=== PATIENT | male | born 1980 | race Caucasian/White ===

== ENCOUNTER 2022-10-12 06:56 | Day surgery (SDC) | payer OTHER, SELFPAY ==
[2022-10-12] VITALS (9 sets, daily range): BP systolic 108–169; BP diastolic 56–112; PULSE 86–93; RESP 16–22; TEMP 36.2–36.6; O2SAT 91–99; BMI 50.8
[2022-10-12 07:07] LABS: Basophils Absolute Auto 0.1 10^3/uL (0.0-0.1); Basophils Percent Auto 0.8 % (0.2-2.0); Eosinophils Absolute Auto 0.3 10^3/uL (0.0-0.7); Eosinophils Percent Auto 3.4 % (0.9-7.0); Hematocrit 40.6 % (42.0-54.0); Hemoglobin 13.5 g/dL (14.0-18.0); Immature Granulocytes Abs Auto 0.05 10^3/uL (0.00-0.03); Immature Granulocytes Pct Auto 0.7 % (0.0-0.5); Lymphocytes Absolute Auto 1.7 10^3/uL (1.2-3.8); Lymphocytes Percent Auto 21.9 % (20.5-60.0); Mean Corpuscular HGB Conc 33.3 g/dL (29.9-35.2); Mean Corpuscular Volume 93.3 fL (80.0-94.0); Monocytes Absolute Auto 0.6 10^3/uL (0.3-0.8); Monocytes Percent Auto 7.3 % (1.7-12.0); Neutrophils Absolute Auto 5.1 10^3/uL (1.4-6.5); Neutrophils Percent Auto 65.9 % (43.0-75.0); Platelet Count 225 10^3/uL (150-450); Red Blood Count 4.35 10^6/uL (4.70-6.10); Red Cell Distribution Width 13.1 % (11.0-15.0); White Blood Count 7.7 10^3/uL (4.0-11.0)
[2022-10-12 07:37] LABS: Glucometer 223 mg/dL (74-106)
[2022-10-12] MEDS: INSULIN ASPART 300 UNIT/3 ML PEN SUBQ (08:11)
[2022-10-12] MEDS: CEFAZOLIN SODIUM/DEXTROSE,ISO 2 GM/50 ML PIGGYBACK IV (08:14)
[2022-10-12] MEDS: LACTATED RINGER'S SOLUTION 1,000 ML 50 ML IV ×2 (08:14→10:46)
--- NOTE | 2022-10-12 10:21 | XR_ITS ---
The [address] [address] Patient Name: JANETH MCKEON MRN: [facility]:[id number] date: 1980 Sex: M Assigned Patient Location: [facility] Current Patient Location: Accession/Order Number: [id number] Exam Date: 10/12/2022 11:15 Report Date: 10/12/2022 15:30 At the request of: KAYLA YEBOAH Procedure: XR foot LT min 3V PROCEDURE: XR foot LT min 3V HISTORY: post-op COMPARISON: XR foot 10/12/2022 intraoperative images, 10/06/2022. FINDINGS: BONES:Mechanical fusion of the first metatarsophalangeal joint via dorsal plate and screws. No hardware fracture or loosening. No acute bone fracture or dislocation. Remote traumatic changes of the second distal phalanx. SOFT TISSUES:Dorsal medial soft tissue swelling and subcutaneous air consistent with post surgery. EFFUSION:None visible. OTHER: Negative. IMPRESSION: 1. Stable surgical changes compared to intraoperative images. Electronically authenticated by: GISSEL RUBIO Date: 10/12/2022 15:30
--- NOTE | 2022-10-12 10:33 | XR_ITS ---
[address] [address] Patient Name: JANETH MCKEON MRN: [facility]:[id number] date: 1980 Sex: M Assigned Patient Location: [facility] Current Patient Location: [facility] Accession/Order Number: [id number] Exam Date: 10/12/2022 10:33 Report Date: 10/12/2022 15:58 At the request of: NATANAEL MARAVILLA Procedure: XR foot LT 2V PROCEDURE: XR foot LT 2V HISTORY: LEFT FOOT PAIN COMPARISON: XR foot left 10/06/2022 FINDINGS: BONES:Multiple intraoperative operative spot fluoroscopic images demonstrate fusion of the first metatarsophalangeal joint via dorsal plate and screws. SOFT TISSUES:Expected intraoperative findings. EFFUSION:None visible. OTHER: Negative. IMPRESSION: 1. Mechanical fusion of the left first metatarsophalangeal joint. Electronically authenticated by: GISSEL RUBIO Date: 10/12/2022 15:58
--- NOTE | 2022-10-12 11:00 | P.ORON_ITS ---
note placed in error
--- NOTE | 2022-10-12 11:01 | P.ORON_ITS ---
Brief Operative Note Date of procedure: 10/12/22 Pre-op diagnosis: left hallux rigidus, hallux valgus, diabetic foot ulcer left great toe Post-op diagnosis: same Procedure: left 1st metatarsal phalangeal joint fusion and hallux interphalangeal joint arthroplasty, application of total contact cast and intraoperative fluoroscopic examination PROCEDURE IN DETAIL: Patient was identified in pre op and consent was reviewed. Correct side and site were identified and marked. Pre-op antibiotics were started. Patient was brought to OR suite and place on table in a supine position. General anesthesia was administered. A tourniquet was applied. Operative extremity was prepped and draped in usual sterile fashion. Formal time-out was performed and the foot/ankle were exsanguinated and tourniquet inflated. Incision created over dorsal aspect of the 1st MPJ. Bleeders coagulated. EHL protected throughout the procedure. Capsulotomy performed and McGlammry elevator inserted into 1st MPJ. Guide Pin place in 1st metatarsal head. Conical reamers used on 1st metatarsal head to remove cartilage and subchondral bone. Guide pin removed. Conical reamers used on proximal phalanx in a similar manner. 2.0 mm drill used to on each side of the joint. The site was irrigated. A stab incision was placed on the medial aspect of the hallux and blunt dissection down to the proximal phalanx base was performed. A guide wire was then used to pin the MPJ in a rectus position under fluoroscopic guidance. Position was checked both on the table and under fluoroscopy. A saw was used to contour the dorsal aspect of the 1st metatarsal and proximal phalanx to accommodate plate fixation. A 3.[address] over the fusion site and temporarily fixed. Then spray pilot holes were drilled for locking 3.5 mm screws which were measured and placed according to the manufactor's standard directions. Again position was checked under fluoroscopy as well as on the table. Temporary fixation was removed and additional screws were placed. A 3.5 mm cannulated headed screw was inserted over the previously placed guide wire accordingly. Again position of the great toe and hardware placement were checked on the table and under fluoroscopy. The incision was then extended distally and dissection allowed exposure of the interphalangeal joint. A sagittal saw was use to remove the portion of the distal phalanx within the joint. Care was taken to remove slightly more bone medially to allow for correction of great toe deformity. The surgical site was irrigated with copious amounts of sterile saline. The incision was then closed in layers. The tourniquet was deflated and a prompt hyperemic response was noted. A dry sterile dressing consisting of Xeroform on the incisions followed by 4 x 4 gauze, ABDs, and Kerlix were applied. stockinette was applied along with felt padding which was used to pad all bony prominences. Then a total contact cast was applied accordingly using the TCC-EZ system. The foot and ankle were held in neutral position while the cast dried. FINDINGS: severe degenerative changes of the 1st metatarsophalangeal joint was noted. Bone quality was relatively soft and consistent with osteopenia but there is no sign of infection. Valgus deformity of the great toe centered at the interphalangeal joint. Ulceration noted on the plantar medial aspect of the great toe full-thicknessinfection and no deep soft tissue or bone exposure. POSTOPERATIVE PLAN: Discharge home under family's care Post op instructions provided verbally and written prescription(s) were placed in chart partial protected weightbearing in a cast for six weeks Follow-up in 1 week Implants: Medline 3.5 mm 1st MTPJ plate & 3.5 mm interfrag Anesthesia: other (General & regional) Surgeon: Jesus Feldman Outsole Compressor: Gunner Tyler Estimated blood loss (mL): 10 Condition: stable Disposition: PACU Preoperative Details Surgery: left 1st metatarsal phalangeal joint fusion & IPJ arthroplasty Reason for procedure: patient is a 42-year-old male with type 2 diabetes, foot ulcer, neuropathy and history of nontraumatic amputation. He has been treated with local wound care for a full-thickness ulceration on his left great toe for several months now and has not seen much progress. He has had prior cheilectomy of the 1st metatarsal phalangeal joint and arthroplasty of the IPJ for wound a dislocation previously. He did well after that surgery and the wound ultimately healed however recurred 3+ months ago. Recent x-ray showed significant degenerative changes of the 1st metatarsophalangeal joint and deformity at the interphalangeal joint. Due to his failure to respond to local wound care and he wished to proceed with surgical intervention. He was educated on all potential risks and benefits particularly potential complications include but not limited to infection, nonunion, delayed union, malunion, pain, bleeding, recurrent ulceration, need for additional surgery. Patient is at high risk of amputation and complication especially given that he has an existing wound and his diabetes is not well controlled. Surgeon: Jesus Feldman Date of surgery: 10/12/22 Location: left 1st metatarsal phalangeal joint and interphalangeal joint Current medication(s): reviewed, see home medication list Use of anticoagulation agents: No Patient history: Reports diabetes
[2022-10-12 11:02] LABS: Glucometer 219 mg/dL (74-106)
== END 2022-10-12 12:12 | disposition home or self-care (01) ==
PROVIDERS: PCP Family Medicine; Visit Provider Podiatrist Foot & Ankle Surgery
PROC: (CPT 28289; principal; 2022-10-12 08:35)
DX: M20.22 Hallux rigidus, left foot (principal); M20.12 Hallux valgus (acquired), left foot; M85.88 Other specified disorders of bone density and structure, other site; I10 Essential (primary) hypertension; E78.00 Pure hypercholesterolemia, unspecified; E11.621 Type 2 diabetes mellitus with foot ulcer; L97.522 Non-pressure chronic ulcer of other part of left foot with fat layer exposed; M21.42 Flat foot [pes planus] (acquired), left foot; Z89.421 Acquired absence of other right toe(s); Z79.82 Long term (current) use of aspirin; Z79.4 Long term (current) use of insulin; Z79.84 Long term (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 oral hypoglycemic drugs; Z79.899 Other long term (current) drug therapy
CPT/HCPCS: 28289; 28750; 36415; 73620; 73630; 76000; 82948; 85025; C1713; J2704

== ENCOUNTER 2022-10-19 12:52 | Outpatient (OUT) | payer OTHER, SELFPAY | END 2022-10-19 12:53 | LOC: WC 12:52 | PROVIDERS: PCP Family Medicine; Visit Provider Physician Assistant | DX: E11.621 Type 2 diabetes mellitus with foot ulcer (principal); L97.421 Non-pressure chronic ulcer of left heel and midfoot limited to breakdown of skin; L97.522 Non-pressure chronic ulcer of other part of left foot with fat layer exposed; E11.40 Type 2 diabetes mellitus with diabetic neuropathy, unspecified; L60.3 Nail dystrophy; L60.8 Other nail disorders | CPT/HCPCS: 29445 ==

== ENCOUNTER 2022-10-26 11:11 | Outpatient (OUT) | payer OTHER, SELFPAY | END 2022-10-26 11:12 | disposition home or self-care (01) | LOC: WC 11:11 | PROVIDERS: PCP Family Medicine; Visit Provider Podiatrist Foot & Ankle Surgery | DX: E11.621 Type 2 diabetes mellitus with foot ulcer (principal); L97.522 Non-pressure chronic ulcer of other part of left foot with fat layer exposed | CPT/HCPCS: 29445 ==

== ENCOUNTER 2022-11-03 10:10 | Outpatient (OUT) | payer OTHER, SELFPAY | END 2022-11-03 10:11 | disposition home or self-care (01) | LOC: WC 10:10 | PROVIDERS: PCP Family Medicine; Visit Provider Podiatrist Foot & Ankle Surgery | DX: E11.621 Type 2 diabetes mellitus with foot ulcer (principal); L97.522 Non-pressure chronic ulcer of other part of left foot with fat layer exposed; L97.412 Non-pressure chronic ulcer of right heel and midfoot with fat layer exposed; L97.421 Non-pressure chronic ulcer of left heel and midfoot limited to breakdown of skin; E11.40 Type 2 diabetes mellitus with diabetic neuropathy, unspecified; E11.65 Type 2 diabetes mellitus with hyperglycemia; M20.20 Hallux rigidus, unspecified foot; I10 Essential (primary) hypertension; L60.3 Nail dystrophy; L60.8 Other nail disorders; M21.42 Flat foot [pes planus] (acquired), left foot; E78.01 Familial hypercholesterolemia; E66.01 Morbid (severe) obesity due to excess calories | CPT/HCPCS: 11042 ==

== ENCOUNTER 2022-11-17 10:47 | Outpatient (OUT) | payer OTHER, SELFPAY ==
--- NOTE | 2022-11-17 11:14 | XR_ITS ---
[address] [address] Patient Name: JANETH MCKEON MRN: [id number] date: 1980 Sex: M Assigned Patient Location: Current Patient Location: Accession/Order Number: [id number] Exam Date: 11/17/2022 11:14 Report Date: 11/17/2022 11:48 At the request of: NATANAEL MARAVILLA Procedure: XR foot LT min 3V PROCEDURE: XR foot LT min 3V HISTORY: LEFT FOOT PAIN COMPARISON: XR foot left 10/12/2022 FINDINGS: BONES:Mechanical fusion of the first metatarsophalangeal joint via dorsal plate and screws; no evidence of hardware fracture loosening. Lateral subluxation of the first distal metatarsal relation to the proximal metatarsal. Osseous destruction or posttraumatic changes of the second toe distal phalanx; unchanged. Complete loss of the plantar arch. Moderate degenerative joint disease of the midfoot. SOFT TISSUES:Mild dorsal soft tissue swelling. EFFUSION:None visible. OTHER: Negative. XR/XR foot LT min 3V IMPRESSION: 1. Stable surgical changes without evidence of hardware failure or change in alignment. 2. Marked pes planus. 3. Stable degenerative or posttraumatic changes. Electronically authenticated by: GISSEL RUBIO Date: 11/17/2022 11:48
== END 2022-11-17 10:48 | disposition home or self-care (01) ==
LOC: WC 10:48
PROVIDERS: PCP Family Medicine; Visit Provider Podiatrist Foot & Ankle Surgery
DX: M79.672 Pain in left foot (principal); E11.621 Type 2 diabetes mellitus with foot ulcer; L97.412 Non-pressure chronic ulcer of right heel and midfoot with fat layer exposed
CPT/HCPCS: 11042; 73630

== ENCOUNTER 2022-12-01 10:17 | Outpatient (OUT) | payer OTHER, SELFPAY ==
--- NOTE | 2022-12-01 10:18 | XR_ITS ---
The [address] [address] Patient Name: JANETH MCKEON MRN: [id number] date: 1980 Sex: M Assigned Patient Location: Current Patient Location: Accession/Order Number: [id number] Exam Date: 12/01/2022 10:18 Report Date: 12/01/2022 13:39 At the request of: NATANAEL MARAVILLA Procedure: XR foot LT min 3V EXAM: XR foot LT min 3V HISTORY: LEFT FOOT PAIN COMPARISON: 11/17/2022. TECHNIQUE: 3 views left foot. FINDINGS: No significant change and deformity at the second distal phalanx with similar enhancement of fragments. Remote ORIF of the first MTP joint with intact hardware and no appreciable fusion at this time. Resection arthroplasty of the first IP joint. Pes planus and relatively severe degenerative change of the midfoot. Dorsal calcaneal enthesophytes. Degenerative change of the tibiotalar and subtalar joints. Vascular calcifications. Unchanged soft tissue edema especially at the dorsum of the foot. XR/XR foot LT min 3V IMPRESSION: Similar appearance to prior. No interval acute process. Electronically authenticated by: NEDA GAYTAN Date: 12/01/2022 13:39
== END 2022-12-01 10:18 | disposition home or self-care (01) ==
LOC: WC 10:17
PROVIDERS: PCP Family Medicine; Visit Provider Podiatrist Foot & Ankle Surgery
DX: M79.672 Pain in left foot (principal); E11.621 Type 2 diabetes mellitus with foot ulcer; L97.412 Non-pressure chronic ulcer of right heel and midfoot with fat layer exposed
CPT/HCPCS: 11042; 73630

== ENCOUNTER 2022-12-15 10:14 | Outpatient (OUT) | payer OTHER, SELFPAY | END 2022-12-15 10:15 | disposition home or self-care (01) | LOC: WC 10:14 | PROVIDERS: PCP Family Medicine; Visit Provider Podiatrist Foot & Ankle Surgery | DX: M20.20 Hallux rigidus, unspecified foot (principal); E11.621 Type 2 diabetes mellitus with foot ulcer; L97.412 Non-pressure chronic ulcer of right heel and midfoot with fat layer exposed | CPT/HCPCS: G0463 ==

== ENCOUNTER 2023-01-04 13:46 | Outpatient (OUT) | payer OTHER, SELFPAY ==
--- NOTE | 2023-01-04 | XR_ITS ---
The [address] [address] Patient Name: JANETH MCKEON MRN: [id number] date: 1980 Sex: M Assigned Patient Location: Current Patient Location: Accession/Order Number: [id number] Exam Date: 01/04/2023 14:00 Report Date: 01/05/2023 06:32 At the request of: MARTELL NAVAS Procedure: XR foot LT min 3V PROCEDURE: XR foot LT min 3V HISTORY: LEFT FOOT PAIN ; wound to fourth toe; no known injury COMPARISON: XR foot left 12/01/2022 FINDINGS: BONES:Mechanical fusion of the first metatarsophalangeal joint via dorsal plate and screws; no appreciable hardware fracture or loosening. Stable fracture versus degenerative changes of the second distal phalanx. Moderate degenerative changes of the first distal interphalangeal joint. Complete loss of plantar arch. SOFT TISSUES:Soft tissue swelling of the fourth toe. No visible skin surface defect. EFFUSION:None visible. OTHER: Negative. XR/XR foot LT min 3V IMPRESSION: 1. Soft tissue swelling of fourth toe consistent with patient history. No evidence of osteomyelitis. 2. Stable surgical, posttraumatic, and degenerative changes. Electronically authenticated by: GISSEL RUBIO Date: 01/05/2023 06:32
== END 2023-01-04 13:47 | disposition home or self-care (01) ==
LOC: WC 13:46
PROVIDERS: PCP Family Medicine; Visit Provider Physician Assistant
DX: M79.672 Pain in left foot (principal); E11.621 Type 2 diabetes mellitus with foot ulcer; L97.521 Non-pressure chronic ulcer of other part of left foot limited to breakdown of skin; L97.412 Non-pressure chronic ulcer of right heel and midfoot with fat layer exposed
CPT/HCPCS: 11042; 73630

== ENCOUNTER 2023-01-12 14:46 | Outpatient (OUT) | payer OTHER, SELFPAY | END 2023-01-12 14:47 | disposition home or self-care (01) | LOC: WC 14:46 | PROVIDERS: PCP Family Medicine; Visit Provider Podiatrist Foot & Ankle Surgery | DX: E11.621 Type 2 diabetes mellitus with foot ulcer (principal); L97.521 Non-pressure chronic ulcer of other part of left foot limited to breakdown of skin | CPT/HCPCS: 11042 ==

== ENCOUNTER 2023-01-25 10:09 | Outpatient (OUT) | payer OTHER, SELFPAY | END 2023-01-25 10:10 | disposition home or self-care (01) | LOC: WC 10:10 | PROVIDERS: PCP Family Medicine; Visit Provider Physician Assistant | DX: E11.621 Type 2 diabetes mellitus with foot ulcer (principal); L97.412 Non-pressure chronic ulcer of right heel and midfoot with fat layer exposed; L97.521 Non-pressure chronic ulcer of other part of left foot limited to breakdown of skin; L97.522 Non-pressure chronic ulcer of other part of left foot with fat layer exposed | CPT/HCPCS: G0463 ==

== ENCOUNTER 2023-01-29 09:46 | Outpatient (OUT) | payer OTHER, SELFPAY | END 2023-01-29 09:47 | disposition home or self-care (01) | LOC: WC 09:46 | PROVIDERS: PCP Family Medicine; Visit Provider Podiatrist Foot & Ankle Surgery | DX: E11.621 Type 2 diabetes mellitus with foot ulcer (principal); L97.521 Non-pressure chronic ulcer of other part of left foot limited to breakdown of skin; L97.412 Non-pressure chronic ulcer of right heel and midfoot with fat layer exposed | CPT/HCPCS: 11042 ==

== ENCOUNTER 2023-02-12 11:34 | Outpatient (OUT) | payer OTHER, SELFPAY | END 2023-02-12 11:35 | disposition home or self-care (01) | LOC: WC 11:34 | PROVIDERS: PCP Family Medicine; Visit Provider Podiatrist Foot & Ankle Surgery | DX: E11.621 Type 2 diabetes mellitus with foot ulcer (principal); L97.522 Non-pressure chronic ulcer of other part of left foot with fat layer exposed | CPT/HCPCS: G0463 ==

== ENCOUNTER 2023-02-19 09:58 | Outpatient (OUT) | payer OTHER, SELFPAY ==
--- NOTE | 2023-02-19 | XR_ITS ---
[address] [address] Patient Name: JANETH MCKEON MRN: [id number] date: 1980 Sex: M Assigned Patient Location: Current Patient Location: Accession/Order Number: [id number] Exam Date: 02/19/2023 10:00 Report Date: 02/19/2023 14:55 At the request of: NATANAEL MARAVILLA Procedure: XR foot LT min 3V PROCEDURE: XR foot LT min 3V HISTORY: LEFT FOOT PAIN COMPARISON: XR foot left 12/27/2022 FINDINGS: BONES:Mechanical fusion of the first metatarsophalangeal joint via dorsal plate and screws. Degenerative changes of the first interphalangeal joint and second distal interphalangeal joint. Complete loss of plantar arch. SOFT TISSUES:Soft tissue swelling surrounding the ankle. Mild soft tissue swelling of fourth toe. No radiopaque foreign body. EFFUSION:None visible. OTHER: Negative. XR/XR foot LT min 3V IMPRESSION: 1. No radiographic findings to suggest osteomyelitis. 2. Stable surgical changes and degenerative changes. Electronically authenticated by: GISSEL RUBIO Date: 02/19/2023 14:55
== END 2023-02-19 09:59 | disposition home or self-care (01) ==
LOC: WC 09:58
PROVIDERS: PCP Family Medicine; Visit Provider Podiatrist Foot & Ankle Surgery
DX: E11.621 Type 2 diabetes mellitus with foot ulcer (principal); L97.521 Non-pressure chronic ulcer of other part of left foot limited to breakdown of skin
CPT/HCPCS: 11042; 73630

== ENCOUNTER 2023-03-08 12:45 | Outpatient (REF) | payer OTHER, SELFPAY | END 2023-03-08 12:46 | disposition home or self-care (01) | LOC: LAB 12:45 | PROVIDERS: PCP Family Medicine; Visit Provider Physician Assistant | DX: S91.102A Unspecified open wound of left great toe without damage to nail, initial encounter (principal); S91.105A Unspecified open wound of left lesser toe(s) without damage to nail, initial encounter | CPT/HCPCS: 87070; 87106; 87150; 87186 ==

== ENCOUNTER 2023-03-08 13:56 | Outpatient (OUT) | payer OTHER, SELFPAY | END 2023-03-08 13:57 | disposition home or self-care (01) | LOC: WC 13:56 | PROVIDERS: PCP Family Medicine; Visit Provider Physician Assistant | DX: E11.621 Type 2 diabetes mellitus with foot ulcer (principal); L97.522 Non-pressure chronic ulcer of other part of left foot with fat layer exposed; L97.528 Non-pressure chronic ulcer of other part of left foot with other specified severity | CPT/HCPCS: 11043 ==

== ENCOUNTER 2023-03-09 09:45 | Outpatient (OUT) | payer OTHER, SELFPAY | END 2023-03-09 09:46 | disposition home or self-care (01) | LOC: WC 09:45 | PROVIDERS: PCP Family Medicine; Visit Provider Podiatrist Foot & Ankle Surgery | DX: E11.621 Type 2 diabetes mellitus with foot ulcer (principal); L97.522 Non-pressure chronic ulcer of other part of left foot with fat layer exposed; L97.528 Non-pressure chronic ulcer of other part of left foot with other specified severity | CPT/HCPCS: G0463 ==

== ENCOUNTER 2023-03-16 14:43 | Outpatient (OUT) | payer OTHER, SELFPAY | END 2023-03-16 14:44 | disposition home or self-care (01) | LOC: WC 14:43 | PROVIDERS: PCP Family Medicine; Visit Provider Podiatrist Foot & Ankle Surgery | DX: E11.621 Type 2 diabetes mellitus with foot ulcer (principal); L97.528 Non-pressure chronic ulcer of other part of left foot with other specified severity | CPT/HCPCS: 11042 ==

== ENCOUNTER 2023-04-06 09:45 | Outpatient (OUT) | payer OTHER, SELFPAY | END 2023-04-06 09:46 | disposition home or self-care (01) | LOC: WC 09:45 | PROVIDERS: PCP Family Medicine; Visit Provider Podiatrist Foot & Ankle Surgery | DX: E11.621 Type 2 diabetes mellitus with foot ulcer (principal); L97.528 Non-pressure chronic ulcer of other part of left foot with other specified severity | CPT/HCPCS: 11042 ==

== ENCOUNTER 2023-04-28 09:18 | Outpatient (OUT) | payer OTHER, SELFPAY ==
--- NOTE | 2023-04-28 | XR_ITS ---
The [address] [address] Patient Name: JANETH MCKEON MRN: [id number] date: 1980 Sex: M Assigned Patient Location: Current Patient Location: Accession/Order Number: [id number] Exam Date: 04/28/2023 10:10 Report Date: 04/28/2023 14:26 At the request of: NATANAEL MARAVILLA Procedure: XR foot LT min 3V PROCEDURE: XR foot LT min 3V DATE: 04/28/2023 9:10 AM [employer] COMPARISONS: 02/19/2023 CLINICAL INDICATION: LEFT FOOT BLISTER FINDINGS: There is no evidence of fractures or other acute osseous abnormalities. Surgical fixation hardware is noted of the first metatarsal phalangeal joint, stable. There is widening of the first interphalangeal joint. There is some valgus deformity at this joint space. This is stable in appearance. There is some soft tissue swelling about this first toe. There is slight deformity of the proximal and the lateral aspect of this first proximal phalanx but this was also seen on previous exam. It could represent old or subacute fracture. There is some soft tissue swelling tip of the fourth toe. There is no evidence of erosive osseous lesion or destructive osseous process on these images. There is some deformity of the tip of the second toe stable from previous exam. It appears to represent distal interphalangeal degenerative changes. There is pes planus deformity. There is spurring of the posterior inferior os calcis and of the posterior os calcis, stable. XR/XR foot LT min 3V IMPRESSION: Findings as discussed above. There is no evidence of erosive osseous lesion or destructive osseous process to suggest osteomyelitis on these images. Electronically authenticated by: FERN SOSA Date: 04/28/2023 14:26
--- OUTSIDE RECORDS SUMMARY | 2023-04-28 09:38 | XMS_ITS | CCD ---
Author Name Unknown Address [address] [place] [address] Organization [facility] Care Team Providers Care Employment Appeals Examiner Name Role Phone Link Ortega Unavailable NATANAEL FELDMAN Attending Unavailable NATANAEL FELDMAN Admitting Unavailable WONDERLY, DR NATALIE Lozada Primary Care Unavailable NATANAEL FELDMAN Attending Unavailable NATANAEL FELDMAN Admitting Unavailable WONDERLY, DR NATALIE Lozada Primary Care Unavailable NATANAEL FELDMAN Attending Unavailable NATANAEL FELDMAN Admitting Unavailable WONDERLY, DR NATALIE Lozada Primary Care Unavailable NATANAEL FELDMAN Attending Unavailable NATANAEL FELDMAN Admitting Unavailable WONDERLY, DR NATALIE Lozada Primary Care Unavailable NATANAEL FELDMAN Attending Unavailable NATANAEL FELDMAN Admitting Unavailable WONDERLY, DR NATALIE Lozada Primary Care Unavailable NATANAEL FELDMAN Attending Unavailable NATANAEL FELDMAN Admitting Unavailable WONDERLY, DR NATALIE Lozada Primary Care Unavailable NATANAEL FELDMAN Attending Unavailable NATANAEL FELDMAN Admitting Unavailable NATANAEL FELDMAN Consulting Unavailable WONDERLY, DR NATALIE Lozada Primary Care Unavailable JOY DOBBS Consulting Unavailable NATANAEL FELDMAN Attending Unavailable NATANAEL FELDMAN Consulting Unavailable NATANAEL FELDMAN Admitting Unavailable WONDERLY, DR NATALIE Lozada Primary Care Unavailable FERN SOSA Consulting Unavailable WONDERLY, DR NATALIE Lozada Primary Care Unavailable MARTELL NAVAS Admitting Unavailable MARTELL NAVAS Attending Unavailable MARTELL NAVAS Attending Unavailable WONDERLY, DR NATALIE Lozada Primary Care Unavailable MARTELL NAVAS Admitting Unavailable NATANAEL FELDMAN Attending Unavailable NATANAEL FELDMAN Admitting Unavailable WONDERLY, DR NATALIE Lozada Primary Care Unavailable NATANAEL FELDMAN Attending Unavailable NATANAEL FELDMAN Admitting Unavailable RAMIRO, DR GISSEL Kohli Consulting Unavailable WONDERLY, DR NATALIE Lozada Primary Care Unavailable NATANAEL FELDMAN Consulting Unavailable NATANAEL FELDMAN Attending Unavailable WONDERLY, DR NATALIE Lozada Primary Care Unavailable HIGHLANDER, NATANAEL Marks Admitting Unavailable HIGHLANDER, NATANAEL Marks Attending Unavailable HIGHLANDER, NATANAEL Marks Consulting Unavailable WONDERLY, DR NATALIE Lozada Primary Care Unavailable HIGHLANDER, NATANAEL Marks Admitting Unavailable RAFAEL WHITAKER Consulting Unavailable HIGHLANDER, NATANAEL Marks Attending Unavailable WONDERLY, DR NATALIE Lozada Primary Care Unavailable HIGHLANDER, NATANAEL Marks Admitting Unavailable HIGHLANDER, NATANAEL Marks Attending Unavailable WONDERLY, DR NATALIE Lozada Primary Care Unavailable HIGHLANDER, NATANAEL Marks Admitting Unavailable HIGHLANDER, NATANAEL Marks Attending Unavailable WONDERLY, DR NATALIE Lozada Primary Care Unavailable HIGHLANDER, NATANAEL Marks Admitting Unavailable HIGHLANDER, NATANAEL Marks Admitting Unavailable HIGHLANDER, NATANAEL Marks Attending Unavailable WONDERLY, DR NATALIE Lozada Primary Care Unavailable HIGHLANDER, NATANAEL Marks Attending Unavailable HIGHLANDER, NATANAEL Marks Admitting Unavailable WONDERLY, DR NATALIE Lozada Primary Care Unavailable HIGHLANDER, NATANAEL Marks Attending Unavailable WONDERLY, DR NATALIE Lozada Primary Care Unavailable HIGHLANDER, NATANAEL Marks Admitting Unavailable HIGHLANDER, NATANAEL Marks Attending Unavailable WONDERLY, DR NATALIE Lozada Primary Care Unavailable HIGHLANDER, NATANAEL Marks Admitting Unavailable HIGHLANDER, NATANAEL Marks Attending Unavailable WONDERLY, DR NATALIE Lozada Primary Care Unavailable HIGHLANDER, NATANAEL Marks Admitting Unavailable HIGHLANDER, NATANAEL Marks Attending Unavailable WONDERLY, DR NATALIE Lozada Primary Care Unavailable HIGHLANDER, NATANAEL Marks Admitting Unavailable HIGHLANDER, NATANAEL Marks Attending Unavailable HIGHLANDER, NATANAEL Marks Admitting Unavailable WONDERLY, DR NATALIE Lozada Primary Care Unavailable HIGHLANDER, NATANAEL Marks Attending Unavailable HIGHLANDER, NATANAEL Marks Admitting Unavailable WONDERLY, DR NATALIE Lozada Primary Care Unavailable HIGHLANDER, NATANAEL Marks Attending Unavailable HIGHLANDER, NATANAEL Marks Admitting Unavailable WONDERLY, DR NATALIE Lozada Primary Care Unavailable HIGHLANDER, NATANAEL Marks Attending Unavailable HIGHLANDER, NATANAEL Marks Admitting Unavailable WONDERLY, DR NATALIE Lozada Primary Care Unavailable HIGHLANDER, NATANAEL Marks Attending Unavailable HIGHLANDER, NATANAEL Marks Admitting Unavailable WONDERLY, DR NATALIE Lozada Primary Care Unavailable HIGHLANDER, NATANAEL Marks Attending Unavailable HIGHLANDER, NATANAEL Marks Admitting Unavailable WONDERLY, DR NATALIE Lozada Primary Care Unavailable HIGHLANDER, NATANAEL Marks Attending Unavailable HIGHLANDER, NATANAEL Marks Admitting Unavailable WONDERLY, DR NATALIE Lozada Primary Care Unavailable HIGHLANDER, NATANAEL Marks Attending Unavailable HIGHLANDER, NATANAEL Marks Admitting Unavailable WONDERLY, DR NATALIE Lozada Primary Care Unavailable HIGHLANDER, NATANAEL Marks Attending Unavailable HIGHLANDER, NATANAEL Marks Admitting Unavailable WONDERLY, DR NATALIE Lozada Primary Care Unavailable HIGHLANDER, NATANAEL Makrs Attending Unavailable HIGHLANDER, NATANAEL Marks Admitting Unavailable WONDERLY, DR NATALIE Lozada Primary Care Unavailable MICHELLEANDER, NATANAEL Marks Attending Unavailable HIGHLANDER, NATANAEL Marks Admitting Unavailable WONDERLY, DR NATALIE Lozada Primary Care Unavailable HIGHLANDER, NATANAEL Marks Attending Unavailable HIGHLANDER, NATANAEL Marks Admitting Unavailable WONDERLY, DR NATALIE Lozada Primary Care Unavailable HIGHLANDER, NATANAEL Marks Attending Unavailable HIGHLANDER, NATANAEL Marks Admitting Unavailable WONDERLY, DR NATALIE Lozada Primary Care Unavailable HIGHLANDER, NATANAEL Marks Attending Unavailable WONDERLY, DR NATALIE Lozada Primary Care Unavailable HIGHLANDER, NATANAEL Marks Admitting Unavailable HIGHLANDER, NATANAEL Marks Attending Unavailable HIGHLANDER, NATANAEL Marks Admitting Unavailable WEST, DR FRANCO Adamson Consulting Unavailable WONDERLY, DR NATALIE Lozada Primary Care Unavailable HIGHLANDER, NATANAEL Marks Consulting Unavailable HIGHLANDER, NATANAEL Marks Attending Unavailable WONDERLY, DR NATALIE Lozada Primary Care Unavailable HIGHLANDER, NATANAEL Marks Admitting Unavailable HIGHLANDER, NATANAEL Marks Attending Unavailable HIGHLANDER, NATANAEL Marks Admitting Unavailable WONDERLY, DR NATALIE Lozada Primary Care Unavailable HIGHLANDER, NATANAEL Marks Attending Unavailable WONDERLY, DR NATALIE Lozada Primary Care Unavailable HIGHLANDER, NATANAEL Marks Admitting Unavailable Wonderly, Natalie Primary Care Unavailable Damon Claros Attending Unavailable Damon Claros Admitting Unavailable GLENIS HINSON Attending Unavailable Medications Current Medications Medication Drug Class(es) Dates Sig (Normalized) Sig (Original) 0.25 MG, 0.5 MG Dose 3 ML semaglutide 0.68 MG/ML Pen Injector [Ozempic] (1 source) Start: 01-04-2023 inject 0.5 mg by subcutaneous injection every week Ozempic (0.25 or 0.5 MG/DOSE) 2 MG/3ML 0.5mg Subcutaneous once weekly for 84 days Dec, Active aspirin 81 mg chewable tablet (7 sources) Platelet Aggregation Inhibitor, Nonsteroidal Anti-inflammatory Drug take 1 tablet by mouth every twenty-four hours Aspirin 81 MG 1 tablet Orally Once a day Active atorvastatin 40 mg oral tablet (7 sources) HMG-CoA Reductase Inhibitor take 1 tablet by mouth every twenty-four hours Atorvastatin Calcium 40 MG 1 tablet Orally Once a day Active ertugliflozin 15 mg oral tablet (7 sources) take 1 tablet by mouth every twenty-four hours Steglatro 15 MG 1 tablet Orally Once a day for 90 days Active insulin glargine-yfgn 100 UNT/ML Injectable Solution (2 sources) inject 44 [IU] by subcutaneous injection twice daily, then inject 100 [IU] by subcutaneous injection once daily Insulin Glargine-yfgn 100 UNIT/ML INJECT 44 UNITS UNDER THE SKIN TWICE DAILY DIRECTED MAY TITRATE UP TO 100 UNITS PER DAY for 90 Active insulin lispro 100 unt/ml injectable solution (8 sources) Insulin Analog Insulin Lispro 1 00 UNIT/ML 1:5 carb ratio ac tid. 1:15 corrective scale ac tid (hs if >200 half dose) as directed for 90 days expect up to max 60 units/day Active Insulin Lispro 1 00 UNIT/ML 1:4 carb ratio ac tid. 1:15 corrective scale ac tid (hs if >200 half dose) as directed for 90 days (expect up to 60 units/day) Active lisinopril 20 mg oral tablet (7 sources) Angiotensin Converting Enzyme Inhibitor take 1 tablet by mouth every twenty-four hours Lisinopril 20 MG 1 tablet Orally Once a day Active metFORMIN hydrochloride 500 mg oral tablet (8 sources) Biguanide take 2 tablets by mouth every twelve hours metFORMIN HCl 500 MG 2 tablets Orally Twice a day for 90 days Active OneTouch Verio - (6 sources) Start: 02-19-20 22 OneTouch Verio - Use with One touch verio meter In Vitro 3 times per day for 90 days E11.65 Feb, Active 0.25 mg, 0.5 mg dose 1.5 ml semaglutide 1.34 mg/ml pen injector (4 sources) Start: 06-25-19 23 Ozempic (0.25 or 0.5 MG/DOSE) 2 MG/1.5ML as directed Subcutaneous once weekly for 84 days Jun, Active Semglee 100 UNIT/ML (6 sources) Semglee 100 UNIT /ML 44 units (may titrate up to 100 units per day) Subcutaneous BID for 90 days Active Semglee 100 UNIT /ML 44 units (may titrate up to 100 units per day) Subcutaneous BID for 90 days Expect up to 100 units per day Active Semglee 100 UNIT /ML 44 units (may titrate up to 100 units per day) Subcutaneous BID for 90 day(s) Active Completed/Discontinued Medications Medication Drug Class(es) Dates Sig (Normalized) Sig (Original) 3 ML semaglutide 1.34 MG/ML Pen Injector [Ozempic] (2 sources) inject 1 mL by subcutaneous injection every week Ozempic (1 MG/DOSE) 4 MG/3ML 1 ml SQ Once a week for 28 days Not-Taking cephalexin 500 mg oral capsule (2 sources) Cephalosporin Antibacterial take 1 capsule by mouth every six hours Cephalexin 500 MG 1 capsule Orally every 6 hrs Not-Taking empagliflozin 10 mg oral tablet (2 sources) Sodium-Glucose Cotransporter 2 Inhibitor take 1 tablet by mouth every twenty-four hours Jardiance 10 MG 1 tablet Orally Once a day for 30 day(s) Not-Taking Problems Active Problems Problem Classification Problem Date Documented Da te Episodic/Chronic Acquired foot deformities (2 sources) Hallux rigidus, unspecified foot; Translations: [Hallux rigidus, left foot] Onset: 05-13-2022 Chronic Acquired foot deformities (1 source) Flat foot [pes planus] (acquired), left foot; Translations: [FLAT FOOT PES PLANUS ACQ LT FOOT] Onset: 10-07-2022 Episodic Administrative/social admission (3 sources) Dietary counseling and surveillance Onset: 01-06-2022 Resolved: 01-06-2022 Episodic Chronic ulcer of skin (5 sources) Non-pressure chronic ulcer of other part of unspecified foot with unspecified severity; Translations: [Non-pressure chronic ulcer of other part of left foot with fat layer exposed] Onset: 05-25-2022 Chronic Diabetes mellitus with complications (20 sources) Hyperglycemia due to type 2 diabetes mellitus; Translations: [Type 2 diabetes mellitus with hyperglycemia] Onset: 01-06-2022 Resolved: 01-06-2022 Chronic Disorders of lipid metabolism (12 sources) Hyperlipidemia; Translations: [Hyperlipidemia, unspecified] Onset: 01-06-2022 Resolved: 01-06-2022 Chronic Essential hypertension (11 sources) Hypertensive disorder; Translations: [Essential (primary) hypertension] Onset: 01-06-2022 Resolved: 01-06-2022 Chronic Nutritional deficiencies (7 sources) Vitamin D deficiency; Translations: [Vitamin D deficiency, unspecified] Chronic Nutritional deficiencies (3 sources) Deficiency of other specified B group vitamins Onset: 01-06-2022 Resolved: 01-06-2022 Episodic Open wounds of extremities (1 source) Unspecified open wound, unspecified foot, initial encounter Episodic Other aftercare (7 sources) Long-term current use of 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; 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] Episodic Other aftercare (3 sources) 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 Onset: 01-06-2022 Resolved: 01-06-2022 Episodic Other bone disease and musculoskeletal deformities (5 sources) Acquired absence of right foot; Translations: [ACQUIRED ABSENCE OF RIGHT FOOT] Onset: 11-24-2021 Chronic Other connective tissue disease (4 sources) Pain in left foot; Translations: [PAIN IN LEFT FOOT] Onset: 10-06-2022 Episodic Other nutritional; endocrine; and metabolic disorders (7 sources) Metabolic syndrome X; Translations: [Metabolic syndrome] Chronic Other nutritional; endocrine; and metabolic disorders (14 sources) Body mass index 40+ - severely obese; Translations: [Body mass index (BMI) 50.0-59.9, adult] Chronic Other nutritional; endocrine; and metabolic disorders (1 source) Body mass index (BMI) 45.0-49.9, adult Onset: 01-06-2022 Resolved: 01-06-2022 Chronic Other nutritional; endocrine; and metabolic disorders (2 sources) Body mass index (BMI) 50.0-59.9, adult Chronic Other nutritional; endocrine; and metabolic disorders (1 source) Morbid (severe) obesity due to excess calories; Translations: [MORBID SEVERE OBES D/T EXCESS JIMMY] Onset: 07-06-2022 Chronic Other skin disorders (5 sources) Nail dystrophy; Translations: [NAIL DYSTROPHY] Onset: 11-20-2021 Episodic Past or Other Problems Problem Classification Problem Date Documented Da te Episodic/Chronic Complications of surgical procedures or medical care (5 sources) Disruption of wound, unspecified, initial encounter; Translations: [DISRUPTION WOUND UNS INITIAL ENC] Onset: 12-08-2021 Episodic Other non-traumatic joint disorders (1 source) Pain in left ankle and joints of left foot; Translations: [PAIN IN LEFT ANKLE] Onset: 06-24-2022 Episodic Other skin disorders (5 sources) Corns and callosities; Translations: [CORNS AND CALLOSITIES] Onset: 12-15-2021 Episodic Superficial injury; contusion (4 sources) Blister (nonthermal), right foot, initial encounter; Translations: [BLISTER NONTHERMAL RT FOOT INITIAL] Onset: 12-29-2021 Episodic Results Test Name Value Interpretation Reference Range Facil ity A1C HEMOGLOBINon 01-04-2023 HbA1c (Bld) [Mass fraction] 8.9 % [facility] Other Glucose - FINGER STICKon Glucose [Mass/Vol] 201 mg/dL [facility] Other HbA1c (Bld) [Mass fraction]o n 01-04-2023 A1C HEMOGLOBIN [employer] [facility] [employer] Other PROF CHEM 8 (BAS METB)on Anion gap [Moles/Vol] 14.3 mmol/L Normal [facility] Comment on above: Performed By: #### B MP #### [facility] [address] [address] [address] Lauri Todd Calcium [Mass/Vol] 9.4 mg/dL Normal 8.5-10.1 [facility] Comment on above: Performed By: #### B MP #### [facility] [address] [address] [address] Lauri Todd Chloride [Moles/Vol] 101 mmol/L Normal 98-107 [facility] Comment on above: Performed By: #### B MP #### [facility] [address] [address] [address] Lauri Todd CO2 [Moles/Vol] 26.2 mmol/L Normal 21.0-32.0 [facility] Comment on above: Performed By: #### B MP #### [facility] [address] [address] [address] Lauri Todd Creatinine [Mass/Vol] 0.90 mg/dL Normal 0.70-1.30 [facility] Comment on above: Performed By: #### B MP #### [facility] [address] [address] [address] Lauri Todd EGFR-AF CYMRO >60 Normal >=60 [facility] Comment on above: Performed By: #### B MP #### [facility] [address] [address] [address] Lauri Todd EGFR-NON AF CYMRO >60 Normal >=60 [facility] Comment on above: Performed By: #### B MP #### [facility] [address] [place], [place] [address] Dr. Lauri Todd Glucose [Mass/Vol] 146 mg/dL Critically high 74-106 [facility] Comment on above: Performed By: #### B MP #### [facility] [address] [address] [address] Lauri Todd Potassium [Moles/Vol] 4.5 mmol/L Normal 3.5-5.1 [facility] Comment on above: Performed By: #### B MP #### [facility] [address] [address] [address] Lauri Todd Sodium [Moles/Vol] 137 mmol/L Normal 136-145 [facility] Comment on above: Performed By: #### B MP #### [facility] [address] [address] [address] Lauri Todd Urea nitrogen [Mass/Vol] 16.0 mg/dL Normal 7.0-18.0 [facility] Comment on above: Performed By: #### B MP #### [facility] [address] [address] [address] Lauri Todd Urea nitrogen/Creatinine [Mass ratio] 17.8 mg/mg Normal [facility] Comment on above: Performed By: #### B MP #### [facility] [address] [address] [address] Lauri Todd A1C HEMOGLOBINon 06-25-2022 HbA1c (Bld) [Mass fraction] 8.2 % [facility] Other Glucose - FINGER STICKon Glucose [Mass/Vol] 180 mg/dL [facility] Other HbA1c (Bld) [Mass fraction]o n 06-25-2022 A1C HEMOGLOBIN [employer] Other XR FOOT LT MIN 3 VIEWSon XR FOOT LT MIN 3 VIEWS EXAM: XR ANKLE LT MIN 3 V, XR FOOT LT MIN 3 VIEWS HISTORY: Pain of left ankle joint COMPARISON: None. TECHNIQUE: Frontal, lateral, and oblique views of the left ankle/foot. FINDINGS/IMPRESSION: Mineralization: Within normal limits. Bones: No acute fractures or dislocations. Old medial malleolus avulsion fractures. Additional dysmorphic/chronically fractured appearance of the second distal phalanx, partially evaluated given overlapping lateral view. Ankle mortise appears intact. Small plantar calcaneal spur. Joints: Chronic appearing midfoot collapse, which could indicate early Charcot joint versus advanced pes planus. Additional chronic appearing moderate to moderate central and periarticular erosive changes of the first MTP and IP joints. Soft Tissues: Diffuse soft tissue prominence. Moderate Achilles enthesophyte. Electronically authenticated by: RAFAEL WHITAKER Date: 2022-05-25 11:52 Normal [facility] A1C HEMOGLOBINon 01-06-2022 HbA1c (Bld) [Mass fraction] 7 % [facility] Other Glucose - FINGER STICKon Glucose [Mass/Vol] 148 mg/dL [facility] Other HbA1c (Bld) [Mass fraction]o n 01-06-2022 A1C HEMOGLOBIN [facility] [employer] Other Basic Metabolic Panelon 04-1 Anion gap [Moles/Vol] 20 mmol/L Normal 12-20 [facility] Specialist Comment on above: Result Comment: Wade ctive 05/15/2019 reference range changed. Performed By: #### B MP #### [facility] [address], [place] [id number] Calcium [Mass/Vol] 10.0 mg/dL Normal 8.6-10.[address] [facility] Comment on above: Performed By: #### B MP #### [facility] [address], [place] [id number] Chloride [Moles/Vol] 100 mmol/L Normal 98-[address] [facility] Comment on above: Performed By: #### B MP #### [facility] [address], [place] [id number] CO2 [Moles/Vol] 22 mmol/L Normal 20-31 [facility] Comment on above: Performed By: #### B MP #### [facility] [address], [place] [id number] Creatinine [Mass/Vol] 0.8 mg/dL Normal 0.7-1.4 [facility] Super[facility] [employer] [facility] Comment on above: Performed By: #### B MP #### [facility] [address], [place] [id number] eGFRAA 129 mL/min/1.73m2 Normal >60 [facility] Specialist Comment on above: Performed By: #### B MP #### [facility] [address], [place] [id number] eGFRNAA 107 mL/min/1.73m2 Normal >60 [facility] Specialist Comment on above: Performed By: #### B MP #### [facility] [address], [place] [id number] Glucose [Mass/Vol] 140 mg/dL High 65-99 [facility] Super[facility] [employer] Comment on above: Result Comment: For FASTING Glucose --- ADA reference ranges: Normal 65-99 mg/dl Prediabetes 100-125 Diabetes >/= 126 Performed By: #### B MP #### [facility] [address], [place] [id number] Potassium [Moles/Vol] 4.3 mmol/L Normal 3.5-5.5 [facility] Super[facility] [employer] Comment on above: Performed By: #### B MP #### [facility] [address], [place] [id number] Sodium [Moles/Vol] 137 mmol/L Normal 135-146 [facility] Super[facility] [employer] Comment on above: Performed By: #### B MP #### [facility] [address], [place] [id number] Urea nitrogen [Mass/Vol] 17 mg/dL Normal 7-25 [facility] Super[facility] Comment on above: Performed By: #### B MP #### [facility] [address], [place] [id number] Vital Signs Date Time Vital Sign Value Performing Clinician Facility 01-04-2023 08:45-0400 Body height Link Ortega Other [facility] Other 01-04-2023 08:45-0400 Body mass index (BMI) [Ratio] 51.37 kg/m2 Tondra Mapus Other [facility] Other 01-04-2023 08:45-0400 Body weight 171.82 kg Tondra Mapus Other [facility] Other 01-04-2023 08:45-0400 Diastolic blood pressure 85 mm[Hg] Tondra Mapus Other [facility] Other 01-04-2023 08:45-0400 Respiratory rate 18 /min Tondra Mapus Other [facility] Other 01-04-2023 08:45-0400 SaO2% (BldA) [Mass fraction] 98 % Tondra Mapus Other [facility] Other 01-04-2023 08:45-0400 Systolic blood pressure 150 mm[Hg] Tondra Mapus Other [facility] Other 06-25-2022 09:45-0500 Body height Tondra Mapus Other [facility] Other 06-25-2022 09:45-0500 Body mass index (BMI) [Ratio] 51.14 kg/m2 Tondra Mapus Other [facility] Other 06-25-2022 09:45-0500 Body weight 171.05 kg Tondra Mapus Other [facility] Other 06-25-2022 09:45-0500 Diastolic blood pressure 80 mm[Hg] Tondra Mapus Other [facility] Other 06-25-2022 09:45-0500 Respiratory rate 18 /min Tondra Mapus Other [facility] Other 06-25-2022 09:45-0500 SaO2% (BldA) [Mass fraction] 95 % Tondra Mapus Other [facility] Other 06-25-2022 09:45-0500 Systolic blood pressure 139 mm[Hg] Tondra Mapus Other [facility] Other 01-06-2022 09:45-0400 Body height Tondra Mapus Other [facility] Other 01-06-2022 09:45-0400 Body mass index (BMI) [Ratio] 48.28 kg/m2 Tondra Mapus Other [facility] Other 01-06-2022 09:45-0400 Body weight 161.48 kg Tondra Mapus Other [facility] Other 01-06-2022 09:45-0400 Diastolic blood pressure 71 mm[Hg] Tondra Mapus Other [facility] Other 01-06-2022 09:45-0400 Respiratory rate 20 /min Tondra Mapus Other [facility] Other 01-06-2022 09:45-0400 SaO2% (BldA) [Mass fraction] 95 % Tondra Mapus Other [facility] Other 01-06-2022 09:45-0400 Systolic blood pressure 124 mm[Hg] Tondra Mapus Other [facility] Other Encounters Encounter Date Encounter Type Care Provider Facility Start: 03-24-2023 End: 03-24-2023 ambulatory GLENIS HINSON Not Available Start: 01-04-2023 (DM) Diabetes Tondra Shannon [facility] Start: 01-04-2023 End: 01-04-2023 ambulatory Natalie Hernandez [facility] Other Start: 12-21-2022 End: 12-21-2022 ambulatory Tondra Mapus Other [facility] Other Start: 12-21-2022 Telephone encounter Tondra [facility] Start: 10-12-2022 ambulatory NATANAEL FELDMAN Faci lity:[facility]1 Start: 10-06-2022 End: 10-07-2022 ambulatory NATANAEL Marks [facility] Facility:[facility] Start: 10-01-2022 Encounter for preprocedural cardiovascular examination [facility] Start: 10-01-2022 Encounter for preprocedural laboratory examination [facility] Start: 09-30-2022 End: 10-01-2022 ambulatory NATANAEL Marks [facility] Facility:[facility] Start: 09-30-2022 End: 10-01-2022 Encounter for preprocedural laboratory examination [facility] Facility:[facility] Start: 09-15-2022 End: 09-16-2022 ambulatory NATANAEL Marks [facility] Facility:[facility] Start: 09-10-2022 End: 09-10-2022 ambulatory Tondra Mapus Other [facility] Other Start: 09-10-2022 Telephone encounter Tondra Dayannaus [facility] Start: 08-24-2022 End: 08-25-2022 ambulatory NATANAEL Marks [facility] Facility:[facility]1 Start: 08-10-2022 End: 08-10-2022 ambulatory Tondra Mapus Other [facility] Other Start: 08-10-2022 Telephone encounter Tondra Dayannaus [facility] Start: 08-03-2022 End: 08-04-[address] NATALIE HERNANDEZ Facility:[facility]1 Start: 07-13-2022 End: 07-14-2022 ambulatory MARTELL ELOISE Facility:H1 Start: 06-30-2022 End: 07-01-2022 ambulatory PETER D HIGHLANDER Facility:H1 Start: 06-25-2022 (DM) Diabetes Tondra Shannon [facility] Start: 06-25-2022 End: 06-25-2022 ambulatory Tondra Dayannaus Other [facility] Other Start: 06-16-2022 End: 06-17-2022 ambulatory PETER D HIGHLANDER Facility:H1 Start: 06-08-2022 End: 06-09-2022 ambulatory PETER D HIGHLANDER Facility:H1 Start: 05-25-2022 End: 05-26-2022 ambulatory PETER D HIGHLANDER Facility:H1 Start: 05-12-2022 End: 05-13-2022 ambulatory PETER D HIGHLANDER Facility:H1 Start: 04-30-2022 End: 05-01-2022 ambulatory PETER D HIGHLANDER Facility:H1 Start: 04-24-2022 End: 04-25-2022 ambulatory PETER D HIGHLANDER Facility:H1 Start: 04-17-2022 End: 04-18-2022 ambulatory PETER D HIGHLANDER Facility:H1 Start: 04-08-2022 End: 04-09-2022 ambulatory PETER D HIGHLANDER Facility:H1 Start: 03-31-2022 End: 04-01-2022 ambulatory PETER D HIGHLANDER Facility:H1 Start: 03-23-2022 End: 03-24-2022 ambulatory PETER D HIGHLANDER Facility:[facility]1 Start: 03-16-2022 End: 03-17-2022 ambulatory PETER D HIGHLANDER Facility:[facility]1 Start: 03-09-2022 End: 03-10-2022 ambulatory PETER D HIGHLANDER Facility:H1 Start: 03-03-2022 End: 03-04-2022 ambulatory PETER D HIGHLANDER Facility:[facility]1 Start: 02-18-2022 End: 02-18-2022 ambulatory Tondra Mapus Other [facility] Other Start: 02-18-2022 Telephone encounter Link Ortega [facility] Start: 02-09-2022 End: 02-10-2022 ambulatory PETER D HIGHLANDER Facility:H1 Start: 01-26-2022 End: 01-27-2022 ambulatory PETER D HIGHLANDER Facility:[facility]1 Start: 01-13-2022 End: 01-14-2022 ambulatory PETER D HIGHLANDER Facility:[facility]1 Start: 01-06-2022 (DM) Diabetes Link Ortega [facility] Start: 01-06-2022 End: 01-06-2022 ambulatory Link Ortega Other [facility] Other Start: 12-29-2021 End: 12-30-2021 ambulatory PETER D HIGHLANDER Facility:H1 Start: 12-22-2021 End: 12-23-2021 ambulatory PETER D HIGHLANDER Facility:[facility]1 Start: 12-15-2021 End: 12-16-2021 ambulatory PETER D HIGHLANDER Facility:H1 Start: 12-08-2021 End: 12-09-2021 ambulatory PETER D HIGHLANDER Facility:[facility]1 Start: 12-01-2021 End: 12-02-2021 ambulatory PETER D HIGHLANDER Facility:H1 Start: 11-24-2021 End: 11-25-2021 ambulatory PETER D HIGHLANDER Facility:[facility]1 Start: 11-20-2021 End: 11-21-2021 ambulatory PETER D HIGHLANDER Facility:[facility]1 Start: 11-17-2021 End: 11-18-2021 ambulatory PETER D HIGHLANDER Facility:H1 Start: 11-14-2021 End: 11-15-2021 ambulatory PETER D HIGHLANDER Facility:H1 Start: 11-11-2021 End: 11-12-2021 ambulatory PETER D HIGHLANDER Facility:[facility]1 Start: 11-06-2021 End: 11-07-2021 ambulatory PETER D HIGHLANDER Facility:H1 Start: 11-03-2021 End: 11-04-2021 ambulatory PETER D HIGHLANDER Facility:H1 Start: 10-30-2021 End: 10-31-2021 ambulatory PETER D HIGHLANDER Facility:H1 Start: 10-27-2021 End: 10-28-2021 ambulatory PETER D HIGHLANDER Facility:H1 Start: 10-23-2021 End: 10-24-2021 ambulatory NATANAEL FELDMAN Facility:[facility] Start: 10-21-2021 End: 10-22-2021 ambulatory NATANAEL FELDMAN Facility:[facility]1 Start: 10-20-2021 End: 10-21-2021 ambulatory NATANAEL FELDMAN Facility:[facility]1 Payers Date Payer Category Payer Self-pay 1979 Unknown [id number] 2.16.84 [id number] 1979 Unknown [id number] .16.84 0.1.186055.3.579.2.593 1979 Unknown [id number] .16.84 0.1.126981.3.579.2.593 1979 Unknown [id number] 0.1.587770.3.579.2.593 1979 Unknown [id number] .16.84 0.1.111180.3.579.2.593 1979 Unknown [id number] .16.84 0.1.458448.3.579.2.593 1979 Unknown [id number] .16.84 0.1.614275.3.579.2.593 1979 Unknown [id number] .16.84 0.1.318518.3.579.2.593 1979 Unknown [id number] .16.84 0.1.297884.3.579.2.593 1979 Unknown [id number] .16.84 0.1.381862.3.579.2.593 1979 Unknown [id number] .16.84 0.1.820386.3.579.2.593 1979 Unknown [id number] .16.84 0.1.798177.3.579.2.593 1979 Unknown [id number] .16.84 0.1.700971.3.579.2.593 1979 Unknown [id number] 2.16.84 0.1.631879.3.579.2.593 1979 Unknown [id number] 2.16.84 0.1.082349.3.579.2.593 1979 Unknown [id number] 2.16.84 0.1.124541.3.579.2.593 1979 Unknown [id number] 2.16.84 0.1.981009.3.579.2.593 1979 Unknown [id number] 2.16.84 0.1.641472.3.579.2.593 1979 Unknown [id number] 2.16.84 0.1.702304.3.579.2.593 1979 Unknown [id number] .16.84 0.1.681023.3.579.2.593 1979 Unknown [id number] 2.16.84 0.1.570010.3.579.2.593 1979 Unknown [id number] 2.16.84 0.1.545932.3.579.2.593 1979 Unknown [id number] 2.16.84 0.1.395153.3.579.2.593 1979 Unknown [id number] 2.16.84 0.1.617472.3.579.2.593 1979 Unknown [id number] 2.16.84 0.1.561776.3.579.2.593 1979 Unknown [id number] 2.16.84 0.1.961976.3.579.2.593 1979 Unknown [id number] 2.16.84 0.1.571848.3.579.2.593 1979 Unknown [id number] .16.84 0.1.273017.3.579.2.593 1979 Unknown [id number] .16.84 0.1.504267.3.579.2.593 1979 Unknown [id number] 2.16.84 0.1.504355.3.579.2.593 1979 Unknown [id number] 2.16.84 0.1.147025.3.579.2.593 1979 Unknown [id number] 2.16.84 0.1.295202.3.579.2.593 1979 Unknown [id number] 2.16.84 0.1.680817.3.579.2.593 1979 Unknown [id number] 2.16.84 0.1.487950.3.579.2.593 1979 Unknown [id number] 2.16.84 0.1.852138.3.579.2.593 1979 Unknown [id number] 2.16.84 0.1.649733.3.579.2.593 1979 Unknown [id number] 2.16.84 0.1.021680.3.579.2.593 1979 Unknown [id number] 2.16.84 0.1.560598.3.579.2.593 1979 Unknown [id number] 2.16.84 0.1.707225.3.579.2.593 1979 Unknown [id number] 2.16.84 0.1.073640.3.579.2.593 1979 Unknown [id number] 2.16.84 0.1.826590.3.579.2.593 1979 Unknown [id number] 2.16.840. 1.454883.3.579.2.1259 1959 Unknown [id number] 2.16. 840.1.059415.19 1959 Unknown [id number] 2.16.8 40.1.133365.19 Unknown [id number] 2.16.8 40.1.365858.3.579.2.531 Social History Date Type Detail Facility Unknown if ever smoked [facility] Other Sex Assigned At Sex Assigned At Bir th [facility] Other Medical Equipment Procedure Code Equipment Code Equipment Original Text Equi pment Identifier Dates Insulin Syringe 31G X 5/16 1 ML Clinical Notes 05-10-2020 to 01-04-2023 Note Date & Type Note Facility 01-04-2023 Evaluation note Encounter Date Diagnosis Assessment Notes Dec, Type 2 diabetes mellitus with hyperglycemia (ICD-10 - E11.65) 1. Uncontrolled, a Type 2 diabetes with A1c of 8.9% 2. Blood glucose levels above target. Discussed with pt restarting ozempic reports has met his deductible and is willing to restart. Reviewed dosing ozempic dosing 0.25mg once weekly x4 weeks then 0.5mg once weekly. Recommend modify meal dosing from 1:5 5o 1:4. Reviewed with pt how to titrate basal/bolus insulin according to fasting am/ac supper/ meal to meal glucose pattern. Reviewed with pt importance of glucose control to promote wound healing. Pt verebalizes understandng. Note: Cost is prohibitive for pt to take jardiance. Steglatro is tier 2 on formulary. Reviewed with pt target fasting am/ac glucose 90/130; bedtime 120/150-180. Pt verbalizes understanding. 3. Patient is alert, oriented and receptive to making changes or counseling. Notes: Seen for an assessment of current glucose pattern, changes in treatment plan, counseling and coordination of care related to diabetes, risks, and benefits of treatment, medications, side effects. Given handouts to reinforce concepts reviewed during counseling, see scanned notes. TOPICS REVIEWED: 1. Time was spent reviewing: a. Basic concepts of diabetes, progressive beta cell , concepts of basal/bolus/lindsay ective insulin requirements. Basal: The goal is fasting blood glucose of 90-130mg. IF fasting blood glucose starts to run under 100mg 3x's/ week, decrease dose by 10%. Bolus: The goal is to hold the blood glucose level steady meal to meal. If pt. is going to have increased physical activity after a meal, decrease the schedule meal dose prior to the activity by 30-50%. If pt. skips a meal do not take this dose. Correction: The goal is to correct an elevated glucose back into the 100-150mg range b. Nutrition: Concepts of healthy diet, encouraged to decrease saturated fat in diet and increase non-starchy vegetables and fruits in diet. BMI: Pt. needs to select one small change to decrease caloric intake or increase physical activity to help decrease weight. c. Correct treatment of hypoglycemia, carry a glucose source at all times on your person, in vehicles, and at bedside. Can use glucose tablets/4, four ounces of pop or juice equal to 15 G of carbohydrate. Blood glucose should be 100 mg/dl or higher when driving. d. ADA glucose goals for age and medical complexity reviewed e. Patient questions addressed 2. Activity/exercis e: Encouraged to start any form of physical activity. Start low level and increase slowly to a minimal goal of 150 minutes/week. Limit activity to what is allowed by other issues such as cardiac, pulmonary or orthopedic restrictions. 3. Standards of care: Reminded to have an annual dilated eye exam, A1C every 3 months, urine testing for microalbumin once/year, check feet daily and report any cuts or sores that do not appear to be healing. 4. Meter: Plan to check blood glucose: Please check blood glucose levels 4 times/day. Back to back meals reveal effectiveness of bolus dosing. The blood glucose data is used to determine insulin doses and confirm symptoms for hypoglycemia and hyperglcyemia. 5. [facility] Contact office if any issues or concerns with patterns of hypoglycemia, hyperglycemia, or diabetes medication issues. 6. Prescriptions: Refill request for Lispro/ozempic 0.5mg sent to [facility] in [place] 01/04/23 7. Prescriptions will not be filled unless you are compliant with follow up appointments or have a follow up appointment scheduled as ordered by your provider. Refills should be requested at the time of your visit. Dec, Dietary counseling and surveillance (ICD-10 - Z71.3) see above Dec, Hyperlipidemia (ICD-10 - E78.5) 01/29 ldl 89 at target on statin Dec, HTN (hypertension) (ICD-10 - I10) on julissa Dec, group home current use of insulin (ICD-10 - Z79.4) Dec, Vitamin B 12 deficiency (ICD-10 - E53.8) 12/30 vit b 12 335 at target Dec, BMI 50.0-59.9, adult (ICD-10 - Z68.43) see above Dec, Wound of foot (ICD-10 - S91.309A) pt has apt scheduled with Dr. rFancia keenan [facility] Other 05-30-2023 NotePROCEDURE: XR FOOT LT MIN 3 VIEWS COMPARISON: 08/24/2022 HISTORY: Pain in left foot FINDINGS: BONES:Flattening of the plantar arch. Moderate to severe degenerative changes most significant along the first metatarsal-phalangeal, first and second distal interphalangeal joints. Bulky enthesopathic spurring of the calcaneus. Moderate degenerative changes of the midfoot and hindfoot SOFT TISSUES:Negative. No visible soft tissue swelling. EFFUSION:None visible. OTHER: Negative. IMPRESSION: Moderate to severe degenerative changes with pes planus, grossly stable Electronically authenticated by: FRANCO FRANCES Date: 2022-10-06 14:13[facility]05-04-2023 Evaluation note* Encounter Date Diagnosis Assessment Notes Treatment Notes Treatment Clinical Notes September, Type 2 diabetes mellitus with hyperglycemia (ICD-10 - E11.65) [facility] Other 04-17-2023 NotePROCEDURE: XR FOOT LT MIN 3 VIEWS DATE: 08/24/2022 8:55 AM CDT COMPARISONS: None CLINICAL INDICATION: Pain in left foot FINDINGS: There is no evidence of fractures. There is marked pes planus deformity, stable. There is evidence of moderate diffusely scattered mid and hindfoot tarsal-tarsal degenerative changes. There is also tibiotalar degenerative changes. There is no evidence of erosive osseous lesion or destructive osseous process. There is chronic deformity of the distal phalanx of the second digit, stable. There is prominent first metatarsal phalangeal and first interphalangeal degenerative change, stable. There is apex medial angulation at the first interphalangeal joint. There is also 2 to 3 mm of lateral subluxation of the first distal phalanx with respect to the first proximal phalanx. These findings are stable. IMPRESSION: Significant abnormalities of the left foot all of which are stable from 06/16/2022 . Electronically authenticated by: FERN SOSA Date: 2022-08-24 12:46[facility]02-16-2023 Evaluation note* Encounter Date Diagnosis Assessment Notes Treatment Notes Treatment Clinical Notes Jun, Type 2 diabetes mellitus with hyperglycemia (ICD-10 - E11.65) 1. Uncontrolled, a Type 2 diabetes with A1c of 8.2% 2. Blood glucose levels above target. Discussed with pt restarting ozempic, he had s/e from higher dose ozempic 1mg and concern with cost works at [employer]. Pt agreeable to starting sample ozempic 0.5mg dose- he was given sample and administered first dose 0.25mg; reviewed with pt dosing 0.25mg once weekly x4 weeks then 0.5mg once weekly. Reviewed with pt how to titrate basal/bolus insulin according to fasting am/ac supper/ meal to meal glucose pattern. Pt verebalizes understandng. Note: Cost is prohibitive for pt to take jardiance. Carolineatro is tier 2 on formulary. Reviewed with pt target fasting am/ac glucose 90/130; bedtime 120/150-180. Pt verbalizes understanding. 3. Patient is alert, oriented and receptive to making changes or counseling. Notes: Seen for an assessment of current glucose pattern, changes in treatment plan, counseling and coordination of care related to diabetes, risks, and benefits of treatment, medications, side effects. Given handouts to reinforce concepts reviewed during counseling, see scanned notes. TOPICS REVIEWED: 1. Time was spent reviewing: a. Basic concepts of diabetes, progressive beta cell , concepts of basal/bolus/correct brittney insulin requirements. Basal: The goal is fasting blood glucose of 90-130mg. IF fasting blood glucose starts to run under 100mg 3x's/ week, decrease dose by 10%. Bolus: The goal is to hold the blood glucose level steady meal to meal. If pt. is going to have increased physical activity after a meal, decrease the schedule meal dose prior to the activity by 30-50%. If pt. skips a meal do not take this dose. Correction: The goal is to correct an elevated glucose back into the 100-150mg range b. Nutrition: Concepts of healthy diet, encouraged to decrease saturated fat in diet and increase non-starchy vegetables and fruits in diet. BMI: Pt. needs to select one small change to decrease caloric intake or increase physical activity to help decrease weight. c. Correct treatment of hypoglycemia, carry a glucose source at all times on your person, in vehicles, and at bedside. Can use glucose tablets/4, four ounces of pop or juice equal to 15 G of carbohydrate. Blood glucose should be 100 mg/dl or higher when driving. d. ADA glucose goals for age and medical complexity reviewed e. Patient questions addressed 2. Activity/exercise: Encouraged to start any form of physical activity. Start low level and increase slowly to a minimal goal of 150 minutes/week. Limit activity to what is allowed by other issues such as cardiac, pulmonary or orthopedic restrictions. 3. Standards of care: Reminded to have an annual dilated eye exam, A1C every 3 months, urine testing for microalbumin once/year, check feet daily and report any cuts or sores that do not appear to be healing. 4. Meter: Plan to check blood glucose: Please check blood glucose levels 4 times/day. Back to back meals reveal effectiveness of bolus dosing. The blood glucose data is used to determine insulin doses and confirm symptoms for hypoglycemia and hyperglcyemia. 5. [facility]. Contact office if any issues or concerns with patterns of hypoglycemia, hyperglycemia, or diabetes medication issues. 6. Prescriptions: Syringes/ozempic/st eglatro sent to [facility] in [place] 06/25/22 7. Prescriptions will not be filled unless you are compliant with follow up appointments or have a follow up appointment scheduled as ordered by your provider. Refills should be requested at the time of your visit. Jun, Dietary counseling and surveillance (ICD-10 - Z71.3) see above Jun, Hyperlipidemia (ICD-10 - E78.5) 12/28 ldl 71 at target on statin Jun, HTN (hypertension) (ICD-10 - I10) on julissa Jun, group home current use of insulin (ICD-10 - Z79.4) Jun, Vitamin B 12 deficiency (ICD-10 - E53.8) 12/28 vit b 12 423 at target Jun, BMI 50.0-59.9, adult (ICD-10 - Z68.43) [facility] Other 02-07-2023 NotePROCEDURE: XR ANKLE LT MIN 3 V, XR FOOT LT MIN 3 VIEWS HISTORY: Pain of left ankle joint COMPARISON: XR left ankle and foot 05/25/2022 FINDINGS: BONES:Small degenerative osteophytes along the articular margins of tibial plafond. Complete loss of plantar arch. Marked degenerative changes the first metatarsophalangeal joint. Suspect prior resection of head of first proximal phalanx. Irregular appearance of second distal phalanx suggests remote fracture and irregular healing. SOFT TISSUES:Mild soft tissue swelling surrounding the foot. EFFUSION:None visible. OTHER: Negative. IMPRESSION: 1. Marked pes planus. 2. Stable chronic changes as detailed above. 3. No appreciable acute bone abnormality. 4. No significant osseous destruction within the midfoot to suggest neuropathic joint. Electronically authenticated by: GISSEL RUBIO Date: 2022-06-16 16:33[facility]02-07-2023 NotePROCEDURE: XR ANKLE LT MIN 3 V, XR FOOT LT MIN 3 VIEWS HISTORY: Pain of left ankle joint COMPARISON: XR left ankle and foot 05/25/2022 FINDINGS: BONES:Small degenerative osteophytes along the articular margins of tibial plafond. Complete loss of plantar arch. Marked degenerative changes the first metatarsophalangeal joint. Suspect prior resection of head of first proximal phalanx. Irregular appearance of second distal phalanx suggests remote fracture and irregular healing. SOFT TISSUES:Mild soft tissue swelling surrounding the foot. EFFUSION:None visible. OTHER: Negative. IMPRESSION: 1. Marked pes planus. 2. Stable chronic changes as detailed above. 3. No appreciable acute bone abnormality. 4. No significant osseous destruction within the midfoot to suggest neuropathic joint. Electronically authenticated by: GISSEL RUBIO Date: 2022-06-16 16:33[facility]08-30-2022 Evaluation note* Encounter Date Diagnosis Assessment Notes Treatment Notes Treatment Clinical Notes Dec, Type 2 diabetes mellitus with hyperglycemia (ICD-10 - E11.65) 1. Controlled, a Type 2 diabetes with A1c of 7% 2. Blood glucose levels improved. Note: Cost is prohibitive for pt to take ozempic/jardiance. Steglatro is tier 2 on formulary. Reviewed with pt target fasting am/ac glucose 90/130; bedtime 120/150-180. Pt verbalizes understanding. 3. Patient is alert, oriented and receptive to making changes or counseling. Notes: Seen for an assessment of current glucose pattern, changes in treatment plan, counseling and coordination of care related to diabetes, risks, and benefits of treatment, medications, side effects. Given handouts to reinforce concepts reviewed during counseling, see scanned notes. TOPICS REVIEWED: 1. Time was spent reviewing: a. Basic concepts of diabetes, progressive beta cell , concepts of basal/bolus/correct brittney insulin requirements. Basal: The goal is fasting blood glucose of 90-130mg. IF fasting blood glucose starts to run under 100mg 3x's/ week, decrease dose by 10%. Bolus: The goal is to hold the blood glucose level steady meal to meal. If pt. is going to have increased physical activity after a meal, decrease the schedule meal dose prior to the activity by 30-50%. If pt. skips a meal do not take this dose. Correction: The goal is to correct an elevated glucose back into the 100-150mg range b. Nutrition: Concepts of healthy diet, encouraged to decrease saturated fat in diet and increase non-starchy vegetables and fruits in diet. BMI: Pt. needs to select one small change to decrease caloric intake or increase physical activity to help decrease weight. c. Correct treatment of hypoglycemia, carry a glucose source at all times on your person, in vehicles, and at bedside. Can use glucose tablets/4, four ounces of pop or juice equal to 15 G of carbohydrate. Blood glucose should be 100 mg/dl or higher when driving. d. ADA glucose goals for age and medical complexity reviewed e. Patient questions addressed 2. Activity/exercise: Encouraged to start any form of physical activity. Start low level and increase slowly to a minimal goal of 150 minutes/week. Limit activity to what is allowed by other issues such as cardiac, pulmonary or orthopedic restrictions. 3. Standards of care: Reminded to have an annual dilated eye exam, A1C every 3 months, urine testing for microalbumin once/year, check feet daily and report any cuts or sores that do not appear to be healing. 4. Meter: Plan to check blood glucose: Please check blood glucose levels 4 times/day. Back to back meals reveal effectiveness of bolus dosing. The blood glucose data is used to determine insulin doses and confirm symptoms for hypoglycemia and hyperglcyemia. 5. [facility]. Contact office if any issues or concerns with patterns of hypoglycemia, hyperglycemia, or diabetes medication issues. 6. Prescriptions: Will call when needed. Dec, Dietary counseling and surveillance (ICD-10 - Z71.3) see above Dec, Hyperlipidemia (ICD-10 - E78.5) 12/28 ldl 71 at target on statin Dec, HTN (hypertension) (ICD-10 - I10) on julissa Dec, group home current use of insulin (ICD-10 - Z79.4) Dec, Vitamin B 12 deficiency (ICD-10 - E53.8) 12/28 vit b 12 423 at target Dec, BMI 45.0-49.9, adult (ICD-10 - Z68.42) 14 pound weight loss from last visit, continue with weight loss efforts [facility] Other 01-01-2021 History general Narrative - Reported* Type Description Date Medical History type II diabetes Medical History hypertension Medical History hyperlipidemia Medical History covid 05/2020 Surgical History Ulcer on left great toe X2 Surgical History Partial amputation Right great toe 01/2021 Surgical History All toes right foot amputated Hospitalization History Toe infection 2017 [facility] Other 01-01-2021 History general Narrative - Reported* Type Description Date Medical History type II diabetes Medical History hypertension Medical History hyperlipidemia Medical History covid 05/2020 Surgical History Ulcer on left great toe X2 Surgical History Partial amputation Right great toe 01/2021 Surgical History All toes right foot amputated Surgical History Left great toe corre ctive surgery with Dr. Feldman in [place] 10/2022 Hospitalization History Toe infection 2017 [facility] Other Evaluation noteNo InformationNort Quick[employer]LAUNCH Other Summary Purpose Family History No Family History Records FoundNo Family History Records FoundNo Family History Records FoundNo Family History Records Found Advance Directives No Advanced Directives Records FoundNo Advanced Directives Records FoundNo Advanced Directives Records FoundNo Advanced Directives Records Found Additional Source Comments (unrecognized sect ion and content) No Status Records FoundNo Status Records FoundNo Status Records FoundNo Status Records Found INFORMATION SOURCE (unrecogn ized section and content) DATE CREATED AUTHOR 08/27/2021 [facility] Special[facility] DATE CREATED AUTHOR AUTHOR'S ORGANIZ ATION 10/17/2022 [facility] DATE CREATED AUTHOR AUTHOR'S ORGANIZ ATION 01/04/2023 [facility] DATE CREATED AUTHOR AUTHOR'S ORGANIZ ATION 03/25/2023 [facility] dical Specialists EPIC REASON FOR VISIT (unrecogniz ed section and content) DM follow up rescheduled by pt, Type 2 IDDM apt with [facility] ROUGE MILLER, BUSHEL GIRL-C, BC-ADM, Last visit 07/01/21[facility] refill test stripsDM f/u pt rescheduled apt, Type 2 IDDM apt with [facility] ROUGE MILLER, BUSHEL GIRL-C, BC-ADM, last visit 01/06/22[facility] refill requestTKM - REFILL REQUESTTKM office notesDM f/u pt rescheduled apt, Type 2 IDDM apt with [facility] ROUGE MILLER, BUSHEL GIRL-C, BC-ADM, Last visit 06/25/22 FOR RECORDS PERTAINING TO PATIENTS WHO ARE OR HAVE BEEN ENROLLED IN A CHEMICAL DEPENDENCY/SUBSTANCEABUSE PROGRAM, SOME INFORMATION MAY BE OMITTED. This clinical summary was aggregated from multiple sources. Caution should be exercised in using it in the provision of clinical care. This summary normalizes information from multiple sources, and as a consequence, information in this document may materially change the coding, format and clinical context of patient data. In addition, data may be omitted in some cases. CLINICAL DECISIONS SHOULD BE BASED ON THE PRIMARY CLINICAL RECORDS. [employer] provides no warranty or guarantee of the accuracy or completeness of information in this document.
== END 2023-04-28 09:19 | disposition home or self-care (01) ==
LOC: WC 09:18
PROVIDERS: PCP Family Medicine; Visit Provider Podiatrist Foot & Ankle Surgery
DX: S90.822A Blister (nonthermal), left foot, initial encounter (principal)
CPT/HCPCS: 11042; 73630

== ENCOUNTER 2023-04-28 10:22 | Outpatient (OUT) | payer OTHER, SELFPAY ==
--- OUTSIDE RECORDS SUMMARY | 2023-04-28 10:32 | XMS_ITS | CCD ---
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 Lauri Todd Calcium [Mass/Vol] 9.4 mg/dL Normal 8.5-10.1 [facility] Comment on above: Performed By: #### B MP #### [facility] [address] [address] [address] Lauri Todd Chloride [Moles/Vol] 101 mmol/L Normal 98-107 [facility] Comment on above: Performed By: #### B MP #### [facility] [address] [address] [address] Lauri Todd CO2 [Moles/Vol] 26.2 mmol/L Normal 21.0-32.0 [facility] Comment on above: Performed By: #### B MP #### [facility] [address] [address] [address] Lauri Todd Creatinine [Mass/Vol] 0.90 mg/dL Normal 0.70-1.30 [facility] Comment on above: Performed By: #### B MP #### [facility] [address] [address] [address] Lauri Todd EGFR-AF BOTSWANAN >60 Normal >=60 [facility] Comment on above: Performed By: #### B MP #### [facility] [address] [address] [address] Lauri Todd EGFR-NON AF BOTSWANAN >60 Normal >=60 [facility] Comment on above: Performed By: #### B MP #### [facility] [address] [place], [place] [address] Dr. Lauri Todd Glucose [Mass/Vol] 146 mg/dL Critically high 74-106 [facility] Comment on above: Performed By: #### B MP #### [facility] [address] [address] [address] Lauri Todd Potassium [Moles/Vol] 4.5 mmol/L Normal 3.5-5.1 [facility] Comment on above: Performed By: #### B MP #### [facility] [address] [address] [address] Lauri Todd Sodium [Moles/Vol] 137 mmol/L Normal 136-145 [facility] Comment on above: Performed By: #### B MP #### [facility] [address] [address] [address] Lauri Todd Urea nitrogen [Mass/Vol] 16.0 mg/dL Normal 7.0-18.0 [facility] Comment on above: Performed By: #### B MP #### [facility] [address] [address] [address] Lauri Todd Urea nitrogen/Creatinine [Mass ratio] 17.8 mg/mg Normal [facility] Comment on above: Performed By: #### B MP #### [facility] [address] [address] [address] Lauri Todd A1C HEMOGLOBINon 06-25-2022 HbA1c (Bld) [Mass fraction] 8.2 % [employer] Other Glucose - FINGER STICKon Glucose [Mass/Vol] 180 mg/dL [employer] Other HbA1c (Bld) [Mass fraction]o n 06-25-2022 A1C HEMOGLOBIN [employer] Other XR FOOT LT MIN 3 VIEWSon [...] by: RAFAEL WHITAKER Date: 2022-05-25 11:52 Normal [facility] A1C HEMOGLOBINon 01-06-2022 HbA1c (Bld) [Mass fraction] 7 % [employer] Other Glucose - FINGER STICKon Glucose [Mass/Vol] 148 mg/dL [employer] Other HbA1c (Bld) [Mass fraction]o n 01-06-[address] [facility] Other Basic Metabolic Panelon 04-1 Anion gap [Moles/Vol] 20 mmol/L Normal 12-20 [facility] Specialist Comment on above: Result Comment: Wade ctive 05/15/2019 reference range changed. Performed By: #### B MP #### [facility] [address], [place] [id number] Calcium [Mass/Vol] 10.0 mg/dL Normal 8.6-10.2 [facility] Comment on above: Performed By: #### B MP #### [facility] [address], [place] [id number] Chloride [Moles/Vol] 100 mmol/L Normal 98-107 [facility]im [facility] Comment on above: Performed By: #### B MP #### [facility] [address], [place] [id number] CO2 [Moles/Vol] 22 mmol/L Normal 20-31 [facility] Comment on above: Performed By: #### B MP #### [facility] [address], [place] [id number] Creatinine [Mass/Vol] 0.8 mg/dL Normal 0.7-1.4 [facility] Comment on above: Performed By: #### B MP #### [facility] [address], [place] [id number] eGFRAA 129 mL/min/1.73m2 Normal >60 [facility] Specialist Comment on above: Performed By: #### B MP #### [facility] [address], [place] [id number] eGFRNAA 107 mL/min/1.73m2 Normal >60 [facility] Specialist Comment on above: Performed By: #### B MP #### [facility] [address], [place] [id number] Glucose [Mass/Vol] 140 mg/dL High 65-99 [facility] Comment on above: Result Comment: For FASTING Glucose --- ADA reference ranges: Normal 65-99 mg/dl Prediabetes 100-125 Diabetes >/= 126 Performed By: #### B MP #### [facility] [address], [place] [id number] Potassium [Moles/Vol] 4.3 mmol/L Normal 3.5-5.5 [facility] Comment on above: Performed By: #### B MP #### [facility] [address], [place] [id number] Sodium [Moles/Vol] 137 mmol/L Normal 135-146 [facility] Comment on above: Performed By: #### B MP #### [facility] [address], [place] [id number] Urea nitrogen [Mass/Vol] 17 mg/dL Normal 7-25 [facility] Comment on above: Performed By: #### B MP #### [facility] [address], [place] [id number] Vital Signs Date Time Vital Sign Value Performing Clinician Facility 01-04-2023 08:45-0400 Body height Link Ortega Other [facility] Other 01-04-2023 08:45-0400 Body mass index (BMI) [Ratio] 51.37 kg/m2 Tondra Mapus Other [facility] Other 01-04-2023 08:45-0400 Body weight 171.82 kg Tondra Mapus Other [facility] Other 01-04-2023 08:45-0400 Diastolic blood pressure 85 mm[Hg] Tondra Mapus Other [facility] Other 01-04-2023 08:45-0400 Respiratory rate 18 /min Tondra Mapus Other [facility] Other 01-04-2023 08:45-0400 SaO2% (BldA) [Mass fraction] 98 % Tondra Mapus Other [facility] Other 01-04-2023 08:45-0400 Systolic blood pressure 150 mm[Hg] Tondra Mapus Other [facility] Other 06-25-2022 09:45-0500 Body height Tondra Mapus Other [facility] Other 06-25-2022 09:45-0500 Body mass index (BMI) [Ratio] 51.14 kg/m2 Tondra Mapus Other [facility] Other 06-25-2022 09:45-0500 Body weight 171.05 kg Tondra Mapus Other [facility] Other 06-25-2022 09:45-0500 Diastolic blood pressure 80 mm[Hg] Tondra Mapus Other [facility] Other 06-25-2022 09:45-0500 Respiratory rate 18 /min Tondra Mapus Other [facility] Other 06-25-2022 09:45-0500 SaO2% (BldA) [Mass fraction] 95 % Tondra Mapus Other [facility] Other 06-25-2022 09:45-0500 Systolic blood pressure 139 mm[Hg] Tondra Mapus Other [facility] Other 01-06-2022 09:45-0400 Body height Tondra Mapus Other [facility] Other 01-06-2022 09:45-0400 Body mass index (BMI) [Ratio] 48.28 kg/m2 Tondra Mapus Other [facility] Other 01-06-2022 09:45-0400 Body weight 161.48 kg Tondra Mapus Other [facility] Other 01-06-2022 09:45-0400 Diastolic blood pressure 71 mm[Hg] Tondra Mapus Other [facility] Other 01-06-2022 09:45-0400 Respiratory rate 20 /min Tondra Mapus Other [facility] Other 01-06-2022 09:45-0400 SaO2% (BldA) [Mass fraction] 95 % Tondra Mapus Other [facility] Other 01-06-2022 09:45-0400 Systolic blood pressure 124 mm[Hg] Tondra Mapus Other [facility] Other Encounters Encounter Date Encounter Type Care Provider Facility Start: 03-24-2023 End: 03-24-2023 ambulatory GLENIS HINSON Not Available Start: 01-04-2023 (DM) Diabetes Tondra Shannon [facility] Start: 01-04-2023 End: 01-04-2023 ambulatory Natalie Hernandez [facility] Other Start: 12-21-2022 End: 12-21-2022 ambulatory Tondra Mapus Other [facility] Other Start: 12-21-2022 Telephone encounter Tondra [facility] Start: 10-12-2022 ambulatory NATANAEL FELDMAN Faci lity:H1 Start: 10-06-2022 End: 10-07-2022 ambulatory NATANAEL Marks [facility] Facility:[facility] Start: 10-01-2022 Encounter for preprocedural cardiovascular examination [facility] Start: 10-01-2022 Encounter for preprocedural laboratory examination [facility] Start: 09-30-2022 End: 10-01-2022 ambulatory NATANAEL Marks [facility] Facility:[facility]1 Start: 09-30-2022 End: 10-01-2022 Encounter for preprocedural laboratory examination [facility] Facility:[facility]1 Start: 09-15-2022 End: 09-16-2022 ambulatory NATANAEL Marks [facility] Facility:[facility]1 Start: 09-10-2022 End: 09-10-2022 ambulatory Tondra Mapus Other [facility] Other Start: 09-10-2022 Telephone encounter Tondra Dayannaus [facility] Start: 08-24-2022 End: 08-25-2022 ambulatory NATANAEL Marks [facility] Facility:[facility]1 Start: 08-10-2022 End: 08-10-2022 ambulatory Tondra Mapus Other [facility] Other Start: 08-10-2022 Telephone encounter Tondra Dayannaus [facility] Start: 08-03-2022 End: 08-04-[address] NATALIE HERNANDEZ Facility:H1 Start: 07-13-2022 End: 07-14-2022 ambulatory MARTELL ELOISE Facility:[facility]1 Start: 06-30-2022 End: 07-01-2022 ambulatory PETER D HIGHLANDER Facility:[facility]1 Start: 06-25-2022 (DM) Diabetes Tondra Shannon [facility] Start: 06-25-2022 End: 06-25-2022 ambulatory Tondra Dayannaus Other [facility] Other Start: 06-16-2022 End: 06-17-2022 ambulatory PETER [...] 02-18-2022 End: 02-18-2022 ambulatory Tondra Mapus Other [facility] Other Start: 02-18-2022 Telephone encounter Link Ortega [facility] Start: 02-09-2022 End: 02-10-2022 ambulatory PETER D HIGHLANDER Facility:[facility]1 Start: 01-26-2022 End: 01-27-2022 ambulatory PETER D HIGHLANDER Facility:[facility]1 Start: 01-13-2022 End: 01-14-2022 ambulatory PETER D HIGHLANDER Facility:[facility]1 Start: 01-06-2022 (DM) Diabetes Link Ortega [facility] Start: 01-06-2022 End: 01-06-2022 ambulatory Link Ortega Other [facility] Other Start: 12-29-2021 End: 12-30-2021 ambulatory PETER [...] Date Payer Category Payer Self-pay 1979 Unknown [id number] 2.16.84 0.1.294146.3.579.2.593 1979 Unknown [id number] .16.84 0.1.569661.3.579.2.593 1979 Unknown [id number] .16.84 0.1.306694.3.579.2.593 1979 Unknown [id number] ..[id number] 0.1.546531.3.579.2.593 1979 Unknown [id number] .16.84 0.1.505246.3.579.2.593 1979 Unknown [id number] .16.84 0.1.376956.3.579.2.593 1979 Unknown [id number] .16.84 0.1.810245.3.579.2.593 1979 Unknown [id number] .16.84 0.1.449490.3.579.2.593 1979 Unknown [id number] .16.84 0.1.341281.3.579.2.593 1979 Unknown [id number] .16.84 0.1.483519.3.579.2.593 1979 Unknown [id number] .16.84 0.1.705164.3.579.2.593 1979 Unknown [id number] .16.84 0.1.170255.3.579.2.593 1979 Unknown [id number] .16.84 0.1.562579.3.579.2.593 1979 Unknown [id number] 2.16.84 0.1.460356.3.579.2.593 1979 Unknown [id number] 2.16.84 0.1.467461.3.579.2.593 1979 Unknown [id number] 2.16.84 0.1.629253.3.579.2.593 1979 Unknown [id number] 2.16.84 0.1.853068.3.579.2.593 1979 Unknown [id number] 2.16.84 0.1.111699.3.579.2.593 1979 Unknown [id number] 2.16.84 0.1.211457.3.579.2.593 1979 Unknown [id number] .16.84 0.1.587893.3.579.2.593 1979 Unknown [id number] 2.16.84 0.1.549548.3.579.2.593 1979 Unknown [id number] 2.16.84 0.1.843730.3.579.2.593 1979 Unknown [id number] 2.16.84 0.1.263171.3.579.2.593 1979 Unknown [id number] 2.16.84 0.1.039681.3.579.2.593 1979 Unknown [id number] 2.16.84 0.1.269226.3.579.2.593 1979 Unknown [id number] 2.16.84 0.1.852097.3.579.2.593 1979 Unknown [id number] 2.16.84 0.1.306597.3.579.2.593 1979 Unknown [id number] .16.84 0.1.669820.3.579.2.593 1979 Unknown [id number] .16.84 0.1.246624.3.579.2.593 1979 Unknown [id number] 2.16.84 0.1.946445.3.579.2.593 1979 Unknown [id number] 2.16.84 0.1.714898.3.579.2.593 1979 Unknown [id number] 2.16.84 0.1.854717.3.579.2.593 1979 Unknown [id number] 2.16.84 0.1.126216.3.579.2.593 1979 Unknown [id number] 2.16.84 0.1.016055.3.579.2.593 1979 Unknown [id number] 2.16.84 0.1.412873.3.579.2.593 1979 Unknown [id number] 2.16.84 0.1.564465.3.579.2.593 1979 Unknown [id number] 2.16.84 0.1.594264.3.579.2.593 1979 Unknown [id number] 2.16.84 0.1.814117.3.579.2.593 1979 Unknown [id number] 2.16.84 0.1.255392.3.579.2.593 1979 Unknown [id number] 2.16.84 0.1.508309.3.579.2.593 1979 Unknown [id number] 2.16.84 0.1.649764.3.579.2.593 1979 Unknown [id number] 2.16.840. 1.955281.3.579.2.1259 1959 Unknown [id number] 2.16. 840.1.252021.19 1959 Unknown [id number] 2.16.8 40.1.965293.19 Unknown [id number] 2.16.8 40.1.220884.3.579.2.531 Social History Date Type Detail Facility Unknown if ever smoked [facility] Other Sex Assigned At Sex Assigned At Bir th [facility] Other Medical Equipment Procedure Code Equipment Code [...] for Lispro/ozempic 0.5mg sent to [facility] in [place] 01/04/23 7. Prescriptions will not be filled [...] (hypertension) (ICD-10 - I10) on julissa Dec, jail current use of insulin (ICD-10 - Z79.4) Dec, Vitamin B 12 deficiency (ICD-10 - E53.8) 12/30 vit b 12 335 at target Dec, BMI 50.0-59.9, adult (ICD-10 - Z68.43) see above Dec, Wound of foot (ICD-10 - S91.309A) pt has apt scheduled with Dr. Francia keenan [facility] Other 05-30-2023 NotePROCEDURE: XR FOOT LT MIN [...] Electronically authenticated by: FRANCO FRANCES Date: 2022-10-06 14:13[facility]05-04-2023 Evaluation note* Encounter Date Diagnosis Assessment Notes Treatment Notes Treatment Clinical Notes September, Type 2 diabetes mellitus with hyperglycemia (ICD-10 - E11.65) [facility] Other 04-17-2023 NotePROCEDURE: XR FOOT LT MIN [...] Electronically authenticated by: FERN SOSA Date: 2022-08-24 12:46[facility]02-16-2023 Evaluation note* Encounter Date Diagnosis Assessment Notes Treatment Notes Treatment Clinical Notes Jun, Type 2 diabetes mellitus with hyperglycemia (ICD-10 - E11.65) 1. Uncontrolled, a Type 2 diabetes with A1c of 8.2% 2. Blood glucose levels above target. Discussed with pt restarting ozempic, he had s/e from higher dose ozempic 1mg and concern with cost works at [employer]. Pt agreeable to starting sample ozempic 0.5mg [...] issues. 6. Prescriptions: Syringes/ozempic/st eglatro sent to [facility] in [place] 06/25/22 7. Prescriptions will not be filled [...] (hypertension) (ICD-10 - I10) on julissa Jun, jail current use of insulin (ICD-10 - Z79.4) Jun, Vitamin B 12 deficiency (ICD-10 - E53.8) 12/28 vit b 12 423 at target Jun, BMI 50.0-59.9, adult (ICD-10 - Z68.43) [facility] Other 02-07-2023 NotePROCEDURE: XR ANKLE LT MIN [...] Electronically authenticated by: GISSEL RUBIO Date: 2022-06-16 16:33[facility]02-07-2023 NotePROCEDURE: XR ANKLE LT MIN [...] Electronically authenticated by: GISSEL RUBIO Date: 2022-06-16 16:33[facility]08-30-2022 Evaluation note* Encounter Date Diagnosis [...] (hypertension) (ICD-10 - I10) on julissa Dec, jail current use of insulin (ICD-10 - Z79.4) Dec, Vitamin B 12 deficiency (ICD-10 - E53.8) 12/28 vit b 12 423 at target Dec, BMI 45.0-49.9, adult (ICD-10 - Z68.42) 14 pound weight loss from last visit, continue with weight loss efforts [facility] Other 01-01-2021 History general Narrative - Reported* Type Description Date Medical History type II diabetes Medical History hypertension Medical History hyperlipidemia Medical History covid 05/2020 Surgical History Ulcer on left great toe X2 Surgical History Partial amputation Right great toe 01/2021 Surgical History All toes right foot amputated Hospitalization History Toe infection 2017 [facility] Other 01-01-2021 History general Narrative - Reported* Type Description Date Medical History type II diabetes Medical History hypertension Medical History hyperlipidemia Medical History covid 05/2020 Surgical History Ulcer on left great toe X2 Surgical History Partial amputation Right great toe 01/2021 Surgical History All toes right foot amputated Surgical History Left great toe corre ctive surgery with Dr. Feldman in [place] 10/2022 Hospitalization History Toe infection 2017 [facility] Other Evaluation noteNo InformationNort Trendyta Other Summary Purpose Family History No Family [...] section and content) DATE CREATED AUTHOR 08/27/2021 [facility] dical Specialist DATE CREATED AUTHOR AUTHOR'S ORGANIZ ATION 10/17/2022 [facility] DATE CREATED AUTHOR AUTHOR'S ORGANIZ ATION 01/04/2023 [facility] DATE CREATED AUTHOR AUTHOR'S ORGANIZ ATION 03/25/2023 [facility] Specialists EPIC REASON FOR VISIT (unrecogniz ed section and content) DM follow up rescheduled by pt, Type 2 IDDM apt with [employer] 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 [employer] provides no warranty or guarantee of the accuracy or completeness of information in this document.
[2023-04-28 10:48] LABS: Basophils Absolute Auto 0.1 10^3/uL (0.0-0.1); Basophils Percent Auto 0.6 % (0.2-2.0); Eosinophils Absolute Auto 0.1 10^3/uL (0.0-0.7); Eosinophils Percent Auto 0.6 % (0.9-7.0); Hematocrit 41.2 % (42.0-54.0); Hemoglobin 13.4 g/dL (14.0-18.0); Immature Granulocytes Abs Auto 0.04 10^3/uL (0.00-0.03); Immature Granulocytes Pct Auto 0.5 % (0.0-0.5); Lymphocytes Absolute Auto 1.2 10^3/uL (1.2-3.8); Lymphocytes Percent Auto 13.2 % (20.5-60.0); Mean Corpuscular HGB Conc 32.5 g/dL (29.9-35.2); Mean Corpuscular Hemoglobin 30.4 pg (25.9-34.0); Mean Corpuscular Volume 93.4 fL (80.0-94.0); Monocytes Percent Auto 11.7 % (1.7-12.0); Neutrophils Absolute Auto 6.5 10^3/uL (1.4-6.5); Neutrophils Percent Auto 73.4 % (43.0-75.0); Platelet Count 204 10^3/uL (150-450); Red Blood Count 4.41 10^6/uL (4.70-6.10); Red Cell Distribution Width 12.6 % (11.0-15.0); White Blood Count 8.8 10^3/uL (4.0-11.0)
[2023-04-28 11:03] LABS: C Reactive Protein 11.47 mg/dL (<=0.50); Calcium 9.3 mg/dL (8.5-10.1); Carbon Dioxide 25.3 mmol/L (21.0-32.0); Chloride 98 mmol/L (98-107); Estimated GFR (African America >60 (>=60); Estimated GFR (Non-African Ame >60 (>=60); Glucose 168 mg/dL (74-106); Potassium 4.3 mmol/L (3.5-5.1); Sodium 135 mmol/L (136-145)
[2023-04-28 12:31] LABS: Erythrocyte Sedimentation Rate >130 mm/hr (<=15)
== END 2023-04-28 10:23 | disposition home or self-care (01) ==
LOC: LAB 10:23
PROVIDERS: PCP Family Medicine; Visit Provider Podiatrist Foot & Ankle Surgery
DX: S90.822A Blister (nonthermal), left foot, initial encounter (principal); E11.621 Type 2 diabetes mellitus with foot ulcer; L03.116 Cellulitis of left lower limb
CPT/HCPCS: 36415; 73630; 80048; 85025; 85652; 86140

== ENCOUNTER 2023-05-04 10:08 | Outpatient (OUT) | payer OTHER, SELFPAY | END 2023-05-04 10:09 | disposition home or self-care (01) | LOC: WC 10:08 | PROVIDERS: PCP Family Medicine; Visit Provider Podiatrist Foot & Ankle Surgery | DX: E11.621 Type 2 diabetes mellitus with foot ulcer (principal); L97.521 Non-pressure chronic ulcer of other part of left foot limited to breakdown of skin; L97.528 Non-pressure chronic ulcer of other part of left foot with other specified severity | CPT/HCPCS: 11042; A6199 ==

== ENCOUNTER 2023-05-11 09:44 | Outpatient (OUT) | payer OTHER, SELFPAY ==
--- OUTSIDE RECORDS SUMMARY | 2023-05-11 09:47 | XMS_ITS | CCD ---
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 Name Role Phone Link Ortega Unavailable NATANAEL [...] Primary Care Unavailable NATANAEL FELDMAN Attending Unavailable NTAANAEL FELDMAN Admitting Unavailable NATANAEL FELDMAN Consulting Unavailable [...] sources) Long-term current use of insulin; Translations: [assisted (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] Episodic Other aftercare (3 sources) assisted (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 Onset: 01-06-2022 Resolved: [...] 01-04-2023 HbA1c (Bld) [Mass fraction] 8.9 % [facility] Other Glucose - FINGER STICKon Glucose [Mass/Vol] 201 mg/dL [facility] Other HbA1c (Bld) [Mass fraction]o n 01-04-2023 A1C HEMOGLOBIN [facility] Other PROF CHEM 8 (BAS METB)on Anion gap [Moles/Vol] 14.3 mmol/L Normal [facility] Comment on above: Performed By: #### B MP #### [facility] [address] [address] [address] Lauri Todd Calcium [Mass/Vol] 9.4 mg/dL Normal 8.5-10.1 [facility] Comment on above: Performed By: #### B MP #### [facility] [address] [address] [address] Lauri Todd Chloride [Moles/Vol] 101 mmol/L Normal 98-107 [facility] Comment on above: Performed By: #### B MP #### [facility] [address] [address] [address] Lauri Todd CO2 [Moles/Vol] 26.2 mmol/L Normal 21.0-32.0 [facility] Comment on above: Performed By: #### B MP #### [facility] [address] [address] [address] Lauri Todd Creatinine [Mass/Vol] 0.90 mg/dL Normal 0.70-1.30 [facility] Comment on above: Performed By: #### B MP #### [facility] [address] [address] [address] Lauri Todd EGFR-AF COLOMBIAN >60 Normal >=60 [facility] Comment on above: Performed By: #### B MP #### [facility] [address] [address] [address] Lauri Todd EGFR-NON AF COLOMBIAN >60 Normal >=60 [facility] Comment on above: Performed By: #### B MP #### [facility] [address] [place], [place] [address] Dr. Lauri Todd Glucose [Mass/Vol] 146 mg/dL Critically high 74-106 [facility] Comment on above: Performed By: #### B MP #### [facility] [address] [place], [place] [address] Dr. Lauri Todd Potassium [Moles/Vol] 4.5 mmol/L Normal 3.5-5.1 [facility] Comment on above: Performed By: #### B MP #### [facility] [address] [address] [address] Lauri Todd Sodium [Moles/Vol] 137 mmol/L Normal 136-145 [facility] Comment on above: Performed By: #### B MP #### [facility] [address] [address] [address] Lauri Todd Urea nitrogen [Mass/Vol] 16.0 mg/dL Normal 7.0-18.0 [facility] Comment on above: Performed By: #### B MP #### [facility] [address] [address] [address] Lauri Todd Urea nitrogen/Creatinin e [Mass ratio] 17.8 mg/mg Normal [facility] Comment on above: Performed By: #### B MP #### [facility] [address] [address] [address] Lauri Todd A1C HEMOGLOBINon 06-25-2022 HbA1c (Bld) [Mass fraction] 8.2 % [facility] Other Glucose - FINGER STICKon Glucose [Mass/Vol] 180 mg/dL [facility] Other HbA1c (Bld) [Mass fraction]o n 06-25-2022 A1C HEMOGLOBIN [facility] Other XR FOOT LT MIN 3 VIEWSon XR FOOT LT MIN 3 VIEWS EXAM: XR ANKLE LT MIN 3 V, XR FOOT LT MIN 3 VIEWS HISTORY: Pain of left ankle joint COMPARISON: None. TECHNIQUE: Frontal, lateral, and oblique views of the left ankle/foot. FINDINGS/IMPRESSION : Mineralization: Within normal limits. Bones: No acute fractures or dislocations. Old medial malleolus avulsion fractures. Additional dysmorphic/chronica lly fractured appearance of the second distal phalanx, [...] by: RAFAEL WHITAKER Date: 2022-05-25 11:52 Normal [facility] A1C HEMOGLOBINon 01-06-2022 HbA1c (Bld) [Mass fraction] 7 % [facility] Other Glucose - FINGER STICKon Glucose [Mass/Vol] 148 mg/dL [facility] Other HbA1c (Bld) [Mass fraction]o n 01-06-2022 A1C HEMOGLOBIN [facility] Other Basic Metabolic Panelon 04- Anion gap [Moles/Vol] 20 mmol/L Normal 12-20 [facility] Comment on above: Result Comment: Effshahid ctive 05/15/2019 reference range changed. Performed By: #### B MP #### [facility] [address] [place], [place] [id number] Calcium [Mass/Vol] 10.0 mg/dL Normal 8.6-10.2 [facility] Comment on above: Performed By: #### B MP #### [facility] [address] [place], [place] [id number] Chloride [Moles/Vol] 100 mmol/L Normal 98-107 [facility] Comment on above: Performed By: #### B MP #### [facility] [address] [place], [place] [id number] CO2 [Moles/Vol] 22 mmol/L Normal 20-31 [facility] Comment on above: Performed By: #### B MP #### [facility] [address] [place], [place] [id number] Creatinine [Mass/Vol] 0.8 mg/dL Normal 0.7-1.4 [facility] Comment on above: Performed By: #### B MP #### [facility] [address] [place], [place] [id number] eGFRAA 129 mL/min/1.73m2 Normal >60 [facility] Comment on above: Performed By: #### B MP #### [facility] [address] [place], [place] [id number] eGFRNAA 107 mL/min/1.73m2 Normal >60 [facility] Comment on above: Performed By: #### B MP #### [facility] [address] [place], [place] [id number] Glucose [Mass/Vol] 140 mg/dL High 65-99 [facility] Comment on above: Result Comment: For FASTING Glucose --- ADA reference ranges: Normal 65-99 mg/dl Prediabetes 100-125 Diabetes >/= 126 Performed By: #### B MP #### [facility] [address] [place], [place] [id number] Potassium [Moles/Vol] 4.3 mmol/L Normal 3.5-5.5 [facility] Comment on above: Performed By: #### B MP #### [facility] [address] [place], [place] [id number] Sodium [Moles/Vol] 137 mmol/L Normal 135-146 [facility] Comment on above: Performed By: #### B MP #### [facility] [address] [place], [place] [id number] Urea nitrogen [Mass/Vol] 17 mg/dL Normal 7-25 [facility] Comment on above: Performed By: #### B MP #### [facility] [address] [place], [place] [id number] Vital Signs Date Time Vital Sign Value Performing Clinician Facility 01-04-2023 08:45-0400 Body height Link Ortega Other [facility] Other 01-04-2023 08:45-0400 Body mass index (BMI) [Ratio] 51.37 kg/m2 Tondra Mapus Other [facility] Other 01-04-2023 08:45-0400 Body weight 171.82 kg Tondra Mapus Other [facility] Other 01-04-2023 08:45-0400 Diastolic blood pressure 85 mm[Hg] Tondra Mapus Other [facility] Other 01-04-2023 08:45-0400 Respiratory rate 18 /min Tondra Mapus Other [facility] Other 01-04-2023 08:45-0400 SaO2% (BldA) [Mass fraction] 98 % Tondra Mapus Other [facility] Other 01-04-2023 08:45-0400 Systolic blood pressure 150 mm[Hg] Tondra Mapus Other [facility] Other 06-25-2022 09:45-0500 Body height Tondra Mapus Other [facility] Other 06-25-2022 09:45-0500 Body mass index (BMI) [Ratio] 51.14 kg/m2 Tondra Mapus Other [facility] Other 06-25-2022 09:45-0500 Body weight 171.05 kg Tondra Mapus Other [facility] Other 06-25-2022 09:45-0500 Diastolic blood pressure 80 mm[Hg] Tondra Mapus Other [facility] Other 06-25-2022 09:45-0500 Respiratory rate 18 /min Tondra Mapus Other [facility] Other 06-25-2022 09:45-0500 SaO2% (BldA) [Mass fraction] 95 % Tondra Mapus Other [facility] Other 06-25-2022 09:45-0500 Systolic blood pressure 139 mm[Hg] Tondra Mapus Other [facility] Other 01-06-2022 09:45-0400 Body height Tondra Mapus Other [facility] Other 01-06-2022 09:45-0400 Body mass index (BMI) [Ratio] 48.28 kg/m2 Tondra Mapus Other [facility] Other 01-06-2022 09:45-0400 Body weight 161.48 kg Tondra Mapus Other [facility] Other 01-06-2022 09:45-0400 Diastolic blood pressure 71 mm[Hg] Tondra Mapus Other [facility] Other 01-06-2022 09:45-0400 Respiratory rate 20 /min Tondra Mapus Other [facility] Other 01-06-2022 09:45-0400 SaO2% (BldA) [Mass fraction] 95 % Tondra Mapus Other [facility] Other 01-06-2022 09:45-0400 Systolic blood pressure 124 mm[Hg] Tondra Mapus Other [facility] Other Encounters Encounter Date Encounter Type Care Provider Facility Start: 03-24-2023 End: 03-24-2023 ambulatory GLENIS HINSON Not Available Start: 01-04-2023 (DM) Diabetes [facility] Start: 01-04-2023 End: 01-04-2023 ambulatory Natalie Hernandez [facility] Other Start: 12-21-2022 End: 12-21-2022 ambulatory Tondra Mapus Other [facility] Other Start: 12-21-2022 Telephone encounter Tondra Day[facility] Start: 10-12-2022 [facility] Start: 10-06-2022 End: 10-07-2022 ambulatory [facility] Facility:[facility]1 Start: 10-01-2022 Encounter for preprocedural cardiovascular examination [facility] Start: 10-01-2022 Encounter for preprocedural laboratory examination [facility] Start: 09-30-2022 End: 10-01-2022 ambulatory [facility] Facility:H1 Start: 09-30-2022 End: 10-01-2022 Encounter for preprocedural laboratory examination [facility] Facility:H1 Start: 09-15-2022 End: 09-16-2022 ambulatory NATANAEL [facility] Facility:H1 Start: 09-10-2022 End: 09-10-2022 ambulatory Tondra Mapus Other [facility] Other Start: 09-10-2022 Telephone encounter Tondra Mapus [facility] Start: 08-24-2022 End: 08-25-2022 ambulatory [facility] Selina [facility] Facility:H1 Start: 08-10-2022 End: 08-10-2022 ambulatory Tondra Mapus Other [facility] Other Start: 08-10-2022 Telephone encounter Tondra Mapus [facility] Start: 08-03-2022 End: 08-04-[address] NATALIE HERNANDEZ Facility:H1 Start: 07-13-2022 End: 07-14-2022 ambulatory MARTELL NAVAS Facility:H1 Start: 06-30-2022 End: 07-01-2022 ambulatory PETER D HIGHLANDER Facility:H1 Start: 06-25-2022 (DM) Diabetes Tondra Mapus [facility] Start: 06-25-2022 End: 06-25-2022 ambulatory Tondra Mapus Other [facility] Other Start: 06-16-2022 End: 06-17-2022 ambulatory PETER [...] 02-18-2022 End: 02-18-2022 ambulatory Tondra Mapus Other [facility] Other Start: 02-18-2022 Telephone encounter Link Ortega [facility] Start: 02-09-2022 End: 02-10-2022 ambulatory PETER D HIGHLANDER Facility:H1 Start: 01-26-2022 End: 01-27-2022 ambulatory PETER D HIGHLANDER Facility:H1 Start: 01-13-2022 End: 01-14-2022 ambulatory PETER D HIGHLANDER Facility:H1 Start: 01-06-2022 (DM) Diabetes Tondra Shannon [facility] Start: 01-06-2022 End: 01-06-2022 ambulatory Link Ortega Other [facility] Other Start: 12-29-2021 End: 12-30-2021 ambulatory PETER [...] PETER D HIGHLANDER Facility:H1 Start: 10-27-2021 End: 06-21-2022 ambulatory PETER D HIGHLANDER Facility:H1 Start: 10-23-2021 End: 10-24-2021 ambulatory NATANAEL FELDMAN Facility:H1 Start: 10-21-2021 End: 10-22-2021 ambulatory NATANAEL FELDMAN Facility:H1 Start: 10-20-2021 End: 10-21-2021 ambulatory NATANAEL FELDMAN Facility:H1 Payers Date Payer Category Payer Self-pay 1980 Unknown [id number] 2.16.84 0.1.538263.3.579.2.593 1979 Unknown [id number] .16.84 0.1.072549.3.579.2.593 1979 Unknown [id number] ..[id number] 0.1.807210.3.579.2.593 1979 Unknown [id number] ..[id number] 0.1.264769.3.579.2.593 1979 Unknown [id number] .16.84 0.1.653155.3.579.2.593 1979 Unknown [id number] 2.16.84 0.1.645451.3.579.2.593 1979 Unknown [id number] .16.84 0.1.743779.3.579.2.593 1979 Unknown [id number] .16.84 0.1.748646.3.579.2.593 1979 Unknown [id number] .16.84 0.1.132725.3.579.2.593 1979 Unknown [id number] .16.84 0.1.825591.3.579.2.593 1979 Unknown [id number] .16.84 0.1.952632.3.579.2.593 1979 Unknown [id number] .16.84 0.1.910640.3.579.2.593 1979 Unknown [id number] .16.84 0.1.160351.3.579.2.593 1979 Unknown [id number] 2.16.84 0.1.805630.3.579.2.593 1979 Unknown [id number] .16.84 0.1.201146.3.579.2.593 1979 Unknown [id number] 2.16.84 0.1.763245.3.579.2.593 1979 Unknown [id number] .16.84 0.1.988470.3.579.2.593 1979 Unknown [id number] .16.84 0.1.389185.3.579.2.593 1979 Unknown [id number] .16.84 0.1.516391.3.579.2.593 1979 Unknown [id number] .16.84 0.1.654029.3.579.2.593 1979 Unknown [id number] .16.84 0.1.382300.3.579.2.593 1979 Unknown [id number] .16.84 0.1.274584.3.579.2.593 1979 Unknown [id number] .16.84 0.1.982910.3.579.2.593 1979 Unknown [id number] .16.84 0.1.517579.3.579.2.593 1979 Unknown [id number] .16.84 0.1.438974.3.579.2.593 1979 Unknown [id number] .16.84 0.1.008177.3.579.2.593 1979 Unknown [id number] .16.84 0.1.918925.3.579.2.593 1979 Unknown [id number] .16.84 0.1.048565.3.579.2.593 1979 Unknown [id number] .16.84 0.1.653650.3.579.2.593 1979 Unknown [id number] 2.16.84 0.1.213176.3.579.2.593 1979 Unknown [id number] 2.16.84 0.1.663004.3.579.2.593 1979 Unknown [id number] 2.16.84 0.1.442857.3.579.2.593 1979 Unknown [id number] 2.16.84 0.1.444764.3.579.2.593 1979 Unknown [id number] 2.16.84 0.1.370506.3.579.2.593 1979 Unknown [id number] 2.16.84 0.1.305206.3.579.2.593 1979 Unknown [id number] 2.16.84 0.1.282742.3.579.2.593 1979 Unknown [id number] 2.16.84 0.1.722828.3.579.2.593 1979 Unknown [id number] 2.16.84 0.1.335861.3.579.2.593 1979 Unknown [id number] 2.16.84 0.1.927518.3.579.2.593 1979 Unknown [id number] 2.16.84 0.1.826693.3.579.2.593 1979 Unknown [id number] 2.16.84 0.1.374671.3.579.2.593 1979 Unknown [id number] 2.16.840. 1.162613.3.579.2.1259 1959 Unknown [id number] 2.16. 840.1.124361.19 1959 Unknown [id number] 2.16.8 40.1.321635.19 Unknown [id number] 2.16.8 40.1.512702.3.579.2.531 Social History Date Type Detail Facility Unknown if ever smoked [facility] Other Sex Assigned At Sex Assigned At Bir th [facility] Other Medical Equipment Procedure Code Equipment Code [...] for Lispro/ozempic 0.5mg sent to [facility] in [place] 01/04/23 7. 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 Feldman today [facility] Other 05-30-2023 NotePROCEDURE: XR FOOT LT MIN [...] Electronically authenticated by: FRANCO FRANCES Date: 2022-10-06 14:13[facility]05-04-2023 Evaluation note* Encounter Date Diagnosis Assessment Notes Treatment Notes Treatment Clinical Notes September, Type 2 diabetes mellitus with hyperglycemia (ICD-10 - E11.65) [facility] Other 04-17-2023 NotePROCEDURE: XR FOOT LT MIN [...] Electronically authenticated by: FERN SOSA Date: 2022-08-24 12:46[facility]02-16-2023 Evaluation note* Encounter Date Diagnosis Assessment Notes Treatment Notes Treatment Clinical Notes Jun, Type 2 diabetes mellitus with hyperglycemia (ICD-10 - E11.65) 1. Uncontrolled, a Type 2 diabetes with A1c of 8.2% 2. Blood glucose levels above target. Discussed with pt restarting ozempic, he had s/e from higher dose ozempic 1mg and concern with cost works at [employer]. Pt agreeable to starting sample ozempic 0.5mg [...] issues. 6. Prescriptions: Syringes/ozempic/st eglatro sent to [facility] in [place] 06/25/22 7. 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) Jun, Vitamin B 12 deficiency (ICD-10 - E53.8) 12/28 vit b 12 423 at target Jun, BMI 50.0-59.9, adult (ICD-10 - Z68.43) [facility] Other 02-07-2023 NotePROCEDURE: XR ANKLE LT MIN [...] Electronically authenticated by: GISSEL RUBIO Date: 2022-06-16 16:33[facility]02-07-2023 NotePROCEDURE: XR ANKLE LT MIN 3 V, [...] Electronically authenticated by: GISSEL RUBIO Date: 2022-06-16 16:33[facility]08-30-2022 Evaluation note* Encounter Date Diagnosis Assessment Notes [...] (hypertension) (ICD-10 - I10) on julissa Dec, 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, Vitamin B 12 deficiency (ICD-10 - E53.8) 12/28 vit b 12 423 at target Dec, BMI 45.0-49.9, adult (ICD-10 - Z68.42) 14 pound weight loss from last visit, continue with weight loss efforts [facility] Other 01-01-2021 History general Narrative - Reported* Type Description Date Medical History type II diabetes Medical History hypertension Medical History hyperlipidemia Medical History covid 05/2020 Surgical History Ulcer on left great toe X2 Surgical History Partial amputation Right great toe 01/2021 Surgical History All toes right foot amputated Hospitalization History Toe infection 2017 [facility] Other 01-01-2021 History general Narrative - Reported* Type Description Date Medical History type II diabetes Medical History hypertension Medical History hyperlipidemia Medical History covid 05/2020 Surgical History Ulcer on left great toe X2 Surgical History Partial amputation Right great toe 01/2021 Surgical History All toes right foot amputated Surgical History Left great toe corre ctive surgery with Dr. Feldman in [place] 10/2022 Hospitalization History Toe infection 2017 [facility] Other Evaluation noteNo InformationNortDixon Technologies Other Summary Purpose Family History No Family [...] section and content) DATE CREATED AUTHOR 08/27/2021 [facility] DATE CREATED AUTHOR AUTHOR'S ORGANIZ ATION 10/17/2022 [facility] DATE CREATED AUTHOR AUTHOR'S ORGANIZ ATION 01/04/2023 [facility] DATE CREATED AUTHOR AUTHOR'S ORGANIZ ATION 03/25/2023 [facility] EPIC REASON FOR VISIT (unrecogniz ed section and content) DM follow up rescheduled by pt, Type 2 IDDM apt with [facility] CLIENT SUPPORT CONSULTANT, DISASTER DIRECTOR-C, BC-ADM, Last visit 07/01/21[facility] refill test stripsDM f/u pt rescheduled apt, Type 2 IDDM apt with [facility] CLIENT SUPPORT CONSULTANT, DISASTER DIRECTOR-C, BC-ADM, last visit 01/06/22[facility] refill requestTKM - REFILL REQUESTTKM office notesDM f/u pt rescheduled apt, Type 2 IDDM apt with [facility] CLIENT SUPPORT CONSULTANT, DISASTER DIRECTOR-C, 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 [employer] provides no warranty or guarantee of the accuracy or completeness of information in this document.
== END 2023-05-11 09:45 | disposition home or self-care (01) ==
LOC: WC 09:44
PROVIDERS: PCP Family Medicine; Visit Provider Podiatrist Foot & Ankle Surgery
DX: E11.621 Type 2 diabetes mellitus with foot ulcer (principal); L97.521 Non-pressure chronic ulcer of other part of left foot limited to breakdown of skin; L97.528 Non-pressure chronic ulcer of other part of left foot with other specified severity
CPT/HCPCS: 11042

== ENCOUNTER 2023-05-13 14:14 | Outpatient (OUT) | payer OTHER, SELFPAY ==
[2023-05-13 15:27] LABS: Anion Gap 14.7; BUN Creatinine Ratio 13.9; Calcium 9.5 mg/dL (8.5-10.1); Carbon Dioxide 26.5 mmol/L (21.0-32.0); Chloride 97 mmol/L (98-107); Estimated GFR (African America >60 (>=60); Estimated GFR (Non-African Ame >60 (>=60); Glucose 171 mg/dL (74-106); Potassium 4.2 mmol/L (3.5-5.1); Sodium 134 mmol/L (136-145)
== END 2023-05-13 14:15 | disposition home or self-care (01) ==
LOC: PST 14:15
PROVIDERS: PCP Family Medicine; Visit Provider Podiatrist Foot & Ankle Surgery
DX: Z01.812 Encounter for preprocedural laboratory examination (principal); M86.172 Other acute osteomyelitis, left ankle and foot; L97.529 Non-pressure chronic ulcer of other part of left foot with unspecified severity
CPT/HCPCS: 36415; 80048

== ENCOUNTER 2023-05-17 08:58 | Day surgery (SDC) | payer OTHER, SELFPAY ==
[2023-05-13 14:56] VITALS: BP 159/87; PULSE 90; RESP 20; TEMP 36.9; O2SAT 93; BMI 51.2
[2023-05-17] VITALS (9 sets, daily range): BP systolic 117–160; BP diastolic 54–99; PULSE 86–110; RESP 12–22; TEMP 36.1–36.5; O2SAT 92–100
--- OUTSIDE RECORDS SUMMARY | 2023-05-17 09:02 | XMS_ITS | CCD ---
Author Name Unknown Address [address] [place] [address] Organization [facility] Care Team Providers Care Test Eng Name Role Phone Link Ortega Unavailable NATANAEL [...] FELDMAN Attending Unavailable NATANAEL FELDMAN Consulting Unavailable NAATNAEL FELDMAN Admitting Unavailable WONDERLY, DR NATALIE Lozada [...] HIGHLANDER, NATANAEL Marks Attending Unavailable WONDERLY, DR NTAALIE Lozada Primary Care Unavailable HIGHLANDER, NATANAEL Marks [...] sources) Long-term current use of insulin; Translations: [jail (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] Episodic Other aftercare (3 sources) jail (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 Onset: 01-06-2022 Resolved: [...] 01-04-2023 HbA1c (Bld) [Mass fraction] 8.9 % [facility] Other Glucose - FINGER STICKon Glucose [Mass/Vol] 201 mg/dL [facility] Other HbA1c (Bld) [Mass fraction]o n 01-04-2023 A1C HEMOGLOBIN [facility] Other PROF CHEM 8 (BAS METB)on Anion gap [Moles/Vol] 14.3 mmol/L Normal [facility] Comment on above: Performed By: #### B MP #### [facility] [address] [address] [address] Lauri Todd Calcium [Mass/Vol] 9.4 mg/dL Normal 8.5-10.1 [facility] Comment on above: Performed By: #### B MP #### [facility] [address] [address] [address] Lauri Todd Chloride [Moles/Vol] 101 mmol/L Normal 98-107 [facility] Comment on above: Performed By: #### B MP #### [facility] [address] [address] [address] Lauri Todd CO2 [Moles/Vol] 26.2 mmol/L Normal 21.0-32.0 [facility] Comment on above: Performed By: #### B MP #### [facility] [address] [address] [address] Lauri Todd Creatinine [Mass/Vol] 0.90 mg/dL Normal 0.70-1.30 [facility] Comment on above: Performed By: #### B MP #### [facility] [address] [address] [address] Lauri Todd EGFR-AF MALDIVIAN >60 Normal >=60 [facility] Comment on above: Performed By: #### B MP #### [facility] [address] [address] [address] Lauri Todd EGFR-NON AF MALDIVIAN >60 Normal >=60 [facility] Comment on above: Performed By: #### B MP #### [facility] [address] [place], [place] [address] Dr. Lauri Todd Glucose [Mass/Vol] 146 mg/dL Critically high 74-106 [facility] Comment on above: Performed By: #### B MP #### [facility] [address] [place], [place] [address] Dr. Lauri Todd Potassium [Moles/Vol] 4.5 mmol/L Normal 3.5-5.1 [facility] Comment on above: Performed By: #### B MP #### [facility] [address] [address] [address] Lauri Todd Sodium [Moles/Vol] 137 mmol/L Normal 136-145 [facility] Comment on above: Performed By: #### B MP #### [facility] [address] [address] [address] Lauri Todd Urea nitrogen [Mass/Vol] 16.0 mg/dL Normal 7.0-18.0 [facility] Comment on above: Performed By: #### B MP #### [facility] [address] [address] [address] Lauri Todd Urea nitrogen/Creatinin e [Mass ratio] 17.8 mg/mg Normal [facility] Comment on above: Performed By: #### B MP #### [facility] [address] [address] [address] Lauri Todd A1C HEMOGLOBINon 06-25-2022 HbA1c (Bld) [Mass fraction] 8.2 % [facility] Other Glucose - FINGER STICKon Glucose [Mass/Vol] 180 mg/dL [facility] Other HbA1c (Bld) [Mass fraction]o n 06-25-2022 A1C HEMOGLOBIN [facility] Other XR FOOT LT MIN 3 VIEWSon [...] by: RAFAEL WHITAKER Date: 2022-05-25 11:52 Normal [facility] A1C HEMOGLOBINon 01-06-2022 HbA1c (Bld) [Mass fraction] 7 % [facility] Other Glucose - FINGER STICKon Glucose [Mass/Vol] 148 mg/dL [facility] Other HbA1c (Bld) [Mass fraction]o n 01-06-2022 A1C HEMOGLOBIN [email or web address] Other Basic Metabolic Panelon 04- Anion gap [Moles/Vol] 20 mmol/L Normal 12-20 [facility] Comment on above: Result Comment: Effshahid ctive 05/15/2019 reference range changed. Performed By: #### B MP #### [facility] [address] [place], [place] [id number] Calcium [Mass/Vol] 10.0 mg/dL Normal 8.6-10.2 [facility] Comment on above: Performed By: #### B MP #### [facility] [address] [place], [place] [id number] Chloride [Moles/Vol] 100 mmol/L Normal 98-107 [facility] Comment on above: Performed By: #### B MP #### [facility] [address] [place], [place] [id number] CO2 [Moles/Vol] 22 mmol/L Normal 20-31 [facility] Comment on above: Performed By: #### B MP #### [facility] [address] [place], [place] [id number] Creatinine [Mass/Vol] 0.8 mg/dL Normal 0.7-1.4 [facility] Comment on above: Performed By: #### B MP #### [facility] [address] [place], [place] [id number] eGFRAA 129 mL/min/1.73m2 Normal >60 [facility] Comment on above: Performed By: #### B MP #### [facility] [address] [place], [place] [id number] eGFRNAA 107 mL/min/1.73m2 Normal >60 [facility] Comment on above: Performed By: #### B MP #### [facility] [address] [place], [place] [id number] Glucose [Mass/Vol] 140 mg/dL High 65-99 [facility] Comment on above: Result Comment: For FASTING Glucose --- ADA reference ranges: Normal 65-99 mg/dl Prediabetes 100-125 Diabetes >/= 126 Performed By: #### B MP #### [facility] [address] [place], [place] [id number] Potassium [Moles/Vol] 4.3 mmol/L Normal 3.5-5.5 [facility] Comment on above: Performed By: #### B MP #### [facility] [address] [place], [place] [id number] Sodium [Moles/Vol] 137 mmol/L Normal 135-146 [facility] Comment on above: Performed By: #### B MP #### [facility] [address] [place], [place] [id number] Urea nitrogen [Mass/Vol] 17 mg/dL Normal 7-25 [facility] Comment on above: Performed By: #### B MP #### [facility] [address] [place], [place] [id number] Vital Signs Date Time Vital Sign Value Performing Clinician Facility 01-04-2023 08:45-0400 Body height Link Ortega Other [email or web address] Other 01-04-2023 08:45-0400 Body mass index (BMI) [Ratio] 51.37 kg/m2 Tondra Mapus Other [facility] Other 01-04-2023 08:45-0400 Body weight 171.82 kg Tondra Mapus Other [facility] Other 01-04-2023 08:45-0400 Diastolic blood pressure 85 mm[Hg] Tondra Mapus Other [facility] Other 01-04-2023 08:45-0400 Respiratory rate 18 /min Tondra Mapus Other [facility] Other 01-04-2023 08:45-0400 SaO2% (BldA) [Mass fraction] 98 % Tondra Mapus Other [facility] Other 01-04-2023 08:45-0400 Systolic blood pressure 150 mm[Hg] Tondra Mapus Other [facility] Other 06-25-2022 09:45-0500 Body height Tondra Mapus Other [facility] Other 06-25-2022 09:45-0500 Body mass index (BMI) [Ratio] 51.14 kg/m2 Tondra Mapus Other [facility] Other 06-25-2022 09:45-0500 Body weight 171.05 kg Tondra Mapus Other [facility] Other 06-25-2022 09:45-0500 Diastolic blood pressure 80 mm[Hg] Tondra Mapus Other [facility] Other 06-25-2022 09:45-0500 Respiratory rate 18 /min Tondra Mapus Other [facility] Other 06-25-2022 09:45-0500 SaO2% (BldA) [Mass fraction] 95 % Tondra Mapus Other [facility] Other 06-25-2022 09:45-0500 Systolic blood pressure 139 mm[Hg] Tondra Mapus Other [facility] Other 01-06-2022 09:45-0400 Body height Tondra Mapus Other [facility] Other 01-06-2022 09:45-0400 Body mass index (BMI) [Ratio] 48.28 kg/m2 Tondra Mapus Other [facility] Other 01-06-2022 09:45-0400 Body weight 161.48 kg Tondra Mapus Other [facility] Other 01-06-2022 09:45-0400 Diastolic blood pressure 71 mm[Hg] Tondra Mapus Other [facility] Other 01-06-2022 09:45-0400 Respiratory rate 20 /min Tondra Mapus Other [facility] Other 01-06-2022 09:45-0400 SaO2% (BldA) [Mass fraction] 95 % Tondra Mapus Other [facility] Other 01-06-2022 09:45-0400 Systolic blood pressure 124 mm[Hg] Tondra Mapus Other [facility] Other Encounters Encounter Date Encounter Type Care Provider Facility Start: 03-24-2023 End: 03-24-2023 ambulatory GLENIS HINSON Not Available Start: 01-04-2023 (DM) [facility] Start: 01-04-2023 End: 01-04-2023 ambulatory Natalie Hernandez [facility] Other Start: 12-21-2022 End: 12-21-2022 ambulatory Tondra Mapus Other [facility] Other Start: 12-21-2022 Telephone encounter Tondra Day[facility]aus [facility] Start: 10-12-2022 [facility] Start: 10-06-2022 End: 10-07-2022 ambulatory [facility] Facility:H1 Start: 10-01-2022 Encounter for preprocedural cardiovascular examination [facility] Start: 10-01-2022 Encounter for preprocedural laboratory examination [facility] Start: 09-30-2022 End: 10-01-2022 ambulatory [facility] Facility:H1 Start: 09-30-2022 End: 10-01-2022 Encounter for preprocedural laboratory examination [facility] Facility:H1 Start: 09-15-2022 End: 09-16-2022 ambulatory NATANAEL [facility] Facility:H1 Start: 09-10-2022 End: 09-10-2022 ambulatory Tondra Mapus Other [facility] Other Start: 09-10-2022 Telephone encounter Tondra Mapus [facility] Start: 08-24-2022 End: 08-25-2022 ambulatory [facility] Selina [facility] Facility:H1 Start: 08-10-2022 End: 08-10-2022 ambulatory Tondra Mapus Other [facility] Other Start: 08-10-2022 Telephone encounter Tondra Mapus [facility] Start: 08-03-2022 End: 08-04-[address] NATALIE HERNANDEZ Facility:H1 Start: 07-13-2022 End: 07-14-2022 ambulatory MARTELL NAVAS Facility:H1 Start: 06-30-2022 End: 07-01-2022 ambulatory PETER D HIGHLANDER Facility:H1 Start: 06-25-2022 (DM) Diabetes Tondra Mapus [facility] Start: 06-25-2022 End: 06-25-2022 ambulatory Tondra Mapus Other [facility] Other Start: 06-16-2022 End: 06-17-2022 ambulatory PETER [...] 02-18-2022 End: 02-18-2022 ambulatory Tondra Mapus Other [facility] Other Start: 02-18-2022 Telephone encounter Link Ortega [facility] Start: 02-09-2022 End: 02-10-2022 ambulatory PETER D HIGHLANDER Facility:H1 Start: 01-26-2022 End: 01-27-2022 ambulatory PETER D HIGHLANDER Facility:H1 Start: 01-13-2022 End: 01-14-2022 ambulatory PETER D HIGHLANDER Facility:H1 Start: 01-06-2022 (DM) Diabetes Tondra Shannon [facility] Start: 01-06-2022 End: 01-06-2022 ambulatory Link Ortega Other [facility] Other Start: 12-29-2021 End: 12-30-2021 ambulatory PETER [...] Date Payer Category Payer Self-pay 1979 Unknown [id number] 2.16.84 0.1.322617.3.579.2.593 1979 Unknown [id number] .16.84 0.1.063960.3.579.2.593 1979 Unknown [id number] ..[id number] 0.1.855366.3.579.2.593 1979 Unknown [id number] ..[id number] 0.1.913072.3.579.2.593 1979 Unknown [id number] .16.84 0.1.297215.3.579.2.593 1979 Unknown [id number] 2.16.84 0.1.782423.3.579.2.593 1979 Unknown [id number] .16.84 0.1.069841.3.579.2.593 1979 Unknown [id number] .16.84 0.1.863169.3.579.2.593 1979 Unknown [id number] .16.84 0.1.020205.3.579.2.593 1979 Unknown [id number] .16.84 0.1.030993.3.579.2.593 1979 Unknown [id number] .16.84 0.1.664288.3.579.2.593 1979 Unknown [id number] .16.84 0.1.580071.3.579.2.593 1979 Unknown [id number] .16.84 0.1.163189.3.579.2.593 1979 Unknown [id number] 2.16.84 0.1.412337.3.579.2.593 1979 Unknown [id number] .16.84 0.1.191562.3.579.2.593 1979 Unknown [id number] 2.16.84 0.1.098470.3.579.2.593 1979 Unknown [id number] .16.84 0.1.534734.3.579.2.593 1979 Unknown [id number] .16.84 0.1.984475.3.579.2.593 1979 Unknown [id number] .16.84 0.1.816544.3.579.2.593 1979 Unknown [id number] .16.84 0.1.807921.3.579.2.593 1979 Unknown [id number] .16.84 0.1.110293.3.579.2.593 1979 Unknown [id number] .16.84 0.1.453627.3.579.2.593 1979 Unknown [id number] .16.84 0.1.364372.3.579.2.593 1979 Unknown [id number] .16.84 0.1.174592.3.579.2.593 1979 Unknown [id number] .16.84 0.1.696786.3.579.2.593 1979 Unknown [id number] .16.84 0.1.615501.3.579.2.593 1979 Unknown [id number] .16.84 0.1.047734.3.579.2.593 1979 Unknown [id number] .16.84 0.1.907688.3.579.2.593 1979 Unknown [id number] .16.84 0.1.121502.3.579.2.593 1979 Unknown [id number] 2.16.84 0.1.562279.3.579.2.593 1979 Unknown [id number] 2.16.84 0.1.630572.3.579.2.593 1979 Unknown [id number] 2.16.84 0.1.804290.3.579.2.593 1979 Unknown [id number] 2.16.84 0.1.747820.3.579.2.593 1979 Unknown [id number] 2.16.84 0.1.958959.3.579.2.593 1979 Unknown [id number] 2.16.84 0.1.010093.3.579.2.593 1979 Unknown [id number] 2.16.84 0.1.258651.3.579.2.593 1979 Unknown [id number] 2.16.84 0.1.131482.3.579.2.593 1979 Unknown [id number] 2.16.84 0.1.212192.3.579.2.593 1979 Unknown [id number] 2.16.84 0.1.624076.3.579.2.593 1979 Unknown [id number] 2.16.84 0.1.265736.3.579.2.593 1979 Unknown [id number] 2.16.84 0.1.877597.3.579.2.593 1979 Unknown [id number] 2.16.840. 1.169148.3.579.2.1259 1959 Unknown [id number] 2.16. 840.1.775218.19 1959 Unknown [id number] 2.16.8 40.1.665631.19 Unknown [id number] 2.16.8 40.1.611358.3.579.2.531 Social History Date Type Detail Facility Unknown if ever smoked [facility] Other Sex Assigned At Sex Assigned At Bir th [facility] Other Medical Equipment Procedure Code Equipment Code [...] for Lispro/ozempic 0.5mg sent to [facility] in [place] 01/04/23 7. 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 Feldman today [facility] Other 05-30-2023 NotePROCEDURE: XR FOOT LT MIN [...] Electronically authenticated by: FRANCO FRANCES Date: 2022-10-06 14:13[facility]05-04-2023 Evaluation note* Encounter Date Diagnosis Assessment Notes Treatment Notes Treatment Clinical Notes September, Type 2 diabetes mellitus with hyperglycemia (ICD-10 - E11.65) [facility] Other 04-17-2023 NotePROCEDURE: XR FOOT LT MIN [...] Electronically authenticated by: FERN SOSA Date: 2022-08-24 12:46[facility]02-16-2023 Evaluation note* Encounter Date Diagnosis Assessment Notes Treatment Notes Treatment Clinical Notes Jun, Type 2 diabetes mellitus with hyperglycemia (ICD-10 - E11.65) 1. Uncontrolled, a Type 2 diabetes with A1c of 8.2% 2. Blood glucose levels above target. Discussed with pt restarting ozempic, he had s/e from higher dose ozempic 1mg and concern with cost works at [employer]. Pt agreeable to starting sample ozempic 0.5mg [...] issues. 6. Prescriptions: Syringes/ozempic/st eglatro sent to [facility] in [place] 06/25/22 7. 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 (ICD-10 - Z79.4) Jun, Vitamin B 12 deficiency (ICD-10 - E53.8) 12/28 vit b 12 423 at target Jun, BMI 50.0-59.9, adult (ICD-10 - Z68.43) [facility] Other 02-07-2023 NotePROCEDURE: XR ANKLE LT MIN [...] Electronically authenticated by: GISSEL RUBIO Date: 2022-06-16 16:33[facility]02-07-2023 NotePROCEDURE: XR ANKLE LT MIN 3 [...] Electronically authenticated by: GISSEL RUBIO Date: 2022-06-16 16:33[facility]08-30-2022 Evaluation note* Encounter Date Diagnosis Assessment [...] (hypertension) (ICD-10 - I10) on julissa Dec, 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 (ICD-10 - Z79.4) Dec, Vitamin B 12 deficiency (ICD-10 - E53.8) 12/28 vit b 12 423 at target Dec, BMI 45.0-49.9, adult (ICD-10 - Z68.42) 14 pound weight loss from last visit, continue with weight loss efforts [facility] Other 01-01-2021 History general Narrative - Reported* Type Description Date Medical History type II diabetes Medical History hypertension Medical History hyperlipidemia Medical History covid 05/2020 Surgical History Ulcer on left great toe X2 Surgical History Partial amputation Right great toe 01/2021 Surgical History All toes right foot amputated Hospitalization History Toe infection 2017 [facility] Other 01-01-2021 History general Narrative - Reported* Type Description Date Medical History type II diabetes Medical History hypertension Medical History hyperlipidemia Medical History covid 05/2020 Surgical History Ulcer on left great toe X2 Surgical History Partial amputation Right great toe 01/2021 Surgical History All toes right foot amputated Surgical History Left great toe corre ctive surgery with Dr. Feldman in [place] 10/2022 Hospitalization History Toe infection 2017 [facility] Other Evaluation noteNo InformationNortTodaytickets Other Summary Purpose Family History No Family [...] section and content) DATE CREATED AUTHOR 08/27/2021 [facility] DATE CREATED AUTHOR AUTHOR'S ORGANIZ ATION 10/17/2022 [facility] DATE CREATED AUTHOR AUTHOR'S ORGANIZ ATION 01/04/2023 [facility] DATE CREATED AUTHOR AUTHOR'S ORGANIZ ATION 03/25/2023 [facility] EPIC REASON FOR VISIT (unrecogniz ed section and content) DM follow up rescheduled by pt, Type 2 IDDM apt with [facility] MACHINE FILLER, PROGRAM SPECIALIST-C, BC-ADM, Last visit 07/01/21[facility] refill test stripsDM f/u pt rescheduled apt, Type 2 IDDM apt with [facility] MACHINE FILLER, PROGRAM SPECIALIST-C, BC-ADM, last visit 01/06/22[facility] refill requestTKM - REFILL REQUESTTKM office notesDM f/u pt rescheduled apt, Type 2 IDDM apt with [facility] MACHINE FILLER, PROGRAM SPECIALIST-C, 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 [employer] provides no warranty or guarantee of the accuracy or completeness of information in this document.
[2023-05-17 09:19] LABS: Glucometer 187 mg/dL (74-106)
[2023-05-17] MEDS: LACTATED RINGER'S SOLUTION 1,000 ML 50 ML IV (09:32)
[2023-05-17] MEDS: CEFAZOLIN SODIUM 3,000 MG in 0.9 % SODIUM CHLORIDE 100 ML 200 MG IV (10:17)
[2023-05-17] MEDS: BUPIVACAINE HCL 0.5% PF 50 MG/10 ML VIAL INJ (11:52)
[2023-05-17 12:17] LABS: Glucometer 160 mg/dL (74-106)
--- NOTE | 2023-05-17 12:50 | P.ORON_ITS ---
Brief Operative Note Date of procedure: 05/17/23 Pre-op diagnosis: left osteomyelitis 4th toe & diabetic foot ulcer of hallux Post-op diagnosis: other (left acute osteomyelitis of 4th toe, diabetic ulceration of hallux, type 2 diabetes with peripheral neuropathy) Procedure: PROCEDURE(S) PERFORMED: left 4th toe amputation, debridement down to and including fat and fascia hallux ulcer, application of total contact cast INDICATION FOR PROCEDURE: patient is a 42-year-old type II diabetic male who is well known to my practice undergoing multiple procedures for diabetic foot ulceration. At recent follow-up last week with Dr. Johnson, it was noted that his 4th toe was severely erythematous and edematous with an ulceration at the PIPJ which probed to bone. Reportedly patient was offered to undergo amputation at that time but he wanted to wait until I returned from vacation. He was placed on oral antibiotics and relates that swelling and erythema has diminished somewhat. In the preoperative area clinical findings were consistent with acute osteomyelitis of his 4th toe which was more than double normal size. Erythema was to the level of the MPJ. Great toe ulceration is full thickness without bone or tendon exposure. I reviewed the potential risks and benefits of surgery and specifically the procedures above. All questions were answered to his satisfaction. INTRAOPERATIVE FINDINGS: ulceration on the dorsal PIPJ of the left 4th toe measured 0.5 x 0.5 cm in did probe to bone. there is a small amount of purulence within the PIPJ and the bone of the proximal and middle phalanx was discolored and osteopenic consistent with acute osteomyelitis. Soft tissue and bone proximal to the MPJ was was then normal limits. Plantar hallux wound measured 1.5 x 1.0 cm and had no acute signs of infection. PROCEDURE IN DETAIL: Patient was identified in pre op and consent was reviewed. Correct side and site were identified and marked. Pre-op antibiotics were started. Patient was brought to OR suite and place on table in a supine position. General anesthesia was a dministered. Tourniquet applied. Operative extremity was prepped and draped in usual sterile fashion. Formal time-out was performed and the foot/ankle were exsanguinated and tourniquet inflated. A fishmouth incision was placed on the 4th toe. Full-thickness incision was taken down to bone to the level of the metatarsal phalangeal joint and all soft tissue attachments were released allowing disarticulation of the digit. The amputated digit was passed back table and sent for specimen. Tendinous structures were cut proximally. Surgical site was irrigated with normal saline and inspected for any nonviable tissue which was removed. Incision was then closed in one layer with nonabsorbable suture. with attention to the plantar hallux wound wound was excised sharply with fifteen blade and debridement was down to and including fat and fascia. There is no acute signs of infection. And debridement was performed until one hundred percent healthy granular base is noted. Negative probe to bone and no tendon was exposed. Tourniquet was deflated and a prompt hyperemic response is noted. A dry sterile dressing consisting of Xeroform 4 x 4's and Kerlix were applied followed by felt padding and stockinette. A total contact cast using the TCC-EZ system was applied and held in a neutral position until dry. POSTOPERATIVE PLAN: Discharge home under family's care Post op instructions provided verbally and written prescription(s) were placed in chart WBAT operative foot/ankle in total contact cast until incisions have healed Follow-up in 3-5 days for cast change Implants: none Anesthesia: General-LMA Surgeon: Jesus Feldman Muffler Mechanic: Mars Johnson Estimated blood loss (mL): 10 Pathology: other (4th toe) Condition: stable Disposition: PACU
== END 2023-05-17 14:05 | disposition home or self-care (01) ==
PROVIDERS: PCP Family Medicine; Visit Provider Podiatrist Foot & Ankle Surgery
PROC: (CPT 01470; principal; 2023-05-17 10:00)
DX: E11.621 Type 2 diabetes mellitus with foot ulcer (principal); L97.528 Non-pressure chronic ulcer of other part of left foot with other specified severity; Z79.4 Long term (current) use of insulin; Z79.82 Long term (current) use of aspirin; Z79.84 Long term (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 oral hypoglycemic drugs; L97.521 Non-pressure chronic ulcer of other part of left foot limited to breakdown of skin; M20.20 Hallux rigidus, unspecified foot; L60.3 Nail dystrophy; L60.8 Other nail disorders; M21.42 Flat foot [pes planus] (acquired), left foot; E78.00 Pure hypercholesterolemia, unspecified; E66.01 Morbid (severe) obesity due to excess calories; E11.69 Type 2 diabetes mellitus with other specified complication; M86.172 Other acute osteomyelitis, left ankle and foot; E11.42 Type 2 diabetes mellitus with diabetic polyneuropathy; Z68.43 Body mass index [BMI] 50.0-59.9, adult; Z86.16 Personal history of COVID-19
CPT/HCPCS: 01470; 01480; 11043; 28820; 36415; 82948; 88305; 88311; J0330; J0665; J0690; J1100; J2250; J2405; J2704; J3010

== ENCOUNTER 2023-05-20 13:41 | Outpatient (OUT) | payer OTHER, SELFPAY ==
--- OUTSIDE RECORDS SUMMARY | 2023-05-20 13:45 | XMS_ITS | CCD ---
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 Lauri Todd Calcium [Mass/Vol] 9.4 mg/dL Normal 8.5-10.1 [facility] Comment on above: Performed By: #### B MP #### [facility] [address] [address] [address] Lauri Todd Chloride [Moles/Vol] 101 mmol/L Normal 98-107 [facility] Comment on above: Performed By: #### B MP #### [facility] [address] [address] [address] Lauri Todd CO2 [Moles/Vol] 26.2 mmol/L Normal 21.0-32.0 [facility] Comment on above: Performed By: #### B MP #### [facility] [address] [address] [address] Lauri Todd Creatinine [Mass/Vol] 0.90 mg/dL Normal 0.70-1.30 [facility] Comment on above: Performed By: #### B MP #### [facility] [address] [address] [address] Lauri Todd EGFR-AF INDIAN >60 Normal >=60 [facility] Comment on above: Performed By: #### B MP #### [facility] [address] [address] [address] Lauri Todd EGFR-NON AF INDIAN >60 Normal >=60 [facility] Comment on above: Performed By: #### B MP #### [facility] [address] [place], [place] [address] Dr. Lauri Todd Glucose [Mass/Vol] 146 mg/dL Critically high 74-106 [facility] Comment on above: Performed By: #### B MP #### [facility] [address] [place], [place] [address] Dr. Lauri Todd Potassium [Moles/Vol] 4.5 mmol/L Normal 3.5-5.1 [facility] Comment on above: Performed By: #### B MP #### [facility] [address] [address] [address] Lauri Todd Sodium [Moles/Vol] 137 mmol/L Normal 136-145 [facility] Comment on above: Performed By: #### B MP #### [facility] [address] [address] [address] Lauri Todd Urea nitrogen [Mass/Vol] 16.0 mg/dL Normal 7.0-18.0 [facility] Comment on above: Performed By: #### B MP #### [facility] [address] [address] [address] Lauri Todd Urea nitrogen/Creatinin e [Mass ratio] 17.8 mg/mg Normal [facility] Comment on above: Performed By: #### B MP #### [facility] [address] [address] [address] Lauri Todd A1C HEMOGLOBINon 06-25-2022 HbA1c (Bld) [Mass fraction] 8.2 % [facility] Other Glucose - FINGER STICKon Glucose [Mass/Vol] 180 mg/dL [facility] Other HbA1c (Bld) [Mass fraction]o n 06-25-2022 A1C HEMOGLOBIN [facility] Other XR FOOT LT MIN 3 VIEWSon [...] by: RAFAEL WHITAKER Date: 2022-05-25 11:52 Normal [facility] A1C HEMOGLOBINon 01-06-2022 HbA1c (Bld) [Mass fraction] 7 % [facility] Other Glucose - FINGER STICKon Glucose [Mass/Vol] 148 mg/dL [facility] Other HbA1c (Bld) [Mass fraction]o n 01-06-2022 A1C HEMOGLOBIN [facility] Other Basic Metabolic Panelon 04- Anion gap [Moles/Vol] 20 mmol/L Normal 12-20 [facility] Comment on above: Result Comment: Effshahid ctive 05/15/2019 reference range changed. Performed By: #### B MP #### [facility] [address] [place], [place] [id number] Calcium [Mass/Vol] 10.0 mg/dL Normal 8.6-10.2 [facility] Comment on above: Performed By: #### B MP #### [facility] [address], [place] [id number] Chloride [Moles/Vol] 100 mmol/L Normal 98-107 [facility] Comment on above: Performed By: #### B MP #### [facility] [address], [place] [id number] CO2 [Moles/Vol] 22 mmol/L Normal 20-31 [facility] Comment on above: Performed By: #### B MP #### [facility] [address], [place] [id number] Creatinine [Mass/Vol] 0.8 mg/dL Normal 0.7-1.4 [facility] Comment on above: Performed By: #### B MP #### [facility] [address], [place] [id number] eGFRAA 129 mL/min/1.73m2 Normal >60 [facility] Specialist Comment on above: Performed By: #### B MP #### [facility] [address], [place] [id number] eGFRNAA 107 mL/min/1.73m2 Normal >60 [facility] Specialist Comment on above: Performed By: #### B MP #### [facility] [address], [place] [id number] Glucose [Mass/Vol] 140 mg/dL High 65-99 [facility] Specialist Comment on above: Result Comment: For FASTING Glucose --- ADA reference ranges: Normal 65-99 mg/dl Prediabetes 100-125 Diabetes >/= 126 Performed By: #### B MP #### [facility] [address], [place] [id number] Potassium [Moles/Vol] 4.3 mmol/L Normal 3.5-5.5 [facility] Comment on above: Performed By: #### B MP #### [facility] [address], [place] [id number] Sodium [Moles/Vol] 137 mmol/L Normal 135-146 [facility] Comment on above: Performed By: #### B MP #### [facility] [address], [place] [id number] Urea nitrogen [Mass/Vol] 17 mg/dL Normal 7-25 [facility] Comment on above: Performed By: #### B MP #### [facility] [address], [place] [id number] Vital Signs Date Time Vital Sign Value Performing Clinician Facility 01-04-2023 08:45-0400 Body height Link Ortega Other [facility] Other 01-04-2023 08:45-0400 Body mass index (BMI) [Ratio] 51.37 kg/m2 Tondra Mapus Other [facility] Other 01-04-2023 08:45-0400 Body weight 171.82 kg Tondra Mapus Other [facility] Other 01-04-2023 08:45-0400 Diastolic blood pressure 85 mm[Hg] Tondra Mapus Other [facility] Other 01-04-2023 08:45-0400 Respiratory rate 18 /min Tondra Mapus Other [facility] Other 01-04-2023 08:45-0400 SaO2% (BldA) [Mass fraction] 98 % Tondra Mapus Other [facility] Other 01-04-2023 08:45-0400 Systolic blood pressure 150 mm[Hg] Tondra Mapus Other [facility] Other 06-25-2022 09:45-0500 Body height Tondra Mapus Other [facility] Other 06-25-2022 09:45-0500 Body mass index (BMI) [Ratio] 51.14 kg/m2 Tondra Mapus Other [facility] Other 06-25-2022 09:45-0500 Body weight 171.05 kg Tondra Mapus Other [facility] Other 06-25-2022 09:45-0500 Diastolic blood pressure 80 mm[Hg] Tondra Mapus Other [facility] Other 06-25-2022 09:45-0500 Respiratory rate 18 /min Tondra Mapus Other [facility] Other 06-25-2022 09:45-0500 SaO2% (BldA) [Mass fraction] 95 % Tondra Mapus Other [facility] Other 06-25-2022 09:45-0500 Systolic blood pressure 139 mm[Hg] Tondra Mapus Other [facility] Other 01-06-2022 09:45-0400 Body height Tondra Mapus Other [facility] Other 01-06-2022 09:45-0400 Body mass index (BMI) [Ratio] 48.28 kg/m2 Tondra Mapus Other [facility] Other 01-06-2022 09:45-0400 Body weight 161.48 kg Tondra Mapus Other [facility] Other 01-06-2022 09:45-0400 Diastolic blood pressure 71 mm[Hg] Tondra Mapus Other [facility] Other 01-06-2022 09:45-0400 Respiratory rate 20 /min Tondra Mapus Other [facility] Other 01-06-2022 09:45-0400 SaO2% (BldA) [Mass fraction] 95 % Tondra Mapus Other [facility] Other 01-06-2022 09:45-0400 Systolic blood pressure 124 mm[Hg] Tondra Mapus Other [facility] Other Encounters Encounter Date Encounter Type Care Provider Facility Start: 03-24-2023 End: 03-24-2023 ambulatory GLENIS HINSON Not Available Start: 01-04-2023 (DM) [facility] Start: 01-04-2023 End: 01-04-2023 ambulatory Natalie Hernandez [facility] Other Start: 12-21-2022 End: 12-21-2022 ambulatory Tondra Mapus Other [facility] Other Start: 12-21-2022 Telephone encounter [facility] Day[facility]aus [facility] Start: 10-12-2022 [facility] Start: 10-06-2022 End: 10-07-2022 ambulatory [facility] Facility:H1 Start: 10-01-2022 Encounter for preprocedural cardiovascular examination [facility] Start: 10-01-2022 Encounter for preprocedural laboratory examination [facility] Start: 09-30-2022 End: 10-01-2022 ambulatory [facility] Facility:H1 Start: 09-30-2022 End: 10-01-2022 Encounter for preprocedural laboratory examination [facility] Facility:H1 Start: 09-15-2022 End: 09-16-2022 ambulatory NATANAEL [facility] Facility:H1 Start: 09-10-2022 End: 09-10-2022 ambulatory Tondra Mapus Other [facility] Other Start: 09-10-2022 Telephone encounter Tondra Mapus [facility] Start: 08-24-2022 End: 08-25-2022 ambulatory [facility] Selina [facility] Facility:H1 Start: 08-10-2022 End: 08-10-2022 ambulatory Tondra Mapus Other [facility] Other Start: 08-10-2022 Telephone encounter Tondra Mapus [facility] Start: 08-03-2022 End: 08-04-[address] NATALIE HERNANDEZ Facility:H1 Start: 07-13-2022 End: 07-14-2022 ambulatory MARTELL NAVAS Facility:H1 Start: 06-30-2022 End: 07-01-2022 ambulatory PETER D HIGHLANDER Facility:H1 Start: 06-25-2022 (DM) Diabetes Tondra Mapus [facility] Start: 06-25-2022 End: 06-25-2022 ambulatory Tondra Mapus Other [facility] Other Start: 06-16-2022 End: 06-17-2022 ambulatory PETER [...] 02-18-2022 End: 02-18-2022 ambulatory Tondra Mapus Other [facility] Other Start: 02-18-2022 Telephone encounter Link Ortega [facility] Start: 02-09-2022 End: 02-10-2022 ambulatory PETER D HIGHLANDER Facility:H1 Start: 01-26-2022 End: 01-27-2022 ambulatory PETER D HIGHLANDER Facility:H1 Start: 01-13-2022 End: 01-14-2022 ambulatory PETER D HIGHLANDER Facility:H1 Start: 01-06-2022 (DM) Diabetes Tondra Shannon [facility] Start: 01-06-2022 End: 01-06-2022 ambulatory Link Ortega Other [facility] Other Start: 12-29-2021 End: 12-30-2021 ambulatory PETER [...] Date Payer Category Payer Self-pay 1979 Unknown [id number] 2.16.84 0.1.799375.3.579.2.593 1979 Unknown [id number] .16.84 0.1.641721.3.579.2.593 1979 Unknown [id number] ..[id number] 0.1.428048.3.579.2.593 1979 Unknown [id number] ..[id number] 0.1.592592.3.579.2.593 1979 Unknown [id number] .16.84 0.1.843869.3.579.2.593 1979 Unknown [id number] 2.16.84 0.1.548327.3.579.2.593 1979 Unknown [id number] .16.84 0.1.895458.3.579.2.593 1979 Unknown [id number] .16.84 0.1.130765.3.579.2.593 1979 Unknown [id number] .16.84 0.1.716445.3.579.2.593 1979 Unknown [id number] .16.84 0.1.190387.3.579.2.593 1979 Unknown [id number] .16.84 0.1.876144.3.579.2.593 1979 Unknown [id number] .16.84 0.1.859337.3.579.2.593 1979 Unknown [id number] .16.84 0.1.330190.3.579.2.593 1979 Unknown [id number] 2.16.84 0.1.268751.3.579.2.593 1979 Unknown [id number] .16.84 0.1.671091.3.579.2.593 1979 Unknown [id number] 2.16.84 0.1.702680.3.579.2.593 1979 Unknown [id number] .16.84 0.1.171096.3.579.2.593 1979 Unknown [id number] .16.84 0.1.646194.3.579.2.593 1979 Unknown [id number] .16.84 0.1.410592.3.579.2.593 1979 Unknown [id number] .16.84 0.1.316235.3.579.2.593 1979 Unknown [id number] .16.84 0.1.337295.3.579.2.593 1979 Unknown [id number] .16.84 0.1.503630.3.579.2.593 1979 Unknown [id number] .16.84 0.1.690486.3.579.2.593 1979 Unknown [id number] .16.84 0.1.226348.3.579.2.593 1979 Unknown [id number] .16.84 0.1.010974.3.579.2.593 1979 Unknown [id number] .16.84 0.1.659889.3.579.2.593 1979 Unknown [id number] .16.84 0.1.284210.3.579.2.593 1979 Unknown [id number] .16.84 0.1.765301.3.579.2.593 1979 Unknown [id number] .16.84 0.1.254754.3.579.2.593 1979 Unknown [id number] 2.16.84 0.1.372794.3.579.2.593 1979 Unknown [id number] 2.16.84 0.1.609377.3.579.2.593 1979 Unknown [id number] 2.16.84 0.1.275602.3.579.2.593 1979 Unknown [id number] 2.16.84 0.1.513000.3.579.2.593 1979 Unknown [id number] 2.16.84 0.1.336182.3.579.2.593 1979 Unknown [id number] 2.16.84 0.1.484098.3.579.2.593 1979 Unknown [id number] 2.16.84 0.1.713937.3.579.2.593 1979 Unknown [id number] 2.16.84 0.1.595257.3.579.2.593 1979 Unknown [id number] 2.16.84 0.1.862154.3.579.2.593 1979 Unknown [id number] 2.16.84 0.1.717180.3.579.2.593 1979 Unknown [id number] 2.16.84 0.1.791983.3.579.2.593 1979 Unknown [id number] 2.16.84 0.1.643949.3.579.2.593 1979 Unknown [id number] 2.16.840. 1.220311.3.579.2.1259 1959 Unknown [id number] 2.16. 840.1.599414.19 1959 Unknown [id number] 2.16.8 40.1.289262.19 Unknown [id number] 2.16.8 40.1.903596.3.579.2.531 Social History Date Type Detail Facility Unknown if ever smoked [facility] Other Sex Assigned At Sex Assigned At Bir th [facility] Other Medical Equipment Procedure Code Equipment Code [...] for Lispro/ozempic 0.5mg sent to [facility] in [place] 01/04/23 7. 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 Feldman today [facility] Other 05-30-2023 NotePROCEDURE: XR FOOT LT MIN [...] Electronically authenticated by: FRANCO FRANCES Date: 2022-10-06 14:13[facility]05-04-2023 Evaluation note* Encounter Date Diagnosis Assessment Notes Treatment Notes Treatment Clinical Notes September, Type 2 diabetes mellitus with hyperglycemia (ICD-10 - E11.65) [facility] Other 04-17-2023 NotePROCEDURE: XR FOOT LT MIN [...] Electronically authenticated by: FERN SOSA Date: 2022-08-24 12:46[facility]02-16-2023 Evaluation note* Encounter Date Diagnosis Assessment Notes Treatment Notes Treatment Clinical Notes Jun, Type 2 diabetes mellitus with hyperglycemia (ICD-10 - E11.65) 1. Uncontrolled, a Type 2 diabetes with A1c of 8.2% 2. Blood glucose levels above target. Discussed with pt restarting ozempic, he had s/e from higher dose ozempic 1mg and concern with cost works at [employer]. Pt agreeable to starting sample ozempic 0.5mg [...] issues. 6. Prescriptions: Syringes/ozempic/st eglatro sent to [facility] in [place] 06/25/22 7. 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) Jun, Vitamin B 12 deficiency (ICD-10 - E53.8) 12/28 vit b 12 423 at target Jun, BMI 50.0-59.9, adult (ICD-10 - Z68.43) [facility] Other 02-07-2023 NotePROCEDURE: XR ANKLE LT MIN [...] Electronically authenticated by: GISSEL RUBIO Date: 2022-06-16 16:33[facility]02-07-2023 NotePROCEDURE: XR ANKLE LT MIN 3 V, [...] Electronically authenticated by: GISSEL RUBIO Date: 2022-06-16 16:33[facility]08-30-2022 Evaluation note* Encounter Date Diagnosis Assessment Notes [...] (hypertension) (ICD-10 - I10) on julissa Dec, 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) Dec, Vitamin B 12 deficiency (ICD-10 - E53.8) 12/28 vit b 12 423 at target Dec, BMI 45.0-49.9, adult (ICD-10 - Z68.42) 14 pound weight loss from last visit, continue with weight loss efforts [facility] Other 01-01-2021 History general Narrative - Reported* Type Description Date Medical History type II diabetes Medical History hypertension Medical History hyperlipidemia Medical History covid 05/2020 Surgical History Ulcer on left great toe X2 Surgical History Partial amputation Right great toe 01/2021 Surgical History All toes right foot amputated Hospitalization History Toe infection 2017 [facility] Other 01-01-2021 History general Narrative - Reported* Type Description Date Medical History type II diabetes Medical History hypertension Medical History hyperlipidemia Medical History covid 05/2020 Surgical History Ulcer on left great toe X2 Surgical History Partial amputation Right great toe 01/2021 Surgical History All toes right foot amputated Surgical History Left great toe corre ctive surgery with Dr. 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 Other Summary Purpose Family History No Family [...] section and content) DATE CREATED AUTHOR 08/27/2021 [facility] dical Specialist DATE CREATED AUTHOR AUTHOR'S ORGANIZ ATION 10/17/2022 [facility] DATE CREATED AUTHOR AUTHOR'S ORGANIZ ATION 01/04/2023 [facility] DATE CREATED AUTHOR AUTHOR'S ORGANIZ ATION 03/25/2023 [facility] dical Specialists EPIC REASON FOR VISIT (unrecogniz ed section and content) DM follow up rescheduled by pt, Type 2 IDDM apt with [facility] [employer] ROOM ATTENDANT, 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 [employer] provides no warranty or guarantee of the accuracy or completeness of information in this document.
== END 2023-05-20 13:42 | disposition home or self-care (01) ==
LOC: WC 13:42
PROVIDERS: PCP Family Medicine; Visit Provider Physician Assistant
DX: E11.621 Type 2 diabetes mellitus with foot ulcer (principal); L97.528 Non-pressure chronic ulcer of other part of left foot with other specified severity; T87.89 Other complications of amputation stump
CPT/HCPCS: 29445

== ENCOUNTER 2023-05-27 12:51 | Outpatient (OUT) | payer OTHER, SELFPAY ==
--- OUTSIDE RECORDS SUMMARY | 2023-05-27 12:55 | XMS_ITS | CCD ---
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 Single Needle Name Role Phone Link Ortega Unavailable NATANAEL [...] HIGHLANDER, NATANAEL Marks Admitting Unavailable HIGHLANDER, NATANAEL Marsk Attending Unavailable HIGHLANDER, NATANAEL Marks Consulting Unavailable [...] HIGHLANDER, NATANAEL Marks Admitting Unavailable WONDERLY, DR NATAILE Lozada Primary Care Unavailable HIGHLANDER, NATANAEL Marks [...] sources) Long-term current use of insulin; Translations: [supervisor intermediates (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] Episodic Other aftercare (3 sources) supervisor intermediates (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 Onset: 01-06-2022 Resolved: [...] 01-04-2023 HbA1c (Bld) [Mass fraction] 8.9 % [facility] Other Glucose - FINGER STICKon Glucose [Mass/Vol] 201 mg/dL [facility] Other HbA1c (Bld) [Mass fraction]o n 01-04-2023 A1C HEMOGLOBIN [employer] Other PROF CHEM 8 (BAS METB)on Anion gap [Moles/Vol] 14.3 mmol/L Normal [facility] Comment on above: Performed By: #### B MP #### [facility] [address] [address] [address] Lauri Todd Calcium [Mass/Vol] 9.4 mg/dL Normal 8.5-10.1 [facility] Comment on above: Performed By: #### B MP #### [facility] [address] [address] [address] Lauri Todd Chloride [Moles/Vol] 101 mmol/L Normal 98-107 [facility] Comment on above: Performed By: #### B MP #### [facility] [address] [address] [address] Lauri Todd CO2 [Moles/Vol] 26.2 mmol/L Normal 21.0-32.0 [facility] Comment on above: Performed By: #### B MP #### [facility] [address] [address] [address] Lauri Todd Creatinine [Mass/Vol] 0.90 mg/dL Normal 0.70-1.30 [facility] Comment on above: Performed By: #### B MP #### [facility] [address] [address] [address] Lauri Todd EGFR-AF BRITISH >60 Normal >=60 [facility] Comment on above: Performed By: #### B MP #### [facility] [address] [address] [address] Lauri Todd EGFR-NON AF BRITISH >60 Normal >=60 [facility] Comment on above: Performed By: #### B MP #### [facility] [address] [place], [place] [address] Dr. Lauri Todd Glucose [Mass/Vol] 146 mg/dL Critically high 74-106 [facility] Comment on above: Performed By: #### B MP #### [facility] [address] [place], [place] [address] Dr. Lauri Todd Potassium [Moles/Vol] 4.5 mmol/L Normal 3.5-5.1 [facility] Comment on above: Performed By: #### B MP #### [facility] [address] [address] [address] Lauri Todd Sodium [Moles/Vol] 137 mmol/L Normal 136-145 [facility] Comment on above: Performed By: #### B MP #### [facility] [address] [address] [address] Lauri Todd Urea nitrogen [Mass/Vol] 16.0 mg/dL Normal 7.0-18.0 [facility] Comment on above: Performed By: #### B MP #### [facility] [address] [address] [address] Lauri Todd Urea nitrogen/Creatinin e [Mass ratio] 17.8 mg/mg Normal [facility] Comment on above: Performed By: #### B MP #### [facility] [address] [address] [address] Lauri Todd A1C HEMOGLOBINon 06-25-2022 HbA1c (Bld) [Mass fraction] 8.2 % [facility] Other Glucose - FINGER STICKon Glucose [Mass/Vol] 180 mg/dL [employer] [facility] Other HbA1c (Bld) [Mass fraction]o n 06-25-2022 A1C HEMOGLOBIN [employer] Other XR FOOT LT MIN 3 VIEWSon [...] by: RAFAEL WHITAKER Date: 2022-05-25 11:52 Normal [facility] A1C HEMOGLOBINon 01-06-2022 HbA1c (Bld) [Mass fraction] 7 % [employer] [facility] Other Glucose - FINGER STICKon Glucose [Mass/Vol] 148 mg/dL [employer] [facility] Other HbA1c (Bld) [Mass fraction]o n 01-06-[address] [facility] [employer] Other Basic Metabolic Panelon 04- Anion gap [Moles/Vol] 20 mmol/L Normal 12-20 [facility] Comment on above: Result Comment: Effshahid ctive 05/15/2019 reference range changed. Performed By: #### B MP #### [facility] [address] [place], [place] [id number] Calcium [Mass/Vol] 10.0 mg/dL Normal 8.6-10.2 [facility] Comment on above: Performed By: #### B MP #### [facility] [address] [place], [place] [id number] Chloride [Moles/Vol] 100 mmol/L Normal 98-107 [facility] Comment on above: Performed By: #### B MP #### [facility] [address] [place], [place] [id number] CO2 [Moles/Vol] 22 mmol/L Normal 20-31 [facility] Comment on above: Performed By: #### B MP #### [facility] [address] [place], [place] [id number] Creatinine [Mass/Vol] 0.8 mg/dL Normal 0.7-1.4 [facility] Comment on above: Performed By: #### B MP #### [facility] [address] [place], [place] [id number] eGFRAA 129 mL/min/1.73m2 Normal >[address] [facility] Comment on above: Performed By: #### B MP #### [facility] [address] [place], [place] [id number] eGFRNAA 107 mL/min/1.73m2 Normal >[address] [facility] Comment on above: Performed By: #### B MP #### [facility] [address] [place], [place] [id number] Glucose [Mass/Vol] 140 mg/dL High 65-99 [facility] Comment on above: Result Comment: For FASTING Glucose --- ADA reference ranges: Normal 65-99 mg/dl Prediabetes 100-125 Diabetes >/= 126 Performed By: #### B MP #### [facility] [address] [place], [place] [id number] Potassium [Moles/Vol] 4.3 mmol/L Normal 3.5-5.5 [facility] Comment on above: Performed By: #### B MP #### [facility] [address] [place], [place] [id number] Sodium [Moles/Vol] 137 mmol/L Normal 135-146 [facility] Comment on above: Performed By: #### B MP #### [facility] [address] [place], [place] [id number] Urea nitrogen [Mass/Vol] 17 mg/dL Normal 7-25 [facility] Comment on above: Performed By: #### B MP #### [facility] [address] [place], [place] [id number] Vital Signs Date Time Vital Sign Value Performing Clinician Facility 01-04-2023 08:45-0400 Body height Link Ortega Other [facility] Other 01-04-2023 08:45-0400 Body mass index (BMI) [Ratio] 51.37 kg/m2 Tondra Mapus Other [facility] Other 01-04-2023 08:45-0400 Body weight 171.82 kg Tondra Mapus Other [facility] Other 01-04-2023 08:45-0400 Diastolic blood pressure 85 mm[Hg] Tondra Mapus Other [facility] Other 01-04-2023 08:45-0400 Respiratory rate 18 /min Tondra Mapus Other [facility] Other 01-04-2023 08:45-0400 SaO2% (BldA) [Mass fraction] 98 % Tondra Mapus Other [facility] Other 01-04-2023 08:45-0400 Systolic blood pressure 150 mm[Hg] Tondra Mapus Other [facility] Other 06-25-2022 09:45-0500 Body height Tondra Mapus Other [facility] Other 06-25-2022 09:45-0500 Body mass index (BMI) [Ratio] 51.14 kg/m2 Tondra Mapus Other [facility] Other 06-25-2022 09:45-0500 Body weight 171.05 kg Tondra Mapus Other [facility] Other 06-25-2022 09:45-0500 Diastolic blood pressure 80 mm[Hg] Tondra Mapus Other [facility] Other 06-25-2022 09:45-0500 Respiratory rate 18 /min Tondra Mapus Other [facility] Other 06-25-2022 09:45-0500 SaO2% (BldA) [Mass fraction] 95 % Tondra Mapus Other [facility] Other 06-25-2022 09:45-0500 Systolic blood pressure 139 mm[Hg] Tondra Mapus Other [facility] Other 01-06-2022 09:45-0400 Body height Tondra Mapus Other [facility] Other 01-06-2022 09:45-0400 Body mass index (BMI) [Ratio] 48.28 kg/m2 Tondra Mapus Other [facility] Other 01-06-2022 09:45-0400 Body weight 161.48 kg Tondra Mapus Other [facility] Other 01-06-2022 09:45-0400 Diastolic blood pressure 71 mm[Hg] Tondra Mapus Other [facility] Other 01-06-2022 09:45-0400 Respiratory rate 20 /min Tondra Mapus Other [facility] Other 01-06-2022 09:45-0400 SaO2% (BldA) [Mass fraction] 95 % Tondra Mapus Other [facility] Other 01-06-2022 09:45-0400 Systolic blood pressure 124 mm[Hg] Tondra Mapus Other [facility] Other Encounters Encounter Date Encounter Type Care Provider Facility Start: 03-24-2023 End: 03-24-2023 ambulatory GLENIS HINSON Not Available Start: 01-04-2023 (DM) [facility] Start: 01-04-2023 End: 01-04-2023 ambulatory Natalie Hernandez [facility] Other Start: 12-21-2022 End: 12-21-2022 ambulatory Tondra Mapus Other [facility] Other Start: 12-21-2022 Telephone encounter Tondra Dayannaus [facility] Start: 10-12-2022 [facility] Start: 10-06-2022 End: 10-07-2022 ambulatory [facility] Facility:H1 Start: 10-01-2022 Encounter for preprocedural cardiovascular examination [facility] Start: 10-01-2022 Encounter for preprocedural laboratory examination [facility] Start: 09-30-2022 End: 10-01-2022 ambulatory [facility] Facility:H1 Start: 09-30-2022 End: 10-01-2022 Encounter for preprocedural laboratory examination [facility] Facility:H1 Start: 09-15-2022 End: 09-16-2022 ambulatory NATANAEL [facility] Facility:H1 Start: 09-10-2022 End: 09-10-2022 ambulatory Tondra Mapus Other [facility] Other Start: 09-10-2022 Telephone encounter Tondra Mapus [facility] Start: 08-24-2022 End: 08-25-2022 ambulatory [facility] Selina [facility] Facility:H1 Start: 08-10-2022 End: 08-10-2022 ambulatory Tondra Mapus Other [facility] Other Start: 08-10-2022 Telephone encounter Tondra Mapus [facility] Start: 08-03-2022 End: 08-04-[address] NATALIE HERNANDEZ Facility:H1 Start: 07-13-2022 End: 07-14-2022 ambulatory MARTELL NAVAS Facility:H1 Start: 06-30-2022 End: 07-01-2022 ambulatory PETER D HIGHLANDER Facility:H1 Start: 06-25-2022 (DM) Diabetes Tondra [facility] Start: 06-25-2022 End: 06-25-2022 ambulatory Tondra Mapus Other [facility] Other Start: 06-16-2022 End: 06-17-2022 ambulatory PETER [...] 02-18-2022 End: 02-18-2022 ambulatory Tondra Mapus Other [facility] Other Start: 02-18-2022 Telephone encounter Link Ortega [facility] Start: 02-09-2022 End: 02-10-2022 ambulatory PETER D HIGHLANDER Facility:H1 Start: 01-26-2022 End: 01-27-2022 ambulatory PETER D HIGHLANDER Facility:H1 Start: 01-13-2022 End: 01-14-2022 ambulatory PETER D HIGHLANDER Facility:H1 Start: 01-06-2022 (DM) Diabetes Tondra [facility] Start: 01-06-2022 End: 01-06-2022 ambulatory Link Ortega Other [facility] Other Start: 12-29-2021 End: 12-30-2021 ambulatory PETER [...] Date Payer Category Payer Self-pay 1979 Unknown [id number] 2.16.84 0.1.928005.3.579.2.593 1979 Unknown [id number] .16.84 0.1.761209.3.579.2.593 1979 Unknown [id number] ..84 0.1.035892.3.579.2.593 1979 Unknown [id number] ..[id number] 0.1.292770.3.579.2.593 1979 Unknown [id number] .16.84 0.1.352911.3.579.2.593 1979 Unknown [id number] 2.16.84 0.1.786532.3.579.2.593 1979 Unknown [id number] .16.84 0.1.463828.3.579.2.593 1979 Unknown [id number] .16.84 0.1.513090.3.579.2.593 1979 Unknown [id number] .16.84 0.1.508021.3.579.2.593 1979 Unknown [id number] .16.84 0.1.840529.3.579.2.593 1979 Unknown [id number] .16.84 0.1.664619.3.579.2.593 1979 Unknown [id number] .16.84 0.1.741837.3.579.2.593 1979 Unknown [id number] .16.84 0.1.631596.3.579.2.593 1979 Unknown [id number] 2.16.84 0.1.357958.3.579.2.593 1979 Unknown [id number] .16.84 0.1.860935.3.579.2.593 1979 Unknown [id number] 2.16.84 0.1.150514.3.579.2.593 1979 Unknown [id number] .16.84 0.1.813698.3.579.2.593 1979 Unknown [id number] .16.84 0.1.423126.3.579.2.593 1979 Unknown [id number] .16.84 0.1.783844.3.579.2.593 1979 Unknown [id number] .16.84 0.1.426444.3.579.2.593 1979 Unknown [id number] .16.84 0.1.149264.3.579.2.593 1979 Unknown [id number] .16.84 0.1.569002.3.579.2.593 1979 Unknown [id number] .16.84 0.1.471723.3.579.2.593 1979 Unknown [id number] .16.84 0.1.797426.3.579.2.593 1979 Unknown [id number] .16.84 0.1.427320.3.579.2.593 1979 Unknown [id number] .16.84 0.1.744540.3.579.2.593 1979 Unknown [id number] .16.84 0.1.863231.3.579.2.593 1979 Unknown [id number] .16.84 0.1.371812.3.579.2.593 1979 Unknown [id number] .16.84 0.1.447908.3.579.2.593 1979 Unknown [id number] 2.16.84 0.1.003096.3.579.2.593 1979 Unknown [id number] 2.16.84 0.1.057887.3.579.2.593 1979 Unknown [id number] 2.16.84 0.1.296880.3.579.2.593 1979 Unknown [id number] 2.16.84 0.1.428004.3.579.2.593 1979 Unknown [id number] 2.16.84 0.1.375399.3.579.2.593 1979 Unknown [id number] 2.16.84 0.1.300571.3.579.2.593 1979 Unknown [id number] 2.16.84 0.1.669328.3.579.2.593 1979 Unknown [id number] 2.16.84 0.1.145996.3.579.2.593 1979 Unknown [id number] 2.16.84 0.1.887510.3.579.2.593 1979 Unknown [id number] 2.16.84 0.1.163774.3.579.2.593 1979 Unknown [id number] 2.16.84 0.1.313483.3.579.2.593 1979 Unknown [id number] 2.16.84 0.1.572065.3.579.2.593 1979 Unknown [id number] 2.16.840. 1.989292.3.579.2.1259 1959 Unknown [id number] 2.16. 840.1.817644.19 1959 Unknown [id number] 2.16.8 40.1.740810.19 Unknown [id number] 2.16.8 40.1.416332.3.579.2.531 Social History Date Type Detail Facility Unknown if ever smoked [facility] Other Sex Assigned At Sex Assigned At Bir th [facility] Other Medical Equipment Procedure Code Equipment Code [...] for Lispro/ozempic 0.5mg sent to [facility] in [place] 01/04/23 7. 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 Feldman today [facility] Other 05-30-2023 NotePROCEDURE: XR FOOT LT MIN [...] Electronically authenticated by: FRANCO FRANCES Date: 2022-10-06 14:13[facility]05-04-2023 Evaluation note* Encounter Date Diagnosis Assessment Notes Treatment Notes Treatment Clinical Notes September, Type 2 diabetes mellitus with hyperglycemia (ICD-10 - E11.65) [facility] Other 04-17-2023 NotePROCEDURE: XR FOOT LT MIN [...] Electronically authenticated by: FERN SOSA Date: 2022-08-24 12:46[facility]02-16-2023 Evaluation note* Encounter Date Diagnosis Assessment Notes Treatment Notes Treatment Clinical Notes Jun, Type 2 diabetes mellitus with hyperglycemia (ICD-10 - E11.65) 1. Uncontrolled, a Type 2 diabetes with A1c of 8.2% 2. Blood glucose levels above target. Discussed with pt restarting ozempic, he had s/e from higher dose ozempic 1mg and concern with cost works at [employer]. Pt agreeable to starting sample ozempic 0.5mg [...] Syringes/ozempic/st eglatro sent to [facility] in [place] 06/25/22 7. Prescriptions will not be filled [...] (hypertension) (ICD-10 - I10) on julissa Jun, snf current use of insulin (ICD-10 - Z79.4) Jun, Vitamin B 12 deficiency (ICD-10 - E53.8) 12/28 vit b 12 423 at target Jun, BMI 50.0-59.9, adult (ICD-10 - Z68.43) [facility] Other 02-07-2023 NotePROCEDURE: XR ANKLE LT MIN [...] Electronically authenticated by: GISSEL RUBIO Date: 2022-06-16 16:33[facility]02-07-2023 NotePROCEDURE: XR ANKLE LT MIN 3 [...] Electronically authenticated by: GISSEL RUBIO Date: 2022-06-16 16:33[facility]08-30-2022 Evaluation note* Encounter Date Diagnosis Assessment [...] (hypertension) (ICD-10 - I10) on julissa Dec, supervisor intermediates current use of insulin (ICD-10 - Z79.4) Dec, Vitamin B 12 deficiency (ICD-10 - E53.8) 12/28 vit b 12 423 at target Dec, BMI 45.0-49.9, adult (ICD-10 - Z68.42) 14 pound weight loss from last visit, continue with weight loss efforts [facility] Other 01-01-2021 History general Narrative - Reported* Type Description Date Medical History type II diabetes Medical History hypertension Medical History hyperlipidemia Medical History covid 05/2020 Surgical History Ulcer on left great toe X2 Surgical History Partial amputation Right great toe 01/2021 Surgical History All toes right foot amputated Hospitalization History Toe infection 2017 [facility] Other 01-01-2021 History general Narrative - Reported* Type Description Date Medical History type II diabetes Medical History hypertension Medical History hyperlipidemia Medical History covid 05/2020 Surgical History Ulcer on left great toe X2 Surgical History Partial amputation Right great toe 01/2021 Surgical History All toes right foot amputated Surgical History Left great toe corre ctive surgery with Dr. Feldman in [place] 10/2022 Hospitalization History Toe infection 2017 [facility] Other Evaluation noteNo InformationNortMixbook Other Summary Purpose Family History No Family [...] section and content) DATE CREATED AUTHOR 08/27/2021 [facility] Specialist DATE CREATED AUTHOR AUTHOR'S ORGANIZ ATION 10/17/2022 [facility] DATE CREATED AUTHOR AUTHOR'S ORGANIZ ATION 01/04/2023 [facility] DATE CREATED AUTHOR AUTHOR'S ORGANIZ ATION 03/25/2023 [facility] Specialists EPIC REASON FOR VISIT (unrecogniz ed section and content) DM follow up rescheduled by pt, Type 2 IDDM apt with [employer], 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 [employer] provides no warranty or guarantee of the accuracy or completeness of information in this document.
== END 2023-05-27 12:52 | disposition home or self-care (01) ==
LOC: WC 12:51
PROVIDERS: PCP Family Medicine; Visit Provider Physician Assistant
DX: T87.89 Other complications of amputation stump (principal); E11.621 Type 2 diabetes mellitus with foot ulcer; L97.528 Non-pressure chronic ulcer of other part of left foot with other specified severity
CPT/HCPCS: 29445

== ENCOUNTER 2023-06-03 13:43 | Outpatient (OUT) | payer OTHER, SELFPAY ==
--- OUTSIDE RECORDS SUMMARY | 2023-06-03 13:48 | XMS_ITS | CCD ---
Author Name Unknown Address [address] [place] [address] Organization [facility] Care Team Providers Care Diabetes Trainer Name Role Phone Link Ortega Unavailable NATANAEL [...] HIGHLANDER, NATANAEL Marks Admitting Unavailable WONDERLY, DR ANTALIE Lozada Primary Care Unavailable HIGHLANDER, NATANAEL Marks [...] HIGHLANDER, NATANAEL Marks Admitting Unavailable WONDERLY, DR NATLAIE Lozada Primary Care Unavailable HIGHLANDER, NATANAEL Marks [...] HIGHLANDER, NATANAEL Marks Admitting Unavailable HIGHLANDER, NATANAEL Mraks Attending Unavailable HIGHLANDER, NATANAEL Marks Admitting Unavailable WONDERLY, DR NATALIE Lzoada Primary Care Unavailable HIGHLANDER, NATANAEL Marks Attending [...] sources) Long-term current use of insulin; Translations: [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 Lauri Todd Calcium [Mass/Vol] 9.4 mg/dL Normal 8.5-10.1 [facility] Comment on above: Performed By: #### B MP #### [facility] [address] [address] [address] Lauri Todd Chloride [Moles/Vol] 101 mmol/L Normal 98-107 [facility] Comment on above: Performed By: #### B MP #### [facility] [address] [address] [address] Lauri Todd CO2 [Moles/Vol] 26.2 mmol/L Normal 21.0-32.0 [facility] Comment on above: Performed By: #### B MP #### [facility] [address] [address] [address] Lauri Todd Creatinine [Mass/Vol] 0.90 mg/dL Normal 0.70-1.30 [facility] Comment on above: Performed By: #### B MP #### [facility] [address] [address] [address] Lauri Todd EGFR-AF CHADIAN >60 Normal >=60 [facility] Comment on above: Performed By: #### B MP #### [facility] [address] [address] [address] Lauri Todd EGFR-NON AF CHADIAN >60 Normal >=60 [facility] Comment on above: Performed By: #### B MP #### [facility] [address] [place], [place] [address] Dr. Lauri Todd Glucose [Mass/Vol] 146 mg/dL Critically high 74-106 [facility] Comment on above: Performed By: #### B MP #### [facility] [address] [place], [place] [address] Dr. Lauri Todd Potassium [Moles/Vol] 4.5 mmol/L Normal 3.5-5.1 [facility] Comment on above: Performed By: #### B MP #### [facility] [address] [address] [address] Lauri Todd Sodium [Moles/Vol] 137 mmol/L Normal 136-145 [facility] Comment on above: Performed By: #### B MP #### [facility] [address] [address] [address] Lauri Todd Urea nitrogen [Mass/Vol] 16.0 mg/dL Normal 7.0-18.0 [facility] Comment on above: Performed By: #### B MP #### [facility] [address] [address] [address] Lauri Todd Urea nitrogen/Creatinin e [Mass ratio] 17.8 mg/mg Normal [facility] Comment on above: Performed By: #### B MP #### [facility] [address] [address] [address] Lauri Todd A1C HEMOGLOBINon 06-25-2022 HbA1c (Bld) [Mass fraction] 8.2 % [facility] Other Glucose - FINGER STICKon Glucose [Mass/Vol] 180 mg/dL [facility] Other HbA1c (Bld) [Mass fraction]o n 06-25-2022 A1C HEMOGLOBIN [employer] Other XR FOOT LT MIN 3 VIEWSon [...] by: RAFAEL WHITAKER Date: 2022-05-25 11:52 Normal [facility] A1C HEMOGLOBINon 01-06-2022 HbA1c (Bld) [Mass fraction] 7 % [facility] Other Glucose - FINGER STICKon Glucose [Mass/Vol] 148 mg/dL [facility] Other HbA1c (Bld) [Mass fraction]o n 01-06-2022 A1C HEMOGLOBIN [facility] Other Basic Metabolic Panelon 04- Anion gap [Moles/Vol] 20 mmol/L Normal 12-[address] [facility] Specialist Comment on above: Result Comment: Effshahid ctive 05/15/2019 reference range changed. Performed By: #### B MP #### [facility] [address] [place], [place] [id number] Calcium [Mass/Vol] 10.0 mg/dL Normal 8.6-10.2 [facility] Comment on above: Performed By: #### B MP #### [facility] [address] [place], [place] [id number] Chloride [Moles/Vol] 100 mmol/L Normal 98-[address] [facility] Specialist Comment on above: Performed By: #### B MP #### [facility] [address] [place], [place] [id number] CO2 [Moles/Vol] 22 mmol/L Normal 20-[address] [facility] Specialist Comment on above: Performed By: #### B MP #### [facility] [address] [place], [place] [id number] Creatinine [Mass/Vol] 0.8 mg/dL Normal 0.7-1.[address] [facility] Specialist Comment on above: Performed By: #### B MP #### [facility] [address] [place], [place] [id number] eGFRAA 129 mL/min/1.73m2 Normal >60 [facility] Specialist Comment on above: Performed By: #### B MP #### [facility] [address] [place], [place] [id number] eGFRNAA 107 mL/min/1.73m2 Normal >60 [facility] Specialist Comment on above: Performed By: #### B MP #### [facility] [address] [place], [place] [id number] Glucose [Mass/Vol] 140 mg/dL High 65-99 [facility] Specialist Comment on above: Result Comment: For FASTING Glucose --- ADA reference ranges: Normal 65-99 mg/dl Prediabetes 100-125 Diabetes >/= 126 Performed By: #### B MP #### [facility] [address] [place], [place] [id number] Potassium [Moles/Vol] 4.3 mmol/L Normal 3.5-5.[address] [facility] Specialist Comment on above: Performed By: #### B MP #### [facility] [address] [place], [place] [id number] Sodium [Moles/Vol] 137 mmol/L Normal 135-146 [facility] Photo Manager Comment on above: Performed By: #### B MP #### [facility] [address] [place], [place] [id number] Urea nitrogen [Mass/Vol] 17 mg/dL Normal 7-[address] [facility] Specialist Comment on above: Performed By: #### B MP #### [facility] [address] [place], [place] [id number] Vital Signs Date Time Vital Sign Value Performing Clinician Facility 01-04-2023 08:45-0400 Body height Link Ortega Other [facility] Other 01-04-2023 08:45-0400 Body mass index (BMI) [Ratio] 51.37 kg/m2 Tondra Mapus Other [facility] Other 01-04-2023 08:45-0400 Body weight 171.82 kg Tondra Mapus Other [facility] Other 01-04-2023 08:45-0400 Diastolic blood pressure 85 mm[Hg] Tondra Mapus Other [facility] Other 01-04-2023 08:45-0400 Respiratory rate 18 /min Tondra Mapus Other [facility] Other 01-04-2023 08:45-0400 SaO2% (BldA) [Mass fraction] 98 % Tondra Mapus Other [facility] Other 01-04-2023 08:45-0400 Systolic blood pressure 150 mm[Hg] Tondra Mapus Other [facility] Other 06-25-2022 09:45-0500 Body height Tondra Mapus Other [facility] Other 06-25-2022 09:45-0500 Body mass index (BMI) [Ratio] 51.14 kg/m2 Tondra Mapus Other [facility] Other 06-25-2022 09:45-0500 Body weight 171.05 kg Tondra Mapus Other [facility] Other 06-25-2022 09:45-0500 Diastolic blood pressure 80 mm[Hg] Tondra Mapus Other [facility] Other 06-25-2022 09:45-0500 Respiratory rate 18 /min Tondra Mapus Other [facility] Other 06-25-2022 09:45-0500 SaO2% (BldA) [Mass fraction] 95 % Tondra Mapus Other [facility] Other 06-25-2022 09:45-0500 Systolic blood pressure 139 mm[Hg] Tondra Mapus Other [facility] Other 01-06-2022 09:45-0400 Body height Tondra Mapus Other [facility] Other 01-06-2022 09:45-0400 Body mass index (BMI) [Ratio] 48.28 kg/m2 Tondra Mapus Other [facility] Other 01-06-2022 09:45-0400 Body weight 161.48 kg Tondra Mapus Other [facility] Other 01-06-2022 09:45-0400 Diastolic blood pressure 71 mm[Hg] Tondra Mapus Other [facility] Other 01-06-2022 09:45-0400 Respiratory rate 20 /min Tondra Mapus Other [facility] Other 01-06-2022 09:45-0400 SaO2% (BldA) [Mass fraction] 95 % Tondra Mapus Other [facility] Other 01-06-2022 09:45-0400 Systolic blood pressure 124 mm[Hg] Tondra Mapus Other [facility] Other Encounters Encounter Date Encounter Type Care Provider Facility Start: 03-24-2023 End: 03-24-2023 ambulatory GLENIS HINSON Not Available Start: 01-04-2023 (DM) [facility] Start: 01-04-2023 End: 01-04-2023 ambulatory Natalie Hernandez [facility] Other Start: 12-21-2022 End: 12-21-2022 ambulatory Tondra Mapus Other [facility] Other Start: 12-21-2022 Telephone encounter Tondra Day[facility] Start: 10-12-2022 [facility] Start: 10-06-2022 End: 10-07-2022 ambulatory [facility] Facility:H1 Start: 10-01-2022 Encounter for preprocedural cardiovascular examination [facility] Start: 10-01-2022 Encounter for preprocedural laboratory examination [facility] Start: 09-30-2022 End: 10-01-2022 ambulatory [facility] Facility:H1 Start: 09-30-2022 End: 10-01-2022 Encounter for preprocedural laboratory examination [facility] Facility:H1 Start: 09-15-2022 End: 09-16-2022 ambulatory [facility]ATANAEL [facility] Facility:H1 Start: 09-10-2022 End: 09-10-2022 ambulatory Tondra Mapus Other [facility] Other Start: 09-10-2022 Telephone encounter Tondra [facility]us [facility] Start: 08-24-2022 End: 08-25-2022 ambulatory [facility] Selina [facility] Facility:H1 Start: 08-10-2022 End: 08-10-2022 ambulatory Tondra Mapus Other [facility] Other Start: 08-10-2022 Telephone encounter Tondra Mapus [facility] Start: 08-03-2022 End: 08-04-[address] NATALIE HERNANDEZ Facility:H1 Start: 07-13-2022 End: 07-14-2022 ambulatory MARTELL NAVAS Facility:H1 Start: 06-30-2022 End: 07-01-2022 ambulatory PETER D HIGHLANDER Facility:H1 Start: 06-25-2022 (DM) Diabetes Tondra Mapus [facility] Start: 06-25-2022 End: 06-25-2022 ambulatory Tondra Mapus Other [facility] Other Start: 06-16-2022 End: 06-17-2022 ambulatory PETER [...] 02-18-2022 End: 02-18-2022 ambulatory Tondra Mapus Other [facility] Other Start: 02-18-2022 Telephone encounter Link Ortega [facility] Start: 02-09-2022 End: 02-10-2022 ambulatory PETER D HIGHLANDER Facility:H1 Start: 01-26-2022 End: 01-27-2022 ambulatory PETER D HIGHLANDER Facility:H1 Start: 01-13-2022 End: 01-14-2022 ambulatory PETER D HIGHLANDER Facility:H1 Start: 01-06-2022 (DM) Diabetes Tondra Shannon [facility] Start: 01-06-2022 End: 01-06-2022 ambulatory Link Ortega Other [facility] Other Start: 12-29-2021 End: 12-30-2021 ambulatory PETER [...] Date Payer Category Payer Self-pay 1979 Unknown [id number] 2.16.84 0.1.122756.3.579.2.593 1979 Unknown [id number] .16.84 0.1.564000.3.579.2.593 1979 Unknown [id number] ..[id number] 0.1.444128.3.579.2.593 1979 Unknown [id number] ..[id number] 0.1.910789.3.579.2.593 1979 Unknown [id number] .16.84 0.1.537093.3.579.2.593 1979 Unknown [id number] 2.16.84 0.1.668786.3.579.2.593 1979 Unknown [id number] .16.84 0.1.773237.3.579.2.593 1979 Unknown [id number] .16.84 0.1.388753.3.579.2.593 1979 Unknown [id number] .16.84 0.1.121801.3.579.2.593 1979 Unknown [id number] .16.84 0.1.888634.3.579.2.593 1979 Unknown [id number] .16.84 0.1.906471.3.579.2.593 1979 Unknown [id number] .16.84 0.1.793163.3.579.2.593 1979 Unknown [id number] .16.84 0.1.719270.3.579.2.593 1979 Unknown [id number] 2.16.84 0.1.256087.3.579.2.593 1979 Unknown [id number] .16.84 0.1.539297.3.579.2.593 1979 Unknown [id number] 2.16.84 0.1.253353.3.579.2.593 1979 Unknown [id number] .16.84 0.1.801916.3.579.2.593 1979 Unknown [id number] .16.84 0.1.862448.3.579.2.593 1979 Unknown [id number] .16.84 0.1.840959.3.579.2.593 1979 Unknown [id number] .16.84 0.1.896051.3.579.2.593 1979 Unknown [id number] .16.84 0.1.871842.3.579.2.593 1979 Unknown [id number] .16.84 0.1.917398.3.579.2.593 1979 Unknown [id number] .16.84 0.1.367897.3.579.2.593 1979 Unknown [id number] .16.84 0.1.430025.3.579.2.593 1979 Unknown [id number] .16.84 0.1.526427.3.579.2.593 1979 Unknown [id number] .16.84 0.1.714046.3.579.2.593 1979 Unknown [id number] .16.84 0.1.036468.3.579.2.593 1979 Unknown [id number] .16.84 0.1.890949.3.579.2.593 1979 Unknown [id number] .16.84 0.1.600066.3.579.2.593 1979 Unknown [id number] 2.16.84 0.1.400248.3.579.2.593 1979 Unknown [id number] 2.16.84 0.1.097824.3.579.2.593 1979 Unknown [id number] 2.16.84 0.1.785416.3.579.2.593 1979 Unknown [id number] 2.16.84 0.1.654842.3.579.2.593 1979 Unknown [id number] 2.16.84 0.1.214830.3.579.2.593 1979 Unknown [id number] 2.16.84 0.1.731207.3.579.2.593 1979 Unknown [id number] 2.16.84 0.1.663819.3.579.2.593 1979 Unknown [id number] 2.16.84 0.1.192465.3.579.2.593 1979 Unknown [id number] 2.16.84 0.1.672517.3.579.2.593 1979 Unknown [id number] 2.16.84 0.1.472204.3.579.2.593 1979 Unknown [id number] 2.16.84 0.1.623464.3.579.2.593 1979 Unknown [id number] 2.16.84 0.1.572915.3.579.2.593 1979 Unknown [id number] 2.16.840. 1.146539.3.579.2.1259 1959 Unknown [id number] 2.16. 840.1.608311.19 1959 Unknown [id number] 2.16.8 40.1.915652.19 Unknown [id number] 2.16.8 40.1.839102.3.579.2.531 Social History Date Type Detail Facility Unknown if ever smoked [facility] Other Sex Assigned At Sex Assigned At Bir th [facility] Other Medical Equipment Procedure Code Equipment Code [...] for Lispro/ozempic 0.5mg sent to [facility] in [place] 01/04/23 7. 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 Feldman today [facility] Other 05-30-2023 NotePROCEDURE: XR FOOT LT MIN [...] Electronically authenticated by: FRANCO FRANCES Date: 2022-10-06 14:13[facility]05-04-2023 Evaluation note* Encounter Date Diagnosis Assessment Notes Treatment Notes Treatment Clinical Notes September, Type 2 diabetes mellitus with hyperglycemia (ICD-10 - E11.65) [facility] Other 04-17-2023 NotePROCEDURE: XR FOOT LT MIN [...] Electronically authenticated by: FERN SOSA Date: 2022-08-24 12:46[facility]02-16-2023 Evaluation note* Encounter Date Diagnosis Assessment Notes Treatment Notes Treatment Clinical Notes Jun, Type 2 diabetes mellitus with hyperglycemia (ICD-10 - E11.65) 1. Uncontrolled, a Type 2 diabetes with A1c of 8.2% 2. Blood glucose levels above target. Discussed with pt restarting ozempic, he had s/e from higher dose ozempic 1mg and concern with cost works at [employer]. Pt agreeable to starting sample ozempic 0.5mg [...] issues. 6. Prescriptions: Syringes/ozempic/st eglatro sent to [facility] in [place] 06/25/22 7. Prescriptions will not be filled [...] (hypertension) (ICD-10 - I10) on julissa Jun, [employer] current use of insulin (ICD-10 - Z79.4) Jun, Vitamin B 12 deficiency (ICD-10 - E53.8) 12/28 vit b 12 423 at target Jun, BMI 50.0-59.9, adult (ICD-10 - Z68.43) [facility] Other 02-07-2023 NotePROCEDURE: XR ANKLE LT MIN [...] Electronically authenticated by: GISSEL RUBIO Date: 2022-06-16 16:33[facility]02-07-2023 NotePROCEDURE: XR ANKLE LT MIN [...] Electronically authenticated by: GISSEL RUBIO Date: 2022-06-16 16:33[facility]08-30-2022 Evaluation note* Encounter Date Diagnosis [...] (hypertension) (ICD-10 - I10) on julissa Dec, 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) Dec, Vitamin B 12 deficiency (ICD-10 - E53.8) 12/28 vit b 12 423 at target Dec, BMI 45.0-49.9, adult (ICD-10 - Z68.42) 14 pound weight loss from last visit, continue with weight loss efforts [facility] Other 01-01-2021 History general Narrative - Reported* Type Description Date Medical History type II diabetes Medical History hypertension Medical History hyperlipidemia Medical History covid 05/2020 Surgical History Ulcer on left great toe X2 Surgical History Partial amputation Right great toe 01/2021 Surgical History All toes right foot amputated Hospitalization History Toe infection 2017 [facility] Other 01-01-2021 History general Narrative - Reported* Type Description Date Medical History type II diabetes Medical History hypertension Medical History hyperlipidemia Medical History covid 05/2020 Surgical History Ulcer on left great toe X2 Surgical History Partial amputation Right great toe 01/2021 Surgical History All toes right foot amputated Surgical History Left great toe corre ctive surgery with Dr. Feldman in [place] 10/2022 Hospitalization History Toe infection 2017 [facility] Other Evaluation noteNo InformationNortZaranga Other Summary Purpose Family History No Family [...] section and content) DATE CREATED AUTHOR 08/27/2021 [facility] dical Specialist DATE CREATED AUTHOR AUTHOR'S ORGANIZ ATION 10/17/2022 [facility] [facility] DATE CREATED AUTHOR AUTHOR'S ORGANIZ ATION 01/04/2023 [facility] DATE CREATED AUTHOR AUTHOR'S ORGANIZ ATION 03/25/2023 [facility] dical Specialists EPIC REASON FOR VISIT (unrecogniz ed section and content) DM follow up rescheduled by pt, Type 2 IDDM apt with [facility] [employer] JOURNEY[employer], 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 [employer] provides no warranty or guarantee of the accuracy or completeness of information in this document.
== END 2023-06-03 13:44 | disposition home or self-care (01) ==
LOC: WC 13:43
PROVIDERS: PCP Family Medicine; Visit Provider Physician Assistant
DX: T87.89 Other complications of amputation stump (principal); E11.621 Type 2 diabetes mellitus with foot ulcer; L97.528 Non-pressure chronic ulcer of other part of left foot with other specified severity; L97.522 Non-pressure chronic ulcer of other part of left foot with fat layer exposed
CPT/HCPCS: 29445

== ENCOUNTER 2023-06-08 10:11 | Outpatient (OUT) | payer OTHER, SELFPAY ==
--- OUTSIDE RECORDS SUMMARY | 2023-06-08 10:15 | XMS_ITS | CCD ---
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 Lauri Todd Calcium [Mass/Vol] 9.4 mg/dL Normal 8.5-10.1 [facility] Comment on above: Performed By: #### B MP #### [facility] [address] [address] [address] Lauri Todd Chloride [Moles/Vol] 101 mmol/L Normal 98-107 [facility] Comment on above: Performed By: #### B MP #### [facility] [address] [address] [address] Lauri Todd CO2 [Moles/Vol] 26.2 mmol/L Normal 21.0-32.0 [facility] Comment on above: Performed By: #### B MP #### [facility] [address] [address] [address] Lauri Todd Creatinine [Mass/Vol] 0.90 mg/dL Normal 0.70-1.30 [facility] Comment on above: Performed By: #### B MP #### [facility] [address] [address] [address] Lauri Todd EGFR-AF BRITISH >60 Normal >=60 [facility] Comment on above: Performed By: #### B MP #### [facility] [address] [address] [address] Lauri Todd EGFR-NON AF BRITISH >60 Normal >=60 [facility] Comment on above: Performed By: #### B MP #### [facility] [address] [place], [place] [address] Dr. Lauri Todd Glucose [Mass/Vol] 146 mg/dL Critically high 74-106 [facility] Comment on above: Performed By: #### B MP #### [facility] [address] [place], [place] [address] Dr. Lauri Todd Potassium [Moles/Vol] 4.5 mmol/L Normal 3.5-5.1 [facility] Comment on above: Performed By: #### B MP #### [facility] [address] [address] [address] Lauri Todd Sodium [Moles/Vol] 137 mmol/L Normal 136-145 [facility] Comment on above: Performed By: #### B MP #### [facility] [address] [address] [address] Lauri Todd Urea nitrogen [Mass/Vol] 16.0 mg/dL Normal 7.0-18.0 [facility] Comment on above: Performed By: #### B MP #### [facility] [address] [address] [address] Lauri Todd Urea nitrogen/Creatinin e [Mass ratio] 17.8 mg/mg Normal [facility] Comment on above: Performed By: #### B MP #### [facility] [address] [address] [address] Lauri Todd A1C HEMOGLOBINon 06-25-2022 HbA1c (Bld) [Mass fraction] 8.2 % [facility] Other Glucose - FINGER STICKon Glucose [Mass/Vol] 180 mg/dL [facility] Other HbA1c (Bld) [Mass fraction]o n 06-25-2022 A1C HEMOGLOBIN [facility] Other XR FOOT LT MIN 3 VIEWSon [...] by: RAFAEL WHITAKER Date: 2022-05-25 11:52 Normal [facility] A1C HEMOGLOBINon 01-06-2022 HbA1c (Bld) [Mass fraction] 7 % [facility] Other Glucose - FINGER STICKon Glucose [Mass/Vol] 148 mg/dL [facility] Other HbA1c (Bld) [Mass fraction]o n 01-06-2022 A1C HEMOGLOBIN [facility] Other Basic Metabolic Panelon 04- Anion gap [Moles/Vol] 20 mmol/L Normal 12-20 [facility] Special[facility] Comment on above: Result Comment: Effshahid ctive 05/15/2019 reference range changed. Performed By: #### B MP #### [facility] [address] [place], [place] [id number] Calcium [Mass/Vol] 10.0 mg/dL Normal 8.6-10.2 [facility] Comment on above: Performed By: #### B MP #### [facility] [address] [place], [place] [id number] Chloride [Moles/Vol] 100 mmol/L Normal 98-107 [facility] Specialist Comment on above: Performed By: #### B MP #### [facility] [address] [place], [place] [id number] CO2 [Moles/Vol] 22 mmol/L Normal 20-31 [facility] Specialist Comment on above: Performed By: #### B MP #### [facility] [address] [place], [place] [id number] Creatinine [Mass/Vol] 0.8 mg/dL Normal 0.7-1.4 [facility] Specialist Comment on above: Performed By: #### B MP #### [facility] [address] [place], [place] [id number] eGFRAA 129 mL/min/1.73m2 Normal >60 [facility] Specialist Comment on above: Performed By: #### B MP #### [facility] [address] [place], [place] [id number] eGFRNAA 107 mL/min/1.73m2 Normal >60 [facility] Specialist Comment on above: Performed By: #### B MP #### [facility] [address] [place], [place] [id number] Glucose [Mass/Vol] 140 mg/dL High 65-99 [facility] Specialist Comment on above: Result Comment: For FASTING Glucose --- ADA reference ranges: Normal 65-99 mg/dl Prediabetes 100-125 Diabetes >/= 126 Performed By: #### B MP #### [facility] [address] [place], [place] [id number] Potassium [Moles/Vol] 4.3 mmol/L Normal 3.5-5.5 [facility] Specialist Comment on above: Performed By: #### B MP #### [facility] [address] [place], [place] [id number] Sodium [Moles/Vol] 137 mmol/L Normal 135-146 [facility] [employer] Supervisor Comment on above: Performed By: #### B MP #### [facility] [address] [place], [place] [id number] Urea nitrogen [Mass/Vol] 17 mg/dL Normal 7-25 [facility] Specialist Comment on above: Performed By: #### B MP #### [facility] [address] [place], [place] [id number] Vital Signs Date Time Vital Sign Value Performing Clinician Facility 01-04-2023 08:45-0400 Body height Link Ortega Other [facility] Other 01-04-2023 08:45-0400 Body mass index (BMI) [Ratio] 51.37 kg/m2 Tondra Mapus Other [facility] Other 01-04-2023 08:45-0400 Body weight 171.82 kg Tondra Mapus Other [facility] Other 01-04-2023 08:45-0400 Diastolic blood pressure 85 mm[Hg] Tondra Mapus Other [facility] Other 01-04-2023 08:45-0400 Respiratory rate 18 /min Tondra Mapus Other [facility] Other 01-04-2023 08:45-0400 SaO2% (BldA) [Mass fraction] 98 % Tondra Mapus Other [facility] Other 01-04-2023 08:45-0400 Systolic blood pressure 150 mm[Hg] Tondra Mapus Other [facility] Other 06-25-2022 09:45-0500 Body height Tondra Mapus Other [facility] Other 06-25-2022 09:45-0500 Body mass index (BMI) [Ratio] 51.14 kg/m2 Tondra Mapus Other [facility] Other 06-25-2022 09:45-0500 Body weight 171.05 kg Tondra Mapus Other [facility] Other 06-25-2022 09:45-0500 Diastolic blood pressure 80 mm[Hg] Tondra Mapus Other [facility] Other 06-25-2022 09:45-0500 Respiratory rate 18 /min Tondra Mapus Other [facility] Other 06-25-2022 09:45-0500 SaO2% (BldA) [Mass fraction] 95 % Tondra Mapus Other [facility] Other 06-25-2022 09:45-0500 Systolic blood pressure 139 mm[Hg] Tondra Mapus Other [facility] Other 01-06-2022 09:45-0400 Body height Tondra Mapus Other [facility] Other 01-06-2022 09:45-0400 Body mass index (BMI) [Ratio] 48.28 kg/m2 Tondra Mapus Other [facility] Other 01-06-2022 09:45-0400 Body weight 161.48 kg Tondra Mapus Other [facility] Other 01-06-2022 09:45-0400 Diastolic blood pressure 71 mm[Hg] Tondra Mapus Other [facility] Other 01-06-2022 09:45-0400 Respiratory rate 20 /min Tondra Mapus Other [facility] Other 01-06-2022 09:45-0400 SaO2% (BldA) [Mass fraction] 95 % Tondra Mapus Other [facility] Other 01-06-2022 09:45-0400 Systolic blood pressure 124 mm[Hg] Tondra Mapus Other [facility] Other Encounters Encounter Date Encounter Type Care Provider Facility Start: 03-24-2023 End: 03-24-2023 ambulatory GLENIS HINSON Not Available Start: 01-04-2023 (DM) [facility] Start: 01-04-2023 End: 01-04-2023 ambulatory Natalie Hernandez [facility] Other Start: 12-21-2022 End: 12-21-2022 ambulatory Tondra Mapus Other [facility] Other Start: 12-21-2022 Telephone encounter Tondra Dayannaus [facility] Start: 10-12-2022 [facility] Start: 10-06-2022 End: 10-07-[address] [facility] Facility:H1 Start: 10-01-2022 Encounter for preprocedural cardiovascular examination [facility] Start: 10-01-2022 Encounter for preprocedural laboratory examination [facility] Start: 09-30-2022 End: 10-01-[address] [facility] Facility:H1 Start: 09-30-2022 End: 10-01-2022 Encounter for preprocedural laboratory examination [facility] Facility:H1 Start: 09-15-2022 End: 09-16-2022 ambulatory NAATNAEL [facility] Facility:H1 Start: 09-10-2022 End: 09-10-2022 ambulatory Tondra Mapus Other [facility] Other Start: 09-10-2022 Telephone encounter Tondra Mapus [facility] Start: 08-24-2022 End: 08-25-2022 ambulatory [facility] Selina [facility] Facility:H1 Start: 08-10-2022 End: 08-10-2022 ambulatory Tondra Mapus Other [facility] Other Start: 08-10-2022 Telephone encounter Tondra Mapus [facility] Start: 08-03-2022 End: 08-04-[address] NATALIE HERNANDEZ Facility:H1 Start: 07-13-2022 End: 07-14-2022 ambulatory MARTELL NAVAS Facility:H1 Start: 06-30-2022 End: 07-01-2022 ambulatory PETER D HIGHLANDER Facility:H1 Start: 06-25-2022 (DM) Diabetes Tondra Mapus [facility] Start: 06-25-2022 End: 06-25-2022 ambulatory Tondra Mapus Other [facility] Other Start: 06-16-2022 End: 06-17-2022 ambulatory PETER [...] 02-18-2022 End: 02-18-2022 ambulatory Tondra Mapus Other [facility] Other Start: 02-18-2022 Telephone encounter Link Ortega [facility] Start: 02-09-2022 End: 02-10-2022 ambulatory PETER D HIGHLANDER Facility:H1 Start: 01-26-2022 End: 01-27-2022 ambulatory PETER D HIGHLANDER Facility:H1 Start: 01-13-2022 End: 01-14-2022 ambulatory PETER D HIGHLANDER Facility:H1 Start: 01-06-2022 (DM) Diabetes Tondra Shannon [facility] Start: 01-06-2022 End: 01-06-2022 ambulatory Link Ortega Other [facility] Other Start: 12-29-2021 End: 12-30-2021 ambulatory PETER [...] Date Payer Category Payer Self-pay 1979 Unknown [id number] 2.16.84 0.1.937223.3.579.2.593 1979 Unknown [id number] .16.84 0.1.230430.3.579.2.593 1979 Unknown [id number] ..84 0.1.431298.3.579.2.593 1979 Unknown [id number] ..[id number] 0.1.672803.3.579.2.593 1979 Unknown [id number] .16.84 0.1.747159.3.579.2.593 1979 Unknown [id number] 2.16.84 0.1.479756.3.579.2.593 1979 Unknown [id number] .16.84 0.1.514650.3.579.2.593 1979 Unknown [id number] .16.84 0.1.125783.3.579.2.593 1979 Unknown [id number] .16.84 0.1.455514.3.579.2.593 1979 Unknown [id number] .16.84 0.1.162114.3.579.2.593 1979 Unknown [id number] .16.84 0.1.704114.3.579.2.593 1979 Unknown [id number] .16.84 0.1.749921.3.579.2.593 1979 Unknown [id number] .16.84 0.1.172032.3.579.2.593 1979 Unknown [id number] 2.16.84 0.1.436053.3.579.2.593 1979 Unknown [id number] .16.84 0.1.181649.3.579.2.593 1979 Unknown [id number] 2.16.84 0.1.829940.3.579.2.593 1979 Unknown [id number] .16.84 0.1.416152.3.579.2.593 1979 Unknown [id number] .16.84 0.1.587350.3.579.2.593 1979 Unknown [id number] .16.84 0.1.984326.3.579.2.593 1979 Unknown [id number] .16.84 0.1.376830.3.579.2.593 1979 Unknown [id number] .16.84 0.1.589951.3.579.2.593 1979 Unknown [id number] .16.84 0.1.347395.3.579.2.593 1979 Unknown [id number] .16.84 0.1.683026.3.579.2.593 1979 Unknown [id number] .16.84 0.1.952637.3.579.2.593 1979 Unknown [id number] .16.84 0.1.663123.3.579.2.593 1979 Unknown [id number] .16.84 0.1.102776.3.579.2.593 1979 Unknown [id number] .16.84 0.1.747627.3.579.2.593 1979 Unknown [id number] .16.84 0.1.115668.3.579.2.593 1979 Unknown [id number] .16.84 0.1.356193.3.579.2.593 1979 Unknown [id number] 2.16.84 0.1.891985.3.579.2.593 1979 Unknown [id number] 2.16.84 0.1.983028.3.579.2.593 1979 Unknown [id number] 2.16.84 0.1.096108.3.579.2.593 1979 Unknown [id number] 2.16.84 0.1.504047.3.579.2.593 1979 Unknown [id number] 2.16.84 0.1.514746.3.579.2.593 1979 Unknown [id number] 2.16.84 0.1.666170.3.579.2.593 1979 Unknown [id number] 2.16.84 0.1.807732.3.579.2.593 1979 Unknown [id number] 2.16.84 0.1.617958.3.579.2.593 1979 Unknown [id number] 2.16.84 0.1.308264.3.579.2.593 1979 Unknown [id number] 2.16.84 0.1.821103.3.579.2.593 1979 Unknown [id number] 2.16.84 0.1.754842.3.579.2.593 1979 Unknown [id number] 2.16.84 0.1.132152.3.579.2.593 1979 Unknown [id number] 2.16.840. 1.760293.3.579.2.1259 1959 Unknown [id number] 2.16. 840.1.055136.19 1959 Unknown [id number] 2.16.8 40.1.395053.19 Unknown [id number] 2.16.8 40.1.657149.3.579.2.531 Social History Date Type Detail Facility Unknown if ever smoked [facility] Other Sex Assigned At Sex Assigned At Bir th [facility] Other Medical Equipment Procedure Code Equipment Code [...] for Lispro/ozempic 0.5mg sent to [facility] in [place] 01/04/23 7. 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 Feldman today [facility] Other 05-30-2023 NotePROCEDURE: XR FOOT LT MIN [...] Electronically authenticated by: FRANCO FRANCES Date: 2022-10-06 14:13[facility]05-04-2023 Evaluation note* Encounter Date Diagnosis Assessment Notes Treatment Notes Treatment Clinical Notes September, Type 2 diabetes mellitus with hyperglycemia (ICD-10 - E11.65) [facility] Other 04-17-2023 NotePROCEDURE: XR FOOT LT MIN [...] Electronically authenticated by: FERN SOSA Date: 2022-08-24 12:46[facility]02-16-2023 Evaluation note* Encounter Date Diagnosis Assessment Notes Treatment Notes Treatment Clinical Notes Jun, Type 2 diabetes mellitus with hyperglycemia (ICD-10 - E11.65) 1. Uncontrolled, a Type 2 diabetes with A1c of 8.2% 2. Blood glucose levels above target. Discussed with pt restarting ozempic, he had s/e from higher dose ozempic 1mg and concern with cost works at [employer]. Pt agreeable to starting sample ozempic 0.5mg [...] issues. 6. Prescriptions: Syringes/ozempic/st eglatro sent to [facility] in [place] 06/25/22 7. 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 (ICD-10 - Z79.4) Jun, Vitamin B 12 deficiency (ICD-10 - E53.8) 12/28 vit b 12 423 at target Jun, BMI 50.0-59.9, adult (ICD-10 - Z68.43) [facility] Other 02-07-2023 NotePROCEDURE: XR ANKLE LT MIN [...] Electronically authenticated by: GISSEL RUBIO Date: 2022-06-16 16:33[facility]02-07-2023 NotePROCEDURE: XR ANKLE LT MIN 3 V, [...] Electronically authenticated by: GISSEL RUBIO Date: 2022-06-16 16:33[facility]08-30-2022 Evaluation note* Encounter Date Diagnosis Assessment Notes [...] (hypertension) (ICD-10 - I10) on julissa Dec, 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) Dec, Vitamin B 12 deficiency (ICD-10 - E53.8) 12/28 vit b 12 423 at target Dec, BMI 45.0-49.9, adult (ICD-10 - Z68.42) 14 pound weight loss from last visit, continue with weight loss efforts [facility] Other 01-01-2021 History general Narrative - Reported* Type Description Date Medical History type II diabetes Medical History hypertension Medical History hyperlipidemia Medical History covid 05/2020 Surgical History Ulcer on left great toe X2 Surgical History Partial amputation Right great toe 01/2021 Surgical History All toes right foot amputated Hospitalization History Toe infection 2017 [facility] Other 01-01-2021 History general Narrative - Reported* Type Description Date Medical History type II diabetes Medical History hypertension Medical History hyperlipidemia Medical History covid 05/2020 Surgical History Ulcer on left great toe X2 Surgical History Partial amputation Right great toe 01/2021 Surgical History All toes right foot amputated Surgical History Left great toe corre ctive surgery with Dr. Feldman in [place] 10/2022 Hospitalization History Toe infection 2017 [facility] Other Evaluation noteNo InformationNortTicket [employer] Other Summary Purpose Family History No Family [...] section and content) DATE CREATED AUTHOR 08/27/2021 [facility] DATE CREATED AUTHOR AUTHOR'S ORGANIZ ATION 10/17/2022 [facility] DATE CREATED AUTHOR AUTHOR'S ORGANIZ ATION 01/04/2023 [facility] DATE CREATED AUTHOR AUTHOR'S ORGANIZ ATION 03/25/2023 [facility] EPIC REASON FOR VISIT (unrecogniz ed section and content) DM follow up rescheduled by pt, Type 2 IDDM apt with [facility] [employer], DOPE EDGER-C, BC-ADM, Last visit 07/01/21[facility] refill test stripsDM f/u pt rescheduled apt, Type 2 IDDM apt with [facility] [employer], DOPE EDGER-C, BC-ADM, last visit 01/06/22[facility] refill requestTKM - REFILL REQUESTTKM office notesDM f/u pt rescheduled apt, Type 2 IDDM apt with [facility] [employer]PA[employer], DOPE EDGER-C, 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 [employer] provides no warranty or guarantee of the accuracy or completeness of information in this document.
== END 2023-06-08 10:12 | disposition home or self-care (01) ==
LOC: WC 10:11
PROVIDERS: PCP Family Medicine; Visit Provider Podiatrist Foot & Ankle Surgery
DX: E11.621 Type 2 diabetes mellitus with foot ulcer (principal); L97.528 Non-pressure chronic ulcer of other part of left foot with other specified severity; L97.522 Non-pressure chronic ulcer of other part of left foot with fat layer exposed
CPT/HCPCS: 11042

== ENCOUNTER 2023-06-22 16:28 | Outpatient (OUT) | payer OTHER, SELFPAY | END 2023-06-22 16:29 | disposition home or self-care (01) | LOC: WC 16:28 | PROVIDERS: PCP Family Medicine; Visit Provider Podiatrist Foot & Ankle Surgery | DX: E11.621 Type 2 diabetes mellitus with foot ulcer (principal); L97.528 Non-pressure chronic ulcer of other part of left foot with other specified severity | CPT/HCPCS: 11042 ==

== ENCOUNTER 2023-07-13 15:35 | Outpatient (OUT) | payer OTHER, SELFPAY | END 2023-07-13 15:36 | disposition home or self-care (01) | LOC: WC 15:35 | PROVIDERS: PCP Family Medicine; Visit Provider Podiatrist Foot & Ankle Surgery | DX: E11.621 Type 2 diabetes mellitus with foot ulcer (principal); L97.528 Non-pressure chronic ulcer of other part of left foot with other specified severity; L97.422 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 layer exposed | CPT/HCPCS: 11042 ==

== ENCOUNTER 2023-07-27 15:15 | Outpatient (OUT) | payer OTHER, SELFPAY | END 2023-07-27 15:16 | disposition home or self-care (01) | LOC: WC 15:15 | PROVIDERS: PCP Family Medicine; Visit Provider Podiatrist Foot & Ankle Surgery | DX: E11.621 Type 2 diabetes mellitus with foot ulcer (principal); L97.528 Non-pressure chronic ulcer of other part of left foot with other specified severity; L97.422 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 layer exposed | CPT/HCPCS: 11042 ==

== ENCOUNTER 2023-08-10 11:40 | Outpatient (OUT) | payer OTHER, SELFPAY ==
--- OUTSIDE RECORDS SUMMARY | 2023-08-10 11:58 | XMS_ITS | CCD ---
Author Organization [facility] Care Team Providers Care Delivery Recruiter Name Role Phone Link Ortega Unavailable NATANAEL [...] NAVAS Admitting Unavailable NATANAEL FELDMAN Attending Unavailable NAATNAEL FELDMAN Admitting Unavailable WONDERLY, DR [...] DR NATALIE Lozada Primary Care Unavailable HIGHLANDER, NTAANAEL Marks Attending Unavailable HIGHLANDER, NATANAEL Marks Admitting [...] Care Unavailable HIGHLANDER, NATANAEL Marks Attending Unavailable FRANCIA, NATANAEL Marks Admitting Unavailable WONDERLY, DR NATALIE Lozada Primary Care Unavailable HIGHLANDER, NATANAEL Marks Attending Unavailable MICHELLEANDER, NATANAEL Marks Admitting Unavailable WONDERLY, DR NATALIE [...] Care Unavailable HIGHLANDER, NATANAEL Marks Admitting Unavailable Wonderly Natalie AVALOS Primary Care Provider MD Damon Claros Attending Provider MD Natalie Hernandez Primary Care Provider [phone] Natalie Hernandez [facility] Unavailable Damon Claros Attending Unavailable Damon Claros Admitting Unavailable BLOSSOM CODY Attending Unavailable BLOSSOM CODY Attending Unavailable BLOSSOM CODY Attending Unavailable MIRLANDE PECK Attending Unavailable Medications Current Medications Medication Drug Class(es) Dates Sig (Normalized) Sig (Original) 0.25 MG, 0.5 MG Dose 3 ML semaglutide 0.68 MG/ML Pen Injector [Ozempic] (1 source) Start: 01-04-2023 inject 0.5 mg by subcutaneous injection every week Ozempic (0.25 or 0.5 MG/DOSE) 2 MG/3ML 0.5mg Subcutaneous once weekly for 84 days Dec, Active aspirin 81 mg delayed release oral tablet (12 sources) Platelet Aggregation Inhibitor, Nonsteroidal Anti-inflammatory Drug take 1 tablet by mouth in the morning aspirin 81 MG EC tablet Take 1 tablet by mouth in the morning. 0 Active take 1 tablet by janna th every twenty-four hours Aspirin 81 MG 1 tablet Orally Once a day Active atorvastatin 40 mg oral tablet (12 sources) HMG-CoA Reductase Inhibitor Start: 02-08-2023 take 1 tablet by mouth in the morning atorvastatin (Lipitor) 40 MG tablet Indications: Pure hyperglyceridemia (CMS/HCC) Take 1 tablet (40 mg) by mouth in the morning. 90 tablet 3 02/08/2023 Active ertugliflozin 15 mg oral tablet (12 sources) take 1 tablet by mouth in the morning Steglatro Take 1 tablet by mouth in the morning. 0 Active insulin glargine 100 unt/ml injectable solution (3 sources) Insulin Analog inject 44 [IU] by subcutaneous injection in the morning insulin glargine (Lantus) 100 UNIT/ML injection Inject 44 Units under the skin in the morning and 44 Units in the evening. 0 Active insulin glargine-yfgn 100 unit/ml solution (2 sources) Insulin Glargine -yfgn 100 UNIT/ML INJECT 46 UNITS SQ bid (titrate up to max 50 units/day) Active insulin glargine-yfgn 100 UNT/ML Injectable Solution (2 sources) inject 44 [IU] by subcutaneous injection twice daily, then inject 100 [IU] by subcutaneous injection once daily Insulin Glargine-yfgn 100 UNIT/ML INJECT 44 UNITS UNDER THE SKIN TWICE DAILY DIRECTED MAY TITRATE UP TO 100 UNITS PER DAY for 90 Active insulin lispro 100 unt/ml injectable solution (10 sources) Insulin Analog Insulin Lispro 1 00 UNIT/ML 1:4 carb ratio ac tid. 1:15 corrective scale ac tid (hs if >200 half dose) as directed for 90 days (expect up to 60 units/day) Active Insulin Lispro 1 00 UNIT/ML 1:5 carb ratio ac tid. 1:15 corrective scale ac tid (hs if >200 half dose) as directed for 90 days expect up to max 60 units/day Active Insulin Lispro 1 00 UNIT/ML 1:4 carb ratio ac tid. 1:15 corrective scale ac tid (hs if >200 half dose) as directed for 90 days (expect up to 60 units/day) Active insulin lispro (HumaLOG) 100 UNIT/ML injection (3 sources) insulin lispro ( HumaLOG) 100 UNIT/ML injection Inject 1 Units under the skin in the morning and 1 Units at noon and 1 Units in the evening. Inject with meals. Per ISS scale from endo. 0 Active insulin lispro ( HumaLOG) 100 UNIT/ML injection Inject 1 Units under the skin in the morning and 1 Units at noon and 1 Units in the evening. Inject with meals. 0 Active 3 ml liraglutide 6 mg/ml pen injector (2 sources) GLP-1 Receptor Agonist Start: 06-09-2023 inject 1.8 mg by subcutaneous injection once daily Victoza 18 MG/3ML 1.8mg Subcutaneous daily for 84 days May, Active metFORMIN hydrochloride 500 mg oral tablet (13 sources) Biguanide take 2 tablets by mouth in the morning metFORMIN (Glucophage) 500 MG tablet Take 2 tablets by mouth in the morning and 2 tablets in the evening. Take with meals. 0 Active OneTouch Verio - (8 sources) Start: 02-18-2022 OneTouch Verio - Use with One touch verio meter In Vitro 3 times per day for 90 days E11.65 Feb, Active OneTouch Verio - USE DIRECTED THREE TIMES DAILY for 90 Active 0.25 mg, 0.5 mg dose 1.5 ml semaglutide 1.34 mg/ml pen injector (4 sources) Start: 06-25-2022 Ozempic (0.25 or 0.5 MG/DOSE) 2 MG/1.5ML [...] Once a week for 28 days Not-Taking acetaminophen 325 mg / oxyCODONE hydrochloride 5 mg oral tablet (2 sources) Opioid Agonist Start: 05-17-2023 End: 06-16-2023 take 1 tablet by mouth every eight hours as needed for pain oxyCODONE-acetamin ophen (Percocet) 5-325 MG tablet TAKE 1 TABLET BY MOUTH EVERY 8 HOURS FOR 7 DAYS NEEDED FOR PAIN 0 05/17/2023 06/16/2023 Discontinued (Therapy completed) cephalexin 500 mg oral capsule (2 sources) Cephalosporin Antibacterial take 1 capsule by mouth every six hours Cephalexin 500 MG 1 capsule Orally every 6 hrs Not-Taking empagliflozin 10 mg oral tablet (2 sources) Sodium-Glucose Cotransporter 2 Inhibitor take 1 tablet by mouth every twenty-four hours Jardiance 10 MG 1 tablet Orally Once a day for 30 day(s) Not-Taking lisinopril 30 mg oral tablet (14 sources) Angiotensin Converting Enzyme Inhibitor Start: 06-16-2023 End: 06-16-2023 take 1 tablet by mouth in the morning lisinopril 30 MG tablet Indications: Essential hypertension (CMS/HCC) Take 1 tablet (30 mg) by mouth in the morning for 150 doses. 30 tablet 4 06/16/2023 06/16/2023 Discontinued End: 06-16-2023 take 1 tablet by mouth in the morning lisinopril 20 MG tablet Take 1 tablet by mouth in the morning. 0 06/16/2023 Discontinued (Dose adjustment) Problems Active Problems Problem Classification Problem Date Documented Da te Episodic/Chronic Acquired foot deformities (7 sources) Hallux rigidus, unspecified foot; Translations: [Hallux rigidus, left foot] Onset: 05-13-2022 10-02-2022 Chronic Acquired foot deformities (1 source) Flat foot [pes planus] (acquired), left foot; Translations: [FLAT FOOT PES PLANUS ACQ LT FOOT] Onset: 10-07-2022 Episodic Administrative/social admission (4 sources) Dietary counseling and surveillance Onset: 01-06-2022 Resolved: 01-06-2022 Episodic Chronic ulcer of skin (17 sources) Non-pressure chronic ulcer of other part of unspecified foot with unspecified severity; Translations: [Non-pressure chronic ulcer of other part of left foot with fat layer exposed] Onset: 05-25-2022 Resolved: 06-17-2023 10-02-2022 Chronic Diabetes mellitus with complications (20 sources) Hyperglycemia due to type 2 diabetes mellitus; Translations: [Type 2 diabetes mellitus with hyperglycemia] Onset: 01-06-2022 Resolved: 06-17-2023 Chronic Disorders of lipid metabolism (20 sources) Hyperlipidemia; Translations: [Hyperlipidemia, unspecified] Onset: 01-06-2022 Resolved: 06-17-2023 Chronic Essential hypertension (18 sources) Hypertensive disorder; Translations: [Essential (primary) hypertension] Onset: 01-06-2022 Resolved: 01-06-2022 Chronic Nutritional deficiencies (9 sources) Vitamin D deficiency; Translations: [Vitamin D deficiency, unspecified] Chronic Nutritional deficiencies (9 sources) Deficiency of other specified B group vitamins; Translations: [Cobalamin deficiency] Onset: 01-06-2022 Resolved: 01-06-2022 Episodic Open wounds of extremities (8 sources) Traumatic amputation of toe; 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, initial encounter] Onset: 10-02-2022 10-02-2022 Chronic Open wounds of extremities (1 source) Unspecified open wound, unspecified foot, initial encounter Episodic Osteoarthritis (5 sources) Arthritis of left foot; Translations: [Primary osteoarthritis, left ankle and foot] Onset: 10-02-2022 10-02-2022 Chronic Other aftercare (11 sources) Long-term current use of insulin; Translations: [intermediate manager (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] 06-17-2023 Episodic Other aftercare (4 sources) alf (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 Onset: 01-06-2022 Resolved: 01-06-2022 Episodic Other bone disease and musculoskeletal deformities (5 sources) Acquired absence of right foot; Translations: [ACQUIRED ABSENCE OF RIGHT FOOT] Onset: 11-24-2021 Chronic Other bone disease and musculoskeletal deformities (1 source) Acquired absence of other toe(s), unspecified side Episodic Other bone disease and musculoskeletal deformities (2 sources) Absence of toe; Translations: [Acquired absence of other toe(s), unspecified side] 06-17-2023 Episodic Other connective tissue disease (4 sources) Pain in left foot; Translations: [PAIN IN LEFT FOOT] Onset: 10-06-2022 Episodic Other nutritional; endocrine; and metabolic disorders (9 sources) Metabolic syndrome X; Translations: [Metabolic syndrome] Chronic Other nutritional; endocrine; and metabolic disorders (20 sources) Body mass index 40+ - severely obese; Translations: [Body mass index (BMI) 50.0-59.9, adult] 06-17-2023 Chronic Other nutritional; endocrine; and metabolic disorders (1 source) Body mass index (BMI) 45.0-49.9, adult Onset: 01-06-2022 Resolved: 01-06-2022 Chronic Other nutritional; endocrine; and metabolic disorders (3 sources) Body mass index (BMI) 50.0-59.9, adult Chronic Other nutritional; endocrine; and metabolic disorders (1 source) Morbid (severe) obesity due to excess calories; Translations: [MORBID SEVERE OBES D/T EXCESS JIMMY] Onset: 07-06-2022 Chronic Other nutritional; endocrine; and metabolic disorders (5 sources) Lipoprotein deficiency disorder; Translations: [Lipoprotein deficiency] Onset: 10-02-2022 10-02-2022 Chronic Other nutritional; endocrine; and metabolic disorders (5 sources) Morbid obesity; Translations: [Morbid (severe) obesity due to excess calories] Onset: 10-02-2022 10-02-2022 Chronic Other nutritional; endocrine; and metabolic disorders (5 sources) H/O: Disorder; Translations: [Personal history of other endocrine, nutritional and metabolic disease] Onset: 04-13-2018 Resolved: 06-17-2023 03-22-2023 Episodic Other skin disorders (5 sources) Nail dystrophy; Translations: [NAIL DYSTROPHY] Onset: 11-20-2021 Episodic Other skin disorders (1 source) Changes in skin texture Episodic Other upper respiratory disease (2 sources) Nasal congestion; Translations: [Nasal congestion] 06-16-2023 Episodic Past or Other Problems Problem Classification Problem Date Documented Date Episodic/Chronic Complications of surgical procedures or medical care (5 sources) Disruption of wound, unspecified, initial encounter; Translations: [DISRUPTION WOUND UNS INITIAL ENC] Onset: 12-08-2021 Episodic Infective arthritis and osteomyelitis (except that caused by tuberculosis or sexually transmitted disease) (6 sources) Osteomyelitis of right foot; Translations: [Osteomyelitis, unspecified] Onset: 10-02-2022 Resolved: 06-17-2023 10-02-2022 Chronic Other infections; including parasitic (3 sources) Personal history of other infectious and parasitic diseases; Translations: [History of COVID-19] Onset: 05-13-2020 Resolved: 06-17-2023 10-02-2022 Episodic Other non-traumatic joint disorders (1 source) [...] Interpretation Reference Range Facil ity A1C HEMOGLOBINon 06-09-2023 HbA1c (Bld) [Mass fraction] 8.2 % [facility] Other Glucose - FINGER STICKon Glucose [Mass/Vol] 170 mg/dL [facility] Other HbA1c (Bld) [Mass fraction]o n 06-09-2023 A1C HEMOGLOBIN [employer] Other A1C HEMOGLOBINon 01-04-2023 HbA1c (Bld) [Mass fraction] 8.9 % [facility] Other Glucose - FINGER STICKon Glucose [Mass/Vol] 201 mg/dL [facility] Other HbA1c (Bld) [Mass fraction]o n 01-04-2023 A1C HEMOGLOBIN [employer] Other PROF CHEM 8 (BAS METB)on Anion gap [Moles/Vol] 14.3 mmol/L Normal [facility] Comment on above: Performed By: #### B MP #### [facility] [address], [place] [address] Dr. Lauri Todd Calcium [Mass/Vol] 9.4 mg/dL Normal 8.5-10.1 [facility] Comment on above: Performed By: #### B MP #### [facility] [address], [place] [address] Dr. Lauri Todd Chloride [Moles/Vol] 101 mmol/L Normal 98-107 [facility] Comment on above: Performed By: #### B MP #### [facility] [address] [place] [address] [address] Lauri Todd CO2 [Moles/Vol] 26.2 mmol/L Normal 21.0-32.0 [facility] Comment on above: Performed By: #### B MP #### [facility] [address] [address] [address] Lauri Todd Creatinine [Mass/Vol] 0.90 mg/dL Normal 0.70-1.30 [facility] Comment on above: Performed By: #### B MP #### [facility] [address] [address] [address] Lauri Todd EGFR-AF ENGLISH >60 Normal >=60 [facility] Comment on above: Performed By: #### B MP #### [facility] [address] [address] [address] Lauri Todd EGFR-NON AF ENGLISH >60 Normal >=60 [facility] Comment on above: Performed By: #### B MP #### [facility] [address] [address] [address] Lauri Todd Glucose [Mass/Vol] 146 mg/dL Critically high 74-106 [facility] Comment on above: Performed By: #### B MP #### [facility] [address] [address] [address] Lauri Todd Potassium [Moles/Vol] 4.5 mmol/L Normal 3.5-5.1 [facility] Comment on above: Performed By: #### B MP #### [facility] [address] [address] [address] Lauri Todd Sodium [Moles/Vol] 137 mmol/L Normal 136-145 [facility] Comment on above: Performed By: #### B MP #### [facility] [address] [address] [address] Lauri Todd Urea nitrogen [Mass/Vol] 16.0 mg/dL Normal 7.0-18.0 [facility] Comment on above: Performed By: #### B MP #### [facility] [address], [place] [address] Dr. Lauri Todd Urea nitrogen/Creatinin e [Mass ratio] 17.8 mg/mg Normal [facility] Comment on above: Performed By: #### B MP #### [facility] [address], [place] [address] Dr. Lauri Todd A1C HEMOGLOBINon 06-25-2022 HbA1c (Bld) [Mass fraction] 8.2 % [facility] Other Glucose - FINGER STICKon Glucose [Mass/Vol] 180 mg/dL [facility] Other HbA1c (Bld) [Mass fraction]o n 06-25-2022 A1C HEMOGLOBIN [employer] Other XR FOOT LT MIN 3 VIEWSon [...] by: RAFAEL WHITAKER Date: 2022-05-25 11:52 Normal [facility] A1C HEMOGLOBINon 01-06-2022 HbA1c (Bld) [Mass fraction] 7 % [facility] Other Glucose - FINGER STICKon Glucose [Mass/Vol] 148 mg/dL [facility] Other HbA1c (Bld) [Mass fraction]o n 01-06-2022 A1C HEMOGLOBIN [employer] Other Basic Metabolic Panelon 04- Anion gap [Moles/Vol] 20 mmol/L Normal 12-20 [facility] Equipment Inspector Comment on above: Result Comment: Effshahid ctive 05/15/2019 reference range changed. Performed By: #### B MP #### [facility] [address], [place] [id number] Calcium [Mass/Vol] 10.0 mg/dL Normal 8.6-10.2 [facility] [place] Equipment Inspector Comment on above: Performed By: #### B MP #### [facility] [address], [place] [id number] Chloride [Moles/Vol] 100 mmol/L Normal 98-107 [facility] Specialist Comment on above: Performed By: #### B MP #### [facility] [address], [place] [id number] CO2 [Moles/Vol] 22 mmol/L Normal 20-31 [facility] Specialist Comment on above: Performed By: #### B MP #### [facility] [address], [place] [id number] Creatinine [Mass/Vol] 0.8 mg/dL Normal 0.7-1.4 [facility] Specialist Comment on above: Performed By: #### B MP #### [facility] [address], [place] [id number] eGFRAA 129 mL/min/1.73m2 Normal >60 [facility] Specialist Comment on above: Performed By: #### B MP #### [facility] [address], [place] [id number] eGFRNAA 107 mL/min/1.73m2 Normal >60 [facility] Specialist Comment on above: Performed By: #### B MP #### [facility] [address], [place] [id number] Glucose [Mass/Vol] 140 mg/dL High 65-99 [facility] [place] Equipment Inspector Comment on above: Result Comment: For FASTING Glucose --- ADA reference ranges: Normal 65-99 mg/dl Prediabetes 100-125 Diabetes >/= 126 Performed By: #### B MP #### [facility] [address], [place] [id number] Potassium [Moles/Vol] 4.3 mmol/L Normal 3.5-5.5 [facility] Equipment Inspector Comment on above: Performed By: #### B MP #### [facility] [address], [place] [id number] Sodium [Moles/Vol] 137 mmol/L Normal 135-146 [facility] Specialist Comment on above: Performed By: #### B MP #### [facility] [address], [place] [id number] Urea nitrogen [Mass/Vol] 17 mg/dL Normal 7-25 [facility] Specialist Comment on above: Performed By: #### B MP #### [facility] [address], [place] [id number] Vital Signs Date Time Vital Sign Value Performing Clinician Facility 06-16-2023 11:33-0500 Diastolic blood pressure 84 mm[Hg] Blossom Cody SENIOR LINUX ADMINISTRATOR Work Phone: [facility] 06-16-2023 11:33-0500 Systolic blood pressure 154 mm[Hg] Blossom Cody SENIOR LINUX ADMINISTRATOR Work Phone: [facility] 06-16-2023 11:02-0500 Body mass index (BMI) [Ratio] 52.12 kg/m2 Blossom Cody SENIOR LINUX ADMINISTRATOR Work Phone: [facility] 06-16-2023 11:02-0500 Body weight 171.91 kg Blossom Cody SENIOR LINUX ADMINISTRATOR Work Phone: [facility] 06-16-2023 11:02-0500 Heart rate 92 /min Blossom Cody SENIOR LINUX ADMINISTRATOR Work Phone: [facility] 06-09-2023 08:45-0500 Body height Link Ortega Other [facility] Other 06-09-2023 08:45-0500 Body height 182.88 cm MD Natalie Hernandez Work Phone: [facility] 06-09-2023 08:45-0500 Body mass index (BMI) [Ratio] 51.33 kg/m2 Tondra Mapus Other [facility] Other 06-09-2023 08:45-0500 Body weight 171.69 kg Tondra Mapus Other [facility] Other 06-09-2023 08:45-0500 Body weight 171.68 kg MD Natalie Hernandez Work Phone: [facility] 06-09-2023 08:45-0500 Diastolic blood pressure 80 mm[Hg] Tondra Mapus Other [facility] 06-09-2023 08:45-0500 Respiratory rate 18 /min Tondra Mapus Other [facility] Other 06-09-2023 08:45-0500 SaO2% (BldA) [Mass fraction] 94 % Tondra Mapus Other [facility] Other 06-09-2023 08:45-0500 Systolic blood pressure 148 mm[Hg] Tondra Mapus Other [facility] 01-04-2023 08:45-0400 Body height Tondra Mapus Other [facility] Other 01-04-2023 08:45-0400 Body mass index (BMI) [Ratio] 51.37 kg/m2 Tondra Mapus Other [facility] Other 01-04-2023 08:45-0400 Body weight 171.82 kg Tondra Mapus Other [facility] Other 01-04-2023 08:45-0400 Diastolic blood pressure 85 mm[Hg] Tondra Mapus Other [facility] Other 01-04-2023 08:45-0400 Respiratory rate 18 /min Tondra Mapus Other [facility] Other 01-04-2023 08:45-0400 SaO2% (BldA) [Mass fraction] 98 % Tondra Mapus Other [facility] Other 01-04-2023 08:45-0400 Systolic blood pressure 150 mm[Hg] Tondra Mapus Other [facility] Other 06-25-2022 09:45-0500 Body height Tondra Mapus Other [facility] Other 06-25-2022 09:45-0500 Body mass index (BMI) [Ratio] 51.14 kg/m2 Tondra Mapus Other [facility] Other 06-25-2022 09:45-0500 Body weight 171.05 kg Tondra Mapus Other [facility] Other 06-25-2022 09:45-0500 Diastolic blood pressure 80 mm[Hg] Tondra Mapus Other [facility] Other 06-25-2022 09:45-0500 Respiratory rate 18 /min Tondra Mapus Other [facility] Other 06-25-2022 09:45-0500 SaO2% (BldA) [Mass fraction] 95 % Tondra Mapus Other [facility] Other 06-25-2022 09:45-0500 Systolic blood pressure 139 mm[Hg] Tondra Mapus Other [facility] Other 01-06-2022 09:45-0400 Body height Tondra Mapus Other [facility] Other 01-06-2022 09:45-0400 Body mass index (BMI) [Ratio] 48.28 kg/m2 Tondra Mapus Other [facility] Other 01-06-2022 09:45-0400 Body weight 161.48 kg Tondra Mapus Other [facility] Other 01-06-2022 09:45-0400 Diastolic blood pressure 71 mm[Hg] Tondra Mapus Other [facility] Other 01-06-2022 09:45-0400 Respiratory rate 20 /min Tondra Mapus Other [facility] Other 01-06-2022 09:45-0400 SaO2% (BldA) [Mass fraction] 95 % Tondra Mapus Other [facility] Other 01-06-2022 09:45-0400 Systolic blood pressure 124 mm[Hg] Tondra Mapus Other [facility] Other Encounters Encounter Date Encounter Type Care Provider Facility Start: 08-02-2023 End: 08-02-2023 ambulatory MIRLANDE PECK Not Available Start: 07-07-2023 End: 07-07-2023 ambulatory BLOSSOM CODY Not Available Start: 06-16-2023 [employer] Blossom cabrales SENIOR LINUX ADMINISTRATOR Work Phone: [facility] Start: 06-16-2023 [employer] Blossom cabrales SENIOR LINUX ADMINISTRATOR Work Phone: [facility] Start: 06-16-2023 End: 06-16-2023 ambulatory BLOSSOM CODY Not Available Start: 06-16-2023 End: 06-16-2023 Office outpatient visit 25 minutes Blossom Cody SENIOR LINUX ADMINISTRATOR Work Phone: [facility] Comment on above: Diabetic polyneuropa thy associated with type 2 diabetes mellitus (CMS/HCC) (Primary Dx); Diabetic neuropathic arthropathy (CMS/HCC); 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); 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, sequela (CMS/HCC); Ulcer of foot due to type 2 diabetes mellitus (CMS/HCC); Vitamin B 12 deficiency; Hx of diabetic neuropathy; 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CMS/HCC); Hypertriglyceridemia (CMS/HCC); 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, 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); Essential hypertension; Nasal congestion; Type 2 diabetes mellitus with diabetic autonomic neuropathy, with long-term current use of insulin (CMS/HCC); alf (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 (Z79.4); Acquired absence of other toe(s), unspecified side (Z89.429); Type 2 diabetes mellitus with diabetic neuropathy, with long-term current use of insulin ([facility]/HCC); Body mass index [BMI] 50.0-59.9, adult (Z68.43); Type 2 diabetes mellitus with foot ulcer, with long-term current use of insulin (CMS/[facility]); 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.49); Status post amputation of lesser toe, unspecified laterality (CMS/HCC); Arthritis of left foot; Acquired hallux valgus of left foot; Type 2 diabetes mellitus with hyperglycemia, with long-term current use of insulin (CMS/[facility]); Morbid obesity (CMS/HCC) Start: 06-15-2023 End: 06-15-2023 ambulatory Link Ortega Other [facility] Other Start: 06-15-2023 Telephone encounter Link Ortega [facility] Start: 06-09-2023 (DM) Diabetes Link Ortega [facility] Start: 06-09-2023 End: 06-10-2023 ambulatory MD Natalie Hernandez Work Phone: [facility] Other Start: 06-09-2023 End: 06-09-2023 Discharged Recurring MD Natalie Hernandez Work Phone: [facility] Work Phone: Start: 06-09-2023 End: 06-09-2023 Patient encounter procedure MD Natalie Hernandez Work Phone: [facility] Start: 03-24-2023 End: 03-24-2023 ambulatory BLOSSOM CODY Not Available Start: 01-04-2023 (DM) Diabetes Tondra Dayannaus [facility] Start: 01-04-2023 End: 01-04-2023 ambulatory Tondra Mapus Other [facility] Other Start: 12-21-2022 End: 12-21-2022 ambulatory Tondra Mapus Other [facility] Other Start: 12-21-2022 Telephone encounter Tondra Mapus [facility] Start: 10-12-2022 ambulatory NATANAEL FELDMAN Faci lity:H1 Start: 10-06-2022 End: 10-07-2022 ambulatory NATANAEL FELDMAN Facility:[facility]1 Start: 10-01-2022 Encounter for preprocedural cardiovascular examination [facility]ATANAEL Marks [facility] Start: 10-01-2022 Encounter for preprocedural laboratory examination NATANAEL Marks [facility] Start: 09-30-2022 End: 10-01-2022 ambulatory NATANAEL FELDMAN Facility:[facility]1 Start: 09-30-2022 End: 10-01-2022 Encounter for preprocedural laboratory examination NATANAEL FELDMAN Facility:[facility] Start: 09-15-2022 End: 09-16-2022 ambulatory NATANAEL FELDMAN Facility:[facility] Start: 09-10-2022 End: 09-10-2022 ambulatory Tondra Mapus Other [facility] Other Start: 09-10-2022 Telephone encounter Tondra Mapus [facility] Start: 08-24-2022 End: 08-25-2022 ambulatory PETER D HIGHLANDER Facility:[facility]1 Start: 08-10-2022 End: 08-10-2022 ambulatory Tondra Mapus Other [facility] Other Start: 08-10-2022 Telephone encounter Tondra Mapus [facility] Start: 08-03-2022 End: 08-04-[address] NATALIE HERNANDEZ Facility:[facility] Start: 07-13-2022 End: 07-14-2022 ambulatory MARTELL NAVAS Facility:[facility] Start: 06-30-2022 End: 07-01-2022 ambulatory PETER D HIGHLANDER Facility:[facility] Start: 06-25-2022 (DM) Diabetes Tondra Dayannaus [facility] Start: 06-25-2022 End: 06-25-2022 ambulatory Tondra Mapus Other Noom Other Start: 06-16-2022 End: 06-17-2022 ambulatory PETER [...] 02-18-2022 End: 02-18-2022 ambulatory Tondra Mapus Other Noom Other Start: 02-18-2022 Telephone encounter Tondra Shannon [facility] Start: 02-09-2022 End: 02-10-2022 ambulatory NATANAEL D HIGHLANDER Facility:[facility]1 Start: 01-26-2022 End: 01-27-2022 ambulatory PETER D HIGHLANDER Facility:[facility]1 Start: 01-13-2022 End: 01-14-2022 ambulatory PETER D [facility] Facility:[facility]1 Start: 01-06-2022 (DM) Diabetes Tondra Shannon [facility] Start: 01-06-2022 End: 01-06-2022 ambulatory Tondra Mapus Other Noom Other Start: 12-29-2021 End: 12-30-2021 ambulatory PETER [...] HIGHLANDER Facility:[facility]1 Start: 11-14-2021 End: 11-15-2021 ambulatory NATANAEL FELDMAN Facility:[facility]1 Start: 11-11-2021 End: 11-12-2021 ambulatory NATANAEL FELDMAN Facility:[facility]1 Start: 11-06-2021 End: 11-07-2021 ambulatory NATANAEL FELDMAN Facility:[facility]1 Start: 11-03-2021 End: 11-04-2021 ambulatory NATANAEL FELDMAN Facility:[facility]1 Start: 10-30-2021 End: 10-31-2021 ambulatory NATANAEL FELDMAN Facility:[facility]1 Start: 10-27-2021 End: 10-28-2021 ambulatory NATANAEL FELDMAN Facility:[facility]1 Start: 10-23-2021 End: 10-24-2021 ambulatory NATANAEL FELDMAN Facility:[facility]1 Start: 10-21-2021 End: 10-22-2021 ambulatory NATANAEL FELDMAN Facility:[facility]1 Start: 10-20-2021 End: 10-21-2021 ambulatory NATANAEL FELDMAN Facility:[facility]1 Procedures Date Procedure Procedure Detail Performing Clinician Amputation of toe Tondra Map us Other History of amputatio n of lesser toe Status post amputation of lesser toe, unspecified laterality ([facility]) Blossom Cody NP Work Phone: Plan of Treatment Date Care Activity Detail Author Start: 03-24-2024 Urine screening for protein Diabetes: Urine Protein Screening [facility] Start: 09-15-2023 End: 09-15-2023 Patient encounter procedure 09/15/2023 9:30 AM EDT Office Visit [facility] [address] [facility] [place] [id number] Blossom Cody NP [address] [facility] [place] [address] [facility] Start: 09-07-2023 Hemoglobin A1c measurement Diabetes: Hemoglobin A1C [facility] Start: 07-26-2023 Glaucoma screening Diabetes: R etinopathy Screening [facility] Start: 07-07-2023 End: 07-07-2023 Patient encounter procedure 07/07/2023 9:00 AM EST Office Visit [facility] [address] [place] [address] [facility] Start: 06-16-2023 End: 06-16-2023 Patient encounter procedure 06/16/2023 11:00 AM EST Office Visit [facility] [address] [place] [address] Blossom Cody NP [address] [place], [place] [id number] Diabetic polyneuropathy associated with type 2 diabetes mellitus (CMS/HCC) (Primary Dx); Diabetic neuropathic arthropathy (CMS/HCC); 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); 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, sequela (CMS/HCC); Ulcer of foot due to type 2 diabetes mellitus (CMS/HCC); Poorly controlled diabetes mellitus (CMS/HCC); Type 2 diabetes mellitus with hyperglycemia, with long-term current use of insulin (CMS/HCC); Vitamin B 12 deficiency; Hx of diabetic neuropathy; 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CMS/HCC); Morbid obesity (CMS/HCC); Hypertriglyceridemia (CMS/HCC) [facility] Comment on above: Diabetic polyneuropa thy associated with type 2 diabetes mellitus (CMS/HCC) (Primary Dx); Diabetic neuropathic arthropathy (CMS/HCC); 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); 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, sequela (CMS/HCC); Ulcer of foot due to type 2 diabetes mellitus (CMS/HCC); Poorly controlled diabetes mellitus (CMS/HCC); Type 2 diabetes mellitus with hyperglycemia, with long-term current use of insulin (CMS/HCC); Vitamin B 12 deficiency; Hx of diabetic neuropathy; 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CMS/HCC); Morbid obesity (CMS/HCC); Hypertriglyceridemia (CMS/HCC) Immunizations Immunization Date Immunization Notes Care Provider Fa [facility] 03-24-2023 influenza, injectabl e, quadrivalent, preservative free Blossom Cody NP Work Phone: [facility] 08-26-2021 tetanus and diphther ia toxoids, adsorbed, preservative free, for adult use (5 Lf of tetanus toxoid and 2 Lf of diphtheria toxoid) Blossom Cody SENIOR LINUX ADMINISTRATOR Work Phone: [facility] 03-28-2021 influenza, injectabl e, quadrivalent, preservative free Blossom Cody SENIOR LINUX ADMINISTRATOR Work Phone: [facility] 02-13-2020 Influenza, injectabl e, Madin Nel Canine Kidney, preservative free, quadrivalent Blossom Cody SENIOR LINUX ADMINISTRATOR Work Phone: [facility] 02-22-2019 influenza, injectabl e, quadrivalent, preservative free Blossom Cody SENIOR LINUX ADMINISTRATOR Work Phone: [facility] 02-07-2018 influenza, injectabl e, quadrivalent, preservative free Blossom Cody SENIOR LINUX ADMINISTRATOR Work Phone: [facility] Payers Date Payer Category Payer Unknown [employer] [id number] 2022-Present [address] [address] [place] [address] [id number] 2020 Self-pay [id number] 1979 Unknown [id number] 2.16.840.1.234299.3.579.2.59 3 1979 Unknown [id number] 2.16.840.1.985378.3.579.2.59 3 1979 Unknown [id number] 2.16.840.1.767611.3.579.2.59 3 1979 Unknown [id number] 2.16.840.1.744410.3.579.2.59 3 1979 Unknown [id number] 2.16.840.1.224740.3.579.2.59 3 1979 Unknown [id number] 2.16.840.1.013301.3.579.2.59 3 1979 Unknown [id number] 2.16.840.1.434070.3.579.2.59 3 1979 Unknown [id number] 2.16.840.1.278035.3.579.2.59 3 1979 Unknown [id number] 2.16.840.1.762564.3.579.2.59 3 1979 Unknown [id number] 2.16.840.1.093503.3.579.2.59 3 1979 Unknown [id number] 2.16.840.1.556108.3.579.2.59 3 1979 Unknown [id number] 2.16.840.1.469833.3.579.2.59 3 1979 Unknown [id number] 2.16.840.1.195782.3.579.2.59 3 1979 Unknown [id number] 2.16.840.1.508592.3.579.2.59 3 1979 Unknown [id number] 2.16.840.1.915524.3.579.2.59 3 1979 Unknown [id number] 2.16.840.1.254559.3.579.2.59 3 1979 Unknown [id number] 2.16.840.1.095139.3.579.2.59 3 1979 Unknown [id number] 2.16.840.1.839605.3.579.2.59 3 1979 Unknown [id number] 2.16.840.1.668825.3.579.2.59 3 1979 Unknown [id number] 2.16.840.1.639517.3.579.2.59 3 1979 Unknown [id number] 2.16.840.1.755191.3.579.2.59 3 1979 Unknown [id number] 2.16.840.1.196911.3.579.2.59 3 1979 Unknown [id number] 2.16.840.1.148185.3.579.2.59 3 1979 Unknown [id number] 2.16.840.1.025874.3.579.2.59 3 1979 Unknown [id number] 2.16.840.1.534496.3.579.2.59 3 1979 Unknown [id number] 2.16.840.1.019765.3.579.2.59 3 1979 Unknown [id number] 2.16.840.1.527535.3.579.2.59 3 1979 Unknown [id number] 2.16.840.1.796770.3.579.2.59 3 1979 Unknown [id number] 2.16.840.1.743910.3.579.2.59 3 1979 Unknown [id number] 2.16.840.1.767065.3.579.2.59 3 1979 Unknown [id number] 2.16.840.1.564524.3.579.2.59 3 1979 Unknown [id number] 2.16.840.1.414254.3.579.2.59 3 1979 Unknown [id number] 2.16.840.1.063892.3.579.2.59 3 1979 Unknown [id number] 2.16.840.1.909976.3.579.2.59 3 1979 Unknown [id number] 2.16.840.1.277696.3.579.2.59 3 1979 Unknown [id number] 2.16.840.1.872762.3.579.2.59 3 1979 Unknown [id number] 2.16.840.1.153799.3.579.2.59 3 1979 Unknown [id number] 2.16.840.1.032647.3.579.2.59 3 1979 Unknown [id number] 2.16.840.1.030270.3.579.2.59 3 1979 Unknown [id number] 2.16.840.1.335084.3.579.2.59 3 1979 Unknown [id number] 2.16.840.1.287493.3.579.2.59 3 1979 Unknown [id number] 2.16.840.1.374257.3.579.2.12 59 1979 Unknown [id number] 2.16.840.1.290062.3.579.2.12 59 1979 Unknown [id number] 2.16.840.1.390949.3.579.2.12 59 1979 Unknown [id number] 2.16.840.1.419434.3.579.2.12 59 1959 Unknown [id number] 2.16.840.1.366157.19 1959 Unknown [id number] 2.16.840.1.438225.19 Unknown [id number] 2.16.840.1.226178.3.579.2.53 1 Social History Date Type Detail Facility Unknown if ever smoked [facility] Other Start: 03-23-2023 End: 06-17-2023 Sex Assigned At [facility] Start: 12-21-2022 Tobacco smoking status MEIS Never smoked tobacco [facility] Start: 12-21-2022 Tobacco use and exposure Smokeless tobacco non-user [facility] Start: 05-18-2023 End: 06-17-2023 Alcohol intake Current drinker of alcohol (finding) [facility] Start: 03-23-2023 End: 05-18-2023 Alcohol intake [facility] Within the last year , have you been afraid of your partner or ex-partner? Patient refused [facility] Are you now , , , , never or living with a partner? Refused [facility] (I/We) worried whether (my/our) food would run out before (I/we) got money to buy more. DK or Refused [facility] Start: 1980 Sex Assigned At Not on file [facility] Start: 1980 Sex Assigned At Male [facility] Medical Equipment Procedure Code Equipment Code Equipment Origin al Text Equipment Identifier Dates Start: 06-09-2023 Insulin Syringe-Needle U-100 (Bd Insulin Syringe Ultra-Fine) 1 mL 31 gauge x 5/16 syringe Start: 06-23-2023 Clinical Notes 05-10-2020 to 06-16-2023 Blossom Cody, SENIOR LINUX ADMINISTRATOR - 06/16/2023 11:00 AM EST Note Date & Type Note Facility 06-16-2023 History of Presen t illness Narrative Images from the original note were not included. Subjective Patient ID: Trev Ontiveros is a 42 y.o. male who presents for Diabetes (Pt saw endocrinology last week and has his hgbA1c. HgbA1c was 8.2 and his results and notes are under media from that appt on 06-09-22). Diabetes Pertinent negatives for hypoglycemia include no dizziness or headaches. Associated symptoms include fatigue. Pertinent negatives for diabetes include no chest pain. HPI: As above. Fingerstick fasting sugars ranging from 120-170's. Sees Joshua in [place], next appt September 13 with them. Taking insulin, Metformin and Steglatro. Had been on Ozempic, but stopped it r/t cost. Also tried to get Victoza, but it was too expensive now, but plans to get when meets deductable. They did foot exam last week. Overall doing ok, but issue with left 2nd smallest toe. It got infected before candy. Had blood blister and he touched and it popped. Toe got red, swollen and had oral ATBS', but it did not get better, so they cut it off 05/17/23-Dr Feldman. Took stiches out last week, has appt next for recheck. Was in a cast for 3 weeks, now has surgical shoe on. Has been off work, is supposed to go back on the , needs release from Dr Feldman. No exercise since foot issue. Has eye exam schedule end of July goes yearly- Dr Heck and sees Dentist every 6 months-has appt in September. Feels like some nasal congestion since yesterday, took cold and sinus tab this AM. No nasal drng, slight cough. Rare salt use ie on potatoes or popcorn, some salty foods ie potatoe chips, peanuts, pepporni, cheese, turkey or ham. Rare sweets Review of Systems Constitutional: Positive for fatigue. Negative for appetite change, chills and fever. Some fatigue. Sitting around more. Trying to sugars carb HENT: Positive for congestion. Negative for ear pain and sore throat. See HPI Respiratory: Positive for cough. Negative for chest tightness and shortness of breath. Pt states he is not smoking, but smelled like smoke Cardiovascular: Negative for chest pain. Gastrointestinal: Negative for abdominal pain and blood in stool. No change in bowels, no GERD Genitourinary: Negative for difficulty urinating and dysuria. Musculoskeletal: No joint pain, no foot r/t neuropathy Skin: Issue with left toe-see HPI Neurological: Negative for dizziness and headaches. Psychiatric/Behavioral: Sleep is ok, mood is ok, frustrated with health, but things are looking up with foot Objective Physical Exam Vitals reviewed. Constitutional: General: He is not in acute distress. HENT: Ears: Comments: Bilateral cerumen-moderate, pt declined removal, he will use shower water and bend over Nose: No rhinorrhea. Comments: SL edema and pink, no sinus pain Mouth/Throat: Mouth: Mucous membranes are moist. Pharynx: Oropharynx is clear. No posterior oropharyngeal erythema. Eyes: Extraocular Movements: Extraocular movements intact. Comments: Glaase on Cardiovascular: Rate and Rhythm: Normal rate and regular rhythm. Comments: No lower leg edema Pulmonary: Effort: Pulmonary effort is normal. Breath sounds: Normal breath sounds. Comments: No cough Abdominal: General: Bowel sounds are normal. Palpations: Abdomen is soft. Tenderness: There is no abdominal tenderness. Musculoskeletal: Comments: Surgical shoe on left. Steady gait, but sl off with surgical shoe Feet: Comments: Pt declined foot exam today, states Endo did one last week and he sees Dr Feldman Skin: General: Skin is warm and dry. Neurological: Mental Status: He is alert and oriented to person, place, and time. Psychiatric: Comments: Calm and cooperative, well groomed : 03/04/2022 12:00 PM 05/15/2022 12:00 PM 09/18/2022 12:00 PM 12/21/2022 9:03 AM 03/24/2023 8:56 AM 06/16/2023 11:02 AM 06/16/2023 11:33 AM Vitals BMI 48.68 kg/m2 51.02 kg/m2 52.23 kg/m2 52.18 kg/m2 51.93 kg/m2 52.12 kg/m2 BSA (m2) 2.85 m2 2.91 m2 2.95 m2 2.95 m2 2.94 m2 2.95 m2 Systolic 138 150 150 128 162 154 Diastolic 68 88 80 74 82 84 Heart Rate 72 84 92 Height (in) 5' 11.5 5' 11.5 5' 11.5 Weight (lb) 354 371 379.8 379.4 377.6 379 Visit Report Report Report Report Report Assessment/Plan Diagnoses and all orders for this visit: Diabetic polyneuropathy associated with type 2 diabetes mellitus ([facility]) Comments: Aislinn Lewis, last HgbA1c 8.11 May 2023 (prior 8.9 end of December). Pt asked me why we can't just take care of his Diabetes, so he doesn't have to go to [place]. I told him because his sugars are not well controlled even with their help. They are still working with medication adjustment. He has had issues with feet, toes amputation, I do not feel he is well enough controlled at this time, concerns with complications from poorly controlled DM. If he is able to get under good control ie 6.5-7 for HgbA1c we could consider taking over his DM care again. 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 Now has left foot toe amputated. Per pt toe is healing Ulcer of foot due to type 2 diabetes mellitus ([facility]/HCC): Hx of Poorly controlled diabetes mellitus ([facility]/HCC): Last HgbA1c 8.2 Type 2 diabetes mellitus with hyperglycemia, with long-term current use of insulin ([facility]): As above Vitamin B 12 deficiency Comments: Last WNL at 351 Hx of diabetic neuropathy: Hx of 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CMS/HCC): Hx of Morbid obesity ([facility]) Comments: Enc healthy diet, watch sweets carbs. 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 Will increase Lisinopril from 20mg to 30mg. Enc pt to monitor BP at home or local store. Pt prefers to come in here in 2-3 weeks for recheck (Does not have BP cuff at home) Enc pt to avoid adding salt to diet, avoid chips, salty snacks. PVU. Handouts given on Lifestyle modifications, DASH diet, Foods with Na in them list with review Nasal congestion: Discussed trying Plain Claritin 10mg daily. His cold tablet may have had Sudafed in it-so prefer not to take that Type 2 diabetes mellitus with diabetic autonomic neuropathy, with long-term current use of insulin (CMS/[facility]): Hx of alf (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 (Z79.4): Hx of Acquired absence of other toe(s), unspecified side (Z89.429): Hx of Type 2 diabetes mellitus with diabetic neuropathy, with long-term current use of insulin ([facility]); Hx of Body mass index [BMI] 50.0-59.9, adult (Z68.43): See above. Discussed seeing weight loss provider or seeing someone about gastric bypass-pt declined both. He is not interested in this Type 2 diabetes mellitus with foot ulcer, with long-term current use of insulin ([facility]): Hx of (no ulcer at this time, bu lit recent amputation of 4th toe 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.49): Hx of Status post amputation of lesser toe, unspecified laterality ([facility]): 4th toe-has appt for follow up with Dr Feldman Arthritis of left foot: Hx of Acquired hallux valgus of left foot: Hx of Type 2 Diabetes mellitus with hyperglycemia with correction current use of insulin (CMS/[facility]): Hx of Morbid obesity: See above documented in this encounter [facility] 06-15-2023 Evaluation note Encounter Date Diagnosis Assessment Notes Jun, Type 2 diabetes mellitus with hyperglycemia (ICD-10 - E11.65) [facility] 01-31-2024 Evaluation note* Encounter Date Diagnosis Assessment Notes Treatment Notes Treatment Clinical Notes May, Type 2 diabetes mellitus with hyperglycemia (ICD-10 - E11.65) 1. Uncontrolled, a Type 2 diabetes with A1c of 8.2% 2. Blood glucose levels above target fasting am. Recommend increasing glarding from 44 to 46 units bid. Ozempic cost prohibitive. Discussed with pt starting victoza, pt agreeable. Reviewed dosing with demonstration pen: victoza 0.6mg sq daily x1 week, then 1.2mg once daily x1 week, then 1.8mg once daily. Reviewed with pt how to titrate basal/bolus insulin according to fasting am/ac supper/ meal to meal glucose pattern. Reviewed with pt importance of glucose control to promote wound healing. Pt verebalizes understandng. Note: Cost is prohibitive for pt to take jardiance, ozempic,mounjaro. Steglatro is tier 2 on formulary. Reviewed [...] hyperglycemia, or diabetes medication issues. 6. Prescriptions: [facility] Valenzuela- syringes, pen needles, victoza sent. 06/09/23 7. Prescriptions will not be filled unless you are compliant with follow up appointments or have a follow up appointment scheduled as ordered by your provider. Refills should be requested at the time of your visit. May, Dietary counseling and surveillance (ICD-10 - Z71.3) see above May, Hyperlipidemia (ICD-10 - E78.5) 04/01 ldl 79 at target/trig 290- on statin May, HTN (hypertension) (ICD-10 - I10) on julissa- above target; f/u with pcp for further recommendation May, alf current use of insulin (ICD-10 - Z79.4) May, Vitamin B 12 deficiency (ICD-10 - E53.8) 04/01 vit b 12 351 at target May, BMI 50.0-59.9, adult (ICD-10 - Z68.43) see above May, Amputation toe (ICD-10 - Z89.429) Keep f/u with Dr. Feldman May, Cracked skin on feet (ICD-10 - R23.4) keep f/u with Dr. Feldman [facility] 08-28-2023 Evaluation note* Encounter Date Diagnosis Assessment Notes [...] for Lispro/ozempic 0.5mg sent to [facility] in [place] 01/04/23 7. Prescriptions will not be filled [...] HTN (hypertension) (ICD-10 - I10) on julissa 28 Aug, 2023 intermediate manager current use of insulin (ICD-10 - Z79.4) Dec, Vitamin B 12 deficiency (ICD-10 - E53.8) 12/30 vit b 12 335 at target Dec, BMI 50.0-59.9, adult (ICD-10 - Z68.43) see above Dec, Wound of foot (ICD-10 - S91.309A) pt has apt scheduled with Dr. Francia keenan [facility] Other 05-30-2023 NotePROCEDURE: XR FOOT LT MIN [...] Electronically authenticated by: FRANCO FRANCES Date: 2022-10-06 14:13[facility]05-04-2023 Evaluation note* Encounter Date Diagnosis Assessment Notes Treatment Notes Treatment Clinical Notes September, Type 2 diabetes mellitus with hyperglycemia (ICD-10 - E11.65) [facility] 04-17-2023 NotePROCEDURE: XR FOOT LT MIN [...] Electronically authenticated by: FERN SOSA Date: 2022-08-24 12:46[facility]02-16-2023 Evaluation note* Encounter Date Diagnosis Assessment Notes Treatment Notes Treatment Clinical Notes Jun, Type 2 diabetes mellitus with hyperglycemia (ICD-10 - E11.65) 1. Uncontrolled, a Type 2 diabetes with A1c of 8.2% 2. Blood glucose levels above target. Discussed with pt restarting ozempic, he had s/e from higher dose ozempic 1mg and concern with cost works at [employer]. Pt agreeable to starting sample ozempic 0.5mg [...] issues. 6. Prescriptions: Syringes/ozempic/st eglatro sent to [facility] in [place] 06/25/22 7. Prescriptions will not be filled [...] (hypertension) (ICD-10 - I10) on julissa Jun, alf current use of insulin (ICD-10 - Z79.4) Jun, Vitamin B 12 deficiency (ICD-10 - E53.8) 12/28 vit b 12 423 at target Jun, BMI 50.0-59.9, adult (ICD-10 - Z68.43) [facility] 02-07-2023 NotePROCEDURE: XR ANKLE LT MIN [...] Electronically authenticated by: GISSEL RUBIO Date: 2022-06-16 16:33[facility]02-07-2023 NotePROCEDURE: XR ANKLE LT MIN 3 [...] Electronically authenticated by: GISSEL RUBIO Date: 2022-06-16 16:33[facility]08-30-2022 Evaluation note* Encounter Date Diagnosis Assessment [...] (hypertension) (ICD-10 - I10) on julissa Dec, intermediate manager current use of insulin (ICD-10 - Z79.4) Dec, Vitamin B 12 deficiency (ICD-10 - E53.8) 12/28 vit b 12 423 at target Dec, BMI 45.0-49.9, adult (ICD-10 - Z68.42) 14 pound weight loss from last visit, continue with weight loss efforts [facility] 01-01-2021 History general Narrative - Reported* Type Description Date Medical History type II diabetes Medical History hypertension Medical History hyperlipidemia Medical History covid 05/2020 Surgical History Ulcer on left great toe X2 Surgical History Partial amputation Right great toe 01/2021 Surgical History All toes right foot amputated Hospitalization History Toe infection 2017 [facility] Other 01-01-2021 History general Narrative - Reported* Type Description Date Medical History type II diabetes Medical History hypertension Medical History hyperlipidemia Medical History covid 05/2020 Surgical History Ulcer on left great toe X2 Surgical History Partial amputation Right great toe 01/2021 Surgical History All toes right foot amputated Surgical History Left great toe corre ctive surgery with Dr. 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, sequela (CMS/HCC) Ulcer of foot due to type 2 diabetes mellitus (CMS/HCC) Vitamin B 12 deficiency Other B-complex deficiencies Hx of diabetic neuropathy 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CMS/HCC) Lipoprotein deficiencies Hypertriglyceridemia (CMS/HCC) Pure hyperglyceridemia 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, 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) Essential hypertension Unspecified essential hypertension Nasal congestion Other diseases of nasal cavity and sinuses Type 2 diabetes mellitus with diabetic autonomic neuropathy, with long-term current use of insulin (CMS/HCC) alf (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 (Z79.4) Acquired absence of other toe(s), unspecified side (Z89.429) Type 2 diabetes mellitus with diabetic neuropathy, with long-term current use of insulin (CMS/HCC) Body mass index [BMI] 50.0-59.9, adult (Z68.43) Type 2 diabetes mellitus with foot ulcer, with long-term current use of insulin ([facility]) 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.49) Status post amputation of lesser toe, unspecified laterality (CMS/HCC) Arthritis of left foot Acquired hallux valgus of left foot Type 2 diabetes mellitus with hyperglycemia, with long-term current use of insulin ([facility]/HCC) Morbid obesity ([facility]) Morbid obesity documented in this encounter [facility] noteNo assessment information availableDay[facility] Work Phone: Summary Purpose Family History No Family History Records Found Relationship Condition Age at Onset Recorded Date/T juan brother Diabetes mellitus Unknown father Malignant neoplasm Unknown Not Specified Diabetes mellitus Unknown Advance Directives No Advanced Directives Records Found Advance Directive Response Recorded Date/ Time Advance Directives No March 11, 2020 12:01pm Chief Complaint and Reason for Visit Chief Complaint Dm DM Additional Source Comments (unrecognized sect ion and content) No Status Records FoundNo Status Records FoundNo Status Records FoundNo Status Records Found INFORMATION SOURCE (unrecogn ized section and content) DATE CREATED AUTHOR 08/27/2021 [facility] dical Specialist DATE CREATED AUTHOR AUTHOR'S ORGANIZ ATION 10/17/2022 [facility] DATE CREATED AUTHOR AUTHOR'S ORGANIZ ATION 06/26/2023 [facility] DATE CREATED AUTHOR AUTHOR'S ORGANIZ ATION 08/03/2023 [facility] dical Specialists EPIC REASON FOR VISIT (unrecogniz ed section and content) Reason Comments Diabetes Pt saw endocrinology last week and has his hgbA1c. HgbA1c was 8.2 and his results and notes are under media from that appt on 06-09-22 Care Teams (unrecognized sec tion and content) Delivery Recruiter Relationship Specialty Start Date End Date Natalie Hernandez MD [address] [place] [address] PCP - General Family Medicine 09/15/22 Delivery Recruiter Relationship Specialty Start Date End Date Natalie Hernandez MD [address] [place] [address] PCP - General Family Medicine 09/15/22 Team Status: Active Member Role Status Dates Natalie Hernandez MD Primary Care Provider Active Team Status: Inactive Member Role Status Dates Link Ortega APRN Attending Provider Active Start: June 09, 2023 End: June 09, 2023 Team Status: Inactive Member Role Status Dates Damon Claros MD Attending Provider Active Start: June 09, 2023 End: June 09, 2023 Natalie Hernandez MD Primary Care Provider Active Start: June 09, 2023 End: June 09, 2023 Goals (unrecognized section and content) Goals may be documented in a n alternate section FOR RECORDS PERTAINING TO PATIENTS WHO ARE [...] BE BASED ON THE PRIMARY CLINICAL RECORDS. [employer] [facility]. provides no warranty or guarantee of the accuracy or completeness of information in this document.
== END 2023-08-10 11:41 | disposition home or self-care (01) ==
LOC: WC 11:41
PROVIDERS: PCP Family Medicine; Visit Provider Podiatrist Foot & Ankle Surgery
DX: E11.621 Type 2 diabetes mellitus with foot ulcer (principal); L97.422 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 layer exposed; L97.528 Non-pressure chronic ulcer of other part of left foot with other specified severity
CPT/HCPCS: 11042

== ENCOUNTER 2023-08-31 15:49 | Outpatient (OUT) | payer OTHER, SELFPAY | END 2023-08-31 15:50 | disposition home or self-care (01) | LOC: WC 15:49 | PROVIDERS: PCP Family Medicine; Visit Provider Podiatrist Foot & Ankle Surgery | DX: E11.621 Type 2 diabetes mellitus with foot ulcer (principal); L97.528 Non-pressure chronic ulcer of other part of left foot with other specified severity; L97.422 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 layer exposed | CPT/HCPCS: 11042 ==

== ENCOUNTER 2023-10-08 11:05 | Outpatient (OUT) | payer OTHER, SELFPAY | END 2023-10-08 11:06 | disposition home or self-care (01) | LOC: WC 11:05 | PROVIDERS: PCP Family Medicine; Visit Provider Podiatrist Foot & Ankle Surgery | DX: E11.621 Type 2 diabetes mellitus with foot ulcer (principal); L97.528 Non-pressure chronic ulcer of other part of left foot with other specified severity; L97.422 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 layer exposed ==

== ENCOUNTER 2023-10-25 15:54 | Outpatient (OUT) | payer OTHER, SELFPAY ==
--- OUTSIDE RECORDS SUMMARY | 2023-10-25 16:17 | XMS_ITS | CCD ---
Author Organization [facility] Care Team Providers Care Chainman Name Role Phone Link Ortega Unavailable NATANAEL [...] NATALIE Lozada Primary Care Unavailable NATANAEL FELDMAN Admitting Unavailable HIGHLANDER, NATANAEL Marks Attending Unavailable [...] WONDERLY, DR NATALIE Lozada Primary Care Unavailable TAIWO, NATANAEL Marks Attending Unavailable HIGHLANDER, NATANAEL Marks [...] Care Provider MD Damon Claros Attending Provider [phone] MD Natalie Hernandez [facility] Provider [phone] Natalie Hernandez [facility] Unavailable Damon Claros Attending Unavailable Damon Claros Admitting Unavailable BLOSSOM CODY Attending Unavailable BLOSSOM CODY Attending Unavailable BLOSSOM CODY Attending Unavailable MIRLANDE PECK Attending Unavailable MIRLANDE PECK Attending Unavailable GLO, BLOSSOM Kong Attending Unavailable MIRLANDE PECK Attending Unavailable Medications Current Medications Medication Drug Class(es) Dates Sig (Normalized) Sig (Original) 0.25 MG, 0.5 MG Dose 3 ML semaglutide 0.68 MG/ML Pen Injector [Ozempic] (1 source) Start: 01-04-2023 inject 0.5 mg by subcutaneous injection every week Ozempic (0.25 or 0.5 MG/DOSE) 2 MG/3ML 0.5mg Subcutaneous once weekly for 84 days Dec, Active aspirin 81 mg chewable tablet (13 sources) Platelet Aggregation Inhibitor, Nonsteroidal Anti-inflammatory Drug Start: 10-19-2023 take 81 mg by mouth once daily Aspirin Active 81 MG PO Daily October 19, 2023 12:00am take 1 tablet by mouth in the mo rning aspirin 81 MG EC tablet Take 1 tablet by mouth in the morning. 0 Active take 1 tablet by janna th every twenty-four hours Aspirin 81 MG 1 tablet Orally Once a day Active atorvastatin 40 mg oral tablet (13 sources) HMG-CoA Reductase Inhibitor Start: 10-19-2023 take 40 mg by mouth once daily Atorvastatin Active 40 MG PO Daily October 19, 2023 12:00am Start: 02-08-2023 take 1 tablet by janna th in the morning atorvastatin (Lipitor) 40 MG tablet Indications: Pure hyperglyceridemia (CMS/HCC) Take 1 tablet (40 mg) by mouth in the morning. 90 tablet 3 02/08/2023 Active dapagliflozin 10 mg oral tablet (1 source) Sodium-Glucose Cotransporter 2 Inhibitor Start: 10-19-2023 take 1 tablet by mouth once daily in the morning Dapagliflozin Propanediol (Farxiga) 10 mg tablet Active 10 MG PO Every morning October 19, 2023 12:00am ertugliflozin 15 mg oral tablet (12 sources) [...] 44 Units in the evening. 0 Active Insulin Glargine-Yfgn (5 sources) Start: 10-19-2023 inject 44 [IU] by subcutaneous injection twice daily Insulin Glargine-Yfgn Active 44 UNIT SUBCUT Twice daily October 19, 2023 12:04pm Start: 10-19-2023 End: 10-19-2023 inject 40 [IU] by subcutaneous injection twice daily Insulin Glargine-Yfgn Discontinued 40 UNIT SUBCUT Twice daily October 19, 2023 11:40am October 19, 2023 12:05pm Start: 07-26-2023 End: 10-19-2023 inject 46 [IU] by subcutaneous injection twice daily Insulin Glargine-Yfgn Discontinued 46 UNIT SUBCUT Twice daily 90 90 July 26, 2023 3:32pm October 19, 2023 11:40am Start: 07-26-2023 End: 07-26-2023 inject 46 [IU] by subcutaneous injection twice daily Insulin Glargine-Yfgn Discontinued 46 UNIT SUBCUT Twice daily 90 90 July 26, 2023 9:10am July 26, 2023 3:33pm Start: 07-26-2023 End: 07-26-2023 inject 46 [IU] by subcutaneous injection twice daily Insulin Glargine-Yfgn Discontinued UNIT SUBCUT July 26, 2023 12:00am July 26, 2023 9:15am FreeTextSig: INJECT 46 UNITS SQ bid; Note: Source Status: Increase(titrate up to max 50 units/day); Provider: Shannon Price insulin glargine-yfgn 100 unit/ml solution (2 sources) [...] 100 UNITS PER DAY for 90 Active Insulin Lispro (11 sources) Insulin Analog Start: 10-19-19 24 Insulin Lispro Active 0 SUBCUT .COMPLEX October 19, 2023 12:00am subcutaneously; 1:4 carb ratio ac tid. 1:15 corrective scale ac tid (hs if >200 half dose) as directed; (expect up to 60 units/day) Insulin Lispro 1 00 UNIT/ML 1:4 carb [...] 3 ml liraglutide 6 mg/ml pen injector (3 sources) GLP-1 Receptor Agonist Start: 10-19-2023 Liraglutide (Victoza 3-Connor) 0.6 mg/0.1 mL (18 mg/3 mL) pen injector Active 0 SUBCUT .COMPLEX October 19, 2023 12:00am inject 1.8mg once daily Start: 06-09-2023 inject 1.8 mg by sub cutaneous injection once daily Victoza 18 MG/3ML 1.8mg Subcutaneous daily for 84 days May, Active lisinopril 30 mg oral tablet (15 sources) Angiotensin Converting Enzyme Inhibitor Start: 10-19-2023 take 30 mg by mouth once daily Lisinopril Active 30 MG PO Daily October 19, 2023 12:00am Start: 06-16-2023 End: 06-16-2023 take 1 tablet [...] the morning. 0 06/16/2023 Discontinued (Dose adjustment) metFORMIN hydrochloride 500 mg oral tablet (15 sources) Biguanide Start: 07-22-2023 End: 07-22-2023 take 2 tablets by mouth twice daily Metformin Active 1000 MG PO Twice daily 360 July 22, 2023 2:45pm FreeTextSi tablets Orally Twice a day; Note: Source Status: Taking; Refills: 3; Qty: 360 Tablet; Provider: Shannon Price take 2 tablets by mouth in the m orning metFORMIN (Glucophage) 500 MG tablet Take 2 [...] LT FOOT] Onset: 10-07-2022 Episodic Administrative/social admission (6 sources) Dietary counseling and surveillance; Translations: [Patient encounter status] Onset: 01-06-2022 Resolved: 01-06-2022 Episodic Chronic ulcer [...] Onset: 01-06-2022 Resolved: 06-17-2023 Chronic Essential hypertension (20 sources) Hypertensive disorder; Translations: [Essential (primary) hypertension] [...] sources) Long-term current use of insulin; Translations: [prison (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] 06-17-2023 Episodic Other aftercare (4 sources) 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 Onset: 01-06-2022 Resolved: [...] Chronic Other nutritional; endocrine; and metabolic disorders (4 sources) Body mass index (BMI) 50.0-59.9, adult; Translations: [Body Mass Index 50.0-59.9, adult] Chronic Other nutritional; endocrine; and [...] 06-09-2023 HbA1c (Bld) [Mass fraction] 8.2 % [facility] Other Glucose - FINGER [place] Glucose [Mass/Vol] 170 mg/dL [facility] Other HbA1c (Bld) [Mass fraction]o n 06-09-2023 A1C HEMOGLOBIN [place] [facility] [place] Other A1C HEMOGLOBINon 01-04-2023 HbA1c (Bld) [Mass fraction] 8.9 % [facility] Other Glucose - FINGER [place] Glucose [Mass/Vol] 201 mg/dL [facility] Other HbA1c (Bld) [Mass fraction]o n 01-04-2023 A1C HEMOGLOBIN [employer] Other PROF CHEM 8 (BAS METB)on Anion gap [Moles/Vol] 14.3 mmol/L Normal [facility] Comment on above: Performed By: #### B MP #### [facility] [address] [address] [address] Lauri Todd Calcium [Mass/Vol] 9.4 mg/dL Normal 8.5-10.1 [facility] Comment on above: Performed By: #### B MP #### [facility] [address] [address] [address] Lauri Todd Chloride [Moles/Vol] 101 mmol/L Normal 98-107 [facility] Comment on above: Performed By: #### B MP #### [facility] [address] [address] [address] Lauri Todd CO2 [Moles/Vol] 26.2 mmol/L Normal 21.0-32.[address] [facility] Comment on above: Performed By: #### B MP #### [facility] [address] [address] [address] Lauri Todd Creatinine [Mass/Vol] 0.90 mg/dL Normal 0.70-1.30 [facility] Comment on above: Performed By: #### B MP #### [facility] [address] [address] [address] Lauri Todd EGFR-AF FIJIAN >60 Normal >=[address] [facility] Comment on above: Performed By: #### B MP #### [facility] [address] [address] [address] Lauri Todd EGFR-NON AF FIJIAN >60 Normal >=60 [facility] Comment on above: Performed By: #### B MP #### [facility] [address] [place], [place] [address] Dr. Lauri Todd Glucose [Mass/Vol] 146 mg/dL Critically high 74-106 [facility] Comment on above: Performed By: #### B MP #### [facility] [address] [place], [place] [address] Dr. Lauri Todd Potassium [Moles/Vol] 4.5 mmol/L Normal 3.5-5.1 [facility] Comment on above: Performed By: #### B MP #### [facility] [address] [address] [address] Lauri Todd Sodium [Moles/Vol] 137 mmol/L Normal 136-145 [facility] Comment on above: Performed By: #### B MP #### [facility] [address] [address] [address] Lauri Todd Urea nitrogen [Mass/Vol] 16.0 mg/dL Normal 7.0-18.0 [facility] Comment on above: Performed By: #### B MP #### [facility] [address] [address] [address] Lauri Todd Urea nitrogen/Creatinin e [Mass ratio] 17.8 mg/mg Normal [facility] Comment on above: Performed By: #### B MP #### [facility] [address] [address] [address] Lauri Todd A1C HEMOGLOBINon 06-25-2022 HbA1c (Bld) [Mass fraction] 8.2 % [facility] Other Glucose - [facility]ING[facility] [place] Glucose [Mass/Vol] 180 mg/dL [facility] Other HbA1c (Bld) [Mass fraction]o n 06-25-2022 A1C HEMOGLOBIN [employer] Other XR FOOT LT MIN 3 VIEWSon [...] by: RAFAEL WHITAKER Date: 2022-05-25 11:52 Normal [facility] A1C HEMOGLOBINon 01-06-2022 HbA1c (Bld) [Mass fraction] 7 % [facility] Other Glucose - [facility]ING[facility] [place] Glucose [Mass/Vol] 148 mg/dL [facility] Other HbA1c (Bld) [Mass fraction]o n 01-06-[address] [facility] [employer] Other Basic Metabolic Panelon 04-1 Anion gap [Moles/Vol] 20 mmol/L Normal 12-20 [facility] Comment on above: Result Comment: Wade ctive 05/15/2019 reference range changed. Performed By: #### B MP #### [facility] [address], [place] [id number] Calcium [Mass/Vol] 10.0 mg/dL Normal 8.6-10.2 [facility] Comment on above: Performed By: #### B MP #### [facility] [address], [place] [id number] Chloride [Moles/Vol] 100 mmol/L Normal 98-107 [facility] Comment on above: Performed By: #### B MP #### [facility] [address], [place] [id number] CO2 [Moles/Vol] 22 mmol/L Normal 20-31 [facility] Comment on above: Performed By: #### B MP #### [facility] [address], [place] [id number] Creatinine [Mass/Vol] 0.8 mg/dL Normal 0.7-1.4 [facility] Comment on above: Performed By: #### B MP #### [facility] [address], [place] [id number] eGFRAA 129 mL/min/1.73m2 Normal >60 [facility] Comment on above: Performed By: #### B MP #### [facility] [address], [place] [id number] eGFRNAA 107 mL/min/1.73m2 Normal >60 [facility] Comment on above: Performed By: #### B MP #### [facility] [address], [place] [id number] Glucose [Mass/Vol] 140 mg/dL High 65-99 [facility] Comment on above: Result Comment: For FASTING Glucose --- ADA reference ranges: Normal 65-99 mg/dl Prediabetes 100-125 Diabetes >/= 126 Performed By: #### B MP #### [facility] [address], [place] [id number] Potassium [Moles/Vol] 4.3 mmol/L Normal 3.5-5.5 [facility] Comment on above: Performed By: #### B MP #### [facility] [address], [place] [id number] Sodium [Moles/Vol] 137 mmol/L Normal 135-146 [facility] Comment on above: Performed By: #### B MP #### [facility] [address], [place] [id number] Urea nitrogen [Mass/Vol] 17 mg/dL Normal 7-25 [facility] Comment on above: Performed By: #### B MP #### [facility] [address], [place] [id number] Vital Signs Date Time Vital Sign Value Performing Clinician Facility 10-19-2023 11:31040 Body height 182.88 cm [facility] 10-19-2023 11:[id number] Body mass index (BMI) [Ratio] 51.7 kg/m2 [facility] 10-19-2023 11:31-0400 Body weight 172.87 kg [facility] 10-19-2023 11:31-0400 Diastolic blood pressure 83 mm[Hg] [facility] 10-19-2023 11:31-0400 Heart rate 74 /min [facility] 10-19-2023 11:31-0400 Respiratory rate 18 /min [facility] 10-19-2023 11:31-0400 SaO2% (BldA) [Mass fraction] 97 % [facility] 10-19-2023 11:31-0400 Systolic blood pressure 149 mm[Hg] [facility] 06-16-2023 11:33-0500 Diastolic blood pressure 84 mm[Hg] Blossom Lozoyael [employer]PUT[employer] Work Phone: [facility] 06-16-2023 11:33-0500 Systolic blood pressure 154 mm[Hg] Blossom Lozoyael [employer] Work Phone: [facility] 06-16-2023 11:02-0500 Body mass index (BMI) [Ratio] 52.12 kg/m2 Blossom Lozoyael [employer]PUT[employer] Work Phone: [facility] 06-16-2023 11:02-0500 Body weight 171.91 kg Blossom Glo [employer] Work Phone: [facility] 06-16-2023 11:02-0500 Heart rate 92 /min Blossom Glo [employer]PUT[employer]NT Work Phone: [facility] 06-09-2023 08:45-0500 Body height Tondra Mapus Other [employer] [facility] [employer] Other 06-09-2023 08:45-0500 Body height 182.88 cm MD Natalie Hernandez Work Phone: [facility] 06-09-2023 08:45-0500 Body mass index (BMI) [Ratio] 51.33 kg/m2 Tondra Mapus Other [employer] [facility] [employer] Other 06-09-2023 08:45-0500 Body weight 171.69 kg Tondra Mapus Other [facility] Other 06-09-2023 08:45-0500 Body weight 171.68 kg MD Natalie Hernandez Work Phone: [facility] 06-09-2023 08:45-0500 Diastolic blood pressure 80 mm[Hg] Tondra Mapus Other [facility] 06-09-2023 08:45-0500 Respiratory rate 18 /min Tondra Mapus Other [facility] Other 06-09-2023 08:45-0500 SaO2% (BldA) [Mass fraction] 94 % Tondra Mapus Other [facility] Other 06-09-2023 08:45-0500 Systolic blood pressure 148 mm[Hg] Tondra Mapus Other [facility] 01-04-2023 08:45-0400 Body height Tondra Mapus Other [facility] Other 01-04-2023 08:45-0400 Body mass index (BMI) [Ratio] 51.37 kg/m2 Tondra Mapus Other [facility] Other 01-04-2023 08:45-0400 Body weight 171.82 kg Tondra Mapus Other [facility] Other 01-04-2023 08:45-0400 Diastolic blood pressure 85 mm[Hg] Tondra Mapus Other [facility] Other 01-04-2023 08:45-0400 Respiratory rate 18 /min Tondra Mapus Other [facility] Other 01-04-2023 08:45-0400 SaO2% (BldA) [Mass fraction] 98 % Tondra Mapus Other [facility] Other 01-04-2023 08:45-0400 Systolic blood pressure 150 mm[Hg] Tondra Mapus Other [facility] Other 06-25-2022 09:45-0500 Body height Tondra Mapus Other [facility] Other 06-25-2022 09:45-0500 Body mass index (BMI) [Ratio] 51.14 kg/m2 Tondra Mapus Other [facility] Other 06-25-2022 09:45-0500 Body weight 171.05 kg Tondra Mapus Other [facility] Other 06-25-2022 09:45-0500 Diastolic blood pressure 80 mm[Hg] Tondra Mapus Other [facility] Other 06-25-2022 09:45-0500 Respiratory rate 18 /min Tondra Mapus Other [facility] Other 06-25-2022 09:45-0500 SaO2% (BldA) [Mass fraction] 95 % Tondra Mapus Other [facility] Other 06-25-2022 09:45-0500 Systolic blood pressure 139 mm[Hg] Tondra Mapus Other [facility] Other 01-06-2022 09:45-0400 Body height Tondra Mapus Other [facility] Other 01-06-2022 09:45-0400 Body mass index (BMI) [Ratio] 48.28 kg/m2 Tondra Mapus Other [facility] Other 01-06-2022 09:45-0400 Body weight 161.48 kg Tondra Mapus Other [facility] Other 01-06-2022 09:45-0400 Diastolic blood pressure 71 mm[Hg] Tondra Mapus Other [facility] Other 01-06-2022 09:45-0400 Respiratory rate 20 /min Tondra Mapus Other [facility] Other 01-06-2022 09:45-0400 SaO2% (BldA) [Mass fraction] 95 % Tondra Mapus Other [facility] Other 01-06-2022 09:45-0400 Systolic blood pressure 124 mm[Hg] Tondra Mapus Other [facility] Other Encounters Encounter Date Encounter Type Care Provider Facility Start: 10-19-2023 End: 10-19-[address] [facility] Work Phone: Start: 10-19-2023 End: 10-19-2023 Patient encounter procedure [facility] Work Phone: Start: 10-12-2023 End: 10-12-2023 ambulatory MIRLANDE PECK Not Available Start: 09-15-2023 End: 09-15-2023 ambulatory BLOSSOM CODY Not Available Start: 09-06-2023 End: 09-06-2023 ambulatory MIRLANDE PECK Not Available Start: 08-02-2023 End: 08-02-2023 ambulatory MIRLANDE S LIV Not Available Start: 07-07-2023 End: 07-07-2023 ambulatory BLOSSOM CODY Not Available Start: 06-16-2023 Bamboo flowsheet Blossom cabrales [employer] Work Phone: [facility] Start: 06-16-2023 Bamboo flowsheet Blossom cabrales [employer] Work Phone: [facility] Start: 06-16-2023 End: 06-16-2023 Office outpatient visit 25 minutes Blossom Cody [employer] Work Phone: [facility] Comment on above: Diabetic polyneuropa thy associated with type 2 diabetes mellitus ([facility]/HCC) (Primary Dx); Diabetic neuropathic arthropathy ([facility]/HCC); Type 2 diabetes mellitus with neurological manifestation ([facility]); 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, sequela ([facility]); Ulcer of foot due to type 2 diabetes mellitus ([facility]); Vitamin B 12 deficiency; Hx of diabetic neuropathy; 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CMS/HCC); Hypertriglyceridemia ([facility]); 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, 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); Essential hypertension; Nasal congestion; Type 2 diabetes mellitus with diabetic autonomic neuropathy, with long-term current use of insulin ([facility]); prison (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 (Z79.4); Acquired absence of other toe(s), unspecified side (Z89.429); Type 2 diabetes mellitus with diabetic neuropathy, with long-term current use of insulin ([facility]); Body mass index [BMI] 50.0-59.9, adult (Z68.43); Type 2 diabetes mellitus with foot ulcer, with long-term current use of insulin ([facility]); 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.49); Status post amputation of lesser toe, unspecified laterality ([facility]); Arthritis of left foot; Acquired hallux valgus of left foot; Type 2 diabetes mellitus with hyperglycemia, with long-term current use of insulin ([facility]); Morbid obesity ([facility]/HCC) Start: 06-16-2023 End: 06-16-2023 ambulatory BLOSSOM A GLO Not Available Start: 06-15-2023 End: 06-15-2023 ambulatory Tondra Mapus Other [facility] Other Start: 06-15-2023 Telephone encounter Tondra Mapus Angel [facility] Start: 06-09-2023 (DM) Diabetes Tondra Mapus [facility] Start: 06-09-2023 End: 06-10-2023 ambulatory MD Natalie Hernandez Work Phone: [facility] Other Start: 06-09-2023 End: 06-09-2023 Discharged Recurring MD [facility] Diggs [facility] Work Phone: Start: 06-09-2023 End: 06-09-2023 Patient encounter procedure MD Natalie Diggs Phone: [facility]- Start: 03-24-2023 End: 03-24-2023 ambulatory BLOSSOM A GLO Not Available Start: 01-04-2023 (DM) Diabetes Tondra Dayannaus [facility] Start: 01-04-2023 End: 01-04-2023 ambulatory Tondra Mapus Other [facility] Other Start: 12-21-2022 End: 12-21-2022 ambulatory Tondra Mapus Other [facility] Other Start: 12-21-2022 Telephone encounter Tondra Mapus Angel mai [facility] Start: 10-12-2022 ambulatory NATANAEL FELDMAN Faci lity:H1 Start: 10-06-2022 End: 10-07-2022 ambulatory NATANAEL FELDMAN Facility:[facility]1 Start: 10-01-2022 Encounter for preprocedural cardiovascular examination [facility] Start: 10-01-2022 Encounter for preprocedural laboratory examination [facility] Start: 09-30-2022 End: 10-01-2022 ambulatory NATANAEL Marks [facility] Facility:H1 Start: 09-30-2022 End: 10-01-2022 Encounter for preprocedural laboratory examination NATANAEL Marks [facility] Facility:H1 Start: 09-15-2022 End: 09-16-2022 ambulatory NATANAEL Marks [facility] Facility:H1 Start: 09-10-2022 End: 09-10-2022 ambulatory Tondra Mapus Other [facility] Other Start: 09-10-2022 Telephone encounter Tondra Mapus [facility] Start: 08-24-2022 End: 08-25-2022 ambulatory NATANAEL Marks [facility] Facility:H1 Start: 08-10-2022 End: 08-10-2022 ambulatory Tondra Mapus Other [facility] Other Start: 08-10-2022 Telephone encounter Tondra Mapus [facility] Start: 08-03-2022 End: 08-04-[address] NATALIE HERNANDEZ Facility:H1 Start: 07-13-2022 End: 07-14-2022 ambulatory MARTELL ELOISE Facility:[facility]1 Start: 06-30-2022 End: 07-01-2022 ambulatory NATANAEL Marks [facility] Facility:H1 Start: 06-25-2022 (DM) Diabetes Tondra Mapus [facility] Start: 06-25-2022 End: 06-25-2022 ambulatory Tondra Mapus Other [facility] Other Start: 06-16-2022 End: 06-17-2022 ambulatory NATANAEL Marks [facility] Facility:H1 Start: 06-08-2022 End: 06-09-2022 ambulatory NATANAEL Marks [facility] Facility:H1 Start: 05-25-2022 End: 05-26-2022 ambulatory NATANAEL Marks [facility] Facility:H1 Start: 05-12-2022 End: 05-13-2022 ambulatory NATANAEL Marks [facility] Facility:H1 Start: 04-30-2022 End: 05-01-2022 ambulatory PETER [...] 02-18-2022 End: 02-18-2022 ambulatory Tondra Mapus Other [facility] Other Start: 02-18-2022 Telephone encounter Tondra Shannon [facility] Start: 02-09-2022 End: 02-10-2022 ambulatory NATANAEL D HIGHLANDER Facility:H1 Start: 01-26-2022 End: 01-27-2022 ambulatory NATANAEL D HIGHLANDER Facility:[facility]1 Start: 01-13-2022 End: 01-14-2022 [facility] Start: 01-06-2022 (DM) Diabetes Tondra Shannon [facility] Start: 01-06-2022 End: 01-06-2022 ambulatory Tondra Mapus Other [facility] Other Start: 12-29-2021 End: 12-30-2021 ambulatory PETER [...] Facility:H1 Start: 10-23-2021 End: 10-24-2021 ambulatory NATANAEL D HIGHLANDER Facility:[facility]1 Start: 10-21-2021 End: 10-22-2021 ambulatory NATANAEL D HIGHLANDER Facility:H1 Start: 10-20-2021 End: 10-21-2021 ambulatory NATANAEL D TAIWO Facility:H1 Procedures Date Procedure Procedure Detail Performing Clinician Amputation of toe Tondra Map us Other History of amputatio n of lesser toe Status post amputation of lesser toe, unspecified laterality ([facility]) Blossom Cody NP Work Phone: Plan of Treatment Date Care Activity Detail Author Start: 03-24-2024 Urine screening for protein Diabetes: Urine Protein Screening [facility] Start: 09-15-2023 End: 09-15-2023 Patient encounter procedure 09/15/2023 9:30 AM EDT Office Visit [facility] [address] [place] [id number] Blossom Cody NP [address], [place] [id number] [facility] Start: 09-07-2023 Hemoglobin A1c measurement Diabetes: Hemoglobin A1C [facility] Start: 07-26-2023 Glaucoma screening Diabetes: Retinopathy Screening [facility] Start: 07-07-2023 End: 07-07-2023 Patient encounter procedure 07/07/2023 9:00 AM EST Office Visit [facility] [address] [place] [address] [facility] Start: 06-16-2023 End: 06-16-2023 Patient encounter procedure 06/16/2023 11:00 AM EST Office Visit [facility] [address] [place] [address] Blossom Cody NP [address] [place] [address] Diabetic polyneuropathy associated with type 2 diabetes [...] disorder (CMS/HCC); Morbid obesity (CMS/HCC); Hypertriglyceridemia (CMS/HCC) [facility] Comment on above: Diabetic polyneuropathy associated with type 2 diabetes [...] disorder (CMS/HCC); Morbid obesity (CMS/HCC); Hypertriglyceridemia (CMS/HCC) Comprehensive metabo lic 2000 panel - Serum or Plasma [facility] Patient Education Diabetes and diet [facility] Work Phone: [facility] Immunizations Immunization Date Immunization Notes Care Provider Huong agurire 03-24-2023 influenza, injectabl e, quadrivalent, preservative free Blossom Glo [employer] Work Phone: [facility] 08-26-2021 tetanus and diphther ia toxoids, adsorbed, preservative free, for adult use (5 Lf of tetanus toxoid and 2 Lf of diphtheria toxoid) Blossom Glo [employer] Work Phone: [facility] 03-28-2021 influenza, injectabl e, quadrivalent, preservative free Blossom Glo [employer] Work Phone: [facility] 02-13-2020 Influenza, injectabl e, Madin Nel Canine Kidney, preservative free, quadrivalent Blossom Glo [employer] Work Phone: [facility] 02-22-2019 influenza, injectabl e, quadrivalent, preservative free Blossom Glo [employer] Work Phone: [facility] 02-07-2018 influenza, injectabl e, quadrivalent, preservative free Blossom Glo [employer] Work Phone: [facility] Payers Date Payer Category Payer Unknown [employer] [id number] 2022-Present [address] [address] [place] [address] [id number] 2020 Self-pay [id number] 1979 Unknown [id number] 2.16.840.1.228262.3.579.2.59 3 1979 Unknown [id number] 2.16.840.1.775947.3.579.2.59 3 1979 Unknown [id number] 2.16.840.1.346361.3.579.2.59 3 1979 Unknown [id number] 2.16.840.1.423553.3.579.2.59 3 1979 Unknown [id number] 2.16.840.1.071191.3.579.2.59 3 1979 Unknown [id number] 2.16.840.1.688798.3.579.2.59 3 1979 Unknown [id number] 2.16.840.1.572773.3.579.2.59 3 1979 Unknown [id number] 2.16.840.1.910565.3.579.2.59 3 1979 Unknown [id number] 2.16.840.1.433101.3.579.2.59 3 1979 Unknown [id number] 2.16.840.1.194674.3.579.2.59 3 1979 Unknown [id number] 2.16.840.1.444332.3.579.2.59 3 1979 Unknown [id number] 2.16.840.1.643928.3.579.2.59 3 1979 Unknown [id number] 2.16.840.1.407324.3.579.2.59 3 1979 Unknown [id number] 2.16.840.1.108921.3.579.2.59 3 1979 Unknown [id number] 2.16.840.1.788557.3.579.2.59 3 1979 Unknown [id number] 2.16.840.1.927420.3.579.2.59 3 1979 Unknown [id number] 2.16.840.1.725483.3.579.2.59 3 1979 Unknown [id number] 2.16.840.1.694087.3.579.2.59 3 1979 Unknown [id number] 2.16.840.1.400149.3.579.2.59 3 1979 Unknown [id number] 2.16.840.1.614613.3.579.2.59 3 1979 Unknown [id number] 2.16.840.1.571514.3.579.2.59 3 1979 Unknown [id number] 2.16.840.1.689373.3.579.2.59 3 1979 Unknown [id number] 2.16.840.1.052922.3.579.2.59 3 1979 Unknown [id number] 2.16.840.1.626359.3.579.2.59 3 1979 Unknown [id number] 2.16.840.1.670764.3.579.2.59 3 1979 Unknown [id number] 2.16.840.1.469522.3.579.2.59 3 1979 Unknown [id number] 2.16.840.1.156546.3.579.2.59 3 1979 Unknown [id number] 2.16.840.1.006877.3.579.2.59 3 1979 Unknown [id number] 2.16.840.1.876987.3.579.2.59 3 1979 Unknown [id number] 2.16.840.1.585766.3.579.2.59 3 1979 Unknown [id number] 2.16.840.1.968508.3.579.2.59 3 1979 Unknown [id number] 2.16.840.1.618275.3.579.2.59 3 1979 Unknown [id number] 2.16.840.1.640547.3.579.2.59 3 1979 Unknown [id number] 2.16.840.1.340864.3.579.2.59 3 1979 Unknown [id number] 2.16.840.1.456781.3.579.2.59 3 1979 Unknown [id number] 2.16.840.1.960354.3.579.2.59 3 1979 Unknown [id number] 2.16.840.1.038038.3.579.2.59 3 1979 Unknown [id number] 2.16.840.1.529675.3.579.2.59 3 1979 Unknown [id number] 2.16.840.1.974548.3.579.2.59 3 1979 Unknown [id number] 2.16.840.1.435579.3.579.2.59 3 1979 Unknown [id number] 2.16.840.1.125494.3.579.2.59 3 1979 Unknown [id number] 2.16.840.1.701284.3.579.2.12 59 1979 Unknown [id number] 2.16.840.1.614841.3.579.2.12 59 1979 Unknown [id number] 2.16.840.1.718503.3.579.2.12 59 1979 Unknown [id number] 2.16.840.1.760999.3.579.2.12 59 1979 Unknown [id number] 2.16.840.1.867337.3.579.2.12 59 1979 Unknown [id number] 2.16.840.1.338536.3.579.2.12 59 1979 Unknown [id number] 2.16.840.1.901088.3.579.2.12 59 1959 Unknown [id number] 2.16.840.1.671488.19 1959 Unknown [id number] 2.16.840.1.525230.19 Unknown [id number] 2.16.840.1.943903.3.579.2.53 1 Social History Date Type Detail Facility Unknown if ever smoked [facility] Other Start: 03-23-2023 End: 06-17-2023 Sex Assigned At [facility] Start: 12-21-2022 Tobacco smoking status HIIS Never smoked tobacco [facility] Start: 12-21-2022 Tobacco use and exposure Smokeless tobacco non-user [facility] Start: 05-18-2023 End: 06-17-2023 Alcohol intake Current drinker of alcohol (finding) [facility] Start: 03-23-2023 End: 05-18-2023 Alcohol intake [facility] Within the last year , have you been afraid of your partner or ex-partner? Patient refused [facility] Are you now , , , , never or living with a partner? Refused [facility] (I/We) worried whether (my/our) food would run out before (I/we) got money to buy more. DK or Refused [facility] Start: 1980 Sex Assigned At Not on file [facility] Start: 1980 Sex Assigned At Male F [facility] Start: 10-19-2023 Tobacco smoking status HIIS Ex-smoker (finding) [facility] Medical Equipment Procedure Code Equipment Code Equipment Origin al Text Equipment Identifier Dates Start: 06-09-2023 Insulin Syringe-Needle U-100 (Bd Insulin Syringe Ultra-Fine) 1 mL 31 gauge x 5/16 syringe Start: 06-23-2023 blood sugar diagnostic (OneTouch Verio test strips) Start: 10-19-2023 Insulin Syringe-Needle U-100 (Bd Insulin Syringe Ultra-Fine) 1 mL 31 gauge x 5/16 syringe Start: 06-23-2023 Clinical Notes 05-10-2020 to 06-16-2023 Blossom Cody, JENNYFER - 06/16/2023 11:00 AM EST Note Date [...] sugars ranging from 120-170's. Sees Joshua in [place], next appt September 13 with them. Taking [...] associated with type 2 diabetes mellitus (CMS/HCC) Comments: Sees [facility], last HgbA1c 8.11 May 2023 (prior 8.9 end of December). Pt asked me why we can't just take care of his Diabetes, so he doesn't have to go to [place]. I told him because his sugars are [...] DM care again. 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 Now has left foot toe amputated. Per pt toe is healing Ulcer of foot due to type 2 diabetes mellitus (CMS/HCC): Hx of Poorly controlled diabetes mellitus (CMS/HCC): Last HgbA1c 8.2 Type 2 diabetes mellitus with hyperglycemia, with long-term current use of insulin (CMS/HCC): As above Vitamin B 12 deficiency Comments: Last WNL at 351 Hx of diabetic neuropathy: Hx of 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CMS/HCC): Hx of Morbid obesity (CMS/HCC) Comments: Enc healthy diet, watch sweets carbs. 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 Discussed seeing weight loss provider or seeing someone about gastric bypass-pt declined both. He is not interested in this Type 2 diabetes mellitus with foot ulcer, with long-term current use of insulin (CMS/[facility]): Hx of (no ulcer at this time, bu lit recent amputation of 4th toe 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.49): Hx of Status post amputation of lesser toe, unspecified laterality (CMS/[facility]): 4th toe-has appt for follow up with Dr Feldman Arthritis of left foot: Hx of Acquired hallux valgus of left foot: Hx of Type 2 Diabetes mellitus with hyperglycemia with alf current use of insulin (CMS/[facility]): Hx of Morbid obesity: See above documented in this encounter [facility] 06-15-2023 Evaluation note Encounter Date Diagnosis Assessment Notes Jun, Type 2 diabetes mellitus with hyperglycemia (ICD-10 - E11.65) [facility] Other 01-31-2024 Evaluation note* Encounter Date Diagnosis [...] Cost is prohibitive for pt to take linda lozano mounjaro. Daysi is tier 2 on formulary. Reviewed with [...] hyperglycemia, or diabetes medication issues. 6. Prescriptions: [facility]- syringes, pen needles, victoza sent. 06/09/23 7. [...] f/u with pcp for further recommendation May, prison current use of insulin (ICD-10 - Z79.4) May, Vitamin B 12 deficiency (ICD-10 - E53.8) 04/01 vit b 12 351 at target May, BMI 50.0-59.9, adult (ICD-10 - Z68.43) see above May, Amputation toe (ICD-10 - Z89.429) Keep f/u with Dr. Feldman May, Cracked skin on feet (ICD-10 - R23.4) keep f/u with Dr. Feldman [facility] Other 08-28-2023 Evaluation note* Encounter Date Diagnosis [...] is prohibitive for pt to take jardiance. Daysi is tier 2 on formulary. Reviewed with [...] for Lispro/ozempic 0.5mg sent to [facility] in [place] 01/04/23 7. 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 Feldman today [facility] Other 05-30-2023 NotePROCEDURE: XR FOOT LT MIN [...] pes planus, grossly stable Electronically authenticated by: FRACNO FRANCES Date: 2022-10-06 14:13[facility]05-04-2023 Evaluation note* Encounter Date Diagnosis Assessment Notes Treatment Notes Treatment Clinical Notes September, Type 2 diabetes mellitus with hyperglycemia (ICD-10 - E11.65) [facility] Other [id number] NotePROCEDURE: XR FOOT LT MIN 3 VIEWS [...] Electronically authenticated by: FERN SOSA Date: 2022-08-24 12:46[facility]02-16-2023 Evaluation note* Encounter Date Diagnosis Assessment Notes Treatment Notes Treatment Clinical Notes Jun, Type 2 diabetes mellitus with hyperglycemia (ICD-10 - E11.65) 1. Uncontrolled, a Type 2 diabetes with A1c of 8.2% 2. Blood glucose levels above target. Discussed with pt restarting ozempic, he had s/e from higher dose ozempic 1mg and concern with cost works at [employer]. Pt agreeable to starting sample ozempic 0.5mg dose- he was given sample and administered first dose 0.25mg; reviewed with pt dosing 0.25mg once weekly x4 weeks then 0.5mg once weekly. Reviewed with pt how to titrate basal/bolus insulin according to fasting am/ac supper/ meal to meal glucose pattern. Pt verebalizes understandng. Note: Cost is prohibitive for pt to take jardiance. Daysi is tier 2 on formulary. Reviewed with [...] issues. 6. Prescriptions: Syringes/ozempic/st eglatro sent to [facility] in [place] 06/25/22 7. Prescriptions will not be filled [...] (hypertension) (ICD-10 - I10) on julissa Jun, prison current use of insulin (ICD-10 - Z79.4) Jun, Vitamin B 12 deficiency (ICD-10 - E53.8) 12/28 vit b 12 423 at target Jun, BMI 50.0-59.9, adult (ICD-10 - Z68.43) [facility] 02-07-2023 NotePROCEDURE: XR ANKLE LT MIN [...] Electronically authenticated by: GISSEL RUBIO Date: 2022-06-16 16:33[facility]02-07-2023 NotePROCEDURE: XR ANKLE LT MIN [...] Electronically authenticated by: GISSEL RUBIO Date: 2022-06-16 16:33[facility]08-30-2022 Evaluation note* Encounter Date Diagnosis [...] (hypertension) (ICD-10 - I10) on julissa Dec, prison current use of insulin (ICD-10 - Z79.4) Dec, Vitamin B 12 deficiency (ICD-10 - E53.8) 12/28 vit b 12 423 at target Dec, BMI 45.0-49.9, adult (ICD-10 - Z68.42) 14 pound weight loss from last visit, continue with weight loss efforts [facility] 01-01-2021 History general Narrative - Reported* Type Description Date Medical History type II diabetes Medical History hypertension Medical History hyperlipidemia Medical History covid 05/2020 Surgical History Ulcer on left great toe X2 Surgical History Partial amputation Right great toe 01/2021 Surgical History All toes right foot amputated Hospitalization History Toe infection 2017 [facility] 01-01-2021 History general Narrative - Reported* Type Description Date Medical History type II diabetes Medical History hypertension Medical History hyperlipidemia Medical History covid 05/2020 Surgical History Ulcer on left great toe X2 Surgical History Partial amputation Right great toe 01/2021 Surgical History All toes right foot amputated Surgical History Left great toe corre ctive surgery with Dr. Feldman in [place] 10/2022 Hospitalization History Toe infection 2017 [facility] Other Chief complaint+Reason for visit Narrative* Chief Complaint no meter Reason for Visit BMI 50.0-59.9, adult Dietary counseling and surveillance Hypertension Mixed hyperlipidemia Type 2 diabetes mellitus with hyperglycemia [facility] Work Phone: Evaluation noteNo InformationNortAllegheny General Hospital [employer] 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, sequela ([facility]/HCC) Ulcer of foot due to type 2 diabetes mellitus ([facility]/HCC) Vitamin B 12 deficiency Other B-complex deficiencies Hx of diabetic neuropathy 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CMS/HCC) Lipoprotein deficiencies Hypertriglyceridemia ([facility]/HCC) Pure hyperglyceridemia 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, 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) Essential hypertension Unspecified essential hypertension Nasal congestion Other diseases of nasal cavity and sinuses Type 2 diabetes mellitus with diabetic autonomic neuropathy, with long-term current use of insulin (CMS/HCC) 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) Acquired absence of other toe(s), unspecified side (Z89.429) Type 2 diabetes mellitus with diabetic neuropathy, with long-term current use of insulin ([facility]) Body mass index [BMI] 50.0-59.9, adult (Z68.43) Type 2 diabetes mellitus with foot ulcer, with long-term current use of insulin ([facility]) 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.49) Status post amputation of lesser toe, unspecified laterality ([facility]) Arthritis of left foot Acquired hallux valgus of left foot Type 2 diabetes mellitus with hyperglycemia, with long-term current use of insulin ([facility]) Morbid obesity ([facility]) Morbid obesity documented in this encounter [facility] HealthcareEvaluation noteNo assessment information availableRiverview Health Institute Work Phone: Evaluation note* Diagnosis Onset Date Resolution Status BMI 50.0-59.9, adult acute Dietary counseling and surveillance acute Hypertension acute Mixed hyperlipidemia acute Type 2 diabetes mellitus with hyperglycemia acute [facility] Work Phone: Summary Purpose Family History Relationship Condition Age at Onset Recorded Date/T juan brother Diabetes mellitus Unknown father Malignant neoplasm Unknown Not Specified Diabetes mellitus Unknown Advance Directives Advance Directive Response Recorded Date/ Time Advance Directives No March 11, 2020 12:01pm Advance Directive Response Recorded Date/ Time Advance Directives No March 11, 2020 1:01pm Chief Complaint and Reason for Visit Chief Complaint Dm DM Additional Source Comments (unrecognized sect ion and content) No Status Records FoundNo Status Records FoundNo Status Records FoundNo Status Records Found INFORMATION SOURCE (unrecogn ized section and content) DATE CREATED AUTHOR 08/27/2021 [facility] DATE CREATED AUTHOR AUTHOR'S ORGANIZ ATION 10/17/2022 [facility] DATE CREATED AUTHOR AUTHOR'S ORGANIZ ATION 08/14/2023 [facility] DATE CREATED AUTHOR AUTHOR'S ORGANIZ ATION 10/13/2023 [facility] Specialists EPIC REASON FOR VISIT (unrecogniz ed section and content) Reason Comments Diabetes Pt saw endocrinology last week and has his hgbA1c. HgbA1c was 8.2 and his results and notes are under media from that appt on 06-09-22 Care Teams (unrecognized sec tion and content) Chainman Relationship Specialty Start Date End Date JohnNatalie ruiz MD [address] [place] [address] PCP - General Family Medicine 09/15/22 Chainman Relationship Specialty Start Date End Date Johnsara Natalie Lozada MD [address] [place] [address] PCP - General Family Medicine 09/15/22 Team [...] Team Status: Inactive Member Role Status Dates Natalie Hernandez MD Primary Care Provider Active Start: October 19, 2023 End: October 19, 2023 Link Ortega APRN Attending Provider Active Start: October 19, 2023 End: October 19, 2023 Goals (unrecognized section and content) Goals [...] BE BASED ON THE PRIMARY CLINICAL RECORDS. [employer] provides no warranty or guarantee of the accuracy or completeness of information in this document.
== END 2023-10-25 15:55 | disposition home or self-care (01) ==
LOC: WC 15:55
PROVIDERS: PCP Family Medicine; Visit Provider Physician Assistant
DX: E11.621 Type 2 diabetes mellitus with foot ulcer (principal); L97.528 Non-pressure chronic ulcer of other part of left foot with other specified severity; L97.418 Non-pressure chronic ulcer of right heel and midfoot with other specified severity
CPT/HCPCS: 11043; G0463

== ENCOUNTER 2023-11-02 11:11 | Outpatient (OUT) | payer OTHER, SELFPAY ==
--- NOTE | 2023-11-02 | XR_ITS ---
[place] [id number] Patient Name: JANETH MCKEON MRN: [id number] date: 1980 Sex: M Assigned Patient Location: Current Patient Location: Accession/Order Number: [id number] Exam Date: 11/02/2023 11:13 Report Date: 11/02/2023 13:10 At the request of: ALEX RUIZ Procedure: XR foot RT min 3V PROCEDURE: XR foot RT min 3V COMPARISON: 09/25/2021 HISTORY: RIGHT FOOT PAIN FINDINGS: BONES:Stable amputation of the forefoot along the proximal diaphysis of the first through fifth metatarsals. Moderate degenerative changes with joint space narrowing and marginal osteophyte formation. Moderate enthesopathic spurring of the calcaneus SOFT TISSUES:Negative. No visible soft tissue swelling. EFFUSION:None visible. OTHER: Vascular calcifications XR/XR foot RT min 3V IMPRESSION: Stable forefoot amputation Electronically authenticated by: FRANCO FRANCES Date: 11/02/2023 13:10
--- OUTSIDE RECORDS SUMMARY | 2023-11-02 11:29 | XMS_ITS ---
Patient Summarization (C-CDA 2.1 CCD) Created on: November 02, 2023 TREV ONTIVEROS : 1980 Sex: Male Author Organization Sample organization Care Team Providers Care Component Lab Tech Name Role Phone Link Ortega Unavailable NATANAEL [...] DR GISSEL Kohli Consulting Unavailable WONDERLY, DR NTAALIE Lozada Primary Care Unavailable NATANAEL FELDMAN Consulting [...] HIGHLANDER, NATANAEL Marks Admitting Unavailable WONDERLY, DR NAATLIE Lozada Primary Care Unavailable HIGHLANDER, NATANAEL Marks [...] Unavailable HIGHLANDER, NATANAEL Marks Attending Unavailable HIGHLANDER, PETER D Admitting Unavailable WONDERLY, DR NATALIE Lozada Primary Care Unavailable HIGHLANDER, NATANAEL Marks Attending Unavailable HIGHLANDER, PETER D Admitting Unavailable WONDERLY, DR NATALIE Lozada Primary Care Unavailable HIGHLANDER, NATANAEL Marks Attending Unavailable HIGHLANDER, PETER D Admitting Unavailable WONDERLY, DR NATALIE Lozada Primary Care Unavailable HIGHLANDER, NATANAEL D Attending Unavailable WONDERLY, DR NATALIE Lozada Primary Care Unavailable HIGHLANDER, PETER D Admitting Unavailable HIGHLANDER, PETER D Attending Unavailable HIGHLANDER, PETER D Admitting Unavailable WEST, DR FRANCO Adamson Consulting Unavailable WONDERLY, DR NATALIE Lozada Primary Care Unavailable HIGHLANDER, NATANAEL Marks Consulting Unavailable HIGHLANDER, NATANAEL Marks Attending Unavailable WONDERLY, DR NATALIE Lozada Primary Care Unavailable HIGHLANDER, PETER D Admitting Unavailable HIGHLANDER, PETER Selina Attending Unavailable HIGHLANDER, PETER D Admitting Unavailable WONDERLY, DR NATALIE Lozada Primary Care Unavailable HIGHLANDER, NATANAEL Marks Attending Unavailable WONDERLY, DR NATALIE Lozada Primary Care Unavailable HIGHLANDER, NATANAEL Marsk Admitting Unavailable Wonderly Natalie AVALOS Primary Care Provider MD Damon Claros Attending Provider MD Natalie Hernandez Primary Care Provider Shelby, Natalie [facility] Care Unavailable Damon Claros Attending Unavailable Damon Claros Admitting Unavailable SRAVAN, BLOSSOM Kong Attending Unavailable SRAVAN, BLOSSOM Kong Attending Unavailable SRAVAN, BLOSSOM Kong Attending Unavailable RUSHER, MIRLANDE Zhang Attending Unavailable RUSHER, MIRLANDE Zhang Attending Unavailable SRAVAN, BLOSSOM Kong Attending Unavailable RUSHER, MIRLANDE S Attending Unavailable RUSHER, MIRLANDE S Attending Unavailable Encounters Encounter Date Encounter Type Care Provider Facility Start: 10-29-2023 End: 10-29-2023 ambulatory MIRLANDE PECK Not Available Start: 10-19-2023 End: 10-19-2023 ambulatory [facility] Work Phone: Start: 10-19-2023 End: 10-19-2023 Patient encounter procedure [facility] Work Phone: Start: 10-12-2023 End: 10-12-2023 ambulatory MIRLANDE PECK Not Available Start: 09-15-2023 End: 09-15-2023 ambulatory BLOSSOM MEJIAEL Not Available Start: 09-06-2023 End: 09-06-2023 ambulatory MIRLANDE PECK Not Available Start: 08-02-2023 End: 08-02-2023 ambulatory MIRLANDE PECK Not Available Start: 07-07-2023 End: 07-07-2023 ambulatory BLOSSOM CODY Not Available Start: 06-16-2023 Bamboo flowsheet Blossom cabrales FACILITY SPECIALIST Work Phone: [facility] Start: 06-16-2023 Bamboo flowsheet Blossom cabrales FACILITY SPECIALIST Work Phone: [facility] Start: 06-16-2023 End: 06-16-2023 Office outpatient visit 25 minutes Blossom Cody FACILITY SPECIALIST Work Phone: [facility] Comment on above: Diabetic polyneuropa thy associated with type 2 diabetes mellitus (CMS/HCC) (Primary Dx); Diabetic neuropathic arthropathy (CMS/HCC); Type 2 diabetes mellitus with neurological manifestation (CMS/[facility]); 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, sequela (CMS/[facility]); Ulcer of foot due to type 2 diabetes mellitus (CMS/HCC); Vitamin B 12 deficiency; Hx of diabetic neuropathy; 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CMS/HCC); Hypertriglyceridemia (CMS/HCC); 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, 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); Essential hypertension; Nasal congestion; Type 2 diabetes mellitus with diabetic autonomic neuropathy, with long-term current use of insulin (CMS/[facility]); 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 (Z79.4); Acquired absence of other toe(s), unspecified side (Z89.429); Type 2 diabetes mellitus with diabetic neuropathy, with long-term current use of insulin ([facility]); Body mass index [BMI] 50.0-59.9, adult (Z68.43); Type 2 diabetes mellitus with foot ulcer, with long-term current use of insulin (CMS/HCC); 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.49); Status post amputation of lesser toe, unspecified laterality (CMS/HCC); Arthritis of left foot; Acquired hallux valgus of left foot; Type 2 diabetes mellitus with hyperglycemia, with long-term current use of insulin ([facility]); Morbid obesity ([facility]) Start: 06-16-2023 End: 06-16-2023 ambulatory BLOSSOM MEJIAEL Not Available Start: 06-15-2023 End: 06-15-2023 ambulatory Tondra Mapus Other [facility] Other Start: 06-15-2023 Telephone encounter Tondra Mapus [facility] Start: 06-09-2023 (DM) Diabetes Tondra Mapus [facility] Start: 06-09-2023 End: 06-10-2023 ambulatory MD Natalie Hernandez Work Phone: [facility] Other Start: 06-09-2023 End: 06-09-2023 Discharged Recurring MD Natalie Hernandez [facility] Work Phone: Start: 06-09-2023 End: 06-09-2023 Patient encounter procedure MD Natalie Hernandez Work Phone: [facility]- Start: 03-24-2023 End: 03-24-2023 ambulatory BLOSSOM CODY Not Available Start: 01-04-2023 (DM) Diabetes Tondra Shannon [facility] Start: 01-04-2023 End: 01-04-2023 ambulatory Tondra Mapus Other [facility] Other Start: 12-21-2022 End: 12-21-2022 ambulatory Tondra Mapus Other [facility] Other Start: 12-21-2022 Telephone encounter [facility] Start: 10-12-2022 ambulatory NATANAEL FELDMAN Faci lity:H1 Start: 10-06-2022 End: 10-07-2022 ambulatory NATANAEL FELDMAN Facility:H1 Start: 10-01-2022 Encounter for preprocedural cardiovascular examination NATANAEL Marks [facility] Start: 10-01-2022 Encounter for preprocedural laboratory examination NATANAEL Marks [facility] Start: 09-30-2022 End: 10-01-2022 ambulatory NATANAEL Marks [facility] Facility:H1 Start: 09-30-2022 End: 10-01-2022 Encounter for preprocedural laboratory examination NATANAEL Marks [facility] Facility:H1 Start: 09-15-2022 End: 09-16-2022 ambulatory NATANAEL Marks [facility] Facility:H1 Start: 09-10-2022 End: 09-10-2022 ambulatory Tondra Mapus Other [facility] Other Start: 09-10-2022 Telephone encounter Tondra Dayannaus [facility] Start: 08-24-2022 End: 08-25-2022 ambulatory NATANAEL Marks [facility] Facility:H1 Start: 08-10-2022 End: 08-10-2022 ambulatory Tondra Mapus Other [facility] Other Start: 08-10-2022 Telephone encounter Tondra Mapus [facility] Start: 08-03-2022 End: 08-04-[address] NATALIE HERNANDEZ Facility:H1 Start: 07-13-2022 End: 07-14-2022 ambulatory MARTELLMIGNON NAVAS Facility:H1 Start: 06-30-2022 End: 07-01-2022 ambulatory NATANAEL Marks [facility] Facility:H1 Start: 06-25-2022 (DM) Diabetes Tondra Dayannaus [facility] Start: 06-25-2022 End: 06-25-2022 ambulatory Tondra Mapus Other [facility] Other Start: 06-16-2022 End: 06-17-2022 ambulatory NATANAEL Marks [facility] Facility:H1 Start: 06-08-2022 End: 06-09-2022 ambulatory NATANAEL Marks [facility] Facility:H1 Start: 05-25-2022 End: 05-26-2022 ambulatory NATANAEL Marks [facility] Facility:H1 Start: 05-12-2022 End: 05-13-2022 ambulatory PETER [...] HIGHLANDER Facility:H1 Start: 03-16-2022 End: 03-17-2022 ambulatory NATANAEL D HIGHLANDER Facility:H1 Start: 03-09-2022 End: 03-10-2022 ambulatory PETER D HIGHLANDER Facility:H1 Start: 03-03-2022 End: 03-04-2022 ambulatory NATANAEL D HIGHLANDER Facility:H1 Start: 02-18-2022 End: 02-18-2022 ambulatory Tondra Mapus Other [facility] Other Start: 02-18-2022 Telephone encounter Tondra Shannon [facility] Start: 02-09-2022 End: 02-10-2022 ambulatory NATANAEL Marks HIGHLANDER Facility:H1 Start: 01-26-2022 End: 01-27-2022 ambulatory NATANAEL D HIGHLANDER Facility:H1 Start: 01-13-2022 End: 01-14-2022 ambulatory NATANAEL FELDMAN Facility:H1 Start: 01-06-2022 (DM) Diabetes Tondra Shannon [facility] Start: 01-06-2022 End: 01-06-2022 ambulatory Tondra Mapus Other [facility] Other Start: 12-29-2021 End: 12-30-2021 ambulatory PETER D HIGHLANDER Facility:H1 Start: 12-22-2021 End: 12-23-2021 ambulatory PETER D HIGHLANDER Facility:H1 Start: 12-15-2021 End: 12-16-2021 ambulatory NATANAEL FELDMAN Facility:H1 Start: 12-08-2021 End: 12-09-2021 ambulatory NATANAEL FELDMAN Facility:H1 Start: 12-01-2021 End: 12-02-2021 ambulatory NATANAEL FELDMAN Facility:H1 Start: 11-24-2021 End: 11-25-2021 ambulatory NATANAEL FELDMAN Facility:H1 Start: 11-20-2021 End: 11-21-2021 ambulatory NATANAEL FELDMAN Facility:H1 Start: 11-17-2021 End: 11-18-2021 ambulatory NATANAEL FELDMAN Facility:H1 Start: 11-14-2021 End: 11-15-2021 ambulatory NATANAEL [...] 10-20-2021 End: 10-21-2021 ambulatory NATANAEL FELDMAN Facility:H1 Medical Equipment Procedure Code Equipment Code Equipment Origin al Text Equipment Identifier Dates Start: 06-09-2023 Insulin Syringe-Needle U-100 (Bd Insulin Syringe Ultra-Fine) 1 mL 31 gauge x 5/16 syringe Start: 06-23-2023 blood sugar diagnostic (OneTouch Verio test strips) Start: 10-19-2023 Insulin Syringe-Needle U-100 (Bd Insulin Syringe Ultra-Fine) 1 mL 31 gauge x 5/16 syringe Start: 06-23-2023 Immunizations Immunization Date Immunization Notes Care Provider Fa [facility] 03-24-2023 influenza, injectabl e, quadrivalent, preservative free Blossom Cody NP Work Phone: [facility] 08-26-2021 tetanus and diphther ia toxoids, adsorbed, preservative free, for adult use (5 Lf of tetanus toxoid and 2 Lf of diphtheria toxoid) Blossom Cody FACILITY SPECIALIST Work Phone: [facility] 03-28-2021 influenza, injectabl e, quadrivalent, preservative free Blossom Cody FACILITY SPECIALIST Work Phone: [facility] 02-13-2020 Influenza, injectabl e, Madin Tiger Canine Kidney, preservative free, quadrivalent Blossom Cody FACILITY SPECIALIST Work Phone: [facility] 02-22-2019 influenza, injectabl e, quadrivalent, preservative free Blossom Cody FACILITY SPECIALIST Work Phone: [facility] 02-07-2018 influenza, injectabl e, quadrivalent, preservative free Blossom Cody FACILITY SPECIALIST Work Phone: [facility] Medications Current Medications Medication Drug Class(es) Dates [...] Glargine-Yfgn Discontinued 46 UNIT SUBCUT Twice daily July 26, 2023 3:32pm October 19, 2023 11:40am Start: 07-26-2023 End: 07-26-2023 inject 46 [IU] by subcutaneous injection twice daily Insulin Glargine-Yfgn Discontinued 46 UNIT SUBCUT Twice daily 90 July 26, 2023 9:10am July 26, [...] Once a day for 30 day(s) Not-Taking Payers Date Payer Category Payer Unknown [employer] [id number] 2022-Present [address] [address] [place] [address] [id number] 2020 Self-pay [id number] 1980 Unknown [id number] 2.16.840.1.712540.3.579.2.59 3 1980 Unknown [id number] 2.16.840.1.445615.3.579.2.59 3 1979 Unknown [id number] 2.16.840.1.089082.3.579.2.59 3 1979 Unknown [id number] 2.16.840.1.277867.3.579.2.59 3 1979 Unknown [id number] 2.16.840.1.720193.3.579.2.59 3 1979 Unknown [id number] 2.16.840.1.837682.3.579.2.59 3 1979 Unknown [id number] 2.16.840.1.459053.3.579.2.59 3 1979 Unknown [id number] 2.16.840.1.856983.3.579.2.59 3 1979 Unknown [id number] 2.16.840.1.572796.3.579.2.59 3 1979 Unknown [id number] 2.16.840.1.896602.3.579.2.59 3 1979 Unknown [id number] 2.16.840.1.366247.3.579.2.59 3 1979 Unknown [id number] 2.16.840.1.382793.3.579.2.59 3 1979 Unknown [id number] 2.16.840.1.861420.3.579.2.59 3 1979 Unknown [id number] 2.16.840.1.675670.3.579.2.59 3 1979 Unknown [id number] 2.16.840.1.141154.3.579.2.59 3 1979 Unknown [id number] 2.16.840.1.054755.3.579.2.59 3 1979 Unknown [id number] 2.16.840.1.539029.3.579.2.59 3 1979 Unknown [id number] 2.16.840.1.146894.3.579.2.59 3 1979 Unknown [id number] 2.16.840.1.625092.3.579.2.59 3 1979 Unknown [id number] 2.16.840.1.913476.3.579.2.59 3 1979 Unknown [id number] 2.16.840.1.782428.3.579.2.59 3 1979 Unknown [id number] 2.16.840.1.089727.3.579.2.59 3 1979 Unknown [id number] 2.16.840.1.090143.3.579.2.59 3 1979 Unknown [id number] 2.16.840.1.299385.3.579.2.59 3 1979 Unknown [id number] 2.16.840.1.358380.3.579.2.59 3 1979 Unknown [id number] 2.16.840.1.617414.3.579.2.59 3 1979 Unknown [id number] 2.16.840.1.441176.3.579.2.59 3 1979 Unknown [id number] 2.16.840.1.639211.3.579.2.59 3 1979 Unknown [id number] 2.16.840.1.249491.3.579.2.59 3 1979 Unknown [id number] 2.16.840.1.050091.3.579.2.59 3 1979 Unknown [id number] 2.16.840.1.255858.3.579.2.59 3 1979 Unknown [id number] 2.16.840.1.865861.3.579.2.59 3 - Unknown [id number] 2.16.840.1.737563.3.579.2.59 3 1979 Unknown [id number] 2.16.840.1.931996.3.579.2.59 3 1979 Unknown [id number] 2.16.840.1.762827.3.579.2.59 3 1979 Unknown [id number] 2.16.840.1.207532.3.579.2.59 3 1979 Unknown [id number] 2.16.840.1.972249.3.579.2.59 3 1979 Unknown [id number] 2.16.840.1.718290.3.579.2.59 3 1979 Unknown [id number] 2.16.840.1.392051.3.579.2.59 3 1979 Unknown [id number] 2.16.840.1.664368.3.579.2.59 3 1979 Unknown [id number] 2.16.840.1.153150.3.579.2.59 3 1979 Unknown [id number] 2.16.840.1.991028.3.579.2.12 59 1979 Unknown [id number] 2.16.840.1.546480.3.579.2.12 59 1979 Unknown [id number] 2.16.840.1.720564.3.579.2.12 59 1979 Unknown [id number] 2.16.840.1.563904.3.579.2.12 59 1979 Unknown [id number] 2.16.840.1.925688.3.579.2.12 59 1979 Unknown [id number] 2.16.840.1.527623.3.579.2.12 59 1979 Unknown [id number] 2.16.840.1.146683.3.579.2.12 59 1979 Unknown [id number] 2.16.840.1.725446.3.579.2.12 59 1959 Unknown [id number] 2.16.840.1.779491.19 1959 Unknown [id number] 2.16.840.1.392850.19 Unknown [id number] 2.16.840.1.299817.3.579.2.53 1 Plan of Treatment Date Care Activity Detail Author Start: 03-24-2024 Urine screening for protein Diabetes: Urine Protein Screening [facility] Start: 09-15-2023 End: 09-15-2023 Patient encounter procedure 09/15/2023 9:30 AM EDT Office Visit [facility] [address] [place] [address] Blossom Cody NP [address] [place] [address] [facility] Start: 09-07-2023 Hemoglobin A1c measurement Diabetes: Hemoglobin A1C [facility] Start: 07-26-2023 Glaucoma screening Diabetes: Retinopathy Screening [facility] Start: 07-07-2023 End: 07-07-2023 Patient encounter procedure 07/07/2023 9:00 AM EST Office Visit [facility] [address] [place] [phone] [facility] Start: 06-16-2023 End: 06-16-2023 Patient encounter procedure 06/16/2023 11:00 AM EST [facility] [address] [place] [phone] Blossom Cody NP [address] [place] [address] Diabetic polyneuropathy associated with type 2 diabetes mellitus (CMS/HCC) (Primary Dx); Diabetic neuropathic arthropathy (CMS/HCC); 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); 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, sequela ([facility]/HCC); Ulcer of foot due to type 2 diabetes mellitus ([facility]/HCC); Poorly controlled diabetes mellitus ([facility]/HCC); Type 2 diabetes mellitus with hyperglycemia, with long-term current use of insulin ([facility]); Vitamin B 12 deficiency; Hx of diabetic neuropathy; 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[facility]/HCC); Morbid obesity ([facility]/HCC); Hypertriglyceridemia ([facility]/HCC) [facility] Comment on above: Diabetic polyneuropathy associated with type 2 diabetes mellitus ([facility]/HCC) (Primary Dx); Diabetic neuropathic arthropathy ([facility]/HCC); Type 2 diabetes mellitus with neurological manifestation ([facility]); 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, sequela ([facility]); Ulcer of foot due to type 2 diabetes mellitus ([facility]/HCC); Poorly controlled diabetes mellitus ([facility]); Type 2 diabetes mellitus with hyperglycemia, with long-term current use of insulin ([facility]); Vitamin B 12 deficiency; Hx of diabetic neuropathy; 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[facility]); Morbid obesity ([facility]); Hypertriglyceridemia ([facility]) Comprehensive metabo lic 2000 panel - Serum or Plasma [facility] Patient Education Diabetes and diet [facility] Work Phone: 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 Onset: 01-06-2022 Resolved: [...] NONTHERMAL RT FOOT INITIAL] Onset: 12-29-2021 Episodic Procedures Date Procedure Procedure Detail Performing Clinician Amputation of toe Tondra Map Other History of amputatio n of lesser toe Status post amputation of lesser toe, unspecified laterality (CMS/[facility]) Blossom Cody FACILITY SPECIALIST Work Phone: Results Test Name Value Interpretation Reference Range Facil ity A1C HEMOGLOBINon 06-09-2023 HbA1c (Bld) [Mass fraction] 8.2 % [facility] Other Glucose - FINGER STICKon Glucose [Mass/Vol] 170 mg/dL [facility] Other HbA1c (Bld) [Mass fraction]o n 06-09-2023 A1C HEMOGLOBIN [facility] Other A1C HEMOGLOBINon 01-04-2023 HbA1c (Bld) [Mass fraction] 8.9 % [facility] Other Glucose - FINGER STICKon Glucose [Mass/Vol] 201 mg/dL [facility] Other HbA1c (Bld) [Mass fraction]o n 01-04-2023 A1C HEMOGLOBIN [facility] Other PROF CHEM 8 (BAS METB)on Anion gap [Moles/Vol] 14.3 mmol/L Normal [facility] Comment on above: Performed By: #### B MP #### [facility] [address] [address] [address] Lauri Todd Calcium [Mass/Vol] 9.4 mg/dL Normal 8.5-10.1 [facility] Comment on above: Performed By: #### B MP #### [facility] [address] [address] [address] Lauri Todd Chloride [Moles/Vol] 101 mmol/L Normal 98-107 [facility] Comment on above: Performed By: #### B MP #### [facility] [address] [place] [address] Dr. Lauri Todd CO2 [Moles/Vol] 26.2 mmol/L Normal 21.0-32.0 [facility] Comment on above: Performed By: #### B MP #### [facility] [address] [place] [address] Dr. Lauri Todd Creatinine [Mass/Vol] 0.90 mg/dL Normal 0.70-1.30 [facility] Comment on above: Performed By: #### B MP #### [facility] [address] [place] [address] Dr. Lauri Todd EGFR-AF ZIMBABWEAN >60 Normal >=60 [facility] Comment on above: Performed By: #### B MP #### [facility] [address] [place] [address] Dr. Lauri Todd EGFR-NON AF ZIMBABWEAN >60 Normal >=60 [facility] Comment on above: Performed By: #### B MP #### [facility] [address] [address] [address] Lauri Todd Glucose [Mass/Vol] 146 mg/dL Critically high 74-106 [facility] Comment on above: Performed By: #### B MP #### [facility] [address] [place] [address] Dr. Lauri Todd Potassium [Moles/Vol] 4.5 mmol/L Normal 3.5-5.1 [facility] Comment on above: Performed By: #### B MP #### [facility] [address] [place] [address] Dr. Lauri Todd Sodium [Moles/Vol] 137 mmol/L Normal 136-145 [facility] Comment on above: Performed By: #### B MP #### [facility] [address] [place], [place] [address] Dr. Lauri Todd Urea nitrogen [Mass/Vol] 16.0 mg/dL Normal 7.0-18.0 [facility] Comment on above: Performed By: #### B MP #### [facility] [address] [place], [place] [address] Dr. Lauri Todd Urea nitrogen/Creatinin e [Mass ratio] 17.8 mg/mg Normal [facility] Comment on above: Performed By: #### B MP #### [facility] [address] [address] [address] Lauri Todd A1C HEMOGLOBINon 06-25-2022 HbA1c (Bld) [Mass fraction] 8.2 % [facility] Other Glucose - FINGER STICKon Glucose [Mass/Vol] 180 mg/dL [facility] Other HbA1c (Bld) [Mass fraction]o n 06-25-2022 A1C HEMOGLOBIN [facility] [employer] Other XR FOOT LT MIN 3 VIEWSon [...] WHITAKER Date: 2022-05-25 11:52 Normal [facility] A1C HEMOGLOBINon 08-30-2022 HbA1c (Bld) [Mass fraction] 7 % [facility] Other Glucose - FINGER STICKon Glucose [Mass/Vol] 148 mg/dL [facility] Other HbA1c (Bld) [Mass fraction]o n 01-06-2022 A1C HEMOGLOBIN [facility] Other Basic Metabolic Panelon - Anion gap [Moles/Vol] 20 mmol/L Normal 12-20 [facility] Comment on above: Result Comment: Effe ctive 05/15/2019 reference range changed. Performed By: #### B MP #### [facility] [address] [place], [place] [id number] Calcium [Mass/Vol] 10.0 mg/dL Normal 8.6-10.2 [facility] Comment on above: Performed By: #### B MP #### [facility] [address] [place], [place] [id number] Chloride [Moles/Vol] 100 mmol/L Normal 98-107 [facility] Comment on above: Performed By: #### B MP #### [facility] [address] [place], [place] [id number] CO2 [Moles/Vol] 22 mmol/L Normal 20-31 [facility] Comment on above: Performed By: #### B MP #### [facility] [address] [place], [place] [id number] Creatinine [Mass/Vol] 0.8 mg/dL Normal 0.7-1.4 [facility] Comment on above: Performed By: #### B MP #### [facility] [address] [place], [place] [id number] eGFRAA 129 mL/min/1.73m2 Normal >60 [facility] Comment on above: Performed By: #### B MP #### [facility] [address] [place], [place] [id number] eGFRNAA 107 mL/min/1.73m2 Normal >60 [facility] Comment on above: Performed By: #### B MP #### [facility] [address] [place], [place] [id number] Glucose [Mass/Vol] 140 mg/dL High 65-99 [place] [place] Supervisor [employer] Comment on above: Result Comment: For FASTING Glucose --- ADA reference ranges: Normal 65-99 mg/dl Prediabetes 100-125 Diabetes >/= 126 Performed By: #### B MP #### [facility] [address] [place], [place] [id number] Potassium [Moles/Vol] 4.3 mmol/L Normal 3.5-5.5 [facility] Specialist Comment on above: Performed By: #### B MP #### [facility] [address] [place], [place] [id number] Sodium [Moles/Vol] 137 mmol/L Normal 135-146 [facility] Supervisor [employer] Comment on above: Performed By: #### B MP #### [facility] [address] [place], [place] [id number] Urea nitrogen [Mass/Vol] 17 mg/dL Normal 7-25 [facility] Supervisor [employer] Comment on above: Performed By: #### B MP #### [facility] [address] [place], [place] [id number] Social History Date Type Detail Facility Start: 10-19-2023 Tobacco smoking status SDIS Ex-smoker (finding) [facility] Start: 05-18-2023 End: 06-17-2023 Alcohol intake Current drinker of alcohol (finding) [facility] Start: 03-23-2023 End: 05-18-2023 Alcohol intake [facility] Start: 03-23-2023 End: 06-17-2023 Sex Assigned At [facility] Start: 12-21-2022 Tobacco smoking status SDIS Never smoked tobacco [facility] Start: 12-21-2022 Tobacco use and exposure Smokeless tobacco non-user [facility] Start: 1980 Sex Assigned At Not on file N [facility] Start: 1980 Sex Assigned At Male [facility] Unknown if ever smoked [facility] Other Within the last year , have you been afraid of your partner or ex-partner? Patient refused [facility] Are you now , , , , never or living with a partner? Refused [facility] (I/We) worried whether (my/our) food would run out before (I/we) got money to buy more. DK or Refused [facility] Vital Signs Date Time Vital Sign Value Performing Clinician Facility 10-19-2023 11:31-0400 Body height 182.88 cm [facility] 10-19-2023 11:31-0400 Body mass index (BMI) [Ratio] 51.7 kg/m2 [facility] 10-19-2023 11:31-0400 Body weight 172.87 kg [facility] 10-19-2023 11:31-0400 Diastolic blood pressure 83 mm[Hg] [facility] 10-19-2023 11:31-0400 Heart rate 74 /min [facility] 10-19-2023 11:31-0400 Respiratory rate 18 /min [facility] 10-19-2023 11:31-0400 SaO2% (BldA) [Mass fraction] 97 % [facility] 10-19-2023 11:31-0400 Systolic blood pressure 149 mm[Hg] [facility] 06-16-2023 11:33-0500 Diastolic blood pressure 84 mm[Hg] Blossom Cody FACILITY SPECIALIST Work Phone: [facility] 06-16-2023 11:33-0500 Systolic blood pressure 154 mm[Hg] Blossom Cody FACILITY SPECIALIST Work Phone: [facility] 06-16-2023 11:02-0500 Body mass index (BMI) [Ratio] 52.12 kg/m2 Blossom Cody FACILITY SPECIALIST Work Phone: [facility] 06-16-2023 11:02-0500 Body weight 171.91 kg Blossom Cody FACILITY SPECIALIST Work Phone: [facility] 06-16-2023 11:02-0500 Heart rate 92 /min Blossom Cody FACILITY SPECIALIST Work Phone: [facility] 06-09-2023 08:45-0500 Body height Tondra Mapus Other [facility] Other 06-09-2023 08:45-0500 Body height 182.88 cm MD Natalie Hernandez Work Phone: [facility] 06-09-2023 08:45-0500 Body mass index (BMI) [Ratio] 51.33 kg/m2 Tondra Mapus Other [facility] Other 06-09-2023 08:45-0500 Body weight 171.69 kg Tondra Mapus Other [facility] Other 06-09-2023 08:45-0500 Body weight 171.68 kg MD Natalie Diggs Phone: [facility] 06-09-2023 08:45-0500 Diastolic blood pressure 80 mm[Hg] Tondra Mapus Other [facility] 06-09-2023 08:45-0500 Respiratory rate 18 /min Tondra Mapus Other [facility] Other 06-09-2023 08:45-0500 SaO2% (BldA) [Mass fraction] 94 % Tondra Mapus Other [facility] Other 06-09-2023 08:45-0500 Systolic blood pressure 148 mm[Hg] Tondra Mapus Other [facility] 01-04-2023 08:45-0400 Body height Tondra Mapus Other [facility] Other 01-04-2023 08:45-0400 Body mass index (BMI) [Ratio] 51.37 kg/m2 Tondra Mapus Other [facility] Other 01-04-2023 08:45-0400 Body weight 171.82 kg Tondra Mapus Other [facility] Other 01-04-2023 08:45-0400 Diastolic blood pressure 85 mm[Hg] Tondra Mapus Other [facility] Other 01-04-2023 08:45-0400 Respiratory rate 18 /min Tondra Mapus Other [facility] Other 01-04-2023 08:45-0400 SaO2% (BldA) [Mass fraction] 98 % Tondra Mapus Other [facility] Other 01-04-2023 08:45-0400 Systolic blood pressure 150 mm[Hg] Tondra Mapus Other [facility] Other 06-25-2022 09:45-0500 Body height Tondra Mapus Other [facility] Other 06-25-2022 09:45-0500 Body mass index (BMI) [Ratio] 51.14 kg/m2 Tondra Mapus Other [facility] Other 06-25-2022 09:45-0500 Body weight 171.05 kg Tondra Mapus Other [facility] Other 06-25-2022 09:45-0500 Diastolic blood pressure 80 mm[Hg] Tondra Mapus Other [facility] Other 06-25-2022 09:45-0500 Respiratory rate 18 /min Tondra Mapus Other [facility] Other 06-25-2022 09:45-0500 SaO2% (BldA) [Mass fraction] 95 % Tondra Mapus Other [facility] Other 06-25-2022 09:45-0500 Systolic blood pressure 139 mm[Hg] Tondra Mapus Other [facility] Other 01-06-2022 09:45-0400 Body height Tondra Mapus Other [facility] Other 01-06-2022 09:45-0400 Body mass index (BMI) [Ratio] 48.28 kg/m2 Tondra Mapus Other [facility] Other 01-06-2022 09:45-0400 Body weight 161.48 kg Tondra Mapus Other [facility] Other 01-06-2022 09:45-0400 Diastolic blood pressure 71 mm[Hg] Tondra Mapus Other [facility] Other 01-06-2022 09:45-0400 Respiratory rate 20 /min Tondra Mapus Other [facility] Other 01-06-2022 09:45-0400 SaO2% (BldA) [Mass fraction] 95 % Tondra Mapus Other [facility] Other 01-06-2022 09:45-0400 Systolic blood pressure 124 mm[Hg] Tondra Mapus Other [facility] Other Clinical Notes 05-10-2020 to 06-16-2023 Blossom Cody NP - 06/16/2023 11:00 AM EST Note Date [...] Fingerstick fasting sugars ranging from 120-170's. Sees [facility] in [place], next appt September 13 with them. Taking [...] polyneuropathy associated with type 2 diabetes mellitus ([facility]/HCC) Comments: Sees [facility], last HgbA1c 8.11 May 2023 (prior 8.9 end of December). Pt asked me why we can't just take care of his Diabetes, so he doesn't have to go to [place]. I told him because his sugars are [...] neuropathy, with long-term current use of insulin (CMS/[facility]): Hx of senior living (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 (Z79.4): Hx of Acquired absence of other toe(s), unspecified side (Z89.429): Hx of Type 2 diabetes mellitus with diabetic neuropathy, with long-term current use of insulin (CMS/[facility]); Hx of Body mass index [BMI] 50.0-59.9, adult (Z68.43): See above. Discussed seeing weight loss provider or seeing someone about gastric bypass-pt declined both. 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 6. Prescriptions: [facility] [place]- syringes, pen needles, victoza sent. 06/09/23 7. 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 Feldman May, Cracked skin on feet (ICD-10 - R23.4) keep f/u with Dr. Feldman [facility] Other 08-28-2023 Evaluation note* Encounter Date Diagnosis [...] for Lispro/ozempic 0.5mg sent to [facility] in [place] 01/04/23 7. 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 Feldman today [facility] Other 05-30-2023 NotePROCEDURE: XR FOOT LT MIN [...] by: FRANCO FRANCES Date: 2022-10-06 14:13[facility]05-04-2023 Evaluation note* Encounter Date Diagnosis Assessment Notes Treatment Notes Treatment Clinical Notes September, Type 2 diabetes mellitus with hyperglycemia (ICD-10 - E11.65) [facility] Other 04-17-2023 NotePROCEDURE: XR FOOT LT MIN [...] by: FERN SOSA Date: 2022-08-24 12:46[facility]02-16-2023 Evaluation note* Encounter Date Diagnosis Assessment Notes Treatment Notes Treatment Clinical Notes Jun, Type 2 diabetes mellitus with hyperglycemia (ICD-10 - E11.65) 1. Uncontrolled, a Type 2 diabetes with A1c of 8.2% 2. Blood glucose levels above target. Discussed with pt restarting ozempic, he had s/e from higher dose ozempic 1mg and concern with cost works at [employer]. Pt agreeable to starting sample ozempic 0.5mg [...] issues. 6. Prescriptions: Syringes/ozempic/st eglatro sent to [facility] in [place] 06/25/22 7. 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) Jun, Vitamin B 12 deficiency (ICD-10 - E53.8) 12/28 vit b 12 423 at target Jun, BMI 50.0-59.9, adult (ICD-10 - Z68.43) [facility] Other 02-07-2023 NotePROCEDURE: XR ANKLE LT MIN [...] by: GISSEL RUBIO Date: 2022-06-16 16:33[facility]02-07-2023 NotePROCEDURE: XR ANKLE LT MIN 3 [...] by: GISSEL RUBIO Date: 2022-06-16 16:33[facility]08-30-2022 Evaluation note* Encounter Date Diagnosis Assessment [...] (hypertension) (ICD-10 - I10) on julissa Dec, senior living current use of insulin (ICD-10 - Z79.4) Dec, Vitamin B 12 deficiency (ICD-10 - E53.8) 12/28 vit b 12 423 at target Dec, BMI 45.0-49.9, adult (ICD-10 - Z68.42) 14 pound weight loss from last visit, continue with weight loss efforts [facility] Other 01-01-2021 History general Narrative - Reported* Type Description Date Medical History type II diabetes Medical History hypertension Medical History hyperlipidemia Medical History covid 05/2020 Surgical History Ulcer on left great toe X2 Surgical History Partial amputation Right great toe 01/2021 Surgical History All toes right foot amputated Hospitalization History Toe infection 2017 [facility] Other 01-01-2021 History general Narrative - Reported* Type Description Date Medical History type II diabetes Medical History hypertension Medical History hyperlipidemia Medical History covid 05/2020 Surgical History Ulcer on left great toe X2 Surgical History Partial amputation Right great toe 01/2021 Surgical History All toes right foot amputated Surgical History Left great toe corre ctive surgery with Dr. 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) Acquired absence of other toe(s), unspecified side (Z89.429) Type 2 diabetes mellitus with diabetic neuropathy, with long-term current use of insulin (CMS/HCC) Body mass index [BMI] 50.0-59.9, adult (Z68.43) Type 2 diabetes mellitus with foot ulcer, with long-term current use of insulin (CMS/HCC) 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.49) Status post amputation of lesser toe, unspecified laterality (CMS/HCC) Arthritis of left foot Acquired hallux valgus of left foot Type 2 diabetes mellitus with hyperglycemia, with long-term current use of insulin (CMS/HCC) Morbid obesity (CMS/[facility]) Morbid obesity documented in this encounter [facility] HealthcareEvaluation noteNo assessment information availableAult[facility] Work Phone: Evaluation note* Diagnosis Onset Date Resolution Status BMI 50.0-59.9, adult acute Dietary counseling and surveillance acute Hypertension acute Mixed hyperlipidemia acute Type 2 diabetes mellitus with hyperglycemia acute [facility] Work Phone: Summary Purpose Family History No [...] section and content) DATE CREATED AUTHOR 08/27/[address] [facility] dical Specialist DATE CREATED AUTHOR AUTHOR'S ORGANIZ ATION 10/17/2022 [facility] DATE CREATED AUTHOR AUTHOR'S ORGANIZ ATION 08/14/2023 [facility] DATE CREATED AUTHOR AUTHOR'S ORGANIZ ATION 10/30/[address] [facility] dical Specialists EPIC REASON FOR VISIT (unrecogniz ed section and content) Reason Comments Diabetes Pt saw endocrinology last week and has his hgbA1c. HgbA1c was 8.2 and his results and notes are under media from that appt on 06-09-22 Care Teams (unrecognized sec tion and content) Component Lab Tech Relationship Specialty Start Date End Date Natalie Hernandez MD [address] [place] [address] PCP - General Family Medicine 09/15/22 Component Lab Tech Relationship Specialty Start Date End Date Natalie Hernandez MD [address] [place] [address] PCP - General Family Medicine 09/15/22 Team Status: Active Member Role Status Dates Natalie Hernadnez MD Primary Care Provider Active Team Status: [...] BE BASED ON THE PRIMARY CLINICAL RECORDS. [employer] [facility]. provides no warranty or guarantee of the accuracy or completeness of information in this document.
== END 2023-11-02 11:12 | disposition home or self-care (01) ==
LOC: WC 11:12
PROVIDERS: PCP Family Medicine; Visit Provider Podiatrist Foot & Ankle Surgery
DX: M79.671 Pain in right foot (principal); E11.621 Type 2 diabetes mellitus with foot ulcer; L97.418 Non-pressure chronic ulcer of right heel and midfoot with other specified severity; L97.528 Non-pressure chronic ulcer of other part of left foot with other specified severity
CPT/HCPCS: 11043; 73630

== ENCOUNTER 2023-11-09 12:16 | Outpatient (OUT) | payer OTHER, SELFPAY | END 2023-11-09 12:17 | disposition home or self-care (01) | LOC: WC 12:16 | PROVIDERS: PCP Family Medicine; Visit Provider Podiatrist Foot & Ankle Surgery | DX: E11.621 Type 2 diabetes mellitus with foot ulcer (principal); L97.528 Non-pressure chronic ulcer of other part of left foot with other specified severity; L97.418 Non-pressure chronic ulcer of right heel and midfoot with other specified severity | CPT/HCPCS: 11043; 29445; A6199 ==

== ENCOUNTER 2023-11-17 13:44 | Outpatient (OUT) | payer OTHER, SELFPAY | END 2023-11-17 13:45 | disposition home or self-care (01) | LOC: WC 13:44 | PROVIDERS: PCP Family Medicine; Visit Provider Podiatrist Foot & Ankle Surgery | DX: E11.621 Type 2 diabetes mellitus with foot ulcer (principal); L97.418 Non-pressure chronic ulcer of right heel and midfoot with other specified severity | CPT/HCPCS: 29445 ==

== ENCOUNTER 2023-11-22 15:18 | Outpatient (OUT) | payer OTHER, SELFPAY | END 2023-11-22 15:19 | disposition home or self-care (01) | LOC: WC 15:18 | PROVIDERS: PCP Family Medicine; Visit Provider Physician Assistant | DX: E11.621 Type 2 diabetes mellitus with foot ulcer (principal); L97.528 Non-pressure chronic ulcer of other part of left foot with other specified severity; L97.418 Non-pressure chronic ulcer of right heel and midfoot with other specified severity | CPT/HCPCS: 11043; 29445 ==

== ENCOUNTER 2023-11-30 15:58 | Outpatient (OUT) | payer OTHER, SELFPAY | END 2023-11-30 15:59 | disposition home or self-care (01) | LOC: WC 15:58 | PROVIDERS: PCP Family Medicine; Visit Provider Podiatrist Foot & Ankle Surgery | DX: E11.621 Type 2 diabetes mellitus with foot ulcer (principal); L97.418 Non-pressure chronic ulcer of right heel and midfoot with other specified severity | CPT/HCPCS: 29445 ==

== ENCOUNTER 2023-12-07 15:27 | Outpatient (OUT) | payer OTHER, SELFPAY | END 2023-12-07 15:28 | disposition home or self-care (01) | LOC: WC 15:27 | PROVIDERS: PCP Family Medicine; Visit Provider Podiatrist Foot & Ankle Surgery | DX: E11.621 Type 2 diabetes mellitus with foot ulcer (principal); L97.528 Non-pressure chronic ulcer of other part of left foot with other specified severity; L97.418 Non-pressure chronic ulcer of right heel and midfoot with other specified severity | CPT/HCPCS: 11043; 29445 ==

== ENCOUNTER 2023-12-14 15:50 | Outpatient (OUT) | payer OTHER, SELFPAY | END 2023-12-14 15:51 | disposition home or self-care (01) | LOC: WC 15:50 | PROVIDERS: PCP Family Medicine; Visit Provider Physician Assistant | DX: E11.621 Type 2 diabetes mellitus with foot ulcer (principal); L97.418 Non-pressure chronic ulcer of right heel and midfoot with other specified severity; L97.528 Non-pressure chronic ulcer of other part of left foot with other specified severity | CPT/HCPCS: 29445 ==

== ENCOUNTER 2023-12-21 16:05 | Outpatient (OUT) | payer OTHER, SELFPAY ==
--- OUTSIDE RECORDS SUMMARY | 2023-12-21 16:30 | XMS_ITS | CCD ---
Author Organization [facility] Care Team Providers Care Spinning Lathe Operator Name Role Phone Link Ortega Unavailable NATANAEL [...] Care Unavailable HIGHLANDER, NATANAEL Marks Attending Unavailable TAIWO, NATANAEL Marks Admitting Unavailable WONDERLY, DR NATALIE [...] Care Unavailable HIGHLANDER, NATANAEL Marks Consulting Unavailable HIGHLCAROLYNN, NATANAEL Marks Attending Unavailable WONDERLY, DR NATALIE [...] Damon Claros Attending Provider MD Natalie Hernandez [facility] Care Provider Natalie Hernandez [facility] Care Unavailable Damon Claros Attending Unavailable Damon Claros Admitting Unavailable BLOSSOM CODY Attending Unavailable BLOSSOM CODY Attending Unavailable GLOBLOSSOM TRIPP Attending Unavailable MIRLANDE PECK Attending Unavailable LIV, MIRLANDE Zhang Attending Unavailable GLO, BLOSSOM Kong Attending Unavailable RUS, MIRLANDE Zhang Attending Unavailable RUS, MIRLANDE Zhang Attending Unavailable Medications Current Medications Medication Drug [...] SUBCUT Twice daily 90 July 26, 2023 3:32pm October 19, [...] insulin; Translations: [assisted (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] 06-17-2023 Episodic Other aftercare (4 sources) assisted (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 Onset: [...] 06-09-2023 HbA1c (Bld) [Mass fraction] 8.2 % [employer] Other Glucose - FINGER STICKon Glucose [Mass/Vol] 170 mg/dL [employer] Other HbA1c (Bld) [Mass fraction]o n 06-09-2023 A1C HEMOGLOBIN [place] [employer] Other A1C HEMOGLOBINon 01-04-2023 HbA1c (Bld) [Mass fraction] 8.9 % [facility] [employer] Other Glucose - FINGER STICKon Glucose [Mass/Vol] 201 mg/dL [employer] Other HbA1c (Bld) [Mass fraction]o n 01-04-2023 A1C HEMOGLOBIN [facility] [employer] Other PROF CHEM 8 (BAS METB)on Anion gap [Moles/Vol] 14.3 mmol/L Normal [facility] Comment on above: Performed By: #### B MP #### [facility] [address] [place] [address] Dr. Lauri Todd Calcium [Mass/Vol] 9.4 mg/dL Normal 8.5-10.1 [facility] Comment on above: Performed By: #### B MP #### [facility] [address] [place] [address] Dr. Lauri Todd Chloride [Moles/Vol] 101 mmol/L Normal 98-107 [facility] Comment on above: Performed By: #### B MP #### [facility] [address] [place] [address] Dr. Lauri Todd CO2 [Moles/Vol] 26.2 mmol/L Normal 21.0-32.0 [facility] Comment on above: Performed By: #### B MP #### [facility] [address] [place] [address] Dr. Lauri Todd Creatinine [Mass/Vol] 0.90 mg/dL Normal 0.70-1.30 [facility] Comment on above: Performed By: #### B MP #### [facility] [address] [place] [address] Dr. Lauri Todd EGFR-AF NEPALESE >60 Normal >=60 [facility] Comment on above: Performed By: #### B MP #### [facility] [address] [place] [address] Dr. Lauri Todd EGFR-NON AF NEPALESE >60 Normal >=60 [facility] Comment on above: Performed By: #### B MP #### [facility] [address] [address] [address] Lauri Todd Glucose [Mass/Vol] 146 mg/dL Critically high 74-106 [facility] Comment on above: Performed By: #### B MP #### [facility] [address] [place], [place] [address] Dr. Lauri Todd Potassium [Moles/Vol] 4.5 mmol/L Normal 3.5-5.1 [facility] Comment on above: Performed By: #### B MP #### [facility] [address] [address] [address] Lauri Todd Sodium [Moles/Vol] 137 mmol/L Normal 136-145 [facility] Comment on above: Performed By: #### B MP #### [facility] [address] [address] [address] Lauri Todd Urea nitrogen [Mass/Vol] 16.0 mg/dL Normal 7.0-18.0 [facility] Comment on above: Performed By: #### B MP #### [facility] [address] [address] [address] Lauri Todd Urea nitrogen/Creatinin e [Mass ratio] 17.8 mg/mg Normal [facility] Comment on above: Performed By: #### B MP #### [facility] [address] [address] [address] Lauri Todd A1C HEMOGLOBINon 06-25-2022 HbA1c (Bld) [Mass fraction] 8.2 % [facility] [employer] Other Glucose - FINGER STICKon Glucose [Mass/Vol] 180 mg/dL [employer] Other HbA1c (Bld) [Mass fraction]o n 06-25-2022 A1C HEMOGLOBIN [facility] [employer] Other XR FOOT LT MIN 3 VIEWSon [...] by: RAFAEL WHITAKER Date: 2022-05-25 11:52 Normal [facility] A1C HEMOGLOBINon 01-06-2022 HbA1c (Bld) [Mass fraction] 7 % [employer] Other Glucose - FINGER STICKon Glucose [Mass/Vol] 148 mg/dL [employer] Other HbA1c (Bld) [Mass fraction]o n 01-06-2022 A1C HEMOGLOBIN [facility] [employer] Other Basic Metabolic Panelon 04- Anion gap [Moles/Vol] 20 mmol/L Normal 12-20 [facility] Comment on above: Result Comment: Effe ctive 05/15/2019 reference range changed. Performed By: #### B MP #### [facility] [address], [place] [id number] Calcium [Mass/Vol] 10.0 mg/dL Normal 8.6-10.2 [facility] Comment on above: Performed By: #### B MP #### [facility] [address], [place] [id number] Chloride [Moles/Vol] 100 mmol/L Normal 98-107 [facility] Comment on above: Performed By: #### B MP #### [facility] [address], [place] [id number] CO2 [Moles/Vol] 22 mmol/L Normal 20-31 [facility] Comment on above: Performed By: #### B MP #### [facility] [address], [place] [id number] Creatinine [Mass/Vol] 0.8 mg/dL Normal 0.7-1.4 [facility] Comment on above: Performed By: #### B MP #### [facility] [address], [place] [id number] eGFRAA 129 mL/min/1.73m2 Normal >60 [facility] Comment on above: Performed By: #### B MP #### [facility] [address], [place] [id number] eGFRNAA 107 mL/min/1.73m2 Normal >60 [facility] Comment on above: Performed By: #### B MP #### [facility] [address], [place] [id number] Glucose [Mass/Vol] 140 mg/dL High 65-99 [facility] Specialist Comment on above: Result Comment: For FASTING Glucose --- ADA reference ranges: Normal 65-99 mg/dl Prediabetes 100-125 Diabetes >/= 126 Performed By: #### B MP #### [facility] [address], [place] [id number] Potassium [Moles/Vol] 4.3 mmol/L Normal 3.5-5.5 [facility] Comment on above: Performed By: #### B MP #### [facility] [address], [place] [id number] Sodium [Moles/Vol] 137 mmol/L Normal 135-146 [facility] Comment on above: Performed By: #### B MP #### [facility] [address], [place] [id number] Urea nitrogen [Mass/Vol] 17 mg/dL Normal 7-25 [facility] Comment on above: Performed By: #### B MP #### [facility] [address], [place] [id number] Vital Signs Date Time Vital Sign Value Performing Clinician Facility 10-19-2023 11:31-0400 Body height 182.88 cm [facility] 10-19-2023 11:31-0400 Body mass index (BMI) [Ratio] 51.7 kg/m2 [facility] 10-19-2023 11:31-0400 Body weight 172.87 kg [facility] 10-19-2023 11:31-0400 Diastolic blood pressure 83 mm[Hg] [facility] 10-19-2023 11:31-0400 Heart rate 74 /min [facility] 10-19-2023 11:31-0400 Respiratory rate 18 /min [facility] 10-19-2023 11:31-0400 SaO2% (BldA) [Mass fraction] 97 % [facility] 10-19-2023 11:31-0400 Systolic blood pressure 149 mm[Hg] [facility] 06-16-2023 11:33-0500 Diastolic blood pressure 84 mm[Hg] Blossom Cody CHEMICAL PROCESS OPERATOR Work Phone: [facility] 06-16-2023 11:33-0500 Systolic blood pressure 154 mm[Hg] Blossom Mejiael CHEMICAL PROCESS OPERATOR Work Phone: [facility] 06-16-2023 11:02-0500 Body mass index (BMI) [Ratio] 52.12 kg/m2 Blossom Mejiael CHEMICAL PROCESS OPERATOR Work Phone: [facility] 06-16-2023 11:02-0500 Body weight 171.91 kg Blossom Glo CHEMICAL PROCESS OPERATOR Work Phone: [facility] 06-16-2023 11:02-0500 Heart rate 92 /min Blossom Mejiael CHEMICAL PROCESS OPERATOR Work Phone: [facility] 06-09-2023 08:45-0500 Body height Tona Mapus Other [facility] [employer] [facility] [employer] Other 06-09-2023 08:45-0500 Body height 182.88 cm MD Natalie Hernandez Work Phone: [facility] 06-09-2023 08:45-0500 Body mass index (BMI) [Ratio] 51.33 kg/m2 Tondra Mapus Other [facility] Other 06-09-2023 08:45-0500 Body weight 171.69 kg Tondra Mapus Other [employer] Other 06-09-2023 08:45-0500 Body weight 171.68 kg MD Estrada Shelby Work Phone: [facility] 06-09-2023 08:45-0500 Diastolic blood pressure 80 mm[Hg] Tondra Mapus Other [facility] 06-09-2023 08:45-0500 Respiratory rate 18 /min Tondra Mapus Other [employer] Other 06-09-2023 08:45-0500 SaO2% (BldA) [Mass fraction] 94 % Tondra Mapus Other [employer] Other 06-09-2023 08:45-0500 Systolic blood pressure 148 mm[Hg] Tondra Mapus Other [facility] 01-04-2023 08:45-0400 Body height Tondra Mapus Other [employer] Other 01-04-2023 08:45-0400 Body mass index (BMI) [Ratio] 51.37 kg/m2 Tondra Mapus Other [employer] Other 01-04-2023 08:45-0400 Body weight 171.82 kg Tondra Mapus Other [employer] Other 01-04-2023 08:45-0400 Diastolic blood pressure 85 mm[Hg] Tondra Mapus Other [employer] Other 01-04-2023 08:45-0400 Respiratory rate 18 /min Tondra Mapus Other [employer] Other 01-04-2023 08:45-0400 SaO2% (BldA) [Mass fraction] 98 % Tondra Mapus Other [employer] Other 01-04-2023 08:45-0400 Systolic blood pressure 150 mm[Hg] Tondra Mapus Other [employer] Other 06-25-2022 09:45-0500 Body height Tondra Mapus Other [employer] Other 06-25-2022 09:45-0500 Body mass index (BMI) [Ratio] 51.14 kg/m2 Tondra Mapus Other [employer] Other 06-25-2022 09:45-0500 Body weight 171.05 kg Tondra Mapus Other [employer] Other 06-25-2022 09:45-0500 Diastolic blood pressure 80 mm[Hg] Tondra Mapus Other [employer] Other 06-25-2022 09:45-0500 Respiratory rate 18 /min Tondra Mapus Other [employer] Other 06-25-2022 09:45-0500 SaO2% (BldA) [Mass fraction] 95 % Tondra Mapus Other [employer] Other 06-25-2022 09:45-0500 Systolic blood pressure 139 mm[Hg] Tondra Mapus Other [employer] Other 01-06-2022 09:45-0400 Body height Tondra Mapus Other [employer] Other 01-06-2022 09:45-0400 Body mass index (BMI) [Ratio] 48.28 kg/m2 Tondra Mapus Other [employer] Other 01-06-2022 09:45-0400 Body weight 161.48 kg Tondra Mapus Other [employer] Other 01-06-2022 09:45-0400 Diastolic blood pressure 71 mm[Hg] Tondra Mapus Other [employer] Other 01-06-2022 09:45-0400 Respiratory rate 20 /min Tondra Mapus Other [employer] Other 01-06-2022 09:45-0400 SaO2% (BldA) [Mass fraction] 95 % Tondra Mapus Other [employer] Other 01-06-2022 09:45-0400 Systolic blood pressure 124 mm[Hg] Tondra Mapus Other [employer] Other Encounters Encounter Date Encounter Type Care Provider Facility Start: 10-29-2023 End: 10-29-2023 ambulatory MIRLANDE PECK Not Available Start: 10-19-2023 End: 10-19-2023 ambulatory [facility] Work Phone: Start: 10-19-2023 End: 10-19-2023 Patient encounter procedure [facility] Work Phone: Start: 10-12-2023 End: 10-12-2023 ambulatory MIRLANDE PECK Not Available Start: 09-15-2023 End: 09-15-2023 ambulatory BLOSSOM CODY Not Available Start: 09-06-2023 End: 09-06-2023 ambulatory MIRLANDE PECK Not Available Start: 08-02-2023 End: 08-02-2023 ambulatory MIRLANDE PECK Not Available Start: 07-07-2023 End: 07-07-2023 ambulatory BLOSSOM CODY Not Available Start: 06-16-2023 Bamboo flowsheet Blossom cabrales CHEMICAL PROCESS OPERATOR Work Phone: [facility] Start: 06-16-2023 Bamboo flowsheet Blossom cabrales CHEMICAL PROCESS OPERATOR Work Phone: [facility] Start: 06-16-2023 End: 06-16-2023 Office outpatient visit 25 minutes Blossom Cody CHEMICAL PROCESS OPERATOR Work Phone: [facility] Comment on [...] neuropathy, with long-term current use of insulin (CMS/[facility]); assisted (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 (Z79.4); Acquired absence of other toe(s), unspecified side (Z89.429); Type 2 diabetes mellitus with diabetic neuropathy, with long-term current use of insulin ([facility]); Body mass index [BMI] 50.0-59.9, adult (Z68.43); Type 2 diabetes mellitus with foot ulcer, with long-term current use of insulin (CMS/HCC); 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.49); Status post amputation of lesser toe, unspecified laterality (CMS/HCC); Arthritis of left foot; Acquired hallux valgus of left foot; Type 2 diabetes mellitus with hyperglycemia, with long-term current use of insulin ([facility]); Morbid obesity ([facility]) Start: 06-16-2023 End: 06-16-2023 ambulatory BLOSSOM MEJIAEL Not Available Start: 06-15-2023 End: 06-15-2023 ambulatory Tondra Mapus Other [employer] Other Start: 06-15-2023 Telephone encounter Tondra Dayannaus [facility] Start: 06-09-2023 (DM) Diabetes Tondra Mapus [facility] Start: 06-09-2023 End: 06-10-2023 ambulatory MD Natalie Hernandez Work Phone: [employer] Other Start: 06-09-2023 End: 06-09-2023 Discharged Recurring MD Natalie Hernandez [facility] Work Phone: Start: 06-09-2023 End: 06-09-2023 Patient encounter procedure MD Natalie Hernandez Work Phone: [facility]- Start: 03-24-2023 End: 03-24-2023 ambulatory BLOSSOM CODY Not Available Start: 01-04-2023 (DM) Diabetes Tondra Shannon [facility] Start: 01-04-2023 End: 01-04-2023 ambulatory Tondra Mapus Other [employer] Other Start: 12-21-2022 End: 12-21-2022 ambulatory Tondra Mapus Other [employer] Other Start: 12-21-2022 Telephone encounter Tondra [facility] Start: 10-12-2022 ambulatory NATANAEL FELDMAN Faci lity:H1 Start: 10-06-2022 End: 10-07-2022 ambulatory NATANAEL FELDMAN Facility:H1 Start: 05-25-2023 Encounter for preprocedural cardiovascular examination NATANAEL Marks [facility] Start: 10-01-2022 Encounter for preprocedural laboratory examination NATANAEL Marks [facility] Start: 09-30-2022 End: 10-01-2022 ambulatory NATANAEL Marks [facility] Facility:H1 Start: 09-30-2022 End: 10-01-2022 Encounter for preprocedural laboratory examination NATANAEL Marks [facility] Facility:H1 Start: 09-15-2022 End: 09-16-2022 ambulatory NATANAEL Marks [facility] Facility:H1 Start: 09-10-2022 End: 09-10-2022 ambulatory Tondra Mapus Other [employer] Other Start: 09-10-2022 Telephone encounter Tondra Mapus [facility] Start: 08-24-2022 End: 08-25-2022 ambulatory NATANAEL Marks [facility] Facility:H1 Start: 08-10-2022 End: 08-10-2022 ambulatory Tondra Mapus Other [employer] Other Start: 08-10-2022 Telephone encounter Tondra Mapus [facility] Start: 08-03-2022 End: 08-04-[address] NATALIE HERNANDEZ Facility:H1 Start: 07-13-2022 End: 07-14-2022 ambulatory MARTELLMIGNON NAVAS Facility:H1 Start: 06-30-2022 End: 07-01-2022 ambulatory NATANAEL Marks [facility] Facility:H1 Start: 06-25-2022 (DM) Diabetes Tondra Dayannaus [facility] Start: 06-25-2022 End: 06-25-2022 ambulatory Tondra Mapus Other [employer] Other Start: 06-16-2022 End: 06-17-2022 ambulatory NATANAEL Marks [facility] Facility:H1 Start: 06-08-2022 End: 06-09-2022 ambulatory NATANAEL Marks [facility] Facility:H1 Start: 05-25-2022 End: 05-26-2022 ambulatory NATANAEL Marks [facility] Facility:H1 Start: 05-12-2022 End: 05-13-2022 ambulatory PETER [...] HIGHLANDER Facility:H1 Start: 03-09-2022 End: 03-10-2022 ambulatory NATANAEL D HIGHLANDER Facility:H1 Start: 03-03-2022 End: 03-04-2022 ambulatory NATANAEL D HIGHLANDER Facility:H1 Start: 02-18-2022 End: 02-18-2022 ambulatory Tondra Mapus Other [employer] Other Start: 02-18-2022 Telephone encounter Tondra Shannon [facility] Start: 02-09-2022 End: 02-10-2022 ambulatory NATANAEL Marks HIGHLANDER Facility:H1 Start: 01-26-2022 End: 01-27-2022 ambulatory NATANAEL Marks HIGHLANDER Facility:H1 Start: 01-13-2022 End: 01-14-2022 ambulatory NATANAEL FELDMAN Facility:H1 Start: 01-06-2022 (DM) Diabetes Tondra Shannon [facility] Start: 01-06-2022 End: 01-06-2022 ambulatory Tondra Mapus Other [employer] Other Start: 12-29-2021 End: 12-30-2021 ambulatory NATANAEL D HIGHLANDER Facility:H1 Start: 12-22-2021 End: 12-23-2021 ambulatory NATANAEL D HIGHLANDER Facility:H1 Start: 12-15-2021 End: 12-16-2021 [...] HIGHLANDER Facility:H1 Start: 10-23-2021 End: 10-24-2021 ambulatory PETER D HIGHLANDER Facility:H1 Start: 10-21-2021 End: 10-22-2021 ambulatory NATANAEL D HIGHLANDER Facility:H1 Start: 10-20-2021 End: 10-21-2021 ambulatory PETER D HIGHLANDER Facility:H1 Procedures Date Procedure Procedure Detail Performing Clinician Amputation of toe Tondra Map us Other History of amputatio n of lesser toe Status post amputation of lesser toe, unspecified laterality ([facility]) Blossom Cody CHEMICAL PROCESS OPERATOR Work Phone: Plan of Treatment Date Care Activity Detail Author Start: 03-24-2024 Urine screening for protein Diabetes: Urine Protein Screening [facility] Start: 09-15-2023 End: 09-15-2023 Patient encounter procedure 09/15/2023 9:30 AM EDT Office Visit [facility] [address] [place] [address] Blossom Cody NP [address] [facility] [place] [address] [facility] Start: 09-07-2023 Hemoglobin A1c measurement Diabetes: Hemoglobin A1C [facility] Start: 07-26-2023 Glaucoma screening Diabetes: Retinopathy Screening [facility] Start: 07-07-2023 End: 07-07-2023 Patient encounter procedure 07/07/2023 9:00 AM EST Office Visit [facility] [address] [facility] [place] [address] [facility] Start: 06-16-2023 End: 06-16-2023 Patient encounter procedure 06/16/2023 11:00 AM EST Office Visit [facility] [address] [facility] [place] [address] Blossom Cody NP [address] [place] [address] Diabetic polyneuropathy associated with type 2 diabetes mellitus (CMS/HCC) (Primary Dx); Diabetic neuropathic arthropathy (CMS/HCC); 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); 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, sequela (CMS/HCC); Ulcer of foot due to type 2 diabetes mellitus (CMS/HCC); Poorly controlled diabetes mellitus (CMS/HCC); Type 2 diabetes mellitus with hyperglycemia, with long-term current use of insulin ([facility]/HCC); Vitamin B 12 deficiency; Hx of diabetic neuropathy; 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CMS/HCC); Morbid obesity (CMS/HCC); Hypertriglyceridemia (CMS/HCC) [facility] Comment on above: Diabetic polyneuropathy [...] Hx of diabetic neuropathy; 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[facility]/HCC); Morbid obesity ([facility]/HCC); Hypertriglyceridemia ([facility]) Comprehensive metabo lic 2000 panel - Serum or Plasma [facility] Patient Education Diabetes and diet [facility] Work Phone: [facility] Immunizations Immunization Date Immunization Notes Care Provider Fa dulce mariaty 03-24-2023 influenza, injectabl e, quadrivalent, preservative free Blossomdidier Cody CHEMICAL PROCESS OPERATOR Work Phone: [facility] 08-26-2021 tetanus and diphther ia toxoids, adsorbed, preservative free, for adult use (5 Lf of tetanus toxoid and 2 Lf of diphtheria toxoid) Blossom Cody CHEMICAL PROCESS OPERATOR Work Phone: [facility] 03-28-2021 influenza, injectabl e, quadrivalent, preservative free Blossom Glo CHEMICAL PROCESS OPERATOR Work Phone: [facility] 02-13-2020 Influenza, injectabl e, Madin Chidester Canine Kidney, preservative free, quadrivalent Blossom Glo CHEMICAL PROCESS OPERATOR Work Phone: [facility] 02-22-2019 influenza, injectabl e, quadrivalent, preservative free Blossom Glo CHEMICAL PROCESS OPERATOR Work Phone: [facility] 02-07-2018 influenza, injectabl e, quadrivalent, preservative free Blossom Glo CHEMICAL PROCESS OPERATOR Work Phone: [facility] Payers Date Payer Category Payer Unknown [employer] [id number] 2022-Present [address] [address] [place] [address] [id number] 2020 Self-pay [id number] 1979 Unknown [id number] 2.16.840.1.159230.3.579.2.59 3 1979 Unknown [id number] 2.16.840.1.795020.3.579.2.59 3 1979 Unknown [id number] 2.16.840.1.235253.3.579.2.59 3 1979 Unknown [id number] 2.16.840.1.652124.3.579.2.59 3 1979 Unknown [id number] 2.16.840.1.659637.3.579.2.59 3 1979 Unknown [id number] 2.16.840.1.696895.3.579.2.59 3 1979 Unknown [id number] 2.16.840.1.563210.3.579.2.59 3 1979 Unknown [id number] 2.16.840.1.534096.3.579.2.59 3 1979 Unknown [id number] 2.16.840.1.670276.3.579.2.59 3 1979 Unknown [id number] 2.16.840.1.144632.3.579.2.59 3 1979 Unknown [id number] 2.16.840.1.845689.3.579.2.59 3 1979 Unknown [id number] 2.16.840.1.768761.3.579.2.59 3 1979 Unknown [id number] 2.16.840.1.018400.3.579.2.59 3 1979 Unknown [id number] 2.16.840.1.827703.3.579.2.59 3 1979 Unknown [id number] 2.16.840.1.882568.3.579.2.59 3 1979 Unknown [id number] 2.16.840.1.930116.3.579.2.59 3 1979 Unknown [id number] 2.16.840.1.081154.3.579.2.59 3 1979 Unknown [id number] 2.16.840.1.758811.3.579.2.59 3 1979 Unknown [id number] 2.16.840.1.926396.3.579.2.59 3 1979 Unknown [id number] 2.16.840.1.277730.3.579.2.59 3 1979 Unknown [id number] 2.16.840.1.146431.3.579.2.59 3 1979 Unknown [id number] 2.16.840.1.336068.3.579.2.59 3 1979 Unknown [id number] 2.16.840.1.639145.3.579.2.59 3 1979 Unknown [id number] 2.16.840.1.252563.3.579.2.59 3 1979 Unknown [id number] 2.16.840.1.922700.3.579.2.59 3 1979 Unknown [id number] 2.16.840.1.934129.3.579.2.59 3 1979 Unknown [id number] 2.16.840.1.792797.3.579.2.59 3 1979 Unknown [id number] 2.16.840.1.642267.3.579.2.59 3 1979 Unknown [id number] 2.16.840.1.561891.3.579.2.59 3 1979 Unknown [id number] 2.16.840.1.034798.3.579.2.59 3 1979 Unknown [id number] 2.16.840.1.302086.3.579.2.59 3 1979 Unknown [id number] 2.16.840.1.158905.3.579.2.59 3 1979 Unknown [id number] 2.16.840.1.767547.3.579.2.59 3 1979 Unknown [id number] 2.16.840.1.857714.3.579.2.59 3 1979 Unknown [id number] 2.16.840.1.667064.3.579.2.59 3 1979 Unknown [id number] 2.16.840.1.194689.3.579.2.59 3 1979 Unknown [id number] 2.16.840.1.160629.3.579.2.59 3 1979 Unknown [id number] 2.16.840.1.073992.3.579.2.59 3 1979 Unknown [id number] 2.16.840.1.287882.3.579.2.59 3 1979 Unknown [id number] 2.16.840.1.264185.3.579.2.59 3 1979 Unknown [id number] 2.16.840.1.263185.3.579.2.59 3 1979 Unknown [id number] 2.16.840.1.264951.3.579.2.12 59 1979 Unknown [id number] 2.16.840.1.768982.3.579.2.12 59 1979 Unknown [id number] 2.16.840.1.819596.3.579.2.12 59 1979 Unknown [id number] 2.16.840.1.578146.3.579.2.12 59 1979 Unknown [id number] 2.16.840.1.150420.3.579.2.12 59 1979 Unknown [id number] 2.16.840.1.950445.3.579.2.12 59 1979 Unknown [id number] 2.16.840.1.492398.3.579.2.12 59 1979 Unknown [id number] 2.16.840.1.566890.3.579.2.12 59 1959 Unknown [id number] 2.16.840.1.998807.19 1959 Unknown [id number] Unknown [id number] Social History Date Type Detail Facility Unknown if ever smoked [facility] Other Start: 03-23-2023 End: 06-17-2023 Sex Assigned At [facility] Start: 12-21-2022 Tobacco smoking status [facility] Never smoked tobacco [facility] Start: 12-21-2022 Tobacco use and exposure Smokeless tobacco non-user [facility] Start: 05-18-2023 End: 06-17-2023 Alcohol intake Current drinker of alcohol (finding) [facility] Start: 03-23-2023 End: 05-18-2023 Alcohol intake [facility] Within the last year , have [...] Start: 1980 Sex Assigned At Male F [facility] Start: 10-19-2023 Tobacco smoking status [facility] Ex-smoker (finding) [facility] Medical Equipment Procedure Code Equipment [...] Clinical Notes 05-10-2020 to 06-16-2023 Blossom Cody, CHEMICAL PROCESS OPERATOR - 06/16/2023 11:00 AM EST Note Date [...] sugars ranging from 120-170's. Sees Joshua in [place], next appt September 13 with them. Taking [...] polyneuropathy associated with type 2 diabetes mellitus ([facility]/HCC) Comments: Seepatrice Lewis, last HgbA1c 8.11 May 2023 (prior 8.9 end of December). Pt asked me why we can't just take care of his Diabetes, so he doesn't have to go to [place]. I told him because his sugars are [...] DM care again. PVU Diabetic neuropathic arthropathy (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 Now has left foot toe amputated. Per pt toe is healing Ulcer of foot due to type 2 diabetes mellitus (CMS/HCC): Hx of Poorly controlled diabetes mellitus (CMS/HCC): Last HgbA1c 8.2 Type 2 diabetes mellitus with hyperglycemia, with long-term current use of insulin ([facility]/HCC): As above Vitamin B 12 deficiency Comments: [...] neuropathy, with long-term current use of insulin (CMS/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): Hx of Morbid obesity: See above documented in this encounter [facility] 06-15-2023 Evaluation note Encounter Date Diagnosis Assessment Notes Jun, Type 2 diabetes mellitus with hyperglycemia (ICD-10 - E11.65) [facility] Other 01-31-2024 Evaluation note* Encounter Date Diagnosis [...] or diabetes medication issues. 6. Prescriptions: [facility] Mortont- syringes, pen needles, victoza sent. 06/09/23 7. [...] f/u with pcp for further recommendation May, assisted current use of insulin (ICD-10 - Z79.4) May, Vitamin B 12 deficiency (ICD-10 - E53.8) 04/01 vit b 12 351 at target May, BMI 50.0-59.9, adult (ICD-10 - Z68.43) see above May, Amputation toe (ICD-10 - Z89.429) Keep f/u with Dr. Feldman May, Cracked skin on feet (ICD-10 - R23.4) keep f/u with Dr. Feldman [facility] Other 08-28-2023 Evaluation note* Encounter Date Diagnosis [...] for Lispro/ozempic 0.5mg sent to [facility] in [place] 01/04/23 7. Prescriptions will not be filled [...] (hypertension) (ICD-10 - I10) on julissa Dec, assisted current use of insulin (ICD-10 - Z79.4) Dec, Vitamin B 12 deficiency (ICD-10 - E53.8) 12/30 vit b 12 335 at target Dec, BMI 50.0-59.9, adult (ICD-10 - Z68.43) see above Dec, Wound of foot (ICD-10 - S91.309A) pt has apt scheduled with Dr. Feldman today [facility] Other 05-30-2023 NotePROCEDURE: XR FOOT LT MIN [...] Electronically authenticated by: FRANCO FRANCES Date: 2022-10-06 14:13[facility]05-04-2023 Evaluation note* Encounter Date Diagnosis Assessment Notes Treatment Notes Treatment Clinical Notes September, Type 2 diabetes mellitus with hyperglycemia (ICD-10 - E11.65) [facility] Other 04-17-2023 NotePROCEDURE: XR FOOT LT MIN [...] Electronically authenticated by: FERN SOSA Date: 2022-08-24 12:46[facility]02-16-2023 Evaluation note* Encounter Date Diagnosis Assessment Notes Treatment Notes Treatment Clinical Notes Jun, Type 2 diabetes mellitus with hyperglycemia (ICD-10 - E11.65) 1. Uncontrolled, a Type 2 diabetes with A1c of 8.2% 2. Blood glucose levels above target. Discussed with pt restarting ozempic, he had s/e from higher dose ozempic 1mg and concern with cost works at [employer]. Pt agreeable to starting sample ozempic 0.5mg dose- he was given sample and administered first dose 0.25mg; reviewed with pt dosing 0.25mg once weekly x4 weeks then 0.5mg once weekly. Reviewed with pt how to titrate basal/bolus insulin according to fasting am/ac supper/ meal to meal glucose pattern. Pt verebalizes understandng. Note: Cost is prohibitive for pt to take jardiance. Carolineatrchristina is tier 2 on formulary. Reviewed with [...] issues. 6. Prescriptions: Syringes/ozempic/st eglatro sent to [facility] in [place] 06/25/22 7. 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 (ICD-10 - Z79.4) Jun, Vitamin B 12 deficiency (ICD-10 - E53.8) 12/28 vit b 12 423 at target Jun, BMI 50.0-59.9, adult (ICD-10 - Z68.43) [facility] Other 02-07-2023 NotePROCEDURE: XR ANKLE LT MIN [...] Electronically authenticated by: GISSEL RUBIO Date: 2022-06-16 16:33[facility]02-07-2023 NotePROCEDURE: XR ANKLE LT [...] Electronically authenticated by: GISSEL RUBIO Date: 2022-06-16 16:33[facility]08-30-2022 Evaluation note* Encounter Date [...] (hypertension) (ICD-10 - I10) on julissa Dec, assisted current use of insulin (ICD-10 - Z79.4) Dec, Vitamin B 12 deficiency (ICD-10 - E53.8) 12/28 vit b 12 423 at target Dec, BMI 45.0-49.9, adult (ICD-10 - Z68.42) 14 pound weight loss from last visit, continue with weight loss efforts [facility] Other 01-01-2021 History general Narrative - Reported* Type Description Date Medical History type II diabetes Medical History hypertension Medical History hyperlipidemia Medical History covid 05/2020 Surgical History Ulcer on left great toe X2 Surgical History Partial amputation Right great toe 01/2021 Surgical History All toes right foot amputated Hospitalization History Toe infection 2017 [facility] Other 01-01-2021 History general Narrative - Reported* Type Description Date Medical History type II diabetes Medical History hypertension Medical History hyperlipidemia Medical History covid 05/2020 Surgical History Ulcer on left great toe X2 Surgical History Partial amputation Right great toe 01/2021 Surgical History All toes right foot amputated Surgical History Left great toe corre ctive surgery with Dr. Feldman in [place] 10/2022 Hospitalization History Toe infection 2017 [facility] Other Chief complaint+Reason for visit Narrative* Chief Complaint no meter Reason for Visit BMI 50.0-59.9, adult Dietary counseling and surveillance Hypertension Mixed hyperlipidemia Type 2 diabetes mellitus with hyperglycemia [facility] Work Phone: Evaluation noteNo InformationNort [employer] Other Evaluation note* Diagnosis Diabetic polyneuropathy associated with type 2 diabetes mellitus (CMS/HCC)- Primary Diabetic neuropathic arthropathy (CMS/HCC) Type II or unspecified type diabetes mellitus with neurological manifestations, not stated as uncontrolled 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) 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) Body mass index [BMI] 50.0-59.9, adult (Z68.43) Type 2 diabetes mellitus with foot ulcer, with long-term current use of insulin ([facility]/HCC) 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.49) Status post amputation of lesser toe, unspecified laterality (CMS/[facility]) Arthritis of left foot Acquired hallux valgus of left foot Type 2 diabetes mellitus with hyperglycemia, with long-term current use of insulin (CMS/[facility]) Morbid obesity ([facility]) Morbid obesity documented in this encounter [facility] HealthcareEvaluation noteNo assessment information availableTrihealth [facility] Work Phone: Evaluation note* Diagnosis Onset Date Resolution Status BMI 50.0-59.9, adult acute Dietary counseling and surveillance acute Hypertension acute Mixed hyperlipidemia acute Type 2 diabetes mellitus with hyperglycemia acute [facility] Work Phone: Summary Purpose Family History No [...] section and content) DATE CREATED AUTHOR 08/27/2021 [facility] DATE CREATED AUTHOR AUTHOR'S ORGANIZ ATION 10/17/2022 [facility] DATE CREATED AUTHOR AUTHOR'S ORGANIZ ATION 08/14/2023 [facility] DATE CREATED AUTHOR AUTHOR'S ORGANIZ ATION 10/30/2023 [facility] d[facility] Specialists EPIC REASON FOR VISIT (unrecogniz ed section and content) Reason Comments Diabetes Pt saw endocrinology last week and has his hgbA1c. 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 [facility] provides no warranty or guarantee of the accuracy or completeness of information in this document.
== END 2023-12-21 16:06 | disposition home or self-care (01) ==
LOC: WC 16:05
PROVIDERS: PCP Family Medicine; Visit Provider Physician Assistant
DX: E11.621 Type 2 diabetes mellitus with foot ulcer (principal); L97.418 Non-pressure chronic ulcer of right heel and midfoot with other specified severity; L97.528 Non-pressure chronic ulcer of other part of left foot with other specified severity
CPT/HCPCS: 11043; 29445

== ENCOUNTER 2023-12-27 15:49 | Outpatient (OUT) | payer OTHER, SELFPAY ==
--- OUTSIDE RECORDS SUMMARY | 2023-12-27 16:11 | XMS_ITS | CCD ---
Author Organization [facility] [place] [facility] Care Team Providers Care Production Ski Repairer Name Role Phone Link Ortega Unavailable NATANAEL [...] Care Provider MD Damon Claros Attending Provider [phone] MD Natalie Hernandez [facility] Care Provider Natalie Hernandez [facility] Care Unavailable Damon Claros Attending Unavailable Damon [...] sources) Long-term current use of insulin; Translations: [retirement (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] 06-17-2023 Episodic Other aftercare (4 sources) retirement (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 Onset: 01-06-2022 Resolved: [...] 06-09-2023 HbA1c (Bld) [Mass fraction] 8.2 % [employer] Other Glucose - FINGER STICKon Glucose [Mass/Vol] 170 mg/dL [employer] Other HbA1c (Bld) [Mass fraction]o n 06-09-2023 A1C HEMOGLOBIN [employer] Other A1C HEMOGLOBINon 01-04-2023 HbA1c (Bld) [Mass fraction] 8.9 % [facility] [employer] Other Glucose - FINGER STICKon Glucose [Mass/Vol] 201 mg/dL [employer] Other HbA1c (Bld) [Mass fraction]o n 01-04-2023 A1C HEMOGLOBIN [facility] [employer] Other PROF CHEM 8 (BAS METB)on Anion gap [Moles/Vol] 14.3 mmol/L Normal [facility] Comment on above: Performed By: #### B MP #### [facility] [address] [place] [address] Dr. Lauri Todd Calcium [Mass/Vol] 9.4 mg/dL Normal 8.5-10.1 [facility] Comment on above: Performed By: #### B MP #### [facility] [address] [place] [address] Dr. Lauri Todd Chloride [Moles/Vol] 101 mmol/L Normal 98-107 [facility] Comment on above: Performed By: #### B MP #### [facility] [address] [place] [address] Dr. Lauri Todd CO2 [Moles/Vol] 26.2 mmol/L Normal 21.0-32.0 [facility] Comment on above: Performed By: #### B MP #### [facility] [address] [place] [address] Dr. Lauri Todd Creatinine [Mass/Vol] 0.90 mg/dL Normal 0.70-1.30 [facility] Comment on above: Performed By: #### B MP #### [facility] [address] [place] [address] Dr. Lauri Todd EGFR-AF BURUNDIAN >60 Normal >=60 [facility] Comment on above: Performed By: #### B MP #### [facility] [address] [place] [address] Dr. Lauri Todd EGFR-NON AF BURUNDIAN >60 Normal >=60 [facility] Comment on above: Performed By: #### B MP #### [facility] [address] [address] [address] Lauri Todd Glucose [Mass/Vol] 146 mg/dL Critically high 74-106 [facility] Comment on above: Performed By: #### B MP #### [facility] [address] [place], [place] [address] Dr. Lauri Todd Potassium [Moles/Vol] 4.5 mmol/L Normal 3.5-5.1 [facility] Comment on above: Performed By: #### B MP #### [facility] [address] [address] [address] Lauri Todd Sodium [Moles/Vol] 137 mmol/L Normal 136-145 [facility] Comment on above: Performed By: #### B MP #### [facility] [address] [address] [address] Lauri Todd Urea nitrogen [Mass/Vol] 16.0 mg/dL Normal 7.0-18.0 [facility] Comment on above: Performed By: #### B MP #### [facility] [address] [address] [address] Lauri Todd Urea nitrogen/Creatinin e [Mass ratio] 17.8 mg/mg Normal [facility] Comment on above: Performed By: #### B MP #### [facility] [address] [address] [address] Luari Todd A1C HEMOGLOBINon 06-25-2022 HbA1c (Bld) [Mass fraction] 8.2 % [facility] [employer] Other Glucose - FINGER STICKon Glucose [Mass/Vol] 180 mg/dL [employer] Other HbA1c (Bld) [Mass fraction]o n 06-25-2022 A1C HEMOGLOBIN [facility] [employer] Other XR FOOT LT MIN 3 VIEWSon [...] by: RAFAEL WHITAKER Date: 2022-05-25 11:52 Normal [facility] A1C HEMOGLOBINon 01-06-2022 HbA1c (Bld) [Mass fraction] 7 % [employer] Other Glucose - FINGER ST[employer]on Glucose [Mass/Vol] 148 mg/dL [employer] Other HbA1c (Bld) [Mass fraction]o n 01-06-2022 A1C HEMOGLOBIN [facility] [employer] Other Basic Metabolic Panelon 04- Anion gap [Moles/Vol] 20 mmol/L Normal 12-20 [facility] Comment on above: Result Comment: Effe ctive 05/15/2019 reference range changed. Performed By: #### B MP #### [facility] [address] [place], [place] [id number] Calcium [Mass/Vol] 10.0 mg/dL Normal 8.6-10.2 [facility] Comment on above: Performed By: #### B MP #### [facility] [address] [place], [place] [id number] Chloride [Moles/Vol] 100 mmol/L Normal 98-107 [facility] Comment on above: Performed By: #### B MP #### [facility] [address] [place], [place] [id number] CO2 [Moles/Vol] 22 mmol/L Normal 20-31 [facility] Comment on above: Performed By: #### B MP #### [facility] [address] [place], [place] [id number] Creatinine [Mass/Vol] 0.8 mg/dL Normal 0.7-1.4 [facility] Comment on above: Performed By: #### B MP #### [facility] [address] [place], [place] [id number] eGFRAA 129 mL/min/1.73m2 Normal >60 [facility] Comment on above: Performed By: #### B MP #### [facility] [address] [place], [place] [id number] eGFRNAA 107 mL/min/1.73m2 Normal >60 [facility] Comment on above: Performed By: #### B MP #### [facility] [address] [place], [place] [id number] Glucose [Mass/Vol] 140 mg/dL High 65-99 [facility] Comment on above: Result Comment: For FASTING Glucose --- ADA reference ranges: Normal 65-99 mg/dl Prediabetes 100-125 Diabetes >/= 126 Performed By: #### B MP #### [facility] [address] [place], [place] [id number] Potassium [Moles/Vol] 4.3 mmol/L Normal 3.5-5.5 [facility] Comment on above: Performed By: #### B MP #### [facility] [address] [place], [place] [id number] Sodium [Moles/Vol] 137 mmol/L Normal 135-146 [facility] Associate Professor Of Music Comment on above: Performed By: #### B MP #### [facility] [address] [place], [place] [id number] Urea nitrogen [Mass/Vol] 17 mg/dL Normal 7-25 [facility] Associate Professor [employer] Comment on above: Performed By: #### B MP #### [facility] [address] [place], [place] [id number] Vital Signs Date Time Vital Sign Value Performing Clinician Facility 10-19-2023 11:31-0400 Body height 182.88 cm [facility] 10-19-2023 11:31-0400 Body mass index (BMI) [Ratio] 51.7 kg/m2 [facility] 10-19-2023 11:31-0400 Body weight 172.87 kg [facility] 10-19-2023 11:31-0400 Diastolic blood pressure 83 mm[Hg] [facility] 10-19-2023 11:31-0400 Heart rate 74 /min [facility] 10-19-2023 11:31-0400 Respiratory rate 18 /min [facility] 10-19-2023 11:31-0400 SaO2% (BldA) [Mass fraction] 97 % [facility] 10-19-2023 11:31-0400 Systolic blood pressure 149 mm[Hg] [facility] 06-16-2023 11:33-0500 Diastolic blood pressure 84 mm[Hg] Blossom Cody PHOTOGRAPHIC MACHINE OPERATOR Work Phone: [facility] 06-16-2023 11:33-0500 Systolic blood pressure 154 mm[Hg] Blossom Mejiael PHOTOGRAPHIC MACHINE OPERATOR Work Phone: [facility] 06-16-2023 11:02-0500 Body mass index (BMI) [Ratio] 52.12 kg/m2 Blossom Mejiael PHOTOGRAPHIC MACHINE OPERATOR Work Phone: [facility] 06-16-2023 11:02-0500 Body weight 171.91 kg Blossom Glo PHOTOGRAPHIC MACHINE OPERATOR Work Phone: [facility] 06-16-2023 11:02-0500 Heart rate 92 /min Blossom Mejiael PHOTOGRAPHIC MACHINE OPERATOR Work Phone: [facility] 06-09-2023 08:45-0500 Body height Tona Mapus Other [facility] [employer] Other 06-09-2023 08:45-0500 Body height 182.88 cm MD Natalie Hernandez Work Phone: [facility] 06-09-2023 08:45-0500 Body mass index (BMI) [Ratio] 51.33 kg/m2 Tondra Mapus Other [facility] [employer] Other 06-09-2023 08:45-0500 Body weight 171.69 kg Tondra Mapus Other [employer] Other 06-09-2023 08:45-0500 Body weight 171.68 kg MD Estrada Shelby Work Phone: [facility] 06-09-2023 08:45-0500 Diastolic blood pressure 80 mm[Hg] Tondra Mapus Other [facility] 06-09-2023 08:45-0500 Respiratory rate 18 /min Tondra Mapus Other [employer] Other 06-09-2023 08:45-0500 SaO2% (BldA) [Mass fraction] 94 % Tondra Mapus Other [employer] Other 06-09-2023 08:45-0500 Systolic blood pressure 148 mm[Hg] Tondra Mapus Other [facility] 01-04-2023 08:45-0400 Body height Tondra Mapus Other [employer] Other 01-04-2023 08:45-0400 Body mass index (BMI) [Ratio] 51.37 kg/m2 Tondra Mapus Other [employer] Other 01-04-2023 08:45-0400 Body weight 171.82 kg Tondra Mapus Other [employer] Other 01-04-2023 08:45-0400 Diastolic blood pressure 85 mm[Hg] Tondra Mapus Other [employer] Other 01-04-2023 08:45-0400 Respiratory rate 18 /min Tondra Mapus Other [employer] Other 01-04-2023 08:45-0400 SaO2% (BldA) [Mass fraction] 98 % Tondra Mapus Other [employer] Other 01-04-2023 08:45-0400 Systolic blood pressure 150 mm[Hg] Tondra Mapus Other [employer] Other 06-25-2022 09:45-0500 Body height Tondra Mapus Other [employer] Other 06-25-2022 09:45-0500 Body mass index (BMI) [Ratio] 51.14 kg/m2 Tondra Mapus Other [employer] Other 06-25-2022 09:45-0500 Body weight 171.05 kg Tondra Mapus Other [employer] Other 06-25-2022 09:45-0500 Diastolic blood pressure 80 mm[Hg] Tondra Mapus Other [employer] Other 06-25-2022 09:45-0500 Respiratory rate 18 /min Tondra Mapus Other [employer] Other 06-25-2022 09:45-0500 SaO2% (BldA) [Mass fraction] 95 % Tondra Mapus Other [employer] Other 06-25-2022 09:45-0500 Systolic blood pressure 139 mm[Hg] Tondra Mapus Other [employer] Other 01-06-2022 09:45-0400 Body height Tondra Mapus Other [employer] Other 01-06-2022 09:45-0400 Body mass index (BMI) [Ratio] 48.28 kg/m2 Tondra Mapus Other [employer] Other 01-06-2022 09:45-0400 Body weight 161.48 kg Tondra Mapus Other [employer] Other 01-06-2022 09:45-0400 Diastolic blood pressure 71 mm[Hg] Tondra Mapus Other [employer] Other 01-06-2022 09:45-0400 Respiratory rate 20 /min Tondra Mapus Other [employer] Other 01-06-2022 09:45-0400 SaO2% (BldA) [Mass fraction] 95 % Tondra Mapus Other [employer] Other 01-06-2022 09:45-0400 Systolic blood pressure 124 mm[Hg] Tondra Mapus Other [employer] Other Encounters Encounter Date Encounter Type Care Provider Facility Start: 10-29-2023 End: 10-29-2023 ambulatory MIRLANDE PECK Not Available Start: 10-19-2023 End: 10-19-2023 ambulatory [facility] Work Phone: Start: 10-19-2023 End: 10-19-2023 Patient [...] Available Start: 06-16-2023 Bamboo flowsheet Blossom cabrales PHOTOGRAPHIC MACHINE OPERATOR Work Phone: [facility] Start: 06-16-2023 Bamboo flowsheet Blossom cabrales PHOTOGRAPHIC MACHINE OPERATOR Work Phone: [facility] Start: 06-16-2023 End: 06-16-2023 Office outpatient visit 25 minutes Blossom Cody PHOTOGRAPHIC MACHINE OPERATOR Work Phone: [facility] Comment [...] neuropathy, with long-term current use of insulin (CMS/[facility]); retirement (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 (Z79.4); Acquired absence of other toe(s), unspecified side (Z89.429); Type 2 diabetes mellitus with diabetic neuropathy, with long-term current use of insulin ([facility]); Body mass index [BMI] 50.0-59.9, adult (Z68.43); Type 2 diabetes mellitus with foot ulcer, with long-term current use of insulin (CMS/HCC); 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.49); Status post amputation of lesser toe, unspecified laterality (CMS/HCC); Arthritis of left foot; Acquired hallux valgus of left foot; Type 2 diabetes mellitus with hyperglycemia, with long-term current use of insulin ([facility]); Morbid obesity ([facility]) Start: 06-16-2023 End: 06-16-2023 ambulatory BLOSSOM MEJIAEL Not Available Start: 06-15-2023 End: 06-15-2023 ambulatory Tondra Mapus Other [employer] Other Start: 06-15-2023 Telephone encounter Tondra Dayannaus Angel [facility] Start: 06-09-2023 (DM) Diabetes Tondra Mapus [facility] Start: 06-09-2023 End: 06-10-2023 ambulatory MD Natalie Hernandez Work Phone: [employer] Other Start: 06-09-2023 End: 06-09-2023 Discharged Recurring MD Natalie Hernandez Work Phone: [facility] Work Phone: Start: 06-09-2023 End: 06-09-2023 Patient encounter procedure MD Natalie Hernandez Work Phone: [facility]- Start: 03-24-2023 End: 03-24-2023 ambulatory BLOSSOM CODY Not Available Start: 01-04-2023 (DM) Diabetes Tondra Shannon [facility] Start: 01-04-2023 End: 01-04-2023 ambulatory Tondra Mapus Other [employer] Other Start: 12-21-2022 End: 12-21-2022 ambulatory Tondra Mapus Other [employer] Other Start: 12-21-2022 Telephone encounter Tondra [facility] Start: 10-12-2022 ambulatory NATANAEL FELDMAN Faci lity:H1 Start: 10-06-2022 End: 10-07-2022 ambulatory NATANAEL FELDMAN Facility:H1 Start: 05-25-2023 Encounter for preprocedural cardiovascular examination NATANAEL Marks [facility] Start: 10-01-2022 Encounter for preprocedural laboratory examination NATANAEL Marks [facility] Start: 09-30-2022 End: 10-01-2022 ambulatory NATANAEL Marks [facility] Facility:[facility]1 Start: 09-30-2022 End: 10-01-2022 Encounter for preprocedural laboratory examination NATANAEL Marks [facility] Facility:H1 Start: 09-15-2022 End: 09-16-2022 ambulatory NATANAEL Marks [facility] Facility:H1 Start: 09-10-2022 End: 09-10-2022 ambulatory Tondra Mapus Other [employer] Other Start: 09-10-2022 Telephone encounter Tondra Mapus Angel [facility] Start: 08-24-2022 End: 08-25-2022 ambulatory NATANAEL Marks [facility] Facility:H1 Start: 08-10-2022 End: 08-10-2022 ambulatory Tondra Mapus Other [employer] Other Start: 08-10-2022 Telephone encounter Tondra Mapus Angel [facility] Start: 08-03-2022 End: 08-04-[address] NATALIE HERNANDEZ Facility:H1 Start: 07-13-2022 End: 07-14-2022 ambulatory MARTELLMIGNON NAVAS Facility:H1 Start: 06-30-2022 End: 07-01-2022 ambulatory NATANAEL Marks [facility] Facility:H1 Start: 06-25-2022 (DM) Diabetes Tondra Dayannaus [facility] Start: 06-25-2022 End: 06-25-2022 ambulatory Tondra Mapus Other [employer] Other Start: 06-16-2022 End: 06-17-2022 ambulatory NATANAEL Marks [facility] Facility:H1 Start: 06-08-2022 End: 06-09-2022 ambulatory NATANAEL Marks [facility] Facility:H1 Start: 05-25-2022 End: 05-26-2022 ambulatory NATANAEL Marks [facility] Facility:H1 Start: 05-12-2022 End: 05-13-2022 ambulatory PETER [...] 02-18-2022 End: 02-18-2022 ambulatory Tondra Mapus Other [employer] Other Start: 02-18-2022 Telephone encounter Tondra Shannon [facility] Start: 02-09-2022 End: 02-10-2022 ambulatory NATANAEL Marks [facility] Facility:H1 Start: 01-26-2022 End: 01-27-2022 ambulatory NATANAEL Marks [facility] Facility:[facility]1 Start: 01-13-2022 End: 01-14-2022 ambulatory NATANAEL FELDMAN Facility:H1 Start: 01-06-2022 (DM) Diabetes Tondra Shannon [facility] Start: 01-06-2022 End: 01-06-2022 ambulatory Tondra Mapus Other [employer] Other Start: 12-29-2021 End: 12-30-2021 ambulatory NATANAEL [...] post amputation of lesser toe, unspecified laterality ([facility]) Blossom Cody PHOTOGRAPHIC MACHINE OPERATOR Work Phone: Plan of Treatment Date Care Activity Detail Author Start: 03-24-2024 Urine screening for protein Diabetes: Urine Protein Screening [facility] Start: 09-15-2023 End: 09-15-2023 Patient encounter procedure 09/15/2023 9:30 AM EDT Office Visit [facility] [address] [place] [address] Blossom Cody NP [address] [facility] [place] [address] [facility] Start: 09-07-2023 Hemoglobin A1c measurement Diabetes: Hemoglobin A1C [facility] Start: 07-26-2023 Glaucoma screening Diabetes: Retinopathy Screening [facility] Start: 07-07-2023 End: 07-07-2023 Patient encounter procedure 07/07/2023 9:00 AM EST Office Visit [facility] [address] [facility] [place] [address] [facility] Start: 06-16-2023 End: 06-16-2023 Patient encounter procedure 06/16/2023 11:00 AM EST Office Visit [facility] [address] [facility] [place] [address] Blossom Cody NP [address] [place] [address] Diabetic polyneuropathy associated with type 2 diabetes mellitus (CMS/HCC) (Primary Dx); Diabetic neuropathic arthropathy (CMS/HCC); 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); 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, sequela (CMS/HCC); Ulcer of foot due to type 2 diabetes mellitus (CMS/HCC); Poorly controlled diabetes mellitus (CMS/HCC); Type 2 diabetes mellitus with hyperglycemia, with long-term current use of insulin ([facility]/HCC); Vitamin B 12 deficiency; Hx of diabetic neuropathy; 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CMS/HCC); Morbid obesity (CMS/HCC); Hypertriglyceridemia (CMS/HCC) [facility] Comment on above: Diabetic polyneuropathy associated with [...] Hx of diabetic neuropathy; 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[facility]/HCC); Morbid obesity ([facility]/HCC); Hypertriglyceridemia ([facility]) Comprehensive metabo lic 2000 panel - Serum or Plasma [facility] Patient Education Diabetes and diet [facility] Work Phone: [facility] Immunizations Immunization Date Immunization Notes Care Provider Fa dulce mariaty 03-24-2023 influenza, injectabl e, quadrivalent, preservative free Blossomdidier Cody PHOTOGRAPHIC MACHINE OPERATOR Work Phone: [facility] 08-26-2021 tetanus and diphther ia toxoids, adsorbed, preservative free, for adult use (5 Lf of tetanus toxoid and 2 Lf of diphtheria toxoid) Blossom Cody PHOTOGRAPHIC MACHINE OPERATOR Work Phone: [facility] 03-28-2021 influenza, injectabl e, quadrivalent, preservative free Blossom Glo PHOTOGRAPHIC MACHINE OPERATOR Work Phone: [facility] 02-13-2020 Influenza, injectabl e, Madin [place] Canine Kidney, preservative free, quadrivalent Blossom Glo PHOTOGRAPHIC MACHINE OPERATOR Work Phone: [facility] 02-22-2019 influenza, injectabl e, quadrivalent, preservative free Blossom Glo PHOTOGRAPHIC MACHINE OPERATOR Work Phone: [facility] 02-07-2018 influenza, injectabl e, quadrivalent, preservative free Blossom Glo PHOTOGRAPHIC MACHINE OPERATOR Work Phone: [facility] Payers Date Payer Category Payer Unknown [employer] [id number] 2022-Present [address] [address] [place] [address] [id number] 2020 Self-pay [id number] 1979 Unknown [id number] 2.16.840.1.363173.3.579.2.59 3 1979 Unknown [id number] 2.16.840.1.620981.3.579.2.59 3 1979 Unknown [id number] 2.16.840.1.919598.3.579.2.59 3 1979 Unknown [id number] 2.16.840.1.217760.3.579.2.59 3 1979 Unknown [id number] 2.16.840.1.993523.3.579.2.59 3 1979 Unknown [id number] 2.16.840.1.163408.3.579.2.59 3 1979 Unknown [id number] 2.16.840.1.933210.3.579.2.59 3 1979 Unknown [id number] 2.16.840.1.974750.3.579.2.59 3 1979 Unknown [id number] 2.16.840.1.809749.3.579.2.59 3 1979 Unknown [id number] 2.16.840.1.312295.3.579.2.59 3 1979 Unknown [id number] 2.16.840.1.372220.3.579.2.59 3 1979 Unknown [id number] 2.16.840.1.096602.3.579.2.59 3 1979 Unknown [id number] 2.16.840.1.915275.3.579.2.59 3 1979 Unknown [id number] 2.16.840.1.465821.3.579.2.59 3 1979 Unknown [id number] 2.16.840.1.170936.3.579.2.59 3 1979 Unknown [id number] 2.16.840.1.505931.3.579.2.59 3 1979 Unknown [id number] 2.16.840.1.413752.3.579.2.59 3 1979 Unknown [id number] 2.16.840.1.618402.3.579.2.59 3 1979 Unknown [id number] 2.16.840.1.353714.3.579.2.59 3 1979 Unknown [id number] 2.16.840.1.229606.3.579.2.59 3 1979 Unknown [id number] 2.16.840.1.207561.3.579.2.59 3 1979 Unknown [id number] 2.16.840.1.477224.3.579.2.59 3 1979 Unknown [id number] 2.16.840.1.283195.3.579.2.59 3 1979 Unknown [id number] 2.16.840.1.241571.3.579.2.59 3 1979 Unknown [id number] 2.16.840.1.894322.3.579.2.59 3 1979 Unknown [id number] 2.16.840.1.806702.3.579.2.59 3 1979 Unknown [id number] 2.16.840.1.782367.3.579.2.59 3 1979 Unknown [id number] 2.16.840.1.503105.3.579.2.59 3 1979 Unknown [id number] 2.16.840.1.528129.3.579.2.59 3 1979 Unknown [id number] 2.16.840.1.539654.3.579.2.59 3 1979 Unknown [id number] 2.16.840.1.188958.3.579.2.59 3 1979 Unknown [id number] 2.16.840.1.144865.3.579.2.59 3 1979 Unknown [id number] 2.16.840.1.126038.3.579.2.59 3 1979 Unknown [id number] 2.16.840.1.797819.3.579.2.59 3 1979 Unknown [id number] 2.16.840.1.862568.3.579.2.59 3 1979 Unknown [id number] 2.16.840.1.058460.3.579.2.59 3 1979 Unknown [id number] 2.16.840.1.386790.3.579.2.59 3 1979 Unknown [id number] 2.16.840.1.773464.3.579.2.59 3 1979 Unknown [id number] 2.16.840.1.698403.3.579.2.59 3 1979 Unknown [id number] 2.16.840.1.874293.3.579.2.59 3 1979 Unknown [id number] 2.16.840.1.352934.3.579.2.59 3 1979 Unknown [id number] 2.16.840.1.556925.3.579.2.12 59 1979 Unknown [id number] 2.16.840.1.458147.3.579.2.12 59 1979 Unknown [id number] 2.16.840.1.129341.3.579.2.12 59 1979 Unknown [id number] 2.16.840.1.282701.3.579.2.12 59 1979 Unknown [id number] 2.16.840.1.691718.3.579.2.12 59 1979 Unknown [id number] 2.16.840.1.709940.3.579.2.12 59 1979 Unknown [id number] 2.16.840.1.605070.3.579.2.12 59 1979 Unknown [id number] 2.16.840.1.420845.3.579.2.12 59 1959 Unknown [id number] 2.16.840.1.116384.19 1959 Unknown [id number] 2.16.840.1.423326.19 Unknown [id number] 2.16.840.1.286318.3.579.2.53 1 Social History Date Type Detail Facility Unknown if ever smoked [employer] Other Start: 03-23-2023 End: 06-17-2023 Sex Assigned At [facility] Start: 12-21-2022 Tobacco smoking status [facility] Never smoked tobacco [facility] Start: 12-21-2022 [...] Start: 1980 Sex Assigned At Male F [facility] Start: 10-19-2023 Tobacco smoking status [facility] Ex-smoker (finding) [facility] Medical Equipment Procedure Code Equipment Code Equipment Origin al Text Equipment Identifier Dates Start: 06-09-2023 Insulin Syringe-Needle U-100 (Bd Insulin Syringe Ultra-Fine) 1 mL 31 gauge x 5/16 syringe Start: 06-23-2023 blood sugar diagnostic (OneTouch Verio test strips) Start: 10-19-2023 Insulin Syringe-Needle U-100 (Bd Insulin Syringe Ultra-Fine) 1 mL 31 gauge x 5/16 syringe Start: 06-23-2023 Clinical Notes 05-10-2020 to 06-16-2023 Blossom Cody, PHOTOGRAPHIC MACHINE OPERATOR - 06/16/2023 11:00 AM EST Note [...] sugars ranging from 120-170's. Sees Joshua in [place], next appt September 13 with them. Taking [...] polyneuropathy associated with type 2 diabetes mellitus ([facility]/HCC) Comments: Seepatrice Lewis, last HgbA1c 8.11 May 2023 (prior 8.9 end of December). Pt asked me why we can't just take care of his Diabetes, so he doesn't have to go to [place]. I told him because his sugars are [...] DM care again. 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 Now has left foot toe amputated. Per pt toe is healing Ulcer of foot due to type 2 diabetes mellitus (CMS/HCC): Hx of Poorly controlled diabetes mellitus (CMS/HCC): Last HgbA1c 8.2 Type 2 diabetes mellitus with hyperglycemia, with long-term current use of insulin ([facility]/HCC): As above Vitamin B 12 deficiency [...] neuropathy, with long-term current use of insulin (CMS/[facility]): Hx of retirement (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 (Z79.4): Hx of [...] Type 2 Diabetes mellitus with hyperglycemia with long term care pharmacist current use of insulin (CMS/[facility]): Hx of Morbid obesity: See above documented in this encounter [facility] 06-15-2023 Evaluation note Encounter Date Diagnosis Assessment Notes Jun, Type 2 diabetes mellitus with hyperglycemia (ICD-10 - E11.65) [facility] Other 01-31-2024 Evaluation note* Encounter Date Diagnosis [...] f/u with pcp for further recommendation May, retirement current use of insulin (ICD-10 - Z79.4) May, Vitamin B 12 deficiency (ICD-10 - E53.8) 04/01 vit b 12 351 at target May, BMI 50.0-59.9, adult (ICD-10 - Z68.43) see above May, Amputation toe (ICD-10 - Z89.429) Keep f/u with Dr. Feldman May, Cracked skin on feet (ICD-10 - R23.4) keep f/u with Dr. Feldman [facility] Other 08-28-2023 Evaluation note* Encounter Date Diagnosis [...] for Lispro/ozempic 0.5mg sent to [facility] [place] 01/04/23 7. Prescriptions will not be filled [...] (hypertension) (ICD-10 - I10) on julissa Dec, retirement current use of insulin (ICD-10 - Z79.4) Dec, Vitamin B 12 deficiency (ICD-10 - E53.8) 12/30 vit b 12 335 at target Dec, BMI 50.0-59.9, adult (ICD-10 - Z68.43) see above Dec, Wound of foot (ICD-10 - S91.309A) pt has apt scheduled with Dr. Feldman today [facility] Other 05-30-2023 NotePROCEDURE: XR FOOT LT MIN [...] Electronically authenticated by: FRANCO FRANCES Date: 2022-10-06 14:13[facility]05-04-2023 Evaluation note* Encounter Date Diagnosis Assessment Notes Treatment Notes Treatment Clinical Notes September, Type 2 diabetes mellitus with hyperglycemia (ICD-10 - E11.65) [facility] Other 04-17-2023 NotePROCEDURE: XR FOOT LT MIN [...] Electronically authenticated by: FERN SOSA Date: 2022-08-24 12:46[facility]02-16-2023 Evaluation note* Encounter Date Diagnosis Assessment Notes Treatment Notes Treatment Clinical Notes Jun, Type 2 diabetes mellitus with hyperglycemia (ICD-10 - E11.65) 1. Uncontrolled, a Type 2 diabetes with A1c of 8.2% 2. Blood glucose levels above target. Discussed with pt restarting ozempic, he had s/e from higher dose ozempic 1mg and concern with cost works at [employer]. Pt agreeable to starting sample ozempic 0.5mg [...] Syringes/ozempic/st eglatro sent to [facility] in [place] 06/25/22 7. Prescriptions will not be filled [...] (hypertension) (ICD-10 - I10) on julissa Jun, intermediate card tender current use of insulin (ICD-10 - Z79.4) Jun, Vitamin B 12 deficiency (ICD-10 - E53.8) 12/28 vit b 12 423 at target Jun, BMI 50.0-59.9, adult (ICD-10 - Z68.43) [facility] Other 02-07-2023 NotePROCEDURE: XR ANKLE LT MIN [...] Electronically authenticated by: GISSEL RUBIO Date: 2022-06-16 16:33[facility]02-07-2023 NotePROCEDURE: XR ANKLE LT MIN 3 [...] Electronically authenticated by: GISSEL RUBIO Date: 2022-06-16 16:33[facility]08-30-2022 Evaluation note* Encounter Date Diagnosis Assessment [...] (hypertension) (ICD-10 - I10) on julissa Dec, retirement current use of insulin (ICD-10 - Z79.4) Dec, Vitamin B 12 deficiency (ICD-10 - E53.8) 12/28 vit b 12 423 at target Dec, BMI 45.0-49.9, adult (ICD-10 - Z68.42) 14 pound weight loss from last visit, continue with weight loss efforts [facility] Other 01-01-2021 History general Narrative - Reported* Type Description Date Medical History type II diabetes Medical History hypertension Medical History hyperlipidemia Medical History covid 05/2020 Surgical History Ulcer on left great toe X2 Surgical History Partial amputation Right great toe 01/2021 Surgical History All toes right foot amputated Hospitalization History Toe infection 2017 [facility] Other 01-01-2021 History general Narrative - Reported* Type Description Date Medical History type II diabetes Medical History hypertension Medical History hyperlipidemia Medical History covid 05/2020 Surgical History Ulcer on left great toe X2 Surgical History Partial amputation Right great toe 01/2021 Surgical History All toes right foot amputated Surgical History Left great toe corre ctive surgery with Dr. Feldman in [place] 10/2022 Hospitalization History Toe infection 2017 [facility] Other Chief complaint+Reason for visit Narrative* Chief Complaint no meter Reason for Visit BMI 50.0-59.9, adult Dietary counseling and surveillance Hypertension Mixed hyperlipidemia Type 2 diabetes mellitus with hyperglycemia [facility] Work Phone: Evaluation noteNo InformationNort Yob[employer] Other Evaluation note* Diagnosis Diabetic polyneuropathy associated with type 2 diabetes mellitus (CMS/HCC)- Primary Diabetic neuropathic arthropathy (CMS/HCC) Type II or unspecified type diabetes mellitus with neurological manifestations, not stated as uncontrolled 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) 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, sequela ([facility]/HCC) Ulcer of foot due to type [...] with long-term current use of insulin (CMS/HCC) intermediate card tender (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 (Z79.4) Acquired absence of other toe(s), unspecified side (Z89.429) Type 2 diabetes mellitus with diabetic neuropathy, with long-term current use of insulin (CMS/[facility]) Body mass index [BMI] 50.0-59.9, adult (Z68.43) Type 2 diabetes mellitus with foot ulcer, with long-term current use of insulin ([facility]/HCC) 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.49) Status post amputation of lesser toe, unspecified laterality (CMS/[facility]) Arthritis of left foot Acquired hallux valgus of left foot Type 2 diabetes mellitus with hyperglycemia, with long-term current use of insulin (CMS/[facility]) Morbid obesity ([facility]) Morbid obesity documented in this encounter [facility] HealthcareEvaluation noteNo assessment information availableCorey Hospital Work Phone: Evaluation note* Diagnosis Onset Date Resolution Status BMI 50.0-59.9, adult acute Dietary counseling and surveillance acute Hypertension acute Mixed hyperlipidemia acute Type 2 diabetes mellitus with hyperglycemia acute [facility] Work Phone: Summary Purpose Family History [...] section and content) DATE CREATED AUTHOR 08/27/2021 [facility]ical Specialist DATE CREATED AUTHOR AUTHOR'S ORGANIZ ATION 10/17/2022 [facility] pital DATE CREATED AUTHOR AUTHOR'S ORGANIZ ATION 08/14/2023 [facility] DATE CREATED AUTHOR AUTHOR'S ORGANIZ ATION 10/30/2023 [facility] dical Specialists EPIC REASON FOR VISIT (unrecogniz ed section and content) Reason Comments Diabetes Pt saw endocrinology last week and has his hgbA1c. HgbA1c was 8.2 and his results and notes are under media from that appt on 06-09-22 Care Teams (unrecognized sec tion and content) Production [employer]airer Relationship Specialty Start Date End Date Natalie Hernandez MD [address] [place] [address] PCP - General Family Medicine 09/15/22 [employer]r Relationship Specialty Start Date End Date Natalie Hernandez MD [address] [place] [address] PCP - General Family Medicine 09/15/22 Team [...] BE BASED ON THE PRIMARY CLINICAL RECORDS. [facility]. provides no warranty or guarantee of the accuracy or completeness of information in this document.
== END 2023-12-27 15:50 | disposition home or self-care (01) ==
LOC: WC 15:49
PROVIDERS: PCP Family Medicine; Visit Provider Physician Assistant
DX: E11.621 Type 2 diabetes mellitus with foot ulcer (principal); L97.418 Non-pressure chronic ulcer of right heel and midfoot with other specified severity; L97.528 Non-pressure chronic ulcer of other part of left foot with other specified severity
CPT/HCPCS: 29445

== ENCOUNTER 2024-01-03 14:15 | Outpatient (OUT) | payer OTHER, SELFPAY | END 2024-01-03 14:16 | disposition home or self-care (01) | LOC: WC 14:15 | PROVIDERS: PCP Family Medicine; Visit Provider Physician Assistant | DX: E11.621 Type 2 diabetes mellitus with foot ulcer (principal); L97.528 Non-pressure chronic ulcer of other part of left foot with other specified severity; L97.418 Non-pressure chronic ulcer of right heel and midfoot with other specified severity | CPT/HCPCS: 29445 ==

== ENCOUNTER 2024-01-11 14:22 | Outpatient (OUT) | payer OTHER, SELFPAY | END 2024-01-11 14:23 | disposition home or self-care (01) | LOC: WC 14:22 | PROVIDERS: PCP Family Medicine; Visit Provider Physician Assistant | DX: E11.621 Type 2 diabetes mellitus with foot ulcer (principal); L97.418 Non-pressure chronic ulcer of right heel and midfoot with other specified severity | CPT/HCPCS: 11042; 29445 ==

== ENCOUNTER 2024-01-17 14:52 | Outpatient (OUT) | payer OTHER, SELFPAY | END 2024-01-17 14:53 | disposition home or self-care (01) | LOC: WC 14:52 | PROVIDERS: PCP Family Medicine; Visit Provider Physician Assistant | DX: E11.621 Type 2 diabetes mellitus with foot ulcer (principal); L97.528 Non-pressure chronic ulcer of other part of left foot with other specified severity; L97.418 Non-pressure chronic ulcer of right heel and midfoot with other specified severity | CPT/HCPCS: G0463 ==

== ENCOUNTER 2024-01-24 15:22 | Outpatient (OUT) | payer OTHER, SELFPAY | END 2024-01-24 15:23 | disposition home or self-care (01) | LOC: WC 15:22 | PROVIDERS: PCP Family Medicine; Visit Provider Physician Assistant | DX: E11.621 Type 2 diabetes mellitus with foot ulcer (principal); L97.412 Non-pressure chronic ulcer of right heel and midfoot with fat layer exposed | CPT/HCPCS: 11042 ==

== ENCOUNTER 2024-01-28 11:58 | Outpatient (OUT) | payer OTHER, SELFPAY | END 2024-01-28 11:59 | disposition home or self-care (01) | LOC: WC 11:58 | PROVIDERS: PCP Family Medicine; Visit Provider Podiatrist Foot & Ankle Surgery | DX: E11.621 Type 2 diabetes mellitus with foot ulcer (principal); L97.412 Non-pressure chronic ulcer of right heel and midfoot with fat layer exposed | CPT/HCPCS: 29445 ==

== ENCOUNTER 2024-02-03 13:26 | Outpatient (OUT) | payer OTHER, SELFPAY | END 2024-02-03 13:27 | disposition home or self-care (01) | LOC: WC 13:26 | PROVIDERS: PCP Family Medicine; Visit Provider Physician Assistant | DX: E11.621 Type 2 diabetes mellitus with foot ulcer (principal); L97.412 Non-pressure chronic ulcer of right heel and midfoot with fat layer exposed | CPT/HCPCS: 29445 ==

== ENCOUNTER 2024-02-11 11:39 | Outpatient (OUT) | payer OTHER, SELFPAY ==
--- OUTSIDE RECORDS SUMMARY | 2024-02-11 11:48 | XMS_ITS | CCD ---
Author Organization [facility] CliniSysd Care Team Providers Care Char Filter Tank Tender Head Name Role Phone Link Ortega Unavailable NATANAEL [...] Primary Care Unavailable JOY DOBBS Consulting Unavailable TAIWO, NATANAEL Marks Attending Unavailable NATANAEL FELDMAN Consulting Unavailable NATANAEL [...] Primary Care Unavailable NATANAEL FELDMAN Admitting Unavailable NATANAEL FELDMAN Attending Unavailable NATANAEL FELDMAN Consulting Unavailable WONDERLY, DR NATALIE Lozada Primary Care Unavailable HIGHLANDER, NATANAEL Marks Admitting Unavailable SHERMAN RAFAEL Consulting Unavailable HIGHLANDER, NATANAEL Marks Attending Unavailable [...] NATANAEL Marks Admitting Unavailable WONDERLY, DR NATALIE Lozdaa Primary Care Unavailable HIGHLANDER, NATANAEL Marks Attending [...] Care Unavailable MICHELLEANDER, NATANAEL Marks Attending Unavailable TAIWO, NATANAEL Marks Admitting Unavailable WONDERLY, DR NATALIE Lozada Primary Care Unavailable HIGHLANDER, NATANAEL Marks Attending Unavailable WONDERLY, DR NATALIE Lozada Primary Care Unavailable HIGHLANDER, NATANAEL Marks Admitting Unavailable HIGHLANDER, NATANAEL Marks Attending Unavailable HIGHLCAROLYNN, NATANAEL Marks Admitting Unavailable WEST, DR FRANCO Adamson Consulting Unavailable WONDERLY, DR NATALIE Lozada Primary Care Unavailable HIGHLANDER, NATANAEL Marks Consulting Unavailable TAIWO, NATANAEL Marks Attending Unavailable WONDERLY, DR NATALIE Lozada Primary Care Unavailable HIGHLANDER, NATANAEL Marks Admitting Unavailable HIGHLANDER, NATANAEL Marks Attending Unavailable HIGHLANDER, NATANAEL Marks Admitting Unavailable WONDERLY, DR NATALIE Lozada Primary Care Unavailable MICHELLEANDER, NATANAEL Marks Attending Unavailable WONDERLY, DR NATALIE Lozada Primary Care Unavailable HIGHLANDER, NATANAEL Marks Admitting Unavailable Wonderly Natalie AVALOS Primary Care Provider MD Damon Claros Attending Provider MD Natalie Hernandez [facility] Provider Natalie Hernandez [facility] Care Unavailable Damon Claros Attending Unavailable Damon Claros Admitting Unavailable GLO, BLOSSOM Kong Attending Unavailable GLO, BLOSSOM Kong Attending Unavailable GLO, BLOSSOM Kong Attending Unavailable RUSHER, MIRLANDE Zhang Attending Unavailable RUSHER, MIRLANDE Zhang Attending Unavailable GLO, BLOSSOM Kong Attending Unavailable RUSHER, MIRLANDE Zhang Attending Unavailable RUSHER, MIRLANDE Zhang Attending Unavailable GLO, BLOSSOM Kong Attending Unavailable Medications Current Medications Medication Drug Class(es) Dates Sig (Normalized) Sig (Original) 0.25 MG, 0.5 MG Dose 3 ML semaglutide 0.68 MG/ML Pen Injector [Ozempic] (1 source) Start: 01-04-2023 inject 0.5 mg by subcutaneous injection every week Ozempic (0.25 or 0.5 MG/DOSE) 2 MG/3ML 0.5mg Subcutaneous once weekly for 84 days Dec, Active aspirin 81 mg chewable tablet (14 sources) Platelet Aggregation Inhibitor, Nonsteroidal Anti-inflammatory Drug [...] day Active atorvastatin 40 mg oral tablet (14 sources) HMG-CoA Reductase Inhibitor Start: 10-19-2023 take 40 mg by mouth once daily Atorvastatin Active 40 MG PO Daily October 19, 2023 12:00am Start: 02-08-2023 take 1 tablet by janna th in the morning atorvastatin (Lipitor) 40 MG tablet Indications: Pure hyperglyceridemia (CMS/HCC) Take 1 tablet (40 mg) by mouth in the morning. 90 tablet 3 02/08/2023 Active dapagliflozin 10 mg oral tablet (2 sources) Sodium-Glucose Cotransporter 2 Inhibitor Start: 10-19-2023 take 1 tablet by mouth once daily in the morning Dapagliflozin Propanediol (Farxiga) 10 mg tablet Active 10 MG PO Every morning 90 October 19, 2023 12:00am ertugliflozin 15 mg [...] in the evening. 0 Active Insulin Glargine-Yfgn (11 sources) Start: 10-19-2023 inject 44 [IU] by subcutaneous injection twice daily Insulin Glargine-Yfgn Active 44 UNIT SUBCUT Twice daily October 19, 2023 12:27pm Start: 10-19-2023 End: 10-19-2023 inject 44 [IU] by subcutaneous injection twice daily Insulin Glargine-Yfgn Discontinued 44 UNIT SUBCUT Twice daily October 19, 2023 12:04pm October 19, 2023 12:27pm Start: 10-19-2023 inject 44 [IU] by landry bcutaneous injection twice daily Insulin Glargine-Yfgn Active 44 [...] PER DAY for 90 Active Insulin Lispro (15 sources) Insulin Analog Start: 01-26-20 Insulin Lispro Active 0 SUBCUT .COMPLEX 60 January 26, 2024 10:37am subcutaneously; 1:4 carb ratio ac tid. 1:15 corrective scale ac tid (hs if >200 half dose) as directed; (expect up to 60 units/day) Start: 12-15-2023 End: 01-26-2024 Insulin Lispro Discontinued 0 SUBCUT .COMPLEX 60 December 15, 2023 2:47pm January 26, 2024 10:37am subcutaneously; 1:4 carb ratio ac tid. 1:15 corrective scale ac tid (hs if >200 half dose) as directed; (expect up to 60 units/day) Start: 10-19-2023 End: 12-15-2023 Insulin Lispro Discontinued 0 SUBCUT .COMPLEX 60 October 19, 2023 12:27pm December 15, 2023 2:48pm subcutaneously; 1:4 carb ratio ac tid. 1:15 corrective scale ac tid (hs if >200 half dose) as directed; (expect up to 60 units/day) Start: 10-19-2023 End: 10-19-2023 Insulin Lispro Discontinued 0 SUBCUT .COMPLEX October 19, 2023 12:00am October 19, 2023 12:28pm subcutaneously; 1:4 carb ratio ac tid. 1:15 corrective scale ac tid (hs if >200 half dose) as directed; (expect up to 60 units/day) Start: 10-19-2023 Insulin Lispro Active 0 SUBCUT .COMPLEX October [...] 3 ml liraglutide 6 mg/ml pen injector (4 sources) GLP-1 Receptor Agonist Start: 10-19-2023 Liraglutide (Victoza 3-Connor) 0.6 mg/0.1 mL (18 mg/3 mL) pen injector Active 0 SUBCUT .COMPLEX October 19, 2023 12:00am inject 1.8mg once daily Start: 06-09-2023 inject 1.8 mg by sub cutaneous injection once daily Victoza 18 MG/3ML 1.8mg Subcutaneous daily for 84 days May, Active lisinopril 30 mg oral tablet (16 sources) Angiotensin Converting Enzyme Inhibitor Start: 10-19-2023 [...] adjustment) metFORMIN hydrochloride 500 mg oral tablet (17 sources) Biguanide Start: 07-22-2023 End: 07-22-2023 take [...] LT FOOT] Onset: 10-07-2022 Episodic Administrative/social admission (8 sources) Dietary counseling and surveillance; Translations: [Patient [...] 10-02-2022 10-02-2022 Chronic Open wounds of extremities (5 sources) Unspecified open wound, unspecified foot, initial encounter; Translations: [Injury of left foot] Episodic Osteoarthritis (5 sources) Arthritis of left foot; Translations: [Primary osteoarthritis, left ankle and foot] Onset: 10-02-2022 10-02-2022 Chronic Other aftercare (11 sources) Long-term current use of insulin; Translations: [half-way (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] 06-17-2023 Episodic Other aftercare (4 sources) half-way (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 Onset: 01-06-2022 Resolved: [...] nutritional; endocrine; and metabolic disorders (5 sources) Body mass index (BMI) 50.0-59.9, adult; [...] 06-09-2023 HbA1c (Bld) [Mass fraction] 8.2 % [facility] Other Glucose - FINGER STICKon Glucose [Mass/Vol] 170 mg/dL [facility] Other HbA1c (Bld) [Mass fraction]o n 06-09-2023 A1C HEMOGLOBIN [employer] Other A1C HEMOGLOBINon 01-04-2023 HbA1c (Bld) [Mass fraction] 8.9 % [facility] Other Glucose - FINGER STICKon Glucose [Mass/Vol] 201 mg/dL [facility] Other HbA1c (Bld) [Mass fraction]o n 01-04-2023 A1C HEMOGLOBIN [place] [email or web address] Other PROF CHEM 8 (BAS METB)on Anion gap [Moles/Vol] 14.3 mmol/L Normal [facility] Comment on above: Performed By: #### B MP #### [facility] [address] [address] [address] Lauri Todd Calcium [Mass/Vol] 9.4 mg/dL Normal 8.5-10.1 [facility] Comment on above: Performed By: #### B MP #### [facility] [address] [address] [address] Lauri Todd Chloride [Moles/Vol] 101 mmol/L Normal 98-107 [facility] Comment on above: Performed By: #### B MP #### [facility] [address] [address] [address] Lauri Todd CO2 [Moles/Vol] 26.2 mmol/L Normal 21.0-32.0 [facility] Comment on above: Performed By: #### B MP #### [facility] [address] [address] [address] Lauri Todd Creatinine [Mass/Vol] 0.90 mg/dL Normal 0.70-1.30 [facility] Comment on above: Performed By: #### B MP #### [facility] [address] [address] [address] Lauri Todd EGFR-AF [place] >60 Normal >=60 [facility] Comment on above: Performed By: #### B MP #### [facility] [address] [address] [address] Lauri Todd EGFR-NON AF [place] >60 Normal >=60 [facility] Comment on above: Performed By: #### B MP #### [facility] [address] [address] [address] Lauri Todd Glucose [Mass/Vol] 146 mg/dL Critically high 74-106 [facility] Comment on above: Performed By: #### B MP #### [facility] [address] [address] [address] Lauri Todd Potassium [Moles/Vol] 4.5 mmol/L Normal 3.5-5.1 [facility] Comment on above: Performed By: #### B MP #### [facility] [address] [place], [place] [address] Dr. Lauri Todd Sodium [Moles/Vol] 137 mmol/L Normal 136-145 [facility] Comment on above: Performed By: #### B MP #### [facility] [address] [address] [address] Lauri Todd Urea nitrogen [Mass/Vol] 16.0 mg/dL Normal 7.0-18.0 [facility] Comment on above: Performed By: #### B MP #### [facility] [address] [address] [address] Lauri Todd Urea nitrogen/Creatinin e [Mass ratio] 17.8 mg/mg Normal [facility] Comment on above: Performed By: #### B MP #### [facility] [address] [address] [address] Lauri Todd A1C HEMOGLOBINon 06-25-2022 HbA1c (Bld) [Mass fraction] 8.2 % [facility] Other Glucose - FINGER STICKon Glucose [Mass/Vol] 180 mg/dL [facility] Other HbA1c (Bld) [Mass fraction]o n 06-25-2022 A1C HEMOGLOBIN [facility] [employer] Other XR FOOT LT MIN 3 VIEWSon [...] by: RAFAEL WHITAKER Date: 2022-05-25 11:52 Normal [facility] A1C HEMOGLOBINon 01-06-2022 HbA1c (Bld) [Mass fraction] 7 % [facility] Other Glucose - FINGER STICKon Glucose [Mass/Vol] 148 mg/dL [facility] Other HbA1c (Bld) [Mass fraction]o n 01-06-2022 A1C HEMOGLOBIN [place] [employer] Other Basic Metabolic Panelon 08-08 Anion gap [Moles/Vol] 20 mmol/L Normal 12-20 [facility] Comment on above: Result Comment: Effe ctive 05/15/2019 reference range changed. Performed By: #### B MP #### [facility] [address] [place], [place] [id number] Calcium [Mass/Vol] 10.0 mg/dL Normal 8.6-10.2 [facility] Comment on above: Performed By: #### B MP #### [facility] [address] [place], [place] [id number] Chloride [Moles/Vol] 100 mmol/L Normal 98-107 [facility] Comment on above: Performed By: #### B MP #### [facility] [address] [place], [place] [id number] CO2 [Moles/Vol] 22 mmol/L Normal 20-31 [facility] Comment on above: Performed By: #### B MP #### [facility] [address] [place], [place] [id number] Creatinine [Mass/Vol] 0.8 mg/dL Normal 0.7-1.4 [facility] Comment on above: Performed By: #### B MP #### [facility] [address] [place], [place] [id number] eGFRAA 129 mL/min/1.73m2 Normal >60 [facility] Comment on above: Performed By: #### B MP #### [facility] [address] [place], [place] [id number] eGFRNAA 107 mL/min/1.73m2 Normal >60 [facility] Comment on above: Performed By: #### B MP #### [facility] [address] [place], [place] [id number] Glucose [Mass/Vol] 140 mg/dL High 65-99 [facility] [place] [employer] Comment on above: Result Comment: For FASTING Glucose --- ADA reference ranges: Normal 65-99 mg/dl Prediabetes 100-125 Diabetes >/= 126 Performed By: #### B MP #### [facility] [address] [place], [place] [id number] Potassium [Moles/Vol] 4.3 mmol/L Normal 3.5-5.5 [facility] [employer] Comment on above: Performed By: #### B MP #### [facility] [address] [place], [place] [id number] Sodium [Moles/Vol] 137 mmol/L Normal 135-146 [facility] [place] [employer] Comment on above: Performed By: #### B MP #### [facility] [address] [place], [place] [id number] Urea nitrogen [Mass/Vol] 17 mg/dL Normal 7-25 [facility] [employer] Comment on above: Performed By: #### B MP #### [facility] [address] [place], [place] [id number] Vital Signs Date Time Vital Sign Value Performing Clinician Facility 01-26-2024 09:59-0400 Body height 182.88 cm [facility] 01-26-2024 09:59-0400 Body mass index (BMI) [Ratio] 51.2 kg/m2 [facility] 01-26-2024 09:59-0400 Body weight 171.54 kg [facility] 01-26-2024 09:59-0400 Diastolic blood pressure 83 mm[Hg] [facility] 01-26-2024 09:59-0400 Heart rate 81 /min [facility] 01-26-2024 09:59-0400 Respiratory rate 18 /min [facility] 01-26-2024 09:59-0400 SaO2% (BldA) [Mass fraction] 94 % [facility] 01-26-2024 09:59-0400 Systolic blood pressure 155 mm[Hg] [facility] 10-19-2023 11:31-0400 Body height 182.88 cm [facility] 10-19-2023 11:31-0400 Body mass index (BMI) [Ratio] 51.7 kg/m2 [facility] 10-19-2023 11:31-0400 Body weight 172.87 kg [facility] 10-19-2023 11:31-0400 Diastolic blood pressure 83 mm[Hg] [facility] 10-19-2023 11:31-0400 Heart rate 74 /min [facility] 10-19-2023 11:31-0400 Respiratory rate 18 /min [facility] 10-19-2023 11:31-0400 SaO2% (BldA) [Mass fraction] 97 % [facility] 10-19-2023 11:31-0400 Systolic blood pressure 149 mm[Hg] [facility] 06-16-2023 11:33-0500 Diastolic blood pressure 84 mm[Hg] Blossom Cody STOCK PREPARATION OPERATOR Work Phone: [facility] 06-16-2023 11:33-0500 Systolic blood pressure 154 mm[Hg] Blossom Cody STOCK PREPARATION OPERATOR Work Phone: [facility] 06-16-2023 11:02-0500 Body mass index (BMI) [Ratio] 52.12 kg/m2 Blossom Cody STOCK PREPARATION OPERATOR Work Phone: [facility] 06-16-2023 11:02-0500 Body weight 171.91 kg Blossom Cody STOCK PREPARATION OPERATOR Work Phone: [facility] 06-16-2023 11:02-0500 Heart rate 92 /min Blossom Cody STOCK PREPARATION OPERATOR Work Phone: [facility] 06-09-2023 08:45-0500 Body height Tondra Mapus Other [facility] Other 06-09-2023 08:45-0500 Body height 182.88 cm MD Natalie Diggs Phone: [facility] 06-09-2023 08:45-0500 Body mass index (BMI) [Ratio] 51.33 kg/m2 Tondra Mapus Other [facility] Other 06-09-2023 08:45-0500 Body weight 171.69 kg Tondra Mapus Other [facility] Other 06-09-2023 08:45-0500 Body weight 171.68 kg MD Natalie Diggs Phone: [facility] 06-09-2023 08:45-0500 Diastolic blood pressure 80 mm[Hg] Tondra Mapus Other [facility] 06-09-2023 08:45-0500 Respiratory rate 18 /min Tondra Mapus Other [facility] Other 06-09-2023 08:45-0500 SaO2% (BldA) [Mass fraction] 94 % Tondra Mapus Other [facility] Other 06-09-2023 08:45-0500 Systolic blood pressure 148 mm[Hg] Tondra Mapus Other [facility] 01-04-2023 08:45-0400 Body height Tondra Mapus Other [facility] Other 01-04-2023 08:45-0400 Body mass index (BMI) [Ratio] 51.37 kg/m2 Tondra Mapus Other [facility] Other 01-04-2023 08:45-0400 Body weight 171.82 kg Tondra Mapus Other [facility] Other 01-04-2023 08:45-0400 Diastolic blood pressure 85 mm[Hg] Tondra Mapus Other [facility] Other 01-04-2023 08:45-0400 Respiratory rate 18 /min Tondra Mapus Other [facility] Other 01-04-2023 08:45-0400 SaO2% (BldA) [Mass fraction] 98 % Tondra Mapus Other [facility] Other 01-04-2023 08:45-0400 Systolic blood pressure 150 mm[Hg] Tondra Mapus Other [facility] Other 06-25-2022 09:45-0500 Body height Tondra Mapus Other [facility] Other 06-25-2022 09:45-0500 Body mass index (BMI) [Ratio] 51.14 kg/m2 Tondra Mapus Other [facility] Other 06-25-2022 09:45-0500 Body weight 171.05 kg Tondra Mapus Other [facility] Other 06-25-2022 09:45-0500 Diastolic blood pressure 80 mm[Hg] Tondra Mapus Other [facility] Other 06-25-2022 09:45-0500 Respiratory rate 18 /min Tondra Mapus Other [facility] Other 06-25-2022 09:45-0500 SaO2% (BldA) [Mass fraction] 95 % Tondra Mapus Other [facility] Other 06-25-2022 09:45-0500 Systolic blood pressure 139 mm[Hg] Tondra Mapus Other [facility] Other 01-06-2022 09:45-0400 Body height Tondra Mapus Other [facility] Other 01-06-2022 09:45-0400 Body mass index (BMI) [Ratio] 48.28 kg/m2 Tondra Mapus Other [facility] Other 01-06-2022 09:45-0400 Body weight 161.48 kg Tondra Mapus Other [facility] Other 01-06-2022 09:45-0400 Diastolic blood pressure 71 mm[Hg] Tondra Mapus Other [facility] Other 01-06-2022 09:45-0400 Respiratory rate 20 /min Tondra Mapus Other [facility] Other 01-06-2022 09:45-0400 SaO2% (BldA) [Mass fraction] 95 % Tondra Mapus Other [facility] Other 01-06-2022 09:45-0400 Systolic blood pressure 124 mm[Hg] Tondra Mapus Other [employer] Other Encounters Encounter Date Encounter Type Care Provider Facility Start: 01-26-2024 End: 01-26-2024 ambulatory [facility] Work Phone: Start: 01-26-2024 End: 01-26-2024 Patient encounter procedure [facility] Physician [facility] Work Phone: Start: 01-20-2024 Non-patient / Non-visit [facility] Physician [facility] Work Phone: Start: 01-19-2024 End: 01-19-2024 ambulatory BLOSSOM A GLO Not Available Start: 10-29-2023 End: 10-29-2023 ambulatory MIRLANDE S RUSHER Not Available Start: 10-19-2023 End: 10-19-2023 ambulatory [facility] Work Phone: Start: 10-19-2023 End: 10-19-2023 Patient encounter procedure [facility] Physician [facility] Work Phone: Start: 10-12-2023 End: 10-12-2023 ambulatory MIRALNDE S RUSHER Not Available Start: 09-15-2023 End: 09-15-2023 ambulatory BLOSSOM A GLO Not Available Start: 09-06-2023 End: 09-06-2023 ambulatory MIRLANDE S RUSHER Not Available Start: 08-02-2023 End: 08-02-2023 ambulatory MIRLANDE S RUSHER Not Available Start: 07-07-2023 End: 07-07-2023 ambulatory BLOSSOM A GLO Not Available Start: 06-16-2023 Bamboo flowsheet Blossom cabrales STOCK PREPARATION OPERATOR Work Phone: [facility] Start: 06-16-2023 Bamboo flowsheet Blossom cabrales STOCK PREPARATION OPERATOR Work Phone: [facility] Start: 06-16-2023 End: 06-16-2023 Office outpatient visit 25 minutes Blossom Cody STOCK PREPARATION OPERATOR Work Phone: [facility] Comment on above: Diabetic polyneuropa thy associated with type 2 diabetes mellitus (CMS/HCC) (Primary Dx); Diabetic neuropathic arthropathy (CMS/HCC); Type 2 diabetes mellitus with neurological manifestation ([facility]/HCC); 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, sequela ([facility]); Ulcer of foot due to type 2 diabetes mellitus ([facility]/HCC); Vitamin B 12 deficiency; Hx of diabetic neuropathy; 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CMS/HCC); Hypertriglyceridemia ([facility]/HCC); 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, 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); Essential hypertension; Nasal congestion; Type 2 diabetes mellitus with diabetic autonomic neuropathy, with long-term current use of insulin ([facility]); half-way (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 (Z79.4); Acquired absence of other toe(s), unspecified side (Z89.429); Type 2 diabetes mellitus with diabetic neuropathy, with long-term current use of insulin ([facility]); Body mass index [BMI] 50.0-59.9, adult (Z68.43); Type 2 diabetes mellitus with foot ulcer, with long-term current use of insulin ([facility]); 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.49); Status post amputation of lesser toe, unspecified laterality ([facility]); Arthritis of left foot; Acquired hallux valgus of left foot; Type 2 diabetes mellitus with hyperglycemia, with long-term current use of insulin ([facility]); Morbid obesity ([facility]) Start: 06-16-2023 End: 06-16-2023 ambulatory BLOSSOM CODY Not Available Start: 06-15-2023 End: 06-15-2023 ambulatory Link Ortega Other [facility] Other Start: 06-15-2023 Telephone encounter Link Ortega [facility] Start: 06-09-2023 (DM) Diabetes Link Ortega [facility] Start: 06-09-2023 End: 06-10-2023 ambulatory MD Natalie Hernandez Work Phone: [employer] Other Start: 06-09-2023 End: 06-09-2023 Discharged Recurring MD Natalie Hernandez Work Phone: [facility] Work Phone: Start: 06-09-2023 End: 06-09-2023 Patient encounter procedure MD Natalie Hernandez Work Phone: [facility]- Start: 03-24-2023 End: 03-24-2023 ambulatory BLOSSOM CODY Not Available Start: 01-04-2023 (DM) Diabetes Tondra Mapus [facility] Start: 01-04-2023 End: 01-04-2023 ambulatory Tondra Mapus Other [facility] Other Start: 12-21-2022 End: 12-21-2022 ambulatory Tondra Mapus Other [employer] Other Start: 12-21-2022 Telephone encounter Tondra Mapus [facility] Start: 10-12-2022 [facility] Start: 10-06-2022 End: 10-07-2022 ambulatory [facility] Selina [facility] Facility:H1 Start: 10-01-2022 Encounter for preprocedural cardiovascular examination [facility] Selina [facility] Start: 10-01-2022 Encounter for preprocedural laboratory examination [facility] Start: 09-30-2022 End: 10-01-2022 ambulatory [facility] Selina [facility] Facility:H1 Start: 09-30-2022 End: 10-01-2022 Encounter for preprocedural laboratory examination [facility] Selina [facility] Facility:H1 Start: 09-15-2022 End: 09-16-2022 ambulatory NATANAEL Marks [facility] Facility:H1 Start: 09-10-2022 End: 09-10-2022 ambulatory Tondra Mapus Other [facility] Other Start: 09-10-2022 Telephone encounter Tondra Mapus [facility] Start: 08-24-2022 End: 08-25-2022 ambulatory NATANAEL Marks [facility] Facility:H1 Start: 08-10-2022 End: 08-10-2022 ambulatory Tondra Mapus Other [facility] Other Start: 08-10-2022 Telephone encounter Tondra Ortega [facility] Start: 08-03-2022 End: 08-04-[address] NATALIE HERNANDEZ Facility:H1 Start: 07-13-2022 End: 07-14-2022 ambulatory MARTELL NAVAS Facility:H1 Start: 06-30-2022 End: 07-01-2022 ambulatory PETER D HIGHLANDER Facility:H1 Start: 06-25-2022 (DM) Diabetes Tona Shannon [facility] Start: 06-25-2022 End: 06-25-2022 ambulatory Luisdra Shannon Other [facility] Other Start: 06-16-2022 End: 06-17-2022 ambulatory PETER [...] 02-18-2022 End: 02-18-2022 ambulatory Tondra Mapus Other [facility] Other Start: 02-18-2022 Telephone encounter Tondra Shannon [facility] Start: 02-09-2022 End: 02-10-2022 ambulatory PETER D HIGHLANDER Facility:H1 Start: 01-26-2022 End: 01-27-2022 ambulatory PETER D HIGHLANDER Facility:H1 Start: 01-13-2022 End: 01-14-2022 ambulatory PETER D HIGHLANDER Facility:H1 Start: 01-06-2022 (DM) Diabetes Tondra Shannon [facility] Start: 01-06-2022 End: 01-06-2022 ambulatory Tondra Mapus Other [facility] Other Start: 12-29-2021 End: 12-30-2021 ambulatory PETER [...] HIGHLANDER Facility:H1 Start: 10-30-2021 End: 10-31-2021 ambulatory [facility] Facility:H1 Start: 10-27-2021 End: 10-28-2021 ambulatory [facility] Facility:H1 Start: 10-23-2021 End: 10-24-2021 ambulatory [facility] Facility:H1 Start: 10-21-2021 End: 10-22-2021 ambulatory [facility] Facility:H1 Start: 10-20-2021 End: 10-21-2021 ambulatory [facility] Facility:H1 Procedures Date Procedure Procedure Detail Performing Clinician Amputation of toe Tondra Map us Other History of amputatio n of lesser toe Status post amputation of lesser toe, unspecified laterality ([facility]) Blossom Cody NP Work Phone: Plan of Treatment Date Care Activity Detail Author Start: 03-24-2024 Urine screening for protein Diabetes: Urine Protein Screening [facility] Start: 09-15-2023 End: 09-15-2023 Patient encounter procedure 09/15/2023 9:30 AM EDT Office Visit [facility] [address] [facility] [place] [phone] Blossom Cody NP [address] [facility] [place], [place] [id number] [facility] Start: 09-07-2023 Hemoglobin A1c measurement Diabetes: Hemoglobin A1C [facility] Start: 07-26-2023 Glaucoma screening Diabetes: Retinopathy Screening [facility] Start: 07-07-2023 End: 07-07-2023 Patient encounter procedure 07/07/2023 9:00 AM EST Office Visit [facility] [address] [facility] [place] [phone] [facility] Start: 06-16-2023 End: 06-16-2023 Patient encounter procedure 06/16/2023 11:00 AM EST Office Visit [facility] [address] [facility] [place] [phone] Blossom Cody NP [address] [place] [address] Diabetic polyneuropathy associated with type 2 diabetes [...] disorder (CMS/HCC); Morbid obesity (CMS/HCC); Hypertriglyceridemia (CMS/HCC) [facility] FM Comment on above: Diabetic [...] lic 2000 panel - Serum or Plasma [facility] Patient Education Diabetes and diet [facility] Work Phone: [facility] Immunizations Immunization Date Immunization Notes Care Provider Fa cility 03-24-2023 influenza, injectabl e, quadrivalent, preservative free Blossom Cody STOCK PREPARATION OPERATOR Work Phone: [facility] 08-26-2021 tetanus and diphther ia toxoids, adsorbed, preservative free, for adult use (5 Lf of tetanus toxoid and 2 Lf of diphtheria toxoid) Blossom Cody STOCK PREPARATION OPERATOR Work Phone: [facility] 03-28-2021 influenza, injectabl e, quadrivalent, preservative free Blossom Cody STOCK PREPARATION OPERATOR Work Phone: [facility] 02-13-2020 Influenza, injectabl e, Madin [place] Canine Kidney, preservative free, quadrivalent Blossom Glo STOCK PREPARATION OPERATOR Work Phone: [facility] 02-22-2019 influenza, injectabl e, quadrivalent, preservative free Blossom Glo STOCK PREPARATION OPERATOR Work Phone: [facility] 02-07-2018 influenza, injectabl e, quadrivalent, preservative free 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 2020 Self-pay [id number] 1979 Unknown [id number] 2.16.840.1.707032.3.579.2.59 3 1979 Unknown [id number] 2.16.840.1.353693.3.579.2.59 3 1979 Unknown [id number] 2.16.840.1.020740.3.579.2.59 3 1979 Unknown [id number] 2.16.840.1.920154.3.579.2.59 3 1979 Unknown [id number] 2.16.840.1.972246.3.579.2.59 3 1979 Unknown [id number] 2.16.840.1.321213.3.579.2.59 3 1979 Unknown [id number] 2.16.840.1.362472.3.579.2.59 3 1979 Unknown [id number] 2.16.840.1.213208.3.579.2.59 3 1979 Unknown [id number] 2.16.840.1.480018.3.579.2.59 3 1979 Unknown [id number] 2.16.840.1.407362.3.579.2.59 3 1979 Unknown [id number] 2.16.840.1.270940.3.579.2.59 3 1979 Unknown [id number] 2.16.840.1.499983.3.579.2.59 3 1979 Unknown [id number] 2.16.840.1.638961.3.579.2.59 3 1979 Unknown [id number] 2.16.840.1.938987.3.579.2.59 3 1979 Unknown [id number] 2.16.840.1.376206.3.579.2.59 3 1979 Unknown [id number] 2.16.840.1.682391.3.579.2.59 3 1979 Unknown [id number] 2.16.840.1.664822.3.579.2.59 3 1979 Unknown [id number] 2.16.840.1.512071.3.579.2.59 3 1979 Unknown [id number] 2.16.840.1.991459.3.579.2.59 3 1979 Unknown [id number] 2.16.840.1.288961.3.579.2.59 3 1979 Unknown [id number] 2.16.840.1.033730.3.579.2.59 3 1979 Unknown [id number] 2.16.840.1.965732.3.579.2.59 3 1979 Unknown [id number] 2.16.840.1.786641.3.579.2.59 3 1979 Unknown [id number] 2.16.840.1.039239.3.579.2.59 3 1979 Unknown [id number] 2.16.840.1.455695.3.579.2.59 3 1979 Unknown [id number] 2.16.840.1.109671.3.579.2.59 3 1979 Unknown [id number] 2.16.840.1.612428.3.579.2.59 3 1979 Unknown [id number] 2.16.840.1.785146.3.579.2.59 3 1979 Unknown [id number] 2.16.840.1.415626.3.579.2.59 3 1979 Unknown [id number] 2.16.840.1.389178.3.579.2.59 3 1979 Unknown [id number] 2.16.840.1.936172.3.579.2.59 3 1979 Unknown [id number] 2.16.840.1.122470.3.579.2.59 3 1979 Unknown [id number] 2.16.840.1.632492.3.579.2.59 3 1979 Unknown [id number] 2.16.840.1.913906.3.579.2.59 3 1979 Unknown [id number] 2.16.840.1.100586.3.579.2.59 3 1979 Unknown [id number] 2.16.840.1.665731.3.579.2.59 3 1979 Unknown [id number] 2.16.840.1.050070.3.579.2.59 3 1979 Unknown [id number] 2.16.840.1.423676.3.579.2.59 3 1979 Unknown [id number] 2.16.840.1.286623.3.579.2.59 3 1979 Unknown [id number] 2.16.840.1.907936.3.579.2.59 3 1979 Unknown [id number] 2.16.840.1.201158.3.579.2.59 3 1979 Unknown [id number] 2.16.840.1.391380.3.579.2.12 59 1979 Unknown [id number] 2.16.840.1.783666.3.579.2.12 59 1979 Unknown [id number] 2.16.840.1.708117.3.579.2.12 59 1979 Unknown [id number] 2.16.840.1.259220.3.579.2.12 59 1979 Unknown [id number] 2.16.840.1.571364.3.579.2.12 59 1979 Unknown [id number] 2.16.840.1.481480.3.579.2.12 59 1979 Unknown [id number] 2.16.840.1.971292.3.579.2.12 59 1979 Unknown [id number] 2.16.840.1.188742.3.579.2.12 59 1979 Unknown [id number] 2.16.840.1.747866.3.579.2.12 59 1959 Unknown [id number] 2.16.840.1.051133.19 1959 Unknown [id number] 2.16.840.1.494141.19 Unknown [id number] 2.16.840.1.564754.3.579.2.53 1 Social History Date Type Detail Facility Unknown if ever smoked [facility] Other Start: 03-23-2023 End: 06-17-2023 Sex Assigned At [facility] Healthcare Start: 12-21-2022 Tobacco smoking status [facility] Never smoked tobacco [facility] Start: 12-21-2022 Tobacco use and exposure Smokeless tobacco non-user [facility] Start: 05-18-2023 End: 06-17-2023 Alcohol intake Current drinker of alcohol (finding) [facility] Start: 03-23-2023 End: 05-18-2023 Alcohol intake [facility] Within the last year , have [...] Start: 1980 Sex Assigned At Male [facility] Start: 10-19-2023 Tobacco smoking status NHIS Ex-smoker (finding) [facility] Medical Equipment Procedure Code Equipment Code Equipment [...] diagnostic (OneTouch Verio test strips) Start: 10-19-2023 Blood Sugar Diagnostic (Onetouch Verio Test Strips) strip Start: 01-26-2024 Insulin Syringe-Needle U-100 (Bd Insulin Syringe Ultra-Fine) 1 mL 31 gauge x 5/16 syringe Start: 06-23-2023 Clinical Notes 05-10-2020 to 06-16-2023 Blossom Cody [...] sugars ranging from 120-170's. Sees Joshua in [place], next appt September 13 with them. Taking [...] so he doesn't have to go to [place]. I told him because his sugars are [...] hyperglycemia, with long-term current use of insulin ([facility]): As above Vitamin B 12 deficiency Comments: Last WNL at 351 Hx of diabetic neuropathy: Hx of 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CMS/HCC): Hx of Morbid obesity (CMS/[facility]) Comments: Enc healthy diet, watch sweets carbs. Balance diet with carb proteinm try to add vegeatbles, Enc physical activity as able Hypertriglyceridemia ([facility]/HCC) Comments: Last lipids 04/01 Chol 142, Trig [...] neuropathy, with long-term current use of insulin (CMS/HCC): Hx of half-way (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 (Z79.4): Hx of Acquired absence of other toe(s), unspecified side (Z89.429): Hx of Type 2 diabetes mellitus with diabetic neuropathy, with long-term current use of insulin ([facility]); Hx of Body mass index [BMI] 50.0-59.9, adult (Z68.43): See above. Discussed seeing weight loss provider or seeing someone about gastric bypass-pt declined both. 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 Carolineatro is tier 2 on formulary. Reviewed [...] progressive beta cell , concepts of basal/bolus/correct birttney insulin requirements. Basal: The goal is fasting [...] hyperglycemia, or diabetes medication issues. 6. Prescriptions: RamonaSpreadShoutnayapatrice ArdonBaldwin- syringes, pen needles, victoza sent. 06/09/23 7. 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 Feldman May, Cracked skin on feet (ICD-10 - R23.4) keep f/u with Dr. Feldman [facility] Other 08-28-2023 Evaluation note* Encounter Date Diagnosis [...] for Lispro/ozempic 0.5mg sent to [facility] in [place] 01/04/23 7. 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 Feldman today [facility] Other 05-30-2023 NotePROCEDURE: XR FOOT LT MIN [...] Electronically authenticated by: FRANCO FRANCES Date: 2022-10-06 14:13[facility]05-04-2023 Evaluation note* Encounter Date Diagnosis Assessment Notes Treatment Notes Treatment Clinical Notes September, Type 2 diabetes mellitus with hyperglycemia (ICD-10 - E11.65) [facility] Other 04-17-2023 NotePROCEDURE: XR FOOT LT MIN [...] authenticated by: FERN SOSA Date: 2022-08-24 12:46[id number]* Encounter Date Diagnosis Assessment Notes Treatment Notes Treatment Clinical Notes Jun, Type 2 diabetes mellitus with hyperglycemia (ICD-10 - E11.65) 1. Uncontrolled, a Type 2 diabetes with A1c of 8.2% 2. Blood glucose levels above target. Discussed with pt restarting ozempic, he had s/e from higher dose ozempic 1mg and concern with cost works at [employer]. Pt agreeable to starting sample ozempic 0.5mg [...] issues. 6. Prescriptions: Syringes/ozempic/st eglatro sent to [facility] in [place] 06/25/22 7. Prescriptions will not be filled [...] (hypertension) (ICD-10 - I10) on julissa Jun, half-way current use of insulin (ICD-10 - Z79.4) Jun, Vitamin B 12 deficiency (ICD-10 - E53.8) 12/28 vit b 12 423 at target Jun, BMI 50.0-59.9, adult (ICD-10 - Z68.43) [facility] Other [id number] NotePROCEDURE: XR ANKLE LT MIN 3 V, [...] Electronically authenticated by: GISSEL RUBIO Date: 2022-06-16 16:33[facility]02-07-2023 NotePROCEDURE: XR ANKLE LT MIN 3 [...] Electronically authenticated by: GISSEL RUBIO Date: 2022-06-16 16:33[facility]08-30-2022 Evaluation note* Encounter Date Diagnosis Assessment [...] (hypertension) (ICD-10 - I10) on julissa 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, 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, Vitamin B 12 deficiency (ICD-10 - E53.8) 12/28 vit b 12 423 at target Dec, BMI 45.0-49.9, adult (ICD-10 - Z68.42) 14 pound weight loss from last visit, continue with weight loss efforts [facility] Other 01-01-2021 History general Narrative - Reported* Type Description Date Medical History type II diabetes Medical History hypertension Medical History hyperlipidemia Medical History covid 05/2020 Surgical History Ulcer on left great toe X2 Surgical History Partial amputation Right great toe 01/2021 Surgical History All toes right foot amputated Hospitalization History Toe infection 2017 [facility] Other 01-01-2021 History general Narrative - Reported* Type Description Date Medical History type II diabetes Medical History hypertension Medical History hyperlipidemia Medical History covid 05/2020 Surgical History Ulcer on left great toe X2 Surgical History Partial amputation Right great toe 01/2021 Surgical History All toes right foot amputated Surgical History Left great toe corre ctive surgery with Dr. Feldman in [place] 10/2022 Hospitalization History Toe infection 2017 [facility] Other Chinp complaint+Reason for visit Narrative* Chief Complaint no meter Reason for Visit BMI 50.0-59.9, adult Dietary counseling and surveillance Hypertension Mixed hyperlipidemia Type 2 diabetes mellitus with hyperglycemia [facility] Work Phone: Chius complaint+Reason for visit Narrative* Chief Complaint meter Reason for Visit BMI 50.0-59.9, adult Dietary counseling and surveillance Hypertension Mixed hyperlipidemia Type 2 diabetes mellitus with hyperglycemia Wound of left foot Wound of right foot [facility] Work Phone: [facility]No [facility] Other Evaluation note* Diagnosis Diabetic polyneuropathy associated with type 2 diabetes mellitus ([facility])- Primary Diabetic neuropathic arthropathy ([facility]) Type II or unspecified type diabetes mellitus with neurological manifestations, not stated as uncontrolled Type 2 diabetes mellitus with neurological manifestation ([facility]) 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, sequela ([facility]) Ulcer of foot due to type 2 diabetes mellitus ([facility]) Vitamin B 12 deficiency Other B-complex deficiencies Hx of diabetic neuropathy 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[facility]) Lipoprotein deficiencies Hypertriglyceridemia ([facility]) Pure hyperglyceridemia 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, 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) Essential hypertension Unspecified essential hypertension Nasal congestion Other diseases of nasal cavity and sinuses Type 2 diabetes mellitus with diabetic autonomic neuropathy, with long-term current use of insulin ([facility]) half-way (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 (Z79.4) Acquired absence of other toe(s), unspecified side (Z89.429) Type 2 diabetes mellitus with diabetic neuropathy, with long-term current use of insulin ([facility]) Body mass index [BMI] 50.0-59.9, adult (Z68.43) Type 2 diabetes mellitus with foot ulcer, with long-term current use of insulin ([facility]) 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.49) Status post amputation of lesser toe, unspecified laterality ([facility]) Arthritis of left foot Acquired hallux valgus of left foot Type 2 diabetes mellitus with hyperglycemia, with long-term current use of insulin ([facility]) Morbid obesity ([facility]) Morbid obesity documented in this encounter [facility] HealthcareEvaluation noteNo assessment information availableUniversity [facility] Work Phone: Evaluation note* Diagnosis Onset Date Resolution Status BMI 50.0-59.9, adult acute Dietary counseling and surveillance acute Hypertension acute Mixed hyperlipidemia acute Type 2 diabetes mellitus with hyperglycemia [facility] Work Phone: Evaluation note* Diagnosis Onset Date Resolution Status BMI 50.0-59.9, adult acute Dietary counseling and surveillance acute Hypertension acute Mixed hyperlipidemia acute Type 2 diabetes mellitus with hyperglycemia acute Wound of left foot acute Wound of right foot [facility] Work Phone: Summary Purpose Family History Relationship Condition Age at Onset Recorded Date/T juan brother Diabetes mellitus Unknown father Malignant neoplasm Unknown Not Specified Diabetes mellitus Unknown Relationship Condition Age at Onset Recorded Date/T juan brother Diabetes mellitus Unknown father Malignant neoplasm Unknown mother Diabetes mellitus Unknown Advance Directives Advance Directive [...] section and content) DATE CREATED AUTHOR 08/27/2021 [facility] dical Specialist DATE CREATED AUTHOR AUTHOR'S ORGANIZ ATION 10/17/2022 [facility] DATE CREATED AUTHOR AUTHOR'S ORGANIZ ATION 08/14/2023 [facility] DATE CREATED AUTHOR AUTHOR'S ORGANIZ ATION 01/21/2024 [facility] dical Specialists [facility] REASON FOR VISIT (unrecogniz ed section and content) Reason Comments Diabetes Pt saw endocrinology last week and has his hgbA1c. HgbA1c was 8.2 and his results and notes are under media from that appt on 06-09-22 Care Teams (unrecognized sec tion and content) Team Status: Active Member Role Status Dates Natalie Hernandez MD Primary Care Provider Active Team Status: Active Member Role Status Dates Natalie Hernandez MD Primary Care Provider Active Start: January 20, 2024 Link Ortega APRN Attending Provider Active Start: January 20, 2024 Team Status: Inactive Member Role Status Dates Natalie Hernandez MD Primary Care Provider Active Start: January 26, 2024 End: January 26, 2024 Link Ortega APRN Attending Provider Active Start: January 26, 2024 End: January 26, 2024 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 Start Date End Date Natalie Hernandez MD [address] [place] [address] PCP - General Family Medicine 09/15/22 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 Start Date End Date Natalie Hernandez MD [address] [facility] [place] [address] PCP - General Family Medicine 09/15/22 Team [...] October 19, 2023 End: October 19, 2023 Team Status: Active Member Role Status Dates Natalie Hernandez MD Primary Care Provider Active Start: January 20, 2024 Link Ortega APRN Attending Provider Active Start: January 20, 2024 Team Status: Inactive Member Role Status Dates Natalie Hernandez MD Primary Care Provider Active Start: January 26, 2024 End: January 26, 2024 Link Ortega APRN Attending Provider Active Start: January 26, 2024 End: January 26, 2024 Goals (unrecognized section and content) Goals may [...] BE BASED ON THE PRIMARY CLINICAL RECORDS. [facility]. provides no warranty or guarantee of the accuracy or completeness of information in this document.
== END 2024-02-11 11:40 | disposition home or self-care (01) ==
LOC: WC 11:39
PROVIDERS: PCP Family Medicine; Visit Provider Podiatrist Foot & Ankle Surgery
DX: E11.621 Type 2 diabetes mellitus with foot ulcer (principal); L97.412 Non-pressure chronic ulcer of right heel and midfoot with fat layer exposed
CPT/HCPCS: 29445

== ENCOUNTER 2024-02-18 11:44 | Outpatient (OUT) | payer OTHER, SELFPAY ==
--- OUTSIDE RECORDS SUMMARY | 2024-02-18 11:47 | XMS_ITS | CCD ---
Author Organization [facility] CliniSyar Care Team Providers Care Dining Room Attendant Name Role Phone Link Ortega Unavailable NATANAEL [...] Damon Claros Attending Provider MD Natalie Hernandez [facility] Provider Natalie Hernandez [facility] Care Unavailable Damon Claros Attending Unavailable [...] sources) Long-term current use of insulin; Translations: [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 (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] 06-17-2023 Episodic Other aftercare (4 sources) intermodal dispatcher (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 Onset: 01-06-2022 Resolved: [...] 06-09-2023 HbA1c (Bld) [Mass fraction] 8.2 % [employer] Other Glucose - FINGER STICKon Glucose [Mass/Vol] 170 mg/dL [facility] Other HbA1c (Bld) [Mass fraction]o n 06-09-2023 A1C HEMOGLOBIN [employer] Other A1C HEMOGLOBINon 01-04-2023 HbA1c (Bld) [Mass fraction] 8.9 % [facility] Other Glucose - FINGER STICKon Glucose [Mass/Vol] 201 mg/dL [facility] Other HbA1c (Bld) [Mass fraction]o n 01-04-2023 A1C HEMOGLOBIN [place] [employer] Other PROF CHEM 8 (BAS METB)on Anion gap [Moles/Vol] 14.3 mmol/L Normal [facility] Comment on above: Performed By: #### B MP #### [facility] [address] [address] [address] Lauri Todd Calcium [Mass/Vol] 9.4 mg/dL Normal 8.5-10.1 [facility] Comment on above: Performed By: #### B MP #### [facility] [address] [address] [address] Lauri Todd Chloride [Moles/Vol] 101 mmol/L Normal 98-107 [facility] Comment on above: Performed By: #### B MP #### [facility] [address] [address] [address] Lauri Todd CO2 [Moles/Vol] 26.2 mmol/L Normal 21.0-32.0 [facility] Comment on above: Performed By: #### B MP #### [facility] [address] [address] [address] Lauri Todd Creatinine [Mass/Vol] 0.90 mg/dL Normal 0.70-1.30 [facility] Comment on above: Performed By: #### B MP #### [facility] [address] [address] [address] Lauri Todd EGFR-AF TOGOLESE >60 Normal >=60 [facility] Comment on above: Performed By: #### B MP #### [facility] [address] [address] [address] Lauri Todd EGFR-NON AF TOGOLESE >60 Normal >=60 [facility] Comment on above: Performed By: #### B MP #### [facility] [address] [address] [address] Lauri Todd Glucose [Mass/Vol] 146 mg/dL Critically high 74-106 [facility] Comment on above: Performed By: #### B MP #### [facility] [address] [address] [address] Lauri Todd Potassium [Moles/Vol] 4.5 mmol/L Normal 3.5-5.1 [facility] Comment on above: Performed By: #### B MP #### [facility] [address] [place], [place] [address] Dr. Lauri Todd Sodium [Moles/Vol] 137 mmol/L Normal 136-145 [facility] Comment on above: Performed By: #### B MP #### [facility] [address] [address] [address] Lauri Todd Urea nitrogen [Mass/Vol] 16.0 mg/dL Normal 7.0-18.0 [facility] Comment on above: Performed By: #### B MP #### [facility] [address] [address] [address] Lauri Todd Urea nitrogen/Creatinin e [Mass ratio] 17.8 mg/mg Normal [facility] Comment on above: Performed By: #### B MP #### [facility] [address] [address] [address] Lauri Todd A1C HEMOGLOBINon 06-25-2022 HbA1c (Bld) [Mass fraction] 8.2 % [employer] Other Glucose - FINGER STICKon Glucose [Mass/Vol] 180 mg/dL [employer] Other HbA1c (Bld) [Mass fraction]o n 06-25-2022 A1C HEMOGLOBIN [facility] [employer] Other XR FOOT LT MIN 3 VIEWSon [...] by: RAFAEL WHITAKER Date: 2022-05-25 11:52 Normal [facility] A1C HEMOGLOBINon 01-06-2022 HbA1c (Bld) [Mass fraction] 7 % [employer] Other Glucose - FINGER STICKon Glucose [Mass/Vol] 148 mg/dL [employer] Other HbA1c (Bld) [Mass fraction]o n 01-06-2022 A1C HEMOGLOBIN [place] [employer] Other Basic Metabolic Panelon 08-08 Anion gap [Moles/Vol] 20 mmol/L Normal 12-20 [facility] Specialist Comment on above: Result Comment: Effe ctive 05/15/2019 reference range changed. Performed By: #### B MP #### [facility] [address], [place] [id number] Calcium [Mass/Vol] 10.0 mg/dL Normal 8.6-10.2 [facility] Comment on above: Performed By: #### B MP #### [facility] [address], [place] [id number] Chloride [Moles/Vol] 100 mmol/L Normal 98-107 [facility] Comment on above: Performed By: #### B MP #### [facility] [address], [place] [id number] CO2 [Moles/Vol] 22 mmol/L Normal 20-31 [facility] Comment on above: Performed By: #### B MP #### [facility] [address], [place] [id number] Creatinine [Mass/Vol] 0.8 mg/dL Normal 0.7-1.4 [facility] Comment on above: Performed By: #### B MP #### [facility] [address], [place] [id number] eGFRAA 129 mL/min/1.73m2 Normal >60 [facility] Specialist Comment on above: Performed By: #### B MP #### [facility] [address], [place] [id number] eGFRNAA 107 mL/min/1.73m2 Normal >60 [facility] Specialist Comment on above: Performed By: #### B MP #### [facility] [address], [place] [id number] Glucose [Mass/Vol] 140 mg/dL High 65-99 [facility] [place] [facility] Comment on above: Result Comment: For FASTING Glucose --- ADA reference ranges: Normal 65-99 mg/dl Prediabetes 100-125 Diabetes >/= 126 Performed By: #### B MP #### [facility] [address], [place] [id number] Potassium [Moles/Vol] 4.3 mmol/L Normal 3.5-5.5 [facility] Comment on above: Performed By: #### B MP #### [facility] [address], [place] [id number] Sodium [Moles/Vol] 137 mmol/L Normal 135-146 [facility] [place] [facility] Comment on above: Performed By: #### B MP #### [facility] [address], [place] [id number] Urea nitrogen [Mass/Vol] 17 mg/dL Normal 7-25 [facility] Comment on above: Performed By: #### B MP #### [facility] [address], [place] [id number] Vital Signs Date Time Vital Sign Value Performing Clinician Facility 01-26-2024 09:59-0400 Body height 182.88 cm [facility] 01-26-2024 09:59-0400 Body mass index (BMI) [Ratio] 51.2 kg/m2 [facility] 01-26-2024 09:59-0400 Body weight 171.54 kg [facility] 01-26-2024 09:59-0400 Diastolic blood pressure 83 mm[Hg] [facility] 01-26-2024 09:59-0400 Heart rate 81 /min [facility] 01-26-2024 09:59-0400 Respiratory rate 18 /min [facility] 01-26-2024 09:59-0400 SaO2% (BldA) [Mass fraction] 94 % [facility] 01-26-2024 09:59-0400 Systolic blood pressure 155 mm[Hg] [facility] 10-19-2023 11:31-0400 Body height 182.88 cm [facility] 10-19-2023 11:31-0400 Body mass index (BMI) [Ratio] 51.7 kg/m2 [facility] 10-19-2023 11:31-0400 Body weight 172.87 kg [facility] 10-19-2023 11:31-0400 Diastolic blood pressure 83 mm[Hg] [facility] 10-19-2023 11:31-0400 Heart rate 74 /min [facility] 10-19-2023 11:31-0400 Respiratory rate 18 /min [facility] 10-19-2023 11:31-0400 SaO2% (BldA) [Mass fraction] 97 % [facility] 10-19-2023 11:31-0400 Systolic blood pressure 149 mm[Hg] [facility] 06-16-2023 11:33-0500 Diastolic blood pressure 84 mm[Hg] Blossom Cody MANAGER POKER Work Phone: [facility] 06-16-2023 11:33-0500 Systolic blood pressure 154 mm[Hg] Blossom Cody MANAGER POKER Work Phone: [facility] 06-16-2023 11:02-0500 Body mass index (BMI) [Ratio] 52.12 kg/m2 Blossom Cody MANAGER POKER Work Phone: [facility] 06-16-2023 11:02-0500 Body weight 171.91 kg Blossom Cody MANAGER POKER Work Phone: [facility] 06-16-2023 11:02-0500 Heart rate 92 /min Blossom Cody MANAGER POKER Work Phone: [facility] 06-09-2023 08:45-0500 Body height Tondra Mapus Other [employer] Other 06-09-2023 08:45-0500 Body height 182.88 cm MD Natalie Diggs Phone: [facility] 06-09-2023 08:45-0500 Body mass index (BMI) [Ratio] 51.33 kg/m2 Tondra Mapus Other [employer] Other 06-09-2023 08:45-0500 Body weight 171.69 kg Tondra Mapus Other [employer] Other 06-09-2023 08:45-0500 Body weight 171.68 kg MD Natalie Diggs Phone: [facility] 06-09-2023 08:45-0500 Diastolic blood pressure 80 mm[Hg] Tondra Mapus Other [facility] 06-09-2023 08:45-0500 Respiratory rate 18 /min Tondra Mapus Other [facility] Other 06-09-2023 08:45-0500 SaO2% (BldA) [Mass fraction] 94 % Tondra Mapus Other [facility] Other 06-09-2023 08:45-0500 Systolic blood pressure 148 mm[Hg] Tondra Mapus Other [facility] 01-04-2023 08:45-0400 Body height Tondra Mapus Other [employer] Other 01-04-2023 08:45-0400 Body mass index (BMI) [Ratio] 51.37 kg/m2 Tondra Mapus Other [facility] Other 01-04-2023 08:45-0400 Body weight 171.82 kg Tondra Mapus Other [facility] Other 01-04-2023 08:45-0400 Diastolic blood pressure 85 mm[Hg] Tondra Mapus Other [facility] Other 01-04-2023 08:45-0400 Respiratory rate 18 /min Tondra Mapus Other [facility] Other 01-04-2023 08:45-0400 SaO2% (BldA) [Mass fraction] 98 % Tondra Mapus Other [facility] Other 01-04-2023 08:45-0400 Systolic blood pressure 150 mm[Hg] Tondra Mapus Other [facility] Other 06-25-2022 09:45-0500 Body height Tondra Mapus Other [facility] Other 06-25-2022 09:45-0500 Body mass index (BMI) [Ratio] 51.14 kg/m2 Tondra Mapus Other [employer] Other 06-25-2022 09:45-0500 Body weight 171.05 kg Tondra Mapus Other [facility] Other 06-25-2022 09:45-0500 Diastolic blood pressure 80 mm[Hg] Tondra Mapus Other [facility] Other 06-25-2022 09:45-0500 Respiratory rate 18 /min Tondra Mapus Other [facility] Other 06-25-2022 09:45-0500 SaO2% (BldA) [Mass fraction] 95 % Tondra Mapus Other [facility] Other 06-25-2022 09:45-0500 Systolic blood pressure 139 mm[Hg] Tondra Mapus Other [facility] Other 01-06-2022 09:45-0400 Body height Tondra Mapus Other [facility] Other 01-06-2022 09:45-0400 Body mass index (BMI) [Ratio] 48.28 kg/m2 Tondra Mapus Other [facility] Other 01-06-2022 09:45-0400 Body weight 161.48 kg Tondra Mapus Other [facility] Other 01-06-2022 09:45-0400 Diastolic blood pressure 71 mm[Hg] Tondra Mapus Other [facility] Other 01-06-2022 09:45-0400 Respiratory rate 20 /min Tondra Mapus Other [facility] Other 01-06-2022 09:45-0400 SaO2% (BldA) [Mass fraction] 95 % Tondra Mapus Other [facility] Other 01-06-2022 09:45-0400 Systolic blood pressure 124 mm[Hg] Tondra Mapus Other [employer] Other Encounters Encounter Date Encounter Type Care Provider Facility Start: 01-26-2024 End: 01-26-2024 ambulatory [facility] Work Phone: Start: 01-26-2024 End: 01-26-2024 Patient encounter procedure [facility] Work Phone: Start: 01-20-2024 Non-patient / Non-visit [facility] Work Phone: Start: 01-19-2024 End: 01-19-2024 ambulatory BLOSSOM A GLO Not Available Start: 10-29-2023 End: 10-29-2023 ambulatory MIRLANDE S RUSHER Not Available Start: 10-19-2023 End: 10-19-2023 ambulatory [facility] Work Phone: Start: 10-19-2023 End: 10-19-2023 Patient encounter procedure [facility] Work Phone: Start: 10-12-2023 End: 10-12-2023 ambulatory MIRLANDE S RUSHER Not Available Start: 09-15-2023 End: 09-15-2023 ambulatory BLOSSOM A GLO Not Available Start: 09-06-2023 End: 09-06-2023 ambulatory MIRLANDE S RUSHER Not Available Start: 08-02-2023 End: 08-02-2023 ambulatory MIRLANDE S RUSHER Not Available Start: 07-07-2023 End: 07-07-2023 ambulatory BLOSSOM A GLO Not Available Start: 06-16-2023 Bamboo flowsheet Blossom cabrales MANAGER POKER Work Phone: [facility] Start: 06-16-2023 Bamboo flowsheet Blossom cabrales MANAGER POKER Work Phone: [facility] Start: 06-16-2023 End: 06-16-2023 Office outpatient visit 25 minutes Blossom Cody MANAGER POKER Work Phone: [facility] Comment on above: Diabetic polyneuropa thy associated with type 2 diabetes mellitus (CMS/HCC) (Primary Dx); Diabetic neuropathic arthropathy (CMS/HCC); Type 2 diabetes mellitus with neurological manifestation ([facility]/HCC); 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, sequela ([facility]); Ulcer of foot due to type 2 diabetes mellitus ([facility]/HCC); Vitamin B 12 deficiency; Hx of diabetic neuropathy; 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CMS/HCC); Hypertriglyceridemia ([facility]/HCC); 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, 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); Essential hypertension; Nasal congestion; Type 2 diabetes mellitus with diabetic autonomic neuropathy, with long-term current use of insulin ([facility]); intermodal dispatcher (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 (Z79.4); Acquired absence of other toe(s), unspecified side (Z89.429); Type 2 diabetes mellitus with diabetic neuropathy, with long-term current use of insulin ([facility]); Body mass index [BMI] 50.0-59.9, adult (Z68.43); Type 2 diabetes mellitus with foot ulcer, with long-term current use of insulin ([facility]); 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.49); Status post amputation of lesser toe, unspecified laterality ([facility]); Arthritis of left foot; Acquired hallux valgus of left foot; Type 2 diabetes mellitus with hyperglycemia, with long-term current use of insulin ([facility]); Morbid obesity ([facility]) Start: 06-16-2023 End: 06-16-2023 ambulatory BLOSSOM CODY Not Available Start: 06-15-2023 End: 06-15-2023 ambulatory Link Ortega Other [facility] Other Start: 06-15-2023 Telephone encounter Link Ortega [facility] Start: 06-09-2023 (DM) Diabetes Link Ortega [facility] Start: 06-09-2023 End: 06-10-2023 ambulatory MD Natalie Hernandez Work Phone: [employer] Other Start: 06-09-2023 End: 06-09-2023 Discharged Recurring MD Natalie Hernandez Work Phone: [facility] Work Phone: Start: 06-09-2023 End: 06-09-2023 Patient encounter procedure MD Natalie Hernandez Work Phone: [facility]- Start: 03-24-2023 End: 03-24-2023 ambulatory BLOSSOM CODY Not Available Start: 01-04-2023 (DM) Diabetes Tondra Mapus [facility] Start: 01-04-2023 End: 01-04-2023 ambulatory Tondra Mapus Other [facility] Other Start: 12-21-2022 End: 12-21-2022 ambulatory Tondra Mapus Other [facility] Other Start: 12-21-2022 Telephone encounter Tondra Mapus [facility] Start: 10-12-2022 [facility] Start: 10-06-2022 End: 10-07-2022 ambulatory [facility] [place] [facility] Facility:H1 Start: 10-01-2022 Encounter for preprocedural cardiovascular examination [facility] [place] [facility] Start: 10-01-2022 Encounter for preprocedural laboratory examination [facility] Start: 09-30-2022 End: 10-01-2022 ambulatory [facility] [place] [facility] Facility:H1 Start: 09-30-2022 End: 10-01-2022 Encounter for preprocedural laboratory examination [facility] [place] [facility] Facility:H1 Start: 09-15-2022 End: 09-16-2022 ambulatory NATANAEL Marks [facility] Facility:H1 Start: 09-10-2022 End: 09-10-2022 ambulatory Tondra Mapus Other [facility] Other Start: 09-10-2022 Telephone encounter Tondra Mapus [facility] Start: 08-24-2022 End: 08-25-2022 ambulatory NATANAEL Marks [facility] Facility:H1 Start: 08-10-2022 End: 08-10-2022 ambulatory Tondra Mapus Other [facility] Other Start: 08-10-2022 Telephone encounter Tondra Ortega [facility] Start: 08-03-2022 End: 08-04-[address] NATALIE HERNANDEZ Facility:H1 Start: 07-13-2022 End: 07-14-2022 ambulatory MARTELL NAVAS Facility:H1 Start: 06-30-2022 End: 07-01-2022 ambulatory PETER D HIGHLANDER Facility:H1 Start: 06-25-2022 (DM) Diabetes Tona Shannon [facility] Start: 06-25-2022 End: 06-25-2022 ambulatory Luisdra Shannon Other [facility] Other Start: 06-16-2022 End: 06-17-2022 ambulatory PETER [...] 02-18-2022 End: 02-18-2022 ambulatory Tondra Mapus Other [facility] Other Start: 02-18-2022 Telephone encounter Tondra Shannon [facility] Start: 02-09-2022 End: 02-10-2022 ambulatory PETER D HIGHLANDER Facility:H1 Start: 01-26-2022 End: 01-27-2022 ambulatory PETER D HIGHLANDER Facility:H1 Start: 01-13-2022 End: 01-14-2022 ambulatory PETER D HIGHLANDER Facility:H1 Start: 01-06-2022 (DM) Diabetes Tondra Shannon [facility] Start: 01-06-2022 End: 01-06-2022 ambulatory Tondra Mapus Other [facility] Other Start: 12-29-2021 End: 12-30-2021 ambulatory PETER [...] HIGHLANDER Facility:H1 Start: 10-30-2021 End: 10-31-2021 ambulatory [facility] Facility:H1 Start: 10-27-2021 End: 10-28-2021 ambulatory [facility] Facility:H1 Start: 10-23-2021 End: 10-24-2021 ambulatory [facility] Facility:H1 Start: 10-21-2021 End: 10-22-2021 ambulatory [facility] Facility:H1 Start: 10-20-2021 End: 10-21-2021 ambulatory [facility] Facility:H1 Procedures Date Procedure Procedure Detail Performing Clinician Amputation of toe Tondra Map us Other History of amputatio n of lesser toe Status post amputation of lesser toe, unspecified laterality ([facility]) Blossom Cody NP Work Phone: Plan of Treatment Date Care Activity Detail Author Start: 03-24-2024 Urine screening for protein Diabetes: Urine Protein Screening [facility] Start: 09-15-2023 End: 09-15-2023 Patient encounter procedure 09/15/2023 9:30 AM EDT Office Visit [facility] [address] [facility] [place] [phone] Blossom Cody NP [address] [facility] [place], [place] [id number] [facility] Start: 09-07-2023 Hemoglobin A1c measurement Diabetes: Hemoglobin A1C [facility] Start: 07-26-2023 Glaucoma screening Diabetes: Retinopathy Screening [facility] Start: 07-07-2023 End: 07-07-2023 Patient encounter procedure 07/07/2023 9:00 AM EST Office Visit [facility] [address] [facility] [place] [phone] [facility] Start: 06-16-2023 End: 06-16-2023 Patient encounter procedure 06/16/2023 11:00 AM EST Office Visit [facility] [address] [facility] [place] [phone] Blossom Cody NP [address] [place] [address] Diabetic polyneuropathy associated with type 2 diabetes [...] lic 2000 panel - Serum or Plasma [facility] Patient Education Diabetes and diet [facility] Work Phone: [facility] Immunizations Immunization Date Immunization Notes Care Provider Fa cility 03-24-2023 influenza, injectabl e, quadrivalent, preservative free Blossom Cody MANAGER POKER Work Phone: [facility] 08-26-2021 tetanus and diphther ia toxoids, adsorbed, preservative free, for adult use (5 Lf of tetanus toxoid and 2 Lf of diphtheria toxoid) Blossom Cody MANAGER POKER Work Phone: [facility] 03-28-2021 influenza, injectabl e, quadrivalent, preservative free Blossom Cody MANAGER POKER Work Phone: [facility] 02-13-2020 Influenza, injectabl e, Madin [place] Canine Kidney, preservative free, quadrivalent Blossom Glo MANAGER POKER Work Phone: [facility] 02-22-2019 influenza, injectabl e, quadrivalent, preservative free Blossom Glo MANAGER POKER Work Phone: [facility] 02-07-2018 influenza, injectabl e, quadrivalent, preservative free Blossom Glo MANAGER POKER Work Phone: [facility] Healthcare Payers Date Payer Category Payer Unknown [employer] [id number] 2022-Present [address] [address] [place] [address] [id number] 2020 Self-pay [id number] 1979 Unknown [id number] 2.16.840.1.413634.3.579.2.59 3 1979 Unknown [id number] 2.16.840.1.841378.3.579.2.59 3 1979 Unknown [id number] 2.16.840.1.946815.3.579.2.59 3 1979 Unknown [id number] 2.16.840.1.203850.3.579.2.59 3 1979 Unknown [id number] 2.16.840.1.953989.3.579.2.59 3 1979 Unknown [id number] 2.16.840.1.685226.3.579.2.59 3 1979 Unknown [id number] 2.16.840.1.324530.3.579.2.59 3 1979 Unknown [id number] 2.16.840.1.014929.3.579.2.59 3 1979 Unknown [id number] 2.16.840.1.295436.3.579.2.59 3 1979 Unknown [id number] 2.16.840.1.161988.3.579.2.59 3 1979 Unknown [id number] 2.16.840.1.968859.3.579.2.59 3 1979 Unknown [id number] 2.16.840.1.271923.3.579.2.59 3 1979 Unknown [id number] 2.16.840.1.073934.3.579.2.59 3 1979 Unknown [id number] 2.16.840.1.876177.3.579.2.59 3 1979 Unknown [id number] 2.16.840.1.317164.3.579.2.59 3 1979 Unknown [id number] 2.16.840.1.365642.3.579.2.59 3 1979 Unknown [id number] 2.16.840.1.388006.3.579.2.59 3 1979 Unknown [id number] 2.16.840.1.807670.3.579.2.59 3 1979 Unknown [id number] 2.16.840.1.534479.3.579.2.59 3 1979 Unknown [id number] 2.16.840.1.860878.3.579.2.59 3 1979 Unknown [id number] 2.16.840.1.608435.3.579.2.59 3 1979 Unknown [id number] 2.16.840.1.759306.3.579.2.59 3 1979 Unknown [id number] 2.16.840.1.393770.3.579.2.59 3 1979 Unknown [id number] 2.16.840.1.548645.3.579.2.59 3 1979 Unknown [id number] 2.16.840.1.794279.3.579.2.59 3 1979 Unknown [id number] 2.16.840.1.827524.3.579.2.59 3 1979 Unknown [id number] 2.16.840.1.141378.3.579.2.59 3 1979 Unknown [id number] 2.16.840.1.453264.3.579.2.59 3 1979 Unknown [id number] 2.16.840.1.974618.3.579.2.59 3 1979 Unknown [id number] 2.16.840.1.404446.3.579.2.59 3 1979 Unknown [id number] 2.16.840.1.283390.3.579.2.59 3 1979 Unknown [id number] 2.16.840.1.197418.3.579.2.59 3 1979 Unknown [id number] 2.16.840.1.140286.3.579.2.59 3 1979 Unknown [id number] 2.16.840.1.304210.3.579.2.59 3 1979 Unknown [id number] 2.16.840.1.048504.3.579.2.59 3 1979 Unknown [id number] 2.16.840.1.550772.3.579.2.59 3 1979 Unknown [id number] 2.16.840.1.024441.3.579.2.59 3 1979 Unknown [id number] 2.16.840.1.287255.3.579.2.59 3 1979 Unknown [id number] 2.16.840.1.069188.3.579.2.59 3 1979 Unknown [id number] 2.16.840.1.805559.3.579.2.59 3 1979 Unknown [id number] 2.16.840.1.900075.3.579.2.59 3 1979 Unknown [id number] 2.16.840.1.239513.3.579.2.12 59 1979 Unknown [id number] 2.16.840.1.771961.3.579.2.12 59 1979 Unknown [id number] 2.16.840.1.298128.3.579.2.12 59 1979 Unknown [id number] 2.16.840.1.318778.3.579.2.12 59 1979 Unknown [id number] 2.16.840.1.906863.3.579.2.12 59 1979 Unknown [id number] 2.16.840.1.655832.3.579.2.12 59 1979 Unknown [id number] 2.16.840.1.167735.3.579.2.12 59 1979 Unknown [id number] 2.16.840.1.168134.3.579.2.12 59 1979 Unknown [id number] 2.16.840.1.906880.3.579.2.12 59 1959 Unknown [id number] 2.16.840.1.256405.19 1959 Unknown [id number] 2.16.840.1.043338.19 Unknown [id number] 2.16.840.1.735270.3.579.2.53 1 Social History Date Type Detail Facility Unknown if ever smoked [employer] Other Start: 03-23-2023 End: 06-17-2023 Sex Assigned At [facility] Start: 12-21-2022 Tobacco smoking status [facility] Never smoked tobacco [facility] Start: 12-21-2022 Tobacco use and exposure Smokeless tobacco non-user [facility] Start: 05-18-2023 End: 06-17-2023 Alcohol [...] Start: 1980 Sex Assigned At Male F [facility] Start: 10-19-2023 Tobacco smoking status NHIS Ex-smoker (finding) [facility] Medical Equipment Procedure Code Equipment Code [...] so he doesn't have to go to [place]. I told him because his sugars are [...] hyperglycemia, with long-term current use of insulin ([facility]): As above Vitamin B 12 deficiency Comments: Last WNL at 351 Hx of diabetic neuropathy: Hx of 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CMS/HCC): Hx of Morbid obesity (CMS/[facility]) Comments: Enc healthy diet, watch sweets carbs. Balance diet with carb proteinm try to add vegeatbles, Enc physical activity as able Hypertriglyceridemia ([facility]/HCC) Comments: Last lipids 04/01 Chol 142, Trig [...] current use of insulin (CMS/HCC): Hx of 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 (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 (Z79.4): Hx of Acquired absence of other toe(s), unspecified side (Z89.429): Hx of Type 2 diabetes mellitus with diabetic neuropathy, with long-term current use of insulin ([facility]); Hx of Body mass index [BMI] 50.0-59.9, adult (Z68.43): See above. Discussed seeing weight loss provider or seeing someone about gastric bypass-pt declined both. He is not interested in this Type 2 diabetes mellitus with foot ulcer, with long-term current use of insulin ([facility]): Hx of (no ulcer at this time, bu lit recent amputation of 4th toe 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.49): Hx of Status post amputation of lesser toe, unspecified laterality ([facility]): 4th toe-has appt for follow up with Dr Feldman Arthritis of left foot: Hx of Acquired hallux valgus of left foot: Hx of Type 2 Diabetes mellitus with hyperglycemia with long line teamster current use of insulin ([facility]): Hx of Morbid obesity: See above documented in this encounter [facility] 06-15-2023 Evaluation note Encounter Date Diagnosis Assessment Notes Jun, Type 2 diabetes mellitus with hyperglycemia (ICD-10 - E11.65) [facility] Other 01-31-2024 Evaluation note* Encounter Date Diagnosis [...] hyperglycemia, or diabetes medication issues. 6. Prescriptions: [place]- syringes, pen needles, victoza sent. 06/09/23 7. 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 Feldman May, Cracked skin on feet (ICD-10 - R23.4) keep f/u with Dr. Feldman [facility] Other 08-28-2023 Evaluation note* Encounter Date Diagnosis [...] for Lispro/ozempic 0.5mg sent to [facility] in [place] 01/04/23 7. Prescriptions will not be filled [...] (hypertension) (ICD-10 - I10) on julissa Dec, 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 of insulin (ICD-10 - Z79.4) Dec, Vitamin B 12 deficiency (ICD-10 - E53.8) 12/30 vit b 12 335 at target Dec, BMI 50.0-59.9, adult (ICD-10 - Z68.43) see above Dec, Wound of foot (ICD-10 - S91.309A) pt has apt scheduled with Dr. Feldman today [facility] Other 05-30-2023 NotePROCEDURE: XR FOOT LT MIN [...] Electronically authenticated by: FRANCO FRANCES Date: 2022-10-06 14:13[facility]05-04-2023 Evaluation note* Encounter Date Diagnosis Assessment Notes Treatment Notes Treatment Clinical Notes September, Type 2 diabetes mellitus with hyperglycemia (ICD-10 - E11.65) [facility] Other 04-17-2023 NotePROCEDURE: XR FOOT LT MIN [...] authenticated by: FERN SOSA Date: 2022-08-24 12:46[id number]* Encounter Date Diagnosis Assessment Notes Treatment Notes Treatment Clinical Notes Jun, Type 2 diabetes mellitus with hyperglycemia (ICD-10 - E11.65) 1. Uncontrolled, a Type 2 diabetes with A1c of 8.2% 2. Blood glucose levels above target. Discussed with pt restarting ozempic, he had s/e from higher dose ozempic 1mg and concern with cost works at [employer]. Pt agreeable to starting sample ozempic 0.5mg [...] Prescriptions: Syringes/ozempic/st eglatro sent to [facility] in [place] 06/25/22 7. 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) Jun, Vitamin B 12 deficiency (ICD-10 - E53.8) 12/28 vit b 12 423 at target Jun, BMI 50.0-59.9, adult (ICD-10 - Z68.43) [facility] Other [id number] NotePROCEDURE: XR ANKLE LT MIN 3 V, [...] Electronically authenticated by: GISSEL RUBIO Date: 2022-06-16 16:33[facility]02-07-2023 NotePROCEDURE: XR ANKLE LT MIN [...] Electronically authenticated by: GISSEL RUBIO Date: 2022-06-16 16:33[facility]08-30-2022 Evaluation note* Encounter Date Diagnosis [...] (hypertension) (ICD-10 - I10) on julissa Dec, 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 of insulin (ICD-10 - Z79.4) Dec, Vitamin B 12 deficiency (ICD-10 - E53.8) 12/28 vit b 12 423 at target Dec, BMI 45.0-49.9, adult (ICD-10 - Z68.42) 14 pound weight loss from last visit, continue with weight loss efforts [facility] Other 01-01-2021 History general Narrative - Reported* Type Description Date Medical History type II diabetes Medical History hypertension Medical History hyperlipidemia Medical History covid 05/2020 Surgical History Ulcer on left great toe X2 Surgical History Partial amputation Right great toe 01/2021 Surgical History All toes right foot amputated Hospitalization History Toe infection 2017 [facility] [employer] Other 01-01-2021 History general Narrative - Reported* Type Description Date Medical History type II diabetes Medical History hypertension Medical History hyperlipidemia Medical History covid 05/2020 Surgical History Ulcer on left great toe X2 Surgical History Partial amputation Right great toe 01/2021 Surgical History All toes right foot amputated Surgical History Left great toe corre ctive surgery with Dr. Feldman in [place] 10/2022 Hospitalization History Toe infection 2017 [facility] Other Chivj complaint+Reason for visit Narrative* Chief Complaint no meter Reason for Visit BMI 50.0-59.9, adult Dietary counseling and surveillance Hypertension Mixed hyperlipidemia Type 2 diabetes mellitus with hyperglycemia [facility] Work Phone: Chipn complaint+Reason for visit Narrative* Chief Complaint meter Reason for Visit BMI 50.0-59.9, adult Dietary counseling and surveillance Hypertension Mixed hyperlipidemia Type 2 diabetes mellitus with hyperglycemia Wound of left foot Wound of right foot [facility] Work Phone: Evaluation noteNo InformationNortValley [facility] [employer] Other Evaluation note* Diagnosis Diabetic polyneuropathy associated with type 2 diabetes mellitus ([facility])- Primary Diabetic neuropathic arthropathy ([facility]) Type II or unspecified type diabetes mellitus with neurological manifestations, not stated as uncontrolled Type 2 diabetes mellitus with neurological manifestation ([facility]) 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, sequela ([facility]) Ulcer of foot due to type 2 diabetes mellitus ([facility]) Vitamin B 12 deficiency Other B-complex deficiencies Hx of diabetic neuropathy 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[facility]) Lipoprotein deficiencies Hypertriglyceridemia ([facility]) Pure hyperglyceridemia 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, 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) Essential hypertension Unspecified essential hypertension Nasal congestion Other diseases of nasal cavity and sinuses Type 2 diabetes mellitus with diabetic autonomic neuropathy, with long-term current use of insulin ([facility]) 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 (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 (Z79.4) Acquired absence of other toe(s), unspecified side (Z89.429) Type 2 diabetes mellitus with diabetic neuropathy, with long-term current use of insulin ([facility]) Body mass index [BMI] 50.0-59.9, adult (Z68.43) Type 2 diabetes mellitus with foot ulcer, with long-term current use of insulin ([facility]) 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.49) Status post amputation of lesser toe, unspecified laterality ([facility]) Arthritis of left foot Acquired hallux valgus of left foot Type 2 diabetes mellitus with hyperglycemia, with long-term current use of insulin ([facility]) Morbid obesity ([facility]) Morbid obesity documented in this encounter [facility] HealthcareEvaluation noteNo assessment information availableSelect [facility] Work Phone: Evaluation note* Diagnosis Onset Date Resolution Status BMI 50.0-59.9, adult acute Dietary counseling and surveillance acute Hypertension acute Mixed hyperlipidemia acute Type 2 diabetes mellitus with hyperglycemia [facility] Work Phone: Evaluation note* Diagnosis Onset Date Resolution Status BMI 50.0-59.9, adult acute Dietary counseling and surveillance acute Hypertension acute Mixed hyperlipidemia acute Type 2 diabetes mellitus with hyperglycemia acute Wound of left foot acute Wound of right foot [facility] Work Phone: Summary Purpose Family History [...] section and content) DATE CREATED AUTHOR 08/27/[address] [facility] dical Specialist DATE CREATED AUTHOR AUTHOR'S ORGANIZ ATION 10/17/2022 [facility] DATE CREATED AUTHOR AUTHOR'S ORGANIZ ATION 08/14/2023 [facility] DATE CREATED AUTHOR AUTHOR'S ORGANIZ ATION 01/21/[address] [facility] d[facility] Specialists [facility] REASON FOR VISIT (unrecogniz ed section and [...] January 26, 2024 End: January 26, 2024 Dining Room Attendant Relationship Specialty Start Date End Date Natalie Hernandez MD [address] [place] [address] PCP - General Family Medicine 09/15/22 Dining Room Attendant Relationship Specialty Start Date End Date Natalie Hernandez MD [address] [facility] [place] [address] PCP - General Family Medicine 09/15/22 Team [...] BE BASED ON THE PRIMARY CLINICAL RECORDS. [facility]. provides no warranty or guarantee of the accuracy or completeness of information in this document.
== END 2024-02-18 11:45 | disposition home or self-care (01) ==
LOC: WC 11:45
PROVIDERS: PCP Family Medicine; Visit Provider Podiatrist Foot & Ankle Surgery
DX: E11.621 Type 2 diabetes mellitus with foot ulcer (principal); L97.412 Non-pressure chronic ulcer of right heel and midfoot with fat layer exposed
CPT/HCPCS: 29445

== ENCOUNTER 2024-02-25 11:45 | Outpatient (OUT) | payer OTHER, SELFPAY ==
--- OUTSIDE RECORDS SUMMARY | 2024-02-25 11:47 | XMS_ITS | CCD ---
Author Organization [facility] CliniSyoh Care Team Providers Care Data Security Coordinator Name Role Phone Link Ortega Unavailable NATANAEL [...] Unavailable NATANAEL FELDMAN Attending Unavailable WONDERLY, DR NAATLIE Lozada Primary Care Unavailable NATANAEL FELDMAN Admitting Unavailable NATANAEL FELDMAN Attending Unavailable NATANAEL FELDAMN Consulting Unavailable WONDERLY, DR NATALIE Lozada Primary Care Unavailable HIGHLANDER, NATANAEL Marks Admitting Unavailable SHERMAN RAFAEL Consulting Unavailable HIGHLANDER, NATANAEL Marks Attending Unavailable WONDERLY, DR NATALIE Lozada Primary Care Unavailable HIGHLANDER, NATANAEL Marks Admitting Unavailable HIGHLANDER, NATANAEL Marks Attending Unavailable WONDERLY, DR NATALIE Lozada Primary Care Unavailable HIGHLANDER, ANTANAEL Marks Admitting Unavailable HIGHLANDER, NATANAEL Marks Attending [...] Care Provider MD Damon Claros Attending Provider [phone] MD Natalie Hernandez [facility] Provider Natalie Hernandez [facility] Care Unavailable Damon Claros Attending [...] sources) Long-term current use of insulin; Translations: [FCI (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] 06-17-2023 Episodic Other aftercare (4 sources) home maker (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 Onset: 01-06-2022 Resolved: [...] 06-09-2023 HbA1c (Bld) [Mass fraction] 8.2 % [facility] Other Glucose - FINGER STICKon Glucose [Mass/Vol] 170 mg/dL [facility] Other HbA1c (Bld) [Mass fraction]o n 06-09-2023 A1C HEMOGLOBIN [employer] Other A1C HEMOGLOBINon 01-04-2023 HbA1c (Bld) [Mass fraction] 8.9 % [facility] Other Glucose - FINGER STICKon Glucose [Mass/Vol] 201 mg/dL [facility] Other HbA1c (Bld) [Mass fraction]o n 01-04-2023 A1C HEMOGLOBIN [facility] Other PROF CHEM 8 (BAS METB)on Anion gap [Moles/Vol] 14.3 mmol/L Normal [facility] Comment on above: Performed By: #### B MP #### [facility] [address] [address] [address] Lauri Todd Calcium [Mass/Vol] 9.4 mg/dL Normal 8.5-10.1 [facility] Comment on above: Performed By: #### B MP #### [facility] [address] [address] [address] Lauri Todd Chloride [Moles/Vol] 101 mmol/L Normal 98-107 [facility] Comment on above: Performed By: #### B MP #### [facility] [address] [address] [address] Lauri Todd CO2 [Moles/Vol] 26.2 mmol/L Normal 21.0-32.0 [facility] Comment on above: Performed By: #### B MP #### [facility] [address] [address] [address] Lauri Todd Creatinine [Mass/Vol] 0.90 mg/dL Normal 0.70-1.30 [facility] Comment on above: Performed By: #### B MP #### [facility] [address] [address] [address] Lauri Todd EGFR-AF RUSSIAN >60 Normal >=60 [facility] Comment on above: Performed By: #### B MP #### [facility] [address] [address] [address] Lauri Todd EGFR-NON AF RUSSIAN >60 Normal >=60 [facility] Comment on above: Performed By: #### B MP #### [facility] [address] [address] [address] Lauri Todd Glucose [Mass/Vol] 146 mg/dL Critically high 74-106 [facility] Comment on above: Performed By: #### B MP #### [facility] [address] [address] [address] Lauri Todd Potassium [Moles/Vol] 4.5 mmol/L Normal 3.5-5.1 [facility] Comment on above: Performed By: #### B MP #### [facility] [address] [place], [place] [address] Dr. Larui Todd Sodium [Moles/Vol] 137 mmol/L Normal 136-145 [facility] Comment on above: Performed By: #### B MP #### [facility] [address] [address] [address] Lauri Todd Urea nitrogen [Mass/Vol] 16.0 mg/dL Normal 7.0-18.0 [facility] Comment on above: Performed By: #### B MP #### [facility] [address] [address] [address] Lauri Todd Urea nitrogen/Creatinin e [Mass ratio] 17.8 mg/mg Normal [facility] Comment on above: Performed By: #### B MP #### [facility] [address] [address] [address] Lauri Todd A1C HEMOGLOBINon 06-25-2022 HbA1c (Bld) [Mass fraction] 8.2 % [facility] Other Glucose - FINGER STICKon Glucose [Mass/Vol] 180 mg/dL [facility] Other HbA1c (Bld) [Mass fraction]o n 06-25-2022 A1C HEMOGLOBIN [facility] [employer] Other XR FOOT LT MIN 3 VIEWSon [...] WHITAKER Date: 2022-05-25 11:52 Normal [facility] A1C HEMOGLOBINon 01-06-2022 HbA1c (Bld) [Mass fraction] 7 % [facility] Other Glucose - FINGER STICKon Glucose [Mass/Vol] 148 mg/dL [facility] Other HbA1c (Bld) [Mass fraction]o n 01-06-2022 A1C HEMOGLOBIN [place] [employer] Other Basic Metabolic Panelon 08-08 Anion gap [Moles/Vol] 20 mmol/L Normal 12-20 [facility] Specialist Comment on above: Result Comment: Effe ctive 05/15/2019 reference range changed. Performed By: #### B MP #### [facility] [address] [place], [place] [id number] Calcium [Mass/Vol] 10.0 mg/dL Normal 8.6-10.2 [facility] Comment on above: Performed By: #### B MP #### [facility] [address] [place], [place] [id number] Chloride [Moles/Vol] 100 mmol/L Normal 98-107 [facility] Comment on above: Performed By: #### B MP #### [facility] [address] [place], [place] [id number] CO2 [Moles/Vol] 22 mmol/L Normal 20-31 [facility] Comment on above: Performed By: #### B MP #### [facility] [address] [place], [place] [id number] Creatinine [Mass/Vol] 0.8 mg/dL Normal 0.7-1.4 [facility] Comment on above: Performed By: #### B MP #### [facility] [address] [place], [place] [id number] eGFRAA 129 mL/min/1.73m2 Normal >60 [facility] Specialist Comment on above: Performed By: #### B MP #### [facility] [address] [place], [place] [id number] eGFRNAA 107 mL/min/1.73m2 Normal >60 [facility] Specialist Comment on above: Performed By: #### B MP #### [facility] [address] [place], [place] [id number] Glucose [Mass/Vol] 140 mg/dL High 65-[address] [facility] [place] [place] [employer] Comment on above: Result Comment: For FASTING Glucose --- ADA reference ranges: Normal 65-99 mg/dl Prediabetes 100-125 Diabetes >/= 126 Performed By: #### B MP #### [facility] [address] [place], [place] [id number] Potassium [Moles/Vol] 4.3 mmol/L Normal 3.5-5.5 [facility] Superintendent Comment on above: Performed By: #### B MP #### [facility] [address] [place], [place] [id number] Sodium [Moles/Vol] 137 mmol/L Normal 135-[address] [facility] [place] [employer] Comment on above: Performed By: #### B MP #### [facility] [address] [place], [place] [id number] Urea nitrogen [Mass/Vol] 17 mg/dL Normal 7-25 [facility] Superintendent Comment on above: Performed By: #### B MP #### [facility] [address] [place], [place] [id number] Vital Signs Date Time Vital Sign Value Performing Clinician Facility 01-26-2024 09:59-0400 Body height 182.88 cm [facility] 01-26-2024 09:59-0400 Body mass index (BMI) [Ratio] 51.2 kg/m2 [facility] 01-26-2024 09:59-0400 Body weight 171.54 kg [facility] 01-26-2024 09:59-0400 Diastolic blood pressure 83 mm[Hg] [facility] 01-26-2024 09:59-0400 Heart rate 81 /min [facility] 01-26-2024 09:59-0400 Respiratory rate 18 /min [facility] 01-26-2024 09:59-0400 SaO2% (BldA) [Mass fraction] 94 % [facility] 01-26-2024 09:59-0400 Systolic blood pressure 155 mm[Hg] [facility] 10-19-2023 11:31-0400 Body height 182.88 cm [facility] 10-19-2023 11:31-0400 Body mass index (BMI) [Ratio] 51.7 kg/m2 [facility] 10-19-2023 11:31-0400 Body weight 172.87 kg [facility] 10-19-2023 11:31-0400 Diastolic blood pressure 83 mm[Hg] [facility] 10-19-2023 11:31-0400 Heart rate 74 /min [facility] 10-19-2023 11:31-0400 Respiratory rate 18 /min [facility] 10-19-2023 11:31-0400 SaO2% (BldA) [Mass fraction] 97 % [facility] 10-19-2023 11:31-0400 Systolic blood pressure 149 mm[Hg] [facility] 06-16-2023 11:33-0500 Diastolic blood pressure 84 mm[Hg] Blossom Cody [employer] Work Phone: [facility] 06-16-2023 11:33-0500 Systolic blood pressure 154 mm[Hg] Blossom Cody [employer] Work Phone: [facility] 06-16-2023 11:02-0500 Body mass index (BMI) [Ratio] 52.12 kg/m2 Blossom Cody [employer] Work Phone: [facility] 06-16-2023 11:02-0500 Body weight 171.91 kg Blossom Cody [employer] Work Phone: [facility] 06-16-2023 11:02-0500 Heart rate 92 /min Blossom Cody [employer] Work Phone: [facility] 06-09-2023 08:45-0500 Body height Tondra Mapus Other [facility] Other 06-09-2023 08:45-0500 Body height 182.88 cm MD Natalie Diggs Phone: [facility] 06-09-2023 08:45-0500 Body mass index (BMI) [Ratio] 51.33 kg/m2 Tondra Mapus Other [facility] Other 06-09-2023 08:45-0500 Body weight 171.69 kg Tondra Mapus Other [facility] Other 06-09-2023 08:45-0500 Body weight 171.68 kg MD Natalie Diggs Phone: [facility] 06-09-2023 08:45-0500 Diastolic blood pressure 80 mm[Hg] Tondra Mapus Other [facility] 06-09-2023 08:45-0500 Respiratory rate 18 /min Tondra Mapus Other [facility] Other 06-09-2023 08:45-0500 SaO2% (BldA) [Mass fraction] 94 % Tondra Mapus Other [facility] Other 06-09-2023 08:45-0500 Systolic blood pressure 148 mm[Hg] Tondra Mapus Other [facility] 01-04-2023 08:45-0400 Body height Tondra Mapus Other [facility] Other 01-04-2023 08:45-0400 Body mass index (BMI) [Ratio] 51.37 kg/m2 Tondra Mapus Other [facility] Other 01-04-2023 08:45-0400 Body weight 171.82 kg Tondra Mapus Other [facility] Other 01-04-2023 08:45-0400 Diastolic blood pressure 85 mm[Hg] Tondra Mapus Other [facility] Other 01-04-2023 08:45-0400 Respiratory rate 18 /min Tondra Mapus Other [facility] Other 01-04-2023 08:45-0400 SaO2% (BldA) [Mass fraction] 98 % Tondra Mapus Other [facility] Other 01-04-2023 08:45-0400 Systolic blood pressure 150 mm[Hg] Tondra Mapus Other [facility] Other 06-25-2022 09:45-0500 Body height Tondra Mapus Other [facility] Other 06-25-2022 09:45-0500 Body mass index (BMI) [Ratio] 51.14 kg/m2 Tondra Mapus Other [facility] Other 06-25-2022 09:45-0500 Body weight 171.05 kg Tondra Mapus Other [facility] Other 06-25-2022 09:45-0500 Diastolic blood pressure 80 mm[Hg] Tondra Mapus Other [facility] Other 06-25-2022 09:45-0500 Respiratory rate 18 /min Tondra Mapus Other [facility] Other 06-25-2022 09:45-0500 SaO2% (BldA) [Mass fraction] 95 % Tondra Mapus Other [facility] Other 06-25-2022 09:45-0500 Systolic blood pressure 139 mm[Hg] Tondra Mapus Other [facility] Other 01-06-2022 09:45-0400 Body height Tondra Mapus Other [facility] Other 01-06-2022 09:45-0400 Body mass index (BMI) [Ratio] 48.28 kg/m2 Tondra Mapus Other [facility] Other 01-06-2022 09:45-0400 Body weight 161.48 kg Tondra Mapus Other [facility] Other 01-06-2022 09:45-0400 Diastolic blood pressure 71 mm[Hg] Tondra Mapus Other [facility] Other 01-06-2022 09:45-0400 Respiratory rate 20 /min Tondra Mapus Other [facility] Other 01-06-2022 09:45-0400 SaO2% (BldA) [Mass fraction] 95 % Tondra Mapus Other [facility] Other 01-06-2022 09:45-0400 Systolic blood pressure 124 mm[Hg] Tondra Mapus Other [facility] Other Encounters Encounter Date Encounter Type Care Provider Facility Start: 01-26-2024 End: 01-26-2024 ambulatory [facility] Work Phone: Start: 01-26-2024 End: 01-26-2024 Patient encounter procedure [facility] Work Phone: Start: 01-20-2024 Non-patient / Non-visit [facility] Work Phone: Start: 01-19-2024 End: 01-19-2024 ambulatory BLOSSOM A GLO Not Available Start: 10-29-2023 End: 10-29-2023 ambulatory MIRLANDE S RUSHER Not Available Start: 10-19-2023 End: 10-19-2023 ambulatory [facility] Work Phone: Start: 10-19-2023 End: 10-19-2023 Patient encounter procedure [facility] Work Phone: Start: 10-12-2023 End: 10-12-2023 ambulatory MIRLANDE S RUSHER Not Available Start: 09-15-2023 End: 09-15-2023 ambulatory BLOSSOM A GLO Not Available Start: 09-06-2023 End: 09-06-2023 ambulatory MIRLANDE S RUSHER Not Available Start: 08-02-2023 End: 08-02-2023 ambulatory MIRLANDE S RUSHER Not Available Start: 07-07-2023 End: 07-07-2023 ambulatory BLOSSOM A GLO Not Available Start: 06-16-2023 Bamboo flowsheet Blossom cabrales [employer] Work Phone: [facility] Start: 06-16-2023 Bamboo flowsheet Blossom cabrales [employer] Work Phone: [facility] Start: 06-16-2023 End: 06-16-2023 Office outpatient visit 25 minutes Blossom Cody [employer] Work Phone: [facility] Comment on above: Diabetic polyneuropa thy associated with type 2 diabetes mellitus (CMS/HCC) (Primary Dx); Diabetic neuropathic arthropathy (CMS/HCC); Type 2 diabetes mellitus with neurological manifestation ([facility]/HCC); 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, sequela ([facility]); Ulcer of foot due to type 2 diabetes mellitus ([facility]/HCC); Vitamin B 12 deficiency; Hx of diabetic neuropathy; 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CMS/HCC); Hypertriglyceridemia ([facility]/HCC); 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, 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); Essential hypertension; Nasal congestion; Type 2 diabetes mellitus with diabetic autonomic neuropathy, with long-term current use of insulin ([facility]); home maker (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 (Z79.4); Acquired absence of other toe(s), unspecified side (Z89.429); Type 2 diabetes mellitus with diabetic neuropathy, with long-term current use of insulin ([facility]); Body mass index [BMI] 50.0-59.9, adult (Z68.43); Type 2 diabetes mellitus with foot ulcer, with long-term current use of insulin ([facility]); 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.49); Status post amputation of lesser toe, unspecified laterality ([facility]); Arthritis of left foot; Acquired hallux valgus of left foot; Type 2 diabetes mellitus with hyperglycemia, with long-term current use of insulin ([facility]); Morbid obesity ([facility]) Start: 06-16-2023 End: 06-16-2023 ambulatory BLOSSOM CODY Not Available Start: 06-15-2023 End: 06-15-2023 ambulatory Link Ortega Other [facility] Other Start: 06-15-2023 Telephone encounter Link Ortega [facility] Start: 06-09-2023 (DM) Diabetes Link Ortega [facility] Start: 06-09-2023 End: 06-10-2023 ambulatory MD Natalie Hernandez Work Phone: [facility] Other Start: 06-09-2023 End: 06-09-2023 Discharged Recurring MD Natalie Hernandez Work Phone: [facility] Work Phone: Start: 06-09-2023 End: 06-09-2023 Patient encounter procedure MD Natalie Hernandez Work Phone: [facility] Start: 03-24-2023 End: 03-24-2023 ambulatory BLOSSOM CODY Not Available Start: 01-04-2023 (DM) Diabetes Tondra Mapus [facility] Start: 01-04-2023 End: 01-04-2023 ambulatory Tondra Mapus Other [facility] Other Start: 12-21-2022 End: 12-21-2022 ambulatory Tondra Mapus Other [facility] Other Start: 12-21-2022 Telephone encounter Tondra Mapus [facility] Start: 10-12-2022 [facility] Fac[facility] lity[facility]1 Start: 10-06-2022 End: 10-07-2022 ambulatory [facility] Selina [facility] Facility:H1 Start: 10-01-2022 Encounter for preprocedural cardiovascular examination [facility] Selina [facility] Start: 10-01-2022 Encounter for preprocedural laboratory examination [facility] Start: 09-30-2022 End: 10-01-2022 ambulatory [facility] [place] [facility] Facility:H1 Start: 09-30-2022 End: 10-01-2022 Encounter for preprocedural laboratory examination [facility] [place] [facility] Facility:H1 Start: 09-15-2022 End: 09-16-2022 ambulatory NATANAEL Marks [facility] Facility:H1 Start: 09-10-2022 End: 09-10-2022 ambulatory Tondra Mapus Other [facility] Other Start: 09-10-2022 Telephone encounter Tondra Mapus [facility] Start: 08-24-2022 End: 08-25-2022 ambulatory NATANAEL Marks [facility] Facility:H1 Start: 08-10-2022 End: 08-10-2022 ambulatory Tondra Mapus Other [facility] Other Start: 08-10-2022 Telephone encounter Tondra Ortega [facility] Start: 08-03-2022 End: 08-04-[address] NATALIE HERNANDEZ Facility:H1 Start: 07-13-2022 End: 07-14-2022 ambulatory MARTELL NAVAS Facility:H1 Start: 06-30-2022 End: 07-01-2022 ambulatory PETER D HIGHLANDER Facility:H1 Start: 06-25-2022 (DM) Diabetes Tona Shannon [facility] Start: 06-25-2022 End: 06-25-2022 ambulatory Luisdra Shannon Other [facility] Other Start: 06-16-2022 End: 06-17-2022 ambulatory PETER [...] 02-18-2022 End: 02-18-2022 ambulatory Tondra Mapus Other [facility] Other Start: 02-18-2022 Telephone encounter Tondra Shannon [facility] Start: 02-09-2022 End: 02-10-2022 ambulatory PETER D HIGHLANDER Facility:H1 Start: 01-26-2022 End: 01-27-2022 ambulatory PETER D HIGHLANDER Facility:H1 Start: 01-13-2022 End: 01-14-2022 ambulatory PETER D HIGHLANDER Facility:H1 Start: 01-06-2022 (DM) Diabetes Tondra Shannon [facility] Start: 01-06-2022 End: 01-06-2022 ambulatory Tondra Mapus Other [facility] Other Start: 12-29-2021 End: 12-30-2021 ambulatory PETER [...] HIGHLANDER Facility:H1 Start: 10-30-2021 End: 10-31-2021 ambulatory [facility] Facility:H1 Start: 10-27-2021 End: 10-28-2021 ambulatory [facility] Facility:H1 Start: 10-23-2021 End: 10-24-2021 ambulatory [facility] Facility:H1 Start: 10-21-2021 End: 10-22-2021 ambulatory [facility] Facility:H1 Start: 10-20-2021 End: 10-21-2021 ambulatory [facility] Facility:H1 Procedures Date Procedure Procedure Detail Performing Clinician Amputation of toe Tondra Map us Other History of amputatio n of lesser toe Status post amputation of lesser toe, unspecified laterality ([facility]) Blossom Cody NP Work Phone: Plan of Treatment Date Care Activity Detail Author Start: 03-24-2024 Urine screening for protein Diabetes: Urine Protein Screening [facility] Start: 09-15-2023 End: 09-15-2023 Patient encounter procedure 09/15/2023 9:30 AM EDT Office Visit [facility] [address] [facility] [place] [phone] Blossom Cody NP [address] [facility] [place], [place] [id number] [facility] Start: 09-07-2023 Hemoglobin A1c measurement Diabetes: Hemoglobin A1C [facility] Start: 07-26-2023 Glaucoma screening Diabetes: Retinopathy Screening [facility] Start: 07-07-2023 End: 07-07-2023 Patient encounter procedure 07/07/2023 9:00 AM EST Office Visit [facility] [address] [facility] [place] [phone] [facility] Start: 06-16-2023 End: 06-16-2023 Patient encounter procedure 06/16/2023 11:00 AM EST Office Visit [facility] [address] [facility] [place] [id number] Blossom Cody NP [address] [place] [address] Diabetic polyneuropathy associated with type 2 diabetes [...] panel - Serum or Plasma [facility] Patient Education Diabetes and diet [facility] Work Phone: [facility] Immunizations Immunization Date Immunization Notes Care Provider Fa cility 03-24-2023 influenza, injectabl e, quadrivalent, preservative free Blossom Cody [employer] Work Phone: [facility] 08-26-2021 tetanus and diphther ia toxoids, adsorbed, preservative free, for adult use (5 Lf of tetanus toxoid and 2 Lf of diphtheria toxoid) Blossom Cody [employer] Work Phone: [facility] 03-28-2021 influenza, injectabl e, quadrivalent, preservative free Blossom Cody [employer] Work Phone: [facility] 02-13-2020 Influenza, injectabl e, Madin [place] Canine Kidney, preservative free, quadrivalent Blossom Glo [employer] Work Phone: [facility] 02-22-2019 influenza, injectabl e, quadrivalent, preservative free Blossom Glo [employer] Work Phone: [facility] 02-07-2018 influenza, injectabl e, quadrivalent, preservative free Blossom Glo [employer] Work Phone: [facility] Healthcare Payers Date Payer Category Payer Unknown [employer] [id number] 2022-Present [address] [address] [place] [address] [id number] 2020 Self-pay [id number] 1979 Unknown [id number] 2.16.840.1.707262.3.579.2.59 3 1979 Unknown [id number] 2.16.840.1.871777.3.579.2.59 3 1979 Unknown [id number] 2.16.840.1.666613.3.579.2.59 3 1979 Unknown [id number] 2.16.840.1.954872.3.579.2.59 3 1979 Unknown [id number] 2.16.840.1.828406.3.579.2.59 3 1979 Unknown [id number] 2.16.840.1.108648.3.579.2.59 3 1979 Unknown [id number] 2.16.840.1.106816.3.579.2.59 3 1979 Unknown [id number] 2.16.840.1.876953.3.579.2.59 3 1979 Unknown [id number] 2.16.840.1.764075.3.579.2.59 3 1979 Unknown [id number] 2.16.840.1.220917.3.579.2.59 3 1979 Unknown [id number] 2.16.840.1.738268.3.579.2.59 3 1979 Unknown [id number] 2.16.840.1.901054.3.579.2.59 3 1979 Unknown [id number] 2.16.840.1.544694.3.579.2.59 3 1979 Unknown [id number] 2.16.840.1.835214.3.579.2.59 3 1979 Unknown [id number] 2.16.840.1.214918.3.579.2.59 3 1979 Unknown [id number] 2.16.840.1.690596.3.579.2.59 3 1979 Unknown [id number] 2.16.840.1.404226.3.579.2.59 3 1979 Unknown [id number] 2.16.840.1.520383.3.579.2.59 3 1979 Unknown [id number] 2.16.840.1.673347.3.579.2.59 3 1979 Unknown [id number] 2.16.840.1.878343.3.579.2.59 3 1979 Unknown [id number] 2.16.840.1.693349.3.579.2.59 3 1979 Unknown [id number] 2.16.840.1.970627.3.579.2.59 3 1979 Unknown [id number] 2.16.840.1.601214.3.579.2.59 3 1979 Unknown [id number] 2.16.840.1.978966.3.579.2.59 3 1979 Unknown [id number] 2.16.840.1.060138.3.579.2.59 3 1979 Unknown [id number] 2.16.840.1.050676.3.579.2.59 3 1979 Unknown [id number] 2.16.840.1.479296.3.579.2.59 3 1979 Unknown [id number] 2.16.840.1.560026.3.579.2.59 3 1979 Unknown [id number] 2.16.840.1.604767.3.579.2.59 3 1979 Unknown [id number] 2.16.840.1.550032.3.579.2.59 3 1979 Unknown [id number] 2.16.840.1.471924.3.579.2.59 3 1979 Unknown [id number] 2.16.840.1.208392.3.579.2.59 3 1979 Unknown [id number] 2.16.840.1.439650.3.579.2.59 3 1979 Unknown [id number] 2.16.840.1.229707.3.579.2.59 3 1979 Unknown [id number] 2.16.840.1.220138.3.579.2.59 3 1979 Unknown [id number] 2.16.840.1.755980.3.579.2.59 3 1979 Unknown [id number] 2.16.840.1.965815.3.579.2.59 3 1979 Unknown [id number] 2.16.840.1.427114.3.579.2.59 3 1979 Unknown [id number] 2.16.840.1.808731.3.579.2.59 3 1979 Unknown [id number] 2.16.840.1.267188.3.579.2.59 3 1979 Unknown [id number] 2.16.840.1.972496.3.579.2.59 3 1979 Unknown [id number] 2.16.840.1.251009.3.579.2.12 59 1979 Unknown [id number] 2.16.840.1.561272.3.579.2.12 59 1979 Unknown [id number] 2.16.840.1.979286.3.579.2.12 59 1979 Unknown [id number] 2.16.840.1.998464.3.579.2.12 59 1979 Unknown [id number] 2.16.840.1.615399.3.579.2.12 59 1979 Unknown [id number] 2.16.840.1.966425.3.579.2.12 59 1980 Unknown [id number] 1980 Unknown [id number] 59 1980 Unknown [id number] 59 1959 Unknown [id number] 1959 Unknown [id number] Unknown [id number] 1 Social History Date Type Detail Facility Unknown if ever smoked [facility] Other Start: 03-23-2023 End: 06-17-2023 Sex Assigned At [facility] Start: 12-21-2022 Tobacco smoking status [facility] Never smoked tobacco [facility] Start: 12-21-2022 Tobacco use and exposure Smokeless tobacco non-user [facility] Start: 05-18-2023 End: 06-17-2023 Alcohol intake [...] Start: 1980 Sex Assigned At Male F [facility] Start: 10-19-2023 Tobacco smoking status NHIS Ex-smoker (finding) [facility] Medical Equipment Procedure Code Equipment Code [...] so he doesn't have to go to [place]. I told him because his sugars are [...] hyperglycemia, with long-term current use of insulin ([facility]): As above Vitamin B 12 deficiency Comments: Last WNL at 351 Hx of diabetic neuropathy: Hx of 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CMS/HCC): Hx of Morbid obesity ([facility]) Comments: Enc healthy diet, watch sweets carbs. Balance diet with carb proteinm try to add vegeatbles, Enc physical activity as able Hypertriglyceridemia ([facility]/HCC) Comments: Last lipids 04/01 Chol 142, Trig [...] current use of insulin (CMS/HCC): Hx of FCI (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 (Z79.4): Hx of Acquired absence of other toe(s), unspecified side (Z89.429): Hx of Type 2 diabetes mellitus with diabetic neuropathy, with long-term current use of insulin ([facility]); Hx of Body mass index [BMI] 50.0-59.9, adult (Z68.43): See above. Discussed seeing weight loss provider or seeing someone about gastric bypass-pt declined both. He is not interested in this Type 2 diabetes mellitus with foot ulcer, with long-term current use of insulin ([facility]): Hx of (no ulcer at this time, bu lit recent amputation of 4th toe 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.49): Hx of Status post amputation of lesser toe, unspecified laterality ([facility]): 4th toe-has appt for follow up with Dr Feldman Arthritis of left foot: Hx of Acquired hallux valgus of left foot: Hx of Type 2 Diabetes mellitus with hyperglycemia 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 6. Prescriptions: [facility] [place]- syringes, pen needles, victoza sent. 06/09/23 7. 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 Feldman May, Cracked skin on feet (ICD-10 - R23.4) keep f/u with Dr. Feldman [facility] Other 08-28-2023 Evaluation note* Encounter Date Diagnosis [...] for Lispro/ozempic 0.5mg sent to [facility] in [place] 01/04/23 7. Prescriptions will not be filled [...] (hypertension) (ICD-10 - I10) on julissa Dec, FCI current use of insulin (ICD-10 - Z79.4) Dec, Vitamin B 12 deficiency (ICD-10 - E53.8) 12/30 vit b 12 335 at target Dec, BMI 50.0-59.9, adult (ICD-10 - Z68.43) see above Dec, Wound of foot (ICD-10 - S91.309A) pt has apt scheduled with Dr. Feldman today [facility] Other 05-30-2023 NotePROCEDURE: XR FOOT LT MIN [...] Electronically authenticated by: FRANCO FRANCES Date: 2022-10-06 14:13[facility]05-04-2023 Evaluation note* Encounter Date Diagnosis Assessment Notes Treatment Notes Treatment Clinical Notes September, Type 2 diabetes mellitus with hyperglycemia (ICD-10 - E11.65) [facility] Other 04-17-2023 NotePROCEDURE: XR FOOT LT MIN [...] authenticated by: FERN SOSA Date: 2022-08-24 12:46[id number]* Encounter Date Diagnosis Assessment Notes Treatment Notes Treatment Clinical Notes Jun, Type 2 diabetes mellitus with hyperglycemia (ICD-10 - E11.65) 1. Uncontrolled, a Type 2 diabetes with A1c of 8.2% 2. Blood glucose levels above target. Discussed with pt restarting ozempic, he had s/e from higher dose ozempic 1mg and concern with cost works at [employer]. Pt agreeable to starting sample ozempic 0.5mg [...] Prescriptions: Syringes/ozempic/st eglatro sent to [facility] in [place] 06/25/22 7. Prescriptions will not be filled [...] (hypertension) (ICD-10 - I10) on julissa Jun, home maker current use of insulin (ICD-10 - Z79.4) Jun, Vitamin B 12 deficiency (ICD-10 - E53.8) 12/28 vit b 12 423 at target Jun, BMI 50.0-59.9, adult (ICD-10 - Z68.43) [facility] Other [id number] NotePROCEDURE: XR ANKLE LT MIN 3 V, [...] Electronically authenticated by: GISSEL RUBIO Date: 2022-06-16 16:33[facility]02-07-2023 NotePROCEDURE: XR ANKLE LT MIN [...] Electronically authenticated by: GISSEL RUBIO Date: 2022-06-16 16:33[facility]08-30-2022 Evaluation note* Encounter Date Diagnosis [...] (hypertension) (ICD-10 - I10) on julissa Dec, FCI current use of insulin (ICD-10 - Z79.4) Dec, Vitamin B 12 deficiency (ICD-10 - E53.8) 12/28 vit b 12 423 at target Dec, BMI 45.0-49.9, adult (ICD-10 - Z68.42) 14 pound weight loss from last visit, continue with weight loss efforts [facility] Other 01-01-2021 History general Narrative - Reported* Type Description Date Medical History type II diabetes Medical History hypertension Medical History hyperlipidemia Medical History covid 05/2020 Surgical History Ulcer on left great toe X2 Surgical History Partial amputation Right great toe 01/2021 Surgical History All toes right foot amputated Hospitalization History Toe infection 2017 [facility] [employer] Other 01-01-2021 History general Narrative - Reported* Type Description Date Medical History type II diabetes Medical History hypertension Medical History hyperlipidemia Medical History covid 05/2020 Surgical History Ulcer on left great toe X2 Surgical History Partial amputation Right great toe 01/2021 Surgical History All toes right foot amputated Surgical History Left great toe corre ctive surgery with Dr. Feldman in [place] 10/2022 Hospitalization History Toe infection 2017 [facility] Other Chivd complaint+Reason for visit Narrative* Chief Complaint no meter Reason for Visit BMI 50.0-59.9, adult Dietary counseling and surveillance Hypertension Mixed hyperlipidemia Type 2 diabetes mellitus with hyperglycemia [facility] Work Phone: Chipr complaint+Reason for visit Narrative* Chief Complaint meter Reason for Visit BMI 50.0-59.9, adult Dietary counseling and surveillance Hypertension Mixed hyperlipidemia Type 2 diabetes mellitus with hyperglycemia Wound of left foot Wound of right foot [facility] Work Phone: Evaluation noteNo InformationNortRothman [facility] [employer] Other Evaluation note* Diagnosis Diabetic polyneuropathy associated with type 2 diabetes mellitus ([facility])- Primary Diabetic neuropathic arthropathy ([facility]) Type II or unspecified type diabetes mellitus with neurological manifestations, not stated as uncontrolled Type 2 diabetes mellitus with neurological manifestation ([facility]) 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, sequela ([facility]) Ulcer of foot due to type 2 diabetes mellitus ([facility]) Vitamin B 12 deficiency Other B-complex deficiencies Hx of diabetic neuropathy 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[facility]) Lipoprotein deficiencies Hypertriglyceridemia ([facility]) Pure hyperglyceridemia 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, 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) Essential hypertension Unspecified essential hypertension Nasal congestion Other diseases of nasal cavity and sinuses Type 2 diabetes mellitus with diabetic autonomic neuropathy, with long-term current use of insulin ([facility]) FCI (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 (Z79.4) Acquired absence of other toe(s), unspecified side (Z89.429) Type 2 diabetes mellitus with diabetic neuropathy, with long-term current use of insulin ([facility]) Body mass index [BMI] 50.0-59.9, adult (Z68.43) Type 2 diabetes mellitus with foot ulcer, with long-term current use of insulin ([facility]) 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.49) Status post amputation of lesser toe, unspecified laterality ([facility]) Arthritis of left foot Acquired hallux valgus of left foot Type 2 diabetes mellitus with hyperglycemia, with long-term current use of insulin ([facility]) Morbid obesity ([facility]) Morbid obesity documented in this encounter [facility] HealthcareEvaluation noteNo assessment information availableAshtabula [facility] Work Phone: Evaluation note* Diagnosis Onset Date Resolution Status BMI 50.0-59.9, adult acute Dietary counseling and surveillance acute Hypertension acute Mixed hyperlipidemia acute Type 2 diabetes mellitus with hyperglycemia [facility] Work Phone: Evaluation note* Diagnosis Onset Date Resolution Status BMI 50.0-59.9, adult acute Dietary counseling and surveillance acute Hypertension acute Mixed hyperlipidemia acute Type 2 diabetes mellitus with hyperglycemia acute Wound of left foot acute Wound of right foot [facility] Work Phone: Summary Purpose Family History Relationship [...] section and content) DATE CREATED AUTHOR 08/27/2021 [facility] dical Specialist DATE CREATED AUTHOR AUTHOR'S ORGANIZ ATION 10/17/2022 [facility] DATE CREATED AUTHOR AUTHOR'S ORGANIZ ATION 08/14/2023 [facility] DATE CREATED AUTHOR AUTHOR'S ORGANIZ ATION 01/21/2024 [facility] dical Specialists [facility] REASON FOR VISIT (unrecogniz ed section [...] January 26, 2024 End: January 26, 2024 Data Security Coordinator Relationship Specialty Start Date End Date Natalie Hernandez MD [address] [place] [address] PCP - General Family Medicine 09/15/22 Data Security Coordinator Relationship Specialty Start Date End Date Natalie Hernandez MD [address] [facility] [place] [address] PCP - General Family Medicine 09/15/22 Team [...] BE BASED ON THE PRIMARY CLINICAL RECORDS. [facility] ethology [facility]. provides no warranty or guarantee of the accuracy or completeness of information in this document.
== END 2024-02-25 11:46 | disposition home or self-care (01) ==
LOC: WC 11:45
PROVIDERS: PCP Family Medicine; Visit Provider Podiatrist Foot & Ankle Surgery
DX: E11.621 Type 2 diabetes mellitus with foot ulcer (principal); L97.412 Non-pressure chronic ulcer of right heel and midfoot with fat layer exposed
CPT/HCPCS: G0463

== ENCOUNTER 2024-03-02 14:02 | Outpatient (OUT) | payer OTHER, SELFPAY | END 2024-03-02 14:03 | disposition home or self-care (01) | LOC: WC 14:02 | PROVIDERS: PCP Family Medicine; Visit Provider Physician Assistant | DX: E11.621 Type 2 diabetes mellitus with foot ulcer (principal); L97.412 Non-pressure chronic ulcer of right heel and midfoot with fat layer exposed | CPT/HCPCS: G0463 ==

== ENCOUNTER 2024-03-15 14:00 | Outpatient (OUT) | payer OTHER, SELFPAY | END 2024-03-15 14:01 | disposition home or self-care (01) | LOC: WC 14:00 | PROVIDERS: PCP Family Medicine; Visit Provider Physician Assistant | DX: E11.621 Type 2 diabetes mellitus with foot ulcer (principal); L97.412 Non-pressure chronic ulcer of right heel and midfoot with fat layer exposed | CPT/HCPCS: 11043 ==

== ENCOUNTER 2024-03-21 14:50 | Outpatient (OUT) | payer OTHER, SELFPAY | END 2024-03-21 14:51 | disposition home or self-care (01) | LOC: WC 14:51 | PROVIDERS: PCP Family Medicine; Visit Provider Physician Assistant | DX: E11.621 Type 2 diabetes mellitus with foot ulcer (principal); L97.412 Non-pressure chronic ulcer of right heel and midfoot with fat layer exposed | CPT/HCPCS: G0463 ==

== ENCOUNTER 2024-04-12 12:02 | Outpatient (OUT) | payer OTHER, SELFPAY | END 2024-04-12 12:03 | disposition home or self-care (01) | LOC: WC 12:02 | PROVIDERS: PCP Family Medicine; Visit Provider Physician Assistant | DX: E11.621 Type 2 diabetes mellitus with foot ulcer (principal); L97.412 Non-pressure chronic ulcer of right heel and midfoot with fat layer exposed | CPT/HCPCS: 11043 ==

== ENCOUNTER 2024-04-25 11:52 | Outpatient (OUT) | payer OTHER, SELFPAY ==
--- NOTE | 2024-04-25 | XR_ITS ---
The [address] [address] Patient Name: JANETH MCKEON MRN: [id number] date: 1980 Sex: M Assigned Patient Location: Current Patient Location: [place] Accession/Order Number: [id number] Exam Date: 04/25/2024 11:58 Report Date: 04/26/2024 09:03 At the request of: MARTELL NAVAS Procedure: XR foot RT min 3V PROCEDURE: XR foot RT min 3V HISTORY: RIGHT FOOT PAIN COMPARISON: XR foot right 11/02/2023 FINDINGS: BONES:Prior amputation of the forefoot. Subtle, less well-defined cortex of the plantar surface of the midfoot. SOFT TISSUES:Prominent soft tissue swelling. EFFUSION:None visible. OTHER: Negative. XR/XR foot RT min 3V IMPRESSION: 1. Patient history states large wound involving the plantar midfoot. Deep to this area there is suggestive of slightly less well defined cortex which may indicate early osteomyelitis. Electronically authenticated by: GISSEL RUBIO Date: 04/26/2024 09:03
--- OUTSIDE RECORDS SUMMARY | 2024-04-25 12:03 | XMS_ITS | CCD ---
Author Organization [facility] Care Team Providers Care Fellmongery Worker Name Role Phone Link Ortega Unavailable [...] NATALIE Lozada Primary Care Unavailable HIGHLANDER, NATANAEL Mraks Attending Unavailable HIGHLANDER, [...] HIGHLANDER, NATANAEL Marks Attending Unavailable HIGHLANDER, NATANAEL aMrks Admitting Unavailable WEST, DR FRANCO Adamson Consulting [...] WONDERLY, DR NATALIE Lozada Primary Care Unavailable HIGHLCAROLYNN, NATANAEL Marks Admitting Unavailable Wonderly Natalie AVALOS Primary Care Provider MD Damon Claros Attending Provider [phone] MD Natalie Hernandez [facility] Provider [place], [facility] Unavailable Damon Claros Attending Unavailable Damon Claros Admitting Unavailable WonderNatalie ruiz MD Primary [facility] Provider Blossom Cody NP Unavailable [phone] BLOSSOM CODY Attending Unavailable BLOSSOM CODY Attending Unavailable MIRLANDE MOORE Attending Unavailable OSCAR, MIRLANDE Zhang Attending Unavailable GLOBLOSSOM TRIPP Attending Unavailable RUSMIRLANDE BARDALES S Attending Unavailable RUSHER, MIRLANDE S Attending Unavailable GLOBLOSSOM Attending Unavailable BLOSSOM CODY Attending Unavailable Medications Current Medications Medication Drug Class(es) Dates Sig (Normalized) Sig (Original) 0.25 MG, 0.5 MG Dose 3 ML semaglutide 0.68 MG/ML Pen Injector [Ozempic] (1 source) Start: 01-04-2023 inject 0.5 mg by subcutaneous injection every week Ozempic (0.25 or 0.5 MG/DOSE) 2 MG/3ML 0.5mg Subcutaneous once weekly for 84 days 28 Aug, 2023 Active aspirin 81 mg chewable tablet (20 sources) Platelet Aggregation Inhibitor, Nonsteroidal Anti-inflammatory Drug Start: 10-19-2023 take 81 mg by mouth once daily Aspirin Active 81 MG PO Daily October 19, 2023 12:00am take 1 tablet by mouth in the mo rning aspirin 81 MG EC tablet Take 1 tablet by mouth in the morning. Active take 1 tablet by janna th every twenty-four hours Aspirin 81 MG 1 tablet Orally Once a day Active atorvastatin 40 mg oral tablet (20 sources) HMG-CoA Reductase Inhibitor Start: 02-08-2023 End: 02-28-2024 take 1 tablet by mouth once daily atorvastatin (Lipitor) 40 MG tablet Indications: Pure hyperglyceridemia (CMS/HCC) Take 1 tablet (40 mg) by mouth Daily 90 tablet 3 02/28/2024 Active dapagliflozin 10 mg oral tablet (8 sources) Sodium-Glucose Cotransporter 2 Inhibitor Start: 10-19-2023 dapagliflozin (Farxiga) 10 MG 01/17/2024 Active ertugliflozin 15 mg oral tablet (12 sources) take 1 tablet by mouth in the morning Steglatro Take 1 tablet by mouth in the morning. 0 Active insulin glargine 100 unt/ml injectable solution (9 sources) Insulin Analog inject 44 [IU] by subcutaneous injection in the morning insulin glargine (Lantus) 100 UNIT/ML injection Inject 44 Units under the skin in the morning and 44 Units in the evening. Active Insulin Glargine-Yfgn (11 sources) Start: 10-19-2023 inject 44 [IU] by subcutaneous injection twice daily Insulin Glargine-Yfgn Active 44 UNIT SUBCUT Twice daily 100 October 19, 2023 12:27pm Start: 10-19-2023 End: [...] Lispro (15 sources) Insulin Analog Start: 01-26-20 24 Insulin Lispro Active 0 SUBCUT .COMPLEX 60 [...] Active insulin lispro (HumaLOG) 100 UNIT/ML injection (9 sources) insulin lispro ( HumaLOG) 100 UNIT/ML injection Inject 1 Units under the skin in the morning and 1 Units at noon and 1 Units in the evening. Inject with meals. Per ISS scale from endo. Active insulin lispro ( HumaLOG) 100 UNIT/ML [...] 3 ml liraglutide 6 mg/ml pen injector (10 sources) GLP-1 Receptor Agonist Start: 10-19-2023 inject 1.8 mg by subcutaneous injection once daily Victoza 18 MG/3ML injection Inject 1.8 mg under the skin Daily 10/27/2023 Active Start: 06-09-2023 inject 1.8 mg by sub cutaneous injection once daily Victoza 18 MG/3ML 1.8mg Subcutaneous daily for 84 days May, Active metFORMIN hydrochloride 500 mg oral tablet (20 sources) Biguanide Start: 07-22-2023 End: 07-22-2023 take 2 tablets by mouth twice daily Metformin Active 1000 MG PO Twice daily 360 July 22, 2023 2:45pm Free[employer] tablets Orally Twice a day; Note: Source Status: Taking; Refills: 3; Qty: 360 Tablet; Provider: Shannon Price take 2 tablets by mouth in the [facility] metFORMIN (Glucophage) 500 MG tablet Take 2 tablets by mouth in the morning and 2 tablets in the evening. Take with meals. Active OneTouch Verio - (8 sources) Start: [...] day) Subcutaneous BID for 90 day(s) Active urea 400 mg/ml topical cream (6 sources) Start: 12-01-2023 urea (Carmol) 40 % cream APPLY TO THE AFFECTED AREA ON BOTH FEET EVERY DAY DIRECTED 12/01/2023 Active Completed/Discontinued Medications Medication Drug Class(es) Dates [...] Once a day for 30 day(s) Not-Taking insulin glargine-yfgn (Semglee-yfgn) 100 UNIT/ML injection (2 sources) Start: 10-21-2023 End: 01-19-2024 insulin glargine-yfgn (Semglee-yfgn) 100 UNIT/ML injection INJECT 44 UNITS UNDER THE SKIN TWICE DAILY. MAX DAILY DOSE 100 UNITS 10/21/2023 01/19/2024 Discontinued (Duplicate order) lisinopril 30 mg oral tablet (20 sources) Angiotensin Converting Enzyme Inhibitor Start: 10-19-2023 End: 10-16-2024 take 1 tablet by mouth once daily lisinopril 30 MG tablet Indications: Essential hypertension (CMS/HCC) Take 1 tablet (30 mg) by mouth Daily 90 tablet 1 12/30/2023 04/19/2024 Discontinued (Reorder) Start: 06-16-2023 End: 06-16-2023 take 1 tablet [...] Documented Da te Episodic/Chronic Acquired foot deformities (15 sources) Hallux rigidus, unspecified foot; Translations: [Hallux rigidus, left foot] Onset: 05-13-2022 10-02-2022 Chronic Acquired foot deformities (1 source) Flat foot [pes planus] (acquired), left foot; Translations: [FLAT FOOT PES PLANUS ACQ LT FOOT] Onset: 10-07-2022 Episodic Administrative/social admission (8 sources) Dietary counseling and surveillance; Translations: [Patient encounter status] Onset: 01-06-2022 Resolved: 01-06-2022 Episodic Chronic ulcer of skin (20 sources) Non-pressure chronic ulcer of other part [...] [Vitamin D deficiency, unspecified] Chronic Nutritional deficiencies (19 sources) Deficiency of other specified B group vitamins; Translations: [Cobalamin deficiency] Onset: 01-06-2022 Resolved: 01-06-2022 Episodic Open wounds of extremities (18 sources) Traumatic amputation of toe; 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, initial encounter] Onset: 10-02-2022 10-02-2022 Chronic Open wounds of extremities (6 sources) Traumatic amputation of toe; Translations: [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, sequela] Onset: 11-03-2023 11-03-2023 Chronic Open wounds of extremities (5 sources) Unspecified open wound, unspecified foot, initial encounter; Translations: [Injury of left foot] Episodic Osteoarthritis (11 sources) Arthritis of left foot; Translations: [Primary osteoarthritis, left ankle and foot] Onset: 10-02-2022 10-02-2022 Chronic Other aftercare (11 sources) Long-term current use of insulin; Translations: [halfway (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] 06-17-2023 Episodic Other aftercare (4 sources) halfway (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 Onset: 01-06-2022 Resolved: [...] Chronic Other nutritional; endocrine; and metabolic disorders (13 sources) Lipoprotein deficiency disorder; Translations: [Lipoprotein deficiency] Onset: 10-02-2022 10-02-2022 Chronic Other nutritional; endocrine; and metabolic disorders (13 sources) Morbid obesity; Translations: [Morbid (severe) obesity due to excess calories] Onset: 10-02-2022 10-02-2022 Chronic Other skin disorders (5 sources) Nail [...] caused by tuberculosis or sexually transmitted disease) (18 sources) Osteomyelitis of right foot; Translations: [Osteomyelitis, unspecified] Onset: 10-02-2022 Resolved: 06-17-2023 10-02-2022 Chronic Other infections; including parasitic (9 sources) Personal history of other infectious and parasitic diseases; Translations: [History of COVID-19] Onset: 05-13-2020 Resolved: 06-17-2023 10-02-2022 Episodic Other non-traumatic joint disorders (1 source) Pain in left ankle and joints of left foot; Translations: [PAIN IN LEFT ANKLE] Onset: 06-24-2022 Episodic Other nutritional; endocrine; and metabolic disorders (11 sources) H/O: Disorder; Translations: [Personal history of other endocrine, nutritional and metabolic disease] Onset: 04-13-2018 Resolved: 06-17-2023 03-22-2023 Episodic Other skin disorders (5 sources) Corns and callosities; Translations: [CORNS AND CALLOSITIES] Onset: 12-15-2021 Episodic Superficial injury; contusion (4 sources) Blister (nonthermal), right foot, initial encounter; Translations: [BLISTER NONTHERMAL RT FOOT INITIAL] Onset: 12-29-2021 Episodic Results Test Name Value Interpretation Reference Range Facil ity A1C HEMOGLOBINon 06-09-2023 HbA1c (Bld) [Mass fraction] 8.2 % [email or web address] Other Glucose - FINGER STICKon Glucose [Mass/Vol] 170 mg/dL [facility] Other HbA1c (Bld) [Mass fraction]o n 06-09-2023 A1C HEMOGLOBIN [facility] Other A1C HEMOGLOBINon 01-04-2023 HbA1c (Bld) [Mass fraction] 8.9 % [email or web address] Other Glucose - FINGER STICKon Glucose [Mass/Vol] 201 mg/dL [facility] Other HbA1c (Bld) [Mass fraction]o n 01-04-2023 A1C HEMOGLOBIN [facility] Other PROF CHEM 8 (BAS METB)on Anion gap [Moles/Vol] 14.3 mmol/L Normal [facility] Comment on above: Performed By: #### B MP #### [facility] [address] [address] [address] Lauri Todd Calcium [Mass/Vol] 9.4 mg/dL Normal 8.5-10.1 [facility] Comment on above: Performed By: #### B MP #### [facility] [address] [address] [address] Lauri Todd Chloride [Moles/Vol] 101 mmol/L Normal 98-107 [facility] Comment on above: Performed By: #### B MP #### [facility] [address] [address] [address] Lauri Todd CO2 [Moles/Vol] 26.2 mmol/L Normal 21.0-32.0 [facility] Comment on above: Performed By: #### B MP #### [facility] [address] [address] [address] Lauri Todd Creatinine [Mass/Vol] 0.90 mg/dL Normal 0.70-1.30 [facility] Comment on above: Performed By: #### B MP #### [facility] [address] [address] [address] Lauri Todd EGFR-AF MICRONESIAN >60 Normal >=60 [facility] Comment on above: Performed By: #### B MP #### [facility] [address] [address] [address] Lauri Todd EGFR-NON AF MICRONESIAN >60 Normal >=60 [facility] Comment on above: Performed By: #### B MP #### [facility] [address] [place] [address] Dr. Lauri Todd Glucose [Mass/Vol] 146 mg/dL Critically high 74-106 T [facility] Comment on above: Performed By: #### B MP #### [facility] [address] [place] [address] Dr. Lauri Todd Potassium [Moles/Vol] 4.5 mmol/L Normal 3.5-5.1 [facility] Comment on above: Performed By: #### B MP #### [facility] [address] [place] [address] Dr. Lauri Todd Sodium [Moles/Vol] 137 mmol/L Normal 136-145 [facility] Comment on above: Performed By: #### B MP #### [facility] [address] [address] [address] Lauri Todd Urea nitrogen [Mass/Vol] 16.0 mg/dL Normal 7.0-18.0 [facility] Comment on above: Performed By: #### B MP #### [facility] [address] [place] [address] Dr. Lauri Todd Urea nitrogen/Creatinin e [Mass ratio] 17.8 mg/mg Normal [facility] Comment on above: Performed By: #### B MP #### [facility] [address] [address] [address] Lauri Todd A1C HEMOGLOBINon 06-25-2022 HbA1c (Bld) [Mass fraction] 8.2 % [email or web address] Other Glucose - FINGER STICKon Glucose [Mass/Vol] 180 mg/dL [facility] Other HbA1c (Bld) [Mass fraction]o n 06-25-2022 A1C HEMOGLOBIN [facility] Other XR FOOT LT MIN 3 VIEWSon [...] by: RAFAEL WHITAKER Date: 2022-05-25 11:52 Normal [facility] A1C HEMOGLOBINon 01-06-2022 HbA1c (Bld) [Mass fraction] 7 % [email or web address] Other Glucose - FINGER STICKon Glucose [Mass/Vol] 148 mg/dL [facility] Other HbA1c (Bld) [Mass fraction]o n 01-06-2022 A1C HEMOGLOBIN [facility] Other Basic Metabolic Panelon 04- Anion gap [Moles/Vol] 20 mmol/L Normal 12-20 [facility] Graphic User Interface Designer Comment on above: Result Comment: Effe ctive 05/15/2019 reference range changed. Performed By: #### B MP #### [facility] [address], [place] [id number] Calcium [Mass/Vol] 10.0 mg/dL Normal 8.6-10.2 [facility] Comment on above: Performed By: #### B MP #### [facility] [address], [place] [id number] Chloride [Moles/Vol] 100 mmol/L Normal 98-107 [facility] Comment on above: Performed By: #### B MP #### [facility] [address], [place] [id number] CO2 [Moles/Vol] 22 mmol/L Normal 20-31 [facility] Comment on above: Performed By: #### B MP #### [facility] [address], [place] [id number] Creatinine [Mass/Vol] 0.8 mg/dL Normal 0.7-1.4 [facility] Comment on above: Performed By: #### B MP #### [facility] [address], [place] [id number] eGFRAA 129 mL/min/1.73m2 Normal >60 [facility] Comment on above: Performed By: #### B MP #### [facility] [address], [place] [id number] eGFRNAA 107 mL/min/1.73m2 Normal >60 [facility] Comment on above: Performed By: #### B MP #### [facility] [address], [place] [id number] Glucose [Mass/Vol] 140 mg/dL High 65-99 [facility] Comment on above: Result Comment: For FASTING Glucose --- ADA reference ranges: Normal 65-99 mg/dl Prediabetes 100-125 Diabetes >/= 126 Performed By: #### B MP #### [facility] [address], [place] [id number] Potassium [Moles/Vol] 4.3 mmol/L Normal 3.5-5.5 [facility] Comment on above: Performed By: #### B MP #### [facility] [address], [place] [id number] Sodium [Moles/Vol] 137 mmol/L Normal 135-146 [facility] [place] Graphic User Interface Designer Comment on above: Performed By: #### B MP #### [facility] [address], [place] [id number] Urea nitrogen [Mass/Vol] 17 mg/dL Normal 7-25 [facility] Graphic User Interface Designer Comment on above: Performed By: #### B MP #### [facility] [address], [place] [id number] Vital Signs Date Time Vital Sign Value Performing Clinician Facility 04-19-2024 09:47-0500 Body mass index (BMI) [Ratio] 52.21 kg/m2 Blossom Cody ALTERATIONS TAILOR Work Phone: [facility] 04-19-2024 09:47-0500 Body weight 172.19 kg Blossom Cody ALTERATIONS TAILOR Work Phone: [facility] 04-19-2024 09:47-0500 Diastolic blood pressure 72 mm[Hg] Blossom Cody ALTERATIONS TAILOR Work Phone: [facility] 04-19-2024 09:47-0500 Heart rate 84 /min Blossom Cody ALTERATIONS TAILOR Work Phone: [facility] 04-19-2024 09:47-0500 Systolic blood pressure 128 mm[Hg] Blossom Cody ALTERATIONS TAILOR Work Phone: [facility] 01-26-2024 09:59-0400 Body height 182.88 cm [facility] 01-26-2024 09:59-0400 Body mass index (BMI) [Ratio] 51.2 kg/m2 [facility] 01-26-2024 09:59-0400 Body weight 171.54 kg [facility] 01-26-2024 09:59-0400 Diastolic blood pressure 83 mm[Hg] [facility] 01-26-2024 09:59-0400 Heart rate 81 /min [facility] 01-26-2024 09:59-0400 Respiratory rate 18 /min [facility] 01-26-2024 09:59-0400 SaO2% (BldA) [Mass fraction] 94 % [facility] 01-26-2024 09:59-0400 Systolic blood pressure 155 mm[Hg] [facility] 01-19-2024 11:00-0400 Body mass index (BMI) [Ratio] 51.82 kg/m2 Blossom Cody ALTERATIONS TAILOR Work Phone: [facility] 01-19-2024 11:00-0400 Body weight 170.91 kg Blossom Lozoyael ALTERATIONS TAILOR Work Phone: [facility] 01-19-2024 11:00-0400 Diastolic blood pressure 78 mm[Hg] Blossom Lozoyael ALTERATIONS TAILOR Work Phone: [facility] 01-19-2024 11:00-0400 Heart rate 84 /min Blossom Lozoyael ALTERATIONS TAILOR Work Phone: [facility] 01-19-2024 11:00-0400 Systolic blood pressure 136 mm[Hg] Blossom Lozoyael ALTERATIONS TAILOR Work Phone: [facility] 10-19-2023 11:31-0400 Body height 182.88 cm [facility] 10-19-2023 11:31-0400 Body mass index (BMI) [Ratio] 51.7 kg/m2 [facility] 10-19-2023 11:31-0400 Body weight 172.87 kg [facility] 10-19-2023 11:31-0400 Diastolic blood pressure 83 mm[Hg] [facility] 10-19-2023 11:31-0400 Heart rate 74 /min [facility] 10-19-2023 11:31-0400 Respiratory rate 18 /min [facility] 10-19-2023 11:31-0400 SaO2% (BldA) [Mass fraction] 97 % [facility] 10-19-2023 11:31-0400 Systolic blood pressure 149 mm[Hg] [facility] 06-16-2023 11:33-0500 Diastolic blood pressure 84 mm[Hg] Blossom Glo ALTERATIONS TAILOR Work Phone: [facility] 06-16-2023 11:33-0500 Systolic blood pressure 154 mm[Hg] Blossom Cody ALTERATIONS TAILOR Work Phone: [facility] 06-16-2023 11:02-0500 Body mass index (BMI) [Ratio] 52.12 kg/m2 Blossom Cody ALTERATIONS TAILOR Work Phone: [facility] 06-16-2023 11:02-0500 Body weight 171.91 kg Blossom Cody ALTERATIONS TAILOR Work Phone: [facility] 06-16-2023 11:02-0500 Heart rate 92 /min Blossom Cody ALTERATIONS TAILOR Work Phone: [facility] 06-09-2023 08:45-0500 Body height Tondra Mapus Other [facility] [address] [employer] Other 06-09-2023 08:45-0500 Body height 182.88 cm MD Natalie Hernandez Work Phone: [facility] 06-09-2023 08:45-0500 Body mass index (BMI) [Ratio] 51.33 kg/m2 Tondra Mapus Other [facility] [address] [employer] Other 06-09-2023 08:45-0500 Body weight 171.69 kg Tondra Mapus Other [facility] [address] [employer] Other 06-09-2023 08:45-0500 Body weight 171.68 kg MD Natalie Hernandez Work Phone: [facility] 06-09-2023 08:45-0500 Diastolic blood pressure 80 mm[Hg] Tondra Mapus Other [facility] 06-09-2023 08:45-0500 Respiratory rate 18 /min Tondra Mapus Other [facility] [address] [employer] Other 06-09-2023 08:45-0500 SaO2% (BldA) [Mass fraction] 94 % Tondra Mapus Other [email or web address] Other 06-09-2023 08:45-0500 Systolic blood pressure 148 mm[Hg] Tondra Mapus Other [facility] 01-04-2023 08:45-0400 Body height Tondra Mapus Other [email or web address] Other 01-04-2023 08:45-0400 Body mass index (BMI) [Ratio] 51.37 kg/m2 Tondra Mapus Other [email or web address] Other 01-04-2023 08:45-0400 Body weight 171.82 kg Tondra Mapus Other [email or web address] Other 01-04-2023 08:45-0400 Diastolic blood pressure 85 mm[Hg] Tondra Mapus Other [email or web address] Other 01-04-2023 08:45-0400 Respiratory rate 18 /min Tondra Mapus Other [email or web address] Other 01-04-2023 08:45-0400 SaO2% (BldA) [Mass fraction] 98 % Tondra Mapus Other [email or web address] Other 01-04-2023 08:45-0400 Systolic blood pressure 150 mm[Hg] Tondra Mapus Other [email or web address] Other 06-25-2022 09:45-0500 Body height Tondra Mapus Other [email or web address] Other 06-25-2022 09:45-0500 Body mass index (BMI) [Ratio] 51.14 kg/m2 Tondra Mapus Other [email or web address] Other 06-25-2022 09:45-0500 Body weight 171.05 kg Tondra Mapus Other [email or web address] Other 06-25-2022 09:45-0500 Diastolic blood pressure 80 mm[Hg] Tondra Mapus Other [email or web address] Other 06-25-2022 09:45-0500 Respiratory rate 18 /min Tondra Mapus Other [email or web address] Other 06-25-2022 09:45-0500 SaO2% (BldA) [Mass fraction] 95 % Tondra Mapus Other [email or web address] Other 06-25-2022 09:45-0500 Systolic blood pressure 139 mm[Hg] Tondra Mapus Other [email or web address] Other 01-06-2022 09:45-0400 Body height Tondra Mapus Other [email or web address] Other 01-06-2022 09:45-0400 Body mass index (BMI) [Ratio] 48.28 kg/m2 Tondra Mapus Other [email or web address] Other 01-06-2022 09:45-0400 Body weight 161.48 kg Tondra Mapus Other [email or web address] Other 01-06-2022 09:45-0400 Diastolic blood pressure 71 mm[Hg] Tondra Mapus Other [email or web address] Other 01-06-2022 09:45-0400 Respiratory rate 20 /min Tondra Mapus Other [email or web address] Other 01-06-2022 09:45-0400 SaO2% (BldA) [Mass fraction] 95 % Link Ortega Other [email or web address] Other 01-06-2022 09:45-0400 Systolic blood pressure 124 mm[Hg] Link Ortega Other [email or web address] Other Encounters Encounter Date Encounter Type Care Provider Facility Start: 04-19-2024 End: 04-19-2024 Bamboo 5gigheet Blossom Cody ALTERATIONS TAILOR Work Phone: [facility] Start: 04-19-2024 End: 04-19-2024 Bamboo 5gigheet Blossom Cody ALTERATIONS TAILOR Work Phone: [facility] Start: 04-19-2024 End: 04-19-2024 Patient encounter status Blossom Cody ALTERATIONS TAILOR Work Phone: [facility] Start: 04-19-2024 End: 04-19-2024 Periodic preventive med est patient 40-64yrs Blossom Cody ALTERATIONS TAILOR Work Phone: [facility] Comment on above: Diabetic polyneuropa thy associated with type 2 diabetes mellitus ([facility]) (Primary Dx); Wellness examination; Type 2 diabetes mellitus with neurological manifestation ([facility]); Essential hypertension; 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, subsequent encounter ([facility]); Dyslipidemia ([facility] Hypertriglyceridemia ([facility]); Poorly controlled diabetes mellitus ([facility]); Type 2 diabetes mellitus with hyperglycemia, with long-term current use of insulin ([facility]); Amputation of toe, traumatic, left, sequela ([facility]); Essential hypertension; Diabetic autonomic neuropathy associated with type 2 diabetes mellitus ([facility]); Acquired hallux valgus, unspecified laterality; Morbid obesity ([facility]); Vitamin B 12 deficiency; 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) Start: 04-19-2024 End: 04-19-2024 ambulatory BLOSSOM CODY Not Available Start: 02-28-2024 End: 02-28-2024 Lenard Hernandez MD Work Phone: [facility] Comment on above: Pure hyperglyceridem ia (CMS/HCC) Start: 01-26-2024 End: 01-26-2024 ambulatory [facility] Work Phone: Start: 01-26-2024 End: 01-26-2024 [facility] encounter [facility]: Start: 01-20-2024 Non-patient / Non-visit [facility] Work Phone: Start: 01-19-2024 End: 01-19-2024 Office outpatient visit 25 minutes Blossom Cody ALTERATIONS TAILOR Work Phone: [facility] Comment on above: Diabetic polyneuropa thy associated with type 2 diabetes mellitus ([facility]/HCC) (Primary Dx); Type 2 diabetes mellitus with neurological manifestation ([facility]/HCC); Essential hypertension; 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, subsequent encounter ([facility]); Type 2 diabetes mellitus with hyperglycemia, with long-term current use of insulin ([facility]); Dyslipidemia ([facility]/HCC); Hypertriglyceridemia ([facility]/HCC); Amputation of toe, traumatic, left, sequela ([facility]/HCC); Vitamin B 12 deficiency; Pure hyperglyceridemia ([facility]/HCC) Start: 01-19-2024 End: 01-19-2024 ambulatory BLOSSOM CODY Not Available Start: 10-29-2023 End: 10-29-2023 ambulatory MIRLANDE MOORE Not Available Start: 10-19-2023 End: 10-19-2023 ambulatory [facility] Work Phone: Start: 10-19-2023 End: 10-19-2023 Patient encounter procedure [facility] Work Phone: Start: 10-12-2023 End: 10-12-2023 ambulatory MIRLANDE MOORE Not Available Start: 09-15-2023 End: 09-15-2023 ambulatory BLOSSOM CODY Not Available Start: 09-06-2023 End: 09-06-2023 ambulatory MILRANDE MOORE Not Available Start: 08-02-2023 End: 08-02-2023 ambulatory MIRLANDE MOORE Not Available Start: 07-07-2023 End: 07-07-2023 ambulatory BLOSSOM Kong GLO Not Available Start: 06-16-2023 Bamboo flowsheet Blossom cabrales [employer] Work Phone: [facility] Start: 06-16-2023 Bamboo flowsheet Blossom cabrales [employer] Work Phone: [facility] Start: 06-16-2023 End: 06-16-2023 Office outpatient visit 25 minutes Blossom Cody [employer] Work Phone: [facility] Comment on above: Diabetic polyneuropa thy associated with type 2 diabetes mellitus ([facility]/HCC) (Primary Dx); Diabetic neuropathic arthropathy ([facility]); Type 2 diabetes mellitus with neurological manifestation ([facility]); 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, sequela ([facility]); Ulcer of foot due to type 2 diabetes mellitus ([facility]/HCC); Vitamin B 12 deficiency; Hx of diabetic neuropathy; 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CMS/HCC); Hypertriglyceridemia (CMS/HCC); 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, 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); Essential hypertension; Nasal congestion; Type 2 diabetes mellitus with diabetic autonomic neuropathy, with long-term current use of insulin (CMS/HCC); halfway (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 (Z79.4); Acquired absence of other toe(s), unspecified side (Z89.429); Type 2 diabetes mellitus with diabetic neuropathy, with long-term current use of insulin ([facility]); Body mass index [BMI] 50.0-59.9, adult (Z68.43); Type 2 diabetes mellitus with foot ulcer, with long-term current use of insulin (CMS/[facility]); 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.49); Status post amputation of lesser toe, unspecified laterality ([facility]); Arthritis of left foot; Acquired hallux valgus of left foot; Type 2 diabetes mellitus with hyperglycemia, with long-term current use of insulin ([facility]); Morbid obesity ([facility]) Start: 06-16-2023 End: 06-16-2023 ambulatory BLOSSOMNETO CODY Not Available Start: 06-15-2023 End: 06-15-2023 ambulatory Tondra Mapus Other [email or web address] Other Start: 06-15-2023 Telephone encounter Tondra Mapus [facility] Start: 06-09-2023 (DM) Diabetes Tondra Dayannaus [facility] Start: 06-09-2023 End: 06-10-2023 ambulatory MD Natalie Diggs Phone: [email or web address] Other Start: 06-09-2023 End: 06-09-2023 Discharged Recurring MD Natalie Diggs Phone: [facility] Work Phone: Start: 06-09-2023 End: 06-09-2023 Patient encounter procedure MD Natalie Diggs Phone: [facility]- Start: 01-04-2023 (DM) Diabetes Tondra Dayannaus [facility] Start: 01-04-2023 End: 01-04-2023 ambulatory Tondra Mapus Other [email or web address] Other Start: 12-21-2022 End: 12-21-2022 ambulatory Tondra Mapus Other [email or web address] Other Start: 12-21-2022 Telephone encounter Tondra Mapus [facility] Start: 10-12-2022 ambulatory NATANAEL FELDMAN Faci lity:H1 Start: 10-06-2022 End: 10-07-2022 ambulatory NATANAEL FELDMAN Facility:H1 Start: 10-01-2022 [facility]counter [facility]ed[facility] Start: 10-01-2022 Encounter for prepro cedural laboratory examination NATANAEL Marks [facility] Start: 09-30-2022 End: 10-01-2022 ambulatory NATANAEL Marks [facility] Facility:H1 Start: 09-30-2022 End: 10-01-2022 Encounter for preprocedural laboratory examination NATANAEL Marks [facility] Facility:H1 Start: 09-15-2022 End: 09-16-2022 ambulatory NATANAEL Selina [facility] Facility:H1 Start: 09-10-2022 End: 09-10-2022 ambulatory Tondra Mapus Other [email or web address] Other Start: 09-10-2022 Telephone encounter Tondra Mapus [facility] Start: 08-24-2022 End: 08-25-2022 ambulatory NATANAEL Marks [facility] Facility:H1 Start: 08-10-2022 End: 08-10-2022 ambulatory Tondra Mapus Other [email or web address] Other Start: 08-10-2022 Telephone encounter Tondra Mapus [facility] Start: 08-03-2022 End: 08-04-[address] NATALIE HERNANDEZ Facility:H1 Start: 07-13-2022 End: 07-14-2022 ambulatory MARTELLSARA NAVAS Facility:H1 Start: 06-30-2022 End: 07-01-2022 ambulatory NATANAEL Selina [facility] Facility:H1 Start: 06-25-2022 (DM) Diabetes Tondra Mapus [facility] Start: 06-25-2022 End: 06-25-2022 ambulatory Tondra Mapus Other [email or web address] Other Start: 06-16-2022 End: 06-17-2022 ambulatory NATANAEL Selina [facility] Facility:H1 Start: 06-08-2022 End: 06-09-2022 ambulatory NATANAEL Marks [facility] Facility:H1 Start: 05-25-2022 End: 05-26-2022 ambulatory NATANAEL Marks [facility] Facility:H1 Start: 05-12-2022 End: 05-13-2022 ambulatory NATANAEL D HIGHLANDER Facility:H1 Start: 04-30-2022 End: 05-01-2022 ambulatory NATANAEL Marks [facility] Facility:H1 Start: 04-24-2022 End: 04-25-2022 ambulatory NATANAEL Marks [facility] Facility:H1 Start: 04-17-2022 End: 04-18-2022 ambulatory NATANAEL D HIGHLANDER Facility:H1 Start: 04-08-2022 End: 04-09-2022 ambulatory NATANAEL D HIGHLANDER Facility:H1 Start: 03-31-2022 End: 04-01-2022 ambulatory NATANAEL Marks [facility] Facility:H1 Start: 03-23-2022 End: 03-24-2022 ambulatory NATANAEL MARTINEZANDER Facility:H1 Start: 03-16-2022 End: 03-17-2022 ambulatory NATANAEL MARTINEZANDER Facility:H1 Start: 03-09-2022 End: 03-10-2022 ambulatory NATANAEL MARTINEZANDER Facility:H1 Start: 03-03-2022 End: 03-04-2022 ambulatory NATANAEL FELDMAN Facility:H1 Start: 02-18-2022 End: 02-18-2022 ambulatory Tondra Mapus Other [email or web address] Other Start: 02-18-2022 Telephone encounter Tona Shannon [facility] Start: 02-09-2022 End: 02-10-2022 ambulatory NATANAEL FELDMAN Facility:H1 Start: 01-26-2022 End: 01-27-2022 ambulatory NATANAEL FELDMAN Facility:H1 Start: 01-13-2022 End: 01-14-2022 ambulatory NATANAEL Marks [facility] Facility:H1 Start: 01-06-2022 (DM) Diabetes Tondra Shannon [facility] Start: 01-06-2022 End: 01-06-2022 ambulatory Tondra Mapus Other [email or web address] Other Start: 12-29-2021 End: 12-30-2021 ambulatory NATANAEL FELDMAN Facility:H1 Start: 12-22-2021 End: 12-23-2021 ambulatory NATANAEL FELDMAN Facility:H1 Start: 12-15-2021 End: 12-16-2021 ambulatory PETER [...] post amputation of lesser toe, unspecified laterality ([facility]) Blossom Cody [employer] Work Phone: Plan of Treatment Date Care Activity Detail Author Start: 07-26-2025 Glaucoma screening Diabetes: Retinopathy Screening [facility] Start: 07-19-2024 End: 07-19-2024 Patient encounter procedure 07/19/2024 9:30 AM EDT Office Visit [facility] [address] [place] [address] Blossom Cody NP [address] [place], [place] [id number] [facility] Start: 04-26-2024 Hemoglobin A1c measurement Diabetes: Hemoglobin A1C [facility] Start: 04-19-2024 End: 04-19-2024 Patient encounter procedure [facility] Comment on above: Diabetic polyneuropathy associated with type 2 diabetes mellitus ([facility]) (Primary Dx); Wellness examination; Type 2 diabetes mellitus with neurological manifestation ([facility]); Essential hypertension; 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, subsequent encounter ([facility]); Dyslipidemia ([facility]); Hypertriglyceridemia ([facility]); Poorly controlled diabetes mellitus ([facility]); Type 2 diabetes mellitus with hyperglycemia, with long-term current use of insulin ([facility]); Amputation of toe, traumatic, left, sequela ([facility]) Start: 03-24-2024 Urine screening for protein Diabetes: Urine Protein Screening [facility] Start: 03-15-2024 Influenza vaccination Influenza Vaccine (#1) [facility] Comment on above: Postponed from 01/09/2024 (Patient Refus ed) Start: 01-19-2024 Hemoglobin A1c measurement Diabetes: Hemoglobin A1C [facility] Start: 01-09-2024 Influenza vaccination Influenza Vaccine (#1) [facility] Start: 09-15-2023 End: 09-15-2023 Patient encounter procedure 09/15/2023 9:30 AM EDT [facility] Visit [facility] [address] [place] [id number] Blossom Cody NP [address] [place], [place] [id number] [facility] Start: 09-07-2023 Hemoglobin A1c measurement Diabetes: Hemoglobin A1C [facility] Start: 07-26-2023 Glaucoma screening Diabetes: Retinopathy Screening [facility] Start: 07-07-2023 End: 07-07-2023 Patient encounter procedure 07/07/2023 9:00 AM EST Office Visit [facility] [address] [place] [address] [facility] Start: 06-16-2023 End: 06-16-2023 Patient encounter procedure 06/16/2023 11:00 AM EST Office Visit [facility] [address] [place] [address] Blossom Cody NP [address] [place], [place] [phone] Diabetic polyneuropathy associated with type 2 diabetes [...] disorder (CMS/HCC); Morbid obesity (CMS/HCC); Hypertriglyceridemia (CMS/HCC) [facility] Comment on above: Diabetic polyneuropathy associated with [...] lic 2000 panel - Serum or Plasma [facility] [place] Patient Education Diabetes and diet [facility] Work Phone: [facility] Immunizations Immunization Date Immunization Notes Care Provider Fa cility 03-14-2024 influenza, seasonal, injectable, preservative free Blossom Cody NP Work Phone: [facility] 03-14-2024 influenza virus vacc ine, unspecified formulation Blossom Glo [employer] Work Phone: [facility] 07-05-2023 tetanus and diphther ia toxoids, adsorbed, preservative free, for adult use (2 Lf of tetanus toxoid and 2 Lf of diphtheria toxoid) Blossom Glo [employer] Work Phone: [facility] 03-24-2023 influenza, injectabl e, quadrivalent, preservative free Blossom Glo [employer] Work Phone: [facility] 03-24-2023 influenza virus vacc ine, unspecified formulation Blossom Glo [employer] Work Phone: [facility] 08-26-2021 tetanus and diphther ia toxoids, adsorbed, preservative free, for adult use (5 Lf of tetanus toxoid and 2 Lf of diphtheria toxoid) Blossom Glo [employer] Work Phone: [facility] 03-28-2021 influenza, injectabl e, quadrivalent, preservative free Blossom Glo [employer] Work Phone: [facility] 02-13-2020 Influenza, injectabl e, Madin Nel Canine Kidney, preservative free, quadrivalent Blossom Glo [employer] Work Phone: [facility] 02-22-2019 influenza, injectabl e, quadrivalent, preservative free Blossom Glo [employer] Work Phone: [facility] 02-07-2018 influenza, injectabl e, quadrivalent, preservative free Blossom Glo [employer] Work Phone: [facility] Payers Date Payer Category Payer Private Health Insurance [facility] [id number] 2022 Unknown [id number] 2020 Self-pay [id number] 1979 Unknown [id number] 2.16.840.1.143053.3.579. 2.593 1979 Unknown [id number] 2.16.840.1.682508.3.579. 2.593 1979 Unknown [id number] 2.16.840.1.816731.3.579. 2.593 1979 Unknown [id number] 2.16.840.1.888144.3.579. 2.593 1979 Unknown [id number] 2.16.840.1.431993.3.579. 2.593 1979 Unknown [id number] 2.16.840.1.496995.3.579. 2.593 1979 Unknown [id number] 2.16.840.1.392594.3.579. 2.593 1979 Unknown [id number] 2.16.840.1.654654.3.579. 2.593 1979 Unknown [id number] 2.16.840.1.273315.3.579. 2.593 1979 Unknown [id number] 2.16.840.1.251377.3.579. 2.593 1979 Unknown [id number] 2.16.840.1.694263.3.579. 2.593 1979 Unknown [id number] 2.16.840.1.246645.3.579. 2.593 1979 Unknown [id number] 2.16.840.1.569584.3.579. 2.593 1979 Unknown [id number] 2.16.840.1.705236.3.579. 2.593 1979 Unknown [id number] 2.16.840.1.737034.3.579. 2.593 1979 Unknown [id number] 2.16.840.1.930072.3.579. 2.593 1979 Unknown [id number] 2.16.840.1.267164.3.579. 2.593 1979 Unknown [id number] 2.16.840.1.652484.3.579. 2.593 1979 Unknown [id number] 2.16.840.1.668500.3.579. 2.593 1979 Unknown [id number] 2.16.840.1.382267.3.579. 2.593 1979 Unknown [id number] 2.16.840.1.706199.3.579. 2.593 1979 Unknown [id number] 2.16.840.1.201133.3.579. 2.593 1979 Unknown [id number] 2.16.840.1.930686.3.579. 2.593 1979 Unknown [id number] 2.16.840.1.737574.3.579. 2.593 1979 Unknown [id number] 2.16.840.1.457259.3.579. 2.593 1979 Unknown [id number] 2.16.840.1.130198.3.579. 2.593 1979 Unknown [id number] 2.16.840.1.288145.3.579. 2.593 1979 Unknown [id number] 2.16.840.1.095206.3.579. 2.593 1979 Unknown [id number] 2.16.840.1.044922.3.579. 2.593 1979 Unknown [id number] 2.16.840.1.459050.3.579. 2.593 1979 Unknown [id number] 2.16.840.1.954047.3.579. 2.593 1979 Unknown [id number] 2.16.840.1.107136.3.579. 2.593 1979 Unknown [id number] 2.16.840.1.325136.3.579. 2.593 1979 Unknown [id number] 2.16.840.1.503813.3.579. 2.593 1979 Unknown [id number] 2.16.840.1.958934.3.579. 2.593 1979 Unknown [id number] 2.16.840.1.200788.3.579. 2.593 1979 Unknown [id number] 2.16.840.1.790635.3.579. 2.593 1979 Unknown [id number] 2.16.840.1.539097.3.579. 2.593 1979 Unknown [id number] 2.16.840.1.069712.3.579. 2.593 1979 Unknown [id number] 2.16.840.1.039361.3.579. 2.593 1979 Unknown [id number] 2.16.840.1.296864.3.579. 2.593 1979 Unknown [id number] 2.16.840.1.756681.3.579. 2.1259 1979 Unknown [id number] 2.16.840.1.793758.3.579. 2.1259 1979 Unknown [id number] 2.16.840.1.044349.3.579. 2.1259 1979 Unknown [id number] 2.16.840.1.368595.3.579. 2.1258 1979 Unknown [id number] 2.16.840.1.489420.3.579. 2.1258 1979 Unknown [id number] 2.16.840.1.906983.3.579. 2.1258 1979 Unknown [id number] 2.16.840.1.853636.3.579. 2.1258 1979 Unknown [id number] 2.16.840.1.516770.3.579. 2.1258 1979 Unknown [id number] 2.16.840.1.219713.3.579. 2.9 1959 Unknown [id number] 2.16.840.1.706661.19 1959 Unknown [id number] 2.16.840.1.175322.19 Unknown [id number] 2.16.840.1.207487.3.579. 2.531 Social History Date Type Detail Facility Unknown if ever smoked [email or web address] Other Start: 03-23-2023 End: 04-19-2024 Sex Assigned At [facility] Start: 12-21-2022 Tobacco smoking status [facility] Never smoked tobacco [facility] Start: 12-21-2022 Tobacco use and exposure Smokeless tobacco non-user [facility] Start: 05-18-2023 End: 04-19-2024 Alcohol intake Current drinker of alcohol (finding) [facility] Start: 03-23-2023 End: 05-18-2023 Alcohol intake [...] Start: 1980 Sex Assigned At Male F [facility] Start: 10-19-2023 Tobacco smoking status NHIS Ex-smoker (finding) [facility] [place] Medical Equipment Procedure Code Equipment Code Equipment [...] syringe Start: 06-23-2023 Clinical Notes 05-10-2020 to 04-19-2024 Blossom Cody, JENNYFER - 04/19/2024 10:00 AM ESTTelephone Encounter - Blossom Cody NP - 02/28/2024 11:53 AM EDTTelephone Encounter - Blossom Cody NP - 02/28/2024 11:53 AM EDT Note Date & Type Note Facility 04-19-2024 History of Presen t illness Narrative Images from the original note were not included. Subjective Patient ID: Trev Ontiveros is a 43 y.o. male who presents for No chief complaint on file.. HPI: Doing ok, Seeing Podiatry and Endo. Next Endo appt next Wednesday. They did lab in Jan. No foot pain/issues at this time. Went back to work in February. Appetite is good. Fasting blood sugars 120-150. No low sugars. Taking Lantus 42-46 units daily and coverage. Last eye exam July-. Not watching BP at home. Review of Systems Constitutional: Negative for appetite change, chills, fatigue and fever. HENT: WNL Respiratory: Negative for cough and shortness of breath. Cardiovascular: Negative for chest pain. Gastrointestinal: Negative for abdominal pain and blood in stool. No change in bowels, no GERD Genitourinary: Negative. Negative for difficulty urinating and dysuria. Musculoskeletal: Negative for arthralgias. Skin: Negative for rash. No joint pain Neurological: Negative for dizziness and headaches. Psychiatric/Behavioral: Mood is ok. Sleeping well Endocrine: See HPI 09/06/2023 3:37 PM 09/15/2023 9:17 AM 09/15/2023 9:33 AM 10/12/2023 9:45 AM 10/29/2023 9:37 AM 01/19/2024 11:00 AM 04/19/2024 9:47 AM Vitals BMI 52.12 kg/m2 52.45 kg/m2 52.4 kg/m2 52.4 kg/m2 51.82 kg/m2 52.21 kg/m2 BSA (m2) 2.95 m2 2.95 m2 2.95 m2 2.95 m2 2.94 m2 2.95 m2 Systolic 152 146 136 128 Diastolic 86 84 78 72 Heart Rate 84 84 84 Height (in) 5' 11.5 5' 11.5 5' 11.5 Weight (lb) 379 381.4 381 381 376.8 379.6 Visit Report Report Report Report Report Report Report Report Objective Physical Exam Vitals reviewed. Constitutional: General: He is not in acute distress. HENT: Ears: Comments: WNL, except slight cerumen left ear Nose: Nose normal. No rhinorrhea. Mouth/Throat: Mouth: Mucous membranes are moist. Pharynx: Oropharynx is clear. No posterior oropharyngeal erythema. Eyes: Extraocular Movements: Extraocular movements intact. Neck: Vascular: No carotid bruit. Cardiovascular: Rate and Rhythm: Normal rate and regular rhythm. Comments: No edema Pulmonary: Effort: Pulmonary effort is normal. Breath sounds: Normal breath sounds. Comments: No cough Abdominal: General: Bowel sounds are normal. Palpations: Abdomen is soft. Tenderness: There is no abdominal tenderness. Musculoskeletal: Comments: Usual gait, wearing tennis shoes Feet: Comments: Foot exam 09/06/[address] Moore, also sees Dr Feldman, and per pt Endo does exam at each appt Lymphadenopathy: Cervical: No cervical adenopathy. Skin: General: Skin is warm and dry. Findings: No rash. Neurological: Mental Status: He is alert and oriented to person, place, and time. Psychiatric: Comments: Calm and cooperative, well groomed I have reviewed and reconciled the history and medication list with the patient today. Assessment/Plan Diagnoses and all orders for this visit: Wellness examination Comments: Reviewed vitals. Reviewed immunizations. Enc Flu/covid vaccines. Discussed Prevnar 20-declined at this time. Tetanus 07/03. Colorectal screening can begin at age 45 Diabetic polyneuropathy associated with type 2 diabetes mellitus ([facility]/HCC) Comments: Pt sees endo. HgbA1c 01/31 7.4 (prior 9.7 in October). Enc yearly eye exam. Watch sweets, portions on carbs. Enc to to be as active as able. Endo did lab Jan 19 Urine micro, CMP, Lipid. 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 Avoid sweets. enc fruit and elliot veget, lean protein nuts, exercise Poorly controlled diabetes mellitus (CMS/HCC) Type 2 diabetes mellitus with hyperglycemia, with long-term current use of insulin (CMS/HCC): See Endo Amputation of toe, traumatic, left, sequela (CMS/HCC): Sees Podiatry Diabetic autonomic neuropathy associated with type 2 diabetes mellitus (CMS/HCC: See above Acquired hallux valgus, unspecified laterality: Sees Podiatry Morbid obesity ([facility]/HCC): See above Vitamin B12 deficiency: 374 on recent lab in Jan Lipoprotein deficiency disorder F/U in July or August for recheck-hypertension/Diabetes, sooner if concerns documented in this encounter [facility] 02-28-2024 Telephone encount er Note Rx sent [facility] 02-28-2024 Miscellaneous Notes Formattin g of this note might be different from the original. Rx sent documented in this encounter [facility] 01-19-2024 History of Presen t illness Narrative Images from the original note were not included. Subjective Patient ID: Trev Ontiveros is a 43 y.o. male who presents for Follow-up (Pt has labs from endo. Pt is not fasting today and he plans to come over tomorrow to have them done. ). HPI: Doing ok. Pt states the end of October/first of November right foot had had blister. He saw Dr Feldman. Tried a boot, then casted it for 2 months or so. Now is back in shoe and just started driving again. No pain. Has been off work this whole time. Has been laying around more, with foot up. Last A1c 9.7 in October. Sugars in 130's usually. Not checking after meals. Endo added Farziga and Victoza. Still taking Lantus 42-46 units BID. Uses Humalog sliding scale. Has appt with Endo next week. Has order to do urine micro, CMP, lipid, Vit B12 from them. Pt plans to do that tomorrow or Wednesday. Pt unsure if he is taking 30 or 40mg of lisinopril. Was taking 40 for awhile. Needs Statin refill. Saw Eye in July Review of Systems Constitutional: Positive for fatigue. Negative for appetite change, chills and fever. Laying around more HENT: WNL Respiratory: Negative for cough and shortness of breath. Cardiovascular: Negative for chest pain. Gastrointestinal: Negative for abdominal pain and blood in stool. No change in bowels, no GERD Genitourinary: Negative. Negative for difficulty urinating and dysuria. Musculoskeletal: Negative for arthralgias. Skin: Negative for rash. Neurological: Negative for dizziness and headaches. When outside temperature fluctuates Psychiatric/Behavioral: Mood is good, just frustrated with feet/being off work. Sleeping well Endocrine: See HPI Objective Physical Exam Vitals reviewed. Constitutional: General: He is not in acute distress. HENT: Ears: Comments: WNL, except slight cerumen left ear Nose: Nose normal. No rhinorrhea. Mouth/Throat: Mouth: Mucous membranes are moist. Pharynx: Oropharynx is clear. No posterior oropharyngeal erythema. Eyes: Extraocular Movements: Extraocular movements intact. Neck: Vascular: No carotid bruit. Cardiovascular: Rate and Rhythm: Normal rate and regular rhythm. Comments: No edema Pulmonary: Effort: Pulmonary effort is normal. Breath sounds: Normal breath sounds. Comments: No cough Abdominal: General: Bowel sounds are normal. Palpations: Abdomen is soft. Tenderness: There is no abdominal tenderness. Musculoskeletal: Comments: Usual gait, wearing tennis shoes Feet: Comments: Foot exam 09/06/[address] Moore, also sees Dr Feldman, and per pt Endo does exam at each appt Lymphadenopathy: Cervical: No cervical adenopathy. Skin: General: Skin is warm and dry. Findings: No rash. Comments: Left index finger cleared up afte Rx used Neurological: Mental Status: He is alert and oriented to person, place, and time. Psychiatric: Comments: Calm and cooperative, well groomed 07/07/2023 3:20 PM 09/06/2023 3:37 PM 09/15/2023 9:17 AM 09/15/2023 9:33 AM 10/12/2023 9:45 AM 10/29/2023 9:37 AM 01/19/2024 11:00 AM Vitals BMI 52.12 kg/m2 52.45 kg/m2 52.4 kg/m2 52.4 kg/m2 51.82 kg/m2 BSA (m2) 2.95 m2 2.95 m2 2.95 m2 2.95 m2 2.94 m2 Systolic 152 152 146 136 Diastolic 72 86 84 78 Heart Rate 84 84 Height (in) 5' 11.5 5' 11.5 5' 11.5 Weight (lb) 379 381.4 381 381 376.8 Visit Report Report Report Report Report Report Report Report Assessment/Plan Diagnoses and all orders for this visit: Diabetic polyneuropathy associated with type 2 diabetes mellitus ([facility]) Comments: HgbA1c 9.7 in October. He sees Endo. Plans to do lab for them this week. He has Endo appt next week. Enc yearly eye exams. Enc to watch portions on carbs, avoid sweets. Try to be as active as able. Type 2 diabetes mellitus with neurological manifestation ([facility]) Essential hypertension: Controlled. Pt will verify what dose he has at home ie 30 or 40mg of Lisinopril. 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 Avoid sweets, more fruits and mainly non-starchy vegetables, lean protien, nuts and routine exercise. Amputation of toe, traumatic, left, sequela ([facility]) Vitamin B 12 deficiency Comments: Last Vit B12 351 Pt declined flu vaccine today, prefers to wait into later February, could stop back here or do at work or pharmacy. Does not plan to get any more covid vaccines. Enc to think about Prevnar 20. F/U in 3 months for Wellness, sooner if concerns. PVU documented in this encounter [facility] 06-16-2023 History of Presen t illness Narrative [...] ranging from 120-170's. Sees Joshua in [place], [facility] appt September 13 with them. Taking insulin, [...] Comments: Pt declined foot exam today, states Joshua did one last week and he sees [...] polyneuropathy associated with type 2 diabetes mellitus ([facility]) Comments: Sees Joshua, last HgbA1c 8.11 May 2023 (prior 8.9 end of December). Pt asked me why we can't just take care of his Diabetes, so he doesn't have to go to [place]. I told him because his sugars are [...] DM care again. 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 Now has left foot toe amputated. Per pt toe is healing Ulcer of foot due to type 2 diabetes mellitus ([facility]/HCC): Hx of Poorly controlled diabetes mellitus ([facility]): Last HgbA1c 8.2 Type 2 diabetes mellitus with hyperglycemia, with long-term current use of insulin ([facility]): As above Vitamin B 12 deficiency Comments: Last WNL at 351 Hx of diabetic neuropathy: Hx of 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CMS/HCC): Hx of Morbid obesity ([facility]) Comments: Enc healthy diet, watch sweets carbs. Balance diet with carb proteinm try to add vegeatbles, Enc physical activity as able Hypertriglyceridemia ([facility]) Comments: Last lipids 04/01 Chol 142, Trig [...] neuropathy, with long-term current use of insulin ([facility]): Hx of halfway (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 (Z79.4): Hx of Acquired absence of other toe(s), unspecified side (Z89.429): Hx of Type 2 diabetes mellitus with diabetic neuropathy, with long-term current use of insulin ([facility]); Hx of Body mass index [BMI] 50.0-59.9, adult (Z68.43): See above. Discussed seeing weight loss provider or seeing someone about gastric bypass-pt declined both. He is not interested in this Type 2 diabetes mellitus with foot ulcer, with long-term current use of insulin ([facility]): Hx of (no ulcer at this time, [...] Type 2 Diabetes mellitus with hyperglycemia with mcfp current use of insulin ([facility]): Hx of Morbid obesity: See above documented in this encounter [facility] 06-15-2023 Evaluation note Encounter Date Diagnosis Assessment Notes Jun, Type 2 diabetes mellitus with hyperglycemia (ICD-10 - E11.65) [email or web address] Other 01-31-2024 Evaluation note* Encounter Date Diagnosis [...] is prohibitive for pt to take jardiance, ozempic,daphnieunjaro. Steglatro is tier 2 on formulary. Reviewed [...] [facility]- syringes, pen needles, victoza sent. 1/31/24 7. Prescriptions will not be filled unless [...] f/u with pcp for further recommendation May, halfway current use of insulin (ICD-10 - Z79.4) May, Vitamin B 12 deficiency (ICD-10 - E53.8) 04/01 vit b 12 351 at target May, BMI 50.0-59.9, adult (ICD-10 - Z68.43) see above May, Amputation toe (ICD-10 - Z89.429) Keep f/u with Dr. Feldman May, Cracked skin on feet (ICD-10 - R23.4) keep f/u with Dr. Feldman [email or web address] Other 08-28-2023 Evaluation note* Encounter Date Diagnosis [...] for Lispro/ozempic 0.5mg sent to [facility] in [place] 01/04/23 7. Prescriptions will not be filled [...] (hypertension) (ICD-10 - I10) on julissa Dec, halfway current use of insulin (ICD-10 - Z79.4) Dec, Vitamin B 12 deficiency (ICD-10 - E53.8) 12/30 vit b 12 335 at target Dec, BMI 50.0-59.9, adult (ICD-10 - Z68.43) see above Dec, Wound of foot (ICD-10 - S91.309A) pt has apt scheduled with Dr. Feldman today [email or web address] Other 05-30-2023 NotePROCEDURE: XR FOOT LT MIN [...] Electronically authenticated by: FRANCO FRANCES Date: 2022-10-06 14:13[facility]05-04-2023 Evaluation note* Encounter Date Diagnosis Assessment Notes Treatment Notes Treatment Clinical Notes September, Type 2 diabetes mellitus with hyperglycemia (ICD-10 - E11.65) [email or web address] Other 04-17-2023 NotePROCEDURE: XR FOOT LT MIN [...] Electronically authenticated by: FERN SOSA Date: 2022-08-24 12:46[facility]02-16-2023 Evaluation note* Encounter Date Diagnosis Assessment Notes Treatment Notes Treatment Clinical Notes Jun, Type 2 diabetes mellitus with hyperglycemia (ICD-10 - E11.65) 1. Uncontrolled, a Type 2 diabetes with A1c of 8.2% 2. Blood glucose levels above target. Discussed with pt restarting ozempic, he had s/e from higher dose ozempic 1mg and concern with cost works at [employer]. Pt agreeable to starting sample ozempic 0.5mg [...] issues. 6. Prescriptions: Syringes/ozempic/st eglatro sent to [facility] in [place] 06/25/22 7. Prescriptions will not be filled [...] (hypertension) (ICD-10 - I10) on julissa Jun, halfway current use of insulin (ICD-10 - Z79.4) Jun, Vitamin B 12 deficiency (ICD-10 - E53.8) 12/28 vit b 12 423 at target Jun, BMI 50.0-59.9, adult (ICD-10 - Z68.43) [email or web address] Other 02-07-2023 NotePROCEDURE: XR ANKLE LT MIN [...] Electronically authenticated by: GISSEL RUBIO Date: 2022-06-16 16:33[facility]02-07-2023 NotePROCEDURE: XR ANKLE LT MIN 3 [...] Electronically authenticated by: GISSEL RUBIO Date: 2022-06-16 16:33[facility]08-30-2022 Evaluation note* Encounter Date Diagnosis Assessment [...] last visit, continue with weight loss efforts [email or web address] Other 01-01-2021 History general Narrative - Reported* Type Description Date Medical History type II diabetes Medical History hypertension Medical History hyperlipidemia Medical History covid 05/2020 Surgical History Ulcer on left great toe X2 Surgical History Partial amputation Right great toe 01/2021 Surgical History All toes right foot amputated Hospitalization History Toe infection 2017 [email or web address] Other 01-01-2021 History general Narrative - Reported* Type Description Date Medical History type II diabetes Medical History hypertension Medical History hyperlipidemia Medical History covid 05/2020 Surgical History Ulcer on left great toe X2 Surgical History Partial amputation Right great toe 01/2021 Surgical History All toes right foot amputated Surgical History Left great toe corre ctive surgery with Dr. Feldman in [place] 10/2022 Hospitalization History Toe infection 2017 [facility] [address] [employer] Other chief complaint+Reason for visit Narrative* Chief Complaint no meter Reason for Visit BMI 50.0-59.9, adult Dietary counseling and surveillance Hypertension Mixed hyperlipidemia Type 2 diabetes mellitus with hyperglycemia [facility] Work Phone: Chiri complaint+Reason for visit Narrative* Chief Complaint meter Reason for Visit BMI 50.0-59.9, adult Dietary counseling and surveillance Hypertension Mixed hyperlipidemia Type 2 diabetes mellitus with hyperglycemia Wound of left foot Wound of right foot [facility] Work Phone: Evaluation noteNo InformationNortP[facility] [address] [employer] Other Evaluation note* Diagnosis Diabetic polyneuropathy associated with type 2 diabetes mellitus ([facility]/HCC)- Primary Diabetic neuropathic arthropathy ([facility]/HCC) Type II or unspecified type diabetes mellitus with neurological manifestations, not stated as uncontrolled Type 2 diabetes mellitus with neurological manifestation ([facility]) 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, sequela ([facility]) Ulcer of foot due to type 2 diabetes mellitus ([facility]/HCC) Vitamin B 12 deficiency Other B-complex deficiencies Hx of diabetic neuropathy 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) Lipoprotein deficiencies Hypertriglyceridemia ([facility]) Pure hyperglyceridemia 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, 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) Essential hypertension Unspecified essential hypertension Nasal congestion Other diseases of nasal cavity and sinuses Type 2 diabetes mellitus with diabetic autonomic neuropathy, with long-term current use of insulin ([facility]/HCC) intermediate manager (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 (Z79.4) Acquired absence of other toe(s), unspecified side (Z89.429) Type 2 diabetes mellitus with diabetic neuropathy, with long-term current use of insulin ([facility]/HCC) Body mass index [BMI] 50.0-59.9, adult (Z68.43) Type 2 diabetes mellitus with foot ulcer, with long-term current use of insulin ([facility]/HCC) 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.49) Status post amputation of lesser toe, unspecified laterality ([facility]) Arthritis of left foot Acquired hallux valgus of left foot Type 2 diabetes mellitus with hyperglycemia, with long-term current use of insulin ([facility]) Morbid obesity ([facility]) Morbid obesity documented in this encounter [facility] HealthcareEvaluation noteNo assessment information availableSelect [facility] [place] Work Phone: Evaluation note* Diagnosis Onset Date Resolution Status BMI 50.0-59.9, adult acute Dietary counseling and surveillance acute Hypertension acute Mixed hyperlipidemia acute Type 2 diabetes mellitus with hyperglycemia acute [facility] Work Phone: Evaluation note* Diagnosis Onset Date Resolution Status BMI 50.0-59.9, adult acute Dietary counseling and surveillance acute Hypertension acute Mixed hyperlipidemia acute Type 2 diabetes mellitus with hyperglycemia acute Wound of left foot acute Wound of right foot acute [facility] Work Phone: Evaluation note* Diagnosis Pure hyperglyceridemia ([facility]) Pure hyperglyceridemia documented in this encounter [facility] HealthcareEvaluation note* Diagnosis Diabetic polyneuropathy associated with type 2 diabetes mellitus ([facility])- Primary Type 2 diabetes mellitus with neurological manifestation ([facility]) Essential hypertension Unspecified essential hypertension 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, subsequent encounter ([facility]) Type 2 diabetes mellitus with hyperglycemia, with long-term current use of insulin ([facility]) Dyslipidemia ([facility]) Other and unspecified hyperlipidemia Hypertriglyceridemia ([facility]) Pure hyperglyceridemia Vitamin B 12 deficiency Other B-complex deficiencies Pure hyperglyceridemia ([facility]) Pure hyperglyceridemia documented in this encounter [facility] HealthcareEvaluation note* Diagnosis Diabetic polyneuropathy associated with type 2 diabetes mellitus ([facility])- Primary Wellness examination Type 2 diabetes mellitus with neurological manifestation ([facility]) Essential hypertension Unspecified essential hypertension 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, subsequent encounter ([facility]) Dyslipidemia ([facility]) Other and unspecified hyperlipidemia Hypertriglyceridemia ([facility]) Pure hyperglyceridemia Poorly controlled diabetes mellitus ([facility]) Type II or unspecified type diabetes mellitus without mention of complication, not stated as uncontrolled Type 2 diabetes mellitus with hyperglycemia, with long-term current use of insulin ([facility]) Diabetic autonomic neuropathy associated with type 2 diabetes mellitus ([facility]) Type II or unspecified type diabetes mellitus with neurological manifestations, not stated as uncontrolled Acquired hallux valgus, unspecified laterality Morbid obesity (CMS/HCC) Morbid obesity Vitamin B 12 deficiency Other B-complex deficiencies 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[facility]) Lipoprotein deficiencies documented in this encounter [facility] Summary Purpose Family History Relationship Condition Age [...] section and content) DATE CREATED AUTHOR 08/27/2021 [facility] dical Specialist DATE CREATED AUTHOR AUTHOR'S ORGANIZ ATION 10/17/2022 [facility] DATE CREATED AUTHOR AUTHOR'S ORGANIZ ATION 08/14/2023 [facility] DATE CREATED AUTHOR AUTHOR'S ORGANIZ ATION 04/22/2024 [facility] dical Specialists EPIC REASON FOR VISIT (unrecogniz ed section and content) Reason Comments Diabetes Pt saw endocrinology last week and has his hgbA1c. HgbA1c was 8.2 and his results and notes are under media from that appt on 06-09-22 Reason Comments Follow-up Pt has labs from end o. Pt is not fasting today and he plans to come over tomorrow to have them done. 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 Relationship Specialty Start Date End Date Natalie Hernandez MD [address] [place] [address] PCP - General Family Medicine 09/15/22 Fellmongery Worker Relationship Specialty Start Date End Date Natalie Hernandez MD [address] [place] [address] PCP - General Family Medicine 09/15/22 Team Status: Inactive Member Role Status Dates [...] October 19, 2023 End: October 19, 2023 Fellmongery Worker Relationship Specialty Start Date End Date Natalie Hernandez MD [address] [place] [address] PCP - General Family Medicine 09/15/22 Blossom Cody NP [address] [place] [address] Nurse Practitioner Family Medicine 01/19/24 Fellmongery Worker Relationship Specialty Start Date End Date Natalie Hernandez MD [address] [place] [address] PCP - General Family Medicine 09/15/22 Blossom Cody NP [address] [place] [address] Nurse Practitioner Family Medicine 01/19/24 Fellmongery Worker Relationship Specialty Start Date End Date Natalie Hernandez MD [address] [place] [address] PCP - General Family Medicine 09/15/22 Blossom Cody NP [address] [place] [address] Nurse Practitioner Family [facility] 01/19/24 Fellmongery Worker Relationship Specialty Start Date End Date Natalie Hernandez MD [address] [place] [address] PCP - General Family Medicine 09/15/22 Blossom Cody NP [address] [place] [address] Nurse Practitioner Family [facility] 01/19/24 Goals (unrecognized section and content) Goals may [...] BE BASED ON THE PRIMARY CLINICAL RECORDS. [facility]. provides no warranty or guarantee of the accuracy or completeness of information in this document.
== END 2024-04-25 11:53 | disposition home or self-care (01) ==
LOC: WC 11:52
PROVIDERS: PCP Family Medicine; Visit Provider Physician Assistant
DX: M79.671 Pain in right foot (principal); E11.621 Type 2 diabetes mellitus with foot ulcer; L97.412 Non-pressure chronic ulcer of right heel and midfoot with fat layer exposed
CPT/HCPCS: 73630; G0463

== ENCOUNTER 2024-04-25 12:30 | Inpatient (IN) | payer OTHER, SELFPAY ==
[2024-04-25] VITALS (10 sets, daily range): BP systolic 108–157; BP diastolic 57–117; PULSE 57–126; TEMP 35.9–36.9; O2SAT 93–100; BMI 50.9; BMI 51.1
--- NOTE | 2024-04-25 12:38 | ED.GENADUL1 ---
HPI HPI - General Adult General Chief complaint: Skin/Abscess/Foreign Body Stated complaint: FOOT WOUND CHECK Time Seen by Provider: 04/25/24 12:31 History of Present Illness HPI narrative: 43-year-old male presents for diabetic foot infection of his right foot. 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 He has had previous surgery on this foot with partial amputation. This is an ongoing infection that he has had for weeks or months. An x-ray and culture were taken at the stewarding supervisor office today. Related Data Home Medications ?Medication ?Instructions ?Recorded ?Confirmed aspirin 81 mg tablet,delayed 81 mg PO QDAY 10/07/22 04/25/24 release (Adult Aspirin Regimen) atorvastatin 40 mg tablet 40 mg PO QDAY 10/07/22 04/25/24 insulin glargine 100 unit/mL 44 unit subcut BID 10/07/22 04/25/24 subcutaneous solution (Lantus U-100 Insulin) insulin lispro 100 unit/mL 1 sliding scale dose subcut 10/07/22 04/25/24 subcutaneous solution USEASDIRECTD lisinopril 20 mg tablet 10 mg PO QDAY 10/07/22 04/25/24 metformin 500 mg tablet 500 mg PO BID 10/07/22 04/25/24 dapagliflozin propanediol 10 mg mg 04/25/24 tablet Allergies Allergy/AdvReac Type Severity Reaction Status Date / Time No Known Drug Allergies Allergy Verified 10/07/22 14:17 Opioid HPI Opioid Management Most Recent Opioid Data: Last Pain Scale 0 04/25/24 12:51 04/25/24 Review of Systems ROS Narrative A ten point review of systems is negative except as noted above. [facility] Medical History (Updated 04/25/24 @ 12:59 by Simone Dao MD) Diabetes ?E11.9 - Type 2 diabetes mellitus without complications (ICD-10) High cholesterol ?E78.00 - Pure hypercholesterolemia, unspecified (ICD-10) Hypertension ?I10 - Essential (primary) hypertension (ICD-10) Hallux rigidus ?M20.20 - Hallux rigidus, unspecified foot (ICD-10) Acquired equinus deformity of foot ?M21.6X9 - Other acquired deformities of unspecified foot (ICD-10) Diabetic foot ulcer ?E11.621 - Type 2 diabetes mellitus with foot ulcer (ICD-10) ?L97.509 - Non-pressure chronic ulcer of other part of unspecified foot with unspecified severity (ICD-10) 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) ?S98.139A - Complete traumatic amputation of one unspecified lesser toe, initial encounter (ICD-10) COVID-19 (~10/2021) ?U07.1 - COVID-19 (ICD-10) Surgical History (Updated 10/07/22 @ 14:32 by Tracy Valencia NP) S/P operative procedure on foot (~2017) ?Z98.890 - Other specified postprocedural states (ICD-10) S/P debridement (~03/27/18) ?Z98.890 - Other specified postprocedural states (ICD-10) S/P operative procedure on foot (~09/15/18) ?Z98.890 - Other specified postprocedural states (ICD-10) S/P operative procedure on foot (02/15/20) ?Z98.890 - Other specified postprocedural states (ICD-10) S/P operative procedure on foot (09/25/21) ?Z98.890 - Other specified postprocedural states (ICD-10) S/P operative procedure on foot (10/14/21) ?Z98.890 - Other specified postprocedural states (ICD-10) Family History (Updated 10/07/22 @ 14:33 by Tracy Valencia NP) Father Family history of cancer Mother Family history of cancer Family history of diabetes mellitus Social History (Updated 05/17/23 @ 09:16 by Nina Patino) Within the past year, how often did you have a drink containing alcohol: 2-4 times a month Within the past year, how many standard drinks containing alcohol did you have on a typical day: 1 or 2 Within the past year, how often did you have six or more drinks on one occasion: never Total score: 0 Score interpretation: A score less than 4 is consistent with normal alcohol consumption. Smoking status: Former smoker Second hand tobacco smoke exposure: No Non-prescribed substance use: denies use Previous occupational history: [employer] Known occupational exposures/hazards: No Highest level of school completed/degree received: some college, no degree Little interest or pleasure in doing things: not at all Feeling down, depressed, or hopeless: not at all Exam Narrative Exam Narrative: Nurses note and vital signs reviewed and patient is not hypoxic. General: The patient appears in no apparent distress. Patient is resting comfortably on cart. Skin: Warm, dry, no pallor noted. There is no rash noted. Head: Normocephalic, atraumatic Eye: Normal conjunctiva, no drainage Ears, Nose, Mouth, and Throat: oral mucosa is moist. Nares patent. Cardiovascular: Regular Rate and Rhythm Respiratory: Patient is in no distress, no accessory muscle use, lungs are clear to auscultation, no wheezing, rales or rhonchi Back: non-tender GI: Obese and nontender Musculoskeletal: Right foot has partial amputation. He has an open area on the plantar surface of the foot with erythema and swelling around it. Neurological: A&O, normal speech Psychiatric: Cooperative Constitutional Vital Signs, click to edit/add: Last Vital Signs Temp 98.5 F 04/25/24 12:35 Pulse 115 H 04/25/24 13:41 Resp 20 04/25/24 13:41 BP 110/68 04/25/24 13:45 Pulse Ox 100 04/25/24 13:41 O2 Del Method Room Air 04/25/24 12:35 Course Vital Signs Vital signs: Vital Signs Temperature 98.5 F 04/25/24 12:35 Pulse Rate 126 H 04/25/24 12:35 Respiratory Rate 18 04/25/24 12:35 Blood Pressure 157/117 H 04/25/24 12:35 Pulse Oximetry 99 04/25/24 12:35 Oxygen Delivery Method Room Air 04/25/24 12:35 Temperature 98.5 F 04/25/24 12:35 Pulse Rate 115 H 04/25/24 13:41 Respiratory Rate 20 04/25/24 13:41 Blood Pressure 110/68 04/25/24 13:45 Pulse Oximetry 100 04/25/24 13:41 Oxygen Delivery Method Room Air 04/25/24 12:35 Medical Decision Making MDM Narrative Medical decision making narrative: WBC is 19,000. Blood cultures were obtained and he was given IV Zosyn and vancomycin. Foot x-ray and wound culture were done from the podiatry office today. He will be admitted with plan for OR tomorrow. Findings were discussed with the patient. Differential Diagnosis Differential Diagnosis: Diabetic foot infection, abscess, osteomyelitis Lab Data Lab results reviewed: Yes I reviewed the patient's lab results Labs: Lab Results 04/25/24 Range/Units 12:45 WBC 19.7 H (4.0-11.0) 10^3/uL RBC 3.86 L (4.70-6.10) 10^6/uL Hgb 11.9 L (14.0-18.0) g/dL Hct 35.5 L (42.0-54.0) % MCV 92.0 (80.0-94.0) fL MCH 30.8 (25.9-34.0) pg MCHC 33.5 (29.9-35.2) g/dL RDW 13.2 (11.0-15.0) % Plt Count 311 (150-450) 10^3/uL MPV 9.5 (9.5-13.5) fL Neut % (Auto) 88.7 H (43.0-75.0) % Lymph % (Auto) 3.9 L (20.5-60.0) % Arthur % (Auto) 6.4 (1.7-12.0) % Eos % (Auto) 0.1 L (0.9-7.0) % Baso % (Auto) 0.3 (0.2-2.0) % Neut # (Auto) 17.5 H (1.4-6.5) 10^3/uL Lymph # (Auto) 0.8 L (1.2-3.8) 10^3/uL Arthur # (Auto) 1.3 H (0.3-0.8) 10^3/uL Eos # (Auto) 0.0 (0.0-0.7) 10^3/uL Baso # (Auto) 0.1 (0.0-0.1) 10^3/uL Abs Immat Gran (auto) 0.11 H (0.00-0.03) 10^3/uL Imm/Tot Granulo (auto) 0.6 H (0.0-0.5) % ESR 109 H (<=15) mm/hr Sodium 131 L (136-145) mmol/L Potassium 4.3 (3.5-5.1) mmol/L Chloride 95 L (98-107) mmol/L Carbon Dioxide 22.8 (21.0-32.0) mmol/L Anion Gap 17.5 BUN 29.0 H (7.0-18.0) mg/dL Creatinine 1.92 H (0.70-1.30) mg/dL Est GFR ( Amer) 46 L (>=60 mL/min/1.73m^2) Est GFR (Non-Af Amer) 38 L (>=60 mL/min/1.73m^2) BUN/Creatinine Ratio 15.1 Glucose 199 H (74-106) mg/dL Calcium 9.1 (8.5-10.1) mg/dL C-Reactive Protein 27.88 H (<=0.50) mg/dL Discharge Plan Discharge Chief Complaint: Skin/Abscess/Foreign Body Clinical Impression: Diabetic foot infection Patient Disposition: Admitted As Inpatient Time of Disposition Decision: 12:59 Condition: Good
[2024-04-25 13:01] LABS: Basophils Absolute Auto 0.1 10^3/uL (0.0-0.1); Basophils Percent Auto 0.3 % (0.2-2.0); Eosinophils Percent Auto 0.1 % (0.9-7.0); Hematocrit 35.5 % (42.0-54.0); Hemoglobin 11.9 g/dL (14.0-18.0); Immature Granulocytes Abs Auto 0.11 10^3/uL (0.00-0.03); Immature Granulocytes Pct Auto 0.6 % (0.0-0.5); Lymphocytes Absolute Auto 0.8 10^3/uL (1.2-3.8); Lymphocytes Percent Auto 3.9 % (20.5-60.0); Mean Corpuscular HGB Conc 33.5 g/dL (29.9-35.2); Mean Corpuscular Hemoglobin 30.8 pg (25.9-34.0); Mean Platelet Volume 9.5 fL (9.5-13.5); Monocytes Absolute Auto 1.3 10^3/uL (0.3-0.8); Monocytes Percent Auto 6.4 % (1.7-12.0); Neutrophils Absolute Auto 17.5 10^3/uL (1.4-6.5); Neutrophils Percent Auto 88.7 % (43.0-75.0); Platelet Count 311 10^3/uL (150-450); Red Blood Count 3.86 10^6/uL (4.70-6.10); Red Cell Distribution Width 13.2 % (11.0-15.0); White Blood Count 19.7 10^3/uL (4.0-11.0)
[2024-04-25 13:10] LABS: Erythrocyte Sedimentation Rate 109 mm/hr (<=15)
[2024-04-25 13:17] LABS: Anion Gap 17.5; BUN Creatinine Ratio 15.1; Calcium 9.1 mg/dL (8.5-10.1); Carbon Dioxide 22.8 mmol/L (21.0-32.0); Chloride 95 mmol/L (98-107); Estimated GFR (African America 46 (>=60 mL/min/1.73m^2); Estimated GFR (Non-African Ame 38 (>=60 mL/min/1.73m^2); Glucose 199 mg/dL (74-106); Potassium 4.3 mmol/L (3.5-5.1); Sodium 131 mmol/L (136-145)
[2024-04-25] MEDS: VANCOMYCIN HCL 2,000 MG in 0.9 % SODIUM CHLORIDE 500 ML 250 MG IV (13:36)
[2024-04-25] MEDS: PIPERACILLIN SODIUM/TAZOBACTAM 3.375 GM in 0.9 % SODIUM CHLORIDE 50 ML IV ×2 (13:44→21:58)
[2024-04-25 14:01] LABS: C Reactive Protein 27.88 mg/dL (<=0.50)
--- NOTE | 2024-04-25 14:14 | PM.HP ---
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 He follows regularly at the wound clinic. He was seen there today and was sent to the ER for worsening Plantar foot wound of the right foot. Plan for I&D tomorrow. Pain is controlled. Patient reports daily sugars run 150-160's. He walks on his feet and works at [employer]. ER findings: WBC's 19, Cr 1.9, elevated ESR 109, CRP 27; Patient was given a dose of Vancomycin and Zosyn and was admitted for acute diabetic right foot infection. foot cultures and X-ray were taken today in podiatry clinic Opioid HPI Opioid Management Most Recent Pain and Opioid Data: Last Pain Scale 0 04/25/24 12:51 04/25/24 Last Pain Assessment 04/25/24 15:00 Last ORT Total Score 0 04/25/24 15:00 04/25/24 Last ORT Risk Category Low Risk 04/25/24 15:00 04/25/24 Review of Systems ROS Narrative ROS: a complete review of systems were reviewed with patient and are positive as below or listed in History of Chief Complaint. General: no fever, chills, night sweats Head: no headache, trauma, visual changes, nausea or vomiting Skin: no reported rashes, itching or sores Eyes: no blurriness of vision Ears: no reported hearing loss, vertigo, earache, or tinnitus Throat: no sore throat, hoarseness, swelling of neck, or tongue pain Heart: no chest pain Lungs: no shortness of breath or cough GI: no diarrhea or vomiting/nausea Urinary: no urinary urgency, frequency or pain Neuro: no numbness or tingling HEM: no bleeding issues or bruising ENDO: no thyroid problems Psych: no anxiety or depression [facility] Medical History (Updated 04/25/24 @ 15:45 by Beth Root DO) Diabetes ?E11.9 - Type 2 diabetes mellitus without complications (ICD-10) High cholesterol ?E78.00 - Pure hypercholesterolemia, unspecified (ICD-10) Hypertension ?I10 - Essential (primary) hypertension (ICD-10) Hallux rigidus ?M20.20 - Hallux rigidus, unspecified foot (ICD-10) Acquired equinus deformity of foot ?M21.6X9 - Other acquired deformities of unspecified foot (ICD-10) Diabetic foot ulcer ?E11.621 - Type 2 diabetes mellitus with foot ulcer (ICD-10) ?L97.509 - Non-pressure chronic ulcer of other part of unspecified foot with unspecified severity (ICD-10) 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) ?S98.139A - Complete traumatic amputation of one unspecified lesser toe, initial encounter (ICD-10) COVID-19 (~10/2021) ?U07.1 - COVID-19 (ICD-10) Surgical History S/P operative procedure on foot (~2017) ?Z98.890 - Other specified postprocedural states (ICD-10) S/P debridement (~03/27/18) ?Z98.890 - Other specified postprocedural states (ICD-10) S/P operative procedure on foot (~09/15/18) ?Z98.890 - Other specified postprocedural states (ICD-10) S/P operative procedure on foot (02/15/20) ?Z98.890 - Other specified postprocedural states (ICD-10) S/P operative procedure on foot (09/25/21) ?Z98.890 - Other specified postprocedural states (ICD-10) S/P operative procedure on foot (10/14/21) ?Z98.890 - Other specified postprocedural states (ICD-10) Family History Father Family history of cancer Mother Family history of cancer Family history of diabetes mellitus Social History Within the past year, how often did you have a drink containing alcohol: 2-4 times a month Within the past year, how many standard drinks containing alcohol did you have on a typical day: 1 or 2 Within the past year, how often did you have six or more drinks on one occasion: never Total score: 0 Score interpretation: A score less than 4 is consistent with normal alcohol consumption. Smoking status: Former smoker Second hand tobacco smoke exposure: No Non-prescribed substance use: denies use Previous occupational history: [employer] Known occupational exposures/hazards: No Highest level of school completed/degree received: Associate degree: occupational, technical, vocational program Little interest or pleasure in doing things: not at all Feeling down, depressed, or hopeless: not at all Meds Home Medications and Allergies Home Medications ?Medication ?Instructions ?Recorded ?Confirmed ?Type aspirin 81 mg tablet,delayed 81 mg PO QDAY 10/07/22 04/25/24 History release (Adult Aspirin Regimen) atorvastatin 40 mg tablet 40 mg PO QDAY 10/07/22 04/25/24 History insulin glargine 100 unit/mL 44 unit subcut BID 10/07/22 04/25/24 History subcutaneous solution (Lantus U-100 Insulin) insulin lispro 100 unit/mL 1 sliding scale dose subcut 10/07/22 04/25/24 History subcutaneous solution USEASDIRECTD metformin 500 mg tablet 500 mg PO BID 10/07/22 04/25/24 History dapagliflozin propanediol 10 mg mg 04/25/24 History tablet lisinopril 30 mg tablet 30 mg PO .QD 04/25/24 04/25/24 History Allergies Allergy/AdvReac Type Severity Reaction Status Date / Time No Known Drug Allergies Allergy Verified 10/07/22 14:17 Exam Narrative Exam Narrative: General: Patient is alert, and oriented to person, place and time with normal affect, proper hygiene, obese Skin: right foot with forefoot amputation, plantar surface with dime shaped ulcer with surrounding erythema with blister and ecchymosis formation on the medial foot, right foot and leg are warm to touch with redness extending up lower right leg Head: atraumatic, acephalic Eyes: PERRLA, no nystagmus present, conjunctiva clear, no scleral icterus Ears: normal gross auditory acuity Nose: symmetric, no discharge, no maxillary or frontal sinus tenderness Heart: Normal rate and rhythm, no murmurs/rubs/gallops Lungs: no audible wheezes, crackles and normal breath sounds all lung zelaya Abdomen: Normal audible bowel sounds, no distension, No palpable masses, no organomegaly, no rebound/guarding/ or rigidity Neuro: CN II-X grossly intact Constitutional Vital Signs, click to edit/add: Last Vital Signs Temp 98.5 F 04/25/24 12:35 Pulse 115 H 04/25/24 13:41 Resp 20 04/25/24 13:41 BP 110/68 04/25/24 13:45 Pulse Ox 100 04/25/24 13:41 O2 Del Method Room Air 04/25/24 12:35 Results Labs Labs: Short CBC 04/25/24 Range/Units 12:45 WBC 19.7 H (4.0-11.0) 10^3/uL Hgb 11.9 L (14.0-18.0) g/dL Hct 35.5 L (42.0-54.0) % Plt Count 311 (150-450) 10^3/uL BMP 04/25/24 12:45 Sodium 131 L Potassium 4.3 Chloride 95 L Carbon Dioxide 22.8 BUN 29.0 H Creatinine 1.92 H Glucose 199 H Calcium 9.1 Assessment and Plan Assessment and Plan (1) Diabetic foot infection: Assessment and Plan: patient with leukocytosis, Elevated ESR and CRP. Will place on Vancomycin and Zosyn. culture obtained in clinic today, surgical I&D tomorrow. (2) Diabetic foot ulcer: Assessment and Plan: see #1 Qualifiers: Diabetic foot ulcer location: midfoot Diabetes mellitus type: type 2 Laterality: right Non-pressure ulcer stage: with necrosis of bone Qualified Code(s): E11.621 - Type 2 diabetes mellitus with foot ulcer; 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 (3) Acute on chronic kidney failure: Assessment and Plan: placed on LR @100, renally dose medications. 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: with superintendent container terminal use Diabetes mellitus type: type 2 Qualified Code(s): E11.621 - Type 2 diabetes mellitus with foot ulcer; L97.509 - Non-pressure chronic ulcer of other part of unspecified foot with unspecified severity; 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
--- OUTSIDE RECORDS SUMMARY | 2024-04-25 15:07 | XMS_ITS | CCD ---
Author Organization [facility] Care Team Providers Care Plastic Sewer Name Role Phone Link Ortega Unavailable [...] Damon Claros Attending Provider MD Natalie Hernandez [facility] Provider [place], [facility] Unavailable Damon Claros Attending Unavailable Damon Claros Admitting Unavailable WonderNatalie ruiz MD Primary [facility] Provider Blossom Cody NP Unavailable BLOSSOM CODY Attending Unavailable BLOSSOM CODY [...] take 2 tablets by mouth in the [facility] metFORMIN (Glucophage) 500 MG tablet Take 2 [...] sources) Long-term current use of insulin; Translations: [MCFP (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] 06-17-2023 Episodic Other aftercare (4 sources) MCFP (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 Onset: 01-06-2022 Resolved: [...] 06-09-2023 HbA1c (Bld) [Mass fraction] 8.2 % [employer] Other Glucose - FINGER STICKon Glucose [Mass/Vol] 170 mg/dL [employer] Other HbA1c (Bld) [Mass fraction]o n 06-09-2023 A1C HEMOGLOBIN Incentive Targeting Other A1C HEMOGLOBINon 01-04-2023 HbA1c (Bld) [Mass fraction] 8.9 % [employer] Other Glucose - FINGER STICKon Glucose [Mass/Vol] 201 mg/dL [employer] Other HbA1c (Bld) [Mass fraction]o n 01-04-2023 A1C HEMOGLOBIN Incentive Targeting Other PROF CHEM 8 (BAS METB)on Anion gap [Moles/Vol] 14.3 mmol/L Normal [facility] Comment on above: Performed By: #### B MP #### [facility] [address] [address] [address] Lauri Todd Calcium [Mass/Vol] 9.4 mg/dL Normal 8.5-10.1 [facility] Comment on above: Performed By: #### B MP #### [facility] [address] [address] [address] Lauri Todd Chloride [Moles/Vol] 101 mmol/L Normal 98-107 [facility] Comment on above: Performed By: #### B MP #### [facility] [address] [address] [address] Lauri Todd CO2 [Moles/Vol] 26.2 mmol/L Normal 21.0-32.0 [facility] Comment on above: Performed By: #### B MP #### [facility] [address] [address] [address] Lauri Todd Creatinine [Mass/Vol] 0.90 mg/dL Normal 0.70-1.30 [facility] Comment on above: Performed By: #### B MP #### [facility] [address] [address] [address] Lauri Todd EGFR-AF [place]I >60 Normal >=60 [facility] Comment on above: Performed By: #### B MP #### [facility] [address] [address] [address] Lauri Todd EGFR-NON AF [place] >60 Normal >=60 [facility] Comment on above: Performed By: #### B MP #### [facility] [address] [place] [address] Dr. Lauri Todd Glucose [Mass/Vol] 146 mg/dL Critically high 74-106 T [facility] Comment on above: Performed By: #### B MP #### [facility] [address] [place] [address] Dr. aLuri Todd Potassium [Moles/Vol] 4.5 mmol/L Normal 3.5-5.1 [facility] Comment on above: Performed By: #### B MP #### [facility] [address] [place] [address] Dr. Lauri Todd Sodium [Moles/Vol] 137 mmol/L Normal 136-145 [facility] Comment on above: Performed By: #### B MP #### [facility] [address] [address] [address] Lauri Todd Urea nitrogen [Mass/Vol] 16.0 mg/dL Normal 7.0-18.0 [facility] Comment on above: Performed By: #### B MP #### [facility] [address] [place] [address] Dr. Lauri Todd Urea nitrogen/Creatinin e [Mass ratio] 17.8 mg/mg Normal [facility] Comment on above: Performed By: #### B MP #### [facility] [address] [address] [address] Lauri Todd A1C HEMOGLOBINon 06-25-2022 HbA1c (Bld) [Mass fraction] 8.2 % [employer] Other Glucose - FINGER STICKon Glucose [Mass/Vol] 180 mg/dL [employer] Other HbA1c (Bld) [Mass fraction]o n 06-25-2022 A1C HEMOGLOBIN Incentive Targeting Other XR FOOT LT MIN 3 VIEWSon [...] WHITAKER Date: 2022-05-25 11:52 Normal [facility] A1C HEMOGLOBINon 01-06-2022 HbA1c (Bld) [Mass fraction] 7 % [employer] Other Glucose - FINGER STICKon Glucose [Mass/Vol] 148 mg/dL [employer] Other HbA1c (Bld) [Mass fraction]o n 01-06-2022 A1C HEMOGLOBIN Incentive Targeting Other Basic Metabolic Panelon 04- Anion gap [Moles/Vol] 20 mmol/L Normal 12-20 [facility] [place] [employer] Supervisor Comment on above: Result Comment: Effe ctive 05/15/2019 reference range changed. Performed By: #### B MP #### [facility] [address], [place] [id number] Calcium [Mass/Vol] 10.0 mg/dL Normal 8.6-10.2 [facility] Specialist Comment on above: Performed By: #### B MP #### [facility] [address], [place] [id number] Chloride [Moles/Vol] 100 mmol/L Normal 98-107 [facility] Comment on above: Performed By: #### B MP #### [facility] [address], [place] [id number] CO2 [Moles/Vol] 22 mmol/L Normal 20-31 [facility] Specialist Comment on above: Performed By: #### B MP #### [facility] [address], [place] [id number] Creatinine [Mass/Vol] 0.8 mg/dL Normal 0.7-1.4 [facility] Specialist Comment on above: Performed By: #### B MP #### [facility] [address], [place] [id number] eGFRAA 129 mL/min/1.73m2 Normal >60 [facility] Comment on above: Performed By: #### B MP #### [facility] [address], [place] [id number] eGFRNAA 107 mL/min/1.73m2 Normal >60 [facility] Comment on above: Performed By: #### B MP #### [facility] [address], [place] [id number] Glucose [Mass/Vol] 140 mg/dL High 65-99 [facility] Specialist Comment on above: Result Comment: For FASTING Glucose --- ADA reference ranges: Normal 65-99 mg/dl Prediabetes 100-125 Diabetes >/= 126 Performed By: #### B MP #### [facility] [address], [place] [id number] Potassium [Moles/Vol] 4.3 mmol/L Normal 3.5-5.5 [facility] Specialist Comment on above: Performed By: #### B MP #### [facility] [address], [place] [id number] Sodium [Moles/Vol] 137 mmol/L Normal 135-146 [facility] [place] [employer] Supervisor Comment on above: Performed By: #### B MP #### [facility] [address], [place] [id number] Urea nitrogen [Mass/Vol] 17 mg/dL Normal 7-25 [facility] [place] [employer] Supervisor Comment on above: Performed By: #### B MP #### [facility] [address], [place] [id number] Vital Signs Date Time Vital Sign Value Performing Clinician Facility 04-19-2024 09:47-0500 Body mass index (BMI) [Ratio] 52.21 kg/m2 Blossom Cody FITNESS PLAN COORDINATOR Work Phone: [facility] 04-19-2024 09:47-0500 Body weight 172.19 kg Blossom Cody FITNESS PLAN COORDINATOR Work Phone: [facility] 04-19-2024 09:47-0500 Diastolic blood pressure 72 mm[Hg] Blossom Cody FITNESS PLAN COORDINATOR Work Phone: [facility] 04-19-2024 09:47-0500 Heart rate 84 /min Blossom Cody FITNESS PLAN COORDINATOR Work Phone: [facility] 04-19-2024 09:47-0500 Systolic blood pressure 128 mm[Hg] Blossom Cody FITNESS PLAN COORDINATOR Work Phone: [facility] 01-26-2024 09:59-0400 Body height 182.88 cm [facility] 01-26-2024 09:59-0400 Body mass index (BMI) [Ratio] 51.2 kg/m2 [facility] 01-26-2024 09:59-0400 Body weight 171.54 kg [facility] 01-26-2024 09:59-0400 Diastolic blood pressure 83 mm[Hg] [facility] 01-26-2024 09:59-0400 Heart rate 81 /min [facility] 01-26-2024 09:59-0400 Respiratory rate 18 /min [facility] 01-26-2024 09:59-0400 SaO2% (BldA) [Mass fraction] 94 % [facility] 01-26-2024 09:59-0400 Systolic blood pressure 155 mm[Hg] [facility] 01-19-2024 11:00-0400 Body mass index (BMI) [Ratio] 51.82 kg/m2 Blossom Cody FITNESS PLAN COORDINATOR Work Phone: [facility] 01-19-2024 11:00-0400 Body weight 170.91 kg Blossom Lozoyael FITNESS PLAN COORDINATOR Work Phone: [facility] 01-19-2024 11:00-0400 Diastolic blood pressure 78 mm[Hg] Blossom Lozoyael FITNESS PLAN COORDINATOR Work Phone: [facility] 01-19-2024 11:00-0400 Heart rate 84 /min Blossom Lozoyael FITNESS PLAN COORDINATOR Work Phone: [facility] 01-19-2024 11:00-0400 Systolic blood pressure 136 mm[Hg] Blossom Lozoyael FITNESS PLAN COORDINATOR Work Phone: [facility] 10-19-2023 11:31-0400 Body height 182.88 cm [facility] 10-19-2023 11:31-0400 Body mass index (BMI) [Ratio] 51.7 kg/m2 [facility] 10-19-2023 11:31-0400 Body weight 172.87 kg [facility] 10-19-2023 11:31-0400 Diastolic blood pressure 83 mm[Hg] [facility] 10-19-2023 11:31-0400 Heart rate 74 /min [facility] 10-19-2023 11:31-0400 Respiratory rate 18 /min [facility] 10-19-2023 11:31-0400 SaO2% (BldA) [Mass fraction] 97 % [facility] 10-19-2023 11:31-0400 Systolic blood pressure 149 mm[Hg] [facility] 06-16-2023 11:33-0500 Diastolic blood pressure 84 mm[Hg] Blossom Glo FITNESS PLAN COORDINATOR Work Phone: [facility] 06-16-2023 11:33-0500 Systolic blood pressure 154 mm[Hg] Blossom Cody FITNESS PLAN COORDINATOR Work Phone: [facility] 06-16-2023 11:02-0500 Body mass index (BMI) [Ratio] 52.12 kg/m2 Blossom Cody FITNESS PLAN COORDINATOR Work Phone: [facility] 06-16-2023 11:02-0500 Body weight 171.91 kg Blossom Cody FITNESS PLAN COORDINATOR Work Phone: [facility] 06-16-2023 11:02-0500 Heart rate 92 /min Blossom Cody FITNESS PLAN COORDINATOR Work Phone: [facility] 06-09-2023 08:45-0500 Body height Tondra Mapus Other [facility] Other 06-09-2023 08:45-0500 Body height 182.88 cm MD Natalie Hernandez Work Phone: [facility] 06-09-2023 08:45-0500 Body mass index (BMI) [Ratio] 51.33 kg/m2 Tondra Mapus Other [facility] Other 06-09-2023 08:45-0500 Body weight 171.69 kg Tondra Mapus Other [facility] Other 06-09-2023 08:45-0500 Body weight 171.68 kg MD Natalie Hernandez Work Phone: [facility] 06-09-2023 08:45-0500 Diastolic blood pressure 80 mm[Hg] Tondra Mapus Other [facility] 06-09-2023 08:45-0500 Respiratory rate 18 /min Tondra Mapus Other [facility] Other 06-09-2023 08:45-0500 SaO2% (BldA) [Mass fraction] 94 % Tondra Mapus Other [employer] Other 06-09-2023 08:45-0500 Systolic blood pressure 148 mm[Hg] Tondra Mapus Other [facility] 01-04-2023 08:45-0400 Body height Tondra Mapus Other [employer] Other 01-04-2023 08:45-0400 Body mass index (BMI) [Ratio] 51.37 kg/m2 Tondra Mapus Other [employer] Other 01-04-2023 08:45-0400 Body weight 171.82 kg Tondra Mapus Other [employer] Other 01-04-2023 08:45-0400 Diastolic blood pressure 85 mm[Hg] Tondra Mapus Other [employer] Other 01-04-2023 08:45-0400 Respiratory rate 18 /min Tondra Mapus Other [employer] Other 01-04-2023 08:45-0400 SaO2% (BldA) [Mass fraction] 98 % Tondra Mapus Other [employer] Other 01-04-2023 08:45-0400 Systolic blood pressure 150 mm[Hg] Tondra Mapus Other [employer] Other 06-25-2022 09:45-0500 Body height Tondra Mapus Other [employer] Other 06-25-2022 09:45-0500 Body mass index (BMI) [Ratio] 51.14 kg/m2 Tondra Mapus Other [employer] Other 06-25-2022 09:45-0500 Body weight 171.05 kg Tondra Mapus Other [employer] Other 06-25-2022 09:45-0500 Diastolic blood pressure 80 mm[Hg] Tondra Mapus Other [employer] Other 06-25-2022 09:45-0500 Respiratory rate 18 /min Tondra Mapus Other [employer] Other 06-25-2022 09:45-0500 SaO2% (BldA) [Mass fraction] 95 % Tondra Mapus Other [employer] Other 06-25-2022 09:45-0500 Systolic blood pressure 139 mm[Hg] Tondra Mapus Other [employer] Other 01-06-2022 09:45-0400 Body height Tondra Mapus Other [employer] Other 01-06-2022 09:45-0400 Body mass index (BMI) [Ratio] 48.28 kg/m2 Tondra Mapus Other [employer] Other 01-06-2022 09:45-0400 Body weight 161.48 kg Tondra Mapus Other [employer] Other 01-06-2022 09:45-0400 Diastolic blood pressure 71 mm[Hg] Tondra Mapus Other [employer] Other 01-06-2022 09:45-0400 Respiratory rate 20 /min Tondra Mapus Other [employer] Other 01-06-2022 09:45-0400 SaO2% (BldA) [Mass fraction] 95 % Link Ortega Other [employer] Other 01-06-2022 09:45-0400 Systolic blood pressure 124 mm[Hg] Link Ortega Other [employer] Other Encounters Encounter Date Encounter Type Care Provider Facility Start: 04-19-2024 End: 04-19-2024 [employer] Blossom Cody FITNESS PLAN COORDINATOR Work Phone: [facility] Start: 04-19-2024 End: 04-19-2024 [employer] Blossom Cody FITNESS PLAN COORDINATOR Work Phone: [facility] Start: 04-19-2024 End: 04-19-2024 Patient encounter status Blossom Cody FITNESS PLAN COORDINATOR Work Phone: [facility] Start: 04-19-2024 End: 04-19-2024 Periodic preventive med est patient 40-64yrs Blossom Cody FITNESS PLAN COORDINATOR Work Phone: [facility] Comment on above: Diabetic polyneuropa thy associated with type 2 diabetes mellitus ([facility]) (Primary Dx); Wellness examination; Type 2 diabetes mellitus with neurological manifestation ([facility]); Essential hypertension; 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, subsequent encounter ([facility]); Dyslipidemia ([facility]); Hypertriglyceridemia ([facility]); Poorly controlled diabetes mellitus ([facility]); Type 2 diabetes mellitus with hyperglycemia, with long-term current use of insulin ([facility]); Amputation of toe, traumatic, left, sequela ([facility]); Essential hypertension; Diabetic autonomic neuropathy associated with type 2 diabetes mellitus ([facility]); Acquired hallux valgus, unspecified laterality; Morbid obesity ([facility]); Vitamin B 12 deficiency; 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) Start: 04-19-2024 End: 04-19-2024 ambulatory BLOSSOM CODY Not Available Start: 02-28-2024 End: 02-28-2024 Lenard Hernandez MD Work Phone: [facility] Comment on above: Pure hyperglyceridem ia (CMS/HCC) Start: 01-26-2024 End: 01-26-2024 ambulatory [facility] Work Phone: Start: 01-26-2024 End: 01-26-2024 [facility] Phone: Start: 01-20-2024 Non-patient / [facility]-visit [facility] Work Phone: Start: 01-19-2024 End: 01-19-2024 Office outpatient visit 25 minutes Blossom Cody FITNESS PLAN COORDINATOR Work Phone: [facility] Comment on above: Diabetic polyneuropa thy associated with type 2 diabetes mellitus ([facility]/HCC) (Primary Dx); Type 2 diabetes mellitus with neurological manifestation ([facility]/HCC); Essential hypertension; 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, subsequent encounter ([facility]); Type 2 diabetes mellitus with hyperglycemia, with long-term current use of insulin ([facility]); Dyslipidemia ([facility]/HCC); Hypertriglyceridemia ([facility]/HCC); Amputation of toe, traumatic, left, sequela ([facility]/HCC); Vitamin B 12 deficiency; Pure hyperglyceridemia ([facility]/HCC) Start: 01-19-2024 End: 01-19-2024 ambulatory BLOSSOM CODY Not Available Start: 10-29-2023 End: 10-29-2023 ambulatory MIRLANDE MOORE Not Available Start: 10-19-2023 End: 10-19-2023 ambulatory [facility] Work Phone: Start: 10-19-2023 End: 10-19-2023 Patient encounter procedure [facility] Work Phone: Start: 10-12-2023 End: 10-12-2023 ambulatory MIRLANDE MOORE Not Available Start: 09-15-2023 End: 09-15-2023 ambulatory BLOSSOM CODY Not Available Start: 09-06-2023 End: 09-06-2023 ambulatory MIRLANDE MOORE Not Available Start: 08-02-2023 End: 08-02-2023 ambulatory MIRLANDE MOORE Not Available Start: 07-07-2023 End: 07-07-2023 ambulatory BLOSSOM Kong GLO Not Available Start: 06-16-2023 Bamboo flowsheet Blossom cabrales FITNESS PLAN COORDINATOR Work Phone: [facility] Start: 06-16-2023 Bamboo flowsheet Blossom cabrales FITNESS PLAN COORDINATOR Work Phone: [facility] Start: 06-16-2023 End: 06-16-2023 Office outpatient visit 25 minutes Blossom Cody FITNESS PLAN COORDINATOR Work Phone: [facility] Comment on above: Diabetic polyneuropa thy associated with type 2 diabetes mellitus ([facility]/HCC) (Primary Dx); Diabetic neuropathic arthropathy ([facility]); Type 2 diabetes mellitus with neurological manifestation ([facility]); 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, sequela ([facility]); Ulcer of foot due to type 2 diabetes mellitus ([facility]/HCC); Vitamin B 12 deficiency; Hx of diabetic neuropathy; 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CMS/HCC); Hypertriglyceridemia (CMS/HCC); 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, 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); Essential hypertension; Nasal congestion; Type 2 diabetes mellitus with diabetic autonomic neuropathy, with long-term current use of insulin (CMS/HCC); MCFP (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 (Z79.4); Acquired absence of other toe(s), unspecified side (Z89.429); Type 2 diabetes mellitus with diabetic neuropathy, with long-term current use of insulin ([facility]); Body mass index [BMI] 50.0-59.9, adult (Z68.43); Type 2 diabetes mellitus with foot ulcer, with long-term current use of insulin (CMS/[facility]); 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.49); Status post amputation of lesser toe, unspecified laterality ([facility]); Arthritis of left foot; Acquired hallux valgus of left foot; Type 2 diabetes mellitus with hyperglycemia, with long-term current use of insulin ([facility]); Morbid obesity ([facility]) Start: 06-16-2023 End: 06-16-2023 ambulatory BLOSSOMNETO CODY Not Available Start: 06-15-2023 End: 06-15-2023 ambulatory Tondra Mapus Other [employer] Other Start: 06-15-2023 Telephone encounter Tondra Mapus [facility] Start: 06-09-2023 (DM) Diabetes Tondra Dayannaus [facility] Start: 06-09-2023 End: 06-10-2023 ambulatory MD Natalie Diggs Phone: [employer] Other Start: 06-09-2023 End: 06-09-2023 Discharged Recurring MD [facility] Work [facility]: Start: 06-09-2023 End: 06-09-2023 Patient encounter procedure MD Natalie Diggs Phone: [facility] Start: 01-04-2023 (DM) Diabetes Tondra Dayannaus [facility] Start: 01-04-2023 End: 01-04-2023 ambulatory Tondra Mapus Other [employer] Other Start: 12-21-2022 End: 12-21-2022 ambulatory Tondra Mapus Other [employer] Other Start: 12-21-2022 Telephone encounter Tondra Mapus [facility] Start: 10-12-2022 ambulatory NATANAEL FELDMAN Faci lity:H1 Start: 10-06-2022 End: 10-07-2022 ambulatory NATANAEL FELDMAN Facility:H1 Start: 10-01-2022 Encounter for prepro cedural cardiovascular [facility] Start: 10-01-2022 Encounter for prepro cedural laboratory examination NATANAEL Marks [facility] Start: 09-30-2022 End: 10-01-2022 ambulatory NATANAEL Marks [facility] Facility:H1 Start: 09-30-2022 End: 10-01-2022 Encounter for preprocedural laboratory examination NATANAEL Marks [facility] Facility:H1 Start: 09-15-2022 End: 09-16-2022 ambulatory NATANAEL Selina [facility] Facility:H1 Start: 09-10-2022 End: 09-10-2022 ambulatory Tondra Mapus Other [employer] Other Start: 09-10-2022 Telephone encounter Tondra Mapus [facility] Start: 08-24-2022 End: 08-25-2022 ambulatory NATANAEL Marks [facility] Facility:H1 Start: 08-10-2022 End: 08-10-2022 ambulatory Tondra Mapus Other [employer] Other Start: 08-10-2022 Telephone encounter Tondra Mapus [facility] Start: 08-03-2022 End: 08-04-[address] NATALIE HERNANDEZ Facility:H1 Start: 07-13-2022 End: 07-14-2022 ambulatory MARTELLSARA NAVAS Facility:H1 Start: 06-30-2022 End: 07-01-2022 ambulatory NATANAEL Selina [facility] Facility:H1 Start: 06-25-2022 (DM) Diabetes Tondra Mapus [facility] Start: 06-25-2022 End: 06-25-2022 ambulatory Tondra Mapus Other [employer] Other Start: 06-16-2022 End: 06-17-2022 ambulatory NATANAEL Selina [facility] Facility:H1 Start: 06-08-2022 End: 06-09-2022 ambulatory NATANAEL Marks [facility] Facility:H1 Start: 05-25-2022 End: 05-26-2022 ambulatory [...] 02-18-2022 End: 02-18-2022 ambulatory Tondra Mapus Other [employer] Other Start: 02-18-2022 Telephone encounter Tona Shannon [facility] Start: 02-09-2022 End: 02-10-2022 ambulatory NATANAEL FELDMAN Facility:H1 Start: 01-26-2022 End: 01-27-2022 ambulatory NATANAEL FELDMAN Facility:H1 Start: 01-13-2022 End: 01-14-2022 ambulatory NATANAEL Marks [facility] Facility:H1 Start: 01-06-2022 (DM) Diabetes Tondra [facility] Start: 01-06-2022 End: 01-06-2022 ambulatory Tondra Mapus Other [employer] Other Start: 12-29-2021 End: 12-30-2021 ambulatory NATANAEL [...] post amputation of lesser toe, unspecified laterality ([facility]) Blossom Cody FITNESS PLAN COORDINATOR Work Phone: Plan of Treatment Date Care Activity Detail Author Start: 07-26-2025 Glaucoma screening Diabetes: Retinopathy Screening [facility] Start: 07-19-2024 End: 07-19-2024 Patient encounter procedure 07/19/2024 9:30 AM EDT Office Visit [facility] [address] [place] [address] Blossom Cody NP [address] [place], [place] [id number] [facility] Start: 04-26-2024 Hemoglobin A1c measurement Diabetes: Hemoglobin A1C [facility] Start: 04-19-2024 End: 04-19-2024 Patient encounter procedure [facility] Comment on above: Diabetic polyneuropathy associated with type 2 diabetes mellitus ([facility]) (Primary Dx); Wellness examination; Type 2 diabetes mellitus with neurological manifestation ([facility]); Essential hypertension; 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, subsequent encounter ([facility]); Dyslipidemia ([facility]); Hypertriglyceridemia ([facility]); Poorly controlled diabetes mellitus ([facility]); Type 2 diabetes mellitus with hyperglycemia, with long-term current use of insulin ([facility]); Amputation of toe, traumatic, left, sequela ([facility]) Start: 03-24-2024 Urine screening for protein Diabetes: Urine Protein Screening [facility] Start: 03-15-2024 Influenza vaccination Influenza Vaccine (#1) [facility] Comment on above: Postponed from 01/09/2024 (Patient Refus ed) Start: 01-19-2024 Hemoglobin A1c measurement Diabetes: Hemoglobin A1C [facility] Start: 01-09-2024 Influenza vaccination Influenza Vaccine (#1) [facility] Start: 09-15-2023 End: 09-15-2023 Patient encounter procedure 09/15/2023 9:30 AM EDT [facility] [address] [place] [phone] Blossom Cody NP [address] [place], [place] [phone] [facility] Start: 09-07-2023 Hemoglobin A1c measurement Diabetes: Hemoglobin A1C [facility] Start: 07-26-2023 Glaucoma screening Diabetes: Retinopathy Screening [facility] Start: 07-07-2023 End: 07-07-2023 Patient encounter procedure 07/07/2023 9:00 AM EST [facility] [address] [place] [address] [facility] Start: 06-16-2023 End: 06-16-2023 Patient encounter procedure 06/16/2023 11:00 AM EST [facility] [address] [place] [address] Blossom Cody NP [address] [place], [place] [phone] Diabetic polyneuropathy associated with type 2 diabetes [...] disorder (CMS/HCC); Morbid obesity (CMS/HCC); Hypertriglyceridemia (CMS/HCC) [facility] Comment on above: Diabetic polyneuropathy associated with [...] lic 2000 panel - Serum or Plasma [facility] Patient Education Diabetes and diet [facility] Work Phone: [facility] Immunizations Immunization Date Immunization Notes Care Provider Fa cility 03-14-2024 influenza, seasonal, injectable, preservative free Blossom Cody NP Work Phone: [facility] 03-14-2024 influenza virus vacc ine, unspecified formulation Blossom Glo [employer] PLAN COORDINATOR Work Phone: [facility] 07-05-2023 tetanus and diphther ia toxoids, adsorbed, preservative free, for adult use (2 Lf of tetanus toxoid and 2 Lf of diphtheria toxoid) Blossom Glo FITNESS PLAN COORDINATOR Work Phone: [facility] 03-24-2023 influenza, injectabl e, quadrivalent, preservative free Blossom Glo FITNESS PLAN COORDINATOR Work Phone: [facility] 03-24-2023 influenza virus vacc ine, unspecified formulation Blossom Glo FITNESS PLAN COORDINATOR Work Phone: [facility] 08-26-2021 tetanus and diphther ia toxoids, adsorbed, preservative free, for adult use (5 Lf of tetanus toxoid and 2 Lf of diphtheria toxoid) Blossom Glo FITNESS PLAN COORDINATOR Work Phone: [facility] 03-28-2021 influenza, injectabl e, quadrivalent, preservative free Blossom Glo FITNESS PLAN COORDINATOR Work Phone: [facility] 02-13-2020 Influenza, injectabl e, Madin Nel Canine Kidney, preservative free, quadrivalent Blossom Glo FITNESS PLAN COORDINATOR Work Phone: [facility] 02-22-2019 influenza, injectabl e, quadrivalent, preservative free Blossom Glo FITNESS PLAN COORDINATOR Work Phone: [facility] 02-07-2018 influenza, injectabl e, quadrivalent, preservative free Blossom Glo FITNESS PLAN COORDINATOR Work Phone: [facility] Payers Date Payer Category Payer Private Health Insurance [facility] [id number] 2022 Unknown [id number] 2020 Self-pay [id number] 1979 Unknown [id number] 2.16.840.1.584804.3.579. 2.593 1979 Unknown [id number] 2.16.840.1.082702.3.579. 2.593 1979 Unknown [id number] 2.16.840.1.590050.3.579. 2.593 1979 Unknown [id number] 2.16.840.1.181732.3.579. 2.593 1979 Unknown [id number] 2.16.840.1.455221.3.579. 2.593 1979 Unknown [id number] 2.16.840.1.501319.3.579. 2.593 1979 Unknown [id number] 2.16.840.1.737161.3.579. 2.593 1979 Unknown [id number] 2.16.840.1.548446.3.579. 2.593 1979 Unknown [id number] 2.16.840.1.247190.3.579. 2.593 1979 Unknown [id number] 2.16.840.1.591879.3.579. 2.593 1979 Unknown [id number] 2.16.840.1.291698.3.579. 2.593 1979 Unknown [id number] 2.16.840.1.415891.3.579. 2.593 1979 Unknown [id number] 2.16.840.1.392493.3.579. 2.593 1979 Unknown [id number] 2.16.840.1.156491.3.579. 2.593 1979 Unknown [id number] 2.16.840.1.442314.3.579. 2.593 1979 Unknown [id number] 2.16.840.1.831958.3.579. 2.593 1979 Unknown [id number] 2.16.840.1.783384.3.579. 2.593 1979 Unknown [id number] 2.16.840.1.118998.3.579. 2.593 1979 Unknown [id number] 2.16.840.1.767312.3.579. 2.593 1979 Unknown [id number] 2.16.840.1.043936.3.579. 2.593 1979 Unknown [id number] 2.16.840.1.082229.3.579. 2.593 1979 Unknown [id number] 2.16.840.1.960727.3.579. 2.593 1979 Unknown [id number] 2.16.840.1.782133.3.579. 2.593 1979 Unknown [id number] 2.16.840.1.572239.3.579. 2.593 1979 Unknown [id number] 2.16.840.1.408867.3.579. 2.593 1979 Unknown [id number] 2.16.840.1.221656.3.579. 2.593 1979 Unknown [id number] 2.16.840.1.655161.3.579. 2.593 1979 Unknown [id number] 2.16.840.1.144207.3.579. 2.593 1979 Unknown [id number] 2.16.840.1.454668.3.579. 2.593 1979 Unknown [id number] 2.16.840.1.992623.3.579. 2.593 1979 Unknown [id number] 2.16.840.1.252930.3.579. 2.593 1979 Unknown [id number] 2.16.840.1.129321.3.579. 2.593 1979 Unknown [id number] 2.16.840.1.896607.3.579. 2.593 1979 Unknown [id number] 2.16.840.1.872809.3.579. 2.593 1979 Unknown [id number] 2.16.840.1.719245.3.579. 2.593 1979 Unknown [id number] 2.16.840.1.800587.3.579. 2.593 1979 Unknown [id number] 2.16.840.1.758046.3.579. 2.593 1979 Unknown [id number] 2.16.840.1.631376.3.579. 2.593 1979 Unknown [id number] 2.16.840.1.506154.3.579. 2.593 1979 Unknown [id number] 2.16.840.1.017129.3.579. 2.593 1979 Unknown [id number] 2.16.840.1.255934.3.579. 2.593 1979 Unknown [id number] 2.16.840.1.673563.3.579. 2.1259 1979 Unknown [id number] 2.16.840.1.741474.3.579. 2.1259 1979 Unknown [id number] 2.16.840.1.248808.3.579. 2.1259 1979 Unknown [id number] 2.16.840.1.783723.3.579. 2.1258 1979 Unknown [id number] 2.16.840.1.591397.3.579. 2.1258 1979 Unknown [id number] 2.16.840.1.922591.3.579. 2.1258 1979 Unknown [id number] 2.16.840.1.931471.3.579. 2.1258 1979 Unknown [id number] 2.16.840.1.093507.3.579. 2.1258 1979 Unknown [id number] 2.16.840.1.799604.3.579. 2.9 1959 Unknown [id number] 2.16.840.1.242910.19 1959 Unknown [id number] 2.16.840.1.116585.19 Unknown [id number] 2.16.840.1.333150.3.579. 2.531 Social History Date Type Detail Facility Unknown if ever smoked [employer] Other Start: 03-23-2023 End: 04-19-2024 Sex Assigned At [facility] Start: 12-21-2022 Tobacco smoking status [facility] Never smoked tobacco [facility] Start: 12-21-2022 Tobacco use and exposure Smokeless tobacco non-user [facility] Start: 05-18-2023 End: 04-19-2024 Alcohol intake [...] Start: 1980 Sex Assigned At Male F [facility] Start: 10-19-2023 Tobacco smoking status NHIS Ex-smoker (finding) [facility] Medical Equipment Procedure Code Equipment Code [...] polyneuropathy associated with type 2 diabetes mellitus ([facility]/HCC) Comments: Pt sees endo. HgbA1c 01/31 7.4 (prior 9.7 in October). Enc yearly eye exam. Watch sweets, portions on carbs. Enc to to be as active as able. Endo did lab Jan 19 Urine micro, CMP, Lipid. 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, subsequent encounter ([facility]) Comments: Sees Dr Feldman and Oscar Dyslipidemia ([facility]) Comments: Lipids: Chol 126, Trig 219, HDL 25, LDL 69, ratio 5 per Endo lab in jan Hypertriglyceridemia ([facility]/HCC) Comments: See above last 290 in [...] valgus, unspecified laterality: Sees Podiatry Morbid obesity ([facility]/HCC): See above Vitamin B12 deficiency: 374 on recent lab in Jan Lipoprotein deficiency disorder F/U in July or August for recheck-hypertension/Diabetes, sooner if concerns documented in this encounter [facility] 02-28-2024 Telephone encount er Note Rx sent [facility] 02-28-2024 Miscellaneous Notes Formattin g of this note might be different from the original. Rx sent documented in this encounter [facility] 01-19-2024 History of Presen t illness Narrative [...] polyneuropathy associated with type 2 diabetes mellitus ([facility]) Comments: HgbA1c 9.7 in October. He sees Endo. Plans to do lab for them this week. He has Endo appt next week. Enc yearly eye exams. Enc to watch portions on carbs, avoid sweets. Try to be as active as able. Type 2 diabetes mellitus with neurological manifestation ([facility]) Essential hypertension: Controlled. Pt will verify what dose he has at home ie 30 or 40mg of Lisinopril. 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 Avoid sweets, more fruits and mainly non-starchy vegetables, lean protien, nuts and routine exercise. Amputation of toe, traumatic, left, sequela ([facility]) Vitamin B 12 deficiency Comments: Last Vit B12 351 Pt declined flu vaccine today, prefers to wait into later February, could stop back here or do at work or pharmacy. Does not plan to get any more covid vaccines. Enc to think about Prevnar 20. F/U in 3 months for Wellness, sooner if concerns. PVU documented in this encounter [facility] 06-16-2023 History of Presen t illness Narrative [...] polyneuropathy associated with type 2 diabetes mellitus ([facility]) Comments: Sees Joshua, last HgbA1c 8.11 May 2023 (prior 8.9 end of December). Pt asked me why we can't just take care of his Diabetes, so he doesn't have to go to [facility]. I told him because his sugars are [...] DM care again. 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 Now has left foot toe amputated. Per pt toe is healing Ulcer of foot due to type 2 diabetes mellitus ([facility]/HCC): Hx of Poorly controlled diabetes mellitus ([facility]): Last HgbA1c 8.2 Type 2 diabetes mellitus with hyperglycemia, with long-term current use of insulin ([facility]): As above Vitamin B 12 deficiency Comments: Last WNL at 351 Hx of diabetic neuropathy: Hx of 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CMS/HCC): Hx of Morbid obesity ([facility]) Comments: Enc healthy diet, watch sweets carbs. Balance diet with carb proteinm try to add vegeatbles, Enc physical activity as able Hypertriglyceridemia ([facility]) Comments: Last lipids 04/01 Chol 142, Trig [...] neuropathy, with long-term current use of insulin ([facility]): Hx of [facility]FP (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 (Z79.4): Hx of Acquired absence of other toe(s), unspecified side (Z89.429): Hx of Type 2 diabetes mellitus with diabetic neuropathy, with long-term current use of insulin ([facility]); Hx of Body mass index [BMI] 50.0-59.9, adult (Z68.43): See above. Discussed seeing weight loss provider or seeing someone about gastric bypass-pt declined both. He is not interested in this Type 2 diabetes mellitus with foot ulcer, with long-term current use of insulin ([facility]): Hx of (no ulcer at this time, [...] Type 2 Diabetes mellitus with hyperglycemia with half-way current use of insulin (CMS/[facility]): Hx of Morbid obesity: See above documented in this encounter [facility] 06-15-2023 Evaluation note Encounter Date Diagnosis Assessment Notes Jun, Type 2 diabetes mellitus with hyperglycemia (ICD-10 - E11.65) [employer] Other 01-31-2024 Evaluation note* Encounter Date Diagnosis [...] f/u with pcp for further recommendation May, MCFP current use of insulin (ICD-10 - Z79.4) May, Vitamin B 12 deficiency (ICD-10 - E53.8) 04/01 vit b 12 351 at target May, BMI 50.0-59.9, adult (ICD-10 - Z68.43) see above May, Amputation toe (ICD-10 - Z89.429) Keep f/u with Dr. Feldman May, Cracked skin on feet (ICD-10 - R23.4) keep f/u with Dr. Feldman [employer] Other 08-28-2023 Evaluation note* Encounter Date Diagnosis [...] for Lispro/ozempic 0.5mg sent to [facility] in [place] 01/04/23 7. Prescriptions will not be filled [...] (hypertension) (ICD-10 - I10) on julissa Dec, MCFP current use of insulin (ICD-10 - Z79.4) Dec, Vitamin B 12 deficiency (ICD-10 - E53.8) 12/30 vit b 12 335 at target Dec, BMI 50.0-59.9, adult (ICD-10 - Z68.43) see above Dec, Wound of foot (ICD-10 - S91.309A) pt has apt scheduled with Dr. Feldman today [employer] Other 05-30-2023 NotePROCEDURE: XR FOOT LT MIN [...] by: FRANCO FRANCES Date: 2022-10-06 14:13[facility]05-04-2023 Evaluation note* Encounter Date Diagnosis Assessment Notes Treatment Notes Treatment Clinical Notes September, Type 2 diabetes mellitus with hyperglycemia (ICD-10 - E11.65) [employer] Other 04-17-2023 NotePROCEDURE: XR FOOT LT MIN [...] by: FERN SOSA Date: 2022-08-24 12:46[facility]02-16-2023 Evaluation note* Encounter Date Diagnosis Assessment Notes Treatment Notes Treatment Clinical Notes Jun, Type 2 diabetes mellitus with hyperglycemia (ICD-10 - E11.65) 1. Uncontrolled, a Type 2 diabetes with A1c of 8.2% 2. Blood glucose levels above target. Discussed with pt restarting ozempic, he had s/e from higher dose ozempic 1mg and concern with cost works at [employer]. Pt agreeable to starting sample ozempic 0.5mg [...] Syringes/ozempic/st eglatro sent to [facility] in [place] 06/25/22 7. Prescriptions will not be filled [...] (hypertension) (ICD-10 - I10) on julissa Jun, [facility]FP current use of insulin (ICD-10 - Z79.4) Jun, Vitamin B 12 deficiency (ICD-10 - E53.8) 12/28 vit b 12 423 at target Jun, BMI 50.0-59.9, adult (ICD-10 - Z68.43) [employer] Other 02-07-2023 NotePROCEDURE: XR ANKLE LT MIN [...] by: GISSEL RUBIO Date: 2022-06-16 16:33[facility]02-07-2023 NotePROCEDURE: XR ANKLE LT MIN 3 [...] by: GISSEL RUBIO Date: 2022-06-16 16:33[facility]08-30-2022 Evaluation note* Encounter Date Diagnosis Assessment [...] (ICD-10 - I10) on julissa Dec, 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 (ICD-10 - Z79.4) Dec, Vitamin B 12 deficiency (ICD-10 - E53.8) 12/28 vit b 12 423 at target Dec, BMI 45.0-49.9, adult (ICD-10 - Z68.42) 14 pound weight loss from last visit, continue with weight loss efforts [employer] Other 01-01-2021 History general Narrative - Reported* Type Description Date Medical History type II diabetes Medical History hypertension Medical History hyperlipidemia Medical History covid 05/2020 Surgical History Ulcer on left great toe X2 Surgical History Partial amputation Right great toe 01/2021 Surgical History All toes right foot amputated Hospitalization History Toe infection 2017 [employer] Other 01-01-2021 History general Narrative - Reported* Type Description Date Medical History type II diabetes Medical History hypertension Medical History hyperlipidemia Medical History covid 05/2020 Surgical History Ulcer on left great toe X2 Surgical History Partial amputation Right great toe 01/2021 Surgical History All toes right foot amputated Surgical History Left great toe corre ctive surgery with Dr. Feldman in [place] 10/2022 Hospitalization History Toe infection 2017 [facility] Other chief complaint+Reason for visit Narrative* Chief Complaint no meter Reason for Visit BMI 50.0-59.9, adult Dietary counseling and surveillance Hypertension Mixed hyperlipidemia Type 2 diabetes mellitus with hyperglycemia [facility] Work Phone: Chiys complaint+Reason for visit Narrative* Chief Complaint meter Reason for Visit BMI 50.0-59.9, adult Dietary counseling and surveillance Hypertension Mixed hyperlipidemia Type 2 diabetes mellitus with hyperglycemia Wound of left foot Wound of right foot [facility] Work Phone: Evaluation [facility]No [facility] Other Evaluation note* Diagnosis Diabetic polyneuropathy associated with type 2 diabetes mellitus ([facility]/HCC)- Primary Diabetic neuropathic arthropathy ([facility]/HCC) Type II or unspecified type diabetes mellitus with neurological manifestations, not stated as uncontrolled Type 2 diabetes mellitus with neurological manifestation ([facility]) 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, sequela ([facility]) Ulcer of foot due to type 2 diabetes mellitus ([facility]/HCC) Vitamin B 12 deficiency Other B-complex deficiencies Hx of diabetic neuropathy 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) Lipoprotein deficiencies Hypertriglyceridemia ([facility]) Pure hyperglyceridemia 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, 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) Essential hypertension Unspecified essential hypertension Nasal congestion Other diseases of nasal cavity and sinuses Type 2 diabetes mellitus with diabetic autonomic neuropathy, with long-term current use of insulin ([facility]/HCC) 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 (Z79.4) Acquired absence of other toe(s), unspecified side (Z89.429) Type 2 diabetes mellitus with diabetic neuropathy, with long-term current use of insulin ([facility]/HCC) Body mass index [BMI] 50.0-59.9, adult (Z68.43) Type 2 diabetes mellitus with foot ulcer, with long-term current use of insulin ([facility]/HCC) 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.49) Status post amputation of lesser toe, unspecified laterality ([facility]) Arthritis of left foot Acquired hallux valgus of left foot Type 2 diabetes mellitus with hyperglycemia, with long-term current use of insulin ([facility]) Morbid obesity ([facility]) Morbid obesity documented in this encounter [facility] HealthcareEvaluation noteNo assessment information availableMckit[facility] Work Phone: Evaluation note* Diagnosis Onset Date Resolution Status BMI 50.0-59.9, adult acute Dietary counseling and surveillance acute Hypertension acute Mixed hyperlipidemia acute Type 2 diabetes mellitus with hyperglycemia acute [facility] Work Phone: Evaluation note* Diagnosis Onset Date Resolution Status BMI 50.0-59.9, adult acute Dietary counseling and surveillance acute Hypertension acute Mixed hyperlipidemia acute Type 2 diabetes mellitus with hyperglycemia acute Wound of left foot acute Wound of right foot acute [facility] Work Phone: Evaluation note* Diagnosis Pure hyperglyceridemia ([facility]) Pure hyperglyceridemia documented in this encounter [facility] HealthcareEvaluation note* Diagnosis Diabetic polyneuropathy associated with type 2 diabetes mellitus ([facility])- Primary Type 2 diabetes mellitus with neurological manifestation ([facility]) Essential hypertension Unspecified essential hypertension 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, subsequent encounter ([facility]) Type 2 diabetes mellitus with hyperglycemia, with long-term current use of insulin ([facility]) Dyslipidemia ([facility] Other and unspecified hyperlipidemia Hypertriglyceridemia ([facility]) Pure hyperglyceridemia Vitamin B 12 deficiency Other B-complex deficiencies Pure hyperglyceridemia ([facility]) Pure hyperglyceridemia documented in this encounter [facility] HealthcareEvaluation note* Diagnosis Diabetic polyneuropathy associated with type 2 diabetes mellitus ([facility])- Primary Wellness examination Type 2 diabetes mellitus with neurological manifestation ([facility]) Essential hypertension Unspecified essential hypertension 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, subsequent encounter ([facility]) Dyslipidemia ([facility]) Other and unspecified hyperlipidemia Hypertriglyceridemia ([facility]) Pure hyperglyceridemia Poorly controlled diabetes mellitus ([facility]) Type II or unspecified type diabetes mellitus without mention of complication, not stated as uncontrolled Type 2 diabetes mellitus with hyperglycemia, with long-term current use of insulin ([facility]) Diabetic autonomic neuropathy associated with type 2 diabetes mellitus ([facility]) Type II or unspecified type diabetes mellitus with neurological manifestations, not stated as uncontrolled Acquired hallux valgus, unspecified laterality Morbid obesity (CMS/HCC) Morbid obesity Vitamin B 12 deficiency Other B-complex deficiencies 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CMS/[facility]) Lipoprotein deficiencies documented in this encounter [facility] [...] section and content) DATE CREATED AUTHOR 08/27/2021 [facility] dical Specialist DATE CREATED AUTHOR AUTHOR'S ORGANIZ ATION 10/17/[address] 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 Specialty Start Date End Date Natalie Hernandez MD [address] [place] [address] PCP - General Family Medicine 09/15/22 Plastic Sewer Relationship Specialty Start Date End Date Natalie Hernandez MD [address] [place] [address] PCP - General Family Medicine 09/15/22 Team [...] October 19, 2023 End: October 19, 2023 Plastic Sewer Relationship Specialty Start Date End Date Natalie Hernandez MD [address] [place] [address] PCP - General Family Medicine 09/15/22 Blossom Cody NP [address] [place] [address] Nurse Practitioner Family Medicine 01/19/24 Plastic Sewer Relationship Specialty Start Date End Date Natalie Hernandez MD [address] [place] [address] PCP - General Family Medicine 09/15/22 Blossom Cody NP [address] [facility] [place] [address] Nurse Practitioner Family Medicine 01/19/24 Plastic Sewer Relationship Specialty Start Date End Date Natalie Hernandez MD [address] [place] [address] PCP - General Family Medicine 09/15/22 Blossom Cody NP [address] [place] [address] Nurse Practitioner Family [facility] 01/19/24 Plastic Sewer Relationship Specialty Start Date End Date Natalie Hernandez MD [address] [place] [address] PCP - General Family Medicine 09/15/22 Blossom Cody NP [address] [place] [address] Nurse Practitioner Family [facility] 01/19/24 Goals (unrecognized section and content) Goals [...] BE BASED ON THE PRIMARY CLINICAL RECORDS. [facility]. provides no warranty or guarantee of the accuracy or completeness of information in this document.
--- NOTE | 2024-04-25 15:49 | SWNOTE1 ---
SW reviewed ED note, plan is for pt to have I&D tomorrow morning. SW to assess needs tomorrow.
[2024-04-25] MEDS: INSULIN ASPART 300 UNIT/3 ML PEN SUBQ ×2 (16:01→21:58)
[2024-04-25] MEDS: LACTATED RINGER'S SOLUTION 1,000 ML 100 ML IV (16:07)
[2024-04-25 16:11] LABS: Glucometer 244 mg/dL (74-106)
[2024-04-25 20:08] LABS: Glucometer 249 mg/dL (74-106)
[2024-04-25] MEDS: ATORVASTATIN CALCIUM 40 MG TABLET PO (21:58)
[2024-04-25] MEDS: INSULIN GLARGINE 300 UNIT/3 ML INSULN.PEN 22 UNIT SQ (21:58)
[2024-04-25] MEDS: HYDROXYZINE PAMOATE 25 MG CAPSULE PO (21:58)
[2024-04-26] VITALS (21 sets, daily range): BP systolic 93–118; BP diastolic 51–79; PULSE 92–117; TEMP 36.6–38.2; O2SAT 92–97
[2024-04-26] MEDS: VANCOMYCIN HCL 2,000 MG in 0.9 % SODIUM CHLORIDE 500 ML 250 MG IV ×2 (02:10→17:48)
[2024-04-26] MEDS: LACTATED RINGER'S SOLUTION 1,000 ML 100 ML IV ×3 (02:10→21:28)
[2024-04-26] MEDS: PIPERACILLIN SODIUM/TAZOBACTAM 3.375 GM in 0.9 % SODIUM CHLORIDE 50 ML IV ×3 (05:18→21:28)
[2024-04-26 06:04] LABS: Basophils Percent Auto 0.3 % (0.2-2.0); Eosinophils Absolute Auto 0.1 10^3/uL (0.0-0.7); Eosinophils Percent Auto 0.5 % (0.9-7.0); Hematocrit 33.6 % (42.0-54.0); Immature Granulocytes Abs Auto 0.06 10^3/uL (0.00-0.03); Immature Granulocytes Pct Auto 0.5 % (0.0-0.5); Lymphocytes Absolute Auto 0.9 10^3/uL (1.2-3.8); Lymphocytes Percent Auto 6.7 % (20.5-60.0); Mean Corpuscular HGB Conc 32.7 g/dL (29.9-35.2); Mean Corpuscular Hemoglobin 30.6 pg (25.9-34.0); Mean Corpuscular Volume 93.6 fL (80.0-94.0); Mean Platelet Volume 9.4 fL (9.5-13.5); Monocytes Percent Auto 7.4 % (1.7-12.0); Neutrophils Absolute Auto 10.9 10^3/uL (1.4-6.5); Neutrophils Percent Auto 84.6 % (43.0-75.0); Platelet Count 267 10^3/uL (150-450); Red Blood Count 3.59 10^6/uL (4.70-6.10); Red Cell Distribution Width 13.2 % (11.0-15.0); White Blood Count 12.8 10^3/uL (4.0-11.0)
[2024-04-26 06:19] LABS: INR 1.14; Partial Thromboplastin Time 33.3 sec (22.3-36.2); Prothrombin Time 11.9 sec (9.0-11.6)
[2024-04-26 06:22] LABS: Alanine Aminotransferase 23 U/L (16-63); Albumin Globulin Ratio 0.6; Albumin Level 2.7 g/dL (3.4-5.0); Alkaline Phosphatase 71 U/L (46-116); Anion Gap 16.9; Aspartate Amino Transferase 16 U/L (15-37); BUN Creatinine Ratio 13.9; Bilirubin Total 0.8 mg/dL (0.2-1.0); Calcium 8.7 mg/dL (8.5-10.1); Carbon Dioxide 22.5 mmol/L (21.0-32.0); Chloride 100 mmol/L (98-107); Estimated GFR (African America >60 (>=60 mL/min/1.73m^2); Estimated GFR (Non-African Ame 53 (>=60 mL/min/1.73m^2); Globulin 4.5 g/dL; Glucose 161 mg/dL (74-106); Potassium 4.4 mmol/L (3.5-5.1); Sodium 135 mmol/L (136-145); Total Protein 7.2 g/dL (6.4-8.2)
--- NOTE | 2024-04-26 07:55 | PM.PN ---
Progress Note: Subjective Subjective Interval history: Patient reports the Vistaril did not help with sleep last night and he is anxious for surgery today. He denies pain or discomfort, no fevers or chills, no n/v/d. He has been NPO for surgery this morning. Exam Narrative Exam Narrative: General: Patient is alert, and oriented to person, place and time with normal affect, poor hygiene, obese Skin: right foot with forefoot amputation, plantar surface with dime shaped ulcer with surrounding erythema with blister and ecchymosis formation on the medial foot, right foot and leg are warm to touch with redness extending up lower right leg Head: atraumatic, acephalic Eyes: PERRLA, no nystagmus present, conjunctiva clear, no scleral icterus Ears: normal gross auditory acuity Nose: symmetric, no discharge, no maxillary or frontal sinus tenderness Heart: Normal rate and rhythm, no murmurs/rubs/gallops Lungs: no audible wheezes, crackles and normal breath sounds all lung zelaya Abdomen: Normal audible bowel sounds, no distension, No palpable masses, no organomegaly, no rebound/guarding/ or rigidity Neuro: CN II-X grossly intact Constitutional Vital Signs, click to edit/add: Last Vital Signs Temp 98.3 F 04/26/24 07:49 Pulse 106 H 04/26/24 07:49 Resp 16 04/26/24 07:49 BP 118/65 04/26/24 07:49 Pulse Ox 95 04/26/24 07:49 O2 Del Method Room Air 04/26/24 07:49 Progress Note: Objective Labs Labs: Short CBC 04/25/24 04/26/24 Range/Units 12:45 05:53 WBC 19.7 H 12.8 H (4.0-11.0) 10^3/uL Hgb 11.9 L 11.0 L (14.0-18.0) g/dL Hct 35.5 L 33.6 L (42.0-54.0) % Plt Count 311 267 (150-450) 10^3/uL BMP 04/25/24 04/26/24 12:45 05:53 Sodium 131 L 135 L Potassium 4.3 4.4 Chloride 95 L 100 Carbon Dioxide 22.8 22.5 BUN 29.0 H 20.0 H Creatinine 1.92 H 1.44 H Glucose 199 H 161 H Calcium 9.1 8.7 Liver Function 04/26/24 Range/Units 05:53 Total Bilirubin 0.8 (0.2-1.0) mg/dL AST 16 (15-37) U/L ALT 23 (16-63) U/L Alkaline Phosphatase 71 (46-116) U/L Albumin 2.7 L (3.4-5.0) g/dL Progress Note: A&P Assessment and Plan (1) Diabetic foot infection: Assessment and Plan: patient with leukocytosis that is improving (19 to 12.8), Elevated ESR and CRP. continue on Vancomycin and Zosyn. culture obtained in clinic 04/25/24, surgical I&D today (2) Diabetic foot ulcer: Assessment and Plan: see #1 Qualifiers: Diabetic foot ulcer location: midfoot Diabetes mellitus type: type 2 Laterality: right Non-pressure ulcer stage: with necrosis of bone Qualified Code(s): E11.621 - Type 2 diabetes mellitus with foot ulcer; 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 (3) Acute on chronic kidney failure: Assessment and Plan: continue LR @100, renally dose medications. monitor Qualifiers: Acute renal failure type: unspecified Chronic kidney disease stage: unspecified stage Qualified Code(s): N17.9 - Acute kidney failure, unspecified; N18.9 - Chronic kidney disease, unspecified (4) Diabetes: Assessment and Plan: given 1/2 long acting insulin last night for 22 units lantus since patient will be NPO, Will resume 44 units after surgery, SSI with accuchecks Qualifiers: Diabetes mellitus type: type 2 Diabetes mellitus long filler cigar roller machine insulin use: with long filler cigar roller machine use Diabetes mellitus complication status: with skin complications Diabetes mellitus complication detail: with foot ulcer Qualified Code(s): E11.621 - Type 2 diabetes mellitus with foot ulcer; L97.509 - Non-pressure chronic ulcer of other part of unspecified foot with unspecified severity; Z79.4 - half-way (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 (5) High cholesterol: Assessment and Plan: continue atorvastatin (6) Hypertension: Assessment and Plan: continue lisinopril Qualifiers: Hypertension type: secondary to endocrine disorders Qualified Code(s): I15.2 - Hypertension secondary to endocrine disorders Plan Patient is a full code SCD's for DVT prophylaxis, lovenox after surgery To surgery today, continue antibiotics broad spectrum until cultures result.
--- NOTE | 2024-04-26 08:57 | PM.ORONB ---
Brief Operative Note Date of procedure: 04/26/24 Pre-op diagnosis general: Right diabetic foot ulcer and infection with abscess, cellulitis and possible osteomyelitis Post-op diagnosis: same as pre-op Procedure: Procedure performed: Incision and drainage of right diabetic foot infection, implantation of nonbiodegradable antibiotic cement beads and application of short leg splint as part of staged procedure Indications for procedure: Patient is a 43-year-old male with type 2 diabetes, history of nontraumatic foot amputation, recurrent nonhealing diabetic foot ulcer and peripheral neuropathy who presented to our wound center yesterday. Patient related that on Wednesday he noticed that there was redness and increased drainage, malodor and swelling to his right foot prompting him to call the office yesterday morning to be evaluated. At that time it was clear that the patient had local soft tissue infection. Cultures were taken by Dodie Stinson PA-c and patient was sent to the ER for further evaluation and management. Upon presentation to the emergency department patient was slightly tachycardic but afebrile and slightly hypertensive. Patient had remarkable leukocytosis of greater than 19,000, ESR greater than 100 and CRP of 27. He was admitted to the hospitalist and placed on vancomycin and Zosyn. His white blood cell count dropped significantly and remained hemodynamically stable overnight. Given his significant infection I recommended surgical intervention as part of a staged procedure to clear his infection and to salvage his limb. I stressed to the patient that he is at tremendously high risk for major amputation and loss of life given the severity of his infection. Intraoperative findings: Ulcer plantar medial foot with purulent drainage and necrosis. Putrid malodor. Purulence and necrosis tracked up the posterior tibial and anterior tibial tendons as well as along the plantar fascia. Extensive soft tissue defect measuring 18 x 9 cm. No obvious bone exposure. Procedure in detail: Patient was identified in preop holding by myself which time correct side and site were marked and consent was obtained. Patient was brought back to the operating theater placed on table in supine position. No additional IV antibiotics were given as patient is receiving vancomycin and Zosyn on the floor. The right lower extremity was prepped and draped in usual sterile fashion and IV sedation was administered. Formal timeout was performed. Local anesthesia was also administered using 20 cc of 1% lidocaine plain. The ulceration located on the plantar medial foot was excised evacuating significant amount of purulence. Combination of sharp and blunt dissection excising all necrosis and questionable tissue was performed down to and including the plantar fascia and tracking along the posterior tibial and anterior tibial tendons. The tendon sheaths were intact. After extensive debridement a large soft tissue deficit with healthy granular bed was noted. Cultures were taken of the purulence as well as soft tissue was sent to the lab for analysis.Hemostasis was controlled on the field with a temporary pressure dressing as well as Gelfoam and thrombin. While the temporary pressure dressing was in place on the back table PMMA cement mixed with gentamicin and vancomycin was prepared into beads. Once the cement was ready The pressure dressing was removed and the antibiotic cement beads were placed into the soft tissue deficit. Several retention sutures were also placed for added hemostasis. The wound was left open and was packed with Betadine soaked Kerlix, ABDs and additional Kerlix. Then a multilayer modified Pastor splint was placed. Patient tolerated the procedure and anesthesia well was transferred to the recovery room with vital signs stable. Postoperative plan: CBC in PACu - Dr. Root notified Transfer to medical surgical unit under the hospitalist care. Continue broad-spectrum antibiotics. Follow cultures Strict nonweightbearing to right foot Plan for repeat I&D on Wednesday Implants: PMMA cement beads with vancomycin & gentamycin Anesthesia: MAC Surgeon: Jesus Feldman Estimated blood loss (mL): 500 Tourniquet time (min): 0 Pathology: other (tissue right foot) Condition: stable Disposition: PACU
[2024-04-26] MEDS: THROMBI-GEL SIZE 40 HEMOSTAT 3 EACH TOPICAL (09:40)
[2024-04-26] MEDS: LIDOCAINE HCL 1% 100 MG/10 ML MDV 20 ML INJ (09:51)
[2024-04-26] MEDS: VANCOMYCIN HCL 1,000 MG VIAL 2000 MG TOPICAL (10:00)
--- NOTE | 2024-04-26 10:11 | XR_ITS ---
The [address] [address] Patient Name: JANETH MCKEON MRN: [id number] date: 1980 Sex: M Assigned Patient Location: MS Current Patient Location: [place] Accession/Order Number: [id number] Exam Date: 04/26/2024 10:30 Report Date: 04/26/2024 11:55 At the request of: NATANAEL MARAVILLA Procedure: XR foot RT min 3V PROCEDURE: XR foot RT min 3V HISTORY: infection s/p I D abx beads COMPARISON: Ultrasound foot right 04/25/2024 FINDINGS: BONES:Prior amputation of the forefoot. Previously seen cortical irregularity along the plantar surface of the midfoot. SOFT TISSUES:Interval placement of numerous antibiotic beads on plantar surface of the foot and medial to the hindfoot. Soft tissue swelling surrounding the foot. Images were obtained through cast material. EFFUSION:None visible. OTHER: Negative. XR/XR foot RT min 3V IMPRESSION: 1. Interval placement of antibiotic pellets plantar and medial to the foot. Electronically authenticated by: GISSEL RUBIO Date: 04/26/2024 11:55
[2024-04-26 10:27] LABS: Glucometer 172 mg/dL (74-106)
[2024-04-26 10:32] LABS: Basophils Percent Auto 0.3 % (0.2-2.0); Eosinophils Absolute Auto 0.1 10^3/uL (0.0-0.7); Eosinophils Percent Auto 0.7 % (0.9-7.0); Hematocrit 29.7 % (42.0-54.0); Immature Granulocytes Abs Auto 0.06 10^3/uL (0.00-0.03); Immature Granulocytes Pct Auto 0.5 % (0.0-0.5); Lymphocytes Absolute Auto 0.9 10^3/uL (1.2-3.8); Lymphocytes Percent Auto 7.3 % (20.5-60.0); Mean Corpuscular HGB Conc 33.7 g/dL (29.9-35.2); Mean Corpuscular Hemoglobin 31.6 pg (25.9-34.0); Mean Platelet Volume 9.3 fL (9.5-13.5); Monocytes Absolute Auto 0.9 10^3/uL (0.3-0.8); Monocytes Percent Auto 7.8 % (1.7-12.0); Neutrophils Percent Auto 83.4 % (43.0-75.0); Platelet Count 248 10^3/uL (150-450); Red Blood Count 3.16 10^6/uL (4.70-6.10); Red Cell Distribution Width 13.2 % (11.0-15.0)
[2024-04-26 11:09] LABS: Glucometer 158 mg/dL (74-106)
[2024-04-26] MEDS: INSULIN ASPART 300 UNIT/3 ML PEN SUBQ ×3 (11:12→21:29)
[2024-04-26] MEDS: INSULIN GLARGINE 300 UNIT/3 ML INSULN.PEN 22 UNIT SQ (11:12)
[2024-04-26 11:23] LABS: Enterococcus faecalis NOT DETECTED (NOT DETECTE); Enterococcus faecium NOT DETECTED (NOT DETECTE); Listeria monocytogenes NOT DETECTED (NOT DETECTE); Staphylococcus epidermidis NOT DETECTED (NOT DETECTE); Staphylococcus lugdunensis NOT DETECTED (NOT DETECTE); Staphylococcus spp. NOT DETECTED (NOT DETECTE); Streptococcus agalactiae NOT DETECTED (NOT DETECTE)
[2024-04-26 11:24] LABS: A. calcoaceticus-baumannii Cpx NOT DETECTED (NOT DETECTE); Bacteroides fragilis NOT DETECTED (NOT DETECTE); Candida albicans NOT DETECTED (NOT DETECTE); Candida auris NOT DETECTED (NOT DETECTE); Candida glabrata NOT DETECTED (NOT DETECTE); Candida krusei NOT DETECTED (NOT DETECTE); Candida parapsilosis NOT DETECTED (NOT DETECTE); Candida tropicalis NOT DETECTED (NOT DETECTE); Cryptococcus neoformans/gattii NOT DETECTED (NOT DETECTE); Enterobacter cloacae complex NOT DETECTED (NOT DETECTE); Enterobacterales NOT DETECTED (NOT DETECTE); Haemophilus influenzae NOT DETECTED (NOT DETECTE); Klebsiella aerogenes NOT DETECTED (NOT DETECTE); Klebsiella pneumoniae group NOT DETECTED (NOT DETECTE); Neisseria meningitidis NOT DETECTED (NOT DETECTE); Proteus spp. NOT DETECTED (NOT DETECTE); Pseudomonas aeruginosa NOT DETECTED (NOT DETECTE); Salmonella spp. NOT DETECTED (NOT DETECTE); Serratia marcescens NOT DETECTED (NOT DETECTE); Stenotrophomonas maltophilia NOT DETECTED (NOT DETECTE); Streptococcus pneumoniae NOT DETECTED (NOT DETECTE); Streptococcus pyogenes NOT DETECTED (NOT DETECTE)
--- NOTE | 2024-04-26 12:18 | SWNOTE1 ---
Pt is NWB to right foot. SW to stop in and assess any discharge needs.
--- NOTE | 2024-04-26 13:14 | SWNOTE1 ---
Pt working with physical therapy, SW to stop back in once therapy is done.
--- NOTE | 2024-04-26 13:51 | SWNOTE1 ---
SW met with pt to discuss dc needs. Pt normally lives at home alone. For his recovery he will be staying with his parents on the first floor. He used the knee scooter here with therapy and has used one in the past. His plan is to go rent one from [employer]. SW advised pt that the abraham has gone up to around $50 per month. He voiced understanding. SW mentioned HH services coming in, but pt does not feel it is necessary at this time. Pt plans on scooting up the 3 steps to get in to the home. At this time pt has no other dc needs or concerns. SW to follow as needed. SW to review therapy notes as well. Pt has already refused HH services.
[2024-04-26 14:25] LABS: Source Blood; Streptococcus spp. DETECTED (NOT DETECTE)
--- NOTE | 2024-04-26 14:54 | SWNOTE1 ---
SW reviewed therapy notes, and home health is recommended. SW to check again with pt.
--- NOTE | 2024-04-26 14:59 | SWNOTE1 ---
BRETT stopped back in and advised pt that home health PT was recommended. Pt did ask what that consisted of. SW let him know that a physical therapist would come in to home and assess the patient and the home and give recommendations. They would do therapy for some strengthening for a short time and it would be covered by insurance. Pt did ask if they would do his dishes or laundry, BRETT stated no. That would be private caregivers. At this time pt is refusing home health PT. BRETT advised pt if he changes his mind to let BRETT know. Plan is for pt to go back to surgery on Wednesday.
[2024-04-26 16:05] LABS: Glucometer 290 mg/dL (74-106)
[2024-04-26 18:38] LABS: Lactate/Lactic Acid 1.1 mmol/L (0.4-2.0)
[2024-04-26 21:03] LABS: Glucometer 381 mg/dL (74-106)
[2024-04-26] MEDS: INSULIN GLARGINE 300 UNIT/3 ML INSULN.PEN 44 UNIT SQ (21:28)
[2024-04-26] MEDS: ATORVASTATIN CALCIUM 40 MG TABLET PO (21:29)
[2024-04-26] MEDS: TEMAZEPAM 15 MG CAPSULE 30 MG PO (21:29)
[2024-04-26] MEDS: ACETAMINOPHEN 500 MG TABLET 1000 MG PO (23:44)
[2024-04-27] VITALS (17 sets, daily range): BP systolic 93–152; BP diastolic 55–77; PULSE 78–98; TEMP 36.4–37.6; O2SAT 92–97
[2024-04-27] MEDS: VANCOMYCIN HCL 2,000 MG in 0.9 % SODIUM CHLORIDE 500 ML 250 MG IV ×2 (04:07→17:25)
[2024-04-27] MEDS: PIPERACILLIN SODIUM/TAZOBACTAM 3.375 GM in 0.9 % SODIUM CHLORIDE 50 ML IV ×3 (06:20→22:04)
--- NOTE | 2024-04-27 06:36 | PC.NURSE ---
drainage seeping through dressing around the heel/bottom of pt's foot. RN reinforced with one ABD and GINA wrap. pt denies pain at this time. RN also added multiple pillows under his foot and raised the foot of the bed.
[2024-04-27 07:00] LABS: Basophils Absolute Auto 0.1 10^3/uL (0.0-0.1); Basophils Percent Auto 0.6 % (0.2-2.0); Eosinophils Absolute Auto 0.2 10^3/uL (0.0-0.7); Eosinophils Percent Auto 2.5 % (0.9-7.0); Hematocrit 30.7 % (42.0-54.0); Hemoglobin 10.2 g/dL (14.0-18.0); Immature Granulocytes Abs Auto 0.04 10^3/uL (0.00-0.03); Immature Granulocytes Pct Auto 0.5 % (0.0-0.5); Lymphocytes Absolute Auto 1.1 10^3/uL (1.2-3.8); Lymphocytes Percent Auto 12.6 % (20.5-60.0); Mean Corpuscular HGB Conc 33.2 g/dL (29.9-35.2); Mean Corpuscular Hemoglobin 31.5 pg (25.9-34.0); Mean Corpuscular Volume 94.8 fL (80.0-94.0); Mean Platelet Volume 9.8 fL (9.5-13.5); Monocytes Absolute Auto 0.8 10^3/uL (0.3-0.8); Monocytes Percent Auto 9.1 % (1.7-12.0); Neutrophils Absolute Auto 6.5 10^3/uL (1.4-6.5); Neutrophils Percent Auto 74.7 % (43.0-75.0); Platelet Count 253 10^3/uL (150-450); Red Blood Count 3.24 10^6/uL (4.70-6.10); Red Cell Distribution Width 13.4 % (11.0-15.0); White Blood Count 8.8 10^3/uL (4.0-11.0)
[2024-04-27 07:16] LABS: Alanine Aminotransferase 24 U/L (16-63); Albumin Globulin Ratio 0.5; Albumin Level 2.5 g/dL (3.4-5.0); Alkaline Phosphatase 71 U/L (46-116); Anion Gap 13.6; Aspartate Amino Transferase 19 U/L (15-37); BUN Creatinine Ratio 11.9; Bilirubin Total 0.5 mg/dL (0.2-1.0); Calcium 8.4 mg/dL (8.5-10.1); Carbon Dioxide 24.6 mmol/L (21.0-32.0); Chloride 102 mmol/L (98-107); Estimated GFR (African America >60 (>=60 mL/min/1.73m^2); Estimated GFR (Non-African Ame 58 (>=60 mL/min/1.73m^2); Globulin 4.7 g/dL; Glucose 162 mg/dL (74-106); Potassium 4.2 mmol/L (3.5-5.1); Sodium 136 mmol/L (136-145); Total Protein 7.2 g/dL (6.4-8.2)
[2024-04-27 07:55] LABS: Glucometer 191 mg/dL (74-106)
--- NOTE | 2024-04-27 08:19 | PM.PN ---
Progress Note: Subjective Subjective Interval history: Patient is Post op day #1 from I&D of the right foot, intraop findings: Ulcer plantar medial foot with purulent drainage and necrosis. Putrid malodor. Purulence and necrosis tracked up the posterior tibial and anterior tibial tendons as well as along the plantar fascia. Patient did have a fever last night 100.8, Lactate drawn was 1.1. Blood cultures positive for Strep species. Patient reports no pain. Slept much better with Restoril. No complaints this morning. Exam Narrative Exam Narrative: General: Patient is alert, and oriented to person, place and time with normal affect, poor hygiene, obese Skin: right foot elevated with surgical dressing intact Head: atraumatic, acephalic Eyes: PERRLA, no nystagmus present, conjunctiva clear, no scleral icterus Ears: normal gross auditory acuity Nose: symmetric, no discharge, no maxillary or frontal sinus tenderness Heart: Normal rate and rhythm, no murmurs/rubs/gallops Lungs: no audible wheezes, crackles and normal breath sounds all lung zelaya Abdomen: Normal audible bowel sounds, no distension, No palpable masses, no organomegaly, no rebound/guarding/ or rigidity Neuro: CN II-X grossly intact Constitutional Vital Signs, click to edit/add: Last Vital Signs Temp 98.6 F 04/27/24 07:55 Pulse 87 04/27/24 08:00 Resp 18 04/27/24 07:55 BP 152/74 H 04/27/24 07:55 Pulse Ox 96 04/27/24 07:55 O2 Del Method Room Air 04/27/24 07:55 Progress Note: Objective Labs Labs: Short CBC 04/26/24 04/27/24 Range/Units 10:25 06:10 WBC 12.0 H 8.8 (4.0-11.0) 10^3/uL Hgb 10.0 L 10.2 L (14.0-18.0) g/dL Hct 29.7 L 30.7 L (42.0-54.0) % Plt Count 248 253 (150-450) 10^3/uL BMP 04/27/24 06:10 Sodium 136 Potassium 4.2 Chloride 102 Carbon Dioxide 24.6 BUN 16.0 Creatinine 1.34 H Glucose 162 H Calcium 8.4 L Liver Function 04/27/24 Range/Units 06:10 Total Bilirubin 0.5 (0.2-1.0) mg/dL AST 19 (15-37) U/L ALT 24 (16-63) U/L Alkaline Phosphatase 71 (46-116) U/L Albumin 2.5 L (3.4-5.0) g/dL Progress Note: A&P Assessment and Plan (1) Streptococcal bacteremia: Assessment and Plan: Antibiotic seeds placed in foot intra-op yesterday, Patient remains on Vancomycin IV and Zosyn IV. Awaiting wound cultures along with blood cultures and sensitives. Febrile last night 100.8 but has resolved this morning. Normal lactate 1.1 and leukocytosis has improved to 8.8. Did have some blood loss with surgery yesterday, monitoring H&H was 10.2 this morning (2) Diabetic foot infection: Assessment and Plan: Most likely from strep species, cultures pending, continue Vancomycin and Zosyn (3) Diabetic foot ulcer: Assessment and Plan: see #2 Qualifiers: Diabetes mellitus type: type 2 Diabetic foot ulcer location: midfoot Laterality: right Non-pressure ulcer stage: with necrosis of bone Qualified Code(s): E11.621 - Type 2 diabetes mellitus with foot ulcer; 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 (4) Acute on chronic kidney failure: Assessment and Plan: renally dose medications, Cr 1.34 today, decrease IVF today. 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 Diabetes mellitus type: type 2 Qualified Code(s): E11.621 - Type 2 diabetes mellitus with foot ulcer; L97.509 - Non-pressure chronic ulcer of other part of unspecified foot with unspecified severity; 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
[2024-04-27] MEDS: INSULIN ASPART 300 UNIT/3 ML PEN SUBQ ×4 (08:38→21:21)
[2024-04-27] MEDS: LISINOPRIL 20 MG TABLET 30 MG PO (08:38)
[2024-04-27] MEDS: INSULIN GLARGINE 300 UNIT/3 ML INSULN.PEN 44 UNIT SQ (08:39)
--- NOTE | 2024-04-27 09:58 | CM.NOTE ---
Rounds made with Dr. Root, pt will go back to OR tomorrow for closure of wound. PT to continue to work with pt for strengthening and continue IV antibiotics. Dr. Root discussed with pt culture results.
--- NOTE | 2024-04-27 10:53 | REH.PTDLY ---
Physical Therapy Daily Note PT Daily Note/Assess Start: 04/27/24 10:40 Freq: Status: Active Protocol: Document 04/27/24 10:40 CT (Rec: 04/27/24 10:53 [facility]3]SARAH [id number]) Physical Therapy Daily Note/Assessment Time In 10:13 Time Out 10:38 Pain Level 0 Pain Level 0 Subjective Pt agreeable to PT. Reports he has used a scooter in the past and and is used to being NWB. Pt report he used to just sit and scoot up on bottom when doing the steps and he's fine doing this again. Therapeutic Activity 4 Minutes (minutes) Therapeutic Activity 0 Units Therapeutic Activity ind with supine to sit transfers. CGA with sit to stand Comments transfers with cues for pt to maintain NWB on R LE. Bed is elevated to assist pt in maintaining NWB. Cues for transfers into recliner post gait for safety and assurance of proper hand placement. Gait Training/Stairs 15 Minutes (minutes) Gait Training/Stairs 1 Units Gait Comments Pt uses RW and hops 1x NWB on R and then scoots L foot across floor while getting onto scooter as pt struggles to maintain NWB. Gait training with scooter 130 feet CGA with education on brakes of scooter. Pt initially declines trying the stairs as he says he is fine to perform as he's done it in the past, however pt does agree then to attempt. Verbal education and GOLD MINER BLASTING demo'd to pt how he would hop up the step using Hardeep HRs that he states he has at home. Pt gets situated in front of steps holding onto Hardeep railings and then states there is no way he would be able to hop and maintain NWB. Did not attempt steps as to not break NWB precautions. Pt is now agreeable to go to rehab somewhere as even if he scooted up steps on his bottom at home, he would still have to hop up 1 step to get to the landing once he got there. Total Therapy 19 Minutes Total Physical 1 Therapy Units Daily Note Summary Pt now needs SNF stay upon DC as he is unable to maintain NWB due to weakness and has stairs to enter at home. Did review the possibility of renting a ramp with pt, but pt states it is impossible to get a ramp in the space as he has to go up 3 steps and then there is a landing and then another step. Pt overall would benefit from rehab stay to become stronger with transfers and gait with walker as he easily fatigues.
--- NOTE | 2024-04-27 10:57 | SWNOTE1 ---
SW received a call from physical therapy that pt now needs SNF due to stairs and is agreeable, he was thinking [facility]. SW also received message from nurse that pt will now need SNF. SW stopped in and spoke to pt. He is agreeable to go to rehab and voiced NWB and doing stairs, he was not able to do. He did voice he wants the [facility]. SW advised pt that SW called and they do not take his insurance. Pt does live in [place] and requested SW find out which facilities in [place] take his insurance. SW did let him know that he is also close to weight limit as well and that some facilities may not accept due to this reason. He voiced understanding. SW sent face sheet and insurance card to [facility]. SW waiting to hear back from them.
[2024-04-27 11:02] LABS: Glucometer 228 mg/dL (74-106)
--- NOTE | 2024-04-27 11:47 | P.PN_ITS ---
Progress Note: Subjective Subjective Interval history: Patient is Post op day #1 from I&D of the right foot.. Patient did have a fever last night 100.8, Lactate drawn was 1.1. Blood cultures positive for Strep species. Wound cultures are pending. WBC normalized and hematocrit remains above 10. Patient reports no pain. No complaints. Exam Narrative Exam Narrative: Splint is clean dry and intact. No calf pain on squeeze Constitutional Vital Signs, click to edit/add: Last Vital Signs Temp 98.6 F 04/27/24 07:55 Pulse 98 H 04/27/24 10:00 Resp 18 04/27/24 07:55 BP 152/74 H 04/27/24 07:55 Pulse Ox 96 04/27/24 07:55 O2 Del Method Room Air 04/27/24 07:55 Progress Note: Objective Labs Labs: Short CBC 04/27/24 Range/Units 06:10 WBC 8.8 (4.0-11.0) 10^3/uL Hgb 10.2 L (14.0-18.0) g/dL Hct 30.7 L (42.0-54.0) % Plt Count 253 (150-450) 10^3/uL BMP 04/27/24 06:10 Sodium 136 Potassium 4.2 Chloride 102 Carbon Dioxide 24.6 BUN 16.0 Creatinine 1.34 H Glucose 162 H Calcium 8.4 L Liver Function 04/27/24 Range/Units 06:10 Total Bilirubin 0.5 (0.2-1.0) mg/dL AST 19 (15-37) U/L ALT 24 (16-63) U/L Alkaline Phosphatase 71 (46-116) U/L Albumin 2.5 L (3.4-5.0) g/dL Progress Note: A&P Assessment and Plan (1) Streptococcal bacteremia: (2) Diabetic foot infection: (3) Diabetic foot ulcer: Qualifiers: Diabetic foot ulcer location: midfoot Diabetes mellitus type: type 2 Laterality: right Non-pressure ulcer stage: with necrosis of bone Qualified Code(s): E11.621 - Type 2 diabetes mellitus with foot ulcer; L97.414 - Non- pressure chronic ulcer of right heel and midfoot with necrosis of bone (4) Acute on chronic kidney failure: Qualifiers: Acute renal failure type: unspecified Chronic kidney disease stage: unspecified stage Qualified Code(s): N17.9 - Acute kidney failure, unspecified; N18.9 - Chronic kidney disease, unspecified (5) Diabetes: Qualifiers: Diabetes mellitus type: type 2 Diabetes mellitus [facility] insulin use: with [facility] use Diabetes mellitus complication status: with skin complications Diabetes mellitus complication detail: with foot ulcer Qualified Code(s): E11.621 - Type 2 diabetes mellitus with foot ulcer; L97.509 - Non- pressure chronic ulcer of other part of unspecified foot with unspecified severity; Z79.4 - halfway (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 (6) High cholesterol: (7) Hypertension: Qualifiers: Hypertension type: secondary to endocrine disorders Qualified Code(s): I15.2 - Hypertension secondary to endocrine disorders Plan Patient seen at bedside and I explained that patient has a limb threatening severe diabetic foot infection. Plan for tomorrow's repeat I&D. I did have a long discussion with the patient regarding his healing potential in the prol onged amount of time it will take for his wound to resolve. Given the amount of soft tissue deficit I believe it will take at least 3 months and additional surgeries to fully heal his wound. I did discuss with him that a below-knee amputation would take less time and patient adamantly declined this option. Continue broad-spectrum antibiotics N.p.o. after midnight Will follow
--- NOTE | 2024-04-27 11:59 | SWNOTE1 ---
[facility] is not able to accept due to insurance.
--- NOTE | 2024-04-27 12:13 | SWNOTE1 ---
SW also reached out to [facility] and sent Sheila face sheet and insurance card. She is reviewing as well.
--- NOTE | 2024-04-27 12:27 | SWNOTE1 ---
[facility] is not able to accept due to insurance.
--- NOTE | 2024-04-27 12:35 | SWNOTE1 ---
SW went back and spoke to pt and let him know about [facility] and [facility]. Pt did inquire about [facility]. SW to check. Pt is alright with SW checking all facilities. BRETT sent message to [place] at [facility].
--- NOTE | 2024-04-27 12:38 | SWNOTE1 ---
[facility] is out of network. SW sent clinical information to [facility] and [facility]. Both are in network.
[2024-04-27] MEDS: 0.9 % SODIUM CHLORIDE 250 ML 10 ML IV (14:32)
[2024-04-27 15:53] LABS: Glucometer 244 mg/dL (74-106)
[2024-04-27 21:21] LABS: Glucometer 220 mg/dL (74-106)
[2024-04-27] MEDS: ATORVASTATIN CALCIUM 40 MG TABLET PO (21:21)
[2024-04-27] MEDS: INSULIN GLARGINE 300 UNIT/3 ML INSULN.PEN 22 UNIT SQ (21:23)
[2024-04-27] MEDS: TEMAZEPAM 15 MG CAPSULE 30 MG PO (22:06)
[2024-04-27] MEDS: ACETAMINOPHEN 500 MG TABLET 1000 MG PO (23:59)
[2024-04-28] VITALS (11 sets, daily range): BP systolic 92–157; BP diastolic 54–86; PULSE 75–93; TEMP 36.4–36.9; O2SAT 94–97
[2024-04-28] MEDS: VANCOMYCIN HCL 2,000 MG in 0.9 % SODIUM CHLORIDE 500 ML 250 MG IV ×2 (04:01→17:22)
[2024-04-28 06:05] LABS: Hematocrit 29.1 % (42.0-54.0); Hemoglobin 9.5 g/dL (14.0-18.0); Mean Corpuscular HGB Conc 32.6 g/dL (29.9-35.2); Mean Corpuscular Hemoglobin 31.4 pg (25.9-34.0); Mean Platelet Volume 9.6 fL (9.5-13.5); Platelet Count 254 10^3/uL (150-450); Red Blood Count 3.03 10^6/uL (4.70-6.10); Red Cell Distribution Width 13.4 % (11.0-15.0); White Blood Count 7.5 10^3/uL (4.0-11.0)
[2024-04-28] MEDS: PIPERACILLIN SODIUM/TAZOBACTAM 3.375 GM in 0.9 % SODIUM CHLORIDE 50 ML IV ×3 (06:23→21:44)
[2024-04-28 06:27] LABS: Segmented Neut Absolute Manual 4.87 10^3/uL (1.4-6.5)
[2024-04-28 06:28] LABS: Basophils Abs Manual 0.07 10^3/uL (0.00-0.10)
[2024-04-28 06:29] LABS: Lymphocytes Absolute Manual 1.65 10^3/uL (1.20-3.80)
[2024-04-28 06:30] LABS: Alanine Aminotransferase 32 U/L (16-63); Albumin Globulin Ratio 0.5; Albumin Level 2.3 g/dL (3.4-5.0); Alkaline Phosphatase 72 U/L (46-116); Aspartate Amino Transferase 23 U/L (15-37); BUN Creatinine Ratio 12.7; Bilirubin Total 0.4 mg/dL (0.2-1.0); Calcium 8.4 mg/dL (8.5-10.1); Carbon Dioxide 25.2 mmol/L (21.0-32.0); Chloride 107 mmol/L (98-107); Estimated GFR (African America >60 (>=60 mL/min/1.73m^2); Estimated GFR (Non-African Ame >60 (>=60 mL/min/1.73m^2); Globulin 4.7 g/dL; Glucose 146 mg/dL (74-106); Potassium 4.2 mmol/L (3.5-5.1); Sodium 140 mmol/L (136-145)
--- NOTE | 2024-04-28 06:48 | PC.NURSE ---
moderate amount of drainage to heel of right foot. Abd and julissa wrap applied at this time.
--- NOTE | 2024-04-28 08:13 | PC.NURSE ---
Attempted to straighten up room, with pt belongings strewn in many (chair, couch, table etc. ) Nurse Organized bags somewhat to make room on couch for visitors. Pt states just leave everything where it is! Dirty clothes, shoe, bags all then left as is. Pt also has sharif lying on bedside table, along with wallet. Enc to lock in room drawer, to which pt responds, please just leave all my stuff where it is Instructed that sharif and wallet would be safe in drawer (couple of 20 dollar bills seen in small stack of sharif) Pt states, there's not much money laying here anyway! Pt belongings left in room as pt wishes with understanding that staff cannot be responsible for anything not locked up as instructed. pt verbalizes understanding, and thanks nurse for leaving everything as is.
--- NOTE | 2024-04-28 08:15 | SWNOTE1 ---
[facility] able [facility]. They are not able to start precert until they know if pt will be coming on IV's or oral antibiotics.
--- NOTE | 2024-04-28 08:23 | PM.PN ---
Progress Note: Subjective Subjective Interval history: Patient is Post op day #2 from I&D of the right foot. Plan for take back today, currently NPO. Blood cultures positive for Strep species. Patient reports no pain. No complaints. Exam Narrative Exam Narrative: General: Patient is alert, and oriented to person, place and time with normal affect, poor hygiene, obese Skin: right foot elevated with surgical dressing intact Head: atraumatic, acephalic Eyes: PERRLA, no nystagmus present, conjunctiva clear, no scleral icterus Ears: normal gross auditory acuity Nose: symmetric, no discharge, no maxillary or frontal sinus tenderness Heart: Normal rate and rhythm, no murmurs/rubs/gallops Lungs: no audible wheezes, crackles and normal breath sounds all lung zelaya Abdomen: Normal audible bowel sounds, no distension, No palpable masses, no organomegaly, no rebound/guarding/ or rigidity Neuro: CN II-X grossly intact Constitutional Vital Signs, click to edit/add: Last Vital Signs Temp 97.6 F 04/28/24 08:00 Pulse 80 04/28/24 08:00 Resp 20 04/28/24 08:00 BP 92/54 04/28/24 08:00 Pulse Ox 94 L 04/28/24 08:00 O2 Del Method Room Air 04/28/24 08:00 Progress Note: Objective Labs Labs: Short CBC 04/28/24 Range/Units 05:50 WBC 7.5 (4.0-11.0) 10^3/uL Hgb 9.5 L (14.0-18.0) g/dL Hct 29.1 L (42.0-54.0) % Plt Count 254 (150-450) 10^3/uL BMP 04/28/24 05:50 Sodium 140 Potassium 4.2 Chloride 107 Carbon Dioxide 25.2 BUN 15.0 Creatinine 1.18 Glucose 146 H Calcium 8.4 L Liver Function 04/28/24 Range/Units 05:50 Total Bilirubin 0.4 (0.2-1.0) mg/dL AST 23 (15-37) U/L ALT 32 (16-63) U/L Alkaline Phosphatase 72 (46-116) U/L Albumin 2.3 L (3.4-5.0) g/dL Progress Note: A&P Assessment and Plan (1) Streptococcal bacteremia: Assessment and Plan: Patient remains on Vancomycin IV and Zosyn IV. Awaiting wound cultures along with blood cultures and sensitives. 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 Cr normal 1.18 Qualifiers: Acute renal failure type: unspecified Chronic kidney disease stage: unspecified stage Qualified Code(s): N17.9 - Acute kidney failure, unspecified; N18.9 - Chronic kidney disease, unspecified (5) Diabetes: Assessment and Plan: SSI with accuchecks, continue long acting insulin Qualifiers: Diabetes mellitus complication detail: with foot ulcer Diabetes mellitus complication status: with skin complications Diabetes mellitus intermodal customer service insulin use: with intermodal customer service use Diabetes mellitus type: type 2 Qualified Code(s): E11.621 - Type 2 diabetes mellitus with foot ulcer; L97.509 - Non-pressure chronic ulcer of other part of unspecified foot with unspecified severity; Z79.4 - 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 (6) High cholesterol: Assessment and Plan: continue atorvastatin (7) Hypertension: Assessment and Plan: continue lisinopril Qualifiers: Hypertension type: secondary to endocrine disorders Qualified Code(s): I15.2 - Hypertension secondary to endocrine disorders (8) Morbid obesity with BMI of 50.0-59.9, adult: Assessment and Plan: would benefit from weight loss reduction, consult to controller repairer and tester. Plan patient is a full code SCD's for prophylaxis Surgical I&D today, Will need 2 weeks or greater antibiotic therapy, uncertain whether IV or Oral depending culture results, PICC line decision to be made at that time. Will need rehab for his NWB status.
--- NOTE | 2024-04-28 10:27 | PT.DAILY ---
Physical Therapy Daily Note PT Daily Note/Assess Start: 04/27/24 10:40 Freq: Status: Active Protocol: Document 04/28/24 10:26 [facility] (Rec: 04/28/24 10:27 [facility] [id number]) Visit Not Completed Visit Not Completed Visit Not Completed Nursing request to hold Due to: Other Reason Visit Nursing requesting to hold as pt is due to go down to Not Completed surgery and can be leaving for that at any time. Physical Therapy Daily Note/Assessment Time In/Time Out Time In 10:25 Time Out 10:25 GG. Functional Abilities and Goals-Complete for Swing Bed Patients Only [id number]. Self-Care [id number]. Mobility
--- NOTE | 2024-04-28 10:38 | CM.NOTE ---
Rounds made with Dr. Root, pt will go to OR today. Dr. Root will discuss with [facility] plan of care for pt after OR procedure today.
[2024-04-28 12:19] LABS: Glucometer 160 mg/dL (74-106)
[2024-04-28] MEDS: 0.9 % SODIUM CHLORIDE 250 ML 10 ML IV (13:05)
--- NOTE | 2024-04-28 13:22 | SWNOTE1 ---
SW sent progress note from hospitalist, labs, and med list from today to spring. Hospitalist is reaching out to dial screw assembler to see if he knows if pt will be discharged on oral or IV anbx. Pt is a precert to go to [facility]. [facility] is not able to submit precert to insurance until we know if pt will need IV's. If pt does need IV anbx the insurance needs to know the discharge date of IV's.
--- NOTE | 2024-04-28 13:39 | PM.ORONB ---
Brief Operative Note Date of procedure: 04/28/24 Pre-op diagnosis general: Right diabetic foot infection, abscess, cellulitis, diabetic foot ulceration Post-op diagnosis: same as pre-op Procedure: Procedure performed: Right foot I&D, removal of nonbiodegradable antibiotic cement and application of short leg splint Indications for procedure: Patient presents to the OR for repeat inspection and debridement of severe diabetic foot infection. Since admission his white blood cell count has normalized and he has remained hemodynamically stable. He did spike a fever following his first I&D but since has been afebrile. Blood cultures revealed strep species and wound cultures are still pending. Intraoperative findings: 18 x 9.5 cm ulcer on plantar medial right foot with tunneling to the anterior ankle. No pus. No bone exposure. Procedure in detail: Patient was identified preoperative holding by myself which time correct side and site were marked and consent was obtained. Patient is brought back in the operating theater placed on table in supine position. No additional antibiotics were given as patient is receiving scheduled antibiotics on the floor. IV sedation was administered and the right lower extremity was prepped and draped in usual sterile fashion. Formal timeout was performed. The PMMA antibiotic beads were removed with a rongeur. The ulcer was excisionally debrided using scalpel and forceps as well as curettes excising all questionable and nonviable tissue which included plantar fascia and flexor tendons on plantar foot. No yokasta necrotic tissue was observed. No bone exposure. Ulcer was debrided to 100% healthy granular bed. Large soft tissue deficit remained and measured 19.5 x 12.4 cm. Several retention sutures were placed on the proximal aspect of the wound over the tarsal tunnel as well as the distal portion of the wound on the plantar forefoot/midfoot for hemostasis. Hemostasis was controlled on the field. The ulcer was packed open with Betadine soaked Kerlix, ABDs, followed by a well-padded multilayer modified Pastor posterior splint. Patient tolerated procedure and anesthesia well was transported to the recovery room with vital signs stable. Postoperative plan: Once stable will be transferred to medical surgical unit under the hospitalist care Follow cultures and modify antibiotics as needed Strict nonweightbearing No additional surgery planned during this admission however patient will likely require additional surgical intervention to heal his wound and provide a functional limb Follow-up within 1 week from discharge Implants: none Anesthesia: MAC Surgeon: Peter Highlander Estimated blood loss (mL): 50 Tourniquet time (min): 0 Condition: stable Disposition: PACU
--- NOTE | 2024-04-28 14:02 | SWNOTE1 ---
BRETT did complete the PASRR online, BRETT sent results to Ar[facility] at [facility]. [facility] will also need updated therapy notes from today to start precert. At this point unsure of IV vs oral anbx and therapy notes needed to start precert.
[2024-04-28 14:35] LABS: Glucometer 158 mg/dL (74-106)
[2024-04-28] MEDS: INSULIN ASPART 300 UNIT/3 ML PEN SUBQ ×2 (15:08→21:44)
[2024-04-28 21:43] LABS: Glucometer 236 mg/dL (74-106)
[2024-04-28] MEDS: ATORVASTATIN CALCIUM 40 MG TABLET PO (21:43)
[2024-04-28] MEDS: TEMAZEPAM 15 MG CAPSULE 30 MG PO (21:43)
[2024-04-28] MEDS: HYDROXYZINE PAMOATE 25 MG CAPSULE PO (21:44)
[2024-04-28] MEDS: INSULIN GLARGINE 300 UNIT/3 ML INSULN.PEN 22 UNIT SQ (21:45)
[2024-04-29] VITALS: BP 127/72; PULSE 86; TEMP 37.5; O2SAT 91
[2024-04-29 04:00] VITALS: BP 127/76; PULSE 85; TEMP 36.3; O2SAT 90
[2024-04-29] MEDS: VANCOMYCIN HCL 2,000 MG in 0.9 % SODIUM CHLORIDE 500 ML 250 MG IV ×2 (04:53→17:03)
[2024-04-29 06:17] LABS: Basophils Percent Auto 0.5 % (0.2-2.0); Eosinophils Absolute Auto 0.4 10^3/uL (0.0-0.7); Hematocrit 25.3 % (42.0-54.0); Immature Granulocytes Abs Auto 0.05 10^3/uL (0.00-0.03); Immature Granulocytes Pct Auto 0.7 % (0.0-0.5); Lymphocytes Absolute Auto 1.6 10^3/uL (1.2-3.8); Lymphocytes Percent Auto 20.3 % (20.5-60.0); Mean Corpuscular HGB Conc 31.6 g/dL (29.9-35.2); Mean Corpuscular Hemoglobin 30.2 pg (25.9-34.0); Mean Corpuscular Volume 95.5 fL (80.0-94.0); Mean Platelet Volume 9.4 fL (9.5-13.5); Monocytes Absolute Auto 0.7 10^3/uL (0.3-0.8); Neutrophils Absolute Auto 4.9 10^3/uL (1.4-6.5); Neutrophils Percent Auto 64.5 % (43.0-75.0); Platelet Count 256 10^3/uL (150-450); Red Blood Count 2.65 10^6/uL (4.70-6.10); Red Cell Distribution Width 13.3 % (11.0-15.0); White Blood Count 7.6 10^3/uL (4.0-11.0)
[2024-04-29 06:48] LABS: Alanine Aminotransferase 31 U/L (16-63); Albumin Globulin Ratio 0.5; Alkaline Phosphatase 67 U/L (46-116); Anion Gap 13.6; Aspartate Amino Transferase 21 U/L (15-37); BUN Creatinine Ratio 9.2; Bilirubin Total 0.3 mg/dL (0.2-1.0); Calcium 8.2 mg/dL (8.5-10.1); Carbon Dioxide 25.8 mmol/L (21.0-32.0); Chloride 106 mmol/L (98-107); Estimated GFR (African America >60 (>=60 mL/min/1.73m^2); Estimated GFR (Non-African Ame >60 (>=60 mL/min/1.73m^2); Glucose 187 mg/dL (74-106); Potassium 4.4 mmol/L (3.5-5.1); Sodium 141 mmol/L (136-145)
[2024-04-29 07:01] LABS: Vancomycin Trough 33.1 ug/mL (5.0-20.0)
[2024-04-29] MEDS: PIPERACILLIN SODIUM/TAZOBACTAM 3.375 GM in 0.9 % SODIUM CHLORIDE 50 ML IV ×3 (07:01→20:22)
[2024-04-29 08:07] VITALS: BP 120/70; PULSE 78; TEMP 36.6; O2SAT 95
[2024-04-29] MEDS: INSULIN GLARGINE 300 UNIT/3 ML INSULN.PEN 22 UNIT SQ (08:16)
[2024-04-29] MEDS: INSULIN ASPART 300 UNIT/3 ML PEN SUBQ ×4 (08:17→20:23)
[2024-04-29] MEDS: LISINOPRIL 20 MG TABLET 30 MG PO (08:21)
--- NOTE | 2024-04-29 09:35 | PT.DAILY ---
Physical Therapy Daily Note PT Daily Note/Assess Start: 04/27/24 10:40 Freq: Status: Active Protocol: Document 04/29/24 09:27 [id number] (Rec: 04/29/24 09:35 [id number]) Physical Therapy Daily Note/Assessment Time In/Time Out Time In 08:15 Time Out 08:28 Pain In Pain Level 0 Pain Out Pain Level 0 Subjective Subjective Patient received in bed and agreeable to participate in standing, requests to not use knee scooter or sit in chair. States he will sit in the chair later today. Nursing request to change linens while patient is in standing. Therapeutic Activity Time Therapeutic Activity 13 Minutes (minutes) Therapeutic Activity 1 Units Therapeutic Activity Treatment Bed Mobility Ability Standby Assistance Therapeutic Activity BM: supine to L sitting EOB SBA and use of L bed rail. Comments Good sitting balance at EOB, maintains R foot NWB status. Transfer: sit to stand to 2WW is CGA +1. Patient hops forward 3 hops and then side hopping to L x 4 hops and 2 backward hops with 2WW w/ SBA and maintains R foot NWB status. While patient is standing , nursing changed linens on bed. Patient fatigue after functional mobility. Patient requests to sit EOB to order breakfast. Nursing informed of patient decision and acknowledge information. Total Physical Therapy Time Total Therapy 13 Minutes Total Physical 1 Therapy Units Summary Daily Note Summary Patient demonstrates improved ability to maintain R foot NWB in standing during with functional mobility. Patient would benefit from SNF placement to increase strength and functional mobility, fatigues easily.
--- NOTE | 2024-04-29 10:38 | P.IMPN_ITS ---
Progress Note: A&P Assessment and Plan (1) Streptococcal bacteremia: Assessment and Plan: On Vancomycin/zosyn. Repeat blood cx negative so far. (2) Diabetic foot infection: Assessment and Plan: Diabetic foot ulcer, with associated cellulitis and abscess. S/p repeat debridement and OR examination on 04/28/24. Improving on current abx. F/u wound, blood cx. (3) Diabetic foot ulcer: Assessment and Plan: Diabetic foot ulcer, with associated cellulitis and abscess. s/p I and D and debridement on 04/26 and 04/28. Improving on IV abx. Monitor closely. Qualifiers: Diabetes mellitus type: type 2 Diabetic foot ulcer location: midfoot Laterality: right Non-pressure ulcer stage: with necrosis of bone Qualified Code(s): E11.621 - Type 2 diabetes mellitus with foot ulcer; L97.414 - Non- pressure chronic ulcer of right heel and midfoot with necrosis of bone (4) NENEA (acute kidney injury): Assessment and Plan: Renal function back to its baseline. Monitor closely while on IV anx. (5) Diabetes: Assessment and Plan: Increase glargine to 30 units q12. C/w SSI Qualifiers: Diabetes mellitus complication detail: with foot ulcer Diabetes mellitus complication status: with skin complications Diabetes mellitus terminal supervisor insulin use: with 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 use Diabetes mellitus type: type 2 Qualified Code(s): E11.621 - Type 2 diabetes mellitus with foot ulcer; L97.509 - Non- pressure chronic ulcer of other part of unspecified foot with unspecified severity; Z79.4 - [facility] (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 (6) High cholesterol: Assessment and Plan: c/w Lipitor. (7) Hypertension: Assessment and Plan: C/w Lisinopril. BP at goal. Qualifiers: Hypertension type: secondary to endocrine disorders Qualified Code(s): I15.2 - Hypertension secondary to endocrine disorders (8) Morbid obesity with BMI of 50.0-59.9, adult: Assessment and Plan: Patient will benefit from lifestyle modifications, weight loss. (9) Anemia: Assessment and Plan: Normocytic anemia, gradual decline during hospital stay. Hb 8 today. Order iron profile, b12 and folate. Monitor Hb . Qualifiers: Anemia type: unspecified type Qualified Code(s): D64.9 - Anemia, unspecified Plan F/u final cultures and sensitivities. C/w PT/OT. NWB on right LE, lives by himself. Will need rehab placement once medically stable for discharge. Internal Medicine - PN: Subj Subjective Interval history: Seen and examined. Doing well. No overnight events. Denies pain. Exam Constitutional Vital Signs, click to edit/add: Last Vital Signs Temp 97.8 F 04/29/24 08:07 Pulse 78 04/29/24 08:07 Resp 18 04/29/24 08:07 BP 120/70 04/29/24 08:07 Pulse Ox 95 04/29/24 08:07 O2 Del Method Room Air 04/29/24 08:07 O2 Flow Rate 2 04/29/24 04:00 Documenting provider has reviewed patient's vital signs: yes Common normals: no apparent distress and oriented x3 General appearance: cooperative Respiratory Common normals: normal respiratory effort and clear to auscultation bilaterally Effort & inspection: able to speak in complete sentences Auscultation: clear to auscultation bilaterally Cardio Common normals: regular rate, S1 normal heart sound and S2 normal heart sound Rate: regular rate Heart sounds: S1 normal and S2 normal Extremity Other: Right Foot in post op dressing. Neuro Common normals: oriented x3, moves all extremities and no focal motor deficits Psych Common normals: mental status grossly normal, denies hallucinations, denies homicidal ideation and denies suicidal ideation Internal Medicine - PN: Obj Da Labs Labs: Laboratory Results - last 24 hr 04/28/24 04/28/24 04/28/24 12:18 14:33 21:40 WBC RBC Hgb Hct MCV MCH MCHC RDW Plt Count MPV Neut % (Auto) Lymph % (Auto) [place] % (Auto) Eos % (Auto) Baso % (Auto) Neut # (Auto) Lymph # (Auto) [place] # (Auto) Eos # (Auto) Baso # (Auto) Abs Immat Gran (auto) Imm/Tot Granulo (auto) Sodium Potassium Chloride Carbon Dioxide Anion Gap BUN Creatinine Est GFR ( Amer) Est GFR (Non-Af Amer) BUN/Creatinine Ratio Glucose Calcium Total Bilirubin AST ALT Alkaline Phosphatase Total Protein Albumin Globulin Albumin/Globulin Ratio Vancomycin Trough POC Glucose 160 H 158 H 236 H 04/29/24 05:56 WBC 7.6 RBC 2.65 L Hgb 8.0 L Hct 25.3 L MCV 95.5 H MCH 30.2 MCHC 31.6 RDW 13.3 Plt Count 256 MPV 9.4 L Neut % (Auto) 64.5 Lymph % (Auto) 20.3 L [place] % (Auto) 9.0 Eos % (Auto) 5.0 Baso % (Auto) 0.5 Neut # (Auto) 4.9 Lymph # (Auto) 1.6 [place] # (Auto) 0.7 Eos # (Auto) 0.4 Baso # (Auto) 0.0 Abs Immat Gran (auto) 0.05 H Imm/Tot Granulo (auto) 0.7 H Sodium 141 Potassium 4.4 Chloride 106 Carbon Dioxide 25.8 Anion Gap 13.6 BUN 10.0 Creatinine 1.09 Est GFR ( Amer) >60 Est GFR (Non-Af Amer) >60 BUN/Creatinine Ratio 9.2 Glucose 187 H Calcium 8.2 L Total Bilirubin 0.3 AST 21 ALT 31 Alkaline Phosphatase 67 Total Protein 6.0 L Albumin 2.0 L Globulin 4.0 Albumin/Globulin Ratio 0.5 Vancomycin Trough 33.1 H* POC Glucose
[2024-04-29 11:19] VITALS: BP 120/67; PULSE 79; TEMP 36.5; O2SAT 94
[2024-04-29 11:22] LABS: Glucometer 187 mg/dL (74-106)
[2024-04-29 15:51] VITALS: BP 137/70; PULSE 84; TEMP 36.6; O2SAT 94
[2024-04-29 16:34] LABS: Vancomycin Trough 13.6 ug/mL (5.0-20.0)
[2024-04-29 16:34] LABS: Glucometer 248 mg/dL (74-106)
[2024-04-29] MEDS: 0.9 % SODIUM CHLORIDE 250 ML 10 ML IV (17:02)
[2024-04-29 19:29] LABS: Glucometer 250 mg/dL (74-106)
[2024-04-29 20:00] VITALS: BP 124/60; PULSE 82; TEMP 36.4; O2SAT 95
[2024-04-29] MEDS: HYDROXYZINE PAMOATE 25 MG CAPSULE PO (20:22)
[2024-04-29] MEDS: ATORVASTATIN CALCIUM 40 MG TABLET PO (20:22)
[2024-04-29] MEDS: TEMAZEPAM 15 MG CAPSULE 30 MG PO (20:22)
[2024-04-29] MEDS: INSULIN GLARGINE 300 UNIT/3 ML INSULN.PEN 30 UNIT SQ (20:23)
[2024-04-30] MEDS: PIPERACILLIN SODIUM/TAZOBACTAM 3.375 GM in 0.9 % SODIUM CHLORIDE 50 ML IV ×3 (04:20→22:41)
[2024-04-30 04:48] VITALS: BP 113/61; PULSE 79; TEMP 37; O2SAT 98
[2024-04-30 05:09] VITALS: BP 113/61; PULSE 79; TEMP 37; O2SAT 98
[2024-04-30 06:33] LABS: Basophils Absolute Auto 0.1 10^3/uL (0.0-0.1); Basophils Percent Auto 0.7 % (0.2-2.0); Eosinophils Absolute Auto 0.4 10^3/uL (0.0-0.7); Eosinophils Percent Auto 4.5 % (0.9-7.0); Hematocrit 26.1 % (42.0-54.0); Hemoglobin 8.4 g/dL (14.0-18.0); Immature Granulocytes Abs Auto 0.12 10^3/uL (0.00-0.03); Immature Granulocytes Pct Auto 1.3 % (0.0-0.5); Lymphocytes Absolute Auto 1.4 10^3/uL (1.2-3.8); Mean Corpuscular HGB Conc 32.2 g/dL (29.9-35.2); Mean Corpuscular Hemoglobin 30.9 pg (25.9-34.0); Mean Platelet Volume 9.4 fL (9.5-13.5); Monocytes Absolute Auto 0.6 10^3/uL (0.3-0.8); Monocytes Percent Auto 7.1 % (1.7-12.0); Neutrophils Absolute Auto 6.4 10^3/uL (1.4-6.5); Neutrophils Percent Auto 71.4 % (43.0-75.0); Platelet Count 317 10^3/uL (150-450); Red Blood Count 2.72 10^6/uL (4.70-6.10); Red Cell Distribution Width 13.5 % (11.0-15.0)
[2024-04-30 06:51] LABS: Alanine Aminotransferase 39 U/L (16-63); Albumin Globulin Ratio 0.5; Albumin Level 2.2 g/dL (3.4-5.0); Alkaline Phosphatase 76 U/L (46-116); Anion Gap 15.1; Aspartate Amino Transferase 26 U/L (15-37); BUN Creatinine Ratio 6.7; Bilirubin Total 0.3 mg/dL (0.2-1.0); Calcium 8.6 mg/dL (8.5-10.1); Carbon Dioxide 25.2 mmol/L (21.0-32.0); Chloride 105 mmol/L (98-107); Estimated GFR (African America >60 (>=60 mL/min/1.73m^2); Estimated GFR (Non-African Ame >60 (>=60 mL/min/1.73m^2); Globulin 4.5 g/dL; Glucose 201 mg/dL (74-106); Potassium 4.3 mmol/L (3.5-5.1); Sodium 141 mmol/L (136-145); Total Protein 6.7 g/dL (6.4-8.2)
[2024-04-30 06:52] LABS: Percent Iron Saturation 17.4 %
[2024-04-30 07:19] VITALS: BP 110/60; PULSE 74; TEMP 36.9; O2SAT 94
[2024-04-30] MEDS: INSULIN GLARGINE 300 UNIT/3 ML INSULN.PEN 30 UNIT SQ ×2 (08:37→21:57)
[2024-04-30] MEDS: VANCOMYCIN HCL 2,000 MG in 0.9 % SODIUM CHLORIDE 500 ML 250 MG IV ×2 (08:38→20:29)
[2024-04-30] MEDS: INSULIN ASPART 300 UNIT/3 ML PEN SUBQ ×4 (08:38→21:58)
[2024-04-30] MEDS: LISINOPRIL 20 MG TABLET 30 MG PO (08:39)
[2024-04-30 11:05] VITALS: BP 117/75; PULSE 80; TEMP 36.7; O2SAT 96
[2024-04-30 11:20] LABS: Glucometer 204 mg/dL (74-106)
--- NOTE | 2024-04-30 11:26 | PM.IMPN1 ---
Progress Note: A&P Assessment and Plan (1) Streptococcal bacteremia: Assessment and Plan: On Vancomycin/Zosyn. Awaiting sensitivity. Repeat blood cx negative so far. (2) Diabetic foot infection: Assessment and Plan: Diabetic foot ulcer, with associated cellulitis and abscess. Improving on current abx. Wound cultures are pending. (3) Diabetic foot ulcer: Assessment and Plan: Diabetic foot ulcer, with associated cellulitis and abscess. s/p I and D and debridement on 04/26 and 04/28. 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 Monitor closely while on IV abx. (5) Diabetes: Assessment and Plan: FSBS improved after glargine increased to 30 units q12. C/w SSI Qualifiers: Diabetes mellitus type: type 2 Diabetes mellitus online advertising director insulin use: with assisted use Diabetes mellitus complication status: with skin complications Diabetes mellitus complication detail: with foot ulcer Qualified Code(s): E11.621 - Type 2 diabetes mellitus with foot ulcer; L97.509 - Non-pressure chronic ulcer of other part of unspecified foot with unspecified severity; Z79.4 - [employer] (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 (6) High cholesterol: Assessment and Plan: c/w Lipitor. (7) Hypertension: Assessment and Plan: C/w Lisinopril. BP at goal. Qualifiers: Hypertension type: secondary to endocrine disorders Qualified Code(s): I15.2 - Hypertension secondary to endocrine disorders (8) Morbid obesity with BMI of 50.0-59.9, adult: Assessment and Plan: Patient will benefit from lifestyle modifications, weight loss. He can be a good candidate for bariatric surgery or GLP1 agonist. Defer to PCP (9) Anemia: Assessment and Plan: Normocytic anemia, gradual decline during hospital stay. No active bleeding. Likely combination of intra operative blood loss plus anemia of chronic disease. Qualifiers: Anemia type: unspecified type Qualified Code(s): D64.9 - Anemia, unspecified Plan F/u final cultures and sensitivities. C/w PT/OT. NWB on right LE, lives by himself. Will need rehab placement once medically stable for discharge. Internal Medicine - PN: Subj Subjective Interval history: Seen and examined. No overnight events. No active complaints to offer. Exam Constitutional Vital Signs, click to edit/add: Last Vital Signs Temp 98.0 F 04/30/24 11:05 Pulse 80 04/30/24 11:05 Resp 16 04/30/24 11:05 BP 117/75 04/30/24 11:05 Pulse Ox 96 04/30/24 11:05 O2 Del Method Room Air 04/30/24 11:05 O2 Flow Rate 2 04/29/24 04:00 Documenting provider has reviewed patient's vital signs: yes Common normals: no apparent distress and oriented x3 General appearance: cooperative Respiratory Common normals: normal respiratory effort and clear to auscultation bilaterally Effort & inspection: able to speak in complete sentences Auscultation: clear to auscultation bilaterally Cardio Common normals: regular rate, S1 normal heart sound and S2 normal heart sound Rate: regular rate Heart sounds: S1 normal and S2 normal Extremity Other: Right Foot in post op dressing. Internal Medicine - PN: Obj Da Labs Labs: Laboratory Results - last 24 hr 04/29/24 04/29/24 04/29/24 16:00 16:34 19:24 WBC RBC Hgb Hct MCV MCH MCHC RDW Plt Count MPV Neut % (Auto) Lymph % (Auto) [place] % (Auto) Eos % (Auto) Baso % (Auto) Neut # (Auto) Lymph # (Auto) [place] # (Auto) Eos # (Auto) Baso # (Auto) Abs Immat Gran (auto) Imm/Tot Granulo (auto) Sodium Potassium Chloride Carbon Dioxide Anion Gap BUN Creatinine Est GFR ( Amer) Est GFR (Non-Af Amer) BUN/Creatinine Ratio Glucose Calcium Iron TIBC % Saturation Ferritin Total Bilirubin AST ALT Alkaline Phosphatase Total Protein Albumin Globulin Albumin/Globulin Ratio Folate Vancomycin Trough 13.6 POC Glucose 248 H 250 H 04/30/24 04/30/24 05:44 11:09 WBC 9.0 RBC 2.72 L Hgb 8.4 L Hct 26.1 L MCV 96.0 H MCH 30.9 MCHC 32.2 RDW 13.5 Plt Count 317 MPV 9.4 L Neut % (Auto) 71.4 Lymph % (Auto) 15.0 L [place] % (Auto) 7.1 Eos % (Auto) 4.5 Baso % (Auto) 0.7 Neut # (Auto) 6.4 Lymph # (Auto) 1.4 [place] # (Auto) 0.6 Eos # (Auto) 0.4 Baso # (Auto) 0.1 Abs Immat Gran (auto) 0.12 H Imm/Tot Granulo (auto) 1.3 H Sodium 141 Potassium 4.3 Chloride 105 Carbon Dioxide 25.2 Anion Gap 15.1 BUN 7.0 Creatinine 1.05 Est GFR ( Amer) >60 Est GFR (Non-Af Amer) >60 BUN/Creatinine Ratio 6.7 Glucose 201 H Calcium 8.6 Iron 38.0 L TIBC 218.0 L % Saturation 17.4 Ferritin 304.0 Total Bilirubin 0.3 AST 26 ALT 39 Alkaline Phosphatase 76 Total Protein 6.7 Albumin 2.2 L Globulin 4.5 Albumin/Globulin Ratio 0.5 Folate 10.40 Vancomycin Trough POC Glucose 204 H
[2024-04-30 15:56] VITALS: BP 132/79; PULSE 88; TEMP 36.7; O2SAT 94
[2024-04-30 16:02] LABS: Glucometer 219 mg/dL (74-106)
[2024-04-30] MEDS: 0.9 % SODIUM CHLORIDE 250 ML 10 ML IV (20:30)
[2024-04-30 21:27] LABS: Glucometer 244 mg/dL (74-106)
[2024-04-30] MEDS: ATORVASTATIN CALCIUM 40 MG TABLET PO (21:57)
[2024-04-30 22:00] VITALS: BP 102/66; PULSE 79; TEMP 36.8; O2SAT 91
[2024-04-30] MEDS: TEMAZEPAM 15 MG CAPSULE 30 MG PO (22:00)
[2024-05-01 04:58] VITALS: BP 123/73; PULSE 74; TEMP 36.8; O2SAT 96
[2024-05-01] MEDS: PIPERACILLIN SODIUM/TAZOBACTAM 3.375 GM in 0.9 % SODIUM CHLORIDE 50 ML IV (05:09)
[2024-05-01 05:51] LABS: Basophils Absolute Auto 0.1 10^3/uL (0.0-0.1); Basophils Percent Auto 0.6 % (0.2-2.0); Eosinophils Absolute Auto 0.3 10^3/uL (0.0-0.7); Eosinophils Percent Auto 3.2 % (0.9-7.0); Hematocrit 27.7 % (42.0-54.0); Hemoglobin 8.7 g/dL (14.0-18.0); Immature Granulocytes Pct Auto 2.2 % (0.0-0.5); Lymphocytes Absolute Auto 1.4 10^3/uL (1.2-3.8); Lymphocytes Percent Auto 14.9 % (20.5-60.0); Mean Corpuscular HGB Conc 31.4 g/dL (29.9-35.2); Mean Corpuscular Hemoglobin 30.3 pg (25.9-34.0); Mean Corpuscular Volume 96.5 fL (80.0-94.0); Mean Platelet Volume 9.4 fL (9.5-13.5); Monocytes Absolute Auto 0.7 10^3/uL (0.3-0.8); Monocytes Percent Auto 7.5 % (1.7-12.0); Neutrophils Absolute Auto 6.6 10^3/uL (1.4-6.5); Neutrophils Percent Auto 71.6 % (43.0-75.0); Platelet Count 331 10^3/uL (150-450); Red Blood Count 2.87 10^6/uL (4.70-6.10); Red Cell Distribution Width 13.5 % (11.0-15.0); White Blood Count 9.3 10^3/uL (4.0-11.0)
[2024-05-01 06:13] LABS: Alanine Aminotransferase 45 U/L (16-63); Albumin Globulin Ratio 0.5; Albumin Level 2.2 g/dL (3.4-5.0); Alkaline Phosphatase 82 U/L (46-116); Anion Gap 14.2; Aspartate Amino Transferase 31 U/L (15-37); BUN Creatinine Ratio 7.5; Bilirubin Total 0.3 mg/dL (0.2-1.0); Calcium 8.6 mg/dL (8.5-10.1); Chloride 105 mmol/L (98-107); Estimated GFR (African America >60 (>=60 mL/min/1.73m^2); Estimated GFR (Non-African Ame >60 (>=60 mL/min/1.73m^2); Globulin 4.5 g/dL; Glucose 183 mg/dL (74-106); Potassium 4.2 mmol/L (3.5-5.1); Sodium 141 mmol/L (136-145); Total Protein 6.7 g/dL (6.4-8.2)
[2024-05-01 08:30] LABS: Glucometer 169 mg/dL (74-106)
[2024-05-01] MEDS: LISINOPRIL 20 MG TABLET 30 MG PO (08:33)
[2024-05-01] MEDS: INSULIN GLARGINE 300 UNIT/3 ML INSULN.PEN 30 UNIT SQ ×2 (08:33→21:30)
[2024-05-01] MEDS: INSULIN ASPART 300 UNIT/3 ML PEN SUBQ ×4 (08:33→21:30)
[2024-05-01 08:41] VITALS: BP 121/69; PULSE 78; TEMP 36.7; O2SAT 94
--- NOTE | 2024-05-01 10:04 | PT.DAILY ---
Physical Therapy Daily Note PT Daily Note/Assess Start: 04/27/24 10:40 Freq: Status: Active Protocol: Document 05/01/24 09:50 ESTEE (Rec: 05/01/24 10:03 ESTEE [id number]) Physical Therapy Daily Note/Assessment Time In/Time Out Time In 09:05 Time Out 09:20 Pain In Pain N/A Pain Out Pain N/A Subjective Subjective Pt sidelying upon arrival. Agrees to PT. Denies pain. Weekend went well, up in chair a few times. Has yet to use knee scooter since last with PT. Therapeutic Exercise Time Therapeutic Exercise 3 Minutes (minutes) Therapeutic Exercise 0 Units Therapeutic Exercise Treatment Therapeutic Exercise Seated bilat LE strengthening ex complete while sitting Treatment EOB unsupported 10x ea - to improve functional mobility prior to gait/transfers. Therapeutic Activity Time Therapeutic Activity 8 Minutes (minutes) Therapeutic Activity 1 Units Therapeutic Activity Treatment Bed Mobility Ability Standby Assistance Chair Transfer Standby Assistance Ability Therapeutic Activity Supine>sit SBA with assist for IV pole/lines. Sits EOB Comments unsupported to complete bilat seated ex - no LOB. Sit> stand to RW SBA while maintaining NWB R LE. Pt takes 2 hops with RW to knee scooter. Pt amb with knee scooter 100' with SBA and assist for IV pole/lines. Pt returned to BS chair upon completion - stand pivot from knee scooter. Pt does flop into chair with this transfer - edu to avoid this next attempt. Pt remains in BS chair upon completion. Nursing notified pt is in chair. Total Physical Therapy Time Total Therapy 11 Minutes Total Physical 1 Therapy Units Summary Daily Note Summary Improved gait endurance using NWB knee scooter. Pt cont to decline stair training - apprehensive he wont be able to maintain NWB status. Would recommend SNF to regain strength to return to PLOF.
--- NOTE | 2024-05-01 10:20 | SWNOTE1 ---
Pt will be going on oral antibiotics. SW sent updated physician notes, PT/OT from today, labs, vitals, and med list to [facility] so Precert can be started.
[2024-05-01] MEDS: VANCOMYCIN HCL 2,000 MG in 0.9 % SODIUM CHLORIDE 500 ML 250 MG IV (10:24)
--- NOTE | 2024-05-01 10:34 | P.PN_ITS ---
Progress Note: Subjective Subjective Interval history: Patient seen at bedside. Feeling well and has no complaints. Awaiting discharge to [facility] facility. He has many questions regarding ongoing plan to enhance wound healing and prevent major amputation. Exam Narrative Exam Narrative: Splint is clean dry and intact and in a neutral position. No calf pain on squeeze Constitutional Vital Signs, click to edit/add: Last Vital Signs Temp 98.1 F 05/01/24 08:41 Pulse 78 05/01/24 08:41 Resp 16 05/01/24 08:41 BP 121/69 05/01/24 08:41 Pulse Ox 94 L 05/01/24 08:41 O2 Del Method Room Air 05/01/24 08:41 O2 Flow Rate 2 04/29/24 04:00 Progress Note: Objective Labs Labs: Short CBC 05/01/24 Range/Units 05:24 WBC 9.3 (4.0-11.0) 10^3/uL Hgb 8.7 L (14.0-18.0) g/dL Hct 27.7 L (42.0-54.0) % Plt Count 331 (150-450) 10^3/uL BMP 05/01/24 05:24 Sodium 141 Potassium 4.2 Chloride 105 Carbon Dioxide 26.0 BUN 8.0 Creatinine 1.07 Glucose 183 H Calcium 8.6 Liver Function 05/01/24 Range/Units 05:24 Total Bilirubin 0.3 (0.2-1.0) mg/dL AST 31 (15-37) U/L ALT 45 (16-63) U/L Alkaline Phosphatase 82 (46-116) U/L Albumin 2.2 L (3.4-5.0) g/dL Progress Note: A&P Assessment and Plan (1) Streptococcal bacteremia: (2) Diabetic foot infection: (3) Diabetic foot ulcer: Qualifiers: Diabetic foot ulcer location: midfoot Diabetes mellitus type: type 2 Laterality: right Non-pressure ulcer stage: with necrosis of bone Qualified Code(s): E11.621 - Type 2 diabetes mellitus with foot ulcer; L97.414 - Non- pressure chronic ulcer of right heel and midfoot with necrosis of bone (4) NEENA (acute kidney injury): (5) Diabetes: Qualifiers: Diabetes mellitus type: type 2 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 insulin use: with group home use Diabetes mellitus complication status: with skin complications Diabetes mellitus complication detail: with foot ulcer Qualified Code(s): E11.621 - Type 2 diabetes mellitus with foot ulcer; L97.509 - Non- pressure chronic ulcer of other part of unspecified foot with unspecified severity; Z79.4 - prison (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 Fareed Adams for d/c to SNF once arrangements made - f/u with me on Wednesday Answered many of patient's questions regarding plan of care and possibility of using wound VAC, allogenic skin substitutes and additional surgery to aide in tissue healing I related that it will likely take minimum of 3 months to achieve full healing however patient remains at very high risk for limb and life threatening infection and need for major amputation
--- NOTE | 2024-05-01 11:05 | P.IMPN_ITS ---
Progress Note: A&P Assessment and Plan (1) Streptococcal bacteremia: Assessment and Plan: Currently on broad spectrum abx - Vancomycin/Zosyn. D/c both. Switch to IV Levaquin Streptococcus sensitive to Levaquin. Repeat blood cx negative. (2) Diabetic foot infection: Assessment and Plan: Diabetic foot ulcer, with associated cellulitis and abscess. Improving on current abx. Wound cultures positive for Pseudomonas. no bone involvement. Switched to Levaquin. (3) Diabetic foot ulcer: Assessment and Plan: Diabetic foot ulcer, with associated cellulitis and abscess. s/p I and D and debridement on 04/26 and 04/28. Qualifiers: Diabetic foot ulcer location: midfoot Diabetes mellitus type: type 2 Laterality: right Non-pressure ulcer stage: with necrosis of bone Qualified Code(s): E11.621 - Type 2 diabetes mellitus with foot ulcer; L97.414 - Non- pressure chronic ulcer of right heel and midfoot with necrosis of bone (4) NEENA (acute kidney injury): Assessment and Plan: Renal function back to its baseline. Monitor closely while on IV abx. (5) Diabetes: Assessment and Plan: FSBS improved after glargine increased to 30 units q12. C/w SSI Qualifiers: Diabetes mellitus type: type 2 Diabetes mellitus analytics associate insulin use: with [facility] use Diabetes mellitus complication status: with skin complications Diabetes mellitus complication detail: with foot ulcer Qualified Code(s): E11.621 - Type 2 diabetes mellitus with foot ulcer; L97.509 - Non- pressure chronic ulcer of other part of unspecified foot with unspecified severity; Z79.4 - [facility] (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 (6) High cholesterol: Assessment and Plan: c/w Lipitor. (7) Hypertension: Assessment and Plan: C/w Lisinopril. BP at goal. Qualifiers: Hypertension type: secondary to endocrine disorders Qualified Code(s): I15.2 - Hypertension secondary to endocrine disorders (8) Morbid obesity with BMI of 50.0-59.9, adult: Assessment and Plan: Patient will benefit from lifestyle modifications, weight loss. He can be a good candidate for bariatric surgery or GLP1 agonist. Defer to PCP (9) Anemia: Assessment and Plan: Normocytic anemia, gradual decline during hospital stay. No active bleeding. Likely combination of intra operative blood loss plus anemia of chronic disease. Qualifiers: Anemia type: unspecified type Qualified Code(s): D64.9 - Anemia, unspecified Plan NWB on right LE, lives by himself. Will need rehab placement once medically stable for discharge. Awaiting precert. Internal Medicine - PN: Subj Subjective Interval history: Seen and examined. Doing well. Has no complaints to offer. Exam Constitutional Vital Signs, click to edit/add: Last Vital Signs Temp 98.1 F 05/01/24 08:41 Pulse 78 05/01/24 08:41 Resp 16 05/01/24 08:41 BP 121/69 05/01/24 08:41 Pulse Ox 94 L 05/01/24 08:41 O2 Del Method Room Air 05/01/24 08:41 O2 Flow Rate 2 04/29/24 04:00 Documenting provider has reviewed patient's vital signs: yes Common normals: no apparent distress and oriented x3 General appearance: cooperative Respiratory Common normals: normal respiratory effort and clear to auscultation bilaterally Effort & inspection: able to speak in complete sentences Auscultation: clear to auscultation bilaterally Cardio Common normals: regular rate, S1 normal heart sound and S2 normal heart sound Rate: regular rate Heart sounds: S1 normal and S2 normal Extremity Other: Right Foot in post op dressing. Internal Medicine - PN: Obj Da Labs Labs: Laboratory Results - last 24 hr 04/30/24 04/30/24 04/30/24 11:09 16:00 21:18 WBC RBC Hgb Hct MCV MCH MCHC RDW Plt Count MPV Neut % (Auto) Lymph % (Auto) [place] % (Auto) Eos % (Auto) Baso % (Auto) Neut # (Auto) Lymph # (Auto) [place] # (Auto) Eos # (Auto) Baso # (Auto) Abs Immat Gran (auto) Imm/Tot Granulo (auto) Sodium Potassium Chloride Carbon Dioxide Anion Gap BUN Creatinine Est GFR ( Amer) Est GFR (Non-Af Amer) BUN/Creatinine Ratio Glucose Calcium Total Bilirubin AST ALT Alkaline Phosphatase Total Protein Albumin Globulin Albumin/Globulin Ratio POC Glucose 204 H 219 H 244 H 05/01/24 05/01/24 05:24 08:27 WBC 9.3 RBC 2.87 L Hgb 8.7 L Hct 27.7 L MCV 96.5 H MCH 30.3 MCHC 31.4 RDW 13.5 Plt Count 331 MPV 9.4 L Neut % (Auto) 71.6 Lymph % (Auto) 14.9 L [place] % (Auto) 7.5 Eos % (Auto) 3.2 Baso % (Auto) 0.6 Neut # (Auto) 6.6 H Lymph # (Auto) 1.4 [place] # (Auto) 0.7 Eos # (Auto) 0.3 Baso # (Auto) 0.1 Abs Immat Gran (auto) 0.20 H Imm/Tot Granulo (auto) 2.2 H Sodium 141 Potassium 4.2 Chloride 105 Carbon Dioxide 26.0 Anion Gap 14.2 BUN 8.0 Creatinine 1.07 Est GFR ( Amer) >60 Est GFR (Non-Af Amer) >60 BUN/Creatinine Ratio 7.5 Glucose 183 H Calcium 8.6 Total Bilirubin 0.3 AST 31 ALT 45 Alkaline Phosphatase 82 Total Protein 6.7 Albumin 2.2 L Globulin 4.5 Albumin/Globulin Ratio 0.5 POC Glucose 169 H
--- NOTE | 2024-05-01 11:27 | SWNOTE1 ---
SW received confirmation from [facility] that precert has been started.
--- NOTE | 2024-05-01 11:38 | CM.NOTE ---
Rounds made with Dr. Guerrier, pt up in room working with PT. Pt will discharge on P.O medications when medically stable and will go to [facility] for skilled.
[2024-05-01 11:44] LABS: Glucometer 178 mg/dL (74-106)
[2024-05-01] MEDS: LEVOFLOXACIN IN DEXTROSE 5 % 750 MG/150 ML PREMIX 100 MG IV (11:45)
[2024-05-01 14:07] LABS: Vitamin B12 1351 pg/mL (232-1245)
[2024-05-01 16:08] LABS: Transferrin 167 mg/dL (177-329)
[2024-05-01 16:14] LABS: Glucometer 194 mg/dL (74-106)
[2024-05-01 16:16] VITALS: BP 107/71; PULSE 84; TEMP 36.9; O2SAT 94
[2024-05-01 19:55] VITALS: BP 100/62; PULSE 90; TEMP 36.6; O2SAT 92
--- NOTE | 2024-05-01 20:01 | NUTR.NU ---
Diet consult completed. Trev watches carbohydrate intakes at home to control BG levels; also encouraged him to eat enough PRO to aid healing. Provided Planning Healthy Meals handout with meal pattern and optimal CHO and PRO per meal. Will continue to follow PRN.
[2024-05-01 21:18] LABS: Glucometer 186 mg/dL (74-106)
[2024-05-01] MEDS: ATORVASTATIN CALCIUM 40 MG TABLET PO (21:30)
[2024-05-01] MEDS: TEMAZEPAM 15 MG CAPSULE 30 MG PO (21:34)
[2024-05-02 05:09] VITALS: BP 127/75; PULSE 77; TEMP 36.9; O2SAT 94
[2024-05-02 07:52] LABS: Glucometer 187 mg/dL (74-106)
[2024-05-02] MEDS: INSULIN GLARGINE 300 UNIT/3 ML INSULN.PEN 30 UNIT SQ (08:05)
[2024-05-02] MEDS: LISINOPRIL 20 MG TABLET 30 MG PO (08:05)
[2024-05-02] MEDS: INSULIN ASPART 300 UNIT/3 ML PEN SUBQ ×3 (08:05→16:45)
[2024-05-02 08:11] VITALS: BP 115/68; PULSE 85; TEMP 36.8; O2SAT 90
--- NOTE | 2024-05-02 09:47 | CM.NOTE ---
Rounds made with Dr. Guerrier pt will discharge to [facility] when medically stable.
--- NOTE | 2024-05-02 10:01 | REH.PTDLY ---
Physical Therapy Daily Note PT Daily Note/Assess Start: 04/27/24 10:40 Freq: Status: Active Protocol: Document 05/02/24 09:31 NIRALICOREY (Rec: 05/02/24 10:01 [id number] Physical Therapy Daily Note/Assessment Time In 09:10 Time Out 09:31 Subjective Nursing reports pt has been up on scooter to bathroom this morning. Pt has no complaints of pain or discomfort. Reports feeling good about using scooter. Still the stairs is the issue. Therapeutic Activity 6 Minutes (minutes) Therapeutic Activity 0 Units Therapeutic Activity Ind with transfers on and off scooter. Pt has bed Comments elevate to perform sit to stand transfers NWB on R LE. Gait Training/Stairs 14 Minutes (minutes) Gait Training/Stairs 1 Units Gait Comments Gait training with RW instructing pt to maintain NWB on R LE and hop forward. Pt able to perform 3 hops forward and backwards 2x. instructed pt in just hoping straight up and down pushing weight thru UEs as if he were to go up a step. Pt hops up and down 3x, only clears about 3 inches from ground on L foot when hopping up. Gait training with knee scooter 135 feet SBA with NWB on R foot. In parallel bars today, placed 6 inch step in front of pt and instructed pt to use UE strength to push himself up on bars to get onto step. With CGA x2 pt is able to hop onto step and back off 2x . Total Therapy 20 Minutes Total Physical 1 Therapy Units Daily Note Summary Progressed pt in parallel bars today hoping up and down 6 inch step 2x with pt being able to do so CGAx2. Pt relies heavily on UEs to push himself up to maintain NWB on R LE. Pt states handrails at home are further apart and does not feel as though he would have the leverage he does in the parallel bars to hop up and maintain NWB.
--- NOTE | 2024-05-02 10:15 | SWNOTE1 ---
BRETT spoke to Araceli from [facility] and precert still pending. BRETT sent Araceli PT/OT from today, labs, and vitals. BRETT did check with Araceli and she will be working from home tomorrow. IF patient does not get approved today, Araceli at [facility] will continue to check tomorrow and will notify med/surge if approved.
--- NOTE | 2024-05-02 10:36 | P.PN_ITS ---
Progress Note: Subjective Subjective Interval history: Patient stable overnight. Pain tolerable with medication. Afebrile. Normal appetite and no emesis or diarrhea. No chest pain or palpitations. No SOB or cough. Continues to have difficulty ambulating and problems with stairs. Exam Constitutional Vital Signs, click to edit/add: Last Vital Signs Temp 98.3 F 05/02/24 08:11 Pulse 85 05/02/24 08:11 Resp 16 05/02/24 08:11 BP 115/68 05/02/24 08:11 Pulse Ox 90 L 05/02/24 08:11 O2 Del Method Room Air 05/02/24 08:11 O2 Flow Rate 2 04/29/24 04:00 Documenting provider has reviewed patient's vital signs: yes Common normals: no apparent distress, oriented x3 and alert HENMT Common normals: normocephalic Eye Common normals: PERRL and EOMs intact bilaterally Respiratory Common normals: normal respiratory effort and clear to auscultation bilaterally Cardio Common normals: regular rate, regular rhythm, no gallops, no murmurs and no rub GI Common normals: Normal to inspection, nondistended, normoactive bowel sounds present and non-tender Extremity Common normals: no pedal edema Progress Note: A&P Assessment and Plan (1) Streptococcal bacteremia: (2) Diabetic foot infection: (3) Diabetic foot ulcer: Qualifiers: Diabetic foot ulcer location: midfoot Diabetes mellitus type: type 2 Laterality: right Non-pressure ulcer stage: with necrosis of bone Qualified Code(s): E11.621 - Type 2 diabetes mellitus with foot ulcer; L97.414 - Non- pressure chronic ulcer of right heel and midfoot with necrosis of bone (4) NEENA (acute kidney injury): (5) Diabetes: Qualifiers: Diabetes mellitus type: type 2 Diabetes mellitus long term care administrator insulin use: with long term care administrator use Diabetes mellitus complication status: with skin complications Diabetes mellitus complication detail: with foot ulcer Qualified Code(s): E11.621 - Type 2 diabetes mellitus with foot ulcer; L97.509 - Non- pressure chronic ulcer of other part of unspecified foot with unspecified severity; 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 Continues to have difficulty with ambulation and continue PT. Continue Levaquin for infection. Awaiting percertification for SNF.
--- NOTE | 2024-05-02 10:48 | SWNOTE1 ---
SW updated patient that precert is still pending, he voiced understanding.
[2024-05-02 11:07] LABS: Glucometer 234 mg/dL (74-106)
[2024-05-02] MEDS: LEVOFLOXACIN IN DEXTROSE 5 % 750 MG/150 ML PREMIX 100 MG IV (12:08)
[2024-05-02 16:45] LABS: Glucometer 211 mg/dL (74-106)
[2024-05-02 16:49] VITALS: BP 125/79; PULSE 90; TEMP 36.9; O2SAT 93
--- NOTE | 2024-05-02 17:38 | PM.DS1 ---
DS: Providers Provider Date of admission: 04/25/24 14:42 Primary care physician: ERIC HERNANDEZ Consults: 04/25/24 14:20 Consult to Podiatry Routine Consulting Provider: Jesus Feldman Reason for consultation: diabetic foot infection Has provider been notified: Yes 04/26/24 11:14 Physical Therapy Eval and Treat Routine Reason for consultation: NWB right foot Has provider been notified: No 04/27/24 10:53 Occupational Therapy Eval and Treat Routine Reason for consultation: NWB, rehab Has provider been notified: Yes 04/27/24 12:03 Consult to Dietitian Routine Reason for consultation: obesity Has provider been notified: No DS: Diagnosis Discharge Diagnosis (1) Streptococcal bacteremia: (2) Diabetic foot infection: (3) Diabetic foot ulcer: Qualifiers: Diabetic foot ulcer location: midfoot Diabetes mellitus type: type 2 Laterality: right Non-pressure ulcer stage: with necrosis of bone Qualified Code(s): E11.621 - Type 2 diabetes mellitus with foot ulcer; 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 (4) NEENA (acute kidney injury): (5) Diabetes: Qualifiers: Diabetes mellitus type: type 2 Diabetes mellitus senior living 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 Diabetes mellitus complication status: with skin complications Diabetes mellitus complication detail: with foot ulcer Qualified Code(s): E11.621 - Type 2 diabetes mellitus with foot ulcer; L97.509 - Non-pressure chronic ulcer of other part of unspecified foot with unspecified severity; 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 43 y/o male to ER with diabetic foot ulcer. Following with podiatry for wound and noted increased redness and drainage. Podiatry sent to hospital for admission and surgery. Hospital course: Started vancomycin and zosyn. Podiatry consulted. To OR 12/18 for partial amputation and debridement. Blood cultures positive for strep. Did well postoperatively and pain controlled. Afebrile and normal WBC. Worked with PT and very unsteady when up and moving. PT recommended SNF due to stairs at home. Sensitivity showed sensitive to levaquin and stopped zosyn and vancomycin. Received approval from insurance for SNF. Transferred in stable condition. Will take 10 days or oral levaquin. Follow up with podiatry. Resume home medication as directed. Time Spent with Patient Time attestation: Total time spent providing and/or coordinating discharge services: Time spent: greater than 30 minutes Exam Constitutional Vital Signs, click to edit/add: Last Vital Signs Temp 98.5 F 05/02/24 16:49 Pulse 90 05/02/24 16:49 Resp 18 05/02/24 16:49 BP 125/79 05/02/24 16:49 Pulse Ox 93 L 05/02/24 16:49 O2 Del Method Room Air 05/02/24 16:49 O2 Flow Rate 2 04/29/24 04:00 Documenting provider has reviewed patient's vital signs: yes Common normals: no apparent distress, oriented x3 and alert HENMT Common normals: normocephalic Eye Common normals: PERRL and EOMs intact bilaterally Respiratory Common normals: clear to auscultation bilaterally Cardio Common normals: regular rate, regular rhythm, no gallops, no murmurs and no rub GI Common normals: Normal to inspection, nondistended, normoactive bowel sounds present and non-tender Extremity Common normals: no pedal edema DS: Data Data Completed and Pending Labs on day of discharge: Labs from last 24 hours 05/02/24 05/02/24 05/02/24 16:44 11:05 07:50 POC Glucose 211 H 234 H 187 H 05/01/24 21:16 POC Glucose 186 H Preliminary micro results at discharge 04/25/24 13:00 Bacterial ID and Susceptibility - Preliminary Bld Sp Anaerob Bld Cul Bottle Streptococcus anginosus 04/26/24 10:07 Anaerobic Culture Extend Incubation - Preliminary Foot - Right Foot 04/26/24 10:07 Mycology Culture - Preliminary Foot - Right Foot 04/26/24 10:07 Mycology Culture - Preliminary Foot Right 04/25/24 12:45 Bacterial ID and Susceptibility - Preliminary Blood - Right Antecubital Streptococcus anginosus 04/26/24 10:07 Acid Fast Bacilli Culture - Preliminary Foot - Right Foot 04/26/24 10:07 Acid Fast Bacilli Culture - Preliminary Foot Right Discharge Plan Discharge Disposition: Xfer SNF Condition: Good Discharge Medications: New oxycodone-acetaminophen 5-325 mg Tablet 1 tab PO Q6H PRN (Reason: Pain) 5 Days Qty: 20 0RF levofloxacin 750 mg tablet 750 mg PO DAILY 10 Days Qty: 10 0RF Continued aspirin [Adult Aspirin Regimen] 81 mg tablet,delayed release (DR/EC) 81 mg PO QDAY atorvastatin 40 mg tablet 40 mg PO QDAY insulin glargine [Lantus U-100 Insulin] 100 unit/mL solution 44 unit subcut BID insulin lispro 100 unit/mL solution 1 sliding scale dose subcut USEASDIRECTD metformin 500 mg tablet 1,000 mg PO BID dapagliflozin propanediol 10 mg tablet 10 mg PO .QD lisinopril 30 mg tablet 30 mg PO .QD Print Language: Turkish Forms: Portal Instructions Follow Up Appointments: Needs a follow up with Dr Feldman Scheduled
--- OUTSIDE RECORDS SUMMARY | 2024-05-04 07:50 | XMS_ITS | CCD ---
Author Organization [facility] Care Team Providers Care Coupling 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 Name Role Phone Link Ortega Unavailable [...] DR NATALIE Lozada Primary Care Unavailable MARTELL NAAVS Admitting Unavailable NATANAEL FELDMAN Attending Unavailable NATANAEL [...] Care Unavailable HIGHLANDER, NATANAEL Marks Admitting Unavailable Natalie Hernandez MD Primary Care Provider MD Damon Claros Attending Provider [phone] MD Shelby [facility] Provider [phone] Natalie Hernandez MD Primary Care Provider Glo COMPUTER PROCESSING SCHEDULER, Blossom Kong Unavailable BLOSSOM CODY Attending Unavailable GLO, BLOSSOM Kong Attending Unavailable RUSHER, MIRLANDE Zhang Attending Unavailable RUSHER, MIRLANDE Zhang Attending Unavailable GLO, BLOSSOM Kong Attending Unavailable RUSHER, MIRLANDE S Attending Unavailable RUSHER, MIRLANDE S Attending Unavailable GLO, BLOSSOM A Attending Unavailable GOL, BLOSSOM Kong Attending Unavailable Wonderly, [facility] Care Unavailable Michelleander, Natanael Marks Admitting Unavailable Highlander, Natanael Marks Attending Unavailable Shelby, [facility] Care Unavailable Damon Claros Admitting Unavailable Damon Claros Attending Unavailable Medications Current Medications Medication Drug Class(es) Dates Sig (Normalized) Sig (Original) 0.25 MG, 0.5 MG Dose 3 ML semaglutide 0.68 MG/ML Pen Injector [Ozempic] (1 source) Start: 01-04-2023 inject 0.5 mg by subcutaneous injection every week Ozempic (0.25 or 0.5 MG/DOSE) 2 MG/3ML 0.5mg Subcutaneous once weekly for 84 days Dec, Active aspirin 81 mg chewable tablet (20 sources) Platelet Aggregation Inhibitor, Nonsteroidal Anti-inflammatory Drug Start: 10-19-2023 take 81 mg by mouth once daily Aspirin Active 81 MG PO Daily October 19, 2023 12:00am take 1 tablet by mouth in the mo rn aspirin 81 MG EC tablet Take 1 [...] 02/28/2024 Active dapagliflozin 10 mg oral tablet (10 sources) Sodium-Glucose Cotransporter 2 Inhibitor Start: 10-19-2023 dapagliflozin (Farxiga) 10 MG 01/17/2024 Active ertugliflozin 15 mg oral tablet (12 sources) take 1 tablet by mouth in the morning Steglatro Take 1 tablet by mouth in the morning. 0 Active insulin glargine 100 unt/ml injectable solution (13 sources) Insulin Analog inject 44 [IU] by [...] Increase(titrate up to max 50 units/day); Provider: Shanonn Price insulin glargine-yfgn 100 unit/ml solution (2 [...] 01-26-2024 Insulin Lispro Discontinued 0 SUBCUT .COMPLEX December 15, 2023 2:47pm January 26, 2024 [...] Active insulin lispro (HumaLOG) 100 UNIT/ML injection (13 sources) insulin lispro ( HumaLOG) 100 UNIT/ML [...] 3 ml liraglutide 6 mg/ml pen injector (12 sources) GLP-1 Receptor Agonist Start: 10-19-2023 inject 1.8 mg by subcutaneous injection once daily Victoza 18 MG/3ML injection Inject 1.8 mg under the skin Daily 10/27/2023 Active Start: 06-09-2023 inject 1.8 mg by sub cutaneous injection once daily Victoza 18 MG/3ML 1.8mg Subcutaneous daily for 84 days May, Active lisinopril 30 mg oral tablet (20 sources) Angiotensin Converting Enzyme Inhibitor Start: 06-16-2023 End: 10-16-2024 take 1 tablet by mouth once daily lisinopril 30 MG tablet Indications: Essential hypertension (CMS/HCC) Take 1 tablet (30 mg) by mouth Daily 90 tablet 1 04/19/2024 10/16/2024 Active End: 06-16-2023 take 1 tablet by mouth in the morning lisinopril 20 MG tablet Take 1 tablet by mouth in the morning. 0 06/16/2023 Discontinued (Dose adjustment) metFORMIN hydrochloride 500 mg oral tablet (20 [...] day(s) Active urea 400 mg/ml topical cream (8 sources) Start: 12-01-2023 urea (Carmol) 40 % [...] 100 UNITS 10/21/2023 01/19/2024 Discontinued (Duplicate order) Problems Active Problems Problem Classification Problem Date Documented Da te Episodic/Chronic Acquired foot deformities (19 sources) Hallux rigidus, unspecified foot; Translations: [Hallux [...] deficiency; Translations: [Vitamin D deficiency, unspecified] Chronic Open wounds of extremities (20 sources) Traumatic amputation of toe; 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, initial encounter] Onset: 10-02-2022 10-02-2022 Chronic Open wounds of extremities (10 sources) Traumatic amputation of toe; Translations: [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, sequela] Onset: 11-03-2023 11-03-2023 Chronic Open wounds of extremities (5 sources) Unspecified open wound, unspecified foot, initial encounter; Translations: [Injury of left foot] Episodic Osteoarthritis (15 sources) Arthritis of left foot; Translations: [Primary osteoarthritis, left ankle and foot] Onset: 10-02-2022 10-02-2022 Chronic Other aftercare (11 sources) Long-term current use of insulin; Translations: [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 (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] 06-17-2023 Episodic Other aftercare (4 sources) FDC (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 Onset: 01-06-2022 Resolved: [...] Chronic Other nutritional; endocrine; and metabolic disorders (17 sources) Lipoprotein deficiency disorder; Translations: [Lipoprotein deficiency] Onset: 10-02-2022 10-02-2022 Chronic Other nutritional; endocrine; and metabolic disorders (17 sources) Morbid obesity; Translations: [Morbid (severe) obesity [...] caused by tuberculosis or sexually transmitted disease) (20 sources) Osteomyelitis of right foot; Translations: [Osteomyelitis, unspecified] Onset: 10-02-2022 Resolved: 06-17-2023 10-02-2022 Chronic Nutritional deficiencies (20 sources) Deficiency of other specified B group vitamins; Translations: [Cobalamin deficiency] Onset: 01-06-2022 Resolved: 01-06-2022 Episodic Other infections; including parasitic (13 sources) Personal history of other infectious and parasitic diseases; Translations: [History of COVID-19] Onset: 05-13-2020 Resolved: 06-17-2023 10-02-2022 Episodic Other non-traumatic joint disorders (1 source) Pain in left ankle and joints of left foot; Translations: [PAIN IN LEFT ANKLE] Onset: 06-24-2022 Episodic Other nutritional; endocrine; and metabolic disorders (15 sources) H/O: Disorder; Translations: [Personal history of other endocrine, nutritional and metabolic disease] Onset: 04-13-2018 Resolved: 06-17-2023 03-22-2023 Episodic Other skin disorders (5 sources) Corns and callosities; Translations: [CORNS AND CALLOSITIES] Onset: 12-15-2021 Episodic Superficial injury; contusion (4 sources) Blister (nonthermal), right foot, initial encounter; Translations: [BLISTER NONTHERMAL RT FOOT INITIAL] Onset: 12-29-2021 Episodic Results Test Name Value Interpretation Reference Range Facility [facility] 04-26-2024 L Specimen: [id number] Received: 04/26/24 Status: CALEB Gabriel Num: [id number] Spec Type: Surgical Subm Dr: Natanael Feldman DPM, Tissues: A Skin-Other than Cyst, tag, debridement or plastic repair (RT FOOT ULCER) Procedures: Yenny SCOTT/Mary Robles Age/ Patient Sex Location Account Attending Physician Trev Ontiveros 43/M LABELL [id number] Natanael Feldman DPM, SPEC NUM: [id number] RECD: 04/26/24 STATUS: CALEB GABRIEL NUM: [id number] MARTHA: 04/26/[address]: Natanael Feldman DPM, MS ENTERED: 04/26/[address] [facility] [address]: Farzana Rene SPEC TYPE: Surgical DEPT: DERRICK PLUNKETT ENTERED BY: [id number] RECV BY: [id number] ORDERED: HE, Gross/Micro L4 ORDERED: HE, Gross/Micro L4 Pathological Diagnosis Ulcer, right foot, excision: Skin ulceration with underlying soft tissue acute inflammation and necrosis. Clinical Information Right diabetic foot infection Gross Description Part A is received in formalin labeled with the patients name, date of , and RT foot ulcer is an ovoid portion of sr-pink to purple-green, rubbery subcutaneous tissue, 3 x 2 x 0.8 cm. The surface of the specimen is lined by pink-sr to purple plaque-like material. Serial sections reveal purple-brown to green, softened cut surfaces. Glue Bone Crusher sections are submitted in a single cassette. (1, ss, [id number] A) CPT Codes 26479 Specimen: [id number] Received: 04/26/24 Status: CALEB Nery Num: [id number] Spec Type: Surgical Subm Dr: Natanael Feldman DPM, MS Tissues: A Skin-Other than Cyst, tag, debridement or plastic repair (RT FOOT ULCER) Procedures: HE, Gross/Micro L4 Patient: Trev Ontiveros [id number] (Continued) Signed (signature on file) Melanie Roca MD 04/27/24 1349 Normal [facility] A1C HEMOGLOBINon 06-09-2023 HbA1c (Bld) [Mass fraction] 8.2 % [place] Other Glucose - FINGER STICKon Glucose [Mass/Vol] 170 mg/dL [place] Other HbA1c (Bld) [Mass fraction]o n 06-09-2023 A1C HEMOGLOBIN Mr [facility] Other A1C HEMOGLOBINon 01-04-2023 HbA1c (Bld) [Mass fraction] 8.9 % [place] Other Glucose - FINGER STICKon Glucose [Mass/Vol] 201 mg/dL [place] Other HbA1c (Bld) [Mass fraction]o n 01-04-2023 A1C HEMOGLOBIN Mr [facility] Other PROF CHEM 8 (BAS METB)on Anion gap [Moles/Vol] 14.3 mmol/L Normal [facility] Comment on above: Performed By: #### B MP #### [facility] [address] [address] [address] Lauri Todd Calcium [Mass/Vol] 9.4 mg/dL Normal 8.5-10.1 [facility] Comment on above: Performed By: #### B MP #### [facility] [address] [address] [address] Lauri Todd Chloride [Moles/Vol] 101 mmol/L Normal 98-107 [facility] Comment on above: Performed By: #### B MP #### [facility] [address] [address] [address] Lauri Todd CO2 [Moles/Vol] 26.2 mmol/L Normal 21.0-32.0 [facility] Comment on above: Performed By: #### B MP #### [facility] [address] [place] [address] Dr. Lauri Todd Creatinine [Mass/Vol] 0.90 mg/dL Normal 0.70-1.30 [facility] Comment on above: Performed By: #### B MP #### [facility] [address] [address] [address] Lauri Todd EGFR-AF BURKINAN >60 Normal >=60 [facility] Comment on above: Performed By: #### B MP #### [facility] [address] [place] [address] Dr. Lauri Todd EGFR-NON AF BURKINAN >60 Normal >=60 [facility] Comment on above: Performed By: #### B MP #### [facility] [address] [address] [address] Lauri Todd Glucose [Mass/Vol] 146 mg/dL Critically high 74-106 [facility] Comment on above: Performed By: #### B MP #### [facility] [address] [place] [address] Dr. Lauri Todd Potassium [Moles/Vol] 4.5 mmol/L Normal 3.5-5.1 [facility] Comment on above: Performed By: #### B MP #### [facility] [address] [place] [address] Dr. Lauri Todd Sodium [Moles/Vol] 137 mmol/L Normal 136-145 [facility] Comment on above: Performed By: #### B MP #### [facility] [address] [place], [place] [address] Dr. Lauir Todd Urea nitrogen [Mass/Vol] 16.0 mg/dL Normal 7.0-18.0 [facility] Comment on above: Performed By: #### B MP #### [facility] [address] [place], [place] [address] Dr. Lauri Todd Urea nitrogen/Creatinin e [Mass ratio] 17.8 mg/mg Normal [facility] Comment on above: Performed By: #### B MP #### [facility] [address] [address] [address] Lauri Todd A1C HEMOGLOBINon 06-25-2022 HbA1c (Bld) [Mass fraction] 8.2 % [place] Other Glucose - FINGER STICKon Glucose [Mass/Vol] 180 mg/dL [place] Other HbA1c (Bld) [Mass fraction]o n 06-25-2022 [facility] Other XR FOOT LT MIN 3 VIEWSon XR FOOT LT MIN 3 VIEWS EXAM: XR ANKLE LT MIN 3 V, XR FOOT LT MIN 3 VIEWS HISTORY: Pain of left ankle joint COMPARISON: None. TECHNIQUE: Frontal, lateral, and oblique views of the left ankle/foot. FINDINGS/IMPRESSION: Mineralization: Within normal limits. Bones: No acute fractures or dislocations. Old medial malleolus avulsion fractures. Additional dysmorphic/chronical ly fractured appearance of the second distal phalanx, [...] by: RAFAEL WHITAKER Date: 2022-05-25 11:52 Normal [facility] A1C HEMOGLOBINon 01-06-2022 HbA1c (Bld) [Mass fraction] 7 % [facility] [employer] Other Glucose - FINGER STICKon Glucose [Mass/Vol] 148 mg/dL [facility] [employer] Other HbA1c (Bld) [Mass fraction]o n 01-06-2022 A1C HEMOGLOBIN [facility] [employer] Other Basic Metabolic Panelon - Anion gap [Moles/Vol] 20 mmol/L Normal 12-20 [facility] Comment on above: Result Comment: Effe ctive 05/15/2019 reference range changed. Performed By: #### B MP #### [facility] [address] [place], [place] [id number] Calcium [Mass/Vol] 10.0 mg/dL Normal 8.6-10.2 [facility] Comment on above: Performed By: #### B MP #### [facility] [address] [place], [place] [id number] Chloride [Moles/Vol] 100 mmol/L Normal 98-107 [facility] Comment on above: Performed By: #### B MP #### [facility] [address] [place], [place] [id number] CO2 [Moles/Vol] 22 mmol/L Normal 20-31 [facility] Comment on above: Performed By: #### B MP #### [facility] [address] [place], [place] [id number] Creatinine [Mass/Vol] 0.8 mg/dL Normal 0.7-1.4 [facility] Comment on above: Performed By: #### B MP #### [facility] [address] [place], [place] [id number] eGFRAA 129 mL/min/1.73m2 Normal >60 [facility] Comment on above: Performed By: #### B MP #### [facility] [address] [place], [place] [id number] eGFRNAA 107 mL/min/1.73m2 Normal >60 [facility] Comment on above: Performed By: #### B MP #### [facility] [address] [place] [id number] Glucose [Mass/Vol] 140 mg/dL High 65-99 [employer] [place] [employer] Comment on above: Result Comment: For FASTING Glucose --- ADA reference ranges: Normal 65-99 mg/dl Prediabetes 100-125 Diabetes >/= 126 Performed By: #### B MP #### [facility] [address] [facility] [place] [id number] Potassium [Moles/Vol] 4.3 mmol/L Normal 3.5-5.5 [facility] Comment on above: Performed By: #### B MP #### [facility] [address] [facility] [place] [id number] Sodium [Moles/Vol] 137 mmol/L Normal 135-146 [facility] [employer] Comment on above: Performed By: #### B MP #### [facility] [address] [place], [place] [id number] Urea nitrogen [Mass/Vol] 17 mg/dL Normal 7-25 [facility] [employer] Comment on above: Performed By: #### B MP #### [facility] [address] [place], [place] [id number] Vital Signs Date Time Vital Sign Value Performing Clinician Facility 04-19-2024 09:47-0500 Body mass index (BMI) [Ratio] 52.21 kg/m2 Blossom Cody COMPUTER PROCESSING SCHEDULER Work Phone: [facility] 04-19-2024 09:47-0500 Body weight 172.19 kg Blossom Cody COMPUTER PROCESSING SCHEDULER Work Phone: [facility] 04-19-2024 09:47-0500 Diastolic blood pressure 72 mm[Hg] Blossom Cody COMPUTER PROCESSING SCHEDULER Work Phone: [facility] 04-19-2024 09:47-0500 Heart rate 84 /min Blossom Cody COMPUTER PROCESSING SCHEDULER Work Phone: [facility] 04-19-2024 09:47-0500 Systolic blood pressure 128 mm[Hg] Blossom Cody COMPUTER PROCESSING SCHEDULER Work Phone: [facility] 01-26-2024 09:59-0400 Body height 182.88 cm [facility] 01-26-2024 09:59-0400 Body mass index (BMI) [Ratio] 51.2 kg/m2 [facility] 01-26-2024 09:59-0400 Body weight 171.54 kg [facility] 01-26-2024 09:59-0400 Diastolic blood pressure 83 mm[Hg] [facility] 01-26-2024 09:59-0400 Heart rate 81 /min [facility] 01-26-2024 09:59-0400 Respiratory rate 18 /min [facility] 01-26-2024 09:59-0400 SaO2% (BldA) [Mass fraction] 94 % [facility] 01-26-2024 09:59-0400 Systolic blood pressure 155 mm[Hg] [facility] 01-19-2024 11:00-0400 Body mass index (BMI) [Ratio] 51.82 kg/m2 Blossom Cody COMPUTER PROCESSING SCHEDULER Work Phone: [facility] 01-19-2024 11:00-0400 Body weight 170.91 kg Blossom Lozoyael COMPUTER PROCESSING SCHEDULER Work Phone: [facility] 01-19-2024 11:00-0400 Diastolic blood pressure 78 mm[Hg] Blossom Lozoyael COMPUTER PROCESSING SCHEDULER Work Phone: [facility] 01-19-2024 11:00-0400 Heart rate 84 /min Blossomdidier Lozoyael COMPUTER PROCESSING SCHEDULER Work Phone: [facility] 01-19-2024 11:00-0400 Systolic blood pressure 136 mm[Hg] Blossom Lozoyael COMPUTER PROCESSING SCHEDULER Work Phone: [facility] 10-19-2023 11:31-0400 Body height 182.88 cm [facility] 10-19-2023 11:31-0400 Body mass index (BMI) [Ratio] 51.7 kg/m2 [facility] 10-19-2023 11:31-0400 Body weight 172.87 kg [facility] 10-19-2023 11:31-0400 Diastolic blood pressure 83 mm[Hg] [facility] 10-19-2023 11:31-0400 Heart rate 74 /min [facility] 10-19-2023 11:31-0400 Respiratory rate 18 /min [facility] 10-19-2023 11:31-0400 SaO2% (BldA) [Mass fraction] 97 % [facility] 10-19-2023 11:31-0400 Systolic blood pressure 149 mm[Hg] [facility] 06-16-2023 11:33-0500 Diastolic blood pressure 84 mm[Hg] Blossomdidier Lozoyael COMPUTER PROCESSING SCHEDULER Work Phone: [facility] 06-16-2023 11:33-0500 Systolic blood pressure 154 mm[Hg] Blossom Lozoyael COMPUTER PROCESSING SCHEDULER Work Phone: [facility] 06-16-2023 11:02-0500 Body mass index (BMI) [Ratio] 52.12 kg/m2 Blossomdidier Lozoyael COMPUTER PROCESSING SCHEDULER Work Phone: [facility] 06-16-2023 11:02-0500 Body weight 171.91 kg Blossomdidier Lozoyael COMPUTER PROCESSING SCHEDULER Work Phone: [facility] 06-16-2023 11:02-0500 Heart rate 92 /min Blossom Lozoyael COMPUTER PROCESSING SCHEDULER Work Phone: [facility] 06-09-2023 08:45-0500 Body height Tondra Mapus Other [employer] [facility] [employer] Other 06-09-2023 08:45-0500 Body height 182.88 cm MD Natalie Hernandez Work Phone: [facility] 06-09-2023 08:45-0500 Body mass index (BMI) [Ratio] 51.33 kg/m2 Tondra Mapus Other [employer] [facility] [employer] Other 06-09-2023 08:45-0500 Body weight 171.69 kg Tondra Mapus Other [facility] Other 06-09-2023 08:45-0500 Body weight 171.68 kg MD Natalie Hernandez Work Phone: [facility] 06-09-2023 08:45-0500 Diastolic blood pressure 80 mm[Hg] Tondra Mapus Other [facility] 06-09-2023 08:45-0500 Respiratory rate 18 /min Tondra Mapus Other [facility] Other 06-09-2023 08:45-0500 SaO2% (BldA) [Mass fraction] 94 % Tondra Mapus Other [facility] Other 06-09-2023 08:45-0500 Systolic blood pressure 148 mm[Hg] Tondra Mapus Other [facility] 01-04-2023 08:45-0400 Body height Tondra Mapus Other [facility] Other 01-04-2023 08:45-0400 Body mass index (BMI) [Ratio] 51.37 kg/m2 Tondra Mapus Other [facility] Other 01-04-2023 08:45-0400 Body weight 171.82 kg Tondra Mapus Other [facility] Other 01-04-2023 08:45-0400 Diastolic blood pressure 85 mm[Hg] Tondra Mapus Other [facility] Other 01-04-2023 08:45-0400 Respiratory rate 18 /min Tondra Mapus Other [facility] Other 01-04-2023 08:45-0400 SaO2% (BldA) [Mass fraction] 98 % Tondra Mapus Other [facility] Other 01-04-2023 08:45-0400 Systolic blood pressure 150 mm[Hg] Tondra Mapus Other [facility] Other 06-25-2022 09:45-0500 Body height Tondra Mapus Other [facility] Other 06-25-2022 09:45-0500 Body mass index (BMI) [Ratio] 51.14 kg/m2 Tondra Mapus Other [facility] Other 06-25-2022 09:45-0500 Body weight 171.05 kg Tondra Mapus Other [facility] Other 06-25-2022 09:45-0500 Diastolic blood pressure 80 mm[Hg] Tondra Mapus Other [facility] Other 06-25-2022 09:45-0500 Respiratory rate 18 /min Tondra Mapus Other [facility] Other 06-25-2022 09:45-0500 SaO2% (BldA) [Mass fraction] 95 % Tondra Mapus Other [facility] Other 06-25-2022 09:45-0500 Systolic blood pressure 139 mm[Hg] Tondra Mapus Other [facility] Other 01-06-2022 09:45-0400 Body height Tondra Mapus Other [facility] Other 01-06-2022 09:45-0400 Body mass index (BMI) [Ratio] 48.28 kg/m2 Tondra Mapus Other [facility] Other 01-06-2022 09:45-0400 Body weight 161.48 kg Tondra Mapus Other [facility] Other 01-06-2022 09:45-0400 Diastolic blood pressure 71 mm[Hg] Tondra Mapus Other [facility] Other 01-06-2022 09:45-0400 Respiratory rate 20 /min Tondra Mapus Other [facility] Other 01-06-2022 09:45-0400 SaO2% (BldA) [Mass fraction] 95 % Tondra Mapus Other [facility] Other 01-06-2022 09:45-0400 Systolic blood pressure 124 mm[Hg] Tondra Mapus Other [facility] Other Encounters Encounter Date Encounter Type Care Provider Facility Start: 04-27-2024 End: 04-29-2024 [facility] Result Encounter Generic External Data Provider [facility] External Department Unsolicited Start: 04-27-2024 End: 04-29-2024 [facility] Result Encounter Generic External Data Provider [facility] External Department Unsolicited Start: 04-26-2024 End: 04-26-2024 [facility] Facility:[facility] Start: 04-25-2024 End: 04-27-2024 [facility] Result Encounter Generic External Data Provider [facility] External Department Unsolicited Start: 04-25-2024 End: 04-27-2024 [facility] Result Encounter Generic External Data Provider [facility] External Department Unsolicited Start: 04-19-2024 End: 04-19-2024 Cedrick Cody NP Work Phone: [facility] Start: 04-19-2024 End: 04-19-2024 Bamboo flowsheet Blossom Cody COMPUTER PROCESSING SCHEDULER Work Phone: [facility] Start: 04-19-2024 End: 04-19-2024 Patient encounter status Blossom Cody COMPUTER PROCESSING SCHEDULER Work Phone: [facility] Start: 04-19-2024 End: 04-19-2024 Periodic preventive med est patient 40-64yrs Blossom Cody COMPUTER PROCESSING SCHEDULER Work Phone: [facility] Comment on above: Diabetic polyneuropa thy associated with type 2 diabetes mellitus (CMS/HCC) (Primary Dx); Wellness examination; 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); Essential hypertension; 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, subsequent encounter ([facility]/HCC); Dyslipidemia (CMS/HCC); Hypertriglyceridemia (CMS/HCC); Poorly controlled diabetes mellitus (CMS/HCC); Type 2 diabetes mellitus with hyperglycemia, with long-term current use of insulin (CMS/HCC); Amputation of toe, traumatic, left, sequela (CMS/HCC); Essential hypertension; Diabetic autonomic neuropathy associated with type 2 diabetes mellitus (CMS/HCC); Acquired hallux valgus, unspecified laterality; Morbid obesity (CMS/HCC); Vitamin B 12 deficiency; 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CMS/HCC) Start: 04-19-2024 End: 04-19-2024 ambulatory BLOSSOM CODY Not Available Start: 02-28-2024 End: 02-28-2024 Lenard Hernandez MD Work Phone: [facility] Comment on above: Pure hyperglyceridem ia ([facility]/HCC) Start: 01-26-2024 End: 01-26-2024 ambulatory [facility] Work Phone: Start: 01-26-2024 End: 01-26-2024 Patient encounter procedure [facility] Work Phone: Start: 01-20-2024 Non-patient / Non-visit [facility] Work Phone: Start: 01-19-2024 End: 01-19-2024 Bamboo flowsheet Blossom Cody COMPUTER PROCESSING SCHEDULER Work Phone: [facility] Start: 01-19-2024 End: 01-19-2024 Bamboo flowsheet Blossom Cody COMPUTER PROCESSING SCHEDULER Work Phone: [facility] Start: 01-19-2024 End: 01-19-2024 Office outpatient visit 25 minutes Blossom Cody COMPUTER PROCESSING SCHEDULER Work Phone: [facility] Comment on above: Diabetic polyneuropa thy associated with type 2 diabetes mellitus (CMS/HCC) (Primary Dx); 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); Essential hypertension; 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, subsequent encounter (CMS/HCC); Type 2 diabetes mellitus with hyperglycemia, with long-term current use of insulin (CMS/HCC); Dyslipidemia (CMS/HCC); Hypertriglyceridemia (CMS/HCC); Amputation of toe, traumatic, left, sequela (CMS/HCC); Vitamin B 12 deficiency; Pure hyperglyceridemia (CMS/HCC) Start: 01-19-2024 End: 01-19-2024 ambulatory BLOSSOM CODY Not Available Start: 12-30-2023 End: 12-30-2023 Refill Natalie Hernandez MD Work Phone: [facility] Comment on above: Essential hypertensi on Start: 10-29-2023 End: 10-29-2023 ambulatory MIRLANDE MOORE Not Available Start: 10-19-2023 End: 10-19-2023 ambulatory [facility] Work Phone: Start: 10-19-2023 End: 10-19-2023 Patient encounter procedure [facility] Work Phone: Start: 10-12-2023 End: 10-12-2023 ambulatory MIRLANDE MOORE Not Available Start: 09-15-2023 End: 09-15-2023 ambulatory BLOSSOM CODY Not Available Start: 09-06-2023 End: 09-06-2023 ambulatory MIRLANDE MOORE Not Available Start: 08-02-2023 End: 08-02-2023 ambulatory MIRLANDE MOORE Not Available Start: 07-07-2023 End: 07-07-2023 ambulatory BLOSSOM CODY Not Available Start: 06-16-2023 Bamboo flowsheet Blossom cabrales COMPUTER PROCESSING SCHEDULER Work Phone: [facility] Start: 06-16-2023 Bamboo flowsheet Blossom cabrales COMPUTER PROCESSING SCHEDULER Work Phone: [facility] Start: 06-16-2023 End: 06-16-2023 Office outpatient visit 25 minutes Blossom Cody COMPUTER PROCESSING SCHEDULER Work Phone: [facility] Comment on above: Diabetic polyneuropa thy associated with type 2 diabetes mellitus (CMS/HCC) (Primary Dx); Diabetic neuropathic arthropathy ([facility]); Type 2 diabetes mellitus with neurological manifestation ([facility]); 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, sequela ([facility]); Ulcer of foot due to type 2 diabetes mellitus ([facility]); Vitamin B 12 deficiency; Hx of diabetic neuropathy; 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CMS/HCC); Hypertriglyceridemia (CMS/[facility]); 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, 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); Essential hypertension; Nasal congestion; Type 2 diabetes mellitus with diabetic autonomic neuropathy, with long-term current use of insulin ([facility]); 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); Acquired absence of other toe(s), unspecified side (Z89.429); Type 2 diabetes mellitus with diabetic neuropathy, with long-term current use of insulin ([facility]); Body mass index [BMI] 50.0-59.9, adult (Z68.43); Type 2 diabetes mellitus with foot ulcer, with long-term current use of insulin ([facility]); 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.49); Status post amputation of lesser toe, unspecified laterality ([facility]); Arthritis of left foot; Acquired hallux valgus of left foot; Type 2 diabetes mellitus with hyperglycemia, with long-term current use of insulin ([facility]); Morbid obesity ([facility]) Start: 06-16-2023 End: 06-16-2023 ambulatory BLOSSOM CODY Not Available Start: 06-15-2023 End: 06-15-2023 ambulatory Tondra Mapus Other [place] [facility] Start: 06-15-2023 Telephone encounter Tondra Dayannaus [facility] Start: 06-09-2023 (DM) Diabetes Tondra Dayannaus [facility] Start: 06-09-2023 End: 06-09-2023 Discharged Recurring MD Natalie Hernandez [facility] Work Phone: Start: 06-09-2023 End: 06-09-2023 ambulatory MD Natalie Hernandez Work Phone: [place] [facility] Start: 06-09-2023 End: 06-09-2023 Patient encounter procedure MD Natalie Hernandez Work Phone: [facility] Start: 01-04-2023 (DM) Diabetes Tondra Shannon [facility] Start: 01-04-2023 End: 01-04-2023 ambulatory Tondra Mapus Other [place] [facility] Start: 12-21-2022 End: 12-21-2022 ambulatory Tondra Mapus Other [place] Other Start: 12-21-2022 Telephone encounter Tondra Mapus [facility] Start: 10-12-2022 ambulatory NATANAEL FELDMAN Faci lity:H1 Start: 10-06-2022 End: 10-07-2022 ambulatory NATANAEL FELDMAN Facility:H1 Start: 10-01-2022 Encounter for prepro cedural cardiovascular examination NATANAEL FELDMAN [facility] Start: 10-01-2022 Encounter for prepro cedural laboratory examination NATANAEL FELDMAN [facility] Start: 09-30-2022 End: 10-01-2022 ambulatory NATANAEL Selina [facility]ED [facility] Facility:H1 Start: 09-30-2022 End: 10-01-2022 Encounter for preprocedural laboratory examination [facility]ATANAEL Selina [facility] Facility:H[facility] Start: 09-15-2022 End: 09-16-2022 ambulatory NATANAEL Marks [facility] NAMED [facility] Facility:H1 Start: 09-10-2022 End: 09-10-2022 ambulatory Tondra Mapus Other [place] Other Start: 09-10-2022 Telephone encounter Tondra Mapus [facility] Start: 08-24-2022 End: 08-25-2022 ambulatory NATANAEL eSlina [facility] NAMED [facility] Facility:H1 Start: 08-10-2022 End: 08-10-2022 ambulatory Tondra Mapus Other [place] Other Start: 08-10-2022 Telephone encounter Tondra Mapus [facility] Start: 08-03-2022 End: 08-04-[address] NATALIE HERNANDEZ Facility:H1 Start: 07-13-2022 End: 07-14-2022 ambulatory MARTELL NAVAS Facility:H1 Start: 06-30-2022 End: 07-01-2022 ambulatory NATANAEL Selina [facility] NAMED [facility] Facility:H1 Start: 06-25-2022 (DM) Diabetes Tondra Mapus [facility] Start: 06-25-2022 End: 06-25-2022 ambulatory Tondra Mapus Other [place] Other Start: 06-16-2022 End: 06-17-2022 ambulatory NATANAEL Selina MICHELLECAROLYNN Facility:H1 Start: 06-08-2022 End: 06-09-2022 ambulatory NATANAEL Marks [facility] NAMED [facility] Facility:H1 Start: 05-25-2022 End: 05-26-2022 ambulatory NATANAEL Marks [facility] NAMED [facility] Facility:H1 Start: 05-12-2022 End: 05-13-2022 ambulatory NATANAEL Marks [facility] NAMED [facility] Facility:H1 Start: 04-30-2022 End: 05-01-2022 ambulatory PETER D HIGHLANDER Facility:H1 Start: 04-24-2022 End: 04-25-2022 ambulatory PETER D HIGHLANDER Facility:H1 Start: 04-17-2022 End: 04-18-2022 ambulatory PETER D HIGHLANDER Facility:H1 Start: 04-08-2022 End: 04-09-2022 ambulatory PETER D HIGHLANDER Facility:H1 Start: 03-31-2022 End: 04-01-2022 ambulatory PETER D HIGHLANDER Facility:H1 Start: 03-23-2022 End: 03-24-2022 ambulatory NATANAEL D HIGHLANDER Facility:H1 Start: 03-16-2022 End: 03-17-2022 ambulatory PETER D HIGHLANDER Facility:H1 Start: 03-09-2022 End: 03-10-2022 ambulatory NATANAEL D HIGHLANDER Facility:H1 Start: 03-03-2022 End: 03-04-2022 ambulatory NATANAEL Marks HIGHLANDER Facility:H1 Start: 02-18-2022 End: 02-18-2022 ambulatory Tondra Mapus Other [place] Other Start: 02-18-2022 Telephone encounter Tondra Shannon [facility] Start: 02-09-2022 End: 02-10-2022 ambulatory NATANAEL Selina FELDMAN Facility:H1 Start: 01-26-2022 End: 01-27-2022 ambulatory NATANAEL FELDMAN Facility:H1 Start: 01-13-2022 End: 01-14-2022 ambulatory NATANAEL FELDMAN Facility:H1 Start: 01-06-2022 (DM) Diabetes Tondra Shannon [facility] Start: 01-06-2022 End: 01-06-2022 ambulatory Tondra Mapus Other [place] [facility] Start: 12-29-2021 End: 12-30-2021 ambulatory NATANAEL MARTINEZANDER Facility:H1 Start: 12-22-2021 End: 12-23-2021 ambulatory NATANAEL Marks HIGHLANDER Facility:H1 Start: 12-15-2021 End: 12-16-2021 ambulatory [...] HIGHLANDER Facility:H1 Start: 10-27-2021 End: 10-28-2021 ambulatory NATANAEL D HIGHLANDER Facility:H1 Start: 10-23-2021 End: 10-24-2021 ambulatory NATANAEL D HIGHLCAROLYNN Facility:H1 Start: 10-21-2021 End: 10-22-2021 ambulatory NATANAEL D HIGHLCAROLYNN Facility:H1 Start: 10-20-2021 End: 10-21-2021 ambulatory NATANAEL D TAIWO Facility:H1 Procedures Date Procedure Procedure Detail Performing Clinician Start: 04-27-2024 BLOOD CULTURE 2 Generic External Data Provider Start: 04-27-2024 BLOOD CULTURE 1 Generic External Data Provider Start: 04-25-2024 BLOOD CULTURE 2 Generic External Data Provider Amputation of toe Tondra Map us Other History of amputatio n of lesser toe Status post amputation of lesser toe, unspecified laterality ([facility]) Blossom Cody COMPUTER PROCESSING SCHEDULER Work Phone: Plan of Treatment Date Care Activity Detail Author Start: 07-26-2025 Glaucoma screening Diabetes: Retinopathy Screening [facility] Start: 07-19-2024 End: 07-19-2024 Patient encounter procedure 07/19/2024 9:30 AM EDT Office Visit [facility] [address] [place] [phone] Blossom Cody NP [address] [place] [address] [facility] Start: 04-26-2024 Hemoglobin A1c measurement Diabetes: Hemoglobin A1C [facility] Start: 04-19-2024 End: 04-19-2024 Patient encounter procedure [facility] Comment on above: Diabetic polyneuropathy associated with type 2 diabetes mellitus ([facility]/HCC) (Primary Dx); Wellness examination; Type 2 diabetes mellitus with neurological manifestation ([facility]); Essential hypertension; 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, subsequent encounter ([facility]); Dyslipidemia ([facility]); Hypertriglyceridemia ([facility]); Poorly controlled diabetes mellitus ([facility]); Type 2 diabetes mellitus with hyperglycemia, with long-term current use of insulin ([facility]); Amputation of toe, traumatic, left, sequela ([facility]) Start: 03-24-2024 Urine screening for protein Diabetes: Urine Protein Screening [facility] Start: 03-15-2024 Influenza vaccination Influenza Vaccine (#1) [facility] Comment on above: Postponed from 01/09/2024 (Patient Refus ed) Start: 01-25-2024 End: 01-25-2024 Patient encounter procedure 01/25/2024 10:30 AM EDT Office Visit [facility] [address] [place] [phone] Blossom Cody NP [address] [place] [address] [facility] Start: 01-19-2024 Hemoglobin A1c measurement Diabetes: Hemoglobin A1C [facility] Start: 01-19-2024 End: 01-19-2024 Patient encounter procedure 01/19/2024 11:00 AM EDT Office Visit [facility] [address] [place] [phone] Blossom Cody NP [address] [place] [address] Diabetic polyneuropathy associated with type 2 diabetes mellitus (CMS/HCC) (Primary Dx); 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); Essential hypertension; 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, subsequent encounter (CMS/HCC); Type 2 diabetes mellitus with hyperglycemia, with long-term current use of insulin (CMS/HCC); Dyslipidemia (CMS/HCC); Hypertriglyceridemia (CMS/HCC); Amputation of toe, traumatic, left, sequela (CMS/HCC); Vitamin B 12 deficiency [facility] Comment on above: Diabetic polyneuropathy associated with type 2 diabetes mellitus (CMS/HCC) (Primary Dx); 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); Essential hypertension; 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, subsequent encounter (CMS/HCC); Type 2 diabetes mellitus with hyperglycemia, with long-term current use of insulin (CMS/HCC); Dyslipidemia (CMS/HCC); Hypertriglyceridemia (CMS/HCC); Amputation of toe, traumatic, left, sequela (CMS/HCC); Vitamin B 12 deficiency Start: 01-09-2024 Influenza vaccination Influenza Vaccine (#1) [facility] Start: 09-15-2023 End: 09-15-2023 Patient encounter procedure 09/15/2023 9:30 AM EDT Office Visit [facility] [address] [place] [phone] Blossom Cody NP [address] [place] [address] [facility] Start: 09-07-2023 Hemoglobin A1c measurement Diabetes: Hemoglobin A1C [facility] Start: 07-26-2023 Glaucoma screening Diabetes: Retinopathy Screening [facility] Start: 07-07-2023 End: 07-07-2023 Patient encounter procedure 07/07/2023 9:00 AM EST Office Visit [facility] [address] [place] [phone] [facility] Start: 06-16-2023 End: 06-16-2023 Patient encounter procedure 06/16/2023 11:00 AM EST [facility] [address] [place] [phone] Blossom Cody NP [address] [place] [address] Diabetic polyneuropathy associated with type 2 diabetes [...] disorder (CMS/HCC); Morbid obesity (CMS/HCC); Hypertriglyceridemia (CMS/HCC) [facility] Comment on above: Diabetic polyneuropathy [...] hyperglycemia, with long-term current use of insulin ([facility]/HCC); Vitamin B 12 deficiency; Hx of diabetic neuropathy; 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CMS/HCC); Morbid obesity ([facility]/HCC); Hypertriglyceridemia ([facility]) BLOOD CULTURE 1 BLOOD CULTURE 1 Lab Routine 04/27/2024 6:10 AM [facility] BLOOD CULTURE 2 BLOOD CULTURE 2 Lab Routine 04/25/2024 1:00 PM [facility] BLOOD CULTURE 2 BLOOD CULTURE 2 Lab Routine 04/27/2024 6:24 AM [facility] Comprehensive metabo lic 2000 panel - Serum or Plasma [facility] Patient Education Diabetes and diet [facility] Work Phone: [facility] Immunizations Immunization Date Immunization Notes Care Provider Fa cility 03-14-2024 influenza, seasonal, injectable, preservative free Blossom Cody NP Work Phone: [facility] 03-14-2024 influenza virus vacc ine, unspecified formulation Blossom Glo COMPUTER PROCESSING SCHEDULER Work Phone: [facility] 07-05-2023 tetanus and diphther ia toxoids, adsorbed, preservative free, for adult use (2 Lf of tetanus toxoid and 2 Lf of diphtheria toxoid) aNtalie Hernandez MD Work Phone: [facility] 03-24-2023 influenza, injectabl e, quadrivalent, preservative free Blossom Gol COMPUTER PROCESSING SCHEDULER Work Phone: [facility] 03-24-2023 influenza virus vacc ine, unspecified formulation Natalie Hernandez MD Work Phone: [facility] 08-26-2021 tetanus and diphther ia toxoids, adsorbed, preservative free, for adult use (5 Lf of tetanus toxoid and 2 Lf of diphtheria toxoid) Blossom Glo COMPUTER PROCESSING SCHEDULER Work Phone: [facility] 03-28-2021 influenza, injectabl e, quadrivalent, preservative free Blossom Glo COMPUTER PROCESSING SCHEDULER Work Phone: [facility] 02-13-2020 Influenza, injectabl e, Madin Nel Canine Kidney, preservative free, quadrivalent Blossom Glo COMPUTER PROCESSING SCHEDULER Work Phone: [facility] 02-22-2019 influenza, injectabl e, quadrivalent, preservative free Blossom Glo COMPUTER PROCESSING SCHEDULER Work Phone: [facility] 02-07-2018 influenza, injectabl e, quadrivalent, preservative free Blossom Glo COMPUTER PROCESSING SCHEDULER Work Phone: [facility] Payers Date Payer Category Payer Private Health Insurance [facility] [id number] 2022 Unknown [id number] 2020 Self-pay [id number] 1979 Unknown [id number] 2.16.840.1.848225.3.579. 2.593 1979 Unknown [id number] 2.16.840.1.709337.3.579. 2.593 1979 Unknown [id number] 2.16.840.1.812634.3.579. 2.593 1979 Unknown [id number] 2.16.840.1.505891.3.579. 2.593 1979 Unknown [id number] 2.16.840.1.007759.3.579. 2.593 1979 Unknown [id number] 2.16.840.1.718957.3.579. 2.593 1979 Unknown [id number] 2.16.840.1.519072.3.579. 2.593 1979 Unknown [id number] 2.16.840.1.670456.3.579. 2.593 1979 Unknown [id number] 2.16.840.1.220473.3.579. 2.593 1979 Unknown [id number] 2.16.840.1.842083.3.579. 2.593 1979 Unknown [id number] 2.16.840.1.975459.3.579. 2.593 1979 Unknown [id number] 2.16.840.1.049545.3.579. 2.593 1979 Unknown [id number] 2.16.840.1.591539.3.579. 2.593 1979 Unknown [id number] 2.16.840.1.689415.3.579. 2.593 1979 Unknown [id number] 2.16.840.1.414293.3.579. 2.593 1979 Unknown [id number] 2.16.840.1.262461.3.579. 2.593 1979 Unknown [id number] 2.16.840.1.062931.3.579. 2.593 1979 Unknown [id number] 2.16.840.1.677536.3.579. 2.593 1979 Unknown [id number] 2.16.840.1.764328.3.579. 2.593 1979 Unknown [id number] 2.16.840.1.979413.3.579. 2.593 1979 Unknown [id number] 2.16.840.1.362928.3.579. 2.593 1979 Unknown [id number] 2.16.840.1.648849.3.579. 2.593 1979 Unknown [id number] 2.16.840.1.956249.3.579. 2.593 1979 Unknown [id number] 2.16.840.1.223385.3.579. 2.593 1979 Unknown [id number] 2.16.840.1.396700.3.579. 2.593 1979 Unknown [id number] 2.16.840.1.914273.3.579. 2.593 1979 Unknown [id number] 2.16.840.1.596662.3.579. 2.593 1979 Unknown [id number] 2.16.840.1.271811.3.579. 2.593 1979 Unknown [id number] 2.16.840.1.802882.3.579. 2.593 1979 Unknown [id number] 2.16.840.1.893837.3.579. 2.593 1979 Unknown [id number] 2.16.840.1.374449.3.579. 2.593 1979 Unknown [id number] 2.16.840.1.140600.3.579. 2.593 1979 Unknown [id number] 2.16.840.1.594010.3.579. 2.593 1979 Unknown [id number] 2.16.840.1.378660.3.579. 2.593 1979 Unknown [id number] 2.16.840.1.101629.3.579. 2.593 1979 Unknown [id number] 2.16.840.1.330465.3.579. 2.593 1979 Unknown [id number] 2.16.840.1.347744.3.579. 2.593 1979 Unknown [id number] 2.16.840.1.223933.3.579. 2.593 1979 Unknown [id number] 2.16.840.1.118139.3.579. 2.593 1979 Unknown [id number] 2.16.840.1.336731.3.579. 2.593 1979 Unknown [id number] 2.16.840.1.537976.3.579. 2.593 1979 Unknown [id number] 2.16.840.1.520741.3.579. 2.1259 1979 Unknown [id number] 2.16.840.1.863054.3.579. 2.1259 1979 Unknown [id number] 2.16.840.1.316075.3.579. 2.1259 1979 Unknown [id number] 2.16.840.1.480262.3.579. 2.1258 1979 Unknown [id number] 2.16.840.1.047541.3.579. 2.1258 1979 Unknown [id number] 2.16.840.1.392674.3.579. 2.1258 1979 Unknown [id number] 2.16.840.1.155631.3.579. 2.1258 1979 Unknown [id number] 2.16.840.1.074824.3.579. 2.1258 1979 Unknown [id number] 2.16.840.1.148609.3.579. 2.9 1959 Unknown [id number] 2.16.840.1.230461.19 1959 Unknown [id number] 2.16.840.1.320259.19 Unknown [id number] 2.16.840.1.445980.3.579. 2.531 Unknown [id number] 2.16.840.1.705545.3.579. 2.531 Social History Date Type Detail Facility Unknown if ever smoked [facility] Start: 03-23-2023 End: 04-19-2024 Sex Assigned At [facility] Start: 12-21-2022 Tobacco smoking status [facility] Never smoked tobacco [facility] Start: 12-21-2022 Tobacco use and exposure Smokeless tobacco non-user [facility] Start: 05-18-2023 End: 04-27-2024 Alcohol intake Current drinker of alcohol (finding) [facility] Start: 03-23-2023 End: 05-18-2023 Alcohol intake [facility] Within the last year , have you been afraid of your partner or ex-partner? Patient refused [facility] Are you now , , , , never or living with a partner? Refused [facility] (I/We) worried whether (my/our) food would run out before (I/we) got money to buy more. DK or Refused [facility] Start: 1980 Sex Assigned At Not on file [facility] Start: 1980 Sex Assigned At Male F [facility] Start: 10-19-2023 Tobacco smoking status NHIS Ex-smoker (finding) [facility] Medical Equipment Procedure Code Equipment Code Equipment [...] 06-23-2023 Clinical Notes 05-10-2020 to 04-19-2024 Blossom Cody NP - 04/19/2024 10:00 AM ESTTelephone Encounter - [...] with type 2 diabetes mellitus (CMS/HCC) Comments: Pt sees endo. HgbA1c 01/31 7.4 (prior 9.7 in October). Enc yearly eye exam. Watch sweets, portions on carbs. Enc to to be as active as able. Endo did lab Jan 19 Urine micro, CMP, Lipid. 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, subsequent encounter ([facility]/HCC) Comments: Sees Dr Feldman and Oscar Dyslipidemia ([facility]) Comments: Lipids: Chol 126, Trig 219, HDL 25, LDL 69, ratio 5 per Endo lab in jan Hypertriglyceridemia (CMS/HCC) Comments: See above last 290 in Mar [...] valgus, unspecified laterality: Sees Podiatry Morbid obesity ([facility]/HCC): See above Vitamin B12 deficiency: 374 on recent lab in Jan Lipoprotein deficiency disorder F/U in July or August for recheck-hypertension/Diabetes, sooner if concerns documented in this encounter [facility] 02-28-2024 Telephone encount er Note Rx sent [facility] 02-28-2024 Miscellaneous Notes Formattin g of this note might be different from the original. Rx sent documented in this encounter [facility] 01-19-2024 History of Presen t illness [...] with type 2 diabetes mellitus (CMS/HCC) Comments: HgbA1c 9.7 in October. He sees Endo. Plans to do lab for them this week. He has Endo appt next week. Enc yearly eye exams. Enc to watch portions on carbs, avoid sweets. Try to be as active as able. Type 2 diabetes mellitus with neurological manifestation ([facility]) Essential hypertension: Controlled. Pt will verify what dose he has at home ie 30 or 40mg of Lisinopril. 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 Avoid sweets, more fruits and mainly non-starchy vegetables, lean protien, nuts and routine exercise. Amputation of toe, traumatic, left, sequela ([facility]) Vitamin B 12 deficiency Comments: Last Vit B12 351 Pt declined flu vaccine today, prefers to wait into later February, could stop back here or do at work or pharmacy. Does not plan to get any more covid vaccines. Enc to think about Prevnar 20. F/U in 3 months for Wellness, sooner if concerns. PVU documented in this encounter [facility] 12-30-2023 Telephone encount er Note Rx sent [facility] 12-30-2023 Miscellaneous Notes Formattin g of this note might be different from the original. Rx sent documented in this encounter [facility] 06-16-2023 History of Presen t illness [...] sugars ranging from 120-170's. Sees [place] in [place], next appt September 13 with them. Taking [...] so he doesn't have to go to [place]. I told him because his sugars are [...] DM care again. PVU Diabetic neuropathic arthropathy ([facility]) Comments: Hx of Type 2 diabetes mellitus with neurological manifestation ([facility]/HCC): See above 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, sequela ([facility]) Comments: Hx of Sees Dr Feldman. Now has left foot toe amputated. Per pt toe is healing Ulcer of foot due to type 2 diabetes mellitus (CMS/HCC): Hx of Poorly controlled diabetes mellitus ([facility]/HCC): Last HgbA1c 8.2 Type 2 diabetes mellitus with hyperglycemia, with long-term current use of insulin ([facility]): As above Vitamin B 12 deficiency Comments: Last WNL at 351 Hx of diabetic neuropathy: Hx of 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CMS/HCC): Hx of Morbid obesity ([facility]) Comments: Enc healthy diet, watch sweets carbs. 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 Feldman May, Cracked skin on feet (ICD-10 - R23.4) keep f/u with Dr. Feldman [facility] 08-28-2023 Evaluation note* Encounter Date Diagnosis [...] for Lispro/ozempic 0.5mg sent to [facility] in [place] 01/04/23 7. 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 Feldman today [facility] 05-30-2023 NotePROCEDURE: XR FOOT LT MIN [...] Electronically authenticated by: FRANCO FRANCES Date: 2022-10-06 14:13[facility]05-04-2023 Evaluation note* Encounter Date Diagnosis Assessment Notes Treatment Notes Treatment Clinical Notes September, Type 2 diabetes mellitus with hyperglycemia (ICD-10 - E11.65) [facility] [id number] NotePROCEDURE: XR FOOT LT MIN 3 VIEWS [...] Electronically authenticated by: FERN SOSA Date: 2022-08-24 12:46[facility]02-16-2023 Evaluation note* Encounter Date Diagnosis Assessment Notes Treatment Notes Treatment Clinical Notes Jun, Type 2 diabetes mellitus with hyperglycemia (ICD-10 - E11.65) 1. Uncontrolled, a Type 2 diabetes with A1c of 8.2% 2. Blood glucose levels above target. Discussed with pt restarting ozempic, he had s/e from higher dose ozempic 1mg and concern with cost works at [employer]. Pt agreeable to starting sample ozempic 0.5mg [...] issues. 6. Prescriptions: Syringes/ozempic/st eglatro sent to [facility] in [place] 06/25/22 7. 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 (ICD-10 - Z79.4) Jun, Vitamin B 12 deficiency (ICD-10 - E53.8) 12/28 vit b 12 423 at target Jun, BMI 50.0-59.9, adult (ICD-10 - Z68.43) [facility] 02-07-2023 NotePROCEDURE: XR ANKLE LT MIN [...] Electronically authenticated by: GISSEL RUBIO Date: 2022-06-16 16:33[facility]02-07-2023 NotePROCEDURE: XR ANKLE LT MIN 3 [...] Electronically authenticated by: GISSEL RUBIO Date: 2022-06-16 16:33[facility]08-30-2022 Evaluation note* Encounter Date Diagnosis Assessment [...] (hypertension) (ICD-10 - I10) on julissa Dec, FDC current use of insulin (ICD-10 - Z79.4) Dec, Vitamin B 12 deficiency (ICD-10 - E53.8) 12/28 vit b 12 423 at target Dec, BMI 45.0-49.9, adult (ICD-10 - Z68.42) 14 pound weight loss from last visit, continue with weight loss efforts [facility] 01-01-2021 History general Narrative - Reported* Type Description Date Medical History type II diabetes Medical History hypertension Medical History hyperlipidemia Medical History covid 05/2020 Surgical History Ulcer on left great toe X2 Surgical History Partial amputation Right great toe 01/2021 Surgical History All toes right foot amputated Hospitalization History Toe infection 2017 [facility] 01-01-2021 History general Narrative - Reported* Type Description Date Medical History type II diabetes Medical History hypertension Medical History hyperlipidemia Medical History covid 05/2020 Surgical History Ulcer on left great toe X2 Surgical History Partial amputation Right great toe 01/2021 Surgical History All toes right foot amputated Surgical History Left great toe corre ctive surgery with Dr. Feldman in [place] 10/2022 Hospitalization History Toe infection 2017 [facility] complaint+Reason for visit Narrative* Chief Complaint no meter Reason for Visit BMI 50.0-59.9, adult Dietary counseling and surveillance Hypertension Mixed hyperlipidemia Type 2 diabetes mellitus with hyperglycemia [facility] Work Phone: Chior complaint+Reason for visit Narrative* Chief Complaint meter Reason for Visit BMI 50.0-59.9, adult Dietary counseling and surveillance Hypertension Mixed hyperlipidemia Type 2 diabetes mellitus with hyperglycemia Wound of left foot Wound of right foot [facility] Work Phone: Evaluation noteNo InformationNortDan[facility] [employer] Other Evaluation note* Diagnosis Diabetic polyneuropathy associated [...] neuropathy, with long-term current use of insulin ([facility]) FDC (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 (Z79.4) Acquired absence of other toe(s), unspecified side (Z89.429) Type 2 diabetes mellitus with diabetic neuropathy, with long-term current use of insulin ([facility]) Body mass index [BMI] 50.0-59.9, adult (Z68.43) Type 2 diabetes mellitus with foot ulcer, with long-term current use of insulin ([facility]) 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.49) Status post amputation of lesser toe, unspecified laterality ([facility]) Arthritis of left foot Acquired hallux valgus of left foot Type 2 diabetes mellitus with hyperglycemia, with long-term current use of insulin ([facility]) Morbid obesity ([facility]) Morbid obesity documented in this encounter [facility] HealthcareEvaluation noteNo assessment information availableVeterans Health Administration Work Phone: Evaluation note* Diagnosis Onset Date Resolution Status BMI 50.0-59.9, adult acute Dietary counseling and surveillance acute Hypertension acute Mixed hyperlipidemia acute Type 2 diabetes mellitus with hyperglycemia acute [facility] Work Phone: Evaluation note* Diagnosis Onset Date Resolution Status BMI 50.0-59.9, adult acute Dietary counseling and surveillance acute Hypertension acute Mixed hyperlipidemia acute Type 2 diabetes mellitus with hyperglycemia acute Wound of left foot acute Wound of right foot acute [facility] Work Phone: Evaluation note* Diagnosis Pure hyperglyceridemia ([facility]) Pure hyperglyceridemia documented in this encounter [facility] HealthcareEvaluation note* Diagnosis Diabetic polyneuropathy associated with type 2 diabetes mellitus ([facility])- Primary Type 2 diabetes mellitus with neurological manifestation ([facility]) Essential hypertension Unspecified essential hypertension 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, subsequent encounter ([facility]) Type 2 diabetes mellitus with hyperglycemia, with long-term current use of insulin ([facility]) Dyslipidemia ([facility]) Other and unspecified hyperlipidemia Hypertriglyceridemia ([facility]) Pure hyperglyceridemia Vitamin B 12 deficiency Other B-complex deficiencies Pure hyperglyceridemia ([facility]) Pure hyperglyceridemia documented in this encounter [facility]* Diagnosis Diabetic polyneuropathy associated with type 2 diabetes mellitus ([facility])- Primary Wellness examination Type 2 diabetes mellitus with neurological manifestation ([facility]) Essential hypertension Unspecified essential hypertension 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, subsequent encounter ([facility]) Dyslipidemia ([facility]) Other and unspecified hyperlipidemia Hypertriglyceridemia ([facility]) Pure hyperglyceridemia Poorly controlled diabetes mellitus ([facility]) Type II or unspecified type diabetes mellitus without mention of complication, not stated as uncontrolled Type 2 diabetes mellitus with hyperglycemia, with long-term current use of insulin ([facility]) Diabetic autonomic neuropathy associated with type 2 diabetes mellitus ([facility]) Type II or unspecified type diabetes mellitus with neurological manifestations, not stated as uncontrolled Acquired hallux valgus, unspecified laterality Morbid obesity ([facility]) Morbid obesity Vitamin B 12 deficiency Other B-complex deficiencies 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[facility]) Lipoprotein deficiencies documented in this encounter [facility]* Diagnosis Essential hypertension Unspecified essential hypertension documented in this encounter [facility] Summary Purpose Family History No Family History Records Found Relationship Condition Age at Onset Recorded Date/T juan brother Diabetes mellitus Unknown father Malignant neoplasm Unknown Not Specified Diabetes mellitus Unknown Relationship Condition Age at Onset Recorded Date/T juan brother Diabetes mellitus Unknown father Malignant neoplasm Unknown mother Diabetes mellitus Unknown Advance Directives No Advanced [...] section and content) DATE CREATED AUTHOR 08/27/2021 [facility] Specialist DATE CREATED AUTHOR AUTHOR'S ORGANIZ ATION 10/17/2022 [facility] DATE CREATED AUTHOR AUTHOR'S ORGANIZ ATION 04/22/2024 [facility]ists EPIC DATE CREATED AUTHOR AUTHOR'S ORGANIZ ATION 04/29/2024 [facility] REASON FOR VISIT (unrecogniz ed section and [...] content) Team Status: Active Member Role Status Sarahi Hernandez MD Primary Care Provider Active Team Status: Active Member Role Status Sarahi Hernandez MD Primary Care Provider Active Start: January 20, 2024 Link Ortega APRN Attending Provider Active Start: January 20, 2024 Team Status: Inactive Member Role Status Sarahi Hernandez MD Primary Care Provider Active Start: January 26, 2024 End: January 26, 2024 Link Ortega APRN Attending Provider Active Start: January 26, 2024 End: January 26, 2024 Coupling 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 Relationship Specialty Start Date End Date Natalie Hernandez MD [address] [place] [address] PCP - General Family Medicine 09/15/22 Coupling 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 Relationship Specialty Start Date End Date Natalie Hernandez MD [address] [place] [address] PCP - General Family Medicine 09/15/22 Team Status: Inactive Member Role Status Sarahi Ortega APRN Attending Provider Active Start: June 09, 2023 End: June 09, 2023 Team Status: Inactive Member Role Status Dates Damon Claros MD Attending Provider Active Start: June 09, 2023 End: June 09, 2023 Natalie Hernandez MD Primary Care Provider Active Start: June 09, 2023 End: June 09, 2023 Team Status: Inactive Member Role Status Sarahi Hernandez MD Primary Care Provider Active Start: October 19, 2023 End: October 19, 2023 Link Ortega APRN Attending Provider Active Start: October 19, 2023 End: October 19, 2023 Coupling 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 Relationship Specialty Start Date End Date Natalie Hernandez MD [address] [place] [address] PCP - General Family Medicine 09/15/22 Blossom Cody NP [address] [place] [facility] [place] [address] Nurse Practitioner Family Medicine 01/19/24 Coupling 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 Relationship Specialty Start Date End Date Natalie Hernandez MD [address] [place] [address] PCP - General Family Medicine 09/15/22 Blossom Cody NP [address] [facility] [place] [address] Nurse Practitioner Family Medicine 01/19/24 Coupling 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 Relationship Specialty Start Date End Date Natalie Hernandez MD [address] [facility] [place] [address] PCP - General Family Medicine 09/15/22 Blossom Cody NP [address] [facility] [place] [address] Nurse Practitioner Family Medicine 01/19/24 Coupling 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 Relationship Specialty Start Date End Date Natalie Hernandez MD [address] [facility] [place] [address] PCP - General Family Medicine 09/15/22 Blossom Cody NP [address] [facility] [place] [address] Nurse Practitioner Family Medicine 01/19/24 Coupling 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 Relationship Specialty Start Date End Date Natalie Hernandez MD [address] [facility] [place] [address] PCP - General Family Medicine 09/15/22 Coupling 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 Relationship Specialty Start Date End Date Natalie Hernandez MD [address] [place] [address] PCP - General Family Medicine 09/15/22 Coupling 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 Relationship Specialty Start Date End Date Natalie Hernandez MD [address] [place] [address] PCP - General Family Medicine 09/15/22 Blossom Cody NP [address] [facility] [place] [address] Nurse Practitioner Family Medicine 01/19/24 Coupling 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 Relationship Specialty Start Date End Date Natalie Hernandez MD [address] [place] [address] PCP - General Family Medicine 09/15/22 Blossom Cody NP [address] [place] [address] Nurse Practitioner Family Medicine 01/19/24 Goals (unrecognized section and content) Goals [...] BE BASED ON THE PRIMARY CLINICAL RECORDS. [employer] [facility]. provides no warranty or guarantee of the accuracy or completeness of information in this document.
== END 2024-05-02 19:23 | DRG 623 ==
LOC: ER 13:36 → MS 04-26 07:57
PROVIDERS: Anesthesiology; Family Medicine; Internal Medicine; Podiatrist Foot & Ankle Surgery; Admitting Provider Family Medicine; Emergency Provider Emergency Medicine; PCP Family Medicine; Visit Provider Family Medicine
PROC: 0JBQ0ZZ Excision of Right Foot Subcutaneous Tissue and Fascia, Open Approach (ICD-10-PCS; principal; 2024-04-26 08:10)
PROC: 0JCQ0ZZ Extirpation of Matter from Right Foot Subcutaneous Tissue and Fascia, Open Approach (ICD-10-PCS; principal; 2024-04-28 12:05)
DX: E11.621 Type 2 diabetes mellitus with foot ulcer (principal); E11.628 Type 2 diabetes mellitus with other skin complications; L02.611 Cutaneous abscess of right foot; L03.115 Cellulitis of right lower limb; L97.414 Non-pressure chronic ulcer of right heel and midfoot with necrosis of bone; R78.81 Bacteremia; Z68.43 Body mass index [BMI] 50.0-59.9, adult; N17.9 Acute kidney failure, unspecified; B95.5 Unspecified streptococcus as the cause of diseases classified elsewhere; D64.9 Anemia, unspecified; E11.22 Type 2 diabetes mellitus with diabetic chronic kidney disease; E11.40 Type 2 diabetes mellitus with diabetic neuropathy, unspecified; E66.01 Morbid (severe) obesity due to excess calories; E78.00 Pure hypercholesterolemia, unspecified; I12.9 Hypertensive chronic kidney disease with stage 1 through stage 4 chronic kidney disease, or unspecified chronic kidney disease; N18.9 Chronic kidney disease, unspecified; Z79.4 Long term (current) use of insulin; Z79.84 Long term (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 oral hypoglycemic drugs; Z79.82 Long term (current) use of aspirin; Z79.899 Other long term (current) drug therapy; Z89.422 Acquired absence of other left toe(s); Z87.891 Personal history of nicotine dependence; Z86.16 Personal history of COVID-19
CPT/HCPCS: 36415; 73630; 80048; 80053; 80202; 82607; 82728; 82746; 82948; 83540; 83550; 83605; 84466; 85007; 85025; 85027; 85610; 85652; 85730; 86140; 87040; 87070; 87075; 87102; 87116; 87150; 87205; 87206; 88304; 96365; 96368; 97116; 97161; 97165; 97530; 97535; 99285; 99999; C1713; J1100; J1885; J2250; J2371; J2405; J2543; J2704; J3010; J3370; Q0177

== ENCOUNTER 2024-04-25 16:39 | Outpatient (REF) | payer OTHER, SELFPAY ==
--- OUTSIDE RECORDS SUMMARY | 2024-04-25 16:51 | XMS_ITS | CCD ---
Author Organization [facility] Care Team Providers Care Sports Team Marketing Intern Name Role Phone Link Ortega Unavailable NATANAEL [...] Damon Claros Attending Provider MD Natalie Hernandez [facility] Provider [place], [facility] Unavailable Damon Claros Attending Unavailable Damon Claros Admitting Unavailable WonderNatalie ruiz MD Primary [facility] Provider Blossom Cody NP Unavailable BLOSSOM CODY [...] take 2 tablets by mouth in the [facility] [facility] metFORMIN (Glucophage) 500 MG tablet Take 2 [...] 06-09-2023 HbA1c (Bld) [Mass fraction] 8.2 % [employer] Other Glucose - FINGER STICKon Glucose [Mass/Vol] 170 mg/dL [employer] Other HbA1c (Bld) [Mass fraction]o n 06-09-2023 A1C HEMOGLOBIN [employer] Other A1C HEMOGLOBINon 01-04-2023 HbA1c (Bld) [Mass fraction] 8.9 % [employer] Other Glucose - FINGER STICKon Glucose [Mass/Vol] 201 mg/dL [employer] Other HbA1c (Bld) [Mass fraction]o n 01-04-2023 A1C HEMOGLOBIN [employer] Other PROF CHEM 8 (BAS METB)on Anion gap [Moles/Vol] 14.3 mmol/L Normal [facility] Comment on above: Performed By: #### B MP #### [facility] [address] [address] [address] Lauri Todd Calcium [Mass/Vol] 9.4 mg/dL Normal 8.5-10.1 [facility] Comment on above: Performed By: #### B MP #### [facility] [address] [address] [address] Lauri Todd Chloride [Moles/Vol] 101 mmol/L Normal 98-107 [facility] Comment on above: Performed By: #### B MP #### [facility] [address] [address] [address] Lauri Todd CO2 [Moles/Vol] 26.2 mmol/L Normal 21.0-32.0 [facility] Comment on above: Performed By: #### B MP #### [facility] [address] [address] [address] Lauri Todd Creatinine [Mass/Vol] 0.90 mg/dL Normal 0.70-1.30 [facility] Comment on above: Performed By: #### B MP #### [facility] [address] [address] [address] Lauri Todd EGFR-AF SLOVAK >60 Normal >=60 [facility] Comment on above: Performed By: #### B MP #### [facility] [address] [address] [address] Lauri Todd EGFR-NON AF SLOVAK >60 Normal >=60 [facility] Comment on above: Performed By: #### B MP #### [facility] [address] [place] [address] Dr. Lauri Todd Glucose [Mass/Vol] 146 mg/dL Critically high 74-106 [facility] Comment on above: Performed By: #### B MP #### [facility] [address] [place] [address] Dr. Lauri Todd Potassium [Moles/Vol] 4.5 mmol/L Normal 3.5-5.1 [facility] Comment on above: Performed By: #### B MP #### [facility] [address] [place] [address] Dr. Lauri Todd Sodium [Moles/Vol] 137 mmol/L Normal 136-145 [facility] Comment on above: Performed By: #### B MP #### [facility] [address] [address] [address] Lauri Todd Urea nitrogen [Mass/Vol] 16.0 mg/dL Normal 7.0-18.0 [facility] Comment on above: Performed By: #### B MP #### [facility] [address] [place] [address] Dr. Lauri Todd Urea nitrogen/Creatinin e [Mass ratio] 17.8 mg/mg Normal [facility] Comment on above: Performed By: #### B MP #### [facility] [address] [address] [address] Lauri Todd A1C HEMOGLOBINon 06-25-2022 HbA1c (Bld) [Mass fraction] 8.2 % [employer] Other Glucose - FINGER STICKon Glucose [Mass/Vol] 180 mg/dL [employer] Other HbA1c (Bld) [Mass fraction]o n 06-25-2022 A1C HEMOGLOBIN [employer] Other XR FOOT LT MIN 3 VIEWSon [...] by: RAFAEL WHITAKER Date: 2022-05-25 11:52 Normal [facility] A1C HEMOGLOBINon 01-06-2022 HbA1c (Bld) [Mass fraction] 7 % [employer] Other Glucose - FINGER STICKon Glucose [Mass/Vol] 148 mg/dL [employer] Other HbA1c (Bld) [Mass fraction]o n 01-06-2022 A1C HEMOGLOBIN [employer] Other Basic Metabolic Panelon 04- Anion gap [Moles/Vol] 20 mmol/L Normal 12-20 [facility] [employer] Comment on above: Result Comment: Effe ctive 05/15/2019 reference range changed. Performed By: #### B MP #### [facility] [address] [place], [place] [id number] Calcium [Mass/Vol] 10.0 mg/dL Normal 8.6-10.2 [facility] Specialist Comment on above: Performed By: #### B MP #### [facility] [address] [place], [place] [id number] Chloride [Moles/Vol] 100 mmol/L Normal 98-107 [facility] Comment on above: Performed By: #### B MP #### [facility] [address] [place], [place] [id number] CO2 [Moles/Vol] 22 mmol/L Normal 20-31 [facility] Specialist Comment on above: Performed By: #### B MP #### [facility] [address] [place], [place] [id number] Creatinine [Mass/Vol] 0.8 mg/dL Normal 0.7-1.4 [facility] Specialist Comment on above: Performed By: #### B MP #### [facility] [address] [place], [place] [id number] eGFRAA 129 mL/min/1.73m2 Normal >60 [facility] Comment on above: Performed By: #### B MP #### [facility] [address] [place], [place] [id number] eGFRNAA 107 mL/min/1.73m2 Normal >60 [facility] Comment on above: Performed By: #### B MP #### [facility] [address] [place], [place] [id number] Glucose [Mass/Vol] 140 mg/dL High 65-99 [facility] Specialist Comment on above: Result Comment: For FASTING Glucose --- ADA reference ranges: Normal 65-99 mg/dl Prediabetes 100-125 Diabetes >/= 126 Performed By: #### B MP #### [facility] [address] [place], [place] [id number] Potassium [Moles/Vol] 4.3 mmol/L Normal 3.5-5.5 [facility] Specialist Comment on above: Performed By: #### B MP #### [facility] [address] [place], [place] [id number] Sodium [Moles/Vol] 137 mmol/L Normal 135-146 [facility] [place] [place] [employer] Comment on above: Performed By: #### B MP #### [facility] [address] [place], [place] [id number] Urea nitrogen [Mass/Vol] 17 mg/dL Normal 7-25 [facility] [employer] Comment on above: Performed By: #### B MP #### [facility] [address] [place], [place] [id number] Vital Signs Date Time Vital Sign Value Performing Clinician Facility 04-19-2024 09:47-0500 Body mass index (BMI) [Ratio] 52.21 kg/m2 Blossom Cody PATIENT MONITOR Work Phone: [facility] 04-19-2024 09:47-0500 Body weight 172.19 kg Blossom Cody PATIENT MONITOR Work Phone: [facility] 04-19-2024 09:47-0500 Diastolic blood pressure 72 mm[Hg] Blossom Cody PATIENT MONITOR Work Phone: [facility] 04-19-2024 09:47-0500 Heart rate 84 /min Blossom Cody PATIENT MONITOR Work Phone: [facility] 04-19-2024 09:47-0500 Systolic blood pressure 128 mm[Hg] Blossom Cody PATIENT MONITOR Work Phone: [facility] 01-26-2024 09:59-0400 Body height 182.88 cm [facility] 01-26-2024 09:59-0400 Body mass index (BMI) [Ratio] 51.2 kg/m2 [facility] 01-26-2024 09:59-0400 Body weight 171.54 kg [facility] 01-26-2024 09:59-0400 Diastolic blood pressure 83 mm[Hg] [facility] 01-26-2024 09:59-0400 Heart rate 81 /min [facility] 01-26-2024 09:59-0400 Respiratory rate 18 /min [facility] 01-26-2024 09:59-0400 SaO2% (BldA) [Mass fraction] 94 % [facility] 01-26-2024 09:59-0400 Systolic blood pressure 155 mm[Hg] [facility] 01-19-2024 11:00-0400 Body mass index (BMI) [Ratio] 51.82 kg/m2 Blossom Cody PATIENT MONITOR Work Phone: [facility] 01-19-2024 11:00-0400 Body weight 170.91 kg Blossom Lozoyael PATIENT MONITOR Work Phone: [facility] 01-19-2024 11:00-0400 Diastolic blood pressure 78 mm[Hg] Blossom Lozoyael PATIENT MONITOR Work Phone: [facility] 01-19-2024 11:00-0400 Heart rate 84 /min Blossom Lozoyael PATIENT MONITOR Work Phone: [facility] 01-19-2024 11:00-0400 Systolic blood pressure 136 mm[Hg] Blossom Lozoyael PATIENT MONITOR Work Phone: [facility] 10-19-2023 11:31-0400 Body height 182.88 cm [facility] 10-19-2023 11:31-0400 Body mass index (BMI) [Ratio] 51.7 kg/m2 [facility] 10-19-2023 11:31-0400 Body weight 172.87 kg [facility] 10-19-2023 11:31-0400 Diastolic blood pressure 83 mm[Hg] [facility] 10-19-2023 11:31-0400 Heart rate 74 /min [facility] 10-19-2023 11:31-0400 Respiratory rate 18 /min [facility] 10-19-2023 11:31-0400 SaO2% (BldA) [Mass fraction] 97 % [facility] 10-19-2023 11:31-0400 Systolic blood pressure 149 mm[Hg] [facility] 06-16-2023 11:33-0500 Diastolic blood pressure 84 mm[Hg] Blossom Glo PATIENT MONITOR Work Phone: [facility] 06-16-2023 11:33-0500 Systolic blood pressure 154 mm[Hg] Blossom Cody PATIENT MONITOR Work Phone: [facility] 06-16-2023 11:02-0500 Body mass index (BMI) [Ratio] 52.12 kg/m2 Blossom Cody PATIENT MONITOR Work Phone: [facility] 06-16-2023 11:02-0500 Body weight 171.91 kg Blossom Cody PATIENT MONITOR Work Phone: [facility] 06-16-2023 11:02-0500 Heart rate 92 /min Blossom Cody PATIENT MONITOR Work Phone: [facility] 06-09-2023 08:45-0500 Body height Tondra Mapus Other [facility] [employer] Other 06-09-2023 08:45-0500 Body height 182.88 cm MD Natalie Hernandez Work Phone: [facility] 06-09-2023 08:45-0500 Body mass index (BMI) [Ratio] 51.33 kg/m2 Tondra Mapus Other [facility] [employer] Other 06-09-2023 08:45-0500 Body weight 171.69 kg Tondra Mapus Other [facility] [employer] Other 06-09-2023 08:45-0500 Body weight 171.68 kg MD Natalie Hernandez Work Phone: [facility] 06-09-2023 08:45-0500 Diastolic blood pressure 80 mm[Hg] Tondra Mapus Other [facility] 06-09-2023 08:45-0500 Respiratory rate 18 /min Tondra Mapus Other [facility] [employer] Other 06-09-2023 08:45-0500 SaO2% (BldA) [Mass fraction] 94 % Tondra Mapus Other [employer] Other 06-09-2023 08:45-0500 Systolic blood pressure 148 mm[Hg] Tondra Mapus Other [facility] 01-04-2023 08:45-0400 Body height Tondra Mapus Other [employer] Other 01-04-2023 08:45-0400 Body mass index (BMI) [Ratio] 51.37 kg/m2 Tondra Mapus Other [employer] Other 01-04-2023 08:45-0400 Body weight 171.82 kg Tondra Mapus Other [employer] Other 01-04-2023 08:45-0400 Diastolic blood pressure 85 mm[Hg] Tondra Mapus Other [employer] Other 01-04-2023 08:45-0400 Respiratory rate 18 /min Tondra Mapus Other [employer] Other 01-04-2023 08:45-0400 SaO2% (BldA) [Mass fraction] 98 % Tondra Mapus Other [employer] Other 01-04-2023 08:45-0400 Systolic blood pressure 150 mm[Hg] Tondra Mapus Other [employer] Other 06-25-2022 09:45-0500 Body height Tondra Mapus Other [employer] Other 06-25-2022 09:45-0500 Body mass index (BMI) [Ratio] 51.14 kg/m2 Tondra Mapus Other [employer] Other 06-25-2022 09:45-0500 Body weight 171.05 kg Tondra Mapus Other [employer] Other 06-25-2022 09:45-0500 Diastolic blood pressure 80 mm[Hg] Tondra Mapus Other [employer] Other 06-25-2022 09:45-0500 Respiratory rate 18 /min Tondra Mapus Other [employer] Other 06-25-2022 09:45-0500 SaO2% (BldA) [Mass fraction] 95 % Tondra Mapus Other [employer] Other 06-25-2022 09:45-0500 Systolic blood pressure 139 mm[Hg] Tondra Mapus Other [employer] Other 01-06-2022 09:45-0400 Body height Tondra Mapus Other [employer] Other 01-06-2022 09:45-0400 Body mass index (BMI) [Ratio] 48.28 kg/m2 Tondra Mapus Other [employer] Other 01-06-2022 09:45-0400 Body weight 161.48 kg Tondra Mapus Other [employer] Other 01-06-2022 09:45-0400 Diastolic blood pressure 71 mm[Hg] Tondra Mapus Other [employer] Other 01-06-2022 09:45-0400 Respiratory rate 20 /min Tondra Mapus Other [employer] Other 01-06-2022 09:45-0400 SaO2% (BldA) [Mass fraction] 95 % Link Ortega Other [employer] Other 01-06-2022 09:45-0400 Systolic blood pressure 124 mm[Hg] Link Ortega Other [employer] Other Encounters Encounter Date Encounter Type Care Provider Facility Start: 04-19-2024 End: 04-19-2024 [employer] Blossom Cody PATIENT MONITOR Work Phone: [facility] Start: 04-19-2024 End: 04-19-2024 [employer] Blossom Cody PATIENT MONITOR Work Phone: [facility] Start: 04-19-2024 End: 04-19-2024 Patient encounter status Blossom Cody PATIENT MONITOR Work Phone: [facility] Start: 04-19-2024 End: 04-19-2024 Periodic preventive med est patient 40-64yrs Blossom Cody PATIENT MONITOR Work Phone: [facility] Comment on above: Diabetic polyneuropa thy associated with type 2 diabetes mellitus ([facility]) (Primary Dx); Wellness examination; Type 2 diabetes mellitus with neurological manifestation ([facility]); Essential hypertension; 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, subsequent encounter ([facility]); Dyslipidemia ([facility]); Hypertriglyceridemia ([facility]); Poorly controlled diabetes mellitus ([facility]); Type 2 diabetes mellitus with hyperglycemia, with long-term current use of insulin ([facility]); Amputation of toe, traumatic, left, sequela ([facility]); Essential hypertension; Diabetic autonomic neuropathy associated with type 2 diabetes mellitus ([facility]); Acquired hallux valgus, unspecified laterality; Morbid obesity ([facility]); Vitamin B 12 deficiency; 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[facility]/H[facility]) Start: 04-19-2024 End: 04-19-2024 ambulatory BLOSSOM CODY Not Available Start: 02-28-2024 End: 02-28-2024 Lenard Hernandez MD Work Phone: [facility] Comment on above: Pure hyperglyceridem ia (CMS/HCC) Start: 01-26-2024 End: 01-26-2024 ambulatory [facility] Work Phone: Start: 01-26-2024 End: 01-26-2024 [facility]: Start: 01-20-2024 Non-patient / Non-visit [facility] Work Phone: Start: 01-19-2024 End: 01-19-2024 Office outpatient visit 25 minutes Blossom Cody PATIENT MONITOR Work Phone: [facility] Comment on above: Diabetic polyneuropa thy associated with type 2 diabetes mellitus ([facility]) (Primary Dx); Type 2 diabetes mellitus with neurological manifestation ([facility]); Essential hypertension; 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, subsequent encounter ([facility]); Type 2 diabetes mellitus with hyperglycemia, with long-term current use of insulin ([facility]); Dyslipidemia ([facility]); Hypertriglyceridemia ([facility]); Amputation of toe, traumatic, left, sequela ([facility]); Vitamin B 12 deficiency; Pure hyperglyceridemia ([facility]) Start: 01-19-2024 End: 01-19-2024 ambulatory BLOSSOM CODY Not Available Start: 10-29-2023 End: 10-29-2023 ambulatory MIRLANDE MOORE Not Available Start: 10-19-2023 End: 10-19-2023 ambulatory [facility] Work Phone: Start: 10-19-2023 End: 10-19-2023 Patient encounter procedure [facility] Work Phone: Start: 10-12-2023 End: 10-12-2023 ambulatory MIRLANDE MOORE Not Available Start: 09-15-2023 End: 09-15-2023 ambulatory BLOSSOM CODY Not Available Start: 09-06-2023 End: 09-06-2023 ambulatory MIRLANDE MOORE Not Available Start: 08-02-2023 End: 08-02-2023 ambulatory MIRLANDE MOORE Not Available Start: 07-07-2023 End: 07-07-2023 ambulatory BLOSSOM Kong GLO Not Available Start: 06-16-2023 Bamboo flowsheet Blossom cabrales PATIENT MONITOR Work Phone: [facility] Start: 06-16-2023 Bamboo flowsheet Blossom cabrales PATIENT MONITOR Work Phone: [facility] Start: 06-16-2023 End: 06-16-2023 Office outpatient visit 25 minutes Blossom Cody PATIENT MONITOR Work Phone: [facility] Comment on above: Diabetic polyneuropa thy associated with type 2 diabetes mellitus ([facility]) (Primary Dx); Diabetic neuropathic arthropathy ([facility]); Type 2 diabetes mellitus with neurological manifestation ([facility]); 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, sequela ([facility]); Ulcer of foot due to type 2 diabetes mellitus ([facility]); Vitamin B 12 deficiency; Hx of diabetic [...] neuropathy, with long-term current use of insulin ([facility]); Body mass index [BMI] 50.0-59.9, adult (Z68.43); Type 2 diabetes mellitus with foot ulcer, with long-term current use of insulin ([facility]); 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.49); Status post amputation of lesser toe, unspecified laterality ([facility]); Arthritis of left foot; Acquired hallux valgus of left foot; Type 2 diabetes mellitus with hyperglycemia, with long-term current use of insulin ([facility]); Morbid obesity ([facility]) Start: 06-16-2023 End: 06-16-2023 ambulatory BLOSSOMNETO CODY Not Available Start: 06-15-2023 End: 06-15-2023 ambulatory Tondra Mapus Other [employer] Other Start: 06-15-2023 Telephone encounter Tondra Mapus [facility] Start: 06-09-2023 (DM) Diabetes Tondra [facility] Start: 06-09-2023 End: 06-10-2023 ambulatory MD Natalie Diggs Phone: [employer] Other Start: 06-09-2023 End: 06-09-2023 Discharged Recurring MD [facility] Work Phone: Start: 06-09-2023 End: 06-09-2023 Patient encounter procedure MD Natalie Diggs Phone: [facility]- Start: 01-04-2023 (DM) Diabetes Tondra [facility] Start: 01-04-2023 End: 01-04-2023 ambulatory Tondra Mapus Other [employer] Other Start: 12-21-2022 End: 12-21-2022 ambulatory Tondra Mapus Other [employer] Other Start: 12-21-2022 Telephone encounter Tondra Mapus [facility] Start: 10-12-2022 ambulatory NATANAEL FELDMAN Faci lity:H1 Start: 10-06-2022 End: 10-07-2022 ambulatory NATANAEL FELDMAN Facility:[facility]1 Start: 10-01-2022 Encounter for [facility]pro [facility]edural [facility] Start: 10-01-2022 Encounter for prepro cedural laboratory examination NATANAEL Marks [facility] Start: 09-30-2022 End: 10-01-2022 ambulatory NATANAEL Marks [facility] Facility:[facility]1 Start: 09-30-2022 End: 10-01-2022 Encounter for preprocedural laboratory examination NATANAEL Marks [facility] Facility:H1 Start: 09-15-2022 End: 09-16-2022 ambulatory NATANAEL Selina [facility] Facility:H1 Start: 09-10-2022 End: 09-10-2022 ambulatory Tondra Mapus Other [employer] Other Start: 09-10-2022 Telephone encounter Tondra Mapus [facility] Start: 08-24-2022 End: 08-25-2022 ambulatory NATANAEL Marks [facility] Facility:H1 Start: 08-10-2022 End: 08-10-2022 ambulatory Tondra Mapus Other [employer] Other Start: 08-10-2022 Telephone encounter Tondra Mapus [facility] Start: 08-03-2022 End: 08-04-[address] NATALIE HERNANDEZ Facility:H1 Start: 07-13-2022 End: 07-14-2022 ambulatory MARTELLSARA NAVAS Facility:H1 Start: 06-30-2022 End: 07-01-2022 ambulatory NATANAEL Selina [facility] Facility:H1 Start: 06-25-2022 (DM) Diabetes Tondra Mapus [facility] Start: 06-25-2022 End: 06-25-2022 ambulatory Tondra Mapus Other [employer] Other Start: 06-16-2022 End: 06-17-2022 ambulatory NATANAEL Selina [facility] Facility:H1 Start: 06-08-2022 End: 06-09-2022 ambulatory NATANAEL Marks [facility] Facility:H1 Start: 05-25-2022 End: 05-26-2022 ambulatory NATANAEL [...] 02-18-2022 End: 02-18-2022 ambulatory Tondra Mapus Other [employer] Other Start: 02-18-2022 Telephone encounter Tona Shannon [facility] Start: 02-09-2022 End: 02-10-2022 ambulatory NATANAEL FELDMAN Facility:H1 Start: 01-26-2022 End: 01-27-2022 ambulatory NATANAEL FELDMAN Facility:H1 Start: 01-13-2022 End: 01-14-2022 ambulatory NATANAEL Marks [facility] Facility:H1 Start: 01-06-2022 (DM) Diabetes Tondra Shannon [facility] Start: 01-06-2022 End: 01-06-2022 ambulatory Tondra Mapus Other [employer] Other Start: 12-29-2021 End: 12-30-2021 ambulatory NATANAEL [...] post amputation of lesser toe, unspecified laterality ([facility]) Blossom Cody PATIENT MONITOR Work Phone: Plan of Treatment Date Care Activity Detail Author Start: 07-26-2025 Glaucoma screening Diabetes: Retinopathy Screening [facility] Start: 07-19-2024 End: 07-19-2024 Patient encounter procedure 07/19/2024 9:30 AM EDT Office Visit [facility] [address] [place] [address] Blossom Cody NP [address] [place], [place] [id number] [facility] Start: 04-26-2024 Hemoglobin A1c measurement Diabetes: Hemoglobin A1C [facility] Start: 04-19-2024 End: 04-19-2024 Patient encounter procedure [facility] Comment on above: Diabetic polyneuropathy associated with type 2 diabetes mellitus ([facility]) (Primary Dx); Wellness examination; Type 2 diabetes mellitus with neurological manifestation ([facility]); Essential hypertension; 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, subsequent encounter ([facility]); Dyslipidemia ([facility]); Hypertriglyceridemia ([facility]); Poorly controlled diabetes mellitus ([facility]); Type 2 diabetes mellitus with hyperglycemia, with long-term current use of insulin ([facility]); Amputation of toe, traumatic, left, sequela ([facility]) Start: 03-24-2024 Urine screening for protein Diabetes: Urine Protein Screening [facility] Start: 03-15-2024 Influenza vaccination Influenza Vaccine (#1) [facility] Comment on above: Postponed from 01/09/2024 (Patient Refus ed) Start: 01-19-2024 Hemoglobin A1c measurement Diabetes: Hemoglobin A1C [facility] Start: 01-09-2024 Influenza vaccination Influenza Vaccine (#1) [facility] Start: 09-15-2023 End: 09-15-2023 Patient encounter procedure 09/15/2023 9:30 AM EDT Office Visit [facility] [address] [place] [id number] Blossom Cody NP [address] [place], [place] [id number] [facility] Start: 09-07-2023 Hemoglobin A1c measurement Diabetes: Hemoglobin A1C [facility] Start: 07-26-2023 Glaucoma screening Diabetes: Retinopathy Screening [facility] Start: 07-07-2023 End: 07-07-2023 Patient encounter procedure 07/07/2023 9:00 AM EST Office Visit [facility] [address] [place] [address] [facility] Start: 06-16-2023 End: 06-16-2023 Patient encounter procedure 06/16/2023 11:00 AM EST Office Visit [facility] [address] [place] [address] Blossom Cody NP [address] [place], [place] [id number] Diabetic polyneuropathy associated with type 2 diabetes [...] disorder (CMS/HCC); Morbid obesity (CMS/HCC); Hypertriglyceridemia (CMS/HCC) [facility] Comment on above: Diabetic polyneuropathy associated [...] lic 2000 panel - Serum or Plasma [facility] Patient Education Diabetes and diet [facility] Work Phone: [facility] Immunizations Immunization Date Immunization Notes Care Provider Fa cility 03-14-2024 influenza, seasonal, injectable, preservative free Blossom Cody NP Work Phone: [facility] 03-14-2024 influenza virus vacc ine, unspecified formulation Blossom Glo PATIENT MONITOR Work Phone: [facility] 07-05-2023 tetanus and diphther ia toxoids, adsorbed, preservative free, for adult use (2 Lf of tetanus toxoid and 2 Lf of diphtheria toxoid) Blossom Glo PATIENT MONITOR Work Phone: [facility] 03-24-2023 influenza, injectabl e, quadrivalent, preservative free Blossom Glo PATIENT MONITOR Work Phone: [facility] 03-24-2023 influenza virus vacc ine, unspecified formulation Blossom Glo PATIENT MONITOR Work Phone: [facility] 08-26-2021 tetanus and diphther ia toxoids, adsorbed, preservative free, for adult use (5 Lf of tetanus toxoid and 2 Lf of diphtheria toxoid) Blossom Glo PATIENT MONITOR Work Phone: [facility] 03-28-2021 influenza, injectabl e, quadrivalent, preservative free Blossom Glo PATIENT MONITOR Work Phone: [facility] 02-13-2020 Influenza, injectabl e, Madin Nel Canine Kidney, preservative free, quadrivalent Blossom Glo PATIENT MONITOR Work Phone: [facility] 02-22-2019 influenza, injectabl e, quadrivalent, preservative free Blossom Glo PATIENT MONITOR Work Phone: [facility] 02-07-2018 influenza, injectabl e, quadrivalent, preservative free Blossom Glo PATIENT MONITOR Work Phone: [facility] Payers Date Payer Category Payer Private Health Insurance [facility] [id number] 2022 Unknown [id number] 2020 Self-pay [id number] 1979 Unknown [id number] 2.16.840.1.400868.3.579. 2.593 1979 Unknown [id number] 2.16.840.1.337486.3.579. 2.593 1979 Unknown [id number] 2.16.840.1.829933.3.579. 2.593 1979 Unknown [id number] 2.16.840.1.063703.3.579. 2.593 1979 Unknown [id number] 2.16.840.1.941567.3.579. 2.593 1979 Unknown [id number] 2.16.840.1.175869.3.579. 2.593 1979 Unknown [id number] 2.16.840.1.094615.3.579. 2.593 1979 Unknown [id number] 2.16.840.1.236163.3.579. 2.593 1979 Unknown [id number] 2.16.840.1.795034.3.579. 2.593 1979 Unknown [id number] 2.16.840.1.411015.3.579. 2.593 1979 Unknown [id number] 2.16.840.1.485445.3.579. 2.593 1979 Unknown [id number] 2.16.840.1.486204.3.579. 2.593 1979 Unknown [id number] 2.16.840.1.746112.3.579. 2.593 1979 Unknown [id number] 2.16.840.1.175965.3.579. 2.593 1979 Unknown [id number] 2.16.840.1.352845.3.579. 2.593 1979 Unknown [id number] 2.16.840.1.665763.3.579. 2.593 1979 Unknown [id number] 2.16.840.1.530803.3.579. 2.593 1979 Unknown [id number] 2.16.840.1.973892.3.579. 2.593 1979 Unknown [id number] 2.16.840.1.616189.3.579. 2.593 1979 Unknown [id number] 2.16.840.1.696761.3.579. 2.593 1979 Unknown [id number] 2.16.840.1.774631.3.579. 2.593 1979 Unknown [id number] 2.16.840.1.180842.3.579. 2.593 1979 Unknown [id number] 2.16.840.1.750230.3.579. 2.593 1979 Unknown [id number] 2.16.840.1.074007.3.579. 2.593 1979 Unknown [id number] 2.16.840.1.716136.3.579. 2.593 1979 Unknown [id number] 2.16.840.1.194623.3.579. 2.593 1979 Unknown [id number] 2.16.840.1.010385.3.579. 2.593 1979 Unknown [id number] 2.16.840.1.116566.3.579. 2.593 1979 Unknown [id number] 2.16.840.1.785902.3.579. 2.593 1979 Unknown [id number] 2.16.840.1.990922.3.579. 2.593 1979 Unknown [id number] 2.16.840.1.112854.3.579. 2.593 1979 Unknown [id number] 2.16.840.1.845567.3.579. 2.593 1979 Unknown [id number] 2.16.840.1.565403.3.579. 2.593 1979 Unknown [id number] 2.16.840.1.785455.3.579. 2.593 1979 Unknown [id number] 2.16.840.1.604462.3.579. 2.593 1979 Unknown [id number] 2.16.840.1.930432.3.579. 2.593 1979 Unknown [id number] 2.16.840.1.725325.3.579. 2.593 1979 Unknown [id number] 2.16.840.1.096325.3.579. 2.593 1979 Unknown [id number] 2.16.840.1.655529.3.579. 2.593 1979 Unknown [id number] 2.16.840.1.261035.3.579. 2.593 1979 Unknown [id number] 2.16.840.1.786820.3.579. 2.593 1979 Unknown [id number] 2.16.840.1.992828.3.579. 2.1259 1979 Unknown [id number] 2.16.840.1.326373.3.579. 2.1259 1979 Unknown [id number] 2.16.840.1.152009.3.579. 2.1259 1979 Unknown [id number] 2.16.840.1.190587.3.579. 2.1258 1979 Unknown [id number] 2.16.840.1.861693.3.579. 2.1258 1979 Unknown [id number] 2.16.840.1.530422.3.579. 2.1258 1979 Unknown [id number] 2.16.840.1.498027.3.579. 2.1258 1979 Unknown [id number] 2.16.840.1.373393.3.579. 2.1258 1979 Unknown [id number] 2.16.840.1.202435.3.579. 2.9 1959 Unknown [id number] 2.16.840.1.428417.19 1959 Unknown [id number] 2.16.840.1.113555.19 Unknown [id number] 2.16.840.1.097891.3.579. 2.531 Social History Date Type Detail Facility Unknown if ever smoked [employer] [facility] Start: 03-23-2023 End: 04-19-2024 Sex Assigned At [facility] Start: 12-21-2022 Tobacco smoking status [facility] Never smoked tobacco [facility] Start: 12-21-2022 Tobacco use and exposure Smokeless tobacco non-user [facility] Start: 05-18-2023 End: 04-19-2024 Alcohol intake [...] Start: 1980 Sex Assigned At Male F [facility] Start: 10-19-2023 Tobacco smoking status NHIS Ex-smoker (finding) [facility] Medical Equipment Procedure Code Equipment Code [...] polyneuropathy associated with type 2 diabetes mellitus ([facility]/HCC) Comments: Pt sees endo. HgbA1c 01/31 7.4 (prior 9.7 in October). Enc yearly eye exam. Watch sweets, portions on carbs. Enc to to be as active as able. Endo did lab Jan 19 Urine micro, CMP, Lipid. 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, subsequent encounter ([facility]) Comments: Sees Dr Feldman and Oscar Dyslipidemia ([facility]) Comments: Lipids: Chol 126, Trig 219, HDL 25, LDL 69, ratio 5 per Endo lab in jan Hypertriglyceridemia ([facility]/HCC) Comments: See above last 290 in Mar [...] valgus, unspecified laterality: Sees Podiatry Morbid obesity ([facility]/HCC): See above Vitamin B12 deficiency: 374 on recent lab in Jan Lipoprotein deficiency disorder F/U in July or August for recheck-hypertension/Diabetes, sooner if concerns documented in this encounter [facility] 02-28-2024 Telephone encount er Note Rx sent [facility] 02-28-2024 Miscellaneous Notes Formattin g of this note might be different from the original. Rx sent documented in this encounter [facility] 01-19-2024 History of Presen t illness Narrative [...] polyneuropathy associated with type 2 diabetes mellitus ([facility]) Comments: HgbA1c 9.7 in October. He sees Endo. Plans to do lab for them this week. He has Endo appt next week. Enc yearly eye exams. Enc to watch portions on carbs, avoid sweets. Try to be as active as able. Type 2 diabetes mellitus with neurological manifestation ([facility]) Essential hypertension: Controlled. Pt will verify what dose he has at home ie 30 or 40mg of Lisinopril. 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 Avoid sweets, more fruits and mainly non-starchy vegetables, lean protien, nuts and routine exercise. Amputation of toe, traumatic, left, sequela ([facility]) Vitamin B 12 deficiency Comments: Last Vit B12 351 Pt declined flu vaccine today, prefers to wait into later February, could stop back here or do at work or pharmacy. Does not plan to get any more covid vaccines. Enc to think about Prevnar 20. F/U in 3 months for Wellness, sooner if concerns. PVU documented in this encounter [facility] 06-16-2023 History of Presen t illness Narrative [...] polyneuropathy associated with type 2 diabetes mellitus ([facility]) Comments: Sees Joshua, last HgbA1c 8.11 May 2023 (prior 8.9 end of December). Pt asked me why we can't just take care of his Diabetes, so he doesn't have to go to [facility]. I told him because his sugars are [...] DM care again. 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 Now has left foot toe amputated. Per pt toe is healing Ulcer of foot due to type 2 diabetes mellitus ([facility]/HCC): Hx of Poorly controlled diabetes mellitus ([facility]): Last HgbA1c 8.2 Type 2 diabetes mellitus with hyperglycemia, with long-term current use of insulin ([facility]): As above Vitamin B 12 deficiency Comments: Last WNL at 351 Hx of diabetic neuropathy: Hx of 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CMS/HCC): Hx of Morbid obesity ([facility]) Comments: Enc healthy diet, watch sweets carbs. Balance diet with carb proteinm try to add vegeatbles, Enc physical activity as able Hypertriglyceridemia ([facility]) Comments: Last lipids 04/01 Chol 142, Trig [...] neuropathy, with long-term current use of insulin ([facility]): Hx of MCFP (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 (Z79.4): Hx of Acquired absence of other toe(s), unspecified side (Z89.429): Hx of Type 2 diabetes mellitus with diabetic neuropathy, with long-term current use of insulin ([facility]); Hx of Body mass index [BMI] 50.0-59.9, adult (Z68.43): See above. Discussed seeing weight loss provider or seeing someone about gastric bypass-pt declined both. He is not interested in this Type 2 diabetes mellitus with foot ulcer, with long-term current use of insulin ([facility]): Hx of (no ulcer at [...] Type 2 Diabetes mellitus with hyperglycemia with custodial current use of insulin (CMS/[facility]): Hx of Morbid obesity: See above documented in this encounter [facility] 06-15-2023 Evaluation note Encounter Date Diagnosis Assessment Notes Jun, Type 2 diabetes mellitus with hyperglycemia (ICD-10 - E11.65) [employer] [facility] 01-31-2024 Evaluation note* Encounter Date Diagnosis [...] - R23.4) keep f/u with Dr. Feldman [employer] [facility] 08-28-2023 Evaluation note* Encounter Date Diagnosis [...] for Lispro/ozempic 0.5mg sent to [facility] in [place] 01/04/23 7. Prescriptions will not be filled [...] has apt scheduled with Dr. Feldman today [employer] Other 05-30-2023 NotePROCEDURE: XR FOOT LT MIN [...] Electronically authenticated by: FRANCO FRANCES Date: 2022-10-06 14:13[facility]05-04-2023 Evaluation note* Encounter Date Diagnosis Assessment Notes Treatment Notes Treatment Clinical Notes September, Type 2 diabetes mellitus with hyperglycemia (ICD-10 - E11.65) [employer] Other 04-17-2023 NotePROCEDURE: XR FOOT LT MIN [...] Electronically authenticated by: FERN SOSA Date: 2022-08-24 12:46[facility]02-16-2023 Evaluation note* Encounter Date Diagnosis Assessment Notes Treatment Notes Treatment Clinical Notes Jun, Type 2 diabetes mellitus with hyperglycemia (ICD-10 - E11.65) 1. Uncontrolled, a Type 2 diabetes with A1c of 8.2% 2. Blood glucose levels above target. Discussed with pt restarting ozempic, he had s/e from higher dose ozempic 1mg and concern with cost works at [employer]. Pt agreeable to starting sample ozempic 0.5mg [...] to [facility] in [place] 06/25/22 7. 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 (ICD-10 - Z79.4) Dec, Vitamin B 12 deficiency (ICD-10 - E53.8) 12/28 vit b 12 423 at target Dec, BMI 45.0-49.9, adult (ICD-10 - Z68.42) 14 pound weight loss from last visit, continue with weight loss efforts [employer] Other 01-01-2021 History general Narrative - Reported* Type Description Date Medical History type II diabetes Medical History hypertension Medical History hyperlipidemia Medical History covid 05/2020 Surgical History Ulcer on left great toe X2 Surgical History Partial amputation Right great toe 01/2021 Surgical History All toes right foot amputated Hospitalization History Toe infection 2017 [employer] [facility] 01-01-2021 History general Narrative - Reported* Type Description Date Medical History type II diabetes Medical History hypertension Medical History hyperlipidemia Medical History covid 05/2020 Surgical History Ulcer on left great toe X2 Surgical History Partial amputation Right great toe 01/2021 Surgical History All toes right foot amputated Surgical History Left great toe corre ctive surgery with Dr. Feldman in [place] 10/2022 Hospitalization History Toe infection 2017 [facility] [employer] Other chief complaint+Reason for visit Narrative* Chief Complaint no meter Reason for Visit BMI 50.0-59.9, adult Dietary counseling and surveillance Hypertension Mixed hyperlipidemia Type 2 diabetes mellitus with hyperglycemia [facility] Work Phone: [employer] complaint+Reason for visit Narrative* Chief Complaint meter Reason for Visit BMI 50.0-59.9, adult Dietary counseling and surveillance Hypertension Mixed hyperlipidemia Type 2 diabetes mellitus with hyperglycemia Wound of left foot Wound of right foot [facility] Work Phone: Evaluation [facility]No [facility] [employer] Other Evaluation note* Diagnosis Diabetic polyneuropathy associated with type 2 diabetes mellitus ([facility]/HCC)- Primary Diabetic neuropathic arthropathy ([facility]/HCC) Type II or unspecified type diabetes mellitus with neurological manifestations, not stated as uncontrolled Type 2 diabetes mellitus with neurological manifestation ([facility]) 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, sequela ([facility]) Ulcer of foot due to type 2 diabetes mellitus ([facility]/HCC) Vitamin B 12 deficiency Other B-complex deficiencies Hx of diabetic neuropathy 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[facility]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) Lipoprotein deficiencies Hypertriglyceridemia ([facility]) Pure hyperglyceridemia 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, 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) Essential hypertension Unspecified essential hypertension Nasal congestion Other diseases of nasal cavity and sinuses Type 2 diabetes mellitus with diabetic autonomic neuropathy, with long-term current use of insulin ([facility]/HCC) 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 (Z79.4) Acquired absence of other toe(s), unspecified side (Z89.429) Type 2 diabetes mellitus with diabetic neuropathy, with long-term current use of insulin ([facility]/HCC) Body mass index [BMI] 50.0-59.9, adult (Z68.43) Type 2 diabetes mellitus with foot ulcer, with long-term current use of insulin ([facility]/HCC) 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.49) Status post amputation of lesser toe, unspecified laterality ([facility]) Arthritis of left foot Acquired hallux valgus of left foot Type 2 diabetes mellitus with hyperglycemia, with long-term current use of insulin ([facility]) Morbid obesity ([facility]) Morbid obesity documented in this encounter [facility] HealthcareEvaluation noteNo assessment information availableBu[facility] Work Phone: Evaluation note* Diagnosis Onset Date Resolution Status BMI 50.0-59.9, adult acute Dietary counseling and surveillance acute Hypertension acute Mixed hyperlipidemia acute Type 2 diabetes mellitus with hyperglycemia acute [facility] Work Phone: Evaluation note* Diagnosis Onset Date Resolution Status BMI 50.0-59.9, adult acute Dietary counseling and surveillance acute Hypertension acute Mixed hyperlipidemia acute Type 2 diabetes mellitus with hyperglycemia acute Wound of left foot acute Wound of right foot acute [facility] Work Phone: Evaluation note* Diagnosis Pure hyperglyceridemia ([facility]) Pure hyperglyceridemia documented in this encounter [facility] Healthcare[facility] note* Diagnosis Diabetic polyneuropathy associated with type 2 diabetes mellitus ([facility])- Primary Type 2 diabetes mellitus with neurological manifestation ([facility]) Essential hypertension Unspecified essential hypertension 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, subsequent encounter ([facility]) Type 2 diabetes mellitus with hyperglycemia, with long-term current use of insulin ([facility]) Dyslipidemia ([facility]) Other and unspecified hyperlipidemia Hypertriglyceridemia ([facility]) Pure hyperglyceridemia Vitamin B 12 deficiency Other B-complex deficiencies Pure hyperglyceridemia ([facility]) Pure hyperglyceridemia documented in this encounter [facility] Healthcare[facility] note* Diagnosis Diabetic polyneuropathy associated with type 2 diabetes mellitus ([facility])- Primary Wellness examination Type 2 diabetes mellitus with neurological manifestation ([facility]) Essential hypertension Unspecified essential hypertension 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, subsequent encounter ([facility]) Dyslipidemia ([facility]) Other and unspecified hyperlipidemia Hypertriglyceridemia ([facility]) Pure hyperglyceridemia Poorly controlled diabetes mellitus ([facility]) Type II or unspecified type diabetes mellitus without mention of complication, not stated as uncontrolled Type 2 diabetes mellitus with hyperglycemia, with long-term current use of insulin ([facility]) Diabetic autonomic neuropathy associated with type 2 diabetes mellitus ([facility]) Type II or unspecified type diabetes mellitus with neurological manifestations, not stated as uncontrolled Acquired hallux valgus, unspecified laterality Morbid obesity (CMS/HCC) Morbid obesity Vitamin B 12 deficiency Other B-complex deficiencies 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CMS/[facility]) Lipoprotein deficiencies documented in this encounter [facility] [...] content) DATE CREATED AUTHOR 08/27/2021 [facility] dical Specialist DATE CREATED AUTHOR AUTHOR'S ORGANIZ ATION 10/17/2022 [facility] DATE CREATED AUTHOR AUTHOR'S ORGANIZ ATION 08/14/2023 [facility] DATE CREATED AUTHOR AUTHOR'S ORGANIZ ATION 04/22/2024 [facility] dical Specialists EPIC REASON FOR VISIT [...] January 26, 2024 End: January 26, 2024 [employer] Intern Relationship Specialty Start Date End Date Natalie Hernandez MD [address] [place] [address] PCP - General Family Medicine 09/15/22 [employer] Intern Relationship Specialty Start Date End Date Natalie Hernandez MD [address] [place] [address] PCP - General Family Medicine 09/15/22 Team [...] October 19, 2023 End: October 19, 2023 [employer] Intern Relationship Specialty Start Date End Date Natalie eHrnandez MD [address] [place] [address] PCP - General Family Medicine 09/15/22 Blossom Cody NP [address] [place] [address] Nurse Practitioner Family Medicine 01/19/24 [employer] Intern Relationship Specialty Start Date End Date Natalie Hernandez MD [address] [place] [address] PCP - General Family Medicine 09/15/22 Blossom Cody NP [address] [facility] [place] [address] Nurse Practitioner Family Medicine 01/19/24 [employer] Intern Relationship Specialty Start Date End Date Natalie Hernandez MD [address] [place] [address] PCP - General Family Medicine 09/15/22 Blossom Cody NP [address] [place] [address] Nurse Practitioner Family [facility] 01/19/24 [employer] Intern Relationship Specialty Start Date End Date Natalie Hernandez MD [address] [place] [address] PCP - General Family Medicine 09/15/22 Blossom Cody NP [address] [place] [address] Nurse Practitioner Family [facility] 01/19/24 Goals (unrecognized section and content) Goals [...] BE BASED ON THE PRIMARY CLINICAL RECORDS. [facility]. provides no warranty or guarantee of the accuracy or completeness of information in this document.
== END 2024-04-25 16:40 | disposition home or self-care (01) ==
LOC: LAB 16:39
PROVIDERS: PCP Family Medicine; Visit Provider Physician Assistant
DX: L02.611 Cutaneous abscess of right foot (principal); L97.519 Non-pressure chronic ulcer of other part of right foot with unspecified severity; M79.671 Pain in right foot; E11.621 Type 2 diabetes mellitus with foot ulcer; L97.412 Non-pressure chronic ulcer of right heel and midfoot with fat layer exposed
CPT/HCPCS: 73630; 87070; 87075; 87150; 87186; 87205

== ENCOUNTER 2024-05-11 15:08 | Outpatient (OUT) | payer OTHER, SELFPAY | END 2024-05-11 15:09 | disposition home or self-care (01) | LOC: WC 15:08 | PROVIDERS: PCP Family Medicine; Visit Provider Physician Assistant | DX: E11.621 Type 2 diabetes mellitus with foot ulcer (principal); L97.412 Non-pressure chronic ulcer of right heel and midfoot with fat layer exposed | CPT/HCPCS: 29515 ==

== ENCOUNTER 2024-05-23 10:00 | Outpatient (OUT) | payer OTHER, SELFPAY ==
--- OUTSIDE RECORDS SUMMARY | 2024-05-25 10:34 | XMS_ITS | CCD ---
Author Organization [facility] Care Team Providers Care Composite Science Teacher Name Role Phone Link Ortega Unavailable NATANAEL [...] Care Provider MD Damon Claros Attending Provider [phone] MD Shelby [facility] Provider [phone] Natalie Hernandez MD Primary Care Provider Glo CORONER, Blossom Kong Unavailable BLOSSOM CODY Attending Unavailable GLO, BLOSSOM Kong Attending Unavailable RUSHER, MIRLANDE Zhang Attending Unavailable RUSHER, MIRLANDE Zhang Attending Unavailable GLO, BLOSSOM Kong Attending Unavailable RUSHER, MIRLANDE S Attending Unavailable RUSHER, MIRLANDE S Attending Unavailable GLO, BLOSSOM A Attending Unavailable GLO, BLOSSOM Kong Attending Unavailable Wonderly, [facility] Care Unavailable Michelleander, Natanael Marks Admitting Unavailable Highlander, Natanael Marks Attending Unavailable Shelby, [facility] Care Unavailable Damon Claros Admitting [...] sources) Long-term current use of insulin; Translations: [rn long term care (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] 06-17-2023 Episodic Other aftercare (4 sources) rn long term care (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 Onset: 01-06-2022 Resolved: [...] Test Name Value Interpretation Reference Range Facility [facility] 04-26-2024 L Specimen: [id number] Received: 04/26/24 Status: CALEB Gabriel Num: [id number] Spec Type: Surgical Subm Dr: Natanael Feldman DPM, Tissues: A Skin-Other than Cyst, tag, debridement or plastic repair (RT FOOT ULCER) Procedures: Yenny SCOTT/Mary Robles Age/ Patient Sex Location Account Attending Physician Trev Ontiveros 43/M LABELL [id number] Natanael Feldman DPM, SPEC NUM: [id number] RECD: 04/26/24 STATUS: CALEB GABRIEL NUM: [id number] MARTHA: 04/26/[address]: Natanael Feldman DPM, MS ENTERED: 04/26/24 [facility] DR: Farzana Rene SPEC TYPE: Surgical DEPT: DERRICK PLUNKETT ENTERED BY: [id number] RECV BY: [id number] ORDERED: HE, Gross/Micro L4 ORDERED: HE, Gross/Micro [...] reveal purple-brown to green, softened cut surfaces. Shaping 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 sections are submitted in a single cassette. (1, ss, [id number] A) CPT Codes 28539 Specimen: [id number] Received: 04/26/24 Status: CALEB Nery Num: [id number] Spec Type: Surgical Subm Dr: Natanael Feldman DPM, MS Tissues: A Skin-Other than Cyst, tag, debridement or plastic repair (RT FOOT ULCER) Procedures: HE, Gross/Micro L4 Patient: Trev Ontiveros [id number] (Continued) Signed (signature on file) Melanie Roca MD 04/27/24 1349 Normal [facility] A1C HEMOGLOBINon 06-09-2023 HbA1c (Bld) [Mass fraction] 8.2 % [employer] Other Glucose - FINGER STICKon Glucose [Mass/Vol] 170 mg/dL [employer] Other HbA1c (Bld) [Mass fraction]o n 06-09-2023 A1C HEMOGLOBIN [employer] Other A1C HEMOGLOBINon 01-04-2023 HbA1c (Bld) [Mass fraction] 8.9 % [employer] Other Glucose - FINGER STICKon Glucose [Mass/Vol] 201 mg/dL [employer] Other HbA1c (Bld) [Mass fraction]o n 01-04-2023 A1C HEMOGLOBIN [employer] Other PROF CHEM 8 (BAS METB)on Anion gap [Moles/Vol] 14.3 mmol/L Normal [facility] Comment on above: Performed By: #### B MP #### [facility] [address] [address] [address] Lauri Todd Calcium [Mass/Vol] 9.4 mg/dL Normal 8.5-10.1 [facility] Comment on above: Performed By: #### B MP #### [facility] [address] [address] [address] Lauri Todd Chloride [Moles/Vol] 101 mmol/L Normal 98-107 [facility] Comment on above: Performed By: #### B MP #### [facility] [address] [address] [address] Luari Todd CO2 [Moles/Vol] 26.2 mmol/L Normal 21.0-32.0 [facility] Comment on above: Performed By: #### B MP #### [facility] [address] [place] [address] Dr. Lauri Todd Creatinine [Mass/Vol] 0.90 mg/dL Normal 0.70-1.30 [facility] Comment on above: Performed By: #### B MP #### [facility] [address] [address] [address] Lauri Todd EGFR-AF GUYANESE >60 Normal >=60 [facility] Comment on above: Performed By: #### B MP #### [facility] [address] [place] [address] Dr. Lauri Todd EGFR-NON AF GUYANESE >60 Normal >=60 [facility] Comment on above: Performed By: #### B MP #### [facility] [address] [address] [address] Lauri Todd Glucose [Mass/Vol] 146 mg/dL Critically high 74-106 [facility] Comment on above: Performed By: #### B MP #### [facility] [address] [place] [address] Dr. Lauri Todd Potassium [Moles/Vol] 4.5 mmol/L Normal 3.5-5.1 [facility] Comment on above: Performed By: #### B MP #### [facility] [address] [place] [address] Dr. Lauri Todd Sodium [Moles/Vol] 137 mmol/L Normal 136-145 [facility] Comment on above: Performed By: #### B MP #### [facility] [address] [place], [place] [address] Dr. Lauri Todd Urea nitrogen [Mass/Vol] 16.0 mg/dL Normal 7.0-18.0 [facility] Comment on above: Performed By: #### B MP #### [facility] [address] [place], [place] [address] Dr. Lauri Todd Urea nitrogen/Creatinin e [Mass ratio] 17.8 mg/mg Normal [facility] Comment on above: Performed By: #### B MP #### [facility] [address] [address] [address] Lauri Todd A1C HEMOGLOBINon 06-25-2022 HbA1c (Bld) [Mass fraction] 8.2 % [employer] Other Glucose - FINGER STICKon Glucose [Mass/Vol] 180 mg/dL [employer] Other HbA1c (Bld) [Mass fraction]o n 06-25-2022 [facility] Other XR FOOT LT MIN 3 VIEWSon [...] by: RAFAEL WHITAKER Date: 2022-05-25 11:[address] [facility] A1C HEMOGLOBINon 01-06-2022 HbA1c (Bld) [Mass fraction] 7 % [facility] [employer] Other Glucose - FINGER STICKon Glucose [Mass/Vol] 148 mg/dL [facility] [employer] Other HbA1c (Bld) [Mass fraction]o n 01-06-2022 A1C HEMOGLOBIN [facility] [employer] Other Basic Metabolic Panelon - Anion gap [Moles/Vol] 20 mmol/L Normal 12-20 [facility] Comment on above: Result Comment: Effe ctive 05/15/2019 reference range changed. Performed By: #### B MP #### [facility] [address], [place] [id number] Calcium [Mass/Vol] 10.0 mg/dL Normal 8.6-10.2 [facility] Comment on above: Performed By: #### B MP #### [facility] [address], [place] [id number] Chloride [Moles/Vol] 100 mmol/L Normal 98-107 [facility] Comment on above: Performed By: #### B MP #### [facility] [address], [place] [id number] CO2 [Moles/Vol] 22 mmol/L Normal 20-31 [facility] Comment on above: Performed By: #### B MP #### [facility] [address], [place] [id number] Creatinine [Mass/Vol] 0.8 mg/dL Normal 0.7-1.4 [facility] Comment on above: Performed By: #### B MP #### [facility] [address], [place] [id number] eGFRAA 129 mL/min/1.73m2 Normal >60 [facility] Comment on above: Performed By: #### B MP #### [facility] [address], [place] [id number] eGFRNAA 107 mL/min/1.73m2 Normal >60 [facility] Comment on above: Performed By: #### B MP #### [facility] [address] [place] [id number] Glucose [Mass/Vol] 140 mg/dL High 65-99 [facility] [place] [facility] Comment on above: Result Comment: For FASTING Glucose --- ADA reference ranges: Normal 65-99 mg/dl Prediabetes 100-125 Diabetes >/= 126 Performed By: #### B MP #### [facility] [address] [facility] [place] [id number] Potassium [Moles/Vol] 4.3 mmol/L Normal 3.5-5.5 [facility] Comment on above: Performed By: #### B MP #### [facility] [address] [facility] [place] [id number] Sodium [Moles/Vol] 137 mmol/L Normal 135-146 [facility] Comment on above: Performed By: #### B MP #### [facility] [address], [place] [id number] Urea nitrogen [Mass/Vol] 17 mg/dL Normal 7-25 [facility] Comment on above: Performed By: #### B MP #### [facility] [address], [place] [id number] Vital Signs Date Time Vital Sign Value Performing Clinician Facility 04-19-2024 09:47-0500 Body mass index (BMI) [Ratio] 52.21 kg/m2 Blossom Cody CORONER Work Phone: [facility] 04-19-2024 09:47-0500 Body weight 172.19 kg Blossom Cody CORONER Work Phone: [facility] 04-19-2024 09:47-0500 Diastolic blood pressure 72 mm[Hg] Blossom Cody CORONER Work Phone: [facility] 04-19-2024 09:47-0500 Heart rate 84 /min Blossom Cody CORONER Work Phone: [facility] 04-19-2024 09:47-0500 Systolic blood pressure 128 mm[Hg] Blossom Cody CORONER Work Phone: [facility] 01-26-2024 09:59-0400 Body height 182.88 cm [facility] 01-26-2024 09:59-0400 Body mass index (BMI) [Ratio] 51.2 kg/m2 [facility] 01-26-2024 09:59-0400 Body weight 171.54 kg [facility] 01-26-2024 09:59-0400 Diastolic blood pressure 83 mm[Hg] [facility] 01-26-2024 09:59-0400 Heart rate 81 /min [facility] 01-26-2024 09:59-0400 Respiratory rate 18 /min [facility] 01-26-2024 09:59-0400 SaO2% (BldA) [Mass fraction] 94 % [facility] 01-26-2024 09:59-0400 Systolic blood pressure 155 mm[Hg] [facility] 01-19-2024 11:00-0400 Body mass index (BMI) [Ratio] 51.82 kg/m2 Blossom Cody CORONER Work Phone: [facility] 01-19-2024 11:00-0400 Body weight 170.91 kg Blossom Lozoyael CORONER Work Phone: [facility] 01-19-2024 11:00-0400 Diastolic blood pressure 78 mm[Hg] Blossom Lozoyael CORONER Work Phone: [facility] 01-19-2024 11:00-0400 Heart rate 84 /min Blossomdidier Lozoyael CORONER Work Phone: [facility] 01-19-2024 11:00-0400 Systolic blood pressure 136 mm[Hg] Blossom Lozoyael CORONER Work Phone: [facility] 10-19-2023 11:31-0400 Body height 182.88 cm [facility] 10-19-2023 11:31-0400 Body mass index (BMI) [Ratio] 51.7 kg/m2 [facility] 10-19-2023 11:31-0400 Body weight 172.87 kg [facility] 10-19-2023 11:31-0400 Diastolic blood pressure 83 mm[Hg] [facility] 10-19-2023 11:31-0400 Heart rate 74 /min [facility] 10-19-2023 11:31-0400 Respiratory rate 18 /min [facility] 10-19-2023 11:31-0400 SaO2% (BldA) [Mass fraction] 97 % [facility] 10-19-2023 11:31-0400 Systolic blood pressure 149 mm[Hg] [facility] 06-16-2023 11:33-0500 Diastolic blood pressure 84 mm[Hg] Blossomdidier Lozoyael CORONER Work Phone: [facility] 06-16-2023 11:33-0500 Systolic blood pressure 154 mm[Hg] Blossom Lozoyael CORONER Work Phone: [facility] 06-16-2023 11:02-0500 Body mass index (BMI) [Ratio] 52.12 kg/m2 Blossomdidier Lozoyael CORONER Work Phone: [facility] 06-16-2023 11:02-0500 Body weight 171.91 kg Blossomdidier Lozoyael CORONER Work Phone: [facility] 06-16-2023 11:02-0500 Heart rate 92 /min Blossom Lozoyael CORONER Work Phone: [facility] 06-09-2023 08:45-0500 Body height Tondra Mapus Other [facility] [employer] Other 06-09-2023 08:45-0500 Body height 182.88 cm MD Natalie Hernandez Work Phone: [facility] 06-09-2023 08:45-0500 Body mass index (BMI) [Ratio] 51.33 kg/m2 Tondra Mapus Other [facility] Other 06-09-2023 08:45-0500 Body weight 171.69 kg Tondra Mapus Other [employer] Other 06-09-2023 08:45-0500 Body weight 171.68 kg MD Natalie Hernandez Work Phone: [facility] 06-09-2023 08:45-0500 Diastolic blood pressure 80 mm[Hg] Tondra Mapus Other [facility] 06-09-2023 08:45-0500 Respiratory rate 18 /min Tondra Mapus Other [employer] Other 06-09-2023 08:45-0500 SaO2% (BldA) [Mass fraction] 94 % Tondra Mapus Other [employer] Other 06-09-2023 08:45-0500 Systolic blood pressure 148 mm[Hg] Tondra Mapus Other [facility] 01-04-2023 08:45-0400 Body height Tondra Mapus Other [employer] Other 01-04-2023 08:45-0400 Body mass index (BMI) [Ratio] 51.37 kg/m2 Tondra Mapus Other [employer] Other 01-04-2023 08:45-0400 Body weight 171.82 kg Tondra Mapus Other [employer] Other 01-04-2023 08:45-0400 Diastolic blood pressure 85 mm[Hg] Tondra Mapus Other [employer] Other 01-04-2023 08:45-0400 Respiratory rate 18 /min Tondra Mapus Other [employer] Other 01-04-2023 08:45-0400 SaO2% (BldA) [Mass fraction] 98 % Tondra Mapus Other [employer] Other 01-04-2023 08:45-0400 Systolic blood pressure 150 mm[Hg] Tondra Mapus Other [employer] Other 06-25-2022 09:45-0500 Body height Tondra Mapus Other [employer] Other 06-25-2022 09:45-0500 Body mass index (BMI) [Ratio] 51.14 kg/m2 Tondra Mapus Other [employer] Other 06-25-2022 09:45-0500 Body weight 171.05 kg Tondra Mapus Other [employer] Other 06-25-2022 09:45-0500 Diastolic blood pressure 80 mm[Hg] Tondra Mapus Other [employer] Other 06-25-2022 09:45-0500 Respiratory rate 18 /min Tondra Mapus Other [employer] Other 06-25-2022 09:45-0500 SaO2% (BldA) [Mass fraction] 95 % Tondra Mapus Other [employer] Other 06-25-2022 09:45-0500 Systolic blood pressure 139 mm[Hg] Tondra Mapus Other [employer] Other 01-06-2022 09:45-0400 Body height Tondra Mapus Other [employer] Other 01-06-2022 09:45-0400 Body mass index (BMI) [Ratio] 48.28 kg/m2 Tondra Mapus Other [employer] Other 01-06-2022 09:45-0400 Body weight 161.48 kg Tondra Mapus Other [employer] Other 01-06-2022 09:45-0400 Diastolic blood pressure 71 mm[Hg] Tondra Mapus Other [employer] Other 01-06-2022 09:45-0400 Respiratory rate 20 /min Tondra Mapus Other [employer] Other 01-06-2022 09:45-0400 SaO2% (BldA) [Mass fraction] 95 % Tondra Mapus Other [employer] Other 01-06-2022 09:45-0400 Systolic blood pressure 124 mm[Hg] Tondra Mapus Other [employer] Other Encounters Encounter Date Encounter Type Care Provider Facility Start: 04-27-2024 End: 04-29-2024 [facility] Result Encounter Generic External Data Provider [facility] External [facility] Unsolicited Start: 04-27-2024 End: 04-29-2024 [facility] Result Encounter Generic External Data Provider [facility] External Department Unsolicited Start: 04-26-2024 End: 04-26-2024 [facility] Facility:[facility] Start: 04-25-2024 End: 04-27-2024 [facility] Result Encounter Generic External Data Provider [facility] External Department Unsolicited Start: 04-25-2024 End: 04-27-2024 [facility] Result Encounter Generic External Data Provider [facility] External Department Unsolicited Start: 04-19-2024 End: 04-19-2024 Cedrick Cody NP Work Phone: [facility] Start: 04-19-2024 End: 04-19-2024 Bamboo flowsheet Blossom Cody CORONER Work Phone: [facility] Start: 04-19-2024 End: 04-19-2024 Patient encounter status Blossom Cody CORONER Work Phone: [facility] Start: 04-19-2024 End: 04-19-2024 Periodic preventive med est patient 40-64yrs Blossom Cody CORONER Work Phone: [facility] Comment on above: Diabetic polyneuropa thy associated with type 2 diabetes mellitus (CMS/HCC) (Primary Dx); Wellness examination; 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); Essential hypertension; 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, subsequent encounter ([facility]/HCC); Dyslipidemia (CMS/HCC); Hypertriglyceridemia (CMS/HCC); Poorly controlled [...] FM Comment on above: Pure hyperglyceridem ia ([facility]/HCC) Start: 01-26-2024 End: 01-26-2024 ambulatory [facility] Work Phone: Start: 01-26-2024 End: 01-26-2024 Patient encounter procedure [facility] Work Phone: Start: 01-20-2024 Non-patient / Non-visit [facility] Work Phone: Start: 01-19-2024 End: 01-19-2024 Bamboo flowsheet Blossom Cody CORONER Work Phone: [facility] Start: 01-19-2024 End: 01-19-2024 Bamboo flowsheet Blossom Cody CORONER Work Phone: [facility] Start: 01-19-2024 End: 01-19-2024 Office outpatient visit 25 minutes Blossom Cody CORONER Work Phone: [facility] Comment on [...] Not Available Start: 10-19-2023 End: 10-19-2023 ambulatory [facility] Work Phone: Start: 10-19-2023 End: 10-19-2023 Patient encounter procedure [facility] Work Phone: Start: 10-12-2023 End: 10-12-2023 ambulatory MIRLANDE MOORE Not Available Start: 09-15-2023 End: 09-15-2023 ambulatory BLOSSOM CODY Not Available Start: 09-06-2023 End: 09-06-2023 ambulatory MIRLANDE MOORE Not Available Start: 08-02-2023 End: 08-02-2023 ambulatory MIRLANDE MOORE Not Available Start: 07-07-2023 End: 07-07-2023 ambulatory BLOSSOM CODY Not Available Start: 06-16-2023 Bamboo flowsheet Blossom cabrales CORONER Work Phone: [facility] Start: 06-16-2023 Bamboo flowsheet Blossom cabrales CORONER Work Phone: [facility] Start: 06-16-2023 End: 06-16-2023 Office outpatient visit 25 minutes Blossom Cody CORONER Work Phone: [facility] Comment on above: Diabetic polyneuropa thy associated with type 2 diabetes mellitus (CMS/HCC) (Primary Dx); Diabetic neuropathic arthropathy ([facility]); Type 2 diabetes mellitus with neurological manifestation ([facility]); 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, sequela ([facility]); Ulcer of foot due to type 2 diabetes mellitus ([facility]); Vitamin B 12 deficiency; Hx of diabetic neuropathy; 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CMS/HCC); Hypertriglyceridemia (CMS/[facility]); 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, 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); Essential hypertension; Nasal congestion; Type 2 diabetes mellitus with diabetic autonomic neuropathy, with long-term current use of insulin ([facility]); custodial (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 (Z79.4); Acquired absence of other toe(s), unspecified side (Z89.429); Type 2 diabetes mellitus with diabetic neuropathy, with long-term current use of insulin ([facility]); Body mass index [BMI] 50.0-59.9, adult (Z68.43); Type 2 diabetes mellitus with foot ulcer, with long-term current use of insulin ([facility]); 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.49); Status post amputation of lesser toe, unspecified laterality ([facility]); Arthritis of left foot; Acquired hallux valgus of left foot; Type 2 diabetes mellitus with hyperglycemia, with long-term current use of insulin ([facility]); Morbid obesity ([facility]) Start: 06-16-2023 End: 06-16-2023 ambulatory BLOSSOM CODY Not Available Start: 06-15-2023 End: 06-15-2023 ambulatory Tondra Mapus Other [employer] Other Start: 06-15-2023 Telephone encounter Tondra Dayannaus [facility] Start: 06-09-2023 (DM) Diabetes Tondra Dayannaus [facility] Start: 06-09-2023 End: 06-09-2023 Discharged Recurring MD Natalie Hernandez [facility] Work Phone: Start: 06-09-2023 End: 06-09-2023 ambulatory MD Natalie Hernandez Work Phone: [employer] Other Start: 06-09-2023 End: 06-09-2023 Patient encounter procedure MD Natalie Hernandez Work Phone: [facility] Start: 01-04-2023 (DM) Diabetes Tondra [facility] Start: 01-04-2023 End: 01-04-2023 ambulatory Tondra Mapus Other [employer] Other Start: 12-21-2022 End: 12-21-2022 ambulatory Tondra Mapus Other [employer] Other Start: 12-21-2022 Telephone encounter Tondra Mapus [facility] Start: 10-12-2022 ambulatory NATANAEL FELDMAN Faci lity:H1 Start: 10-06-2022 End: 10-07-2022 ambulatory NATANAEL FELDMAN Facility:H1 Start: 10-01-2022 Encounter for prepro cedural cardiovascular examination NATANAEL FELDMAN [facility] Start: 10-01-2022 Encounter for prepro cedural laboratory examination NATANAEL FELDMAN [facility] Start: 09-30-2022 End: 10-01-2022 ambulatory NATANAEL Selina [facility] Facility:H1 Start: 09-30-2022 End: 10-01-2022 Encounter for preprocedural laboratory examination [facility]EL [facility] Start: 09-15-2022 End: 09-16-2022 ambulatory NATANAEL Marks [facility] Facility:H1 Start: 09-10-2022 End: 09-10-2022 ambulatory Tondra Mapus Other [employer] Other Start: 09-10-2022 Telephone encounter Tondra Mapus [facility] Start: 08-24-2022 End: 08-25-2022 ambulatory NATANAEL Selina [facility] Facility:H1 Start: 08-10-2022 End: 08-10-2022 ambulatory Tondra Mapus Other [employer] Other Start: 08-10-2022 Telephone encounter Tondra Mapus [facility] Start: 08-03-2022 End: 08-04-[address] NATALIE HERNANDEZ Facility:H1 Start: 07-13-2022 End: 07-14-2022 ambulatory MARTELL NAVAS Facility:H1 Start: 06-30-2022 End: 07-01-2022 ambulatory NATANAEL Selina [facility] Facility:H1 Start: 06-25-2022 (DM) Diabetes Tondra Mapus [facility] Start: 06-25-2022 End: 06-25-2022 ambulatory Tondra Mapus Other [employer] Other Start: 06-16-2022 End: 06-17-2022 ambulatory NATANAEL Selina MICHELLECAROLYNN Facility:H1 Start: 06-08-2022 End: 06-09-2022 ambulatory NATANAEL Marks [facility] Facility:H1 Start: 05-25-2022 End: 05-26-2022 ambulatory NATANAEL Marks [facility] Facility:H1 Start: 05-12-2022 End: 05-13-2022 ambulatory NATANAEL Marks [facility] Facility:H1 Start: 04-30-2022 End: 05-01-2022 ambulatory [...] 02-18-2022 End: 02-18-2022 ambulatory Tondra Mapus Other [employer] Other Start: 02-18-2022 Telephone encounter Tondra Shannon [facility] Start: 02-09-2022 End: 02-10-2022 ambulatory NATANAEL Selina FELDMAN Facility:H1 Start: 01-26-2022 End: 01-27-2022 ambulatory NATANAEL FELDMAN Facility:H1 Start: 01-13-2022 End: 01-14-2022 ambulatory NATANAEL FELDMAN Facility:H1 Start: 01-06-2022 (DM) Diabetes Tondra Shannon [facility] Start: 01-06-2022 End: 01-06-2022 ambulatory Tondra Mapus Other [employer] Other Start: 12-29-2021 End: 12-30-2021 ambulatory NATANAEL [...] post amputation of lesser toe, unspecified laterality ([facility]) Blossom Cody CORONER Work Phone: Plan of Treatment Date Care Activity Detail Author Start: 07-26-2025 Glaucoma screening Diabetes: Retinopathy Screening [facility] Start: 07-19-2024 End: 07-19-2024 Patient encounter procedure 07/19/2024 9:30 AM EDT Office Visit [facility] [address] [place] [id number] Blossom Cody NP [address] [place] [address] JEWISH [facility] Start: 04-26-2024 Hemoglobin A1c measurement Diabetes: Hemoglobin A1C [facility] Start: 04-19-2024 End: 04-19-2024 Patient encounter procedure [facility] Comment on above: Diabetic polyneuropathy associated with type 2 diabetes mellitus ([facility]/HCC) (Primary Dx); Wellness examination; Type 2 diabetes mellitus with neurological manifestation ([facility]); Essential hypertension; 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, subsequent encounter ([facility]); Dyslipidemia ([facility]); Hypertriglyceridemia ([facility]); Poorly controlled diabetes mellitus ([facility]); Type 2 diabetes mellitus with hyperglycemia, with long-term current use of insulin ([facility]); Amputation of toe, traumatic, left, sequela ([facility]) Start: 03-24-2024 Urine screening for protein Diabetes: Urine Protein Screening [facility] Start: 03-15-2024 Influenza vaccination Influenza Vaccine (#1) [facility] Comment on above: Postponed from 01/09/2024 (Patient Refus ed) Start: 01-25-2024 End: 01-25-2024 Patient encounter procedure 01/25/2024 10:30 AM EDT Office Visit [facility] [address] [place] [phone] Blossom Cody NP [address] [place] [address] [facility] Start: 01-19-2024 Hemoglobin A1c measurement Diabetes: Hemoglobin A1C [facility] Start: 01-19-2024 End: 01-19-2024 Patient encounter procedure 01/19/2024 11:00 AM EDT Office Visit [facility] [address] [place] [phone] Blossom Cody NP [address] [place] [address] Diabetic polyneuropathy associated with type 2 diabetes mellitus (CMS/HCC) (Primary Dx); 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); Essential hypertension; 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, subsequent encounter (CMS/HCC); Type 2 diabetes mellitus with hyperglycemia, with long-term current use of insulin (CMS/HCC); Dyslipidemia (CMS/HCC); Hypertriglyceridemia (CMS/HCC); Amputation of toe, traumatic, left, sequela (CMS/HCC); Vitamin B 12 deficiency [facility] Comment on above: Diabetic polyneuropathy associated with [...] Start: 01-09-2024 Influenza vaccination Influenza Vaccine (#1) [facility] Start: 09-15-2023 End: 09-15-2023 Patient encounter procedure 09/15/2023 9:30 AM EDT Office Visit [facility] [address] [place] [address] Blossom Cody NP [address] [place] [address] [facility] Start: 09-07-2023 Hemoglobin A1c measurement Diabetes: Hemoglobin A1C [facility] Start: 07-26-2023 Glaucoma screening Diabetes: Retinopathy Screening [facility] Start: 07-07-2023 End: 07-07-2023 Patient encounter procedure 07/07/2023 9:00 AM EST Office Visit [facility] [address] [place] [phone] [facility] Start: 06-16-2023 End: 06-16-2023 Patient encounter procedure 06/16/2023 11:00 AM EST [facility] [address] [place] [phone] Blossom Cody NP [address] [place] [address] Diabetic polyneuropathy associated with type 2 diabetes [...] disorder (CMS/HCC); Morbid obesity (CMS/HCC); Hypertriglyceridemia (CMS/HCC) [facility] Comment on above: Diabetic [...] hyperglycemia, with long-term current use of insulin ([facility]/HCC); Vitamin B 12 deficiency; Hx of diabetic neuropathy; 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CMS/HCC); Morbid obesity ([facility]/HCC); Hypertriglyceridemia ([facility]) BLOOD CULTURE 1 BLOOD CULTURE 1 Lab Routine 04/27/2024 6:10 AM [facility] BLOOD CULTURE 2 BLOOD CULTURE 2 Lab Routine 04/25/2024 1:00 PM [facility] BLOOD CULTURE 2 BLOOD CULTURE 2 Lab Routine 04/27/2024 6:24 AM [facility] Comprehensive metabo lic 2000 panel - Serum or Plasma [facility] Patient Education Diabetes and diet [facility] Work Phone: [facility] Immunizations Immunization Date Immunization Notes Care Provider Fa cility 03-14-2024 influenza, seasonal, injectable, preservative free Blossom Cody NP Work Phone: [facility] 03-14-2024 influenza virus vacc ine, unspecified formulation Blossom Glo CORONER Work Phone: [facility] 07-05-2023 tetanus and diphther ia toxoids, adsorbed, preservative free, for adult use (2 Lf of tetanus toxoid and 2 Lf of diphtheria toxoid) Natalie Hernandez MD Work Phone: [facility] 03-24-2023 influenza, injectabl e, quadrivalent, preservative free Blossom Glo CORONER Work Phone: [facility] 03-24-2023 influenza virus vacc ine, unspecified formulation Natalie Hernandez MD Work Phone: [facility] 08-26-2021 tetanus and diphther ia toxoids, adsorbed, preservative free, for adult use (5 Lf of tetanus toxoid and 2 Lf of diphtheria toxoid) Blossom Glo CORONER Work Phone: [facility] 03-28-2021 influenza, injectabl e, quadrivalent, preservative free Blossom Glo CORONER Work Phone: [facility] 02-13-2020 Influenza, injectabl e, Madin Nel Canine Kidney, preservative free, quadrivalent Blossom Glo CORONER Work Phone: [facility] 02-22-2019 influenza, injectabl e, quadrivalent, preservative free Blossom Glo CORONER Work Phone: [facility] 02-07-2018 influenza, injectabl e, quadrivalent, preservative free Blossom Glo CORONER Work Phone: [facility] Payers Date Payer Category Payer Private Health Insurance [facility] [id number] 2022 Unknown [id number] 2020 Self-pay [id number] 1979 Unknown [id number] 2.16.840.1.843771.3.579. 2.593 1979 Unknown [id number] 2.16.840.1.014431.3.579. 2.593 1979 Unknown [id number] 2.16.840.1.904977.3.579. 2.593 1979 Unknown [id number] 2.16.840.1.626582.3.579. 2.593 1979 Unknown [id number] 2.16.840.1.533286.3.579. 2.593 1979 Unknown [id number] 2.16.840.1.381552.3.579. 2.593 1979 Unknown [id number] 2.16.840.1.616400.3.579. 2.593 1979 Unknown [id number] 2.16.840.1.930267.3.579. 2.593 1979 Unknown [id number] 2.16.840.1.973064.3.579. 2.593 1979 Unknown [id number] 2.16.840.1.880507.3.579. 2.593 1979 Unknown [id number] 2.16.840.1.708746.3.579. 2.593 1979 Unknown [id number] 2.16.840.1.782402.3.579. 2.593 1979 Unknown [id number] 2.16.840.1.286646.3.579. 2.593 1979 Unknown [id number] 2.16.840.1.466024.3.579. 2.593 1979 Unknown [id number] 2.16.840.1.910865.3.579. 2.593 1979 Unknown [id number] 2.16.840.1.704484.3.579. 2.593 1979 Unknown [id number] 2.16.840.1.842699.3.579. 2.593 1979 Unknown [id number] 2.16.840.1.016267.3.579. 2.593 1979 Unknown [id number] 2.16.840.1.400857.3.579. 2.593 1979 Unknown [id number] 2.16.840.1.261968.3.579. 2.593 1979 Unknown [id number] 2.16.840.1.446946.3.579. 2.593 1979 Unknown [id number] 2.16.840.1.800726.3.579. 2.593 1979 Unknown [id number] 2.16.840.1.238981.3.579. 2.593 1979 Unknown [id number] 2.16.840.1.633884.3.579. 2.593 1979 Unknown [id number] 2.16.840.1.526580.3.579. 2.593 1979 Unknown [id number] 2.16.840.1.846707.3.579. 2.593 1979 Unknown [id number] 2.16.840.1.565830.3.579. 2.593 1979 Unknown [id number] 2.16.840.1.368762.3.579. 2.593 1979 Unknown [id number] 2.16.840.1.103494.3.579. 2.593 1979 Unknown [id number] 2.16.840.1.620741.3.579. 2.593 1979 Unknown [id number] 2.16.840.1.953613.3.579. 2.593 1979 Unknown [id number] 2.16.840.1.697790.3.579. 2.593 1979 Unknown [id number] 2.16.840.1.006781.3.579. 2.593 1979 Unknown [id number] 2.16.840.1.809474.3.579. 2.593 1979 Unknown [id number] 2.16.840.1.803559.3.579. 2.593 1979 Unknown [id number] 2.16.840.1.999054.3.579. 2.593 1979 Unknown [id number] 2.16.840.1.982636.3.579. 2.593 1979 Unknown [id number] 2.16.840.1.779979.3.579. 2.593 1979 Unknown [id number] 2.16.840.1.577727.3.579. 2.593 1979 Unknown [id number] 2.16.840.1.149658.3.579. 2.593 1979 Unknown [id number] 2.16.840.1.255612.3.579. 2.593 1979 Unknown [id number] 2.16.840.1.805066.3.579. 2.1259 1979 Unknown [id number] 2.16.840.1.760989.3.579. 2.1259 1979 Unknown [id number] 2.16.840.1.632739.3.579. 2.1259 1979 Unknown [id number] 2.16.840.1.618650.3.579. 2.1258 1979 Unknown [id number] 2.16.840.1.589229.3.579. 2.1258 1979 Unknown [id number] 2.16.840.1.039120.3.579. 2.1258 1979 Unknown [id number] 2.16.840.1.772126.3.579. 2.1258 1979 Unknown [id number] 2.16.840.1.547312.3.579. 2.1258 1979 Unknown [id number] 2.16.840.1.553537.3.579. 2.9 1959 Unknown [id number] 2.16.840.1.626914.19 1959 Unknown [id number] 2.16.840.1.940846.19 Unknown [id number] 2.16.840.1.761259.3.579. 2.531 Unknown [id number] 2.16.840.1.774042.3.579. 2.531 Social History Date Type Detail Facility Unknown if ever smoked [employer] Other Start: 03-23-2023 End: 04-19-[address] [facility] Start: 12-21-2022 Tobacco smoking status [facility] Never smoked tobacco [facility] Start: 12-21-2022 Tobacco use and exposure Smokeless tobacco non-user [facility] Start: 05-18-2023 End: 04-27-2024 Alcohol intake Current drinker of alcohol (finding) [facility] Start: 03-23-2023 End: 05-18-[address] [facility] Within the last year , have you been afraid of your partner or ex-partner? Patient refused [facility] Are you now , , , , never or living with a partner? Refused [facility] (I/We) worried whether (my/our) food would run out before (I/we) got money to buy more. DK or Refused [facility] Start: 1980 Sex Assigned At Not on file [facility] Start: 1979 Sex Assigned At Male F [facility] Start: 10-19-2023 Tobacco smoking status NHIS [...] of toe of right foot, subsequent encounter ([facility]/HCC) Comments: Sees Dr Feldman and Oscar Dyslipidemia ([facility]) Comments: Lipids: Chol 126, Trig [...] valgus, unspecified laterality: Sees Podiatry Morbid obesity ([facility]/HCC): See above Vitamin B12 deficiency: 374 on recent lab in Jan Lipoprotein deficiency disorder F/U in July or August for recheck-hypertension/Diabetes, sooner if concerns documented in this encounter [facility] 02-28-2024 Telephone encount er Note Rx sent [facility] 02-28-2024 Miscellaneous Notes Formattin g of this note might be different from the original. Rx sent documented in this encounter [facility] 01-19-2024 History of Presen t illness [...] Type 2 diabetes mellitus with neurological manifestation ([facility]) Essential hypertension: Controlled. Pt will verify what dose he has at home ie 30 or 40mg of Lisinopril. 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 Avoid sweets, more fruits and mainly non-starchy vegetables, lean protien, nuts and routine exercise. Amputation of toe, traumatic, left, sequela ([facility]) Vitamin B 12 deficiency Comments: Last Vit B12 351 Pt declined flu vaccine today, prefers to wait into later February, could stop back here or do at work or pharmacy. Does not plan to get any more covid vaccines. Enc to think about Prevnar 20. F/U in 3 months for Wellness, sooner if concerns. PVU documented in this encounter [facility] 12-30-2023 Telephone encount er Note Rx sent [facility] 12-30-2023 Miscellaneous Notes Formattin g of this note might be different from the original. Rx sent documented in this encounter [facility] 06-16-2023 History of Presen t illness [...] sugars ranging from 120-170's. Sees [facility] in [place], next appt September 13 with them. Taking [...] so he doesn't have to go to [place]. I told him because his sugars are [...] DM care again. 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 Now has left foot toe amputated. Per pt toe is healing Ulcer of foot due to type 2 diabetes mellitus (CMS/HCC): Hx of Poorly controlled diabetes mellitus ([facility]/HCC): Last HgbA1c 8.2 Type 2 diabetes mellitus with hyperglycemia, with long-term current use of insulin ([facility]): As above Vitamin B 12 deficiency Comments: Last WNL at 351 Hx of diabetic neuropathy: Hx of 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CMS/HCC): Hx of Morbid obesity ([facility]) Comments: Enc healthy diet, watch sweets carbs. 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 (CMS/HCC): Hx of Morbid obesity: See above documented in this encounter [facility] 06-15-2023 Evaluation note Encounter Date Diagnosis Assessment Notes Jun, Type 2 diabetes mellitus with hyperglycemia (ICD-10 - E11.65) [facility] Other 01-31-2024 Evaluation note* Encounter Date Diagnosis [...] f/u with pcp for further recommendation May, rn long term care current use of insulin (ICD-10 - Z79.4) May, Vitamin B 12 deficiency (ICD-10 - E53.8) 04/01 vit b 12 351 at target May, BMI 50.0-59.9, adult (ICD-10 - Z68.43) see above May, Amputation toe (ICD-10 - Z89.429) Keep f/u with Dr. Feldman May, Cracked skin on feet (ICD-10 - R23.4) keep f/u with Dr. Feldman [facility] Other 08-28-2023 Evaluation note* Encounter Date Diagnosis [...] for Lispro/ozempic 0.5mg sent to [facility] in [place] 01/04/23 7. Prescriptions will not be filled [...] (hypertension) (ICD-10 - I10) on julissa Dec, rn long term care current use of insulin (ICD-10 - Z79.4) Dec, Vitamin B 12 deficiency (ICD-10 - E53.8) 12/30 vit b 12 335 at target Dec, BMI 50.0-59.9, adult (ICD-10 - Z68.43) see above Dec, Wound of foot (ICD-10 - S91.309A) pt has apt scheduled with Dr. Feldman today [facility] Other 05-30-2023 NotePROCEDURE: XR FOOT LT MIN [...] Electronically authenticated by: FRANCO FRANCES Date: 2022-10-06 14:13[facility]05-04-2023 Evaluation note* Encounter Date Diagnosis Assessment Notes Treatment Notes Treatment Clinical Notes September, Type 2 diabetes mellitus with hyperglycemia (ICD-10 - E11.65) [facility] Other [id number] NotePROCEDURE: XR FOOT LT MIN 3 VIEWS [...] Electronically authenticated by: FERN SOSA Date: 2022-08-24 12:46[facility]02-16-2023 Evaluation note* Encounter Date Diagnosis Assessment Notes Treatment Notes Treatment Clinical Notes Jun, Type 2 diabetes mellitus with hyperglycemia (ICD-10 - E11.65) 1. Uncontrolled, a Type 2 diabetes with A1c of 8.2% 2. Blood glucose levels above target. Discussed with pt restarting ozempic, he had s/e from higher dose ozempic 1mg and concern with cost works at [employer]. Pt agreeable to starting sample ozempic 0.5mg [...] issues. 6. Prescriptions: Syringes/ozempic/st eglatro sent to [facility] in [place] 06/25/22 7. Prescriptions will not be filled [...] Jun, BMI 50.0-59.9, adult (ICD-10 - Z68.43) [facility] Other 02-07-2023 NotePROCEDURE: XR ANKLE LT MIN [...] Electronically authenticated by: GISSEL RUBIO Date: 2022-06-16 16:33[facility]02-07-2023 NotePROCEDURE: XR ANKLE LT MIN 3 [...] Electronically authenticated by: GISSEL RUBIO Date: 2022-06-16 16:33[facility]08-30-2022 Evaluation note* Encounter Date Diagnosis Assessment [...] (hypertension) (ICD-10 - I10) on julissa Dec, rn long term care current use of insulin (ICD-10 - Z79.4) Dec, Vitamin B 12 deficiency (ICD-10 - E53.8) 12/28 vit b 12 423 at target Dec, BMI 45.0-49.9, adult (ICD-10 - Z68.42) 14 pound weight loss from last visit, continue with weight loss efforts [facility] [facility] Other 01-01-2021 History general Narrative - Reported* Type Description Date Medical History type II diabetes Medical History hypertension Medical History hyperlipidemia Medical History covid 05/2020 Surgical History Ulcer on left great toe X2 Surgical History Partial amputation Right great toe 01/2021 Surgical History All toes right foot amputated Hospitalization History Toe infection 2017 [facility] Other 01-01-2021 History general Narrative - Reported* Type Description Date Medical History type II diabetes Medical History hypertension Medical History hyperlipidemia Medical History covid 05/2020 Surgical History Ulcer on left great toe X2 Surgical History Partial amputation Right great toe 01/2021 Surgical History All toes right foot amputated Surgical History Left great toe corre ctive surgery with Dr. Feldman in [place] 10/2022 Hospitalization History Toe infection 2017 [facility] Other [place] complaint+Reason for visit Narrative* Chief Complaint no meter Reason for Visit BMI 50.0-59.9, adult Dietary counseling and surveillance Hypertension Mixed hyperlipidemia Type 2 diabetes mellitus with hyperglycemia [facility] Work Phone: [place] complaint+Reason for visit Narrative* Chief Complaint meter Reason for Visit BMI 50.0-59.9, adult Dietary counseling and surveillance Hypertension Mixed hyperlipidemia Type 2 diabetes mellitus with hyperglycemia Wound of left foot Wound of right foot [facility] Work Phone: Evaluation noteNo InformationNortWell[facility] [employer] Other Evaluation note* Diagnosis Diabetic polyneuropathy associated [...] neuropathy, with long-term current use of insulin ([facility]) custodial (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 (Z79.4) Acquired absence of other toe(s), unspecified side (Z89.429) Type 2 diabetes mellitus with diabetic neuropathy, with long-term current use of insulin ([facility]) Body mass index [BMI] 50.0-59.9, adult (Z68.43) Type 2 diabetes mellitus with foot ulcer, with long-term current use of insulin ([facility]) 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.49) Status post amputation of lesser toe, unspecified laterality ([facility]) Arthritis of left foot Acquired hallux valgus of left foot Type 2 diabetes mellitus with hyperglycemia, with long-term current use of insulin ([facility]) Morbid obesity ([facility]) Morbid obesity documented in this encounter [facility] HealthcareEvaluation noteNo assessment information availableGe[facility] Work Phone: Evaluation note* Diagnosis Onset Date Resolution Status BMI 50.0-59.9, adult acute Dietary counseling and surveillance acute Hypertension acute Mixed hyperlipidemia acute Type 2 diabetes mellitus with hyperglycemia acute [facility] Work Phone: Evaluation note* Diagnosis Onset Date Resolution Status BMI 50.0-59.9, adult acute Dietary counseling and surveillance acute Hypertension acute Mixed hyperlipidemia acute Type 2 diabetes mellitus with hyperglycemia acute Wound of left foot acute Wound of right foot acute [facility] Work Phone: Evaluation note* Diagnosis Pure hyperglyceridemia ([facility]) Pure hyperglyceridemia documented in this encounter 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, subsequent encounter ([facility]) Type 2 diabetes mellitus with hyperglycemia, with long-term current use of insulin ([facility]) Dyslipidemia ([facility]) Other and unspecified hyperlipidemia Hypertriglyceridemia ([facility]) Pure hyperglyceridemia Vitamin B 12 deficiency Other B-complex deficiencies Pure hyperglyceridemia ([facility]) Pure hyperglyceridemia documented [facility]* Diagnosis Diabetic polyneuropathy associated with type 2 diabetes mellitus ([facility])- Primary Wellness examination Type 2 diabetes mellitus with neurological manifestation ([facility]) Essential hypertension Unspecified essential hypertension 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, subsequent encounter ([facility]) Dyslipidemia ([facility]) Other and unspecified hyperlipidemia Hypertriglyceridemia ([facility]) Pure hyperglyceridemia Poorly controlled diabetes mellitus ([facility]) Type II or unspecified type diabetes mellitus without mention of complication, not stated as uncontrolled Type 2 diabetes mellitus with hyperglycemia, with long-term current use of insulin ([facility]) Diabetic autonomic neuropathy associated with type 2 diabetes mellitus ([facility]) Type II or unspecified type diabetes mellitus with neurological manifestations, not stated as uncontrolled Acquired hallux valgus, unspecified laterality Morbid obesity ([facility]) Morbid obesity Vitamin B 12 deficiency Other B-complex deficiencies 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[facility]) Lipoprotein deficiencies documented in this encounter [facility] [...] section and content) DATE CREATED AUTHOR 08/27/2021 [facility] dical Specialist DATE CREATED AUTHOR AUTHOR'S ORGANIZ ATION 10/17/2022 [facility] DATE CREATED AUTHOR AUTHOR'S ORGANIZ ATION 04/22/2024 [facility] dical Specialists EPIC DATE CREATED AUTHOR AUTHOR'S ORGANIZ ATION 04/29/2024 [facility] REASON FOR VISIT (unrecogniz ed [...] January 26, 2024 End: January 26, 2024 Composite Science Teacher Relationship Specialty Start Date End Date Natalie Hernandez MD [address] [place] [address] PCP - General Family Medicine 09/15/22 Composite Science Teacher Relationship Specialty Start Date End Date Natalie Hernandez MD [address] [place] [address] PCP - General Family Medicine 09/15/22 Team [...] October 19, 2023 End: October 19, 2023 Composite Science Teacher Relationship Specialty Start Date End Date Natalie Hernandez MD [address] [place] [address] PCP - General Family Medicine 09/15/22 Blossom Cody NP [address] [place] [place] [address] Nurse Practitioner Family Medicine 01/19/24 Composite Science Teacher Relationship Specialty Start Date End Date Natalie Hernandez MD [address] [place] [address] PCP - General Family Medicine 09/15/22 Blossom Cody NP [address] [facility] [place] [address] Nurse Practitioner Family Medicine 01/19/24 Composite Science Teacher Relationship Specialty Start Date End Date Natalie Hernandez MD [address] [place] [address] PCP - General Family Medicine 09/15/22 Blossom Cody NP [address] [facility] [place] [address] Nurse Practitioner Family Medicine 01/19/24 Composite Science Teacher Relationship Specialty Start Date End Date Natalie Hernandez MD [address] [facility] [place] [address] PCP - General Family Medicine 09/15/22 Blossom Cody NP [address] [place] [address] Nurse Practitioner Family Medicine 01/19/24 Composite Science Teacher Relationship Specialty Start Date End Date Natalie Hernandez MD [address] [facility] [place] [address] PCP - General Family Medicine 09/15/22 Composite Science Teacher Relationship Specialty Start Date End Date Natalie Hernandez MD [address] [place] [address] PCP - General Family Medicine 09/15/22 Composite Science Teacher Relationship Specialty Start Date End Date Natalie Hernandez MD [address] [place] [address] PCP - General Family Medicine 09/15/22 Bolssom Cody NP [address] [facility] [place] [address] Nurse Practitioner Family Medicine 01/19/24 Composite Science Teacher Relationship Specialty Start Date End Date Natalie Hernandez MD [address] [place] [address] PCP - General Family Medicine 09/15/22 Blossom Cody NP [address] [place] [address] Nurse Practitioner Family Medicine 01/19/24 Goals (unrecognized [...] BE BASED ON THE PRIMARY CLINICAL RECORDS. [facility]. provides no warranty or guarantee of the accuracy or completeness of information in this document.
== END 2024-05-23 10:01 | disposition home or self-care (01) ==
LOC: WC 05-25 10:22
PROVIDERS: PCP Family Medicine; Visit Provider Physician Assistant
DX: E11.621 Type 2 diabetes mellitus with foot ulcer (principal); L97.412 Non-pressure chronic ulcer of right heel and midfoot with fat layer exposed
CPT/HCPCS: 29515

== ENCOUNTER 2024-05-26 18:04 | Emergency (ER) | payer OTHER, SELFPAY ==
[2024-05-26 18:05] VITALS: BP 147/69; PULSE 96; TEMP 36.7; O2SAT 98; BMI 48.8
--- OUTSIDE RECORDS SUMMARY | 2024-05-26 18:13 | XMS_ITS | CCD ---
Author Organization [facility] Care Team Providers Care Cra Officer Name Role Phone Link Ortega Unavailable NATANAEL [...] Care Provider MD Damon Claros Attending Provider [phone] MD Shelby [facility] Provider [phone] Natalie Hernandez MD Primary Care Provider Glo DRIVER MERCHANDISER, Blossom Kong Unavailable BLOSSOM CODY Attending Unavailable GLO, BLOSSOM Kong Attending Unavailable RUSHER, MIRLANDE Zhang Attending Unavailable RUSHER, MIRLANDE Zhang Attending Unavailable GLO, BLOSSOM Kong Attending Unavailable RUSHER, MIRLANDE S Attending Unavailable RUSHER, MIRLANDE S Attending Unavailable GLO, BLOSSOM A Attending Unavailable GLO, BLOSSOM Kong Attending Unavailable Wonderly, [facility] Care Unavailable Michelleander, Natanael Marks Admitting Unavailable Highlander, Natanael Marks Attending Unavailable Shelby, [facility] Care Unavailable Damon Claros Admitting [...] sources) Long-term current use of insulin; Translations: [long term care administrator (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] 06-17-2023 Episodic Other aftercare (4 sources) long term care administrator (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 Onset: 01-06-2022 Resolved: [...] Test Name Value Interpretation Reference Range Facility [facility] 04-26-2024 L Specimen: [id number] Received: 04/26/24 Status: CALEB Gabriel Num: [id number] Spec Type: Surgical Subm Dr: Natanael Feldman DPM, Tissues: A Skin-Other than Cyst, tag, debridement or plastic repair (RT FOOT ULCER) Procedures: Yenny SCOTT/Mary Robles Age/ Patient Sex Location Account Attending Physician Trev Ontiveros 43/M LABELL [id number] Natanael Feldman DPM, SPEC NUM: [id number] RECD: 04/26/24 STATUS: CALEB GABRIEL NUM: [id number] MARTHA: 04/26/[address]: Natanael Feldman DPM, MS ENTERED: 04/26/[address] [facility]: Farzana Rene SPEC TYPE: Surgical DEPT: DERRICK PLUNKETT ENTERED BY: [id number] RECV BY: [id number] ORDERED: HE, Gross/Micro L4 ORDERED: HE, Gross/Micro [...] reveal purple-brown to green, softened cut surfaces. Director Digital [employer] sections are submitted in a single cassette. (1, ss, [id number] A) CPT Codes 90238 Specimen: [id number] Received: 04/26/24 Status: CALEB Nery Num: [id number] Spec Type: Surgical Subm Dr: Natanael Feldman DPM, MS Tissues: A Skin-Other than Cyst, tag, debridement or plastic repair (RT FOOT ULCER) Procedures: HE, Gross/Micro L4 Patient: Trev Ontiveros [id number] (Continued) Signed (signature on file) Melanie Roca MD 04/27/24 1349 Normal [facility] A1C HEMOGLOBINon 06-09-2023 HbA1c (Bld) [Mass fraction] 8.2 % [facility] Other Glucose - FINGER STICKon Glucose [Mass/Vol] 170 mg/dL [facility] Other HbA1c (Bld) [Mass fraction]o n 06-09-2023 A1C HEMOGLOBIN [employer] Other A1C HEMOGLOBINon 01-04-2023 HbA1c (Bld) [Mass fraction] 8.9 % [facility] Other Glucose - FINGER STICKon Glucose [Mass/Vol] 201 mg/dL [facility] Other HbA1c (Bld) [Mass fraction]o n 01-04-2023 A1C HEMOGLOBIN [employer] Other PROF CHEM 8 (BAS METB)on Anion gap [Moles/Vol] 14.3 mmol/L Normal The [facility] Comment on above: Performed By: #### B MP #### [facility] [address] [address] [address] Lauri Todd Calcium [Mass/Vol] 9.4 mg/dL Normal 8.5-10.1 [facility] Comment on above: Performed By: #### B MP #### [facility] [address] [address] [address] Lauri Todd Chloride [Moles/Vol] 101 mmol/L Normal 98-107 [facility] [place] [facility] Comment on above: Performed By: #### B MP #### [facility] [address] [address] [address] Lauri Todd CO2 [Moles/Vol] 26.2 mmol/L Normal 21.0-32.0 [facility] Comment on above: Performed By: #### B MP #### [facility] [address] [place] [address] Dr. Lauri Todd Creatinine [Mass/Vol] 0.90 mg/dL Normal 0.70-1.30 [facility] [place] [facility] Comment on above: Performed By: #### B MP #### [facility] [address] [address] [address] Lauri Todd EGFR-AF ITALIAN >60 Normal >=60 [facility] Comment on above: Performed By: #### B MP #### [facility] [address] [place] [address] Dr. Lauri Todd EGFR-NON AF ITALIAN >60 Normal >=60 [facility] [place] [facility] Comment on above: Performed By: #### B MP #### [facility] [address] [address] [address] Lauri Todd Glucose [Mass/Vol] 146 mg/dL Critically high 74-106 [facility] Comment on above: Performed By: #### B MP #### [facility] [address] [place] [address] Dr. Lauri Todd Potassium [Moles/Vol] 4.5 mmol/L Normal 3.5-5.1 [facility] [place] [facility] Comment on above: Performed By: #### B MP #### [facility] [address] [place] [address] Dr. Lauri Todd Sodium [Moles/Vol] 137 mmol/L Normal 136-145 [facility] Comment on above: Performed By: #### B MP #### [facility] [address] [place], [place] [address] Dr. Lauri Todd Urea nitrogen [Mass/Vol] 16.0 mg/dL Normal 7.0-18.0 [facility] [place] [facility] Comment on above: Performed By: #### B MP #### [facility] [address] [place], [place] [address] Dr. Lauri Todd Urea nitrogen/Creatinin e [Mass ratio] 17.8 mg/mg Normal [facility] Comment on above: Performed By: #### B MP #### [facility] [address] [address] [address] Lauri Todd A1C HEMOGLOBINon 06-25-2022 HbA1c (Bld) [Mass fraction] 8.2 % [facility] Other Glucose - FINGER STICKon Glucose [Mass/Vol] 180 mg/dL [facility] Other HbA1c (Bld) [Mass fraction]o n 06-25-2022 [facility] Other XR FOOT LT MIN 3 VIEWSon [...] by: RAFAEL WHITAKER Date: 2022-05-25 11:52 Normal [facility] A1C HEMOGLOBINon 01-06-2022 HbA1c (Bld) [Mass fraction] 7 % [facility] [employer] Other Glucose - FINGER STICKon Glucose [Mass/Vol] 148 mg/dL [facility] [employer] Other HbA1c (Bld) [Mass fraction]o n 01-06-2022 A1C HEMOGLOBIN [facility] [employer] Other Basic Metabolic Panelon - Anion gap [Moles/Vol] 20 mmol/L Normal 12-20 [facility] Comment on above: Result Comment: Effe ctive 05/15/2019 reference range changed. Performed By: #### B MP #### [facility] [address], [place] [id number] Calcium [Mass/Vol] 10.0 mg/dL Normal 8.6-10.2 [facility] Comment on above: Performed By: #### B MP #### [facility] [address], [place] [id number] Chloride [Moles/Vol] 100 mmol/L Normal 98-107 [facility] Comment on above: Performed By: #### B MP #### [facility] [address], [place] [id number] CO2 [Moles/Vol] 22 mmol/L Normal 20-31 [facility] Comment on above: Performed By: #### B MP #### [facility] [address], [place] [id number] Creatinine [Mass/Vol] 0.8 mg/dL Normal 0.7-1.4 [facility] Comment on above: Performed By: #### B MP #### [facility] [address], [place] [id number] eGFRAA 129 mL/min/1.73m2 Normal >60 [facility] Comment on above: Performed By: #### B MP #### [facility] [address], [place] [id number] eGFRNAA 107 mL/min/1.73m2 Normal >60 [facility] Comment on above: Performed By: #### B MP #### [facility] [address] [place] [id number] Glucose [Mass/Vol] 140 mg/dL High 65-99 [facility] [place] [employer] Of [employer] Comment on above: Result Comment: For FASTING Glucose --- ADA reference ranges: Normal 65-99 mg/dl Prediabetes 100-125 Diabetes >/= 126 Performed By: #### B MP #### [facility] [address] [facility] [place] [id number] Potassium [Moles/Vol] 4.3 mmol/L Normal 3.5-5.5 [facility] Specialist Comment on above: Performed By: #### B MP #### [facility] [address] [facility] [place] [id number] Sodium [Moles/Vol] 137 mmol/L Normal 135-146 [facility] Vice President Of Sales Comment on above: Performed By: #### B MP #### [facility] [address], [place] [id number] Urea nitrogen [Mass/Vol] 17 mg/dL Normal 7-25 [facility] Vice President Of Sales Comment on above: Performed By: #### B MP #### [facility] [address], [place] [id number] Vital Signs Date Time Vital Sign Value Performing Clinician Facility 04-19-2024 09:47-0500 Body mass index (BMI) [Ratio] 52.21 kg/m2 Blossom Cody DRIVER MERCHANDISER Work Phone: [facility] 04-19-2024 09:47-0500 Body weight 172.19 kg Blossom Cody DRIVER MERCHANDISER Work Phone: [facility] 04-19-2024 09:47-0500 Diastolic blood pressure 72 mm[Hg] Blossom Cody DRIVER MERCHANDISER Work Phone: [facility] 04-19-2024 09:47-0500 Heart rate 84 /min Blossom Cody DRIVER MERCHANDISER Work Phone: [facility] 04-19-2024 09:47-0500 Systolic blood pressure 128 mm[Hg] Blossom Cody DRIVER MERCHANDISER Work Phone: [facility] 01-26-2024 09:59-0400 Body height 182.88 cm [facility] 01-26-2024 09:59-0400 Body mass index (BMI) [Ratio] 51.2 kg/m2 [facility] 01-26-2024 09:59-0400 Body weight 171.54 kg [facility] 01-26-2024 09:59-0400 Diastolic blood pressure 83 mm[Hg] [facility] 01-26-2024 09:59-0400 Heart rate 81 /min [facility] 01-26-2024 09:59-0400 Respiratory rate 18 /min [facility] 01-26-2024 09:59-0400 SaO2% (BldA) [Mass fraction] 94 % [facility] 01-26-2024 09:59-0400 Systolic blood pressure 155 mm[Hg] [facility] 01-19-2024 11:00-0400 Body mass index (BMI) [Ratio] 51.82 kg/m2 Blossom Cody DRIVER MERCHANDISER Work Phone: [facility] 01-19-2024 11:00-0400 Body weight 170.91 kg Blossom Lozoyael DRIVER MERCHANDISER Work Phone: [facility] 01-19-2024 11:00-0400 Diastolic blood pressure 78 mm[Hg] Blossom Lozoyael DRIVER MERCHANDISER Work Phone: [facility] 01-19-2024 11:00-0400 Heart rate 84 /min Blossomdidier Lozoyael DRIVER MERCHANDISER Work Phone: [facility] 01-19-2024 11:00-0400 Systolic blood pressure 136 mm[Hg] Blossom Lozoyael DRIVER MERCHANDISER Work Phone: [facility] 10-19-2023 11:31-0400 Body height 182.88 cm [facility] 10-19-2023 11:31-0400 Body mass index (BMI) [Ratio] 51.7 kg/m2 [facility] 10-19-2023 11:31-0400 Body weight 172.87 kg [facility] 10-19-2023 11:31-0400 Diastolic blood pressure 83 mm[Hg] [facility] 10-19-2023 11:31-0400 Heart rate 74 /min [facility] 10-19-2023 11:31-0400 Respiratory rate 18 /min [facility] 10-19-2023 11:31-0400 SaO2% (BldA) [Mass fraction] 97 % [facility] 10-19-2023 11:31-0400 Systolic blood pressure 149 mm[Hg] [facility] 06-16-2023 11:33-0500 Diastolic blood pressure 84 mm[Hg] Blossomdidier Lozoyael DRIVER MERCHANDISER Work Phone: [facility] 06-16-2023 11:33-0500 Systolic blood pressure 154 mm[Hg] Blossom Lozoyael DRIVER MERCHANDISER Work Phone: [facility] 06-16-2023 11:02-0500 Body mass index (BMI) [Ratio] 52.12 kg/m2 Blossomdidier Lozoyael DRIVER MERCHANDISER Work Phone: [facility] 06-16-2023 11:02-0500 Body weight 171.91 kg Blossomdidier Lozoyael DRIVER MERCHANDISER Work Phone: [facility] 06-16-2023 11:02-0500 Heart rate 92 /min Blossom Lozoyael DRIVER MERCHANDISER Work Phone: [facility] 06-09-2023 08:45-0500 Body height Tondra Mapus Other [employer] [facility] [employer] Other 06-09-2023 08:45-0500 Body height 182.88 cm MD Natalie Hernandez Work Phone: [facility] 06-09-2023 08:45-0500 Body mass index (BMI) [Ratio] 51.33 kg/m2 Tondra Mapus Other [employer] [facility] [employer] Other 06-09-2023 08:45-0500 Body weight 171.69 kg Tondra Mapus Other [employer] Other 06-09-2023 08:45-0500 Body weight 171.68 kg MD Natalie Hernandez Work Phone: [facility] 06-09-2023 08:45-0500 Diastolic blood pressure 80 mm[Hg] Tondra Mapus Other [facility] 06-09-2023 08:45-0500 Respiratory rate 18 /min Tondra Mapus Other [facility] Other 06-09-2023 08:45-0500 SaO2% (BldA) [Mass fraction] 94 % Tondra Mapus Other [employer] Other 06-09-2023 08:45-0500 Systolic blood pressure 148 mm[Hg] Tondra Mapus Other [facility] 01-04-2023 08:45-0400 Body height Tondra Mapus Other [facility] Other 01-04-2023 08:45-0400 Body mass index (BMI) [Ratio] 51.37 kg/m2 Tondra Mapus Other [employer] Other 01-04-2023 08:45-0400 Body weight 171.82 kg Tondra Mapus Other [facility] Other 01-04-2023 08:45-0400 Diastolic blood pressure 85 mm[Hg] Tondra Mapus Other [facility] Other 01-04-2023 08:45-0400 Respiratory rate 18 /min Tondra Mapus Other [facility] Other 01-04-2023 08:45-0400 SaO2% (BldA) [Mass fraction] 98 % Tondra Mapus Other [employer] Other 01-04-2023 08:45-0400 Systolic blood pressure 150 mm[Hg] Tondra Mapus Other [facility] Other 06-25-2022 09:45-0500 Body height Tondra Mapus Other [facility] Other 06-25-2022 09:45-0500 Body mass index (BMI) [Ratio] 51.14 kg/m2 Tondra Mapus Other [facility] Other 06-25-2022 09:45-0500 Body weight 171.05 kg Tondra Mapus Other [facility] Other 06-25-2022 09:45-0500 Diastolic blood pressure 80 mm[Hg] Tondra Mapus Other [facility] Other 06-25-2022 09:45-0500 Respiratory rate 18 /min Tondra Mapus Other [facility] Other 06-25-2022 09:45-0500 SaO2% (BldA) [Mass fraction] 95 % Tondra Mapus Other [facility] Other 06-25-2022 09:45-0500 Systolic blood pressure 139 mm[Hg] Tondra Mapus Other [facility] Other 01-06-2022 09:45-0400 Body height Tondra Mapus Other [facility] Other 01-06-2022 09:45-0400 Body mass index (BMI) [Ratio] 48.28 kg/m2 Tondra Mapus Other [facility] Other 01-06-2022 09:45-0400 Body weight 161.48 kg Tondra Mapus Other [facility] Other 01-06-2022 09:45-0400 Diastolic blood pressure 71 mm[Hg] Tondra Mapus Other [facility] Other 01-06-2022 09:45-0400 Respiratory rate 20 /min Tondra Mapus Other [facility] Other 01-06-2022 09:45-0400 SaO2% (BldA) [Mass fraction] 95 % Tondra Mapus Other [facility] Other 01-06-2022 09:45-0400 Systolic blood pressure 124 mm[Hg] Tondra Mapus Other [employer] Other Encounters Encounter Date Encounter Type Care Provider Facility Start: 04-27-2024 End: 04-29-2024 [facility] Result Encounter Generic External Data Provider [facility] External Department Unsolicited Start: 04-27-2024 End: 04-29-2024 [facility] Result Encounter Generic External Data Provider [facility] External Department Unsolicited Start: 04-26-2024 End: 04-26-2024 [facility] Facility:[facility] Start: 04-25-2024 End: 04-27-2024 [facility] Result Encounter Generic External Data Provider [facility] External Department Unsolicited Start: 04-25-2024 End: 04-27-2024 [facility] Result Encounter Generic External Data Provider [facility] External Department Unsolicited Start: 04-19-2024 End: 04-19-2024 Cedrick Cody NP Work Phone: [facility] Start: 04-19-2024 End: 04-19-2024 Bamboo flowsheet Blossom Cody DRIVER MERCHANDISER Work Phone: [facility] Start: 04-19-2024 End: 04-19-2024 Patient encounter status Blossom Cody DRIVER MERCHANDISER Work Phone: [facility] Start: 04-19-2024 End: 04-19-2024 Periodic preventive med est patient 40-64yrs Blossom Cody DRIVER MERCHANDISER Work Phone: [facility] Comment on above: Diabetic polyneuropa thy associated with type 2 diabetes mellitus (CMS/HCC) (Primary Dx); Wellness examination; 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); Essential hypertension; 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, subsequent encounter ([facility]/HCC); Dyslipidemia (CMS/HCC); Hypertriglyceridemia (CMS/HCC); Poorly [...] FM Comment on above: Pure hyperglyceridem ia ([facility]/HCC) Start: 01-26-2024 End: 01-26-2024 ambulatory [facility] Work Phone: Start: 01-26-2024 End: 01-26-2024 Patient encounter procedure [facility] Work Phone: Start: 01-20-2024 Non-patient / Non-visit [facility] Work Phone: Start: 01-19-2024 End: 01-19-2024 Bamboo flowsheet Blossom Cody DRIVER MERCHANDISER Work Phone: [facility] Start: 01-19-2024 End: 01-19-2024 Bamboo flowsheet Blossom Cody DRIVER MERCHANDISER Work Phone: [facility] Start: 01-19-2024 End: 01-19-2024 Office outpatient visit 25 minutes Blossom Cody DRIVER MERCHANDISER Work Phone: [facility] Comment on [...] Not Available Start: 10-19-2023 End: 10-19-2023 ambulatory [facility] Work Phone: Start: 10-19-2023 End: 10-19-2023 Patient encounter procedure [facility] Work Phone: Start: 10-12-2023 End: 10-12-2023 ambulatory MIRLANDE MOORE Not Available Start: 09-15-2023 End: 09-15-2023 ambulatory BLOSSOM CODY Not Available Start: 09-06-2023 End: 09-06-2023 ambulatory MIRLANDE MOORE Not Available Start: 08-02-2023 End: 08-02-2023 ambulatory MIRLANDE MOORE Not Available Start: 07-07-2023 End: 07-07-2023 ambulatory BLOSSOM CODY Not Available Start: 06-16-2023 Bamboo flowsheet Blossom cabrales DRIVER MERCHANDISER Work Phone: [facility] Start: 06-16-2023 Bamboo flowsheet Blossom cabrales DRIVER MERCHANDISER Work Phone: [facility] Start: 06-16-2023 End: 06-16-2023 Office outpatient visit 25 minutes Blossom Cody DRIVER MERCHANDISER Work Phone: [facility] Comment on above: Diabetic polyneuropa thy associated with type 2 diabetes mellitus (CMS/HCC) (Primary Dx); Diabetic neuropathic arthropathy ([facility]); Type 2 diabetes mellitus with neurological manifestation ([facility]); 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, sequela ([facility]); Ulcer of foot due to type 2 diabetes mellitus ([facility]); Vitamin B 12 deficiency; Hx of diabetic neuropathy; 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CMS/HCC); Hypertriglyceridemia (CMS/[facility]); 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, 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); Essential hypertension; Nasal congestion; Type 2 diabetes mellitus with diabetic autonomic neuropathy, with long-term current use of insulin ([facility]); senior care (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 (Z79.4); Acquired absence of other toe(s), unspecified side (Z89.429); Type 2 diabetes mellitus with diabetic neuropathy, with long-term current use of insulin ([facility]); Body mass index [BMI] 50.0-59.9, adult (Z68.43); Type 2 diabetes mellitus with foot ulcer, with long-term current use of insulin ([facility]); 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.49); Status post amputation of lesser toe, unspecified laterality ([facility]); Arthritis of left foot; Acquired hallux valgus of left foot; Type 2 diabetes mellitus with hyperglycemia, with long-term current use of insulin ([facility]); Morbid obesity ([facility]) Start: 06-16-2023 End: 06-16-2023 ambulatory BLOSSOM CODY Not Available Start: 06-15-2023 End: 06-15-2023 ambulatory Tondra Mapus Other [facility] Other Start: 06-15-2023 Telephone encounter Tondra Dayannaus [facility] Start: 06-09-2023 (DM) Diabetes Tondra Dayannaus [facility] Start: 06-09-2023 End: 06-09-2023 Discharged Recurring MD Natalie Hernandez [facility] Work Phone: Start: 06-09-2023 End: 06-09-2023 ambulatory MD Natalie Hernandez Work Phone: [facility] Other Start: 06-09-2023 End: 06-09-2023 Patient encounter procedure MD Natalie Hernandez Work Phone: [facility]- Start: 01-04-2023 (DM) Diabetes Tondra Shannon [facility] Start: 01-04-2023 End: 01-04-2023 ambulatory Tondra Mapus Other [facility] Other Start: 12-21-2022 End: 12-21-2022 ambulatory Tondra Mapus Other [facility] Other Start: 12-21-2022 Telephone encounter Tondra Mapus [facility] Start: 10-12-2022 ambulatory NATANAEL FELDMAN Faci lity:H1 Start: 10-06-2022 End: 10-07-2022 ambulatory NATANAEL FELDMAN Facility:[facility]1 Start: 10-01-2022 Encounter for prepro cedural cardiovascular examination NATANAEL FELDMAN [facility] Start: 10-01-2022 Encounter for prepro cedural laboratory examination NATANAEL FELDMAN [facility] Start: 09-30-2022 End: 10-01-2022 ambulatory NATANAEL Selina [facility] Facility:[facility]1 Start: 09-30-2022 End: 10-01-2022 Encounter for preprocedural laboratory examination [facility]ATANAEL Sel[facility] Facility:[facility] Start: 09-15-2022 End: 09-16-2022 ambulatory NATANAEL Marks [facility] Facility:H1 Start: 09-10-2022 End: 09-10-2022 ambulatory Tondra Mapus Other [facility] Other Start: 09-10-2022 Telephone encounter Tondra Mapus [facility] Start: 08-24-2022 End: 08-25-2022 ambulatory NATANAEL Selina [facility] Facility:H1 Start: 08-10-2022 End: 08-10-2022 ambulatory Tondra Mapus Other [facility] Other Start: 08-10-2022 Telephone encounter Tondra Mapus [facility] Start: 08-03-2022 End: 08-04-[address] NATALIE HERNANDEZ Facility:H1 Start: 07-13-2022 End: 07-14-2022 ambulatory MARTELL NAVAS Facility:H1 Start: 06-30-2022 End: 07-01-2022 ambulatory NATANAEL Selina [facility] Facility:H1 Start: 06-25-2022 (DM) Diabetes Tondra Mapus [facility] Start: 06-25-2022 End: 06-25-2022 ambulatory Tondra Mapus Other [facility] Other Start: 06-16-2022 End: 06-17-2022 ambulatory NATANAEL Selina MICHELLECAROLYNN Facility:H1 Start: 06-08-2022 End: 06-09-2022 ambulatory NATANAEL Marks [facility] Facility:H1 Start: 05-25-2022 End: 05-26-2022 ambulatory NATANAEL Marks [facility] Facility:H1 Start: 05-12-2022 End: 05-13-2022 ambulatory NATANAEL Marks [facility] Facility:H1 Start: 04-30-2022 End: 05-01-2022 ambulatory PETER [...] 02-18-2022 End: 02-18-2022 ambulatory Tondra Mapus Other [facility] Other Start: 02-18-2022 Telephone encounter Tondra Shannon [facility] Start: 02-09-2022 End: 02-10-2022 ambulatory NATANAEL Selina FELDMAN Facility:H1 Start: 01-26-2022 End: 01-27-2022 ambulatory NATANAEL FELDMAN Facility:H1 Start: 01-13-2022 End: 01-14-2022 ambulatory NATANAEL FELDMAN Facility:[facility] Start: 01-06-2022 (DM) Diabetes Tondra Shannon [facility] Start: 01-06-2022 End: 01-06-2022 ambulatory Tondra Mapus Other [facility] Other Start: 12-29-2021 End: 12-30-2021 ambulatory NATANAEL [...] post amputation of lesser toe, unspecified laterality ([facility]) Blossom Cody [employer] Work Phone: Plan of Treatment Date Care Activity Detail Author Start: 07-26-2025 Glaucoma screening Diabetes: Retinopathy Screening [facility] Start: 07-19-2024 End: 07-19-2024 Patient encounter procedure 07/19/2024 9:30 AM EDT Office Visit [facility] [address] [place] [phone] Blossom Cody NP [address] [place] [address] [facility] Start: 04-26-2024 Hemoglobin A1c measurement Diabetes: Hemoglobin A1C [facility] Start: 04-19-2024 End: 04-19-2024 Patient encounter procedure [facility] Comment on above: Diabetic polyneuropathy associated with type 2 diabetes mellitus ([facility]/HCC) (Primary Dx); Wellness examination; Type 2 diabetes mellitus with neurological manifestation ([facility]); Essential hypertension; 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, subsequent encounter ([facility]); Dyslipidemia ([facility]); Hypertriglyceridemia ([facility]); Poorly controlled diabetes mellitus ([facility]); Type 2 diabetes mellitus with hyperglycemia, with long-term current use of insulin ([facility]); Amputation of toe, traumatic, left, sequela ([facility]) Start: 03-24-2024 Urine screening for protein Diabetes: Urine Protein Screening [facility] Start: 03-15-2024 Influenza vaccination Influenza Vaccine (#1) [facility] Comment on above: Postponed from 01/09/2024 (Patient Refus ed) Start: 01-25-2024 End: 01-25-2024 Patient encounter procedure 01/25/2024 10:30 AM EDT Office Visit [facility] [address] [place] [phone] Blossom Cody NP [address] [place] [address] [facility] Start: 01-19-2024 Hemoglobin A1c measurement Diabetes: Hemoglobin A1C [facility] Start: 01-19-2024 End: 01-19-2024 Patient encounter procedure 01/19/2024 11:00 AM EDT Office Visit [facility] [address] [place] [phone] Blossom Cody NP [address] [place] [address] Diabetic polyneuropathy associated with type 2 diabetes mellitus (CMS/HCC) (Primary Dx); 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); Essential hypertension; 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, subsequent encounter (CMS/HCC); Type 2 diabetes mellitus with hyperglycemia, with long-term current use of insulin (CMS/HCC); Dyslipidemia (CMS/HCC); Hypertriglyceridemia (CMS/HCC); Amputation of toe, traumatic, left, sequela (CMS/HCC); Vitamin B 12 deficiency [facility] Comment on above: Diabetic polyneuropathy associated [...] Start: 01-09-2024 Influenza vaccination Influenza Vaccine (#1) [facility] Start: 09-15-2023 End: 09-15-2023 Patient encounter procedure 09/15/2023 9:30 AM EDT Office Visit [facility] [address] [place] [phone] Blossom Cody NP [address] [place] [address] [facility] Start: 09-07-2023 Hemoglobin A1c measurement Diabetes: Hemoglobin A1C [facility] Start: 07-26-2023 Glaucoma screening Diabetes: Retinopathy Screening [facility] Start: 07-07-2023 End: 07-07-2023 Patient encounter procedure 07/07/2023 9:00 AM EST Office Visit [facility] [address] [place] [phone] [facility] Start: 06-16-2023 End: 06-16-2023 Patient encounter procedure 06/16/2023 11:00 AM EST Office Visit [facility] [address] [place] [phone] Blossom Cody NP [address] [place] [address] Diabetic polyneuropathy associated with type 2 diabetes [...] disorder (CMS/HCC); Morbid obesity (CMS/HCC); Hypertriglyceridemia (CMS/HCC) [facility] Comment on above: Diabetic polyneuropathy [...] hyperglycemia, with long-term current use of insulin ([facility]/HCC); Vitamin B 12 deficiency; Hx of diabetic neuropathy; 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CMS/HCC); Morbid obesity ([facility]/HCC); Hypertriglyceridemia ([facility]) BLOOD CULTURE 1 BLOOD CULTURE 1 Lab Routine 04/27/2024 6:10 AM [facility] BLOOD CULTURE 2 BLOOD CULTURE 2 Lab Routine 04/25/2024 1:00 PM [facility] BLOOD CULTURE 2 BLOOD CULTURE 2 Lab Routine 04/27/2024 6:24 AM [facility] Comprehensive metabo lic 2000 panel - Serum or Plasma [facility] Patient Education Diabetes and diet [facility] Work Phone: [facility] Immunizations Immunization Date Immunization Notes Care Provider Fa cility 03-14-2024 influenza, seasonal, injectable, preservative free Blossom Cody NP Work Phone: [facility] 03-14-2024 influenza virus vacc ine, unspecified formulation Blossom Glo [employer] Work Phone: [facility] 07-05-2023 tetanus and diphther ia toxoids, adsorbed, preservative free, for adult use (2 Lf of tetanus toxoid and 2 Lf of diphtheria toxoid) Natalie Hernandez MD Work Phone: [facility] 03-24-2023 influenza, injectabl e, quadrivalent, preservative free Blossom Glo [employer] Work Phone: [facility] 03-24-2023 influenza virus vacc ine, unspecified formulation Natalie Hernandez MD Work Phone: [facility] 08-26-2021 tetanus and diphther ia toxoids, adsorbed, preservative free, for adult use (5 Lf of tetanus toxoid and 2 Lf of diphtheria toxoid) Blossom Glo [employer] Work Phone: [facility] 03-28-2021 influenza, injectabl e, quadrivalent, preservative free Blossom Glo [employer] Work Phone: [facility] 02-13-2020 Influenza, injectabl e, Madin Nel Canine Kidney, preservative free, quadrivalent Blossom Glo [employer] Work Phone: [facility] 02-22-2019 influenza, injectabl e, quadrivalent, preservative free Blossom Glo [employer] Work Phone: [facility] 02-07-2018 influenza, injectabl e, quadrivalent, preservative free Blossom Glo [employer] Work Phone: [facility] Payers Date Payer Category Payer Private Health Insurance [facility] [id number] 2022 Unknown [id number] 2020 Self-pay [id number] 1979 Unknown [id number] 2.16.840.1.261698.3.579. 2.593 1979 Unknown [id number] 2.16.840.1.717088.3.579. 2.593 1979 Unknown [id number] 2.16.840.1.944125.3.579. 2.593 1979 Unknown [id number] 2.16.840.1.779776.3.579. 2.593 1979 Unknown [id number] 2.16.840.1.444164.3.579. 2.593 1979 Unknown [id number] 2.16.840.1.534639.3.579. 2.593 1979 Unknown [id number] 2.16.840.1.618606.3.579. 2.593 1979 Unknown [id number] 2.16.840.1.741387.3.579. 2.593 1979 Unknown [id number] 2.16.840.1.472862.3.579. 2.593 1979 Unknown [id number] 2.16.840.1.641837.3.579. 2.593 1979 Unknown [id number] 2.16.840.1.556756.3.579. 2.593 1979 Unknown [id number] 2.16.840.1.186943.3.579. 2.593 1979 Unknown [id number] 2.16.840.1.266702.3.579. 2.593 1979 Unknown [id number] 2.16.840.1.524759.3.579. 2.593 1979 Unknown [id number] 2.16.840.1.178151.3.579. 2.593 1979 Unknown [id number] 2.16.840.1.685560.3.579. 2.593 1979 Unknown [id number] 2.16.840.1.913576.3.579. 2.593 1979 Unknown [id number] 2.16.840.1.548964.3.579. 2.593 1979 Unknown [id number] 2.16.840.1.920309.3.579. 2.593 1979 Unknown [id number] 2.16.840.1.242056.3.579. 2.593 1979 Unknown [id number] 2.16.840.1.524956.3.579. 2.593 1979 Unknown [id number] 2.16.840.1.009252.3.579. 2.593 1979 Unknown [id number] 2.16.840.1.002785.3.579. 2.593 1979 Unknown [id number] 2.16.840.1.244043.3.579. 2.593 1979 Unknown [id number] 2.16.840.1.554462.3.579. 2.593 1979 Unknown [id number] 2.16.840.1.524449.3.579. 2.593 1979 Unknown [id number] 2.16.840.1.983686.3.579. 2.593 1979 Unknown [id number] 2.16.840.1.844997.3.579. 2.593 1979 Unknown [id number] 2.16.840.1.666496.3.579. 2.593 1979 Unknown [id number] 2.16.840.1.351306.3.579. 2.593 1979 Unknown [id number] 2.16.840.1.059762.3.579. 2.593 1979 Unknown [id number] 2.16.840.1.944234.3.579. 2.593 1979 Unknown [id number] 2.16.840.1.363650.3.579. 2.593 1979 Unknown [id number] 2.16.840.1.324530.3.579. 2.593 1979 Unknown [id number] 2.16.840.1.488683.3.579. 2.593 1979 Unknown [id number] 2.16.840.1.706070.3.579. 2.593 1979 Unknown [id number] 2.16.840.1.263848.3.579. 2.593 1979 Unknown [id number] 2.16.840.1.429995.3.579. 2.593 1979 Unknown [id number] 2.16.840.1.876195.3.579. 2.593 1979 Unknown [id number] 2.16.840.1.299502.3.579. 2.593 1979 Unknown [id number] 2.16.840.1.134266.3.579. 2.593 1979 Unknown [id number] 2.16.840.1.278610.3.579. 2.1259 1979 Unknown [id number] 2.16.840.1.208955.3.579. 2.1259 1979 Unknown [id number] 2.16.840.1.056451.3.579. 2.1259 1979 Unknown [id number] 2.16.840.1.387827.3.579. 2.1258 1979 Unknown [id number] 2.16.840.1.718719.3.579. 2.1258 1979 Unknown [id number] 2.16.840.1.087428.3.579. 2.1258 1979 Unknown [id number] 2.16.840.1.007377.3.579. 2.1258 1979 Unknown [id number] 2.16.840.1.334369.3.579. 2.1258 1979 Unknown [id number] 2.16.840.1.588923.3.579. 2.9 1959 Unknown [id number] 2.16.840.1.901767.19 1959 Unknown [id number] 2.16.840.1.786157.19 Unknown [id number] 2.16.840.1.646236.3.579. 2.531 Unknown [id number] 2.16.840.1.172143.3.579. 2.531 Social History Date Type Detail Facility Unknown if ever smoked [facility] Other Start: 03-23-2023 End: 04-19-2024 Sex Assigned At [facility] Start: 12-21-2022 Tobacco smoking status [facility] Never smoked tobacco [facility] Start: 12-21-2022 Tobacco use and exposure Smokeless tobacco non-user [facility] Start: 05-18-2023 End: 04-27-2024 Alcohol intake Current drinker of alcohol (finding) [facility] Start: 03-23-2023 End: 05-18-2023 Alcohol intake [facility] Within the last year , have you been afraid of your partner or ex-partner? Patient refused [facility] Are you now , , , , never or living with a partner? Refused [facility] (I/We) worried whether (my/our) food would run out before (I/we) got money to buy more. DK or Refused [facility] Start: 1980 Sex Assigned At Not on file [facility] Start: 1980 Sex Assigned At Male F [facility] Start: 10-19-2023 Tobacco smoking status NHIS Ex-smoker (finding) [facility] Medical Equipment Procedure Code Equipment Code Equipment [...] of toe of right foot, subsequent encounter ([facility]/HCC) Comments: Sees Dr Feldman and Oscar Dyslipidemia ([facility]) Comments: Lipids: Chol 126, Trig 219, [...] valgus, unspecified laterality: Sees Podiatry Morbid obesity ([facility]/HCC): See above Vitamin B12 deficiency: 374 on recent lab in Jan Lipoprotein deficiency disorder F/U in July or August for recheck-hypertension/Diabetes, sooner if concerns documented in this encounter [facility] 02-28-2024 Telephone encount er Note Rx sent [facility] 02-28-2024 Miscellaneous Notes Formattin g of this note might be different from the original. Rx sent documented in this encounter [facility] 01-19-2024 History of Presen t [...] Type 2 diabetes mellitus with neurological manifestation ([facility]) Essential hypertension: Controlled. Pt will verify what dose he has at home ie 30 or 40mg of Lisinopril. 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 Avoid sweets, more fruits and mainly non-starchy vegetables, lean protien, nuts and routine exercise. Amputation of toe, traumatic, left, sequela ([facility]) Vitamin B 12 deficiency Comments: Last Vit B12 351 Pt declined flu vaccine today, prefers to wait into later February, could stop back here or do at work or pharmacy. Does not plan to get any more covid vaccines. Enc to think about Prevnar 20. F/U in 3 months for Wellness, sooner if concerns. PVU documented in this encounter [facility] 12-30-2023 Telephone encount er Note Rx sent [facility] 12-30-2023 Miscellaneous Notes Formattin g of this note might be different from the original. Rx sent documented in this encounter [facility] 06-16-2023 History of Presen t [...] sugars ranging from 120-170's. Sees Joshua in [place], next appt September 13 with them. Taking [...] so he doesn't have to go to [place]. I told him because his sugars are [...] DM care again. 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 Now has left foot toe amputated. Per pt toe is healing Ulcer of foot due to type 2 diabetes mellitus (CMS/HCC): Hx of Poorly controlled diabetes mellitus ([facility]/HCC): Last HgbA1c 8.2 Type 2 diabetes mellitus with hyperglycemia, with long-term current use of insulin ([facility]): As above Vitamin B 12 deficiency Comments: Last WNL at 351 Hx of diabetic neuropathy: Hx of 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CMS/HCC): Hx of Morbid obesity ([facility]) Comments: Enc healthy diet, watch sweets carbs. Balance diet with carb proteinm try to add vegeatbles, Enc physical activity as able Hypertriglyceridemia ([facility]) Comments: Last lipids 04/01 Chol 142, [...] current use of insulin (CMS/HCC): Hx of senior care (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 (Z79.4): Hx of [...] Type 2 Diabetes mellitus with hyperglycemia with terminal supervisor current use of insulin (CMS/HCC): Hx of Morbid obesity: See above documented in this encounter [facility] 06-15-2023 Evaluation note Encounter Date Diagnosis Assessment Notes Jun, Type 2 diabetes mellitus with hyperglycemia (ICD-10 - E11.65) [facility] 01-31-2024 Evaluation note* Encounter Date Diagnosis [...] f/u with pcp for further recommendation May, long term care administrator current use of insulin (ICD-10 - Z79.4) May, Vitamin B 12 deficiency (ICD-10 - E53.8) 04/01 vit b 12 351 at target May, BMI 50.0-59.9, adult (ICD-10 - Z68.43) see above May, Amputation toe (ICD-10 - Z89.429) Keep f/u with Dr. Feldman May, Cracked skin on feet (ICD-10 - R23.4) keep f/u with Dr. Feldman [facility] 08-28-2023 Evaluation note* Encounter Date Diagnosis [...] for Lispro/ozempic 0.5mg sent to [facility] in [place] 01/04/23 7. Prescriptions will not be filled [...] (hypertension) (ICD-10 - I10) on julissa Dec, long term care administrator current use of insulin (ICD-10 - Z79.4) Dec, Vitamin B 12 deficiency (ICD-10 - E53.8) 12/30 vit b 12 335 at target Dec, BMI 50.0-59.9, adult (ICD-10 - Z68.43) see above Dec, Wound of foot (ICD-10 - S91.309A) pt has apt scheduled with Dr. Feldman today [facility] 05-30-2023 NotePROCEDURE: XR FOOT LT MIN [...] Electronically authenticated by: FRANCO FRANCES Date: 2022-10-06 14:13[facility]05-04-2023 Evaluation note* Encounter Date Diagnosis Assessment Notes Treatment Notes Treatment Clinical Notes September, Type 2 diabetes mellitus with hyperglycemia (ICD-10 - E11.65) [facility] Other [id number] NotePROCEDURE: XR FOOT LT MIN 3 VIEWS [...] Electronically authenticated by: FERN SOSA Date: 2022-08-24 12:46[facility]02-16-2023 Evaluation note* Encounter Date Diagnosis Assessment Notes Treatment Notes Treatment Clinical Notes Jun, Type 2 diabetes mellitus with hyperglycemia (ICD-10 - E11.65) 1. Uncontrolled, a Type 2 diabetes with A1c of 8.2% 2. Blood glucose levels above target. Discussed with pt restarting ozempic, he had s/e from higher dose ozempic 1mg and concern with cost works at [employer]. Pt agreeable to starting sample ozempic 0.5mg [...] Syringes/ozempic/st eglatro sent to [facility] in [place] 06/25/22 7. Prescriptions will not be filled [...] (hypertension) (ICD-10 - I10) on julissa Jun, senior care current use of insulin (ICD-10 - Z79.4) Jun, Vitamin B 12 deficiency (ICD-10 - E53.8) 12/28 vit b 12 423 at target Jun, BMI 50.0-59.9, adult (ICD-10 - Z68.43) [facility] 02-07-2023 NotePROCEDURE: XR ANKLE LT MIN [...] Electronically authenticated by: GISSEL RUBIO Date: 2022-06-16 16:33[facility]02-07-2023 NotePROCEDURE: XR ANKLE LT MIN [...] Electronically authenticated by: GISSEL RUBIO Date: 2022-06-16 16:33[facility]08-30-2022 Evaluation note* Encounter Date Diagnosis [...] (hypertension) (ICD-10 - I10) on julissa Dec, long term care administrator current use of insulin (ICD-10 - Z79.4) Dec, Vitamin B 12 deficiency (ICD-10 - E53.8) 12/28 vit b 12 423 at target Dec, BMI 45.0-49.9, adult (ICD-10 - Z68.42) 14 pound weight loss from last visit, continue with weight loss efforts [facility] 01-01-2021 History general Narrative - Reported* Type Description Date Medical History type II diabetes Medical History hypertension Medical History hyperlipidemia Medical History covid 05/2020 Surgical History Ulcer on left great toe X2 Surgical History Partial amputation Right great toe 01/2021 Surgical History All toes right foot amputated Hospitalization History Toe infection 2017 [facility] 01-01-2021 History general Narrative - Reported* Type Description Date Medical History type II diabetes Medical History hypertension Medical History hyperlipidemia Medical History covid 05/2020 Surgical History Ulcer on left great toe X2 Surgical History Partial amputation Right great toe 01/2021 Surgical History All toes right foot amputated Surgical History Left great toe corre ctive surgery with Dr. Feldman in [place] 10/2022 Hospitalization History Toe infection 2017 [facility] Other Chiot complaint+Reason for visit Narrative* Chief Complaint no meter Reason for Visit BMI 50.0-59.9, adult Dietary counseling and surveillance Hypertension Mixed hyperlipidemia Type 2 diabetes mellitus with hyperglycemia [facility] Work Phone: Chik[place] complaint+Reason for visit Narrative* Chief Complaint meter Reason for Visit BMI 50.0-59.9, adult Dietary counseling and surveillance Hypertension Mixed hyperlipidemia Type 2 diabetes mellitus with hyperglycemia Wound of left foot Wound of right foot [facility] Work Phone: Evaluation noteNo InformationN[facility]Reading [facility] [place] Other Evaluation note* Diagnosis Diabetic polyneuropathy associated [...] neuropathy, with long-term current use of insulin ([facility]) senior care (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 (Z79.4) Acquired absence of other toe(s), unspecified side (Z89.429) Type 2 diabetes mellitus with diabetic neuropathy, with long-term current use of insulin ([facility]) Body mass index [BMI] 50.0-59.9, adult (Z68.43) Type 2 diabetes mellitus with foot ulcer, with long-term current use of insulin ([facility]) 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.49) Status post amputation of lesser toe, unspecified laterality ([facility]) Arthritis of left foot Acquired hallux valgus of left foot Type 2 diabetes mellitus with hyperglycemia, with long-term current use of insulin ([facility]) Morbid obesity ([facility]) Morbid obesity documented in this encounter [facility] HealthcareEvaluation noteNo assessment information availablePremier Health Work Phone: Evaluation note* Diagnosis Onset Date Resolution Status BMI 50.0-59.9, adult acute Dietary counseling and surveillance acute Hypertension acute Mixed hyperlipidemia acute Type 2 diabetes mellitus with hyperglycemia acute [facility] Work Phone: Evaluation note* Diagnosis Onset Date Resolution Status BMI 50.0-59.9, adult acute Dietary counseling and surveillance acute Hypertension acute Mixed hyperlipidemia acute Type 2 diabetes mellitus with hyperglycemia acute Wound of left foot acute Wound of right foot acute [facility] Work Phone: Evaluation note* Diagnosis Pure hyperglyceridemia ([facility]) Pure hyperglyceridemia documented in this encounter [facility] HealthcareEvaluation note* Diagnosis Diabetic polyneuropathy associated with type 2 diabetes mellitus ([facility])- Primary Type 2 diabetes mellitus with neurological manifestation ([facility]) Essential hypertension Unspecified essential hypertension 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, subsequent encounter ([facility]) Type 2 diabetes mellitus with hyperglycemia, with long-term current use of insulin ([facility]) Dyslipidemia ([facility]) Other and unspecified hyperlipidemia Hypertriglyceridemia ([facility]) Pure hyperglyceridemia Vitamin B 12 deficiency Other B-complex deficiencies Pure hyperglyceridemia ([facility]) Pure hyperglyceridemia documented [facility] encounter [facility]* Diagnosis Diabetic polyneuropathy associated with type 2 diabetes mellitus ([facility])- Primary Wellness examination Type 2 diabetes mellitus with neurological manifestation ([facility]) Essential hypertension Unspecified essential hypertension 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, subsequent encounter ([facility]) Dyslipidemia ([facility]) Other and unspecified hyperlipidemia Hypertriglyceridemia ([facility]) Pure hyperglyceridemia Poorly controlled diabetes mellitus ([facility]) Type II or unspecified type diabetes mellitus without mention of complication, not stated as uncontrolled Type 2 diabetes mellitus with hyperglycemia, with long-term current use of insulin ([facility]) Diabetic autonomic neuropathy associated with type 2 diabetes mellitus ([facility]) Type II or unspecified type diabetes mellitus with neurological manifestations, not stated as uncontrolled Acquired hallux valgus, unspecified laterality Morbid obesity ([facility]) Morbid obesity Vitamin B 12 deficiency Other B-complex deficiencies 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[facility]) Lipoprotein deficiencies documented in this encounter NOMS [...] section and content) DATE CREATED AUTHOR 08/27/2021 [facility] DATE CREATED AUTHOR AUTHOR'S ORGANIZ ATION 10/17/2022 [facility] DATE CREATED AUTHOR AUTHOR'S ORGANIZ ATION 04/22/2024 [facility] EPIC DATE CREATED AUTHOR AUTHOR'S ORGANIZ ATION 04/29/2024 [facility] REASON FOR VISIT (unrecogniz [...] January 26, 2024 End: January 26, 2024 Cra Officer Relationship Specialty Start Date End Date Natalie Hernandez MD [address] [place] [address] PCP - General Family Medicine 09/15/22 Cra Officer Relationship Specialty Start Date End Date Natalie Hernandez MD [address] [place] [address] PCP - General Family Medicine 09/15/22 Team [...] October 19, 2023 End: October 19, 2023 Cra Officer Relationship Specialty Start Date End Date Natalie Hernandez MD [address] [place] [address] PCP - General Family Medicine 09/15/22 Blossom Cody NP [address] [facility] [place] [address] Nurse Practitioner Family Medicine 01/19/24 Cra Officer Relationship Specialty Start Date End Date Natalie Hernandez MD [address] [place] [address] PCP - General Family Medicine 09/15/22 Blossom Cody NP [address] [facility] [place] [address] Nurse Practitioner Family Medicine 01/19/24 Cra Officer Relationship Specialty Start Date End Date Natalie Hernandez MD [address] [facility] [place] [address] PCP - General Family Medicine 09/15/22 Blossom Cody NP [address] [facility] [place] [address] Nurse Practitioner Family Medicine 01/19/24 Cra Officer Relationship Specialty Start Date End Date Natalie Hernandez MD [address] [facility] [place] [address] PCP - General Family Medicine 09/15/22 Blossom Cody NP [address] [facility] [place] [address] Nurse Practitioner Family Medicine 01/19/24 Cra Officer Relationship Specialty Start Date End Date Natalie Hernandez MD [address] [facility] [place] [address] PCP - General Family Medicine 09/15/22 Cra Officer Relationship Specialty Start Date End Date Natalie Hernandez MD [address] [place] [address] PCP - General Family Medicine 09/15/22 Cra Officer Relationship Specialty Start Date End Date Natalie Hernandez MD [address] [place] [address] PCP - General Family Medicine 09/15/22 Blossom Cody NP [address] [facility] [place] [address] Nurse Practitioner Family Medicine 01/19/24 Cra Officer Relationship Specialty Start Date End Date Natalie Hernandez MD [address] [place] [address] PCP - General Family Medicine 09/15/22 Blossom Cody NP [address] [place] [address] Nurse Practitioner Family Medicine 01/19/24 Goals (unrecognized [...] BE BASED ON THE PRIMARY CLINICAL RECORDS. [employer] [facility]. provides no warranty or guarantee of the accuracy or completeness of information in this document.
--- NOTE | 2024-05-26 18:14 | ED_ITS ---
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 He saw Dr Feldman 3 days ago and was told it looked good - they started topical bacitracin in anticipation of skin grafting. He is non-weight bearing. Today something happened - he cannot describe - and the foot started bleeding at the site that is being prepped for skin grafting. [facility] sent him to the ED to have the bleeding foot evaluated - they placed a bandage to the area just before the ambulance arrived to their facility. No systemic symptoms such as fever or vomiting. He is concerned that he might have an infection and wants his WBC checked. Related Data Home Medications ?Medication ?Instructions ?Recorded ?Confirmed aspirin 81 mg tablet,delayed 81 mg PO QDAY 10/07/22 05/26/24 release (Adult Aspirin Regimen) atorvastatin 40 mg tablet 40 mg PO QDAY 10/07/22 05/26/24 insulin glargine 100 unit/mL 44 unit subcut BID 10/07/22 05/26/24 subcutaneous solution (Lantus U-100 Insulin) insulin lispro 100 unit/mL 1 sliding scale dose subcut 10/07/22 05/26/24 subcutaneous solution USEASDIRECTD metformin 500 mg tablet 1,000 mg PO BID 10/07/22 05/26/24 dapagliflozin propanediol 10 mg 10 mg PO .QD 04/25/24 05/26/24 tablet lisinopril 30 mg tablet 30 mg PO .QD 04/25/24 05/26/24 Previous Rx's ?Medication ?Instructions ?Recorded oxycodone-acetaminophen 5 mg-325 1 tab PO Q6H PRN Pain 5 days #20 05/02/24 mg tablet tabs Allergies Allergy/AdvReac Type Severity Reaction Status Date / Time No Known Drug Allergies Allergy Verified 10/07/22 14:17 [facility] Medical History (Updated 05/26/24 @ 19:31 by Geremias Gar) Anemia ?D64.9 - Anemia, unspecified (ICD-10) Morbid obesity with BMI of 50.0-59.9, adult ?E66.01 - Morbid (severe) obesity due to excess calories (ICD-10) ?Z68.43 - Body mass index [BMI] 50.0-59.9, adult (ICD-10) Diabetic foot infection ?E11.628 - 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 complications (ICD-10) ?L08.9 - Local infection of the skin and subcutaneous tissue, unspecified (ICD-10) Diabetes ?E11.9 - Type 2 diabetes mellitus without complications (ICD-10) Hypertension ?I10 - Essential (primary) hypertension (ICD-10) Diabetic foot ulcer ?E11.621 - Type 2 diabetes mellitus with foot ulcer (ICD-10) ?L97.509 - Non-pressure chronic ulcer of other part of unspecified foot with unspecified severity (ICD-10) Acute on chronic kidney failure ?N17.9 - Acute kidney failure, unspecified (ICD-10) ?N18.9 - Chronic kidney disease, unspecified (ICD-10) High cholesterol ?E78.00 - Pure hypercholesterolemia, unspecified (ICD-10) Hallux rigidus ?M20.20 - Hallux rigidus, unspecified foot (ICD-10) Acquired equinus deformity of foot ?M21.6X9 - Other acquired deformities of unspecified foot (ICD-10) 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) ?S98.139A - Complete traumatic amputation of one unspecified lesser toe, initial encounter (ICD-10) COVID-19 (~10/2021) ?U07.1 - COVID-19 (ICD-10) Surgical History S/P operative procedure on foot (~2017) ?Z98.890 - Other specified postprocedural states (ICD-10) S/P debridement (~03/27/18) ?Z98.890 - Other specified postprocedural states (ICD-10) S/P operative procedure on foot (~09/15/18) ?Z98.890 - Other specified postprocedural states (ICD-10) S/P operative procedure on foot (02/15/20) ?Z98.890 - Other specified postprocedural states (ICD-10) S/P operative procedure on foot (09/25/21) ?Z98.890 - Other specified postprocedural states (ICD-10) S/P operative procedure on foot (10/14/21) ?Z98.890 - Other specified postprocedural states (ICD-10) Family History Father Family history of cancer Mother Family history of cancer Family history of diabetes mellitus Social History Within the past year, how often did you have a drink containing alcohol: 2-4 times a month Within the past year, how many standard drinks containing alcohol did you have on a typical day: 1 or 2 Within the past year, how often did you have six or more drinks on one occasion: never Total score: 0 Score interpretation: A score less than 4 is consistent with normal alcohol consumption. Smoking status: Former smoker Second hand tobacco smoke exposure: No Non-prescribed substance use: denies use Previous occupational history: [employer] Known occupational exposures/hazards: No Highest level of school completed/degree received: Associate degree: occupational, technical, vocational program Little interest or pleasure in doing things: not at all Feeling down, depressed, or hopeless: not at all Exam Narrative Exam Narrative: Vital signs reviewed and nurse's notes. The patient is not hypoxic. General: Alert, no acute distress, patient resting comfortably Skin: warm, intact, no pallor noted Head: Normocephalic, atraumatic Eye: Normal conjunctiva Respiratory: No acute distress. Lungs clear to auscultation bilaterally. Heart: Normal rate and rhythm without ectopy. Heart rate less than 100 Musculoskeletal: Partial amputation of the right foot with sutures still in place where the revision had been performed in April. There is a 3 cm x 3 cm area of skin loss visible to me after I removed the moist gauze and have been applied to the area. There is no active bleeding at this time. Sutures appear intact. There is no purulent discharge or discolored discharge to the area. Sensation is intact at his baseline, the patient tells me, as I gently palpate the right foot. No proximal streaking is noted. The patient is able to sit up and look at the right foot and told me that it looks the same as it did [address] Feldman's office. There is no of swelling. There is no ecchymosis. No erythema or warmth noted. DP and PT pulses are intact 2+. Toes have been amputated. There is no cyanosis or mottling noted. The patient has no tenderness to the right calf or behind the right knee. There is no pain with calcaneal squeeze, achilles tendon is intact and no defect is palpated. Neurological: alert and orient x4, normal sensory and motor observed. Psychiatric: Cooperative Constitutional Vital Signs, click to edit/add: Last Vital Signs Temp 98.0 F 05/26/24 18:05 Pulse 96 H 05/26/24 18:05 Resp 18 05/26/24 18:05 BP 147/69 H 05/26/24 18:05 Pulse Ox 98 05/26/24 18:05 O2 Del Method Room Air 05/26/24 18:05 Course Vital Signs Vital signs: Vital Signs Temperature 98.0 F 05/26/24 18:05 Pulse Rate 96 H 05/26/24 18:05 Respiratory Rate 18 05/26/24 18:05 Blood Pressure 147/69 H 05/26/24 18:05 Pulse Oximetry 98 05/26/24 18:05 Oxygen Delivery Method Room Air 05/26/24 18:05 Temperature 98.0 F 05/26/24 18:05 Pulse Rate 96 H 05/26/24 18:05 Respiratory Rate 18 05/26/24 18:05 Blood Pressure 147/69 H 05/26/24 18:05 Pulse Oximetry 98 05/26/24 18:05 Oxygen Delivery Method Room Air 05/26/24 18:05 MDM - Skin/Abscess/Foreign Bdy MDM Narrative Medical decision making narrative: The patient asked that I draw blood to evaluate his white blood cell count. I also asked the nurse to obtain a wound culture at the area of skin loss that is being prepped for skin grafting. The emergency department nurse also applied wet-to-dry sterile gauze dressing to the area of the right foot correlating with the future skin graft. WBC normal. Pt informed of result, given reassurance and DC'd home. Lab Data Attestation: I reviewed the patient's lab results. Labs: Lab Results 05/26/24 Range/Units 18:40 WBC 8.3 (4.0-11.0) 10^3/uL RBC 3.39 L (4.70-6.10) 10^6/uL Hgb 10.4 L (14.0-18.0) g/dL Hct 31.1 L (42.0-54.0) % MCV 91.7 (80.0-94.0) fL MCH 30.7 (25.9-34.0) pg MCHC 33.4 (29.9-35.2) g/dL RDW 13.4 (11.0-15.0) % Plt Count 176 (150-450) 10^3/uL MPV 9.7 (9.5-13.5) fL Neut % (Auto) 77.5 H (43.0-75.0) % Lymph % (Auto) 11.3 L (20.5-60.0) % [place] % (Auto) 9.3 (1.7-12.0) % Eos % (Auto) 1.3 (0.9-7.0) % Baso % (Auto) 0.2 (0.2-2.0) % Neut # (Auto) 6.4 (1.4-6.5) 10^3/uL Lymph # (Auto) 0.9 L (1.2-3.8) 10^3/uL [place] # (Auto) 0.8 (0.3-0.8) 10^3/uL Eos # (Auto) 0.1 (0.0-0.7) 10^3/uL Baso # (Auto) 0.0 (0.0-0.1) 10^3/uL Abs Immat Gran (auto) 0.03 (0.00-0.03) 10^3/uL Imm/Tot Granulo (auto) 0.4 (0.0-0.5) % Discharge Plan Discharge Chief Complaint: Skin/Abscess/Foreign Body Clinical Impression: Encounter for post surgical wound check Patient Disposition: Home, Self-Care Time of Disposition Decision: 19:28 Prescriptions / Home Meds: No Action aspirin [Adult Aspirin Regimen] 81 mg tablet,delayed release (DR/EC) 81 mg PO QDAY atorvastatin 40 mg tablet 40 mg PO QDAY insulin glargine [Lantus U-100 Insulin] 100 unit/mL solution 44 unit subcut BID insulin lispro 100 unit/mL solution 1 sliding scale dose subcut USEASDIRECTD metformin 500 mg tablet 1,000 mg PO BID dapagliflozin propanediol 10 mg tablet 10 mg PO .QD lisinopril 30 mg tablet 30 mg PO .QD oxycodone-acetaminophen 5-325 mg Tablet 1 tab PO Q6H PRN (Reason: Pain) 5 Days Qty: 20 0RF Print Language: Greenlandic Referrals: ERIC HERNANDEZ [Primary Care Provider] - 1 week
[2024-05-26] MEDS: BACITRACIN OINTMENT 28.4 GM TUBE 1 APPLIC TOPICAL (18:26)
--- NOTE | 2024-05-26 18:29 | PC.NURSE ---
Dressing removed from foot / ankle. one small area above right inner ankle has clear drainage. wound culture obtained from that area. rest of open wound healing appears normal with no drainage / blood and sutures in place. Bacitracin to upper inner ankle area, wet to dry dressing placed and splint replaced.
[2024-05-26 18:50] LABS: Basophils Percent Auto 0.2 % (0.2-2.0); Eosinophils Absolute Auto 0.1 10^3/uL (0.0-0.7); Eosinophils Percent Auto 1.3 % (0.9-7.0); Hematocrit 31.1 % (42.0-54.0); Hemoglobin 10.4 g/dL (14.0-18.0); Immature Granulocytes Abs Auto 0.03 10^3/uL (0.00-0.03); Immature Granulocytes Pct Auto 0.4 % (0.0-0.5); Lymphocytes Absolute Auto 0.9 10^3/uL (1.2-3.8); Lymphocytes Percent Auto 11.3 % (20.5-60.0); Mean Corpuscular HGB Conc 33.4 g/dL (29.9-35.2); Mean Corpuscular Hemoglobin 30.7 pg (25.9-34.0); Mean Corpuscular Volume 91.7 fL (80.0-94.0); Mean Platelet Volume 9.7 fL (9.5-13.5); Monocytes Absolute Auto 0.8 10^3/uL (0.3-0.8); Monocytes Percent Auto 9.3 % (1.7-12.0); Neutrophils Absolute Auto 6.4 10^3/uL (1.4-6.5); Neutrophils Percent Auto 77.5 % (43.0-75.0); Platelet Count 176 10^3/uL (150-450); Red Blood Count 3.39 10^6/uL (4.70-6.10); Red Cell Distribution Width 13.4 % (11.0-15.0); White Blood Count 8.3 10^3/uL (4.0-11.0)
[2024-05-26 21:03] VITALS: BP 148/76; PULSE 90; O2SAT 98
== END 2024-05-26 21:06 | disposition home or self-care (01) ==
PROVIDERS: Emergency Provider Emergency Medicine; PCP Family Medicine
DX: Z47.81 Encounter for orthopedic aftercare following surgical amputation (principal); Z89.431 Acquired absence of right foot; Z87.891 Personal history of nicotine dependence
CPT/HCPCS: 36415; 85025; 87070; 87075; 87150; 87186; 99284

== ENCOUNTER 2024-05-30 11:48 | Observation (INO) | payer OTHER, SELFPAY ==
[2024-05-30 11:51] VITALS: BP 123/71; PULSE 112; TEMP 36.6; O2SAT 97; BMI 50.2
--- NOTE | 2024-05-30 12:26 | ECG_ITS ---
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
[2024-05-30 12:52] LABS: Basophils Percent Auto 0.5 % (0.2-2.0); Eosinophils Absolute Auto 0.1 10^3/uL (0.0-0.7); Eosinophils Percent Auto 1.5 % (0.9-7.0); Hematocrit 33.2 % (42.0-54.0); Hemoglobin 10.8 g/dL (14.0-18.0); Immature Granulocytes Abs Auto 0.12 10^3/uL (0.00-0.03); Immature Granulocytes Pct Auto 1.4 % (0.0-0.5); Lymphocytes Absolute Auto 1.3 10^3/uL (1.2-3.8); Lymphocytes Percent Auto 14.5 % (20.5-60.0); Mean Corpuscular HGB Conc 32.5 g/dL (29.9-35.2); Mean Corpuscular Hemoglobin 30.1 pg (25.9-34.0); Mean Corpuscular Volume 92.5 fL (80.0-94.0); Mean Platelet Volume 9.8 fL (9.5-13.5); Monocytes Absolute Auto 0.6 10^3/uL (0.3-0.8); Monocytes Percent Auto 7.4 % (1.7-12.0); Neutrophils Absolute Auto 6.5 10^3/uL (1.4-6.5); Neutrophils Percent Auto 74.7 % (43.0-75.0); Platelet Count 303 10^3/uL (150-450); Red Blood Count 3.59 10^6/uL (4.70-6.10); Red Cell Distribution Width 13.3 % (11.0-15.0); White Blood Count 8.7 10^3/uL (4.0-11.0)
[2024-05-30] MEDS: CLINDAMYCIN PHOSPHATE/D5W 600 MG/50 ML PREMIX 100 MG IV (12:59)
[2024-05-30 13:01] LABS: Erythrocyte Sedimentation Rate 105 mm/hr (<=15)
[2024-05-30 13:02] VITALS: BP 114/83; PULSE 96; O2SAT 95
--- NOTE | 2024-05-30 13:03 | ED_ITS ---
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 Feldman sent him over to be admitted for IV antibiotic, patient had distal half of the foot amputated at the end of last year secondary to infection he was planned to have a skin transplant at the area of the wound infection The patient denies any fever or chills he mentioned that the wound was leaking more over the last few days No other concerns, Related Data Home Medications ?Medication ?Instructions ?Recorded ?Confirmed aspirin 81 mg tablet,delayed 81 mg PO QDAY 10/07/22 05/26/24 release (Adult Aspirin Regimen) atorvastatin 40 mg tablet 40 mg PO QDAY 10/07/22 05/26/24 insulin glargine 100 unit/mL 44 unit subcut BID 10/07/22 05/26/24 subcutaneous solution (Lantus U-100 Insulin) insulin lispro 100 unit/mL 1 sliding scale dose subcut 10/07/22 05/26/24 subcutaneous solution USEASDIRECTD metformin 500 mg tablet 1,000 mg PO BID 10/07/22 05/26/24 dapagliflozin propanediol 10 mg 10 mg PO .QD 04/25/24 05/26/24 tablet lisinopril 30 mg tablet 30 mg PO .QD 04/25/24 05/26/24 Previous Rx's ?Medication ?Instructions ?Recorded oxycodone-acetaminophen 5 mg-325 1 tab PO Q6H PRN Pain 5 days #20 05/02/24 mg tablet tabs Allergies Allergy/AdvReac Type Severity Reaction Status Date / Time No Known Drug Allergies Allergy Verified 10/07/22 14:17 Review of Systems ROS Status of ROS 10 or more systems reviewed and unremark able except as noted in history and below [facility] Medical History (Updated 05/30/24 @ 13:06 by Orin Garnica MD) Anemia ?D64.9 - Anemia, unspecified (ICD-10) Morbid obesity with BMI of 50.0-59.9, adult ?E66.01 - Morbid (severe) obesity due to excess calories (ICD-10) ?Z68.43 - Body mass index [BMI] 50.0-59.9, adult (ICD-10) Diabetic foot infection ?E11.628 - 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 complications (ICD-10) ?L08.9 - Local infection of the skin and subcutaneous tissue, unspecified (ICD-10) Diabetes ?E11.9 - Type 2 diabetes mellitus without complications (ICD-10) Hypertension ?I10 - Essential (primary) hypertension (ICD-10) Diabetic foot ulcer ?E11.621 - Type 2 diabetes mellitus with foot ulcer (ICD-10) ?L97.509 - Non-pressure chronic ulcer of other part of unspecified foot with unspecified severity (ICD-10) Acute on chronic kidney failure ?N17.9 - Acute kidney failure, unspecified (ICD-10) ?N18.9 - Chronic kidney disease, unspecified (ICD-10) High cholesterol ?E78.00 - Pure hypercholesterolemia, unspecified (ICD-10) Hallux rigidus ?M20.20 - Hallux rigidus, unspecified foot (ICD-10) Acquired equinus deformity of foot ?M21.6X9 - Other acquired deformities of unspecified foot (ICD-10) 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) ?S98.139A - Complete traumatic amputation of one unspecified lesser toe, initial encounter (ICD-10) COVID-19 (~10/2021) ?U07.1 - COVID-19 (ICD-10) Surgical History S/P operative procedure on foot (~2017) ?Z98.890 - Other specified postprocedural states (ICD-10) S/P debridement (~03/27/18) ?Z98.890 - Other specified postprocedural states (ICD-10) S/P operative procedure on foot (~09/15/18) ?Z98.890 - Other specified postprocedural states (ICD-10) S/P operative procedure on foot (02/15/20) ?Z98.890 - Other specified postprocedural states (ICD-10) S/P operative procedure on foot (09/25/21) ?Z98.890 - Other specified postprocedural states (ICD-10) S/P operative procedure on foot (10/14/21) ?Z98.890 - Other specified postprocedural states (ICD-10) Family History Father Family history of cancer Mother Family history of cancer Family history of diabetes mellitus Social History Within the past year, how often did you have a drink containing alcohol: 2-4 times a month Within the past year, how many standard drinks containing alcohol did you have on a typical day: 1 or 2 Within the past year, how often did you have six or more drinks on one occasion: never Total score: 0 Score interpretation: A score less than 4 is consistent with normal alcohol consumption. Smoking status: Former smoker Second hand tobacco smoke exposure: No Non-prescribed substance use: denies use Previous occupational history: [employer] Known occupational exposures/hazards: No Highest level of school completed/degree received: Associate degree: occupational, technical, vocational program Little interest or pleasure in doing things: not at all Feeling down, depressed, or hopeless: not at all Exam Narrative Exam Narrative: Nurses notes and vital signs reviewed and patient is not hypoxic. General: Well-appearing and in no apparent distress. Skin: Warm, dry, no pallor noted. No rash. Head: Normocephalic, atraumatic. Neck: Supple, non-tender. Cardiovascular: Regular Rate and Rhythm without murmur, gallop or rub. Respiratory: No accessory muscle use or respiratory distress. Lungs are clear to auscultation, no wheezing, rales or rhonchi Chest Wall: no tenderness Back: No midline thoracic or lumbar vertebral tenderness. No CVA tenderness Musculoskeletal: The patient wound was just evaluated by his mounter [employer] pic[employer] with dressing applied and clean and the patient did not want me to open the dressing which I will respect that at the moment that there was some leaking serosanguineous fluid on the dressing Constitutional Vital Signs, click to edit/add: Last Vital Signs Temp 97.9 F 05/30/24 11:51 Pulse 96 H 05/30/24 13:02 Resp 20 05/30/24 13:02 BP 114/83 05/30/24 13:02 Pulse Ox 95 05/30/24 13:02 O2 Del Method Room Air 05/30/24 13:02 Course Vital Signs Vital signs: Vital Signs Temperature 97.9 F 05/30/24 11:51 Pulse Rate 112 H 05/30/24 11:51 Respiratory Rate 18 05/30/24 11:51 Blood Pressure 123/71 05/30/24 11:51 Pulse Oximetry 97 05/30/24 11:51 Oxygen Delivery Method Room Air 05/30/24 11:51 Temperature 97.9 F 05/30/24 11:51 Pulse Rate 96 H 05/30/24 13:02 Respiratory Rate 20 05/30/24 13:02 Blood Pressure 114/83 05/30/24 13:02 Pulse Oximetry 95 05/30/24 13:02 Oxygen Delivery Method Room Air 05/30/24 13:02 MDM - Wound/Laceration MDM Narrative Medical decision making narrative: Patient EKG showing sinus rhythm with a heart rate of [address] elevation or depression The patient is being sent to the ER to be admitted for debridement tomorrow for his wound from the podiatry office Looking at the wound culture the patient had recently and there is MRSA that is sensitive to clindamycin Patient was started on clindamycin in the ED after obtaining a blood culture The patient was hard to take a multiple attempt to get the blood draw and IV, his blood workup did not show a leukocytosis and his lactic acid came at 3.8 but it is mostly hemolyzed an systemic infection signs and no leukocytosis Patient case was discussed with Dr. Guerrier and he agrees to admit pt for further evaluation Lab Data Labs: Lab Results 05/30/24 Range/Units 12:17 WBC 8.7 (4.0-11.0) 10^3/uL RBC 3.59 L (4.70-6.10) 10^6/uL Hgb 10.8 L (14.0-18.0) g/dL Hct 33.2 L (42.0-54.0) % MCV 92.5 (80.0-94.0) fL MCH 30.1 (25.9-34.0) pg MCHC 32.5 (29.9-35.2) g/dL RDW 13.3 (11.0-15.0) % Plt Count 303 (150-450) 10^3/uL MPV 9.8 (9.5-13.5) fL Neut % (Auto) 74.7 (43.0-75.0) % Lymph % (Auto) 14.5 L (20.5-60.0) % [place] % (Auto) 7.4 (1.7-12.0) % Eos % (Auto) 1.5 (0.9-7.0) % Baso % (Auto) 0.5 (0.2-2.0) % Neut # (Auto) 6.5 (1.4-6.5) 10^3/uL Lymph # (Auto) 1.3 (1.2-3.8) 10^3/uL [place] # (Auto) 0.6 (0.3-0.8) 10^3/uL Eos # (Auto) 0.1 (0.0-0.7) 10^3/uL Baso # (Auto) 0.0 (0.0-0.1) 10^3/uL Abs Immat Gran (auto) 0.12 H (0.00-0.03) 10^3/uL Imm/Tot Granulo (auto) 1.4 H (0.0-0.5) % ESR 105 H (<=15) mm/hr Sodium 137 (136-145) mmol/L Potassium 4.4 (3.5-5.1) mmol/L Chloride 101 (98-107) mmol/L Carbon Dioxide 24.0 (21.0-32.0) mmol/L Anion Gap 16.4 BUN 13.0 (7.0-18.0) mg/dL Creatinine 1.16 (0.70-1.30) mg/dL Est GFR ( Amer) >60 (>=60 mL/min/1.73m^2) Est GFR (Non-Af Amer) >60 (>=60 mL/min/1.73m^2) BUN/Creatinine Ratio 11.2 Glucose 138 H (74-106) mg/dL Lactate 3.8 H* (0.4-2.0) mmol/L Calcium 9.5 (8.5-10.1) mg/dL Total Bilirubin 0.3 (0.2-1.0) mg/dL AST 27 (15-37) U/L ALT 24 (16-63) U/L Alkaline Phosphatase 110 (46-116) U/L C-Reactive Protein 5.84 H (<=0.50) mg/dL Total Protein 8.0 (6.4-8.2) g/dL Albumin 3.1 L (3.4-5.0) g/dL Globulin 4.9 g/dL Albumin/Globulin Ratio 0.6 Discharge Plan Discharge Chief Complaint: Wound/Laceration Clinical Impression: Postoperative wound infection Patient Disposition: Admitted As Inpatient Time of Disposition Decision: 13:06
[2024-05-30 13:20] LABS: Alanine Aminotransferase 24 U/L (16-63); Albumin Globulin Ratio 0.6; Albumin Level 3.1 g/dL (3.4-5.0); Alkaline Phosphatase 110 U/L (46-116); Anion Gap 16.4; Aspartate Amino Transferase 27 U/L (15-37); BUN Creatinine Ratio 11.2; Bilirubin Total 0.3 mg/dL (0.2-1.0); Calcium 9.5 mg/dL (8.5-10.1); Chloride 101 mmol/L (98-107); Estimated GFR (African America >60 (>=60 mL/min/1.73m^2); Estimated GFR (Non-African Ame >60 (>=60 mL/min/1.73m^2); Globulin 4.9 g/dL; Glucose 138 mg/dL (74-106); Potassium 4.4 mmol/L (3.5-5.1); Sodium 137 mmol/L (136-145)
[2024-05-30 13:22] LABS: Lactate/Lactic Acid 3.8 mmol/L (0.4-2.0)
[2024-05-30 13:23] LABS: C Reactive Protein 5.84 mg/dL (<=0.50)
[2024-05-30 13:59] VITALS: BP 114/58; PULSE 102; TEMP 37; O2SAT 95; BMI 48.5
[2024-05-30 14:34] VITALS: O2SAT 95
[2024-05-30] MEDS: 0.9 % SODIUM CHLORIDE 1,000 ML 1000 ML IV (14:42)
--- NOTE | 2024-05-30 14:49 | PM.HP ---
HPI H&P: HPI History of Present Illness Chief complaint: LOWER EXTREMITY PAIN INFECTED POST OP WOUND Narrative: 43y o male who had I&D of left foot for diabetic foot infection/abscess was doing well and following up as outpatient with [facility]. While changing his Wound Vac, Nurse noted purulent discharge from his left foot and patient was sent to ED for evaluation. He then followed up with today and was noted to have more purulence upon exam and was sent again to ED for IV abx and after consultation with Podiatry is scheduled for OR in the morning for I&D and debridement. Patient denies fever/chills. He denies any sig pain or swelling. His wound culture is growing Group B strep and MRSA. He was started on IV vancomycin/Zosyn. He will be NPO after MN for OR tomorrow. Opioid HPI Opioid Management Most Recent Pain and Opioid Data: Last Pain Scale 0 04/30/24 18:00 04/30/24 Last Pain Intensity 0 04/29/24 09:27 04/29/24 Last Pain Assessment 05/30/24 14:00 Last ORT Total Score 0 05/30/24 13:59 05/30/24 Last ORT Risk Category Low Risk 05/30/24 13:59 05/30/24 Review of Systems ROS Status of ROS 10 or more systems reviewed and unremarkable except as noted in history and below [facility] Medical History (Updated 05/30/24 @ 14:56 by Shaikh Fareed MD) HLD (hyperlipidemia) ?E78.5 - Hyperlipidemia, unspecified (ICD-10) Anemia ?D64.9 - Anemia, unspecified (ICD-10) Morbid obesity with BMI of 50.0-59.9, adult ?E66.01 - Morbid (severe) obesity due to excess calories (ICD-10) ?Z68.43 - Body mass index [BMI] 50.0-59.9, adult (ICD-10) Diabetes ?E11.9 - Type 2 diabetes mellitus without complications (ICD-10) Hypertension ?I10 - Essential (primary) hypertension (ICD-10) Diabetic foot ulcer ?E11.621 - Type 2 diabetes mellitus with foot ulcer (ICD-10) ?L97.509 - Non-pressure chronic ulcer of other part of unspecified foot with unspecified severity (ICD-10) Acute on chronic kidney failure ?N17.9 - Acute kidney failure, unspecified (ICD-10) ?N18.9 - Chronic kidney disease, unspecified (ICD-10) High cholesterol ?E78.00 - Pure hypercholesterolemia, unspecified (ICD-10) Hallux rigidus ?M20.20 - Hallux rigidus, unspecified foot (ICD-10) Acquired equinus deformity of foot ?M21.6X9 - Other acquired deformities of unspecified foot (ICD-10) 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) ?S98.139A - Complete traumatic amputation of one unspecified lesser toe, initial encounter (ICD-10) COVID-19 (~10/2021) ?U07.1 - COVID-19 (ICD-10) Surgical History S/P operative procedure on foot (~2017) ?Z98.890 - Other specified postprocedural states (ICD-10) S/P debridement (~03/27/18) ?Z98.890 - Other specified postprocedural states (ICD-10) S/P operative procedure on foot (~09/15/18) ?Z98.890 - Other specified postprocedural states (ICD-10) S/P operative procedure on foot (02/15/20) ?Z98.890 - Other specified postprocedural states (ICD-10) S/P operative procedure on foot (09/25/21) ?Z98.890 - Other specified postprocedural states (ICD-10) S/P operative procedure on foot (10/14/21) ?Z98.890 - Other specified postprocedural states (ICD-10) Family History Father Family history of cancer Mother Family history of cancer Family history of diabetes mellitus Social History Within the past year, how often did you have a drink containing alcohol: 2-4 times a month Within the past year, how many standard drinks containing alcohol did you have on a typical day: 1 or 2 Within the past year, how often did you have six or more drinks on one occasion: never Total score: 0 Score interpretation: A score less than 4 is consistent with normal alcohol consumption. Smoking status: Former smoker Second hand tobacco smoke exposure: No Non-prescribed substance use: denies use Previous occupational history: [employer] Known occupational exposures/hazards: No Highest level of school completed/degree received: Bachelor's degree Little interest or pleasure in doing things: not at all Feeling down, depressed, or hopeless: not at all Meds Home Medications and Allergies Home Medications ?Medication ?Instructions ?Recorded ?Confirmed ?Type aspirin 81 mg tablet,delayed 81 mg PO QDAY 10/07/22 05/26/24 History release (Adult Aspirin Regimen) atorvastatin 40 mg tablet 40 mg PO QDAY 10/07/22 05/26/24 History insulin glargine 100 unit/mL 44 unit subcut BID 10/07/22 05/26/24 History subcutaneous solution (Lantus U-100 Insulin) insulin lispro 100 unit/mL 1 sliding scale dose subcut 10/07/22 05/26/24 History subcutaneous solution USEASDIRECTD metformin 500 mg tablet 1,000 mg PO BID 10/07/22 05/26/24 History dapagliflozin propanediol 10 mg 10 mg PO .QD 04/25/24 05/26/24 History tablet lisinopril 30 mg tablet 30 mg PO .QD 04/25/24 05/26/24 History oxycodone-acetaminophen 5 mg-325 1 tab PO Q6H PRN Pain 5 days #20 05/02/24 05/26/24 Rx mg tablet tabs Allergies Allergy/AdvReac Type Severity Reaction Status Date / Time No Known Drug Allergies Allergy Verified 10/07/22 14:17 Exam Constitutional Vital Signs, click to edit/add: Last Vital Signs Temp 98.6 F 05/30/24 13:59 Pulse 102 H 05/30/24 13:59 Resp 20 05/30/24 13:59 BP 114/58 05/30/24 13:59 Pulse Ox 95 05/30/24 14:34 O2 Del Method Room Air 05/30/24 14:34 Documenting provider has reviewed patient's vital signs: yes Common normals: no apparent distress and oriented x3 General appearance: cooperative Respiratory Common normals: normal respiratory effort and clear to auscultation bilaterally Effort & inspection: able to speak in complete sentences Auscultation: clear to auscultation bilaterally Cardio Common normals: regular rate, S1 normal heart sound and S2 normal heart sound Rate: regular rate Heart sounds: S1 normal and S2 normal Extremity Other: Dressing in place in Right foot. Patient requested to not remove the dressing as it new one was placed today in Podiatry office. Results Labs Labs: Short CBC 05/30/24 Range/Units 12:17 WBC 8.7 (4.0-11.0) 10^3/uL Hgb 10.8 L (14.0-18.0) g/dL Hct 33.2 L (42.0-54.0) % Plt Count 303 (150-450) 10^3/uL BMP 05/30/24 12:17 Sodium 137 Potassium 4.4 Chloride 101 Carbon Dioxide 24.0 BUN 13.0 Creatinine 1.16 Glucose 138 H Calcium 9.5 Liver Function 05/30/24 Range/Units 12:17 Total Bilirubin 0.3 (0.2-1.0) mg/dL AST 27 (15-37) U/L ALT 24 (16-63) U/L Alkaline Phosphatase 110 (46-116) U/L Albumin 3.1 L (3.4-5.0) g/dL Assessment and Plan Assessment and Plan (1) Postoperative wound infection: (2) Diabetic foot infection: (3) MRSA (methicillin resistant Staphylococcus aureus) infection: (4) Hypertension: Qualifiers: Hypertension type: primary hypertension Qualified Code(s): I10 - Essential (primary) hypertension (5) Type 2 diabetes mellitus: Qualifiers: Diabetes mellitus termite control representative insulin use: with chcf use Diabetes mellitus complication status: with neurologic complications Diabetes mellitus complication detail: with polyneuropathy Qualified Code(s): E11.42 - Type 2 diabetes mellitus with diabetic polyneuropathy; Z79.4 - long term care administrator (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 (6) HLD (hyperlipidemia): Qualifiers: Hyperlipidemia type: unspecified Qualified Code(s): E78.5 - Hyperlipidemia, unspecified Plan Started patient on IV vancomycin/zosyn. Hemodynamically stable. Mildly elevated lactate, repeat level ordered. Hold Farxiga and metformin inpatient. C/w basal/bolus insulin Podiatry consulted. NPO for OR tomorrow
[2024-05-30] MEDS: LACTATED RINGER'S SOLUTION 1,000 ML 125 ML IV ×2 (15:37→22:42)
[2024-05-30 15:41] LABS: Lactate/Lactic Acid 1.7 mmol/L (0.4-2.0)
--- NOTE | 2024-05-30 16:02 | DIETREC ---
Recommendations ([facility] text to Dr. Guerrier): 2200 CCD diet, 237 mL Ensure High PRO BID, 30 mL PRO-stat BID, 1 packet Prateek BID.
[2024-05-30] MEDS: VANCOMYCIN HCL 2,000 MG in 0.9 % SODIUM CHLORIDE 500 ML 250 MG IV (16:16)
[2024-05-30] MEDS: PIPERACILLIN SODIUM/TAZOBACTAM 3.375 GM in 0.9 % SODIUM CHLORIDE 50 ML IV (18:15)
[2024-05-30 19:44] LABS: Glucometer 113 mg/dL (74-106)
[2024-05-30 20:26] VITALS: PULSE 86
[2024-05-30 20:29] VITALS: O2SAT 97
[2024-05-31] VITALS (13 sets, daily range): BP systolic 92–150; BP diastolic 51–84; PULSE 70–93; TEMP 36.6–37.1; O2SAT 93–99
[2024-05-31] MEDS: PIPERACILLIN SODIUM/TAZOBACTAM 3.375 GM in 0.9 % SODIUM CHLORIDE 50 ML IV ×2 (01:04→11:09)
[2024-05-31] MEDS: VANCOMYCIN HCL 1,750 MG in 0.9 % SODIUM CHLORIDE 500 ML 250 MG IV ×2 (04:17→15:32)
--- OUTSIDE RECORDS SUMMARY | 2024-05-31 06:11 | XMS_ITS | CCD ---
Author Organization [facility] Care Team Providers Care Senior Telecommunications Specialist Name Role Phone Link Ortega Unavailable NATANAEL [...] NATANAEL Marks Attending Unavailable WONDERLY, DR NATALIE Lozdaa Primary Care Unavailable HIGHLANDER, NATANAEL Marks Admitting [...] Care Provider MD Damon Claros Attending Provider [phone] MD Shelby [facility] Provider [phone] Natalie Hernandez MD Primary Care Provider Glo COTTON STOMPER, Blossom Kong Unavailable BLOSSOM CODY Attending Unavailable GLO, BLOSSOM Kong Attending Unavailable RUSHER, MIRLANDE Zhang Attending Unavailable RUSHER, MIRLANDE Zhang Attending Unavailable GLO, BLOSSOM Kong Attending Unavailable RUSHER, MIRLANDE S Attending Unavailable RUSHER, MIRLANDE S Attending Unavailable GLO, BLOSSOM A Attending Unavailable GLO, BLOSSOM Kong Attending Unavailable Wonderly, [facility] Unavailable Jeimyander, Natanael Marks Admitting Unavailable Highlander, Natanael Marks Attending Unavailable Shelby, [facility] Unavailable Damon Claros Admitting Unavailable Damon [...] 02/28/2024 Active dapagliflozin 10 mg oral tablet (11 sources) Sodium-Glucose Cotransporter 2 Inhibitor Start: 10-19-2023 dapagliflozin (Farxiga) 10 MG 01/17/2024 Active ertugliflozin 15 mg oral tablet (12 sources) take 1 tablet by mouth in the morning Steglatro Take 1 tablet by mouth in the morning. 0 Active insulin glargine 100 unt/ml injectable solution (14 sources) Insulin Analog inject 44 [IU] by [...] Active insulin lispro (HumaLOG) 100 UNIT/ML injection (14 sources) insulin lispro ( HumaLOG) 100 UNIT/ML [...] 3 ml liraglutide 6 mg/ml pen injector (13 sources) GLP-1 Receptor Agonist Start: 10-19-2023 inject [...] day(s) Active urea 400 mg/ml topical cream (9 sources) Start: 12-01-2023 urea (Carmol) 40 % [...] Documented Da te Episodic/Chronic Acquired foot deformities (20 sources) Hallux rigidus, unspecified foot; Translations: [Hallux [...] 10-02-2022 10-02-2022 Chronic Open wounds of extremities (11 sources) Traumatic amputation of toe; Translations: [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, sequela] Onset: 11-03-2023 11-03-2023 Chronic Open wounds of extremities (5 sources) Unspecified open wound, unspecified foot, initial encounter; Translations: [Injury of left foot] Episodic Osteoarthritis (16 sources) Arthritis of left foot; Translations: [Primary osteoarthritis, left ankle and foot] Onset: 10-02-2022 10-02-2022 Chronic Other aftercare (11 sources) Long-term current use of insulin; Translations: [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] 06-17-2023 Episodic Other aftercare (4 sources) 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 Onset: 01-06-2022 Resolved: [...] Chronic Other nutritional; endocrine; and metabolic disorders (18 sources) Lipoprotein deficiency disorder; Translations: [Lipoprotein deficiency] Onset: 10-02-2022 10-02-2022 Chronic Other nutritional; endocrine; and metabolic disorders (18 sources) Morbid obesity; Translations: [Morbid (severe) obesity [...] Resolved: 01-06-2022 Episodic Other infections; including parasitic (14 sources) Personal history of other infectious and parasitic diseases; Translations: [History of COVID-19] Onset: 05-13-2020 Resolved: 06-17-2023 10-02-2022 Episodic Other non-traumatic joint disorders (1 source) Pain in left ankle and joints of left foot; Translations: [PAIN IN LEFT ANKLE] Onset: 06-24-2022 Episodic Other nutritional; endocrine; and metabolic disorders (16 sources) H/O: Disorder; Translations: [Personal history of other endocrine, nutritional and metabolic disease] Onset: 04-13-2018 Resolved: 06-17-2023 03-22-2023 Episodic Other skin disorders (5 sources) Corns and callosities; Translations: [CORNS AND CALLOSITIES] Onset: 12-15-2021 Episodic Superficial injury; contusion (4 sources) Blister (nonthermal), right foot, initial encounter; Translations: [BLISTER NONTHERMAL RT FOOT INITIAL] Onset: 12-29-2021 Episodic Results Test Name Value Interpretation Reference Range Facility [facility] 04-26-2024 L Specimen: [id number] Received: 04/26/24 Status: CALEB Gabriel Num: [id number] Spec Type: Surgical Subm Dr: Natanael Feldman DPM, Tissues: A Skin-Other than Cyst, tag, debridement or plastic repair (RT FOOT ULCER) Procedures: Yenny SCOTT/Mary Robles Age/ Patient Sex Location Account Attending Physician Trev Ontiveros 43/M LABELL [id number] Natanael Feldman DPM, SPEC NUM: [id number] RECD: 04/26/24 STATUS: CALEB GABRIEL NUM: [id number] MARTHA: 04/26/[address]: Natanael Feldman DPM, MS ENTERED: 04/26/24 [facility] DR: Farzana Rene SPEC TYPE: Surgical DEPT: DERRICK PLUNKETT ENTERED BY: [id number] RECV BY: [id number] ORDERED: HE, Gross/Micro L4 ORDERED: HE, Gross/Micro [...] reveal purple-brown to green, softened cut surfaces. Communications Advisor sections are submitted in a single cassette. (1, ss, [id number] A) CPT Codes 51820 Specimen: [id number] Received: 04/26/24 Status: CALEB Nery Num: [id number] Spec Type: Surgical Subm Dr: Natanael Feldman DPM, MS Tissues: A Skin-Other than Cyst, tag, debridement or plastic repair (RT FOOT ULCER) Procedures: HE, Gross/Micro L4 Patient: Trev Ontiveros [id number] (Continued) Signed (signature on file) Melanie Roca MD 04/27/24 1349 Normal [facility] A1C HEMOGLOBINon 06-09-2023 HbA1c (Bld) [Mass fraction] 8.2 % [facility] Other Glucose - FINGER STICKon Glucose [Mass/Vol] 170 mg/dL [facility] Other HbA1c (Bld) [Mass fraction]o n 06-09-2023 A1C HEMOGLOBIN [facility] Other A1C HEMOGLOBINon 01-04-2023 HbA1c (Bld) [Mass fraction] 8.9 % [facility] Other Glucose - FINGER STICKon Glucose [Mass/Vol] 201 mg/dL [facility] Other HbA1c (Bld) [Mass fraction]o n 01-04-2023 A1C HEMOGLOBIN [facility] Other PROF CHEM 8 (BAS METB)on Anion gap [Moles/Vol] 14.3 mmol/L Normal [facility] Comment on above: Performed By: #### B MP #### [facility] [address] [address] [address] Lauri Todd Calcium [Mass/Vol] 9.4 mg/dL Normal 8.5-10.1 [facility] Comment on above: Performed By: #### B MP #### [facility] [address] [address] [address] Lauri Todd Chloride [Moles/Vol] 101 mmol/L Normal 98-107 [facility] Comment on above: Performed By: #### B MP #### [facility] [address] [address] [address] Lauri Todd CO2 [Moles/Vol] 26.2 mmol/L Normal 21.0-32.0 [facility] Comment on above: Performed By: #### B MP #### [facility] [address] [place] [address] Dr. Lauri Todd Creatinine [Mass/Vol] 0.90 mg/dL Normal 0.70-1.30 [facility] Comment on above: Performed By: #### B MP #### [facility] [address] [address] [address] Lauri Todd EGFR-AF [place] >60 Normal >=60 [facility] Comment on above: Performed By: #### B MP #### [facility] [address] [place] [address] Dr. Lauri Todd EGFR-NON AF [place] >60 Normal >=60 [facility] Comment on above: Performed By: #### B MP #### [facility] [address] [address] [address] Lauri Todd Glucose [Mass/Vol] 146 mg/dL Critically high 74-106 [facility] Comment on above: Performed By: #### B MP #### [facility] [address] [place] [address] Dr. Lauri Todd Potassium [Moles/Vol] 4.5 mmol/L Normal 3.5-5.1 [facility] Comment on above: Performed By: #### B MP #### [facility] [address] [place] [address] Dr. Lauri oTdd Sodium [Moles/Vol] 137 mmol/L Normal 136-145 [facility] Comment on above: Performed By: #### B MP #### [facility] [address] [place], [place] [address] Dr. Lauri Todd Urea nitrogen [Mass/Vol] 16.0 mg/dL Normal 7.0-18.0 [facility] Comment on above: Performed By: #### B MP #### [facility] [address] [place], [place] [address] Dr. Lauri Todd Urea nitrogen/Creatinin e [Mass ratio] 17.8 mg/mg Normal [facility] Comment on above: Performed By: #### B MP #### [facility] [address] [address] [address] Lauri Todd A1C HEMOGLOBINon 06-25-2022 HbA1c (Bld) [Mass fraction] 8.2 % [facility] Other Glucose - FINGER STICKon Glucose [Mass/Vol] 180 mg/dL [facility] Other HbA1c (Bld) [Mass fraction]o n 06-25-2022 [facility] FOOT LT MIN 3 VIEWSon [...] by: RAFAEL WHITAKER Date: 2022-05-25 11:52 Normal [facility] A1C HEMOGLOBINon 01-06-2022 HbA1c (Bld) [Mass fraction] 7 % [facility] [employer] Other Glucose - FINGER STICKon Glucose [Mass/Vol] 148 mg/dL [facility] [employer] Other HbA1c (Bld) [Mass fraction]o n 01-06-2022 A1C HEMOGLOBIN [facility] [employer] Other Basic Metabolic Panelon - Anion gap [Moles/Vol] 20 mmol/L Normal 12-20 [facility] Comment on above: Result Comment: Effe ctive 05/15/2019 reference range changed. Performed By: #### B MP #### [facility] [address], [place] [id number] Calcium [Mass/Vol] 10.0 mg/dL Normal 8.6-10.2 [facility] Comment on above: Performed By: #### B MP #### [facility] [address], [place] [id number] Chloride [Moles/Vol] 100 mmol/L Normal 98-107 [facility] Comment on above: Performed By: #### B MP #### [facility] [address], [place] [id number] CO2 [Moles/Vol] 22 mmol/L Normal 20-31 [facility] Comment on above: Performed By: #### B MP #### [facility] [address], [place] [id number] Creatinine [Mass/Vol] 0.8 mg/dL Normal 0.7-1.4 [facility] Comment on above: Performed By: #### B MP #### [facility] [address], [place] [id number] eGFRAA 129 mL/min/1.73m2 Normal >60 [facility] Comment on above: Performed By: #### B MP #### [facility] [address], [place] [id number] eGFRNAA 107 mL/min/1.73m2 Normal >60 [facility] Comment on above: Performed By: #### B MP #### [facility] [address] [place] [id number] Glucose [Mass/Vol] 140 mg/dL High 65-99 [facility] [place] [employer] Coordinator Comment on above: Result Comment: For FASTING Glucose --- ADA reference ranges: Normal 65-99 mg/dl Prediabetes 100-125 Diabetes >/= 126 Performed By: #### B MP #### [facility] [address] [facility] [place] [id number] Potassium [Moles/Vol] 4.3 mmol/L Normal 3.5-5.5 [facility] Specialist Comment on above: Performed By: #### B MP #### [facility] [address] [facility] [place] [id number] Sodium [Moles/Vol] 137 mmol/L Normal 135-146 [facility] Distance Education Coordinator Comment on above: Performed By: #### B MP #### [facility] [address], [place] [id number] Urea nitrogen [Mass/Vol] 17 mg/dL Normal 7-25 [facility] Distance [employer] Coordinator Comment on above: Performed By: #### B MP #### [facility] [address], [place] [id number] Vital Signs Date Time Vital Sign Value Performing Clinician Facility 04-19-2024 09:47-0500 Body mass index (BMI) [Ratio] 52.21 kg/m2 Blossom Cody COTTON STOMPER Work Phone: [facility] 04-19-2024 09:47-0500 Body weight 172.19 kg Blossom Cody COTTON STOMPER Work Phone: [facility] 04-19-2024 09:47-0500 Diastolic blood pressure 72 mm[Hg] Blossom Cody COTTON STOMPER Work Phone: [facility] 04-19-2024 09:47-0500 Heart rate 84 /min Blossom Cody COTTON STOMPER Work Phone: [facility] 04-19-2024 09:47-0500 Systolic blood pressure 128 mm[Hg] Blossom Cody COTTON STOMPER Work Phone: [facility] 01-26-2024 09:59-0400 Body height 182.88 cm [facility] 01-26-2024 09:59-0400 Body mass index (BMI) [Ratio] 51.2 kg/m2 [facility] 01-26-2024 09:59-0400 Body weight 171.54 kg [facility] 01-26-2024 09:59-0400 Diastolic blood pressure 83 mm[Hg] [facility] 01-26-2024 09:59-0400 Heart rate 81 /min [facility] 01-26-2024 09:59-0400 Respiratory rate 18 /min [facility] 01-26-2024 09:59-0400 SaO2% (BldA) [Mass fraction] 94 % [facility] 01-26-2024 09:59-0400 Systolic blood pressure 155 mm[Hg] [facility] 01-19-2024 11:00-0400 Body mass index (BMI) [Ratio] 51.82 kg/m2 Blossom Cody COTTON STOMPER Work Phone: [facility] 01-19-2024 11:00-0400 Body weight 170.91 kg Blossom Lozoyael COTTON STOMPER Work Phone: [facility] 01-19-2024 11:00-0400 Diastolic blood pressure 78 mm[Hg] Blossom Lozoyael COTTON STOMPER Work Phone: [facility] 01-19-2024 11:00-0400 Heart rate 84 /min Blossomdidier Lozoyael COTTON STOMPER Work Phone: [facility] 01-19-2024 11:00-0400 Systolic blood pressure 136 mm[Hg] Blossom Lozoyael COTTON STOMPER Work Phone: [facility] 10-19-2023 11:31-0400 Body height 182.88 cm [facility] 10-19-2023 11:31-0400 Body mass index (BMI) [Ratio] 51.7 kg/m2 [facility] 10-19-2023 11:31-0400 Body weight 172.87 kg [facility] 10-19-2023 11:31-0400 Diastolic blood pressure 83 mm[Hg] [facility] 10-19-2023 11:31-0400 Heart rate 74 /min [facility] 10-19-2023 11:31-0400 Respiratory rate 18 /min [facility] 10-19-2023 11:31-0400 SaO2% (BldA) [Mass fraction] 97 % [facility] 10-19-2023 11:31-0400 Systolic blood pressure 149 mm[Hg] [facility] 06-16-2023 11:33-0500 Diastolic blood pressure 84 mm[Hg] Blossomdidier Lozoyael COTTON STOMPER Work Phone: [facility] 06-16-2023 11:33-0500 Systolic blood pressure 154 mm[Hg] Blossom Lozoyael COTTON STOMPER Work Phone: [facility] 06-16-2023 11:02-0500 Body mass index (BMI) [Ratio] 52.12 kg/m2 Blossomdidier Lozoyael COTTON STOMPER Work Phone: [facility] 06-16-2023 11:02-0500 Body weight 171.91 kg Blossomdidier Lozoyael COTTON STOMPER Work Phone: [facility] 06-16-2023 11:02-0500 Heart rate 92 /min Blossom Lozoyael COTTON STOMPER Work Phone: [facility] 06-09-2023 08:45-0500 Body height Tondra Mapus Other [facility] [employer] Other 06-09-2023 08:45-0500 Body height 182.88 cm MD Natalie Hernandez Work Phone: [facility] 06-09-2023 08:45-0500 Body mass index (BMI) [Ratio] 51.33 kg/m2 Tondra Mapus Other [facility] [employer] Other 06-09-2023 08:45-0500 Body weight 171.69 kg Tondra Mapus Other [facility] Other 06-09-2023 08:45-0500 Body weight 171.68 kg MD Natalie Hernandez Work Phone: [facility] 06-09-2023 08:45-0500 Diastolic blood pressure 80 mm[Hg] Tondra Mapus Other [facility] 06-09-2023 08:45-0500 Respiratory rate 18 /min Tondra Mapus Other [facility] Other 06-09-2023 08:45-0500 SaO2% (BldA) [Mass fraction] 94 % Tondra Mapus Other [facility] Other 06-09-2023 08:45-0500 Systolic blood pressure 148 mm[Hg] Tondra Mapus Other [facility] 01-04-2023 08:45-0400 Body height Tondra Mapus Other [facility] Other 01-04-2023 08:45-0400 Body mass index (BMI) [Ratio] 51.37 kg/m2 Tondra Mapus Other [facility] Other 01-04-2023 08:45-0400 Body weight 171.82 kg Tondra Mapus Other [facility] Other 01-04-2023 08:45-0400 Diastolic blood pressure 85 mm[Hg] Tondra Mapus Other [facility] Other 01-04-2023 08:45-0400 Respiratory rate 18 /min Tondra Mapus Other [facility] Other 01-04-2023 08:45-0400 SaO2% (BldA) [Mass fraction] 98 % Tondra Mapus Other [facility] Other 01-04-2023 08:45-0400 Systolic blood pressure 150 mm[Hg] Tondra Mapus Other [facility] Other 06-25-2022 09:45-0500 Body height Tondra Mapus Other [facility] Other 06-25-2022 09:45-0500 Body mass index (BMI) [Ratio] 51.14 kg/m2 Tondra Mapus Other [facility] Other 06-25-2022 09:45-0500 Body weight 171.05 kg Tondra Mapus Other [facility] Other 06-25-2022 09:45-0500 Diastolic blood pressure 80 mm[Hg] Tondra Mapus Other [facility] Other 06-25-2022 09:45-0500 Respiratory rate 18 /min Tondra Mapus Other [facility] Other 06-25-2022 09:45-0500 SaO2% (BldA) [Mass fraction] 95 % Tondra Mapus Other [facility] Other 06-25-2022 09:45-0500 Systolic blood pressure 139 mm[Hg] Tondra Mapus Other [facility] Other 01-06-2022 09:45-0400 Body height Tondra Mapus Other [facility] Other 01-06-2022 09:45-0400 Body mass index (BMI) [Ratio] 48.28 kg/m2 Tondra Mapus Other [facility] Other 01-06-2022 09:45-0400 Body weight 161.48 kg Tondra Mapus Other [facility] Other 01-06-2022 09:45-0400 Diastolic blood pressure 71 mm[Hg] Tondra Mapus Other [facility] Other 01-06-2022 09:45-0400 Respiratory rate 20 /min Tondra Mapus Other [facility] Other 01-06-2022 09:45-0400 SaO2% (BldA) [Mass fraction] 95 % Tondra Mapus Other [facility] Other 01-06-2022 09:45-0400 Systolic blood pressure 124 mm[Hg] Tondra Mapus Other [facility] Other Encounters Encounter Date Encounter Type Care Provider Facility Start: 05-26-2024 End: 05-29-2024 [facility] Result Encounter Generic External Data Provider [facility] External Department Unsolicited Start: 05-26-2024 End: 05-29-2024 [facility] Result Encounter Generic External Data Provider [facility] External Department Unsolicited Start: 04-27-2024 End: 04-29-2024 [facility] Result Encounter Generic External Data Provider [facility] External Department Unsolicited Start: 04-27-2024 End: 04-29-2024 [facility] Result Encounter Generic External Data Provider [facility] External Department Unsolicited Start: 04-26-2024 End: 04-26-2024 [facility] Facility:[facility] Start: 04-25-2024 End: 04-27-2024 [facility] Result Encounter Generic External Data Provider [facility] External Department Unsolicited Start: 04-25-2024 End: 04-27-2024 [facility] Result Encounter Generic External Data Provider [facility] External Department Unsolicited Start: 04-19-2024 End: 04-19-2024 Bamboo flowsheet Blossom Cody COTTON STOMPER Work Phone: [facility] Start: 04-19-2024 End: 04-19-2024 Bamboo flowsheet Blossom Coyd COTTON STOMPER Work Phone: [facility] Start: 04-19-2024 End: 04-19-2024 Patient encounter status Blossom Cody COTTON STOMPER Work Phone: [facility] Start: 04-19-2024 End: 04-19-2024 Periodic preventive med est patient 40-64yrs Blossom Cody COTTON STOMPER Work Phone: [facility] Comment on above: Diabetic polyneuropa thy associated with type 2 diabetes mellitus ([facility]) (Primary Dx); Wellness examination; Type 2 diabetes mellitus with neurological manifestation ([facility]); Essential hypertension; 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, subsequent encounter ([facility]); Dyslipidemia ([facility]); Hypertriglyceridemia ([facility]); Poorly controlled diabetes mellitus ([facility]); Type 2 diabetes mellitus with hyperglycemia, with long-term current use of insulin ([facility]); Amputation of toe, traumatic, left, sequela ([facility]); Essential hypertension; Diabetic autonomic neuropathy associated with type 2 diabetes mellitus ([facility]); Acquired hallux valgus, unspecified laterality; Morbid obesity ([facility]); Vitamin B 12 deficiency; 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) Start: 04-19-2024 End: 04-19-2024 ambulatory BLOSSOM CODY Not Available Start: 02-28-2024 End: 02-28-2024 Refill Natalie Hernandez MD Work Phone: [facility] Comment on above: Pure hyperglyceridem ia ([facility]) Start: 01-26-2024 End: 01-26-2024 [facility] Work Phone: Start: 01-26-2024 End: 01-26-2024 Patient encounter procedure [facility] Work Phone: Start: 01-20-2024 Non-patient / Non-visit [facility] Work Phone: Start: 01-19-2024 End: 01-19-2024 Bamboo flowsheet Blossom Cody COTTON STOMPER Work Phone: [facility] Start: 01-19-2024 End: 01-19-2024 Bamboo flowsheet Blossom Cody COTTON STOMPER Work Phone: [facility] Start: 01-19-2024 End: 01-19-2024 Office outpatient visit 25 minutes Blossom Cody COTTON STOMPER Work Phone: [facility] Comment on [...] CODY Not Available Start: 12-30-2023 End: 12-30-2023 Lenard Hernandez MD Work Phone: [facility] Comment on above: Essential hypertensi on Start: 10-29-2023 End: 10-29-2023 ambulatory MIRLANDE MOORE Not Available Start: 10-19-2023 End: 10-19-2023 ambulatory [facility] Work Phone: Start: 10-19-2023 End: 10-19-2023 Patient encounter procedure [facility] Work Phone: Start: 10-12-2023 End: 10-12-2023 ambulatory MIRLANDE MOORE Not Available Start: 09-15-2023 End: 09-15-2023 ambulatory BLOSSOM A GLO Not Available Start: 09-06-2023 End: 09-06-2023 ambulatory MIRLANDE MOORE Not Available Start: 08-02-2023 End: 08-02-2023 ambulatory MIRLANDE UGALDEHER Not Available Start: 07-07-2023 End: 07-07-2023 ambulatory BLOSSOM A GLO Not Available Start: 06-16-2023 Bamboo flowsheet Blossom cabrales COTTON STOMPER Work Phone: [facility] Start: 06-16-2023 Bamboo flowsheet Blossom cabrales COTTON STOMPER Work Phone: [facility] Start: 06-16-2023 End: 06-16-2023 Office outpatient visit 25 minutes Blossom Cody COTTON STOMPER Work Phone: [facility] Comment on above: Diabetic polyneuropa thy associated with type 2 diabetes mellitus ([facility]) (Primary Dx); Diabetic neuropathic arthropathy ([facility]); Type 2 diabetes mellitus with neurological manifestation ([facility]); 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, sequela ([facility]); Ulcer of foot due to type 2 diabetes mellitus ([facility]); Vitamin B 12 deficiency; Hx of diabetic neuropathy; 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); Hypertriglyceridemia ([facility]); 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, 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); Essential hypertension; Nasal congestion; Type 2 diabetes mellitus with diabetic autonomic neuropathy, with long-term current use of insulin ([facility]); longterm (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 (Z79.4); Acquired absence of other toe(s), unspecified side (Z89.429); Type 2 diabetes mellitus with diabetic neuropathy, with long-term current use of insulin ([facility]); Body mass index [BMI] 50.0-59.9, adult (Z68.43); Type 2 diabetes mellitus with foot ulcer, with long-term current use of insulin ([facility]); 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.49); Status post amputation of lesser toe, unspecified laterality ([facility]); Arthritis of left foot; Acquired hallux valgus of left foot; Type 2 diabetes mellitus with hyperglycemia, with long-term current use of insulin ([facility]); Morbid obesity ([facility]) Start: 06-16-2023 End: 06-16-2023 ambulatory BLOSSOM CODY Not Available Start: 06-15-2023 End: 06-15-2023 ambulatory Tondra Mapus Other [facility] Other Start: 06-15-2023 Telephone encounter Tondra Mapus [facility] Start: 06-09-2023 (DM) Diabetes Tondra Mapus [facility] Start: 06-09-2023 End: 06-09-2023 Discharged Recurring MD Natalie Hernandez Work Phone: [facility] Work Phone: Start: 06-09-2023 End: 06-09-2023 ambulatory MD Natalie Hernandez Work Phone: [facility] Other Start: 06-09-2023 End: 06-09-2023 Patient encounter procedure MD Natalie Hernandez Work Phone: [facility] Start: 01-04-2023 (DM) Diabetes Tondra Mapus [facility] Start: 01-04-2023 End: 01-04-2023 ambulatory Tondra Mapus Other [facility] Other Start: 12-21-2022 End: 12-21-2022 ambulatory Tondra Mapus Other [facility] Other Start: 12-21-2022 Telephone encounter Tondra Mapus [facility] Start: 10-12-2022 ambulatory NATANAEL Herrera lity:H1 Start: 10-06-2022 End: 10-07-2022 ambulatory NATANAEL Marks [facility] Facility:H1 Start: 10-01-2022 Encounter for prepro cedural cardiovascular examination NATANAEL Marks [facility] Start: 10-01-2022 Encounter for prepro cedural laboratory examination NATANAEL Marks [facility] Start: 09-30-2022 End: 10-01-2022 ambulatory [facility] Selina [facility] Facility:H1 Start: 09-30-2022 End: 10-01-2022 Encounter for preprocedural laboratory examination NATANAEL Marks [facility] Facility:H1 Start: 09-15-2022 End: 09-16-2022 ambulatory NATANAEL Marks [facility] Facility:H1 Start: 09-10-2022 End: 09-10-2022 ambulatory Tondra Mapus Other [facility] Other Start: 09-10-2022 Telephone encounter Tondra Mapus [facility] Start: 08-24-2022 End: 08-25-2022 ambulatory NATANAEL Marks [facility] Facility:H1 Start: 08-10-2022 End: 08-10-2022 ambulatory Tondra Mapus Other [facility] Other Start: 08-10-2022 Telephone encounter Tondra Mapus [facility] Start: 08-03-2022 End: 08-04-[address] NATALIE HERNANDEZ Facility:H1 Start: 07-13-2022 End: 07-14-2022 ambulatory MARTELL NAVAS Facility:H1 Start: 06-30-2022 End: 07-01-2022 ambulatory NATANAEL Marks [facility] Facility:H1 Start: 06-25-2022 (DM) Diabetes Tondra Mapus [facility] Start: 06-25-2022 End: 06-25-2022 ambulatory Tondra Mapus Other [facility] Other Start: 06-16-2022 End: 06-17-2022 ambulatory NATANAEL Marks [facility] Facility:H1 Start: 06-08-2022 End: 01-31-2023 ambulatory PETER D HIGHLANDER Facility:H1 Start: 05-25-2022 [...] 02-18-2022 End: 02-18-2022 ambulatory Tondra Mapus Other [facility] Other Start: 02-18-2022 Telephone encounter Tondra Dayannaus [facility] Start: 02-09-2022 End: 02-10-2022 ambulatory PETER D HIGHLANDER Facility:H1 Start: 01-26-2022 End: 01-27-2022 ambulatory PETER D HIGHLANDER Facility:H1 Start: 01-13-2022 End: 01-14-2022 ambulatory PETER D HIGHLANDER Facility:H1 Start: 01-06-2022 (DM) Diabetes Tondra Mapus [facility] Start: 01-06-2022 End: 01-06-2022 ambulatory Tondra Mapus Other [facility] Other Start: 12-29-2021 End: 12-30-2021 ambulatory PETER [...] HIGHLANDER Facility:H1 Start: 11-17-2021 End: 11-18-2021 ambulatory NATANAEL D HIGHLANDER Facility:H1 Start: 11-14-2021 End: 11-15-2021 ambulatory NATANAEL Marks [facility] Facility:H1 Start: 11-11-2021 End: 11-12-2021 ambulatory NATANAEL D HIGHLANDER Facility:H1 Start: 11-06-2021 End: 11-07-2021 ambulatory NATANAEL D HIGHLANDER Facility:H1 Start: 11-03-2021 End: 11-04-2021 ambulatory NATANAEL Marks [facility] Facility:H1 Start: 10-30-2021 End: 10-31-2021 ambulatory NATANAEL Marks [facility] Facility:H1 Start: 10-27-2021 End: 10-28-2021 ambulatory NATANAEL Marks [facility] Facility:H1 Start: 10-23-2021 End: 10-24-2021 ambulatory NATANAEL Marks [facility] Facility:H1 Start: 10-21-2021 End: 10-22-2021 ambulatory NATANAEL D HIGHLANDER Facility:H1 Start: 10-20-2021 End: 10-21-2021 ambulatory NATANAEL D HIGHLANDER Facility:H1 Procedures Date Procedure Procedure Detail Performing Clinician Start: 05-26-2024 AEROBIC CULTURE Generic External Data Provider Start: 04-27-2024 BLOOD CULTURE 2 Generic External Data Provider Start: 04-27-2024 BLOOD CULTURE 1 Generic External Data Provider Start: 04-25-2024 BLOOD CULTURE 2 Generic External Data Provider Amputation of toe Tondra Map us Other History of amputatio n of lesser toe Status post amputation of lesser toe, unspecified laterality ([facility]) Blossom Cody NP Work Phone: Plan of Treatment Date Care Activity Detail Author Start: 07-26-2025 Glaucoma screening Diabetes: Retinopathy Screening [facility] Start: 07-19-2024 End: 07-19-2024 Patient encounter procedure 07/19/2024 9:30 AM EDT Office Visit [facility] [address] [place] [address] Blossom Cody NP [address] [place], [place] [id number] [facility] Start: 04-26-2024 Hemoglobin A1c measurement Diabetes: Hemoglobin A1C [facility] Start: 04-19-2024 End: 04-19-2024 Patient encounter procedure [facility] Comment on above: Diabetic polyneuropathy associated with type 2 diabetes mellitus ([facility]) (Primary Dx); Wellness examination; Type 2 diabetes mellitus with neurological manifestation ([facility]); Essential hypertension; 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, subsequent encounter ([facility]); Dyslipidemia ([facility]); Hypertriglyceridemia ([facility]); Poorly controlled diabetes mellitus ([facility]); Type 2 diabetes mellitus with hyperglycemia, with long-term current use of insulin ([facility]); Amputation of toe, traumatic, left, sequela ([facility]) Start: 03-24-2024 Urine screening for protein Diabetes: Urine Protein Screening [facility] Start: 03-15-2024 Influenza vaccination Influenza Vaccine (#1) [facility] Comment on above: Postponed from 01/09/2024 (Patient Refus ed) Start: 01-25-2024 End: 01-25-2024 Patient encounter procedure 01/25/2024 10:30 AM EDT [facility] [address] [place] [address] Blossom Cody NP [address] [place], [place] [phone] [facility] Start: 01-19-2024 Hemoglobin A1c measurement Diabetes: Hemoglobin A1C [facility] Start: 01-19-2024 End: 01-19-2024 Patient encounter procedure 01/19/2024 11:00 AM EDT Office Visit [facility] [address] [place] [address] Blossom Cody NP [address] [place] [address] Diabetic polyneuropathy associated with type 2 diabetes mellitus ([facility]/HCC) (Primary Dx); 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); Essential hypertension; 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, subsequent encounter ([facility]/HCC); Type 2 diabetes mellitus with hyperglycemia, with long-term current use of insulin ([facility]/HCC); Dyslipidemia (CMS/HCC); Hypertriglyceridemia (CMS/HCC); Amputation of toe, traumatic, left, sequela (CMS/HCC); Vitamin B 12 deficiency [facility] Comment on above: Diabetic polyneuropathy associated with type 2 diabetes mellitus (CMS/HCC) (Primary Dx); 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); Essential hypertension; 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, subsequent encounter ([facility]/HCC); Type 2 diabetes mellitus with hyperglycemia, with long-term current use of insulin ([facility]/HCC); Dyslipidemia (CMS/HCC); Hypertriglyceridemia (CMS/HCC); Amputation of toe, traumatic, left, sequela ([facility]/HCC); Vitamin B 12 deficiency Start: 01-09-2024 Influenza vaccination Influenza Vaccine (#1) [facility] Start: 09-15-2023 End: 09-15-2023 Patient encounter procedure 09/15/2023 9:30 AM EDT Office Visit [facility] [address] [place] [address] Blossom Cody NP [address] [place], [place] [phone] [facility] Start: 09-07-2023 Hemoglobin A1c measurement Diabetes: Hemoglobin A1C [facility] Start: 07-26-2023 Glaucoma screening Diabetes: Retinopathy Screening [facility] Start: 07-07-2023 End: 07-07-2023 Patient encounter procedure 07/07/2023 9:00 AM EST Office Visit [facility] [address] [place] [address] [facility] Start: 06-16-2023 End: 06-16-2023 Patient encounter procedure 06/16/2023 11:00 AM EST Office Visit [facility] [address] [place] [address] Blossom Cody NP [address] [place] [address] Diabetic polyneuropathy associated with type 2 diabetes [...] Morbid obesity (CMS/HCC); Hypertriglyceridemia (CMS/HCC) [facility] Comment on above: Diabetic polyneuropathy associated with [...] disorder (CMS/HCC); Morbid obesity (CMS/HCC); Hypertriglyceridemia (CMS/HCC) AEROBIC CULTURE AEROBIC CULTURE Lab Routine 05/26/2024 6:16 PM EST [facility] BLOOD CULTURE 1 BLOOD CULTURE 1 Lab Routine 04/27/2024 6:10 AM EST [facility] BLOOD CULTURE 2 BLOOD CULTURE 2 Lab Routine 04/25/2024 1:00 PM EST [facility] BLOOD CULTURE 2 BLOOD CULTURE 2 Lab Routine 04/27/2024 6:24 AM EST [facility] Comprehensive metabo lic 2000 panel - Serum or Plasma [facility] Patient Education Diabetes and diet [facility] Work Phone: [facility] Immunizations Immunization Date Immunization Notes Care Provider Huong carla 03-14-2024 influenza, seasonal, injectable, preservative free Blossom Glo [employer] Work Phone: [facility] 03-14-2024 influenza virus vacc ine, unspecified formulation Blossom Glo [employer] Work Phone: [facility] 07-05-2023 tetanus and diphther ia toxoids, adsorbed, preservative free, for adult use (2 Lf of tetanus toxoid and 2 Lf of diphtheria toxoid) Natalie Hernandez MD Work Phone: [facility] 03-24-2023 influenza, injectabl e, quadrivalent, preservative free Blossom Glo [employer] Work Phone: [facility] 03-24-2023 influenza virus vacc ine, unspecified formulation Natalie Hernandez MD Work Phone: [facility] 08-26-2021 tetanus and diphther ia toxoids, adsorbed, preservative free, for adult use (5 Lf of tetanus toxoid and 2 Lf of diphtheria toxoid) Blossom Cody [employer] Work Phone: [facility] 03-28-2021 influenza, injectabl e, quadrivalent, preservative free Blossom Glo [employer] Work Phone: [facility] 02-13-2020 Influenza, injectabl e, [place] Canine Kidney, preservative free, quadrivalent Blossom Glo [employer] Work Phone: [facility] 02-22-2019 influenza, injectabl e, quadrivalent, preservative free Blossom Glo [employer] Work Phone: [facility] 02-07-2018 influenza, injectabl e, quadrivalent, preservative free Blossom Glo [employer] Work Phone: [facility] Payers Date Payer Category Payer Private Health Insurance [facility] [id number] 2022 Unknown [id number] 2020 Self-pay [id number] 1979 Unknown [id number] 2.16.840.1.466792.3.579. 2.593 1979 Unknown [id number] 2.16.840.1.037358.3.579. 2.593 1979 Unknown [id number] 2.16.840.1.683465.3.579. 2.593 1979 Unknown [id number] 2.16.840.1.827675.3.579. 2.593 1979 Unknown [id number] 2.16.840.1.966969.3.579. 2.593 1979 Unknown [id number] 2.16.840.1.310961.3.579. 2.593 1979 Unknown [id number] 2.16.840.1.921193.3.579. 2.593 1979 Unknown [id number] 2.16.840.1.173160.3.579. 2.593 1979 Unknown [id number] 2.16.840.1.984555.3.579. 2.593 1979 Unknown [id number] 2.16.840.1.949810.3.579. 2.593 1979 Unknown [id number] 2.16.840.1.306765.3.579. 2.593 1979 Unknown [id number] 2.16.840.1.581697.3.579. 2.593 1979 Unknown [id number] 2.16.840.1.937639.3.579. 2.593 1979 Unknown [id number] 2.16.840.1.344973.3.579. 2.593 1979 Unknown [id number] 2.16.840.1.157540.3.579. 2.593 1979 Unknown [id number] 2.16.840.1.716334.3.579. 2.593 1979 Unknown [id number] 2.16.840.1.670550.3.579. 2.593 1979 Unknown [id number] 2.16.840.1.586059.3.579. 2.593 1979 Unknown [id number] 2.16.840.1.442807.3.579. 2.593 1979 Unknown [id number] 2.16.840.1.178174.3.579. 2.593 1979 Unknown [id number] 2.16.840.1.480889.3.579. 2.593 1979 Unknown [id number] 2.16.840.1.616987.3.579. 2.593 1979 Unknown [id number] 2.16.840.1.995251.3.579. 2.593 1979 Unknown [id number] 2.16.840.1.706123.3.579. 2.593 1979 Unknown [id number] 2.16.840.1.968817.3.579. 2.593 1979 Unknown [id number] 2.16.840.1.863365.3.579. 2.593 1979 Unknown [id number] 2.16.840.1.723251.3.579. 2.593 1979 Unknown [id number] 2.16.840.1.533117.3.579. 2.593 1979 Unknown [id number] 2.16.840.1.081277.3.579. 2.593 1979 Unknown [id number] 2.16.840.1.393121.3.579. 2.593 1979 Unknown [id number] 2.16.840.1.496695.3.579. 2.593 1979 Unknown [id number] 2.16.840.1.380200.3.579. 2.593 1979 Unknown [id number] 2.16.840.1.434934.3.579. 2.593 1979 Unknown [id number] 2.16.840.1.914253.3.579. 2.593 1979 Unknown [id number] 2.16.840.1.301095.3.579. 2.593 1979 Unknown [id number] 2.16.840.1.895260.3.579. 2.593 1979 Unknown [id number] 2.16.840.1.145840.3.579. 2.593 1979 Unknown [id number] 2.16.840.1.663564.3.579. 2.593 1979 Unknown [id number] 2.16.840.1.868563.3.579. 2.593 1979 Unknown [id number] 2.16.840.1.251610.3.579. 2.593 1979 Unknown [id number] 2.16.840.1.088951.3.579. 2.593 1979 Unknown [id number] 2.16.840.1.114004.3.579. 2.1258 1979 Unknown [id number] 2.16.840.1.848689.3.579. 2.1258 1979 Unknown [id number] 2.16.840.1.819973.3.579. 2.1258 1979 Unknown [id number] 2.16.840.1.012976.3.579. 2.1258 1979 Unknown [id number] 2.16.840.1.116932.3.579. 2.1258 1979 Unknown [id number] 2.16.840.1.040284.3.579. 2.1258 1979 Unknown [id number] 2.16.840.1.724306.3.579. 2.1258 1979 Unknown [id number] 2.16.840.1.046688.3.579. 2.1258 1979 Unknown [id number] 2.16.840.1.323585.3.579. 2.9 1959 Unknown [id number] 2.16.840.1.040853.19 1959 Unknown [id number] 2.16.840.1.616946.19 Unknown [id number] 2.16.840.1.440057.3.579. 2.531 Unknown [id number] 2.16.840.1.427748.3.579. 2.531 Social History Date Type Detail Facility Unknown if ever smoked [facility] Other Start: 03-23-2023 End: 04-19-2024 Sex Assigned At [facility] Start: 12-21-2022 Tobacco smoking status WYIS Never smoked tobacco [facility] Start: 12-21-2022 Tobacco use and exposure Smokeless tobacco non-user [facility] Start: 05-18-2023 End: 04-27-2024 Alcohol intake Current drinker of alcohol (finding) [facility] Start: 03-23-2023 End: 05-18-2023 [...] Start: 1980 Sex Assigned At Male F [facility] Start: 10-19-2023 Tobacco smoking status NHIS Ex-smoker (finding) [facility] Equipment Procedure Code Equipment Code Equipment [...] units daily and coverage. Last eye exam . Not watching BP at home. Review of [...] of toe of right foot, subsequent encounter (CMS/HCC) Comments: Sees Dr Feldman and Oscar Dyslipidemia (CMS/HCC) Comments: Lipids: Chol 126, Trig 219, HDL [...] valgus, unspecified laterality: Sees Podiatry Morbid obesity (CMS/HCC): See above Vitamin B12 deficiency: 374 on recent lab in Jan Lipoprotein deficiency disorder F/U in July or August for recheck-hypertension/Diabetes, sooner if concerns documented in this encounter [facility] 02-28-2024 Telephone encount er Note Rx sent [facility] 02-28-2024 Miscellaneous Notes Formattin g of this note might be different from the original. Rx sent documented in this encounter [facility] 01-19-2024 History of Presen t [...] diabetes mellitus ([facility]) Comments: HgbA1c 9.7 in October. He sees Endo. Plans to do lab for them this week. He has Endo appt next week. Enc yearly eye exams. Enc to watch portions on carbs, avoid sweets. Try to be as active as able. Type 2 diabetes mellitus with neurological manifestation ([facility]) Essential hypertension: Controlled. Pt will verify what dose he has at home ie 30 or 40mg of Lisinopril. 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 Avoid sweets, more fruits and mainly non-starchy vegetables, lean protien, nuts and routine exercise. Amputation of toe, traumatic, left, sequela ([facility]) Vitamin B 12 deficiency Comments: Last Vit B12 351 Pt declined flu vaccine today, prefers to wait into later February, could stop back here or do at work or pharmacy. Does not plan to get any more covid vaccines. Enc to think about Prevnar 20. F/U in 3 months for Wellness, sooner if concerns. PVU documented in this encounter [facility] 12-30-2023 Telephone encount er Note Rx sent [facility] 12-30-2023 Miscellaneous Notes Formattin g of this note might be different from the original. Rx sent documented in this encounter [facility] 06-16-2023 History of Presen t [...] sugars ranging from 120-170's. Sees [facility] in [place], next appt September 13 with them. Taking [...] ([facility]/HCC) Comments: Aislinn Lewis, last HgbA1c 8.11 May 2023 (prior 8.9 end of December). Pt asked me why we can't just take care of his Diabetes, so he doesn't have to go to [place]. I told him because his sugars are [...] current use of insulin (CMS/HCC): Hx of longterm (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 (Z79.4): Hx of [...] Type 2 Diabetes mellitus with hyperglycemia with chcf current use of insulin (CMS/HCC): Hx of Morbid obesity: See above documented in this encounter [facility] 06-15-2023 Evaluation note Encounter Date Diagnosis Assessment Notes Jun, Type 2 diabetes mellitus with hyperglycemia (ICD-10 - E11.65) [facility] Other 01-31-2024 Evaluation note* Encounter Date Diagnosis [...] f/u with pcp for further recommendation May, longterm current use of insulin (ICD-10 - Z79.4) May, Vitamin B 12 deficiency (ICD-10 - E53.8) 04/01 vit b 12 351 at target May, BMI 50.0-59.9, adult (ICD-10 - Z68.43) see above May, Amputation toe (ICD-10 - Z89.429) Keep f/u with Dr. Feldman May, Cracked skin on feet (ICD-10 - R23.4) keep f/u with Dr. Feldman [facility] Other 08-28-2023 Evaluation note* Encounter Date Diagnosis [...] for Lispro/ozempic 0.5mg sent to [facility] in [place] 01/04/23 7. Prescriptions will not be filled [...] (hypertension) (ICD-10 - I10) on julissa Dec, longterm current use of insulin (ICD-10 - Z79.4) Dec, Vitamin B 12 deficiency (ICD-10 - E53.8) 12/30 vit b 12 335 at target Dec, BMI 50.0-59.9, adult (ICD-10 - Z68.43) see above Dec, Wound of foot (ICD-10 - S91.309A) pt has apt scheduled with Dr. Feldman [facility] Other 05-30-2023 NotePROCEDURE: XR FOOT LT MIN [...] Electronically authenticated by: FRANCO FRANCES Date: 2022-10-06 14:13[facility]05-04-2023 Evaluation note* Encounter Date Diagnosis Assessment Notes Treatment Notes Treatment Clinical Notes September, Type 2 diabetes mellitus with hyperglycemia (ICD-10 - E11.65) [facility] Other 04-17-2023 NotePROCEDURE: XR FOOT LT MIN [...] Electronically authenticated by: FERN SOSA Date: 2022-08-24 12:46[facility]02-16-2023 Evaluation note* Encounter Date Diagnosis Assessment Notes Treatment Notes Treatment Clinical Notes Jun, Type 2 diabetes mellitus with hyperglycemia (ICD-10 - E11.65) 1. Uncontrolled, a Type 2 diabetes with A1c of 8.2% 2. Blood glucose levels above target. Discussed with pt restarting ozempic, he had s/e from higher dose ozempic 1mg and concern with cost works at [employer]. Pt agreeable to starting sample ozempic 0.5mg [...] sent to [facility] [place] 06/25/22 7. Prescriptions will not be filled [...] (hypertension) (ICD-10 - I10) on julissa Jun, longterm current use of insulin (ICD-10 - Z79.4) Jun, Vitamin B 12 deficiency (ICD-10 - E53.8) 12/28 vit b 12 423 at target Jun, BMI 50.0-59.9, adult (ICD-10 - Z68.43) [facility] Other 02-07-2023 NotePROCEDURE: XR ANKLE LT MIN [...] Electronically authenticated by: GISSEL RUBIO Date: 2022-06-16 16:33[facility]02-07-2023 NotePROCEDURE: XR ANKLE LT MIN [...] Electronically authenticated by: GISSEL RUBIO Date: 2022-06-16 16:33[facility]08-30-2022 Evaluation note* Encounter Date Diagnosis [...] 12/28 ldl 71 at target on statin 30 Aug, 2022 HTN (hypertension) (ICD-10 - I10) on julissa Dec, lobsterman current use of insulin (ICD-10 - Z79.4) Dec, Vitamin B 12 deficiency (ICD-10 - E53.8) 12/28 vit b 12 423 at target Dec, BMI 45.0-49.9, adult (ICD-10 - Z68.42) 14 pound weight loss from last visit, continue with weight loss efforts [facility] Other 01-01-2021 History general Narrative - Reported* Type Description Date Medical History type II diabetes Medical History hypertension Medical History hyperlipidemia Medical History covid 05/2020 Surgical History Ulcer on left great toe X2 Surgical History Partial amputation Right great toe 01/2021 Surgical History All toes right foot amputated Hospitalization History Toe infection 2017 [facility] Other 01-01-2021 History general Narrative - Reported* Type Description Date Medical History type II diabetes Medical History hypertension Medical History hyperlipidemia Medical History covid 05/2020 Surgical History Ulcer on left great toe X2 Surgical History Partial amputation Right great toe 01/2021 Surgical History All toes right foot amputated Surgical History Left great toe corre ctive surgery with Dr. Feldman in [place] 10/2022 Hospitalization History Toe infection 2017 [facility] Other [place] complaint+Reason for visit Narrative* Chief Complaint no meter Reason for Visit BMI 50.0-59.9, adult Dietary counseling and surveillance Hypertension Mixed hyperlipidemia Type 2 diabetes mellitus with hyperglycemia [facility] Work Phone: [place] complaint+Reason for visit Narrative* Chief Complaint meter Reason for Visit BMI 50.0-59.9, adult Dietary counseling and surveillance Hypertension Mixed hyperlipidemia Type 2 diabetes mellitus with hyperglycemia Wound of left foot Wound of right foot [facility] Work Phone: Evaluation noteNo InformationNort [employer] Other evaluation note* Diagnosis Diabetic polyneuropathy associated with type 2 diabetes mellitus (CMS/HCC)- Primary Diabetic neuropathic arthropathy (CMS/HCC) Type II or unspecified type diabetes mellitus with neurological manifestations, not stated as uncontrolled Type 2 diabetes mellitus with neurological manifestation ([facility]) 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, sequela ([facility]) Ulcer of foot due to type 2 diabetes mellitus ([facility]) Vitamin B 12 deficiency Other B-complex deficiencies Hx of diabetic neuropathy 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) Lipoprotein deficiencies Hypertriglyceridemia ([facility]/HCC) Pure hyperglyceridemia 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, 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) Essential hypertension Unspecified essential hypertension Nasal congestion Other diseases of nasal cavity and sinuses Type 2 diabetes mellitus with diabetic autonomic neuropathy, with long-term current use of insulin ([facility]/HCC) longterm (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 (Z79.4) Acquired absence of other toe(s), unspecified side (Z89.429) Type 2 diabetes mellitus with diabetic neuropathy, with long-term current use of insulin ([facility]) Body mass index [BMI] 50.0-59.9, adult (Z68.43) Type 2 diabetes mellitus with foot ulcer, with long-term current use of insulin ([facility]) 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.49) Status post amputation of lesser toe, unspecified laterality ([facility]) Arthritis of left foot Acquired hallux valgus of left foot Type 2 diabetes mellitus with hyperglycemia, with long-term current use of insulin ([facility]) Morbid obesity ([facility]) Morbid obesity documented in this encounter [facility] HealthcareEvaluation noteNo assessment information availableAdena [facility] Work Phone: Evaluation note* Diagnosis Onset Date Resolution Status BMI 50.0-59.9, adult acute Dietary counseling and surveillance acute Hypertension acute Mixed hyperlipidemia acute Type 2 diabetes mellitus with hyperglycemia [facility] Work Phone: Evaluation note* Diagnosis Onset Date Resolution Status BMI 50.0-59.9, adult acute Dietary counseling and surveillance acute Hypertension acute Mixed hyperlipidemia acute Type 2 diabetes mellitus with hyperglycemia acute Wound of left foot acute Wound of right foot [facility] Work Phone: Evaluation note* Diagnosis Pure hyperglyceridemia ([facility]) Pure hyperglyceridemia documented in this encounter [facility] HealthcareEvaluation note* Diagnosis Diabetic polyneuropathy associated with type 2 diabetes mellitus ([facility])- Primary Type 2 diabetes mellitus with neurological manifestation ([facility]) Essential hypertension Unspecified essential hypertension 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, subsequent encounter ([facility]) Type 2 diabetes mellitus with hyperglycemia, with long-term current use of insulin ([facility]) Dyslipidemia ([facility]) Other and unspecified hyperlipidemia Hypertriglyceridemia ([facility]) Pure hyperglyceridemia Vitamin B 12 deficiency Other B-complex deficiencies Pure hyperglyceridemia ([facility]) Pure hyperglyceridemia documented in this encounter [facility] Healthcare[facility] note* Diagnosis Diabetic polyneuropathy associated with type 2 diabetes mellitus ([facility])- Primary Wellness examination Type 2 diabetes mellitus with neurological manifestation ([facility]) Essential hypertension Unspecified essential hypertension 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, subsequent encounter ([facility]) Dyslipidemia ([facility]) Other and unspecified hyperlipidemia Hypertriglyceridemia ([facility]) Pure hyperglyceridemia Poorly controlled diabetes mellitus ([facility]) Type II or unspecified type diabetes mellitus without mention of complication, not stated as uncontrolled Type 2 diabetes mellitus with hyperglycemia, with long-term current use of insulin ([facility]) Diabetic autonomic neuropathy associated with type 2 diabetes mellitus ([facility]) Type II or unspecified type diabetes mellitus with neurological manifestations, not stated as uncontrolled Acquired hallux valgus, unspecified laterality Morbid obesity ([facility]) Morbid obesity Vitamin B 12 deficiency Other B-complex deficiencies 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[facility]) Lipoprotein deficiencies documented in this [...] section and content) DATE CREATED AUTHOR 08/27/2021 [facility] DATE CREATED AUTHOR AUTHOR'S ORGANIZ ATION 10/17/2022 [facility] DATE CREATED AUTHOR AUTHOR'S ORGANIZ ATION 04/22/2024 [facility] EPIC DATE CREATED AUTHOR AUTHOR'S ORGANIZ ATION 04/29/2024 [facility] REASON FOR VISIT (unrecogniz ed [...] January 26, 2024 End: January 26, 2024 Senior Telecommunications Specialist Relationship Specialty Start Date End Date Natalie Hernandez MD [address] [place] [address] PCP - General Family Medicine 09/15/22 Senior Telecommunications Specialist Relationship Specialty Start Date End Date Natalie Hernandez MD [address] [facility] ([place], [place]) [place] [address] PCP - General Family Medicine 09/15/22 Team [...] 2023 End: October 19, 2023 Link Ortega , SCALLOP CUTTER MACHINE Attending Provider Active Start: October 19, 2023 End: October 19, 2023 Senior Telecommunications Specialist Relationship Specialty Start Date End Date Natalie Hernandez MD [address] [facility] ([place], [place]) [place] [address] PCP - General Family Medicine 09/15/22 Blossom Cody NP [address] [facility] [place] [address] Nurse Practitioner Family Medicine 01/19/24 Senior Telecommunications Specialist Relationship Specialty Start Date End Date Natalie Hernandez MD [address] [facility] [place] [address] PCP - General Family Medicine 09/15/22 Blossom Cody NP [address] [facility] [place] [address] Nurse Practitioner Family Medicine 01/19/24 Senior Telecommunications Specialist Relationship Specialty Start Date End Date Natalie Hernandez MD [address] [facility] [place] [address] PCP - General Family Medicine 09/15/22 Blossom Cody NP [address] [place] [address] Nurse Practitioner Family Medicine 01/19/24 Senior Telecommunications Specialist Relationship Specialty Start Date End Date Natalie Hernandez MD [address] [facility] [place] [address] PCP - General Family Medicine 09/15/22 Blossom Cody NP [address] [place] [address] Nurse Practitioner Family Medicine 01/19/24 Senior Telecommunications Specialist Relationship Specialty Start Date End Date Natalie Hernandez MD [address] [facility] ([place], [place] [place] [address] PCP - General Family Medicine 09/15/22 Senior Telecommunications Specialist Relationship Specialty Start Date End Date Natalie Hernandez MD [address] [facility], [place] [place] [address] PCP - General Family Medicine 09/15/22 Senior Telecommunications Specialist Relationship Specialty Start Date End Date Natalie Hernandez MD [address] [facility] ([place], [place] [place] [address] PCP - General Family Medicine 09/15/22 Blossom Cody NP [address] [facility] [place] [place] [address] Nurse Practitioner Family Medicine 01/19/24 Senior Telecommunications Specialist Relationship Specialty Start Date End Date Natalie Hernandez MD [address] [facility], [place] [place] [address] PCP - General Family Medicine 09/15/22 Blossom Cody NP [address] [facility] [place] [address] Nurse Practitioner Family Medicine 01/19/24 Goals (unrecognized [...] BE BASED ON THE PRIMARY CLINICAL RECORDS. [facility] [employer] [facility]. provides no warranty or guarantee of the accuracy or completeness of information in this document.
[2024-05-31 06:36] LABS: Basophils Absolute Auto 0.1 10^3/uL (0.0-0.1); Basophils Percent Auto 0.8 % (0.2-2.0); Eosinophils Absolute Auto 0.2 10^3/uL (0.0-0.7); Eosinophils Percent Auto 3.3 % (0.9-7.0); Hematocrit 30.7 % (42.0-54.0); Immature Granulocytes Abs Auto 0.12 10^3/uL (0.00-0.03); Immature Granulocytes Pct Auto 1.9 % (0.0-0.5); Lymphocytes Absolute Auto 1.3 10^3/uL (1.2-3.8); Lymphocytes Percent Auto 19.8 % (20.5-60.0); Mean Corpuscular HGB Conc 32.6 g/dL (29.9-35.2); Mean Corpuscular Volume 92.2 fL (80.0-94.0); Mean Platelet Volume 9.2 fL (9.5-13.5); Monocytes Absolute Auto 0.5 10^3/uL (0.3-0.8); Monocytes Percent Auto 7.8 % (1.7-12.0); Neutrophils Absolute Auto 4.3 10^3/uL (1.4-6.5); Neutrophils Percent Auto 66.4 % (43.0-75.0); Platelet Count 254 10^3/uL (150-450); Red Blood Count 3.33 10^6/uL (4.70-6.10); Red Cell Distribution Width 13.5 % (11.0-15.0); White Blood Count 6.4 10^3/uL (4.0-11.0)
[2024-05-31 06:37] LABS: A. calcoaceticus-baumannii Cpx NOT DETECTED (NOT DETECTE); Bacteroides fragilis NOT DETECTED (NOT DETECTE); Candida albicans NOT DETECTED (NOT DETECTE); Candida auris NOT DETECTED (NOT DETECTE); Candida glabrata NOT DETECTED (NOT DETECTE); Candida krusei NOT DETECTED (NOT DETECTE); Candida parapsilosis NOT DETECTED (NOT DETECTE); Candida tropicalis NOT DETECTED (NOT DETECTE); Cryptococcus neoformans/gattii NOT DETECTED (NOT DETECTE); Enterobacter cloacae complex NOT DETECTED (NOT DETECTE); Enterobacterales NOT DETECTED (NOT DETECTE); Enterococcus faecalis NOT DETECTED (NOT DETECTE); Enterococcus faecium NOT DETECTED (NOT DETECTE); Haemophilus influenzae NOT DETECTED (NOT DETECTE); Klebsiella aerogenes NOT DETECTED (NOT DETECTE); Klebsiella pneumoniae group NOT DETECTED (NOT DETECTE); Listeria monocytogenes NOT DETECTED (NOT DETECTE); Neisseria meningitidis NOT DETECTED (NOT DETECTE); Proteus spp. NOT DETECTED (NOT DETECTE); Pseudomonas aeruginosa NOT DETECTED (NOT DETECTE); Salmonella spp. NOT DETECTED (NOT DETECTE); Serratia marcescens NOT DETECTED (NOT DETECTE); Staphylococcus lugdunensis NOT DETECTED (NOT DETECTE); Stenotrophomonas maltophilia NOT DETECTED (NOT DETECTE); Streptococcus agalactiae NOT DETECTED (NOT DETECTE); Streptococcus pneumoniae NOT DETECTED (NOT DETECTE); Streptococcus pyogenes NOT DETECTED (NOT DETECTE); Streptococcus spp. NOT DETECTED (NOT DETECTE)
[2024-05-31 06:54] LABS: Alanine Aminotransferase 22 U/L (16-63); Albumin Globulin Ratio 0.7; Albumin Level 2.8 g/dL (3.4-5.0); Alkaline Phosphatase 90 U/L (46-116); Anion Gap 13.3; Aspartate Amino Transferase 20 U/L (15-37); BUN Creatinine Ratio 10.2; Bilirubin Total 0.4 mg/dL (0.2-1.0); Calcium 8.8 mg/dL (8.5-10.1); Carbon Dioxide 28.1 mmol/L (21.0-32.0); Chloride 105 mmol/L (98-107); Estimated GFR (African America >60 (>=60 mL/min/1.73m^2); Estimated GFR (Non-African Ame >60 (>=60 mL/min/1.73m^2); Globulin 4.3 g/dL; Glucose 100 mg/dL (74-106); Potassium 4.4 mmol/L (3.5-5.1); Sodium 142 mmol/L (136-145); Total Protein 7.1 g/dL (6.4-8.2)
[2024-05-31 07:52] LABS: Source BLOOD
[2024-05-31 07:59] LABS: Staphylococcus epidermidis DETECTED (NOT DETECTE); Staphylococcus spp. DETECTED (NOT DETECTE); mecA/C DETECTED (NOT DETECTE)
--- NOTE | 2024-05-31 08:50 | PM.ORONB ---
Brief Operative Note Date of procedure: 05/31/24 Pre-op diagnosis general: Right diabetic foot infection, ulceration with abscess/cellulitis Post-op diagnosis: same as pre-op Procedure: Procedure performed: Right foot I&D of abscess, application of short leg splint Indications for procedure: Patient is a 43-year-old male well-known to my practice who has been treated for multiple diabetic foot complications. Most recently he has been being treated in our wound center for nonhealing right foot ulcer which a month ago became infected and he underwent 2 I&D's on 04/26/2024 and 04/28/24. Up until last week he was doing well with showing signs of progress with a wound VAC and receiving treatment at assisted facility. He presented to the wound center yesterday with increased redness and purulent drainage from the medial ankle. He was sent to the emergency department and was admitted and started on broad-spectrum antibiotics. Prior cultures demonstrated group be strep and MRSA. At bedside this morning patient denies systemic signs of infection and right foot pain. I discussed that this infection continues to be limb threatening and repeat I&D is indicated. All questions were answered to his satisfaction and consent was obtained. Intraoperative findings: Preoperative wound measured 11.4 x 8.6 cm. Erythema has greatly subsided as compared to yesterday. Scant superficial purulence noted at the proximal aspect of the ulcer corresponding to the medial ankle. No tendon or bone exposure Procedure in detail: Patient was identified in preop holding by myself which time correct side and site were marked and consent was obtained. Patient is receiving vancomycin and Zosyn on the floor and no additional antibiotics were given. Patient is brought back to the operating theater placed on table in supine position. IV sedation was administered and the right lower extremity was prepped and draped in usual sterile fashion. Formal timeout was performed. 20 cc of 1% lidocaine plain were used as local anesthetic and injected as a standard ankle block. Incision was placed over the tarsal tunnel and the wound was inspected and noted only scant purulence which was limited to the skin and skin structures. Tissue from this aspect of the wound was obtained and sent to microbiology. No evidence of deep space infection or involvement of tendon or bone. The ulcer was then excisionally debrided with a combination of scalpel and forceps as well as curettes to 100% healthy granular base. Debridement was performed down to and including fat and fascia. Hemostasis was controlled on the field with a temporary pressure dressing. Once hemostasis was obtained a dry sterile dressing and multilayer modified Pastor posterior splint was applied. Patient tolerated procedure and anesthesia well was transported to the recovery room with vital signs stable. Postoperative plan: Nonweightbearing right lower extremity Discharge planning per medicine - discussed with Dr. Guerrier - patient to return to SNF once arrangements made Patient to be discharged on Zyvox Patient to follow-up with me next week Anesthesia: MAC and local Surgeon: Jesus Feldman Estimated blood loss (mL): 25 Tourniquet time (min): 0 Pathology: other (Tissue right medial ankle) Condition: stable Disposition: PACU
[2024-05-31] MEDS: LIDOCAINE HCL 1% 100 MG/10 ML MDV INJ (09:28)
[2024-05-31] MEDS: VANCOMYCIN HCL 1,000 MG VIAL 1000 MG TOPICAL (09:45)
--- NOTE | 2024-05-31 10:15 | CM.NOTE ---
Rounds made with Dr. Guerrier pt in OR.
--- NOTE | 2024-05-31 10:17 | SWNOTE1 ---
SW reached out to Chris at [facility]. Pt is there skilled still and he is a precert to return.
[2024-05-31 10:32] LABS: Glucometer 101 mg/dL (74-106)
[2024-05-31] MEDS: LACTATED RINGER'S SOLUTION 1,000 ML 125 ML IV (11:01)
[2024-05-31] MEDS: ATORVASTATIN CALCIUM 40 MG TABLET PO (11:10)
[2024-05-31] MEDS: ENOXAPARIN SODIUM 40 MG/0.4 ML SYRINGE SUBQ ×2 (11:10→21:18)
[2024-05-31] MEDS: ASPIRIN 81 MG TABLET.DR PO (11:10)
--- NOTE | 2024-05-31 13:55 | CM.NOTE ---
Pt inquiring about paying for bed hold at [facility] and need for precert to return. Talked with pt about this being true d/t change in status and need for hospital stay. PT and OT will re-evaluate pt and precertification will be restarted to return to [facility]. Pt verbalizes understanding.
[2024-05-31 16:54] LABS: Glucometer 170 mg/dL (74-106)
[2024-05-31] MEDS: INSULIN ASPART 300 UNIT/3 ML PEN SUBQ ×2 (17:31→21:17)
[2024-05-31 20:46] LABS: Glucometer 197 mg/dL (74-106)
[2024-05-31] MEDS: INSULIN GLARGINE 300 UNIT/3 ML INSULN.PEN 40 UNIT SQ (21:18)
[2024-06-01] MEDS: VANCOMYCIN HCL 1,750 MG in 0.9 % SODIUM CHLORIDE 500 ML 250 MG IV ×2 (04:34→15:49)
[2024-06-01 06:23] LABS: Basophils Percent Auto 0.8 % (0.2-2.0); Eosinophils Absolute Auto 0.2 10^3/uL (0.0-0.7); Eosinophils Percent Auto 4.6 % (0.9-7.0); Hematocrit 30.7 % (42.0-54.0); Hemoglobin 9.7 g/dL (14.0-18.0); Immature Granulocytes Abs Auto 0.14 10^3/uL (0.00-0.03); Immature Granulocytes Pct Auto 2.7 % (0.0-0.5); Lymphocytes Absolute Auto 1.4 10^3/uL (1.2-3.8); Lymphocytes Percent Auto 26.5 % (20.5-60.0); Mean Corpuscular HGB Conc 31.6 g/dL (29.9-35.2); Mean Corpuscular Hemoglobin 29.8 pg (25.9-34.0); Mean Corpuscular Volume 94.5 fL (80.0-94.0); Mean Platelet Volume 9.7 fL (9.5-13.5); Monocytes Absolute Auto 0.6 10^3/uL (0.3-0.8); Monocytes Percent Auto 10.6 % (1.7-12.0); Neutrophils Absolute Auto 2.9 10^3/uL (1.4-6.5); Neutrophils Percent Auto 54.8 % (43.0-75.0); Platelet Count 270 10^3/uL (150-450); Red Blood Count 3.25 10^6/uL (4.70-6.10); Red Cell Distribution Width 13.5 % (11.0-15.0); White Blood Count 5.2 10^3/uL (4.0-11.0)
[2024-06-01 06:34] LABS: Alanine Aminotransferase 24 U/L (16-63); Albumin Globulin Ratio 0.6; Albumin Level 2.5 g/dL (3.4-5.0); Alkaline Phosphatase 98 U/L (46-116); Anion Gap 12.5; Aspartate Amino Transferase 15 U/L (15-37); BUN Creatinine Ratio 8.7; Bilirubin Total 0.3 mg/dL (0.2-1.0); Calcium 8.8 mg/dL (8.5-10.1); Chloride 104 mmol/L (98-107); Estimated GFR (African America >60 (>=60 mL/min/1.73m^2); Estimated GFR (Non-African Ame >60 (>=60 mL/min/1.73m^2); Globulin 4.5 g/dL; Glucose 172 mg/dL (74-106); Potassium 4.5 mmol/L (3.5-5.1); Sodium 140 mmol/L (136-145)
[2024-06-01 07:31] VITALS: BP 128/77; PULSE 73; TEMP 36.7; O2SAT 96
[2024-06-01 07:49] LABS: Glucometer 163 mg/dL (74-106)
[2024-06-01] MEDS: INSULIN ASPART 300 UNIT/3 ML PEN SUBQ ×4 (08:31→20:37)
[2024-06-01] MEDS: ASPIRIN 81 MG TABLET.DR PO (08:34)
[2024-06-01] MEDS: ENOXAPARIN SODIUM 40 MG/0.4 ML SYRINGE SUBQ ×2 (08:35→20:37)
[2024-06-01] MEDS: INSULIN GLARGINE 300 UNIT/3 ML INSULN.PEN 40 UNIT SQ ×2 (08:35→20:36)
[2024-06-01] MEDS: ATORVASTATIN CALCIUM 40 MG TABLET PO (08:35)
[2024-06-01 09:05] VITALS: PULSE 73
--- NOTE | 2024-06-01 10:40 | REH.PTDLY ---
Physical Therapy Daily Note PT Daily Note/Assess Start: 06/01/24 10:33 Freq: Status: Active Protocol: Document 06/01/24 10:33 CT (Rec: 06/01/24 10:40 CT [id number]) Physical Therapy Daily Note/Assessment Time In 10:05 Time Out 10:17 Subjective Pt coming out of bathroom with OT. Pt agreeable to PT. Therapeutic Activity 12 Minutes (minutes) Therapeutic Activity 1 Units Therapeutic Activity Pt is Ind with transfers on and off scooter as well as Comments gait with scooter, no LOB noted while ambulating with good maneuverability. Instructed pt on hopping with RW, pt states he does not do that a lot at rehab when getting around. Pt able to maintain NWB and hop 7x forward and retro. Pt a little hesitant to get too far away from the bed in case he needs to sit down. Reports leg just feels really heavy when doing this causing fatigue. Total Therapy 12 Minutes Total Physical 1 Therapy Units Daily Note Summary Pt needs to be able to hop up 20 steps in order to go back home and this is why he is at rehab to get stronger to be able to do so or until he can put weight onto foot again and walk up steps pt states. Pt would not be able to hop up 20 steps at this time due to fatigue with just hopping 7x forward and backwards using a RW. Pt will need to return to rehab at [place] to become stronger with stair training to complete 20 stairs.
--- NOTE | 2024-06-01 10:44 | CM.NOTE ---
Rounds made with Dr. Guerrier pt will discharge to [facility] when medically stable.
--- NOTE | 2024-06-01 10:45 | CM.NOTE ---
Pt will remain in OBS bed at this time.
[2024-06-01 11:00] VITALS: BP 118/77; PULSE 77; TEMP 36.6; O2SAT 93
[2024-06-01 11:20] LABS: Glucometer 152 mg/dL (74-106)
--- NOTE | 2024-06-01 11:20 | P.IMPN_ITS ---
Progress Note: A&P Assessment and Plan (1) Postoperative wound infection: Assessment and Plan: due to MRSA. On IV vancomycin. (2) Diabetic foot infection: Assessment and Plan: due to MRSA. on IV vancomycin (3) MRSA (methicillin resistant Staphylococcus aureus) infection: Assessment and Plan: Wound cx growing MRSA. On Vancomycin (4) Hypertension: Assessment and Plan: Stable. C/w home medications. Qualifiers: Hypertension type: primary hypertension Qualified Code(s): I10 - Essential (primary) hypertension (5) Type 2 diabetes mellitus: Assessment and Plan: C/w home medications. 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 Qualifiers: Hyperlipidemia type: unspecified Qualified Code(s): E78.5 - Hyperlipidemia, unspecified Plan Stable for discharge but needs rehab placement. Awaiting precert. Internal Medicine - PN: Subj Subjective Interval history: Seen and examined. No active complaints. No overnight events. Exam Constitutional Vital Signs, click to edit/add: Last Vital Signs Temp 98 F 06/01/24 11:00 Pulse 77 06/01/24 11:00 Resp 16 06/01/24 11:00 BP 118/77 06/01/24 11:00 Pulse Ox 93 L 06/01/24 11:00 O2 Del Method Room Air 06/01/24 11:00 Documenting provider has reviewed patient's vital signs: yes Common normals: no apparent distress and oriented x3 General appearance: cooperative Respiratory Common normals: normal respiratory effort and clear to auscultation bilaterally Effort & inspection: able to speak in complete sentences Auscultation: clear to auscultation bilaterally Cardio Common normals: regular rate, S1 normal heart sound and S2 normal heart sound Rate: regular rate Heart sounds: S1 normal and S2 normal Extremity Other: Dressing in place in Right foot. Patient requested to not remove the dressing as it new one was placed today in Podiatry office. Internal Medicine - PN: Obj Da Labs Labs: Laboratory Results - last 24 hr 05/30/24 05/31/24 05/31/24 12:17 16:53 20:45 WBC RBC Hgb Hct MCV MCH MCHC RDW Plt Count MPV Neut % (Auto) Lymph % (Auto) [place] % (Auto) Eos % (Auto) Baso % (Auto) Neut # (Auto) Lymph # (Auto) [place] # (Auto) Eos # (Auto) Baso # (Auto) Abs Immat Gran (auto) Imm/Tot Granulo (auto) Sodium Potassium Chloride Carbon Dioxide Anion Gap BUN Creatinine Est GFR ( Amer) Est GFR (Non-Af Amer) BUN/Creatinine Ratio Glucose Calcium Total Bilirubin AST ALT Alkaline Phosphatase Total Protein Albumin Globulin Albumin/Globulin Ratio mecA/C & MREJ Resist Gene Not applicable mcr-1 Colist[place] Res Gene PCR Not applicable Megha/B-Vanco Res Genes Not applicable blaIMP Car res Gene PCR Not applicable KPC (blaKPC) Detect PCR Not applicable NDM (blaNDM) Detect PCR Not applicable OXA-48 Carbapenem Resis Gene (PCR) Not applicable blaVIM Car Res Gene PCR Not applicable CTX-M ESBL (PCR) Not applicable POC Glucose 170 H 197 H 06/01/24 06/01/24 05:56 07:48 WBC 5.2 RBC 3.25 L Hgb 9.7 L Hct 30.7 L MCV 94.5 H MCH 29.8 MCHC 31.6 RDW 13.5 Plt Count 270 MPV 9.7 Neut % (Auto) 54.8 Lymph % (Auto) 26.5 [place] % (Auto) 10.6 Eos % (Auto) 4.6 Baso % (Auto) 0.8 Neut # (Auto) 2.9 Lymph # (Auto) 1.4 [place] # (Auto) 0.6 Eos # (Auto) 0.2 Baso # (Auto) 0.0 Abs Immat Gran (auto) 0.14 H Imm/Tot Granulo (auto) 2.7 H Sodium 140 Potassium 4.5 Chloride 104 Carbon Dioxide 28.0 Anion Gap 12.5 BUN 9.0 Creatinine 1.04 Est GFR ( Amer) >60 Est GFR (Non-Af Amer) >60 BUN/Creatinine Ratio 8.7 Glucose 172 H Calcium 8.8 Total Bilirubin 0.3 AST 15 ALT 24 Alkaline Phosphatase 98 Total Protein 7.0 Albumin 2.5 L Globulin 4.5 Albumin/Globulin Ratio 0.6 mecA/C & MREJ Resist Gene mcr-1 [place] Res Gene PCR Megha/B-Vanco Res Genes blaIMP Car res Gene PCR KPC (blaKPC) Detect PCR NDM (blaNDM) Detect PCR OXA-48 Carbapenem Resis Gene (PCR) blaVIM Car Res Gene PCR CTX-M ESBL (PCR) POC Glucose 163 H
[2024-06-01 11:21] VITALS: O2SAT 94
--- NOTE | 2024-06-01 11:37 | SWNOTE1 ---
SW sent updated PT/OT note, labs, med list, and vitals to [facility].
[2024-06-01 15:26] VITALS: BP 148/80; PULSE 72; TEMP 36.7; O2SAT 95
--- NOTE | 2024-06-01 16:00 | SWNOTE1 ---
SW sent updates for precert and called and left message for Araceli at [facility], waiting to hear back.
[2024-06-01 17:48] LABS: Glucometer 141 mg/dL (74-106)
[2024-06-01 19:53] VITALS: BP 108/71; PULSE 76; TEMP 36.8; O2SAT 93
[2024-06-01 19:58] LABS: Glucometer 189 mg/dL (74-106)
[2024-06-01] MEDS: METFORMIN HCL 500 MG TABLET 1000 MG PO (20:35)
[2024-06-01] MEDS: OXYCODONE HCL 5 MG TABLET PO (20:36)
[2024-06-02] MEDS: VANCOMYCIN HCL 1,750 MG in 0.9 % SODIUM CHLORIDE 500 ML 250 MG IV (03:09)
[2024-06-02 03:14] VITALS: BP 118/62; PULSE 61; TEMP 36.5; O2SAT 97
[2024-06-02 07:21] VITALS: BP 117/74; PULSE 67; TEMP 36.9; O2SAT 96
[2024-06-02 07:50] LABS: Glucometer 120 mg/dL (74-106)
[2024-06-02] MEDS: ATORVASTATIN CALCIUM 40 MG TABLET PO (08:35)
[2024-06-02] MEDS: METFORMIN HCL 500 MG TABLET 1000 MG PO (08:35)
[2024-06-02] MEDS: ASPIRIN 81 MG TABLET.DR PO (08:35)
[2024-06-02] MEDS: ENOXAPARIN SODIUM 40 MG/0.4 ML SYRINGE SUBQ (08:35)
[2024-06-02] MEDS: INSULIN GLARGINE 300 UNIT/3 ML INSULN.PEN 40 UNIT SQ (08:37)
--- NOTE | 2024-06-02 08:44 | SWNOTE1 ---
[facility]. SW let nurse and doctor know.
--- NOTE | 2024-06-02 10:30 | CM.NOTE ---
Rounds made with Dr. Guerrier. Dr. Guerrier reviews lab findings and discharge today. Mr. Ontiveros verbalizes understanding.
[2024-06-02 11:14] VITALS: O2SAT 93
[2024-06-02 11:20] VITALS: BP 138/71; PULSE 87; TEMP 36.7; O2SAT 94
[2024-06-02 11:28] LABS: Glucometer 159 mg/dL (74-106)
--- NOTE | 2024-06-02 11:36 | P.DS_ITS ---
DS: Providers Provider Date of admission: 05/30/24 13:51 Primary care physician: ERIC HERNANDEZ Admitting clinician: Shaikh Fareed Attending physician on admission: Shaikh Fareed Consults: 05/30/24 14:26 Occupational Therapy Eval and Treat Routine Reason for consultation: Ambulatory dysfunction/weakness Physical Therapy Eval and Treat Routine Reason for consultation: Ambulatory dysfunction/weakness 05/30/24 14:28 Consult to Podiatry Routine Consulting Provider: Jesus Feldman Reason for consultation: Diabetic foot infection Attending physician on discharge: Shaikh Fareed Discharging clinician: Shaikh Fareed Anticipated date of discharge: 06/02/24 DS: Diagnosis Discharge Diagnosis (1) Postoperative wound infection: (2) Diabetic foot infection: (3) MRSA (methicillin resistant Staphylococcus aureus) infection: (4) Hypertension: Qualifiers: Hypertension type: primary hypertension Qualified Code(s): I10 - Essential (primary) hypertension (5) Type 2 diabetes mellitus: Qualifiers: Diabetes mellitus correction insulin use: with traffic director use Diabetes mellitus complication status: with neurologic complications Diabetes mellitus complication detail: with polyneuropathy Qualified Code(s): E11.42 - Type 2 diabetes mellitus with diabetic polyneuropathy; Z79.4 - assisted (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 (6) HLD (hyperlipidemia): Qualifiers: Hyperlipidemia type: unspecified Qualified Code(s): E78.5 - Hy perlipidemia, unspecified DS: Summary Hospital Course Hospital Course: 43y o male who had I&D of left foot for diabetic foot infection/abscess was doing well and following up as outpatient [facility]. While changing his Wound Vac, Nurse noted purulent discharge from his left foot and patient was sent to ED for evaluation. He was subsequently sent to ED when on follow up, he was noted to more drainage and associated cellulitis for IV abx. He was started on IV vancomycin/Zosyn. He underwent I&D in OR with no sig pus noted. His wound cultures are growing MRSA/group B strep. He is also growing Prevotella in wound culture. He will need PO Zyvox and PO flagyl for 14 days. He has an appt with Podiatry next Wednesday. He is medically stable for discharge and was waiting for precet for rehab which went through today. Status at Discharge Overall status at discharge: patient is back to baseline Time Spent with Patient Time attestation: Total time spent providing and/or coordinating discharge services: Time spent: greater than 30 minutes Exam Constitutional Vital Signs, click to edit/add: Last Vital Signs Temp 98.1 F 06/02/24 11:20 Pulse 87 06/02/24 11:20 Resp 16 06/02/24 11:20 BP 138/71 06/02/24 11:20 Pulse Ox 94 L 06/02/24 11:20 O2 Del Method Room Air 06/02/24 11:20 Documenting provider has reviewed patient's vital signs: yes Common normals: no apparent distress and oriented x3 General appearance: cooperative Respiratory Common normals: normal respiratory effort and clear to auscultation bilaterally Effort & inspection: able to speak in complete sentences Auscultation: clear to auscultation bilaterally Cardio Common normals: regular rate, S1 normal heart sound and S2 normal heart sound Rate: regular rate Heart sounds: S1 normal and S2 normal Extremity Other: Dressing in place in Right foot. Patient requested to not remove the dressing as it new one was placed today in Podiatry office. DS: Data Data Completed and Pending Labs on day of discharge: Labs from last 24 hours 06/02/24 06/02/24 06/01/24 11:25 07:45 19:57 POC Glucose 159 H 120 H 189 H 06/01/24 17:39 POC Glucose 141 H Preliminary micro results at discharge 05/31/24 09:35 Mycology Culture - Preliminary Ankle Right 05/30/24 12:17 Bacterial ID and Susceptibility - Preliminary Bld Spc Aerobic Bld Cul Bottle 05/30/24 12:28 Blood Culture Result 2 - Preliminary Blood - Left Antecubital NO GROWTH AT 36-48 HOURS. FINAL TO FOLLOW. 05/30/24 12:17 Blood Culture Result 1 - Preliminary Blood - Right Forearm 05/31/24 09:35 Acid Fast Bacilli Culture - Preliminary Foot Right Discharge Plan Discharge Disposition: Xfer SNF Discharge Medications: New linezolid [Zyvox] 600 mg tablet 600 mg PO BID 14 Days Qty: 28 0RF metronidazole 500 mg tablet 500 mg PO Q8H 14 Days Qty: 42 0RF Continued aspirin [Adult Aspirin Regimen] 81 mg tablet,delayed release (DR/EC) 81 mg PO QDAY atorvastatin 40 mg tablet 40 mg PO QDAY insulin lispro 100 unit/mL solution 1 sliding scale dose subcut USEASDIRECTD metformin 500 mg tablet 1,000 mg PO BID lisinopril 30 mg tablet 30 mg PO .QD liraglutide 0.6 mg/0.1 mL (18 mg/3 mL) pen injector 1.8 mg SUBCUT Q24H insulin glargine-yfgn 100 unit/mL solution 44 unit SUBCUT BID Discontinued dapagliflozin propanediol 10 mg tablet 10 mg PO .QD Print Language: Cypriot Forms: Portal Instructions Follow Up Appointments: @ 1pm with Dr. Feldman [phone] F/u with PCP in 1-2 weeks
[2024-06-02] MEDS: INSULIN ASPART 300 UNIT/3 ML PEN SUBQ (12:01)
--- NOTE | 2024-06-02 12:37 | SWNOTE1 ---
[facility] called and set up trips transportation for 1:00. [facility] sent dc med rec, CRF, and dc summary to [facility] at [facility]. [facility] took packet to the floor. [facility] let nurse, patient, and [facility] know time of discharge. Pt is returning to [facility] [employer]. [facility] at [facility] did sent [facility] a message that Dr. Feldman is communicating with them in regards to a wound vac. At this time nothing further is needed at discharge for patient.
--- NOTE | 2024-06-02 12:57 | OT.DAILY ---
Occupational Therapy Daily Note OT Inpatient Daily Visit Note Start: 05/31/24 11:39 Freq: Status: Active Protocol: Document 06/02/24 12:48 [id number] (Rec: 06/02/24 12:57 [id number]) OT Visit Details Time In/Time Out Time In 12:40 Time Out 12:48 OT Treatment Plan Subjective Subjective Pt tolerated treatment well. Pt ready for d/c this afternoon, return to SNF. Denies pain or additional concerns at this time. Objective Objective Pt agreeable and cooperative, eager to return to SNF to continue therapy. Pt demonstrates good simulation using walker to hop as functional mobility. When Pt is d/c from SNF, educated that [facility] require additional strength and endurance to hop up his stairs at home, unable to use LE scooter. Pt is eagerly waiting for walking boot to increase WB status. Assessment Assessment Pt tolerated treatment well. Understands all education at this time and verbalizes understanding. Demonstrates appropriate use of all AE. OT Hide Measuring 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 Timed Codes Therapeutic activity 8 minutes (minutes) Therapeutic activity 1 units
--- NOTE | 2024-06-02 12:58 | PT.DAILY ---
Physical Therapy Daily Note PT Daily Note/Assess Start: 06/01/24 10:33 Freq: Status: Active Protocol: Document 06/02/24 12:53 ESTEE (Rec: 06/02/24 12:58 ESTEE [id number]) Physical Therapy Daily Note/Assessment Time In/Time Out Time In 12:40 Time Out 12:48 Pain In Pain N/A Pain Out Pain N/A Subjective Subjective Pt sitting EOB upon arrival. Dressed and ready to go - ride is coming at 1:00 to transport him to [facility]. Co-treat with OT. No charge visit for PT. Therapeutic Activity Time Therapeutic Activity 3 Minutes (minutes) Therapeutic Activity 0 Units Therapeutic Activity Treatment Chair Transfer Modified Independent Ability Therapeutic Activity Sit>stand to RW. Pt hops 10' to door and back to sit at Comments EOB.. Ride will be here shortly - declines further activity/needs at this time. Total Physical Therapy Time Total Therapy 3 Minutes Total Physical 0 Therapy Units Summary Daily Note Summary Melody with transfers. Steady with hoping and able to maintain NWB R LE without difficulty.
--- NOTE | 2024-06-05 13:26 | CM.NOTE ---
Lauri at [facility] were notified and emailed final aerobic culture with susceptibility chart.
== END 2024-06-02 13:20 ==
LOC: ER 13:06 → MS 05-31 06:09
PROVIDERS: Podiatrist Foot & Ankle Surgery; Admitting Provider Internal Medicine; Emergency Provider Emergency Medicine; PCP Family Medicine; Visit Provider Internal Medicine
PROC: (CPT 1470; principal; 2024-05-31 08:30)
DX: T81.49XA Infection following a procedure, other surgical site, initial encounter (principal); E11.621 Type 2 diabetes mellitus with foot ulcer; Z79.4 Long term (current) use of insulin; Z87.891 Personal history of nicotine dependence; I10 Essential (primary) hypertension; E11.42 Type 2 diabetes mellitus with diabetic polyneuropathy; E78.5 Hyperlipidemia, unspecified; L02.611 Cutaneous abscess of right foot; B95.62 Methicillin resistant Staphylococcus aureus infection as the cause of diseases classified elsewhere; E66.01 Morbid (severe) obesity due to excess calories; Z68.43 Body mass index [BMI] 50.0-59.9, adult; Z79.84 Long term (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 oral hypoglycemic drugs; L97.519 Non-pressure chronic ulcer of other part of right foot with unspecified severity; B96.83 Acinetobacter baumannii as the cause of diseases classified elsewhere
CPT/HCPCS: 11043; 36415; 80053; 82948; 83605; 85025; 85652; 86140; 87040; 87070; 87075; 87102; 87116; 87150; 87176; 87186; 87205; 87206; 93005; 94761; 96361; 96365; 96366; 96367; 96368; 96372; 97161; 97165; 97530; 97535; 99285; 99999; G0378; J1650; J2250; J2405; J2543; J2704; J3010; J3370

== ENCOUNTER 2024-05-30 16:11 | Outpatient (OUT) | payer OTHER, SELFPAY | END 2024-05-30 16:12 | disposition home or self-care (01) | LOC: WC 16:12 | PROVIDERS: PCP Family Medicine; Visit Provider Physician Assistant | DX: E11.621 Type 2 diabetes mellitus with foot ulcer (principal); L97.412 Non-pressure chronic ulcer of right heel and midfoot with fat layer exposed; E11.622 Type 2 diabetes mellitus with other skin ulcer; L97.312 Non-pressure chronic ulcer of right ankle with fat layer exposed | CPT/HCPCS: G0463 ==

== ENCOUNTER 2024-06-06 15:33 | Outpatient (OUT) | payer OTHER, SELFPAY ==
--- OUTSIDE RECORDS SUMMARY | 2024-06-06 15:56 | XMS_ITS | CCD ---
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 Name Role Phone Link Ortega [...] Unavailable HIGHLANDER, NATANAEL Marks Attending Unavailable HIGHLANDER, NATAANEL Marks Admitting Unavailable WONDERLY, DR NATALIE Lozada [...] Unavailable HIGHLANDER, NATANAEL Marks Attending Unavailable HIGHLANDER, NATANALE Marks Admitting Unavailable WEST, DR FRANCO Adamson [...] Care Provider MD Damon Claros Attending Provider [phone] MD Shelby [facility] Provider [phone] Natalie Hernandez MD Primary Care Provider Glo JAVA MOBILE DEVELOPER, Blossom Kong Unavailable [phone] BLOSSOM CODY Attending Unavailable GLO, BLOSSOM Kong Attending Unavailable RUSHER, MIRLANDE Zhang Attending Unavailable RUSHER, MIRLANDE Zhang Attending Unavailable GLO, BLOSSOM Kong Attending Unavailable RUSHER, MIRLANDE S Attending Unavailable RUSHER, MIRLANDE S Attending Unavailable GLO, BLOSSOM A Attending Unavailable GLO, BLOSSOM Kong Attending Unavailable Wonderly, [facility] Care Unavailable Jeimyander, Natanael Marks Admitting Unavailable Highlander, Natanael Marks Attending Unavailable Shelby, [facility] Care Unavailable Damon Claros Admitting Unavailable [...] 02/28/2024 Active dapagliflozin 10 mg oral tablet (12 sources) Sodium-Glucose Cotransporter 2 Inhibitor Start: 10-19-2023 dapagliflozin (Farxiga) 10 MG 01/17/2024 Active ertugliflozin 15 mg oral tablet (12 sources) take 1 tablet by mouth in the morning Steglatro Take 1 tablet by mouth in the morning. 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, sequela] Onset: 11-03-2023 11-03-2023 Chronic Open wounds of extremities (5 sources) Unspecified open wound, unspecified foot, initial encounter; Translations: [Injury of left foot] Episodic Osteoarthritis (17 sources) Arthritis of left foot; Translations: [Primary osteoarthritis, left ankle and foot] Onset: 10-02-2022 10-02-2022 Chronic Other aftercare (11 sources) Long-term current use of insulin; Translations: [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] 06-17-2023 Episodic Other aftercare (4 sources) [facility] (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 Onset: 01-06-2022 Resolved: [...] Chronic Other nutritional; endocrine; and metabolic disorders (19 sources) Lipoprotein deficiency disorder; Translations: [Lipoprotein deficiency] Onset: 10-02-2022 10-02-2022 Chronic Other nutritional; endocrine; and metabolic disorders (19 sources) Morbid obesity; Translations: [Morbid (severe) obesity [...] Resolved: 01-06-2022 Episodic Other infections; including parasitic (15 sources) Personal history of other infectious and parasitic diseases; Translations: [History of COVID-19] Onset: 05-13-2020 Resolved: 06-17-2023 10-02-2022 Episodic Other non-traumatic joint disorders (1 source) Pain in left ankle and joints of left foot; Translations: [PAIN IN LEFT ANKLE] Onset: 06-24-2022 Episodic Other nutritional; endocrine; and metabolic disorders (17 sources) H/O: Disorder; Translations: [Personal history of other endocrine, nutritional and metabolic disease] Onset: 04-13-2018 Resolved: 06-17-2023 03-22-2023 Episodic Other skin disorders (5 sources) Corns and callosities; Translations: [CORNS AND CALLOSITIES] Onset: 12-15-2021 Episodic Superficial injury; contusion (4 sources) Blister (nonthermal), right foot, initial encounter; Translations: [BLISTER NONTHERMAL RT FOOT INITIAL] Onset: 12-29-2021 Episodic Results Test Name Value Interpretation Reference Range Facility [facility] 04-26-2024 L Specimen: [id number] Received: 04/26/24 Status: CALEB Gabriel Num: [id number] Spec Type: Surgical Subm Dr: Natanael Feldman DPM, Tissues: A Skin-Other than Cyst, tag, debridement or plastic repair (RT FOOT ULCER) Procedures: Yenny SCOTT/Mary Robles Age/ Patient Sex Location Account Attending Physician Trev Ontiveros 43/M LABELL [id number] Natanael Feldman DPM, SPEC NUM: [id number] RECD: 04/26/24 STATUS: CALEB GABRIEL NUM: [id number] MARTHA: 04/26/[address]: Natanael Feldman DPM, MS ENTERED: 04/26/[address] [facility] DR: Farzana Rene SPEC TYPE: Surgical DEPT: DERRICK PLUNKETT ENTERED BY: [id number] RECV BY: [id number] ORDERED: HE, Gross/Micro L4 ORDERED: HE, Gross/Micro [...] reveal purple-brown to green, softened cut surfaces. Structural Layout Worker sections are submitted in a single cassette. (1, ss, [id number]) CPT Codes 04168 Specimen: [id number] Received: 04/26/24 Status: CALEB Nery Num: [id number] Spec Type: Surgical Subm Dr: Natanael Feldman DPM, MS Tissues: A Skin-Other than Cyst, tag, debridement or plastic repair (RT FOOT ULCER) Procedures: HE, Gross/Micro L4 Patient: Trev Ontiveros [id number] (Continued) Signed (signature on file) Melanie Roca MD 04/27/24 1349 Normal [facility] A1C HEMOGLOBINon 06-09-2023 HbA1c (Bld) [Mass fraction] 8.2 % [employer] Other Glucose - FINGER STICKon Glucose [Mass/Vol] 170 mg/dL [employer] Other HbA1c (Bld) [Mass fraction]o n 06-09-2023 A1C HEMOGLOBIN [employer] Other A1C HEMOGLOBINon 01-04-2023 HbA1c (Bld) [Mass fraction] 8.9 % [employer] Other Glucose - FINGER STICKon Glucose [Mass/Vol] 201 mg/dL [employer] Other HbA1c (Bld) [Mass fraction]o n 01-04-2023 A1C HEMOGLOBIN [employer] Other PROF CHEM 8 (BAS METB)on Anion gap [Moles/Vol] 14.3 mmol/L Normal [facility] Comment on above: Performed By: #### B MP #### [facility] [address] [address] [address] Lauri Todd Calcium [Mass/Vol] 9.4 mg/dL Normal 8.5-10.1 [facility] Comment on above: Performed By: #### B MP #### [facility] [address] [address] [address] Lauri Todd Chloride [Moles/Vol] 101 mmol/L Normal 98-107 [facility] Comment on above: Performed By: #### B MP #### [facility] [address] [address] [address] Lauri Todd CO2 [Moles/Vol] 26.2 mmol/L Normal 21.0-32.0 [facility] Comment on above: Performed By: #### B MP #### [facility] [address] [place] [address] Dr. Lauri Todd Creatinine [Mass/Vol] 0.90 mg/dL Normal 0.70-1.30 [facility] Comment on above: Performed By: #### B MP #### [facility] [address] [address] [address] Lauri Todd EGFR-AF CHADIAN >60 Normal >=60 [facility] Comment on above: Performed By: #### B MP #### [facility] [address] [place] [address] Dr. Lauri Todd EGFR-NON AF CHADIAN >60 Normal >=60 [facility] Comment on above: Performed By: #### B MP #### [facility] [address] [address] [address] Lauri Todd Glucose [Mass/Vol] 146 mg/dL Critically high 74-106 [facility] Comment on above: Performed By: #### B MP #### [facility] [address] [place] [address] Dr. Lauri Todd Potassium [Moles/Vol] 4.5 mmol/L Normal 3.5-5.1 [facility] Comment on above: Performed By: #### B MP #### [facility] [address] [place] [address] Dr. Lauri Todd Sodium [Moles/Vol] 137 mmol/L Normal 136-145 [facility] Comment on above: Performed By: #### B MP #### [facility] [address] [place], [place] [address] Dr. Lauri Todd Urea nitrogen [Mass/Vol] 16.0 mg/dL Normal 7.0-18.0 [facility] Comment on above: Performed By: #### B MP #### [facility] [address] [place], [place] [address] Dr. Lauri Todd Urea nitrogen/Creatinin e [Mass ratio] 17.8 mg/mg Normal [facility] Comment on above: Performed By: #### B MP #### [facility] [address] [address] [address] Lauri Todd A1C HEMOGLOBINon 06-25-2022 HbA1c (Bld) [Mass fraction] 8.2 % [employer] Other Glucose - FINGER STICKon Glucose [Mass/Vol] 180 mg/dL [employer] Other HbA1c (Bld) [Mass fraction]o n 06-25-2022 [facility]C [facility]GLOBIN [facility] Other XR FOOT LT MIN 3 VIEWSon [...] WHITAKER Date: 2022-05-25 11:52 Normal [facility] A1C HEMOGLOBINon 01-06-2022 HbA1c (Bld) [Mass fraction] 7 % [facility] [employer] Other Glucose - FINGER STICKon Glucose [Mass/Vol] 148 mg/dL [facility] [employer] Other HbA1c (Bld) [Mass fraction]o n 01-06-2022 A1C HEMOGLOBIN [facility] [employer] Other Basic Metabolic Panelon - Anion gap [Moles/Vol] 20 mmol/L Normal 12-20 [facility] Comment on above: Result Comment: Effe ctive 05/15/2019 reference range changed. Performed By: #### B MP #### [facility] [address], [place] [id number] Calcium [Mass/Vol] 10.0 mg/dL Normal 8.6-10.2 [facility] Comment on above: Performed By: #### B MP #### [facility] [address], [place] [id number] Chloride [Moles/Vol] 100 mmol/L Normal 98-107 [facility] Comment on above: Performed By: #### B MP #### [facility] [address], [place] [id number] CO2 [Moles/Vol] 22 mmol/L Normal 20-31 [facility] Comment on above: Performed By: #### B MP #### [facility] [address], [place] [id number] Creatinine [Mass/Vol] 0.8 mg/dL Normal 0.7-1.4 [facility] Comment on above: Performed By: #### B MP #### [facility] [address], [place] [id number] eGFRAA 129 mL/min/1.73m2 Normal >60 [facility] Comment on above: Performed By: #### B MP #### [facility] [address], [place] [id number] eGFRNAA 107 mL/min/1.73m2 Normal >60 [facility] Comment on above: Performed By: #### B MP #### [facility] [address] [place] [id number] Glucose [Mass/Vol] 140 mg/dL High 65-99 [employer] Comment on above: Result Comment: For FASTING Glucose --- ADA reference ranges: Normal 65-99 mg/dl Prediabetes 100-125 Diabetes >/= 126 Performed By: #### B MP #### [facility] [address] [facility] [place] [id number] Potassium [Moles/Vol] 4.3 mmol/L Normal 3.5-5.5 [facility] Specialist Comment on above: Performed By: #### B MP #### [facility] [address] [facility] [place] [id number] Sodium [Moles/Vol] 137 mmol/L Normal 135-146 [facility] [employer] Comment on above: Performed By: #### B MP #### [facility] [address], [place] [id number] Urea nitrogen [Mass/Vol] 17 mg/dL Normal 7-25 [facility] [employer] Comment on above: Performed By: #### B MP #### [facility] [address], [place] [id number] Vital Signs Date Time Vital Sign Value Performing Clinician Facility 04-19-2024 09:47-0500 Body mass index (BMI) [Ratio] 52.21 kg/m2 Blossom Cody JAVA MOBILE DEVELOPER Work Phone: [facility] 04-19-2024 09:47-0500 Body weight 172.19 kg Blossom Cody JAVA MOBILE DEVELOPER Work Phone: [facility] 04-19-2024 09:47-0500 Diastolic blood pressure 72 mm[Hg] Blossom Cody JAVA MOBILE DEVELOPER Work Phone: [facility] 04-19-2024 09:47-0500 Heart rate 84 /min Blossom Cody JAVA MOBILE DEVELOPER Work Phone: [facility] 04-19-2024 09:47-0500 Systolic blood pressure 128 mm[Hg] Blossom Cody JAVA MOBILE DEVELOPER Work Phone: [facility] 01-26-2024 09:59-0400 Body height 182.88 cm [facility] 01-26-2024 09:59-0400 Body mass index (BMI) [Ratio] 51.2 kg/m2 [facility] 01-26-2024 09:59-0400 Body weight 171.54 kg [facility] 01-26-2024 09:59-0400 Diastolic blood pressure 83 mm[Hg] [facility] 01-26-2024 09:59-0400 Heart rate 81 /min [facility] 01-26-2024 09:59-0400 Respiratory rate 18 /min [facility] 01-26-2024 09:59-0400 SaO2% (BldA) [Mass fraction] 94 % [facility] 01-26-2024 09:59-0400 Systolic blood pressure 155 mm[Hg] [facility] 01-19-2024 11:00-0400 Body mass index (BMI) [Ratio] 51.82 kg/m2 Blossom Cody JAVA MOBILE DEVELOPER Work Phone: [facility] 01-19-2024 11:00-0400 Body weight 170.91 kg Blossom Lozoyael JAVA MOBILE DEVELOPER Work Phone: [facility] 01-19-2024 11:00-0400 Diastolic blood pressure 78 mm[Hg] Blossom Lozoyael JAVA MOBILE DEVELOPER Work Phone: [facility] 01-19-2024 11:00-0400 Heart rate 84 /min Blossomdidier Lozoyael JAVA MOBILE DEVELOPER Work Phone: [facility] 01-19-2024 11:00-0400 Systolic blood pressure 136 mm[Hg] Blossom Lozoyael JAVA MOBILE DEVELOPER Work Phone: [facility] 10-19-2023 11:31-0400 Body height 182.88 cm [facility] 10-19-2023 11:31-0400 Body mass index (BMI) [Ratio] 51.7 kg/m2 [facility] 10-19-2023 11:31-0400 Body weight 172.87 kg [facility] 10-19-2023 11:31-0400 Diastolic blood pressure 83 mm[Hg] [facility] 10-19-2023 11:31-0400 Heart rate 74 /min [facility] 10-19-2023 11:31-0400 Respiratory rate 18 /min [facility] 10-19-2023 11:31-0400 SaO2% (BldA) [Mass fraction] 97 % [facility] 10-19-2023 11:31-0400 Systolic blood pressure 149 mm[Hg] [facility] 06-16-2023 11:33-0500 Diastolic blood pressure 84 mm[Hg] Blossomdidier Lozoyael JAVA MOBILE DEVELOPER Work Phone: [facility] 06-16-2023 11:33-0500 Systolic blood pressure 154 mm[Hg] Blossom Lozoyael JAVA MOBILE DEVELOPER Work Phone: [facility] 06-16-2023 11:02-0500 Body mass index (BMI) [Ratio] 52.12 kg/m2 Blossomdidier Lozoyael JAVA MOBILE DEVELOPER Work Phone: [facility] 06-16-2023 11:02-0500 Body weight 171.91 kg Blossomdidier Lozoyael JAVA MOBILE DEVELOPER Work Phone: [facility] 06-16-2023 11:02-0500 Heart rate 92 /min Blossom Lozoyael JAVA MOBILE DEVELOPER Work Phone: [facility] 06-09-2023 08:45-0500 Body height Tondra Mapus Other [employer] [facility] [employer] Other 06-09-2023 08:45-0500 Body height 182.88 cm MD Natalie Hernandez Work Phone: [facility] 06-09-2023 08:45-0500 Body mass index (BMI) [Ratio] 51.33 kg/m2 Tondra Mapus Other [facility] [employer] Other 06-09-2023 08:45-0500 Body weight 171.69 kg Tondra Mapus Other [employer] Other 06-09-2023 08:45-0500 Body weight 171.68 kg MD Natalie Hernandez Work Phone: [facility] 06-09-2023 08:45-0500 Diastolic blood pressure 80 mm[Hg] Tondra Mapus Other [facility] 06-09-2023 08:45-0500 Respiratory rate 18 /min Tondra Mapus Other [employer] Other 06-09-2023 08:45-0500 SaO2% (BldA) [Mass fraction] 94 % Tondra Mapus Other [employer] Other 06-09-2023 08:45-0500 Systolic blood pressure 148 mm[Hg] Tondra Mapus Other [facility] 01-04-2023 08:45-0400 Body height Tondra Mapus Other [employer] Other 01-04-2023 08:45-0400 Body mass index (BMI) [Ratio] 51.37 kg/m2 Tondra Mapus Other [employer] Other 01-04-2023 08:45-0400 Body weight 171.82 kg Tondra Mapus Other [employer] Other 01-04-2023 08:45-0400 Diastolic blood pressure 85 mm[Hg] Tondra Mapus Other [employer] Other 01-04-2023 08:45-0400 Respiratory rate 18 /min Tondra Mapus Other [employer] Other 01-04-2023 08:45-0400 SaO2% (BldA) [Mass fraction] 98 % Tondra Mapus Other [employer] Other 01-04-2023 08:45-0400 Systolic blood pressure 150 mm[Hg] Tondra Mapus Other [employer] Other 06-25-2022 09:45-0500 Body height Tondra Mapus Other [employer] Other 06-25-2022 09:45-0500 Body mass index (BMI) [Ratio] 51.14 kg/m2 Tondra Mapus Other [employer] Other 06-25-2022 09:45-0500 Body weight 171.05 kg Tondra Mapus Other [employer] Other 06-25-2022 09:45-0500 Diastolic blood pressure 80 mm[Hg] Tondra Mapus Other [employer] Other 06-25-2022 09:45-0500 Respiratory rate 18 /min Tondra Mapus Other [employer] Other 06-25-2022 09:45-0500 SaO2% (BldA) [Mass fraction] 95 % Tondra Mapus Other [employer] Other 06-25-2022 09:45-0500 Systolic blood pressure 139 mm[Hg] Tondra Mapus Other [employer] Other 01-06-2022 09:45-0400 Body height Tondra Mapus Other [employer] Other 01-06-2022 09:45-0400 Body mass index (BMI) [Ratio] 48.28 kg/m2 Tondra Mapus Other [employer] Other 01-06-2022 09:45-0400 Body weight 161.48 kg Tondra Mapus Other [employer] Other 01-06-2022 09:45-0400 Diastolic blood pressure 71 mm[Hg] Tondra Mapus Other [employer] Other 01-06-2022 09:45-0400 Respiratory rate 20 /min Tondra Mapus Other [employer] Other 01-06-2022 09:45-0400 SaO2% (BldA) [Mass fraction] 95 % Tondra Mapus Other [employer] Other 01-06-2022 09:45-0400 Systolic blood pressure 124 mm[Hg] Tondra Mapus Other [employer] Other Encounters Encounter Date Encounter Type Care Provider Facility Start: 05-30-2024 End: 06-01-2024 [facility] Result Encounter Generic External Data Provider [facility] External Department Unsolicited Start: 05-30-2024 End: 06-01-2024 [facility] Result Encounter Generic External Data Provider [...] External Department Unsolicited Start: 04-26-2024 End: 04-26-2024 ambulatory Natalie Hernandez Facility:[facility] Start: 04-25-2024 End: 04-27-2024 [facility] Result Encounter Generic External Data Provider [facility] External Department Unsolicited Start: 04-25-2024 End: 04-27-2024 [facility] Result Encounter Generic External Data Provider [facility] External Department Unsolicited Start: 04-19-2024 End: 04-19-2024 Bamboo flowsheet Blossom Cody JAVA MOBILE DEVELOPER Work Phone: [facility] Start: 04-19-2024 End: 04-19-2024 Bamboo flowsheet Blossom Cody JAVA MOBILE DEVELOPER Work Phone: [facility] Start: 04-19-2024 End: 04-19-2024 Patient encounter status Blossom Cody JAVA MOBILE DEVELOPER Work Phone: [facility] Start: 04-19-2024 End: 04-19-2024 Periodic preventive med est patient 40-64yrs Blossom Cody JAVA MOBILE DEVELOPER Work Phone: [facility] Comment on above: Diabetic polyneuropa thy associated with type 2 diabetes mellitus ([facility]/HCC) (Primary Dx); Wellness examination; Type 2 diabetes mellitus with neurological manifestation ([facility]/HCC); Essential hypertension; 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, subsequent encounter ([facility]); Dyslipidemia ([facility]/HCC); Hypertriglyceridemia (CMS/HCC); Poorly controlled diabetes mellitus ([facility]/HCC); Type 2 diabetes mellitus with hyperglycemia, with long-term current use of insulin ([facility]/HCC); Amputation of toe, traumatic, left, sequela ([facility]/HCC); Essential hypertension; Diabetic autonomic neuropathy associated with type 2 diabetes mellitus ([facility]/HCC); Acquired hallux valgus, unspecified laterality; Morbid obesity (CMS/HCC); Vitamin B 12 deficiency; 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CMS/HCC) Start: 04-19-2024 End: 04-19-2024 ambulatory BLOSSOM CODY Not Available Start: 02-28-2024 End: 02-28-2024 Refbutch Hernandez MD Work Phone: [facility] Comment on above: Pure hyperglyceridem ia ([facility]/HCC) Start: 01-26-2024 End: 01-26-2024 ambulatory [facility] Work Phone: Start: 01-26-2024 End: 01-26-2024 Patient encounter procedure [facility] Work Phone: Start: 01-20-2024 Non-patient / Non-visit [facility] Work Phone: Start: 01-19-2024 End: 01-19-2024 Bamboo flowsheet Blossom Cody JAVA MOBILE DEVELOPER Work Phone: [facility] Start: 01-19-2024 End: 01-19-2024 Bamboo flowsheet Blossom Cody JAVA MOBILE DEVELOPER Work Phone: [facility] Start: 01-19-2024 End: 01-19-2024 Office outpatient visit 25 minutes Blossom Cody JAVA MOBILE DEVELOPER Work Phone: [facility] Comment on above: Diabetic polyneuropa thy associated with type 2 diabetes mellitus ([facility]/HCC) (Primary Dx); Type 2 diabetes mellitus with neurological manifestation ([facility]/HCC); Essential hypertension; 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, subsequent encounter ([facility]); Type 2 diabetes mellitus with hyperglycemia, with long-term current use of insulin ([facility]/HCC); Dyslipidemia ([facility]/HCC); Hypertriglyceridemia ([facility]/HCC); Amputation of toe, traumatic, left, sequela ([facility]/HCC); Vitamin B 12 deficiency; Pure hyperglyceridemia ([facility]/HCC) Start: 01-19-2024 End: 01-19-2024 ambulatory BLOSSOM CODY Not Available Start: 12-30-2023 End: 12-30-2023 Lenard Hernandez MD Work Phone: [facility] Comment on above: Essential hypertensi on Start: 10-29-2023 End: 10-29-2023 ambulatory MIRLANDE S RUSHER Not Available Start: 10-19-2023 End: 10-19-2023 ambulatory [facility] Work Phone: Start: 10-19-2023 End: 10-19-2023 Patient encounter procedure [facility] Work Phone: Start: 10-12-2023 End: 10-12-2023 ambulatory MIRLANDE Zhang RUSHER Not Available Start: 09-15-2023 End: 09-15-2023 ambulatory BLOSSOM A GLO Not Available Start: 09-06-2023 End: 09-06-2023 ambulatory MIRLANDE S RUSHER Not Available Start: 08-02-2023 End: 08-02-2023 ambulatory MIRLANDE S RUSHER Not Available Start: 07-07-2023 End: 07-07-2023 ambulatory BLOSSOM A GLO Not Available Start: 06-16-2023 Bamboo flowsheet Blossom cabrales JAVA MOBILE DEVELOPER Work Phone: [facility] Start: 06-16-2023 Bamboo flowsheet Blossom cabrales JAVA MOBILE DEVELOPER Work Phone: [facility] Start: 06-16-2023 End: 06-16-2023 Office outpatient visit 25 minutes Blossom Cody JAVA MOBILE DEVELOPER Work Phone: [facility] Comment on above: Diabetic polyneuropa thy associated with type 2 diabetes mellitus (CMS/HCC) (Primary Dx); Diabetic neuropathic arthropathy ([facility]); Type 2 diabetes mellitus with neurological manifestation ([facility]/HCC); 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, sequela ([facility]/HCC); Ulcer of foot due to type 2 diabetes mellitus ([facility]/HCC); Vitamin B 12 deficiency; Hx of diabetic neuropathy; 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CMS/HCC); Hypertriglyceridemia (CMS/HCC); 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, 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); Essential hypertension; Nasal congestion; Type 2 diabetes mellitus with diabetic autonomic neuropathy, with long-term current use of insulin (CMS/HCC); 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 (Z79.4); Acquired absence of other toe(s), unspecified side (Z89.429); Type 2 diabetes mellitus with diabetic neuropathy, with long-term current use of insulin ([facility]); Body mass index [BMI] 50.0-59.9, adult (Z68.43); Type 2 diabetes mellitus with foot ulcer, with long-term current use of insulin ([facility]); 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.49); Status post amputation of lesser toe, unspecified laterality ([facility]); Arthritis of left foot; Acquired hallux valgus of left foot; Type 2 diabetes mellitus with hyperglycemia, with long-term current use of insulin ([facility]); Morbid obesity ([facility]) Start: 06-16-2023 End: 06-16-2023 ambulatory BLOSSOM CODY Not Available Start: 06-15-2023 End: 06-15-2023 ambulatory Tondra Mapus Other [employer] Other Start: 06-15-2023 Telephone encounter Tondra Mapus [facility] Start: 06-09-2023 (DM) Diabetes Tondra Mapus [facility] Start: 06-09-2023 End: 06-09-2023 Discharged Recurring MD Natalie Hernandez Work Phone: [facility] Work Phone: Start: 06-09-2023 End: 06-09-2023 ambulatory MD Natalie Hernandez Work Phone: [employer] Other Start: 06-09-2023 End: 06-09-2023 Patient encounter procedure MD Natalie Hernandez Work Phone: [facility] Start: 01-04-2023 (DM) Diabetes Tondra Mapus [facility] Start: 01-04-2023 End: 01-04-2023 ambulatory Tondra Mapus Other [employer] Other Start: 12-21-2022 End: 12-21-2022 ambulatory Tondra Mapus Other [employer] Other Start: 12-21-2022 Telephone encounter Tondra Shannon Ortiz [facility] Start: 10-12-2022 ambulatory NATANAEL Marks [facility] Faci lity:H1 Start: 10-06-2022 End: 10-07-2022 ambulatory [facility] Facility:H1 Start: 10-01-2022 Encounter for prepro cedural cardiovascular examination [facility] Start: 10-01-2022 Encounter for prepro cedural laboratory examination [facility] Start: 09-30-2022 End: 10-01-2022 ambulatory [facility] Facility:H1 Start: 09-30-2022 End: 10-01-2022 Encounter for preprocedural laboratory examination [facility] Facility:H1 Start: 09-15-2022 End: 09-16-2022 ambulatory [facility] Facility:H1 Start: 09-10-2022 End: 09-10-2022 ambulatory Tondra Mapus Other [employer] Other Start: 09-10-2022 Telephone encounter Tondra [facility] Start: 08-24-2022 End: 08-25-2022 ambulatory NATANAEL Marks [facility] Facility:H1 Start: 08-10-2022 End: 08-10-2022 ambulatory Tondra Mapus Other [employer] Other Start: 08-10-2022 Telephone encounter Tondra Dayannaus [facility] Start: 08-03-2022 End: 08-04-[address] NATALIE HERNANDEZ Facility:H1 Start: 07-13-2022 End: 07-14-2022 ambulatory MARTELL NAVAS Facility:H1 Start: 06-30-2022 End: 07-01-2022 ambulatory [facility] Facility:H1 Start: 06-25-2022 (DM) Diabetes Tondra Shannon [facility] Start: 06-25-2022 End: 06-25-2022 ambulatory Tondra Mapus Other [employer] Other Start: 06-16-2022 End: 06-17-2022 ambulatory PETER [...] 02-18-2022 End: 02-18-2022 ambulatory Tondra Mapus Other [employer] Other Start: 02-18-2022 Telephone encounter Tona Shannon [facility] Start: 02-09-2022 End: 02-10-2022 ambulatory PETER D HIGHLANDER Facility:H1 Start: 01-26-2022 End: 01-27-2022 ambulatory PETER D HIGHLANDER Facility:H1 Start: 01-13-2022 End: 01-14-2022 ambulatory PETER D HIGHLANDER Facility:H1 Start: 01-06-2022 (DM) Diabetes Tondra Dayanna [facility] Start: 01-06-2022 End: 01-06-2022 ambulatory Link Ortega Other [employer] Other Start: 12-29-2021 End: 12-30-2021 ambulatory PETER [...] HIGHLANDER Facility:H1 Start: 10-21-2021 End: 10-22-2021 ambulatory PETER D HIGHLANDER Facility:H1 Start: 10-20-2021 End: 10-21-2021 ambulatory PETER D HIGHLANDER Facility:H1 Procedures Date Procedure Procedure Detail Performing Clinician Start: 05-30-2024 BLOOD CULTURE 2 Generic External Data Provider Start: 05-26-2024 AEROBIC CULTURE Generic External Data Provider Start: 04-27-2024 BLOOD CULTURE 2 Generic External Data Provider Start: 04-27-2024 BLOOD CULTURE 1 Generic External Data Provider Start: 04-25-2024 BLOOD CULTURE 2 Generic External Data Provider Amputation of toe Tondra Map us Other History of amputatio n of lesser toe Status post amputation of lesser toe, unspecified laterality ([facility]) Blossom Cody NP Work Phone: Plan of Treatment Date Care Activity Detail Author Start: 07-26-2025 Glaucoma screening Diabetes: Retinopathy Screening [facility] Start: 07-19-2024 End: 07-19-2024 Patient encounter procedure 07/19/2024 9:30 AM EDT Office Visit [facility] [address] [place] [address] Blossom Cody NP [address] [place], [place] [id number] [facility] Start: 04-26-2024 Hemoglobin A1c measurement Diabetes: Hemoglobin A1C [facility] Start: 04-19-2024 End: 04-19-2024 Patient encounter procedure [facility] Comment on above: Diabetic polyneuropathy associated with type 2 diabetes mellitus ([facility]) (Primary Dx); Wellness examination; Type 2 diabetes mellitus with neurological manifestation ([facility]); Essential hypertension; 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, subsequent encounter ([facility]); Dyslipidemia ([facility]); Hypertriglyceridemia ([facility]); Poorly controlled diabetes mellitus ([facility]); Type 2 diabetes mellitus with hyperglycemia, with long-term current use of insulin ([facility]); Amputation of toe, traumatic, left, sequela ([facility]) Start: 03-24-2024 Urine screening for protein Diabetes: Urine Protein Screening [facility] Start: 03-15-2024 Influenza vaccination Influenza Vaccine (#1) [facility] Comment on above: Postponed from 01/09/2024 (Patient Refus ed) Start: 01-25-2024 End: 01-25-2024 Patient encounter procedure 01/25/2024 10:30 AM EDT Office Visit [facility] [address] [place] [address] Blossom Cody NP [address] [facility] [place] [address] [facility] Start: 01-19-2024 Hemoglobin A1c measurement Diabetes: Hemoglobin A1C [facility] Start: 01-19-2024 End: 01-19-2024 Patient encounter procedure 01/19/2024 11:00 AM EDT Office Visit [facility] [address] [facility] [place] [phone] Blossom Cody NP [address] [place] [address] Diabetic polyneuropathy associated with type 2 diabetes mellitus (CMS/HCC) (Primary Dx); 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); Essential hypertension; 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, subsequent encounter (CMS/HCC); Type 2 diabetes mellitus with hyperglycemia, with long-term current use of insulin (CMS/HCC); Dyslipidemia (CMS/HCC); Hypertriglyceridemia (CMS/HCC); Amputation of toe, traumatic, left, sequela (CMS/HCC); Vitamin B 12 deficiency [facility] Comment on above: Diabetic polyneuropathy associated with [...] procedure 09/15/2023 9:30 AM EDT Office Visit [facility] [address] [place] [phone] Blossom Cody NP [address] [place] [address] [facility] Start: 09-07-2023 Hemoglobin A1c measurement Diabetes: Hemoglobin A1C [facility] Start: 07-26-2023 Glaucoma screening Diabetes: Retinopathy Screening [facility] Start: 07-07-2023 End: 07-07-2023 Patient encounter procedure 07/07/2023 9:00 AM EST Office Visit [facility] [address] [place] [address] [facility] Start: 06-16-2023 End: 06-16-2023 Patient encounter procedure 06/16/2023 11:00 AM EST Office Visit [facility] [address] [place] [address] Blossom Cody NP [address] [place] [address] Diabetic polyneuropathy associated with type [...] disorder (CMS/HCC); Morbid obesity (CMS/HCC); Hypertriglyceridemia (CMS/HCC) [facility] Comment on above: Diabetic polyneuropathy associated with [...] CULTURE Lab Routine 05/26/2024 6:16 PM EST [facility] BLOOD CULTURE 1 BLOOD CULTURE 1 Lab Routine 04/27/2024 6:10 AM [facility] BLOOD CULTURE 2 BLOOD CULTURE 2 Lab Routine 04/25/2024 1:00 PM [facility] BLOOD CULTURE 2 BLOOD CULTURE 2 Lab Routine 04/27/2024 6:24 AM [facility] BLOOD CULTURE 2 BLOOD CULTURE 2 Lab Routine 05/30/2024 12:28 PM EST [facility] Comprehensive metabo lic 2000 panel - Serum or Plasma [facility] Patient Education Diabetes and diet [facility] Work Phone: [facility] Immunizations Immunization Date Immunization Notes Care Provider Huong aguirre 03-14-2024 influenza, seasonal, injectable, preservative free Blossom Cody [employer] Work Phone: [facility] 03-14-2024 influenza virus vacc ine, unspecified formulation Blossom Cody [employer] Work Phone: [facility] 07-05-2023 tetanus and diphther ia toxoids, adsorbed, preservative free, for adult use (2 Lf of tetanus toxoid and 2 Lf of diphtheria toxoid) Natalie Hernandez MD Work Phone: [facility] 03-24-2023 influenza, injectabl e, quadrivalent, preservative free Blossomdidier Cody [employer] Work Phone: [facility] 03-24-2023 influenza virus vacc ine, unspecified formulation Natalie Hernandez MD Work Phone: [facility] 08-26-2021 tetanus and diphther ia toxoids, adsorbed, preservative free, for adult use (5 Lf of tetanus toxoid and 2 Lf of diphtheria toxoid) Blossom Cody [employer] Work Phone: [facility] 03-28-2021 influenza, injectabl e, quadrivalent, preservative free Blossomdidier Cody [employer] Work Phone: [facility] 02-13-2020 Influenza, injectabl e, Madin Nel Canine Kidney, preservative free, quadrivalent Blossom Glo [employer]EL[employer] Work Phone: [facility] 02-22-2019 influenza, injectabl e, quadrivalent, preservative free Blossom Cody [employer]EL[employer] Work Phone: [facility] 02-07-2018 influenza, injectabl e, quadrivalent, preservative free Blossom Cody [employer]EL[employer] Work Phone: [facility] Healthcare Payers Date Payer Category Payer Private Health Insurance [facility] [id number] 2022 Unknown [id number] 2020 Self-pay [id number] 1979 Unknown [id number] 2.16.840.1.219448.3.579. 2.593 1979 Unknown [id number] 2.16.840.1.890705.3.579. 2.593 1979 Unknown [id number] 2.16.840.1.663098.3.579. 2.593 1979 Unknown [id number] 2.16.840.1.814253.3.579. 2.593 1979 Unknown [id number] 2.16.840.1.967670.3.579. 2.593 1979 Unknown [id number] 2.16.840.1.149045.3.579. 2.593 1979 Unknown [id number] 2.16.840.1.949013.3.579. 2.593 1979 Unknown [id number] 2.16.840.1.190952.3.579. 2.593 1979 Unknown [id number] 2.16.840.1.550959.3.579. 2.593 1979 Unknown [id number] 2.16.840.1.565935.3.579. 2.593 1979 Unknown [id number] 2.16.840.1.096209.3.579. 2.593 1979 Unknown [id number] 2.16.840.1.049907.3.579. 2.593 1979 Unknown [id number] 2.16.840.1.925796.3.579. 2.593 1979 Unknown [id number] 2.16.840.1.342301.3.579. 2.593 1979 Unknown [id number] 2.16.840.1.637181.3.579. 2.593 1979 Unknown [id number] 2.16.840.1.842986.3.579. 2.593 1979 Unknown [id number] 2.16.840.1.393314.3.579. 2.593 1979 Unknown [id number] 2.16.840.1.920318.3.579. 2.593 1979 Unknown [id number] 2.16.840.1.341607.3.579. 2.593 1979 Unknown [id number] 2.16.840.1.053092.3.579. 2.593 1979 Unknown [id number] 2.16.840.1.255381.3.579. 2.593 1979 Unknown [id number] 2.16.840.1.931447.3.579. 2.593 1979 Unknown [id number] 2.16.840.1.996537.3.579. 2.593 1979 Unknown [id number] 2.16.840.1.780639.3.579. 2.593 1979 Unknown [id number] 2.16.840.1.484787.3.579. 2.593 1979 Unknown [id number] 2.16.840.1.801235.3.579. 2.593 1979 Unknown [id number] 2.16.840.1.937468.3.579. 2.593 1979 Unknown [id number] 2.16.840.1.639064.3.579. 2.593 1979 Unknown [id number] 2.16.840.1.564740.3.579. 2.593 1979 Unknown [id number] 2.16.840.1.223461.3.579. 2.593 1979 Unknown [id number] 2.16.840.1.436291.3.579. 2.593 1979 Unknown [id number] 2.16.840.1.513369.3.579. 2.593 1979 Unknown [id number] 2.16.840.1.124181.3.579. 2.593 1979 Unknown [id number] 2.16.840.1.246750.3.579. 2.593 1979 Unknown [id number] 2.16.840.1.511928.3.579. 2.593 1979 Unknown [id number] 2.16.840.1.070963.3.579. 2.593 1979 Unknown [id number] 2.16.840.1.890273.3.579. 2.593 1979 Unknown [id number] 2.16.840.1.129658.3.579. 2.593 1979 Unknown [id number] 2.16.840.1.972931.3.579. 2.593 1979 Unknown [id number] 2.16.840.1.322678.3.579. 2.593 1979 Unknown [id number] 2.16.840.1.455428.3.579. 2.593 1979 Unknown [id number] 2.16.840.1.880106.3.579. 2.1259 1979 Unknown [id number] 2.16.840.1.268291.3.579. 2.9 1979 Unknown [id number] 2.16.840.1.080965.3.579. 2.9 1979 Unknown [id number] 2.16840.1.563408.3.579. 2.9 1979 Unknown [id number] 2.16840.1.552424.3.579. 2.9 1979 Unknown [id number] 2.16.840.1.572014.3.579. 2.9 1979 Unknown [id number] 2.16.840.1.390571.3.579. 2.9 1979 Unknown [id number] 2.16.840.1.326245.3.579. 2.1259 1979 Unknown [id number] 2.16840.1.276280.3.579. 2.1259 1959 Unknown [id number] 2.16.840.1.465401.19 1959 Unknown [id number] .16840.1.605987.19 Unknown [id number] 2.16.840.1.738093.3.579. 2.531 Unknown [id number] 2.16.840.1.834044.3.579. 2.531 Social History Date Type Detail Facility Unknown if ever smoked [employer] Other Start: 03-23-2023 End: 04-19-2024 Sex Assigned At [facility] Start: 12-21-2022 Tobacco smoking status NHIS Never smoked tobacco [facility] Start: 12-21-2022 Tobacco use and exposure Smokeless tobacco non-user [facility] Start: 05-18-2023 End: 04-27-2024 Alcohol intake [...] Sex Assigned At Male F [facility] Start: 10-19-2023 Tobacco smoking status NHIS Ex-smoker (finding) [facility] Medical Equipment Procedure Code Equipment [...] 02/28/2024 11:53 AM EDTTelephone Encounter - Blossom Cody, [employer] - 02/28/2024 11:53 AM EDT Note Date [...] polyneuropathy associated with type 2 diabetes mellitus ([facility]/HCC) Comments: Pt sees endo. HgbA1c 01/31 7.4 [...] of toe of right foot, subsequent encounter ([facility]/HCC) Comments: Sees Dr Feldman and Oscar Dyslipidemia ([facility]/HCC) Comments: Lipids: Chol 126, Trig 219, HDL 25, LDL 69, ratio 5 per Endo lab in jan Hypertriglyceridemia (CMS/HCC) Comments: See above last 290 in Mar 2023-so better. Avoid sweets. enc fruit and elliot veget, lean protein nuts, exercise Poorly controlled diabetes mellitus ([facility]/HCC) Type 2 diabetes mellitus with hyperglycemia, with long-term current use of insulin ([facility]/HCC): See Endo Amputation of toe, traumatic, left, sequela ([facility]/HCC): Sees Podiatry Diabetic autonomic neuropathy associated with type 2 diabetes mellitus (CMS/HCC: See above Acquired hallux valgus, unspecified laterality: Sees Podiatry Morbid obesity ([facility]): See above Vitamin B12 deficiency: 374 on [...] 40 for awhile. Needs Statin refill. Saw Jeffrey Johnson in July Review of Systems Constitutional: Positive [...] polyneuropathy associated with type 2 diabetes mellitus ([facility]/HCC) Comments: HgbA1c 9.7 in October. He sees Endo. Plans to do lab for them this week. He has Endo appt next week. Enc yearly eye exams. Enc to watch portions on carbs, avoid sweets. Try to be as active as able. 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) Essential hypertension: Controlled. Pt will verify what dose he has at home ie 30 or 40mg of Lisinopril. 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 Avoid sweets, more fruits and mainly non-starchy vegetables, lean protien, nuts and routine exercise. Amputation of toe, traumatic, left, sequela (CMS/HCC) Vitamin B 12 deficiency Comments: Last Vit B12 351 Pt declined flu vaccine today, prefers to wait into later February, could stop back here or do at work or pharmacy. Does not plan to get any more covid vaccines. Enc to think about Prevnar 20. F/U in 3 months for Wellness, sooner if concerns. PVU documented in this encounter [facility] 12-30-2023 Telephone encount er Note Rx sent [facility] 12-30-2023 Miscellaneous Notes Formattin g of [...] sugars ranging from 120-170's. Sees Joshua in [place], next appt September 13 with them. Taking [...] polyneuropathy associated with type 2 diabetes mellitus ([facility]/HCC) Comments: Aislinn Lewis, last HgbA1c 8.11 May 2023 (prior 8.9 end of December). Pt asked me why we can't just take care of his Diabetes, so he doesn't have to go to [place]. I told him because his sugars are [...] DM care again. 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 Now has left foot toe amputated. [...] (CMS/HCC): Hx of Morbid obesity (CMS/[facility]) Comments: Enc healthy diet, watch sweets carbs. Balance diet with carb proteinm try to add vegeatbles, Enc physical activity as able Hypertriglyceridemia (CMS/[facility]) Comments: Last lipids 04/01 Chol 142, [...] current use of insulin (CMS/[facility]): Hx of [facility] (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 (Z79.4): Hx of Acquired absence of other toe(s), unspecified side (Z89.429): Hx of Type 2 diabetes mellitus with diabetic neuropathy, with long-term current use of insulin (CMS/[facility]); Hx of Body mass index [BMI] 50.0-59.9, adult (Z68.43): See above. Discussed seeing weight loss provider or seeing someone about gastric bypass-pt declined both. 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 Feldman May, Cracked skin on feet (ICD-10 - R23.4) keep f/u with Dr. Feldman [employer] Other 08-28-2023 Evaluation note* Encounter Date Diagnosis [...] for Lispro/ozempic 0.5mg sent to [facility] [place] 01/04/23 7. Prescriptions will not be filled [...] (hypertension) (ICD-10 - I10) on julissa Dec, [facility] current use of insulin (ICD-10 - Z79.4) Dec, Vitamin B 12 deficiency (ICD-10 - E53.8) 12/30 vit b 12 335 at target Dec, BMI 50.0-59.9, adult (ICD-10 - Z68.43) see above Dec, Wound of foot (ICD-10 - S91.309A) pt has apt scheduled with Dr. Francia keenan [employer] Other 05-30-2023 NotePROCEDURE: XR FOOT LT MIN [...] by: FRANCO FRANCES Date: 2022-10-06 14:13[facility]05-04-2023 Evaluation note* Encounter Date Diagnosis Assessment Notes Treatment Notes Treatment Clinical Notes September, Type 2 diabetes mellitus with hyperglycemia (ICD-10 - E11.65) [employer] Other 04-17-2023 NotePROCEDURE: XR FOOT LT MIN [...] by: FERN SOSA Date: 2022-08-24 12:46[facility]02-16-2023 Evaluation note* Encounter Date Diagnosis Assessment Notes Treatment Notes Treatment Clinical Notes Jun, Type 2 diabetes mellitus with hyperglycemia (ICD-10 - E11.65) 1. Uncontrolled, a Type 2 diabetes with A1c of 8.2% 2. Blood glucose levels above target. Discussed with pt restarting ozempic, he had s/e from higher dose ozempic 1mg and concern with cost works at [employer]. Pt agreeable to starting sample ozempic 0.5mg dose- he was given sample and administered first dose 0.25mg; reviewed with pt dosing 0.25mg once weekly x4 weeks then 0.5mg once weekly. Reviewed with pt how to titrate basal/bolus insulin according to fasting am/ac supper/ meal to meal glucose pattern. Pt verebalizes understandng. Note: Cost is prohibitive for pt to take jardiance. Jose Luisglatro is tier 2 on formulary. Reviewed with [...] issues. 6. Prescriptions: Syringes/ozempic/st eglatro sent to [facility] in [place] 06/25/22 7. Prescriptions will not be filled [...] (hypertension) (ICD-10 - I10) on julissa Jun, [facility] current use of insulin (ICD-10 - Z79.4) Jun, Vitamin B 12 deficiency (ICD-10 - E53.8) 12/28 vit b 12 423 at target Jun, BMI 50.0-59.9, adult (ICD-10 - Z68.43) [employer] Other [id number] NotePROCEDURE: XR ANKLE LT MIN 3 V, [...] by: GISSEL RUBIO Date: 2022-06-16 16:33[facility]02-07-2023 NotePROCEDURE: XR ANKLE LT MIN [...] by: GISSEL RUBIO Date: 2022-06-16 16:33[facility]08-30-2022 Evaluation note* Encounter Date Diagnosis [...] (hypertension) (ICD-10 - I10) on julissa Dec, [facility] current use of insulin (ICD-10 - Z79.4) Dec, Vitamin B 12 deficiency (ICD-10 - E53.8) 12/28 vit b 12 423 at target Dec, BMI 45.0-49.9, adult (ICD-10 - Z68.42) 14 pound weight loss from last visit, continue with weight loss efforts [employer] Other 01-01-2021 History general Narrative - Reported* Type Description Date Medical History type II diabetes Medical History hypertension Medical History hyperlipidemia Medical History covid 05/2020 Surgical History Ulcer on left great toe X2 Surgical History Partial amputation Right great toe 01/2021 Surgical History All toes right foot amputated Hospitalization History Toe infection 2017 [employer] Other 01-01-2021 History general Narrative - Reported* Type Description Date Medical History type II diabetes Medical History hypertension Medical History hyperlipidemia Medical History covid 05/2020 Surgical History Ulcer on left great toe X2 Surgical History Partial amputation Right great toe 01/2021 Surgical History All toes right foot amputated Surgical History Left great toe corre ctive surgery with Dr. Feldman in [place] 10/2022 Hospitalization History Toe infection 2017 [employer] Other chief complaint+Reason for visit Narrative* Chief Complaint no meter Reason for Visit BMI 50.0-59.9, adult Dietary counseling and surveillance Hypertension Mixed hyperlipidemia Type 2 diabetes mellitus with hyperglycemia [facility] Work Phone: chief complaint+Reason for visit Narrative* Chief Complaint meter Reason for Visit BMI 50.0-59.9, adult Dietary counseling and surveillance Hypertension Mixed hyperlipidemia Type 2 diabetes mellitus with hyperglycemia Wound of left foot Wound of right foot [facility] Work Phone: Evaluation noteNo InformationNort [employer] Other Evaluation note* Diagnosis Diabetic polyneuropathy associated with type 2 diabetes mellitus ([facility]/HCC)- Primary Diabetic neuropathic arthropathy ([facility]/HCC) Type II or unspecified type diabetes mellitus with neurological manifestations, not stated as uncontrolled Type 2 diabetes mellitus with neurological manifestation ([facility]/HCC) 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, sequela ([facility]) Ulcer of foot due to type 2 diabetes mellitus ([facility]/HCC) Vitamin B 12 deficiency Other B-complex deficiencies Hx of diabetic neuropathy 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) Lipoprotein deficiencies Hypertriglyceridemia ([facility]) Pure hyperglyceridemia 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, 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) Essential hypertension Unspecified essential hypertension Nasal congestion Other diseases of nasal cavity and sinuses Type 2 diabetes mellitus with diabetic autonomic neuropathy, with long-term current use of insulin ([facility]/HCC) [facility] (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 (Z79.4) Acquired absence of other toe(s), unspecified side (Z89.429) Type 2 diabetes mellitus with diabetic neuropathy, with long-term current use of insulin ([facility]) Body mass index [BMI] 50.0-59.9, adult (Z68.43) Type 2 diabetes mellitus with foot ulcer, with long-term current use of insulin ([facility]) 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.49) Status post amputation of lesser toe, unspecified laterality ([facility]) Arthritis of left foot Acquired hallux valgus of left foot Type 2 diabetes mellitus with hyperglycemia, with long-term current use of insulin ([facility]) Morbid obesity ([facility]) Morbid obesity documented in this encounter [facility] HealthcareEvaluation noteNo assessment information availableM[facility]it[facility] Work Phone: Evaluation note* Diagnosis Onset Date Resolution Status BMI 50.0-59.9, adult acute Dietary counseling and surveillance acute Hypertension acute Mixed hyperlipidemia acute Type 2 diabetes mellitus with hyperglycemia acute [facility] Work Phone: Evaluation note* Diagnosis Onset Date Resolution Status BMI 50.0-59.9, adult acute Dietary counseling and surveillance acute Hypertension acute Mixed hyperlipidemia acute Type 2 diabetes mellitus with hyperglycemia acute Wound of left foot acute Wound of right foot acute [facility] Work Phone: Evaluation note* Diagnosis Pure hyperglyceridemia ([facility]/HCC) Pure hyperglyceridemia documented in this encounter [facility] HealthcareEvaluation note* Diagnosis Diabetic polyneuropathy associated with type 2 diabetes mellitus ([facility])- Primary Type 2 diabetes mellitus with neurological manifestation ([facility]) Essential hypertension Unspecified essential hypertension 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, subsequent encounter ([facility]) Type 2 diabetes mellitus with hyperglycemia, with long-term current use of insulin ([facility]) Dyslipidemia ([facility] Other and unspecified hyperlipidemia Hypertriglyceridemia ([facility]) Pure hyperglyceridemia Vitamin B 12 deficiency Other B-complex deficiencies Pure hyperglyceridemia ([facility]) Pure hyperglyceridemia documented in this encounter [facility] HealthcareEvaluation note* Diagnosis Diabetic polyneuropathy associated with type 2 diabetes mellitus ([facility])- Primary Wellness examination Type 2 diabetes mellitus with neurological manifestation ([facility]) Essential hypertension Unspecified essential hypertension 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, subsequent encounter ([facility]) Dyslipidemia ([facility] Other and unspecified hyperlipidemia Hypertriglyceridemia ([facility]) Pure hyperglyceridemia Poorly controlled diabetes mellitus ([facility]) Type II or unspecified type diabetes mellitus without mention of complication, not stated as uncontrolled Type 2 diabetes mellitus with hyperglycemia, with long-term current use of insulin ([facility]) Diabetic autonomic neuropathy associated with type 2 diabetes mellitus ([facility]) Type II or unspecified type diabetes mellitus with neurological manifestations, not stated as uncontrolled Acquired hallux valgus, unspecified laterality Morbid obesity ([facility]) Morbid obesity Vitamin B 12 deficiency Other B-complex deficiencies 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[facility]) Lipoprotein deficiencies documented in this encounter [facility] HealthcareEvaluation note* Diagnosis Essential hypertension Unspecified essential hypertension documented in this encounter [facility] Healthcare Summary Purpose Family History Relationship Condition [...] section and content) DATE CREATED AUTHOR 08/27/2021 [facility] DATE CREATED AUTHOR AUTHOR'S ORGANIZ ATION 10/17/2022 [facility] DATE CREATED AUTHOR AUTHOR'S ORGANIZ ATION 04/22/2024 [facility] EPIC DATE CREATED AUTHOR AUTHOR'S ORGANIZ ATION 04/29/2024 [facility] REASON FOR VISIT (unrecogniz [...] January 26, 2024 End: January 26, 2024 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 Relationship Specialty Start Date End Date Natalie Hernandez MD [address] [place] [address] PCP - General Family Medicine 09/15/22 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 Relationship Specialty Start Date End Date Natalie Hernandez MD [address] [place] [address] PCP - General Family Medicine 09/15/22 Team [...] October 19, 2023 End: October 19, 2023 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 Relationship Specialty Start Date End Date Natalie Hernandez MD [address] [facility] [place] [address] PCP - General Family Medicine 09/15/22 Blossom Cody NP [address] [facility] [place] [address] Nurse Practitioner Family Medicine 01/19/24 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 Relationship Specialty Start Date End Date Natalie Hernandez MD [address] [facility] [place] [address] PCP - General Family Medicine 09/15/22 Blossom Cody NP [address] [place] [address] Nurse Practitioner Family Medicine 01/19/24 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 Relationship Specialty Start Date End Date Natalie Hernandez MD [address] [facility] [place] [address] PCP - General Family Medicine 09/15/22 Blossom Cody NP [address] [facility] [place] [address] Nurse Practitioner Family Medicine 01/19/24 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 Relationship Specialty Start Date End Date Natalie Hernandez MD [address] [place] [address] PCP - General Family Medicine 09/15/22 Blossom Cody NP [address] [place] [address] Nurse Practitioner Family Medicine 01/19/24 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 Relationship Specialty Start Date End Date Natalie Hernandez MD [address] [place] [address] PCP - General Family Medicine 09/15/22 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 Relationship Specialty Start Date End Date Natalie Hernandez MD [address] [place] [address] PCP - General Family Medicine 09/15/22 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 Relationship Specialty Start Date End Date Natalie Hernandez MD [address] [place] [address] PCP - General Family Medicine 09/15/22 Blossom Cody NP [address] [place] [address] Nurse Practitioner Family Medicine 01/19/24 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 Relationship Specialty Start Date End Date Natalie Hernandez MD [address] [facility] [place] [address] PCP - General Family Medicine 09/15/22 Blossom Cody NP [address] [place] [address] Nurse Practitioner Family Medicine 9/11/24 Goals (unrecognized section and content) Goals may [...] BE BASED ON THE PRIMARY CLINICAL RECORDS. [facility] [employer] [facility]. provides no warranty or guarantee of the accuracy or completeness of information in this document.
== END 2024-06-06 15:34 | disposition home or self-care (01) ==
LOC: WC 15:33
PROVIDERS: PCP Family Medicine; Visit Provider Physician Assistant
DX: E11.621 Type 2 diabetes mellitus with foot ulcer (principal); L97.412 Non-pressure chronic ulcer of right heel and midfoot with fat layer exposed
CPT/HCPCS: 97606

== ENCOUNTER 2024-06-13 14:38 | Outpatient (OUT) | payer OTHER, SELFPAY | END 2024-06-13 14:39 | disposition home or self-care (01) | LOC: WC 14:38 | PROVIDERS: PCP Family Medicine; Visit Provider Physician Assistant | DX: E11.621 Type 2 diabetes mellitus with foot ulcer (principal); L97.412 Non-pressure chronic ulcer of right heel and midfoot with fat layer exposed | CPT/HCPCS: 29515 ==

== ENCOUNTER 2024-06-21 15:42 | Outpatient (OUT) | payer OTHER, SELFPAY | END 2024-06-21 15:43 | disposition home or self-care (01) | LOC: WC 15:42 | PROVIDERS: PCP Family Medicine; Visit Provider Physician Assistant | DX: E11.621 Type 2 diabetes mellitus with foot ulcer (principal); L97.412 Non-pressure chronic ulcer of right heel and midfoot with fat layer exposed | CPT/HCPCS: 29515 ==

== ENCOUNTER 2024-06-28 14:53 | Outpatient (OUT) | payer OTHER, SELFPAY | END 2024-06-28 14:54 | disposition home or self-care (01) | LOC: WC 14:53 | PROVIDERS: PCP Family Medicine; Visit Provider Physician Assistant | DX: E11.621 Type 2 diabetes mellitus with foot ulcer (principal); L97.412 Non-pressure chronic ulcer of right heel and midfoot with fat layer exposed; E11.622 Type 2 diabetes mellitus with other skin ulcer; L97.311 Non-pressure chronic ulcer of right ankle limited to breakdown of skin | CPT/HCPCS: 29445 ==

== ENCOUNTER 2024-07-05 15:15 | Outpatient (OUT) | payer OTHER, SELFPAY | END 2024-07-05 15:16 | disposition home or self-care (01) | LOC: WC 15:15 | PROVIDERS: PCP Family Medicine; Visit Provider Physician Assistant | DX: E11.621 Type 2 diabetes mellitus with foot ulcer (principal); L97.412 Non-pressure chronic ulcer of right heel and midfoot with fat layer exposed | CPT/HCPCS: 29445 ==

== ENCOUNTER 2024-07-11 15:37 | Outpatient (OUT) | payer OTHER, SELFPAY ==
--- OUTSIDE RECORDS SUMMARY | 2024-07-11 16:01 | XMS_ITS | CCD ---
Author Organization [facility] [place] [facility] CliniSywy Care Team Providers Care Audio/Visual Manager Name Role Phone Link Ortega Unavailable NATANAEL [...] Primary Care Unavailable JOY DOBBS Consulting Unavailable FRANCIA, NATANAEL Marks Attending Unavailable NATANAEL FELDMAN Consulting [...] NATANAEL FELDMAN Admitting Unavailable RAMIRO, DR GISSEL Kholi Consulting Unavailable WONDERLY, DR NATALIE Lozada Primary [...] Care Unavailable HIGHLANDER, NATANAEL Marks Consulting Unavailable MICHELLEANDER, NATANAEL Marks Attending Unavailable WONDERLY, DR NATALIE Lozada Primary Care Unavailable HIGHLANDER, NATANAEL Marks Admitting Unavailable HIGHLANDER, NATANAEL Marks Attending Unavailable HIGHLANDER, NATANAEL Marks Admitting Unavailable WONDERLY, DR NATALIE Lozada Primary Care Unavailable HIGHLANDER, NATANAEL Marks Attending Unavailable WONDERLY, DR NATALIE Lozada Primary Care Unavailable HIGHLANDER, NATANAEL Marks Admitting Unavailable WonderNatalie ruiz MD Primary Care Provider MD Damon Claros Attending Provider MD Natalie Hernandez [facility] Care Provider Natalie Hernandez MD Primary Care Provider Gl[address] ROLLER ENGINEER, Blossom Kong Unavailable GLO, BLOSSOM Kong Attending Unavailable GLO, BLOSSOM A Attending Unavailable RUSHER, MIRLANDE S Attending Unavailable RUSHER, MIRLANDE S Attending Unavailable GLO, BLOSSOM A Attending Unavailable RUSHER, MIRLANDE S Attending Unavailable RUSHER, MIRLANDE S Attending Unavailable GLO, BLOSSOM A Attending Unavailable GLO, BLOSSOM Kong Attending Unavailable Wonderly, [facility] Primary Care Unavailable Francia, Natanael Marks Admitting Unavailable Francia, Natanael Marks Attending Unavailable Wondersara, [facility] Care Unavailable Damon Claros Admitting Unavailable Damon Claros Attending Unavailable Shelby AVALOS [facility] Provider [phone] Natanael Feldman DPM Attending Provider Medications Current Medications Medication Drug Class(es) Dates Sig (Normalized) Sig (Original) 0.25 MG, 0.5 MG Dose 3 ML semaglutide 0.68 MG/ML Pen Injector [Ozempic] (1 source) Start: 01-04-2023 inject 0.5 mg by subcutaneous injection every week Ozempic (0.25 or 0.5 MG/DOSE) 2 MG/3ML 0.5mg Subcutaneous once weekly for 84 days Dec, Active ampicillin 2000 mg / sulbactam 1000 mg injection (1 source) Penicillin-class Antibacterial, beta Lactamase Inhibitor Start: 06-14-2024 inject 3 g by intramuscular injection every six hours Ampicillin-Sulbact am (Unasyn) 3 gram recon soln Active 3 GM IM Every 6 hours June 14, 2024 12:00am aspirin 81 mg chewable tablet (20 sources) Platelet Aggregation Inhibitor, Nonsteroidal Anti-inflammatory Drug Start: 10-19-2023 take 1 tablet by mouth once daily Aspirin 81 mg tablet,chewable Active 81 MG PO Daily October 18, 2023 11:00pm take 1 tablet by mouth in the mo rn aspirin 81 MG EC tablet Take 1 tablet by mouth in the morning. Active take 1 tablet by janna th every twenty-four hours Aspirin 81 MG 1 tablet Orally Once a day Active atorvastatin 40 mg oral tablet (20 sources) HMG-CoA Reductase Inhibitor Start: 02-08-2023 End: 02-28-2024 take 1 tablet by mouth once daily Atorvastatin 40 mg tablet Active 40 MG PO Daily October 18, 2023 11:00pm dapagliflozin 10 mg oral tablet (13 sources) Sodium-Glucose Cotransporter 2 Inhibitor Start: 10-19-2023 take 1 tablet by mouth once daily in the morning Dapagliflozin Propanediol (Farxiga) 10 mg tablet Active 10 MG PO Every morning October 18, 2023 11:00pm ertugliflozin 15 mg oral tablet (12 sources) [...] (titrate up to max 50 units/day) Active Insulin Glargine-Yfgn 100 unit/mL solution (7 sources) Start: 02-28-2024 Insulin Glargi ne-Yfgn 100 unit/mL solution Active 44 UNIT SUBCUT Twice daily 100 February 28, 2024 8:56am Start: 10-19-2023 End: 02-28-2024 Insulin Glargine-Yfgn 100 un it/mL solution Discontinued 44 UNIT SUBCUT Twice daily 100 October 19, 2023 11:27am February 28, 2024 8:56am Start: 10-19-2023 End: 10-19-2023 Insulin Glargine-Yfgn 100 un it/mL solution Discontinued 44 UNIT SUBCUT Twice daily October 19, 2023 11:04am October 19, 2023 11:27am Start: 10-19-2023 End: 10-19-2023 Insulin Glargine-Yfgn 100 un it/mL solution Discontinued 40 UNIT SUBCUT Twice daily October 19, 2023 10:40am October 19, 2023 11:05am Start: 07-26-2023 End: 10-19-2023 Insulin Glargine-Yfgn 100 un it/mL solution Discontinued 46 UNIT SUBCUT Twice daily 90 90 July 26, 2023 2:32pm October 19, 2023 10:40am Start: 07-26-2023 End: 07-26-2023 Insulin Glargine-Yfgn 100 un it/mL solution Discontinued 46 UNIT SUBCUT Twice daily 90 90 July 26, 2023 8:10am July 26, 2023 2:33pm Start: 07-26-2023 End: 07-26-2023 Insulin Glargine-Yfgn 100 un it/mL solution Discontinued UNIT SUBCUT July 25, 2023 11:00pm July 26, 2023 8:15am FreeTextSig: INJECT 46 UNITS SQ bid; Note: Source Status: Increase(titrate up to max 50 units/day); Provider: Shannon Price insulin glargine-yfgn 100 UNT/ML Injectable Solution (2 [...] the evening. Inject with meals. 0 Active Insulin Lispro 100 unit/mL solution (5 sources) Start: 02-28-2024 Insulin Lispro 100 unit/mL solution Active 0 SUBCUT .COMPLEX 60 February 28, 2024 9:07am subcutaneously; 1:4 carb ratio ac tid. 1:15 corrective scale ac tid (hs if >200 half dose) as directed; (expect up to 66 units/day) Start: 01-26-2024 End: 02-28-2024 Insulin Lispro 100 unit/mL s olution Discontinued 0 SUBCUT .COMPLEX 60 January 26, 2024 9:37am February 28, 2024 9:12am subcutaneously; 1:4 carb ratio ac tid. 1:15 corrective scale ac tid (hs if >200 half dose) as directed; (expect up to 60 units/day) Start: 12-15-2023 End: 01-26-2024 Insulin Lispro 100 unit/mL s olution Discontinued 0 SUBCUT .COMPLEX 60 December 15, 2023 1:47pm January 26, 2024 9:37am subcutaneously; 1:4 carb ratio ac tid. 1:15 corrective scale ac tid (hs if >200 half dose) as directed; (expect up to 60 units/day) Start: 10-19-2023 End: 12-15-2023 Insulin Lispro 100 unit/mL s olution Discontinued 0 SUBCUT .COMPLEX 60 October 19, 2023 11:27am December 15, 2023 1:48pm subcutaneously; 1:4 carb ratio ac tid. 1:15 corrective scale ac tid (hs if >200 half dose) as directed; (expect up to 60 units/day) Start: 10-19-2023 End: 10-19-2023 Insulin Lispro 100 unit/mL s olution Discontinued 0 SUBCUT .COMPLEX October 18, 2023 11:00pm October 19, 2023 11:28am subcutaneously; 1:4 carb ratio ac tid. 1:15 corrective scale ac tid (hs if >200 half dose) as directed; (expect up to 60 units/day) linezolid 600 mg oral tablet (1 source) Oxazolidinone Antibacterial Start: 06-14-2024 take 1 tablet by mouth twice daily Linezolid 600 mg tablet Active 600 MG PO Twice daily June 14, 2024 12:00am 3 ml liraglutide 6 mg/ml pen injector (15 sources) GLP-1 Receptor Agonist Start: 10-19-2023 Liraglutide (Victoza 3-Connor) 0.6 mg/0.1 mL (18 mg/3 mL) pen injector Active 0 SUBCUT .COMPLEX October 18, 2023 11:00pm inject 1.8mg once daily Start: 06-09-2023 inject 1.8 mg by sub cutaneous injection once daily Victoza 18 MG/3ML 1.8mg Subcutaneous daily for 84 days May, Active lisinopril 30 mg oral tablet (20 sources) Angiotensin Converting Enzyme Inhibitor Start: 06-16-2023 End: 10-16-2024 take 1 tablet by mouth once daily Lisinopril 30 mg tablet Active 30 MG PO Daily October 18, 2023 11:00pm End: 06-16-2023 take 1 tablet by mouth in the morning lisinopril 20 MG tablet Take 1 tablet by mouth in the morning. 0 06/16/2023 Discontinued (Dose adjustment) metFORMIN hydrochloride 500 mg oral tablet (20 sources) Biguanide Start: 07-22-2023 End: 07-22-2023 take 2 tablets by mouth twice daily Metformin 500 mg tablet Active 1000 MG PO Twice daily 360 July 22, 2023 1:45pm FreeTextSi tablets Orally Twice a day; Note: Source Status: Taking; Refills: 3; Qty: 360 Tablet; Provider: Shannon Price Start: 07-22-2023 End: 07-22-2023 take 2 tablets by mouth twice daily Metformin Active 1000 MG PO Twice daily 360 July 22, 2023 2:45pm FreeTextSi tablets Orally Twice a day; Note: Source Status: Taking; Refills: 3; Qty: 360 Tablet; Provider: Shannon Price OneTouch Verio - (8 sources) Start: 02-18-2022 [...] day) Subcutaneous BID for 90 day(s) Active traZODone hydrochloride 100 mg oral tablet (1 source) Serotonin Reuptake Inhibitor Start: 06-14-2024 take 1 tablet by mouth once daily Trazodone 100 mg tablet Active 100 MG PO Daily June 14, 2024 12:00am urea 400 mg/ml topical cream (10 sources) [...] LT FOOT] Onset: 10-07-2022 Episodic Administrative/social admission (9 sources) Dietary counseling and surveillance; Translations: [Patient [...] with hyperglycemia] Onset: 01-06-2022 Resolved: 06-17-2023 Chronic Diabetes mellitus without complication (1 source) Diabetes mellitus; Translations: [Type 2 diabetes mellitus without complications] 06-14-2024 Chronic Disorders of lipid metabolism (20 sources) [...] 11-03-2023 11-03-2023 Chronic Open wounds of extremities (7 sources) Unspecified open wound, unspecified foot, initial encounter; Translations: [Injury of left foot] Episodic Osteoarthritis (17 sources) Arthritis of left foot; Translations: [Primary osteoarthritis, left ankle and foot] Onset: 10-02-2022 10-02-2022 Chronic Other aftercare (12 sources) Long-term current use of insulin; Translations: [...] Test Name Value Interpretation Reference Range Facility [facility] 04-26-2024 L Specimen: [id number] Received: 04/26/24 Status: CALEB Gabriel Num: [id number] Spec Type: Surgical Subm Dr: Natanael Feldman,[place], [place] Tissues: A Skin-Other than Cyst, tag, debridement or plastic repair (RT FOOT ULCER) Procedures: TYLER Gross/Mary L4 Age/ Patient Sex Location Account Attending Physician RamaTrev Kierra 43/M LABELL [id number] Natanael Feldman DPM, MS SPEC NUM: [id number] RECD: 04/26/24 STATUS: CALEB GABRIEL NUM: [id number] MARTHA: 04/26/[address] [facility] DR: Natanael Feldman DPM, [place] ENTERED: 04/26/[address]: Anju,Lab SPEC TYPE: Surgical DEPT: DERRICK PLUNKETT ENTERED BY: [id number] RECV BY: [id number] ORDERED: HE, Gross/Micro L4 ORDERED: HE, Gross/Micro [...] reveal purple-brown to green, softened cut surfaces. Sleeve Fixer sections are submitted in a single cassette. (1, , [id number]) CPT Codes 18391 Specimen: [id number] Received: 04/26/24-1403 Status: CALEB Gabriel Num: [id number] Spec Type: Surgical Subm Dr: Natanael Feldman DPM, MS Tissues: A Skin-Other than Cyst, tag, debridement or plastic repair (RT FOOT ULCER) Procedures: Yenny SCOTT/Mary L4 Patient: Trev Ontiveros [id number] (Continued) Signed (signature on file) Melanie Roca MD 04/27/24 [id number] Normal [facility] A1C HEMOGLOBINon 06-09-2023 HbA1c (Bld) [Mass fraction] 8.2 % [employer] Other Glucose - FINGER STICKon Glucose [Mass/Vol] 170 mg/dL [facility] Other HbA1c (Bld) [Mass fraction]o n 06-09-2023 A1C HEMOGLOBIN [employer] Other A1C HEMOGLOBINon 01-04-2023 HbA1c (Bld) [Mass fraction] 8.9 % [facility] [employer] Other Glucose - FINGER STICKon Glucose [Mass/Vol] 201 mg/dL [facility] Other HbA1c (Bld) [Mass fraction]o n 01-04-2023 A1C HEMOGLOBIN [facility] [employer] Other PROF CHEM 8 (BAS METB)on Anion gap [Moles/Vol] 14.3 mmol/L Normal [facility] Comment on above: Performed By: #### B MP #### [facility] [address] [place] [address] Dr. Lauri Todd Calcium [Mass/Vol] 9.4 mg/dL Normal 8.5-10.1 [facility] Comment on above: Performed By: #### B MP #### [facility] [address] [address] [address] Lauri Todd Chloride [Moles/Vol] 101 mmol/L Normal 98-107 [facility] Comment on above: Performed By: #### B MP #### [facility] [address] [address] [address] Lauri Todd CO2 [Moles/Vol] 26.2 mmol/L Normal 21.0-32.0 [facility] Comment on above: Performed By: #### B MP #### [facility] [address] [address] [address] Lauri Todd Creatinine [Mass/Vol] 0.90 mg/dL Normal 0.70-1.30 [facility] Comment on above: Performed By: #### B MP #### [facility] [address] [address] [address] Lauri Todd EGFR-AF DJIBOUTIAN >60 Normal >=60 [facility] Comment on above: Performed By: #### B MP #### [facility] [address] [address] [address] Lauri Todd EGFR-NON AF DJIBOUTIAN >60 Normal >=60 [facility] Comment on above: Performed By: #### B MP #### [facility] [address] [place], [place] [address] Dr. Lauri Todd Glucose [Mass/Vol] 146 mg/dL Critically high 74-106 [facility] Comment on above: Performed By: #### B MP #### [facility] [address] [place], [place] [address] Dr. Lauri Todd Potassium [Moles/Vol] 4.5 mmol/L Normal 3.5-5.1 [facility] Comment on above: Performed By: #### B MP #### [facility] [address] [address] [address] Lauri Todd Sodium [Moles/Vol] 137 mmol/L Normal 136-145 [facility] Comment on above: Performed By: #### B MP #### [facility] [address] [address] [address] Lauri Todd Urea nitrogen [Mass/Vol] 16.0 mg/dL Normal 7.0-18.0 [facility] Comment on above: Performed By: #### B MP #### [facility] [address] [address] [address] Lauri Todd Urea nitrogen/Creatinin e [Mass ratio] 17.8 mg/mg Normal [facility] Comment on above: Performed By: #### B MP #### [facility] [address] [place], [place] [address] Dr. Lauri Todd A1C HEMOGLOBINon 06-25-2022 HbA1c (Bld) [Mass fraction] 8.2 % [facility] [employer] Other Glucose - FINGER STICKon Glucose [Mass/Vol] 180 mg/dL [facility] Other HbA1c (Bld) [Mass fraction]o n 06-25-2022 A1C HEMOGLOBIN [facility] [employer] Other XR FOOT LT MIN 3 VIEWSon [...] by: RAFAEL WHITAKER Date: 2022-05-25 11:52 Normal [facility] A1C HEMOGLOBINon 01-06-2022 HbA1c (Bld) [Mass fraction] 7 % [facility] Other Glucose - FINGER STICKon Glucose [Mass/Vol] 148 mg/dL [facility] Other HbA1c (Bld) [Mass fraction]o n 01-06-2022 A1C HEMOGLOBIN [facility] [employer] Other Basic Metabolic Panelon 04- Anion gap [Moles/Vol] 20 mmol/L Normal 12-20 [facility] Comment on above: Result Comment: Effe ctive 05/15/2019 reference range changed. Performed By: #### B MP #### [facility] [address] [place], [place] [id number] Calcium [Mass/Vol] 10.0 mg/dL Normal 8.6-10.2 [facility] Comment on above: Performed By: #### B MP #### [facility] [address] [place], [place] [id number] Chloride [Moles/Vol] 100 mmol/L Normal 98-107 [facility] Comment on above: Performed By: #### B MP #### [facility] [address] [place], [place] [id number] CO2 [Moles/Vol] 22 mmol/L Normal 20-31 [facility] Comment on above: Performed By: #### B MP #### [facility] [address] [place], [place] [id number] Creatinine [Mass/Vol] 0.8 mg/dL Normal 0.7-1.4 [facility] Comment on above: Performed By: #### B MP #### [facility] [address] [place], [place] [id number] eGFRAA 129 mL/min/1.73m2 Normal >60 [facility] Comment on above: Performed By: #### B MP #### [facility] [address] [place], [place] [id number] eGFRNAA 107 mL/min/1.73m2 Normal >60 [facility] Comment on above: Performed By: #### B MP #### [facility] [address] [place], [place] [id number] Glucose [Mass/Vol] 140 mg/dL High 65-99 [facility] Comment on above: Result Comment: For FASTING Glucose --- ADA reference ranges: Normal 65-99 mg/dl Prediabetes 100-125 Diabetes >/= 126 Performed By: #### B MP #### [facility] [address] [place], [place] [id number] Potassium [Moles/Vol] 4.3 mmol/L Normal 3.5-5.5 [facility] Comment on above: Performed By: #### B MP #### [facility] [address] [place], [place] [id number] Sodium [Moles/Vol] 137 mmol/L Normal 135-146 [facility] [employer] Comment on above: Performed By: #### B MP #### [facility] [address] [place], [place] [id number] Urea nitrogen [Mass/Vol] 17 mg/dL Normal 7-25 [facility] Comment on above: Performed By: #### B MP #### [facility] [address] [place], [place] [id number] Vital Signs Date Time Vital Sign Value Performing Clinician Facility 06-14-2024 14:55-0500 Body height 182.88 cm Natalie Hernandez MD Work Phone: [facility] 06-14-2024 14:55-0500 Body mass index (BMI) [Ratio] 48.8 kg/m2 Natalie Hernandez MD Work Phone: [facility] 06-14-2024 14:55-0500 Body temperature 98.1 [degF] Natalie Hernandez MD Work Phone: [facility] 06-14-2024 14:55-0500 Body weight 163.29 kg Natalie Hernandez MD Work Phone: [facility] 06-14-2024 14:55-0500 Diastolic blood pressure 75 mm[Hg] Natalie Hernandez MD Work Phone: [facility] 06-14-2024 14:55-0500 Heart rate 104 /min Natalie Hernandez MD Work Phone: [facility] 06-14-2024 14:55-0500 Systolic blood pressure 124 mm[Hg] Natalie Hernandez MD Work Phone: [facility] 04-19-2024 09:47-0500 Body mass index (BMI) [Ratio] 52.21 kg/m2 [address] ROLLER ENGINEER Work Phone: [facility] 04-19-2024 09:47-0500 Body weight 172.[address] ROLLER ENGINEER Work Phone: [facility] 04-19-2024 09:47-0500 Diastolic blood pressure 72 mm[Hg] Bloss[address] ROLLER ENGINEER Work Phone: [facility] 04-19-2024 09:47-0500 Heart rate 84 /min [address]oss[address] ROLLER ENGINEER Work Phone: [facility] 04-19-2024 09:47-0500 Systolic blood pressure 128 mm[Hg] Bloss[address] ROLLER ENGINEER Work Phone: [facility] 01-26-2024 09:59-0400 Body height 182.88 cm [facility] 01-26-2024 09:59-0400 Body mass index (BMI) [Ratio] 51.2 kg/m2 [facility] 01-26-2024 09:59-0400 Body weight 171.54 kg [facility] 01-26-2024 09:59-0400 Diastolic blood pressure 83 mm[Hg] [facility] 01-26-2024 09:59-0400 Heart rate 81 /min [facility] 01-26-2024 09:59-0400 Respiratory rate 18 /min [facility] 01-26-2024 09:59-0400 SaO2% (BldA) [Mass fraction] 94 % [facility] 01-26-2024 09:59-0400 Systolic blood pressure 155 mm[Hg] [facility] 01-19-2024 11:00-0400 Body mass index (BMI) [Ratio] 51.82 kg/m2 [address]oss[address] ROLLER ENGINEER Work Phone: [facility] 01-19-2024 11:00-0400 Body weight 170.[address] ROLLER ENGINEER Work Phone: [facility] 01-19-2024 11:00-0400 Diastolic blood pressure 78 mm[Hg] [address] ROLLER ENGINEER Work Phone: [facility] 01-19-2024 11:00-0400 Heart rate 84 /min [address]oss[address] ROLLER ENGINEER Work Phone: [facility] 01-19-2024 11:00-0400 Systolic blood pressure 136 mm[Hg] [address] ROLLER ENGINEER Work Phone: [facility] 10-19-2023 11:31-0400 Body height 182.88 cm [facility] 10-19-2023 11:31-0400 Body mass index (BMI) [Ratio] 51.7 kg/m2 [facility] 10-19-2023 11:31-0400 Body weight 172.87 kg [facility] 10-19-2023 11:31-0400 Diastolic blood pressure 83 mm[Hg] [facility] 10-19-2023 11:31-0400 Heart rate 74 /min [facility] 10-19-2023 11:31-0400 Respiratory rate 18 /min [facility] 10-19-2023 11:31-0400 SaO2% (BldA) [Mass fraction] 97 % [facility] 10-19-2023 11:31-0400 Systolic blood pressure 149 mm[Hg] [facility] 06-16-2023 11:33-0500 Diastolic blood pressure 84 mm[Hg] [address] ROLLER ENGINEER Work Phone: [facility] 06-16-2023 11:33-0500 Systolic blood pressure 154 mm[Hg] [address] ROLLER ENGINEER Work Phone: [facility] 06-16-2023 11:02-0500 Body mass index (BMI) [Ratio] 52.12 kg/m2 [address]oss[address] ROLLER ENGINEER Work Phone: [facility] 06-16-2023 11:02-0500 Body weight 171.[address] ROLLER ENGINEER Work Phone: [facility] 06-16-2023 11:02-0500 Heart rate 92 /min [address] ROLLER ENGINEER Work Phone: [facility] 06-09-2023 08:45-0500 Body height [employer] Other [facility] [facility] [employer] Other 06-09-2023 08:45-0500 Body height 182.88 cm MD Natalie Hernandez Work Phone: [facility] 06-09-2023 08:45-0500 Body mass index (BMI) [Ratio] 51.33 kg/m2 Tondra Mapus Other [facility] [employer] Other 06-09-2023 08:45-0500 Body weight 171.69 kg Tondra Mapus Other [facility] [employer] Other 06-09-2023 08:45-0500 Body weight 171.68 kg MD Natalie Hernandez Work Phone: [facility] 06-09-2023 08:45-0500 Diastolic blood pressure 80 mm[Hg] Tondra Mapus Other [facility] 06-09-2023 08:45-0500 Respiratory rate 18 /min Tondra Mapus Other [employer] Other 06-09-2023 08:45-0500 SaO2% (BldA) [Mass fraction] 94 % Tondra Mapus Other [facility] [employer] Other 06-09-2023 08:45-0500 Systolic blood pressure 148 mm[Hg] Tondra Mapus Other [facility] 01-04-2023 08:45-0400 Body height Tondra Mapus Other [employer] Other 01-04-2023 08:45-0400 Body mass index (BMI) [Ratio] 51.37 kg/m2 Tondra Mapus Other [employer] Other 01-04-2023 08:45-0400 Body weight 171.82 kg Tondra Mapus Other [facility] Other 01-04-2023 08:45-0400 Diastolic blood pressure 85 mm[Hg] Tondra Mapus Other [facility] Other 01-04-2023 08:45-0400 Respiratory rate 18 /min Tondra Mapus Other [facility] Other 01-04-2023 08:45-0400 SaO2% (BldA) [Mass fraction] 98 % Tondra Mapus Other [facility] Other 01-04-2023 08:45-0400 Systolic blood pressure 150 mm[Hg] Tondra Mapus Other [facility] Other 06-25-2022 09:45-0500 Body height Tondra Mapus Other [facility] Other 06-25-2022 09:45-0500 Body mass index (BMI) [Ratio] 51.14 kg/m2 Tondra Mapus Other [facility] Other 06-25-2022 09:45-0500 Body weight 171.05 kg Tondra Mapus Other [facility] Other 06-25-2022 09:45-0500 Diastolic blood pressure 80 mm[Hg] Tondra Mapus Other [facility] Other 06-25-2022 09:45-0500 Respiratory rate 18 /min Tondra Mapus Other [facility] Other 06-25-2022 09:45-0500 SaO2% (BldA) [Mass fraction] 95 % Tondra Mapus Other [facility] Other 06-25-2022 09:45-0500 Systolic blood pressure 139 mm[Hg] Tondra Mapus Other [facility] Other 01-06-2022 09:45-0400 Body height Tondra Mapus Other [facility] Other 01-06-2022 09:45-0400 Body mass index (BMI) [Ratio] 48.28 kg/m2 Tondra Mapus Other [facility] Other 01-06-2022 09:45-0400 Body weight 161.48 kg Tondra Mapus Other [facility] Other 01-06-2022 09:45-0400 Diastolic blood pressure 71 mm[Hg] Tondra Mapus Other [facility] Other 01-06-2022 09:45-0400 Respiratory rate 20 /min Tondra Mapus Other [facility] Other 01-06-2022 09:45-0400 SaO2% (BldA) [Mass fraction] 95 % Tondra Mapus Other [facility] Other 01-06-2022 09:45-0400 Systolic blood pressure 124 mm[Hg] Tondra Mapus Other [facility] Other Encounters Encounter Date Encounter Type Care Provider Facility Start: 06-14-2024 End: 06-14-2024 ambulatory Natalie Hernandez MD Work Phone: [facility] Work Phone: Start: 06-14-2024 End: 06-14-2024 Patient encounter procedure Natalie Hernandez MD Work Phone: [facility] Work Phone: Start: 05-30-2024 End: 06-01-2024 Clinisync Result Encounter [...] Start: 04-26-2024 End: 04-26-2024 ambulatory Natalie Hernandez Facility:[facility] Start: 04-26-2024 End: 04-26-2024 Departed Referred Natalie Hernandez MD Work Phone: [facility] Start: 04-25-2024 End: 04-27-2024 Clinisync Result Encounter Generic External Data Provider [facility] External Department Unsolicited Start: 04-25-2024 End: 04-27-2024 Clinisync Result Encounter Generic External Data Provider [facility] External Department Unsolicited Start: 04-19-2024 End: 04-19-2024 Bamboo flowsheet [address] ROLLER ENGINEER Work Phone: [facility] Start: 04-19-2024 End: 04-19-2024 Bamboo flowsheet [address] [employer]LLER ENGINEER Work Phone: [facility] Start: 04-19-2024 End: 04-19-2024 Patient encounter status Blossom Cody NP Work Phone: [facility] Start: 04-19-2024 End: 04-19-2024 Periodic preventive med est patient 40-64yrs [address] [employer] ENGINEER Work Phone: [facility] Comment on above: Diabetic polyneuropa thy associated with type 2 diabetes mellitus (CMS/HCC) (Primary Dx); Wellness examination; 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); Essential hypertension; 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, subsequent encounter (CMS/HCC); Dyslipidemia (CMS/HCC); Hypertriglyceridemia (CMS/HCC); Poorly controlled diabetes mellitus (CMS/HCC); Type 2 diabetes mellitus with hyperglycemia, with long-term current use of insulin (CMS/HCC); Amputation of toe, traumatic, left, sequela (CMS/HCC); Essential hypertension; Diabetic autonomic neuropathy associated with type 2 diabetes mellitus ([facility]); Acquired hallux valgus, unspecified laterality; Morbid obesity ([facility]); Vitamin B 12 deficiency; 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 Work Phone: Start: 01-26-2024 End: 01-26-2024 Patient encounter procedure [facility] Work Phone: Start: 01-20-2024 Non-patient / Non-visit [facility] Work Phone: Start: 01-19-2024 End: 01-19-2024 Bamboo flowsheet [address]ossom [address] ROLLER ENGINEER Work Phone: [facility] Start: 01-19-2024 End: 01-19-2024 Bamboo flowsheet [address]ossom [address] ROLLER ENGINEER Work Phone: [facility] Start: 01-19-2024 End: 01-19-2024 Office outpatient visit 25 minutes Blossom Cody NP Work Phone: [facility] Comment on above: Diabetic polyneuropa thy associated with type 2 diabetes mellitus ([facility]) (Primary Dx); Type 2 diabetes mellitus with neurological manifestation ([facility]); Essential hypertension; 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, subsequent encounter ([facility]); Type 2 diabetes mellitus with hyperglycemia, with long-term current use of insulin ([facility]); Dyslipidemia ([facility]); Hypertriglyceridemia ([facility]); Amputation of toe, traumatic, left, sequela ([facility]); Vitamin B 12 deficiency; Pure hyperglyceridemia ([facility]/HCC) Start: 01-19-2024 End: 01-19-2024 ambulatory BLOSSOM A GLO Not Available Start: 12-30-2023 End: 12-30-2023 Lenard Hernandez MD Work Phone: [facility] Comment on above: Essential hypertensi on Start: 10-29-2023 End: 10-29-2023 ambulatory MIRLANDE S RUSHER Not Available Start: 10-19-2023 End: 10-19-[address] [facility] Work Phone: Start: 10-19-2023 End: 10-19-2023 Patient encounter procedure [facility] Work Phone: Start: 10-12-2023 End: 10-12-2023 ambulatory MIRLANDE S RUSHER Not Available Start: 09-15-2023 End: 09-15-2023 ambulatory BLOSSOM A GLO Not Available Start: 09-06-2023 End: 09-06-2023 ambulatory MIRLANDE S RUSHER Not Available Start: 08-02-2023 End: 08-02-2023 ambulatory MIRLANDE S RUSHER Not Available Start: 07-07-2023 End: 07-07-2023 ambulatory BLOSSOM A GLO Not Available Start: 06-16-20[address] Bamboo [address] ROLLER ENGINEER Work Phone: [facility] Start: 06-16-2023 Bamboo flowsheet [address] ROLLER ENGINEER Work Phone: [facility] Start: 06-16-2023 End: 06-16-2023 Office outpatient visit [address] ROLLER ENGINEER Work Phone: [facility] Comment on above: Diabetic polyneuropa thy associated with type 2 diabetes mellitus (CMS/HCC) (Primary Dx); Diabetic neuropathic arthropathy (CMS/HCC); 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); 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, sequela (CMS/HCC); Ulcer of foot due to type 2 diabetes mellitus (CMS/HCC); Vitamin B 12 deficiency; Hx of diabetic neuropathy; 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[facility]/HCC); Hypertriglyceridemia ([facility]); 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, 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); Essential hypertension; Nasal congestion; Type 2 diabetes mellitus with diabetic autonomic neuropathy, with long-term current use of insulin (CMS/HCC); [facility] (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 (Z79.4); Acquired absence of other toe(s), unspecified side (Z89.429); Type 2 diabetes mellitus with diabetic neuropathy, with long-term current use of insulin ([facility]); Body mass index [BMI] 50.0-59.9, adult (Z68.43); Type 2 diabetes mellitus with foot ulcer, with long-term current use of insulin ([facility]); 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.49); Status post amputation of lesser toe, unspecified laterality ([facility]); Arthritis of left foot; Acquired hallux valgus of left foot; Type 2 diabetes mellitus with hyperglycemia, with long-term current use of insulin ([facility]); Morbid obesity ([facility]) Start: 06-16-2023 End: 06-16-2023 ambulatory BLOSSOM CODY Not Available Start: 06-15-2023 End: 06-15-2023 ambulatory Link Ortega Other [facility] Other Start: 06-15-2023 Telephone encounter Link Ortega [facility] Start: 06-09-2023 (DM) Diabetes Link Ortega [facility] Start: 06-09-2023 End: 06-09-2023 Discharged Recurring MD Natalie Hernandez [facility] Work Phone: Start: 06-09-2023 End: 06-09-2023 ambulatory MD Natalie Hernandez Work Phone: [facility] Other Start: 06-09-2023 End: 06-09-2023 Patient encounter procedure MD Natalie Hernandez Work Phone: [facility]- Start: 01-04-2023 (DM) Diabetes Tondra Mapus [facility] Start: 01-04-2023 End: 01-04-2023 ambulatory Tondra Mapus Other [facility] Other Start: 12-21-2022 End: 12-21-2022 ambulatory Tondra Mapus Other [facility] Other Start: 12-21-2022 Telephone encounter Tondra Mapus [facility] Start: 10-12-2022 ambulatory NATANAEL Selina [facility] Faci lity:H1 Start: 10-06-2022 End: 10-07-2022 ambulatory NATANAEL [facility] Facility:H1 Start: 10-01-2022 Encounter for prepro cedural cardiovascular examination [facility] Start: 10-01-2022 Encounter for prepro cedural laboratory examination [facility] Start: 09-30-2022 End: 10-01-2022 ambulatory [facility] Facility:H1 Start: 09-30-2022 End: 10-01-2022 Encounter for preprocedural laboratory examination [facility] Facility:H1 Start: 09-15-2022 End: 09-16-2022 ambulatory NATANAEL Marks [facility] Facility:H1 Start: 09-10-2022 End: 09-10-2022 ambulatory Tondra Mapus Other [facility] Other Start: 09-10-2022 Telephone encounter Tondra Mapus [facility] Start: 08-24-2022 End: 08-25-2022 ambulatory NATANAEL Selina [facility] Facility:H1 Start: 08-10-2022 End: 08-10-2022 ambulatory Tondra Mapus Other [facility] Other Start: 08-10-2022 Telephone encounter Tondra Mapus [facility] Start: 08-03-2022 End: 08-04-[address] NATALIE HERNANDEZ Facility:H1 Start: 07-13-2022 End: 07-14-2022 ambulatory MARTELL NAVAS Facility:H1 Start: 06-30-2022 End: 07-01-2022 ambulatory PETER D HIGHLANDER Facility:H1 Start: 06-25-2022 (DM) Diabetes Tondra Shannon [facility] Start: 06-25-2022 End: 06-25-2022 ambulatory Tondra Mapus Other [facility] Other Start: 06-16-2022 End: 06-17-2022 ambulatory PETER [...] 02-18-2022 End: 02-18-2022 ambulatory Tondra Mapus Other [facility] Other Start: 02-18-2022 Telephone encounter Tondra Dayannaus [facility] Start: 02-09-2022 End: 02-10-2022 ambulatory PETER D HIGHLANDER Facility:H1 Start: 01-26-2022 End: 01-27-2022 ambulatory PETER D HIGHLANDER Facility:H1 Start: 01-13-2022 End: 01-14-2022 ambulatory PETER D HIGHLANDER Facility:H1 Start: 01-06-2022 (DM) Diabetes Tondra Mapus [facility] Start: 01-06-2022 End: 01-06-2022 ambulatory Tondra Mapus Other [place] [facility] Other Start: 12-29-2021 End: 12-30-2021 ambulatory PETER [...] HIGHLANDER Facility:H1 Start: 10-21-2021 End: 10-22-2021 ambulatory [facility] Facility:H1 Start: 10-20-2021 End: 10-21-2021 ambulatory [facility] Facility:H1 Procedures Date Procedure Procedure Detail [...] post amputation of lesser toe, unspecified laterality ([facility]) Blossom Cody NP Work Phone: Plan of Treatment Date Care Activity Detail Author Start: 07-26-2025 Glaucoma screening Diabetes: Retinopathy Screening [facility] Start: 07-19-2024 End: 07-19-2024 Patient encounter procedure 07/19/2024 9:30 AM EDT Office Visit [facility] [address] [place] [phone] Blossom Cody NP [address] [place] [address] [facility] Start: 04-26-2024 Hemoglobin A1c measurement Diabetes: Hemoglobin A1C [facility] Start: 04-19-2024 End: 04-19-2024 Patient encounter procedure [facility] Comment on above: Diabetic polyneuropathy associated with type 2 diabetes mellitus ([facility]) (Primary Dx); Wellness examination; Type 2 diabetes mellitus with neurological manifestation ([facility]); Essential hypertension; 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, subsequent encounter ([facility]); Dyslipidemia (CMS/HCC); Hypertriglyceridemia (CMS/HCC); Poorly controlled diabetes mellitus (CMS/HCC); Type 2 diabetes mellitus with hyperglycemia, with long-term current use of insulin ([facility]); Amputation of toe, traumatic, left, sequela ([facility]) Start: 03-24-2024 Urine screening for protein Diabetes: Urine Protein Screening [facility] Start: 03-15-2024 Influenza vaccination Influenza Vaccine (#1) [facility] Comment on above: Postponed from 01/09/2024 (Patient Refus ed) Start: 01-25-2024 End: 01-25-2024 Patient encounter procedure 01/25/2024 10:30 AM EDT Office Visit [facility] [address] [place] [phone] Blossom Cody NP [address] [place] [address] [facility] Start: 01-19-2024 Hemoglobin A1c measurement Diabetes: Hemoglobin A1C [facility] Start: 01-19-2024 End: 01-19-2024 Patient encounter procedure 01/19/2024 11:00 AM EDT Office Visit [facility] [address] [place] [phone] Blossom Cody NP [address] [place] [address] Diabetic polyneuropathy associated with type 2 diabetes mellitus ([facility]/HCC) (Primary Dx); Type 2 diabetes mellitus with neurological manifestation ([facility]/HCC); Essential hypertension; 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, subsequent encounter ([facility]); Type 2 diabetes mellitus with hyperglycemia, with long-term current use of insulin ([facility]/HCC); Dyslipidemia (CMS/HCC); Hypertriglyceridemia (CMS/HCC); Amputation of toe, traumatic, left, sequela ([facility]/HCC); Vitamin B 12 deficiency [facility] Comment on above: Diabetic polyneuropathy associated with type 2 diabetes mellitus ([facility]/HCC) (Primary Dx); 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); Essential hypertension; 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, subsequent encounter ([facility]/HCC); Type 2 diabetes mellitus with hyperglycemia, with long-term current use of insulin (CMS/HCC); Dyslipidemia (CMS/HCC); Hypertriglyceridemia (CMS/HCC); Amputation of toe, traumatic, left, sequela (CMS/HCC); Vitamin B 12 deficiency Start: 01-09-2024 Influenza vaccination Influenza Vaccine (#1) [facility] Start: 09-15-2023 End: 09-15-2023 Patient encounter procedure 09/15/2023 9:30 AM EDT Office Visit [facility] [address] [place] [address] Blossom Cody NP [address] [place] [address] [facility] Start: 09-07-2023 Hemoglobin A1c measurement Diabetes: Hemoglobin A1C [facility] Start: 07-26-2023 Glaucoma screening Diabetes: Retinopathy Screening [facility] Start: 07-07-2023 End: 07-07-2023 Patient encounter procedure 07/07/2023 9:00 AM EST Office Visit [facility] [address] [place] [address] [facility] Start: 06-16-2023 End: 06-16-2023 Patient encounter procedure 06/16/2023 11:00 AM EST Office Visit [facility] [address] [place] [address] Blossom Cody NP [address] [place] [address] Diabetic polyneuropathy associated with type 2 diabetes [...] disorder (CMS/HCC); Morbid obesity (CMS/HCC); Hypertriglyceridemia (CMS/HCC) [facility] Comment on above: Diabetic polyneuropathy associated with type 2 diabetes mellitus (CMS/HCC) (Primary Dx); Diabetic neuropathic arthropathy (CMS/HCC); 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); 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, sequela ([facility]); Ulcer of foot due to type 2 diabetes mellitus ([facility]); Poorly controlled diabetes mellitus ([facility]); Type 2 diabetes mellitus with hyperglycemia, with long-term current use of insulin ([facility]); Vitamin B 12 deficiency; Hx of diabetic neuropathy; 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[facility]); Morbid obesity ([facility]); Hypertriglyceridemia ([facility]) AEROBIC CULTURE AEROBIC CULTURE Lab Routine 05/26/2024 6:16 PM [facility] BLOOD CULTURE 1 BLOOD CULTURE 1 Lab Routine 04/27/2024 6:10 AM [facility] BLOOD CULTURE 2 BLOOD CULTURE 2 Lab Routine 04/25/2024 1:00 PM [facility] BLOOD CULTURE 2 BLOOD CULTURE 2 Lab Routine 04/27/2024 6:24 AM [facility] BLOOD CULTURE 2 BLOOD CULTURE 2 Lab Routine 05/30/2024 12:28 PM [facility] Comprehensive metabo lic 2000 panel - Serum or Plasma [facility] Patient Education Diabetes and diet [facility] Work Phone: [facility] Immunizations Immunization Date Immunization Notes Care Provider [facility] 03-14-2024 influenza, seasonal, injectable, preservative free Blossom Cody NP Work Phone: [facility] 03-14-2024 influenza virus vacc ine, unspecified formulation Blossom Cody [address] ROLLER ENGINEER Work Phone: [facility] 07-05-2023 tetanus and diphther ia toxoids, adsorbed, preservative free, for adult use (2 Lf of tetanus toxoid and 2 Lf of diphtheria toxoid) Natalie Hernandez MD Work Phone: [facility] 03-24-2023 influenza, injectabl e, quadrivalent, preservative free Blossom Cody NP Work Phone: [facility] 03-24-2023 influenza virus vacc ine, unspecified formulation Natalie Hernandez MD Work Phone: [facility] 08-26-2021 tetanus and diphther ia toxoids, adsorbed, preservative free, for adult use (5 Lf of tetanus toxoid and 2 Lf of diphtheria toxoid) [address]ossom [address] ROLLER ENGINEER Work Phone: [facility] 03-28-2021 influenza, injectabl e, quadrivalent, preservative free Blossomdidier Lozoyael [address] ROLLER ENGINEER Work Phone: [facility] 02-13-2020 Influenza, injectabl e, Madin Smoot Canine Kidney, preservative free, quadrivalent Blossom Glo RO[address] ROLLER ENGINEER Work Phone: [facility] 02-22-2019 influenza, injectabl e, quadrivalent, preservative free Blossom Glo [address] ROLLER ENGINEER Work Phone: [facility] 02-07-2018 influenza, injectabl e, quadrivalent, preservative free Blossom Glo [address] ROLLER ENGINEER Work Phone: [facility] Healthcare Payers Date Payer Category Payer [facility] Health Insurance [facility] [id number] 2022 Unknown [id number]. [id number] 2020 Self-pay [id number] 1979 Unknown [id number] 2.16.840.1.126384.3.579. 2.593 1979 Unknown [id number] 2.16.840.1.822829.3.579. 2.593 1979 Unknown [id number] 2.16.840.1.788580.3.579. 2.593 1979 Unknown [id number] 2.16.840.1.126034.3.579. 2.593 1979 Unknown [id number] 2.16.840.1.706169.3.579. 2.593 1979 Unknown [id number] 2.16.840.1.055005.3.579. 2.593 1979 Unknown [id number] 2.16.840.1.982396.3.579. 2.593 1979 Unknown [id number] 2.16.840.1.282899.3.579. 2.593 1979 Unknown [id number] 2.16.840.1.653133.3.579. 2.593 1979 Unknown [id number] 2.16.840.1.881652.3.579. 2.593 1979 Unknown [id number] 2.16.840.1.973128.3.579. 2.593 1979 Unknown [id number] 2.16.840.1.561958.3.579. 2.593 1979 Unknown [id number] 2.16.840.1.895567.3.579. 2.593 1979 Unknown [id number] 2.16.840.1.922965.3.579. 2.593 1979 Unknown [id number] 2.16.840.1.555713.3.579. 2.593 1979 Unknown [id number] 2.16.840.1.393355.3.579. 2.593 1979 Unknown [id number] 2.16.840.1.190409.3.579. 2.593 1979 Unknown [id number] 2.16.840.1.371374.3.579. 2.593 1979 Unknown [id number] 2.16.840.1.648573.3.579. 2.593 1979 Unknown [id number] 2.16.840.1.960204.3.579. 2.593 1979 Unknown [id number] 2.16.840.1.704899.3.579. 2.593 1979 Unknown [id number] 2.16.840.1.907655.3.579. 2.593 1979 Unknown [id number] 2.16.840.1.728062.3.579. 2.593 1979 Unknown [id number] 2.16.840.1.413275.3.579. 2.593 1979 Unknown [id number] 2.16.840.1.510628.3.579. 2.593 1979 Unknown [id number] 2.16.840.1.270335.3.579. 2.593 1979 Unknown [id number] 2.16.840.1.638506.3.579. 2.593 1979 Unknown [id number] 2.16.840.1.132508.3.579. 2.593 1979 Unknown [id number] 2.16.840.1.185136.3.579. 2.593 1979 Unknown [id number] 2.16.840.1.927836.3.579. 2.593 1979 Unknown [id number] 2.16.840.1.402318.3.579. 2.593 1979 Unknown [id number] 2.16.840.1.585094.3.579. 2.593 1979 Unknown [id number] 2.16.840.1.617668.3.579. 2.593 1979 Unknown [id number] 2.16.840.1.911550.3.579. 2.593 1979 Unknown [id number] 2.16.840.1.304120.3.579. 2.593 1979 Unknown [id number] 2.16.840.1.133957.3.579. 2.593 1979 Unknown [id number] 2.16.840.1.864017.3.579. 2.593 1979 Unknown [id number] 2.16.840.1.215810.3.579. 2.593 1979 Unknown [id number] 2.16.840.1.000924.3.579. 2.593 1979 Unknown [id number] 2.16.840.1.072174.3.579. 2.593 1979 Unknown [id number] 2.16.840.1.067722.3.579. 2.593 1979 Unknown [id number] 2.16.840.1.332760.3.579. 2.1258 1979 Unknown [id number] 2.16.840.1.790015.3.579. 2.9 1979 Unknown [id number] 2.16.840.1.364620.3.579. 2.1258 1979 Unknown [id number] 2.16.840.1.739028.3.579. 2.9 1979 Unknown [id number] 2.16.840.1.111817.3.579. 2.9 1979 Unknown [id number] 2.16.840.1.713206.3.579. 2.9 1979 Unknown [id number] 2.16.840.1.156506.3.579. 2.1258 1979 Unknown [id number] 2.16.840.1.283239.3.579. 2.9 1979 Unknown [id number] 2.16.840.1.116647.3.579. 2.1259 1959 Unknown [id number] 2.16.840.1.111145.19 1959 Unknown [id number] 2.16.840.1.559183.19 Unknown [id number] 2.16.840.1.670326.3.579. 2.531 Unknown [id number] 2.16.840.1.209941.3.579. 2.531 Social History Date Type Detail Facility Unknown if ever smoked [facility] Other Start: 03-23-2023 End: 04-19-2024 Sex Assigned At [facility] Start: 12-21-2022 Tobacco smoking status MEIS Never smoked tobacco [facility] Start: 12-21-2022 [...] Start: 1980 Sex Assigned At Male F [facility] Start: 10-19-2023 End: 10-19-2023 Tobacco smoking status MEIS Ex-smoker (finding) [facility] Start: 06-14-2024 Sex Male (finding) [facility] Medical Equipment Procedure Code Equipment Code [...] Type 2 diabetes mellitus with neurological manifestation ([facility]/HCC): See above Essential hypertension Comments: Well controlled Orders: - lisinopril 30 MG tablet; Take 1 tablet (30 mg) by mouth Daily 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 Avoid sweets. enc fruit and elliot veget, lean protein nuts, exercise Poorly controlled diabetes mellitus (CMS/HCC) Type 2 diabetes mellitus with hyperglycemia, with long-term current use of insulin ([facility]/HCC): See Endo Amputation of toe, traumatic, left, sequela ([facility]/HCC): Sees Podiatry Diabetic autonomic neuropathy associated with type 2 diabetes mellitus (CMS/HCC: See above Acquired hallux valgus, unspecified laterality: Sees Podiatry Morbid obesity ([facility]): See above Vitamin B12 deficiency: 374 on recent lab in Jan Lipoprotein deficiency disorder F/U in July or August for recheck-hypertension/Diabetes, sooner if concerns documented in this encounter [facility] 02-28-2024 Telephone encount er Note Rx sent [facility] 02-28-2024 Miscellaneous Notes Formattin g of this note might be different from the original. Rx sent documented in this encounter [facility] 01-19-2024 History of Presen t illness [...] for awhile. Needs Statin refill. Saw [facility] in July Review of Systems Constitutional: Positive [...] polyneuropathy associated with type 2 diabetes mellitus ([facility]CC) Comments: HgbA1c 9.7 in October. He sees [...] hyperglycemia, with long-term current use of insulin ([facility]): As above Dyslipidemia ([facility]) Comments: Last LDL 79 in Mar 2023 Hypertriglyceridemia ([facility]) Comments: Last Trig 290 in Mar 2023. Avoid sweets, more fruits and mainly non-starchy vegetables, lean protien, nuts and routine exercise. Amputation of toe, traumatic, left, sequela ([facility]) Vitamin B 12 deficiency Comments: Last Vit B12 351 Pt declined flu vaccine today, prefers to wait into later February, could stop back here or do at work or pharmacy. Does not plan to get any more covid vaccines. Enc to think about Prevnar 20. F/U in 3 months for Wellness, sooner if concerns. PVU documented in this encounter [facility] 12-30-2023 Telephone encount er Note Rx sent [facility] 12-30-2023 Miscellaneous Notes Formattin g of this note might be different from the original. Rx sent documented in this encounter [facility] 06-16-2023 History of Presen t illness [...] polyneuropathy associated with type 2 diabetes mellitus ([facility]) Comments: Sees Joshua, last HgbA1c [...] DM care again. PVU Diabetic neuropathic arthropathy ([facility]) Comments: Hx of Type 2 diabetes mellitus with neurological manifestation ([facility]): See above 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, sequela ([facility]) Comments: Hx of Sees Dr Feldman. Now has left foot toe amputated. Per pt toe is healing Ulcer of foot due to type 2 diabetes mellitus ([facility]): Hx of Poorly controlled diabetes mellitus ([facility]): Last HgbA1c 8.2 Type 2 diabetes mellitus with hyperglycemia, with long-term current use of insulin ([facility]): As above Vitamin B 12 deficiency Comments: Last WNL at 351 Hx of diabetic neuropathy: Hx of 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[facility]): Hx of Morbid obesity ([facility]) Comments: Enc healthy diet, watch sweets carbs. 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 Discussed seeing weight loss provider or seeing someone about gastric bypass-pt declined both. He is not interested in this Type 2 diabetes mellitus with foot ulcer, with long-term current use of insulin ([facility]): Hx of (no ulcer at this time, bu lit recent amputation of 4th toe 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.49): Hx of Status post amputation of lesser toe, unspecified laterality ([facility]): 4th toe-has appt for follow up with Dr Feldman Arthritis of left foot: Hx of Acquired hallux valgus of left foot: Hx of Type 2 Diabetes mellitus with hyperglycemia with watermaster current use of insulin ([facility]): Hx of Morbid obesity: See above documented in this encounter [facility] 06-15-2023 Evaluation note Encounter Date Diagnosis Assessment Notes Jun, Type 2 diabetes mellitus with hyperglycemia (ICD-10 - E11.65) [facility] Other 01-31-2024 Evaluation note* Encounter Date Diagnosis [...] - R23.4) keep f/u with Dr. Feldman [facility] Other 08-28-2023 Evaluation note* Encounter Date Diagnosis [...] for Lispro/ozempic 0.5mg sent to [facility] in [place] 01/04/23 7. Prescriptions will not be filled [...] has apt scheduled with Dr. Feldman today [facility] Other 05-30-2023 NotePROCEDURE: XR FOOT LT MIN [...] Electronically authenticated by: FRANCO FRANCES Date: 2022-10-06 14:13[facility]05-04-2023 Evaluation note* Encounter Date Diagnosis Assessment Notes Treatment Notes Treatment Clinical Notes September, Type 2 diabetes mellitus with hyperglycemia (ICD-10 - E11.65) [facility] Other 04-17-2023 NotePROCEDURE: XR FOOT LT MIN [...] Electronically authenticated by: FERN SOSA Date: 2022-08-24 12:46[facility]02-16-2023 Evaluation note* Encounter Date Diagnosis Assessment Notes Treatment Notes Treatment Clinical Notes Jun, Type 2 diabetes mellitus with hyperglycemia (ICD-10 - E11.65) 1. Uncontrolled, a Type 2 diabetes with A1c of 8.2% 2. Blood glucose levels above target. Discussed with pt restarting ozempic, he had s/e from higher dose ozempic 1mg and concern with cost works at [employer]. Pt agreeable to starting sample ozempic 0.5mg [...] sent to [facility] [place] 06/25/22 7. Prescriptions will not be filled [...] Jun, BMI 50.0-59.9, adult (ICD-10 - Z68.43) [facility] Other 02-07-2023 NotePROCEDURE: XR ANKLE LT MIN [...] Electronically authenticated by: GISSEL RUBIO Date: 2022-06-16 16:33[facility]02-07-2023 NotePROCEDURE: XR ANKLE LT MIN 3 [...] Electronically authenticated by: GISSEL RUBIO Date: 2022-06-16 16:33[facility]08-30-2022 Evaluation note* Encounter Date Diagnosis Assessment [...] last visit, continue with weight loss efforts [facility] Other 01-01-2021 History general Narrative - Reported* Type Description Date Medical History type II diabetes Medical History hypertension Medical History hyperlipidemia Medical History covid 05/2020 Surgical History Ulcer on left great toe X2 Surgical History Partial amputation Right great toe 01/2021 Surgical History All toes right foot amputated Hospitalization History Toe infection 2017 [facility] Other 01-01-2021 History general Narrative - Reported* Type Description Date Medical History type II diabetes Medical History hypertension Medical History hyperlipidemia Medical History covid 05/2020 Surgical History Ulcer on left great toe X2 Surgical History Partial amputation Right great toe 01/2021 Surgical History All toes right foot amputated Surgical History Left great toe corre ctive surgery with Dr. Feldman in [place] 10/2022 Hospitalization History Toe infection [address] [facility] [employer] Other [employer] complaint+Reason for visit Narrative* Chief Complaint no meter Reason for Visit BMI 50.0-59.9, adult Dietary counseling and surveillance Hypertension Mixed hyperlipidemia Type [address] with hyperglycemia [facility] Work Phone: Chiof complaint+Reason for visit Narrative* Chief Complaint meter Reason for Visit BMI 50.0-59.9, adult Dietary counseling and surveillance Hypertension Mixed hyperlipidemia Type 2 diabetes mellitus with hyperglycemia Wound of left foot Wound of right foot 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, sequela ([facility]) Ulcer of foot due to type 2 diabetes mellitus ([facility]) Vitamin B 12 deficiency Other B-complex deficiencies Hx of diabetic neuropathy 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[facility]) Lipoprotein deficiencies Hypertriglyceridemia ([facility]) Pure hyperglyceridemia 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, 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) Essential hypertension Unspecified essential hypertension Nasal congestion Other diseases of nasal cavity and sinuses Type 2 diabetes mellitus with diabetic autonomic neuropathy, with long-term current use of insulin ([facility]) 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 (Z79.4) Acquired absence of other toe(s), unspecified side (Z89.429) Type 2 diabetes mellitus with diabetic neuropathy, with long-term current use of insulin ([facility]) Body mass index [BMI] 50.0-59.9, adult (Z68.43) Type 2 diabetes mellitus with foot ulcer, with long-term current use of insulin ([facility]) 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.49) Status post amputation of lesser toe, unspecified laterality ([facility]) Arthritis of left foot Acquired hallux valgus of left foot Type 2 diabetes mellitus with hyperglycemia, with long-term current use of insulin ([facility]) Morbid obesity ([facility]) Morbid obesity documented in this encounter [facility] HealthcareEvaluation noteNo assessment information availableDayton Osteopathic [facility] Work Phone: Evaluation note* Diagnosis Onset Date Resolution Status BMI 50.0-59.9, adult acute Dietary counseling and surveillance acute Hypertension acute Mixed hyperlipidemia acute Type 2 diabetes mellitus with hyperglycemia [facility] Work Phone: Evaluation note* Diagnosis Onset Date Resolution Status BMI 50.0-59.9, adult acute Dietary counseling and surveillance acute Hypertension acute Mixed hyperlipidemia acute Type 2 diabetes mellitus with hyperglycemia acute Wound of left foot acute Wound of right foot acute [facility] Work Phone: Evaluation note* Diagnosis Pure hyperglyceridemia ([facility]) Pure hyperglyceridemia documented in this encounter 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, subsequent encounter ([facility]) Dyslipidemia ([facility]) Other and unspecified hyperlipidemia Hypertriglyceridemia ([facility]) Pure hyperglyceridemia Poorly controlled diabetes mellitus ([facility]) Type II or unspecified type diabetes mellitus without mention of complication, not stated as uncontrolled Type 2 diabetes mellitus with hyperglycemia, with long-term current use of insulin ([facility]) Diabetic autonomic neuropathy associated with type 2 diabetes mellitus ([facility]) Type II or unspecified type diabetes mellitus with neurological manifestations, not stated as uncontrolled Acquired hallux valgus, unspecified laterality Morbid obesity ([facility]) Morbid obesity Vitamin B 12 deficiency Other B-complex deficiencies 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[facility]) Lipoprotein deficiencies documented in this [...] Reason for Visit Chief Complaint Dm DM Chief Complaint Admit Date Unknown April 26, 2024 10:32am refered by Dr feldman June 14 2:39pm Additional Source Comments (unrecognized sect ion and content) No Status Records FoundNo Status Records FoundNo Status Records FoundNo Status Records Found INFORMATION SOURCE (unrecogn ized section and content) DATE CREATED AUTHOR 08/27/2021 [facility] dical Specialist DATE CREATED AUTHOR AUTHOR'S ORGANIZ ATION 10[facility]17[facility]2022 [facility] DATE CREATED AUTHOR AUTHOR'S ORGANIZ ATION 04/22/2024 [facility] dical Specialists EPIC DATE CREATED AUTHOR AUTHOR'S ORGANIZ ATION 04/29/2024 [facility] REASON FOR VISIT (unrecogniz ed [...] Hernandez MD Primary Care Provider Active Start: April 26, 2024 End: April 26, 2024 Natanael Feldman DPM MS Attending Provider Active Start: April 26, 2024 End: April 26, 2024 Team Status: Inactive Member Role Status Sarahi Hernandez MD Primary Care Provider Active Start: June 14, 2024 End: June 14, 2024 Jun Nolasco MD Attending Provider Active Sta rt: June 14, 2024 End: June 14, 2024 Team Status: Active Member Role Status Sarahi [...] January 26, 2024 End: January 26, 2024 Audio/Visual Manager Relationship Specialty Start Date End Date Natalie Hernandez MD [address] [place] [address] PCP - General Family Medicine 09/15/22 Audio/Visual Manager Relationship Specialty Start Date End Date Natalie Hernandez MD [address] [place] [address] PCP - General Family Medicine 09/15/22 Team Status: Inactive Member Role Status Sarahi Ortega APRN Attending Provider Active Start: June 09, 2023 End: June 09, 2023 Team Status: Inactive Member Role Status Sarahi Claros MD Attending Provider Active Start: June 09, 2023 End: June 09, 2023 Natalie Hernandez MD Primary Care Provider Active Start: June 09, 2023 End: June 09, 2023 Team Status: Inactive Member Role Status Sarahi Hernandez MD Primary Care Provider Active Start: October 19, 2023 End: October 19, 2023 Link Ortega APRN Attending Provider Active Start: October 19, 2023 End: October 19, 2023 Audio/Visual Manager Relationship Specialty Start Date End Date Natalie Hernandez MD [address] [place] [address] PCP - General Family Medicine 09/15/22 Blossom Cody NP [address] [place] [address] Nurse Practitioner Family Medicine 01/19/24 Audio/Visual Manager Relationship Specialty Start Date End Date Natalie Hernandez MD [address] [place] [address] PCP - General Family Medicine 09/15/22 Blossom Cody NP [address] [place] [address] Nurse Practitioner Family Medicine 01/19/24 Audio/Visual Manager Relationship Specialty Start Date End Date Natalie Hernandez MD [address] [place] [address] PCP - General Family Medicine 09/15/22 Blossom Cody NP [address] [place] [address] Nurse Practitioner Family Medicine 01/19/24 Audio/Visual Manager Relationship Specialty Start Date End Date Natalie Hernandez MD [address] [place] [address] PCP - General Family Medicine 09/15/22 Blossom Cody NP [address] [place] [address] Nurse Practitioner Family Medicine 01/19/24 Audio/Visual Manager Relationship Specialty Start Date End Date Natalie Hernandez MD [address] [facility] [place] [address] PCP - General Family Medicine 09/15/22 Audio/Visual Manager Relationship Specialty Start Date End Date Natalie Hernandez MD [address] [facility] [place] [address] PCP - General Family Medicine 09/15/22 Audio/Visual Manager Relationship Specialty Start Date End Date Natalie Hernandez MD [address] [facility] [place] [address] PCP - General Family Medicine 09/15/22 Blossom Cody NP [address] [facility] [place] [address] Nurse Practitioner Family Medicine 01/19/24 Audio/Visual Manager Relationship Specialty Start Date End Date Natalie Hernandez MD [address] [facility] [place] [address] PCP - General Family Medicine 09/15/22 Blossom Cody NP [address] [facility] [place] [address] Nurse Practitioner Family Medicine 01/19/24 Team Status: Inactive Member Role Status Dates Natalie Hernandez MD Primary Care Provider Active Start: April 26, 2024 End: April 26, 2024 Natanael Feldman DPM MS Attending Provider Active Start: April 26, 2024 End: April 26, 2024 Team Status: Inactive Member Role Status Dates Natalie Hernandez MD Primary Care Provider Active Start: June 14, 2024 End: June 14, 2024 Jun Nolasco MD Attending Provider Active Sta rt: June 14, 2024 End: June 14, 2024 Goals (unrecognized section and content) Goals [...] BE BASED ON THE PRIMARY CLINICAL RECORDS. [facility]. provides no warranty or guarantee of the accuracy or completeness of information in this document.
== END 2024-07-11 15:38 | disposition home or self-care (01) ==
LOC: WC 15:38
PROVIDERS: PCP Family Medicine; Visit Provider Physician Assistant
DX: E11.621 Type 2 diabetes mellitus with foot ulcer (principal); L97.412 Non-pressure chronic ulcer of right heel and midfoot with fat layer exposed
CPT/HCPCS: 29445

== ENCOUNTER 2024-07-18 16:11 | Outpatient (OUT) | payer OTHER, SELFPAY ==
--- OUTSIDE RECORDS SUMMARY | 2024-07-18 16:22 | XMS_ITS | CCD ---
Author Organization [facility] CliniSyme Care Team Providers Care Electrical Engineering Draftsperson Name Role Phone Link Ortega Unavailable NATANAEL [...] Care Provider MD Damon Claros Attending Provider [phone] MD Natalie Hernandez [facility] Care Provider Natalie Hernandez MD Primary Care Provider Glo REINFORCED STEEL PLACING SUPERVISOR, Blossom Kong Unavailable [phone] GLO, BLOSSOM Kong Attending Unavailable GLO, BLOSSOM A Attending Unavailable RUSHER, MIRLANDE S Attending Unavailable RUSHER, MIRLANDE S Attending Unavailable GLO, BLOSSOM A Attending Unavailable RUSHER, MIRLANDE S Attending Unavailable RUSHER, MIRLANDE S Attending Unavailable GLO, BLOSSOM A Attending Unavailable GLO, BLOSSOM Kong Attending Unavailable Wonderly, [facility] Primary Care Unavailable Francia, Natanael Marks Admitting Unavailable Francia, Natanael Marks Attending Unavailable Wondersara, [facility] Care Unavailable Damon Claros Admitting Unavailable Damon Claros Attending Unavailable Shelby AVALOS [facility] Provider Natanael Feldman DPM Attending Provider [phone] Medications Current Medications Medication Drug Class(es) Dates [...] sources) Long-term current use of insulin; Translations: [buttermaker helper (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] 06-17-2023 Episodic Other aftercare (4 sources) USP (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 Onset: 01-06-2022 Resolved: [...] Test Name Value Interpretation Reference Range Facility [facility] 04-26-2024 L Specimen: [id number] Received: 04/26/24 Status: CALEB Gabriel Num: [id number] Spec Type: Surgical Subm Dr: Natanael Feldman,[place]AR[place], [place] Tissues: A Skin-Other than Cyst, tag, debridement or plastic repair (RT FOOT ULCER) Procedures: TYLER Gross/Mary L4 Age/ Patient Sex Location Account Attending Physician RamaTrev Kierra 43/M LABELL [id number] Natanael Feldman DPM, MS SPEC NUM: [id number] RECD: 04/26/24 STATUS: CALEB GABRIEL NUM: [id number] MARTHA: 04/26/[address] [facility] [address]: Natanael Feldman DPM, [place] ENTERED: 04/26/[address]: Anju,Lab SPEC TYPE: Surgical DEPT: DERRICK PLUNKETT ENTERED BY: [id number] RECV BY: [id number] ORDERED: HE, Gross/Micro L4 ORDERED: HE, Gross/Micro [...] reveal purple-brown to green, softened cut surfaces. Solar Field Installation Crew Member sections are submitted in a single cassette. (1, , [id number] A) CPT Codes 25096 Specimen: [id number] Received: 04/26/24-1403 Status: CALEB Gabriel Num: [id number] Spec Type: Surgical Subm Dr: Natanael Feldman DPM, MS Tissues: A Skin-Other than Cyst, tag, debridement or plastic repair (RT FOOT ULCER) Procedures: Yenny SCOTT/Mary L4 Patient: Trev Ontiveros [id number] (Continued) Signed (signature on file) Melanie Roca MD 04/27/24 [id number] Normal [facility] A1C HEMOGLOBINon 06-09-2023 HbA1c (Bld) [Mass fraction] 8.2 % [facility] Other Glucose - FINGER STICKon Glucose [Mass/Vol] 170 mg/dL [facility] Other HbA1c (Bld) [Mass fraction]o n 06-09-2023 A1C HEMOGLOBIN [facility] Other A1C HEMOGLOBINon 01-04-2023 HbA1c (Bld) [Mass fraction] 8.9 % [employer] [facility] [employer] Other Glucose - FINGER STICKon Glucose [Mass/Vol] 201 mg/dL [facility] Other HbA1c (Bld) [Mass fraction]o n 01-04-2023 A1C HEMOGLOBIN [facility] [employer] Other PROF CHEM 8 (BAS METB)on Anion gap [Moles/Vol] 14.3 mmol/L Normal [facility] Comment on above: Performed By: #### B MP #### [facility] [address] [place] [address] Dr. Lauri Todd Calcium [Mass/Vol] 9.4 mg/dL Normal 8.5-10.1 [facility] Comment on above: Performed By: #### B MP #### [facility] [address] [address] [address] Lauri Todd Chloride [Moles/Vol] 101 mmol/L Normal 98-107 [facility] Comment on above: Performed By: #### B MP #### [facility] [address] [address] [address] Lauri Todd CO2 [Moles/Vol] 26.2 mmol/L Normal 21.0-32.0 [facility] Comment on above: Performed By: #### B MP #### [facility] [address] [address] [address] Lauri Todd Creatinine [Mass/Vol] 0.90 mg/dL Normal 0.70-1.30 [facility] Comment on above: Performed By: #### B MP #### [facility] [address] [address] [address] Lauri Todd EGFR-AF ALGERIAN >60 Normal >=60 [facility] Comment on above: Performed By: #### B MP #### [facility] [address] [address] [address] Lauri Todd EGFR-NON AF ALGERIAN >60 Normal >=60 [facility] Comment on above: Performed By: #### B MP #### [facility] [address] [place], [place] [address] Dr. Lauri Todd Glucose [Mass/Vol] 146 mg/dL Critically high 74-106 [facility] Comment on above: Performed By: #### B MP #### [facility] [address] [place], [place] [address] Dr. Lauri Todd Potassium [Moles/Vol] 4.5 mmol/L Normal 3.5-5.1 [facility] Comment on above: Performed By: #### B MP #### [facility] [address] [address] [address] Lauri Todd Sodium [Moles/Vol] 137 mmol/L Normal 136-145 [facility] Comment on above: Performed By: #### B MP #### [facility] [address] [address] [address] Lauri Todd Urea nitrogen [Mass/Vol] 16.0 mg/dL Normal 7.0-18.0 [facility] Comment on above: Performed By: #### B MP #### [facility] [address] [address] [address] Lauri Todd Urea nitrogen/Creatinin e [Mass ratio] 17.8 mg/mg Normal [facility] Comment on above: Performed By: #### B MP #### [facility] [address] [place], [place] [address] Dr. Lauri Todd A1C HEMOGLOBINon 06-25-2022 HbA1c (Bld) [Mass fraction] 8.2 % [employer] [facility] [employer] Other Glucose - FINGER STICKon Glucose [Mass/Vol] 180 mg/dL [facility] Other HbA1c (Bld) [Mass fraction]o n 06-25-2022 A1C HEMOGLOBIN [facility] [employer] Other XR FOOT LT MIN 3 VIEWSon [...] by: RAFAEL WHITAKER Date: 2022-05-25 11:52 Normal [facility] A1C HEMOGLOBINon 01-06-2022 HbA1c (Bld) [Mass fraction] 7 % [facility] Other Glucose - FINGER STICKon Glucose [Mass/Vol] 148 mg/dL [facility] Other HbA1c (Bld) [Mass fraction]o n 01-06-2022 A1C HEMOGLOBIN [facility] Other Basic Metabolic Panelon 04- Anion gap [Moles/Vol] 20 mmol/L Normal 12-20 [facility] Comment on above: Result Comment: Effe ctive 05/15/2019 reference range changed. Performed By: #### B MP #### [facility] [address] [place], [place] [id number] Calcium [Mass/Vol] 10.0 mg/dL Normal 8.6-10.2 [facility] Comment on above: Performed By: #### B MP #### [facility] [address], [place] [id number] Chloride [Moles/Vol] 100 mmol/L Normal 98-107 [facility] Comment on above: Performed By: #### B MP #### [facility] [address], [place] [id number] CO2 [Moles/Vol] 22 mmol/L Normal 20-31 [facility] Comment on above: Performed By: #### B MP #### [facility] [address], [place] [id number] Creatinine [Mass/Vol] 0.8 mg/dL Normal 0.7-1.4 [facility] Comment on above: Performed By: #### B MP #### [facility] [address], [place] [id number] eGFRAA 129 mL/min/1.73m2 Normal >60 [facility] Comment on above: Performed By: #### B MP #### [facility] [address], [place] [id number] eGFRNAA 107 mL/min/1.73m2 Normal >60 [facility] Comment on above: Performed By: #### B MP #### [facility] [address], [place] [id number] Glucose [Mass/Vol] 140 mg/dL High 65-99 [facility] Comment on above: Result Comment: For FASTING Glucose --- ADA reference ranges: Normal 65-99 mg/dl Prediabetes 100-125 Diabetes >/= 126 Performed By: #### B MP #### [facility] [address], [place] [id number] Potassium [Moles/Vol] 4.3 mmol/L Normal 3.5-5.5 [facility] Comment on above: Performed By: #### B MP #### [facility] [address] [place], [place] [id number] Sodium [Moles/Vol] 137 mmol/L Normal 135-146 [facility] Comment on above: Performed By: #### B MP #### [facility] [address] [place], [place] [id number] Urea nitrogen [Mass/Vol] 17 mg/dL Normal 7-25 [facility] Comment on above: Performed By: #### B MP #### [facility] [address], [place] [id number] Vital Signs Date Time Vital Sign Value Performing Clinician Facility 06-14-2024 14:55-0500 Body height 182.88 cm Natalie Hernandez MD Work Phone: [facility] 06-14-2024 14:55-0500 Body mass index (BMI) [Ratio] 48.8 kg/m2 Natalie Hernandez MD Work Phone: [facility] 06-14-2024 14:55-0500 Body temperature 98.1 [degF] Natalie Hernandez MD Work Phone: [facility] 06-14-2024 14:55-0500 Body weight 163.29 kg Natalie Hernandez MD Work Phone: [facility] 06-14-2024 14:55-0500 Diastolic blood pressure 75 mm[Hg] Natalie Hernandez MD Work Phone: [facility] 06-14-2024 14:55-0500 Heart rate 104 /min Natalie Hernandez MD Work Phone: [facility] 06-14-2024 14:55-0500 Systolic blood pressure 124 mm[Hg] Natalie Hernandez MD Work Phone: [facility] 04-19-2024 09:47-0500 Body mass index (BMI) [Ratio] 52.21 kg/m2 Blossom Lozoyael REINFORCED STEEL PLACING SUPERVISOR Work Phone: [facility] 04-19-2024 09:47-0500 Body weight 172.19 kg Blossom Glo REINFORCED STEEL PLACING SUPERVISOR Work Phone: [facility] 04-19-2024 09:47-0500 Diastolic blood pressure 72 mm[Hg] Blossom Glo REINFORCED STEEL PLACING SUPERVISOR Work Phone: [facility] 04-19-2024 09:47-0500 Heart rate 84 /min Blossom Glo REINFORCED STEEL PLACING SUPERVISOR Work Phone: [facility] 04-19-2024 09:47-0500 Systolic blood pressure 128 mm[Hg] Blossom Glo REINFORCED STEEL PLACING SUPERVISOR Work Phone: [facility] 01-26-2024 09:59-0400 Body height 182.88 cm [facility] 01-26-2024 09:59-0400 Body mass index (BMI) [Ratio] 51.2 kg/m2 [facility] 01-26-2024 09:59-0400 Body weight 171.54 kg [facility] 01-26-2024 09:59-0400 Diastolic blood pressure 83 mm[Hg] [facility] 01-26-2024 09:59-0400 Heart rate 81 /min [facility] 01-26-2024 09:59-0400 Respiratory rate 18 /min [facility] 01-26-2024 09:59-0400 SaO2% (BldA) [Mass fraction] 94 % [facility] 01-26-2024 09:59-0400 Systolic blood pressure 155 mm[Hg] [facility] 01-19-2024 11:00-0400 Body mass index (BMI) [Ratio] 51.82 kg/m2 Blossom Cody REINFORCED STEEL PLACING SUPERVISOR Work Phone: [facility] 01-19-2024 11:00-0400 Body weight 170.91 kg Blossom Cody REINFORCED STEEL PLACING SUPERVISOR Work Phone: [facility] 01-19-2024 11:00-0400 Diastolic blood pressure 78 mm[Hg] Blossom Lozoyael REINFORCED STEEL PLACING SUPERVISOR Work Phone: [facility] 01-19-2024 11:00-0400 Heart rate 84 /min Blossom Cody REINFORCED STEEL PLACING SUPERVISOR Work Phone: [facility] 01-19-2024 11:00-0400 Systolic blood pressure 136 mm[Hg] Blossom Lozoyael REINFORCED STEEL PLACING SUPERVISOR Work Phone: [facility] 10-19-2023 11:31-0400 Body height 182.88 cm [facility] 10-19-2023 11:31-0400 Body mass index (BMI) [Ratio] 51.7 kg/m2 [facility] 10-19-2023 11:31-0400 Body weight 172.87 kg [facility] 10-19-2023 11:31-0400 Diastolic blood pressure 83 mm[Hg] [facility] 10-19-2023 11:31-0400 Heart rate 74 /min [facility] 10-19-2023 11:31-0400 Respiratory rate 18 /min [facility] 10-19-2023 11:31-0400 SaO2% (BldA) [Mass fraction] 97 % [facility] 10-19-2023 11:31-0400 Systolic blood pressure 149 mm[Hg] [facility] 06-16-2023 11:33-0500 Diastolic blood pressure 84 mm[Hg] Blossom Cody REINFORCED STEEL PLACING SUPERVISOR Work Phone: [facility] 06-16-2023 11:33-0500 Systolic blood pressure 154 mm[Hg] Blossom Lozoyael REINFORCED STEEL PLACING SUPERVISOR Work Phone: [facility] 06-16-2023 11:02-0500 Body mass index (BMI) [Ratio] 52.12 kg/m2 Blossom Glo REINFORCED STEEL PLACING SUPERVISOR Work Phone: [facility] 06-16-2023 11:02-0500 Body weight 171.91 kg Blossom Lozoyael REINFORCED STEEL PLACING SUPERVISOR Work Phone: [facility] 06-16-2023 11:02-0500 Heart rate 92 /min Blossom Lozoyael REINFORCED STEEL PLACING SUPERVISOR Work Phone: [facility] 06-09-2023 08:45-0500 Body height [employer] Other [employer] [facility] [employer] Other 06-09-2023 08:45-0500 Body height 182.88 cm MD Natalie Hernandez Work Phone: [facility] 06-09-2023 08:45-0500 Body mass index (BMI) [Ratio] 51.33 kg/m2 Tondra Mapus Other [employer] [facility] [employer] Other 06-09-2023 08:45-0500 Body weight 171.69 kg Tondra Mapus Other [employer] [facility] [employer] Other 06-09-2023 08:45-0500 Body weight 171.68 kg MD Natalie Hernandez Work Phone: [facility] 06-09-2023 08:45-0500 Diastolic blood pressure 80 mm[Hg] Tondra Mapus Other [facility] 06-09-2023 08:45-0500 Respiratory rate 18 /min Tondra Mapus Other [place] [facility] [employer] Other 06-09-2023 08:45-0500 SaO2% (BldA) [Mass fraction] 94 % Tondra Mapus Other [facility] [employer] Other 06-09-2023 08:45-0500 Systolic blood pressure 148 mm[Hg] Tondra Mapus Other [facility] 01-04-2023 08:45-0400 Body height Tondra Mapus Other [place] [facility] [employer] Other 01-04-2023 08:45-0400 Body mass index (BMI) [Ratio] 51.37 kg/m2 Tondra Mapus Other [place] [facility] [employer] Other 01-04-2023 08:45-0400 Body weight 171.82 kg Tondra Mapus Other [facility] Other 01-04-2023 08:45-0400 Diastolic blood pressure 85 mm[Hg] Tondra Mapus Other [employer] Other 01-04-2023 08:45-0400 Respiratory rate 18 /min Tondra Mapus Other [employer] Other 01-04-2023 08:45-0400 SaO2% (BldA) [Mass fraction] 98 % Tondra Mapus Other [employer] Other 01-04-2023 08:45-0400 Systolic blood pressure 150 mm[Hg] Tondra Mapus Other [facility] Other 06-25-2022 09:45-0500 Body height Tondra Mapus Other [employer] Other 06-25-2022 09:45-0500 Body mass index (BMI) [Ratio] 51.14 kg/m2 Tondra Mapus Other [employer] Other 06-25-2022 09:45-0500 Body weight 171.05 kg Tondra Mapus Other [facility] Other 06-25-2022 09:45-0500 Diastolic blood pressure 80 mm[Hg] Tondra Mapus Other [facility] Other 06-25-2022 09:45-0500 Respiratory rate 18 /min Tondra Mapus Other [facility] Other 06-25-2022 09:45-0500 SaO2% (BldA) [Mass fraction] 95 % Tondra Mapus Other [facility] Other 06-25-2022 09:45-0500 Systolic blood pressure 139 mm[Hg] Tondra Mapus Other [facility] Other 01-06-2022 09:45-0400 Body height Tondra Mapus Other [employer] Other 01-06-2022 09:45-0400 Body mass index (BMI) [Ratio] 48.28 kg/m2 Tondra Mapus Other [facility] Other 01-06-2022 09:45-0400 Body weight 161.48 kg Tondra Mapus Other [employer] Other 01-06-2022 09:45-0400 Diastolic blood pressure 71 mm[Hg] Tondra Mapus Other [facility] Other 01-06-2022 09:45-0400 Respiratory rate 20 /min Tondra Mapus Other [facility] Other 01-06-2022 09:45-0400 SaO2% (BldA) [Mass fraction] 95 % Tondra Mapus Other [facility] Other 01-06-2022 09:45-0400 Systolic blood pressure 124 mm[Hg] Tondra Mapus Other [facility] Other Encounters Encounter Date Encounter Type Care Provider Facility Start: 06-14-2024 End: 06-14-2024 ambulatory Natalie Hernandez MD Work Phone: [facility] Work Phone: Start: 06-14-2024 End: 06-14-2024 Patient encounter procedure Natalie Hernandez MD Work Phone: [facility] Work Phone: Start: 05-30-2024 [...] Start: 04-26-2024 End: 04-26-2024 ambulatory Natalie Hernandez Facility:[facility] Start: 04-26-2024 End: 04-26-2024 Departed Referred Natalie Hernandez MD Work Phone: [facility] Start: 04-25-2024 End: 04-27-2024 Clinisync Result Encounter Generic External Data Provider [facility] External Department Unsolicited Start: 04-25-2024 End: 04-27-2024 Clinisync Result Encounter Generic External Data Provider [facility] External Department Unsolicited Start: 04-19-2024 End: 04-19-2024 Bamboo flowsheet Blossom Cody REINFORCED STEEL PLACING SUPERVISOR Work Phone: [facility] Start: 04-19-2024 End: 04-19-2024 Bamboo flowsheet Blossom Cody REINFORCED STEEL PLACING SUPERVISOR Work Phone: [facility] Start: 04-19-2024 End: 04-19-2024 Patient encounter status Blossom Cody NP Work Phone: [facility] Start: 04-19-2024 End: 04-19-2024 Periodic preventive med est patient 40-64yrs Blossom Cody REINFORCED STEEL PLACING SUPERVISOR Work Phone: [facility] Comment on [...] neuropathy associated with type 2 diabetes mellitus ([facility]); Acquired hallux valgus, unspecified laterality; Morbid obesity ([facility]); Vitamin B 12 deficiency; 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 Work Phone: Start: 01-20-2024 Non-patient / Non-visit [facility] Work Phone: Start: 01-19-2024 End: 01-19-2024 Bamboo flowsheet Blossom Cody REINFORCED STEEL PLACING SUPERVISOR Work Phone: [facility] Start: 01-19-2024 End: 01-19-2024 Bamboo flowsheet Blossom Cody REINFORCED STEEL PLACING SUPERVISOR Work Phone: [facility] Start: 01-19-2024 End: 01-19-2024 Office outpatient visit 25 minutes Blossom Cody NP Work Phone: [facility] Comment on above: Diabetic polyneuropa thy associated with type 2 diabetes mellitus ([facility]) (Primary Dx); Type 2 diabetes mellitus with neurological manifestation ([facility]); Essential hypertension; 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, subsequent encounter ([facility]); Type 2 diabetes mellitus with hyperglycemia, with long-term current use of insulin ([facility]); Dyslipidemia ([facility]); Hypertriglyceridemia ([facility]); Amputation of toe, traumatic, left, sequela ([facility]); Vitamin B 12 deficiency; Pure hyperglyceridemia ([facility]/HCC) Start: 01-19-2024 End: 01-19-2024 ambulatory BLOSSOM A GLO Not Available Start: 12-30-2023 End: 12-30-2023 Lenard Hernandez MD Work Phone: [facility] Comment on above: Essential hypertensi on Start: 10-29-2023 End: 10-29-2023 ambulatory MIRLANDE S RUSHER Not Available Start: 10-19-2023 End: 10-19-2023 ambulatory [facility] Work Phone: Start: 10-19-2023 End: 10-19-2023 Patient encounter procedure [facility] Work Phone: Start: 10-12-2023 End: 10-12-2023 ambulatory MIRLANDE S RUSHER Not Available Start: 09-15-2023 End: 09-15-2023 ambulatory BLOSSOM A GLO Not Available Start: 09-06-2023 End: 09-06-2023 ambulatory MIRLANDE S RUSHER Not Available Start: 08-02-2023 End: 08-02-2023 ambulatory MIRLANDE S RUSHER Not Available Start: 07-07-2023 End: 07-07-2023 ambulatory BLOSSOM A GLO Not Available Start: 06-16-2023 Bamboo flowsheet Blossom cabrales REINFORCED STEEL PLACING SUPERVISOR Work Phone: [facility] Start: 06-16-2023 Bamboo flowsheet Blossom cabrales REINFORCED STEEL PLACING SUPERVISOR Work Phone: [facility] Start: 06-16-2023 End: 06-16-2023 Office outpatient visit 25 minutes Blossom Cody REIN[employer]CED STEEL PLACING SUPERVISOR Work Phone: [facility] Comment on above: Diabetic polyneuropa thy associated with type 2 diabetes mellitus (CMS/HCC) (Primary Dx); Diabetic neuropathic arthropathy (CMS/HCC); 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); 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, sequela (CMS/HCC); Ulcer of foot due to type 2 diabetes mellitus (CMS/HCC); Vitamin B 12 deficiency; Hx of diabetic neuropathy; 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); Hypertriglyceridemia ([facility]); 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, 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); Essential hypertension; Nasal congestion; Type 2 diabetes mellitus with diabetic autonomic neuropathy, with long-term current use of insulin (CMS/HCC); buttermaker helper (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 (Z79.4); Acquired absence of other toe(s), unspecified side (Z89.429); Type 2 diabetes mellitus with diabetic neuropathy, with long-term current use of insulin ([facility]); Body mass index [BMI] 50.0-59.9, adult (Z68.43); Type 2 diabetes mellitus with foot ulcer, with long-term current use of insulin ([facility]); 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.49); Status post amputation of lesser toe, unspecified laterality ([facility]); Arthritis of left foot; Acquired hallux valgus of left foot; Type 2 diabetes mellitus with hyperglycemia, with long-term current use of insulin ([facility]); Morbid obesity ([facility]) Start: 06-16-2023 End: 06-16-2023 ambulatory BLOSSOM CODY Not Available Start: 06-15-2023 End: 06-15-2023 ambulatory Link Ortega Other [facility] Other Start: 06-15-2023 Telephone encounter Link Ortega [facility] Start: 06-09-2023 (DM) Diabetes Link Ortega [facility] Start: 06-09-2023 End: 06-09-2023 Discharged Recurring MD Natalie Hernandez Work Phone: [facility] Work Phone: Start: 06-09-2023 End: 06-09-2023 ambulatory MD Natalie Hernandez Work Phone: [facility] Other Start: 06-09-2023 End: 06-09-2023 Patient encounter procedure MD Natalie Hernandez Work Phone: [facility]- Start: 01-04-2023 (DM) Diabetes Tondra Mapus [facility] Start: 01-04-2023 End: 01-04-2023 ambulatory Tondra Mapus Other [facility] Other Start: 12-21-2022 End: 12-21-2022 ambulatory Tondra Mapus Other [facility] Other Start: 12-21-2022 Telephone encounter Tondra Mapus [facility] Start: 10-12-2022 ambulatory NATANAEL [facility] Faci lity:H1 Start: 10-06-2022 End: 10-07-2022 ambulatory NATANAEL [facility] Facility:H1 Start: 10-01-2022 Encounter for prepro cedural cardiovascular examination [facility] Start: 10-01-2022 Encounter for prepro cedural laboratory examination [facility] Start: 09-30-2022 End: 10-01-2022 ambulatory [facility] Facility:H1 Start: 09-30-2022 End: 10-01-2022 Encounter for preprocedural laboratory examination [facility] Facility:H1 Start: 09-15-2022 End: 09-16-2022 ambulatory NATANAEL Marks [facility] Facility:H1 Start: 09-10-2022 End: 09-10-2022 ambulatory Tondra Mapus Other [facility] Other Start: 09-10-2022 Telephone encounter Tondra Mapus [facility] Start: 08-24-2022 End: 08-25-2022 ambulatory NATANAEL Selina [facility] Facility:H1 Start: 08-10-2022 End: 08-10-2022 ambulatory Tondra Mapus Other [facility] Other Start: 08-10-2022 Telephone encounter Tondra Mapus [facility] Start: 08-03-2022 End: 08-04-[address] NATALIE HERNANDEZ Facility:H1 Start: 07-13-2022 End: 07-14-2022 ambulatory MARTELL NAVAS Facility:H1 Start: 06-30-2022 End: 07-01-2022 ambulatory PETER D HIGHLANDER Facility:H1 Start: 06-25-2022 (DM) Diabetes Tondra Shannon [facility] Start: 06-25-2022 End: 06-25-2022 ambulatory Tondra Mapus Other [facility] Other Start: 06-16-2022 End: 06-17-2022 ambulatory PETER [...] 02-18-2022 End: 02-18-2022 ambulatory Tondra Mapus Other [facility] Other Start: 02-18-2022 Telephone encounter Tondra Dayannaus [facility] Start: 02-09-2022 End: 02-10-2022 ambulatory PETER D HIGHLANDER Facility:H1 Start: 01-26-2022 End: 01-27-2022 ambulatory PETER D HIGHLANDER Facility:H1 Start: 01-13-2022 End: 01-14-2022 ambulatory PETER D HIGHLANDER Facility:H1 Start: 01-06-2022 (DM) Diabetes Tondra Mapus [facility] Start: 01-06-2022 End: 01-06-2022 ambulatory Tondra Mapus Other [place] [facility] Other Start: 12-29-2021 End: 12-30-2021 ambulatory PETER [...] HIGHLANDER Facility:H1 Start: 10-21-2021 End: 10-22-2021 ambulatory [facility] Facility:H1 Start: 10-20-2021 End: 10-21-2021 ambulatory [facility] Facility:H1 Procedures Date Procedure Procedure Detail [...] post amputation of lesser toe, unspecified laterality ([facility]) Blossom Cody NP Work Phone: Plan of Treatment Date Care Activity Detail Author Start: 07-26-2025 Glaucoma screening Diabetes: Retinopathy Screening [facility] Start: 07-19-2024 End: 07-19-2024 Patient encounter procedure 07/19/2024 9:30 AM EDT Office Visit [facility] [address] [place] [id number] Blossom Cody NP [address] [place] [address] [facility] Start: 04-26-2024 Hemoglobin A1c measurement Diabetes: Hemoglobin A1C [facility] Start: 04-19-2024 End: 04-19-2024 Patient encounter procedure [facility] Comment on above: Diabetic polyneuropathy associated with type 2 diabetes mellitus ([facility]) (Primary Dx); Wellness examination; Type 2 diabetes mellitus with neurological manifestation ([facility]); Essential hypertension; 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, subsequent encounter ([facility]); Dyslipidemia (CMS/HCC); Hypertriglyceridemia (CMS/HCC); Poorly controlled diabetes mellitus (CMS/HCC); Type 2 diabetes mellitus with hyperglycemia, with long-term current use of insulin ([facility]); Amputation of toe, traumatic, left, sequela ([facility]) Start: 03-24-2024 Urine screening for protein Diabetes: Urine Protein Screening [facility] Start: 03-15-2024 Influenza vaccination Influenza Vaccine (#1) [facility] Comment on above: Postponed from 01/09/2024 (Patient Refus ed) Start: 01-25-2024 End: 01-25-2024 Patient encounter procedure 01/25/2024 10:30 AM EDT Office Visit [facility] [address] [place] [phone] Blossom Cody NP [address] [place] [address] [facility] Start: 01-19-2024 Hemoglobin A1c measurement Diabetes: Hemoglobin A1C [facility] Start: 01-19-2024 End: 01-19-2024 Patient encounter procedure 01/19/2024 11:00 AM EDT Office Visit [facility] [address] [place] [phone] Blossom Cody NP [address] [place] [address] Diabetic polyneuropathy associated with type 2 diabetes mellitus ([facility]/HCC) (Primary Dx); Type 2 diabetes mellitus with neurological manifestation ([facility]/HCC); Essential hypertension; 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, subsequent encounter ([facility]); Type 2 diabetes mellitus with hyperglycemia, with long-term current use of insulin ([facility]/HCC); Dyslipidemia (CMS/HCC); Hypertriglyceridemia (CMS/HCC); Amputation of toe, traumatic, left, sequela ([facility]/HCC); Vitamin B 12 deficiency [facility] Comment on above: Diabetic polyneuropathy associated with type 2 diabetes mellitus ([facility]/HCC) (Primary Dx); 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); Essential hypertension; 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, subsequent encounter ([facility]/HCC); Type 2 diabetes mellitus with hyperglycemia, with long-term current use of insulin (CMS/HCC); Dyslipidemia (CMS/HCC); Hypertriglyceridemia (CMS/HCC); Amputation of toe, traumatic, left, sequela (CMS/HCC); Vitamin B 12 deficiency Start: 01-09-2024 Influenza vaccination Influenza Vaccine (#1) [facility] Start: 09-15-2023 End: 09-15-2023 Patient encounter procedure 09/15/2023 9:30 AM EDT Office Visit [facility] [address] [place] [address] Blossom Cody NP [address] [place] [address] [facility] Start: 09-07-2023 Hemoglobin A1c measurement Diabetes: Hemoglobin A1C [facility] Start: 07-26-2023 Glaucoma screening Diabetes: Retinopathy Screening [facility] Start: 07-07-2023 End: 07-07-2023 Patient encounter procedure 07/07/2023 9:00 AM EST Office Visit [facility] [address] [place] [address] [facility] Start: 06-16-2023 End: 06-16-2023 Patient encounter procedure 06/16/2023 11:00 AM EST Office Visit [facility] [address] [place] [address] Blossom Cody NP [address] 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, sequela ([facility]); Ulcer of foot due to type 2 diabetes mellitus ([facility]); Poorly controlled diabetes mellitus ([facility]); Type 2 diabetes mellitus with hyperglycemia, with long-term current use of insulin ([facility]); Vitamin B 12 deficiency; Hx of diabetic neuropathy; 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[facility]); Morbid obesity ([facility]); Hypertriglyceridemia ([facility]) AEROBIC CULTURE AEROBIC CULTURE Lab Routine 05/26/2024 6:16 PM [facility] BLOOD CULTURE 1 BLOOD CULTURE 1 Lab Routine 04/27/2024 6:10 AM [facility] BLOOD CULTURE 2 BLOOD CULTURE 2 Lab Routine 04/25/2024 1:00 PM [facility] BLOOD CULTURE 2 BLOOD CULTURE 2 Lab Routine 04/27/2024 6:24 AM [facility] BLOOD CULTURE 2 BLOOD CULTURE 2 Lab Routine 05/30/2024 12:28 PM [facility] Comprehensive metabo lic 2000 panel - Serum or Plasma [facility] Patient Education Diabetes and diet [facility] Work Phone: [facility] Immunizations Immunization Date Immunization Notes Care Provider [facility] 03-14-2024 influenza, seasonal, injectable, preservative free Blossom Cody NP Work Phone: [facility] 03-14-2024 influenza virus vacc ine, unspecified formulation Blossom Cody [employer] Work Phone: [facility] 07-05-2023 tetanus and diphther ia toxoids, adsorbed, preservative free, for adult use (2 Lf of tetanus toxoid and 2 Lf of diphtheria toxoid) Natalie Hernandez MD Work Phone: [facility] 03-24-2023 influenza, injectabl e, quadrivalent, preservative free Blossom Cody NP Work Phone: [facility] 03-24-2023 influenza virus vacc ine, unspecified formulation Natalie Hernandez MD Work Phone: [facility] 08-26-2021 tetanus and diphther ia toxoids, adsorbed, preservative free, for adult use (5 Lf of tetanus toxoid and 2 Lf of diphtheria toxoid) Blossom Cody [employer] Work Phone: [facility] 03-28-2021 influenza, injectabl e, quadrivalent, preservative free Blossomdidier Lozoyael [employer] Work Phone: [facility] 02-13-2020 Influenza, injectabl e, Madin Nel Canine Kidney, preservative free, quadrivalent Blossom Glo [employer] Work Phone: [facility] 02-22-2019 influenza, injectabl e, quadrivalent, preservative free Blossom Glo [employer] Work Phone: [facility] 02-07-2018 influenza, injectabl e, quadrivalent, preservative free Blossom Glo [employer] Work Phone: [facility] Healthcare Payers Date Payer Category Payer [facility] Health Insurance [facility] [id number] 2022 Unknown [id number] 2020 Self-pay [id number] 1979 Unknown [id number] 2.16.840.1.571857.3.579. 2.593 1979 Unknown [id number] 2.16.840.1.591520.3.579. 2.593 1979 Unknown [id number] 2.16.840.1.157422.3.579. 2.593 1979 Unknown [id number] 2.16.840.1.055509.3.579. 2.593 1979 Unknown [id number] 2.16.840.1.403992.3.579. 2.593 1979 Unknown [id number] 2.16.840.1.684859.3.579. 2.593 1979 Unknown [id number] 2.16.840.1.164861.3.579. 2.593 1979 Unknown [id number] 2.16.840.1.503694.3.579. 2.593 1979 Unknown [id number] 2.16.840.1.394492.3.579. 2.593 1979 Unknown [id number] 2.16.840.1.004599.3.579. 2.593 1979 Unknown [id number] 2.16.840.1.765734.3.579. 2.593 1979 Unknown [id number] 2.16.840.1.774724.3.579. 2.593 1979 Unknown [id number] 2.16.840.1.142522.3.579. 2.593 1979 Unknown [id number] 2.16.840.1.285502.3.579. 2.593 1979 Unknown [id number] 2.16.840.1.125633.3.579. 2.593 1979 Unknown [id number] 2.16.840.1.764447.3.579. 2.593 1979 Unknown [id number] 2.16.840.1.726450.3.579. 2.593 1979 Unknown [id number] 2.16.840.1.785916.3.579. 2.593 1979 Unknown [id number] 2.16.840.1.879696.3.579. 2.593 1979 Unknown [id number] 2.16.840.1.952601.3.579. 2.593 1979 Unknown [id number] 2.16.840.1.955989.3.579. 2.593 1979 Unknown [id number] 2.16.840.1.049887.3.579. 2.593 1979 Unknown [id number] 2.16.840.1.195364.3.579. 2.593 1979 Unknown [id number] 2.16.840.1.091826.3.579. 2.593 1979 Unknown [id number] 2.16.840.1.419595.3.579. 2.593 1979 Unknown [id number] 2.16.840.1.350383.3.579. 2.593 1979 Unknown [id number] 2.16.840.1.405159.3.579. 2.593 1979 Unknown [id number] 2.16.840.1.859633.3.579. 2.593 1979 Unknown [id number] 2.16.840.1.760442.3.579. 2.593 1979 Unknown [id number] 2.16.840.1.155359.3.579. 2.593 1979 Unknown [id number] 2.16.840.1.423947.3.579. 2.593 1979 Unknown [id number] 2.16.840.1.995524.3.579. 2.593 1979 Unknown [id number] 2.16.840.1.018010.3.579. 2.593 1979 Unknown [id number] 2.16.840.1.473128.3.579. 2.593 1979 Unknown [id number] 2.16.840.1.076800.3.579. 2.593 1979 Unknown [id number] 2.16.840.1.512222.3.579. 2.593 1979 Unknown [id number] 2.16.840.1.047533.3.579. 2.593 1979 Unknown [id number] 2.16.840.1.297083.3.579. 2.593 1979 Unknown [id number] 2.16.840.1.219341.3.579. 2.593 1979 Unknown [id number] 2.16.840.1.367244.3.579. 2.593 1979 Unknown [id number] 2.16.840.1.349747.3.579. 2.593 1979 Unknown [id number] 2.16.840.1.210641.3.579. 2.1258 1979 Unknown [id number] 2.16.840.1.087501.3.579. 2.9 1979 Unknown [id number] 2.16.840.1.996265.3.579. 2.1258 1979 Unknown [id number] 2.16.840.1.270930.3.579. 2.9 1979 Unknown [id number] 2.16.840.1.417963.3.579. 2.9 1979 Unknown [id number] 2.16.840.1.057137.3.579. 2.9 1979 Unknown [id number] 2.16.840.1.257038.3.579. 2.1258 1979 Unknown [id number] 2.16.840.1.644966.3.579. 2.9 1979 Unknown [id number] 2.16.840.1.903689.3.579. 2.1259 1959 Unknown [id number] 2.16.840.1.699713.19 1959 Unknown [id number] 2.16.840.1.618293.19 Unknown [id number] 2.16.840.1.697219.3.579. 2.531 Unknown [id number] 2.16.840.1.457312.3.579. 2.531 Social History Date Type Detail Facility Unknown if ever smoked [facility] Other Start: 03-23-2023 End: 04-19-2024 Sex Assigned At [facility] Start: 12-21-2022 Tobacco smoking status NDIS Never smoked tobacco [facility] Start: 12-21-2022 [...] Start: 1980 Sex Assigned At Male F 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 Avoid sweets. enc fruit and elliot veget, lean protein nuts, exercise Poorly controlled diabetes mellitus (CMS/HCC) Type 2 diabetes mellitus with hyperglycemia, with long-term current use of insulin ([facility]/HCC): See Endo Amputation of toe, traumatic, left, sequela ([facility]/HCC): Sees Podiatry Diabetic autonomic neuropathy associated with type 2 diabetes mellitus (CMS/HCC: See above Acquired hallux valgus, unspecified laterality: Sees Podiatry Morbid obesity ([facility]): See above Vitamin B12 deficiency: 374 on recent lab in Jan Lipoprotein deficiency disorder F/U in July or August for recheck-hypertension/Diabetes, sooner if concerns documented in this encounter [facility] 02-28-2024 Telephone encount er Note Rx sent [facility] 02-28-2024 Miscellaneous Notes Formattin g of this note might be different from the original. Rx sent documented in this encounter [facility] 01-19-2024 History of Presen t illness [...] polyneuropathy associated with type 2 diabetes mellitus ([facility]/HCC) Comments: HgbA1c 9.7 in October. He [...] hyperglycemia, with long-term current use of insulin ([facility]): As above Dyslipidemia ([facility]) Comments: Last LDL 79 in Mar 2023 Hypertriglyceridemia ([facility]) Comments: Last Trig 290 in Mar 2023. Avoid sweets, more fruits and mainly non-starchy vegetables, lean protien, nuts and routine exercise. Amputation of toe, traumatic, left, sequela ([facility]) Vitamin B 12 deficiency Comments: Last Vit B12 351 Pt declined flu vaccine today, prefers to wait into later February, could stop back here or do at work or pharmacy. Does not plan to get any more covid vaccines. Enc to think about Prevnar 20. F/U in 3 months for Wellness, sooner if concerns. PVU documented in this encounter [facility] 12-30-2023 Telephone encount er Note Rx sent [facility] 12-30-2023 Miscellaneous Notes Formattin g of this note might be different from the original. Rx sent documented in this encounter [facility] 06-16-2023 History of Presen t illness [...] polyneuropathy associated with type 2 diabetes mellitus (CMS/[facility]) Comments: Sees Joshua, last HgbA1c 8.11 May 2023 (prior 8.9 end of December). Pt asked me why we can't just take care of his Diabetes, so he doesn't have to go to [place]. I told him because his sugars are [...] DM care again. 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 Now has left foot toe amputated. Per pt toe is healing Ulcer of foot due to type 2 diabetes mellitus ([facility]): Hx of Poorly controlled diabetes mellitus ([facility]): Last HgbA1c 8.2 Type 2 diabetes mellitus with hyperglycemia, with long-term current use of insulin ([facility]): As above Vitamin B 12 deficiency Comments: Last WNL at 351 Hx of diabetic neuropathy: Hx of 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): Hx of Morbid obesity ([facility]) Comments: Enc healthy diet, watch sweets carbs. Balance diet with carb proteinm try to add vegeatbles, Enc physical activity as able Hypertriglyceridemia ([facility]) Comments: Last lipids 04/01 Chol [...] neuropathy, with long-term current use of insulin ([facility]): Hx of USP (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 (Z79.4): Hx of Acquired absence of other toe(s), unspecified side (Z89.429): Hx of Type 2 diabetes mellitus with diabetic neuropathy, with long-term current use of insulin ([facility]); Hx of Body mass index [BMI] 50.0-59.9, adult (Z68.43): See above. Discussed seeing weight loss provider or seeing someone about gastric bypass-pt declined both. He is not interested in this Type 2 diabetes mellitus with foot ulcer, with long-term current use of insulin ([facility]): Hx of (no ulcer at this time, bu lit recent amputation of 4th toe 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.49): Hx of Status post amputation of lesser toe, unspecified laterality ([facility]): 4th toe-has appt for follow up with Dr Feldman Arthritis of left foot: Hx of Acquired hallux valgus of left foot: Hx of Type 2 Diabetes mellitus with hyperglycemia with fci current use of insulin ([facility]): Hx of Morbid obesity: See above documented in this encounter [facility] 06-15-2023 Evaluation note Encounter Date Diagnosis Assessment Notes Jun, Type 2 diabetes mellitus with hyperglycemia (ICD-10 - E11.65) [facility] 01-31-2024 Evaluation note* Encounter Date Diagnosis [...] f/u with pcp for further recommendation May, USP current use of insulin (ICD-10 - Z79.4) May, Vitamin B 12 deficiency (ICD-10 - E53.8) 04/01 vit b 12 351 at target May, BMI 50.0-59.9, adult (ICD-10 - Z68.43) see above May, Amputation toe (ICD-10 - Z89.429) Keep f/u with Dr. Feldman May, Cracked skin on feet (ICD-10 - R23.4) keep f/u with Dr. Feldman [facility] 08-28-2023 Evaluation note* Encounter Date Diagnosis [...] for Lispro/ozempic 0.5mg sent to [facility] [place] 01/04/23 7. Prescriptions will not be filled [...] (hypertension) (ICD-10 - I10) on julissa Dec, USP current use of insulin (ICD-10 - Z79.4) Dec, Vitamin B 12 deficiency (ICD-10 - E53.8) 12/30 vit b 12 335 at target Dec, BMI 50.0-59.9, adult (ICD-10 - Z68.43) see above Dec, Wound of foot (ICD-10 - S91.309A) pt has apt scheduled with Dr. Feldman today [facility] 05-30-2023 NotePROCEDURE: XR FOOT LT MIN [...] Electronically authenticated by: FRANCO FRANCES Date: 2022-10-06 14:13[facility]05-04-2023 Evaluation note* Encounter Date Diagnosis Assessment Notes Treatment Notes Treatment Clinical Notes September, Type 2 diabetes mellitus with hyperglycemia (ICD-10 - E11.65) [facility] 04-17-2023 NotePROCEDURE: XR FOOT LT MIN [...] Electronically authenticated by: FERN SOSA Date: 2022-08-24 12:46[facility]02-16-2023 Evaluation note* Encounter Date Diagnosis Assessment Notes Treatment Notes Treatment Clinical Notes Jun, Type 2 diabetes mellitus with hyperglycemia (ICD-10 - E11.65) 1. Uncontrolled, a Type 2 diabetes with A1c of 8.2% 2. Blood glucose levels above target. Discussed with pt restarting ozempic, he had s/e from higher dose ozempic 1mg and concern with cost works at [employer]. Pt agreeable to starting sample ozempic 0.5mg [...] Syringes/ozempic/st eglatro sent to [facility] in [place] 06/25/22 7. 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 (ICD-10 - Z79.4) Jun, Vitamin B 12 deficiency (ICD-10 - E53.8) 12/28 vit b 12 423 at target Jun, BMI 50.0-59.9, adult (ICD-10 - Z68.43) [facility] 02-07-2023 NotePROCEDURE: XR ANKLE LT MIN [...] Electronically authenticated by: GISSEL RUBIO Date: 2022-06-16 16:33[facility]02-07-2023 NotePROCEDURE: XR ANKLE LT MIN 3 V, [...] Electronically authenticated by: GISSEL RUBIO Date: 2022-06-16 16:33[facility]08-30-2022 Evaluation note* Encounter Date Diagnosis Assessment Notes [...] (hypertension) (ICD-10 - I10) on julissa Dec, USP current use of insulin (ICD-10 - Z79.4) Dec, Vitamin B 12 deficiency (ICD-10 - E53.8) 12/28 vit b 12 423 at target Dec, BMI 45.0-49.9, adult (ICD-10 - Z68.42) 14 pound weight loss from last visit, continue with weight loss efforts [facility] 01-01-2021 History general Narrative - Reported* Type Description Date Medical History type II diabetes Medical History hypertension Medical History hyperlipidemia Medical History covid 05/2020 Surgical History Ulcer on left great toe X2 Surgical History Partial amputation Right great toe 01/2021 Surgical History All toes right foot amputated Hospitalization History Toe infection 2017 [facility] 01-01-2021 History general Narrative - Reported* Type Description Date Medical History type II diabetes Medical History hypertension Medical History hyperlipidemia Medical History covid 05/2020 Surgical History Ulcer on left great toe X2 Surgical History Partial amputation Right great toe 01/2021 Surgical History All toes right foot amputated Surgical History Left great toe corre ctive surgery with Dr. Feldman in [place] 10/2022 Hospitalization History Toe infection 2017 [facility] Other Chirb complaint+Reason for visit Narrative* Chief Complaint no meter Reason for Visit BMI 50.0-59.9, adult Dietary counseling and surveillance Hypertension Mixed hyperlipidemia Type 2 diabetes mellitus with hyperglycemia [facility] Work Phone: Chiln complaint+Reason for visit Narrative* Chief Complaint meter Reason for Visit BMI 50.0-59.9, adult Dietary counseling and surveillance Hypertension Mixed hyperlipidemia Type 2 diabetes mellitus with hyperglycemia Wound of left foot Wound of right foot [facility] Work Phone: Evaluation noteNo InformationNortThe [facility] [employer] Other Evaluation note* Diagnosis Diabetic polyneuropathy associated with type 2 diabetes mellitus ([facility]/HCC)- Primary Diabetic neuropathic arthropathy ([facility]/HCC) Type II or unspecified type diabetes mellitus with neurological manifestations, not stated as uncontrolled Type 2 diabetes mellitus with neurological manifestation ([facility]) 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, sequela ([facility]) Ulcer of foot due to type 2 diabetes mellitus ([facility]) Vitamin B 12 deficiency Other B-complex deficiencies Hx of diabetic neuropathy 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) Lipoprotein deficiencies Hypertriglyceridemia ([facility]) Pure hyperglyceridemia 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, 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) Essential hypertension Unspecified essential hypertension Nasal congestion Other diseases of nasal cavity and sinuses Type 2 diabetes mellitus with diabetic autonomic neuropathy, with long-term current use of insulin ([facility]/HCC) USP (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 (Z79.4) Acquired absence of other toe(s), unspecified side (Z89.429) Type 2 diabetes mellitus with diabetic neuropathy, with long-term current use of insulin ([facility]) Body mass index [BMI] 50.0-59.9, adult (Z68.43) Type 2 diabetes mellitus with foot ulcer, with long-term current use of insulin ([facility]) 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.49) Status post amputation of lesser toe, unspecified laterality ([facility]) Arthritis of left foot Acquired hallux valgus of left foot Type 2 diabetes mellitus with hyperglycemia, with long-term current use of insulin ([facility]) Morbid obesity ([facility]) Morbid obesity documented in this encounter [facility] HealthcareEvaluation noteNo assessment information availableMount [facility]. [facility] Work Phone: Evaluation note* Diagnosis Onset Date Resolution Status BMI 50.0-59.9, adult acute Dietary counseling and surveillance acute Hypertension acute Mixed hyperlipidemia acute Type 2 diabetes mellitus with hyperglycemia [facility] Work Phone: Evaluation note* Diagnosis Onset Date Resolution Status BMI 50.0-59.9, adult acute Dietary counseling and surveillance acute Hypertension acute Mixed hyperlipidemia acute Type 2 diabetes mellitus with hyperglycemia acute Wound of left foot acute Wound of right foot acute [facility] Work Phone: Evaluation note* Diagnosis Pure hyperglyceridemia ([facility]) Pure hyperglyceridemia documented in this encounter [facility] HealthcareEvaluation note* Diagnosis Diabetic polyneuropathy associated with type 2 diabetes mellitus ([facility])- Primary Type 2 diabetes mellitus with neurological manifestation ([facility]) Essential hypertension Unspecified essential hypertension 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, subsequent encounter ([facility]) Type 2 diabetes mellitus with hyperglycemia, with long-term current use of insulin ([facility]) Dyslipidemia ([facility]) Other and unspecified hyperlipidemia Hypertriglyceridemia ([facility]) Pure hyperglyceridemia Vitamin B 12 deficiency Other B-complex deficiencies Pure hyperglyceridemia ([facility]) Pure hyperglyceridemia documented in this encounter [facility] HealthcareEvaluation note* Diagnosis Diabetic polyneuropathy associated with type 2 diabetes mellitus ([facility])- Primary Wellness examination Type 2 diabetes mellitus with neurological manifestation ([facility]) Essential hypertension Unspecified essential hypertension 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, subsequent encounter ([facility]) Dyslipidemia ([facility]) Other and unspecified hyperlipidemia Hypertriglyceridemia ([facility]) Pure hyperglyceridemia Poorly controlled diabetes mellitus ([facility]) Type II or unspecified type diabetes mellitus without mention of complication, not stated as uncontrolled Type 2 diabetes mellitus with hyperglycemia, with long-term current use of insulin ([facility]) Diabetic autonomic neuropathy associated with type 2 diabetes mellitus ([facility]) Type II or unspecified type diabetes mellitus with neurological manifestations, not stated as uncontrolled Acquired hallux valgus, unspecified laterality Morbid obesity ([facility]) Morbid obesity Vitamin B 12 deficiency Other B-complex deficiencies 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[facility]) Lipoprotein deficiencies documented in this encounter [...] section and content) DATE CREATED AUTHOR 08/27/2021 [facility] dical Specialist DATE CREATED AUTHOR AUTHOR'S ORGANIZ ATION 10/17/2022 [facility] DATE CREATED AUTHOR AUTHOR'S ORGANIZ ATION 04/22/2024 [facility] dical Specialists EPIC DATE CREATED AUTHOR AUTHOR'S ORGANIZ ATION 04/29/2024 [facility] REASON FOR VISIT (unrecogniz ed [...] January 26, 2024 End: January 26, 2024 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 Start Date End Date Natalie Hernandez MD [address] [place] [address] PCP - General Family Medicine 09/15/22 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 Start Date End Date Natalie Hernandez MD [address] [place] [address] PCP - General Family Medicine 09/15/22 Team [...] October 19, 2023 End: October 19, 2023 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 Start Date End Date Natalie Hernandez MD [address] [place] [address] PCP - General Family Medicine 09/15/22 Blossom Cody NP [address] [place] [address] Nurse Practitioner Family Medicine 01/19/24 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 Start Date End Date Natalie Hernandez MD [address] [place] [address] PCP - General Family Medicine 09/15/22 Blossom Cody NP [address] [place] [address] Nurse Practitioner Family Medicine 01/19/24 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 Start Date End Date Natalie Hernandez MD [address] [place] [address] PCP - General Family Medicine 09/15/22 Blossom Cody NP [address] [place] [address] Nurse Practitioner Family Medicine 01/19/24 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 Start Date End Date Natalie Hernandez MD [address] [place] [address] PCP - General Family Medicine 09/15/22 Blossom Cody NP [address] [place] [address] Nurse Practitioner Family Medicine 01/19/24 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 Start Date End Date Natalie Hernandez MD [address] [place] [address] PCP - General Family Medicine 09/15/22 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 Start Date End Date Natalie Hernandez MD [address] [place] [address] PCP - General Family Medicine 09/15/22 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 Start Date End Date Natalie Hernandez MD [address] [place] [address] PCP - General Family Medicine 09/15/22 Blossom Cody NP [address] [facility] [place] [address] Nurse Practitioner Family Medicine 01/19/24 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 Start Date End Date Natalie Hernandez MD [address] [facility] [address] PCP - General Family Medicine 09/15/22 Blossom Cody NP [address] [place] [address] Nurse Practitioner Family Medicine 01/19/24 Team Status: [...] BE BASED ON THE PRIMARY CLINICAL RECORDS. [facility] provides no warranty or guarantee of the accuracy or completeness of information in this document.
== END 2024-07-18 16:12 | disposition home or self-care (01) ==
LOC: WC 16:11
PROVIDERS: PCP Family Medicine; Visit Provider Physician Assistant
DX: E11.621 Type 2 diabetes mellitus with foot ulcer (principal); L97.412 Non-pressure chronic ulcer of right heel and midfoot with fat layer exposed; E11.622 Type 2 diabetes mellitus with other skin ulcer; L97.311 Non-pressure chronic ulcer of right ankle limited to breakdown of skin
CPT/HCPCS: 29445

== ENCOUNTER 2024-07-25 13:06 | Outpatient (OUT) | payer OTHER, SELFPAY | END 2024-07-25 13:07 | disposition home or self-care (01) | LOC: WC 13:06 | PROVIDERS: PCP Family Medicine; Visit Provider Physician Assistant | DX: E11.621 Type 2 diabetes mellitus with foot ulcer (principal); L97.412 Non-pressure chronic ulcer of right heel and midfoot with fat layer exposed; E11.622 Type 2 diabetes mellitus with other skin ulcer; L97.311 Non-pressure chronic ulcer of right ankle limited to breakdown of skin | CPT/HCPCS: 11043; 29445; A6213 ==

== ENCOUNTER 2024-08-01 13:40 | Outpatient (OUT) | payer OTHER, SELFPAY | END 2024-08-01 13:41 | disposition home or self-care (01) | LOC: WC 13:40 | PROVIDERS: PCP Family Medicine; Visit Provider Physician Assistant | DX: E11.621 Type 2 diabetes mellitus with foot ulcer (principal); L97.412 Non-pressure chronic ulcer of right heel and midfoot with fat layer exposed | CPT/HCPCS: 29445; A6213 ==

== ENCOUNTER 2024-08-08 13:11 | Outpatient (OUT) | payer OTHER, SELFPAY | END 2024-08-08 13:12 | disposition home or self-care (01) | LOC: WC 13:11 | PROVIDERS: PCP Family Medicine; Visit Provider Physician Assistant | DX: E11.621 Type 2 diabetes mellitus with foot ulcer (principal); L97.412 Non-pressure chronic ulcer of right heel and midfoot with fat layer exposed | CPT/HCPCS: 29445; A6213 ==

== ENCOUNTER 2024-08-15 15:16 | Outpatient (OUT) | payer OTHER, SELFPAY | END 2024-08-15 15:17 | disposition home or self-care (01) | LOC: WC 15:17 | PROVIDERS: PCP Family Medicine; Visit Provider Physician Assistant | DX: E11.621 Type 2 diabetes mellitus with foot ulcer (principal); L97.412 Non-pressure chronic ulcer of right heel and midfoot with fat layer exposed | CPT/HCPCS: 29445; A6213 ==

== ENCOUNTER 2024-08-22 14:47 | Outpatient (OUT) | payer OTHER, SELFPAY ==
--- OUTSIDE RECORDS SUMMARY | 2024-08-22 15:09 | XMS_ITS | CCD ---
Author Organization [facility] Care Team Providers Care Risk Adjustment Specialist Name Role Phone Link Ortega Unavailable [...] Care Provider MD Damon Claros Attending Provider [phone] MD Shelby [facility] Care Provider Natalie Hernandez MD Primary Care Provider Blossom Cody NP Unavailable Natalie Hernandez Primary Care Unavailable Francia, Natanael Marks Admitting Unavailable Francia, Natanael Marks Attending Unavailable Shelby, [facility] Unavailable Damon Claros Admitting Unavailable Damon Claros Attending Unavailable Shelby AVALOS [facility] Provider [phone] Francia DPNatanael Bland Attending Provider BLOSSOM CODY Attending Unavailable MIRLANDE MOORE Attending Unavailable LIV, MIRLANDE Zhang Attending Unavailable BLOSSOM CODY Attending Unavailable LIV, MIRLANDE Zhang Attending Unavailable RUS, MIRLANDE Zhang Attending Unavailable BLOSSOM CODY Attending Unavailable GLO, BLOSSOM [...] tablet,chewable Active 81 MG PO Daily October 19, [...] tablet Active 40 MG PO Daily October 19, 2023 12:00am dapagliflozin 10 mg oral tablet (16 sources) Sodium-Glucose Cotransporter 2 Inhibitor Start: 10-19-2023 [...] Active insulin glargine 100 unt/ml injectable solution (17 sources) Insulin Analog inject 44 [IU] by [...] to max 50 units/day); Provider: Shannon Price Insulin Glargine-Yfgn (Semglee(Insulin Glarg-Yfgn)Pen) 100 unit/mL (3 mL) insulin pen (2 sources) Start: 08-21-2024 Insulin Glargi ne-Yfgn (Semglee(Insulin Glarg-Yfgn)Pen) 100 unit/mL (3 mL) insulin pen Active 45 UNIT SUBCUT Twice daily August 21, 2024 9:31am Start: 07-24-2024 End: 08-21-2024 Insulin Glargine-Yfgn (Semgl ee(Insulin Glarg-Yfgn)Pen) 100 unit/mL (3 mL) insulin pen Discontinued 44 UNIT SUBCUT Twice daily 90 July 24, 2024 12:00am August 21, 2024 9:31am insulin glargine-yfgn 100 unit/ml solution (2 sources) [...] Active insulin lispro (HumaLOG) 100 UNIT/ML injection (17 sources) insulin lispro ( HumaLOG) 100 UNIT/ML [...] 0 Active Insulin Lispro 100 unit/mL solution (10 sources) Start: 02-28-2024 Insulin Lispro 100 unit/mL solution Active 0 SUBCUT .COMPLEX February 28, 2024 10:07am subcutaneously; 1:4 carb ratio ac tid. 1:15 corrective scale ac tid (hs if >200 half dose) as directed; (expect up to 66 units/day) Start: 02-28-2024 Insulin Lispro 100 unit/mL solution Active 0 SUBCUT .COMPLEX February 28, 2024 9:07am subcutaneously; 1:4 carb ratio ac tid. 1:15 corrective scale ac tid (hs if >200 half dose) as directed; (expect up to 66 units/day) Start: 01-26-2024 End: 02-28-2024 Insulin Lispro 100 unit/mL s olution Discontinued 0 SUBCUT .COMPLEX January 26, 2024 10:37am February 28, 2024 10:12am subcutaneously; 1:4 carb ratio ac tid. 1:15 corrective scale ac tid (hs if >200 half dose) as directed; (expect up to 60 units/day) Start: 01-26-2024 End: 02-28-2024 Insulin Lispro 100 unit/mL s olution Discontinued 0 SUBCUT .COMPLEX 60 January 26, 2024 9:37am February 28, 2024 9:12am subcutaneously; 1:4 carb ratio ac tid. 1:15 corrective scale ac tid (hs if >200 half dose) as directed; (expect up to 60 units/day) Start: 12-15-2023 End: 01-26-2024 Insulin Lispro 100 unit/mL s olution Discontinued 0 SUBCUT .COMPLEX December 15, 2023 2:47pm January 26, 2024 10:37am subcutaneously; 1:4 carb ratio ac tid. 1:15 corrective scale ac tid (hs if >200 half dose) as directed; (expect up to 60 units/day) Start: 12-15-2023 End: 01-26-2024 Insulin Lispro 100 unit/mL s olution Discontinued 0 SUBCUT .COMPLEX December 15, 2023 1:47pm January 26, 2024 9:37am subcutaneously; 1:4 carb ratio ac tid. 1:15 corrective scale ac tid (hs if >200 half dose) as directed; (expect up to 60 units/day) Start: 10-19-2023 End: 12-15-2023 Insulin Lispro 100 unit/mL s olution Discontinued 0 SUBCUT .COMPLEX October 19, 2023 12:27pm December 15, 2023 2:48pm subcutaneously; 1:4 carb ratio ac tid. 1:15 corrective scale ac tid (hs if >200 half dose) as directed; (expect up to 60 units/day) Start: 10-19-2023 End: 12-15-2023 Insulin Lispro 100 unit/mL s olution Discontinued 0 SUBCUT .COMPLEX October 19, 2023 11:27am December 15, 2023 1:48pm subcutaneously; 1:4 carb ratio ac tid. 1:15 corrective scale ac tid (hs if >200 half dose) as directed; (expect up to 60 units/day) Start: 10-19-2023 End: 10-19-2023 Insulin Lispro 100 unit/mL s olution Discontinued 0 SUBCUT .COMPLEX October 19, 2023 [...] as directed; (expect up to 60 units/day) 3 ml liraglutide 6 mg/ml pen injector (18 sources) GLP-1 Receptor Agonist Start: 10-19-2023 Liraglutide [...] tablet Active 30 MG PO Daily October 19, 2023 12:00am End: 06-16-2023 take 1 tablet by mouth [...] Active traZODone hydrochloride 100 mg oral tablet (5 sources) Serotonin Reuptake Inhibitor Start: 08-21-2024 take 1 tablet by mouth once daily as needed Trazodone 100 mg tablet Active 100 MG PO Daily as needed August 21, 2024 9:09am Start: 06-14-2024 End: 08-21-2024 traZODone (Desyrel) 100 MG t ablet Indications: Depressed mood , Insomnia, unspecified type Take 1 tablet (100 mg) by mouth as needed at bedtime for sleep 30 tablet 1 07/19/2024 Active urea 400 mg/ml topical cream (12 sources) Start: 12-01-2023 urea (Carmol) 40 % [...] every eight hours as needed for pain oxyCODONE-acetami nophen (Percocet) 5-325 MG tablet TAKE 1 TABLET BY MOUTH EVERY 8 HOURS FOR 7 DAYS NEEDED FOR PAIN 0 05/17/2023 06/16/2023 Discontinued (Therapy completed) ampicillin 2000 mg / sulbactam 1000 mg injection (2 sources) Penicillin-class Antibacterial, beta Lactamase Inhibitor Start: 06-14-2024 End: 08-21-2024 inject 3 g by intramuscular injection every six hours Ampicillin-Sulbac vila (Unasyn) 3 gram recon soln Discontinued 3 GM IM Every 6 hours June 14, 2024 1:00am August 21, 2024 9:08am cephalexin 500 mg oral capsule (2 sources) [...] 100 UNITS 10/21/2023 01/19/2024 Discontinued (Duplicate order) Insulin Glargine-Yfgn 100 unit/mL solution (14 sources) Start: 02-28-2024 End: 07-24-2024 Insulin Glargine-Yfgn 100 unit/mL solution Discontinued 44 UNIT SUBCUT Twice daily 100 February 28, 2024 9:56am July 24, 2024 4:24pm Start: 02-28-2024 Insulin Glargi ne-Yfgn 100 unit/mL solution Active 44 UNIT SUBCUT Twice daily February 28, 2024 8:56am Start: 10-19-2023 End: 02-28-2024 Insulin Glargine-Yfgn 100 un it/mL solution Discontinued 44 UNIT SUBCUT Twice daily October 19, 2023 12:27pm February 28, 2024 9:56am Start: 10-19-2023 End: 02-28-2024 Insulin Glargine-Yfgn 100 un it/mL solution Discontinued 44 UNIT SUBCUT Twice daily October 19, 2023 11:27am February 28, 2024 8:56am Start: 10-19-2023 End: 10-19-2023 Insulin Glargine-Yfgn 100 un it/mL solution Discontinued 44 UNIT SUBCUT Twice daily October 19, 2023 12:04pm October 19, 2023 12:27pm Start: 10-19-2023 End: 10-19-2023 Insulin Glargine-Yfgn 100 un it/mL solution Discontinued 44 UNIT SUBCUT Twice daily October 19, 2023 11:04am October 19, 2023 11:27am Start: 10-19-2023 End: 10-19-2023 Insulin Glargine-Yfgn 100 un it/mL solution Discontinued 40 UNIT SUBCUT Twice daily October 19, 2023 11:40am October 19, 2023 12:05pm Start: 10-19-2023 End: 10-19-2023 Insulin Glargine-Yfgn 100 un it/mL solution Discontinued 40 UNIT SUBCUT Twice daily October 19, 2023 10:40am October 19, 2023 11:05am Start: 07-26-2023 End: 10-19-2023 Insulin Glargine-Yfgn 100 un it/mL solution Discontinued 46 UNIT SUBCUT Twice daily 90 90 July 26, 2023 3:32pm October 19, 2023 11:40am Start: 07-26-2023 End: 10-19-2023 Insulin Glargine-Yfgn 100 un it/mL solution Discontinued 46 UNIT SUBCUT Twice daily 90 90 July 26, 2023 2:32pm October 19, 2023 10:40am Start: 07-26-2023 End: 07-26-2023 Insulin Glargine-Yfgn 100 un it/mL solution Discontinued 46 UNIT SUBCUT Twice daily 90 90 July 26, 2023 9:10am July 26, 2023 3:33pm Start: 07-26-2023 End: 07-26-2023 Insulin Glargine-Yfgn 100 un it/mL solution Discontinued 46 UNIT SUBCUT Twice daily 90 90 July 26, 2023 8:10am July 26, 2023 2:33pm Start: 07-26-2023 End: 07-26-2023 Insulin Glargine-Yfgn 100 un it/mL solution Discontinued UNIT SUBCUT July 26, 2023 12:00am July 26, 2023 9:15am FreeTextSig: INJECT 46 UNITS SQ bid; Note: Source Status: Increase(titrate up to max 50 units/day); Provider: Shannon Price Start: 07-26-2023 End: 07-26-2023 Insulin Glargine-Yfgn 100 un it/mL solution Discontinued UNIT SUBCUT July 25, 2023 11:00pm July 26, 2023 8:15am FreeTextSig: INJECT 46 UNITS SQ bid; Note: Source Status: Increase(titrate up to max 50 units/day); Provider: Shannon Price linezolid 600 mg oral tablet (2 sources) Oxazolidinone Antibacterial Start: 06-14-2024 End: 08-21-2024 take 1 tablet by mouth twice daily Linezolid 600 mg tablet Discontinued 600 MG PO Twice daily June 14, 2024 1:00am August 21, 2024 9:09am Problems Active Problems Problem Classification Problem Date Documented Da te Episodic/Chronic Acquired foot deformities (20 sources) Hallux rigidus, unspecified foot; Translations: [Hallux rigidus, left foot] Onset: 05-13-2022 10-02-2022 Chronic Acquired foot deformities (1 source) Flat foot [pes planus] (acquired), left foot; Translations: [FLAT FOOT PES PLANUS ACQ LT FOOT] Onset: 10-07-2022 Episodic Administrative/social admission (11 sources) Dietary counseling and surveillance; Translations: [Patient encounter status] Onset: 01-06-2022 Resolved: 01-06-2022 Episodic Bacterial infection; unspecified site (2 sources) 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; Translations: [Infection with drug-resistant microorganisms, unspecified, with multiple drug resistance] 06-14-2024 Episodic Chronic ulcer of skin (20 sources) [...] Resolved: 06-17-2023 Chronic Diabetes mellitus without complication (3 sources) Diabetes mellitus; Translations: [Type 2 diabetes mellitus without complications] 06-14-2024 Chronic Disorders of lipid metabolism (20 sources) Hyperlipidemia; Translations: [Hyperlipidemia, unspecified] Onset: 01-06-2022 Resolved: 06-17-2023 Chronic Essential hypertension (20 sources) Hypertensive disorder; Translations: [Essential (primary) hypertension] Onset: 01-06-2022 Resolved: 01-06-2022 Chronic Miscellaneous mental health disorders (2 sources) Depressed mood; Translations: [Other symptoms and signs involving emotional state] 07-19-2024 Episodic Nutritional deficiencies (9 sources) Vitamin D deficiency; Translations: [Vitamin D deficiency, unspecified] Chronic Nutritional deficiencies (20 sources) Deficiency of other specified B group vitamins; Translations: [Cobalamin deficiency] Onset: 01-06-2022 Resolved: 01-06-2022 Episodic Open wounds of extremities (20 sources) Traumatic amputation of toe; 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, initial encounter] Onset: 10-02-2022 10-02-2022 Chronic Open wounds of extremities (14 sources) Traumatic amputation of toe; Translations: [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, sequela] Onset: 11-03-2023 11-03-2023 Chronic Open wounds of extremities (12 sources) Unspecified open wound, unspecified foot, initial encounter; Translations: [Injury of left foot] Episodic Osteoarthritis (19 sources) Arthritis of left foot; Translations: [Primary osteoarthritis, left ankle and foot] Onset: 10-02-2022 10-02-2022 Chronic Other aftercare (13 sources) Long-term current use of insulin; Translations: [termination clerk (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] 06-17-2023 Episodic Other aftercare (4 sources) [facility] (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 Onset: 01-06-2022 Resolved: 01-06-2022 Episodic Other aftercare (1 source) Drug therapy finding; Translations: [[facility] (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 antibiotics] 06-14-2024 Episodic Other aftercare (1 source) termination clerk (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 antibiotics; Translations: [Long-term (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 antibiotics] 06-14-2024 Episodic Other bone disease and musculoskeletal deformities [...] Chronic Other nutritional; endocrine; and metabolic disorders (6 sources) Body mass index (BMI) 50.0-59.9, adult; Translations: [Body Mass Index 50.0-59.9, adult] Chronic Other nutritional; endocrine; and metabolic disorders (1 source) Morbid (severe) obesity due to excess calories; Translations: [MORBID SEVERE OBES D/T EXCESS JIMMY] Onset: 07-06-2022 Chronic Other nutritional; endocrine; and metabolic disorders (20 sources) Lipoprotein deficiency disorder; Translations: [Lipoprotein deficiency] Onset: 10-02-2022 10-02-2022 Chronic Other nutritional; endocrine; and metabolic disorders (20 sources) Morbid obesity; Translations: [Morbid (severe) obesity due to excess calories] Onset: 10-02-2022 10-02-2022 Chronic Other skin disorders (5 sources) Nail dystrophy; Translations: [NAIL DYSTROPHY] Onset: 11-20-2021 Episodic Other skin disorders (1 source) Changes in skin texture Episodic Other upper respiratory disease (2 sources) Nasal congestion; Translations: [Nasal congestion] 06-16-2023 Episodic Residual codes; unclassified (2 sources) Insomnia; Translations: [Insomnia, unspecified] 07-19-2024 Episodic Past or Other Problems Problem Classification [...] 06-17-2023 10-02-2022 Chronic Other infections; including parasitic (17 sources) Personal history of other infectious and parasitic diseases; Translations: [History of COVID-19] Onset: 05-13-2020 Resolved: 06-17-2023 10-02-2022 Episodic Other non-traumatic joint disorders (1 source) Pain in left ankle and joints of left foot; Translations: [PAIN IN LEFT ANKLE] Onset: 06-24-2022 Episodic Other nutritional; endocrine; and metabolic disorders (19 sources) H/O: Disorder; Translations: [Personal history of other endocrine, nutritional and metabolic disease] Onset: 04-13-2018 Resolved: 06-17-2023 03-22-2023 Episodic Other skin disorders (5 sources) Corns and callosities; Translations: [CORNS AND CALLOSITIES] Onset: 12-15-2021 Episodic Superficial injury; contusion (4 sources) Blister (nonthermal), right foot, initial encounter; Translations: [BLISTER NONTHERMAL RT FOOT INITIAL] Onset: 12-29-2021 Episodic Results Test Name Value Interpretation Reference Range [facility] 04-26-2024 L Specimen: [id number] Received: 04/26/24 Status: CALEB Gabriel Num: [id number] Spec Type: Surgical Subm Dr: Natanael Feldman DPM, Tissues: A Skin-Other than Cyst, tag, debridement or plastic repair (RT FOOT ULCER) Procedures: Yenny SCOTT/Mary Robles Age/ Patient Sex Location Account Attending Physician Trev Ontiveros/M LABELL [id number] Natanael Feldman DPM, MS SPEC NUM: [id number] RECD: 04/26/24 STATUS: CALEB GABRIEL NUM: [id number] MARTHA: 04/26/[address]: Natanael Feldman DPM, MS ENTERED: 04/26/24 [facility] DR: Anju,Farzana SPEC TYPE: Surgical DEPT: DERRICK PLUNKETT ENTERED BY: [id number] REC BY: [id number] ORDERED: HE, Gross/Micro L4 ORDERED: HE, Gross/Micro [...] reveal purple-brown to green, softened cut surfaces. Senior Reliability Engineer sections are submitted in a single cassette. (1, ss, [id number]) CPT Codes 55511 Specimen: [id number] Received: 04/26/24 Status: CALEB Alanisrachel Num: [id number] Spec Type: Surgical Subm Dr: Natanael Feldman DPM, MS Tissues: A Skin-Other than Cyst, tag, debridement or plastic repair (RT FOOT ULCER) Procedures: HE, Gross/Micro L4 Patient: Trev Ontiveros [id number] (Continued) Signed (signature on file) Melanie Roca MD 04/27/24 1347 Normal [facility] A1C HEMOGLOBINon 06-09-2023 HbA1c (Bld) [Mass fraction] 8.2 % [employer] Other Glucose - FINGER STICKon Glucose [Mass/Vol] 170 mg/dL [employer] Other HbA1c (Bld) [Mass fraction]o n 06-09-2023 A1C HEMOGLOBIN [employer] Other A1C HEMOGLOBINon 01-04-2023 HbA1c (Bld) [Mass fraction] 8.9 % [employer] Other Glucose - FINGER STICKon Glucose [Mass/Vol] 201 mg/dL [employer] Other HbA1c (Bld) [Mass fraction]o n 01-04-2023 A1C HEMOGLOBIN [employer] Other PROF CHEM 8 (BAS METB)on Anion gap [Moles/Vol] 14.3 mmol/L Normal [facility] Comment on above: Performed By: #### B MP #### [facility] [address] [place], [place] [id number] Dr. Lauri Todd Calcium [Mass/Vol] 9.4 mg/dL Normal 8.5-10.1 [facility] Comment on above: Performed By: #### B MP #### [facility] [address] [place] [address] Dr. Lauri Todd Chloride [Moles/Vol] 101 mmol/L Normal 98-107 [facility] Comment on above: Performed By: #### B MP #### [facility] [address] [address] [address] Lauri Todd CO2 [Moles/Vol] 26.2 mmol/L Normal 21.0-32.0 [facility] Comment on above: Performed By: #### B MP #### [facility] [address] [place] [address] Dr. Lauri Todd Creatinine [Mass/Vol] 0.90 mg/dL Normal 0.70-1.30 [facility] Comment on above: Performed By: #### B MP #### [facility] [address] [place] [address] Dr. Lauri Todd EGFR-AF AZERBAIJANI >60 Normal >=60 [facility] Comment on above: Performed By: #### B MP #### [facility] [address] [place] [address] Dr. Lauri Todd EGFR-NON AF AZERBAIJANI >60 Normal >=60 [facility] Comment on above: Performed By: #### B MP #### [facility] [address] [place] [address] Dr. Lauri Todd Glucose [Mass/Vol] 146 mg/dL Critically high 74-106 [facility] Comment on above: Performed By: #### B MP #### [facility] [address] [address] [address] Lauri Todd Potassium [Moles/Vol] 4.5 mmol/L Normal 3.5-5.1 [facility] Comment on above: Performed By: #### B MP #### [facility] [address] [place] [address] Dr. Lauri Todd Sodium [Moles/Vol] 137 mmol/L Normal 136-145 [facility] Comment on above: Performed By: #### B MP #### [facility] [address] [place], [place] [address] Dr. Lauri Todd Urea nitrogen [Mass/Vol] 16.0 mg/dL Normal 7.0-18.0 [facility] Comment on above: Performed By: #### B MP #### [facility] [address] [place], [place] [address] Dr. Lauri Todd Urea nitrogen/Creatinin e [Mass ratio] 17.8 mg/mg Normal [facility] Comment on above: Performed By: #### B MP #### [facility] [address] [address] [address] Lauri Todd A1C HEMOGLOBINon 06-25-2022 HbA1c (Bld) [Mass fraction] 8.2 % [employer] Other Glucose - FINGER STICKon Glucose [Mass/Vol] 180 mg/dL [employer] Other HbA1c (Bld) [Mass fraction]o n 06-25-2022 [facility] Other XR FOOT LT MIN 3 VIEWSon [...] by: RAFAEL WHITAKER Date: 2022-05-25 11:52 Normal [facility] A1C HEMOGLOBINon 01-06-2022 HbA1c (Bld) [Mass fraction] 7 % [email or web address] Other Glucose - FINGER STICKon Glucose [Mass/Vol] 148 mg/dL [employer] Other HbA1c (Bld) [Mass fraction]o n 01-06-2022 A1C HEMOGLOBIN [facility] [employer] Other Basic Metabolic Panelon 08-08 Anion gap [Moles/Vol] 20 mmol/L Normal 12-20 [facility] Comment on above: Result Comment: Effe ctive 05/15/2019 reference range changed. Performed By: #### B MP #### [facility] [address], [place] [id number] Calcium [Mass/Vol] 10.0 mg/dL Normal 8.6-10.2 [facility] Comment on above: Performed By: #### B MP #### [facility] [address], [place] [id number] Chloride [Moles/Vol] 100 mmol/L Normal 98-107 [facility] Comment on above: Performed By: #### B MP #### [facility] [address], [place] [id number] CO2 [Moles/Vol] 22 mmol/L Normal 20-31 [facility] Comment on above: Performed By: #### B MP #### [facility] [address], [place] [id number] Creatinine [Mass/Vol] 0.8 mg/dL Normal 0.7-1.4 [facility] Comment on above: Performed By: #### B MP #### [facility] [address], [place] [id number] eGFRAA 129 mL/min/1.73m2 Normal >60 [facility] Comment on above: Performed By: #### B MP #### [facility] [address], [place] [id number] eGFRNAA 107 mL/min/1.73m2 Normal >60 [facility] Comment on above: Performed By: #### B MP #### [facility] [address], [place] [id number] Glucose [Mass/Vol] 140 mg/dL High 65-99 [facility] [place] [employer] Comment on above: Result Comment: For FASTING Glucose --- ADA reference ranges: Normal 65-99 mg/dl Prediabetes 100-125 Diabetes >/= 126 Performed By: #### B MP #### [facility] [address], [place] [id number] Potassium [Moles/Vol] 4.3 mmol/L Normal 3.5-5.5 [facility] Comment on above: Performed By: #### B MP #### [facility] [address], [place] [id number] Sodium [Moles/Vol] 137 mmol/L Normal 135-146 E[facility] [place] [employer] Comment on above: Performed By: #### B MP #### [facility] [address], [place] [id number] Urea nitrogen [Mass/Vol] 17 mg/dL Normal 7-25 [facility] [employer] Comment on above: Performed By: #### B MP #### [facility] [address], [place] [id number] Vital Signs Date Time Vital Sign Value Performing Clinician Facility 08-21-2024 09:08-0400 Diastolic blood pressure 74 mm[Hg] [facility] 08-21-2024 09:08-0400 Systolic blood pressure 129 mm[Hg] [facility] 08-21-2024 09:07-0400 Body height 182.88 cm [facility] 08-21-2024 09:07-0400 Body mass index (BMI) [Ratio] 50.5 kg/m2 [facility] 08-21-2024 09:07-0400 Body weight 169 kg [facility] 08-21-2024 09:07-0400 Heart rate 87 /min [facility] 08-21-2024 09:07-0400 Respiratory rate 18 /min [facility] 08-21-2024 09:07-0400 SaO2% (BldA) [Mass fraction] 97 % [facility] 07-19-2024 09:57-0400 Diastolic blood pressure 80 mm[Hg] Blossom Cody LINEN FOLDER Work Phone: [facility] 07-19-2024 09:57-0400 Systolic blood pressure 138 mm[Hg] Blossom Glo LINEN FOLDER Work Phone: [facility] 07-19-2024 09:22-0400 Body mass index (BMI) [Ratio] 50.03 kg/m2 Blossomneto Cody LINEN FOLDER Work Phone: [facility] 07-19-2024 09:22-0400 Body weight 165.02 kg Blossom Glo LINEN FOLDER Work Phone: [facility] 07-19-2024 09:22-0400 Heart rate 80 /min Blossom Cody LINEN FOLDER Work Phone: [facility] 06-14-2024 14:55-0500 Body height 182.88 cm Natalie Hernandez MD Work Phone: [facility] 06-14-2024 14:55-0500 Body mass index (BMI) [Ratio] 48.8 kg/m2 Natalie Hernandez MD Work Phone: [facility] 06-14-2024 14:55-0500 Body temperature 98.1 [degF] Natalie Hernandez MD Work Phone: [facility] 06-14-2024 14:55-0500 Body weight 163.29 kg Natalie Hernandez MD Work Phone: [facility] 06-14-2024 14:55-0500 Diastolic blood pressure 75 mm[Hg] Natalie Hernandez MD Work Phone: [facility] 06-14-2024 14:55-0500 Heart rate 104 /min Natalie Hernandez MD Work Phone: [facility] 06-14-2024 14:55-0500 Systolic blood pressure 124 mm[Hg] Natalie Hernandez MD Work Phone: [facility] 04-19-2024 09:47-0500 Body mass index (BMI) [Ratio] 52.21 kg/m2 Blossom Cody LINEN FOLDER Work Phone: [facility] 04-19-2024 09:47-0500 Body weight 172.19 kg Blossom Cody LINEN FOLDER Work Phone: [facility] 04-19-2024 09:47-0500 Diastolic blood pressure 72 mm[Hg] Blossom Cody LINEN FOLDER Work Phone: [facility] 04-19-2024 09:47-0500 Heart rate 84 /min Blossom Cody LINEN FOLDER Work Phone: [facility] 04-19-2024 09:47-0500 Systolic blood pressure 128 mm[Hg] Blossom Lozoyael LINEN FOLDER Work Phone: [facility] 01-26-2024 09:59-0400 Body height 182.88 cm [facility] 01-26-2024 09:59-0400 Body mass index (BMI) [Ratio] 51.2 kg/m2 [facility] 01-26-2024 09:59-0400 Body weight 171.54 kg [facility] 01-26-2024 09:59-0400 Diastolic blood pressure 83 mm[Hg] [facility] 01-26-2024 09:59-0400 Heart rate 81 /min [facility] 01-26-2024 09:59-0400 Respiratory rate 18 /min [facility] 01-26-2024 09:59-0400 SaO2% (BldA) [Mass fraction] 94 % [facility] 01-26-2024 09:59-0400 Systolic blood pressure 155 mm[Hg] [facility] 01-19-2024 11:00-0400 Body mass index (BMI) [Ratio] 51.82 kg/m2 Blossom Cody [employer] Work Phone: [facility] 01-19-2024 11:00-0400 Body weight 170.91 kg Blossom Cody [employer] Work Phone: [facility] 01-19-2024 11:00-0400 Diastolic blood pressure 78 mm[Hg] Blossom Cody [employer] Work Phone: [facility] 01-19-2024 11:00-0400 Heart rate 84 /min Blossom Cody [employer] Work Phone: [facility] 01-19-2024 11:00-0400 Systolic blood pressure 136 mm[Hg] Blossom Cody [employer] Work Phone: [facility] 10-19-2023 11:31-0400 Body height 182.88 cm [facility] 10-19-2023 11:31-0400 Body mass index (BMI) [Ratio] 51.7 kg/m2 [facility] 10-19-2023 11:31-0400 Body weight 172.87 kg [facility] 10-19-2023 11:31-0400 Diastolic blood pressure 83 mm[Hg] [facility] 10-19-2023 11:31-0400 Heart rate 74 /min [facility] 10-19-2023 11:31-0400 Respiratory rate 18 /min [facility] 10-19-2023 11:31-0400 SaO2% (BldA) [Mass fraction] 97 % [facility] 10-19-2023 11:31-0400 Systolic blood pressure 149 mm[Hg] [facility] 06-16-2023 11:33-0500 Diastolic blood pressure 84 mm[Hg] Blossom Cody [employer] Work Phone: [facility] 06-16-2023 11:33-0500 Systolic blood pressure 154 mm[Hg] Blossom Cody [employer] Work Phone: [facility] 06-16-2023 11:02-0500 Body mass index (BMI) [Ratio] 52.12 kg/m2 Blossom Cody [employer] Work Phone: [facility] 06-16-2023 11:02-0500 Body weight 171.91 kg Blossom Cody [employer] F[employer]DER Work Phone: [facility] 06-16-2023 11:02-0500 Heart rate 92 /min Blossom Cody [employer] F[employer] Work Phone: [facility] 06-09-2023 08:45-0500 Body height [email or web address] Other 06-09-2023 08:45-0500 Body height 182.88 cm MD Natalie Hernandez Work Phone: [facility] 06-09-2023 08:45-0500 Body mass index (BMI) [Ratio] 51.33 kg/m2 Tondra Mapus Other [employer] Other 06-09-2023 08:45-0500 Body weight 171.69 kg Tondra Mapus Other [employer] Other 06-09-2023 08:45-0500 Body weight 171.68 kg MD Natalie Diggs Phone: [facility] 06-09-2023 08:45-0500 Diastolic blood pressure 80 mm[Hg] Tondra Mapus Other [facility] 06-09-2023 08:45-0500 Respiratory rate 18 /min Tondra Mapus Other [employer] Other 06-09-2023 08:45-0500 SaO2% (BldA) [Mass fraction] 94 % Tondra Mapus Other [employer] Other 06-09-2023 08:45-0500 Systolic blood pressure 148 mm[Hg] Tondra Mapus Other [facility] 01-04-2023 08:45-0400 Body height Tondra Mapus Other [employer] Other 01-04-2023 08:45-0400 Body mass index (BMI) [Ratio] 51.37 kg/m2 Tondra Mapus Other [employer] Other 01-04-2023 08:45-0400 Body weight 171.82 kg Tondra Mapus Other [employer] Other 01-04-2023 08:45-0400 Diastolic blood pressure 85 mm[Hg] Tondra Mapus Other [employer] Other 01-04-2023 08:45-0400 Respiratory rate 18 /min Tondra Mapus Other [employer] Other 01-04-2023 08:45-0400 SaO2% (BldA) [Mass fraction] 98 % Tondra Mapus Other [employer] Other 01-04-2023 08:45-0400 Systolic blood pressure 150 mm[Hg] Tondra Mapus Other [employer] Other 06-25-2022 09:45-0500 Body height Tondra Mapus Other [employer] Other 06-25-2022 09:45-0500 Body mass index (BMI) [Ratio] 51.14 kg/m2 Tondra Mapus Other [employer] Other 06-25-2022 09:45-0500 Body weight 171.05 kg Tondra Mapus Other [employer] Other 06-25-2022 09:45-0500 Diastolic blood pressure 80 mm[Hg] Tondra Mapus Other [employer] Other 06-25-2022 09:45-0500 Respiratory rate 18 /min Tondra Mapus Other [employer] Other 06-25-2022 09:45-0500 SaO2% (BldA) [Mass fraction] 95 % Tondra Mapus Other [employer] Other 06-25-2022 09:45-0500 Systolic blood pressure 139 mm[Hg] Tondra Mapus Other [employer] Other 01-06-2022 09:45-0400 Body height Tondra Mapus Other [employer] Other 01-06-2022 09:45-0400 Body mass index (BMI) [Ratio] 48.28 kg/m2 Tondra Mapus Other [employer] Other 01-06-2022 09:45-0400 Body weight 161.48 kg Tondra Mapus Other [employer] Other 01-06-2022 09:45-0400 Diastolic blood pressure 71 mm[Hg] Tondra Mapus Other [employer] Other 01-06-2022 09:45-0400 Respiratory rate 20 /min Tondra Mapus Other [employer] Other 01-06-2022 09:45-0400 SaO2% (BldA) [Mass fraction] 95 % Tondra Mapus Other [employer] Other 01-06-2022 09:45-0400 Systolic blood pressure 124 mm[Hg] Tondra Mapus Other [employer] Other Encounters Encounter Date Encounter Type Care Provider Facility Start: 08-21-2024 End: 08-21-2024 ambulatory [facility] Work Phone: Start: 08-21-2024 End: 08-21-[address] 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, sequela (CMS/HCC); Type 2 diabetes mellitus with hyperglycemia, with long-term current use of insulin (CMS/HCC); Ulcer of right foot, unspecified ulcer stage (HCC) (CMS/HCC); Poorly controlled diabetes mellitus (CMS/HCC); Dyslipidemia (CMS/HCC); Hypertriglyceridemia (CMS/HCC); Essential hypertension; Morbid obesity (CMS/HCC); Amputation of toe, traumatic, left, sequela (CMS/HCC); Vitamin B 12 deficiency; Depressed mood; Insomnia, unspecified type Start: 07-19-2024 End: 07-19-2024 ambulatory BLOSSOM CODY Not Available Start: 06-14-2024 End: 06-14-2024 ambulatory Natalie Hernandez MD Work Phone: [facility] Work Phone: Start: 06-14-2024 End: 06-14-2024 Patient encounter procedure Natalie Hernandez MD Work Phone: [facility] Physician [facility] Work Phone: Start: 05-30-2024 Non-patient / Non-visit [facility] Physician [facility] Work Phone: Start: 05-30-2024 End: 06-01-2024 Clinisync [...] Start: 04-26-2024 End: 04-26-2024 ambulatory Natalie Hernandez Facility:[facility] Start: 04-26-2024 End: 04-26-2024 Departed Referred Natalie Hernandez MD Work Phone: [facility] Start: 04-25-2024 End: 04-27-2024 Clinisync Result Encounter Generic External Data Provider [facility] Unsolicited Start: 04-25-2024 End: 04-27-2024 Clinisync Result Encounter Generic External Data Provider [facility] External [facility] Unsolicited Start: 04-19-2024 End: 04-19-2024 Bamboo flowsheet Blossom Cody [employer] F[employer]DER Work Phone: [facility] Start: 04-19-2024 End: 04-19-2024 Bammichello flowsheet Blossom Cody [employer] F[employer]DER Work Phone: [facility] Start: 04-19-2024 End: 04-19-2024 Patient encounter status Blossom Cody [employer] Work Phone: [facility] Start: 04-19-2024 End: 04-19-2024 Periodic preventive med est patient 40-64yrs Blossom Cody [employer] F[employer]DER Work Phone: [facility] Comment on above: Diabetic polyneuropa thy associated with type 2 diabetes mellitus (CMS/HCC) (Primary Dx); Wellness examination; 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); Essential hypertension; 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, subsequent encounter ([facility]); Dyslipidemia ([facility] Hypertriglyceridemia ([facility]); Poorly controlled diabetes mellitus ([facility]); Type 2 diabetes mellitus with hyperglycemia, with long-term current use of insulin ([facility]); Amputation of toe, traumatic, left, sequela ([facility]); Essential hypertension; Diabetic autonomic neuropathy associated with type 2 diabetes mellitus ([facility]); Acquired hallux valgus, unspecified laterality; Morbid obesity ([facility]); Vitamin B 12 deficiency; 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[facility]) Start: 04-19-2024 End: 04-19-2024 ambulatory BLOSSOM CODY Not Available Start: 02-28-2024 End: 02-28-2024 Refill Natalie Hernandez MD Work Phone: [facility] Comment on above: Pure hyperglyceridem ia ([facility]) Start: 01-26-2024 End: 01-26-2024 ambulatory [facility] Work Phone: Start: 01-26-2024 End: 01-26-[address] [facility] Work Phone: Start: 01-20-2024 Non-patient / Non-visit [facility] Work Phone: Start: 01-19-2024 End: 01-19-2024 Bamboo flowsheet Blossom Cody LINEN F[employer]DER Work Phone: [facility] Start: 01-19-2024 End: 01-19-2024 Bamboo flowsheet Blossom Cody LINEN F[employer]DER Work Phone: [facility] Start: 01-19-2024 End: 01-19-2024 Office outpatient visit 25 minutes Blossom Cody LIN[employer] F[employer]DER Work Phone: [facility] Comment on above: Diabetic polyneuropa thy associated with type 2 diabetes mellitus ([facility]) (Primary Dx); Type 2 diabetes mellitus with neurological manifestation ([facility]); Essential hypertension; 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, subsequent encounter ([facility]); Type 2 diabetes mellitus with hyperglycemia, with long-term current use of insulin ([facility]); Dyslipidemia ([facility]); Hypertriglyceridemia ([facility]); Amputation of toe, traumatic, left, sequela ([facility]); Vitamin B 12 deficiency; Pure hyperglyceridemia ([facility]) Start: 01-19-2024 End: 01-19-2024 ambulatory BLOSSOM CODY Not Available Start: 12-30-2023 End: 12-30-2023 Lenard Hernandez MD Work Phone: [facility] Comment on above: Essential hypertensi on Start: 10-29-2023 End: 10-29-2023 ambulatory MIRLANDE S TRAMHER Not Available Start: 10-19-2023 End: 10-19-2023 ambulatory [facility] Work Phone: Start: 10-19-2023 End: 10-19-[address] [facility] Work Phone: Start: 10-12-2023 End: 10-12-2023 ambulatory MIRLANDE S RUSHER Not Available Start: 09-15-2023 End: 09-15-2023 ambulatory BLOSSOMNETO CODY Not Available Start: 09-06-2023 End: 09-06-2023 ambulatory MIRLANDE S RUSHER Not Available Start: 08-02-2023 End: 08-02-2023 ambulatory MIRLANDE S RUSHER Not Available Start: 06-16-2023 Bamboo flowsheet Blossom cabrales [employer] F[employer]DER Work Phone: [facility] Start: 06-16-2023 Bamboo flowsheet Blossom cabrales LIN[employer] F[employer]DER Work Phone: [facility] Start: 06-16-2023 End: 06-16-2023 Office outpatient visit 25 minutes Blossom Cody NP Work Phone: [facility] Comment on above: Diabetic polyneuropa thy associated with type 2 diabetes mellitus ([facility]) (Primary Dx); Diabetic neuropathic arthropathy ([facility]/HCC); Type 2 diabetes mellitus with neurological manifestation ([facility]/HCC); 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, sequela ([facility]); Ulcer of foot due to type 2 diabetes mellitus ([facility]/HCC); Vitamin B 12 deficiency; Hx of diabetic neuropathy; 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CMS/HCC); Hypertriglyceridemia ([facility]/HCC); 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, 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); Essential hypertension; Nasal congestion; Type 2 diabetes mellitus with diabetic autonomic neuropathy, with long-term current use of insulin ([facility]); termination clerk (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 (Z79.4); Acquired absence of other toe(s), unspecified side (Z89.429); Type 2 diabetes mellitus with diabetic neuropathy, with long-term current use of insulin ([facility]); Body mass index [BMI] 50.0-59.9, adult (Z68.43); Type 2 diabetes mellitus with foot ulcer, with long-term current use of insulin ([facility]); 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.49); Status post amputation of lesser toe, unspecified laterality ([facility]); Arthritis of left foot; Acquired hallux valgus of left foot; Type 2 diabetes mellitus with hyperglycemia, with long-term current use of insulin ([facility]); Morbid obesity ([facility]) Start: 06-15-2023 End: 06-15-2023 ambulatory Luislibra Ortega Other [employer] Other Start: 06-15-2023 Telephone encounter Link Ortega [facility] Start: 06-09-2023 (DM) Diabetes Clementelibra Shannon [facility] Start: 06-09-2023 End: 06-09-2023 Discharged Recurring MD Natalie Hernandez [facility]: Start: 06-09-2023 End: 06-09-2023 ambulatory MD Natalie Hernandez Work Phone: [employer] Other Start: 06-09-2023 End: 06-09-2023 Patient encounter procedure MD Natalie Hernandez Work Phone: [facility] Physician Group- Start: 01-04-2023 (DM) Diabetes Tondra Mapus [facility] Start: 01-04-2023 End: 01-04-2023 ambulatory Tondra Mapus Other [employer] Other Start: 12-21-2022 End: 12-21-2022 ambulatory Tondra Mapus Other [employer] Other Start: 12-21-2022 Telephone encounter Tondra Mapus [facility] Start: 10-12-2022 ambulatory [facility] Selina [facility] Faci lity:H1 Start: 10-06-2022 End: 10-07-2022 ambulatory [facility] Facility:H1 Start: 10-01-2022 Encounter for prepro cedural cardiovascular examination [facility] Start: 10-01-2022 Encounter for prepro cedural laboratory examination [facility] Start: 09-30-2022 End: 10-01-2022 ambulatory [facility] Facility:H1 Start: 09-30-2022 End: 10-01-2022 Encounter for preprocedural laboratory examination [facility] Facility:H1 Start: 09-15-2022 End: 09-16-2022 ambulatory [facility] Facility:H1 Start: 09-10-2022 End: 09-10-2022 ambulatory Tondra Mapus Other [employer] Other Start: 09-10-2022 Telephone encounter Tondra Mapus [facility] Start: 08-24-2022 End: 08-25-2022 ambulatory [facility] Selina [facility] Facility:H1 Start: 08-10-2022 End: 08-10-2022 ambulatory Tondra Mapus Other [employer] Other Start: 08-10-2022 Telephone encounter Tondra Mapus [facility] Start: 08-03-2022 End: 08-04-[address] NATALIE HERNANDEZ Facility:H1 Start: 07-13-2022 End: 07-14-2022 ambulatory MARTELL NAVAS Facility:H1 Start: 06-30-2022 End: 07-01-2022 ambulatory PETER D HIGHLANDER Facility:H1 Start: 06-25-2022 (DM) Diabetes Tondra Mapus [facility] Start: 06-25-2022 End: 06-25-2022 ambulatory Tondra Mapus Other [employer] Other Start: 06-16-2022 End: 06-17-2022 ambulatory PETER [...] 02-18-2022 End: 02-18-2022 ambulatory Tondra Mapus Other [employer] Other Start: 02-18-2022 Telephone encounter Link Ortega [facility] Start: 02-09-2022 End: 02-10-2022 ambulatory PETER D HIGHLANDER Facility:H1 Start: 01-26-2022 End: 01-27-2022 ambulatory PETER D HIGHLANDER Facility:H1 Start: 01-13-2022 End: 01-14-2022 ambulatory PETER D HIGHLANDER Facility:H1 Start: 01-06-2022 (DM) Diabetes Tondra Shannon [facility] Start: 01-06-2022 End: 01-06-2022 ambulatory Tondra Shannon Other [employer] Other Start: 12-29-2021 End: 12-30-2021 ambulatory PETER [...] HIGHLANDER Facility:H1 Start: 10-23-2021 End: 10-24-2021 ambulatory [facility] Facility:H1 Start: 10-21-2021 End: 10-22-2021 ambulatory [facility] Facility:H1 Start: 10-20-2021 End: 10-21-2021 ambulatory [facility] Facility:H1 Procedures Date Procedure Procedure Detail Performing [...] post amputation of lesser toe, unspecified laterality ([facility]) Blossom Cody NP Work Phone: Plan of Treatment Date Care Activity Detail Author Start: 07-26-2025 Glaucoma screening Diabetes: Retinopathy Screening [facility] Start: 10-19-2024 End: 10-19-2024 Patient encounter procedure 10/19/2024 10:00 AM EDT Office Visit [facility] [address] [place] [id number] Maria Fernanda Olguin NP [address] [place] [address] [facility] Start: 07-19-2024 End: 07-19-2024 Patient encounter procedure 07/19/2024 9:30 AM EDT Office Visit [facility] [address] [place] [id number] Blossom Cody NP [address] [place] [address] [facility] Start: 04-26-2024 Hemoglobin A1c measurement Diabetes: Hemoglobin A1C [facility] Start: 04-19-2024 End: 04-19-2024 Patient encounter procedure [facility] Comment on above: Diabetic polyneuropathy associated with type 2 diabetes mellitus ([facility]/HCC) (Primary Dx); Wellness examination; Type 2 diabetes mellitus with neurological manifestation ([facility]/HCC); Essential hypertension; 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, subsequent encounter ([facility]/HCC); Dyslipidemia (CMS/HCC); Hypertriglyceridemia (CMS/HCC); Poorly controlled diabetes mellitus (CMS/HCC); Type 2 diabetes mellitus with hyperglycemia, with long-term current use of insulin ([facility]); Amputation of toe, traumatic, left, sequela ([facility]/HCC) Start: 03-24-2024 Urine screening for protein Diabetes: Urine Protein Screening [facility] Start: 03-15-2024 Influenza vaccination Influenza Vaccine (#1) [facility] Comment on above: Postponed from 01/09/2024 (Patient Refus ed) Start: 01-25-2024 End: 01-25-2024 Patient encounter procedure 01/25/2024 10:30 AM EDT Office Visit [facility] [address] [place] [id number] Blossom Cody NP [address] [place] [address] [facility] Start: 01-19-2024 Hemoglobin A1c measurement Diabetes: Hemoglobin A1C [facility] Start: 01-19-2024 End: 01-19-2024 Patient encounter procedure 01/19/2024 11:00 AM EDT Office Visit [facility] [address] [place] [phone] Blossom Cody NP [address] [place] [address] Diabetic polyneuropathy associated with type 2 diabetes mellitus ([facility]/HCC) (Primary Dx); Type 2 diabetes mellitus with neurological manifestation ([facility]/HCC); Essential hypertension; 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, subsequent encounter ([facility]); Type 2 diabetes mellitus with hyperglycemia, with long-term current use of insulin (CMS/[facility]); Dyslipidemia (CMS/HCC); Hypertriglyceridemia (CMS/HCC); Amputation of toe, traumatic, left, sequela (CMS/HCC); Vitamin B 12 deficiency [facility] Comment on above: Diabetic polyneuropathy associated with type 2 diabetes mellitus (CMS/HCC) (Primary Dx); 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); Essential hypertension; 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, subsequent encounter ([facility]/HCC); Type 2 diabetes mellitus with hyperglycemia, with long-term current use of insulin (CMS/HCC); Dyslipidemia (CMS/HCC); Hypertriglyceridemia (CMS/HCC); Amputation of toe, traumatic, left, sequela (CMS/HCC); Vitamin B 12 deficiency Start: 01-09-2024 Influenza vaccination Influenza Vaccine (#1) [facility] Start: 09-15-2023 End: 09-15-2023 Patient encounter procedure 09/15/2023 9:30 AM EDT Office Visit [facility] [address] [place] [address] Blossom Cody NP [address] [place] [address] [facility] Start: 09-07-2023 Hemoglobin A1c measurement Diabetes: Hemoglobin A1C [facility] Start: 07-26-2023 Glaucoma screening Diabetes: Retinopathy Screening [facility] Start: 07-07-2023 End: 07-07-2023 Patient encounter procedure 07/07/2023 9:00 AM EST Office Visit [facility] [address] [place] [address] [facility] Start: 06-16-2023 End: 06-16-2023 Patient encounter procedure 06/16/2023 11:00 AM EST Office Visit [facility] [address] [place] [address] Blossom Cody NP [address] [place] [address] Diabetic polyneuropathy associated with type 2 diabetes mellitus (CMS/HCC) (Primary Dx); Diabetic neuropathic arthropathy (CMS/HCC); 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); 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, sequela (CMS/HCC); Ulcer of foot due to type 2 diabetes mellitus ([facility]); Poorly controlled diabetes mellitus ([facility]); Type 2 diabetes mellitus with hyperglycemia, with long-term current use of insulin ([facility]); Vitamin B 12 deficiency; Hx of diabetic neuropathy; 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[facility]); Morbid obesity ([facility] Hypertriglyceridemia ([facility]) 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, sequela ([facility]); Ulcer of foot due to type 2 diabetes mellitus ([facility]); Poorly controlled diabetes mellitus ([facility]); Type 2 diabetes mellitus with hyperglycemia, with long-term current use of insulin ([facility]); Vitamin B 12 deficiency; Hx of diabetic neuropathy; 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[facility]); Morbid obesity ([facility] Hypertriglyceridemia ([facility]) AEROBIC CULTURE AEROBIC CULTURE Lab Routine 05/26/2024 6:16 PM [facility] BLOOD CULTURE 1 BLOOD CULTURE 1 Lab Routine 04/27/2024 6:10 AM [facility] BLOOD CULTURE 2 BLOOD CULTURE 2 Lab Routine 04/25/2024 1:00 PM [facility] BLOOD CULTURE 2 BLOOD CULTURE 2 Lab Routine 04/27/2024 6:24 AM [facility] BLOOD CULTURE 2 BLOOD CULTURE 2 Lab Routine 05/30/2024 12:28 PM [facility] Comprehensive metabo lic 1999 panel - Serum or Plasma [facility] Comprehensive metabo lic 1999 panel - Serum or Plasma [facility] Patient Education Diabetes and diet [facility] Work Phone: [facility] Immunizations Immunization Date Immunization Notes Care Provider [facility] 03-14-2024 influenza, seasonal, injectable, preservative free Blossom Cody NP Work Phone: [facility] 03-14-2024 influenza virus vacc ine, unspecified formulation Blossom Cody NP Work Phone: [facility] 07-05-2023 tetanus and diphther ia toxoids, adsorbed, preservative free, for adult use (2 Lf of tetanus toxoid and 2 Lf of diphtheria toxoid) Natalie Hernandez MD Work Phone: [facility] 03-24-2023 influenza, injectabl e, quadrivalent, preservative free Blossom Glo [employer] Work Phone: [facility] 03-24-2023 influenza virus vacc ine, unspecified formulation Natalie Hernandez MD Work Phone: [facility] 08-26-2021 tetanus and diphther ia toxoids, adsorbed, preservative free, for adult use (5 Lf of tetanus toxoid and 2 Lf of diphtheria toxoid) Blossomneto Lozoyael [employer] Work Phone: [facility] 03-28-2021 influenza, injectabl e, quadrivalent, preservative free Blossom Glo [employer] Work Phone: [facility] 02-13-2020 Influenza, injectabl e, [facility] [place] [facility] Kidney, preservative free, quadrivalent Blossom Glo [employer] F[employer] Work Phone: [facility] 02-22-2019 influenza, injectabl e, quadrivalent, preservative free Blossom Glo [employer] Work Phone: [facility] 02-07-2018 influenza, injectabl e, quadrivalent, preservative free Blossom Glo [employer] Work Phone: [facility] Payers Date Payer Category Payer Private Health Insurance [facility] [address] [id number] 2022 Unknown [id number] [id number] 2020 [facility] [id number] 1979 Unknown [id number] 2.16.840.1.252138.3.579. 2.593 1979 Unknown [id number] 2.16.840.1.896550.3.579. 2.593 1979 Unknown [id number] 2.16.840.1.437744.3.579. 2.593 1979 Unknown [id number] 2.16.840.1.838616.3.579. 2.593 1979 Unknown [id number] 2.16.840.1.705460.3.579. 2.593 1979 Unknown [id number] 2.16.840.1.463898.3.579. 2.593 1979 Unknown [id number] 2.16.840.1.924775.3.579. 2.593 1979 Unknown [id number] 2.16.840.1.306620.3.579. 2.593 1979 Unknown [id number] 2.16.840.1.144198.3.579. 2.593 1979 Unknown [id number] 2.16.840.1.013435.3.579. 2.593 1979 Unknown [id number] 2.16.840.1.672235.3.579. 2.593 1979 Unknown [id number] 2.16.840.1.644252.3.579. 2.593 1979 Unknown [id number] 2.16.840.1.713462.3.579. 2.593 1979 Unknown [id number] 2.16.840.1.239457.3.579. 2.593 1979 Unknown [id number] 2.16.840.1.302551.3.579. 2.593 1979 Unknown [id number] 2.16.840.1.867706.3.579. 2.593 1979 Unknown [id number] 2.16.840.1.358873.3.579. 2.593 1979 Unknown [id number] 2.16.840.1.714590.3.579. 2.593 1979 Unknown [id number] 2.16.840.1.382711.3.579. 2.593 1979 Unknown [id number] 2.16.840.1.416244.3.579. 2.593 1979 Unknown [id number] 2.16.840.1.633627.3.579. 2.593 1979 Unknown [id number] 2.16.840.1.635716.3.579. 2.593 1979 Unknown [id number] 2.16.840.1.060518.3.579. 2.593 1979 Unknown [id number] 2.16.840.1.744538.3.579. 2.593 1979 Unknown [id number] 2.16.840.1.476031.3.579. 2.593 1979 Unknown [id number] 2.16.840.1.638012.3.579. 2.593 1979 Unknown [id number] 2.16.840.1.967630.3.579. 2.593 1979 Unknown [id number] 2.16.840.1.275060.3.579. 2.593 1979 Unknown [id number] 2.16.840.1.557276.3.579. 2.593 1979 Unknown [id number] 2.16.840.1.218871.3.579. 2.593 1979 Unknown [id number] 2.16.840.1.900726.3.579. 2.593 1979 Unknown [id number] 2.16.840.1.070171.3.579. 2.593 1979 Unknown [id number] 2.16.840.1.428670.3.579. 2.593 1979 Unknown [id number] 2.16.840.1.623329.3.579. 2.593 1979 Unknown [id number] 2.16.840.1.236153.3.579. 2.593 1979 Unknown [id number] 2.16.840.1.140304.3.579. 2.593 1979 Unknown [id number] 2.16.840.1.249949.3.579. 2.593 1979 Unknown [id number] 2.16.840.1.523859.3.579. 2.593 1979 Unknown [id number] 2.16.840.1.686267.3.579. 2.593 1979 Unknown [id number] 2.16.840.1.591800.3.579. 2.593 1979 Unknown [id number] 2.16.840.1.537294.3.579. 2.593 1979 Unknown [id number] 2.16.840.1.817597.3.579. 2.1259 1979 Unknown [id number] 2.16.840.1.127718.3.579. 2.1259 1979 Unknown [id number] 2.16.840.1.989924.3.579. 2.1259 1979 Unknown [id number] 2.16.840.1.127089.3.579. 2.1259 1979 Unknown [id number] 2.16.840.1.446090.3.579. 2.1259 1979 Unknown [id number] 2.16.840.1.365849.3.579. 2.1259 1979 Unknown [id number] 2.16.840.1.266883.3.579. 2.1259 1979 Unknown [id number] 2.16.840.1.859802.3.579. 2.1259 1959 Unknown [id number] 2.16.840.1.865883.19 1959 Unknown [id number] 2.16.840.1.459122.19 Unknown [id number] 2.16.840.1.542980.3.579. 2.531 Unknown [id number] 2.16.840.1.436968.3.579. 2.531 Social History Date Type Detail Facility Unknown if ever smoked [employer] Other Start: 03-23-2023 End: 07-19-2024 Sex Assigned At [facility] Start: 12-21-2022 Tobacco smoking status [facility] Never smoked tobacco [facility] Start: 12-21-2022 Tobacco use and exposure Smokeless tobacco non-user [facility] Start: 05-18-2023 End: 07-19-2024 Alcohol intake Current drinker of alcohol (finding) [facility] Start: 03-23-2023 End: 05-18-2023 Alcohol intake [facility] Within the last year , have you been afraid of your partner or ex-partner? Patient refused [facility] Are you now , , , , never or living with a partner? Refused [facility] (I/We) worried whether (my/our) food would run out before (I/we) got money to buy more. DK or Refused [facility] Start: 1980 Sex Assigned At Not on file [facility] Start: 1980 Sex Assigned At Male F [facility] Start: 10-19-2023 End: 10-19-2023 Tobacco smoking status SCIS Ex-smoker (finding) [facility] Start: 06-14-2024 End: 08-21-2024 Sex Male (finding) [facility] Medical Equipment Procedure Code Equipment Code [...] 31 gauge x 5/16 syringe Start: 06-23-2023 Blood Sugar Diagnostic (Onetouch Verio Test Strips) strip Start: 01-26-2024 Insulin Syringe-Needle U-100 1 mL 31 gauge x 5/16 syringe Start: 08-09-2024 Pen Needle, Diab etic 32 gauge x 5/32 needle Start: 08-21-2024 blood sugar diagnostic (OneTouch Verio test strips) Start: 10-19-2023 End: 08-21-2024 Insulin Syringe-Needle U-100 (Bd Insulin Syringe Ultra-Fine) 1 mL 31 gauge x 5/16 syringe Start: 06-23-2023 End: 08-09-2024 Clinical Notes 05-10-2020 to 07-19-2024 Blossom Cody NP - 07/19/2024 9:30 AM EDT Note Date & Type Note Facility 07-19-2024 History of Presen t illness Narrative Images from the original note were not included. Subjective Patient ID: Trev Ontiveros is a 43 y.o. male who presents for Follow-up (Rt foot healing after multiple surgeries. ). HPI: Pt states right foot got infected after last appt. He went to ER and got admitted, had 3 surgeries. Was a huge wound , was in rehab place in [place] couldn't put weight on it for awhile. Had MRSA while there. Had IV ATB 4 times a day for [address] Nolasco in [place]. Was taking Vit D weekly in rehab. Had PT daily there. Now area is approx 50 cent size (medial lateral right foot). Sees Dr Feldman. Has been home for 2 weeks now. Blood sugars 120-160 fasting and after meals. Taking [facility]us 42-[facility] units. [facility]pt will clarify with endo at appt. No pain in foot right now. Has been able to put weight on it for past 2-3 weeks. Off work since week before X-mas, hopes to go back in approx 1 month. Sees Endo-has appt next month. Thinks last HgbA1c was 7.4 (done while having foot issue). Eye Dr and dentist last week. Mood is ok, first 2 weeks it was depressing being in rehab , doing better now. Non smoker. Occ alcohol ie light beer. NAD in diet Review of Systems Constitutional: Negative for appetite [...] for dizziness and headaches. Psychiatric/Behavioral: Mood is ok, sl down with everything going on-See HPI. Sleeping ok, not as good since home-had sleep aide in rehab. Trazadone 50mg tried, that didn't work, so took 100mg, which worked well. Pt is asking if he can get Rx Endocrine: See HPI 09/15/2023 9:33 AM 10/12/2023 9:45 AM 10/29/2023 9:37 AM 01/19/2024 11:00 AM 04/19/2024 9:47 AM 07/19/2024 9:22 AM 07/19/2024 9:57 AM Vitals BMI 52.4 kg/m2 52.4 kg/m2 51.82 kg/m2 52.21 kg/m2 50.03 kg/m2 BSA (m2) 2.95 m2 2.95 m2 2.94 m2 2.95 m2 2.89 m2 Systolic 146 136 128 140 138 Diastolic 84 78 72 84 80 Heart Rate 84 84 80 Height (in) 5' 11.5 5' 11.5 Weight (lb) 381 381 376.8 379.6 363.8 Visit Report Report Report Report Report Report Report Report Objective Physical Exam Vitals reviewed. Constitutional: General: He is not in acute distress. HENT: Ears: Comments: WNL, except mod cerumen left ear-declied removal will let shower water get in it. Nose: Nose normal. No rhinorrhea. Mouth/Throat: Mouth: [...] soft. Tenderness: There is no abdominal tenderness. Genitourinary: Penis: Normal. Musculoskeletal: Comments: Right lower extremity cast and walking boot. No lower leg edema Feet: Comments: Foot exam 10/29/[address] Moore, also sees Dr Feldman, and per pt Joshua does exam at each appt Lymphadenopathy: Cervical: [...] with type 2 diabetes mellitus (CMS/HCC) Comments: Last HgbA1c 7.4 in Jan (prior 9.7). Sees Joshua. 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 Seeing Dr Feldman, enc F/U per routine Poorly controlled diabetes mellitus (CMS/HCC): As above Dyslipidemia (CMS/HCC) Comments: Last LDL 69 per Endo 01/20/24-see report, on statin Hypertriglyceridemia (CMS/HCC) Comments: Last 219 in Jan 2024. Avoid sweets watch portions on carbs Essential hypertension Comments: taking Lisinopril 30mg daily Morbid obesity (CMS/HCC): Praise given for weight loss, enc to keep working on this Amputation of toe, traumatic, left, sequela (CMS/HCC) Comments: Saw Dr Moore and Dr Feldman Vitamin B 12 deficiency Comments: Vit B12 was 374 on lab is Jan Depressed mood - traZODone (Desyrel) 100 MG tablet; Take 1 tablet (100 mg) by mouth as needed at bedtime for sleep Insomnia, unspecified type: Pt requested Rx for Trazodone which helped his sleep and can help with mood. I called pt after appt and LM that we could do sleep study to further assess sleep if interested, pt is to let me know if wants to do one - traZODone (Desyrel) 100 MG tablet; Take 1 tablet (100 mg) by mouth as needed at bedtime for sleep F/U 3 months for Diabetes, sooner if concerns (had Wellness in Apr 2024) documented in this encounter [facility] 06-14-2024 Evaluation note Diagnosis Onset Date Resolution Diabetes acute June 14, 2024 2:39pm MDRO (multiple drug resistant organisms) resistance acute June 14 2:39pm Receiving intravenous antibiotic treatment as outpatient acute June 14 2:39pm Wound of right foot acute Febru 2024 2:39pm BMI 50.0-59.9, adult acute Apri l 2024 8:51am Dietary counseling and surveillance acute August 21, 2024 8:51am Hypertension acute August 21, 2024 8:51am Mixed hyperlipidemia acute Apri l 2024 8:51am Type 2 diabetes mellitus with hyperglycemia acute August 21, 2 025 8:51am Wound of left foot acute August 21, 2024 8:51am Wound of right foot acute August 21, 2024 8:51am [facility] Work Phone: [phone] History of Present illness Narrative* Blossom Cody, LIN[employer] F[employer]DER - 04/19/2024 10:00 AM EST Images from the original note were not [...] sugars 120-150. No low sugars. Taking Lantus 42- 46 units daily and coverage. Last eye exam [...] of toe of right foot, subsequent encounter ([facility]) Comments: Sees Dr Reynolds Dyslipidemia ([facility]) Comments: Lipids: Chol 126, Trig 219, HDL 25, LDL 69, ratio 5 per Endo lab in jan Hypertriglyceridemia ([facility]) Comments: See above last 290 in Mar 2023-so better. Avoid sweets. enc fruit and elliot veget, lean protein nuts,exercise Poorly controlled diabetes mellitus ([facility]) Type 2 diabetes mellitus with hyperglycemia, with long-term current use of insulin ([facility]): See Endo Amputation of toe, traumatic, left, sequela ([facility]): Sees Podiatry Diabetic autonomic neuropathy associated with type 2 diabetes mellitus ([facility]: See above Acquired hallux valgus, unspecified laterality: Sees Podiatry Morbid obesity ([facility]): See above Vitamin B12 deficiency: 374 on recent lab in Jan Lipoprotein deficiency disorder F/U in July or August for recheck-hypertension/Diabetes, sooner if concerns documented in this [facility]10-21-2024 Telephone encounter Note* Telephone Encounter - Blossom Cody NP - 02/28/2024 11:53 AM EDT [id number] Miscellaneous Notes* Telephone Encounter - Blossom Cody NP - 02/28/2024 11:53 AM EDT Rx sent documented in this [facility]09-11-2024 History of Present illness Narrative* Blossom Cody NP - 01/19/2024 11:00 AM EDT Images from the original note were not [...] 40 for awhile. Needs Statin refill. Saw [facility] in July Review of Systems Constitutional: Positive [...] polyneuropathy associated with type 2 diabetes mellitus ([facility]/HCC) Comments: HgbA1c 9.7 in October. He sees [...] of toe of right foot, subsequent encounter ([facility]/HCC): Sees Dr Feldman and Dr Moore Type [...] sooner if concerns. PVU documented in this [facility]08-22-2024 Telephone encounter Note* Telephone Encounter - Blossom Cody NP - 12/30/2023 4:44 PM EDT Rx sent [facility] [id number] Miscellaneous Notes* Telephone Encounter - Blossom Cody NP - 12/30/2023 4:44 PM EDT Rx sent documented in this [facility]02-07-2024 History of Present illness Narrative* Blossom Cody NP - 06/16/2023 11:00 AM EST Images from the original note were not included. Subjective Patient ID: Trev Ontiveros is a 42 y.o. male who presents for Diabetes (Pt saw endocrinology last week and has his hgbA1c. HgbA1c was 8.2 and his results and notes are under media from that appt on 06-09-22). Diabetes Pertinent negatives for hypoglycemia include no dizziness or headaches. Associated symptoms includefatigue. Pertinent negatives for diabetes include no chest pain. HPI: As above. Fingerstick fasting sugars ranging from 120-170's. Sees oJshua in [place], kyara appt September 13 with [...] cut it off 05/17/23-Dr Feldman. Took stiches outlast week, has appt next for recheck. Was in a cast for 3 weeks, now has surgical shoe on. Hasbeen off work, is supposed to go back on the , needs release from Dr Feldman. No exercise since foot issue. Has eye exam schedule end of July goes yearly- Dr Heck and sees Dentist every 6months-has appt in September. Feels like some nasal congestion since yesterday, took cold and sinus tab this AM. No nasal drng, slight cough. Rare salt use ie on potatoes or popcorn, some salty foods ie pot atoe chips, peanuts, pepporni, cheese, turkey or ham. [...] polyneuropathy associated with type 2 diabetes mellitus ([facility]) Comments: Sees Joshua, last HgbA1c 8.11 May 2023 (prior 8.9 end of December). Pt asked me why we can't just take care of his Diabetes, so he doesn't have to go to [place]. I told him because his sugars are [...] DM care again. 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 Now has left foot toe amputated. Per pt toe is healing Ulcer of foot due to type 2 diabetes mellitus ([facility]): Hx of Poorly controlled diabetes mellitus ([facility]): Last HgbA1c 8.2 Type 2 diabetes mellitus with hyperglycemia, with long-term current use of insulin ([facility]): As above Vitamin B 12 deficiency Comments: Last WNL at 351 Hx of diabetic neuropathy: Hx of 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[facility]): Hx of Morbid obesity ([facility]) Comments: Enc healthy diet, watch sweets carbs. 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 Discussed seeing weight loss provider or seeing someone about gastric bypass-pt declined both. He is not interested in this Type 2 diabetes mellitus with foot ulcer, with long-term current use of insulin ([facility]): Hx of (no ulcer at this time, bu lit recent amputation of 4th toe 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.49): Hx of Status post amputation of lesser toe, unspecified laterality ([facility]): 4th toe- has appt for followup with Dr Feldman Arthritis of left foot: Hx of Acquired hallux valgus of left foot: Hx of Type 2 Diabetes mellitus with hyperglycemia with halfway current use of insulin ([facility]): Hx of Morbid obesity: See above [id number] Evaluation note* Encounter Date Diagnosis Assessment Notes Treatment Notes Treatment Clinical Notes Jun, Type 2 diabetes mellitus with hyperglycemia (ICD-10 - E11.65) [employer] Other 01-31-2024 Evaluation note* Encounter Date Diagnosis [...] f/u with pcp for further recommendation May, [facility] current use of insulin (ICD-10 - Z79.4) May, Vitamin B 12 deficiency (ICD-10 - E53.8) 04/01 vit b 12 351 at target May, BMI 50.0-59.9, adult (ICD-10 - Z68.43) see above May, Amputation toe (ICD-10 - Z89.429) Keep f/u with Dr. Feldman May, Cracked skin on feet (ICD-10 - R23.4) keep f/u with Dr. Feldman [employer] Other 08-28-2023 Evaluation note* Encounter Date Diagnosis [...] for Lispro/ozempic 0.5mg sent to [facility] [place] 01/04/23 7. Prescriptions will not be filled [...] (hypertension) (ICD-10 - I10) on julissa Dec, [facility] current use of insulin (ICD-10 - Z79.4) Dec, Vitamin B 12 deficiency (ICD-10 - E53.8) 12/30 vit b 12 335 at target Dec, BMI 50.0-59.9, adult (ICD-10 - Z68.43) see above Dec, Wound of foot (ICD-10 - S91.309A) pt has apt scheduled with Dr. Francia keenan [employer] Other 05-30-2023 NotePROCEDURE: XR FOOT LT MIN [...] Electronically authenticated by: FRANCO FRANCES Date: 2022-10-06 14:13[facility]05-04-2023 Evaluation note* Encounter Date Diagnosis Assessment Notes Treatment Notes Treatment Clinical Notes September, Type 2 diabetes mellitus with hyperglycemia (ICD-10 - E11.65) [employer] Other 04-17-2023 NotePROCEDURE: XR FOOT LT MIN [...] Electronically authenticated by: FERN SOSA Date: 2022-08-24 12:46[facility]02-16-2023 Evaluation note* Encounter Date Diagnosis Assessment Notes Treatment Notes Treatment Clinical Notes Jun, Type 2 diabetes mellitus with hyperglycemia (ICD-10 - E11.65) 1. Uncontrolled, a Type 2 diabetes with A1c of 8.2% 2. Blood glucose levels above target. Discussed with pt restarting ozempic, he had s/e from higher dose ozempic 1mg and concern with cost works at [employer]. Pt agreeable to starting sample ozempic 0.5mg [...] issues. 6. Prescriptions: Syringes/ozempic/st eglatro sent to [facility] in [place] 06/25/22 7. Prescriptions will not be filled [...] (hypertension) (ICD-10 - I10) on julissa Jun, [facility] current use of insulin (ICD-10 - Z79.4) Jun, Vitamin B 12 deficiency (ICD-10 - E53.8) 12/28 vit b 12 423 at target Jun, BMI 50.0-59.9, adult (ICD-10 - Z68.43) [employer] Other 02-07-2023 NotePROCEDURE: XR ANKLE LT MIN [...] Electronically authenticated by: GISSEL RUBIO Date: 2022-06-16 16:33[facility]02-07-2023 NotePROCEDURE: XR ANKLE LT MIN 3 [...] Electronically authenticated by: GISSEL RUBIO Date: 2022-06-16 16:33[facility]08-30-2022 Evaluation note* Encounter Date Diagnosis Assessment [...] (hypertension) (ICD-10 - I10) on julissa Dec, termination clerk current use of insulin (ICD-10 - Z79.4) Dec, Vitamin B 12 deficiency (ICD-10 - E53.8) 12/28 vit b 12 423 at target Dec, BMI 45.0-49.9, adult (ICD-10 - Z68.42) 14 pound weight loss from last visit, continue with weight loss efforts [employer] Other 01-01-2021 History general Narrative - Reported* Type Description Date Medical History type II diabetes Medical History hypertension Medical History hyperlipidemia Medical History covid 05/2020 Surgical History Ulcer on left great toe X2 Surgical History Partial amputation Right great toe 01/2021 Surgical History All toes right foot amputated 5 /2022 Hospitalization History Toe infection 2017 [employer] Other 01-01-2021 History general Narrative - Reported* Type Description Date Medical History type II diabetes Medical History hypertension Medical History hyperlipidemia Medical History covid 05/2020 Surgical History Ulcer on left great toe X2 Surgical History Partial amputation Right great toe 01/2021 Surgical History All toes right foot amputated Surgical History Left great toe corre ctive surgery with Dr. Feldman in [place] 10/2022 Hospitalization History Toe infection 2017 [employer] Other Chikb complaint+Reason for visit Narrative* Chief Complaint no meter Reason for Visit BMI 50.0-59.9, adult Dietary counseling and surveillance Hypertension Mixed hyperlipidemia Type 2 diabetes mellitus with hyperglycemia [facility] Work Phone: Chice complaint+Reason for visit Narrative* Chief Complaint meter Reason for Visit BMI 50.0-59.9, adult Dietary counseling and surveillance Hypertension Mixed hyperlipidemia Type 2 diabetes mellitus with hyperglycemia Wound of left foot Wound of right foot [facility] Work Phone: Evaluation noteNo InformationNortGuthrie [facility] [email or web address] Other Evaluation note* Diagnosis Diabetic polyneuropathy associated with type 2 diabetes mellitus ([facility])- Primary Diabetic neuropathic arthropathy ([facility]) Type II or unspecified type diabetes mellitus with neurological manifestations, not stated as uncontrolled Type 2 diabetes mellitus with neurological manifestation ([facility]) 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, sequela ([facility]) Ulcer of foot due to type 2 diabetes mellitus ([facility]) Vitamin B 12 deficiency Other B-complex deficiencies Hx of diabetic neuropathy 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[facility]) Lipoprotein deficiencies Hypertriglyceridemia ([facility]) Pure hyperglyceridemia 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, 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) Essential hypertension Unspecified essential hypertension Nasal congestion Other diseases of nasal cavity and sinuses Type 2 diabetes mellitus with diabetic autonomic neuropathy, with long-term current use of insulin ([facility]) termination clerk (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 (Z79.4) Acquired absence of other toe(s), unspecified side (Z89.429) Type 2 diabetes mellitus with diabetic neuropathy, with long-term current use of insulin ([facility]) Body mass index [BMI] 50.0-59.9, adult (Z68.43) Type 2 diabetes mellitus with foot ulcer, with long-term current use of insulin ([facility]) 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.49) Status post amputation of lesser toe, unspecified laterality ([facility]) Arthritis of left foot Acquired hallux valgus of left foot Type 2 diabetes mellitus with hyperglycemia, with long-term current use of insulin ([facility]) Morbid obesity ([facility]) Morbid obesity documented in this encounter [facility] HealthcareEvaluation noteNo assessment information availableParkwood Hospital Work Phone: Evaluation note* Diagnosis Onset Date Resolution Status BMI 50.0-59.9, adult acute Dietary counseling and surveillance acute Hypertension acute Mixed hyperlipidemia acute Type 2 diabetes mellitus with hyperglycemia [facility] Work Phone: Evaluation note* Diagnosis Onset Date Resolution Status BMI 50.0-59.9, adult acute Dietary counseling and surveillance acute Hypertension acute Mixed hyperlipidemia acute Type 2 diabetes mellitus with hyperglycemia acute Wound of left foot acute Wound of right foot acute [facility] Work Phone: Evaluation note* Diagnosis Pure hyperglyceridemia ([facility]) Pure hyperglyceridemia documented in this encounter [facility] HealthcareEvaluation note* Diagnosis Diabetic polyneuropathy associated with type 2 diabetes mellitus ([facility])- Primary Type 2 diabetes mellitus with neurological manifestation ([facility]) Essential hypertension Unspecified essential hypertension 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, subsequent encounter ([facility]) Type 2 diabetes mellitus with hyperglycemia, with long-term current use of insulin ([facility]) Dyslipidemia ([facility]) Other and unspecified hyperlipidemia Hypertriglyceridemia ([facility] Pure hyperglyceridemia Vitamin B 12 deficiency Other B-complex deficiencies Pure hyperglyceridemia ([facility]) Pure hyperglyceridemia documented in this encounter [facility] HealthcareEvaluation note* Diagnosis Diabetic polyneuropathy associated with type 2 diabetes mellitus ([facility])- Primary Wellness examination Type 2 diabetes mellitus with neurological manifestation ([facility]) Essential hypertension Unspecified essential hypertension 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, subsequent encounter ([facility]) Dyslipidemia ([facility] Other and unspecified hyperlipidemia Hypertriglyceridemia ([facility]) Pure hyperglyceridemia Poorly controlled diabetes mellitus ([facility]) Type II or unspecified type diabetes mellitus without mention of complication, not stated as uncontrolled Type 2 diabetes mellitus with hyperglycemia, with long-term current use of insulin ([facility]) Diabetic autonomic neuropathy associated with type 2 diabetes mellitus ([facility]) Type II or unspecified type diabetes mellitus with neurological manifestations, not stated as uncontrolled Acquired hallux valgus, unspecified laterality Morbid obesity ([facility]) Morbid obesity Vitamin B 12 deficiency Other B-complex deficiencies 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[facility]) Lipoprotein deficiencies documented [facility] Diagnosis Essential hypertension Unspecified essential hypertension documented [facility] this encounter [facility] Diagnosis Diabetic polyneuropathy associated with type 2 diabetes mellitus ([facility])- Primary Type 2 diabetes mellitus with neurological manifestation ([facility]) 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, sequela ([facility]) Type 2 diabetes mellitus with hyperglycemia, with long-term current use of insulin ([facility]) Ulcer of right foot, unspecified ulcer stage ([facility]) ([facility]) Poorly controlled diabetes mellitus ([facility]) Type II or unspecified type diabetes mellitus without mention of complication, not stated as uncontrolled Dyslipidemia ([facility]) Other and unspecified hyperlipidemia Hypertriglyceridemia ([facility]) Pure hyperglyceridemia Essential hypertension Unspecified essential hypertension Morbid obesity ([facility]) Morbid obesity Vitamin B 12 deficiency Other B-complex deficiencies Depressed mood Insomnia, unspecified type documented in this encounter [facility] Summary [...] refered by Dr feldman June 14 2:39pm Chief Complaint Admit Date refered by Dr feldman June 14 2:39pm 3 month f./u August 21, 2024 8:5 1am Reason for Visit Admit Date Diabetes June 14, 2024 2 :39pm MDRO (multiple drug resistant organisms) resistance June 14, 2024 2:39pm Receiving intravenous antibiotic treatme nt as outpatient June 14, 2024 2:39pm Wound of right foot June 14, 2024 2 :39pm BMI 50.0-59.9, adult August 21, 2024 8: 51am Dietary counseling and surveillance Apri l 2024 8:51am Hypertension August 21, 2024 8:5 1am Mixed hyperlipidemia August 21, 2024 8: 51am Type 2 diabetes mellitus with hyperglyce konrad August 21, 2024 8:51am Wound of left foot August 21, 2024 8:5 1am Wound of right foot August 21, 2024 8:5 1am Additional Source Comments (unrecognized sect ion and content) No Status Records FoundNo Status Records FoundNo Status Records FoundNo Status Records Found INFORMATION SOURCE (unrecogn ized section and content) DATE CREATED AUTHOR 08/27/2021 [facility] dical Specialist DATE CREATED AUTHOR AUTHOR'S ORGANIZ ATION 10/17/2022 [facility] DATE CREATED AUTHOR AUTHOR'S ORGANIZ ATION 04/29/[address] [facility] DATE CREATED AUTHOR AUTHOR'S ORGANIZ ATION 07/21/2024 [facility] dical Specialists EPIC REASON FOR VISIT [...] come over tomorrow to have them done. Reason Comments Follow-up Rt foot healing afte r multiple surgeries. Care Teams (unrecognized sec tion and content) Team Status: Active Member Role Status Dates Natalie Hernandez MD Primary Care Provider Active Team Status: Active Member Role Status Dates Natalie Hernandez MD Primary Care Provider Active Start: May 30, 2024 Zain Haddad DO Attending Provider Active Sta rt: May 30, 2024 Team Status: Inactive Member Role Status Dates Natalie Hernandez MD Primary Care Provider Active Start: June 14, 2024 End: June 14, 2024 Jun Nolasco MD Attending Provider Active Sta rt: June 14, 2024 End: June 14, 2024 Team Status: Inactive Member Role Status Dates Natalie Hernandez MD Primary Care Provider Active Start: August 21, 2024 End: August 21, 2024 Link Ortega APRN Attending Provider Active Start: August 21, 2024 End: August 21, 2024 Team Status: Active Member Role Status Sarahi Hernandez MD Primary Care Provider Active Team Status: Inactive Member Role Status Sarahi [...] January 26, 2024 End: January 26, 2024 Risk Adjustment Specialist Relationship Specialty Start Date End Date Natalie Hernandez MD [address] [place] [address] PCP - General Family Medicine 09/15/22 Risk Adjustment Specialist Relationship Specialty Start Date End Date Natalie Hernandez MD [address] [place] [address] PCP - General Family Medicine 09/15/22 Team [...] October 19, 2023 End: October 19, 2023 Risk Adjustment Specialist Relationship Specialty Start Date End Date Natalie Hernandez MD [address] [place] [address] PCP - General Family Medicine 09/15/22 Blossom Cody NP [address] [place] [address] Nurse Practitioner Family Medicine 01/19/24 Risk Adjustment Specialist Relationship Specialty Start Date End Date Natalie Hernandez MD [address] [place] [address] PCP - General Family Medicine 09/15/22 Blossom Cody NP [address] [place] [address] Nurse Practitioner Family Medicine 01/19/24 Risk Adjustment Specialist Relationship Specialty Start Date End Date Natalie Hernandez MD [address] [place] [address] PCP - General Family Medicine 09/15/22 Blossom Cody NP [address] [place] [address] Nurse Practitioner Family Medicine 01/19/24 Risk Adjustment Specialist Relationship Specialty Start Date End Date Natalie Hernandez MD [address] [place] [address] PCP - General Family Medicine 09/15/22 Blossom Cody NP [address] [place] [address] Nurse Practitioner Family Medicine 01/19/24 Risk Adjustment Specialist Relationship Specialty Start Date End Date Natalie Hernandez MD [address] [place] [address] PCP - General Family Medicine 09/15/22 Risk Adjustment Specialist Relationship Specialty Start Date End Date Natalie Hernandez MD [address] [place] [address] PCP - General Family Medicine 09/15/22 Risk Adjustment Specialist Relationship Specialty Start Date End Date Natalie Hernandez MD [address] [place] [address] PCP - General Family Medicine 09/15/22 Blossom Cody NP [address] [place] [address] Nurse Practitioner Family Medicine 01/19/24 Risk Adjustment Specialist Relationship Specialty Start Date End Date Natalie Hernandez MD [address] [facility] [place] [address] PCP - General Family Medicine 09/15/22 Blossom Cody NP [address] [facility] [place] [address] Nurse Practitioner Family Medicine 01/19/24 Risk Adjustment Specialist Relationship Specialty Start Date End Date Natalie Hernandez MD [address] [facility] [place] [address] PCP - General Family Medicine 09/15/22 Blossom Cody NP [address] [place] [address] Nurse Practitioner Family Medicine 01/19/24 Team Status: Active Member Role Status Dates Natalie Hernandez MD Primary Care Provider Active Start: May 30, 2024 Zain Haddad DO Attending Provider Active Sta rt: May 30, 2024 Team Status: Inactive Member Role Status Dates Natalie Hernandez MD Primary Care Provider Active Start: August 21, 2024 End: August 21, 2024 Link Ortega APRN Attending Provider Active Start: August 21, 2024 End: August 21, 2024 Goals (unrecognized section and content) Goals [...] BE BASED ON THE PRIMARY CLINICAL RECORDS. [facility]. provides no warranty or guarantee of the accuracy or completeness of information in this document.
== END 2024-08-22 14:48 | disposition home or self-care (01) ==
LOC: WC 14:47
PROVIDERS: PCP Family Medicine; Visit Provider Physician Assistant
DX: E11.621 Type 2 diabetes mellitus with foot ulcer (principal); L97.412 Non-pressure chronic ulcer of right heel and midfoot with fat layer exposed
CPT/HCPCS: A6213; G0463

== ENCOUNTER 2024-09-01 10:51 | Outpatient (OUT) | payer OTHER, SELFPAY | END 2024-09-01 10:52 | disposition home or self-care (01) | LOC: WC 10:51 | PROVIDERS: PCP Family Medicine; Visit Provider Podiatrist Foot & Ankle Surgery | DX: E11.621 Type 2 diabetes mellitus with foot ulcer (principal); L97.412 Non-pressure chronic ulcer of right heel and midfoot with fat layer exposed | CPT/HCPCS: G0463 ==

== ENCOUNTER 2024-09-07 12:53 | Outpatient (OUT) | payer OTHER, SELFPAY | END 2024-09-07 12:54 | disposition home or self-care (01) | LOC: WC 12:53 | PROVIDERS: PCP Family Medicine; Visit Provider Physician Assistant | DX: E11.621 Type 2 diabetes mellitus with foot ulcer (principal); L97.412 Non-pressure chronic ulcer of right heel and midfoot with fat layer exposed | CPT/HCPCS: G0463 ==

== ENCOUNTER 2024-09-12 10:55 | Outpatient (OUT) | payer OTHER, SELFPAY | END 2024-09-12 10:56 | disposition home or self-care (01) | LOC: WC 10:55 | PROVIDERS: PCP Family Medicine; Visit Provider Physician Assistant | DX: E11.621 Type 2 diabetes mellitus with foot ulcer (principal); L97.412 Non-pressure chronic ulcer of right heel and midfoot with fat layer exposed | CPT/HCPCS: G0463 ==

== ENCOUNTER 2024-09-20 11:20 | Outpatient (OUT) | payer OTHER, SELFPAY | END 2024-09-20 11:21 | disposition home or self-care (01) | LOC: WC 11:21 | PROVIDERS: PCP Family Medicine; Visit Provider Physician Assistant | DX: E11.621 Type 2 diabetes mellitus with foot ulcer (principal); L97.412 Non-pressure chronic ulcer of right heel and midfoot with fat layer exposed | CPT/HCPCS: G0463 ==

== ENCOUNTER 2024-10-04 11:43 | Outpatient (OUT) | payer OTHER, SELFPAY ==
--- OUTSIDE RECORDS SUMMARY | 2023-05-17 04:30 | XMS_ITS ---
Author Organization [facility] in [place] Address [address] [place] [address] Care Team Providers Care Biometric Screener Name Role Phone Natalie Ryan Primary Care Provider Jesus Dai [phone] REASON FOR VISIT wound - 4th digit amputation Problems Problem Type SNOMED Code ICD Code Onset Dates Problem Status W/U Status Risk Notes Problem Polyneuropathy due to type 2 diabetes mellitus (324523145) Diabetes mellitus with polyneuropathy (E11.42) Active confirmed Problem Acute osteomyelitis of ankle and/or foot (906494869) Acute hematogenous osteomyelitis of left foot (M86.072) Active confirmed Encounters Encounter Location Date Provider Diagnosis [facility] [address] [place] [id number] 05/17/2023 Jesus Feldman Plan Of Treatment No Information Progress Notes * MIKE, Trev BDOB: 0 (43 yo M)Acc No.[id number]:05/17/2023 UNLOCKED PROGRESS NOTE Patient: Trev REDDY Provider: Boris Feldman DPM, MS :1980 A ge:42 Y S ex:Male Date:05/17/2023 Address:[address] [place] [id number] Pcp:Natalie Ryan Check Out:01:02 PM EST * * Electronic signature of Rolando Feldman DPM on 10/04/2024 at 11:45 AM EDT Sign off status: Pending Visit Status: C HK (Check Out) * Provider: Boris Feldman DPM, MS Date: 0 05/17/2023 Generated for Benito ceja/Yoshi/Amor on: 0 10/04/2024 11:45 AM EDT
--- OUTSIDE RECORDS SUMMARY | 2024-04-26 04:00 | XMS_ITS ---
Author Organization [facility] in [place] Address [address] [place] [address] Care Team Providers Care Matchbook Assembler Name Role Phone Natalie Ryan Primary Care Provider Jesus Dai [phone] REASON FOR VISIT wound - RT foot I&D Encounters Encounter Location Date Provider Diagnosis THE [address] [address] 04/26/2024 Jesus Feldman Plan Of Treatment No Information Progress Notes * Trev MCKEON BDOB: 0 (43 yo M)Acc No.[id number]:04/26/2024 UNLOCKED PROGRESS NOTE Patient: Trve REDDY Provider: Boris Feldman DPM, MS :1980 A ge:43 Y S ex:Male Date:04/26/2024 Address:[address] [place], [place] [phone] Pcp:Natalie Ryan Check Out:01:07 PM EST * * Electronic signature of Rolando Feldman DPM on 10/04/2024 at 11:45 AM EDT Sign off status: Pending Visit Status: Isiah HK (Check Out) * Provider: Boris Feldman DPM, MS Date: 06/27/2023 Generated for Printi ng/Faxing/eTransmitting on: 0 10/04/2024 11:45 AM EDT
--- OUTSIDE RECORDS SUMMARY | 2024-04-28 04:30 | XMS_ITS ---
Author Organization [facility] in [place] Address [address] [place] [address] Care Team Providers Care Asphalt Engineer Name Role Phone Natalie Ryan Primary Care Provider Jesus Dai [phone] REASON FOR VISIT wound - I&D Encounters Encounter Location Date Provider Diagnosis [facility] [address] [place] [address] 04/28/2024 Jesus Feldman Plan Of Treatment No Information Progress Notes * MIKE, Trev BDOB: 0 (43 yo M)Acc No.[id number]:04/28/2024 UNLOCKED PROGRESS NOTE Patient: Trev REDDY Provider: Boris Feldman DPM, MS :1980 A ge:43 Y S ex:Male Date:04/28/2024 Address:[address] [place], [place] [id number] Pcp:Natalie Ryan Check Out:01:10 PM EST * * Electronic signature of Rolando Feldman DPM on 10/04/2024 at 11:46 AM EDT Sign off status: Pending Visit Status: Isiah HK (Check Out) * Provider: Boris Feldman DPM, MS Date: 1 06/29/2023 Generated for [place] ng/Faleonciog/eTransmitting on: 0 10/04/2024 11:46 AM EDT
--- OUTSIDE RECORDS SUMMARY | 2024-10-04 11:46 | XMS_ITS | Encounter Summary ---
Author Organization [facility] Address [address] [place] [address] Care Team Providers Care Press Assistant And Feeder Name Role Phone Natalie Ryan MD Primary Care Provider [phone] Blossom Cody PRIZE JACKER Unavailable [phone] Encounter Details Date Type Department Care Team ([facility] Contact Info) Description 05/19/2024 Abstract [facility] [address] [place] [address] Unallocated, Noms Provider, [address] [place], [place] [id number] Social History Tobacco Use Types Packs/Day Years Used Date Smoking Tobacco: Never Smokeless Tobacco: Never Alcohol Use Standard Drinks/Week Comments Yes 4 (1 standard drink = 0.6 oz pur e alcohol) Humiliation, Afraid, Rape, and Kick questionnair e Answer Date Recorded Within the last year, have y ou been afraid of your partner or ex-partner? Patient declined 03/23/2023 Within the last year, have y ou been humiliated or emotionally abused in other ways by your partner or ex-partner? Patient declined 03/23/2023 Within the last year, have y ou been kicked, hit, slapped, or otherwise physically hurt by your partner or ex-partner? Patient declined 03/23/2023 Within the last year, have y ou been raped or forced to have any kind of sexual activity by your partner or ex-partner? Patient declined 03/23/2023 Social Connection and Isolat ion Panel [NHANES] Answer Date Recorded In a typical week, how many times do you talk on the phone with family, friends, or neighbors? Twice a week 03/23/2023 How often do you get togethe r with friends or relatives? Twice a week 03/23/2023 How often do you attend chur ch or spiritism services? More than 4 times per year 03/23/2023 Do you belong to any clubs o r organizations such as shinto groups, unions, fraternal or athletic groups, or school groups? Patient declined 03/23/2023 How often do you attend meet ings of the clubs or organizations you belong to? Patient declined 03/23/2023 Are you , , di vorced, , never , or living with a partner? Patient declined 03/23/2023 AUDIT-C Answer Date Recorded Q1: How often do you have a drink containing alc ohol? Patient declined 03/23/2023 Q2: How many drinks containi ng alcohol do you have on a typical day when you are drinking? Patient declined 03/23/2023 Q3: How often do you have si x or more drinks on one occasion? Patient declined 03/23/2023 Overall Financial Resource Strain (CARDIA) Answe r Date Recorded How hard is it for you to pa y for the very basics like food, housing, medical care, and heating? Patient declined 03/23/2023 Hunger Vital Sign Answer Date Recorded Within the past 12 months, y ou worried that your food would run out before you got the money to buy more. Patient declined Within the past 12 months, t he food you bought just didn't last and you didn't have money to get more. Patient declined PRAPARE - Transportation Answer Date Re corded In the past 12 months, has l ack of transportation kept you from medical appointments or from getting medications? Patient declined 03/23/2023 In the past 12 months, has l ack of transportation kept you from meetings, work, or from getting things needed for daily living? Patient declined 03/23/2023 Housing Stability Vital Sign Answer Christiano e Recorded In the last 12 months, was t here a time when you were not able to pay the mortgage or rent on time? Patient refused 03/23/20 23 Number of Places Lived in the Last Year Not on f ile 03/23/2023 In the last 12 months, was t here a time when you did not have a steady place to sleep or slept in a care home (including now)? Patient refused 03/23/2023 Sex and Gender Information Value Date Recorded Sex Assigned at Not on file Legal Sex Male 6:33 PM EDT Gender Identity Not on file Sexual Orientation Not on file documented as of this encounter Plan of Treatment Upcoming Encounters Date Type Department Care Team (Late st Contact Info) Description 10/19/2024 10:00 AM EDT Office Visit [facility] [address] [place] [id number] Maria Fernanda Olguin NP [address] [place] [address] documented as of this encounter Visit Diagnoses Not on filedocumented in this encounter Care Teams Press Assistant And Feeder Relationship Specialty Start Date End Date Natalie Ryan MD [address] [place] [address] PCP - General Family Medicine 09/15/22 Blossom Cody NP [address] [place], [place] [id number] Nurse Practitioner Family Medicine 01/19/24 documented as of this encounter
--- OUTSIDE RECORDS SUMMARY | 2024-10-04 11:46 | XMS_ITS | Encounter Summary ---
Author Organization [facility] Address [address] [place] [address] Care Team Providers Care Distribution Center Manager Name Role Phone Natalie Ryan MD Primary Care Provider [phone] Blossom Cody MANAGER JAVA Unavailable [phone] Encounter Details Date Type Department Care Team ([facility] Contact Info) Description 09/20/2023 [facility] [address] [place] [phone] Chidi Moore, DPM [address] [place], [place] [id number] Social History Tobacco Use Types Packs/Day Years [...] often do you attend chur ch or jewish services? More than 4 times per year 03/23/2023 Do you belong to any clubs o r organizations such as yazdanism groups, unions, fraternal or athletic groups, or [...] mortgage or rent on time? Patient refused 11/14/20 23 Number of Places Lived in the Last Year Not on f ile 03/23/2023 In the last 12 months, was t here a time when you did not have a steady place to sleep or slept in a long-term (including now)? Patient refused 03/23/2023 Sex and [...] EDT Office Visit [facility] [address] [place] [phone] Maria Fernanda Olguin NP [address] [place] [address] documented as of this encounter Visit Diagnoses Not on filedocumented in this encounter Care Teams Distribution Center Manager Relationship Specialty Start Date End Date Natalie Ryan MD [address] [place] [address] PCP - General Family Medicine 09/15/22 Blossom Cody NP [address] [place] [address] Nurse Practitioner Family Medicine 01/19/24 documented as of this encounter
--- OUTSIDE RECORDS SUMMARY | 2024-10-04 11:46 | XMS_ITS | Encounter Summary ---
Author Organization [facility] Address [address] [place] [address] Care Team Providers Care Compressed Gas Equipment Mechanic Name Role Phone Natalie Ryan MD Primary Care Provider [phone] Blossom Cody DIVISION TRAFFIC SUPERINTENDENT Unavailable [phone] Encounter Details Date Type Department Care Team ([facility] st Contact Info) Description 11/15/2023 Abstract [facility] [address] [place] [phone] Chidi Moore, DPM [address] [place], [place] [phone] Social History Tobacco Use Types Packs/Day Years [...] often do you attend chur ch or moravian services? More than 4 times per year 03/23/2023 Do you belong to any clubs o r organizations such as religious groups, unions, fraternal or athletic groups, or [...] EDT Office Visit [facility] [address] [place] [phone] Maria Fernanda Olguin NP [address] [place] [address] documented as of this encounter Visit Diagnoses Not on filedocumented in this encounter Care Teams Compressed Gas Equipment Mechanic Relationship Specialty Start Date End Date Natalie Ryan MD [address] [place] [address] PCP - General Family Medicine 09/15/22 Blossom Cody NP [address] [place] [address] Nurse Practitioner Family Medicine 01/19/24 documented as of this encounter
--- OUTSIDE RECORDS SUMMARY | 2024-10-04 11:46 | XMS_ITS | Encounter Summary ---
Author Organization [facility] Address [address] [place] [address] Care Team Providers Care Registered Mail Clerk Name Role Phone Natalie Ryan MD Primary Care Provider [phone] Blossom Cody HR OPERATIONS ADVISOR Unavailable [phone] Encounter Details Date Type Department Care Team (Late Contact Info) Description 10/06/2022 Clinisync Result Encounter [facility] External Department Unsolicited Natalie Ryan MD [address] [place], [place] [phone] Social History Tobacco Use Types Packs/Day Years Used Date Smoking Tobacco: Never Assessed Sex and Gender Information Value Date Recorded Sex Assigned at Not on file Legal Sex Male 6:33 PM EDT Gender Identity Not on file Sexual Orientation Not on file documented as of this encounter Plan of Treatment Upcoming Encounters Date Type Department Care Team ([facility] Contact Info) Description 10/19/2024 10:00 AM EDT Office Visit [facility] [address] [place] [address] Maria Fernanda Olguin NP [address] [place], [place] [phone] documented as of this encounter Procedures Procedure Name Priority Date/Time Associated Diagnosis Comments XR FOOT LT MIN 3 VIEWS 10/06/2022 10:16 AM EDT documented in this encounter Results * XR FOOT LT MIN 3 VIEWS (10/06/2022 10:16 AM EDT) Anatomical Region Laterality Modality Other 10/06/2022 10:1 6 AM EDT Narrative 10/06/2022 2:13 PM EDT PROCEDURE: XR FOOT LT MIN 3 VIEWS COMPARISON: [...] Electronically authenticated by: FRANCO FRANCES Date: 2022-10-06 14:13 Procedure Note Radiology, Radiologist, - 10/06/2022 PROCEDURE: XR FOOT LT MIN 3 VIEWS COMPARISON: 08/24/2022 HISTORY: Pain in left foot FINDINGS: BONES:Flattening of the plantar arch. Moderate to severe degenerativechanges most significant along the first metatarsal-phalangeal, first and seconddistal interphalangeal joints. Bulky enthesopathic spurring of the calcaneus.Moderate degenerative changes of the midfoot and hindfoot SOFT TISSUES:Negative. No visible soft tissue swelling. EFFUSION:None visible. OTHER: Negative. 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
--- OUTSIDE RECORDS SUMMARY | 2024-10-04 11:46 | XMS_ITS | Encounter Summary ---
Author Organization [facility] Address [address] [place] [address] Care Team Providers Care Cloth Neutralizer Name Role Phone Natalie Ryan MD Primary Care Provider [phone] Blossom Cody WEB MARKETING COORDINATOR Unavailable [phone] Encounter Details Date Type Department Care Team ([facility] Contact Info) Description 10/20/2023 Orders Only [facility] [address] [place] [address] Link Ortega, WEB MARKETING COORDINATOR [address] [facility] [place] [address] Social History Tobacco Use Types Packs/Day Years [...] often do you attend chur ch or amish services? More than 4 times per year 03/23/2023 Do you belong to any clubs o r organizations such as yazidi groups, unions, fraternal or athletic groups, or [...] place to sleep or slept in a mcc (including now)? Patient refused 03/23/2023 Sex and [...] EDT Office Visit [facility] [address] [facility] [place] [phone] Maria Fernanda Olguin NP [address] [facility] [place], [place] [address] documented as of this encounter Procedures Procedure Name Priority Date/Time Associated Diagnosis Comments HEMOGLOBIN A1C Routine 10/19/2023 8:45 AM EDT documented in this encounter Results * Hemoglobin A1c (10/19/2023 8:45 AM EDT) HEMOGLOBIN A1C 9.7 Blood Venous blood specimen / Unknown Link Ortega WEB MARKETING COORDINATOR LAB BLOOD ORDERABLES Edited Resu lt - Final documented in this encounter Visit Diagnoses Not on filedocumented in this encounter Care Teams Cloth Neutralizer Relationship Specialty Start Date End Date Natalie Ryan MD [address] [facility] [place] [address] PCP - General Family Medicine 09/15/22 Blossom Cody NP [address] [facility] [place], [place] [phone] Nurse Practitioner Family Medicine 01/19/24 documented as of this encounter
--- OUTSIDE RECORDS SUMMARY | 2024-10-04 11:46 | XMS_ITS | Encounter Summary ---
Author Organization [facility] Address [address] [facility] [place] [address] Care Team Providers Care Warble Saw Operator Name Role Phone Eric Hernandez MD Primary Care Provider [phone] Blossom Cody CHLORINATION OPERATOR Unavailable [phone] Encounter Details Date Type Department Care Team ([facility] Contact Info) Description 02/19/2023 Clinisync Result Encounter [facility] External Department Unsolicited Provider, Generic External Data Social History Tobacco Use Types Packs/Day Years Used Date Smoking Tobacco: Never Smokeless Tobacco: Never Alcohol Use Standard Drinks/Week Comments Yes 4 (1 standard drink = 0.6 oz pur e alcohol) AUDIT-C Answer Date Recorded Q1: How often do you have a drink containing alc ohol? Monthly or less 12/21/2022 Q2: How many drinks containi ng alcohol do you have on a typical day when you are drinking? 1 or 2 12/21/2022 Q3: How often do you have si x or more drinks on one occasion? Never 12/21/2022 Sex and Gender Information Value Date Recorded Sex Assigned at Not on file Legal Sex Male 6:33 PM EDT Gender Identity Not on file Sexual Orientation Not on file documented as of this encounter Plan of Treatment Upcoming Encounters Date Type Department Care Team ([facility] Contact Info) Description 10/19/2024 10:00 AM EDT Office Visit [facility] [address] [place] [phone] Maria Fernanda Olguin CHLORINATION OPERATOR [address] [place] [address] [phone] (work) documented as of this encounter Procedures Procedure Name Priority Date/Time Associated Diagnosis Comments XR FOOT LT MIN 3V 02/19/2023 2:5 5 PM EDT documented in this encounter Results * XR FOOT LT MIN 3V (02/19/2023 2:55 PM EDT) Anatomical Region Laterality Modality Other 02/19/2023 2:55 PM EDT Narrative 02/19/2023 2:55 [place] [address] XRay Report Signed Patient: Trev Mckeon MR#: [id number] : 1980 Acct:[id number] Age/Sex: 42 / M ADM Date: 02/19/23 Loc: Attending Dr: Jesus Feldman D.P.M. Ordering Physician: Jesus Feldman M.D. Date of Service: 02/19/23 Procedure(s): XR foot LT min 3V Accession Number(s): [id number] cc: Jesus Feldman M.D.; ERIC HERNANDEZ [place] [id number] Patient Name: TREV MCKEON MRN: [id number] date: 1980 Sex: M Assigned Patient Location: Current Patient Location: Accession/Order Number: [id number] Exam Date: 02/19/2023 10:00 Report Date: 02/19/2023 14:55 At the request of: JESUS FELDMAN Procedure: XR foot LT min 3V PROCEDURE: XR foot LT min 3V HISTORY: LEFT FOOT PAIN COMPARISON: XR foot left 12/27/2022 FINDINGS: BONES:Mechanical fusion of the first metatarsophalangeal joint via dorsal plate and screws. Degenerative changes of the first interphalangeal joint and second distal interphalangeal joint. Complete loss of plantar arch. SOFT TISSUES:Soft tissue swelling surrounding the ankle. Mild soft tissue swelling of fourth toe. No radiopaque foreign body. EFFUSION:None visible. OTHER: Negative. XR/XR foot LT min 3V IMPRESSION: 1. No radiographic findings to suggest osteomyelitis. 2. Stable surgical changes and degenerative changes. Electronically authenticated by: GISSEL NAYAK Date: 02/19/2023 14:55 Dictated By: Gissel Nayak M.D. Signed By: 02/19/23 1457 DD/ 1455 TD/TT: Rehabilitation Counselor: Procedure Note Radiology, Radiologist, MD - 02/19/2023 [place] [address] XRay Report Signed Patient: Trev Mckeon BMR#: [id number] : 1980Acct:[id number] Age/Sex: 42 / MADM Date: 02/19/23 Loc: Attending Dr: Jesus Feldman D.P.M. Ordering Physician: Jesus Feldman M.D. Date of Service: 02/19/23 Procedure(s): XR foot LT min 3V Accession Number(s): [id number] cc: Jesus Feldman M.D.; ERIC HERNANDEZ [place] [address] Patient Name: TREV MCKEON MRN: [id number] date: 1980 Sex: M Assigned Patient Location: Current Patient Location: Accession/Order Number: [id number] Exam Date: 02/19/2023 10:00 Report Date: 02/19/2023 14:55 At the request of: JESUS FELDMAN Procedure: XR foot LT min 3V PROCEDURE: XR foot LT min 3V HISTORY: LEFT FOOT PAIN COMPARISON: XR foot left 12/27/2022 FINDINGS: BONES:Mechanical fusion of the first metatarsophalangeal joint via dorsal plate and screws. Degenerative changes of the first interphalangeal joint andsecond distal interphalangeal joint. Complete loss of plantar arch. SOFT TISSUES:Soft tissue swelling surrounding the ankle. Mild soft tissue swelling of fourth toe. No radiopaque foreign body. EFFUSION:None visible. OTHER: Negative. XR/XR foot LT min 3V IMPRESSION: 1. No radiographic findings to suggest osteomyelitis. 2. Stable surgical changes and degenerative changes. Electronically authenticated by: GISSEL NAYAK Date: 02/19/2023 14:55 Dictated By: Gissel Nayak M.D. Signed By:02/19/231456 DD/ 54 TD/TT: Rehabilitation Counselor: us Generic External Data Provider [facility] Final Result documented in this encounter Visit Diagnoses Not on filedocumented in this encounter Care Teams Warble Saw Operator Relationship Specialty Start Date End Date Eric Hernandez MD [address] [place] [address] PCP - General Family Medicine 09/15/22 Blossom Cody NP [address] [place] [address] Nurse Practitioner Family Medicine 01/19/24 documented as of this encounter
--- OUTSIDE RECORDS SUMMARY | 2024-10-04 11:46 | XMS_ITS | Clinical Summary ---
Author Organization [employer] [facility] Address [id number] [address] [place] [address] Care Team Providers Care As400 Analyst Name Role Phone Natalie Ryan MD Primary Care Provider [phone] Allergies No known active allergies Medications insulin lispro (HumaLOG) 100 unit/mL injection For blood glucose 151-200 mg/dL, give 2 units. For blood glucose 201-250 mg/dL, give 4 units. For blood glucose 251-300 mg/dL, give 6 units. For blood glucose 301-350 mg/dL, give 8 units. For blood glucose 351 1 Box 8 Active insulin syringe-needle U-100 0.3 mL 28 syringe Insulin needle for glucometer. 100 Syringe 8 Active blood-glucose meter (glucose monitoring kit) kit Use as instructed 1 each 8 Active lancets (ACCU-CHEK MULTICLIX LANCET) [facility] blood glucose check 100 each 8 Active atorvastatin (LIPITOR) 40 mg tablet Take 40 mg by mouth daily. 11 8 Active ONETOUCH VERIO strip U UTD BEFORE MEALS AND HS 0 8 Active lisinopril (PRINIVIL,ZESTR IL) 10 mg tablet Take 10 mg by mouth daily. 11 8 Active BD ULTRA-FINE ABIGAIL PEN NEEDLE 32 gauge x 5/32 needle USE TO ADMINISTER INSULIN QID DIRECTED 11 8 Active ONETOUCH VERIO SYSTEM [facility] See Admin Instructions. 0 8 Active insulin syringe-needle U-100 0.3 mL 29 gauge syringe See Admin Instructions. 0 8 Active metFORMIN (GLUCOPHAGE) 500 mg tablet Take 1 tablet by mouth 2 (two) times a day. Active semaglutide (OZEMPIC) 0.25 mg or 0.5 mg(2 mg/1.5 mL) pen injector Inject 0.25 mg under the skin every 7 days. Active insulin glargine (LANTUS) 100 unit/mL injection Inject 44 Units under the skin 2 (two) times a day. Active Active Problems Problem Noted Date Diagnosed Date Plantar ulcer of right foot 04/13/2018 Hx of diabetic neuropathy 04/13/2018 Neuropathic foot ulcer 04/13/2018 Resolved Problems Problem Noted Date Diagnosed Date Resolved Date Gangrene 03/27/2018 04/13/2018 Immunizations No known immunizations Family History Medical History Relation Name Comments Cancer Father bladder Diabetes Mother Relation Name Status Comments Father Alive Mother Alive Social History Tobacco Use Types Packs/Day Years Used Date Smoking Tobacco: Former Cigarettes 0.3 4 1 999 - 2002 Smokeless Tobacco: Never Tobacco Cessation:Counseling Given: No Alcohol Use Standard Drinks/Week Comments Yes 2 (1 standard drink = 0.6 oz pur e alcohol) Childcare Answer Date Recorded Childcare Unknown 10/19/2018 Employment Answer Date Recorded Employment Unknown 10/19/2018 Purpose - Life Answer Date Recorded Purpose and direction in life Unknown Sex and Gender Information Value Date Recorded Sex Assigned at Not on file Legal Sex Male 12:09 PM EDT Gender Identity Not on file Sexual Orientation Not on file Last Filed Vital Signs Vital Sign Reading Time Taken Comments Blood Pressure 129/72 01/10/2021 9:21 AM EDT Pulse 85 01/10/2021 9:21 AM EDT Temperature 37.6 C (99.7 F) 01/10/2021 6:30 AM EDT Respiratory Rate 16 01/10/2021 6:30 AM EDT Oxygen Saturation 100% 01/10/2021 9:25 AM EDT Inhaled Oxygen Concentration - - Weight 158.8 kg (350 lb) 01/10/2021 6:30 AM EDT Height 182.9 cm (6' 0.01 ) 01/10/2021 6:30 AM ED T Body Mass Index 47.46 01/10/2021 6:30 AM EDT Plan of Treatment Health Maintenance Due Date Last Done Comments Depression Screening 1991 Tobacco Screening 1991 Adult BMI Screening 10/09/1997 DTaP,Tdap and Td Vaccines (1 - Tdap) 10/09/1998 COVID-19 Vaccine (3 - 2023-2 5 season) 2024 12/18/2020, 11/27/2020 Influenza Vaccine 01/08/2025 02/13/2020, , 02/07/2018 Goals Goal Patient Goal Type Associated Problems Recent Progress Patient-Stated? Author Return home with home care services General Yes Evelyne Baer LSW Note: Evaluation of progress towards goal: Return home with home health care services. Medical Devices Not on file Insurance [employer] Advance Directives * Full Code (Latest Code Status on File) Date Activated Date Inactivated Comments 03/27/2018 5:45 AM 03/30/2018 7:23 PM Care Teams As400 Analyst Relationship Specialty Start Date End Date Natalie Ryan MD [address] [place] [address] PCP - General Family Medicine 03/26/18
--- OUTSIDE RECORDS SUMMARY | 2024-10-04 11:46 | XMS_ITS | Encounter Summary ---
Author Organization [facility] Address [address] [place] [address] Care Team Providers Care Supervisor Quality Control Name Role Phone Eric Hernandez MD Primary Care Provider [phone] Blossom Cody MANAGER ADVERTISING Unavailable [phone] Encounter Details Date Type Department Care Team ([facility] st Contact Info) Description 11/02/2023 Clinisync Result Encounter [facility] External Department Unsolicited [...] often do you attend chur ch or methodist services? More than 4 times per year [...] 10/19/2024 10:00 AM EDT Office Visit [facility] [address] [place] [phone] Maria Fernanda Olguin NP [address] [place] [address] documented as of this encounter Procedures Procedure Name Priority Date/Time Associated Diagnosis Comments XR FOOT RT MIN 3V 11/02/2023 1:1 0 PM EDT documented in this encounter Results * XR FOOT RT MIN 3V (11/02/2023 1:10 PM EDT) Anatomical Region Laterality Modality Other 11/02/2023 1:10 PM EDT Narrative 11/02/2023 1:12 [place] [address] XRay Report Signed Patient: TREV MCKEON MR#: [id number] : 1980 Acct:[id number] Age/Sex: 43 / M ADM Date: 11/02/23 Loc: Attending Dr: Alex Johnson D.P.M. Ordering Physician: Alex Johnson D.P.M. 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 Moderate degenerative changes with joint space narrowing and marginal osteophyte formation. Moderate enthesopathic spurring of the calcaneus SOFT TISSUES:Negative. No visible soft tissue swelling. EFFUSION:None visible. OTHER: Vascular calcifications XR/XR foot RT min 3V IMPRESSION: Stable forefoot amputation Electronically authenticated by: FRANCO FRANCES Date: 11/02/2023 13:10 Dictated By: Franco Frances M.D. Signed By: 11/02/23 1312 DD/ 1310 TD/TT: Firer Kiln: Procedure Note Radiology, Radiologist, MD - 11/02/2023 [place] [address] XRay Report Signed Patient: TREV MCKEON BMR#: [id number] : 1980Acct:[id number] Age/Sex: 43 / MADM Date: 11/02/23 Loc: Attending Dr: Alex Johnson D.P.M. Ordering Physician: Alex Johnson D.P.M. 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 Moderate degenerative changes with joint space narrowing and marginal osteophyte formation. Moderate enthesopathicspurring of the calcaneus SOFT TISSUES:Negative. No visible soft tissue swelling. EFFUSION:None visible. OTHER: Vascular calcifications XR/XR foot RT min 3V IMPRESSION: Stable forefoot amputation Electronically authenticated by: FRANCO FRANCES Date: 11/02/2023 13:10 Dictated By: Franco Frances M.D. Signed By:11/02/23 1312 DD/ 1310 TD/TT: Firer Kiln: Generic External Data Provider [facility] Final Result documented in this encounter Visit Diagnoses Not on filedocumented in this encounter Care Teams Supervisor Quality Control Relationship Specialty Start Date End Date Eric Hernandez MD [address] [place] [address] PCP - General Family Medicine 09/15/22 Blossom Cody NP [address] [place] [address] Nurse Practitioner Family Medicine 01/19/24 documented as of this encounter
--- OUTSIDE RECORDS SUMMARY | 2024-10-04 11:46 | XMS_ITS | Encounter Summary ---
Author Organization [facility] Address [address] [place] [address] Care Team Providers Care Controller Mechanic Name Role Phone Natalie Ryan MD Primary Care Provider [phone] Blossom Cody PLUMBING INSTRUCTOR Unavailable [phone] Encounter Details Date Type Department Care Team ([facility] st Contact Info) Description 08/02/2023 Abstract [facility] [address] [place] [phone] Chidi Moore, DPM [address] [place], [place] [phone] Social History Tobacco Use Types Packs/Day Years [...] often do you attend chur ch or mormon services? More than 4 times per year 03/23/2023 Do you belong to any clubs o r organizations such as anabaptism groups, unions, fraternal or athletic groups, or [...] place to sleep or slept in a usp (including now)? Patient refused 03/23/2023 Sex and [...] EDT Office Visit [facility] [address] [place] [phone] Maria Fernanda Olguin NP [address] [place] [address] documented as of this encounter Visit Diagnoses Not on filedocumented in this encounter Care Teams Controller Mechanic Relationship Specialty Start Date End Date Natalie Ryan MD [address] [place] [address] PCP - General Family Medicine 09/15/22 Blossom Cody NP [address] [place] [address] Nurse Practitioner Family Medicine 01/19/24 documented as of this encounter
--- OUTSIDE RECORDS SUMMARY | 2024-10-04 11:46 | XMS_ITS | Patient Health Record ---
Author Organization [facility] in [place] Address [address] [place] [address] Care Team Providers Care Animal Therapist Name Role Phone Natalie Hernandez Primary Care Provider Natanael Dai Unavailable [phone] Results Component Value Reference Range Notes Anaerobic Culture (Not yet r eviewed by provider) Interpretation: Performing Lab: Notes/Report: [facility] , Anaerobic Culture See Below For Report An aerobic Culture Anaerobic Culture No anaerobic growth in 72 hours. Anaerobic Culture Performing Lab: see note LC - [facility] LB Aerobic Culture (Not yet rev iewed by provider) Interpretation: Performing Lab: Notes/Report: [facility] , Aerobic Culture See Below For Report Piperacillin S F Ticarcillin S F Levofloxacin S F Ciprofloxacin S F Imipenem S F Ceftazidime S F Meropenem S F Tobramycin S F O:PSAV Cefepime Levofloxacin Ticarcillin Ciprofloxacin Imipenem O:GNR Ceftazidime Tobramycin Gentamicin Amikacin Aerobic Culture Organism: 2.2 Cefepime S F Isolated Amikacin S F Antibiotic Interpretation EVENS Status Gentamicin S F WILL FOLLOW Isolated Piperacillin Meropenem Aerobic Culture Organism: Gram negat brittney rivas : Piperacillin S F Ticarcillin S F Levofloxacin S F Ciprofloxacin S F Imipenem S F Ceftazidime S F Meropenem S F Tobramycin S F O:PSAV Cefepime Levofloxacin Ticarcillin Ciprofloxacin Imipenem O:GNR Ceftazidime Tobramycin Gentamicin Amikacin Aerobic Culture Organism: 2.2 Cefepime S F Isolated Amikacin S F Antibiotic Interpretation EVENS Status Gentamicin S F WILL FOLLOW Isolated Piperacillin Meropenem Aerobic Culture *ABNORMAL* Piperacillin S F Ticarcillin S F Levofloxacin S F Ciprofloxacin S F Imipenem S F Ceftazidime S F Meropenem S F Tobramycin S F O:PSAV Cefepime Levofloxacin Ticarcillin Ciprofloxacin Imipenem O:GNR Ceftazidime Tobramycin Gentamicin Amikacin Aerobic Culture Organism: 2.2 Cefepime S F Isolated Amikacin S F Antibiotic Interpretation EVENS Status Gentamicin S F WILL FOLLOW Isolated Piperacillin Meropenem Aerobic Culture Heavy growth Piperacillin S F Ticarcillin S F Levofloxacin S F Ciprofloxacin S F Imipenem S F Ceftazidime S F Meropenem S F Tobramycin S F O:PSAV Cefepime Levofloxacin Ticarcillin Ciprofloxacin Imipenem O:GNR Ceftazidime Tobramycin Gentamicin Amikacin Aerobic Culture Organism: 2.2 Cefepime S F Isolated Amikacin S F Antibiotic Interpretation EVENS Status Gentamicin S F WILL FOLLOW Isolated Piperacillin Meropenem Aerobic Culture Piperacillin S F Ticarcillin S F Levofloxacin S F Ciprofloxacin S F Imipenem S F Ceftazidime S F Meropenem S F Tobramycin S F O:PSAV Cefepime Levofloxacin Ticarcillin Ciprofloxacin Imipenem O:GNR Ceftazidime Tobramycin Gentamicin Amikacin Aerobic Culture Organism: 2.2 Cefepime S F Isolated Amikacin S F Antibiotic Interpretation EVENS Status Gentamicin S F WILL FOLLOW Isolated Piperacillin Meropenem Aerobic Culture Mixed skin maximiliano Piperacillin S F Ticarcillin S F Levofloxacin S F Ciprofloxacin S F Imipenem S F Ceftazidime S F Meropenem S F Tobramycin S F O:PSAV Cefepime Levofloxacin Ticarcillin Ciprofloxacin Imipenem O:GNR Ceftazidime Tobramycin Gentamicin Amikacin Aerobic Culture Organism: 2.2 Cefepime S F Isolated Amikacin S F Antibiotic Interpretation EVENS Status Gentamicin S F WILL FOLLOW Isolated Piperacillin Meropenem Aerobic Culture Heavy growth Piperacillin S F Ticarcillin S F Levofloxacin S F Ciprofloxacin S F Imipenem S F Ceftazidime S F Meropenem S F Tobramycin S F O:PSAV Cefepime Levofloxacin Ticarcillin Ciprofloxacin Imipenem O:GNR Ceftazidime Tobramycin Gentamicin Amikacin Aerobic Culture Organism: 2.2 Cefepime S F Isolated Amikacin S F Antibiotic Interpretation EVENS Status Gentamicin S F WILL FOLLOW Isolated Piperacillin Meropenem Aerobic Culture Gram negative rivas Piperacillin S F Ticarcillin S F Levofloxacin S F Ciprofloxacin S F Imipenem S F Ceftazidime S F Meropenem S F Tobramycin S F O:PSAV Cefepime Levofloxacin Ticarcillin Ciprofloxacin Imipenem O:GNR Ceftazidime Tobramycin Gentamicin Amikacin Aerobic Culture Organism: 2.2 Cefepime S F Isolated Amikacin S F Antibiotic Interpretation EVENS Status Gentamicin S F WILL FOLLOW Isolated Piperacillin Meropenem Aerobic Culture Organism: Pseudomona s aeruginosa.. : Piperacillin S F Ticarcillin S F Levofloxacin S F Ciprofloxacin S F Imipenem S F Ceftazidime S F Meropenem S F Tobramycin S F O:PSAV Cefepime Levofloxacin Ticarcillin Ciprofloxacin Imipenem O:GNR Ceftazidime Tobramycin Gentamicin Amikacin Aerobic Culture Organism: 2.2 Cefepime S F Isolated Amikacin S F Antibiotic Interpretation EVENS Status Gentamicin S F WILL FOLLOW Isolated Piperacillin Meropenem Aerobic Culture *ABNORMAL* Piperacillin S F Ticarcillin S F Levofloxacin S F Ciprofloxacin S F Imipenem S F Ceftazidime S F Meropenem S F Tobramycin S F O:PSAV Cefepime Levofloxacin Ticarcillin Ciprofloxacin Imipenem O:GNR Ceftazidime Tobramycin Gentamicin Amikacin Aerobic Culture Organism: 2.2 Cefepime S F Isolated Amikacin S F Antibiotic Interpretation EVENS Status Gentamicin S F WILL FOLLOW Isolated Piperacillin Meropenem Aerobic Culture Heavy growth Piperacillin S F Ticarcillin S F Levofloxacin S F Ciprofloxacin S F Imipenem S F Ceftazidime S F Meropenem S F Tobramycin S F O:PSAV Cefepime Levofloxacin Ticarcillin Ciprofloxacin Imipenem O:GNR Ceftazidime Tobramycin Gentamicin Amikacin Aerobic Culture Organism: 2.2 Cefepime S F Isolated Amikacin S F Antibiotic Interpretation EVENS Status Gentamicin S F WILL FOLLOW Isolated Piperacillin Meropenem Aerobic Culture Piperacillin S F Ticarcillin S F Levofloxacin S F Ciprofloxacin S F Imipenem S F Ceftazidime S F Meropenem S F Tobramycin S F O:PSAV Cefepime Levofloxacin Ticarcillin Ciprofloxacin Imipenem O:GNR Ceftazidime Tobramycin Gentamicin Amikacin Aerobic Culture Organism: 2.2 Cefepime S F Isolated Amikacin S F Antibiotic Interpretation EVENS Status Gentamicin S F WILL FOLLOW Isolated Piperacillin Meropenem Aerobic Culture Mixed skin maximiliano Piperacillin S F Ticarcillin S F Levofloxacin S F Ciprofloxacin S F Imipenem S F Ceftazidime S F Meropenem S F Tobramycin S F O:PSAV Cefepime Levofloxacin Ticarcillin Ciprofloxacin Imipenem O:GNR Ceftazidime Tobramycin Gentamicin Amikacin Aerobic Culture Organism: 2.2 Cefepime S F Isolated Amikacin S F Antibiotic Interpretation EVENS Status Gentamicin S F WILL FOLLOW Isolated Piperacillin Meropenem Aerobic Culture Heavy growth Piperacillin S F Ticarcillin S F Levofloxacin S F Ciprofloxacin S F Imipenem S F Ceftazidime S F Meropenem S F Tobramycin S F O:PSAV Cefepime Levofloxacin Ticarcillin Ciprofloxacin Imipenem O:GNR Ceftazidime Tobramycin Gentamicin Amikacin Aerobic Culture Organism: 2.2 Cefepime S F Isolated Amikacin S F Antibiotic Interpretation EVENS Status Gentamicin S F WILL FOLLOW Isolated Piperacillin Meropenem Aerobic Culture Pseudomonas aeruginosa.. Piperacillin S F Ticarcillin S F Levofloxacin S F Ciprofloxacin S F Imipenem S F Ceftazidime S F Meropenem S F Tobramycin S F O:PSAV Cefepime Levofloxacin Ticarcillin Ciprofloxacin Imipenem O:GNR Ceftazidime Tobramycin Gentamicin Amikacin Aerobic Culture Organism: 2.2 Cefepime S F Isolated Amikacin S F Antibiotic Interpretation EVENS Status Gentamicin S F WILL FOLLOW Isolated Piperacillin Meropenem Aerobic Culture See Below For Report Piperacillin S F Ticarcillin S F Levofloxacin S F Ciprofloxacin S F Imipenem S F Ceftazidime S F Meropenem S F Tobramycin S F O:PSAV Cefepime Levofloxacin Ticarcillin Ciprofloxacin Imipenem O:GNR Ceftazidime Tobramycin Gentamicin Amikacin Aerobic Culture Organism: 2.2 Cefepime S F Isolated Amikacin S F Antibiotic Interpretation EVENS Status Gentamicin S F WILL FOLLOW Isolated Piperacillin Meropenem Aerobic Culture See Below For Report Piperacillin S F Ticarcillin S F Levofloxacin S F Ciprofloxacin S F Imipenem S F Ceftazidime S F Meropenem S F Tobramycin S F O:PSAV Cefepime Levofloxacin Ticarcillin Ciprofloxacin Imipenem O:GNR Ceftazidime Tobramycin Gentamicin Amikacin Aerobic Culture Organism: 2.2 Cefepime S F Isolated Amikacin S F Antibiotic Interpretation EVENS Status Gentamicin S F WILL FOLLOW Isolated Piperacillin Meropenem Aerobic Culture See Below For Report Piperacillin S F Ticarcillin S F Levofloxacin S F Ciprofloxacin S F Imipenem S F Ceftazidime S F Meropenem S F Tobramycin S F O:PSAV Cefepime Levofloxacin Ticarcillin Ciprofloxacin Imipenem O:GNR Ceftazidime Tobramycin Gentamicin Amikacin Aerobic Culture Organism: 2.2 Cefepime S F Isolated Amikacin S F Antibiotic Interpretation EVENS Status Gentamicin S F WILL FOLLOW Isolated Piperacillin Meropenem Aerobic Culture See Below For Report Piperacillin S F Ticarcillin S F Levofloxacin S F Ciprofloxacin S F Imipenem S F Ceftazidime S F Meropenem S F Tobramycin S F O:PSAV Cefepime Levofloxacin Ticarcillin Ciprofloxacin Imipenem O:GNR Ceftazidime Tobramycin Gentamicin Amikacin Aerobic Culture Organism: 2.2 Cefepime S F Isolated Amikacin S F Antibiotic Interpretation EVENS Status Gentamicin S F WILL FOLLOW Isolated Piperacillin Meropenem Aerobic Culture See Below For Report Piperacillin S F Ticarcillin S F Levofloxacin S F Ciprofloxacin S F Imipenem S F Ceftazidime S F Meropenem S F Tobramycin S F O:PSAV Cefepime Levofloxacin Ticarcillin Ciprofloxacin Imipenem O:GNR Ceftazidime Tobramycin Gentamicin Amikacin Aerobic Culture Organism: 2.2 Cefepime S F Isolated Amikacin S F Antibiotic Interpretation EVENS Status Gentamicin S F WILL FOLLOW Isolated Piperacillin Meropenem Aerobic Culture See Below For Report Piperacillin S F Ticarcillin S F Levofloxacin S F Ciprofloxacin S F Imipenem S F Ceftazidime S F Meropenem S F Tobramycin S F O:PSAV Cefepime Levofloxacin Ticarcillin Ciprofloxacin Imipenem O:GNR Ceftazidime Tobramycin Gentamicin Amikacin Aerobic Culture Organism: 2.2 Cefepime S F Isolated Amikacin S F Antibiotic Interpretation EVENS Status Gentamicin S F WILL FOLLOW Isolated Piperacillin Meropenem Aerobic Culture See Below For Report Piperacillin S F Ticarcillin S F Levofloxacin S F Ciprofloxacin S F Imipenem S F Ceftazidime S F Meropenem S F Tobramycin S F O:PSAV Cefepime Levofloxacin Ticarcillin Ciprofloxacin Imipenem O:GNR Ceftazidime Tobramycin Gentamicin Amikacin Aerobic Culture Organism: 2.2 Cefepime S F Isolated Amikacin S F Antibiotic Interpretation EVENS Status Gentamicin S F WILL FOLLOW Isolated Piperacillin Meropenem Aerobic Culture See Below For Report Piperacillin S F Ticarcillin S F Levofloxacin S F Ciprofloxacin S F Imipenem S F Ceftazidime S F Meropenem S F Tobramycin S F O:PSAV Cefepime Levofloxacin Ticarcillin Ciprofloxacin Imipenem O:GNR Ceftazidime Tobramycin Gentamicin Amikacin Aerobic Culture Organism: 2.2 Cefepime S F Isolated Amikacin S F Antibiotic Interpretation EVENS Status Gentamicin S F WILL FOLLOW Isolated Piperacillin Meropenem Aerobic Culture See Below For Report Piperacillin S F Ticarcillin S F Levofloxacin S F Ciprofloxacin S F Imipenem S F Ceftazidime S F Meropenem S F Tobramycin S F O:PSAV Cefepime Levofloxacin Ticarcillin Ciprofloxacin Imipenem O:GNR Ceftazidime Tobramycin Gentamicin Amikacin Aerobic Culture Organism: 2.2 Cefepime S F Isolated Amikacin S F Antibiotic Interpretation EVENS Status Gentamicin S F WILL FOLLOW Isolated Piperacillin Meropenem Aerobic Culture See Below For Report Piperacillin S F Ticarcillin S F Levofloxacin S F Ciprofloxacin S F Imipenem S F Ceftazidime S F Meropenem S F Tobramycin S F O:PSAV Cefepime Levofloxacin Ticarcillin Ciprofloxacin Imipenem O:GNR Ceftazidime Tobramycin Gentamicin Amikacin Aerobic Culture Organism: 2.2 Cefepime S F Isolated Amikacin S F Antibiotic Interpretation EVENS Status Gentamicin S F WILL FOLLOW Isolated Piperacillin Meropenem Aerobic Culture See Below For Report Piperacillin S F Ticarcillin S F Levofloxacin S F Ciprofloxacin S F Imipenem S F Ceftazidime S F Meropenem S F Tobramycin S F O:PSAV Cefepime Levofloxacin Ticarcillin Ciprofloxacin Imipenem O:GNR Ceftazidime Tobramycin Gentamicin Amikacin Aerobic Culture Organism: 2.2 Cefepime S F Isolated Amikacin S F Antibiotic Interpretation EVENS Status Gentamicin S F WILL FOLLOW Isolated Piperacillin Meropenem Aerobic Culture See Below For Report Piperacillin S F Ticarcillin S F Levofloxacin S F Ciprofloxacin S F Imipenem S F Ceftazidime S F Meropenem S F Tobramycin S F O:PSAV Cefepime Levofloxacin Ticarcillin Ciprofloxacin Imipenem O:GNR Ceftazidime Tobramycin Gentamicin Amikacin Aerobic Culture Organism: 2.2 Cefepime S F Isolated Amikacin S F Antibiotic Interpretation EVENS Status Gentamicin S F WILL FOLLOW Isolated Piperacillin Meropenem Aerobic Culture See Below For Report Piperacillin S F Ticarcillin S F Levofloxacin S F Ciprofloxacin S F Imipenem S F Ceftazidime S F Meropenem S F Tobramycin S F O:PSAV Cefepime Levofloxacin Ticarcillin Ciprofloxacin Imipenem O:GNR Ceftazidime Tobramycin Gentamicin Amikacin Aerobic Culture Organism: 2.2 Cefepime S F Isolated Amikacin S F Antibiotic Interpretation EVENS Status Gentamicin S F WILL FOLLOW Isolated Piperacillin Meropenem Aerobic Culture See Below For Report Piperacillin S F Ticarcillin S F Levofloxacin S F Ciprofloxacin S F Imipenem S F Ceftazidime S F Meropenem S F Tobramycin S F O:PSAV Cefepime Levofloxacin Ticarcillin Ciprofloxacin Imipenem O:GNR Ceftazidime Tobramycin Gentamicin Amikacin Aerobic Culture Organism: 2.2 Cefepime S F Isolated Amikacin S F Antibiotic Interpretation EVENS Status Gentamicin S F WILL FOLLOW Isolated Piperacillin Meropenem Performing Lab: see note LC - [facility] LB SEE REPORT - [employer] Id information not found for OBX-specific furniture reproducer legend XR foot RT min 3V (Not yet r eviewed by provider) Interpretation: Performing Lab: Notes/Report: Source Facility: [place] [address] XRay Report Signed Patient: TREV MCKEON MR#: [id number] : 1980 Acct:[id number] Age/Sex: 43 / M ADM Date: 04/25/24 Loc: Attending Dr: Martell Navas Ordering Physician: Martell Navas Date of Service: 04/25/24 Procedure(s): XR foot RT min 3V Accession Number(s): [id number] cc: Martell Navas; NATALIE HERNANDEZ [place] [id number] Patient Name: TREV MCKEON MRN: [facility]:[id number] date: 1980 Sex: M Assigned Patient Location: Current Patient Location: [place] Accession/Order Number: [id number] Exam Date: 04/25/2024 11:58 Report Date: 04/26/2024 09:03 At the request of: MARTELL NAVAS Procedure: XR foot RT min 3V PROCEDURE: XR foot RT min 3V HISTORY: RIGHT FOOT PAIN COMPARISON: XR foot right 11/02/2023 FINDINGS: BONES:Prior amputation of the forefoot. Subtle, less well-defined cortex of the plantar surface of the midfoot. SOFT TISSUES:Prominent soft tissue swelling. EFFUSION:None visible. OTHER: Negative. XR/XR foot RT min 3V IMPRESSION: 1. Patient history states large wound involving the plantar midfoot. Deep to this area there is suggestive of slightly less well defined cortex which may indicate early osteomyelitis. Electronically authenticated by: KENY NAYAK Date: 04/26/2024 09:03 Dictated By: Keny Nayak M.D. Signed By: 04/26/24905 DD/ 2 TD/TT: Dyeing Machine Feeder: [place] [address] XRay Report Signed Patient: CITLALY MCKEON MR#: [id number] : 1980 Acct:[id number] Age/Sex: 43 / M ADM Date: 04/25/24 Loc: Attending Dr: Danielle Navas Ordering Physician: Martell Navas Date of Service: 04/25/24 Procedure(s): XR kristen t RT min 3V Accession Number(s): [id number] cc: Martell Navas; NATALIE HERNANDEZ [place] [id number] Patient Name: TREV MKCEON MRN: [id number] date: 1980 Sex: M Assigned Patient Location: Current Patient Location: [place] Accession/Order Numb er: [id number] Exam Date: 11:58 Report Date: 04/26/2024 09:03 At the request of: MARTELL NAVAS Procedure: XR foot R T min 3V PROCEDURE: XR foot R T min 3V HISTORY: RIGHT FOOT PAIN COMPARISON: XR foot right 11/02/2023 FINDINGS: BONES:Prior amputati on of the forefoot. Subtle, less well-defined cortex of the plantar surface of t he midfoot. SOFT TISSUES:Promine nt soft tissue swelling. EFFUSION:None visible. OTHER: Negative. XR/XR foot RT min 3V IMPRESSION: 1. Patient history states large wound involving the plantar midfoot. Deep to this area there is suggestive of slightly less well defined cortex which may indicate early osteomyelitis. Electronically authenticated by: KENY NAYAK Date: 04/26/2024 09:03 Dictated By: Keny Nayak M.D. Signed By: 04/26/24905 DD/ 2 TD/TT: D[employer] Machine Feeder: Acid Fast Culture (Not yet r eviewed by provider) Interpretation: Performing Lab: Notes/Report: [facility] , Acid Fast Culture See Below For Report Specimen has been received and testing has been initiated. Acid Fast Culture Acid Fast Culture Negative Specimen has been received and testing has been initiated. Acid Fast Culture Acid Fast Culture No acid fast bacilli isolated after 6 weeks. Specimen has been received and testing has been initiated. Acid Fast Culture Acid Fast Culture Performed at: [facility] Specimen has been received and testing has been initiated. Acid Fast Culture Acid Fast Culture [address], [place] [id number] Specimen has been received and testing has been initiated. Acid Fast Culture Acid Fast Culture Ruling Machine Set Up Operator: Nancy Everett PhD, Phone: [phone] Specimen has been received and testing has been initiated. Acid Fast Culture Performing Lab: see note SEE REPORT - [employer] Id information not found for OBX-specific furniture reproducer legend - [facility] LB Anaerobic Culture (Not yet r eviewed by provider) Interpretation: Performing Lab: Notes/Report: [facility] , Anaerobic Culture See Below For Report Anaerobic Culture Isolated O:PREDIS Anaerobic Culture Holding for possible anaerobes. Anaerobic Culture Isolated O:PREDIS Anaerobic Culture Organism: Prevotella disiens : Anaerobic Culture Isolated O:PREDIS Anaerobic Culture *ABNORMAL* Anaerobic Culture Isolated O:PREDIS Anaerobic Culture Light growth Anaerobic Culture Isolated O:PREDIS Anaerobic Culture Studies at [employer] have confirmed the Anaerobic Culture Isolated O:PREDIS Anaerobic Culture observations of othe rs who have demonstrated that Anaerobic Culture Isolated O:PREDIS Anaerobic Culture Prevotella, Porphyromonas and Bacteroides species Anaerobic Culture Isolated O:PREDIS Anaerobic Culture other than Bacteroid es fragilis group are routinely Anaerobic Culture Isolated O:PREDIS Anaerobic Culture susceptible to Cefoxitin, Chloramphenicol, and Anaerobic Culture Isolated O:PREDIS Anaerobic Culture Metronidazole and ar e usually resistant to Penicillin. Anaerobic Culture Isolated O:PREDIS Anaerobic Culture Prevotella disiens Anaerobic Culture Isolated O:PREDIS Anaerobic Culture See Below For Report Anaerobic Culture Isolated O:PREDIS [facility]forming [facility] Anaerobic Cult, Extended Inc ub (Not yet reviewed by provider) Interpretation: Performing Lab: Notes/Report: [facility] , Anaerobic Cult, Extended Incub See Below For Report Isolated Anaerobic Cult, Extended Incub O:PREDIS Anaerobic Cult, Extended Incub Specimen has been received and testing has been initiated. Isolated Anaerobic Cult, Extended Incub O:PREDIS Anaerobic Cult, Extended Incub Organism: Prevotella disiens : Isolated Anaerobic Cult, Extended Incub O:PREDIS Anaerobic Cult, Extended Incub *ABNORMAL* Isolated Anaerobic Cult, Extended Incub O:PREDIS Anaerobic Cult, Extended Incub Scant growth Isolated Anaerobic Cult, Extended Incub O:PREDIS Anaerobic Cult, Extended Incub Studies at [facility] have confirmed the Isolated Anaerobic Cult, Extended Incub O:PREDIS Anaerobic Cult, Extended Incub observations of others who have demonstrated that Isolated Anaerobic Cult, Extended Incub O:PREDIS Anaerobic Cult, Extended Incub Prevotella, Porphyromonas and Bacteroides species Isolated Anaerobic Cult, Extended Incub O:PREDIS Anaerobic Cult, Extended Incub other than Bacteroides fragilis group are routinely Isolated Anaerobic Cult, Extended Incub O:PREDIS Anaerobic Cult, Extended Incub susceptible to Cefoxitin, Chloramphenicol, and Isolated Anaerobic Cult, Extended Incub O:PREDIS Anaerobic Cult, Extended Incub Metronidazole and are usually resistant to Penicillin. Isolated Anaerobic Cult, Extended Incub O:PREDIS Anaerobic Cult, Extended Incub Prevotella disiens Isolated Anaerobic Cult, Extended Incub O:PREDIS Anaerobic Cult, Extended Incub See Below For Report Isolated Anaerobic Cult, Extended Incub O:PREDIS Performing Lab: see note [facility] Gram Stain Result (Not yet r eviewed by provider) Interpretation: Performing Lab: Notes/Report: [facility] , Gram Stain Result See Below For Report Gr am Stain Result Gram Stain Result No white blood cells seen. Gram Stain Result Gram Stain Result Gram Stain Result Gram Stain Result Rare gram positive cocci Gram Stain Result Gram Stain Result Performed at: [facility] Gram Stain Result Gram Stain Result [address], [place] [id number] Gram Stain Result Gram Stain Result Ruling Machine Set Up Operator: Nancy Everett PhD, Phone: [phone] Gram Stain Result Performing Lab: see note SEE REPORT - [employer] Id information not found for OBX-specific furniture reproducer legend - [facility] Fungus Stain (Not yet review ed by provider) Interpretation: Performing Lab: Notes/Report: Comment right foot ulcer [facility] , Fungus Stain See Below For Report Fungus Stain Fungus Stain SHAQ/Calcofluor preparation: no fungus observed. Fungus Stain Performing Lab: see note [facility] LB Aerobic Culture (Not yet rev iewed by provider) Interpretation: Performing Lab: Notes/Report: [facility] , Aerobic Culture See Below For Report Aerobic Culture WILL FOLLOW Aerobic Culture Aerobic Culture WILL FOLLOW Aerobic Culture Mixed skin maximiliano Aerobic Culture WILL FOLLOW Performing Lab: see note [facility] LB GRAM STAIN (Not yet reviewed by provider) Interpretation: Performing Lab: Notes/Report: [facility] , Gram Stain See Below For Report Gram Stain GSEPC Epithelial Cells Gram Stain NS NONE SEEN Gram Stain GSEPC Epithelial Cells Gram Stain GSNOS Organisms Seen Gram Stain GSEPC Epithelial Cells Gram Stain NO NO ORGANISM SEEN Gram Stain GSEPC Epithelial Cells Gram Stain GSWBC White Blood Cells Gram Stain GSEPC Epithelial Cells Gram Stain F FEW Gram Stain GSEPC Epithelial Cells Performing Lab: see note - [facility] LB AFB Specimen Processing (Not yet reviewed by provider) Interpretation: Performing Lab: Notes/Report: Comment right ankle tissue [facility] , AFB Specimen Processing See Below For Report AFB Specimen Processing AFB Specimen Processing Tissue Grinding AFB Specimen Processing Performing Lab: see note [facility] Acid Fast Culture (Not yet r eviewed by provider) Interpretation: Performing Lab: Notes/Report: Comment right ankle tissue [facility] , Acid Fast Culture See Below For Report Specimen has been received and testing has been initiated. Acid Fast Culture Acid Fast Culture Negative Specimen has been received and testing has been initiated. Acid Fast Culture Acid Fast Culture No acid fast bacilli isolated after 6 weeks. Specimen has been received and testing has been initiated. Acid Fast Culture Acid Fast Culture Performed at: [facility] Specimen has been received and testing has been initiated. Acid Fast Culture Acid Fast Culture [address], [place] [id number] Specimen has been received and testing has been initiated. Acid Fast Culture Acid Fast Culture Ruling Machine Set Up Operator: Nancy Everett PhD, Phone: [phone] Specimen has been received and testing has been initiated. Acid Fast Culture Performing Lab: see note SEE REPORT - [employer] Id information not found for OBX-specific furniture reproducer legend LC - [facility] LB Acid Fast Smear (Not yet rev iewed by provider) Interpretation: Performing Lab: Notes/Report: Comment right ankle tissue [facility] , Acid Fast Smear See Below For Report Negative Acid Fast Smear Performing Lab: see note LC - [facility] AFB Specimen Processing (Not yet reviewed by provider) Interpretation: Performing Lab: Notes/Report: [facility] , AFB Specimen Processing See Below For Report AFB Specimen Processing AFB Specimen Processing Tissue Grinding AFB Specimen Processing Performing Lab: see note LC - [facility] LB XR foot RT min 3V (Not yet r eviewed by provider) Interpretation: Performing Lab: Notes/Report: Source Facility: [place] [address] XRay Report Signed Patient: TREV MCKEON MR#: [id number] : 1980 Acct:[id number] Age/Sex: 43 / M ADM Date: 04/25/24 Loc: [place] 204-[address]: Beth Root D.O. Ordering Physician: Natanael Feldman D.P.M. Date of Service: 04/26/24 Procedure(s): XR foot RT min 3V Accession Number(s): [id number] cc: Natanael Feldman D.P.M.; NATALIE HERNANDEZ [place] [id number] Patient Name: TREV MCKEON MRN: [id number] date: 1980 Sex: M Assigned Patient Location: [place] Current Patient Location: [place] Accession/Order Number: [id number] Exam Date: 04/26/2024 10:30 Report Date: 04/26/2024 11:55 At the request of: NATANAEL FELDMAN Procedure: XR foot RT min 3V PROCEDURE: XR foot RT min 3V HISTORY: infection s/p I D abx beads COMPARISON: Ultrasound foot right 04/25/2024 FINDINGS: BONES:Prior amputation of the forefoot. Previously seen cortical irregularity along the plantar surface of the midfoot. SOFT TISSUES:Interval placement of numerous antibiotic beads on plantar surface of the foot and medial to the hindfoot. Soft tissue swelling surrounding the foot. Images were obtained through cast material. EFFUSION:None visible. OTHER: Negative. XR/XR foot RT min 3V IMPRESSION: 1. Interval placement of antibiotic pellets plantar and medial to the foot. Electronically authenticated by: KENY NAYAK Date: 04/26/2024 11:55 Dictated By: Keny Nayak M.D. Signed By: 04/26/24 1158 DD/ 1155 TD/TT: Dyeing Machine Feeder: [place] [address] XRay Report Signed Patient: CITLALY MCKEON MR#: [id number] : 1980 Acct:[id number] Age/Sex: 43 / M ADM Date: 04/25/24 Loc: [place] 204-[address]: Ivette Root D.O. Ordering Physician: Natanael Feldman D.P.M. Date of Service: 04/26/24 Procedure(s): XR kristen t RT min 3V Accession Number(s): [id number] cc: Natanael Feldman D.P.M.; NATALIE HERNANDEZ [place] [id number] Patient Name: TREV MCKEON MRN: [id number] date: 1980 Sex: M Assigned Patient Location: MS Current Patient Location: MS Accession/Order Numb er: [id number] Exam Date: 10:30 Report Date: 04/26/2024 11:55 At the request of: NATANAEL FELDMAN Procedure: XR foot R T min 3V PROCEDURE: XR foot R T min 3V HISTORY: infection s /p I D abx beads COMPARISON: Ultrasou nd foot right 04/25/2024 FINDINGS: BONES:Prior amputati on of the forefoot. Previously seen cortical irregularity along the plantar surface of the midfoot. SOFT TISSUES:Interva l placement of numerous antibiotic beads on plantar surface of the foot and medi al to the hindfoot. Soft tissue swelling surrounding the foot. Images were obtained through cast material. EFFUSION:None visible. OTHER: Negative. XR/XR foot RT min 3V IMPRESSION: 1. Interval placemen t of antibiotic pellets plantar and medial to the foot. Electronically authenticated by: KENY NAYAK Date: 04/26/2024 11:55 Dictated By: Keny Nayak M.D. Signed By: 04/26/24 1158 DD/ 1155 TD/TT: Dyeing Machine Feeder: Tissue Culture (Not yet revi ewed by provider) Interpretation: Performing Lab: Notes/Report: [facility] , Tissue Culture See Below For Report Tissue Culture WILL FOLLOW Tissue Culture Tissue Culture WILL FOLLOW Tissue Culture Specimen has been received and testing has been initiated. Tissue Culture WILL FOLLOW Performing Lab: see note [facility] Aerobic Culture (Not yet rev iewed by provider) Interpretation: Performing Lab: Notes/Report: [facility] , Aerobic Culture See Below For Report WILL FOLLOW Aerobic Culture Aerobic Culture WILL FOLLOW Aerobic Culture Aerobic Culture Mixed skin maximiliano WILL FOLLOW Aerobic Culture Performing Lab: see note - [facility] Gram Stain Result (Not yet r eviewed by provider) Interpretation: Performing Lab: Notes/Report: [facility] , Gram Stain Result See Below For Report Gram Stain Result Gram Stain Result No white blood cells seen. Gram Stain Result Gram Stain Result Gram Stain Result Gram Stain Result No organisms seen Gram Stain Result Gram Stain Result Performed at: [facility] Gram Stain Result Gram Stain Result [address], [place] [id number] Gram Stain Result Gram Stain Result Ruling Machine Set Up Operator: Nancy Everett PhD, Phone: [phone] Gram Stain Result Performing Lab: see note SEE REPORT - [employer] Id information not found for OBX-specific furniture reproducer legend - [facility] Fungus (Mycology) Culture (N ot yet reviewed by provider) Interpretation: Performing Lab: Notes/Report: Comment right foot ulcer [facility] , Fungus (Mycology) Culture See Below For Report WILL FOLLOW Fungus (Mycology) Culture Fungus (Mycology) Culture No yeast or mold isolated after 4 weeks. WILL FOLLOW Fungus (Mycology) Culture Fungus (Mycology) Culture Performed at: [facility] WILL FOLLOW Fungus (Mycology) Culture Fungus (Mycology) Culture [address], [place] [id number] WILL FOLLOW Fungus (Mycology) Culture Fungus (Mycology) Culture Ruling Machine Set Up Operator: Lalo Everett PhD, Phone: [phone] WILL FOLLOW Fungus (Mycology) Culture Performing Lab: see note LC - [facility] LB SEE REPORT - [employer] Id information not found for OBX-specific furniture reproducer legend Fungus Stain (Not yet review ed by provider) Interpretation: Performing Lab: Notes/Report: Comment right foot fascia for culture [facility] , Fungus Stain See Below For Report Fungus Stain Fungus Stain SHAQ/Calcofluor preparation: no fungus observed. Fungus Stain Performing Lab: see note LC - [facility] Acid Fast Smear (Not yet rev iewed by provider) Interpretation: Performing Lab: Notes/Report: [facility] , Acid Fast Smear See Below For Report Negative Acid Fast Smear Performing Lab: see note LC - [facility] AFB Specimen Processing (Not yet reviewed by provider) Interpretation: Performing Lab: Notes/Report: Comment right foot fascia for culture [facility] , AFB Specimen Processing See Below For Report AFB Specimen Processing AFB Specimen Processing Tissue Grinding AFB Specimen Processing Performing Lab: see note LC - [facility] Aerobic Culture (Not yet rev iewed by provider) Interpretation: Performing Lab: Notes/Report: [facility] , Aerobic Culture See Below For Report Organism: 1.2 WILL FOLLOW O:GNR Aerobic Culture Isolated Antibiotic Interpretation [facility] Status O:PSAV Isolated Aerobic Culture Organism: Gram negat brittney rivas : Organism: 1.2 WILL FOLLOW O:GNR Aerobic Culture Isolated Antibiotic Interpretation [facility] Status O:PSAV Isolated Aerobic Culture *ABNORMAL* Organism: 1.2 WILL FOLLOW O:GNR Aerobic Culture Isolated Antibiotic Interpretation [facility] Status O:PSAV Isolated Aerobic Culture Heavy growth Organism: 1.2 WILL FOLLOW O:GNR Aerobic Culture Isolated Antibiotic Interpretation [facility] Status O:PSAV Isolated Aerobic Culture Organism: 1.2 WILL FOLLOW O:GNR Aerobic Culture Isolated Antibiotic Interpretation [facility] Status O:PSAV Isolated Aerobic Culture Mixed skin maximiliano Organism: 1.2 WILL FOLLOW O:GNR Aerobic Culture Isolated Antibiotic Interpretation [facility] Status O:PSAV Isolated Aerobic Culture Heavy growth Organism: 1.2 WILL FOLLOW O:GNR Aerobic Culture Isolated Antibiotic Interpretation [facility] Status O:PSAV Isolated Aerobic Culture Gram negative rivas Organism: 1.2 WILL FOLLOW O:GNR Aerobic Culture Isolated Antibiotic Interpretation [facility] Status O:PSAV Isolated Aerobic Culture Organism: Pseudomona s aeruginosa.. : Organism: 1.2 WILL FOLLOW O:GNR Aerobic Culture Isolated Antibiotic Interpretation [facility] Status O:PSAV Isolated Aerobic Culture *ABNORMAL* Organism: 1.2 WILL FOLLOW O:GNR Aerobic Culture Isolated Antibiotic Interpretation [facility] Status O:PSAV Isolated Aerobic Culture Heavy growth Organism: 1.2 WILL FOLLOW O:GNR Aerobic Culture Isolated Antibiotic Interpretation [facility] Status O:PSAV Isolated Aerobic Culture Organism: 1.2 WILL FOLLOW O:GNR Aerobic Culture Isolated Antibiotic Interpretation [facility] Status O:PSAV Isolated Aerobic Culture Mixed skin maximiliano Organism: 1.2 WILL FOLLOW O:GNR Aerobic Culture Isolated Antibiotic Interpretation [facility] Status O:PSAV Isolated Aerobic Culture Heavy growth Organism: 1.2 WILL FOLLOW O:GNR Aerobic Culture Isolated Antibiotic Interpretation [facility] Status O:PSAV Isolated Aerobic Culture Pseudomonas aeruginosa.. Organism: 1.2 WILL FOLLOW O:GNR Aerobic Culture Isolated Antibiotic Interpretation [facility] Status O:PSAV Isolated Aerobic Culture See Below For Report Organism: 1.2 WILL FOLLOW O:GNR Aerobic Culture Isolated Antibiotic Interpretation [facility] Status O:PSAV Isolated Aerobic Culture See Below For Report Organism: 1.2 WILL FOLLOW O:GNR Aerobic Culture Isolated Antibiotic Interpretation [facility] Status O:PSAV Isolated Aerobic Culture See Below For Report Organism: 1.2 WILL FOLLOW O:GNR Aerobic Culture Isolated Antibiotic Interpretation [facility] Status O:PSAV Isolated Aerobic Culture Amikacin S F Organism: 1.2 WILL FOLLOW O:GNR Aerobic Culture Isolated Antibiotic Interpretation [facility] Status O:PSAV Isolated Aerobic Culture Cefepime S F Organism: 1.2 WILL FOLLOW O:GNR Aerobic Culture Isolated Antibiotic Interpretation [facility] Status O:PSAV Isolated Aerobic Culture Ceftazidime S F Organism: 1.2 WILL FOLLOW O:GNR Aerobic Culture Isolated Antibiotic Interpretation [facility] Status O:PSAV Isolated Aerobic Culture Ciprofloxacin S F Organism: 1.2 WILL FOLLOW O:GNR Aerobic Culture Isolated Antibiotic Interpretation [facility] Status O:PSAV Isolated Aerobic Culture Gentamicin S F Organism: 1.2 WILL FOLLOW O:GNR Aerobic Culture Isolated Antibiotic Interpretation [facility] Status O:PSAV Isolated Aerobic Culture Imipenem S F Organism: 1.2 WILL FOLLOW O:GNR Aerobic Culture Isolated Antibiotic Interpretation [facility] Status O:PSAV Isolated Aerobic Culture Levofloxacin S F Organism: 1.2 WILL FOLLOW O:GNR Aerobic Culture Isolated Antibiotic Interpretation [facility] Status O:PSAV Isolated Aerobic Culture Meropenem S F Organism: 1.2 WILL FOLLOW O:GNR Aerobic Culture Isolated Antibiotic Interpretation [facility] Status O:PSAV Isolated Aerobic Culture Piperacillin S F Organism: 1.2 WILL FOLLOW O:GNR Aerobic Culture Isolated Antibiotic Interpretation [facility] Status O:PSAV Isolated Aerobic Culture Ticarcillin S F Organism: 1.2 WILL FOLLOW O:GNR Aerobic Culture Isolated Antibiotic Interpretation [facility] Status O:PSAV Isolated Aerobic Culture Tobramycin S F Organism: 1.2 WILL FOLLOW O:GNR Aerobic Culture Isolated Antibiotic Interpretation [facility] Status O:PSAV Isolated Performing Lab: see note - [facility] SEE REPORT - [employer] Id information not found for OBX-specific furniture reproducer legend Gram Stain Result (Not yet r eviewed by provider) Interpretation: Performing Lab: Notes/Report: [facility] , Gram Stain Result See Below For Report Gr am Stain Result Gram Stain Result No white blood cells seen. Gram Stain Result Gram Stain Result Gram Stain Result Gram Stain Result Moderate number of g tess positive cocci. Gram Stain Result Gram Stain Result Gram Stain Result Gram Stain Result Many gram negative rods. Gram Stain Result Gram Stain Result Gram Stain Result Gram Stain Result Moderate number of g tess positive rods. Gram Stain Result Gram Stain Result Performed at: [facility] Gram Stain Result Gram Stain Result [address], [place] [id number] Gram Stain Result Gram Stain Result Ruling Machine Set Up Operator: Nancy Everett PhD, Phone: [phone] Gram Stain Result Performing Lab: see note SEE REPORT - [employer] Id information not found for OBX-specific furniture reproducer legend - [facility] Aerobic Culture (Not yet rev iewed by provider) Interpretation: Performing Lab: Notes/Report: [facility] , Aerobic Culture See Below For Report Meropenem R F Ampicillin/Sulbactam Isolated Ciprofloxacin Gentamicin Tobramycin Aerobic Culture Ceftriaxone I F Antibiotic Interpretation [facility] Status Piperacillin R F Trimethoprim/Sulfametho xazole Cefepime Cefotaxime Ampicillin/Sulbactam S F Imipenem Ciprofloxacin R F O:CRAB Tobramycin S F Ceftazidime O:GNR Tetracycline R F Organism: Gram negative rivas : Trimethoprim/Sulfametho xazole R F Cefepime I F Gentamicin S F [place] Isolated Ceftriaxone Organism: 2.1 Imipenem R F Ceftazidime I F Piperacillin Tetracycline Cefotaxime R F Aerobic Culture *ABNORMAL* Meropenem R F Ampicillin/Sulbactam Isolated Ciprofloxacin Gentamicin Tobramycin Aerobic Culture Ceftriaxone I F Antibiotic Interpretation [facility] Status Piperacillin R F Trimethoprim/Sulfametho xazole Cefepime Cefotaxime Ampicillin/Sulbactam S F Imipenem Ciprofloxacin R F O:CRAB Tobramycin S F Ceftazidime O:GNR Tetracycline R F Organism: Gram negative rivas : Trimethoprim/Sulfametho xazole R F Cefepime I F Gentamicin S F [place] Isolated Ceftriaxone Organism: 2.1 Imipenem R F Ceftazidime I F Piperacillin Tetracycline Cefotaxime R F Aerobic Culture Moderate growth Meropenem R F Ampicillin/Sulbactam Isolated Ciprofloxacin Gentamicin Tobramycin Aerobic Culture Ceftriaxone I F Antibiotic Interpretation [facility] Status Piperacillin R F Trimethoprim/Sulfametho xazole Cefepime Cefotaxime Ampicillin/Sulbactam S F Imipenem Ciprofloxacin R F O:CRAB Tobramycin S F Ceftazidime O:GNR Tetracycline R F Organism: Gram negative rivas : Trimethoprim/Sulfametho xazole R F Cefepime I F Gentamicin S F [place]open[place] Isolated Ceftriaxone Organism: 2.1 Imipenem R F Ceftazidime I F Piperacillin Tetracycline Cefotaxime R F Aerobic Culture Gram negative rivas Meropenem R F Ampicillin/Sulbactam Isolated Ciprofloxacin Gentamicin Tobramycin Aerobic Culture Ceftriaxone I F Antibiotic Interpretation [facility] Status Piperacillin R F Trimethoprim/Sulfametho xazole Cefepime Cefotaxime Ampicillin/Sulbactam S F Imipenem Ciprofloxacin R F O:CRAB Tobramycin S F Ceftazidime O:GNR Tetracycline R F Organism: Gram negative riavs : Trimethoprim/Sulfametho xazole R F Cefepime I F Gentamicin S F Meropen[place] Isolated Ceftriaxone Organism: 2.1 Imipenem R F Ceftazidime I F Piperacillin Tetracycline Cefotaxime R F Aerobic Culture Organism: Acinetobac ter baumannii (MICROBIOLOGY QUALITY CONTROL TECHNICIAN) : Meropenem R F Ampicillin/Sulbactam Isolated Ciprofloxacin Gentamicin Tobramycin Aerobic Culture Ceftriaxone I F Antibiotic Interpretation [facility] Status Piperacillin R F Trimethoprim/Sulfametho xazole Cefepime Cefotaxime Ampicillin/Sulbactam S F Imipenem Ciprofloxacin R F O:CRAB Tobramycin S F Ceftazidime O:GNR Tetracycline R F Organism: Gram negative rivas : Trimethoprim/Sulfametho xazole R F Cefepime I F Gentamicin S F [place]open[place] Isolated Ceftriaxone Organism: 2.1 Imipenem R F Ceftazidime I F Piperacillin Tetracycline Cefotaxime R F Aerobic Culture *ABNORMAL* Meropenem R F Ampicillin/Sulbactam Isolated Ciprofloxacin Gentamicin Tobramycin Aerobic Culture Ceftriaxone I F Antibiotic Interpretation [facility] Status Piperacillin R F Trimethoprim/Sulfametho xazole Cefepime Cefotaxime Ampicillin/Sulbactam S F Imipenem Ciprofloxacin R F O:CRAB Tobramycin S F Ceftazidime O:GNR Tetracycline R F Organism: Gram negative rivas : Trimethoprim/Sulfametho xazole R F Cefepime I F Gentamicin S F [place] Isolated Ceftriaxone Organism: 2.1 Imipenem R F Ceftazidime I F Piperacillin Tetracycline Cefotaxime R F Aerobic Culture Carbapenem-resistant Meropenem R F Ampicillin/Sulbactam Isolated Ciprofloxacin Gentamicin Tobramycin Aerobic Culture Ceftriaxone I F Antibiotic Interpretation [facility] Status Piperacillin R F Trimethoprim/Sulfametho xazole Cefepime Cefotaxime Ampicillin/Sulbactam S F Imipenem Ciprofloxacin R F O:CRAB Tobramycin S F Ceftazidime O:GNR Tetracycline R F Organism: Gram negative rivas : Trimethoprim/Sulfametho xazole R F Cefepime I F Gentamicin S F [place] Isolated Ceftriaxone Organism: 2.1 Imipenem R F Ceftazidime I F Piperacillin Tetracycline Cefotaxime R F Aerobic Culture Multi-Drug Resistant Organism Meropenem R F Ampicillin/Sulbactam Isolated Ciprofloxacin Gentamicin Tobramycin Aerobic Culture Ceftriaxone I F Antibiotic Interpretation [facility] Status Piperacillin R F Trimethoprim/Sulfametho xazole Cefepime Cefotaxime Ampicillin/Sulbactam S F Imipenem Ciprofloxacin R F O:CRAB Tobramycin S F Ceftazidime O:GNR Tetracycline R F Organism: Gram negative rivas : Trimethoprim/Sulfametho xazole R F Cefepime I F Gentamicin S F [place] Isolated Ceftriaxone Organism: 2.1 Imipenem R F Ceftazidime I F Piperacillin Tetracycline Cefotaxime R F Aerobic Culture Moderate growth Meropenem R F Ampicillin/Sulbactam Isolated Ciprofloxacin Gentamicin Tobramycin Aerobic Culture Ceftriaxone I F Antibiotic Interpretation [facility] Status Piperacillin R F Trimethoprim/Sulfametho xazole Cefepime Cefotaxime Ampicillin/Sulbactam S F Imipenem Ciprofloxacin R F O:CRAB Tobramycin S F Ceftazidime O:GNR Tetracycline R F Organism: Gram negative rivas : Trimethoprim/Sulfametho xazole R F Cefepime I F Gentamicin S F [place] Isolated Ceftriaxone Organism: 2.1 Imipenem R F Ceftazidime I F Piperacillin Tetracycline Cefotaxime R F Aerobic Culture Acinetobacter todd [place] (MICROBIOLOGY QUALITY CONTROL TECHNICIAN) Meropenem R F Ampicillin/Sulbactam Isolated Ciprofloxacin Gentamicin Tobramycin Aerobic Culture Ceftriaxone I F Antibiotic Interpretation [facility] Status Piperacillin R F Trimethoprim/Sulfametho xazole Cefepime Cefotaxime Ampicillin/Sulbactam S F Imipenem Ciprofloxacin R F O:CRAB Tobramycin S F Ceftazidime O:GNR Tetracycline R F Organism: Gram negative rivas : Trimethoprim/Sulfametho xazole R F Cefepime I F Gentamicin S F [place] Isolated Ceftriaxone Organism: 2.1 Imipenem R F Ceftazidime I F Piperacillin Tetracycline Cefotaxime R F Aerobic Culture See Below For Report Meropenem R F Ampicillin/Sulbactam Isolated Ciprofloxacin Gentamicin Tobramycin Aerobic Culture Ceftriaxone I F Antibiotic Interpretation [facility] Status Piperacillin R F Trimethoprim/Sulfametho xazole Cefepime Cefotaxime Ampicillin/Sulbactam S F Imipenem Ciprofloxacin R F O:CRAB Tobramycin S F Ceftazidime O:GNR Tetracycline R F Organism: Gram negative rivas : Trimethoprim/Sulfametho xazole R F Cefepime I F Gentamicin S F [place] Isolated Ceftriaxone Organism: 2.1 Imipenem R F Ceftazidime I F Piperacillin Tetracycline Cefotaxime R F Aerobic Culture See Below For Report Meropenem R F Ampicillin/Sulbactam Isolated Ciprofloxacin Gentamicin Tobramycin Aerobic Culture Ceftriaxone I F Antibiotic Interpretation [facility] Status Piperacillin R F Trimethoprim/Sulfametho xazole Cefepime Cefotaxime Ampicillin/Sulbactam S F Imipenem Ciprofloxacin R F O:CRAB Tobramycin S F Ceftazidime O:GNR Tetracycline R F Organism: Gram negative rivas : Trimethoprim/Sulfametho xazole R F Cefepime I F Gentamicin S F [place] Isolated Ceftriaxone Organism: 2.1 Imipenem R F Ceftazidime I F Piperacillin Tetracycline Cefotaxime R F Aerobic Culture Performed at: [facility] Daniela Meropenem R F Ampicillin/Sulbactam Isolated Ciprofloxacin Gentamicin Tobramycin Aerobic Culture Ceftriaxone I F Antibiotic Interpretation [facility] Status Piperacillin R F Trimethoprim/Sulfametho xazole Cefepime Cefotaxime Ampicillin/Sulbactam S F Imipenem Ciprofloxacin R F O:CRAB Tobramycin S F Ceftazidime O:GNR Tetracycline R F Organism: Gram negative rivas : Trimethoprim/Sulfametho xazole R F Cefepime I F Gentamicin S F [place] Isolated Ceftriaxone Organism: 2.1 Imipenem R F Ceftazidime I F Piperacillin Tetracycline Cefotaxime R F Aerobic Culture [address], [place] [id number] Meropenem R F Ampicillin/Sulbactam Isolated Ciprofloxacin Gentamicin Tobramycin Aerobic Culture Ceftriaxone I F Antibiotic Interpretation [facility] Status Piperacillin R F Trimethoprim/Sulfametho xazole Cefepime Cefotaxime Ampicillin/Sulbactam S F Imipenem Ciprofloxacin R F O:CRAB Tobramycin S F Ceftazidime O:GNR Tetracycline R F Organism: Gram negative rivas : Trimethoprim/Sulfametho xazole R F Cefepime I F Gentamicin S F [place] Isolated Ceftriaxone Organism: 2.1 Imipenem R F Ceftazidime I F Piperacillin Tetracycline Cefotaxime R F Aerobic Culture Ruling Machine Set Up Operator: Nancy Everett PhD, Phone: [phone] Meropenem R F Ampicillin/Sulbactam Isolated Ciprofloxacin Gentamicin Tobramycin Aerobic Culture Ceftriaxone I F Antibiotic Interpretation [facility] Status Piperacillin R F Trimethoprim/Sulfametho xazole Cefepime Cefotaxime Ampicillin/Sulbactam S F Imipenem Ciprofloxacin R F O:CRAB Tobramycin S F Ceftazidime O:GNR Tetracycline R F Organism: Gram negative rivas : Trimethoprim/Sulfametho xazole R F Cefepime I F Gentamicin S F [place] Isolated Ceftriaxone Organism: 2.1 Imipenem R F Ceftazidime I F Piperacillin Tetracycline Cefotaxime R F Aerobic Culture See Below For Report Meropenem R F Ampicillin/Sulbactam Isolated Ciprofloxacin Gentamicin Tobramycin Aerobic Culture Ceftriaxone I F Antibiotic Interpretation [facility] Status Piperacillin R F Trimethoprim/Sulfametho xazole Cefepime Cefotaxime Ampicillin/Sulbactam S F Imipenem Ciprofloxacin R F O:CRAB Tobramycin S F Ceftazidime O:GNR Tetracycline R F Organism: Gram negative rivas : Trimethoprim/Sulfametho xazole R F Cefepime I F Gentamicin S F [place] Isolated Ceftriaxone Organism: 2.1 Imipenem R F Ceftazidime I F Piperacillin Tetracycline Cefotaxime R F Aerobic Culture See Below For Report Meropenem R F Ampicillin/Sulbactam Isolated Ciprofloxacin Gentamicin Tobramycin Aerobic Culture Ceftriaxone I F Antibiotic Interpretation [facility] Status Piperacillin R F Trimethoprim/Sulfametho xazole Cefepime Cefotaxime Ampicillin/Sulbactam S F Imipenem Ciprofloxacin R F O:CRAB Tobramycin S F Ceftazidime O:GNR Tetracycline R F Organism: Gram negative rivas : Trimethoprim/Sulfametho xazole R F Cefepime I F Gentamicin S F [place]open[place] Isolated Ceftriaxone Organism: 2.1 Imipenem R F Ceftazidime I F Piperacillin Tetracycline Cefotaxime R F Aerobic Culture See Below For Report Meropenem R F Ampicillin/Sulbactam Isolated Ciprofloxacin Gentamicin Tobramycin Aerobic Culture Ceftriaxone I F Antibiotic Interpretation [facility] Status Piperacillin R F Trimethoprim/Sulfametho xazole Cefepime Cefotaxime Ampicillin/Sulbactam S F Imipenem Ciprofloxacin R F O:CRAB Tobramycin S F Ceftazidime O:GNR Tetracycline R F Organism: Gram negative rivas : Trimethoprim/Sulfametho xazole R F Cefepime I F Gentamicin S F [place]open[place] Isolated Ceftriaxone Organism: 2.1 Imipenem R F Ceftazidime I F Piperacillin Tetracycline Cefotaxime R F Aerobic Culture See Below For Report Meropenem R F Ampicillin/Sulbactam Isolated Ciprofloxacin Gentamicin Tobramycin Aerobic Culture Ceftriaxone I F Antibiotic Interpretation [facility] Status Piperacillin R F Trimethoprim/Sulfametho xazole Cefepime Cefotaxime Ampicillin/Sulbactam S F Imipenem Ciprofloxacin R F O:CRAB Tobramycin S F Ceftazidime O:GNR Tetracycline R F Organism: Gram negative rivas : Trimethoprim/Sulfametho xazole R F Cefepime I F Gentamicin S F [place]open[place] Isolated Ceftriaxone Organism: 2.1 Imipenem R F Ceftazidime I F Piperacillin Tetracycline Cefotaxime R F Aerobic Culture See Below For Report Meropenem R F Ampicillin/Sulbactam Isolated Ciprofloxacin Gentamicin Tobramycin Aerobic Culture Ceftriaxone I F Antibiotic Interpretation [facility] Status Piperacillin R F Trimethoprim/Sulfametho xazole Cefepime Cefotaxime Ampicillin/Sulbactam S F Imipenem Ciprofloxacin R F O:CRAB Tobramycin S F Ceftazidime O:GNR Tetracycline R F Organism: Gram negative rivas : Trimethoprim/Sulfametho xazole R F Cefepime I F Gentamicin S F [place]open[place] Isolated Ceftriaxone Organism: 2.1 Imipenem R F Ceftazidime I F Piperacillin Tetracycline Cefotaxime R F Aerobic Culture See Below For Report Meropenem R F Ampicillin/Sulbactam Isolated Ciprofloxacin Gentamicin Tobramycin Aerobic Culture Ceftriaxone I F Antibiotic Interpretation [facility] Status Piperacillin R F Trimethoprim/Sulfametho xazole Cefepime Cefotaxime Ampicillin/Sulbactam S F Imipenem Ciprofloxacin R F O:CRAB Tobramycin S F Ceftazidime O:GNR Tetracycline R F Organism: Gram negative rivas : Trimethoprim/Sulfametho xazole R F Cefepime I F Gentamicin S F Meropenem Isolated Ceftriaxone Organism: 2.1 Imipenem R F Ceftazidime I F Piperacillin Tetracycline Cefotaxime R F Aerobic Culture See Below For Report Meropenem R F Ampicillin/Sulbactam Isolated Ciprofloxacin Gentamicin Tobramycin Aerobic Culture Ceftriaxone I F Antibiotic Interpretation EVENS Status Piperacillin R F Trimethoprim/Sulfametho xazole Cefepime Cefotaxime Ampicillin/Sulbactam S F Imipenem Ciprofloxacin R F O:CRAB Tobramycin S F Ceftazidime O:GNR Tetracycline R F Organism: Gram negative rivas : Trimethoprim/Sulfametho xazole R F Cefepime I F Gentamicin S F Meropenem Isolated Ceftriaxone Organism: 2.1 Imipenem R F Ceftazidime I F Piperacillin Tetracycline Cefotaxime R F Aerobic Culture See Below For Report Meropenem R F Ampicillin/Sulbactam Isolated Ciprofloxacin Gentamicin Tobramycin Aerobic Culture Ceftriaxone I F Antibiotic Interpretation EVENS Status Piperacillin R F Trimethoprim/Sulfametho xazole Cefepime Cefotaxime Ampicillin/Sulbactam S F Imipenem Ciprofloxacin R F O:CRAB Tobramycin S F Ceftazidime O:GNR Tetracycline R F Organism: Gram negative rivas : Trimethoprim/Sulfametho xazole R F Cefepime I F Gentamicin S F Meropenem Isolated Ceftriaxone Organism: 2.1 Imipenem R F Ceftazidime I F Piperacillin Tetracycline Cefotaxime R F Aerobic Culture See Below For Report Meropenem R F Ampicillin/Sulbactam Isolated Ciprofloxacin Gentamicin Tobramycin Aerobic Culture Ceftriaxone I F Antibiotic Interpretation EVENS Status Piperacillin R F Trimethoprim/Sulfametho xazole Cefepime Cefotaxime Ampicillin/Sulbactam S F Imipenem Ciprofloxacin R F O:CRAB Tobramycin S F Ceftazidime O:GNR Tetracycline R F Organism: Gram negative rivas : Trimethoprim/Sulfametho xazole R F Cefepime I F Gentamicin S F Meropenem Isolated Ceftriaxone Organism: 2.1 Imipenem R F Ceftazidime I F Piperacillin Tetracycline Cefotaxime R F Aerobic Culture See Below For Report Meropenem R F Ampicillin/Sulbactam Isolated Ciprofloxacin Gentamicin Tobramycin Aerobic Culture Ceftriaxone I F Antibiotic Interpretation EVENS Status Piperacillin R F Trimethoprim/Sulfametho xazole Cefepime Cefotaxime Ampicillin/Sulbactam S F Imipenem Ciprofloxacin R F O:CRAB Tobramycin S F Ceftazidime O:GNR Tetracycline R F Organism: Gram negative rivas : Trimethoprim/Sulfametho xazole R F Cefepime I F Gentamicin S F Meropenem Isolated Ceftriaxone Organism: 2.1 Imipenem R F Ceftazidime I F Piperacillin Tetracycline Cefotaxime R F Aerobic Culture See Below For Report Meropenem R F Ampicillin/Sulbactam Isolated Ciprofloxacin Gentamicin Tobramycin Aerobic Culture Ceftriaxone I F Antibiotic Interpretation EVENS Status Piperacillin R F Trimethoprim/Sulfametho xazole Cefepime Cefotaxime Ampicillin/Sulbactam S F Imipenem Ciprofloxacin R F O:CRAB Tobramycin S F Ceftazidime O:GNR Tetracycline R F Organism: Gram negative rivas : Trimethoprim/Sulfametho xazole R F Cefepime I F Gentamicin S F Meropenem Isolated Ceftriaxone Organism: 2.1 Imipenem R F Ceftazidime I F Piperacillin Tetracycline Cefotaxime R F Aerobic Culture See Below For Report Meropenem R F Ampicillin/Sulbactam Isolated Ciprofloxacin Gentamicin Tobramycin Aerobic Culture Ceftriaxone I F Antibiotic Interpretation EVENS Status Piperacillin R F Trimethoprim/Sulfametho xazole Cefepime Cefotaxime Ampicillin/Sulbactam S F Imipenem Ciprofloxacin R F O:CRAB Tobramycin S F Ceftazidime O:GNR Tetracycline R F Organism: Gram negative rivas : Trimethoprim/Sulfametho xazole R F Cefepime I F Gentamicin S F Meropenem Isolated Ceftriaxone Organism: 2.1 Imipenem R F Ceftazidime I F Piperacillin Tetracycline Cefotaxime R F Aerobic Culture See Below For Report Meropenem R F Ampicillin/Sulbactam Isolated Ciprofloxacin Gentamicin Tobramycin Aerobic Culture Ceftriaxone I F Antibiotic Interpretation EVENS Status Piperacillin R F Trimethoprim/Sulfametho xazole Cefepime Cefotaxime Ampicillin/Sulbactam S F Imipenem Ciprofloxacin R F O:CRAB Tobramycin S F Ceftazidime O:GNR Tetracycline R F Organism: Gram negative rivas : Trimethoprim/Sulfametho xazole R F Cefepime I F Gentamicin S F Meropenem Isolated Ceftriaxone Organism: 2.1 Imipenem R F Ceftazidime I F Piperacillin Tetracycline Cefotaxime R F Aerobic Culture See Below For Report Meropenem R F Ampicillin/Sulbactam Isolated Ciprofloxacin Gentamicin Tobramycin Aerobic Culture Ceftriaxone I F Antibiotic Interpretation EVENS Status Piperacillin R F Trimethoprim/Sulfametho xazole Cefepime Cefotaxime Ampicillin/Sulbactam S F Imipenem Ciprofloxacin R F O:CRAB Tobramycin S F Ceftazidime O:GNR Tetracycline R F Organism: Gram negative rivas : Trimethoprim/Sulfametho xazole R F Cefepime I F Gentamicin S F Meropenem Isolated Ceftriaxone Organism: 2.1 Imipenem R F Ceftazidime I F Piperacillin Tetracycline Cefotaxime R F Performing Lab: see note LC - [facility] SEE REPORT - [employer] Id information not found for OBX-specific furniture reproducer legend Fungus (Mycology) Culture (N ot yet reviewed by provider) Interpretation: Performing Lab: Notes/Report: [facility] , Fungus (Mycology) Culture See Below For Report Fungus (Mycology) Culture Fungus (Mycology) Culture Culture Report: Fungus (Mycology) Culture Fungus (Mycology) Culture The specimen submitted for fungus culture has been received and Fungus (Mycology) Culture Fungus (Mycology) Culture culture has been initiated. Fungus (Mycology) Culture Fungus (Mycology) Culture No yeast or mold isolated after 4 weeks. Fungus (Mycology) Culture Fungus (Mycology) Culture Performed at: [facility] Fungus (Mycology) Culture Fungus (Mycology) Culture [address] [place], [place] [id number] Fungus (Mycology) Culture Fungus (Mycology) Culture Ruling Machine Set Up Operator: Lalo Everett PhD, Phone: [phone] Fungus (Mycology) Culture Performing Lab: see note SEE REPORT - [employer] Id information not found for OBX-specific furniture reproducer legend LC - [facility] Anaerobic Culture (Not yet r eviewed by provider) Interpretation: Performing Lab: Notes/Report: [facility] , Anaerobic Culture See Below For Report An aerobic Culture Anaerobic Culture No anaerobic growth in 72 hours. Anaerobic Culture Performing Lab: see note LC - [facility] Aerobic Culture (Not yet rev iewed by provider) Interpretation: Performing Lab: Notes/Report: [facility] , Aerobic Culture See Below For Report O:GNR Organism: Gram negative rivas : O:CRAB Isolated Isolated Aerobic Culture Antibiotic Interpretation EVENS Status Organism: 1.1 Aerobic Culture *ABNORMAL* O:GNR Organism: Gram negative rivas : O:CRAB Isolated Isolated Aerobic Culture Antibiotic Interpretation EVENS Status Organism: 1.1 Aerobic Culture Moderate growth O:GNR Organism: Gram negative rivas : O:CRAB Isolated Isolated Aerobic Culture Antibiotic Interpretation [facility] Status Organism: 1.1 Aerobic Culture Gram negative rivas O:GNR Organism: Gram negative rivas : O:CRAB Isolated Isolated Aerobic Culture Antibiotic Interpretation [facility] Status Organism: 1.1 Aerobic Culture Organism: Acinetobac ter baumannii (MICROBIOLOGY QUALITY CONTROL TECHNICIAN) : O:GNR Organism: Gram negative rivas : O:CRAB Isolated Isolated Aerobic Culture Antibiotic Interpretation [facility] Status Organism: 1.1 Aerobic Culture *ABNORMAL* O:GNR Organism: Gram negative rivas : O:CRAB Isolated Isolated Aerobic Culture Antibiotic Interpretation [facility] Status Organism: 1.1 Aerobic Culture Carbapenem-resistant O:GNR Organism: Gram negative rivas : O:CRAB Isolated Isolated Aerobic Culture Antibiotic Interpretation [facility]ENS Status Organism: 1.1 Aerobic Culture Multi-Drug Resistant Organism O:GNR Organism: Gram negative rivas : O:CRAB Isolated Isolated Aerobic Culture Antibiotic Interpretation [facility]ENS Status Organism: 1.1 Aerobic Culture Moderate growth O:GNR Organism: Gram negative rivas : O:CRAB Isolated Isolated Aerobic Culture Antibiotic Interpretation [facility] Status Organism: 1.1 Aerobic Culture Acinetobacter todd newton (MICROBIOLOGY QUALITY CONTROL TECHNICIAN) O:GNR Organism: Gram negative rivas : O:CRAB Isolated Isolated Aerobic Culture Antibiotic Interpretation [facility] Status Organism: 1.1 Aerobic Culture See Below For Report O:GNR Organism: Gram negative rivas : O:CRAB Isolated Isolated Aerobic Culture Antibiotic Interpretation [facility] Status Organism: 1.1 Aerobic Culture See Below For Report O:GNR Organism: Gram negative rivas : O:CRAB Isolated Isolated Aerobic Culture Antibiotic Interpretation [facility] Status Organism: 1.1 Aerobic [facility] O:GNR Organism: Gram negative rivas : O:CRAB Isolated Isolated Aerobic Culture Antibiotic Interpretation [facility] Status Organism: 1.1 Aerobic Culture [address] [place], [place] [id number] O:GNR Organism: Gram negative rivas : O:CRAB Isolated Isolated Aerobic Culture Antibiotic Interpretation [facility] Status Organism: 1.1 Aerobic Culture Ruling Machine Set Up Operator: Nancy Everett PhD, Phone: [phone] O:GNR Organism: Gram negative rivas : O:CRAB Isolated Isolated Aerobic Culture Antibiotic Interpretation [facility]ENS Status Organism: 1.1 Aerobic Culture See Below For Report O:GNR Organism: Gram negative rivas : O:CRAB Isolated Isolated Aerobic Culture Antibiotic Interpretation [facility]ENS Status Organism: 1.1 Aerobic Culture Ampicillin/Sulbactam S F O:GNR Organism: Gram negative rivas : O:CRAB Isolated Isolated Aerobic Culture Antibiotic Interpretation EVENS Status Organism: 1.1 Aerobic Culture Cefepime I F O:GNR Organism: Gram negative rivas : O:CRAB Isolated Isolated Aerobic Culture Antibiotic Interpretation [facility]ENS Status Organism: 1.1 Aerobic Culture Cefotaxime R F O:GNR Organism: Gram negative rivas : O:CRAB Isolated Isolated Aerobic Culture Antibiotic Interpretation [facility]ENS Status Organism: 1.1 Aerobic Culture Ceftazidime I F O:GNR Organism: Gram negative rivas : O:CRAB Isolated Isolated Aerobic Culture Antibiotic Interpretation EVENS Status Organism: 1.1 Aerobic Culture Ceftriaxone I F O:GNR Organism: Gram negative rivas : O:CRAB Isolated Isolated Aerobic Culture Antibiotic Interpretation EVENS Status Organism: 1.1 Aerobic Culture Ciprofloxacin R F O:GNR Organism: Gram negative rivas : O:CRAB Isolated Isolated Aerobic Culture Antibiotic Interpretation EVENS Status Organism: 1.1 Aerobic Culture Gentamicin S F O:GNR Organism: Gram negative rivas : O:CRAB Isolated Isolated Aerobic Culture Antibiotic Interpretation EVENS Status Organism: 1.1 Aerobic Culture Imipenem R F O:GNR Organism: Gram negative rivas : O:CRAB Isolated Isolated Aerobic Culture Antibiotic Interpretation EVENS Status Organism: 1.1 Aerobic Culture Meropenem R F O:GNR Organism: Gram negative rivas : O:CRAB Isolated Isolated Aerobic Culture Antibiotic Interpretation EVENS Status Organism: 1.1 Aerobic Culture Piperacillin R F O:GNR Organism: Gram negative rivas : O:CRAB Isolated Isolated Aerobic Culture Antibiotic Interpretation EVENS Status Organism: 1.1 Aerobic Culture Tetracycline R F O:GNR Organism: Gram negative rivas : O:CRAB Isolated Isolated Aerobic Culture Antibiotic Interpretation EVENS Status Organism: 1.1 Aerobic Culture Tobramycin S F O:GNR Organism: Gram negative rivas : O:CRAB Isolated Isolated Aerobic Culture Antibiotic Interpretation EVENS Status Organism: 1.1 Aerobic Culture Trimethoprim/Sulfame tho xazole R F O:GNR Organism: Gram negative rivas : O:CRAB Isolated Isolated Aerobic Culture Antibiotic Interpretation EVENS Status Organism: 1.1 Performing Lab: see note SEE REPORT - [employer] Id information not found for OBX-specific furniture reproducer legend LC - [facility] Fungus (Mycology) Culture (N ot yet reviewed by provider) Interpretation: Performing Lab: Notes/Report: [facility] , Fungus (Mycology) Culture See Below For Report Fungus (Mycology) Culture Fungus (Mycology) Culture Culture Report: Fungus (Mycology) Culture Fungus (Mycology) Culture The specimen submitted for fungus culture has been received and Fungus (Mycology) Culture Fungus (Mycology) Culture culture has been initiated. Fungus (Mycology) Culture Fungus (Mycology) Culture Performed at: [facility] Fungus (Mycology) Culture Fungus (Mycology) Culture [address] [place] [id number] Fungus (Mycology) Culture Fungus (Mycology) Culture Ruling Machine Set Up Operator: Lalo Everett PhD, Phone: [phone] Fungus (Mycology) Culture Performing Lab: see note - [facility] SEE REPORT - [employer] Id information not found for OBX-specific furniture reproducer legend Fungus Stain (Not yet review ed by provider) Interpretation: Performing Lab: Notes/Report: [facility] , Fungus Stain See Below For Report Fungus Stain Fungus Stain SHAQ/Calcofluor preparation: no fungus observed. Fungus Stain Performing Lab: see note - [facility] Reason For Referral No Information Problems Problem Type SNOMED Code ICD Code Onset Dates Problem Status W/U Status Risk Notes Problem Foot ulcer due to type 2 diabetes mellitus (3778178513709) Type 2 diabetes mellitus with foot ulcer (E11.621) Active confirmed Problem Chronic ulcer of foot (217392046) 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 layer exposed (L97.422) Active confirmed Problem Hypertension (87934602) Hypertension (I10) Active confirmed Problem Acquired hallux rigidus (3973832) Hallux rigidus of left foot (M20.22) Active confirmed Problem Ulcer of left foot (disorder) (277831396) Chronic ulcer of left foot limited to breakdown of skin (L97.521) Active confirmed Problem Polyneuropathy due to type 2 diabetes mellitus (137979415) Diabetes mellitus with polyneuropathy (E11.42) Active confirmed Problem Foot ulcer due to type 2 diabetes mellitus (0242003697920) Diabetes mellitus with foot ulcer due to multiple causes (E11.621) Active confirmed Problem 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 confirmed Problem Hallux rigidus (8851398) Hallux rigidus (M20.20) Active confirmed Problem Acute osteomyelitis of ankle and/or foot (381563772) Acute osteomyelitis of right ankle or foot (M86.171) Active confirmed Problem Chronic foot ulcer, limited to breakdown of skin, left (L97.521) Active confirmed Problem Foot ulcer, left , with fat layer exposed (L97.522) Active confirmed Problem High cholesterol (78506195) High cholesterol (E78.00) Active confirmed Problem Chronic ulcer of great toe of left foot, limited to breakdown of skin (L97.521) Active confirmed Problem Acute osteomyelitis of ankle and/or foot (220874725) Acute hematogenous osteomyelitis of left foot (M86.072) Active confirmed Problem Non-pressure chronic ulcer of right heel and midfoot with other specified severity (L97.418) Active confirmed Problem Non-pressure chronic ulcer of other part of left foot with other specified severity (L97.528) Active confirmed Problem Ulcer of big toe (disorder) (143091020) Chronic ulcer of great toe of left foot with fat layer exposed (L97.522) Active confirmed Problem Ankle ulcer (054892761) Chronic ulcer of right ankle with fat layer exposed (L97.312) Active confirmed Problem Ankle ulcer (379513132) Ischemic ulcer of right ankle, 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) Active confirmed Problem Chronic ulcer of plantar surface of right midfoot with fat layer exposed (L97.412) Active confirmed Problem Chronic ulcer of left heel (disorder) (0451572459347562 5) Chronic ulcer of left heel limited to breakdown of skin (L97.421) Active confirmed Problem Ischemic ulcer o f left heel with fat layer exposed (L97.422) Active confirmed Encounters Encounter Location Date Provider Diagnosis [facility] [address] [place] [address] 04/26/2024 Natanael Feldman [facility] [address] [place] [address] 04/28/2024 Natanael [facility] Plan Of Treatment Pending Test Test Name Order Date GRAM STAIN 05/31/2024 PROF CHEM 8 (BAS METB) 09/30/2022 AFB Specimen Processing 04/26/2024 AFB Specimen Processing 05/31/2024 AFB Specimen Processing 04/26/2024 Acid Fast Smear 05/31/2024 Acid Fast Smear 04/26/2024 Acid Fast Culture 04/26/2024 Acid Fast Culture 05/31/2024 XR foot RT min 3V 04/26/2024 XR foot RT min 3V 04/26/2024 Fungus Stain 04/26/2024 Fungus Stain 04/26/2024 Fungus Stain 05/31/2024 Fungus (Mycology) Culture 05/31/2024 Fungus (Mycology) Culture 05/31/2024 Fungus (Mycology) Culture 04/26/2024 Gram Stain Result 04/26/2024 Gram Stain Result 04/25/2024 Gram Stain Result 04/26/2024 Aerobic Culture 04/26/2024 Aerobic Culture 05/31/2024 Aerobic Culture 05/31/2024 Aerobic Culture 04/25/2024 Aerobic Culture 04/26/2024 Aerobic Culture 04/25/2024 Anaerobic Culture 04/26/2024 Anaerobic Culture 04/25/2024 Anaerobic Culture 05/31/2024 Anaerobic Cult, Extended Incub Tissue Culture 04/26/2024 Insurance Providers Payer Name Payer Address Payer Phone Subscriber Number Group Number Insured Name Patient Relationship to Insured Coverage Start Date Coverage End Date [employer] [address] [address] [place] [id number] Trev Mckeon Self - patient is the insured
--- OUTSIDE RECORDS SUMMARY | 2024-10-04 11:46 | XMS_ITS | Encounter Summary ---
Author Organization [facility] Address [address] [place] [address] Care Team Providers Care Natural Resources Extension Educator Name Role Phone Natalie Ryan MD Primary Care Provider [phone] Blossom Cody CLAIMS ACCOUNT MANAGER Unavailable [phone] Encounter Details Date Type Department Care Team ([facility] Contact Info) Description 08/16/2024 Orders Only [facility] [address] [place] [address] Terence Glass MD [address] [place] [address] Social History Tobacco Use Types Packs/Day Years [...] often do you attend chur ch or religion services? More than 4 times per year 03/23/2023 Do you belong to any clubs o r organizations such as sikh groups, unions, fraternal or athletic groups, or [...] EDT Office Visit [facility] [address] [place] [address] Maria Fernanda Olguin NP [address] [place] [id number] documented as of this encounter Procedures Procedure Name Priority Date/Time Associated Diagnosis Comments DIABETIC RETINOPATHY SCREENING - OU - BOTH EYES Routine 08/15/2024 3:07 PM EDT documented in this encounter Results * (ABNORMAL) Diabetic Retinopathy Screening - OU - Both Eyes (08/15/2024 3:07 PM EDT) Anatomical Region Laterality Modality Head Other Terence Glass MD OPHTH PHOTOGRAPHY Final Result documented in this encounter Visit Diagnoses Not on filedocumented in this encounter Care Teams Natural Resources Extension Educator Relationship Specialty Start Date End Date Natalie Ryan MD [address] [place], [place] [id number] PCP - General Family Medicine 09/15/22 Blossom Cody NP [address] [place] [place], [place] [id number] Nurse Practitioner Family Medicine 01/19/24 documented as of this encounter
--- OUTSIDE RECORDS SUMMARY | 2024-10-04 11:46 | XMS_ITS | Encounter Summary ---
Author Organization [facility] Address [address] [place] [address] Care Team Providers Care Senior Brand Manager Name Role Phone Natalie Ryan MD Primary Care Provider [phone] Blossom Cody WARD SERVICE SUPERVISOR Unavailable [phone] Encounter Details Date Type Department Care Team ([facility] Contact Info) Description 06/09/2023 Orders Only [facility] [address] [place] [address] Link Ortega, WARD SERVICE SUPERVISOR [address] [facility] [place] [address] Social History Tobacco Use Types [...] often do you attend chur ch or gnosticism services? More than 4 times per year 03/23/2023 Do you belong to any clubs o r organizations such as gnosticist groups, unions, fraternal or athletic groups, or [...] place to sleep or slept in a alf (including now)? Patient refused 03/23/2023 Sex and [...] EDT Office Visit [facility] [address] [facility] [place] [id number] Maria Fernanda Olguin NP [address] [facility] [address] [place], [place] [id number] documented as of this encounter Procedures Procedure Name Priority Date/Time Associated Diagnosis Comments HEMOGLOBIN A1C Routine 06/09/2023 11:14 AM EST documented in this encounter Results * Hemoglobin A1c (06/09/2023 11:14 AM EST) HEMOGLOBIN A1C 8.2 Blood Venous blood specimen / Unknown Link Ortega WARD SERVICE SUPERVISOR LAB BLOOD ORDERABLES Edited Resu lt - Final documented in this encounter Visit Diagnoses Not on filedocumented in this encounter Care Teams Senior Brand Manager Relationship Specialty Start Date End Date Natalie Ryan MD [address] [facility] [address] [place], [place] [phone] PCP - General Family Medicine 09/15/22 Blossom Cody NP [address] [facility] [address] [place], [place] [phone] Nurse Practitioner Family Medicine 01/19/24 documented as of this encounter
--- OUTSIDE RECORDS SUMMARY | 2024-10-04 11:46 | XMS_ITS | Encounter Summary ---
Author Organization [facility] Address [address] [facility] [place] [address] Care Team Providers Care Exchange Mechanic Name Role Phone Natalie Ryan MD Primary Care Provider [phone] Blossom Cody DOOR REPAIRMAN Unavailable [phone] Encounter Details Date Type Department Care Team ([facility] Contact Info) Description 10/02/2022 Abstract [facility] [address] [place] [address] Natalie Ryan MD [address] [place], [place] [phone] Social History Tobacco Use Types Packs/Day Years Used Date Smoking Tobacco: Never Assessed Sex and Gender Information Value Date Recorded Sex Assigned at Not on file Legal Sex Male 6:33 PM EDT Gender Identity Not on file Sexual Orientation Not on file documented as of this encounter Plan of Treatment Upcoming Encounters Date Type Department Care Team ([facility] Contact Info) Description 10/19/2024 10:00 AM EDT Office Visit [facility] [address] [place] [address] Maria Fernanda Olguin NP [address] [place], [place] [phone] documented as of this encounter Visit Diagnoses Not on filedocumented in this encounter Care Teams Exchange Mechanic Relationship Specialty Start Date End Date Natalie Ryan MD [address] [place], [place] [phone] PCP - General Family Medicine 09/15/22 Blossom Cody NP [address] [place] [address] Nurse Practitioner Family Medicine 01/19/24 documented as of this encounter
--- OUTSIDE RECORDS SUMMARY | 2024-10-04 11:46 | XMS_ITS | Encounter Summary ---
Author Organization [facility] Address [address] [place] [address] Care Team Providers Care Anesthesiology Medical Doctor Name Role Phone Natalie Hernandez MD Primary Care Provider [phone] [facility] SALESPERSON Unavailable [phone] Encounter Details Date Type Department Care Team ([facility] st Contact Info) Description 04/26/2024 Clinisync Result Encounter [facility] Department Unsolicited [...] often do you attend chur ch or samaritan services? More than 4 times per year 03/23/2023 Do you belong to any clubs o r organizations such as buddhism groups, unions, fraternal or athletic groups, or [...] place to sleep or slept in a residential (including now)? Patient refused 03/23/2023 Sex and [...] EDT Office Visit [facility] [address] [place] [id number] Maria Fernanda Olguin, JENNYFER [address] [place] [address] documented as of this encounter Procedures Procedure Name Priority Date/Time Associated Diagnosis Comments ANAEROBIC CULT, EXTENDED INCUB Routine 04/26/2024 10:07 AM EST TISSUE CULTURE Routine 04/26/2024 10:07 AM EST ANAEROBIC CULTURE Routine 04/26/2024 10: 07 AM EST AEROBIC CULTURE Routine 04/26/2024 10:07 AM EST GRAM STAIN RESULT Routine 04/26/2024 10: 07 AM EST GRAM STAIN RESULT Routine 04/26/2024 10: 07 AM EST FUNGUS STAIN Routine 04/26/2024 10:07 AM EST FUNGUS STAIN Routine 04/26/2024 10:07 AM EST ACID FAST CULTURE Routine 04/26/2024 10: 07 AM EST ACID FAST CULTURE Routine 04/26/2024 10: 07 AM EST FUNGUS (MYCOLOGY) CULTURE Routine 04/26/2024 10:07 AM EST FUNGUS (MYCOLOGY) CULTURE Routine 04/26/2024 10:07 AM EST ACID FAST SMEAR Routine 04/26/2024 10:07 AM EST ACID FAST SMEAR Routine 04/26/2024 10:07 AM EST AFB SPECIMEN PROCESSING Routine 04/26/2024 10:07 AM EST AFB SPECIMEN PROCESSING Routine 04/26/2024 10:07 AM EST XR FOOT RT MIN 3V 04/26/2024 9:0 3 AM EST documented in this encounter Results * ANAEROBIC CULT, EXTENDED INCUB (04/26/2024 10:07 AM EST) ANAEROBIC CULT, EXTENDED INCUB Anaerobic Cult, Extended Incub TB ANAEROBIC CULT, EXTENDED INCUB Specimen has been received and testing has been initiated. [facility] ANAEROBIC CULT, EXTENDED INCUB Organism: Prevotella disiens : [facility] ANAEROBIC CULT, EXTENDED INCUB *ABNORMAL* TB ANAEROBIC CULT, EXTENDED INCUB Scant growth [facility] ANAEROBIC CULT, EXTENDED INCUB Studies at [employer] have confirmed the [facility] ANAEROBIC CULT, EXTENDED INCUB observations of others who have demonstrated that [facility] ANAEROBIC CULT, EXTENDED INCUB Prevotella, Porphyromonas and Bacteroides species [facility] ANAEROBIC CULT, EXTENDED INCUB other than Bacteroides fragilis group are routinely [facility] ANAEROBIC CULT, EXTENDED INCUB susceptible to Cefoxitin, Chloramphenicol, and [facility] ANAEROBIC CULT, EXTENDED INCUB Metronidazole and are usually resistant to Penicillin. [facility] ANAEROBIC CULT, EXTENDED INCUB Prevotella disiens [facility] ANAEROBIC CULT, EXTENDED INCUB O:PREDIS Isolated [facility] 04/26/2024 10:0 7 AM EST 04/26/2024 12:13 PM EST Narrative [facility] - 05/11/2024 4:08 PM EST us Generic External Data Provider LAB BLOOD ORDERAB LES Final Result [facility] * ANAEROBIC CULTURE (04/26/2024 10:07 AM EST) ANAEROBIC CULTURE Anaerobic Culture [facility] ANAEROBIC CULTURE Holding for possible anaerobes. TB ANAEROBIC CULTURE Organism: Prevotella disiens : [facility] ANAEROBIC CULTURE *ABNORMAL* TB ANAEROBIC CULTURE Light growth TB ANAEROBIC CULTURE Studies at [facility] have confirmed the [facility] ANAEROBIC CULTURE observations of others who have demonstrated that [facility] ANAEROBIC CULTURE Prevotella, Porphyromonas and Bacteroides species TB ANAEROBIC CULTURE other than Bacteroides fragilis group are routinely [facility] ANAEROBIC CULTURE susceptible to Cefoxitin, Chloramphenicol, and TB ANAEROBIC CULTURE Metronidazole and are usually resistant to Penicillin. TB ANAEROBIC CULTURE Prevotella disiens TB ANAEROBIC CULTURE O:PREDIS Isolated TB 04/26/2024 10:0 7 AM EST 04/26/2024 12:13 PM EST Narrative [facility] - 05/02/2024 3:08 PM EST Generic External Data Provider LAB BLOOD ORDERAB LES Final Result Performing Organization Address City/[facility]/ZIP Co de Phone Number [facility] * FUNGUS (MYCOLOGY) CULTURE (04/26/2024 10:07 AM EST) FUNGUS (MYCOLOGY) CULTURE Fungus (Mycology) Culture WILL FOLLOW [facility] FUNGUS (MYCOLOGY) CULTURE No yeast or mold isolated after 4 weeks. [facility] FUNGUS (MYCOLOGY) CULTURE Performed at: [facility] FUNGUS (MYCOLOGY) CULTURE [address], [place] [id number] [facility] FUNGUS (MYCOLOGY) CULTURE Brake Repairer: Lalo Everett PhD, Phone: [phone] [facility] 04/26/2024 10:0 7 AM EST 04/26/2024 12:13 PM EST Narrative [facility] - 05/25/2024 12:08 PM EST Comment right foot ulcer Generic External Data Provider LAB BLOOD ORDERAB LES Final Result [facility] * FUNGUS STAIN (04/26/2024 10:07 AM EST) FUNGUS STAIN Fungus Stain [facility] FUNGUS STAIN SHAQ/Calcofl uor preparation : no fungus observed. [facility] 04/26/2024 10:0 7 AM EST 04/26/2024 12:13 PM EST Narrative [facility] - 05/25/2024 12:08 PM EST Comment right foot ulcer Generic External Data Provider LAB BLOOD ORDERAB LES Final Result Performing Organization Address [facility] Co de Phone Number ADELA [facility] * FUNGUS (MYCOLOGY) CULTURE (04/26/2024 10:07 AM EST) FUNGUS (MYCOLOGY) CULTURE Fungus (Mycology) Culture WILL FOLLOW [facility] FUNGUS (MYCOLOGY) CULTURE No yeast or mold isolated after 4 weeks. [facility] FUNGUS (MYCOLOGY) CULTURE Performed at: [facility] FUNGUS (MYCOLOGY) CULTURE [address], [place] [id number] [facility] FUNGUS (MYCOLOGY) CULTURE Brake Repairer: Lalo Everett PhD, Phone: [phone] [facility] 04/26/2024 10:0 7 AM EST 04/26/2024 12:13 PM EST Narrative CLIN[facility]YNC - 05/25/2024 12:08 PM EST Comment right foot fascia for culture Generic External Data Provider LAB BLOOD ORDERAB LES Final Result Performing Organization Address [facility] Phone Number [facility] * FUNGUS STAIN (04/26/2024 10:07 AM EST) FUNGUS STAIN Fungus Stain TB FUNGUS STAIN SHAQ/Calcofl uor preparation : no fungus observed. [facility] 04/26/2024 10:0 7 AM EST 04/26/2024 12:13 PM EST Narrative CLIN[facility]YNC - 05/25/2024 12:08 PM EST Comment right foot fascia for culture [facility] External Data Provider LAB BLOOD ORDERAB LES Final Result Performing Organization Address [facility] Co de Phone Number [facility] * GRAM STAIN RESULT (04/26/2024 10:07 AM EST) GRAM STAIN RESULT Gram Stain Result TB GRAM STAIN RESULT No white blood cells seen. [facility] GRAM STAIN RESULT TB GRAM STAIN RESULT Rare gram positive cocci [facility] GRAM STAIN RESULT Performed at: [facility] TB GRAM STAIN RESULT [address], [place] [id number] TB GRAM STAIN RESULT Brake Repairer: Lalo Everett PhD, Phone: [phone] [facility] 04/26/2024 10:0 7 AM EST 04/26/2024 12:13 PM EST Narrative CLINISYNC - 05/02/2024 3:08 PM EST Generic External Data Provider LAB BLOOD ORDERAB LES Final Result Performing Organization Address [facility] Phone [facility] * AEROBIC CULTURE (04/26/2024 10:07 AM EST) AEROBIC CULTURE Aerobic Culture WILL FOLLOW TB AEROBIC CULTURE TB AEROBIC CULTURE Mixed skin maximiliano TB 04/26/2024 10:0 7 AM EST 04/26/2024 12:13 PM EST Narrative CLINISYNC - 05/02/2024 3:08 PM EST Generic External Data Provider LAB BLOOD ORDERAB LES Final Result Performing Organization Address [facility] Phone Number [facility] * ACID FAST CULTURE (04/26/2024 10:07 AM EST) ACID FAST CULTURE Acid Fast Culture Specimen has been received and testing has been initiated. [facility] ACID FAST CULTURE Negative [facility] ACID FAST CULTURE No acid fast bacilli isolated after 6 weeks. TB ACID FAST CULTURE Performed at: [facility] TB ACID FAST CULTURE [address], [place] [id number] TB ACID FAST CULTURE Brake Repairer: Lalo Everett PhD, Phone: [phone] [facility] 04/26/2024 10:0 7 AM EST 04/26/2024 12:13 PM EST Narrative CLINISYNC - 06/10/2024 9:09 AM EST Generic External Data Provider LAB BLOOD ORDERAB LES Final Result Performing Organization Address [facility]/State/ZIP Co de Phone Number [facility] * ACID FAST SMEAR (04/26/2024 10:07 AM EST) ACID FAST SMEAR Acid Fast Smear Negative [facility] 04/26/2024 10:0 7 AM EST 04/26/2024 12:13 PM EST Narrative CLINISYNC - 06/10/2024 9:09 AM EST Generic External Data Provider LAB BLOOD ORDERAB LES Final Result Performing Organization Address [facility] Co de Phone Number [facility] * AFB SPECIMEN PROCESSING (04/26/2024 10:07 AM EST) AFB SPECIMEN PROCESSING AFB Specimen Processing [facility] AFB SPECIMEN PROCESSING Tissue Grinding [facility] 04/26/2024 10:0 7 AM EST 04/26/2024 12:13 PM EST Narrative CLINISYNC - 06/10/2024 9:09 AM EST Generic External Data Provider LAB BLOOD ORDERAB LES Final Result Performing Organization Address [facility] de Phone Number [facility] * TISSUE CULTURE (04/26/2024 10:07 AM EST) Pathologist [facility] TISSUE CULTURE Tissue Culture WILL FOLLOW [facility] TISSUE CULTURE [facility] TISSUE CULTURE Specimen has been received and testing has been initiated. [facility] 04/26/2024 10:0 7 AM EST 04/26/2024 12:13 PM EST Narrative CLINISYNC - 05/11/2024 4:08 PM EST Generic External Data Provider LAB BLOOD ORDERAB LES Final Result Performing Organization Address [facility] de Phone Number [facility] * GRAM STAIN RESULT (04/26/2024 10:07 AM EST) GRAM STAIN RESULT Gram Stain Result TB GRAM STAIN RESULT No white blood cells seen. TB GRAM STAIN RESULT TB GRAM STAIN RESULT No organisms seen TB GRAM STAIN RESULT Performed at: [facility] TB GRAM STAIN RESULT [address], [place] [id number] TB GRAM STAIN RESULT Brake Repairer: Lalo Everett PhD, Phone: [phone] [facility] 04/26/2024 10:0 7 AM EST 04/26/2024 12:13 PM EST Narrative CLINISYNC - 05/11/2024 4:08 PM EST Generic External Data Provider LAB BLOOD ORDERAB LES Final Result Performing Organization Address [facility] Co de Phone Number [facility] * ACID FAST CULTURE (04/26/2024 10:07 AM EST) ACID FAST CULTURE Acid Fast Culture Specimen has been received and testing has been initiated. [facility] ACID FAST CULTURE Negative [facility] ACID FAST CULTURE No acid fast bacilli isolated after 6 weeks. TB ACID FAST CULTURE [facility] at[facility] ACID FAST CULT[facility] [address], [place] [id number] [facility] ACID FAST CULTURE Brake Repairer: Lalo Everett PhD, Phone: [phone] [facility] 04/26/2024 10:0 7 AM EST 04/26/2024 12:13 PM EST Narrative CLINISYNC - 06/10/2024 9:09 AM EST Comment right foot fascia for culture Generic External Data Provider LAB BLOOD ORDERAB LES Final Result Performing Organization Address [facility] Co de Phone Number [facility] * ACID FAST SMEAR (04/26/2024 10:07 AM EST) ACID FAST SMEAR Acid Fast Smear Negative TB 04/26/2024 10:0 7 AM EST 04/26/2024 12:13 PM EST Narrative CLINISYNC - 06/10/2024 9:09 AM EST Comment right foot fascia for culture us Generic External Data Provider LAB BLOOD ORDERAB LES Final Result Performing Organization Address City/[facility]/ZIP Co de Phone Number [facility] * AFB SPECIMEN PROCESSING (04/26/2024 10:07 AM EST) AFB SPECIMEN PROCESSING AFB Specimen Processing [facility] AFB SPECIMEN PROCESSING Tissue Grinding [facility] 04/26/2024 10:0 7 AM EST 04/26/2024 12:13 PM EST Narrative ADELA - 06/10/2024 9:09 AM EST Comment right foot fascia for culture us Generic External Data Provider LAB BLOOD ORDERAB LES Final Result [facility] * XR FOOT RT MIN 3V (04/26/2024 9:03 AM EST) Anatomical Region Laterality Modality Other 04/26/2024 9:03 AM EST Narrative 04/26/2024 9:06 [place] [address] XRay Report Signed Patient: TREV MCKEON MR#: [id number] : 1980 Acct:[id number] Age/Sex: 43 / M ADM Date: 04/25/24 Loc: Attending Dr: Martell Navas Ordering Physician: Martell Navas Date of Service: 04/25/24 Procedure(s): XR foot RT min 3V Accession Number(s): [id number] cc: Martell Navas; NATALIE HERNANDEZ [place] [id number] Patient Name: TREV MCKEON MRN: [facility]:[id number] date: 1980 Sex: M Assigned Patient Location: Current Patient Location: [place] Accession/Order Number: [id number] Exam Date: 04/25/2024 11:58 Report Date: 04/26/2024 [...] M.D. Signed By: 04/26/24905 DD/ 2 TD/TT: Rn Family: Procedure Note Radiology, Radiologist, MD - 04/26/2024 [place] [address] XRay Report Signed Patient: TREV MCKEON BMR#: [id number] : 1980Acct:[id number] Age/Sex: 43 / MADM Date: 04/25/24 Loc: Attending Dr: Martell Navas Ordering Physician: Martell Navas Date of Service: 04/25/24 Procedure(s): XR foot RT min 3V Accession Number(s): [id number] cc: Martell Navas; NATALIE HERNANDEZ [place] [id number] Patient Name: TREV MCKEON MRN: [facility]:[id number] date: 1980 Sex: M Assigned Patient Location: Current Patient Location: [place] Accession/Order Number: [id number] Exam Date: 04/25/2024 11:58 Report Date: 04/26/2024 09:03 At the request of: MARTELL NAVAS Procedure: XR foot RT min 3V PROCEDURE: XR foot RT min 3V HISTORY: RIGHT FOOT PAIN COMPARISON: XR foot right 11/02/2023 FINDINGS: BONES:Prior amputation of the forefoot. Subtle, less well-defined cortexof the plantar surface of the midfoot. SOFT TISSUES:Prominent soft tissue swelling. EFFUSION:None visible. OTHER: Negative. XR/XR foot RT min 3V IMPRESSION: 1. Patient history states large wound involving the plantar midfoot. Deepto this area there is suggestive of slightly less well defined cortex whichmay indicate early osteomyelitis. Electronically authenticated by: KENY NAYAK Date: 04/26/2024 09:03 Dictated By: Keny Nayak M.D. Signed By:04/26/24905 DD/ 2 TD/TT: Rn Family: us Generic External Data Provider [facility] IMAG[facility] Final Result documented in this encounter Visit Diagnoses Not on filedocumented in this encounter Care Teams Anesthesiology Medical Doctor Relationship Specialty Start Date End Date Natalie Hernandez MD [address] [place] [address] PCP - General Family Medicine 09/15/22 Blossom Cody NP [address] [place] [address] Nurse Practitioner Family Medicine 01/19/24 documented as of this encounter
--- OUTSIDE RECORDS SUMMARY | 2024-10-04 11:46 | XMS_ITS | Clinical Summary ---
Author Organization [facility] Healthcare Address [address] [place] [address] Care Team Providers Care Air Tucker Name Role Phone Natalie Ryan MD Primary Care Provider [phone] Blossom Cody SEWING MACHINE ADJUSTER Unavailable Allergies No known active allergies Medications aspirin 81 MG EC tablet Take 1 tablet by mouth in the morning. Active insulin glargine (Lantus) 100 UNIT/ML injection Inject 44 Units under the skin in the morning and 44 Units in the evening. Active insulin lispro (HumaLOG) 100 UNIT/ML injection Inject 1 Units under the skin in the morning and 1 Units at noon and 1 Units in the evening. Inject with meals. Per ISS scale from endo. Active metFORMIN (Glucophage) 500 MG tablet Take 2 tablets by mouth in the morning and 2 tablets in the evening. Take with meals. Active dapagliflozin (Farxiga) 10 MG 01/17/20 24 Active Victoza 18 MG/3ML injection Inject 1.8 mg under the skin Daily 10/27/19 24 Active urea (Carmol) 40 % cream APPLY TO THE AFFECTED AREA ON BOTH FEET EVERY DAY DIRECTED 12/01/19 24 Active atorvastatin (Lipitor) 40 MG tabletIndications:Pur e hyperglyceridemia (CMS/HCC) Take 1 tablet (40 mg) by mouth Daily 90 tablet 3 02/28/20 24 Active lisinopril 30 MG tabletIndications:Ess ential hypertension (CMS/HCC) Take 1 tablet (30 mg) by mouth Daily 90 tablet 1 04/19/20 24 025 Active traZODone (Desyrel) 100 MG tabletIndications:Dep ressed mood,Insomnia, unspecified type Take 1 tablet (100 mg) by mouth as needed at bedtime for sleep 30 tablet 1 07/20/19 25 Active Active Problems Problem Noted Date Diagnosed Date Amputation of toe, traumatic, left, sequela 10/09 Overview (11/03/2023): Lt forefoot Essential hypertension 06/16/2023 Acquired hallux valgus 10/02/2022 Arthritis of left foot 10/02/2022 Diabetic autonomic neuropath y associated with type 2 diabetes mellitus 10/02/2022 Diabetic neuropathic arthropathy 10/02/2022 Diabetic polyneuropathy asso ciated with type 2 diabetes mellitus 10/02/2022 Dyslipidemia 10/02/2022 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 Morbid obesity 10/02/2022 Poorly controlled diabetes mellitus 10/02/2022 Hypertriglyceridemia 10/02/2022 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 2022 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 10/02/2022 Hyperglycemia due to type 2 diabetes mellitus Vitamin B 12 deficiency 10/02/2022 Resolved Problems Problem Noted Date Diagnosed Date Resolved Date Ulcerated, foot, left, limit ed to breakdown of skin 10/02/2022 06/17/2023 Non-pressure chronic ulcer o f other part of unspecified foot with unspecified severity 10/02/2022 06/17/2023 Osteomyelitis of great toe of right foot 10/02/2022 03/24/2023 Osteomyelitis of right foot 10/02/2022 06/17/2023 Pressure ulcer of other site, stage 2 10/02/2022 06/17/2023 Pressure ulcer of other site, stage 1 10/02/2022 06/17/2023 Ulcer of foot due to type 2 diabetes mellitus 10/03/19 23 06/17/2023 History of COVID-19 05/13/2020 06/17/19 24 Hx of diabetic neuropathy 04/13/2018 Encounters Date Type Department Care Team Description 08/21/2024 Orders Only [facility] [address] [place] [address] Link Ortega NP 08/16/2024 Orders Only [facility] [address] [place] [address] Terence Glass MD 07/19/2024 9:30 AM EDT Office Visit [facility] [address] [place] [address] Blossom Cody NP Diabetic polyneuropathy associated with type 2 diabetes mellitus (CMS/HCC) (Primary Dx); 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) ; 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, sequela (CMS/HCC); Type 2 diabetes mellitus with hyperglycemia, with long-term current use of insulin (CMS/HCC); Ulcer of right foot, unspecified ulcer stage (HCC) (CMS/HCC); Poorly controlled diabetes mellitus (CMS/HCC); Dyslipidemia (CMS/HCC) ; Hypertriglyceridemia (CMS/HCC) ; Essential hypertension; Morbid obesity (CMS/HCC); Amputation of toe, traumatic, left, sequela (CMS/HCC); Vitamin B 12 deficiency; Depressed mood; Insomnia, unspecified type 07/19/2024 Bamboo flowsheet [facility] [address] [place] [address] Blossom Cody NP 07/19/2024 Travel from Last 3 Months Immunizations Immunization Administration Dates Next Due Influenza, injectable, MDCK, preservative free, quadrivalent 02/13/2020 Influenza, injectable, quadr ivalent, preservative free 03/24/2023,03/28/2021,02/22/2019,2017 Influenza, seasonal, injecta ble, preservative free 03/14/2024 TD (adult), 2 Lf tetanus tox oid, preservative free, adsorbed 07/05/2023 Td (adult), 5 Lf tetanus tox oid, preservative free, adsorbed 08/26/2021 Family History Medical History Relation Name Comments Cancer Father Hypertension Father Diabetes Mother Hypertension Mother Melanoma Mother history of Relation Name Status Comments Father Alive Mother Alive Social History Tobacco Use Types Packs/Day Years Used Date Smoking Tobacco: Never Smokeless Tobacco: Never Tobacco Cessation:Counseling Given: Not Answered Alcohol Use Standard Drinks/Week Comments Yes 4 [...] 03/23/2023 How often do you attend chur or tenriism services? More than 4 times per year 03/23/2023 Do you belong to any clubs o r organizations such as sikhism groups, unions, fraternal or athletic groups, or [...] place to sleep or slept in a snf (including now)? Patient refused 03/23/2023 Sex and Gender Information Value Date Recorded Sex Assigned at Not on file Legal Sex Male 6:33 PM EDT Gender Identity Not on file Sexual Orientation Not on file Last Filed Vital Signs Vital Sign Reading Time Taken Comments Blood Pressure 138/80 07/19/2024 9:57 AM EDT Pulse 80 07/19/2024 9:22 AM EDT Temperature - - Respiratory Rate - - Oxygen Saturation - - Inhaled Oxygen Concentration - - Weight 165 kg (363 lb 12.8 oz) 07/19/2024 9:22 A M EDT Height 181.6 cm (5' 11.5 ) 10/29/2023 9:37 AM ED T Body Mass Index 50.03 10/29/2023 9:37 AM EDT Plan of Treatment Upcoming Encounters Date Type Department Care Team (Late st Contact Info) Description 10/19/2024 10:00 AM EDT Office Visit [facility] [address] [place] [id number] Maria Fernanda Olguin NP [address] [place], [place] [id number] Health Maintenance Due Date Last Done Comments Diabetes: Urine Protein Screening 03/24/2024 03/24/2023, 01/08/2022, 12/27/2020, Additional history exists Diabetes: Hemoglobin A1C 11/20/202408/21/2 025, 01/26/2024, 10/19/2023, Additional history exists Diabetes: Retinopathy Screening 08/15/2026 08/15/2024, 07/27/2023, 07/25/2021, Additional history exists Influenza Vaccine Completed 03/14/2024, , 03/28/2021, Additional history exists Procedures Procedure Name Priority Date/Time Associated Diagnosis Comments HEMOGLOBIN A1C Routine 08/21/2024 10:48 AM EDT DIABETIC RETINOPATHY SCREENING - OU - BOTH EYES Routine 08/15/2024 3:07 PM EDT MICROALBUMIN / CREATININE URINE RATIO Routine 03/24/2023 10:30 AM EST Diabetic autonomic neuropathy associated with type 2 diabetes mellitus ([facility]/HCC) Diabetic polyneuropathy associated with type 2 diabetes mellitus ([facility]) from Last 3 Months or Most Recently Relevant to Health Maintenance Results * Hemoglobin A1c (08/21/2024 10:48 AM EDT) HEMOGLOBIN A1C 7.9 Blood Venous blood specimen / Unknown us Link Ortega SEWING MACHINE ADJUSTER LAB BLOOD ORDERABLES Edited Resu lt - Final * (ABNORMAL) Diabetic Retinopathy Screening - OU - Both Eyes (08/15/2024 3:07 PM EDT) Anatomical Region Laterality Modality Head Other us Terence Glass MD OPHTH PHOTOGRAPHY Final Result * Microalbumin / creatinine, urine ratio (03/24/2023 10:30 AM EST) CREATININE, RANDOM URINE 56 20 - 320 mg/dL [facility] ALBUMIN, URINE 1.1 See Note: mg/dL [facility] Comment: Reference Range: Reference Range Not established ALBUMIN/CREATININE RATIO, RANDOM URINE 20 <30 mcg/mg creat [facility] Comment: The ADA defines abnormalities in albumin excretion as follows: Albuminuria Category Result (mcg/mg creatinine) Normal to Mildly increased <30 Moderately increased 30-299 Severely increased > OR = 300 The ADA recommends that at least two of three specimens collected within a 3-6 month period be abnormal before considering a patient to be within a diagnostic category. Urine Urine specimen obtained by clean catch procedure / Unknown 03/24/2023 10:30 AM EST 03/24/2023 5:00 PM EST Narrative [facility] - 03/25/2023 2:51 PM EST SPLIT 03/24/2023 FROM [id number] Resulting Agency Comment Performing Organization Information Site ID: [id number] Name: [facility] Address: [address] [place] [address], [address] [place] [id number] Director: Mauro Handley MD Maria Fernanda Olguin NP LAB URINE ORDERABLES Final Result [facility] from Last 3 Months or Most Recently Relevant to Health Maintenance Insurance [employer] Care Teams Air Tucker Relationship Specialty Start Date End Date Natalie Ryan MD [address] [place] [address] PCP - General Family Medicine 09/15/22 Blossom Cody NP [address] [place] [address] Nurse Practitioner Family Medicine 01/19/24
--- OUTSIDE RECORDS SUMMARY | 2024-10-04 11:46 | XMS_ITS | Encounter Summary ---
Author Organization [facility] Address [address] [place] [address] Care Team Providers Care Celery Cutter Name Role Phone Natalie Ryan MD Primary Care Provider [phone] Blossom Cody SUMMER LAW ASSOCIATE Unavailable [phone] Encounter Details Date Type Department Care Team ([facility] Contact Info) Description 12/24/2023 Orders Only [facility] [address] [place] [address] Terence Glass MD [address] [place] [address] Social History Tobacco Use Types [...] often do you attend chur ch or anabaptist services? More than 4 times per year 03/23/2023 Do you belong to any clubs o r organizations such as quaker groups, unions, fraternal or athletic groups, or [...] Office Visit [facility] [address] [place] [address] Maria Fernanda Olguin NP [address] [place] [id number] documented as of this encounter Procedures Procedure Name Priority Date/Time Associated Diagnosis Comments DIABETIC RETINOPATHY SCREENING - OU - BOTH EYES Routine 07/27/2023 10:30 AM EDT documented in this encounter Results * Diabetic Retinopathy Screening - OU - Both Eyes (07/27/2023 10:30 AM EDT) Anatomical Region Laterality Modality Head Other Terence Glass MD OPHTH PHOTOGRAPHY Final Result documented in this encounter Visit Diagnoses Not on filedocumented in this encounter Care Teams Celery Cutter Relationship Specialty Start Date End Date Shelby, Natalie Lozada MD [address] [place] [id number] PCP - General Family Medicine 09/15/22 Blossom Cody NP [address] [place] [id number] Nurse Practitioner Family Medicine 01/19/24 documented as of this encounter
--- OUTSIDE RECORDS SUMMARY | 2024-10-04 11:46 | XMS_ITS | Encounter Summary ---
Author Organization [facility] Address [address] [place] [address] Care Team Providers Care Development Technologist Name Role Phone Eric Hernandez MD Primary Care Provider [phone] Blossom Cody CONCRETE BUCKET LOADER Unavailable [phone] Encounter Details Date Type Department Care Team ([facility] st Contact Info) Description 04/28/2023 Clinisync Result Encounter [facility] External Department Unsolicited [...] often do you attend chur ch or restorationism services? More than 4 times per year 03/23/2023 Do you belong to any clubs o r organizations such as mormonism groups, unions, fraternal or athletic groups, or [...] 10:00 AM EDT Office Visit [facility] [address] [place] [address] Maria Fernanda Olguin NP [address] [place] [address] documented as of this encounter Procedures Procedure Name Priority Date/Time Associated Diagnosis Comments XR FOOT LT MIN 3V 04/28/2023 2:2 6 PM EST documented in this encounter Results * XR FOOT LT MIN 3V (04/28/2023 2:26 PM EST) Anatomical Region Laterality Modality Other 04/28/2023 2:26 PM EST Narrative 04/28/2023 2:29 [place] [address] XRay Report Signed Patient: TREV MCKEON MR#: [id number] : 1980 Acct:[id number] Age/Sex: 42 / M ADM Date: 04/28/23 Loc: Attending Dr: Jesus Feldman D.P.M. Ordering Physician: Jesus Feldman D.P.M. Date of Service: 04/28/23 Procedure(s): XR foot LT min 3V Accession Number(s): [id number] cc: Jesus Feldman D.P.M.; ERIC HERNANDEZ [address] [address] Patient Name: TREV MCKEON MRN: [id number] date: 1980 Sex: M Assigned Patient Location: Current Patient Location: Accession/Order Number: [id number] Exam Date: 04/28/2023 10:10 Report Date: 04/28/2023 14:26 At the request of: JESUS FELDMAN Procedure: XR foot LT min 3V PROCEDURE: XR foot LT min 3V DATE: 04/28/2023 9:10 AM GLASS BLOWING INSTRUCTOR COMPARISONS: 02/19/2023 CLINICAL INDICATION: LEFT FOOT BLISTER FINDINGS: There is no evidence of fractures or other acute osseous abnormalities. Surgical fixation hardware is noted of the first metatarsal phalangeal joint, stable. There is widening of the first interphalangeal joint. There is some valgus deformity at this joint space. This is stable in appearance. There is some soft tissue swelling about this first toe. There is slight deformity of the proximal and the lateral aspect of this first proximal phalanx but this was also seen on previous exam. It could represent old or subacute fracture. There is some soft tissue swelling tip of the fourth toe. There is no evidence of erosive osseous lesion or destructive osseous process on these images. There is some deformity of the tip of the second toe stable from previous exam. It appears to represent distal interphalangeal degenerative changes. There is pes planus deformity. There is spurring of the posterior inferior os calcis and of the posterior os calcis, stable. XR/XR foot LT min 3V IMPRESSION: Findings as discussed above. There is no evidence of erosive osseous lesion or destructive osseous process to suggest osteomyelitis on these images. Electronically authenticated by: QASIM SOSA Date: 04/28/2023 14:26 Dictated By: Qasim Sosa M.D. Signed By: 04/28/23 1429 DD/ 1426 TD/TT: Neuropsychology Service Director: Procedure Note Radiology, Radiologist, MD - 07/14/2023 [place] [address] XRay Report Signed Patient: TREV MCKEON BMR#: [id number] : 1980Acct:[id number] Age/Sex: 42 / MADM Date: 04/28/23 Loc: WC Attending Dr: Jesus Feldman D.P.M. Ordering Physician: Jesus Feldman D.P.M. Date of Service: 04/28/23 Procedure(s): XR foot LT min 3V Accession Number(s): [id number] cc: Jesus Feldman D.P.M.; ERIC HERNANDEZ [place] [id number] Patient Name: TREV MCKEON MRN: [id number] date: 1980 Sex: M Assigned Patient Location: Current Patient Location: Accession/Order Number: [id number] Exam Date: 04/28/2023 10:10 Report Date: 04/28/2023 14:26 At the request of: JESUS FELDMAN Procedure: XR foot LT min 3V PROCEDURE: XR foot LT min 3V DATE: 04/28/2023 9:10 AM GLASS BLOWING INSTRUCTOR COMPARISONS: 02/19/2023 CLINICAL INDICATION: LEFT FOOT BLISTER FINDINGS: There is no evidence of fractures or other acute osseous abnormalities. Surgical fixation hardware is noted of the first metatarsal phalangealjoint, stable. There is widening of the first interphalangeal joint. There is some valgus deformity at this joint space. This is stable in appearance. There is some soft tissue swelling about this first toe. There is slight deformity of the proximal and the lateral aspect of this first proximal phalanx but this was alsoseen on previous exam. It could represent old or subacute fracture. There is some soft tissue swelling tip of the fourth toe. There is no evidence of erosive osseous lesion or destructive osseousprocess on these images. There is some deformity of the tip of the second toe stable from previous exam. It appears to represent distal interphalangeal degenerative changes. There is pes planus deformity. There is spurring of the posterior inferioros calcis and of the posterior os calcis, stable. XR/XR foot LT min 3V IMPRESSION: Findings as discussed above. There is no evidence of erosive osseous lesion or destructive osseousprocess to suggest osteomyelitis on these images. Electronically authenticated by: QASIM SOSA Date: 04/28/2023 14:26 Dictated By: Qasim Sosa M.D. Signed By:04/28/23 1429 DD/ 1426 TD/TT: Neuropsychology Service Director: us Generic External Data Provider [facility] Final Result documented in this encounter Visit Diagnoses Not on filedocumented in this encounter Care Teams Development Technologist Relationship Specialty Start Date End Date Shelby, Eric Lozada MD [address] [place], [place] [id number] PCP - General Family Medicine 09/15/22 Blossom Cody NP [address] [place] [address] Nurse Practitioner Family Medicine 01/19/24 documented as of this encounter
--- OUTSIDE RECORDS SUMMARY | 2024-10-04 11:46 | XMS_ITS | Encounter Summary ---
Author Organization [facility] Address [address] [place] [address] Care Team Providers Care Property Field Adjuster Name Role Phone Natalie Ryan MD Primary Care Provider [phone] Blossom Cody WAREHOUSE DISTRIBUTION ASSOCIATE Unavailable [phone] Encounter Details Date Type Department Care Team ([facility] Contact Info) Description 06/15/2024 Abstract [facility] [address] [place] [address] Natalie Ryan MD [address] [place] [address] Social History Tobacco Use Types Packs/Day Years [...] often do you attend chur ch or rastafari services? More than 4 times per year [...] place to sleep or slept in a nursing home (including now)? Patient refused 03/23/2023 Sex [...] EDT Office Visit [facility] [address] [place] [address] Maria Fernanda Olguin NP [address] [place] [address] documented as of this encounter Visit Diagnoses Not on filedocumented in this encounter Care Teams Property Field Adjuster Relationship Specialty Start Date End Date Natalie Ryan MD [address] [place] [address] PCP - General Family Medicine 09/15/22 Blossom Cody NP [address] [place] [address] Nurse Practitioner Family Medicine 01/19/24 documented as of this encounter
--- OUTSIDE RECORDS SUMMARY | 2024-10-04 11:46 | XMS_ITS | Encounter Summary ---
Author Organization [facility] Address [address] [place] [address] Care Team Providers Care Excavation Laborer Name Role Phone Natalie Ryan MD Primary Care Provider [phone] Blossom Cody DATA CENTER OPERATOR Unavailable [phone] Encounter Details Date Type Department Care Team ([facility] Contact Info) Description 08/21/2024 Orders Only [facility] [address] [place] [address] Link Ortega, DATA CENTER OPERATOR [address] [facility] [place] [address] Social History Tobacco Use Types [...] often do you attend chur ch or voodoo services? More than 4 times per year 03/23/2023 Do you belong to any clubs o r organizations such as confucianist groups, unions, fraternal or athletic groups, or [...] place to sleep or slept in a chcf (including now)? Patient refused 03/23/2023 Sex and [...] [facility] [address] [facility] [place] [address] Maria Fernanda Olguin NP [address] [facility] [place], [place] [address] documented as of this encounter Procedures Procedure Name Priority Date/Time Associated Diagnosis Comments HEMOGLOBIN A1C Routine 08/21/2024 10:48 AM EDT documented in this encounter Results * Hemoglobin A1c (08/21/2024 10:48 AM EDT) HEMOGLOBIN A1C 7.9 Blood Venous blood specimen / Unknown Link Ortega DATA CENTER OPERATOR LAB BLOOD ORDERABLES Edited Resu lt - Final documented in this encounter Visit Diagnoses Not on filedocumented in this encounter Care Teams Excavation Laborer Relationship Specialty Start Date End Date Natalie Ryan MD [address] [facility] [place] [address] PCP - General Family Medicine 09/15/22 Blossom Cody NP [address] [facility] [place], [place] [phone] Nurse Practitioner Family Medicine 01/19/24 documented as of this encounter
--- OUTSIDE RECORDS SUMMARY | 2024-10-04 11:46 | XMS_ITS | Encounter Summary ---
Author Organization [facility] Address [address] [place] [address] Care Team Providers Care Fermenter Name Role Phone Natalie Ryan MD Primary Care Provider [phone] Blossom Cody MOTORCYCLE SALES ASSOCIATE Unavailable [phone] Encounter Details Date Type Department Care Team ([facility] Contact Info) Description 03/19/2023 Orders Only [facility] [address] [place] [address] Link Ortega, MOTORCYCLE SALES ASSOCIATE [address] [facility] [place] [address] Social History Tobacco Use Types [...] often do you attend chur ch or mu-ism services? More than 4 times per year 03/23/2023 Do you belong to any clubs o r organizations such as caodaism groups, unions, fraternal or athletic groups, or [...] EDT Office Visit [facility] [address] [facility] [place] [address] Maria Fernanda Olguin NP [address] [facility] [place], [place] [id number] documented as of this encounter Procedures Procedure Name Priority Date/Time Associated Diagnosis Comments HEMOGLOBIN A1C Routine 01/04/2023 11:39 AM EDT documented in this encounter Results * Hemoglobin A1c (01/04/2023 11:39 AM EDT) HEMOGLOBIN A1C 8.9 Blood Venous blood specimen / Unknown Link Ortega MOTORCYCLE SALES ASSOCIATE LAB BLOOD ORDERABLES Edited Resu lt - Final documented in this encounter Visit Diagnoses Not on filedocumented in this encounter Care Teams Fermenter Relationship Specialty Start Date End Date Natalie Ryan MD [address] [facility] [place] [address] PCP - General Family Medicine 09/15/22 Blossom Cody NP [address] [facility] [place], [place] [phone] Nurse Practitioner Family Medicine 01/19/24 documented as of this encounter
--- OUTSIDE RECORDS SUMMARY | 2024-10-04 11:46 | XMS_ITS | Encounter Summary ---
Author Organization [facility] Address [address] [facility] [place] [address] Care Team Providers Care Personal Chef Name Role Phone Natalie Ryan MD Primary Care Provider [phone] Blossom Cody GENERAL INSPECTOR Unavailable [phone] Encounter Details Date Type Department Care Team ([facility] Contact Info) Description 09/22/2022 Abstract [facility] [address] [place] [address] Natalie Ryan MD [address] [place], [place] [id number] Social History Tobacco Use Types Packs/Day Years Used Date Smoking Tobacco: Never Assessed Sex and Gender Information Value Date Recorded Sex Assigned at Not on file Legal Sex Male 6:33 PM EDT Gender Identity Not on file Sexual Orientation Not on file documented as of this encounter Plan of Treatment Upcoming Encounters Date Type Department Care Team ([facility] Contact Info) Description 10/19/2024 10:00 AM EDT Office Visit [facility] [address] [place] [address] Maria Fernanda Olguin NP [address] [place], [place] [address] documented as of this encounter Visit Diagnoses Not on filedocumented in this encounter Care Teams Personal Chef Relationship Specialty Start Date End Date Natalie Ryan MD [address] [place], [place] [id number] PCP - General Family Medicine 09/15/22 Blossom Cody NP [address] [place] [address] Nurse Practitioner Family Medicine 01/19/24 documented as of this encounter
--- OUTSIDE RECORDS SUMMARY | 2024-10-04 11:46 | XMS_ITS | Encounter Summary ---
Author Organization [facility] Address [address] [place] [address] Care Team Providers Care Loan Funder Name Role Phone Natalie Ryan MD Primary Care Provider [phone] Blossom Cody SHREDDER PICKER Unavailable [phone] Encounter Details Date Type Department Care Team ([facility] Contact Info) Description 01/27/2024 Orders Only [facility] [address] [place] [address] Link Ortega, SHREDDER PICKER [address] [facility] [place] [address] Social History Tobacco Use Types [...] often do you attend chur ch or jain services? More than 4 times per year 03/23/2023 Do you belong to any clubs o r organizations such as holiness groups, unions, fraternal or athletic groups, or [...] place to sleep or slept in a fpc (including now)? Patient refused 03/23/2023 Sex and [...] [facility] [place] [id number] Maria Fernanda Olguin NP [address] [facility] [place], [place] [id number] documented as of this encounter Procedures Procedure Name Priority Date/Time Associated Diagnosis Comments HEMOGLOBIN A1C Routine 01/26/2024 10:41 AM EDT documented in this encounter Results * Hemoglobin A1c (01/26/2024 10:41 AM EDT) HEMOGLOBIN A1C 7.4 Blood Venous blood specimen / Unknown Link Ortega SHREDDER PICKER LAB BLOOD ORDERABLES Edited Resu lt - Final documented in this encounter Visit Diagnoses Not on filedocumented in this encounter Care Teams Loan Funder Relationship Specialty Start Date End Date Natalie Ryan MD [address] [facility] [place] [address] PCP - General Family Medicine 09/15/22 Blossom Cody NP [address] [facility] [place], [place] [id number] Nurse Practitioner Family Medicine 01/19/24 documented as of this encounter
== END 2024-10-04 11:44 | disposition home or self-care (01) ==
LOC: WC 11:43
PROVIDERS: PCP Family Medicine; Visit Provider Physician Assistant
DX: L84 Corns and callosities (principal); E11.65 Type 2 diabetes mellitus with hyperglycemia
CPT/HCPCS: G0463

== ENCOUNTER 2024-10-25 12:44 | Outpatient (OUT) | payer OTHER, SELFPAY ==
--- OUTSIDE RECORDS SUMMARY | 2023-05-17 04:30 | XMS_ITS ---
Author Organization [facility] [place] Address [address] [place] [address] Care Team Providers Care Sales Representative Publications Name Role Phone Natalie Ryan Primary Care Provider Jesus Dai [phone] REASON FOR VISIT wound - 4th digit amputation Problems Problem Type SNOMED Code ICD Code Onset Dates Problem Status W/U Status Risk Notes Problem Polyneuropathy due to type 2 diabetes mellitus (823654082) Diabetes mellitus with polyneuropathy (E11.42) Active confirmed Problem Acute osteomyelitis of ankle and/or foot (445818969) Acute hematogenous osteomyelitis of left foot (M86.072) Active confirmed Encounters Encounter Location Date Provider Diagnosis [facility] [address] [place] [phone] 05/17/2023 Jesus Feldman Plan Of Treatment No Information Progress Notes * MIKE, Trev BDOB: 0 (44 yo M)Acc No.[id number]:05/17/2023 UNLOCKED PROGRESS NOTE Patient: Trev REDDY Provider: Boris Feldman DPM, MS :1980 A ge:42 Y S ex:Male Date:05/17/2023 Address:[address] [place] [phone] Pcp:Natalie Ryan Check Out:01:02 PM EST * * Electronic signature of Rolando Feldman DPM on 10/25/2024 at 12:46 PM EDT Sign off status: Pending Visit Status: C HK (Check Out) * Provider: Boris Feldman DPM, MS Date: 0 05/17/2023 Generated for Benito ceja/Yoshi/Amor on: 0 10/25/2024 12:46 PM EDT
--- OUTSIDE RECORDS SUMMARY | 2024-04-26 04:00 | XMS_ITS ---
Author Organization [facility] in [place] Address [address] [place] [address] Care Team Providers Care Industrial Mechanic Name Role Phone Natalie Ryan Primary Care Provider Jesus Dai [phone] REASON FOR VISIT wound - RT foot I&D Encounters Encounter Location Date Provider Diagnosis THE [address] [address] 04/26/2024 Jesus Feldman Plan Of Treatment No Information Progress Notes * MIKE Trev BDOB: 0 (44 yo M)Acc No.[id number]:04/26/2024 UNLOCKED PROGRESS NOTE Patient: Trev REDDY Provider: Boris Feldman DPM, MS :1980 A ge:43 Y S ex:Male Date:04/26/2024 Address:[address] [place], [place] [id number] Pcp:Natalie Ryan Check Out:01:07 PM EST * * Electronic signature of Rolando Feldman DPM on 10/25/2024 at 12:47 PM EDT Sign off status: Pending Visit Status: Isiah HK (Check Out) * Provider: Boris Feldman DPM, MS Date: 1 06/27/2023 Generated for Printi ng/Faxing/eTransmitting on: 0 10/25/2024 12:47 PM EDT
--- OUTSIDE RECORDS SUMMARY | 2024-04-28 04:30 | XMS_ITS ---
Author Organization [facility] in [place] Address [address] [place] [address] Care Team Providers Care Bulk Truck Driver Name Role Phone Natalie Ryan Primary Care Provider Jesus Dai [phone] REASON FOR VISIT wound - I&D Encounters Encounter Location Date Provider Diagnosis [facility] [address] [place] [address] 04/28/2024 Jesus Feldman Plan Of Treatment No Information Progress Notes * MIKE Trev BDOB: 0 (44 yo M)Acc No.[id number]:04/28/2024 UNLOCKED PROGRESS NOTE Patient: Trev REDDY Provider: Boris Feldman DPM, MS :1980 A ge:43 Y S ex:Male Date:04/28/2024 Address:[address] [place], [place] [id number] Pcp:Natalie Ryan Check Out:01:10 PM EST * * Electronic signature of Rolando Feldman DPM on 10/25/2024 at 12:47 PM EDT Sign off status: Pending Visit Status: Isiah HK (Check Out) * Provider: Boris Feldman DPM, MS Date: 1 06/29/2023 Generated for Wellington[place] ng/Faleonciog/eTransmitting on: 0 10/25/2024 12:47 PM EDT
--- OUTSIDE RECORDS SUMMARY | 2024-10-19 10:00 | XMS_ITS | Encounter Summary ---
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 More than 4 times per year [...] place to sleep or slept in a senior living (including now)? Patient refused 03/23/2023 Sex and Gender Information Value Date Recorded Sex Assigned at Not on file Legal Sex Male 6:33 PM EDT Gender Identity Not on file Sexual Orientation Not on file documented as of this encounter Last Filed Vital Signs Vital Sign Reading Time Taken Comments Blood Pressure 130/86 10/19/2024 9:51 AM EDT Pulse 76 10/19/2024 9:51 AM EDT Temperature - - Respiratory Rate - - Oxygen Saturation - - Inhaled Oxygen Concentration - - Weight 168 kg (371 lb 6.4 oz) 10/19/2024 9:51 AM EDT Height - - Body Mass Index 51.08 10/29/2023 9:37 AM EDT documented in this encounter Progress Notes * Maria Fernanda Olguin NP - 10/19/2024 10:00 AM EDT Images from the original note were not included. Trev Ontiveros is a 44 y.o. male presents with chief complaint of Follow-up (3 month DM) HPI: HPI History of Present Illness The patient is a 44-year-old male who presents to the office for follow-up today. He is under the care of an lead consultant for his diabetes, with a scheduled appointment next month. His last visit was in 08/2024, during which his A1c level was recorded at 7.9. Despite undergoingthree surgeries in 04/2024 and 05/2024, there were no alterations made to his medication regimen. He adheres to a sliding scale insulin regimen, supplemented with Victoza 1.8 mg, metformin, and Lantus 44 units twice daily. He monitors his blood glucose levels, which typically range from 120 to 160,without any instances of hypoglycemia. In the event of a low reading, he rechecks his levels, whichusually register in the 90s. He performs fingerstick glucose monitoring twice daily and has not reported any hyperglycemic episodes exceeding 400 or 500. He had labs in 04/2024 and will have labs done at his next visit. He experienced a significant bruise on the side of his foot in 04/2024 or 05/2024, which subsequently became infected. The cause of the bruise remains unknown to him. The infection necessitated surgical intervention and subsequent rehabilitation at [place] due to his inability to bear weight on the foot. During his two-month stay at [place], he contracted MRSA. He underwent physical therapy at the facility and is currently not engaged in any therapeutic activities. His foot has healed completely, with no open wounds present. He has a scheduled appointment with Dr. Feldman next week and reports no pain. He also consults with Dr. Moore for insole-related issues. He does not consult with any other specialists, including cardiologists or pulmonologists. He reports no recent illnesses, cough, fever, chest pain, or dizziness. He maintains regular annual check-ups with an materials tech and dentist. He reports no gastrointestinal symptoms such as abdominal pain, nausea, vomiting, or diarrhea. His sleep pattern is normal, and his mood is generally stable. He has resumed work and expresses no concerns. SUBJECTIVE: MEDICATIONS: Current Outpatient Medications Medication Instructions aspirin 81 MG EC tablet 1 tablet, Daily atorvastatin (LIPITOR) 40 mg, Oral, Daily insulin glargine (LANTUS) 44 Units, 2 times daily insulin lispro (HUMALOG) 1 Units, 3 times daily with meals lisinopril 30 mg, Oral, Daily metFORMIN (Glucophage) 500 MG tablet 2 tablets, 2 times daily with meals traZODone (DESYREL) 100 mg, Oral, Nightly PRN Victoza 1.8 mg, Daily ALLERGIES: No Known Allergies History: Past Medical History: Diagnosis Date BMI 40.0-44.9[place] 45.0-49.9, [place] Constipation COVID-19 DM (diabetes mellitus) ([facility]) Dyslipidemia History of being hospitalized 03/2018 Uncontrolled diabetes, infection History of COVID-19 05/13/2020 Non-pressure chronic ulcer of other part of unspecified foot with unspecified severity (HCC) 10/02/2022 Osteomyelitis of great toe of right foot (HCC) 10/02/2022 Osteomyelitis of right foot (HCC) 10/02/2022 Pressure ulcer of other site, stage 2 ([facility]) 10/02/2022 Ulcer of foot due to type 2 diabetes mellitus (HCC) 10/02/2022 Ulcerated, foot, left, limited to breakdown of skin ([facility]) 10/02/2022 Past Surgical History: Procedure Laterality Date AMPUTATION FOOT / TOE Right 03/2018 2nd toe AMPUTATION FOOT / TOE Right 01/10/2021 [facility] - Dr. Moore AMPUTATION FOOT / TOE Left 05/17/2023 4th toe - Dr. Feldman CHEILECTOMY Left 02/14/2020 [facility] CHEILECTOMY Left 09/15/2018 1st Metatarsal FOOT AMPUTATION Right 09/2021 midfoot INCISION AND DRAINAGE FOOT Right 04/26/2024 Dr Feldman INCISION AND DRAINAGE FOOT Right 05/30/2024 Dr. Feldman SKIN GRAFT Right 10/14/2021 Application of allogenic skin substitute foot. Neg pressure wound therapy TOE SURGERY Left 10/2022 great toe, Dr Feldman Family History Problem Relation Name Age of Onset Hypertension Mother Diabetes Mother Melanoma Mother history of Cancer Father Hypertension Father Social History Socioeconomic History Marital status: Unmarried Spouse name: Not on file Number of children: Not on file Years of education: Not on file Highest education level: Not on file Occupational History Not on file Tobacco Use Smoking status: Never Smokeless tobacco: Never Vaping Use Vaping status: Never Used Substance and Sexual Activity Alcohol use: Yes Alcohol/week: 4.0 standard drinks of alcohol Types: 4 Standard drinks or equivalent per week Drug use: Never Sexual activity: Not on file Other Topics Concern Not on file Social History Narrative Not on file Social Drivers of Health Financial Resource Strain: Patient Declined (03/23/2023) Overall Financial Resource Strain (CARDIA) Difficulty of Paying Living Expenses: Patient declined Food Insecurity: Patient Declined (03/23/2023) Hunger Vital Sign Worried About Running Out of Food in the Last Year: Patient declined Ran Out of Food in the Last Year: Patient declined Transportation Needs: Patient Declined (03/23/2023) PRAPARE - Transportation Lack of Transportation (Medical): Patient declined Lack of Transportation (Non-Medical): Patient declined Physical Activity: Not on file Stress: Not on file Social Connections: Unknown (03/23/2023) Social Connection and Isolation Panel [NHANES] Frequency of Communication with Friends and Family: Twice a week Frequency of Social Gatherings with Friends and Family: Twice a week Attends Druze Services: More than 4 times per year Active Member of Clubs or Organizations: Patient declined Attends Club or Organization Meetings: Patient declined Marital Status: Patient declined Intimate Partner Violence: Patient Declined (03/23/2023) Humiliation, Afraid, Rape, and Kick questionnaire Fear of Current or Ex-Partner: Patient declined Emotionally Abused: Patient declined Physically Abused: Patient declined Sexually Abused: Patient declined Housing Stability: Unknown (03/23/2023) Housing Stability Vital Sign Unable to Pay for Housing in the Last Year: Patient refused Number of Places Lived in the Last Year: Not on file Unstable Housing in the Last Year: Patient refused I have reviewed and reconciled the history and medication list with the patient today. REVIEW OF SYMPTOMS: Review of Systems Constitutional: Negative for appetite change, chills, fatigue and fever. HENT: Negative. Respiratory: Negative for cough, shortness of breath and wheezing. Cardiovascular: Negative for chest pain and palpitations. Gastrointestinal: Negative for abdominal pain, constipation, diarrhea, nausea and vomiting. Musculoskeletal: Negative. Skin: Negative for color change, rash and wound. Psychiatric/Behavioral: Negative. OBJECTIVE: Results Labs - A1c: 08/2024, 7.9% 10/12/2023 9:45 AM 10/29/2023 9:37 AM 01/19/2024 11:00 AM 04/19/2024 9:47 AM 07/19/2024 9:22 AM 07/19/2024 9:57 AM 10/19/2024 9:51 AM Vitals BMI 52.4 kg/m2 52.4 kg/m2 51.82 kg/m2 52.21 kg/m2 50.03 kg/m2 51.08 kg/m2 BSA (m2) 2.95 m2 2.95 m2 2.94 m2 2.95 m2 2.89 m2 2.91 m2 Systolic 136 128 140 138 130 Diastolic 78 72 84 80 86 Heart Rate 84 84 80 76 Height (in) 5' 11.5 5' 11.5 Weight (lb) 381 381 376.8 379.6 363.8 371.4 Visit Report Report Report Report Report Report Report Report Physical Exam Constitutional: General: He is not in acute distress. Appearance: Normal appearance. He is obese. He is not ill-appearing. Cardiovascular: Rate and Rhythm: Normal rate and regular rhythm. Heart sounds: No murmur heard. Pulmonary: Effort: No respiratory distress. Breath sounds: Normal breath sounds. No wheezing or rhonchi. Abdominal: General: Bowel sounds are normal. There is no distension. Palpations: Abdomen is soft. Tenderness: There is no abdominal tenderness. Musculoskeletal: Right lower leg: No edema. Left lower leg: No edema. Skin: General: Skin is warm and dry. Findings: No erythema or rash. Neurological: Mental Status: He is alert. Psychiatric: Mood and Affect: Mood normal. Behavior: Behavior normal. Thought Content: Thought content normal. Judgment: Judgment normal. 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 Type 2 diabetes mellitus. He is currently under the care of an lead consultant, with his most recent A1c level recorded at 7.9. A follow-up appointment is scheduled for 11/2024. At this juncture, no modifications to his treatment plan are necessary. The significance of lifestyle alterations and dietary modifications, specifically the reduction of carbohydrates, processed foods, and sugars, was emphasized. 2. Essential hypertension. His blood pressure is well-regulated today, registering at 130/86. He is currently on a daily dose of lisinopril 30 mg. 3. Traumatic amputation of the right foot toe. He has a scheduled appointment with Dr. Feldman next week. He reports no issues and confirms that previous wounds have healed. 4. Traumatic amputation of the left foot toe. As previously mentioned, he is under the care of Dr. Feldman. He reports no open areas on his feet, no issues, and no concerns. 5. Morbid obesity. The importance of dietary changes was stressed, particularly in light of a slight weight increase. A strong recommendation was made to reduce the intake of carbohydrates, processed foods, and sugars,and to incorporate exercise into his routine. 6. Hypertriglyceridemia. He is currently on a daily dose of Lipitor 40 mg. Laboratory results from 04/2024 were reviewed. 7. Health maintenance. Colon cancer screening was discussed given his age of 44 years. The options of Cologuard and colonoscopy were presented, along with their respective advantages and disadvantages. He will consider these options and inform us of his decision, or we will revisit the discussion during his wellness visit. Follow-up The patient will follow up in 3 months. Follow up in about 3 months (around 01/19/2025) for DM. 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
--- OUTSIDE RECORDS SUMMARY | 2024-10-25 12:47 | XMS_ITS | Clinical Summary ---
Author Organization [facility] Address [id number] [address] [place] [address] Care Team Providers Care Acute Care Occupational Therapist Name Role Phone Natalie Ryan MD Primary Care Provider [phone] Allergies No known active allergies Medications insulin [...] each 8 Active lancets (ACCU-CHEK MULTICLIX LANCET) [facility] [place] check 100 each 8 Active [...] DIRECTED 11 8 Active ONETOUCH VERIO SYSTEM [facility] See Admin Instructions. 0 8 Active insulin [...] 5:45 AM 03/30/2018 7:23 PM Care Teams Acute Care Occupational Therapist Relationship Specialty Start Date End Date Natalie Ryan MD [address] [place] [address] PCP - General Family Medicine 03/26/18
--- OUTSIDE RECORDS SUMMARY | 2024-10-25 12:47 | XMS_ITS | Encounter Summary ---
Author Organization [facility] Address [address] [place] [address] Care Team Providers Care Stunt Performer Name Role Phone Natalie Ryan MD Primary Care Provider [phone] Blossom Cody NUCLEAR FUEL ENRICHMENT TECHNICIAN Unavailable [phone] Encounter Details Date Type Department Care Team ([facility] Contact Info) Description 06/09/2023 Orders Only [facility] [address] [place] [address] Link Ortega NUCLEAR FUEL ENRICHMENT TECHNICIAN [address] [place] [address] Social History Tobacco Use Types [...] often do you attend chur ch or confucianism services? More than 4 times per year 03/23/2023 Do you belong to any clubs o r organizations such as amish groups, unions, fraternal or athletic groups, or [...] place to sleep or slept in a jail (including now)? Patient refused 03/23/2023 Sex and Gender Information Value Date Recorded Sex Assigned at Not on file Legal Sex Male 6:33 PM EDT Gender Identity Not on file Sexual Orientation Not on file documented as of this encounter Plan of Treatment Upcoming Encounters Date Type Department Care Team (Late st Contact Info) Description 01/31/2025 9:30 AM EDT Office Visit [facility] [address] [place] [phone] Maria Fernanda Olguin NP [address] [place], [place] [id number] documented as of this encounter Procedures Procedure Name Priority Date/Time Associated Diagnosis Comments HEMOGLOBIN A1C Routine 06/09/2023 11:14 AM EST documented in this encounter Results * Hemoglobin A1c (06/09/2023 11:14 AM EST) HEMOGLOBIN A1C 8.2 Blood Venous blood specimen / Unknown Link Ortega NP LAB BLOOD ORDERABLES Edited Resu lt - Final documented in this encounter Visit Diagnoses Not on filedocumented in this encounter Care Teams Stunt Performer Relationship Specialty Start Date End Date Natalie Ryan MD PCP - General Family Medicine 09/15/22 Blossom Cody NP Nurse Practitioner Family Medicine 01/19/24 documented as of this encounter
--- OUTSIDE RECORDS SUMMARY | 2024-10-25 12:47 | XMS_ITS | Encounter Summary ---
Author Organization [facility] Address [address] [place] [address] Care Team Providers Care Practice Lead Name Role Phone Natalie Hernandez MD Primary Care Provider [phone] Blossom Cody FREIGHT UNLOADER Unavailable [phone] Encounter Details Date Type Department Care Team ([facility] st Contact Info) Description 04/26/2024 Clinisync Result [...] often do you attend chur ch or latter day services? More than 4 times per year 03/23/2023 Do you belong to any clubs o r organizations such as presybeterian groups, unions, fraternal or athletic groups, or [...] place to sleep or slept in a intermediate (including now)? Patient refused 03/23/2023 Sex and Gender Information Value Date Recorded Sex Assigned at Not on file Legal Sex Male 6:33 PM EDT Gender Identity Not on file Sexual Orientation Not on file documented as of this encounter Plan of Treatment Upcoming Encounters Date Type Department Care Team (Late st Contact Info) Description 01/31/2025 9:30 AM EDT Office Visit [facility] [address] [place] [address] Maria Fernanda Olguin, JENNYFER [address] [place] [address] documented as of this encounter Procedures Procedure [...] been received and testing has been initiated. [facility] ANAEROBIC CULT, EXTENDED INCUB Organism: Prevotella disiens : [facility] ANAEROBIC CULT, EXTENDED INCUB *ABNORMAL* TB ANAEROBIC CULT, EXTENDED INCUB Scant growth [facility] ANAEROBIC CULT, EXTENDED INCUB Studies at [employer] have confirmed the [facility] ANAEROBIC CULT, EXTENDED INCUB observations of others who have demonstrated that [facility] ANAEROBIC CULT, EXTENDED INCUB Prevotella, Porphyromonas and Bacteroides species [facility] ANAEROBIC CULT, EXTENDED INCUB other than Bacteroides fragilis group are routinely [facility] ANAEROBIC CULT, EXTENDED INCUB susceptible to Cefoxitin, Chloramphenicol, and [facility] ANAEROBIC CULT, EXTENDED INCUB Metronidazole and are usually resistant to Penicillin. [facility] ANAEROBIC CULT, EXTENDED INCUB Prevotella disiens [facility] ANAEROBIC CULT, EXTENDED INCUB O:PREDIS Isolated [facility] 04/26/2024 10:0 7 AM EST 04/26/2024 12:13 PM EST Narrative [facility] - 05/11/2024 4:08 PM EST us Generic External Data Provider LAB BLOOD ORDERAB LES Final Result [facility] * ANAEROBIC CULTURE (04/26/2024 10:07 AM EST) ANAEROBIC CULTURE Anaerobic Culture [facility] ANAEROBIC CULTURE Holding for possible anaerobes. TB ANAEROBIC CULTURE Organism: Prevotella disiens : [facility] ANAEROBIC CULTURE *ABNORMAL* TB ANAEROBIC CULTURE Light growth TB ANAEROBIC CULTURE Studies at [facility] have confirmed the [facility] ANAEROBIC CULTURE observations of others who have demonstrated that [facility] ANAEROBIC CULTURE Prevotella, Porphyromonas and Bacteroides [...] ORDERAB LES Final Result Performing Organization Address City/[facility]/ZIP Co de Phone Number [facility] * FUNGUS (MYCOLOGY) CULTURE (04/26/2024 10:07 AM EST) FUNGUS (MYCOLOGY) CULTURE Fungus (Mycology) Culture WILL FOLLOW [facility] FUNGUS (MYCOLOGY) CULTURE No yeast or mold isolated after 4 weeks. [facility] FUNGUS (MYCOLOGY) CULTURE Performed at: [facility] FUNGUS (MYCOLOGY) CULTURE [address] [place], [place] [id number] [facility] FUNGUS (MYCOLOGY) CULTURE [employer] Supervisor: Lalo Everett PhD, Phone: [phone] [facility] 04/26/2024 10:0 7 AM EST 04/26/2024 12:13 PM EST Narrative CLIN[facility] - 05/25/2024 12:08 PM EST Comment right foot ulcer Generic External Data Provider LAB BLOOD ORDERAB LES Final Result [facility] * FUNGUS STAIN (04/26/2024 10:07 AM EST) FUNGUS STAIN Fungus Stain [facility] FUNGUS STAIN SHAQ/Calcofl uor preparation : no fungus observed. [facility] 04/26/2024 10:0 7 AM EST 04/26/2024 12:13 PM EST Narrative [facility] - 05/25/2024 12:08 PM EST Comment right foot ulcer Generic External Data Provider LAB BLOOD ORDERAB LES Final Result Performing Organization Address [facility] Co de Phone Number ADELA [facility] * FUNGUS (MYCOLOGY) CULTURE (04/26/2024 10:07 AM EST) FUNGUS (MYCOLOGY) CULTURE Fungus (Mycology) Culture WILL FOLLOW [facility] FUNGUS (MYCOLOGY) CULTURE No yeast or mold isolated after 4 weeks. [facility] FUNGUS (MYCOLOGY) CULTURE Performed at: [facility] FUNGUS (MYCOLOGY) CULTURE [address] [place], [place] [id number] [facility] FUNGUS (MYCOLOGY) CULTURE [employer] Supervisor: aLlo Everett PhD, Phone: [phone] [facility] 04/26/2024 10:0 7 AM EST 04/26/2024 12:13 PM EST Narrative CLIN[facility]YNC - 05/25/2024 12:08 PM EST Comment right foot fascia for culture Generic External Data Provider LAB BLOOD ORDERAB LES Final Result Performing Organization Address [facility] Phone Number [facility] * FUNGUS STAIN (04/26/2024 10:07 AM EST) FUNGUS STAIN Fungus Stain TB FUNGUS STAIN SHAQ/Calcofl uor preparation : no fungus observed. [facility] 04/26/2024 10:0 7 AM EST 04/26/2024 12:13 PM EST Narrative CLIN[facility] - 05/25/2024 12:08 PM EST Comment right foot fascia for culture [facility] External Data Provider LAB BLOOD ORDERAB LES Final Result Performing Organization Address [facility] Co de Phone Number [facility] * GRAM STAIN RESULT (04/26/2024 10:07 AM EST) GRAM STAIN RESULT Gram Stain Result TB GRAM STAIN RESULT No white blood cells seen. [facility] GRAM STAIN RESULT TB GRAM STAIN RESULT Rare gram positive cocci [facility] GRAM STAIN RESULT Performed at: [facility] TB GRAM STAIN RESULT [address], [place] [id number] TB GRAM STAIN RESULT [employer] Supervisor: Lalo Everett PhD, Phone: [phone] [facility] 04/26/2024 10:0 7 AM EST 04/26/2024 12:13 PM EST Narrative CLINISYNC - 05/02/2024 3:08 PM EST Generic External Data Provider LAB BLOOD ORDERAB LES Final Result Performing Organization Address [facility] Phone Number [facility] * AEROBIC CULTURE (04/26/2024 10:07 AM EST) AEROBIC CULTURE Aerobic Culture WILL FOLLOW TB AEROBIC CULTURE TB AEROBIC CULTURE Mixed skin maximiliano TB 04/26/2024 10:0 7 AM EST 04/26/2024 12:13 PM EST Narrative CLINISYNC - 05/02/2024 3:08 PM EST Generic External Data Provider LAB BLOOD ORDERAB LES Final Result Performing Organization Address [facility] Phone Number [facility] * ACID FAST CULTURE (04/26/2024 10:07 AM EST) ACID FAST CULTURE Acid Fast Culture Specimen has been received and testing has been initiated. [facility] ACID FAST CULTURE Negative [facility] ACID FAST CULTURE No acid fast bacilli isolated after 6 weeks. TB ACID FAST CULTURE Performed at: [facility] TB ACID FAST CULTURE [address], [place] [id number] TB ACID FAST CULTURE [employer] Supervisor: Lalo Everett PhD, Phone: [phone] [facility] 04/26/2024 10:0 7 AM EST 04/26/2024 12:13 PM EST Narrative CLINISYNC - 06/10/2024 9:09 AM EST Generic External Data Provider LAB BLOOD ORDERAB LES Final Result Performing Organization Address [facility]/State/ZIP Co de Phone Number [facility] * ACID FAST SMEAR (04/26/2024 10:07 AM EST) ACID FAST SMEAR Acid Fast Smear Negative [facility] 04/26/2024 10:0 7 AM EST 04/26/2024 12:13 PM EST Narrative CLINISYNC - 06/10/2024 9:09 AM EST Generic External Data Provider LAB BLOOD ORDERAB LES Final Result Performing Organization Address [facility] Co de Phone Number [facility] * AFB SPECIMEN PROCESSING (04/26/2024 10:07 AM EST) AFB SPECIMEN PROCESSING AFB Specimen Processing [facility] AFB SPECIMEN PROCESSING Tissue Grinding [facility] 04/26/2024 10:0 7 AM EST 04/26/2024 12:13 PM EST Narrative CLINISYNC - 06/10/2024 9:09 AM EST Generic External Data Provider LAB BLOOD ORDERAB LES Final Result Performing Organization Address [facility] de Phone Number [facility] * TISSUE CULTURE (04/26/2024 10:07 AM EST) Pathologist [facility] TISSUE CULTURE Tissue Culture WILL FOLLOW [facility] TISSUE CULTURE [facility] TISSUE CULTURE Specimen has been received and testing has been initiated. [facility] 04/26/2024 10:0 7 AM EST 04/26/2024 12:13 PM EST Narrative CLINISYNC - 05/11/2024 4:08 PM EST Generic External Data Provider LAB BLOOD ORDERAB LES Final Result Performing Organization Address [facility] de Phone Number [facility] * GRAM STAIN RESULT (04/26/2024 10:07 AM EST) GRAM STAIN RESULT Gram Stain Result TB GRAM STAIN RESULT No white blood cells seen. TB GRAM STAIN RESULT TB GRAM STAIN RESULT No organisms seen TB GRAM STAIN RESULT Performed at: [facility] TB GRAM STAIN RESULT [address], [place] [id number] TB GRAM STAIN RESULT [employer] Supervisor: Lalo Everett PhD, Phone: [phone] [facility] 04/26/2024 10:0 7 AM EST 04/26/2024 12:13 PM EST Narrative CLINISYNC - 05/11/2024 4:08 PM EST Generic External Data Provider LAB BLOOD ORDERAB LES Final Result Performing Organization Address [facility] Co de Phone Number [facility] * ACID FAST CULTURE (04/26/2024 10:07 AM EST) ACID FAST CULTURE Acid Fast Culture Specimen has been received and testing has been initiated. [facility] ACID FAST CULTURE Negative [facility] ACID FAST CULTURE No acid fast bacilli isolated after 6 weeks. TB ACID FAST CULTURE [facility] ACID FAST CULTURE [address], [place] [id number] [facility] ACID FAST CULTURE [employer] Supervisor: Lalo Everett PhD, Phone: [phone] [facility] 04/26/2024 10:0 7 AM EST 04/26/2024 12:13 PM EST Narrative CLINISYNC - 06/10/2024 9:09 AM EST Comment right foot fascia for culture Generic External Data Provider LAB BLOOD ORDERAB LES Final Result Performing Organization Address [facility] Co de Phone Number [facility] * ACID FAST SMEAR (04/26/2024 10:07 AM EST) ACID FAST SMEAR Acid Fast Smear Negative TB 04/26/2024 10:0 7 AM EST 04/26/2024 12:13 PM EST Narrative CLINISYNC - 06/10/2024 9:09 AM EST Comment right foot fascia for culture us Generic External Data Provider LAB BLOOD ORDERAB LES Final Result Performing Organization Address [facility]/ZIP Co de Phone Number [facility] * AFB SPECIMEN PROCESSING (04/26/2024 10:07 AM EST) AFB SPECIMEN PROCESSING AFB Specimen Processing [facility] AFB SPECIMEN PROCESSING Tissue Grinding [facility] 04/26/2024 10:0 7 AM EST 04/26/2024 12:13 PM EST Narrative ADELA - 06/10/2024 9:09 AM EST Comment right foot fascia for culture us Generic External Data Provider LAB BLOOD ORDERAB LES Final Result [facility] * XR FOOT RT MIN 3V (04/26/2024 9:03 AM EST) Anatomical Region Laterality Modality Other 04/26/2024 9:03 AM EST Narrative 04/26/2024 9:06 [place] [address] XRay Report Signed Patient: TREV MCKEON MR#: [id number] : 1980 Acct:[id number] Age/Sex: 43 / M ADM Date: 04/25/24 Loc: Attending Dr: Martell Navas Ordering Physician: Martell Navas Date of Service: 04/25/24 Procedure(s): XR foot RT min 3V Accession Number(s): [id number] cc: Martell Navas; NATALIE HERNANDEZ [place] [id number] Patient Name: TREV MCKEON MRN: [facility]:[id number] date: 1980 Sex: M Assigned Patient Location: Current Patient Location: [place] Accession/Order Number: [id number] Exam Date: 04/25/2024 11:58 Report Date: 04/26/2024 [...] M.D. Signed By: 04/26/24905 DD/ 2 TD/TT: Laboratory Geneticist: Procedure Note Radiology, Radiologist, MD - 04/26/2024 [place] [address] XRay Report Signed Patient: TREV MCKEON BMR#: [id number] : 1980Acct:[id number] Age/Sex: 43 / MADM Date: 04/25/24 Loc: Attending Dr: Martell Navas Ordering Physician: Martell Navas Date of Service: 04/25/24 Procedure(s): XR foot RT min 3V Accession Number(s): [id number] cc: Martell Navas; NATALIE HERNANDEZ [place] [id number] Patient Name: TREV MCKEON MRN: [id number] date: 1980 Sex: M Assigned Patient Location: Current Patient Location: [place] Accession/Order Number: [id number] Exam Date: 04/25/2024 11:58 Report Date: 04/26/2024 [...] Nayak M.D. Signed By:04/26/24905 DD/ 2 TD/TT: Laboratory Geneticist: us Generic External Data Provider [facility] IMAGING Final Result documented in this encounter Visit Diagnoses Not on filedocumented in this encounter Care Teams Practice Lead Relationship Specialty Start Date End Date Natalie Hernandez MD PCP - General Family Medicine 09/15/22 Blossom Cody NP Nurse Practitioner Family Medicine 01/19/24 documented as of this encounter
--- OUTSIDE RECORDS SUMMARY | 2024-10-25 12:47 | XMS_ITS | Encounter Summary ---
Author Organization [facility] Address [address] [place] [address] Care Team Providers Care Public Relations Intern Name Role Phone Natalie Ryan MD Primary Care Provider [phone] Blossom Cody LAB SPECIALIST Unavailable [phone] Encounter Details Date Type Department Care Team ([facility] Contact Info) Description 03/19/2023 Orders Only [facility] [address] [place] [address] Link Ortega LAB SPECIALIST [address] [place] [address] Social History Tobacco Use Types [...] often do you attend chur ch or sabianist services? More than 4 times per year 03/23/2023 Do you belong to any clubs o r organizations such as orthodoxy groups, unions, fraternal or athletic groups, or [...] place to sleep or slept in a correction (including now)? Patient refused 03/23/2023 Sex and Gender Information Value Date Recorded Sex Assigned at Not on file Legal Sex Male 6:33 PM EDT Gender Identity Not on file Sexual Orientation Not on file documented as of this encounter Plan of Treatment Upcoming Encounters Date Type Department Care Team (Late st Contact Info) Description 01/31/2025 9:30 AM EDT Office Visit [facility] [address] [place] [address] Maria Fernanda Olguin NP [address] [place], [place] [phone] documented as of this encounter Procedures Procedure [...] on filedocumented in this encounter Care Teams Public Relations Intern Relationship Specialty Start Date End Date Natalie Ryan MD PCP - General Family Medicine 09/15/22 Blossom Cody NP Nurse Practitioner Family Medicine 01/19/24 documented as of this encounter
--- OUTSIDE RECORDS SUMMARY | 2024-10-25 12:47 | XMS_ITS | Encounter Summary ---
Author Organization [facility] Address [address] [place] [address] Care Team Providers Care Social Media Senior Associate Name Role Phone Natalie Ryan MD Primary Care Provider [phone] Blossom Cody ASSOCIATE DIRECTOR DATA & ANALYTICS Unavailable [phone] Encounter Details Date Type Department Care Team ([facility] Contact Info) Description 01/27/2024 Orders Only [facility] [address] [place] [address] Link Ortega ASSOCIATE DIRECTOR DATA & ANALYTICS [address] [place] [address] Social History Tobacco Use Types [...] often do you attend chur ch or congregation services? More than 4 times per year 03/23/2023 Do you belong to any clubs o r organizations such as jew groups, unions, fraternal or athletic groups, or [...] EDT Office Visit [facility] [address] [place] [address] Maria Fernanda Olguin NP [address] [place], [place] [address] documented as of this encounter Procedures Procedure [...] on filedocumented in this encounter Care Teams Social Media Senior Associate Relationship Specialty Start Date End Date Natalie Ryan MD PCP - General Family Medicine 09/15/22 Blossom Cody NP Nurse Practitioner Family Medicine 01/19/24 documented as of this encounter
--- OUTSIDE RECORDS SUMMARY | 2024-10-25 12:47 | XMS_ITS | Encounter Summary ---
Author Organization [facility] Address [address] [facility] [place] [address] Care Team Providers Care Logging Specialist Name Role Phone Natalie Ryan MD Primary Care Provider [phone] Blossom Cody GAS STATION SERVICE ATTENDANT Unavailable [phone] Encounter Details Date Type Department Care Team (Late Contact Info) Description 10/02/2022 Abstract [facility] [address] [place] [address] Natalie Ryan MD Social History Tobacco Use Types Packs/Day Years Used Date Smoking Tobacco: Never Assessed Sex and Gender Information Value Date Recorded Sex Assigned at Not on file Legal Sex Male 6:33 PM EDT Gender Identity Not on file Sexual Orientation Not on file documented as of this encounter Plan of Treatment Upcoming Encounters Date Type Department Care Team ([facility] Contact Info) Description 01/31/2025 9:30 AM EDT Office Visit [facility] [address] [place] [address] Maria Fernanda Olguin NP [address] [place], [place] [address] documented as of this encounter Visit Diagnoses Not on filedocumented in this encounter Care Teams Logging Specialist Relationship Specialty Start Date End Date Natalie Ryan MD PCP - General Family Medicine 09/15/22 Blossom Cody NP Nurse Practitioner Family Medicine 01/19/24 documented as of this encounter
--- OUTSIDE RECORDS SUMMARY | 2024-10-25 12:47 | XMS_ITS | Encounter Summary ---
Author Organization [facility] Address [address] [place] [address] Care Team Providers Care Batch Analyst Name Role Phone Natalie Ryan MD Primary Care Provider [phone] Blossom Cody SUPERVISOR SHIPPING ROOM Unavailable [phone] Encounter Details Date Type Department Care Team ([facility] Contact Info) Description 08/16/2024 Orders Only [facility] [address] [place] [address] Terence Glass MD [address] [place] [address] Social History Tobacco Use Types [...] often do you attend chur ch or faith services? More than 4 times per year 03/23/2023 Do you belong to any clubs o r organizations such as baptism groups, unions, fraternal or athletic groups, or [...] place to sleep or slept in a [place] [facility] (including now)? Patient refused 03/23/2023 Sex and [...] EDT Office Visit [facility] [address] [place] [address] Maria Fernanda Olguin NP [address] [place], [place] [address] documented as of this encounter Procedures Procedure [...] on filedocumented in this encounter Care Teams Batch Analyst Relationship Specialty Start Date End Date Natalie Ryan MD PCP - General Family Medicine 09/15/22 Blossom Cody NP Nurse Practitioner Family Medicine 01/19/24 documented as of this encounter
--- OUTSIDE RECORDS SUMMARY | 2024-10-25 12:47 | XMS_ITS | Encounter Summary ---
Author Organization [facility] Address [address] [place] [address] Care Team Providers Care Svp Operations Name Role Phone Natalie Ryan MD Primary Care Provider [phone] Blossom Cody PORCELAIN ENAMELING SUPERVISOR Unavailable [phone] Encounter Details Date Type Department Care Team ([facility] Contact Info) Description 11/15/2023 Abstract [facility] [address] [place] [address] Chidi Moore, DPM [address] [place], [place] [address] Social History Tobacco Use Types Packs/Day Years [...] any clubs o r organizations such as anglican groups, unions, fraternal or athletic groups, or [...] EDT Office Visit [facility] [address] [place] [address] Maria Fernanda Olguin NP [address] [place], [place] [address] documented as of this encounter Visit Diagnoses Not on filedocumented in this encounter Care Teams Svp Operations Relationship Specialty Start Date End Date Natalie Ryan MD PCP - General Family Medicine 09/15/22 Blossom Cody NP Nurse Practitioner Family Medicine 01/19/24 documented as of this encounter
--- OUTSIDE RECORDS SUMMARY | 2024-10-25 12:47 | XMS_ITS | Encounter Summary ---
Author Organization [facility] Address [address] [facility] [place] [address] Care Team Providers Care Contract Consultant Name Role Phone Natalie Ryan MD Primary Care Provider [phone] Blossom Cody CBX OPERATOR Unavailable [phone] Encounter Details Date Type Department Care Team (Late Contact Info) Description 09/22/2022 Abstract [facility] [address] [place] [address] Natalie Ryan MD Social History Tobacco Use Types Packs/Day Years Used Date Smoking Tobacco: Never Assessed Sex and Gender Information Value Date Recorded Sex Assigned at Not on file Legal Sex Male 6:33 PM EDT Gender Identity Not on file Sexual Orientation Not on file documented as of this encounter Plan of Treatment Upcoming Encounters Date Type Department Care Team ([facility] Contact Info) Description 01/31/2025 9:30 AM EDT Office Visit [facility] [address] [place] [address] Maria Fernanda Olguin NP [address] [place], [place] [phone] documented as of this encounter Visit Diagnoses Not on filedocumented in this encounter Care Teams Contract Consultant Relationship Specialty Start Date End Date Natalie Ryan MD PCP - General Family Medicine 09/15/22 Blossom Cody NP Nurse Practitioner Family Medicine 01/19/24 documented as of this encounter
--- OUTSIDE RECORDS SUMMARY | 2024-10-25 12:47 | XMS_ITS | Encounter Summary ---
Author Organization [facility] Address [address] [place] [address] Care Team Providers Care Bag Shop Worker Name Role Phone Natalie Ryan MD Primary Care Provider Blossom Cody MATERIAL HANDLER 2ND SHIFT Unavailable [phone] Encounter Details Date Type Department Care Team ([facility] Contact Info) Description 12/24/2023 Orders Only [facility] [address] [place] [address] Terence Glass MD [address] [place] [address] Social History Tobacco Use Types [...] often do you attend chur ch or catholic services? More than 4 times per year 03/23/2023 Do you belong to any clubs o r organizations such as hoahaoism groups, unions, fraternal or athletic groups, or [...] place to sleep or slept in a fci (including now)? Patient refused 03/23/2023 Sex and [...] EDT Office Visit [facility] [address] [place] [phone] Maria Fernanda Olguin NP [address] [place], [place] [address] documented as of this encounter Procedures Procedure [...] on filedocumented in this encounter Care Teams Bag Shop Worker Relationship Specialty Start Date End Date [place], Natalie Lozada MD PCP - General Family Medicine 09/15/22 Blossom Cody NP Nurse Practitioner Family Medicine 01/19/24 documented as of this encounter
--- OUTSIDE RECORDS SUMMARY | 2024-10-25 12:47 | XMS_ITS | Encounter Summary ---
Author Organization [facility] Address [address] [place] [address] Care Team Providers Care Automatic Paint Sprayer Operator Name Role Phone Natalie Ryan MD Primary Care Provider [phone] Blossom Cody PRESSING DEPARTMENT SUPERVISOR Unavailable [phone] Encounter Details Date Type Department Care Team ([facility] Contact Info) Description 05/19/2024 Abstract [facility] [address] [facility] [address] [place] [address] Unallocated, Noms Provider, [address] [place], [place] [address] Social History Tobacco Use Types Packs/Day Years [...] often do you attend chur ch or baptism services? More than 4 times per year 03/23/2023 Do you belong to any clubs o r organizations such as pentecostalism groups, unions, fraternal or athletic groups, or [...] EDT Office Visit [facility] [address] [place] [address] Maria Fernanda Olguin NP [address] [place], [place] [address] documented as of this encounter Visit Diagnoses Not on filedocumented in this encounter Care Teams Automatic Paint Sprayer Operator Relationship Specialty Start Date End Date Natalie Ryan MD PCP - General Family Medicine 09/15/22 Blossom Cody NP Nurse Practitioner Family Medicine 01/19/24 documented as of this encounter
--- OUTSIDE RECORDS SUMMARY | 2024-10-25 12:47 | XMS_ITS | Encounter Summary ---
Author Organization [facility] Address [address] [place] [address] Care Team Providers Care Java Technical Architect Name Role Phone Eric Hernandez MD Primary Care Provider [phone] Blossom Cody MILITARY COMMUNICATIONS SPECIALIST Unavailable [phone] Encounter Details Date Type Department Care Team ([facility] st Contact Info) Description 11/02/2023 Clinisync Result [...] often do you attend chur ch or christianity services? More than 4 times per year 03/23/2023 Do you belong to any clubs o r organizations such as yarsanism groups, unions, fraternal or athletic groups, or [...] 01/31/2025 9:30 AM EDT Office Visit [facility] [address] [place] [phone] Maria Fernanda Olguin NP [address] [place] [address] documented as of this encounter Procedures Procedure Name Priority Date/Time Associated Diagnosis Comments XR FOOT RT MIN 3V 11/02/2023 1:1 0 PM EDT documented in this encounter Results * XR FOOT RT MIN 3V (11/02/2023 1:10 PM EDT) Anatomical Region Laterality Modality Other 11/02/2023 1:10 PM EDT Narrative 11/02/2023 1:12 [place] [address] XRay Report Signed Patient: TREV MCKEON MR#: [id number] : 1980 Acct:[id number] Age/Sex: 43 / M ADM Date: 11/02/23 Loc: Attending Dr: Alex Johnson D.P.M. Ordering Physician: Alex Johnson D.P.M. Date of Service: 11/02/23 Procedure(s): XR foot RT min 3V Accession Number(s): [id number] cc: Alex Johnson D.P.M.; ERIC HERNANDEZ [address] [address] Patient Name: TREV MCKEON MRN: [id number] date: 1980 Sex: M Assigned Patient Location: Current Patient Location: Accession/Order Number: [id number] Exam Date: 11/02/2023 11:13 Report Date: 11/02/2023 [...] Signed By: 11/02/23 1312 DD/ 1310 TD/TT: Certified Medical Aide: Procedure Note Radiology, Radiologist, MD - 11/02/2023 [place] [address] XRay Report Signed Patient: TREV MCKEON BMR#: [id number] : 1980Acct:[id number] Age/Sex: 43 / MADM Date: 11/02/23 Loc: Attending Dr: Alex Johnson D.P.M. Ordering Physician: Alex Johnson D.P.M. Date of Service: 11/02/23 Procedure(s): XR foot RT min 3V Accession Number(s): [id number] cc: Alex Johnson D.P.M.; ERIC HERNANDEZ [place] [address] Patient Name: TREV MCKEON MRN: [id number] date: 1980 Sex: M Assigned Patient Location: Current Patient Location: Accession/Order Number: [id number] Exam Date: 11/02/2023 11:13 Report Date: 11/02/2023 [...] M.D. Signed By:11/02/23 1312 DD/ 1310 TD/TT: Certified Medical Aide: Generic External Data Provider [facility] Final Result documented in this encounter Visit Diagnoses Not on filedocumented in this encounter Care Teams Java Technical Architect Relationship Specialty Start Date End Date Eric Hernandez MD PCP - General Family Medicine 09/15/22 Blossom Cody NP Nurse Practitioner Family Medicine 01/19/24 documented as of this encounter
--- OUTSIDE RECORDS SUMMARY | 2024-10-25 12:47 | XMS_ITS | Encounter Summary ---
Author Organization [facility] Address [address] [place] [address] Care Team Providers Care Budget Examiner Name Role Phone Natalie Ryan MD Primary Care Provider [phone] Blossom Cody LABORATORY MECHANIC HELPER Unavailable [phone] Encounter Details Date Type Department Care Team ([facility] Contact Info) Description 09/20/2023 Abstract [facility] [address] [place] [phone] Chidi Moore, DPM [address] [place], [place] [phone] Social History Tobacco Use Types Packs/Day Years [...] often do you attend chur ch or roman catholic services? More than 4 times per year 03/23/2023 Do you belong to any clubs o r organizations such as bahai groups, unions, fraternal or athletic groups, or [...] place to sleep or slept in a prison (including now)? Patient refused 03/23/2023 Sex and [...] EDT Office Visit [facility] [address] [place] [phone] Maria Fernanda Olguin NP [address] [place], [place] [phone] documented as of this encounter Visit Diagnoses Not on filedocumented in this encounter Care Teams Budget Examiner Relationship Specialty Start Date End Date Natalie Ryan MD PCP - General Family Medicine 09/15/22 Blossom Cody NP Nurse Practitioner Family Medicine 01/19/24 documented as of this encounter
--- OUTSIDE RECORDS SUMMARY | 2024-10-25 12:47 | XMS_ITS | Encounter Summary ---
Author Organization [facility] Address [address] [place] [address] Care Team Providers Care Service Station Helper Name Role Phone Natalie Ryan MD Primary Care Provider [phone] Blossom Cody COVERING MACHINE TENDER Unavailable [phone] Encounter Details Date Type Department Care Team ([facility] Contact Info) Description 08/02/2023 Abstract [facility] [address] [place] [phone] Chidi Moore, DPM [address] [place], [place] [phone] Social History Tobacco Use Types Packs/Day Years [...] often do you attend chur ch or yarsanism services? More than 4 times per year 03/23/2023 Do you belong to any clubs o r organizations such as taoism groups, unions, fraternal or athletic groups, or [...] EDT Office Visit [facility] [address] [place] [phone] Maria Fernanda Olguin NP [address] [place], [place] [address] documented as of this encounter Visit Diagnoses Not on filedocumented in this encounter Care Teams Service Station Helper Relationship Specialty Start Date End Date Natalie Ryan MD PCP - General Family Medicine 09/15/22 Blossom Cody NP Nurse Practitioner Family Medicine 01/19/24 documented as of this encounter
--- OUTSIDE RECORDS SUMMARY | 2024-10-25 12:47 | XMS_ITS | Encounter Summary ---
Author Organization [facility] Address [address] [place] [address] Care Team Providers Care Speeder Worker Name Role Phone Natalie Ryan MD Primary Care Provider [phone] Blossom Cody NUCLEAR OPERATIONS SPECIALIST Unavailable [phone] Encounter Details Date Type Department Care Team (Late Contact Info) Description 10/06/2022 Clinisync Result Encounter [facility] External Department Unsolicited Natalie Ryan MD Social History Tobacco Use Types Packs/Day Years Used Date Smoking Tobacco: Never Assessed Sex and Gender Information Value Date Recorded Sex Assigned at Not on file Legal Sex Male 6:33 PM EDT Gender Identity Not on file Sexual Orientation Not on file documented as of this encounter Plan of Treatment Upcoming Encounters Date Type Department Care Team (Late Contact Info) Description 01/31/2025 9:30 AM EDT Office Visit [facility] [address] [place] [address] Maria Fernanda Olguin NP [address] [place] [address] documented as of this encounter Procedures Procedure [...] authenticated by: FRANCO FRANCES Date: 2022-10-06 14:13 Natalie Ryan MD [facility] Final Resul t documented in this encounter Visit Diagnoses Not on filedocumented in this encounter Care Teams Speeder Worker Relationship Specialty Start Date End Date Natalie Ryan MD PCP - General Family Medicine 09/15/22 Blossom Cody NP Nurse Practitioner Family Medicine 01/19/24 documented as of this encounter
--- OUTSIDE RECORDS SUMMARY | 2024-10-25 12:47 | XMS_ITS | Encounter Summary ---
Author Organization [facility] Address [address] [place] [address] Care Team Providers Care Flour Blender Helper Name Role Phone Natalie Ryan MD Primary Care Provider [phone] Blossom Cody HEAD LIBRARIAN Unavailable [phone] Encounter Details Date Type Department Care Team ([facility] Contact Info) Description 10/19/2024 Bamboo flowsheet [facility] [address] [place] [phone] Maria Fernanda Olguin NP [address] [place] [address] Social History Tobacco Use Types [...] often do you attend chur ch or cheondoism services? More than 4 times per year [...] EDT Office Visit [facility] [address] [place] [phone] Maria Fernanda Olguin NP [address] [place], [place] [phone] documented as of this encounter Visit Diagnoses Not on filedocumented in this encounter Care Teams Flour Blender Helper Relationship Specialty Start Date End Date Natalie Ryan MD PCP - General Family Medicine 09/15/22 Blossom Cody NP Nurse Practitioner Family Medicine 01/19/24 documented as of this encounter
--- OUTSIDE RECORDS SUMMARY | 2024-10-25 12:47 | XMS_ITS | Encounter Summary ---
Author Organization [facility] Address [address] [place] [address] Care Team Providers Care Political Consultant Name Role Phone Natalie Ryan MD Primary Care Provider [phone] Blossom Cody PIG FARM MANAGER Unavailable [phone] Encounter Details Date Type Department Care Team ([facility] Contact Info) Description 06/15/2024 Abstract [facility] [address] [place] [address] Natalie Ryan MD Social History [...] often do you attend chur ch or druze services? More than 4 times per year [...] place to sleep or slept in a long term (including now)? Patient refused 03/23/2023 Sex and [...] EDT Office Visit [facility] [address] [place] [address] Maria Fernanda Olguin NP [address] [place], [place] [address] documented as of this encounter Visit Diagnoses Not on filedocumented in this encounter Care Teams Political Consultant Relationship Specialty Start Date End Date Shelby, Natalie Lozada MD PCP - General Family Medicine 09/15/22 Blossom Cody NP Nurse Practitioner Family Medicine 01/19/24 documented as of this encounter
--- OUTSIDE RECORDS SUMMARY | 2024-10-25 12:47 | XMS_ITS | Encounter Summary ---
Author Organization [facility] Address [address] [facility] [place] [address] Care Team Providers Care Reconditioning Associate Name Role Phone Eric Hernandez MD Primary Care Provider [phone] REGISTRY OFFICER Unavailable [phone] Encounter Details Date Type Department Care Team ([facility] Contact Info) Description 02/19/2023 Clinisync Result Encounter [...] Upcoming Encounters Date Type Department Care Team ([facility] Contact Info) Description 01/31/2025 9:30 AM EDT Office Visit [facility] [address] [place] [phone] Maria Fernanda Olguin COURT REGISTRY OFFICER [address] [place] [address] [phone] (work) documented as of this encounter Procedures Procedure Name Priority Date/Time Associated Diagnosis Comments XR FOOT LT MIN 3V 02/19/2023 2:5 5 PM EDT documented in this encounter Results * XR FOOT LT MIN 3V (02/19/2023 2:55 PM EDT) Anatomical Region Laterality Modality Other 02/19/2023 2:55 PM EDT Narrative 02/19/2023 2:55 [place] [address] XRay Report Signed Patient: Trev Mckeon MR#: [id number] : 1980 Acct:[id number] Age/Sex: 42 / M ADM Date: 02/19/23 Loc: Attending Dr: Jesus Feldman D.P.M. Ordering Physician: Jesus Feldman M.D. Date of Service: 02/19/23 Procedure(s): XR foot LT min 3V Accession Number(s): [id number] cc: Jesus Feldman M.D.; ERIC HERNANDEZ [place] [id number] Patient Name: TREV MCKEON MRN: [id number] date: 1980 Sex: M Assigned Patient Location: Current Patient Location: Accession/Order Number: [id number] Exam Date: 02/19/2023 10:00 Report Date: 02/19/2023 [...] Signed By: 02/19/23 1457 DD/ 1455 TD/TT: Radiology Services Manager: Procedure Note Radiology, Radiologist, MD - 02/19/2023 [place] [address] XRay Report Signed Patient: Trev Mckeon BMR#: [id number] : 1980Acct:[id number] Age/Sex: 42 / MADM Date: 02/19/23 Loc: Attending Dr: Jesus Feldman D.P.M. Ordering Physician: Jesus Feldman M.D. Date of Service: 02/19/23 Procedure(s): XR foot LT min 3V Accession Number(s): [id number] cc: Jesus Feldman M.D.; ERIC HERNANDEZ [place] [address] Patient Name: TREV MCKEON MRN: [id number] date: 1980 Sex: M Assigned Patient Location: Current Patient Location: Accession/Order Number: [id number] Exam Date: 02/19/2023 10:00 Report Date: 02/19/2023 [...] 14:55 Dictated By: Gissel Nayak M.D. Signed By:02/19/23 1457 DD/ 145 TD/TT: Radiology Services Manager: us Generic External Data Provider [facility] Final Result documented in this encounter Visit Diagnoses Not on filedocumented in this encounter Care Teams Reconditioning Associate Relationship Specialty Start Date End Date Eric Hernandez MD PCP - General Family Medicine 09/15/22 Blossom Cody NP Nurse Practitioner Family Medicine 01/19/24 documented as of this encounter
--- OUTSIDE RECORDS SUMMARY | 2024-10-25 12:47 | XMS_ITS | Encounter Summary ---
Author Organization [facility] Address [address] [place] [address] Care Team Providers Care Cement Finisher Helper Name Role Phone Natalie Ryan MD Primary Care Provider [phone] Blossom Cody NUCLEAR OPERATIONS SPECIALIST Unavailable [phone] Encounter Details Date Type Department Care Team (Latest Contact Info) Description 10/19/2024 Travel Social History Tobacco Use Types Packs/Day Years [...] often do you attend chur ch or episcopalian services? More than 4 times per year [...] Office Visit [facility] [address] [place] [address] Maria Fernanda Olguin NP [address] [place], [place] [address] documented as of this encounter Visit Diagnoses Not on filedocumented in this encounter Care Teams Cement Finisher Helper Relationship Specialty Start Date End Date Natalie Ryan MD PCP - General Family Medicine 09/15/22 Blossom Cody NP Nurse Practitioner Family Medicine 01/19/24 documented as of this encounter
--- OUTSIDE RECORDS SUMMARY | 2024-10-25 12:47 | XMS_ITS | Encounter Summary ---
Author Organization [facility] Address [address] [place] [address] Care Team Providers Care Professor Of Marketing Name Role Phone Eric Heranndez MD Primary Care Provider [phone] Blossom Cody SNOWBOARD INSTRUCTOR Unavailable [phone] Encounter Details Date Type Department Care Team ([facility] st Contact Info) Description 04/28/2023 Clinisync [...] any clubs o r organizations such as anabaptist groups, unions, fraternal or athletic groups, or [...] 9:30 AM EDT Office Visit [facility] [address] [place] [phone] Maria Fernanda Olguin NP [address] [place] [address] documented as of this encounter Procedures Procedure Name Priority Date/Time Associated Diagnosis Comments XR FOOT LT MIN 3V 04/28/2023 2:2 6 PM EST documented in this encounter Results * XR FOOT LT MIN 3V (04/28/2023 2:26 PM EST) Anatomical Region Laterality Modality Other 04/28/2023 2:26 PM EST Narrative 04/28/2023 2:29 [place] [address] XRay Report Signed Patient: TREV MCKEON MR#: [id number] : 1980 Acct:[id number] Age/Sex: 42 / M ADM Date: 04/28/23 Loc: Attending Dr: Jesus Feldman D.P.M. Ordering Physician: Jesus Feldman D.P.M. Date of Service: 04/28/23 Procedure(s): XR foot LT min 3V Accession Number(s): [id number] cc: Jesus Feldman D.P.M.; ERIC HERNANDEZ [address] [address] Patient Name: TREV MCKEON MRN: [id number] date: 1980 Sex: M Assigned Patient Location: Current Patient Location: Accession/Order Number: [id number] Exam Date: 04/28/2023 10:10 Report Date: 04/28/2023 14:26 At the request of: JESUS FELDMAN Procedure: XR foot LT min 3V PROCEDURE: XR foot LT min 3V DATE: 04/28/2023 9:10 AM PIT CRANE OPERATOR COMPARISONS: 02/19/2023 CLINICAL INDICATION: LEFT FOOT BLISTER [...] Signed By: 04/28/23 1429 DD/ 1426 TD/TT: Air Defense Artillery Officer: Procedure Note Radiology, Radiologist, MD - 07/14/2023 [place] [address] XRay Report Signed Patient: TREV MCKEON BMR#: [id number] : 1980Acct:[id number] Age/Sex: 42 / MADM Date: 04/28/23 Loc: WC Attending Dr: Jesus Feldman D.P.M. Ordering Physician: Jesus Feldman D.P.M. Date of Service: 04/28/23 Procedure(s): XR foot LT min 3V Accession Number(s): [id number] cc: Jesus Feldman D.P.M.; ERIC HERNANDEZ [place] [id number] Patient Name: TREV MCKEON MRN: [id number] date: 1980 Sex: M Assigned Patient Location: Current Patient Location: Accession/Order Number: [id number] Exam Date: 04/28/2023 10:10 Report Date: 04/28/2023 14:26 At the request of: JESUS FELDMAN Procedure: XR foot LT min 3V PROCEDURE: XR foot LT min 3V DATE: 04/28/2023 9:10 AM PIT CRANE OPERATOR COMPARISONS: 02/19/2023 CLINICAL INDICATION: LEFT FOOT BLISTER [...] M.D. Signed By:04/28/23 1429 DD/ 1426 TD/TT: Air Defense Artillery Officer: us Generic External Data Provider [facility] Final Result documented in this encounter Visit Diagnoses Not on filedocumented in this encounter Care Teams Professor Of Marketing Relationship Specialty Start Date End Date Shelby, Eric Lozada MD PCP - General Family Medicine 09/15/22 Blossom Cody NP Nurse Practitioner Family Medicine 01/19/24 documented as of this encounter
--- OUTSIDE RECORDS SUMMARY | 2024-10-25 12:47 | XMS_ITS | Encounter Summary ---
Author Organization [facility] Address [address] [place] [address] Care Team Providers Care Dispatch Lead Name Role Phone Natalie Ryan MD Primary Care Provider [phone] Blossom Cody BATTERY MECHANIC Unavailable [phone] Encounter Details Date Type Department Care Team ([facility] Contact Info) Description 10/20/2023 Orders Only [facility] [address] [place] [address] Link Ortega BATTERY MECHANIC [address] [place] [address] Social History Tobacco Use Types [...] often do you attend chur ch or lutheran services? More than 4 times per year 03/23/2023 Do you belong to any clubs o r organizations such as spiritism groups, unions, fraternal or athletic groups, or [...] place to sleep or slept in a [facility] (including now)? Patient refused 03/23/2023 Sex and Gender Information Value Date Recorded Sex Assigned at Not on file Legal Sex Male 6:33 PM EDT Gender Identity Not on file Sexual Orientation Not on file documented as of this encounter Plan of Treatment Upcoming Encounters Date Type Department Care Team (Late st Contact Info) Description 01/31/2025 9:30 AM EDT Office Visit [facility] [address] [place] [address] Maria Fernanda Olguin NP [address] [place], [place] [phone] documented as of this encounter Procedures Procedure [...] on filedocumented in this encounter Care Teams Dispatch Lead Relationship Specialty Start Date End Date Natalie Ryan MD PCP - General Family Medicine 09/15/22 Blossom Cody NP Nurse Practitioner Family Medicine 01/19/24 documented as of this encounter
--- OUTSIDE RECORDS SUMMARY | 2024-10-25 12:47 | XMS_ITS | Encounter Summary ---
Author Organization [facility] Address [address] [place] [address] Care Team Providers Care [facility] Consultant Name Role Phone Natalie Ryan MD Primary Care Provider [phone] Blossom Cody COOKER MEAL Unavailable [phone] Encounter Details Date Type Department Care Team ([facility] Contact Info) Description 08/21/2024 Orders Only [facility] [address] [place] [address] Link Ortega COOKER MEAL [address] [place] [address] Social History Tobacco Use Types [...] often do you attend chur ch or hindu services? More than 4 times per year 03/23/2023 Do you belong to any clubs o r organizations such as nondenominational groups, unions, fraternal or athletic groups, or [...] place to sleep or slept in a half-way (including now)? Patient refused 03/23/2023 Sex and [...] EDT Office Visit [facility] [address] [place] [address] Maria Fernanda Olguin NP [address] [place], [place] [address] documented as of this encounter Procedures Procedure [...] on filedocumented in this encounter Care Teams Healthcare Network Consultant Relationship Specialty Start Date End Date Natalie Ryan MD PCP - General Family Medicine 09/15/22 Blossom Cody NP Nurse Practitioner Family Medicine 01/19/24 documented as of this encounter
--- OUTSIDE RECORDS SUMMARY | 2024-10-25 12:47 | XMS_ITS | Patient Health Record ---
Author Organization [facility] [place] Address [address] [place] [address] Care Team Providers Care Case Management Associate Name Role Phone Natalie Hernandez Primary Care Provider Natanael Dai [phone] Results Component Value Reference Range Notes Anaerobic Culture (Not yet r eviewed by provider) Interpretation: Performing Lab: Notes/Report: [facility] , Anaerobic Culture See Below For Report Anaerobic Culture Anaerobic Culture No anaerobic growth in 72 hours. Anaerobic Culture Performing Lab: see note LC - [facility] LB Aerobic Culture (Not yet rev iewed by provider) Interpretation: Performing Lab: Notes/Report: [facility] , Aerobic Culture See Below For Report Aerobic Culture WILL FOLLOW O:GNR Isolated O:PSAV Isolated Organism: 2.2 Antibiotic Interpretation [facility] Status Amikacin Amikacin S F Cefepime Cefepime S F Ceftazidime Ceftazidime S F Ciprofloxacin Ciprofloxacin S F Gentamicin Gentamicin S F Imipenem Imipenem S F Levofloxacin Levofloxacin S F Meropenem Meropenem S F Piperacillin Piperacillin S F Ticarcillin Ticarcillin S F Tobramycin Tobramycin S F Aerobic Culture Organism: Gram negat brittney rivas : Aerobic Culture WILL FOLLOW O:GNR Isolated O:PSAV Isolated Organism: 2.2 Antibiotic Interpretation [facility] Status Amikacin Amikacin S F Cefepime Cefepime S F Ceftazidime Ceftazidime S F Ciprofloxacin Ciprofloxacin S F Gentamicin Gentamicin S F Imipenem Imipenem S F Levofloxacin Levofloxacin S F Meropenem Meropenem S F Piperacillin Piperacillin S F Ticarcillin Ticarcillin S F Tobramycin Tobramycin S F Aerobic Culture *ABNORMAL* Aerobic Culture WILL FOLLOW O:GNR Isolated O:PSAV Isolated Organism: 2.2 Antibiotic Interpretation [facility] Status Amikacin Amikacin S F Cefepime Cefepime S F Ceftazidime Ceftazidime S F Ciprofloxacin Ciprofloxacin S F Gentamicin Gentamicin S F Imipenem Imipenem S F Levofloxacin Levofloxacin S F Meropenem Meropenem S F Piperacillin Piperacillin S F Ticarcillin Ticarcillin S F Tobramycin Tobramycin S F Aerobic Culture Heavy growth Aerobic Culture WILL FOLLOW O:GNR Isolated O:PSAV Isolated Organism: 2.2 Antibiotic Interpretation [facility] Status Amikacin Amikacin S F Cefepime Cefepime S F Ceftazidime Ceftazidime S F Ciprofloxacin Ciprofloxacin S F Gentamicin Gentamicin S F Imipenem Imipenem S F Levofloxacin Levofloxacin S F Meropenem Meropenem S F Piperacillin Piperacillin S F Ticarcillin Ticarcillin S F Tobramycin Tobramycin S F Aerobic Culture Aerobic Culture WILL FOLLOW O:GNR Isolated O:PSAV Isolated Organism: 2.2 Antibiotic Interpretation [facility] Status Amikacin Amikacin S F Cefepime Cefepime S F Ceftazidime Ceftazidime S F Ciprofloxacin Ciprofloxacin S F Gentamicin Gentamicin S F Imipenem Imipenem S F Levofloxacin Levofloxacin S F Meropenem Meropenem S F Piperacillin Piperacillin S F Ticarcillin Ticarcillin S F Tobramycin Tobramycin S F Aerobic Culture Mixed skin maximiliano Aerobic Culture WILL FOLLOW O:GNR Isolated O:PSAV Isolated Organism: 2.2 Antibiotic Interpretation [facility] Status Amikacin Amikacin S F Cefepime Cefepime S F Ceftazidime Ceftazidime S F Ciprofloxacin Ciprofloxacin S F Gentamicin Gentamicin S F Imipenem Imipenem S F Levofloxacin Levofloxacin S F Meropenem Meropenem S F Piperacillin Piperacillin S F Ticarcillin Ticarcillin S F Tobramycin Tobramycin S F Aerobic Culture Heavy growth Aerobic Culture WILL FOLLOW O:GNR Isolated O:PSAV Isolated Organism: 2.2 Antibiotic Interpretation [facility] Status Amikacin Amikacin S F Cefepime Cefepime S F Ceftazidime Ceftazidime S F Ciprofloxacin Ciprofloxacin S F Gentamicin Gentamicin S F Imipenem Imipenem S F Levofloxacin Levofloxacin S F Meropenem Meropenem S F Piperacillin Piperacillin S F Ticarcillin Ticarcillin S F Tobramycin Tobramycin S F Aerobic Culture Gram negative rivas Aerobic Culture WILL FOLLOW O:GNR Isolated O:PSAV Isolated Organism: 2.2 Antibiotic Interpretation [facility] Status Amikacin Amikacin S F Cefepime Cefepime S F Ceftazidime Ceftazidime S F Ciprofloxacin Ciprofloxacin S F Gentamicin Gentamicin S F Imipenem Imipenem S F Levofloxacin Levofloxacin S F Meropenem Meropenem S F Piperacillin Piperacillin S F Ticarcillin Ticarcillin S F Tobramycin Tobramycin S F Aerobic Culture Organism: Pseudomona s aeruginosa.. : Aerobic Culture WILL FOLLOW O:GNR Isolated O:PSAV Isolated Organism: 2.2 Antibiotic Interpretation [facility] Status Amikacin Amikacin S F Cefepime Cefepime S F Ceftazidime Ceftazidime S F Ciprofloxacin Ciprofloxacin S F Gentamicin Gentamicin S F Imipenem Imipenem S F Levofloxacin Levofloxacin S F Meropenem Meropenem S F Piperacillin Piperacillin S F Ticarcillin Ticarcillin S F Tobramycin Tobramycin S F Aerobic Culture *ABNORMAL* Aerobic Culture WILL FOLLOW O:GNR Isolated O:PSAV Isolated Organism: 2.2 Antibiotic Interpretation [facility] Status Amikacin Amikacin S F Cefepime Cefepime S F Ceftazidime Ceftazidime S F Ciprofloxacin Ciprofloxacin S F Gentamicin Gentamicin S F Imipenem Imipenem S F Levofloxacin Levofloxacin S F Meropenem Meropenem S F Piperacillin Piperacillin S F Ticarcillin Ticarcillin S F Tobramycin Tobramycin S F Aerobic Culture Heavy growth Aerobic Culture WILL FOLLOW O:GNR Isolated O:PSAV Isolated Organism: 2.2 Antibiotic Interpretation [facility] Status Amikacin Amikacin S F Cefepime Cefepime S F Ceftazidime Ceftazidime S F Ciprofloxacin Ciprofloxacin S F Gentamicin Gentamicin S F Imipenem Imipenem S F Levofloxacin Levofloxacin S F Meropenem Meropenem S F Piperacillin Piperacillin S F Ticarcillin Ticarcillin S F Tobramycin Tobramycin S F Aerobic Culture Aerobic Culture WILL FOLLOW O:GNR Isolated O:PSAV Isolated Organism: 2.2 Antibiotic Interpretation [facility] Status Amikacin Amikacin S F Cefepime Cefepime S F Ceftazidime Ceftazidime S F Ciprofloxacin Ciprofloxacin S F Gentamicin Gentamicin S F Imipenem Imipenem S F Levofloxacin Levofloxacin S F Meropenem Meropenem S F Piperacillin Piperacillin S F Ticarcillin Ticarcillin S F Tobramycin Tobramycin S F Aerobic Culture Mixed skin maximiliano Aerobic Culture WILL FOLLOW O:GNR Isolated O:PSAV Isolated Organism: 2.2 Antibiotic Interpretation [facility] Status Amikacin Amikacin S F Cefepime Cefepime S F Ceftazidime Ceftazidime S F Ciprofloxacin Ciprofloxacin S F Gentamicin Gentamicin S F Imipenem Imipenem S F Levofloxacin Levofloxacin S F Meropenem Meropenem S F Piperacillin Piperacillin S F Ticarcillin Ticarcillin S F Tobramycin Tobramycin S F Aerobic Culture Heavy growth Aerobic Culture WILL FOLLOW O:GNR Isolated O:PSAV Isolated Organism: 2.2 Antibiotic Interpretation [facility] Status Amikacin Amikacin S F Cefepime Cefepime S F Ceftazidime Ceftazidime S F Ciprofloxacin Ciprofloxacin S F Gentamicin Gentamicin S F Imipenem Imipenem S F Levofloxacin Levofloxacin S F Meropenem Meropenem S F Piperacillin Piperacillin S F Ticarcillin Ticarcillin S F Tobramycin Tobramycin S F Aerobic Culture Pseudomonas aeruginosa.. Aerobic Culture WILL FOLLOW O:GNR Isolated O:PSAV Isolated Organism: 2.2 Antibiotic Interpretation [facility] Status Amikacin Amikacin S F Cefepime Cefepime S F Ceftazidime Ceftazidime S F Ciprofloxacin Ciprofloxacin S F Gentamicin Gentamicin S F Imipenem Imipenem S F Levofloxacin Levofloxacin S F Meropenem Meropenem S F Piperacillin Piperacillin S F Ticarcillin Ticarcillin S F Tobramycin Tobramycin S F Aerobic Culture See Below For Report Aerobic Culture WILL FOLLOW O:GNR Isolated O:PSAV Isolated Organism: 2.2 Antibiotic Interpretation [facility] Status Amikacin Amikacin S F Cefepime Cefepime S F Ceftazidime Ceftazidime S F Ciprofloxacin Ciprofloxacin S F Gentamicin Gentamicin S F Imipenem Imipenem S F Levofloxacin Levofloxacin S F Meropenem Meropenem S F Piperacillin Piperacillin S F Ticarcillin Ticarcillin S F Tobramycin Tobramycin S F Aerobic Culture See Below For Report Aerobic Culture WILL FOLLOW O:GNR Isolated O:PSAV Isolated Organism: 2.2 Antibiotic Interpretation [facility] Status Amikacin Amikacin S F Cefepime Cefepime S F Ceftazidime Ceftazidime S F Ciprofloxacin Ciprofloxacin S F Gentamicin Gentamicin S F Imipenem Imipenem S F Levofloxacin Levofloxacin S F Meropenem Meropenem S F Piperacillin Piperacillin S F Ticarcillin Ticarcillin S F Tobramycin Tobramycin S F Aerobic Culture See Below For Report Aerobic Culture WILL FOLLOW O:GNR Isolated O:PSAV Isolated Organism: 2.2 Antibiotic Interpretation [facility] Status Amikacin Amikacin S F Cefepime Cefepime S F Ceftazidime Ceftazidime S F Ciprofloxacin Ciprofloxacin S F Gentamicin Gentamicin S F Imipenem Imipenem S F Levofloxacin Levofloxacin S F Meropenem Meropenem S F Piperacillin Piperacillin S F Ticarcillin Ticarcillin S F Tobramycin Tobramycin S F Aerobic Culture See Below For Report Aerobic Culture WILL FOLLOW O:GNR Isolated O:PSAV Isolated Organism: 2.2 Antibiotic Interpretation [facility] Status Amikacin Amikacin S F Cefepime Cefepime S F Ceftazidime Ceftazidime S F Ciprofloxacin Ciprofloxacin S F Gentamicin Gentamicin S F Imipenem Imipenem S F Levofloxacin Levofloxacin S F Meropenem Meropenem S F Piperacillin Piperacillin S F Ticarcillin Ticarcillin S F Tobramycin Tobramycin S F Aerobic Culture See Below For Report Aerobic Culture WILL FOLLOW O:GNR Isolated O:PSAV Isolated Organism: 2.2 Antibiotic Interpretation [facility] Status Amikacin Amikacin S F Cefepime Cefepime S F Ceftazidime Ceftazidime S F Ciprofloxacin Ciprofloxacin S F Gentamicin Gentamicin S F Imipenem Imipenem S F Levofloxacin Levofloxacin S F Meropenem Meropenem S F Piperacillin Piperacillin S F Ticarcillin Ticarcillin S F Tobramycin Tobramycin S F Aerobic Culture See Below For Report Aerobic Culture WILL FOLLOW O:GNR Isolated O:PSAV Isolated Organism: 2.2 Antibiotic Interpretation [facility] Status Amikacin Amikacin S F Cefepime Cefepime S F Ceftazidime Ceftazidime S F Ciprofloxacin Ciprofloxacin S F Gentamicin Gentamicin S F Imipenem Imipenem S F Levofloxacin Levofloxacin S F Meropenem Meropenem S F Piperacillin Piperacillin S F Ticarcillin Ticarcillin S F Tobramycin Tobramycin S F Aerobic Culture See Below For Report Aerobic Culture WILL FOLLOW O:GNR Isolated O:PSAV Isolated Organism: 2.2 Antibiotic Interpretation [facility] Status Amikacin Amikacin S F Cefepime Cefepime S F Ceftazidime Ceftazidime S F Ciprofloxacin Ciprofloxacin S F Gentamicin Gentamicin S F Imipenem Imipenem S F Levofloxacin Levofloxacin S F Meropenem Meropenem S F Piperacillin Piperacillin S F Ticarcillin Ticarcillin S F Tobramycin Tobramycin S F Aerobic Culture See Below For Report Aerobic Culture WILL FOLLOW O:GNR Isolated O:PSAV Isolated Organism: 2.2 Antibiotic Interpretation [facility] Status Amikacin Amikacin S F Cefepime Cefepime S F Ceftazidime Ceftazidime S F Ciprofloxacin Ciprofloxacin S F Gentamicin Gentamicin S F Imipenem Imipenem S F Levofloxacin Levofloxacin S F Meropenem Meropenem S F Piperacillin Piperacillin S F Ticarcillin Ticarcillin S F Tobramycin Tobramycin S F Aerobic Culture See Below For Report Aerobic Culture WILL FOLLOW O:GNR Isolated O:PSAV Isolated Organism: 2.2 Antibiotic Interpretation [facility] Status Amikacin Amikacin S F Cefepime Cefepime S F Ceftazidime Ceftazidime S F Ciprofloxacin Ciprofloxacin S F Gentamicin Gentamicin S F Imipenem Imipenem S F Levofloxacin Levofloxacin S F Meropenem Meropenem S F Piperacillin Piperacillin S F Ticarcillin Ticarcillin S F Tobramycin Tobramycin S F Aerobic Culture See Below For Report Aerobic Culture WILL FOLLOW O:GNR Isolated O:PSAV Isolated Organism: 2.2 Antibiotic Interpretation [facility] Status Amikacin Amikacin S F Cefepime Cefepime S F Ceftazidime Ceftazidime S F Ciprofloxacin Ciprofloxacin S F Gentamicin Gentamicin S F Imipenem Imipenem S F Levofloxacin Levofloxacin S F Meropenem Meropenem S F Piperacillin Piperacillin S F Ticarcillin Ticarcillin S F Tobramycin Tobramycin S F Aerobic Culture See Below For Report Aerobic Culture WILL FOLLOW O:GNR Isolated O:PSAV Isolated Organism: 2.2 Antibiotic Interpretation [facility] Status Amikacin Amikacin S F Cefepime Cefepime S F Ceftazidime Ceftazidime S F Ciprofloxacin Ciprofloxacin S F Gentamicin Gentamicin S F Imipenem Imipenem S F Levofloxacin Levofloxacin S F Meropenem Meropenem S F Piperacillin Piperacillin S F Ticarcillin Ticarcillin S F Tobramycin Tobramycin S F Aerobic Culture See Below For Report Aerobic Culture WILL FOLLOW O:GNR Isolated O:PSAV Isolated Organism: 2.2 Antibiotic Interpretation [facility] Status Amikacin Amikacin S F Cefepime Cefepime S F Ceftazidime Ceftazidime S F Ciprofloxacin Ciprofloxacin S F Gentamicin Gentamicin S F Imipenem Imipenem S F Levofloxacin Levofloxacin S F Meropenem Meropenem S F Piperacillin Piperacillin S F Ticarcillin Ticarcillin S F Tobramycin Tobramycin S F Aerobic Culture See Below For Report Aerobic Culture WILL FOLLOW O:GNR Isolated O:PSAV Isolated Organism: 2.2 Antibiotic Interpretation [facility] Status Amikacin Amikacin S F Cefepime Cefepime S F Ceftazidime Ceftazidime S F Ciprofloxacin Ciprofloxacin S F Gentamicin Gentamicin S F Imipenem Imipenem S F Levofloxacin Levofloxacin S F Meropenem Meropenem S F Piperacillin Piperacillin S F Ticarcillin Ticarcillin S F Tobramycin Tobramycin S F Aerobic Culture See Below For Report Aerobic Culture WILL FOLLOW O:GNR Isolated O:PSAV Isolated Organism: 2.2 Antibiotic Interpretation [facility] Status Amikacin Amikacin S F Cefepime Cefepime S F Ceftazidime Ceftazidime S F Ciprofloxacin Ciprofloxacin S F Gentamicin Gentamicin S F Imipenem Imipenem S F Levofloxacin Levofloxacin S F Meropenem Meropenem S F Piperacillin Piperacillin S F Ticarcillin Ticarcillin S F Tobramycin Tobramycin S F Performing Lab: see note LC - [facility] SEE REPORT - Car Wrecker Id information not found for OBX-specific bright cutter legend XR foot RT min 3V (Not yet r eviewed by provider) Interpretation: Performing Lab: Notes/Report: Source Facility: [place] [address] XRay Report Signed Patient: TREV MCKEON MR#: [id number] : 1980 Acct:[id number] Age/Sex: 43 / M ADM Date: 04/25/24 Loc: Attending Dr: Martell Navas Ordering Physician: Martell Navas Date of Service: 04/25/24 Procedure(s): XR foot RT min 3V Accession Number(s): [id number] cc: Martell Navas; NATALIE HERNANDEZ [place] [phone] Patient Name: TREV MCKEON MRN: [facility]:[id number] date: 1980 Sex: M Assigned Patient Location: Current Patient Location: [place] Accession/Order Number: [id number] Exam Date: 04/25/2024 11:58 Report Date: 04/26/2024 [...] M.D. Signed By: 04/26/24905 DD/ 2 TD/TT: Vehicle And Equipment Cleaner: [place] [address] XRay Report Signed Patient: CITLALY MCKEON MR#: [id number] : 1980 Acct:[id number] Age/Sex: 43 / M ADM Date: 04/25/24 Loc: Attending Dr: Danielle Navas Ordering Physician: Martell Navas Date of Service: 04/25/24 Procedure(s): XR kristen t RT min 3V Accession Number(s): [id number] cc: Martell Navas; NATALIE HERNANDEZ [place] [phone] Patient Name: TREV MCKEON MRN: [id number] date: 1980 Sex: M Assigned Patient Location: Current Patient Location: [place] Accession/Order Numb er: [id number] Exam Date: 11:58 Report Date: 04/26/2024 09:03 [...] M.D. Signed By: 04/26/24905 DD/ 2 TD/TT: Vehicle And Equipment Cleaner: [employer] Specimen Processing (Not yet reviewed by [...] Acid Fast Smear See Below For Report Acid Fast Smear Negative Performing Lab: see note LC - [facility] Acid Fast Culture (Not yet r eviewed by provider) Interpretation: Performing Lab: Notes/Report: [facility] , Acid Fast Culture See Below For Report Acid Fast Culture Specimen has been received and testing has been initiated. Acid Fast Culture Negative Acid Fast Culture Specimen has been received and testing has been initiated. Acid Fast Culture No acid fast bacilli isolated after 6 weeks. Acid Fast Culture Specimen has been received and testing has been initiated. Acid Fast Culture Performed at: [facility] Acid Fast Culture Specimen has been received and testing has been initiated. Acid Fast Culture [address], [place] [id number] Acid Fast Culture Specimen has been received and testing has been initiated. Acid Fast Culture Casting Inspector: Nancy Everett PhD, Phone: [phone] Acid Fast Culture Specimen has been received and testing has been initiated. Performing Lab: see note LC - [facility] SEE REPORT - Car Wrecker Id information not found for OBX-specific bright cutter legend Fungus Stain (Not yet review ed by provider) Interpretation: Performing Lab: Notes/Report: Comment right foot fascia for culture [facility] , Fungus Stain See Below For Report Fungus Stain Fungus Stain SHAQ/Calcofluor preparation: no fungus observed. Fungus Stain Performing Lab: see note - [facility] Fungus (Mycology) Culture (N ot yet reviewed by provider) Interpretation: Performing Lab: Notes/Report: Comment right foot ulcer [facility] , Fungus (Mycology) Culture See Below For Report Fungus (Mycology) Culture WILL FOLLOW Fungus (Mycology) Culture No yeast or mold isolated after 4 weeks. Fungus (Mycology) Culture WILL FOLLOW Fungus (Mycology) Culture Performed at: [facility] Fungus (Mycology) Culture WILL FOLLOW Fungus (Mycology) Culture [address] [place] [phone] Fungus (Mycology) Culture WILL FOLLOW Fungus (Mycology) Culture Casting Inspector: Lalo Everett PhD, Phone: [phone] Fungus (Mycology) Culture WILL FOLLOW Performing Lab: see note - [facility] SEE REPORT - Car Wrecker Id information not found for OBX-specific bright cutter legend Anaerobic Culture (Not yet r eviewed by provider) Interpretation: Performing Lab: Notes/Report: [facility] , Anaerobic Culture See Below For Report Anaerobic Culture O:PREDIS Isolated Anaerobic Culture Holding for possible anaerobes. Anaerobic Culture O:PREDIS Isolated Anaerobic Culture Organism: Prevotella disiens : Anaerobic Culture O:PREDIS Isolated Anaerobic Culture *ABNORMAL* Anaerobic Culture O:PREDIS Isolated Anaerobic Culture Light growth Anaerobic Culture O:PREDIS Isolated Anaerobic Culture Studies at [facility] have confirmed the Anaerobic Culture O:PREDIS Isolated Anaerobic Culture observations of othe rs who have demonstrated that Anaerobic Culture O:PREDIS Isolated Anaerobic Culture Prevotella, Porphyromonas and Bacteroides species Anaerobic Culture O:PREDIS Isolated Anaerobic Culture other than Bacteroid es fragilis group are routinely Anaerobic Culture O:PREDIS Isolated Anaerobic Culture susceptible to Cefoxitin, Chloramphenicol, and Anaerobic Culture O:PREDIS Isolated Anaerobic Culture Metronidazole and ar e usually resistant to Penicillin. Anaerobic Culture O:PREDIS Isolated Anaerobic Culture Prevotella disiens Anaerobic Culture O:PREDIS Isolated Anaerobic Culture See Below For Report Anaerobic Culture O:PREDIS Isolated Performing Lab: see note - [facility] Fungus Stain (Not yet review ed [...] Culture WILL FOLLOW Performing Lab: see note LC - [facility] GRAM STAIN (Not yet reviewed by provider) Interpretation: Performing Lab: Notes/Report: [facility] , Gram Stain See Below For [...] Epithelial Cells Performing Lab: see note - [facility] Fungus Stain (Not yet review ed by provider) Interpretation: Performing Lab: Notes/Report: [facility] , Fungus Stain See Below For Report Fungus Stain Fungus Stain SHAQ/Calcofluor preparation: no fungus observed. Fungus Stain Performing Lab: see note LC - [facility] Aerobic Culture (Not yet rev iewed by provider) Interpretation: Performing Lab: Notes/Report: [facility] , Aerobic Culture See Below For Report Aerobic Culture Organism: Gram negative rivas : O:CRAB Isolated O:GNR Isolated Organism: 1.1 Antibiotic Interpretation [facility] Status Aerobic Culture *ABNORMAL* Aerobic Culture Organism: Gram negative rivas : O:CRAB Isolated O:GNR Isolated Organism: 1.1 Antibiotic Interpretation [facility] Status Aerobic Culture Moderate growth Aerobic Culture Organism: Gram negative rivas : O:CRAB Isolated O:GNR Isolated Organism: 1.1 Antibiotic Interpretation [facility] Status Aerobic Culture Gram negative rivas Aerobic Culture Organism: Gram negative rivas : O:CRAB Isolated O:GNR Isolated Organism: 1.1 Antibiotic Interpretation [facility] Status Aerobic Culture Organism: 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) : Aerobic Culture Organism: Gram negative rivas : O:CRAB Isolated O:GNR Isolated Organism: 1.1 Antibiotic Interpretation [facility] Status Aerobic Culture *ABNORMAL* Aerobic Culture Organism: Gram negative rivas : O:CRAB Isolated O:GNR Isolated Organism: 1.1 Antibiotic Interpretation [facility] Status Aerobic Culture Carbapenem-resistant Aerobic Culture Organism: Gram negative rivas : O:CRAB Isolated O:GNR Isolated Organism: 1.1 Antibiotic Interpretation [facility] Status Aerobic Culture Multi-Drug Resistant Organism Aerobic Culture Organism: Gram negative rivas : O:CRAB Isolated O:GNR Isolated Organism: 1.1 Antibiotic Interpretation [facility] Status Aerobic Culture Moderate growth Aerobic Culture Organism: Gram negative rivas : O:CRAB Isolated O:GNR Isolated Organism: 1.1 Antibiotic Interpretation [facility] Status Aerobic Culture Acinetobacter todd newton (FIRE CLAIMS ADJUSTER) Aerobic Culture Organism: Gram negative rivas : O:CRAB Isolated O:GNR Isolated Organism: 1.1 Antibiotic Interpretation [facility] Status Aerobic Culture See Below For Report Aerobic Culture Organism: Gram negative rivas : O:CRAB Isolated O:GNR Isolated Organism: 1.1 Antibiotic Interpretation [facility] Status Aerobic Culture See Below For Report Aerobic Culture Organism: Gram negative rivas : O:CRAB Isolated O:GNR Isolated Organism: 1.1 Antibiotic Interpretation [facility] Status Aerobic Culture Performed at: [facility] Aerobic Culture Organism: Gram negative rivas : O:CRAB Isolated O:GNR Isolated Organism: 1.1 Antibiotic Interpretation [facility] Status Aerobic Culture [address], [place] [id number] Aerobic Culture Organism: Gram negative rivas : O:CRAB Isolated O:GNR Isolated Organism: 1.1 Antibiotic Interpretation [facility] Status Aerobic Culture Casting Inspector: Nancy Everett PhD, Phone: [phone] Aerobic Culture Organism: Gram negative rivas : O:CRAB Isolated O:GNR Isolated Organism: 1.1 Antibiotic Interpretation [facility] Status Aerobic Culture See Below For Report Aerobic Culture Organism: Gram negative rivas : O:CRAB Isolated O:GNR Isolated Organism: 1.1 Antibiotic Interpretation [facility] Status Aerobic Culture Ampicillin/Sulbactam S F Aerobic Culture Organism: Gram negative rivas : O:CRAB Isolated O:GNR Isolated Organism: 1.1 Antibiotic Interpretation [facility] Status Aerobic Culture Cefepime I F Aerobic Culture Organism: Gram negative rivas : O:CRAB Isolated O:GNR Isolated Organism: 1.1 Antibiotic Interpretation [facility] Status Aerobic Culture Cefotaxime R F Aerobic Culture Organism: Gram negative rivas : O:CRAB Isolated O:GNR Isolated Organism: 1.1 Antibiotic Interpretation [facility] Status Aerobic Culture Ceftazidime I F Aerobic Culture Organism: Gram negative rivas : O:CRAB Isolated O:GNR Isolated Organism: 1.1 Antibiotic Interpretation [facility] Status Aerobic Culture Ceftriaxone I F Aerobic Culture Organism: Gram negative rivas : O:CRAB Isolated O:GNR Isolated Organism: 1.1 Antibiotic Interpretation [facility] Status Aerobic Culture Ciprofloxacin R F Aerobic Culture Organism: Gram negative rivas : O:CRAB Isolated O:GNR Isolated Organism: 1.1 Antibiotic Interpretation [facility] Status Aerobic Culture Gentamicin S F Aerobic Culture Organism: Gram negative rivas : O:CRAB Isolated O:GNR Isolated Organism: 1.1 Antibiotic Interpretation [facility] Status Aerobic Culture Imipenem R F Aerobic Culture Organism: Gram negative rivas : O:CRAB Isolated O:GNR Isolated Organism: 1.1 Antibiotic Interpretation [facility] Status Aerobic Culture Meropenem R F Aerobic Culture Organism: Gram negative rivas : O:CRAB Isolated O:GNR Isolated Organism: 1.1 Antibiotic Interpretation [facility] Status Aerobic Culture Piperacillin R F Aerobic Culture Organism: Gram negative rivas : O:CRAB Isolated O:GNR Isolated Organism: 1.1 Antibiotic Interpretation [facility] Status Aerobic Culture Tetracycline R F Aerobic Culture Organism: Gram negative rivas : O:CRAB Isolated O:GNR Isolated Organism: 1.1 Antibiotic Interpretation [facility] Status Aerobic Culture Tobramycin S F Aerobic Culture Organism: Gram negative rivas : O:CRAB Isolated O:GNR Isolated Organism: 1.1 Antibiotic Interpretation [facility] Status Aerobic Culture Trimethoprim/Sulfame tho xazole R F Aerobic Culture Organism: Gram negative rivas : O:CRAB Isolated O:GNR Isolated Organism: 1.1 Antibiotic Interpretation [facility] Status Performing Lab: see note LC - [facility] SEE REPORT - Car Wrecker Id information not found for OBX-specific bright cutter legend Fungus (Mycology) Culture (N ot yet [...] (Mycology) Culture Fungus (Mycology) Culture Performed at: [facility] Fungus (Mycology) Culture Fungus (Mycology) Culture [address], [place] [id number] Fungus (Mycology) Culture Fungus (Mycology) Culture Casting Inspector: Lalo Everett PhD, Phone: [phone] Fungus (Mycology) Culture Performing Lab: see note LC - [facility] SEE REPORT - Car Wrecker Id information not found for OBX-specific bright cutter legend Aerobic Culture (Not yet rev iewed by provider) Interpretation: Performing Lab: Notes/Report: [facility] , Aerobic Culture See Below For Report Aerobic Culture Organism: Gram negative rivas : O:CRAB Isolated O:GNR Isolated Organism: 2.1 Antibiotic Interpretation [facility] Status Ampicillin/Sulbactam Ampicillin/Sulbactam S F Cefepime Cefepime I F Cefotaxime Cefotaxime R F Ceftazidime Ceftazidime I F Ceftriaxone Ceftriaxone I F Ciprofloxacin Ciprofloxacin R F Gentamicin Gentamicin S F Imipenem Imipenem R F Meropenem Meropenem R F Piperacillin Piperacillin R F Tetracycline Tetracycline R F Tobramycin Tobramycin S F Trimethoprim/Sulfametho xazole Trimethoprim/Sulfametho xazole R F Aerobic Culture *ABNORMAL* Aerobic Culture Organism: Gram negative rivas : O:CRAB Isolated O:GNR Isolated Organism: 2.1 Antibiotic Interpretation [facility] Status Ampicillin/Sulbactam Ampicillin/Sulbactam S F Cefepime Cefepime I F Cefotaxime Cefotaxime R F Ceftazidime Ceftazidime I F Ceftriaxone Ceftriaxone I F Ciprofloxacin Ciprofloxacin R F Gentamicin Gentamicin S F Imipenem Imipenem R F Meropenem Meropenem R F Piperacillin Piperacillin R F Tetracycline Tetracycline R F Tobramycin Tobramycin S F Trimethoprim/Sulfametho xazole Trimethoprim/Sulfametho xazole R F Aerobic Culture Moderate growth Aerobic Culture Organism: Gram negative rivas : O:CRAB Isolated O:GNR Isolated Organism: 2.1 Antibiotic Interpretation [facility] Status Ampicillin/Sulbactam Ampicillin/Sulbactam S F Cefepime Cefepime I F Cefotaxime Cefotaxime R F Ceftazidime Ceftazidime I F Ceftriaxone Ceftriaxone I F Ciprofloxacin Ciprofloxacin R F Gentamicin Gentamicin S F Imipenem Imipenem R F Meropenem Meropenem R F Piperacillin Piperacillin R F Tetracycline Tetracycline R F Tobramycin Tobramycin S F Trimethoprim/Sulfametho xazole Trimethoprim/Sulfametho xazole R F Aerobic Culture Gram negative rivas Aerobic Culture Organism: Gram negative rivas : O:CRAB Isolated O:GNR Isolated Organism: 2.1 Antibiotic Interpretation [facility] Status Ampicillin/Sulbactam Ampicillin/Sulbactam S F Cefepime Cefepime I F Cefotaxime Cefotaxime R F Ceftazidime Ceftazidime I F Ceftriaxone Ceftriaxone I F Ciprofloxacin Ciprofloxacin R F Gentamicin Gentamicin S F Imipenem Imipenem R F Meropenem Meropenem R F Piperacillin Piperacillin R F Tetracycline Tetracycline R F Tobramycin Tobramycin S F Trimethoprim/Sulfametho xazole Trimethoprim/Sulfametho xazole R F Aerobic Culture Organism: 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) : Aerobic Culture Organism: Gram negative rivas : O:CRAB Isolated O:GNR Isolated Organism: 2.1 Antibiotic Interpretation [facility] Status Ampicillin/Sulbactam Ampicillin/Sulbactam S F Cefepime Cefepime I F Cefotaxime Cefotaxime R F Ceftazidime Ceftazidime I F Ceftriaxone Ceftriaxone I F Ciprofloxacin Ciprofloxacin R F Gentamicin Gentamicin S F Imipenem Imipenem R F Meropenem Meropenem R F Piperacillin Piperacillin R F Tetracycline Tetracycline R F Tobramycin Tobramycin S F Trimethoprim/Sulfametho xazole Trimethoprim/Sulfametho xazole R F Aerobic Culture *ABNORMAL* Aerobic Culture Organism: Gram negative rivas : O:CRAB Isolated O:GNR Isolated Organism: 2.1 Antibiotic Interpretation [facility] Status Ampicillin/Sulbactam Ampicillin/Sulbactam S F Cefepime Cefepime I F Cefotaxime Cefotaxime R F Ceftazidime Ceftazidime I F Ceftriaxone Ceftriaxone I F Ciprofloxacin Ciprofloxacin R F Gentamicin Gentamicin S F Imipenem Imipenem R F Meropenem Meropenem R F Piperacillin Piperacillin R F Tetracycline Tetracycline R F Tobramycin Tobramycin S F Trimethoprim/Sulfametho xazole Trimethoprim/Sulfametho xazole R F Aerobic Culture Carbapenem-resistant Aerobic Culture Organism: Gram negative rivas : O:CRAB Isolated O:GNR Isolated Organism: 2.1 Antibiotic Interpretation [facility] Status Ampicillin/Sulbactam Ampicillin/Sulbactam S F Cefepime Cefepime I F Cefotaxime Cefotaxime R F Ceftazidime Ceftazidime I F Ceftriaxone Ceftriaxone I F Ciprofloxacin Ciprofloxacin R F Gentamicin Gentamicin S F Imipenem Imipenem R F Meropenem Meropenem R F Piperacillin Piperacillin R F Tetracycline Tetracycline R F Tobramycin Tobramycin S F Trimethoprim/Sulfametho xazole Trimethoprim/Sulfametho xazole R F Aerobic Culture Multi-Drug Resistant Organism Aerobic Culture Organism: Gram negative rivas : O:CRAB Isolated O:GNR Isolated Organism: 2.1 Antibiotic Interpretation [facility] Status Ampicillin/Sulbactam Ampicillin/Sulbactam S F Cefepime Cefepime I F Cefotaxime Cefotaxime R F Ceftazidime Ceftazidime I F Ceftriaxone Ceftriaxone I F Ciprofloxacin Ciprofloxacin R F Gentamicin Gentamicin S F Imipenem Imipenem R F Meropenem Meropenem R F Piperacillin Piperacillin R F Tetracycline Tetracycline R F Tobramycin Tobramycin S F Trimethoprim/Sulfametho xazole Trimethoprim/Sulfametho xazole R F Aerobic Culture Moderate growth Aerobic Culture Organism: Gram negative rivas : O:CRAB Isolated O:GNR Isolated Organism: 2.1 Antibiotic Interpretation [facility] Status Ampicillin/Sulbactam Ampicillin/Sulbactam S F Cefepime Cefepime I F Cefotaxime Cefotaxime R F Ceftazidime Ceftazidime I F Ceftriaxone Ceftriaxone I F Ciprofloxacin Ciprofloxacin R F Gentamicin Gentamicin S F Imipenem Imipenem R F Meropenem Meropenem R F Piperacillin Piperacillin R F Tetracycline Tetracycline R F Tobramycin Tobramycin S F Trimethoprim/Sulfametho xazole Trimethoprim/Sulfametho xazole R F Aerobic Culture Acinetobacter todd newton (FIRE CLAIMS ADJUSTER) Aerobic Culture Organism: Gram negative rivas : O:CRAB Isolated O:GNR Isolated Organism: 2.1 Antibiotic Interpretation [facility] Status Ampicillin/Sulbactam Ampicillin/Sulbactam S F Cefepime Cefepime I F Cefotaxime Cefotaxime R F Ceftazidime Ceftazidime I F Ceftriaxone Ceftriaxone I F Ciprofloxacin Ciprofloxacin R F Gentamicin Gentamicin S F Imipenem Imipenem R F Meropenem Meropenem R F Piperacillin Piperacillin R F Tetracycline Tetracycline R F Tobramycin Tobramycin S F Trimethoprim/Sulfametho xazole Trimethoprim/Sulfametho xazole R F Aerobic Culture See Below For Report Aerobic Culture Organism: Gram negative rivas : O:CRAB Isolated O:GNR Isolated Organism: 2.1 Antibiotic Interpretation [facility] Status Ampicillin/Sulbactam Ampicillin/Sulbactam S F Cefepime Cefepime I F Cefotaxime Cefotaxime R F Ceftazidime Ceftazidime I F Ceftriaxone Ceftriaxone I F Ciprofloxacin Ciprofloxacin R F Gentamicin Gentamicin S F Imipenem Imipenem R F Meropenem Meropenem R F Piperacillin Piperacillin R F Tetracycline Tetracycline R F Tobramycin Tobramycin S F Trimethoprim/Sulfametho xazole Trimethoprim/Sulfametho xazole R F Aerobic Culture See Below For Report Aerobic Culture Organism: Gram negative rivas : O:CRAB Isolated O:GNR Isolated Organism: 2.1 Antibiotic Interpretation [facility] Status Ampicillin/Sulbactam Ampicillin/Sulbactam S F Cefepime Cefepime I F Cefotaxime Cefotaxime R F Ceftazidime Ceftazidime I F Ceftriaxone Ceftriaxone I F Ciprofloxacin Ciprofloxacin R F Gentamicin Gentamicin S F Imipenem Imipenem R F Meropenem Meropenem R F Piperacillin Piperacillin R F Tetracycline Tetracycline R F Tobramycin Tobramycin S F Trimethoprim/Sulfametho xazole Trimethoprim/Sulfametho xazole R F Aerobic Culture Performed at: [facility] Aerobic Culture Organism: Gram negative rivas : O:CRAB Isolated O:GNR Isolated Organism: 2.1 Antibiotic Interpretation [facility] Status Ampicillin/Sulbactam Ampicillin/Sulbactam S F Cefepime Cefepime I F Cefotaxime Cefotaxime R F Ceftazidime Ceftazidime I F Ceftriaxone Ceftriaxone I F Ciprofloxacin Ciprofloxacin R F Gentamicin Gentamicin S F Imipenem Imipenem R F Meropenem Meropenem R F Piperacillin Piperacillin R F Tetracycline Tetracycline R F Tobramycin Tobramycin S F Trimethoprim/Sulfametho xazole Trimethoprim/Sulfametho xazole R F Aerobic Culture [address], [place] [id number] Aerobic Culture Organism: Gram negative rivas : O:CRAB Isolated O:GNR Isolated Organism: 2.1 Antibiotic Interpretation [facility] Status Ampicillin/Sulbactam Ampicillin/Sulbactam S F Cefepime Cefepime I F Cefotaxime Cefotaxime R F Ceftazidime Ceftazidime I F Ceftriaxone Ceftriaxone I F Ciprofloxacin Ciprofloxacin R F Gentamicin Gentamicin S F Imipenem Imipenem R F Meropenem Meropenem R F Piperacillin Piperacillin R F Tetracycline Tetracycline R F Tobramycin Tobramycin S F Trimethoprim/Sulfametho xazole Trimethoprim/Sulfametho xazole R F Aerobic Culture Casting Inspector: Nancy Everett PhD, Phone: [phone] Aerobic Culture Organism: Gram negative rivas : O:CRAB Isolated O:GNR Isolated Organism: 2.1 Antibiotic Interpretation [facility] Status Ampicillin/Sulbactam Ampicillin/Sulbactam S F Cefepime Cefepime I F Cefotaxime Cefotaxime R F Ceftazidime Ceftazidime I F Ceftriaxone Ceftriaxone I F Ciprofloxacin Ciprofloxacin R F Gentamicin Gentamicin S F Imipenem Imipenem R F Meropenem Meropenem R F Piperacillin Piperacillin R F Tetracycline Tetracycline R F Tobramycin Tobramycin S F Trimethoprim/Sulfametho xazole Trimethoprim/Sulfametho xazole R F Aerobic Culture See Below For Report Aerobic Culture Organism: Gram negative rivas : O:CRAB Isolated O:GNR Isolated Organism: 2.1 Antibiotic Interpretation [facility] Status Ampicillin/Sulbactam Ampicillin/Sulbactam S F Cefepime Cefepime I F Cefotaxime Cefotaxime R F Ceftazidime Ceftazidime I F Ceftriaxone Ceftriaxone I F Ciprofloxacin Ciprofloxacin R F Gentamicin Gentamicin S F Imipenem Imipenem R F Meropenem Meropenem R F Piperacillin Piperacillin R F Tetracycline Tetracycline R F Tobramycin Tobramycin S F Trimethoprim/Sulfametho xazole Trimethoprim/Sulfametho xazole R F Aerobic Culture See Below For Report Aerobic Culture Organism: Gram negative rivas : O:CRAB Isolated O:GNR Isolated Organism: 2.1 Antibiotic Interpretation [facility] Status Ampicillin/Sulbactam Ampicillin/Sulbactam S F Cefepime Cefepime I F Cefotaxime Cefotaxime R F Ceftazidime Ceftazidime I F Ceftriaxone Ceftriaxone I F Ciprofloxacin Ciprofloxacin R F Gentamicin Gentamicin S F Imipenem Imipenem R F Meropenem Meropenem R F Piperacillin Piperacillin R F Tetracycline Tetracycline R F Tobramycin Tobramycin S F Trimethoprim/Sulfametho xazole Trimethoprim/Sulfametho xazole R F Aerobic Culture See Below For Report Aerobic Culture Organism: Gram negative rivas : O:CRAB Isolated O:GNR Isolated Organism: 2.1 Antibiotic Interpretation [facility] Status Ampicillin/Sulbactam Ampicillin/Sulbactam S F Cefepime Cefepime I F Cefotaxime Cefotaxime R F Ceftazidime Ceftazidime I F Ceftriaxone Ceftriaxone I F Ciprofloxacin Ciprofloxacin R F Gentamicin Gentamicin S F Imipenem Imipenem R F Meropenem Meropenem R F Piperacillin Piperacillin R F Tetracycline Tetracycline R F Tobramycin Tobramycin S F Trimethoprim/Sulfametho xazole Trimethoprim/Sulfametho xazole R F Aerobic Culture See Below For Report Aerobic Culture Organism: Gram negative rivas : O:CRAB Isolated O:GNR Isolated Organism: 2.1 Antibiotic Interpretation [facility] Status Ampicillin/Sulbactam Ampicillin/Sulbactam S F Cefepime Cefepime I F Cefotaxime Cefotaxime R F Ceftazidime Ceftazidime I F Ceftriaxone Ceftriaxone I F Ciprofloxacin Ciprofloxacin R F Gentamicin Gentamicin S F Imipenem Imipenem R F Meropenem Meropenem R F Piperacillin Piperacillin R F Tetracycline Tetracycline R F Tobramycin Tobramycin S F Trimethoprim/Sulfametho xazole Trimethoprim/Sulfametho xazole R F Aerobic Culture See Below For Report Aerobic Culture Organism: Gram negative rivas : O:CRAB Isolated O:GNR Isolated Organism: 2.1 Antibiotic Interpretation [facility] Status Ampicillin/Sulbactam Ampicillin/Sulbactam S F Cefepime Cefepime I F Cefotaxime Cefotaxime R F Ceftazidime Ceftazidime I F Ceftriaxone Ceftriaxone I F Ciprofloxacin Ciprofloxacin R F Gentamicin Gentamicin S F Imipenem Imipenem R F Meropenem Meropenem R F Piperacillin Piperacillin R F Tetracycline Tetracycline R F Tobramycin Tobramycin S F Trimethoprim/Sulfametho xazole Trimethoprim/Sulfametho xazole R F Aerobic Culture See Below For Report Aerobic Culture Organism: Gram negative rivas : O:CRAB Isolated O:GNR Isolated Organism: 2.1 Antibiotic Interpretation [facility] Status Ampicillin/Sulbactam Ampicillin/Sulbactam S F Cefepime Cefepime I F Cefotaxime Cefotaxime R F Ceftazidime Ceftazidime I F Ceftriaxone Ceftriaxone I F Ciprofloxacin Ciprofloxacin R F Gentamicin Gentamicin S F Imipenem Imipenem R F Meropenem Meropenem R F Piperacillin Piperacillin R F Tetracycline Tetracycline R F Tobramycin Tobramycin S F Trimethoprim/Sulfametho xazole Trimethoprim/Sulfametho xazole R F Aerobic Culture See Below For Report Aerobic Culture Organism: Gram negative rivas : O:CRAB Isolated O:GNR Isolated Organism: 2.1 Antibiotic Interpretation [facility] Status Ampicillin/Sulbactam Ampicillin/Sulbactam S F Cefepime Cefepime I F Cefotaxime Cefotaxime R F Ceftazidime Ceftazidime I F Ceftriaxone Ceftriaxone I F Ciprofloxacin Ciprofloxacin R F Gentamicin Gentamicin S F Imipenem Imipenem R F Meropenem Meropenem R F Piperacillin Piperacillin R F Tetracycline Tetracycline R F Tobramycin Tobramycin S F Trimethoprim/Sulfametho xazole Trimethoprim/Sulfametho xazole R F Aerobic Culture See Below For Report Aerobic Culture Organism: Gram negative rivas : O:CRAB Isolated O:GNR Isolated Organism: 2.1 Antibiotic Interpretation [facility] Status Ampicillin/Sulbactam Ampicillin/Sulbactam S F Cefepime Cefepime I F Cefotaxime Cefotaxime R F Ceftazidime Ceftazidime I F Ceftriaxone Ceftriaxone I F Ciprofloxacin Ciprofloxacin R F Gentamicin Gentamicin S F Imipenem Imipenem R F Meropenem Meropenem R F Piperacillin Piperacillin R F Tetracycline Tetracycline R F Tobramycin Tobramycin S F Trimethoprim/Sulfametho xazole Trimethoprim/Sulfametho xazole R F Aerobic Culture See Below For Report Aerobic Culture Organism: Gram negative rivas : O:CRAB Isolated O:GNR Isolated Organism: 2.1 Antibiotic Interpretation [facility] Status Ampicillin/Sulbactam Ampicillin/Sulbactam S F Cefepime Cefepime I F Cefotaxime Cefotaxime R F Ceftazidime Ceftazidime I F Ceftriaxone Ceftriaxone I F Ciprofloxacin Ciprofloxacin R F Gentamicin Gentamicin S F Imipenem Imipenem R F Meropenem Meropenem R F Piperacillin Piperacillin R F Tetracycline Tetracycline R F Tobramycin Tobramycin S F Trimethoprim/Sulfametho xazole Trimethoprim/Sulfametho xazole R F Aerobic Culture See Below For Report Aerobic Culture Organism: Gram negative rivas : O:CRAB Isolated O:GNR Isolated Organism: 2.1 Antibiotic Interpretation [facility] Status Ampicillin/Sulbactam Ampicillin/Sulbactam S F Cefepime Cefepime I F Cefotaxime Cefotaxime R F Ceftazidime Ceftazidime I F Ceftriaxone Ceftriaxone I F Ciprofloxacin Ciprofloxacin R F Gentamicin Gentamicin S F Imipenem Imipenem R F Meropenem Meropenem R F Piperacillin Piperacillin R F Tetracycline Tetracycline R F Tobramycin Tobramycin S F Trimethoprim/Sulfametho xazole Trimethoprim/Sulfametho xazole R F Aerobic Culture See Below For Report Aerobic Culture Organism: Gram negative rivas : O:CRAB Isolated O:GNR Isolated Organism: 2.1 Antibiotic Interpretation [facility] Status Ampicillin/Sulbactam Ampicillin/Sulbactam S F Cefepime Cefepime I F Cefotaxime Cefotaxime R F Ceftazidime Ceftazidime I F Ceftriaxone Ceftriaxone I F Ciprofloxacin Ciprofloxacin R F Gentamicin Gentamicin S F Imipenem Imipenem R F Meropenem Meropenem R F Piperacillin Piperacillin R F Tetracycline Tetracycline R F Tobramycin Tobramycin S F Trimethoprim/Sulfametho xazole Trimethoprim/Sulfametho xazole R F Aerobic Culture See Below For Report Aerobic Culture Organism: Gram negative rivas : O:CRAB Isolated O:GNR Isolated Organism: 2.1 Antibiotic Interpretation [facility] Status Ampicillin/Sulbactam Ampicillin/Sulbactam S F Cefepime Cefepime I F Cefotaxime Cefotaxime R F Ceftazidime Ceftazidime I F Ceftriaxone Ceftriaxone I F Ciprofloxacin Ciprofloxacin R F Gentamicin Gentamicin S F Imipenem Imipenem R F Meropenem Meropenem R F Piperacillin Piperacillin R F Tetracycline Tetracycline R F Tobramycin Tobramycin S F Trimethoprim/Sulfametho xazole Trimethoprim/Sulfametho xazole R F Aerobic Culture See Below For Report Aerobic Culture Organism: Gram negative rivas : O:CRAB Isolated O:GNR Isolated Organism: 2.1 Antibiotic Interpretation [facility] Status Ampicillin/Sulbactam Ampicillin/Sulbactam S F Cefepime Cefepime I F Cefotaxime Cefotaxime R F Ceftazidime Ceftazidime I F Ceftriaxone Ceftriaxone I F Ciprofloxacin Ciprofloxacin R F Gentamicin Gentamicin S F Imipenem Imipenem R F Meropenem Meropenem R F Piperacillin Piperacillin R F Tetracycline Tetracycline R F Tobramycin Tobramycin S F Trimethoprim/Sulfametho xazole Trimethoprim/Sulfametho xazole R F Aerobic Culture See Below For Report Aerobic Culture Organism: Gram negative rivas : O:CRAB Isolated O:GNR Isolated Organism: 2.1 Antibiotic Interpretation [facility] Status Ampicillin/Sulbactam Ampicillin/Sulbactam S F Cefepime Cefepime I F Cefotaxime Cefotaxime R F Ceftazidime Ceftazidime I F Ceftriaxone Ceftriaxone I F Ciprofloxacin Ciprofloxacin R F Gentamicin Gentamicin S F Imipenem Imipenem R F Meropenem Meropenem R F Piperacillin Piperacillin R F Tetracycline Tetracycline R F Tobramycin Tobramycin S F Trimethoprim/Sulfametho xazole Trimethoprim/Sulfametho xazole R F Performing Lab: see note LC - [facility] SEE REPORT - Car Wrecker Id information not found for OBX-specific bright cutter legend Anaerobic Culture (Not yet r eviewed by provider) Interpretation: Performing Lab: Notes/Report: [facility] , Anaerobic Culture See Below For Report Anaerobic Culture Anaerobic Culture No anaerobic growth in 72 hours. Anaerobic Culture Performing Lab: see note LC - [facility] Fungus (Mycology) Culture [...] (Mycology) Culture Fungus (Mycology) Culture Performed at: [facility] Fungus (Mycology) Culture Fungus (Mycology) Culture [address], [place] [id number] Fungus (Mycology) Culture Fungus (Mycology) Culture Casting Inspector: Lalo Everett PhD, Phone: [phone] Fungus (Mycology) Culture Performing Lab: see note - [facility] SEE REPORT - Car Wrecker Id information not found for OBX-specific bright cutter legend Acid Fast Culture (Not yet r eviewed by provider) Interpretation: Performing Lab: Notes/Report: Comment right ankle tissue [facility] , Acid Fast Culture See Below For Report Acid Fast Culture Specimen has been received and testing has been initiated. Acid Fast Culture Negative Acid Fast Culture Specimen has been received and testing has been initiated. Acid Fast Culture No acid fast bacilli isolated after 6 weeks. Acid Fast Culture Specimen has been received and testing has been initiated. Acid Fast Culture Performed at: [facility] Acid Fast Culture Specimen has been received and testing has been initiated. Acid Fast Culture [address], [place] [id number] Acid Fast Culture Specimen has been received and testing has been initiated. Acid Fast Culture Casting Inspector: Nancy Everett PhD, Phone: [phone] Acid Fast Culture Specimen has been received and testing has been initiated. Performing Lab: see note LC - [facility] SEE REPORT - Car Wrecker Id information not found for OBX-specific bright cutter legend Acid Fast Smear (Not yet rev iewed by provider) Interpretation: Performing Lab: Notes/Report: Comment right ankle tissue [facility] , Acid Fast Smear See Below For Report Acid Fast Smear Negative Performing Lab: see note LC - [facility] AFB Specimen Processing (Not yet reviewed by provider) Interpretation: Performing Lab: Notes/Report: Comment right ankle tissue [facility] , AFB Specimen Processing See Below For Report AFB Specimen Processing AFB Specimen Processing Tissue Grinding AFB Specimen Processing Performing Lab: see note LC - [facility] Gram Stain Result (Not yet r eviewed by provider) Interpretation: Performing Lab: Notes/Report: [facility] , Gram Stain Result See Below For Report Gram Stain Result Gram Stain Result No white blood cells seen. Gram Stain Result Gram Stain Result Gram Stain Result Gram Stain Result Rare gram positive cocci Gram Stain Result Gram Stain Result Performed at: [facility] Gram Stain Result Gram Stain Result [address], [place] [id number] Gram Stain Result Gram Stain Result Casting Inspector: Nancy Everett PhD, Phone: [phone] Gram Stain Result Performing Lab: see note - [facility] SEE REPORT - Car Wrecker Id information not found for OBX-specific bright cutter legend AFB Specimen Processing (Not yet reviewed by provider) Interpretation: Performing Lab: Notes/Report: [facility] , AFB Specimen Processing See Below For Report AFB Specimen Processing AFB Specimen Processing Tissue Grinding AFB Specimen Processing Performing Lab: see note LC - [facility] XR foot RT min 3V (Not yet r eviewed by provider) Interpretation: Performing Lab: Notes/Report: Source Facility: [place] [address] XRay Report Signed Patient: TREV MCKEON MR#: [id number] : 1980 Acct:[id number] Age/Sex: 43 / M ADM Date: 04/25/24 Loc: [place] 204-[address]: Beth Root D.O. Ordering Physician: Natanael Feldman D.P.M. Date of Service: 04/26/24 Procedure(s): XR foot RT min 3V Accession Number(s): [id number] cc: Natanael Feldman D.P.M.; NATALIE HERNANDEZ [place] [phone] Patient Name: TREV MCKEON MRN: [id number] date: 1980 Sex: M Assigned Patient Location: [place] Current Patient Location: [place] Accession/Order Number: [id number] Exam Date: 04/26/2024 10:30 Report Date: 04/26/2024 [...] Signed By: 04/26/24 1158 DD/ 1155 TD/TT: Vehicle And Equipment Cleaner: [place] [address] XRay Report Signed Patient: CTILALY MCKEON MR#: [id number] : 1980 Acct:[id number] Age/Sex: 43 / M ADM Date: 04/25/24 Loc: [place] 204-[address]: Ivette Root D.O. Ordering Physician: Natanael Feldman D.P.M. Date of Service: 04/26/24 Procedure(s): XR kristen t RT min 3V Accession Number(s): [id number] cc: Natanael Feldman D.P.M.; NATALIE HERNANDEZ [place] [phone] Patient Name: TREV MCKEON MRN: [id number] date: 1980 Sex: M Assigned Patient Location: [place] Current Patient Location: [place] Accession/Order Numb er: [id number] Exam Date: 10:30 Report Date: 04/26/2024 11:55 [...] Signed By: 04/26/24 1158 DD/ 1155 TD/TT: Vehicle And Equipment Cleaner: Tissue Culture (Not yet revi ewed by provider) Interpretation: Performing Lab: Notes/Report: [facility] , Tissue Culture See Below For Report Tissue Culture WILL FOLLOW Tissue Culture Tissue Culture WILL FOLLOW Tissue Culture Specimen has been received and testing has been initiated. Tissue Culture WILL FOLLOW Performing Lab: see note - [facility] Anaerobic Cult, Extended Inc ub (Not yet reviewed by provider) Interpretation: Performing Lab: Notes/Report: [facility] , Anaerobic Cult, Extended Incub See Below For Report Anaerobic Cult, Extended Incub O:PREDIS Isolated Anaerobic Cult, Extended Incub Specimen has been received and testing has been initiated. Anaerobic Cult, Extended Incub O:PREDIS Isolated Anaerobic Cult, Extended Incub Organism: Prevotella disiens : Anaerobic Cult, Extended Incub O:PREDIS Isolated Anaerobic Cult, Extended Incub *ABNORMAL* Anaerobic Cult, Extended Incub O:PREDIS Isolated Anaerobic Cult, Extended Incub Scant growth Anaerobic Cult, Extended Incub O:PREDIS Isolated Anaerobic Cult, Extended Incub Studies at [facility] have confirmed the Anaerobic Cult, Extended Incub O:PREDIS Isolated Anaerobic Cult, Extended Incub observations of others who have demonstrated that Anaerobic Cult, Extended Incub O:PREDIS Isolated Anaerobic Cult, Extended Incub Prevotella, Porphyromonas and Bacteroides species Anaerobic Cult, Extended Incub O:PREDIS Isolated Anaerobic Cult, Extended Incub other than Bacteroides fragilis group are routinely Anaerobic Cult, Extended Incub O:PREDIS Isolated Anaerobic Cult, Extended Incub susceptible to Cefoxitin, Chloramphenicol, and Anaerobic Cult, Extended Incub O:PREDIS Isolated Anaerobic Cult, Extended Incub Metronidazole and are usually resistant to Penicillin. Anaerobic Cult, Extended Incub O:PREDIS Isolated Anaerobic Cult, Extended Incub Prevotella disiens Anaerobic Cult, Extended Incub O:PREDIS Isolated Anaerobic Cult, Extended Incub See Below For Report Anaerobic Cult, Extended Incub O:PREDIS Isolated Performing Lab: see note - [facility] Aerobic Culture (Not yet rev iewed by provider) Interpretation: Performing Lab: Notes/Report: [facility] , Aerobic Culture See Below For Report Aerobic Culture WILL FOLLOW Aerobic Culture Aerobic Culture WILL FOLLOW Aerobic Culture Mixed skin maximiliano Aerobic Culture WILL FOLLOW Performing Lab: see note - [facility] Gram Stain Result (Not yet r eviewed by provider) Interpretation: Performing Lab: Notes/Report: [facility] , Gram Stain Result See Below For Report Gram Stain Result Gram Stain Result No white blood cells seen. Gram Stain Result Gram Stain Result Gram Stain Result Gram Stain Result No organisms seen Gram Stain Result Gram Stain Result Performed at: [facility] Gram Stain Result Gram Stain Result [address], [place] [id number] Gram Stain Result Gram Stain Result Casting Inspector: Nancy Everett PhD, Phone: [phone] Gram Stain Result Performing Lab: see note - [facility] SEE REPORT - Car Wrecker Id information not found for OBX-specific bright cutter legend Aerobic Culture (Not yet rev iewed by provider) Interpretation: Performing Lab: Notes/Report: [facility] , Aerobic Culture See Below For Report Aerobic Culture WILL FOLLOW O:GNR Isolated O:PSAV Isolated Organism: 1.2 Antibiotic Interpretation [facility] Status Aerobic Culture Organism: Gram negat brittney rivas : Aerobic Culture WILL FOLLOW O:GNR Isolated O:PSAV Isolated Organism: 1.2 Antibiotic Interpretation [facility] Status Aerobic Culture *ABNORMAL* Aerobic Culture WILL FOLLOW O:GNR Isolated O:PSAV Isolated Organism: 1.2 Antibiotic Interpretation [facility] Status Aerobic Culture Heavy growth Aerobic Culture WILL FOLLOW O:GNR Isolated O:PSAV Isolated Organism: 1.2 Antibiotic Interpretation [facility] Status Aerobic Culture Aerobic Culture WILL FOLLOW O:GNR Isolated O:PSAV Isolated Organism: 1.2 Antibiotic Interpretation [facility] Status Aerobic Culture Mixed skin maximiliano Aerobic Culture WILL FOLLOW O:GNR Isolated O:PSAV Isolated Organism: 1.2 Antibiotic Interpretation [facility] Status Aerobic Culture Heavy growth Aerobic Culture WILL FOLLOW O:GNR Isolated O:PSAV Isolated Organism: 1.2 Antibiotic Interpretation [facility] Status Aerobic Culture Gram negative rivas Aerobic Culture WILL FOLLOW O:GNR Isolated O:PSAV Isolated Organism: 1.2 Antibiotic Interpretation [facility] Status Aerobic Culture Organism: Pseudomona s aeruginosa.. : Aerobic Culture WILL FOLLOW O:GNR Isolated O:PSAV Isolated Organism: 1.2 Antibiotic Interpretation [facility] Status Aerobic Culture *ABNORMAL* Aerobic Culture WILL FOLLOW O:GNR Isolated O:PSAV Isolated Organism: 1.2 Antibiotic Interpretation [facility] Status Aerobic Culture Heavy growth Aerobic Culture WILL FOLLOW O:GNR Isolated O:PSAV Isolated Organism: 1.2 Antibiotic Interpretation [facility] Status Aerobic Culture Aerobic Culture WILL FOLLOW O:GNR Isolated O:PSAV Isolated Organism: 1.2 Antibiotic Interpretation [facility] Status Aerobic Culture Mixed skin maximiliano Aerobic Culture WILL FOLLOW O:GNR Isolated O:PSAV Isolated Organism: 1.2 Antibiotic Interpretation [facility] Status Aerobic Culture Heavy growth Aerobic Culture WILL FOLLOW O:GNR Isolated O:PSAV Isolated Organism: 1.2 Antibiotic Interpretation [facility] Status Aerobic Culture Pseudomonas aeruginosa.. Aerobic Culture WILL FOLLOW O:GNR Isolated O:PSAV Isolated Organism: 1.2 Antibiotic Interpretation [facility] Status Aerobic Culture See Below For Report Aerobic Culture WILL FOLLOW O:GNR Isolated O:PSAV Isolated Organism: 1.2 Antibiotic Interpretation [facility] Status Aerobic Culture See Below For Report Aerobic Culture WILL FOLLOW O:GNR Isolated O:PSAV Isolated Organism: 1.2 Antibiotic Interpretation [facility] Status Aerobic Culture See Below For Report Aerobic Culture WILL FOLLOW O:GNR Isolated O:PSAV Isolated Organism: 1.2 Antibiotic Interpretation [facility] Status Aerobic Culture Amikacin S F Aerobic Culture WILL FOLLOW O:GNR Isolated O:PSAV Isolated Organism: 1.2 Antibiotic Interpretation [facility] Status Aerobic Culture Cefepime S F Aerobic Culture WILL FOLLOW O:GNR Isolated O:PSAV Isolated Organism: 1.2 Antibiotic Interpretation [facility] Status Aerobic Culture Ceftazidime S F Aerobic Culture WILL FOLLOW O:GNR Isolated O:PSAV Isolated Organism: 1.2 Antibiotic Interpretation [facility] Status Aerobic Culture Ciprofloxacin S F Aerobic Culture WILL FOLLOW O:GNR Isolated O:PSAV Isolated Organism: 1.2 Antibiotic Interpretation [facility] Status Aerobic Culture Gentamicin S F Aerobic Culture WILL FOLLOW O:GNR Isolated O:PSAV Isolated Organism: 1.2 Antibiotic Interpretation [facility] Status Aerobic Culture Imipenem S F Aerobic Culture WILL FOLLOW O:GNR Isolated O:PSAV Isolated Organism: 1.2 Antibiotic Interpretation [facility] Status Aerobic Culture Levofloxacin S F Aerobic Culture WILL FOLLOW O:GNR Isolated O:PSAV Isolated Organism: 1.2 Antibiotic Interpretation [facility] Status Aerobic Culture Meropenem S F Aerobic Culture WILL FOLLOW O:GNR Isolated O:PSAV Isolated Organism: 1.2 Antibiotic Interpretation [facility] Status Aerobic Culture Piperacillin S F Aerobic Culture WILL FOLLOW O:GNR Isolated O:PSAV Isolated Organism: 1.2 Antibiotic Interpretation [facility] Status Aerobic Culture Ticarcillin S F Aerobic Culture WILL FOLLOW O:GNR Isolated O:PSAV Isolated Organism: 1.2 Antibiotic Interpretation [facility] Status Aerobic Culture Tobramycin S F Aerobic Culture WILL FOLLOW O:GNR Isolated O:PSAV Isolated Organism: 1.2 Antibiotic Interpretation [facility] Status Performing Lab: see note - [facility] SEE REPORT - Car Wrecker Id information not found for OBX-specific bright cutter legend Gram Stain Result (Not yet r [...] Stain Result Gram Stain Result Performed at: [facility] Gram Stain Result Gram Stain Result [address], [place] [id number] Gram Stain Result Gram Stain Result Casting Inspector: Nancy Everett PhD, Phone: [phone] Gram Stain Result Performing Lab: see note - [facility] SEE REPORT - Car Wrecker Id information not found for OBX-specific bright cutter legend Reason For Referral No Information Problems Problem Type SNOMED Code ICD Code Onset Dates Problem Status W/U Status Risk Notes Problem Foot ulcer due to type 2 diabetes mellitus (0985417699650) Type 2 diabetes mellitus with foot ulcer (E11.621) Active confirmed Problem Chronic ulcer of foot (440968368) 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 layer exposed (L97.422) Active confirmed Problem Hypertension (83637492) Hypertension (I10) Active confirmed Problem Acquired hallux rigidus (0041583) Hallux rigidus of left foot (M20.22) Active confirmed Problem Ulcer of left foot (disorder) (486565803) Chronic ulcer of left foot limited to breakdown of skin (L97.521) Active confirmed Problem Polyneuropathy due to type 2 diabetes mellitus (213618045) Diabetes mellitus with polyneuropathy (E11.42) Active confirmed Problem Foot ulcer due to type 2 diabetes mellitus (5552562388798) Diabetes mellitus with foot ulcer due to multiple causes (E11.621) Active confirmed Problem 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 confirmed Problem Hallux rigidus (6900416) Hallux rigidus (M20.20) Active confirmed Problem Acute osteomyelitis of ankle and/or foot (826536978) Acute osteomyelitis of right ankle or foot (M86.171) Active confirmed Problem Chronic foot ulcer, limited to breakdown of skin, left (L97.521) Active confirmed Problem Foot ulcer, left , with fat layer exposed (L97.522) Active confirmed Problem High cholesterol (16818034) High cholesterol (E78.00) Active confirmed Problem Chronic ulcer of great toe of left foot, limited to breakdown of skin (L97.521) Active confirmed Problem Acute osteomyelitis of ankle and/or foot (357908772) Acute hematogenous osteomyelitis of left foot (M86.072) Active confirmed Problem Non-pressure chronic ulcer of right heel and midfoot with other specified severity (L97.418) Active confirmed Problem Non-pressure chronic ulcer of other part of left foot with other specified severity (L97.528) Active confirmed Problem Ulcer of big toe (disorder) (385622587) Chronic ulcer of great toe of left foot with fat layer exposed (L97.522) Active confirmed Problem Ankle ulcer (853553248) Chronic ulcer of right ankle with fat layer exposed (L97.312) Active confirmed Problem Ankle ulcer (908163018) Ischemic ulcer of right ankle, 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) Active confirmed Problem Chronic ulcer of plantar surface of right midfoot with fat layer exposed (L97.412) Active confirmed Problem Chronic ulcer of left heel (disorder) (9299544855062984 5) Chronic ulcer of left heel limited to breakdown of skin (L97.421) Active confirmed Problem Ischemic ulcer o f left heel with fat layer exposed (L97.422) Active confirmed Encounters Encounter Location Date Provider Diagnosis [facility] [address] [place] [address] 04/26/2024 Natanael Feldman [facility] [address] [place] [address] 04/28/2024 Natanael Feldman Plan Of Treatment Pending Test Test Name Order Date GRAM STAIN 05/31/2024 PROF CHEM 8 (BAS METB) 09/30/2022 AFB Specimen Processing 04/26/2024 AFB Specimen Processing 04/26/2024 AFB Specimen Processing 05/31/2024 Acid Fast Smear 05/31/2024 Acid Fast Smear 04/26/2024 Acid Fast Culture 04/26/2024 Acid Fast Culture 05/31/2024 XR foot RT min 3V 04/26/2024 XR foot RT min 3V 04/26/2024 Fungus Stain 04/26/2024 Fungus Stain 04/26/2024 Fungus Stain 05/31/2024 Fungus (Mycology) Culture 05/31/2024 Fungus (Mycology) Culture 05/31/2024 Fungus (Mycology) Culture 04/26/2024 Gram Stain Result 04/26/2024 Gram Stain Result 04/25/2024 Gram Stain Result 04/26/2024 Aerobic Culture 05/31/2024 Aerobic Culture 05/31/2024 Aerobic Culture 04/25/2024 Aerobic Culture 04/26/2024 Aerobic Culture 04/25/2024 Aerobic Culture 04/26/2024 Anaerobic Culture 04/25/2024 Anaerobic Culture 04/26/2024 Anaerobic Culture 05/31/2024 Anaerobic Cult, Extended Incub Tissue Culture 04/26/2024 Insurance Providers Payer Name Payer Address Payer Phone Subscriber Number Group Number Insured Name Patient Relationship to Insured Coverage Start Date Coverage End Date [employer] [address] [address] [place], [place] [id number] Trev Mckeon Self - patient is the insured
--- OUTSIDE RECORDS SUMMARY | 2024-10-25 12:48 | XMS_ITS | Clinical Summary ---
Author Organization [facility] Address [address] [place] [address] Care Team Providers Care Head Of History Name Role Phone Natalie Ryan MD Primary Care Provider [phone] Blossom Cody COMPUTER TERMINAL OPERATOR Unavailable [phone] Allergies No known active allergies Medications aspirin [...] in the evening. Take with meals. Active Victoza 18 MG/3ML injection Inject 1.8 mg under the skin Daily 10/27/19 24 Active atorvastatin (Lipitor) 40 MG tabletIndications:Pur e hyperglyceridemia Take 1 tablet (40 mg) by mouth Daily 90 tablet 3 02/28/20 24 Active lisinopril 30 MG tabletIndications:Ess ential hypertension Take 1 tablet (30 mg) by mouth Daily 90 tablet 1 04/19/20 24 Active traZODone (Desyrel) 100 MG tabletIndications:Dep ressed mood,Insomnia, unspecified type Take 1 tablet (100 mg) by mouth as needed at bedtime for sleep 30 tablet 1 07/20/19 25 Active dapagliflozin (Farxiga) 10 MG 01/17/20 24 025 Discontinu ed(Discont inued by another clinician) urea (Carmol) 40 % cream APPLY TO THE AFFECTED AREA ON BOTH FEET EVERY DAY DIRECTED 12/01/19 24 025 Discontinu ed(Therapy completed) Active Problems Problem Noted Date Diagnosed Date Amputation of toe, traumatic, left, sequela ([facility]) 11/03/2023 Overview (11/03/2023): Lt forefoot Essential hypertension 06/16/2023 [...] 23 06/17/2023 History of COVID-19 05/13/2020 06/17/19 Hx of diabetic neuropathy 04/13/2018 Encounters Date Type Department Care Team Description 10/19/2024 10:00 AM EDT Office Visit [facility] [address] [place] [phone] Maria Fernanda Olguin NP 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 [address] [place] [phone] Terence Glass MD from Last 3 Months Immunizations Immunization Administration [...] How often do you attend chur or latter day services? More than 4 [...] place to sleep or slept in a fdc (including now)? Patient refused 03/23/2023 Sex and [...] 6.4 oz) 10/19/2024 9:51 AM EDT Height 181.6 cm (5' 11.5 ) 10/29/2023 9:37 AM ED T Body Mass Index 51.08 10/29/2023 9:37 AM EDT Plan of Treatment Upcoming Encounters Date Type Department Care Team (Late st Contact Info) Description 01/31/2025 9:30 AM EDT Office Visit [facility] [address] [place] [phone] Maria Fernanda Olguin NP [address] [place] [address] Health Maintenance Due Date Last Done Comments CT Colonography 1979 Colonoscopy 1979 Colorectal Cancer Screening 1979 FIT-DNA 1979 FIT 1979 FOBT 1979 Sigmoidoscopy 1979 Influenza Vaccine Completed 03/14/2024, , 03/28/2021, Additional history exists Procedures Procedure Name Priority Date/Time Associated Diagnosis Comments HEMOGLOBIN A1C Routine 08/21/2024 10:48 AM EDT DIABETIC RETINOPATHY SCREENING - OU - BOTH EYES Routine 08/15/2024 3:07 PM EDT from Last 3 Months Results * Hemoglobin A1c (08/21/2024 10:48 AM EDT) HEMOGLOBIN A1C 7.9 Blood Venous blood specimen / Unknown us Link Ortega NP LAB BLOOD ORDERABLES Edited Resu lt - Final * (ABNORMAL) Diabetic Retinopathy Screening - OU - Both Eyes (08/15/2024 3:07 PM EDT) Anatomical Region Laterality Modality Head Other Terence Glass MD OPHTH PHOTOGRAPHY Final Result from Last 3 Months Insurance [employer] Care Teams Head Of History Relationship Specialty Start Date End Date Natalie Ryan MD PCP - General Family Medicine 09/15/22 Blossom Cody NP Nurse Practitioner Family Medicine 01/19/24
== END 2024-10-25 12:45 | disposition home or self-care (01) ==
LOC: WC 12:44
PROVIDERS: PCP Family Medicine; Visit Provider Podiatrist Foot & Ankle Surgery
DX: L84 Corns and callosities (principal); E11.65 Type 2 diabetes mellitus with hyperglycemia
CPT/HCPCS: G0463

== ENCOUNTER 2024-11-22 09:46 | Outpatient (OUT) | payer OTHER, SELFPAY ==
--- OUTSIDE RECORDS SUMMARY | 2024-04-26 04:00 | XMS_ITS ---
Author Organization [facility] in [place] Address [address] [place] [address] Care Team Providers Care Yarn Weight And Strength Tester Name Role Phone Natalie Ryan Primary Care Provider Jesus Dai [phone] REASON FOR VISIT wound - RT foot I&D Encounters Encounter Location Date Provider Diagnosis THE [address] [address] 04/26/2024 Jesus Feldman Plan Of Treatment No Information Progress Notes * MIKE Trev BDOB: 0 (44 yo M)Acc No.[id number]:04/26/2024 UNLOCKED PROGRESS NOTE Patient: Trev REDDY Provider: Boris Feldman DPM, MS :1980 A ge:43 Y S ex:Male Date:04/26/2024 Address:[address] [place], [place] [phone] Pcp:Natalie Ryan Check Out:01:07 PM EST * * Electronic signature of Rolando Feldman DPM on 11/22/2024 at 09:49 AM EDT Sign off status: Pending Visit Status: Isiah HK (Check Out) * Provider: Boris Feldman DPM, MS Date: 06/27/2023 Generated for Printi ng/Faxing/eTransmitting on: 0 11/22/2024 09:49 AM EDT
--- OUTSIDE RECORDS SUMMARY | 2024-04-28 04:30 | XMS_ITS ---
Author Organization The [facility] in [place] Address [address] [place] [address] Care Team Providers Care Press Brake Operator Name Role Phone Natalie Ryan Primary Care Provider Jesus Dai [phone] REASON FOR VISIT wound - I&D Encounters Encounter Location Date Provider Diagnosis [facility] [address] [place] [address] 04/28/2024 Jesus Feldman Plan Of Treatment No Information Progress Notes * MIKE Trev BDOB: 0 (44 yo M)Acc No.[id number]:04/28/2024 UNLOCKED PROGRESS NOTE Patient: Trev REDDY Provider: Boris Feldman DPM, MS :1980 A ge:43 Y S ex:Male Date:04/28/2024 Address:[address] [place], [place] [phone] Pcp:Natalie Ryan Check Out:01:10 PM EST * * Electronic signature of Rolando Feldman DPM on 11/22/2024 at 09:50 AM EDT Sign off status: Pending Visit Status: Isiah HK (Check Out) * Provider: Boris Feldman DPM, MS Date: 1 06/29/2023 Generated for [place] ng/Faleonciog/eTransmitting on: 0 11/22/2024 09:50 AM EDT
--- OUTSIDE RECORDS SUMMARY | 2024-11-22 09:49 | XMS_ITS | Encounter Summary ---
Author Organization [facility] Address [address] [place] [address] Care Team Providers Care Cheese Cutter Name Role Phone Natalie Ryan MD Primary Care Provider [phone] Blossom Cody FAMILY SUPPORT COORDINATOR Unavailable [phone] Encounter Details Date Type Department Care Team [...] EDT Office Visit [facility] [address] [place] [address] Maria Fernanda Olguin NP [address] [place] [address] documented as of this encounter Procedures Procedure [...] on filedocumented in this encounter Care Teams Cheese Cutter Relationship Specialty Start Date End Date Natalie Ryan MD PCP - General Family Medicine 09/15/22 Blossom Cody NP Nurse Practitioner Family Medicine 01/19/24 documented as of this encounter
--- OUTSIDE RECORDS SUMMARY | 2024-11-22 09:49 | XMS_ITS | Encounter Summary ---
Author Organization [facility] Address [address] [facility] [place] [address] Care Team Providers Care Transport Operations Inspector Name Role Phone Natalie Ryan MD Primary Care Provider [phone] Blossom Cody FURNISHINGS CONSERVATOR Unavailable [phone] Encounter Details Date Type Department Care Team (Late Contact Info) Description 09/22/2022 Abstract [facility] [address] [place] [address] Natalie Ryan MD Social History Tobacco Use Types Packs/Day Years Used Date Smoking Tobacco: Never Assessed Sex and Gender Information Value Date Recorded Sex Assigned at Not on file Legal Sex Male 6:33 PM EDT Gender Identity Not on file Sexual Orientation Not on file documented as of this encounter Plan of Treatment Upcoming Encounters Date Type Department Care Team ([facility] Contact Info) Description 01/31/2025 9:30 AM EDT Office Visit [facility] [address] [place] [phone] Maria Fernanda Olguin NP [address] [place], [place] [phone] documented as of this encounter Visit Diagnoses Not on filedocumented in this encounter Care Teams Transport Operations Inspector Relationship Specialty Start Date End Date Natalie Ryan MD PCP - General Family Medicine 09/15/22 Blossom Cody NP Nurse Practitioner Family Medicine 01/19/24 documented as of this encounter
--- OUTSIDE RECORDS SUMMARY | 2024-11-22 09:49 | XMS_ITS | Encounter Summary ---
Author Organization [facility] Address [address] [facility] [place] [address] Care Team Providers Care Cell Tuber Machine Name Role Phone Eric Hernandez MD Primary Care Provider [phone] Blossom Cody ROLL GRINDER Unavailable [phone] Encounter Details Date Type Department Care Team ([facility] Contact Info) Description 02/19/2023 Clinisync Result Encounter [...] Upcoming Encounters Date Type Department Care Team ([facility] Contact Info) Description 01/31/2025 9:30 AM EDT Office Visit [facility] [address] [place] [phone] Maria Fernanda Olguin ROLL GRINDER [address] [place] [address] [phone] (work) documented as of this encounter Procedures Procedure Name Priority Date/Time Associated Diagnosis Comments XR FOOT LT MIN 3V 02/19/2023 2:5 5 PM EDT documented in this encounter Results * XR FOOT LT MIN 3V (02/19/2023 2:55 PM EDT) Anatomical Region Laterality Modality Other 02/19/2023 2:55 PM EDT Narrative 02/19/2023 2:55 [place] [address] XRay Report Signed Patient: Trev Mckeon MR#: [id number] : 1980 Acct:[id number] Age/Sex: 42 / M ADM Date: 02/19/23 Loc: Attending Dr: Jesus Feldman D.P.M. Ordering Physician: Jesus Feldman M.D. Date of Service: 02/19/23 Procedure(s): XR foot LT min 3V Accession Number(s): [id number] cc: Jesus Feldman M.D.; ERIC HERNANDEZ [place] [id number] Patient Name: TREV MCKEON MRN: [id number] date: 1980 Sex: M Assigned Patient Location: Current Patient Location: Accession/Order Number: [id number] Exam Date: 02/19/2023 10:00 Report Date: 02/19/2023 [...] Signed By: 02/19/23 1457 DD/ 1455 TD/TT: Retail Field Merchandiser: Procedure Note Radiology, Radiologist, MD - 02/19/2023 [place] [address] XRay Report Signed Patient: Trev Mckeon BMR#: [id number] : 1980Acct:[id number] Age/Sex: 42 / MADM Date: 02/19/23 Loc: Attending Dr: Jesus Feldman D.P.M. Ordering Physician: Jesus Feldman M.D. Date of Service: 02/19/23 Procedure(s): XR foot LT min 3V Accession Number(s): [id number] cc: Jesus Feldman M.D.; ERIC HERNANDEZ [place] [address] Patient Name: TREV MCKEON MRN: [id number] date: 1980 Sex: M Assigned Patient Location: Current Patient Location: Accession/Order Number: [id number] Exam Date: 02/19/2023 10:00 Report Date: 02/19/2023 [...] M.D. Signed By:02/19/23 1457 DD/ 145 TD/TT: Retail Field Merchandiser: us Generic External Data Provider [facility] Final Result documented in this encounter Visit Diagnoses Not on filedocumented in this encounter Care Teams Cell Tuber Machine Relationship Specialty Start Date End Date Eric Hernandez MD PCP - General Family Medicine 09/15/22 Blossom Cody NP Nurse Practitioner Family Medicine 01/19/24 documented as of this encounter
--- OUTSIDE RECORDS SUMMARY | 2024-11-22 09:49 | XMS_ITS | Encounter Summary ---
Author Organization [facility] Address [address] [place] [address] Care Team Providers Care Clinical Research Director Name Role Phone Eric Hernandez MD Primary Care Provider [phone] Blossom Cody SLIP MAKER Unavailable [phone] Encounter Details Date Type Department Care Team ([facility] st Contact Info) Description 04/28/2023 Clinisync Result [...] often do you attend chur ch or shinto services? More than 4 times per year 03/23/2023 Do you belong to any clubs o r organizations such as scientologist groups, unions, fraternal or athletic groups, or [...] place to sleep or slept in a 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 (including now)? Patient refused 03/23/2023 Sex and [...] EDT Office Visit [facility] [address] [place] [phone] Maria Fernanda Olguin NP [address] [place] [address] documented as of this encounter Procedures Procedure Name Priority Date/Time Associated Diagnosis Comments XR FOOT LT MIN 3V 04/28/2023 2:2 6 PM EST documented in this encounter Results * XR FOOT LT MIN 3V (04/28/2023 2:26 PM EST) Anatomical Region Laterality Modality Other 04/28/2023 2:26 PM EST Narrative 04/28/2023 2:29 [place] [address] XRay Report Signed Patient: TREV MCKEON MR#: [id number] : 1980 Acct:[id number] Age/Sex: 42 / M ADM Date: 04/28/23 Loc: Attending Dr: Jesus Feldman D.P.M. Ordering Physician: Jesus Feldman D.P.M. Date of Service: 04/28/23 Procedure(s): XR foot LT min 3V Accession Number(s): [id number] cc: Jesus Feldman D.P.M.; ERIC HERNANDEZ [address] [address] Patient Name: TREV MCKEON MRN: [id number] date: 1980 Sex: M Assigned Patient Location: Current Patient Location: Accession/Order Number: [id number] Exam Date: 04/28/2023 10:10 Report Date: 04/28/2023 14:26 At the request of: JESUS FELDMAN Procedure: XR foot LT min 3V PROCEDURE: XR foot LT min 3V DATE: 04/28/2023 9:10 AM MANAGER PROGRAM MANAGEMENT COMPARISONS: 02/19/2023 CLINICAL INDICATION: LEFT FOOT BLISTER [...] osteomyelitis on these images. Electronically authenticated by: QSAIM SOSA Date: 04/28/2023 14:26 Dictated By: Qasim Sosa M.D. Signed By: 04/28/23 1429 DD/ 1426 TD/TT: Blood Tester Fowl: Procedure Note Radiology, Radiologist, MD - 07/14/2023 [place] [address] XRay Report Signed Patient: TREV MCKEON BMR#: [id number] : 1980Acct:[id number] Age/Sex: 42 / MADM Date: 04/28/23 Loc: WC Attending Dr: Jesus Feldman D.P.M. Ordering Physician: Jesus Feldman D.P.M. Date of Service: 04/28/23 Procedure(s): XR foot LT min 3V Accession Number(s): [id number] cc: Jesus Feldman D.P.M.; ERIC HERNANDEZ [place] [id number] Patient Name: TREV MCKEON MRN: [id number] date: 1980 Sex: M Assigned Patient Location: Current Patient Location: Accession/Order Number: [id number] Exam Date: 04/28/2023 10:10 Report Date: 04/28/2023 14:26 At the request of: JESUS FELDMAN Procedure: XR foot LT min 3V PROCEDURE: XR foot LT min 3V DATE: 04/28/2023 9:10 AM MANAGER PROGRAM MANAGEMENT COMPARISONS: 02/19/2023 CLINICAL INDICATION: LEFT FOOT BLISTER [...] M.D. Signed By:04/28/23 1429 DD/ 1426 TD/TT: Blood Tester Fowl: us Generic External Data Provider [facility] Final Result documented in this encounter Visit Diagnoses Not on filedocumented in this encounter Care Teams Clinical Research Director Relationship Specialty Start Date End Date Shelby, Eric Lozada MD PCP - General Family Medicine 09/15/22 Blossom Cody NP Nurse Practitioner Family Medicine 01/19/24 documented as of this encounter
--- OUTSIDE RECORDS SUMMARY | 2024-11-22 09:49 | XMS_ITS | Encounter Summary ---
Author Organization [facility] Address [address] [place] [address] Care Team Providers Care Special Forces Specialist Name Role Phone Natalie Ryan MD Primary Care Provider [phone] Blossom Cody ALUM MIXER Unavailable [phone] Encounter Details Date Type Department Care Team ([facility] Contact Info) Description 03/19/2023 Orders Only [facility] [address] [place] [address] Link Ortega ALUM MIXER [address] [place] [address] Social History Tobacco Use Types [...] any clubs o r organizations such as rastafari groups, unions, fraternal or athletic groups, or [...] AM EDT Office Visit [facility] [address] [place] [address] Maria Fernanda Olguin NP [address] [place], [place] [id number] documented as of this encounter Procedures Procedure [...] on filedocumented in this encounter Care Teams Special Forces Specialist Relationship Specialty Start Date End Date Natalie Ryan MD PCP - General Family Medicine 09/15/22 Blossom Cody NP Nurse Practitioner Family Medicine 01/19/24 documented as of this encounter
--- OUTSIDE RECORDS SUMMARY | 2024-11-22 09:49 | XMS_ITS | Encounter Summary ---
Author Organization [facility] Address [address] [facility] [place] [address] Care Team Providers Care Recycling Tech Name Role Phone Natalie Ryan MD Primary Care Provider [phone] Blossom Cody STOREPERSON Unavailable [phone] Encounter Details Date Type Department Care Team (Late Contact Info) Description 10/02/2022 Abstract [facility] [address] [place] [address] Natalie Ryan MD Social History Tobacco Use Types Packs/Day Years Used Date Smoking Tobacco: Never Assessed Sex and Gender Information Value Date Recorded Sex Assigned at Not on file Legal Sex Male 6:33 PM EDT Gender Identity Not on file Sexual Orientation Not on file documented as of this encounter Plan of Treatment Upcoming Encounters Date Type Department Care Team ([facility] Contact Info) Description 01/31/2025 9:30 AM EDT Office Visit [facility] [address] [place] [phone] Maria Fernanda Olguin NP [address] [place], [place] [id number] documented as of this encounter Visit Diagnoses Not on filedocumented in this encounter Care Teams Recycling Tech Relationship Specialty Start Date End Date Natalie Ryan MD PCP - General Family Medicine 09/15/22 Blossom Cody NP Nurse Practitioner Family Medicine 01/19/24 documented as of this encounter
--- OUTSIDE RECORDS SUMMARY | 2024-11-22 09:50 | XMS_ITS | Encounter Summary ---
Author Organization [facility] Address [address] [place] [address] Care Team Providers Care Delimer Name Role Phone Natalie Ryan MD Primary Care Provider [phone] Blossom Cody STAMP PRESS OPERATOR Unavailable Encounter Details Date Type Department Care Team ([facility] Contact Info) Description 05/19/2024 Abstract [facility] [address] [facility] [address] [place] [address] Unallocated, Noms Provider, [address] [place], [place] [id number] Social History Tobacco Use Types Packs/Day Years [...] often do you attend chur ch or restorationist services? More than 4 times per year 03/23/2023 Do you belong to any clubs o r organizations such as zoroastrian groups, unions, fraternal or athletic groups, or [...] EDT Office Visit [facility] [address] [place] [address] Maria Fernanda Olguin NP [address] [place], [place] [id number] documented as of this encounter Visit Diagnoses Not on filedocumented in this encounter Care Teams Delimer Relationship Specialty Start Date End Date Natalie Ryan MD PCP - General Family Medicine 09/15/22 Blossom Cody NP Nurse Practitioner Family Medicine 01/19/24 documented as of this encounter
--- OUTSIDE RECORDS SUMMARY | 2024-11-22 09:50 | XMS_ITS | Encounter Summary ---
Author Organization [facility] Address [address] [place] [address] Care Team Providers Care Motor Express Clerk Name Role Phone Natalie Ryan MD Primary Care Provider [phone] Blossom Cody URANIUM PROCESSING SUPERVISOR Unavailable [phone] Encounter Details Date Type Department Care Team ([facility] Contact Info) Description 08/02/2023 Abstract [facility] [address] [place] [phone] Chidi Moore, DPM [address] [place], [place] [id number] Social History Tobacco Use Types Packs/Day Years [...] EDT Office Visit [facility] [address] [place] [phone] Maria Fernanda Olguin NP [address] [place], [place] [address] documented as of this encounter Visit Diagnoses Not on filedocumented in this encounter Care Teams Motor Express Clerk Relationship Specialty Start Date End Date Natalie Ryan MD PCP - General Family Medicine 09/15/22 Blossom Cody NP Nurse Practitioner Family Medicine 01/19/24 documented as of this encounter
--- OUTSIDE RECORDS SUMMARY | 2024-11-22 09:50 | XMS_ITS | Encounter Summary ---
Author Organization [facility] Address [address] [place] [address] Care Team Providers Care Case Monitor Name Role Phone Natalie Ryan MD Primary Care Provider [phone] Blossom Cody TECHNICAL SUPPORT PROFESSIONAL Unavailable [phone] Encounter Details Date Type Department Care Team ([facility] Contact Info) Description 01/27/2024 Orders Only [facility] [address] [place] [address] Link Ortega TECHNICAL SUPPORT PROFESSIONAL [address] [place] [address] Social History Tobacco Use Types [...] any clubs o r organizations such as faith groups, unions, fraternal or athletic groups, or [...] EDT Office Visit [facility] [address] [place] [phone] Maria Fernanda Olguin NP [address] [place], [place] [id number] documented as of this encounter Procedures Procedure [...] on filedocumented in this encounter Care Teams Case Monitor Relationship Specialty Start Date End Date Natalie Ryan MD PCP - General Family Medicine 09/15/22 Blossom Cody NP Nurse Practitioner Family Medicine 01/19/24 documented as of this encounter
--- OUTSIDE RECORDS SUMMARY | 2024-11-22 09:50 | XMS_ITS | Encounter Summary ---
Author Organization [facility] Address [address] [place] [address] Care Team Providers Care Mold Mover Name Role Phone Natalie Ryan MD Primary Care Provider [phone] Blossom Cody EARLY CHILDHOOD EDUCATION SPECIALIST Unavailable [phone] Encounter Details Date Type Department Care Team ([facility] Contact Info) Description 09/20/2023 Abstract [facility] [address] [place] [address] Chidi Moore, DPM [address] [place], [place] [phone] Social History Tobacco Use Types Packs/Day Years [...] EDT Office Visit [facility] [address] [place] [address] Maria Fernanda Olguin NP [address] [place], [place] [address] documented as of this encounter Visit Diagnoses Not on filedocumented in this encounter Care Teams Mold Mover Relationship Specialty Start Date End Date Natlaie Ryan MD PCP - General Family Medicine 09/15/22 Blossom Cody NP Nurse Practitioner Family Medicine 01/19/24 documented as of this encounter
--- OUTSIDE RECORDS SUMMARY | 2024-11-22 09:50 | XMS_ITS | Encounter Summary ---
Author Organization [facility] Address [address] [place] [address] Care Team Providers Care Electronic Semiconductor Processor Name Role Phone Natalie Ryan MD Primary Care Provider [phone] Blossom Cody BOAT OUTFITTER Unavailable [phone] Encounter Details Date Type Department Care Team ([facility] Contact Info) Description 06/15/2024 Abstract [facility] [address] [place] [address] Natalie Ryan MD Social History [...] place to sleep or slept in a group home (including now)? Patient refused 03/23/2023 Sex [...] EDT Office Visit [facility] [address] [place] [address] Maria Fernanda Olguin NP [address] [place], [place] [phone] documented as of this encounter Visit Diagnoses Not on filedocumented in this encounter Care Teams Electronic Semiconductor Processor Relationship Specialty Start Date End Date Shelby, Natalie Lozada MD PCP - General Family Medicine 09/15/22 Blossom Cody NP Nurse Practitioner Family Medicine 01/19/24 documented as of this encounter
--- OUTSIDE RECORDS SUMMARY | 2024-11-22 09:50 | XMS_ITS | Encounter Summary ---
Author Organization [facility] Address [address] [place] [address] Care Team Providers Care Pain Management Nurse Name Role Phone Natalie Ryan MD Primary Care Provider [phone] Blossom Cody EYEGLASS LENS CUTTER Unavailable [phone] Encounter Details Date Type Department Care Team ([facility] Contact Info) Description 11/15/2023 Abstract [facility] [address] [place] [address] Chidi Moore, DPM [address] [place], [place] [id number] Social History Tobacco Use Types Packs/Day Years [...] EDT Office Visit [facility] [address] [place] [address] Maria Fernanda Olguin NP [address] [place], [place] [address] documented as of this encounter Visit Diagnoses Not on filedocumented in this encounter Care Teams Pain Management Nurse Relationship Specialty Start Date End Date Natalie Ryan MD PCP - General Family Medicine 09/15/22 Blossom Cody NP Nurse Practitioner Family Medicine 01/19/24 documented as of this encounter
--- OUTSIDE RECORDS SUMMARY | 2024-11-22 09:50 | XMS_ITS | Patient Health Record ---
Author Organization [facility] in [place] Address [address] [place] [address] Care Team Providers Care Mastercam Programmer Name Role Phone Natalie Hernandez Primary Care Provider Natanael Dai [phone] Results Component Value Reference Range Notes XR foot RT min 3V (Not yet r eviewed by provider) Interpretation: Performing Lab: Notes/Report: Source Facility: [place] [address] XRay Report Signed Patient: TREV MCKEON MR#: [id number] : 1980 Acct:[id number] Age/Sex: 43 / M ADM Date: 04/25/24 Loc: Attending Dr: Martell Navas Ordering Physician: Martell Navas Date of Service: 04/25/24 Procedure(s): XR foot RT min 3V Accession Number(s): [id number] cc: Martell Navas; NATALIE HERNANDEZ [place] [phone] Patient Name: TREV MCKEON MRN: [id number] date: 1980 Sex: M Assigned Patient Location: Current Patient Location: [place] Accession/Order Number: [id number] Exam Date: 04/25/2024 11:58 Report Date: 04/26/2024 [...] M.D. Signed By: 04/26/24905 DD/ 2 TD/TT: Movie Theater Usher: [place] [address] XRay Report Signed Patient: CITLALY MCKEON MR#: [id number] : 1980 Acct:[id number] Age/Sex: 43 / M ADM Date: 04/25/24 Loc: Attending Dr: Danielle Navas Ordering Physician: Martell Navas Date of Service: 04/25/24 Procedure(s): XR kristen t RT min 3V Accession Number(s): [id number] cc: Martell Navas; NATALIE HERNANDEZ [place] [phone] Patient Name: TREV MCKEON MRN: [id number] date: 1980 Sex: M Assigned Patient Location: Current Patient Location: [place] Accession/Order Numb er: [id number] Exam Date: 11:58 Report Date: 04/26/2024 09:03 [...] M.D. Signed By: 04/26/24905 DD/ 2 TD/TT: Movie Theater Usher: Fungus Stain (Not yet review ed by provider) Interpretation: Performing Lab: Notes/Report: Comment right foot fascia for culture [facility] , Fungus Stain See Below For Report Fungus Stain Fungus Stain SHAQ/Calcofluor preparation: no fungus observed. Fungus Stain Performing Lab: [facility] Fungus (Mycology) Culture (N ot yet reviewed by provider) Interpretation: Performing Lab: Notes/Report: Comment right foot ulcer [facility] , Fungus (Mycology) Culture See Below For Report WILL FOLLOW Fungus (Mycology) Culture Fungus (Mycology) Culture No yeast or mold isolated after 4 weeks. WILL FOLLOW Fungus (Mycology) Culture Fungus (Mycology) Culture Performed at: [facility] WILL FOLLOW Fungus (Mycology) Culture Fungus (Mycology) Culture [address] [place], [place] [id number] WILL FOLLOW Fungus (Mycology) Culture Fungus (Mycology) Culture Chainstitch Seat Joiner: Lalo Everett PhD, Phone: [phone] WILL FOLLOW Fungus (Mycology) Culture Performing Lab: see note - [facility] LB SEE REPORT - Tilt Wall Supervisor Id information not found for OBX-specific sales producer legend Aerobic Culture (Not yet rev iewed by provider) Interpretation: Performing Lab: Notes/Report: [facility] , Aerobic Culture See Below For Report WILL FOLLOW Aerobic Culture Aerobic Culture WILL FOLLOW Aerobic Culture Aerobic Culture Mixed skin maximiliano WILL FOLLOW Aerobic Culture Performing Lab: see note - [facility] LB [...] Stain Result Gram Stain Result Performed at: [facility] Gram Stain Result Gram Stain Result [address] [place], [place] [id number] Gram Stain Result Gram Stain Result Chainstitch Seat Joiner: Nancy Everett PhD, Phone: [phone] Gram Stain Result Performing Lab: see note SEE REPORT - Tilt Wall Supervisor Id information not found for OBX-specific sales producer legend [facility] Fungus Stain (Not yet review [...] observed. Fungus Stain Performing Lab: see note [facility] Fungus (Mycology) Culture (N ot yet [...] (Mycology) Culture Fungus (Mycology) Culture Performed at: [facility] Fungus (Mycology) Culture Fungus (Mycology) Culture [address] [place], [place] [id number] Fungus (Mycology) Culture Fungus (Mycology) Culture Chainstitch Seat Joiner: Lalo Everett PhD, Phone: [phone] Fungus (Mycology) Culture Performing Lab: see note SEE REPORT - Tilt Wall Supervisor Id information not found for OBX-specific sales producer legend [facility] Fungus (Mycology) Culture (N ot yet [...] (Mycology) Culture Fungus (Mycology) Culture Performed at: [facility] Fungus (Mycology) Culture Fungus (Mycology) Culture [address] [place], [place] [id number] Fungus (Mycology) Culture Fungus (Mycology) Culture Chainstitch Seat Joiner: Lalo Everett PhD, Phone: [phone] Fungus (Mycology) Culture Performing Lab: see note LC - [facility] LB SEE REPORT - Tilt Wall Supervisor Id information not found for OBX-specific sales producer legend Acid Fast Culture (Not yet r [...] Fast Culture Acid Fast Culture Performed at: [facility] Specimen has been received and testing has been initiated. Acid Fast Culture Acid Fast Culture [address] [place], [place] [phone] Specimen has been received and testing has been initiated. Acid Fast Culture Acid Fast Culture Chainstitch Seat Joiner: Nancy Everett PhD, Phone: [phone] Specimen has been received and testing has been initiated. Acid Fast Culture Performing Lab: see note SEE REPORT - Tilt Wall Supervisor Id information not found for OBX-specific sales producer legend LC - [facility] LB Acid Fast [...] by provider) Interpretation: Performing Lab: Notes/Report: [facility] , Gram Stain See Below [...] [facility] Epithelial Cells Performing Lab: see note ML - [facility] LB Aerobic Culture (Not yet rev iewed [...] AFB Specimen Processing Performing Lab: see note - [facility] LB Tissue Culture (Not yet revi ewed by [...] O:PREDIS Anaerobic Cult, Extended Incub Studies at [facility] have confirmed the Isolated Anaerobic Cult, Extended [...] Extended Incub O:PREDIS Performing Lab: see note [facility] LB Anaerobic Culture (Not yet r [...] Culture Isolated O:PREDIS Anaerobic Culture [facility] have confirmed the Anaerobic Culture Isolated O:PREDIS Anaerobic Culture observations of [facility] who have demonstrated that Anaerobic Culture [...] Culture Isolated O:PREDIS Performing Lab: see note [facility] LB Gram Stain Result (Not yet r eviewed by provider) Interpretation: Performing Lab: Notes/Report: [facility] , Gram Stain Result See Below For Report Gram Stain Result Gram Stain Result No white blood cells seen. Gram Stain Result Gram Stain Result Gram Stain Result Gram Stain Result No organisms seen Gram Stain Result Gram Stain Result Performed at: [facility] Gram Stain Result Gram Stain Result [address] [place], [place] [id number] Gram Stain Result Gram Stain Result Chainstitch Seat Joiner: Nancy Everett PhD, Phone: [phone] Gram Stain Result Performing Lab: see note SEE REPORT - Tilt Wall Supervisor Id information not found for OBX-specific sales producer legend [facility] Acid Fast Culture (Not yet [...] Fast Culture Acid Fast Culture [facility] Specimen has been received and testing has been initiated. Acid Fast Culture Acid Fast Culture [address] [place], [place] [id number] Specimen has been received and testing has been initiated. Acid Fast Culture Acid Fast Culture Chainstitch Seat Joiner: Nancy Everett PhD, Phone: [phone] Specimen has been received and testing has been initiated. Acid Fast Culture Performing Lab: see note SEE REPORT - Tilt Wall Supervisor Id information not found for OBX-specific sales producer legend LC - [facility] LB Acid Fast [...] AFB Specimen Processing Performing Lab: see note - [facility] LB Aerobic Culture (Not yet rev iewed by provider) Interpretation: Performing Lab: Notes/Report: [facility] , Aerobic Culture See Below For Report Piperacillin S F Ticarcillin S F Ciprofloxacin S F Ceftazidime S F Meropenem S F Levofloxacin S F Imipenem S F Tobramycin S F O:PSAV Ticarcillin Ciprofloxacin O:GNR Ceftazidime Cefepime Levofloxacin Imipenem Tobramycin Gentamicin Aerobic Culture Amikacin Organism: 2.2 Isolated WILL FOLLOW Cefepime S F Amikacin S F Antibiotic Interpretation EV[facility] Status Gentamicin S F Isolated Piperacillin Meropenem Aerobic Culture Organism: Gram negat brittney rivas : Piperacillin S F Ticarcillin S F Ciprofloxacin S F Ceftazidime S F Meropenem S F Levofloxacin S F Imipenem S F Tobramycin S F O:PSAV Ticarcillin Ciprofloxacin O:GNR Ceftazidime Cefepime Levofloxacin Imipenem Tobramycin Gentamicin Aerobic Culture Amikacin Organism: 2.2 Isolated WILL FOLLOW Cefepime S F Amikacin S F Antibiotic Interpretation [place]ENS Status Gentamicin S F Isolated Piperacillin Meropenem Aerobic Culture *ABNORMAL* Piperacillin S F Ticarcillin S F Ciprofloxacin S F Ceftazidime S F Meropenem S F Levofloxacin S F Imipenem S F Tobramycin S F O:PSAV Ticarcillin Ciprofloxacin O:GNR Ceftazidime Cefepime Levofloxacin Imipenem Tobramycin Gentamicin Aerobic Culture Amikacin Organism: 2.2 Isolated WILL FOLLOW Cefepime S F Amikacin S F Antibiotic Interpretation [place] Status Gentamicin S F Isolated Piperacillin Meropenem Aerobic Culture Heavy growth Piperacillin S F Ticarcillin S F Ciprofloxacin S F Ceftazidime S F Meropenem S F Levofloxacin S F Imipenem S F Tobramycin S F O:PSAV Ticarcillin Ciprofloxacin O:GNR Ceftazidime Cefepime Levofloxacin Imipenem Tobramycin Gentamicin Aerobic Culture Amikacin Organism: 2.2 Isolated WILL FOLLOW Cefepime S F Amikacin S F Antibiotic Interpretation [place] Status Gentamicin S F Isolated Piperacillin Meropenem Aerobic Culture Piperacillin S F Ticarcillin S F Ciprofloxacin S F Ceftazidime S F Meropenem S F Levofloxacin S F Imipenem S F Tobramycin S F O:PSAV Ticarcillin Ciprofloxacin O:GNR Ceftazidime Cefepime Levofloxacin Imipenem Tobramycin Gentamicin Aerobic Culture Amikacin Organism: 2.2 Isolated WILL FOLLOW Cefepime S F Amikacin S F Antibiotic Interpretation [place] Status Gentamicin S F Isolated Piperacillin Meropenem Aerobic Culture Mixed skin maximiliano Piperacillin S F Ticarcillin S F Ciprofloxacin S F Ceftazidime S F Meropenem S F Levofloxacin S F Imipenem S F Tobramycin S F O:PSAV Ticarcillin Ciprofloxacin O:GNR Ceftazidime Cefepime Levofloxacin Imipenem Tobramycin Gentamicin Aerobic Culture Amikacin Organism: 2.2 Isolated WILL FOLLOW Cefepime S F Amikacin S F Antibiotic Interpretation [place] Status Gentamicin S F Isolated Piperacillin Meropenem Aerobic Culture Heavy growth Piperacillin S F Ticarcillin S F Ciprofloxacin S F Ceftazidime S F Meropenem S F Levofloxacin S F Imipenem S F Tobramycin S F O:PSAV Ticarcillin Ciprofloxacin O:GNR Ceftazidime Cefepime Levofloxacin Imipenem Tobramycin Gentamicin Aerobic Culture Amikacin Organism: 2.2 Isolated WILL FOLLOW Cefepime S F Amikacin S F Antibiotic Interpretation EVENS Status Gentamicin S F Isolated Piperacillin Meropenem Aerobic Culture Gram negative rivas Piperacillin S F Ticarcillin S F Ciprofloxacin S F Ceftazidime S F Meropenem S F Levofloxacin S F Imipenem S F Tobramycin S F O:PSAV Ticarcillin Ciprofloxacin O:GNR Ceftazidime Cefepime Levofloxacin Imipenem Tobramycin Gentamicin Aerobic Culture Amikacin Organism: 2.2 Isolated WILL FOLLOW Cefepime S F Amikacin S F Antibiotic Interpretation EVENS Status Gentamicin S F Isolated Piperacillin Meropenem Aerobic Culture Organism: Pseudomona s aeruginosa.. : Piperacillin S F Ticarcillin S F Ciprofloxacin S F Ceftazidime S F Meropenem S F Levofloxacin S F Imipenem S F Tobramycin S F O:PSAV Ticarcillin Ciprofloxacin O:GNR Ceftazidime Cefepime Levofloxacin Imipenem Tobramycin Gentamicin Aerobic Culture Amikacin Organism: 2.2 Isolated WILL FOLLOW Cefepime S F Amikacin S F Antibiotic Interpretation EVENS Status Gentamicin S F Isolated Piperacillin Meropenem Aerobic Culture *ABNORMAL* Piperacillin S F Ticarcillin S F Ciprofloxacin S F Ceftazidime S F Meropenem S F Levofloxacin S F Imipenem S F Tobramycin S F O:PSAV Ticarcillin Ciprofloxacin O:GNR Ceftazidime Cefepime Levofloxacin Imipenem Tobramycin Gentamicin Aerobic Culture Amikacin Organism: 2.2 Isolated WILL FOLLOW Cefepime S F Amikacin S F Antibiotic Interpretation EVENS Status Gentamicin S F Isolated Piperacillin Meropenem Aerobic Culture Heavy growth Piperacillin S F Ticarcillin S F Ciprofloxacin S F Ceftazidime S F Meropenem S F Levofloxacin S F Imipenem S F Tobramycin S F O:PSAV Ticarcillin Ciprofloxacin O:GNR Ceftazidime Cefepime Levofloxacin Imipenem Tobramycin Gentamicin Aerobic Culture Amikacin Organism: 2.2 Isolated WILL FOLLOW Cefepime S F Amikacin S F Antibiotic Interpretation EVENS Status Gentamicin S F Isolated Piperacillin Meropenem Aerobic Culture Piperacillin S F Ticarcillin S F Ciprofloxacin S F Ceftazidime S F Meropenem S F Levofloxacin S F Imipenem S F Tobramycin S F O:PSAV Ticarcillin Ciprofloxacin O:GNR Ceftazidime Cefepime Levofloxacin Imipenem Tobramycin Gentamicin Aerobic Culture Amikacin Organism: 2.2 Isolated WILL FOLLOW Cefepime S F Amikacin S F Antibiotic Interpretation EVENS Status Gentamicin S F Isolated Piperacillin Meropenem Aerobic Culture Mixed skin maximiliano Piperacillin S F Ticarcillin S F Ciprofloxacin S F Ceftazidime S F Meropenem S F Levofloxacin S F Imipenem S F Tobramycin S F O:PSAV Ticarcillin Ciprofloxacin O:GNR Ceftazidime Cefepime Levofloxacin Imipenem Tobramycin Gentamicin Aerobic Culture Amikacin Organism: 2.2 Isolated WILL FOLLOW Cefepime S F Amikacin S F Antibiotic Interpretation EVENS Status Gentamicin S F Isolated Piperacillin Meropenem Aerobic Culture Heavy growth Piperacillin S F Ticarcillin S F Ciprofloxacin S F Ceftazidime S F Meropenem S F Levofloxacin S F Imipenem S F Tobramycin S F O:PSAV Ticarcillin Ciprofloxacin O:GNR Ceftazidime Cefepime Levofloxacin Imipenem Tobramycin Gentamicin Aerobic Culture Amikacin Organism: 2.2 Isolated WILL FOLLOW Cefepime S F Amikacin S F Antibiotic Interpretation EVENS Status Gentamicin S F Isolated Piperacillin Meropenem Aerobic Culture Pseudomonas aeruginosa.. Piperacillin S F Ticarcillin S F Ciprofloxacin S F Ceftazidime S F Meropenem S F Levofloxacin S F Imipenem S F Tobramycin S F O:PSAV Ticarcillin Ciprofloxacin O:GNR Ceftazidime Cefepime Levofloxacin Imipenem Tobramycin Gentamicin Aerobic Culture Amikacin Organism: 2.2 Isolated WILL FOLLOW Cefepime S F Amikacin S F Antibiotic Interpretation EVENS Status Gentamicin S F Isolated Piperacillin Meropenem Aerobic Culture See Below For Report Piperacillin S F Ticarcillin S F Ciprofloxacin S F Ceftazidime S F Meropenem S F Levofloxacin S F Imipenem S F Tobramycin S F O:PSAV Ticarcillin Ciprofloxacin O:GNR Ceftazidime Cefepime Levofloxacin Imipenem Tobramycin Gentamicin Aerobic Culture Amikacin Organism: 2.2 Isolated WILL FOLLOW Cefepime S F Amikacin S F Antibiotic Interpretation EVENS Status Gentamicin S F Isolated Piperacillin Meropenem Aerobic Culture See Below For Report Piperacillin S F Ticarcillin S F Ciprofloxacin S F Ceftazidime S F Meropenem S F Levofloxacin S F Imipenem S F Tobramycin S F O:PSAV Ticarcillin Ciprofloxacin O:GNR Ceftazidime Cefepime Levofloxacin Imipenem Tobramycin Gentamicin Aerobic Culture Amikacin Organism: 2.2 Isolated WILL FOLLOW Cefepime S F Amikacin S F Antibiotic Interpretation EVENS Status Gentamicin S F Isolated Piperacillin Meropenem Aerobic Culture See Below For Report Piperacillin S F Ticarcillin S F Ciprofloxacin S F Ceftazidime S F Meropenem S F Levofloxacin S F Imipenem S F Tobramycin S F O:PSAV Ticarcillin Ciprofloxacin O:GNR Ceftazidime Cefepime Levofloxacin Imipenem Tobramycin Gentamicin Aerobic Culture Amikacin Organism: 2.2 Isolated WILL FOLLOW Cefepime S F Amikacin S F Antibiotic Interpretation EVENS Status Gentamicin S F Isolated Piperacillin Meropenem Aerobic Culture See Below For Report Piperacillin S F Ticarcillin S F Ciprofloxacin S F Ceftazidime S F Meropenem S F Levofloxacin S F Imipenem S F Tobramycin S F O:PSAV Ticarcillin Ciprofloxacin O:GNR Ceftazidime Cefepime Levofloxacin Imipenem Tobramycin Gentamicin Aerobic Culture Amikacin Organism: 2.2 Isolated WILL FOLLOW Cefepime S F Amikacin S F Antibiotic Interpretation EVENS Status Gentamicin S F Isolated Piperacillin Meropenem Aerobic Culture See Below For Report Piperacillin S F Ticarcillin S F Ciprofloxacin S F Ceftazidime S F Meropenem S F Levofloxacin S F Imipenem S F Tobramycin S F O:PSAV Ticarcillin Ciprofloxacin O:GNR Ceftazidime Cefepime Levofloxacin Imipenem Tobramycin Gentamicin Aerobic Culture Amikacin Organism: 2.2 Isolated WILL FOLLOW Cefepime S F Amikacin S F Antibiotic Interpretation EVENS Status Gentamicin S F Isolated Piperacillin Meropenem Aerobic Culture See Below For Report Piperacillin S F Ticarcillin S F Ciprofloxacin S F Ceftazidime S F Meropenem S F Levofloxacin S F Imipenem S F Tobramycin S F O:PSAV Ticarcillin Ciprofloxacin O:GNR Ceftazidime Cefepime Levofloxacin Imipenem Tobramycin Gentamicin Aerobic Culture Amikacin Organism: 2.2 Isolated WILL FOLLOW Cefepime S F Amikacin S F Antibiotic Interpretation EVENS Status Gentamicin S F Isolated Piperacillin Meropenem Aerobic Culture See Below For Report Piperacillin S F Ticarcillin S F Ciprofloxacin S F Ceftazidime S F Meropenem S F Levofloxacin S F Imipenem S F Tobramycin S F O:PSAV Ticarcillin Ciprofloxacin O:GNR Ceftazidime Cefepime Levofloxacin Imipenem Tobramycin Gentamicin Aerobic Culture Amikacin Organism: 2.2 Isolated WILL FOLLOW Cefepime S F Amikacin S F Antibiotic Interpretation [facility] Status Gentamicin S F Isolated Piperacillin Meropenem Aerobic Culture See Below For Report Piperacillin S F Ticarcillin S F Ciprofloxacin S F Ceftazidime S F Meropenem S F Levofloxacin S F Imipenem S F Tobramycin S F O:PSAV Ticarcillin Ciprofloxacin O:GNR Ceftazidime Cefepime Levofloxacin Imipenem Tobramycin Gentamicin Aerobic Culture Amikacin Organism: 2.2 Isolated WILL FOLLOW Cefepime S F Amikacin S F Antibiotic Interpretation EVENS Status Gentamicin S F Isolated Piperacillin Meropenem Aerobic Culture See Below For Report Piperacillin S F Ticarcillin S F Ciprofloxacin S F Ceftazidime S F Meropenem S F Levofloxacin S F Imipenem S F Tobramycin S F O:PSAV Ticarcillin Ciprofloxacin O:GNR Ceftazidime Cefepime Levofloxacin Imipenem Tobramycin Gentamicin Aerobic Culture Amikacin Organism: 2.2 Isolated WILL FOLLOW Cefepime S F Amikacin S F Antibiotic Interpretation [facility] Status Gentamicin S F Isolated Piperacillin Meropenem Aerobic Culture See Below For Report Piperacillin S F Ticarcillin S F Ciprofloxacin S F Ceftazidime S F Meropenem S F Levofloxacin S F Imipenem S F Tobramycin S F O:PSAV Ticarcillin Ciprofloxacin O:GNR Ceftazidime Cefepime Levofloxacin Imipenem Tobramycin Gentamicin Aerobic Culture Amikacin Organism: 2.2 Isolated WILL FOLLOW Cefepime S F Amikacin S F Antibiotic Interpretation [place] Status Gentamicin S F Isolated Piperacillin Meropenem Aerobic Culture See Below For Report Piperacillin S F Ticarcillin S F Ciprofloxacin S F Ceftazidime S F Meropenem S F Levofloxacin S F Imipenem S F Tobramycin S F O:PSAV Ticarcillin Ciprofloxacin O:GNR Ceftazidime Cefepime Levofloxacin Imipenem Tobramycin Gentamicin Aerobic Culture Amikacin Organism: 2.2 Isolated WILL FOLLOW Cefepime S F Amikacin S F Antibiotic Interpretation EVENS Status Gentamicin S F Isolated Piperacillin Meropenem Aerobic Culture See Below For Report Piperacillin S F Ticarcillin S F Ciprofloxacin S F Ceftazidime S F Meropenem S F Levofloxacin S F Imipenem S F Tobramycin S F O:PSAV Ticarcillin Ciprofloxacin O:GNR Ceftazidime Cefepime Levofloxacin Imipenem Tobramycin Gentamicin Aerobic Culture Amikacin Organism: 2.2 Isolated WILL FOLLOW Cefepime S F Amikacin S F Antibiotic Interpretation EVENS Status Gentamicin S F Isolated Piperacillin Meropenem Aerobic Culture See Below For Report Piperacillin S F Ticarcillin S F Ciprofloxacin S F Ceftazidime S F Meropenem S F Levofloxacin S F Imipenem S F Tobramycin S F O:PSAV Ticarcillin Ciprofloxacin O:GNR Ceftazidime Cefepime Levofloxacin Imipenem Tobramycin Gentamicin Aerobic Culture Amikacin Organism: 2.2 Isolated WILL FOLLOW Cefepime S F Amikacin S F Antibiotic Interpretation EVENS Status Gentamicin S F Isolated Piperacillin Meropenem Aerobic Culture See Below For Report Piperacillin S F Ticarcillin S F Ciprofloxacin S F Ceftazidime S F Meropenem S F Levofloxacin S F Imipenem S F Tobramycin S F O:PSAV Ticarcillin Ciprofloxacin O:GNR Ceftazidime Cefepime Levofloxacin Imipenem Tobramycin Gentamicin Aerobic Culture Amikacin Organism: 2.2 Isolated WILL FOLLOW Cefepime S F Amikacin S F Antibiotic Interpretation [facility] Status Gentamicin S F Isolated Piperacillin Meropenem Performing Lab: see note LC - [facility] LB SEE REPORT - Tilt Wall Supervisor Id information not found for OBX-specific sales producer legend Anaerobic Culture (Not yet r eviewed [...] note - [facility] SEE REPORT - Tilt Wall Supervisor Id information not found for OBX-specific sales producer legend Gram Stain Result (Not yet r [...] Stain Result Gram Stain Result Performed at: [facility] Gram Stain Result Gram Stain Result [address] [place], [place] [id number] Gram Stain Result Gram Stain Result Chainstitch Seat Joiner: Nancy Everett PhD, Phone: [phone] Gram Stain Result Performing Lab: see note SEE REPORT - Tilt Wall Supervisor Id information not found for OBX-specific sales producer legend - [facility] Aerobic Culture (Not yet rev iewed by provider) Interpretation: Performing Lab: Notes/Report: [facility] , Aerobic Culture See Below For Report Ampicillin/Sulbactam Isolated Meropenem R F Ciprofloxacin Gentamicin Tobramycin Ceftriaxone I F Antibiotic Interpretation [facility] Status Aerobic Culture Piperacillin R F Trimethoprim/Sulfametho xazole Cefepime Cefotaxime Ampicillin/Sulbactam S F O:CRAB Imipenem Ciprofloxacin R F Tobramycin S F Ceftazidime O:GNR Tetracycline R F Organism: Gram negative rivas : Meropenem Trimethoprim/Sulfametho xazole R F Cefepime I F Gentamicin S F Ceftriaxone Organism: 2.1 Isolated Imipenem R F Piperacillin Tetracycline Cefotaxime R F Ceftazidime I F Aerobic Culture *ABNORMAL* Ampicillin/Sulbactam Isolated Meropenem R F Ciprofloxacin Gentamicin Tobramycin Ceftriaxone I F Antibiotic Interpretation [facility] Status Aerobic Culture Piperacillin R F Trimethoprim/Sulfametho xazole Cefepime Cefotaxime Ampicillin/Sulbactam S F O:CRAB Imipenem Ciprofloxacin R F Tobramycin S F Ceftazidime O:GNR Tetracycline R F Organism: Gram negative rivas : Meropenem Trimethoprim/Sulfametho xazole R F Cefepime I F Gentamicin S F Ceftriaxone Organism: 2.1 Isolated Imipenem R F Piperacillin Tetracycline Cefotaxime R F Ceftazidime I F Aerobic Culture Moderate growth Ampicillin/Sulbactam Isolated Meropenem R F Ciprofloxacin Gentamicin Tobramycin Ceftriaxone I F Antibiotic Interpretation EVENS Status Aerobic Culture Piperacillin R F Trimethoprim/Sulfametho xazole Cefepime Cefotaxime Ampicillin/Sulbactam S F O:CRAB Imipenem Ciprofloxacin R F Tobramycin S F Ceftazidime O:GNR Tetracycline R F Organism: Gram negative rivas : Meropenem Trimethoprim/Sulfametho xazole R F Cefepime I F Gentamicin S F Ceftriaxone Organism: 2.1 Isolated Imipenem R F Piperacillin Tetracycline Cefotaxime R F Ceftazidime I F Aerobic Culture Gram negative rivas Ampicillin/Sulbactam Isolated Meropenem R F Ciprofloxacin Gentamicin Tobramycin Ceftriaxone I F Antibiotic Interpretation EVENS Status Aerobic Culture Piperacillin R F Trimethoprim/Sulfametho xazole Cefepime Cefotaxime Ampicillin/Sulbactam S F O:CRAB Imipenem Ciprofloxacin R F Tobramycin S F Ceftazidime O:GNR Tetracycline R F Organism: Gram negative rivas : Meropenem Trimethoprim/Sulfametho xazole R F Cefepime I F Gentamicin S F Ceftriaxone Organism: 2.1 Isolated Imipenem R F Piperacillin Tetracycline Cefotaxime R F Ceftazidime I F Aerobic Culture Organism: Acinetobac ter baumannii (TRIM DIE MA[employer]ER) : Ampicillin/Sulbactam Isolated Meropenem R F Ciprofloxacin Gentamicin Tobramycin Ceftriaxone I F Antibiotic Interpretation EVENS Status Aerobic Culture Piperacillin R F Trimethoprim/Sulfametho xazole Cefepime Cefotaxime Ampicillin/Sulbactam S F O:CRAB Imipenem Ciprofloxacin R F Tobramycin S F Ceftazidime O:GNR Tetracycline R F Organism: Gram negative rivas : Meropenem Trimethoprim/Sulfametho xazole R F Cefepime I F Gentamicin S F Ceftriaxone Organism: 2.1 Isolated Imipenem R F Piperacillin Tetracycline Cefotaxime R F Ceftazidime I F Aerobic Culture *ABNORMAL* Ampicillin/Sulbactam Isolated Meropenem R F Ciprofloxacin Gentamicin Tobramycin Ceftriaxone I F Antibiotic Interpretation EVENS Status Aerobic Culture Piperacillin R F Trimethoprim/Sulfametho xazole Cefepime Cefotaxime Ampicillin/Sulbactam S F O:CRAB Imipenem Ciprofloxacin R F Tobramycin S F Ceftazidime O:GNR Tetracycline R F Organism: Gram negative rivas : Meropenem Trimethoprim/Sulfametho xazole R F Cefepime I F Gentamicin S F Ceftriaxone Organism: 2.1 Isolated Imipenem R F Piperacillin Tetracycline Cefotaxime R F Ceftazidime I F Aerobic Culture Carbapenem-resistant Ampicillin/Sulbactam Isolated Meropenem R F Ciprofloxacin Gentamicin Tobramycin Ceftriaxone I F Antibiotic Interpretation EVENS Status Aerobic Culture Piperacillin R F Trimethoprim/Sulfametho xazole Cefepime Cefotaxime Ampicillin/Sulbactam S F O:CRAB Imipenem Ciprofloxacin R F Tobramycin S F Ceftazidime O:GNR Tetracycline R F Organism: Gram negative rivas : Meropenem Trimethoprim/Sulfametho xazole R F Cefepime I F Gentamicin S F Ceftriaxone Organism: 2.1 Isolated Imipenem R F Piperacillin Tetracycline Cefotaxime R F Ceftazidime I F Aerobic Culture Multi-Drug Resistant Organism Ampicillin/Sulbactam Isolated Meropenem R F Ciprofloxacin Gentamicin Tobramycin Ceftriaxone I F Antibiotic Interpretation EVENS Status Aerobic Culture Piperacillin R F Trimethoprim/Sulfametho xazole Cefepime Cefotaxime Ampicillin/Sulbactam S F O:CRAB Imipenem Ciprofloxacin R F Tobramycin S F Ceftazidime O:GNR Tetracycline R F Organism: Gram negative rivas : Meropenem Trimethoprim/Sulfametho xazole R F Cefepime I F Gentamicin S F Ceftriaxone Organism: 2.1 Isolated Imipenem R F Piperacillin Tetracycline Cefotaxime R F Ceftazidime I F Aerobic Culture Moderate growth Ampicillin/Sulbactam Isolated Meropenem R F Ciprofloxacin Gentamicin Tobramycin Ceftriaxone I F Antibiotic Interpretation EVENS Status Aerobic Culture Piperacillin R F Trimethoprim/Sulfametho xazole Cefepime Cefotaxime Ampicillin/Sulbactam S F O:CRAB Imipenem Ciprofloxacin R F Tobramycin S F Ceftazidime O:GNR Tetracycline R F Organism: Gram negative rivas : Meropenem Trimethoprim/Sulfametho xazole R F Cefepime I F Gentamicin S F Ceftriaxone Organism: 2.1 Isolated Imipenem R F Piperacillin Tetracycline Cefotaxime R F Ceftazidime I F Aerobic Culture Acinetobacter todd newton (TRIM DIE MAKER) Ampicillin/Sulbactam Isolated Meropenem R F Ciprofloxacin Gentamicin Tobramycin Ceftriaxone I F Antibiotic Interpretation EVENS Status Aerobic Culture Piperacillin R F Trimethoprim/Sulfametho xazole Cefepime Cefotaxime Ampicillin/Sulbactam S F O:CRAB Imipenem Ciprofloxacin R F Tobramycin S F Ceftazidime O:GNR Tetracycline R F Organism: Gram negative rivas : Meropenem Trimethoprim/Sulfametho xazole R F Cefepime I F Gentamicin S F Ceftriaxone Organism: 2.1 Isolated Imipenem R F Piperacillin Tetracycline Cefotaxime R F Ceftazidime I F Aerobic Culture See Below For Report Ampicillin/Sulbactam Isolated Meropenem R F Ciprofloxacin Gentamicin Tobramycin Ceftriaxone I F Antibiotic Interpretation EVENS Status Aerobic Culture Piperacillin R F Trimethoprim/Sulfametho xazole Cefepime Cefotaxime Ampicillin/Sulbactam S F O:CRAB Imipenem Ciprofloxacin R F Tobramycin S F Ceftazidime O:GNR Tetracycline R F Organism: Gram negative rivas : Meropenem Trimethoprim/Sulfametho xazole R F Cefepime I F Gentamicin S F Ceftriaxone Organism: 2.1 Isolated Imipenem R F Piperacillin Tetracycline Cefotaxime R F Ceftazidime I F Aerobic Culture See Below For Report Ampicillin/Sulbactam Isolated Meropenem R F Ciprofloxacin Gentamicin Tobramycin Ceftriaxone I F Antibiotic Interpretation EVENS Status Aerobic Culture Piperacillin R F Trimethoprim/Sulfametho xazole Cefepime Cefotaxime Ampicillin/Sulbactam S F O:CRAB Imipenem Ciprofloxacin R F Tobramycin S F Ceftazidime O:GNR Tetracycline R F Organism: Gram negative rivas : Meropenem Trimethoprim/Sulfametho xazole R F Cefepime I F Gentamicin S F Ceftriaxone Organism: 2.1 Isolated Imipenem R F Piperacillin Tetracycline Cefotaxime R F Ceftazidime I F Aerobic Culture [facility] Ampicillin/Sulbactam Isolated Meropenem R F Ciprofloxacin Gentamicin Tobramycin Ceftriaxone I F Antibiotic Interpretation EVENS Status Aerobic Culture Piperacillin R F Trimethoprim/Sulfametho xazole Cefepime Cefotaxime Ampicillin/Sulbactam S F O:CRAB Imipenem Ciprofloxacin R F Tobramycin S F Ceftazidime O:GNR Tetracycline R F Organism: Gram negative rivas : Meropenem Trimethoprim/Sulfametho xazole R F Cefepime I F Gentamicin S F Ceftriaxone Organism: 2.1 Isolated Imipenem R F Piperacillin Tetracycline Cefotaxime R F Ceftazidime I F Aerobic Culture [address] [place], [place] [id number] Ampicillin/Sulbactam Isolated Meropenem R F Ciprofloxacin Gentamicin Tobramycin Ceftriaxone I F Antibiotic Interpretation EVENS Status Aerobic Culture Piperacillin R F Trimethoprim/Sulfametho xazole Cefepime Cefotaxime Ampicillin/Sulbactam S F O:CRAB Imipenem Ciprofloxacin R F Tobramycin S F Ceftazidime O:GNR Tetracycline R F Organism: Gram negative rivas : Meropenem Trimethoprim/Sulfametho xazole R F Cefepime I F Gentamicin S F Ceftriaxone Organism: 2.1 Isolated Imipenem R F Piperacillin Tetracycline Cefotaxime R F Ceftazidime I F Aerobic Culture Chainstitch Seat Joiner: Nancy Everett PhD, Phone: [phone] Ampicillin/Sulbactam Isolated Meropenem R F Ciprofloxacin Gentamicin Tobramycin Ceftriaxone I F Antibiotic Interpretation EVENS Status Aerobic Culture Piperacillin R F Trimethoprim/Sulfametho xazole Cefepime Cefotaxime Ampicillin/Sulbactam S F O:CRAB Imipenem Ciprofloxacin R F Tobramycin S F Ceftazidime O:GNR Tetracycline R F Organism: Gram negative rivas : Meropenem Trimethoprim/Sulfametho xazole R F Cefepime I F Gentamicin S F Ceftriaxone Organism: 2.1 Isolated Imipenem R F Piperacillin Tetracycline Cefotaxime R F Ceftazidime I F Aerobic Culture See Below For Report Ampicillin/Sulbactam Isolated Meropenem R F Ciprofloxacin Gentamicin Tobramycin Ceftriaxone I F Antibiotic Interpretation EVENS Status Aerobic Culture Piperacillin R F Trimethoprim/Sulfametho xazole Cefepime Cefotaxime Ampicillin/Sulbactam S F O:CRAB Imipenem Ciprofloxacin R F Tobramycin S F Ceftazidime O:GNR Tetracycline R F Organism: Gram negative rivas : Meropenem Trimethoprim/Sulfametho xazole R F Cefepime I F Gentamicin S F Ceftriaxone Organism: 2.1 Isolated Imipenem R F Piperacillin Tetracycline Cefotaxime R F Ceftazidime I F Aerobic Culture See Below For Report Ampicillin/Sulbactam Isolated Meropenem R F Ciprofloxacin Gentamicin Tobramycin Ceftriaxone I F Antibiotic Interpretation EVENS Status Aerobic Culture Piperacillin R F Trimethoprim/Sulfametho xazole Cefepime Cefotaxime Ampicillin/Sulbactam S F O:CRAB Imipenem Ciprofloxacin R F Tobramycin S F Ceftazidime O:GNR Tetracycline R F Organism: Gram negative rivas : Meropenem Trimethoprim/Sulfametho xazole R F Cefepime I F Gentamicin S F Ceftriaxone Organism: 2.1 Isolated Imipenem R F Piperacillin Tetracycline Cefotaxime R F Ceftazidime I F Aerobic Culture See Below For Report Ampicillin/Sulbactam Isolated Meropenem R F Ciprofloxacin Gentamicin Tobramycin Ceftriaxone I F Antibiotic Interpretation EVENS Status Aerobic Culture Piperacillin R F Trimethoprim/Sulfametho xazole Cefepime Cefotaxime Ampicillin/Sulbactam S F O:CRAB Imipenem Ciprofloxacin R F Tobramycin S F Ceftazidime O:GNR Tetracycline R F Organism: Gram negative rivas : Meropenem Trimethoprim/Sulfametho xazole R F Cefepime I F Gentamicin S F Ceftriaxone Organism: 2.1 Isolated Imipenem R F Piperacillin Tetracycline Cefotaxime R F Ceftazidime I F Aerobic Culture See Below For Report Ampicillin/Sulbactam Isolated Meropenem R F Ciprofloxacin Gentamicin Tobramycin Ceftriaxone I F Antibiotic Interpretation EVENS Status Aerobic Culture Piperacillin R F Trimethoprim/Sulfametho xazole Cefepime Cefotaxime Ampicillin/Sulbactam S F O:CRAB Imipenem Ciprofloxacin R F Tobramycin S F Ceftazidime O:GNR Tetracycline R F Organism: Gram negative rivas : Meropenem Trimethoprim/Sulfametho xazole R F Cefepime I F Gentamicin S F Ceftriaxone Organism: 2.1 Isolated Imipenem R F Piperacillin Tetracycline Cefotaxime R F Ceftazidime I F Aerobic Culture See Below For Report Ampicillin/Sulbactam Isolated Meropenem R F Ciprofloxacin Gentamicin Tobramycin Ceftriaxone I F Antibiotic Interpretation EVENS Status Aerobic Culture Piperacillin R F Trimethoprim/Sulfametho xazole Cefepime Cefotaxime Ampicillin/Sulbactam S F O:CRAB Imipenem Ciprofloxacin R F Tobramycin S F Ceftazidime O:GNR Tetracycline R F Organism: Gram negative rivas : Meropenem Trimethoprim/Sulfametho xazole R F Cefepime I F Gentamicin S F Ceftriaxone Organism: 2.1 Isolated Imipenem R F Piperacillin Tetracycline Cefotaxime R F Ceftazidime I F Aerobic Culture See Below For Report Ampicillin/Sulbactam Isolated Meropenem R F Ciprofloxacin Gentamicin Tobramycin Ceftriaxone I F Antibiotic Interpretation EVENS Status Aerobic Culture Piperacillin R F Trimethoprim/Sulfametho xazole Cefepime Cefotaxime Ampicillin/Sulbactam S F O:CRAB Imipenem Ciprofloxacin R F Tobramycin S F Ceftazidime O:GNR Tetracycline R F Organism: Gram negative rivas : Meropenem Trimethoprim/Sulfametho xazole R F Cefepime I F Gentamicin S F Ceftriaxone Organism: 2.1 Isolated Imipenem R F Piperacillin Tetracycline Cefotaxime R F Ceftazidime I F Aerobic Culture See Below For Report Ampicillin/Sulbactam Isolated Meropenem R F Ciprofloxacin Gentamicin Tobramycin Ceftriaxone I F Antibiotic Interpretation EVENS Status Aerobic Culture Piperacillin R F Trimethoprim/Sulfametho xazole Cefepime Cefotaxime Ampicillin/Sulbactam S F O:CRAB Imipenem Ciprofloxacin R F Tobramycin S F Ceftazidime O:GNR Tetracycline R F Organism: Gram negative rivas : Meropenem Trimethoprim/Sulfametho xazole R F Cefepime I F Gentamicin S F Ceftriaxone Organism: 2.1 Isolated Imipenem R F Piperacillin Tetracycline Cefotaxime R F Ceftazidime I F Aerobic Culture See Below For Report Ampicillin/Sulbactam Isolated Meropenem R F Ciprofloxacin Gentamicin Tobramycin Ceftriaxone I F Antibiotic Interpretation EVENS Status Aerobic Culture Piperacillin R F Trimethoprim/Sulfametho xazole Cefepime Cefotaxime Ampicillin/Sulbactam S F O:CRAB Imipenem Ciprofloxacin R F Tobramycin S F Ceftazidime O:GNR Tetracycline R F Organism: Gram negative rivas : Meropenem Trimethoprim/Sulfametho xazole R F Cefepime I F Gentamicin S F Ceftriaxone Organism: 2.1 Isolated Imipenem R F Piperacillin Tetracycline Cefotaxime R F Ceftazidime I F Aerobic Culture See Below For Report Ampicillin/Sulbactam Isolated Meropenem R F Ciprofloxacin Gentamicin Tobramycin Ceftriaxone I F Antibiotic Interpretation EVENS Status Aerobic Culture Piperacillin R F Trimethoprim/Sulfametho xazole Cefepime Cefotaxime Ampicillin/Sulbactam S F O:CRAB Imipenem Ciprofloxacin R F Tobramycin S F Ceftazidime O:GNR Tetracycline R F Organism: Gram negative rivas : Meropenem Trimethoprim/Sulfametho xazole R F Cefepime I F Gentamicin S F Ceftriaxone Organism: 2.1 Isolated Imipenem R F Piperacillin Tetracycline Cefotaxime R F Ceftazidime I F Aerobic Culture See Below For Report Ampicillin/Sulbactam Isolated Meropenem R F Ciprofloxacin Gentamicin Tobramycin Ceftriaxone I F Antibiotic Interpretation EVENS Status Aerobic Culture Piperacillin R F Trimethoprim/Sulfametho xazole Cefepime Cefotaxime Ampicillin/Sulbactam S F O:CRAB Imipenem Ciprofloxacin R F Tobramycin S F Ceftazidime O:GNR Tetracycline R F Organism: Gram negative rivas : Meropenem Trimethoprim/Sulfametho xazole R F Cefepime I F Gentamicin S F Ceftriaxone Organism: 2.1 Isolated Imipenem R F Piperacillin Tetracycline Cefotaxime R F Ceftazidime I F Aerobic Culture See Below For Report Ampicillin/Sulbactam Isolated Meropenem R F Ciprofloxacin Gentamicin Tobramycin Ceftriaxone I F Antibiotic Interpretation EVENS Status Aerobic Culture Piperacillin R F Trimethoprim/Sulfametho xazole Cefepime Cefotaxime Ampicillin/Sulbactam S F O:CRAB Imipenem Ciprofloxacin R F Tobramycin S F Ceftazidime O:GNR Tetracycline R F Organism: Gram negative rivas : Meropenem Trimethoprim/Sulfametho xazole R F Cefepime I F Gentamicin S F Ceftriaxone Organism: 2.1 Isolated Imipenem R F Piperacillin Tetracycline Cefotaxime R F Ceftazidime I F Aerobic Culture See Below For Report Ampicillin/Sulbactam Isolated Meropenem R F Ciprofloxacin Gentamicin Tobramycin Ceftriaxone I F Antibiotic Interpretation EVENS Status Aerobic Culture Piperacillin R F Trimethoprim/Sulfametho xazole Cefepime Cefotaxime Ampicillin/Sulbactam S F O:CRAB Imipenem Ciprofloxacin R F Tobramycin S F Ceftazidime O:GNR Tetracycline R F Organism: Gram negative rivas : Meropenem Trimethoprim/Sulfametho xazole R F Cefepime I F Gentamicin S F Ceftriaxone Organism: 2.1 Isolated Imipenem R F Piperacillin Tetracycline Cefotaxime R F Ceftazidime I F Aerobic Culture See Below For Report Ampicillin/Sulbactam Isolated Meropenem R F Ciprofloxacin Gentamicin Tobramycin Ceftriaxone I F Antibiotic Interpretation EVENS Status Aerobic Culture Piperacillin R F Trimethoprim/Sulfametho xazole Cefepime Cefotaxime Ampicillin/Sulbactam S F O:CRAB Imipenem Ciprofloxacin R F Tobramycin S F Ceftazidime O:GNR Tetracycline R F Organism: Gram negative rivas : Meropenem Trimethoprim/Sulfametho xazole R F Cefepime I F Gentamicin S F Ceftriaxone Organism: 2.1 Isolated Imipenem R F Piperacillin Tetracycline Cefotaxime R F Ceftazidime I F Aerobic Culture See Below For Report Ampicillin/Sulbactam Isolated Meropenem R F Ciprofloxacin Gentamicin Tobramycin Ceftriaxone I F Antibiotic Interpretation EVENS Status Aerobic Culture Piperacillin R F Trimethoprim/Sulfametho xazole Cefepime Cefotaxime Ampicillin/Sulbactam S F O:CRAB Imipenem Ciprofloxacin R F Tobramycin S F Ceftazidime O:GNR Tetracycline R F Organism: Gram negative rivas : Meropenem Trimethoprim/Sulfametho xazole R F Cefepime I F Gentamicin S F Ceftriaxone Organism: 2.1 Isolated Imipenem R F Piperacillin Tetracycline Cefotaxime R F Ceftazidime I F Performing Lab: see note LC - [facility] SEE REPORT - Tilt Wall Supervisor Id information not found for OBX-specific sales producer legend Anaerobic Culture (Not yet r eviewed [...] 1.1 Aerobic Culture Organism: Acinetobac ter baumannii (TRIM DIE MAKER) : O:GNR Organism: Gram negative rivas : [...] Organism: 1.1 Aerobic Culture Acinetobacter todd newton (TRIM DIE MAKER) O:GNR Organism: Gram negative rivas : O:CRAB [...] Status Organism: 1.1 Aerobic Culture Performed at: [facility] O:GNR Organism: Gram negative rivas : O:CRAB Isolated Isolated Aerobic Culture Antibiotic Interpretation EVENS Status Organism: 1.1 Aerobic Culture [address] [place], [place] [id number] O:GNR Organism: Gram negative rivas : O:CRAB Isolated Isolated Aerobic Culture Antibiotic Interpretation EVENS Status Organism: 1.1 Aerobic Culture Chainstitch Seat Joiner: Nancy Everett PhD, Phone: [phone] O:GNR Organism: Gram negative rivas : O:CRAB [...] Performing Lab: see note SEE REPORT - Tilt Wall Supervisor Id information not found for OBX-specific sales producer legend LC - [facility] XR foot RT min 3V (Not yet r eviewed by provider) Interpretation: Performing Lab: Notes/Report: Source Facility: [place] [address] [place] [address] XRay Report Signed Patient: TREV MCKEON MR#: [id number] : 1980 Acct:[id number] Age/Sex: 43 / M ADM Date: 04/25/24 Loc: [place] 204-[address]: Beth Root D.O. Ordering Physician: Natanael Feldman D.P.M. Date of Service: 04/26/24 Procedure(s): XR foot RT min 3V Accession Number(s): [id number] cc: Natanael Feldman D.P.M.; NATALIE HERNANDEZ [place] [address] Patient Name: TREV MCKEON MRN: [facility]:[id number] date: 1980 Sex: M Assigned Patient Location: [place] Current Patient Location: [place] Accession/Order Number: [id number] Exam Date: 04/26/2024 10:30 Report Date: 04/26/2024 [...] Signed By: 04/26/24 1158 DD/ 1155 TD/TT: Movie Theater Usher: [place] [address] XRay Report Signed Patient: CITLALY MCKEON MR#: [id number] : 1980 Acct:[id number] Age/Sex: 43 / M ADM Date: 04/25/24 Loc: [place] 204-[address]: Ivette Root D.O. Ordering Physician: Natanael Feldman D.P.M. Date of Service: 04/26/24 Procedure(s): XR kristen t RT min 3V Accession Number(s): [id number] cc: Natanael Feldman D.P.M.; NATALIE HERNANDEZ [place] [address] Patient Name: TREV MCKEON MRN: [id number] date: 1980 Sex: M Assigned Patient Location: MS Current Patient Location: [place] Accession/Order Numb er: [id number] Exam Date: 10:30 Report Date: 04/26/2024 11:55 [...] Signed By: 04/26/24 1158 DD/ 1155 TD/TT: Movie Theater Usher: Reason For Referral No Information Problems Problem Type SNOMED Code ICD Code Onset Dates Problem Status W/U Status Risk Notes Problem Foot ulcer due to type 2 diabetes mellitus (6424652391929) Type 2 diabetes mellitus with foot ulcer (E11.621) Active confirmed Problem Chronic ulcer of foot (023701634) 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 layer exposed (L97.422) Active confirmed Problem Hypertension (19528495) Hypertension (I10) Active confirmed Problem Acquired hallux rigidus (9509604) Hallux rigidus of left foot (M20.22) Active confirmed Problem Ulcer of left foot (disorder) (801598094) Chronic ulcer of left foot limited to breakdown of skin (L97.521) Active confirmed Problem Polyneuropathy due to type 2 diabetes mellitus (824449322) Diabetes mellitus with polyneuropathy (E11.42) Active confirmed Problem Foot ulcer due to type 2 diabetes mellitus (4400972537954) Diabetes mellitus with foot ulcer due to multiple causes (E11.621) Active confirmed Problem 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 confirmed Problem Hallux rigidus (7773120) Hallux rigidus (M20.20) Active confirmed Problem Acute osteomyelitis of ankle and/or foot (297822525) Acute osteomyelitis of right ankle or foot (M86.171) Active confirmed Problem Chronic foot ulcer, limited to breakdown of skin, left (L97.521) Active confirmed Problem Foot ulcer, left , with fat layer exposed (L97.522) Active confirmed Problem High cholesterol (70166404) High cholesterol (E78.00) Active confirmed Problem Chronic ulcer of great toe of left foot, limited to breakdown of skin (L97.521) Active confirmed Problem Acute osteomyelitis of ankle and/or foot (368470929) Acute hematogenous osteomyelitis of left foot (M86.072) Active confirmed Problem Non-pressure chronic ulcer of right heel and midfoot with other specified severity (L97.418) Active confirmed Problem Non-pressure chronic ulcer of other part of left foot with other specified severity (L97.528) Active confirmed Problem Ulcer of big toe (disorder) (967393022) Chronic ulcer of great toe of left foot with fat layer exposed (L97.522) Active confirmed Problem Ankle ulcer (729825220) Chronic ulcer of right ankle with fat layer exposed (L97.312) Active confirmed Problem Ankle ulcer (875708390) Ischemic ulcer of right ankle, 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) Active confirmed Problem Chronic ulcer of plantar surface of right midfoot with fat layer exposed (L97.412) Active confirmed Problem Chronic ulcer of left heel (disorder) (7076593202936880 5) Chronic ulcer of left heel limited to breakdown of skin (L97.421) Active confirmed Problem Ischemic ulcer o f left heel with fat layer exposed (L97.422) Active confirmed Encounters Encounter Location Date Provider Diagnosis [facility] [address] [place] [address] 04/26/2024 Natanael Feldman [facility] [address] [place] [address] 04/28/2024 Natanael [facility] Plan Of Treatment Pending Test Test Name [...] End Date [employer] [address] [address] [place] [id number] Trev Mckeon Self - patient is the insured
--- OUTSIDE RECORDS SUMMARY | 2024-11-22 09:50 | XMS_ITS | Clinical Summary ---
Author Organization [facility] Healthcare Address [address] [place] [address] Care Team Providers Care Pharmaceutical Analyst Name Role Phone Natalie Ryan MD Primary Care Provider [phone] Blossom Cody BI SPECIALIST Unavailable [phone] Allergies No known active allergies Medications aspirin [...] Inject 1.8 mg under the skin Daily 4 Active atorvastatin (Lipitor) 40 MG tabletIndications:Pur e hyperglyceridemia Take 1 tablet (40 mg) by mouth Daily 90 tablet 3 4 Active lisinopril 30 MG tabletIndications:Ess ential hypertension Take 1 tablet (30 mg) by mouth Daily 90 tablet 1 4 Active traZODone (Desyrel) 100 MG tabletIndications:Dep ressed mood,Insomnia, unspecified type Take 1 tablet (100 mg) by mouth as needed at bedtime for sleep 30 tablet 1 5 Active Active Problems Problem Noted Date Diagnosed Date Amputation of toe, traumatic, left, sequela ([facility] -HCC) 11/03/2023 Overview (11/03/2023): Lt forefoot Essential hypertension [...] AM EDT Office Visit [facility] [address] [place] [phone] Maria Fernanda Olguin, BI SPECIALIST 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); Essential hypertension; 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, sequela ([facility]-HCC); Amputation of toe, traumatic, left, sequela ([facility]); Morbid obesity ([facility]-HCC); Hypertriglyceridemia 10/19/2024 Marnio flowsheet [facility] [address] [place] [address] Maria Fernanda Olguin NP 10/19/2024 Travel from Last 3 Months Immunizations Immunization [...] any clubs o r organizations such as adventist groups, unions, fraternal or athletic groups, or [...] Upcoming Encounters Date Type Department Care Team ([facility] Contact Info) Description 01/31/2025 9:30 AM EDT Office Visit [facility] [address] [place] [phone] Maria Fernanda Olguin NP [address] [place], [place] [phone] Health Maintenance Due Date Last Done Comments CT Colonography 1980 Colonoscopy 1980 Colorectal Cancer Screening 1980 FIT-DNA 1980 FIT 1980 FOBT 1980 Sigmoidoscopy 1980 Influenza Vaccine (#1) 2025 , 03/24/2023, 03/28/2021, Additional history exists Insurance [employer] Care Teams Pharmaceutical Analyst Relationship Specialty Start Date End Date Natalie Ryan MD PCP - General Family Medicine 09/15/22 Blossom Cody NP Nurse Practitioner Family Medicine 01/19/24
--- OUTSIDE RECORDS SUMMARY | 2024-11-22 09:50 | XMS_ITS | Encounter Summary ---
Author Organization [facility] Address [address] [place] [address] Care Team Providers Care Shaker Repairer Name Role Phone Natalie Ryan MD Primary Care Provider [phone] Blossom Cody SOLE RUFFER Unavailable [phone] Encounter Details Date Type Department Care Team ([facility] Contact Info) Description 08/16/2024 Orders Only [facility] [address] [place] [address] Terence Glass MD [address] [place] [address] Social History Tobacco Use Types [...] any clubs o r organizations such as congregation groups, unions, fraternal or athletic groups, or [...] EDT Office Visit [facility] [address] [place] [phone] Maria Fernanda Olguin NP [address] [place], [place] [phone] documented as of this encounter Procedures Procedure [...] on filedocumented in this encounter Care Teams Shaker Repairer Relationship Specialty Start Date End Date Natalie Ryan MD PCP - General Family Medicine 09/15/22 Blossom Cody NP Nurse Practitioner Family Medicine 01/19/24 documented as of this encounter
--- OUTSIDE RECORDS SUMMARY | 2024-11-22 09:50 | XMS_ITS | Encounter Summary ---
Author Organization [facility] Address [address] [place] [address] Care Team Providers Care Construction Operations Manager Name Role Phone Natalie Hernandez MD Primary Care Provider [phone] Blossom Cody TILE LAYER Unavailable [phone] Encounter Details Date Type Department Care Team ([facility] st Contact Info) Description 04/26/2024 Clinisync [...] any clubs o r organizations such as alevism groups, unions, fraternal or athletic groups, or [...] place to sleep or slept in a skilled nursing (including now)? Patient refused 03/23/2023 Sex and [...] EDT Office Visit [facility] [address] [place] [address] Maria Fernanda Olguin, JENNYFER [address] [place] [address] documented as of this encounter Procedures Procedure [...] been received and testing has been initiated. [facility] ANAEROBIC CULT, EXTENDED INCUB Organism: Prevotella disiens : [facility] ANAEROBIC CULT, EXTENDED INCUB *ABNORMAL* TB ANAEROBIC CULT, EXTENDED INCUB Scant growth [facility] ANAEROBIC CULT, EXTENDED INCUB Studies at [employer] have confirmed the [facility] ANAEROBIC CULT, EXTENDED INCUB observations of others who have demonstrated that [facility] ANAEROBIC CULT, EXTENDED INCUB Prevotella, Porphyromonas and Bacteroides species [facility] ANAEROBIC CULT, EXTENDED INCUB other than Bacteroides fragilis group are routinely [facility] ANAEROBIC CULT, EXTENDED INCUB susceptible to Cefoxitin, Chloramphenicol, and [facility] ANAEROBIC CULT, EXTENDED INCUB Metronidazole and are usually resistant to Penicillin. [facility] ANAEROBIC CULT, EXTENDED INCUB Prevotella disiens [facility] ANAEROBIC CULT, EXTENDED INCUB O:PREDIS Isolated [facility] 04/26/2024 10:0 7 AM EST 04/26/2024 12:13 PM EST Narrative [facility] - 05/11/2024 4:08 PM EST us Generic External Data Provider LAB BLOOD ORDERAB LES Final Result [facility] * ANAEROBIC CULTURE (04/26/2024 10:07 AM EST) ANAEROBIC CULTURE Anaerobic Culture [facility] ANAEROBIC CULTURE Holding for possible anaerobes. TB ANAEROBIC CULTURE Organism: Prevotella disiens : [facility] ANAEROBIC CULTURE *ABNORMAL* TB ANAEROBIC CULTURE Light growth TB ANAEROBIC CULTURE Studies at [facility] have confirmed the [facility] ANAEROBIC CULTURE observations of others who have demonstrated that [facility] ANAEROBIC CULTURE Prevotella, Porphyromonas and Bacteroides species [...] ORDERAB LES Final Result Performing Organization Address City/[facility]/ZIP Co de Phone Number [facility] * FUNGUS (MYCOLOGY) CULTURE (04/26/2024 10:07 AM EST) FUNGUS (MYCOLOGY) CULTURE Fungus (Mycology) Culture WILL FOLLOW [facility] FUNGUS (MYCOLOGY) CULTURE No yeast or mold isolated after 4 weeks. [facility] FUNGUS (MYCOLOGY) CULTURE Performed at: [facility] FUNGUS (MYCOLOGY) CULTURE [address], [place] [id number] [facility] FUNGUS (MYCOLOGY) CULTURE Cleaning Technician: Lalo Everett PhD, Phone: [phone] [facility] 04/26/2024 10:0 7 AM EST 04/26/2024 12:13 PM EST Narrative CLINISYNC - 05/25/2024 12:08 PM EST Comment right foot ulcer Generic External Data Provider LAB BLOOD ORDERAB LES Final Result [facility] * FUNGUS STAIN (04/26/2024 10:07 AM EST) FUNGUS STAIN Fungus Stain [facility] FUNGUS STAIN SHAQ/Calcofl uor preparation : no fungus observed. [facility] 04/26/2024 10:0 7 AM EST 04/26/2024 12:13 PM EST Narrative [facility] - 05/25/2024 12:08 PM EST Comment right foot ulcer Generic External Data Provider LAB BLOOD ORDERAB LES Final Result Performing Organization Address [facility] Co de Phone Number ADELA [facility] * FUNGUS (MYCOLOGY) CULTURE (04/26/2024 10:07 AM EST) FUNGUS (MYCOLOGY) CULTURE Fungus (Mycology) Culture WILL FOLLOW [facility] FUNGUS (MYCOLOGY) CULTURE No yeast or mold isolated after 4 weeks. [facility] FUNGUS (MYCOLOGY) CULTURE Performed at: [facility] FUNGUS (MYCOLOGY) CULTURE [address], [place] [id number] [facility] FUNGUS (MYCOLOGY) CULTURE Cleaning Technician: Lalo Everett PhD, Phone: [phone] [facility] 04/26/2024 10:0 7 AM EST 04/26/2024 12:13 PM EST Narrative CLIN[facility]YNC - 05/25/2024 12:08 PM EST Comment right foot fascia for culture Generic External Data Provider LAB BLOOD ORDERAB LES Final Result Performing Organization Address [facility] Phone Number [facility] * FUNGUS STAIN (04/26/2024 10:07 AM EST) FUNGUS STAIN Fungus Stain TB FUNGUS STAIN SHAQ/Calcofl uor preparation : no fungus observed. [facility] 04/26/2024 10:0 7 AM EST 04/26/2024 12:13 PM EST Narrative CL[facility]YNC - 05/25/2024 12:08 PM EST Comment right foot fascia for culture [facility] External Data Provider LAB BLOOD ORDERAB LES Final Result Performing Organization Address [facility] Co de Phone Number [facility] * GRAM STAIN RESULT (04/26/2024 10:07 AM EST) GRAM STAIN RESULT Gram Stain Result TB GRAM STAIN RESULT No white blood cells seen. [facility] GRAM STAIN RESULT TB GRAM STAIN RESULT Rare gram positive cocci [facility] GRAM STAIN RESULT Performed at: [facility] TB GRAM STAIN RESULT [address], [place] [id number] TB GRAM STAIN RESULT Cleaning Technician: Lalo Everett PhD, Phone: [phone] [facility] 04/26/2024 10:0 7 AM EST 04/26/2024 12:13 PM EST Narrative CLINISYNC - 05/02/2024 3:08 PM EST Generic External Data Provider LAB BLOOD ORDERAB LES Final Result Performing Organization Address [facility] Phone Number [facility] * AEROBIC CULTURE (04/26/2024 10:07 AM EST) AEROBIC CULTURE Aerobic Culture WILL FOLLOW TB AEROBIC CULTURE TB AEROBIC CULTURE Mixed skin maximiliano TB 04/26/2024 10:0 7 AM EST 04/26/2024 12:13 PM EST Narrative CLINISYNC - 05/02/2024 3:08 PM EST Generic External Data Provider LAB BLOOD ORDERAB LES Final Result Performing Organization Address [facility] Phone Number [facility] * ACID FAST CULTURE (04/26/2024 10:07 AM EST) ACID FAST CULTURE Acid Fast Culture Specimen has been received and testing has been initiated. [facility] ACID FAST CULTURE Negative [facility] ACID FAST CULTURE No acid fast bacilli isolated after 6 weeks. TB ACID FAST CULTURE Performed at: [facility] TB ACID FAST CULTURE [address], [place] [id number] TB ACID FAST CULTURE Cleaning Technician: Lalo Everett PhD, Phone: [phone] [facility] 04/26/2024 10:0 7 AM EST 04/26/2024 12:13 PM EST Narrative CLINISYNC - 06/10/2024 9:09 AM EST Generic External Data Provider LAB BLOOD ORDERAB LES Final Result Performing Organization Address [facility]/State/ZIP Co de Phone Number [facility] * ACID FAST SMEAR (04/26/2024 10:07 AM EST) ACID FAST SMEAR Acid Fast Smear Negative [facility] 04/26/2024 10:0 7 AM EST 04/26/2024 12:13 PM EST Narrative CLINISYNC - 06/10/2024 9:09 AM EST Generic External Data Provider LAB BLOOD ORDERAB LES Final Result Performing Organization Address [facility] Co de Phone Number [facility] * AFB SPECIMEN PROCESSING (04/26/2024 10:07 AM EST) AFB SPECIMEN PROCESSING AFB Specimen Processing [facility] AFB SPECIMEN PROCESSING Tissue Grinding [facility] 04/26/2024 10:0 7 AM EST 04/26/2024 12:13 PM EST Narrative CLINISYNC - 06/10/2024 9:09 AM EST Generic External Data Provider LAB BLOOD ORDERAB LES Final Result Performing Organization Address [facility] de Phone Number [facility] * TISSUE CULTURE (04/26/2024 10:07 AM EST) Pathologist [facility] TISSUE CULTURE Tissue Culture WILL FOLLOW [facility] TISSUE CULTURE [facility] TISSUE CULTURE Specimen has been received and testing has been initiated. [facility] 04/26/2024 10:0 7 AM EST 04/26/2024 12:13 PM EST Narrative CLINISYNC - 05/11/2024 4:08 PM EST Generic External Data Provider LAB BLOOD ORDERAB LES Final Result Performing Organization Address [facility] de Phone Number [facility] * GRAM STAIN RESULT (04/26/2024 10:07 AM EST) GRAM STAIN RESULT Gram Stain Result TB GRAM STAIN RESULT No white blood cells seen. TB GRAM STAIN RESULT TB GRAM STAIN RESULT No organisms seen TB GRAM STAIN RESULT Performed at: [facility] TB GRAM STAIN RESULT [address], [place] [id number] TB GRAM STAIN RESULT Cleaning Technician: Lalo Everett PhD, Phone: [phone] [facility] 04/26/2024 10:0 7 AM EST 04/26/2024 12:13 PM EST Narrative CLINISYNC - 05/11/2024 4:08 PM EST Generic External Data Provider LAB BLOOD ORDERAB LES Final Result Performing Organization Address [facility] Co de Phone Number [facility] * ACID FAST CULTURE (04/26/2024 10:07 AM EST) ACID FAST CULTURE Acid Fast Culture Specimen has been received and testing has been initiated. [facility] ACID FAST CULTURE Negative [facility] ACID FAST CULTURE No acid fast bacilli isolated after 6 weeks. TB ACID FAST CULTURE [facility]formed at[facility] ACID FAST CULTURE [address], [place] [phone] [facility] ACID FAST CULTURE Cleaning Technician: Lalo Everett PhD, Phone: [phone] [facility] 04/26/2024 10:0 7 AM EST 04/26/2024 12:13 PM EST Narrative CLINISYNC - 06/10/2024 9:09 AM EST Comment right foot fascia for culture Generic External Data Provider LAB BLOOD ORDERAB LES Final Result Performing Organization Address [facility] Co de Phone Number [facility] * ACID FAST SMEAR (04/26/2024 10:07 AM EST) ACID FAST SMEAR Acid Fast Smear Negative TB 04/26/2024 10:0 7 AM EST 04/26/2024 12:13 PM EST Narrative CLINISYNC - 06/10/2024 9:09 AM EST Comment right foot fascia for culture us Generic External Data Provider LAB BLOOD ORDERAB LES Final Result Performing Organization Address City/[facility]/ZIP Co de Phone Number [facility] * AFB SPECIMEN PROCESSING (04/26/2024 10:07 AM EST) AFB SPECIMEN PROCESSING AFB Specimen Processing [facility] AFB SPECIMEN PROCESSING Tissue Grinding [facility] 04/26/2024 10:0 7 AM EST 04/26/2024 12:13 PM EST Narrative ADELA - 06/10/2024 9:09 AM EST Comment right foot fascia for culture us Generic External Data Provider LAB BLOOD ORDERAB LES Final Result [facility] * XR FOOT RT MIN 3V (04/26/2024 9:03 AM EST) Anatomical Region Laterality Modality Other 04/26/2024 9:03 AM EST Narrative 04/26/2024 9:06 [place] [address] XRay Report Signed Patient: TREV MCKEON MR#: [id number] : 1980 Acct:[id number] Age/Sex: 43 / M ADM Date: 04/25/24 Loc: Attending Dr: Martell Navas Ordering Physician: Martell Navas Date of Service: 04/25/24 Procedure(s): XR foot RT min 3V Accession Number(s): [id number] cc: Martell Navas; NATALIE HERNANDEZ [place] [id number] Patient Name: TREV MCKEON MRN: [facility]:[id number] date: 1980 Sex: M Assigned Patient Location: Current Patient Location: [place] Accession/Order Number: [id number] Exam Date: 04/25/2024 11:58 Report Date: 04/26/2024 [...] M.D. Signed By: 04/26/24905 DD/ 2 TD/TT: Resident Services Director: Procedure Note Radiology, Radiologist, MD - 04/26/2024 [place] [address] XRay Report Signed Patient: TREV MCKEON BMR#: [id number] : 1980Acct:[id number] Age/Sex: 43 / MADM Date: 04/25/24 Loc: Attending Dr: Martell Navas Ordering Physician: Martell Navas Date of Service: 04/25/24 Procedure(s): XR foot RT min 3V Accession Number(s): [id number] cc: Martell Navas; NATALIE HERNANDEZ [place] [id number] Patient Name: TREV MCKEON MRN: [facility]:[id number] date: 1980 Sex: M Assigned Patient Location: Current Patient Location: ID Accession/Order Number: [id number] Exam Date: 04/25/2024 11:58 Report Date: 04/26/2024 [...] whichmay indicate early osteomyelitis. Electronically authenticated by: EKNY NAYAK Date: 04/26/2024 09:03 Dictated By: Keny Nayak M.D. Signed By:04/26/24905 DD/ 2 TD/TT: Resident Services Director: us Generic External Data Provider [facility] Final Result documented in this encounter Visit Diagnoses Not on filedocumented in this encounter Care Teams Construction Operations Manager Relationship Specialty Start Date End Date Natalie Hernandez MD PCP - General Family Medicine 09/15/22 Blossom Cody NP Nurse Practitioner Family Medicine 01/19/24 documented as of this encounter
--- OUTSIDE RECORDS SUMMARY | 2024-11-22 09:50 | XMS_ITS | Encounter Summary ---
Author Organization [facility] Address [address] [place] [address] Care Team Providers Care Digital Marketing Analyst Name Role Phone Natalie Ryan MD Primary Care Provider [phone] Blossom Cody DIVERSIFIED CROPS FARMWORKER Unavailable [phone] Encounter Details Date Type Department Care Team ([facility] Contact Info) Description 10/20/2023 Orders Only [facility] [address] [place] [address] Link Ortega DIVERSIFIED CROPS FARMWORKER [address] [place] [address] Social History Tobacco Use Types [...] often do you attend chur ch or bahai services? More than 4 times per year 03/23/2023 Do you belong to any clubs o r organizations such as pentecostal groups, unions, fraternal or athletic groups, or [...] EDT Office Visit [facility] [address] [place] [address] Maria Fernanda Olguin NP [address] [place], [place] [id number] documented as of this encounter Procedures Procedure [...] on filedocumented in this encounter Care Teams Digital Marketing Analyst Relationship Specialty Start Date End Date Natalie Ryan MD PCP - General Family Medicine 09/15/22 Blososm Cody NP Nurse Practitioner Family Medicine 01/19/24 documented as of this encounter
--- OUTSIDE RECORDS SUMMARY | 2024-11-22 09:50 | XMS_ITS | Encounter Summary ---
Author Organization [facility] Address [address] [place] [address] Care Team Providers Care Tanker Service Attendant Name Role Phone Natalie Ryan MD Primary Care Provider [phone] Blossom Cody SPRAY DRIER OPERATOR Unavailable [phone] Encounter Details Date Type Department Care Team ([facility] Contact Info) Description 08/21/2024 Orders Only [facility] [address] [place] [address] Link Ortega SPRAY DRIER OPERATOR [address] [place] [address] Social History Tobacco Use Types [...] any clubs o r organizations such as adventism groups, unions, fraternal or athletic groups, or [...] place to sleep or slept in a detention (including now)? Patient refused 03/23/2023 Sex and Gender Information Value Date Recorded Sex Assigned at Not on file Legal Sex Male 6:33 PM EDT Gender Identity Not on file Sexual Orientation Not on file documented as of this encounter Plan of Treatment Upcoming Encounters Date Type Department Care Team (Late st Contact Info) Description 01/31/2025 9:30 AM EDT Office Visit [facility] [address] [place] [address] Maria Fernanda Olguin NP [address] [place], [place] [phone] documented as of this encounter Procedures Procedure [...] on filedocumented in this encounter Care Teams Tanker Service Attendant Relationship Specialty Start Date End Date Natalie Ryan MD PCP - General Family Medicine 09/15/22 Blossom Cody NP Nurse Practitioner Family Medicine 01/19/24 documented as of this encounter
--- OUTSIDE RECORDS SUMMARY | 2024-11-22 09:50 | XMS_ITS | Encounter Summary ---
Author Organization [facility] Address [address] [place] [address] Care Team Providers Care Production Proofreader Name Role Phone Natalie Ryan MD Primary Care Provider [phone] Blossom Cody CENTRAL OFFICE TROUBLE SHOOTER Unavailable [phone] Encounter Details Date Type Department Care Team ([facility] Contact Info) Description 12/24/2023 Orders Only [facility] [address] [place] [address] Terence Glass MD [address] [place] [address] Social History Tobacco Use Types [...] often do you attend chur ch or hoahaoism services? More than 4 times per year [...] EDT Office Visit [facility] [address] [place] [phone] Maria Fernanda Olguin NP [address] [place], [place] [phone] documented as of this encounter Procedures Procedure [...] on filedocumented in this encounter Care Teams Production Proofreader Relationship Specialty Start Date End Date Shelby, Natalie Lozada MD PCP - General Family Medicine 09/15/22 Blossom Cody NP Nurse Practitioner Family Medicine 01/19/24 documented as of this encounter
--- OUTSIDE RECORDS SUMMARY | 2024-11-22 09:50 | XMS_ITS | Encounter Summary ---
Author Organization [facility] Address [address] [place] [address] Care Team Providers Care Inspector Integrated Circuits Name Role Phone Natalie Ryan MD Primary Care Provider [phone] Blossom Cody PANEL EDGE PAINTER Unavailable [phone] Encounter Details Date Type Department Care Team ([facility] Contact Info) Description 06/09/2023 Orders Only [facility] [address] [place] [address] Link Ortega PANEL EDGE PAINTER [address] [place] [address] Social History Tobacco Use Types [...] often do you attend chur ch or anglican services? More than 4 times per year [...] AM EDT Office Visit [facility] [address] [place] [address] Maria eFrnanda Olguin NP [address] [place], [place] [address] documented as of this encounter Procedures Procedure [...] on filedocumented in this encounter Care Teams Inspector Integrated Circuits Relationship Specialty Start Date End Date Natalie Ryan MD PCP - General Family Medicine 09/15/22 Blossom Cody NP Nurse Practitioner Family Medicine 01/19/24 documented as of this encounter
--- OUTSIDE RECORDS SUMMARY | 2024-11-22 09:50 | XMS_ITS | Encounter Summary ---
Author Organization [facility] Address [address] [place] [address] Care Team Providers Care Floor Person Name Role Phone Eric Hernandez MD Primary Care Provider [phone] Blossom Cody FLIGHT ATTENDANT/INFLIGHT SUPERVISOR Unavailable [phone] Encounter Details Date Type Department Care Team ([facility] st Contact Info) Description 11/02/2023 [...] often do you attend chur ch or synagogue services? More than 4 times per year 03/23/2023 Do you belong to any clubs o r organizations such as buddhist groups, unions, fraternal or athletic groups, or [...] AM EDT Office Visit [facility] [address] [place] [address] Maria Fernanda Olguin NP [address] [place] [address] documented as of this encounter Procedures Procedure Name Priority Date/Time Associated Diagnosis Comments XR FOOT RT MIN 3V 11/02/2023 1:1 0 PM EDT documented in this encounter Results * XR FOOT RT MIN 3V (11/02/2023 1:10 PM EDT) Anatomical Region Laterality Modality Other 11/02/2023 1:10 PM EDT Narrative 11/02/2023 1:12 [place] [address] XRay Report Signed Patient: TREV MCKEON MR#: [id number] : 1980 Acct:[id number] Age/Sex: 43 / M ADM Date: 11/02/23 Loc: Attending Dr: Alex Johnson D.P.M. Ordering Physician: Alex Johnson D.P.M. Date of Service: 11/02/23 Procedure(s): XR foot RT min 3V Accession Number(s): [id number] cc: Alex Johnson D.P.M.; ERIC HERNANDEZ [address] [address] Patient Name: TREV MCKEON MRN: [facility]:[id number] date: 1980 Sex: M Assigned Patient Location: Current Patient Location: Accession/Order Number: [id number] Exam Date: 11/02/2023 11:13 Report Date: 11/02/2023 [...] Signed By: 11/02/23 1312 DD/ 1310 TD/TT: Marble Chip Terrazzo Worker: Procedure Note Radiology, Radiologist, MD - 11/02/2023 [place] [address] XRay Report Signed Patient: TREV MCKEON BMR#: [id number] : 1980Acct:[id number] Age/Sex: 43 / MADM Date: 11/02/23 Loc: Attending Dr: Alex Johnson D.P.M. Ordering Physician: Alex Johnson D.P.M. Date of Service: 11/02/23 Procedure(s): XR foot RT min 3V Accession Number(s): [id number] cc: Alex Johnson D.P.M.; ERIC HERNANDEZ [place] [address] Patient Name: TREV MCKEON MRN: [id number] date: 1980 Sex: M Assigned Patient Location: Current Patient Location: Accession/Order Number: [id number] Exam Date: 11/02/2023 11:13 Report Date: 11/02/2023 [...] M.D. Signed By:11/02/23 1312 DD/ 1310 TD/TT: Marble Chip Terrazzo Worker: Generic External Data Provider [facility] Final Result documented in this encounter Visit Diagnoses Not on filedocumented in this encounter Care Teams Floor Person Relationship Specialty Start Date End Date Eric Hernandez MD PCP - General Family Medicine 09/15/22 Blossom Cody NP Nurse Practitioner Family Medicine 01/19/24 documented as of this encounter
--- OUTSIDE RECORDS SUMMARY | 2024-11-22 09:50 | XMS_ITS | Clinical Summary ---
Author Organization Wrnch tem Address [id number] [place] [address] Care Team Providers Care Body And Frame Technician Name Role Phone Natalie Ryan MD Primary Care Provider [phone] Allergies No known active allergies Medications insulin [...] each 8 Active lancets (ACCU-CHEK MULTICLIX LANCET) [facility] blood glucose check 100 each 8 Active [...] DIRECTED 11 8 Active ONETOUCH VERIO SYSTEM [facility] See Admin Instructions. 0 8 Active insulin [...] 5:45 AM 03/30/2018 7:23 PM Care Teams Body And Frame Technician Relationship Specialty Start Date End Date Natalie Ryan MD [address] [place] [address] PCP - General Family Medicine 03/26/18
--- OUTSIDE RECORDS SUMMARY | 2024-11-22 10:11 | XMS_ITS | CCD ---
Author Organization [facility] Care Team Providers Care [place] Name Role Phone Link Ortega Unavailable NATANAEL [...] Care Provider MD Damon Claros Attending Provider [phone] MD Shelby [facility] Care Provider Natalie Hernandez MD Primary Care Provider Blossom Cody NP Unavailable [phone] Natalie Hernandez Primary Care Unavailable Francia, Natanael Marks Admitting Unavailable Francia, Natanael Marks Attending Unavailable [place], [facility] Care Unavailable Damon Claros Admitting Unavailable Damon Claros Attending Unavailable Shelby [facility] Provider Natanael Feldman DPM Attending Provider [phone] Natalie Hernandez MD Primary Care Provider Blossom Cody NP Unavailable [phone] BLOSSOM CODY Attending Unavailable APRYL GRANADOS Attending Unavailable MIRLANDE MOORE Attending Unavailable BLOSSOM CODY Attending Unavailable BLOSSOM CODY Attending Unavailable Medications [...] (Lipitor) 40 MG tablet Indications: Pure hyperglyceridemia Take 1 tablet (40 mg) by mouth Daily 90 tablet 3 02/28/2024 Active dapagliflozin 10 mg oral tablet (19 sources) Sodium-Glucose Cotransporter 2 Inhibitor Start: 10-19-2023 End: 10-19-2024 dapagliflozin (Farxiga) 10 MG 01/17/2024 10/19/2024 Discontinued (Discontinued by another clinician) ertugliflozin 15 mg oral tablet (12 sources) take 1 tablet by mouth in the morning Steglatro Take 1 tablet by mouth in the morning. 0 Active insulin glargine 100 unt/ml injectable solution (20 sources) Insulin Analog inject 44 [IU] by [...] pen Discontinued 44 UNIT SUBCUT Twice daily July 24, 2024 12:00am August 21, 2024 [...] Active insulin lispro (HumaLOG) 100 UNIT/ML injection (20 sources) insulin lispro ( HumaLOG) 100 UNIT/ML [...] SUBCUT .COMPLEX 60 January 26, 2024 10:37am February 28, 2024 10:12am subcutaneously; 1:4 carb ratio ac tid. 1:15 corrective scale ac tid (hs if >200 half dose) as directed; (expect up to 60 units/day) Start: 01-26-2024 End: 02-28-2024 Insulin Lispro 100 unit/mL s olution Discontinued 0 SUBCUT .COMPLEX January 26, 2024 9:37am February 28, 2024 [...] 3 ml liraglutide 6 mg/ml pen injector (20 sources) GLP-1 Receptor Agonist Start: 10-19-2023 inject [...] lisinopril 30 MG tablet Indications: Essential hypertension Take 1 tablet (30 mg) by mouth Daily 90 tablet 1 04/19/2024 Active End: 06-16-2023 take 1 tablet by [...] Active traZODone hydrochloride 100 mg oral tablet (8 sources) Serotonin Reuptake Inhibitor Start: 06-14-2024 End: 08-21-2024 traZODone (Desyrel) 100 MG tablet Indications: Depressed mood , Insomnia, unspecified type Take 1 tablet (100 mg) by mouth as needed at bedtime for sleep 30 tablet 1 07/19/2024 Active urea 400 mg/ml topical cream (15 sources) Start: 12-01-2023 End: 10-19-2024 urea (Carmol) 40 % cream APPLY TO THE AFFECTED AREA ON BOTH FEET EVERY DAY DIRECTED 12/01/2023 10/19/2024 Discontinued (Therapy completed) Completed/Discontinued Medications Medication Drug Class(es) Dates Sig [...] solution Discontinued 44 UNIT SUBCUT Twice daily February 28, 2024 9:56am July 24, 2024 [...] 10-02-2022 10-02-2022 Chronic Open wounds of extremities (17 sources) Traumatic amputation of toe; Translations: [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, sequela] Onset: 11-03-2023 11-03-2023 Chronic Open wounds of extremities (12 sources) Unspecified open wound, unspecified foot, initial encounter; Translations: [Injury of left foot] Episodic Osteoarthritis (20 sources) Arthritis of left foot; Translations: [Primary osteoarthritis, left ankle and foot] Onset: 10-02-2022 10-02-2022 Chronic Other aftercare (13 sources) Long-term current use of insulin; Translations: [FPC (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] 06-17-2023 Episodic Other aftercare (4 sources) 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 Onset: 01-06-2022 Resolved: 01-06-2022 Episodic Other aftercare (1 source) Drug therapy finding; Translations: [FPC (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 antibiotics] 06-14-2024 Episodic Other aftercare (1 source) FPC (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 antibiotics; Translations: [Long-term (current) [...] Resolved: 01-06-2022 Episodic Other infections; including parasitic (20 sources) Personal history of other infectious and parasitic diseases; Translations: [History of COVID-19] Onset: 05-13-2020 Resolved: 06-17-2023 10-02-2022 Episodic Other non-traumatic joint disorders (1 source) Pain in left ankle and joints of left foot; Translations: [PAIN IN LEFT ANKLE] Onset: 06-24-2022 Episodic Other nutritional; endocrine; and metabolic disorders (20 sources) H/O: Disorder; Translations: [Personal history of other endocrine, nutritional and metabolic disease] Onset: 04-13-2018 Resolved: 06-17-2023 03-22-2023 Episodic Other skin disorders (5 sources) Corns and callosities; Translations: [CORNS AND CALLOSITIES] Onset: 12-15-2021 Episodic Superficial injury; contusion (4 sources) Blister (nonthermal), right foot, initial encounter; Translations: [BLISTER NONTHERMAL RT FOOT INITIAL] Onset: 12-29-2021 Episodic Results Test Name Value Interpretation Reference Range Facility [facility] 04-26-2024 L Specimen: [id number] Received: 04/26/24 Status: CALEB Gabriel Num: [id number] Spec Type: Surgical Subm Dr: Natanael Feldman DPM, Tissues: A Skin-Other than Cyst, tag, debridement or plastic repair (RT FOOT ULCER) Procedures: Yenny SCOTT/Mary Robles Age/ Patient Sex Location Account Attending Physician Trev Ontiveros 43/M LABELL [id number] Natanael Feldman DPM, MS SPEC NUM: [id number] RECD: 04/26/24 STATUS: CALEB GABRIEL NUM: [id number] MARTHA: 04/26/[address]: Natanael Feldman,KARISHMA, MS ENTERED: 04/26/[address] [facility] DR: Farzana Rene SPEC TYPE: Surgical DEPT: DERRICK PLUNKETT ENTERED BY: [id number] RECV BY: [id number] ORDERED: HE, Gross/Micro L4 ORDERED: HE, Gross/Micro [...] reveal purple-brown to green, softened cut surfaces. Spa Concierge sections are submitted in a single cassette. (1, ss, [id number] A) CPT Codes 88234 Specimen: [id number] Received: 04/26/24 Status: CALEB Nery Num: [id number] Spec Type: Surgical Subm Dr: Natanael Feldman DPM, MS Tissues: A Skin-Other than Cyst, tag, debridement or plastic repair (RT FOOT ULCER) Procedures: HE, Gross/Micro L4 Patient: Trev Ontiveros [id number] (Continued) Signed (signature on file) Melanie Roca MD 04/27/24 2046 Normal [facility] A1C HEMOGLOBINon 06-09-2023 HbA1c (Bld) [Mass fraction] 8.2 % [employer] Other Glucose - FINGER STICKon Glucose [Mass/Vol] 170 mg/dL [employer] Other HbA1c (Bld) [Mass fraction]o n 06-09-2023 A1C HEMOGLOBIN [employer] Other A1C HEMOGLOBINon 01-04-2023 HbA1c (Bld) [Mass fraction] 8.9 % [employer] Other Glucose - FINGER STICKon Glucose [Mass/Vol] 201 mg/dL [employer] Other HbA1c (Bld) [Mass fraction]o n 01-04-2023 A1C HEMOGLOBIN [employer] Other PROF CHEM 8 (BAS METB)on Anion gap [Moles/Vol] 14.3 mmol/L Normal [facility] Comment on above: Performed By: #### B MP #### [facility] [address] [address] [address] Lauri Todd Calcium [Mass/Vol] 9.4 mg/dL Normal 8.5-10.1 [facility] Comment on above: Performed By: #### B MP #### [facility] [address] [place] [address] Dr. Lauri Todd Chloride [Moles/Vol] 101 mmol/L Normal 98-107 [facility] Comment on above: Performed By: #### B MP #### [facility] [address] [address] [address] Lauri Todd CO2 [Moles/Vol] 26.2 mmol/L Normal 21.0-32.0 [facility] Comment on above: Performed By: #### B MP #### [facility] [address] [place] [address] Dr. Lauri Todd Creatinine [Mass/Vol] 0.90 mg/dL Normal 0.70-1.30 [facility] Comment on above: Performed By: #### B MP #### [facility] [address] [place] [address] Dr. Lauri Todd EGFR-AF ARGENTINE >60 Normal >=60 [facility] Comment on above: Performed By: #### B MP #### [facility] [address] [place] [address] Dr. Lauri Todd EGFR-NON AF ARGENTINE >60 Normal >=60 [facility] Comment on above: Performed By: #### B MP #### [facility] [address] [place] [address] Dr. Lauri Todd Glucose [Mass/Vol] 146 mg/dL Critically high 74-106 [facility] Comment on above: Performed By: #### B MP #### [facility] [address] [address] [address] Lauri Todd Potassium [Moles/Vol] 4.5 mmol/L Normal 3.5-5.1 [facility] Comment on above: Performed By: #### B MP #### [facility] [address] [place] [address] Dr. Lauri Todd Sodium [Moles/Vol] 137 mmol/L Normal 136-145 [facility] Comment on above: Performed By: #### B MP #### [facility] [address] [place], [place] [address] Dr. Lauri Todd Urea nitrogen [Mass/Vol] 16.0 mg/dL Normal 7.0-18.0 [facility] Comment on above: Performed By: #### B MP #### [facility] [address] [place], [place] [address] Dr. Lauri Todd Urea nitrogen/Creatinin e [Mass ratio] 17.8 mg/mg Normal [facility] Comment on above: Performed By: #### B MP #### [facility] [address] [place], [place] [address] Dr. Lauri Todd A1C HEMOGLOBINon 06-25-2022 HbA1c (Bld) [Mass fraction] 8.2 % [employer] Other Glucose - FINGER STICKon Glucose [Mass/Vol] 180 mg/dL [employer] Other HbA1c (Bld) [Mass fraction]o n 06-25-2022 A1C HEMOGLOBIN [employer] Other XR FOOT LT MIN 3 VIEWSon [...] 01-06-2022 HbA1c (Bld) [Mass fraction] 7 % [facility] [employer] Other Glucose - FINGER STICKon Glucose [Mass/Vol] 148 mg/dL [facility] [employer] Other HbA1c (Bld) [Mass fraction]o n 01-06-2022 A1C HEMOGLOBIN [facility] [employer] Other Basic Metabolic Panelon 08-08 Anion gap [Moles/Vol] 20 mmol/L Normal 12-20 [facility] Comment on above: Result Comment: Effe ctive 05/15/2019 reference range changed. Performed By: #### B MP #### [facility] [address], [place] [id number] Calcium [Mass/Vol] 10.0 mg/dL Normal 8.6-10.2 [facility] Comment on above: Performed By: #### B MP #### [facility] [address], [place] [id number] Chloride [Moles/Vol] 100 mmol/L Normal 98-107 [facility] Comment on above: Performed By: #### B MP #### [facility] [address], [place] [id number] CO2 [Moles/Vol] 22 mmol/L Normal 20-31 [facility] Comment on above: Performed By: #### B MP #### [facility] [address], [place] [id number] Creatinine [Mass/Vol] 0.8 mg/dL Normal 0.7-1.4 [facility] Comment on above: Performed By: #### B MP #### [facility] [address], [place] [id number] eGFRAA 129 mL/min/1.73m2 Normal >60 [facility] Comment on above: Performed By: #### B MP #### [facility] [address], [place] [id number] eGFRNAA 107 mL/min/1.73m2 Normal >60 [facility] Comment on above: Performed By: #### B MP #### [facility] [address] [place], [place] [id number] Glucose [Mass/Vol] 140 mg/dL High 65-99 [facility] [place] [employer] Comment on above: Result Comment: For FASTING Glucose --- ADA reference ranges: Normal 65-99 mg/dl Prediabetes 100-125 Diabetes >/= 126 Performed By: #### B MP #### [facility] [address], [place] [id number] Potassium [Moles/Vol] 4.3 mmol/L Normal 3.5-5.5 [facility] Comment on above: Performed By: #### B MP #### [facility] [address], [place] [id number] Sodium [Moles/Vol] 137 mmol/L Normal 135-146 [facility] [place] [employer] Comment on above: Performed By: #### B MP #### [facility] [address], [place] [id number] Urea nitrogen [Mass/Vol] 17 mg/dL Normal 7-25 [facility] [employer] Comment on above: Performed By: #### B MP #### [facility] [address], [place] [id number] Vital Signs Date Time Vital Sign Value Performing Clinician Facility 10-19-2024 09:51-0400 Body mass index (BMI) [Ratio] 51.08 kg/m2 Apryl Granados [employer] Work Phone: [facility] 10-19-2024 09:51-0400 Body weight 168.47 kg Apryl Granados [employer] Work Phone: [facility] 10-19-2024 09:51-0400 Diastolic blood pressure 86 mm[Hg] Apryl Granados [employer] Work Phone: [facility] 10-19-2024 09:51-0400 Heart rate 76 /min Apryl Granados [employer] Work Phone: [facility] 10-19-2024 09:51-0400 Systolic blood pressure 130 mm[Hg] Apryl Granados [employer] Work Phone: [facility] 08-21-2024 09:08-0400 Diastolic blood pressure 74 mm[Hg] [facility] 08-21-2024 09:08-0400 Systolic blood pressure 129 mm[Hg] [facility] 08-21-2024 09:07-0400 Body height 182.88 cm [facility] 08-21-2024 09:07-0400 Body mass index (BMI) [Ratio] 50.5 kg/m2 [facility] 08-21-2024 09:07-0400 Body weight 169 kg [facility] 08-21-2024 09:07-0400 Heart rate 87 /min [facility] 08-21-2024 09:07-0400 Respiratory rate 18 /min [facility] 08-21-2024 09:07-0400 SaO2% (BldA) [Mass fraction] 97 % [facility] 07-19-2024 09:57-0400 Diastolic blood pressure 80 mm[Hg] Blossom Cody [employer] Work Phone: [facility] 07-19-2024 09:57-0400 Systolic blood pressure 138 mm[Hg] Blossom Glo [employer] Work Phone: [facility] 07-19-2024 09:22-0400 Body mass index (BMI) [Ratio] 50.03 kg/m2 Blossom Glo [employer] Work Phone: [facility] 07-19-2024 09:22-0400 Body weight 165.02 kg Blossom Glo [employer] Work Phone: [facility] 07-19-2024 09:22-0400 Heart rate 80 /min Blossom Glo [employer] Work Phone: [facility] 06-14-2024 14:55-0500 Body height 182.88 cm Natalie Hernandez MD Work Phone: [facility] 06-14-2024 14:55-0500 Body mass index (BMI) [Ratio] 48.8 kg/m2 Natalie Hernandez MD Work Phone: [facility] 06-14-2024 14:55-0500 Body temperature 98.1 [degF] Natalie Hernandez MD Work Phone: [facility] 06-14-2024 14:55-0500 Body weight 163.29 kg Natalie Hernandez MD Work Phone: [facility] 06-14-2024 14:55-0500 Diastolic blood pressure 75 mm[Hg] Natalie Hernandez MD Work Phone: [facility] 06-14-2024 14:55-0500 Heart rate 104 /min Natalie Hernandez MD Work Phone: [facility] 06-14-2024 14:55-0500 Systolic blood pressure 124 mm[Hg] Natalie Hernandez MD Work Phone: [facility] 04-19-2024 09:47-0500 Body mass index (BMI) [Ratio] 52.21 kg/m2 Blossom Glo [employer] Work Phone: [facility] 04-19-2024 09:47-0500 Body weight 172.19 kg Blossom Glo [employer] Work Phone: [facility] 04-19-2024 09:47-0500 Diastolic blood pressure 72 mm[Hg] Blossom Glo [employer] WORK[employer] Work Phone: [facility] 04-19-2024 09:47-0500 Heart rate 84 /min Blossom Glo [employer] WORK[employer] Work Phone: [facility] 04-19-2024 09:47-0500 Systolic blood pressure 128 mm[Hg] Blossom Glo [employer] WORK[employer] Work Phone: [facility] 01-26-2024 09:59-0400 Body height 182.88 cm [facility] 01-26-2024 09:59-0400 Body mass index (BMI) [Ratio] 51.2 kg/m2 [facility] 01-26-2024 09:59-0400 Body weight 171.54 kg [facility] 01-26-2024 09:59-0400 Diastolic blood pressure 83 mm[Hg] [facility] 01-26-2024 09:59-0400 Heart rate 81 /min [facility] 01-26-2024 09:59-0400 Respiratory rate 18 /min [facility] 01-26-2024 09:59-0400 SaO2% (BldA) [Mass fraction] 94 % [facility] 01-26-2024 09:59-0400 Systolic blood pressure 155 mm[Hg] [facility] 01-19-2024 11:00-0400 Body mass index (BMI) [Ratio] 51.82 kg/m2 Blossom Cody [employer] Work Phone: [facility] 01-19-2024 11:00-0400 Body weight 170.91 kg Blossomdidier Lozoyael [employer] Work Phone: [facility] 01-19-2024 11:00-0400 Diastolic blood pressure 78 mm[Hg] Blossom Glo [employer] Work Phone: [facility] 01-19-2024 11:00-0400 Heart rate 84 /min Blossom Glo [employer] Work Phone: [facility] 01-19-2024 11:00-0400 Systolic blood pressure 136 mm[Hg] Blossomdidier Lozoyael [employer] Work Phone: [facility] 10-19-2023 11:31-0400 Body height 182.88 cm [facility] 10-19-2023 11:31-0400 Body mass index (BMI) [Ratio] 51.7 kg/m2 [facility] 10-19-2023 11:31-0400 Body weight 172.87 kg [facility] 10-19-2023 11:31-0400 Diastolic blood pressure 83 mm[Hg] [facility] 10-19-2023 11:31-0400 Heart rate 74 /min [facility] 10-19-2023 11:31-0400 Respiratory rate 18 /min [facility] 10-19-2023 11:31-0400 SaO2% (BldA) [Mass fraction] 97 % [facility] 10-19-2023 11:31-0400 Systolic blood pressure 149 mm[Hg] [facility] 06-16-2023 11:33-0500 Diastolic blood pressure 84 mm[Hg] Blossom Cody [employer] Work Phone: [facility] 06-16-2023 11:33-0500 Systolic blood pressure 154 mm[Hg] Blossom Lozoyael [employer] Work Phone: [facility] 06-16-2023 11:02-0500 Body mass index (BMI) [Ratio] 52.12 kg/m2 Blossom Lozoyael [employer] Work Phone: [facility] 06-16-2023 11:02-0500 Body weight 171.91 kg Blossomdidier Lozoyael [employer] Work Phone: [facility] 06-16-2023 11:02-0500 Heart rate 92 /min Blossom Lozoyael [employer] Work Phone: [facility] 06-09-2023 08:45-0500 Body height Tondra Mapus Other [facility] [employer] Other 06-09-2023 08:45-0500 Body height 182.88 cm MD Natalie Hernandez Work Phone: [facility] 06-09-2023 08:45-0500 Body mass index (BMI) [Ratio] 51.33 kg/m2 Tondra Mapus Other [facility] [employer] Other 06-09-2023 08:45-0500 Body weight 171.69 kg Tondra Mapus Other [facility] [employer] Other 06-09-2023 08:45-0500 Body weight 171.68 kg MD Natalie Hernandez Work Phone: [facility] 06-09-2023 08:45-0500 Diastolic blood pressure 80 mm[Hg] Tondra Mapus Other [facility] 06-09-2023 08:45-0500 Respiratory rate 18 /min Tondra Mapus Other [employer] Other 06-09-2023 08:45-0500 SaO2% (BldA) [Mass fraction] 94 % Tondra Mapus Other [employer] Other 06-09-2023 08:45-0500 Systolic blood pressure 148 mm[Hg] Tondra Mapus Other [facility] 01-04-2023 08:45-0400 Body height Tondra Mapus Other [employer] Other 01-04-2023 08:45-0400 Body mass index (BMI) [Ratio] 51.37 kg/m2 Tondra Mapus Other [employer] Other 01-04-2023 08:45-0400 Body weight 171.82 kg Tondra Mapus Other [employer] Other 01-04-2023 08:45-0400 Diastolic blood pressure 85 mm[Hg] Tondra Mapus Other [employer] Other 01-04-2023 08:45-0400 Respiratory rate 18 /min Tondra Mapus Other [employer] Other 01-04-2023 08:45-0400 SaO2% (BldA) [Mass fraction] 98 % Tondra Mapus Other [employer] Other 01-04-2023 08:45-0400 Systolic blood pressure 150 mm[Hg] Tondra Mapus Other [employer] Other 06-25-2022 09:45-0500 Body height Tondra Mapus Other [employer] Other 06-25-2022 09:45-0500 Body mass index (BMI) [Ratio] 51.14 kg/m2 Tondra Mapus Other [employer] Other 06-25-2022 09:45-0500 Body weight 171.05 kg Tondra Mapus Other [employer] Other 06-25-2022 09:45-0500 Diastolic blood pressure 80 mm[Hg] Tondra Mapus Other [employer] Other 06-25-2022 09:45-0500 Respiratory rate 18 /min Tondra Mapus Other [employer] Other 06-25-2022 09:45-0500 SaO2% (BldA) [Mass fraction] 95 % Tondra Mapus Other [employer] Other 06-25-2022 09:45-0500 Systolic blood pressure 139 mm[Hg] Tondra Mapus Other [employer] Other 01-06-2022 09:45-0400 Body height Tondra Mapus Other [employer] Other 01-06-2022 09:45-0400 Body mass index (BMI) [Ratio] 48.28 kg/m2 Tondra Mapus Other [employer] Other 01-06-2022 09:45-0400 Body weight 161.48 kg Tondra Mapus Other [employer] Other 01-06-2022 09:45-0400 Diastolic blood pressure 71 mm[Hg] Tondra Mapus Other [employer] Other 01-06-2022 09:45-0400 Respiratory rate 20 /min Tondra Mapus Other [employer] Other 01-06-2022 09:45-0400 SaO2% (BldA) [Mass fraction] 95 % Tondra Mapus Other [employer] Other 01-06-2022 09:45-0400 Systolic blood pressure 124 mm[Hg] Tondra Mapus Other [employer] Other Encounters Encounter Date Encounter Type Care Provider Facility Start: 10-19-2024 End: 10-19-2024 Bamboo flowsheet Apryl Granados [employer] Work Phone: [facility] Start: 10-19-2024 End: 10-19-2024 Bamboo flowsheet Apryl Granados [employer] Work Phone: [facility] Start: 10-19-2024 End: 10-19-2024 Office outpatient visit 15 minutes Apryl Granados [employer] Work Phone: [facility] Comment on above: 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) (Primary Dx); Essential hypertension; 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, sequela ([facility]-HCC); Amputation of toe, traumatic, left, sequela ([facility]-HCC); Morbid obesity ([facility]-HCC); Hypertriglyceridemia Start: 10-19-2024 End: 10-19-2024 ambulatory APRYL GRANADOS Not Available Start: 08-21-2024 End: 08-21-2024 ambulatory [facility] Work Phone: Start: 08-21-2024 End: 08-21-2024 Patient encounter procedure [facility] Work Phone: Start: 07-19-2024 End: 07-19-2024 Office [...] 06-14-2024 ambulatory Natalie Hernandez MD Work Phone: [facility] Work Phone: Start: 06-14-2024 End: 06-14-2024 Patient encounter procedure Natalie Hernandez MD Work Phone: [facility] Work Phone: Start: 05-30-2024 Non-patient / Non-visit [facility] Work Phone: Start: 05-30-2024 End: 06-01-2024 [...] Start: 04-26-2024 End: 04-26-2024 ambulatory Natalie Hernandez Facility:[facility] Start: 04-26-2024 End: 04-26-2024 Departed Referred Natalie Hernandez MD Work Phone: [facility] Start: 04-25-2024 End: 04-27-2024 Clinisync Result Encounter Generic External Data Provider [facility] External [facility] Unsolicited Start: 04-25-2024 End: 04-27-2024 Clinisync Result Encounter Generic External Data Provider [facility] External Department Unsolicited Start: 04-19-2024 End: 04-19-2024 Bamboo flowsheet Blossom Cody [employer] Work Phone: [facility] Start: 04-19-2024 End: 04-19-2024 Bamboo flowsheet Blossom Cody [employer] Work Phone: [facility] Start: 04-19-2024 End: 04-19-2024 Patient encounter status Blossom Cody [employer] Work Phone: [facility] Start: 04-19-2024 End: 04-19-2024 Periodic preventive med est patient 40-64yrs Blossom Cody [employer] Work Phone: [facility] Comment on [...] neuropathy associated with type 2 diabetes mellitus ([facility]/HCC); Acquired hallux valgus, unspecified laterality; Morbid obesity ([facility]); Vitamin B 12 deficiency; 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CMS/HCC) Start: 04-19-2024 End: 04-19-2024 ambulatory BLOSSOM CODY Not Available Start: 02-28-2024 End: 02-28-2024 Refill Natalie Hernandez MD Work Phone: [facility] Comment on above: Pure hyperglyceridem ia ([facility]) Start: 01-26-2024 End: 01-26-2024 ambulatory [facility] Work Phone: Start: 01-26-2024 End: 01-26-2024 Patient encounter procedure [facility] Work Phone: Start: 01-20-2024 Non-patient / Non-visit [facility] Work Phone: Start: 01-19-2024 End: 01-19-2024 Bamboo flowsheet Blossom Cody [employer] Work Phone: [facility] Start: 01-19-2024 End: 01-19-2024 Bamboo flowsheet Blossom Cody [employer] Work Phone: [facility] Start: 01-19-2024 End: 01-19-2024 Office outpatient visit 25 minutes Blossom Cody NP Work Phone: [facility] Comment on above: Diabetic polyneuropa thy associated with type 2 diabetes mellitus ([facility]/HCC) (Primary Dx); Type 2 diabetes mellitus with neurological manifestation ([facility]); Essential hypertension; 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, subsequent encounter ([facility]); Type 2 diabetes mellitus with hyperglycemia, with long-term current use of insulin ([facility]); Dyslipidemia ([facility]/HCC); Hypertriglyceridemia ([facility]/HCC); Amputation of toe, traumatic, left, sequela ([facility]); Vitamin B 12 deficiency; Pure hyperglyceridemia ([facility]/HCC) Start: 01-19-2024 End: 01-19-2024 ambulatory BLOSSOM CODY Not Available Start: 12-30-2023 End: 12-30-2023 Lenard Hernandez MD Work Phone: [facility] Comment on above: Essential hypertensi on Start: 10-29-2023 End: 10-29-2023 ambulatory MIRLANDE Zhang TRAM Not Available Start: 10-19-2023 End: 10-19-2023 ambulatory [facility] Work Phone: Start: 10-19-2023 End: 10-19-2023 Patient encounter procedure [facility] Work Phone: Start: 06-16-2023 Bamboo flowsheet Blossom cabrales NP Work Phone: [facility] Start: 06-16-2023 Bamboo flowsheet Blossom cabrales [employer] Work Phone: [facility] Start: 06-16-2023 End: 06-16-2023 Office outpatient visit 25 minutes Blossom Cody NP Work Phone: [facility] Comment on above: Diabetic polyneuropa thy associated with type 2 diabetes mellitus ([facility]/HCC) (Primary Dx); Diabetic neuropathic arthropathy ([facility]); Type 2 diabetes mellitus with neurological manifestation ([facility]); 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, sequela ([facility]); Ulcer of foot due to type 2 diabetes mellitus ([facility]); Vitamin B 12 deficiency; Hx of diabetic neuropathy; 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[facility]); Hypertriglyceridemia ([facility]); 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, 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); Essential hypertension; Nasal congestion; Type 2 diabetes mellitus with diabetic autonomic neuropathy, with long-term current use of insulin ([facility]); FPC (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 (Z79.4); Acquired absence of other toe(s), unspecified side (Z89.429); Type 2 diabetes mellitus with diabetic neuropathy, with long-term current use of insulin ([facility]); Body mass index [BMI] 50.0-59.9, adult (Z68.43); Type 2 diabetes mellitus with foot ulcer, with long-term current use of insulin ([facility]); 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.49); Status post amputation of lesser toe, unspecified laterality ([facility]); Arthritis of left foot; Acquired hallux valgus of left foot; Type 2 diabetes mellitus with hyperglycemia, with long-term current use of insulin ([facility]); Morbid obesity ([facility]) Start: 06-15-2023 End: 06-15-2023 ambulatory Tondra Mapus Other [employer] Other Start: 06-15-2023 Telephone encounter Tondra Shannon [facility] Start: 06-09-2023 (DM) Diabetes Tondra Shannon [facility] Start: 06-09-2023 End: 06-09-2023 Discharged Recurring MD Natalie Hernandez [facility] Work Phone: Start: 06-09-2023 End: 06-09-2023 ambulatory MD Natalie Hernandez Work Phone: [employer] [facility] Start: 06-09-2023 End: 06-09-2023 Patient encounter procedure MD Natalie Hernandez Work Phone: [facility]- Start: 01-04-2023 (DM) Diabetes Tondra Shannon [facility] Start: 01-04-2023 End: 01-04-2023 ambulatory Tondra Mapus Other [employer] Other Start: 12-21-2022 End: 12-21-2022 ambulatory Tondra Mapus Other [employer] Other Start: 12-21-2022 Telephone encounter Tondra Mapus [facility] Start: 10-12-2022 ambulatory NATANAEL FELDMAN Faci lity:H1 Start: 10-06-2022 End: 10-07-2022 ambulatory [facility] Start: 10-01-2022 Encounter for prepro cedural cardiovascular examination NATANAEL Marks [facility] Start: 10-01-2022 Encounter for prepro cedural laboratory examination NATANAEL Marks [facility] Start: 09-30-2022 End: 10-01-2022 ambulatory NATANAEL Marks [facility] Facility:H1 Start: 09-30-2022 End: 10-01-2022 Encounter for preprocedural laboratory examination NATANAEL Marks [facility] Facility:H1 Start: 09-15-2022 End: 09-16-2022 ambulatory NATANAEL Marks [facility] Facility:H1 Start: 09-10-2022 End: 09-10-2022 ambulatory Tondra Mapus Other [employer] Other Start: 09-10-2022 Telephone encounter Tondra Mapus [facility] Start: 08-24-2022 End: 08-25-2022 ambulatory NATANAEL Marks [facility] Facility:H1 Start: 08-10-2022 End: 08-10-2022 ambulatory Tondra Mapus Other [employer] Other Start: 08-10-2022 Telephone encounter Tondra Mapus [facility] Start: 08-03-2022 End: 08-04-[address] NATALIE HERNANDEZ Facility:H1 Start: 07-13-2022 End: 07-14-2022 ambulatory MARTELL NAVAS Facility:H1 Start: 06-30-2022 End: 07-01-2022 ambulatory [facility]EL Marks [facility] Start: 06-25-2022 (DM) Diabetes Tondra Mapus [facility] Start: 06-25-2022 End: 06-25-2022 ambulatory Tondra Mapus Other [employer] Other Start: 06-16-2022 End: 06-17-2022 ambulatory NATANAEL Marks [facility] Facility:H1 Start: 06-08-2022 End: 06-09-2022 ambulatory PETER [...] 02-18-2022 End: 02-18-2022 ambulatory Tondra Mapus Other [employer] Other Start: 02-18-2022 Telephone encounter Tondra Mapus [facility] Start: 02-09-2022 End: 02-10-2022 ambulatory PETER D HIGHLANDER Facility:H1 Start: 01-26-2022 End: 01-27-2022 ambulatory PETER D HIGHLANDER Facility:H1 Start: 01-13-2022 End: 01-14-2022 ambulatory PETER D HIGHLANDER Facility:H1 Start: 01-06-2022 (DM) Diabetes Tondra Shannon [facility] Start: 01-06-2022 End: 01-06-2022 ambulatory Tondra Mapus Other [employer] Other Start: 12-29-2021 End: 12-30-2021 ambulatory PETER [...] post amputation of lesser toe, unspecified laterality ([facility]) Blossom Cody NP Work Phone: Plan of Treatment Date Care Activity Detail Author Start: 07-26-2025 Glaucoma screening Diabetes: Retinopathy Screening [facility] Start: 01-31-2025 End: 01-31-2025 Patient encounter procedure 01/31/2025 9:30 AM EDT Office Visit [facility] [address] [place] [phone] Apryl Granados NP [address] [place] [address] [facility] Start: 10-19-2024 End: 10-19-2024 Patient encounter procedure [facility] Comment on above: Arrived Start: 07-19-2024 End: 07-19-2024 Patient encounter procedure 07/19/2024 9:30 AM EDT Office Visit [facility] [address] [place] [phone] Blossom Cody NP [address] [place], [place] [id number] [facility] Start: 04-26-2024 Hemoglobin A1c measurement Diabetes: Hemoglobin A1C [facility] Start: 04-19-2024 End: 04-19-2024 Patient encounter procedure [facility] Comment on above: Diabetic polyneuropathy associated with type 2 diabetes mellitus ([facility]) (Primary Dx); Wellness examination; Type 2 diabetes mellitus with neurological manifestation ([facility]); Essential hypertension; 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, subsequent encounter ([facility]); Dyslipidemia ([facility]); Hypertriglyceridemia (CMS/HCC); Poorly controlled diabetes mellitus ([facility]/HCC); Type 2 diabetes mellitus with hyperglycemia, with long-term current use of insulin ([facility]); Amputation of toe, traumatic, left, sequela ([facility]) Start: 03-24-2024 Urine screening for protein Diabetes: Urine Protein Screening [facility] Start: 03-15-2024 Influenza vaccination Influenza Vaccine (#1) [facility] Comment on above: Postponed from 01/09/2024 (Patient Refus ed) Start: 01-25-2024 End: 01-25-2024 Patient encounter procedure 01/25/2024 10:30 AM EDT Office Visit [facility] [address] [facility] [place] [address] Blossom Cody NP [address] [place] [address] [facility] Start: 01-19-2024 Hemoglobin A1c measurement Diabetes: Hemoglobin A1C [facility] Start: 01-19-2024 End: 01-19-2024 Patient encounter procedure 01/19/2024 11:00 AM EDT Office Visit [facility] [address] [place] [phone] Blossom Cody NP [address] [place] [address] Diabetic polyneuropathy associated with type 2 diabetes mellitus (CMS/HCC) (Primary Dx); 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); Essential hypertension; 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, subsequent encounter (CMS/HCC); Type 2 diabetes mellitus with hyperglycemia, with long-term current use of insulin (CMS/HCC); Dyslipidemia (CMS/HCC); Hypertriglyceridemia (CMS/HCC); Amputation of toe, traumatic, left, sequela (CMS/HCC); Vitamin B 12 deficiency [facility] Comment on above: Diabetic polyneuropathy associated [...] Start: 01-09-2024 Influenza vaccination Influenza Vaccine (#1) [facility] Start: 09-15-2023 End: 09-15-2023 Patient encounter procedure 09/15/2023 9:30 AM EDT [facility] [address] [facility] [place] [address] Blossom Cody NP [address] [facility] [place] [address] [facility] Start: 09-07-2023 Hemoglobin A1c measurement Diabetes: Hemoglobin A1C [facility] Start: 07-26-2023 Glaucoma screening Diabetes: Retinopathy Screening [facility] Start: 07-07-2023 End: 07-07-2023 Patient encounter procedure 07/07/2023 9:00 AM EST [facility] [address] [facility] [place] [address] [facility] Start: 06-16-2023 End: 06-16-2023 Patient encounter procedure 06/16/2023 11:00 AM EST Office Visit [facility] [address] [facility] [place] [address] Blossom Cody NP [address] [facility] [place] [address] Diabetic polyneuropathy associated with type 2 diabetes [...] disorder (CMS/HCC); Morbid obesity (CMS/HCC); Hypertriglyceridemia (CMS/HCC) [facility] Comment on above: Diabetic polyneuropathy associated with type 2 diabetes mellitus (CMS/HCC) (Primary Dx); Diabetic neuropathic arthropathy (CMS/HCC); 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); 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, sequela (CMS/HCC); Ulcer of foot due to type 2 diabetes mellitus ([facility]); Poorly controlled diabetes mellitus ([facility]); Type 2 diabetes mellitus with hyperglycemia, with long-term current use of insulin ([facility]); Vitamin B 12 deficiency; Hx of diabetic neuropathy; 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); Morbid obesity ([facility]); Hypertriglyceridemia ([facility]) Start: 1980 Screening for malignant neoplasm of colon [facility] AEROBIC CULTURE AEROBIC CULTURE Lab Routine 05/26/2024 6:16 PM EST [facility] BLOOD CULTURE 1 BLOOD CULTURE 1 Lab Routine 04/27/2024 6:10 AM [facility] BLOOD CULTURE 2 BLOOD CULTURE 2 Lab Routine 04/25/2024 1:00 PM [facility] BLOOD CULTURE 2 BLOOD CULTURE 2 Lab Routine 04/27/2024 6:24 AM [facility] BLOOD CULTURE 2 BLOOD CULTURE 2 Lab Routine 05/30/2024 12:28 PM [facility] Comprehensive metabo lic 1999 panel - Serum or Plasma [facility] Comprehensive metabo lic 1999 panel - Serum or Plasma [facility] Patient Education Diabetes and diet [facility] Work Phone: [facility] Immunizations Immunization Date Immunization Notes Care Provider Huong aguirre 03-14-2024 influenza, seasonal, injectable, preservative free Blossom Cody NP Work Phone: [facility] 03-14-2024 influenza virus vacc ine, unspecified formulation Blossom Cody [employer] Work Phone: [facility] 07-05-2023 tetanus and diphther ia toxoids, adsorbed, preservative free, for adult use (2 Lf of tetanus toxoid and 2 Lf of diphtheria toxoid) Natalie Hernandez MD Work Phone: [facility] 03-24-2023 influenza, injectabl e, quadrivalent, preservative free Blossom Cody [employer] Work Phone: [facility] 03-24-2023 influenza virus vacc ine, unspecified formulation Natalie Hernandez MD Work Phone: [facility] 04-19-2022 tetanus and diphther ia toxoids, adsorbed, preservative free, for adult use (5 Lf of tetanus toxoid and 2 Lf of diphtheria toxoid) Blossom Cody [employer] Work Phone: [facility] 03-28-2021 influenza, injectabl e, quadrivalent, preservative free Blossomdidier Cody [employer] WORK[employer] Work Phone: [facility] 02-13-2020 Influenza, injectabl e, Madin Nel Canine Kidney, preservative free, quadrivalent Blossom Cody [employer] Work Phone: [facility] 02-22-2019 influenza, injectabl e, quadrivalent, preservative free Blossom Cody [employer] Work Phone: [facility] 02-07-2018 influenza, injectabl e, quadrivalent, preservative free Blossom Cody [employer] WORK[employer] Work Phone: [facility] Healthcare Payers Date Payer Category Payer [facility] Health Insurance [facility] [id number] 2022 Unknown [id number] [id number] 2020 Self-pay [id number] 1979 Unknown [id number] 2.16.840.1.829445.3.579. 2.593 1979 Unknown [id number] 2.16.840.1.432100.3.579. 2.593 1979 Unknown [id number] 2.16.840.1.843830.3.579. 2.593 1979 Unknown [id number] 2.16.840.1.974398.3.579. 2.593 1979 Unknown [id number] 2.16.840.1.312265.3.579. 2.593 1979 Unknown [id number] 2.16.840.1.670103.3.579. 2.593 1979 Unknown [id number] 2.16.840.1.152964.3.579. 2.593 1979 Unknown [id number] 2.16.840.1.790006.3.579. 2.593 1979 Unknown [id number] 2.16.840.1.638420.3.579. 2.593 1979 Unknown [id number] 2.16.840.1.512306.3.579. 2.593 1979 Unknown [id number] 2.16.840.1.417926.3.579. 2.593 1979 Unknown [id number] 2.16.840.1.774103.3.579. 2.593 1979 Unknown [id number] 2.16.840.1.720870.3.579. 2.593 1979 Unknown [id number] 2.16.840.1.927954.3.579. 2.593 1979 Unknown [id number] 2.16.840.1.178693.3.579. 2.593 1979 Unknown [id number] 2.16.840.1.220513.3.579. 2.593 1979 Unknown [id number] 2.16.840.1.084174.3.579. 2.593 1979 Unknown [id number] 2.16.840.1.475361.3.579. 2.593 1979 Unknown [id number] 2.16.840.1.185968.3.579. 2.593 1979 Unknown [id number] 2.16.840.1.220431.3.579. 2.593 1979 Unknown [id number] 2.16.840.1.904903.3.579. 2.593 1979 Unknown [id number] 2.16.840.1.168648.3.579. 2.593 1979 Unknown [id number] 2.16.840.1.930366.3.579. 2.593 1979 Unknown [id number] 2.16840.1.510311.3.579. 2.593 1979 Unknown [id number] 2.16.840.1.130941.3.579. 2.593 1979 Unknown [id number] 2.16.840.1.830214.3.579. 2.593 1979 Unknown [id number] 2.16840.1.334291.3.579. 2.593 1979 Unknown [id number] 2.16.840.1.155784.3.579. 2.593 1979 Unknown [id number] 2.16.840.1.214958.3.579. 2.593 1979 Unknown [id number] 2.16.840.1.360329.3.579. 2.593 1979 Unknown [id number] 2.16.840.1.146156.3.579. 2.593 1979 Unknown [id number] 2.16.840.1.582935.3.579. 2.593 1979 Unknown [id number] 2.16.840.1.019141.3.579. 2.593 1979 Unknown [id number] 2.16.840.1.554724.3.579. 2.593 1979 Unknown [id number] 2.16.840.1.046782.3.579. 2.593 1979 Unknown [id number] 2.16.840.1.711655.3.579. 2.593 1979 Unknown [id number] 2.16.840.1.511010.3.579. 2.593 1979 Unknown [id number] 2.16.840.1.088527.3.579. 2.593 1979 Unknown [id number] 2.16.840.1.290706.3.579. 2.593 1979 Unknown [id number] 2.16.840.1.672328.3.579. 2.593 1979 Unknown [id number] 2.16.840.1.086880.3.579. 2.593 1979 Unknown [id number] 2.16.840.1.591103.3.579. 2.1259 1979 Unknown [id number] 2.16.840.1.533232.3.579. 2.1259 1979 Unknown [id number] 2.16.840.1.778682.3.579. 2.1259 1979 Unknown [id number] 2.16.840.1.625554.3.579. 2.1259 1979 Unknown [id number] 2.16840.1.550906.3.579. 2.1259 1959 Unknown [id number] 2.16840.1.079658.19 1959 Unknown [id number] 2.16840.1.521057.19 Unknown [id number] 2.16.840.1.900265.3.579. 2.531 Unknown [id number] 2.16.840.1.865813.3.579. 2.531 Social History Date Type Detail Facility Unknown if ever smoked [employer] Other Start: 03-23-2023 End: 10-19-2024 Sex Assigned At [facility] Start: 12-21-2022 Tobacco smoking status NHIS Never smoked tobacco [facility] Start: 12-21-2022 Tobacco use and exposure Smokeless tobacco non-user [facility] Start: 05-18-2023 End: 10-19-2024 Alcohol intake Current drinker of alcohol (finding) [...] Start: 1980 Sex Assigned At [facility] Start: 10-19-2023 End: 10-19-2023 Tobacco smoking status NHIS Ex-smoker (finding) [facility] Start: 06-14-2024 End: 08-21-2024 Sex Male (finding) [facility] Medical Equipment Procedure Code Equipment Code Equipment [...] 06-23-2023 End: 08-09-2024 Clinical Notes 05-10-2020 to 10-19-2024 Apryl Granados NP - 10/19/2024 10:00 AM Chani Cody NP - 07/19/2024 9:30 AM EDT Note Date & Type Note Facility 10-19-2024 History of Presen t illness Narrative Images from the original note were not included. Trev Ontiveros is a 44 y.o. male presents with chief complaint of Follow-up (3 month DM) HPI: HPI History of Present Illness The patient is a 44-year-old male who presents to the office for follow-up today. He is under the care of an brim cutter for his diabetes, with a scheduled appointment next month. His last visit was in 08/2024, during which his A1c level was recorded at 7.9. Despite undergoing three surgeries in 04/2024 and 05/2024, there were no alterations made to his medication regimen. He adheres to a sliding scale insulin regimen, supplemented with Victoza 1.8 mg, metformin, and Lantus 44 units twice daily. He monitors his blood glucose levels, which typically range from 120 to 160, without any instances of hypoglycemia. In the event of a low reading, he rechecks his levels, which usually register in the 90s. He performs fingerstick [...] necessitated surgical intervention and subsequent rehabilitation at [facility] due to his inability to bear weight on the foot. During his two-month stay at [facility], he contracted MRSA. 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 He reports no gastrointestinal symptoms [...] Medical History: Diagnosis Date BMI 40.0-44.9, adult ([facility] BMI 45.0-49.9, adult ([facility] Constipation COVID-19 DM (diabetes mellitus) ([facility]) Dyslipidemia History of being hospitalized 03/2018 Uncontrolled diabetes, infection History of COVID-19 05/13/2020 Non-pressure chronic ulcer of other part of unspecified foot with unspecified severity ([facility]) 10/02/2022 Osteomyelitis of great toe of right foot ([facility]) 10/02/2022 Osteomyelitis of right foot ([facility]) 10/02/2022 Pressure ulcer of other site, stage 2 (CMS-HCC) 10/02/2022 Ulcer of foot due to type 2 diabetes mellitus ([facility]) 10/02/2022 Ulcerated, foot, left, limited to breakdown of skin ([facility]) 10/02/2022 Past Surgical History: Procedure Laterality Date AMPUTATION FOOT / TOE Right 03/2018 2nd toe AMPUTATION FOOT / TOE Right 01/10/2021 Hallux - Dr. Moore AMPUTATION FOOT / TOE Left 05/17/2023 4th toe - Dr. Feldman CHEILECTOMY Left 02/14/2020 [facility] CHEILECTOMY Left 09/15/2018 1st Metatarsal FOOT [...] Friends and Family: Twice a week Attends [employer]: More than 4 times per year [...] amputation of toe of right foot, sequela ([facility]-HCC) Amputation of toe, traumatic, left, sequela ([facility]-HCC) Morbid obesity ([facility]-H[facility]) Hypertriglyceridemia Assessment & Plan 1. Type 2 diabetes mellitus. He is currently under the care of an brim cutter, with his most recent A1c level recorded [...] the intake of carbohydrates, processed foods, and sugars, and to incorporate exercise into his routine. 6. [...] 01/19/2025) for DM. documented in this encounter [facility] 07-19-2024 History of Presen t illness Narrative [...] wound , was in rehab place in [place] couldn't put weight on it for awhile. Had MRSA while there. Had IV ATB 4 times a day for [address] Nolasco in [place]. Was taking Vit D weekly in rehab. Had PT daily there. Now area is approx 50 cent size (medial lateral right foot). Sees Dr Feldman. Has been home for 2 weeks now. Blood sugars 120-160 fasting and after meals. Taking Lantus 42-46 units. Held Farxiga, they started Victoza-pt will clarify with endo [...] HgbA1c 7.4 in Jan (prior 9.7). Sees Endo. 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 Seeing [...] in Apr 2024) documented in this encounter [facility] 06-14-2024 Evaluation note Diagnosis Onset Date Resolution Diabetes acute June 14, 2024 2:39pm MDRO (multiple drug resistant organisms) resistance acute June 14 2:39pm Receiving intravenous antibiotic treatment as outpatient acute June 14 2:39pm Wound of right foot acute Febru sarah2024 2:39pm BMI 50.0-59.9, adult acute Apri l 2024 8:51am Dietary counseling and surveillance acute August 21, 2024 8:51am Hypertension acute August 21, 2024 8:51am Mixed hyperlipidemia acute Apri l 2024 8:51am Type 2 diabetes mellitus with hyperglycemia acute August 21, 025 8:51am Wound of left foot acute August 21, 2024 8:51am Wound of right foot acute August 21, 2024 8:51am [facility] Work Phone: [phone] History of Present illness Narrative* Blossom Cody NP - 04/19/2024 10:00 AM EST Images from [...] of toe of right foot, subsequent encounter ([facility]/HCC) Comments: Sees Dr Feldman and Oscar Dyslipidemia ([facility]/HCC) Comments: Lipids: Chol 126, Trig 219, HDL 25, LDL 69, ratio 5 per Endo lab in jan Hypertriglyceridemia (CMS/HCC) Comments: See above last 290 in Mar 2023-so better. Avoid sweets. enc fruit and elliot veget, lean protein nuts,exercise Poorly controlled diabetes mellitus (CMS/HCC) Type 2 [...] recheck-hypertension/Diabetes, sooner if concerns documented in this encounterMiss[facility] [id number] Telephone encounter Note* Telephone Encounter - Blossom Cody NP - 02/28/2024 11:53 AM EDT Rx [facility] [id number] Miscellaneous Notes* Telephone Encounter - Blossom Cody NP - 02/28/2024 11:53 AM EDT Rx sent documented in this encounterMissouri [facility] Medical [id number] History of Present illness Narrative* Blossom Cody [...] polyneuropathy associated with type 2 diabetes mellitus ([facility]/HCC) Comments: HgbA1c 9.7 in October. He sees Endo. Plans to do lab for them this week. He has Endo appt next week. Enc yearly eye exams. Enc to watch portions on carbs, avoid sweets. Try to be as active as able. Type 2 diabetes mellitus with neurological manifestation ([facility]) Essential hypertension: Controlled. Pt will verify what dose he has at home ie 30 or 40mg of Lisinopril. 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 Avoid sweets, more fruits and mainly non-starchy vegetables, lean protien, nuts and routine exercise. Amputation of toe, traumatic, left, sequela ([facility]) Vitamin B 12 deficiency Comments: Last Vit B12 351 Pt declined flu vaccine today, prefers to wait into later February, could stop back here or do at work or pharmacy. Does not plan to get any more covid vaccines. Enc to think about Prevnar 20. F/U in 3 months for Wellness, sooner if concerns. PVU documented in this [facility]08-22-2024 Telephone encounter Note* Telephone Encounter - Blossom Cody NP - 12/30/2023 4:44 PM EDT Rx sent [facility] [id number] Miscellaneous Notes* Telephone Encounter - Blossom Cody NP - 12/30/2023 4:44 PM EDT Rx sent documented in this [facility]02-07-2024 History of Present illness Narrative* [...] sugars ranging from 120-170's. Sees Joshua in [place], next appt September 13 with them. Taking [...] with type 2 diabetes mellitus (CMS/HCC) Comments: Aisilnn Lewis, last HgbA1c 8.11 May 2023 (prior 8.9 end of December). Pt asked me why we can't just take care of his Diabetes, so he doesn't have to go to [place]. 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 (Z79.4): Hx of Acquired absence of other toe(s), unspecified side (Z89.429): Hx of Type 2 diabetes mellitus with diabetic neuropathy, with long-term current use of insulin (CMS/HCC);Hx of Body mass index [BMI] 50.0-59.9, adult [...] of lesser toe, unspecified laterality (CMS/HCC): 4th toe- has appt for followup with Dr Feldman Arthritis of left foot: Hx of Acquired hallux valgus of left foot: Hx of Type 2 Diabetes mellitus with hyperglycemia with nursing home current use of insulin (CMS/HCC): Hx of Morbid obesity: See above documented in this encounterMissouri Baptist Medical CenterFuyooqrbjs91-50-2969 Evaluation note* Encounter Date Diagnosis Assessment Notes Treatment Notes Treatment Clinical Notes Jun, Type 2 diabetes mellitus with hyperglycemia (ICD-10 - E11.65) [facility] 01-31-2024 Evaluation note* Encounter Date Diagnosis [...] Cost is prohibitive for pt to take marta, nahid mckeon. Carolineatro is tier 2 on formulary. Reviewed [...] f/u with pcp for further recommendation May, [facility] current use of insulin (ICD-10 - Z79.4) May, Vitamin B 12 deficiency (ICD-10 - E53.8) 04/01 vit b 12 351 at target May, BMI 50.0-59.9, adult (ICD-10 - Z68.43) see above May, Amputation toe (ICD-10 - Z89.429) Keep f/u with Dr. Feldman May, Cracked skin on feet (ICD-10 - R23.4) keep f/u with Dr. Feldman [facility] 08-28-2023 Evaluation note* Encounter Date Diagnosis [...] for Lispro/ozempic 0.5mg sent to [facility] in [place] 01/04/23 7. 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 Feldman [facility] 05-30-2023 NotePROCEDURE: XR FOOT LT MIN [...] Electronically authenticated by: FRANCO FRANCES Date: 2022-10-06 14:13[facility]05-04-2023 Evaluation note* Encounter Date Diagnosis Assessment Notes Treatment Notes Treatment Clinical Notes September, Type 2 diabetes mellitus with hyperglycemia (ICD-10 - E11.65) [facility] 04-17-2023 NotePROCEDURE: XR FOOT LT MIN [...] 1mg and concern with cost works at [employer]. Pt agreeable to starting sample ozempic 0.5mg [...] issues. 6. Prescriptions: Syringes/ozempic/st eglatro sent to [facility] in [place] 06/25/22 7. 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 (ICD-10 - Z79.4) Jun, Vitamin B 12 deficiency (ICD-10 - E53.8) 12/28 vit b 12 423 at target Jun, BMI 50.0-59.9, adult (ICD-10 - Z68.43) [facility] 02-07-2023 NotePROCEDURE: XR ANKLE LT MIN [...] (hypertension) (ICD-10 - I10) on julissa Dec, [facility] current use of insulin (ICD-10 - Z79.4) Dec, Vitamin B 12 deficiency (ICD-10 - E53.8) 12/28 vit b 12 423 at target 30 Dec, 2021 BMI 45.0-49.9, adult (ICD-10 - Z68.42) 14 pound weight loss from last visit, continue with weight loss efforts [facility] 01-01-2021 History general Narrative - Reported* Type Description Date Medical History type II diabetes Medical History hypertension Medical History hyperlipidemia Medical History covid 05/2020 Surgical History Ulcer on left great toe X2 Surgical History Partial amputation Right great toe 01/2021 Surgical History All toes right foot amputated Hospitalization History Toe infection 2017 [facility] 01-01-2021 History general Narrative - Reported* Type Description Date Medical History type II diabetes Medical History hypertension Medical History hyperlipidemia Medical History covid 05/2020 Surgical History Ulcer on left great toe X2 Surgical History Partial amputation Right great toe 01/2021 Surgical History All toes right foot amputated Surgical History Left great toe corre ctive surgery with Dr. Feldman in [place] 10/2022 Hospitalization History Toe infection 2017 [facility] Other Chitj complaint+Reason for visit Narrative* Chief Complaint no meter Reason for Visit BMI 50.0-59.9, adult Dietary counseling and surveillance Hypertension Mixed hyperlipidemia Type 2 diabetes mellitus with hyperglycemia [facility] Work Phone: Chipr complaint+Reason for visit Narrative* Chief Complaint meter Reason for Visit BMI 50.0-59.9, adult Dietary counseling and surveillance Hypertension Mixed hyperlipidemia Type 2 diabetes mellitus with hyperglycemia Wound of left foot Wound of right foot [facility] Work Phone: Evaluation noteNo InformationNort Outline App Other Evaluation note* Diagnosis Diabetic polyneuropathy associated [...] Hx of diabetic neuropathy 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[facility]) Lipoprotein deficiencies Hypertriglyceridemia ([facility]) Pure hyperglyceridemia 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, 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) Essential hypertension Unspecified essential hypertension Nasal congestion Other diseases of nasal cavity and sinuses Type 2 diabetes mellitus with diabetic autonomic neuropathy, with long-term current use of insulin ([facility]) 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 (Z79.4) Acquired absence of other toe(s), unspecified side (Z89.429) Type 2 diabetes mellitus with diabetic neuropathy, with long-term current use of insulin ([facility]) Body mass index [BMI] 50.0-59.9, adult (Z68.43) Type 2 diabetes mellitus with foot ulcer, with long-term current use of insulin ([facility]) 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.49) Status post amputation of lesser toe, unspecified laterality ([facility]) Arthritis of left foot Acquired hallux valgus of left foot Type 2 diabetes mellitus with hyperglycemia, with long-term current use of insulin ([facility]) Morbid obesity ([facility]) Morbid obesity documented in this encounter [facility] noteNo assessment information availableC[facility] Work Phone: Evaluation note* Diagnosis Onset Date Resolution Status BMI 50.0-59.9, adult acute Dietary counseling and surveillance acute Hypertension acute Mixed hyperlipidemia acute Type 2 diabetes mellitus with hyperglycemia [facility] Work Phone: Evaluation note* Diagnosis Onset Date Resolution Status BMI 50.0-59.9, adult acute Dietary counseling and surveillance acute Hypertension acute Mixed hyperlipidemia acute Type 2 diabetes mellitus with hyperglycemia acute Wound of left foot acute Wound of right foot acute [facility] Work Phone: Evaluation note* Diagnosis Pure hyperglyceridemia ([facility]) Pure hyperglyceridemia documented in this encounter [facility]* Diagnosis Diabetic polyneuropathy associated with type 2 diabetes mellitus ([facility])- Primary Type 2 diabetes mellitus with neurological manifestation ([facility]) Essential hypertension Unspecified essential hypertension 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, subsequent encounter ([facility]) Type 2 diabetes mellitus with hyperglycemia, with long-term current use of insulin ([facility]) Dyslipidemia ([facility]) Other and unspecified hyperlipidemia Hypertriglyceridemia ([facility]) Pure hyperglyceridemia Vitamin B 12 deficiency Other B-complex deficiencies Pure hyperglyceridemia ([facility]) Pure hyperglyceridemia documented in this encounter [facility]* Diagnosis Diabetic polyneuropathy associated with type 2 diabetes mellitus ([facility])- Primary Wellness examination Type 2 diabetes mellitus with neurological manifestation ([facility]) Essential hypertension Unspecified essential hypertension 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, subsequent encounter ([facility]) Dyslipidemia ([facility]) Other and unspecified hyperlipidemia Hypertriglyceridemia ([facility]) Pure hyperglyceridemia Poorly controlled diabetes mellitus ([facility]) Type II or unspecified type diabetes mellitus without mention of complication, not stated as uncontrolled Type 2 diabetes mellitus with hyperglycemia, with long-term current use of insulin ([facility]) Diabetic autonomic neuropathy associated with type 2 diabetes mellitus ([facility]) Type II or unspecified type diabetes mellitus with neurological manifestations, not stated as uncontrolled Acquired hallux valgus, unspecified laterality Morbid obesity ([facility]) Morbid obesity Vitamin B 12 deficiency Other B-complex deficiencies 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[facility]) Lipoprotein deficiencies documented in this encounter [facility]* Diagnosis Essential hypertension Unspecified essential hypertension documented in this encounter [facility]* Diagnosis Diabetic polyneuropathy associated with type 2 diabetes mellitus ([facility])- Primary Type 2 diabetes mellitus with neurological manifestation ([facility]) 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, sequela ([facility]) Type 2 diabetes mellitus with hyperglycemia, with long-term current use of insulin ([facility]) Ulcer of right foot, unspecified ulcer stage (HCC) ([facility]) Poorly controlled diabetes mellitus ([facility]) Type II or unspecified type diabetes mellitus without mention of complication, not stated as uncontrolled Dyslipidemia ([facility]) Other and unspecified hyperlipidemia Hypertriglyceridemia ([facility]) Pure hyperglyceridemia Essential hypertension Unspecified essential hypertension Morbid obesity ([facility]) Morbid obesity Vitamin B 12 deficiency Other B-complex deficiencies Depressed mood Insomnia, unspecified type documented in this encounter [facility]* Diagnosis Type 2 diabetes mellitus with neurological manifestation ([facility])- Primary Essential hypertension Unspecified essential hypertension 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, sequela ([facility]) Morbid obesity ([facility]) Morbid obesity Hypertriglyceridemia Pure hyperglyceridemia documented in this encounter [facility] Summary [...] 10:32am refered by Dr feldman June 14 025 2:39pm Chief Complaint Admit Date refered by [...] content) DATE CREATED AUTHOR 08/27/2021 [facility] dical Specialist DATE CREATED AUTHOR AUTHOR'S ORGANIZ ATION 10/17/2022 [facility] DATE CREATED AUTHOR AUTHOR'S ORGANIZ ATION 04/29/2024 [facility] DATE CREATED AUTHOR AUTHOR'S ORGANIZ ATION 10/21/2024 [facility] dical Specialists EPIC REASON FOR [...] Rt foot healing afte r multiple surgeries. Reason Comments Follow-up 3 month DM Care Teams (unrecognized sec tion and content) [...] 2024 End: August 21, 2024 Team Status: Inactive Member Role Status Sarahi Hernandez MD Primary Care Provider Active Start: April 26, 2024 End: April 26, 2024 Natanael Feldman DPM MS Attending Provider Active Start: April 26, 2024 End: April 26, 2024 Team Status: Active Member Role Status Sarahi Hernandez MD Primary Care Provider Active Start: January 20, 2024 Link Ortega APRN Attending Provider Active Start: January 20, 2024 Team Status: Inactive Member Role Status Sarahi Hernandez MD Primary Care Provider Active Start: January 26, 2024 End: January 26, 2024 Link Ortega APRN Attending Provider Active Start: January 26, 2024 End: January 26, 2024 [place] Carver Relationship Specialty Start Date End Natalie Lafleur MD [address] [place] [address] PCP - General Family Medicine 09/15/22 [place] Carver Relationship Specialty Start Date End Date Natalie Hernandez MD [address] [facility] [place] [address] PCP - General Family Medicine 09/15/22 Team [...] October 19, 2023 End: October 19, 2023 [place] Carver Relationship Specialty Start Date End Date Natalie Hernandez MD [address] [facility] [place] [address] PCP - General Family Medicine 09/15/22 Blossom Cody NP [address] [facility] [place] [address] Nurse Practitioner Family Medicine 01/19/24 [place] Carver Relationship Specialty Start Date End Date Natalie Hernandez MD [address] [facility] [place] [address] PCP - General Family Medicine 09/15/22 Blossom Cody NP [address] [facility] [place] [address] Nurse Practitioner Family Medicine 01/19/24 [place] Carver Relationship Specialty Start Date End Date Natalie Hernandez MD [address] [facility] [place] [address] PCP - General Family Medicine 09/15/22 Blossom Cody NP [address] [place] [address] Nurse Practitioner Family Medicine 01/19/24 [place] Carver Relationship Specialty Start Date End Date WonderNatalie ruiz MD [address] [place] [address] PCP - General Family Medicine 09/15/22 Blossom Cody NP [address] [place] [address] Nurse Practitioner Family Medicine 01/19/24 [place] Relationship Specialty Start Date End Date Natalie Hernandez MD [address] [place] [address] PCP - General Family Medicine 09/15/22 [place] Relationship Specialty Start Date End Date Natalie Hernandez MD [address] [place] [address] PCP - General Family Medicine 09/15/22 [place] Car[place] Relationship Specialty Start Date End Date Natalie Hernandez MD [address] [place] [address] PCP - General Family Medicine 09/15/22 Blossom Cody NP [address] [place] [address] Nurse Practitioner Family Medicine 01/19/24 [place] Carver Relationship Specialty Start Date End Date Natalie Hernandez MD [address] [place] [address] PCP - General Family [facility] 09/15/22 Blossom Cody NP [address] [place] [address] Nurse Practitioner [facility] 01/19/24 [place] Carver Relationship Specialty Start Date End Date Natalie Hernandez MD [address] [place] [address] PCP - [facility] 09/15/22 Blossom Cody NP [address] [place] [address] Nurse Practitioner [facility] 01/19/24 [place] Carver Relationship Specialty Start Date End Date Natalie Hernandez MD PCP - General [facility] 09/15/22 Blossom Cody NP Nurse Practitioner [facility] 01/19/24 [place] Carver Relationship Specialty Start Date End Date Natalie Hernandez MD PCP - General Family [facility] 09/15/22 Blossom Cody NP Nurse Practitioner [facility] 01/19/24 Goals (unrecognized section and content) [...] BE BASED ON THE PRIMARY CLINICAL RECORDS. [facility] [employer] [facility]. provides no warranty or guarantee of the accuracy or completeness of information in this document.
== END 2024-11-22 09:47 | disposition home or self-care (01) ==
LOC: WC 09:46
PROVIDERS: PCP Family Medicine; Visit Provider Physician Assistant
DX: L84 Corns and callosities (principal); E11.65 Type 2 diabetes mellitus with hyperglycemia
CPT/HCPCS: G0463

== ENCOUNTER 2024-12-13 10:16 | Outpatient (OUT) | payer OTHER, SELFPAY ==
--- OUTSIDE RECORDS SUMMARY | 2024-04-26 04:00 | XMS_ITS ---
Author Organization [facility] in [place] Address [address] [place] [address] Care Team Providers Care Aadc Plans Staff Officer Name Role Phone Natalie Ryan Primary Care Provider Jesus Dai [phone] REASON FOR VISIT wound - RT foot I&D Encounters Encounter Location Date Provider Diagnosis THE [address] [address] 04/26/2024 Jesus Feldman Plan Of Treatment No Information Progress Notes * MIKE Trev BDOB: 0 (44 yo M)Acc No.[id number]:04/26/2024 UNLOCKED PROGRESS NOTE Patient: Trev REDDY Provider: Boris Feldman DPM, MS :1980 A ge:43 Y S ex:Male Date:04/26/2024 Address:[address] [place], [place] [id number] Pcp:Natalie Ryan Check Out:01:07 PM EST * * Electronic signature of Rolando Feldman DPM on 12/13/2024 at 10:18 AM EDT Sign off status: Pending Visit Status: Isiah HK (Check Out) * Provider: Boris Feldman DPM, MS Date: 1 06/27/2023 Generated for Printi ng/Faxing/eTransmitting on: 0 12/13/2024 10:18 AM EDT
--- OUTSIDE RECORDS SUMMARY | 2024-04-28 04:30 | XMS_ITS ---
Author Organization [facility] in [place] Address [address] [place] [address] Care Team Providers Care Distribution Spec Name Role Phone Natalie Ryan Primary Care Provider Jesus Dai [phone] REASON FOR VISIT wound - I&D Encounters Encounter Location Date Provider Diagnosis [facility] [address] [place] [address] 04/28/2024 Jesus Feldman Plan Of Treatment No Information Progress Notes * MIKE Trev BDOB: 0 (44 yo M)Acc No.[id number]:04/28/2024 UNLOCKED PROGRESS NOTE Patient: Trev REDDY Provider: Boris Feldman DPM, MS :1980 A ge:43 Y S ex:Male Date:04/28/2024 Address:[address] [place], [place] [phone] Pcp:Natalie Ryan Check Out:01:10 PM EST * * Electronic signature of Rolando Feldman DPM on 12/13/2024 at 10:19 AM EDT Sign off status: Pending Visit Status: Isiah HK (Check Out) * Provider: Boris Feldman DPM, MS Date: 06/29/2023 Generated for [place] ng/Faleonciog/eTransmitting on: 0 12/13/2024 10:19 AM EDT
--- OUTSIDE RECORDS SUMMARY | 2024-12-13 10:18 | XMS_ITS | Encounter Summary ---
Author Organization [facility] Address [address] [place] [address] Care Team Providers Care Top Icer Name Role Phone Eric Hernandez MD Primary Care Provider [phone] Blossom Cody UTILITY OPERATOR Unavailable [phone] Encounter Details Date Type Department Care Team ([facility] st Contact Info) Description 04/28/2023 Clinisync [...] often do you attend chur ch or sikh services? More than 4 times per year 03/23/2023 Do you belong to any clubs o r organizations such as christianity groups, unions, fraternal or athletic groups, or [...] Description 01/31/2025 9:30 AM EDT Office Visit [facility] [address] [place] [id number] Maria Fernanda Olguin NP [address] [place] [address] documented as of this encounter Procedures Procedure Name Priority Date/Time Associated Diagnosis Comments XR FOOT LT MIN 3V 04/28/2023 2:2 6 PM EST documented in this encounter Results * XR FOOT LT MIN 3V (04/28/2023 2:26 PM EST) Anatomical Region Laterality Modality Other 04/28/2023 2:26 PM EST Narrative 04/28/2023 2:29 PM EST [address] [address] XRay Report Signed Patient: TREV MCKEON MR#: [id number] : 1980 Acct:[id number] Age/Sex: 42 / M ADM Date: 04/28/23 Loc: Attending Dr: Jesus Feldman D.P.M. Ordering Physician: Jesus Feldman D.P.M. Date of Service: 04/28/23 Procedure(s): XR foot LT min 3V Accession Number(s): [id number] cc: Jesus Feldman D.P.M.; ERIC HERNANDEZ [address] [address] Patient Name: TREV MCKEON MRN: [id number] date: 1980 Sex: M Assigned Patient Location: Current Patient Location: Accession/Order Number: [id number] Exam Date: 04/28/2023 10:10 Report Date: 04/28/2023 14:26 At the request of: JESUS FELDMAN Procedure: XR foot LT min 3V PROCEDURE: XR foot LT min 3V DATE: 04/28/2023 9:10 AM MIX MAKER COMPARISONS: 02/19/2023 CLINICAL INDICATION: LEFT FOOT BLISTER [...] Signed By: 04/28/23 1429 DD/ 1426 TD/TT: Hospice Administrator: Procedure Note Radiology, Radiologist, MD - 07/14/2023 [place] [address] XRay Report Signed Patient: TREV MCKEON BMR#: [id number] : 1980Acct:[id number] Age/Sex: 42 / MADM Date: 04/28/23 Loc: WC Attending Dr: Jesus Feldman D.P.M. Ordering Physician: Jesus Feldman D.P.M. Date of Service: 04/28/23 Procedure(s): XR foot LT min 3V Accession Number(s): [id number] cc: Jesus Feldman D.P.M.; ERIC HERNANDEZ [place] [address] Patient Name: TREV MCKEON MRN: [id number] date: 1980 Sex: M Assigned Patient Location: Current Patient Location: Accession/Order Number: [id number] Exam Date: 04/28/2023 10:10 Report Date: 04/28/2023 14:26 At the request of: JESUS FELDMAN Procedure: XR foot LT min 3V PROCEDURE: XR foot LT min 3V DATE: 04/28/2023 9:10 AM MIX MAKER COMPARISONS: 02/19/2023 CLINICAL INDICATION: LEFT FOOT BLISTER [...] Qasim Sosa M.D. Signed By:04/28/23 1429 DD/ 142 TD/TT: Hospice Administrator: us Generic External Data Provider [facility] Final Result documented in this encounter Visit Diagnoses Not on filedocumented in this encounter Care Teams Top Icer Relationship Specialty Start Date End Date Eric Hernandez MD PCP - General Family Medicine 09/15/22 Blossom Cody NP Nurse Practitioner Family Medicine 01/19/24 documented as of this encounter
--- OUTSIDE RECORDS SUMMARY | 2024-12-13 10:18 | XMS_ITS | Encounter Summary ---
Author Organization [facility] Address [address] [facility] [place] [address] Care Team Providers Care Packager Or Packer And Weigher Name Role Phone Natalie Ryan MD Primary Care Provider [phone] Blossom Cody HIGH PRESSURE BOILER OPERATOR Unavailable [phone] Encounter Details Date Type Department Care Team (Late Contact Info) Description 10/02/2022 Abstract [facility] Medicine [address] [place] [address] Natalie Ryan MD Social History Tobacco Use Types Packs/Day Years Used Date Smoking Tobacco: Never Assessed Sex and Gender Information Value Date Recorded Sex Assigned at Not on file Legal Sex Male 6:33 PM EDT Gender Identity Not on file Sexual Orientation Not on file documented as of this encounter Plan of Treatment Upcoming Encounters Date Type Department Care Team ([facility] Contact Info) Description 01/31/2025 9:30 AM EDT Office Visit [facility] Medicine [address] [place] [address] Maria Fernanda Olguin NP [address] [place] [address] documented as of this encounter Visit Diagnoses Not on filedocumented in this encounter Care Teams Packager Or Packer And Weigher Relationship Specialty Start Date End Date Natalie Ryan MD PCP - General Family Medicine 09/15/22 Blossom Cody NP Nurse Practitioner Family Medicine 01/19/24 documented as of this encounter
--- OUTSIDE RECORDS SUMMARY | 2024-12-13 10:18 | XMS_ITS | Encounter Summary ---
Author Organization [facility] Healthcare Address [address] [place] [address] Care Team Providers Care Passport Support Associate Name Role Phone Natalie Ryan MD Primary Care Provider Blossom Cody MOMD TEACHER Unavailable [phone] Encounter Details Date Type Department Care Team ([facility] Contact Info) Description 03/19/2023 Orders Only [facility] Family Medicine [address] [place] [address] Link Ortega NP [address] [place] [address] Social History Tobacco Use Types [...] 01/31/2025 9:30 AM EDT Office Visit [facility] [address] [place] [address] Maria Fernanda Olguin NP [address] [place], [place] [address] documented as of this encounter Procedures Procedure [...] on filedocumented in this encounter Care Teams Passport Support Associate Relationship Specialty Start Date End Date Natalie Ryan MD PCP - General Family Medicine 09/15/22 Blossom Cody NP Nurse Practitioner Family Medicine 01/19/24 documented as of this encounter
--- OUTSIDE RECORDS SUMMARY | 2024-12-13 10:18 | XMS_ITS | Encounter Summary ---
Author Organization [facility] Address [address] [facility] [place] [address] Care Team Providers Care Cloth Mercerizer Back Tender Name Role Phone Natalie Ryan MD Primary Care Provider [phone] Blossom Cody ASSOCIATE BUYER Unavailable [phone] Encounter Details Date Type Department Care Team (Late Contact Info) Description 09/22/2022 Abstract [facility] Medicine [address] [place] [address] Natalie Ryan MD Social History Tobacco Use Types Packs/Day Years Used Date Smoking Tobacco: Never Assessed Sex and Gender Information Value Date Recorded Sex Assigned at Not on file Legal Sex Male 6:33 PM EDT Gender Identity Not on file Sexual Orientation Not on file documented as of this encounter Plan of Treatment Upcoming Encounters Date Type Department Care Team ([facility] Contact Info) Description 01/31/2025 9:30 AM EDT Office Visit [facility] Medicine [address] [place] [address] Maria Fernanda Olguin NP [address] [place] [address] documented as of this encounter Visit Diagnoses Not on filedocumented in this encounter Care Teams Cloth Mercerizer Back Tender Relationship Specialty Start Date End Date Natalie Ryan MD PCP - General Family Medicine 09/15/22 Blossom Cody NP Nurse Practitioner Family Medicine 01/19/24 documented as of this encounter
--- OUTSIDE RECORDS SUMMARY | 2024-12-13 10:18 | XMS_ITS | Encounter Summary ---
Author Organization [facility] Address [address] [place] [address] Care Team Providers Care Coat Operator Insulator Name Role Phone Natalie Ryan MD Primary Care Provider [phone] Blossom Cody OPTICIAN Unavailable [phone] Encounter Details Date Type Department Care Team ([facility] st Contact Info) Description 08/02/2023 Abstract [facility] [address] [place] [address] Chidi Moore DPM [address] [place], [place] [address] Social History Tobacco Use Types Packs/Day Years [...] often do you attend chur ch or evangelical services? More than 4 times per year [...] or rent on time? Patient refused 03/23/20 Number of Places Lived in the Last [...] 01/31/2025 9:30 AM EDT Office Visit [facility] [address] [place] [address] Maria Fernanda Olguin NP [address] [place], [place] [address] documented as of this encounter Visit Diagnoses Not on filedocumented in this encounter Care Teams Coat Operator Insulator Relationship Specialty Start Date End Date Natalie Ryan MD PCP - General Family Medicine 09/15/22 Blossom Cody NP Nurse Practitioner Family Medicine 01/19/24 documented as of this encounter
--- OUTSIDE RECORDS SUMMARY | 2024-12-13 10:18 | XMS_ITS | Patient Health Record ---
Author Organization [facility] Address [address] [place] [address] Care Team Providers Care Tire Mold Engraver Name Role Phone Natalie Hernandez Primary Care Provider Natanael Dai [phone] Results Component Value Reference Range Notes XR foot RT min 3V (Not yet r eviewed by provider) Interpretation: Performing Lab: Notes/Report: Source Facility: [place] [address] XRay Report Signed Patient: TREV MCKEON MR#: [id number] : 1980 Acct:[id number] Age/Sex: 43 / M ADM Date: 04/25/24 Loc: Attending Dr: Martell Navas Ordering Physician: Martell Navas Date of Service: 04/25/24 Procedure(s): XR foot RT min 3V Accession Number(s): [id number] cc: Martell Navas; NATALIE HERNANDEZ [place] [address] Patient Name: TREV MCKEON MRN: [id number] date: 1980 Sex: M Assigned Patient Location: Current Patient Location: [place] Accession/Order Number: [id number] Exam Date: 04/25/2024 11:58 Report Date: 04/26/2024 [...] M.D. Signed By: 04/26/24905 DD/ 2 TD/TT: Purse Seiner: [place] [address] XRay Report Signed Patient: CITLALY MCKEON MR#: [id number] : 1980 Acct:[id number] Age/Sex: 43 / M ADM Date: 04/25/24 Loc: Attending Dr: Danielle Navas Ordering Physician: Martell Navas Date of Service: 04/25/24 Procedure(s): XR kristen t RT min 3V Accession Number(s): [id number] cc: Martell Navas; NATALIE HERNANDEZ [place] [phone] Patient Name: TREV MCKEON MRN: [id number] date: 1980 Sex: M Assigned Patient Location: Current Patient Location: [place] Accession/Order Numb er: [id number] Exam Date: 11:58 Report Date: 04/26/2024 09:03 [...] M.D. Signed By: 04/26/24905 DD/ 2 TD/TT: Purse Seiner: Aerobic Culture (Not yet rev iewed by provider) Interpretation: Performing Lab: Notes/Report: [facility] , Aerobic Culture See Below For Report WILL FOLLOW Aerobic Culture Aerobic Culture WILL FOLLOW Aerobic Culture Aerobic Culture Mixed skin maximiliano WILL FOLLOW Aerobic Culture Performing Lab: see note LC - [facility] LB Anaerobic Culture (Not [...] Culture Isolated O:PREDIS Anaerobic Culture Studies at [facility] have confirmed the Anaerobic Culture Isolated O:PREDIS Anaerobic Culture observations of ot rs who have demonstrated that Anaerobic Culture [...] Culture Isolated O:PREDIS Performing Lab: see note LC - [facility] LB Tissue Culture (Not yet [...] provider) Interpretation: Performing Lab: Notes/Report: Source Facility: [facility] [place] [address] XRay Report Signed Patient: TREV MCKEON MR#: [id number] : 1980 Acct:[id number] Age/Sex: 43 / M ADM Date: 04/25/24 Loc: [place] 204-[address]: Beth Root D.O. Ordering Physician: Natanael Feldman D.P.M. Date of Service: 04/26/24 Procedure(s): XR foot RT min 3V Accession Number(s): [id number] cc: Natanael Feldman D.P.M.; NATALIE HERNANDEZ [place] [address] Patient Name: TREV MCKEON MRN: [id number] date: 1980 Sex: M Assigned Patient Location: [place] Current Patient Location: [place] Accession/Order Number: [id number] Exam Date: 04/26/2024 10:30 Report Date: 04/26/2024 [...] Signed By: 04/26/24 1158 DD/ 1155 TD/TT: Purse Seiner: [place] [address] XRay Report Signed Patient: CITLALY MCKEON MR#: [id number] : 1980 Acct:[id number] Age/Sex: 43 / M ADM Date: 04/25/24 Loc: [place] 204-[address]: Ivette Root D.O. Ordering Physician: Natanael Feldman D.P.M. Date of Service: 04/26/24 Procedure(s): XR kristen t RT min 3V Accession Number(s): [id number] cc: Natanael Feldman D.P.M.; NATALIE HERNANDEZ [place] [phone] Patient Name: TREV MCKEON MRN: [id number] date: 1980 Sex: M Assigned Patient Location: [place] Current Patient Location: [place] Accession/Order Numb er: [id number] Exam Date: 10:30 Report Date: 04/26/2024 11:55 [...] Signed By: 04/26/24 1158 DD/ 1155 TD/TT: Purse Seiner: AFB Specimen Processing (Not yet reviewed by [...] Stain Result Gram Stain Result Performed at: [facility] Gram Stain Result Gram Stain Result [address] [place], [place] [id number] Gram Stain Result Gram Stain Result Sales Leader: Nancy vEerett PhD, Phone: [phone] Gram Stain Result Performing Lab: see note SEE REPORT - Skidder Loader Id information not found for OBX-specific television news producer legend LC - [facility] LB Fungus Stain (Not yet [...] Fast Culture Acid Fast Culture Performed at: [facility] Specimen has been received and testing has been initiated. Acid Fast Culture Acid Fast Culture [address] [place], [place] [id number] Specimen has been received and testing has been initiated. Acid Fast Culture Acid Fast Culture Sales Leader: Nancy Everett PhD, Phone: [phone] Specimen has been received and testing has been initiated. Acid Fast Culture Performing Lab: see note SEE REPORT - Skidder Loader Id information not found for OBX-specific television news producer legend [facility] Fungus (Mycology) Culture (N ot [...] (Mycology) Culture Fungus (Mycology) Culture Performed at: [facility] Fungus (Mycology) Culture Fungus (Mycology) Culture [address] [place] [phone] Fungus (Mycology) Culture Fungus (Mycology) Culture Sales Leader: Lalo Everett PhD, Phone: [phone] Fungus (Mycology) Culture Performing Lab: see note SEE REPORT - Skidder Loader Id information not found for OBX-specific television news producer legend [facility]us (Mycology) Culture (N ot yet reviewed [...] (Mycology) Culture Fungus (Mycology) Culture Performed at: [facility] Fungus (Mycology) Culture Fungus (Mycology) Culture [address] [place] [phone] Fungus (Mycology) Culture Fungus (Mycology) Culture Sales Leader: Lalo Everett PhD, Phone: [phone] Fungus (Mycology) Culture Performing Lab: see note [facility] SEE REPORT - Skidder Loader Id information not found for OBX-specific television news producer legend Fungus Stain (Not yet review ed by provider) Interpretation: Performing Lab: Notes/Report: [facility] , Fungus Stain See Below For Report Fungus Stain Fungus Stain SHAQ/Calcofluor preparation: no fungus observed. Fungus Stain Performing Lab: see note [facility] AFB Specimen Processing (Not yet reviewed by provider) Interpretation: Performing Lab: Notes/Report: Comment right ankle tissue [facility] , AFB Specimen Processing See Below For Report AFB Specimen Processing AFB Specimen Processing Tissue Grinding AFB Specimen Processing [facility]forming Lab: [facility] GRAM STAIN (Not yet reviewed by provider) Interpretation: Performing Lab: Notes/Report: [facility] , Gram Stain See Below For Report [...] Epithelial Cells Performing Lab: see note - [facility] LB Anaerobic Cult, Extended Inc ub (Not [...] O:PREDIS Anaerobic Cult, Extended Incub Studies at [facility] have confirmed the Isolated Anaerobic [...] Extended Incub O:PREDIS Performing Lab: see note - [facility] Gram Stain Result (Not yet r eviewed by provider) Interpretation: Performing Lab: Notes/Report: [facility] , Gram Stain Result See Below For Report Gram Stain Result Gram Stain Result No white blood cells seen. Gram Stain Result Gram Stain Result Gram Stain Result Gram Stain Result No organisms seen Gram Stain Result Gram Stain Result Performed at: [facility] Gram Stain Result Gram Stain Result [address] [place], [place] [phone] Gram Stain Result Gram Stain Result Sales Leader: Nancy Everett PhD, Phone: [phone] Gram Stain Result Performing Lab: see note SEE REPORT - Skidder Loader Id information not found for OBX-specific television news producer legend - [facility] LB Fungus (Mycology) Culture (N ot yet reviewed by provider) Interpretation: Performing Lab: Notes/Report: Comment right foot ulcer [facility] , Fungus (Mycology) Culture See Below For Report WILL FOLLOW Fungus (Mycology) Culture Fungus (Mycology) Culture No yeast or mold isolated after 4 weeks. WILL FOLLOW Fungus (Mycology) Culture Fungus (Mycology) Culture Performed at: [facility] WILL FOLLOW Fungus (Mycology) Culture Fungus (Mycology) Culture [address] [place], [place] [id number] WILL FOLLOW Fungus (Mycology) Culture Fungus (Mycology) Culture Sales Leader: Lalo Everett PhD, Phone: [phone] WILL FOLLOW Fungus (Mycology) Culture Performing Lab: see note - [facility] SEE REPORT - Skidder Loader Id information not found for OBX-specific television news producer legend Fungus Stain (Not yet review ed by provider) Interpretation: Performing Lab: Notes/Report: Comment right foot fascia for culture [facility] , Fungus Stain See Below For Report Fungus Stain Fungus Stain SHAQ/Calcofluor preparation: no fungus observed. Fungus Stain Performing Lab: see note - [facility] LB Acid Fast Culture (Not [...] Fast Culture Acid Fast Culture Performed at: [facility] Specimen has been received and testing has been initiated. Acid Fast Culture Acid Fast Culture [address] [place], [place] [id number] Specimen has been received and testing has been initiated. Acid Fast Culture Acid Fast Culture Sales Leader: Nancy Everett PhD, Phone: [phone] Specimen has been received and testing has been initiated. Acid Fast Culture Performing Lab: see note SEE REPORT - Skidder Loader Id information not found for OBX-specific television news producer legend LC - [facility] LB Acid [...] S F Amikacin S F Antibiotic Interpretation VEENS Status Gentamicin S F Isolated Piperacillin Meropenem [...] LC - [facility] LB SEE REPORT - Skidder Loader Id information not found for OBX-specific television news producer legend Anaerobic Culture (Not yet r [...] note - [facility] LB SEE REPORT - Skidder Loader Id information not found for OBX-specific television news producer legend Gram Stain Result (Not yet [...] Stain Result Gram Stain Result Performed at: [facility] Gram Stain Result Gram Stain Result [address] [place], [place] [phone] Gram Stain Result Gram Stain Result Sales Leader: Nancy Everett PhD, Phone: [phone] Gram Stain Result Performing Lab: see note SEE REPORT - Skidder Loader Id information not found for OBX-specific television news producer legend - [facility] LB Aerobic Culture [...] F Aerobic Culture Organism: Acinetobac ter baumannii (MARKETING COPYWRITER) : Ampicillin/Sulbactam Isolated Meropenem R F Ciprofloxacin [...] I F Aerobic Culture Acinetobacter todd newton (MARKETING COPYWRITER) Ampicillin/Sulbactam Isolated Meropenem R F Ciprofloxacin Gentamicin [...] I F [facility]erobic [facility] Ampicillin/Sulbactam Isolated Meropenem R F Ciprofloxacin Gentamicin [...] R F Ceftazidime I F Aerobic Culture [address] [place], [place] [id number] Ampicillin/Sulbactam Isolated Meropenem R F Ciprofloxacin Gentamicin [...] R F Ceftazidime I F Aerobic Culture Sales Leader: Nancy Everett PhD, Phone: [phone] Ampicillin/Sulbactam Isolated Meropenem R F Ciprofloxacin Gentamicin [...] R F Organism: Gram negative riavs : Meropenem Trimethoprim/Sulfametho xazole R F Cefepime [...] LC - [facility] LB SEE REPORT - Skidder Loader Id information not found for OBX-specific television news producer legend Anaerobic Culture (Not yet r [...] 1.1 Aerobic Culture Organism: Acinetobac ter baumannii (MARKETING COPYWRITER) : O:GNR Organism: Gram negative rivas : [...] Organism: 1.1 Aerobic Culture Acinetobacter todd newton (MARKETING COPYWRITER) O:GNR Organism: Gram negative rivas : O:CRAB [...] Status Organism: 1.1 Aerobic Culture Performed at: [facility] O:GNR Organism: Gram negative rivas : O:CRAB Isolated Isolated Aerobic Culture Antibiotic Interpretation EVENS Status Organism: 1.1 Aerobic Culture [address] [place], [place] [id number] O:GNR Organism: Gram negative rivas : O:CRAB Isolated Isolated Aerobic Culture Antibiotic Interpretation EVENS Status Organism: 1.1 Aerobic Culture Sales Leader: Nancy Everett PhD, Phone: [phone] O:GNR Organism: Gram negative rivas : O:CRAB [...] Performing Lab: see note SEE REPORT - Skidder Loader Id information not found for OBX-specific television news producer legend LC - [facility] LB Reason For Referral No Information Problems Problem Type SNOMED Code ICD Code Onset Dates Problem Status W/U Status Risk Notes Problem Foot ulcer due to type 2 diabetes mellitus (7850085017388) Type 2 diabetes mellitus with foot ulcer (E11.621) Active confirmed Problem Chronic ulcer of foot (988857139) 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 layer exposed (L97.422) Active confirmed Problem Hypertension (28704148) Hypertension (I10) Active confirmed Problem Acquired hallux rigidus (7614205) Hallux rigidus of left foot (M20.22) Active confirmed Problem Ulcer of left foot (disorder) (215749301) Chronic ulcer of left foot limited to breakdown of skin (L97.521) Active confirmed Problem Polyneuropathy due to type 2 diabetes mellitus (117947151) Diabetes mellitus with polyneuropathy (E11.42) Active confirmed Problem Foot ulcer due to type 2 diabetes mellitus (3349805081076) Diabetes mellitus with foot ulcer due to multiple causes (E11.621) Active confirmed Problem 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 confirmed Problem Hallux rigidus (1403101) Hallux rigidus (M20.20) Active confirmed Problem Acute osteomyelitis of ankle and/or foot (178927981) Acute osteomyelitis of right ankle or foot (M86.171) Active confirmed Problem Chronic foot ulcer, limited to breakdown of skin, left (L97.521) Active confirmed Problem Foot ulcer, left , with fat layer exposed (L97.522) Active confirmed Problem High cholesterol (44538358) High cholesterol (E78.00) Active confirmed Problem Chronic ulcer of great toe of left foot, limited to breakdown of skin (L97.521) Active confirmed Problem Acute osteomyelitis of ankle and/or foot (298199440) Acute hematogenous osteomyelitis of left foot (M86.072) Active confirmed Problem Non-pressure chronic ulcer of right heel and midfoot with other specified severity (L97.418) Active confirmed Problem Non-pressure chronic ulcer of other part of left foot with other specified severity (L97.528) Active confirmed Problem Ulcer of big toe (disorder) (683228950) Chronic ulcer of great toe of left foot with fat layer exposed (L97.522) Active confirmed Problem Ankle ulcer (630008206) Chronic ulcer of right ankle with fat layer exposed (L97.312) Active confirmed Problem Ankle ulcer (575068397) Ischemic ulcer of right ankle, 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) Active confirmed Problem Chronic ulcer of plantar surface of right midfoot with fat layer exposed (L97.412) Active confirmed Problem Chronic ulcer of left heel (disorder) (1046030679890356 5) Chronic ulcer of left heel limited to breakdown of skin (L97.421) Active confirmed Problem Ischemic ulcer o f left heel with fat layer exposed (L97.422) Active confirmed Encounters Encounter Location Date Provider Diagnosis [facility] [address] [place] [address] 04/26/2024 Natanael Feldman [facility] [address] [place] [address] 04/28/2024 Natanael [facility] Plan Of Treatment Pending Test Test Name [...] End Date [employer] [address] [address] [place] [id number] Trev Mckeon Self - patient is the insured
--- OUTSIDE RECORDS SUMMARY | 2024-12-13 10:18 | XMS_ITS | Clinical Summary ---
Author Organization [facility] Address [id number] [address] [place] [address] Care Team Providers Care Sorter Upholstery Parts Name Role Phone Natalie Ryan MD Primary Care Provider [phone] Allergies No known active allergies Medications insulin [...] each 8 Active lancets (ACCU-CHEK MULTICLIX LANCET) [facility] blood glucose check 100 each 8 Active [...] DIRECTED 11 8 Active ONETOUCH VERIO SYSTEM [facility] See Admin Instructions. 0 8 Active insulin [...] 5:45 AM 03/30/2018 7:23 PM Care Teams Sorter Upholstery Parts Relationship Specialty Start Date End Date Natalie Ryan MD [address] [place] [address] PCP - General Family Medicine 03/26/18
--- OUTSIDE RECORDS SUMMARY | 2024-12-13 10:18 | XMS_ITS | Encounter Summary ---
Author Organization [facility] Address [address] [facility] [place] [address] Care Team Providers Care Interventional Technologist Name Role Phone Eric Hernandez MD Primary Care Provider [phone] Blossom Cody CTO Unavailable [phone] Encounter Details Date Type Department Care Team ([facility] Contact Info) Description 02/19/2023 Clinisync Result Encounter [...] Upcoming Encounters Date Type Department Care Team ([facility] Contact Info) Description 01/31/2025 9:30 AM EDT Office Visit [facility] [address] [place] [phone] Maria Fernanda Olguin NP [address] [place], [place] [phone] (work) documented as of this encounter Procedures Procedure Name Priority Date/Time Associated Diagnosis Comments XR FOOT LT MIN 3V 02/19/2023 2:5 5 PM EDT documented in this encounter Results * XR FOOT LT MIN 3V (02/19/2023 2:55 PM EDT) Anatomical Region Laterality Modality Other 02/19/2023 2:55 PM EDT Narrative 02/19/2023 2:55 [place] [address] XRay Report Signed Patient: Trev Mckeon MR#: [id number] : 1980 Acct:[id number] Age/Sex: 42 / M ADM Date: 02/19/23 Loc: Attending Dr: Jesus Feldman D.P.M. Ordering Physician: Jesus Feldman M.D. Date of Service: 02/19/23 Procedure(s): XR foot LT min 3V Accession Number(s): [id number] cc: Jesus Feldman M.D.; ERIC HERNANDEZ [place] [id number] Patient Name: TREV MCKEON MRN: [id number]:[id number] date: 1980 Sex: M Assigned Patient Location: Current Patient Location: Accession/Order Number: [id number] Exam Date: 02/19/2023 10:00 Report Date: 02/19/2023 [...] changes and degenerative changes. Electronically authenticated by: KENY NAYAK Date: 02/19/2023 14:55 Dictated By: Keny Nayak M.D. Signed By: 02/19/23 1457 DD/ 1455 TD/TT: Games Manager: Procedure Note Radiology, Radiologist, MD - 02/19/2023 [place] [address] XRay Report Signed Patient: Trev Mckeon BMR#: [id number] : 1980Acct:[id number] Age/Sex: 42 / MADM Date: 02/19/23 Loc: Attending Dr: Jesus Feldman D.P.M. Ordering Physician: Jesus Feldman M.D. Date of Service: 02/19/23 Procedure(s): XR foot LT min 3V Accession Number(s): [id number] cc: Jesus Feldman M.D.; ERIC HERNANDEZ [place] [address] Patient Name: TREV MCKEON MRN: [id number] date: 1980 Sex: M Assigned Patient Location: Current Patient Location: Accession/Order Number: [id number] Exam Date: 02/19/2023 10:00 Report Date: 02/19/2023 [...] changes and degenerative changes. Electronically authenticated by: KENY NAYAK Date: 02/19/2023 14:55 Dictated By: Keny Nayak M.D. Signed By:02/19/23 1457 DD/ 145 TD/TT: Games Manager: us Generic External Data Provider [facility] Final Result documented in this encounter Visit Diagnoses Not on filedocumented in this encounter Care Teams Interventional Technologist Relationship Specialty Start Date End Date Eric Hernandez MD PCP - General Family Medicine 09/15/22 Blossom Cody NP Nurse Practitioner Family Medicine 01/19/24 documented as of this encounter
--- OUTSIDE RECORDS SUMMARY | 2024-12-13 10:18 | XMS_ITS | Encounter Summary ---
Author Organization [facility] Healthcare Address [address] [place] [address] Care Team Providers Care Plasterer Foreman Name Role Phone Natalie Ryan MD Primary Care Provider [phone] Blossom Cody PRACTICAL NURSING FACULTY Unavailable [phone] Encounter Details Date Type Department Care Team ([facility] Contact Info) Description 06/09/2023 Orders Only [facility] [address] [place] [address] Link Ortega NP [address] [place] [address] Social History Tobacco Use Types [...] often do you attend chur ch or pentecostal services? More than 4 times per year 03/23/2023 Do you belong to any clubs o r organizations such as tenriism groups, unions, fraternal or athletic groups, or [...] 01/31/2025 9:30 AM EDT Office Visit [facility] [address] [place] [phone] Maria Fernanda Olguin NP [address] [place], [place] [phone] documented as of this encounter Procedures Procedure [...] on filedocumented in this encounter Care Teams Plasterer Foreman Relationship Specialty Start Date End Date Natalie Ryan MD PCP - General Family Medicine 09/15/22 Blossom Cody NP Nurse Practitioner Family Medicine 01/19/24 documented as of this encounter
--- OUTSIDE RECORDS SUMMARY | 2024-12-13 10:19 | XMS_ITS | Clinical Summary ---
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 More than 4 times per year 03/23/2023 Do you belong to any clubs o r organizations such as sabianist groups, unions, fraternal or athletic groups, or [...] Upcoming Encounters Date Type Department Care Team ([facility] st Contact Info) Description 01/31/2025 9:30 AM EDT Office Visit [facility] [address] [place] [phone] Maria Fernanda Olguin, JENNYFER [address] [place] [address] Health Maintenance Due Date Last Done Comments CT Colonography 1980 Colonoscopy 1980 Colorectal Cancer Screening 1980 FIT-DNA 1980 FIT 1980 FOBT 1980 Sigmoidoscopy 1980 Influenza Vaccine (#1) 2025 4, 03/24/2023, 03/28/2021, Additional history exists Insurance [employer] Care Teams Soft Water Mechanic Relationship Specialty Start Date End Date Natalie Ryan MD PCP - General Family Medicine 09/15/22 Blossom Cody NP Nurse Practitioner Family Medicine 01/19/24
--- OUTSIDE RECORDS SUMMARY | 2024-12-13 10:19 | XMS_ITS | Encounter Summary ---
Author Organization [facility] Address [address] [place] [address] Care Team Providers Care Residency Program Coordinator Name Role Phone Natalie Ryan MD Primary Care Provider [phone] Blossom Cody FLYING II INSTRUCTOR Unavailable [phone] Encounter Details Date Type Department Care Team ([facility] st Contact Info) Description 11/15/2023 [facility] [address] [place] [phone] Chidi Moore DPM [address] [place], [place] [phone] Social History Tobacco Use Types Packs/Day Years [...] Office Visit [facility] [address] [place] [phone] Maria Fernanda Olguin NP [address] [place], [place] [phone] documented as of this encounter Visit Diagnoses Not on filedocumented in this encounter Care Teams Residency Program Coordinator Relationship Specialty Start Date End Date Natalie Ryan MD PCP - General Family Medicine 09/15/22 Blossom Cody NP Nurse Practitioner Family Medicine 01/19/24 documented as of this encounter
--- OUTSIDE RECORDS SUMMARY | 2024-12-13 10:19 | XMS_ITS | Encounter Summary ---
Author Organization [facility] Address [address] [place] [address] Care Team Providers Care Transitions Manager Name Role Phone Natalie Hernandez MD Primary Care Provider [phone] Blossom Cody ASSISTANT PLANT CONTROL OPERATOR Unavailable [phone] Encounter Details Date Type Department Care Team [...] often do you attend chur ch or adventist services? More than 4 times per year [...] Description 01/31/2025 9:30 AM EDT Office Visit [facility] Medicine [address] [place] [phone] Maria Fernanda Olguin, JENNYFER [address] [place] [address] documented as of this encounter Procedures Procedure [...] been received and testing has been initiated. [facility] ANAEROBIC CULT, EXTENDED INCUB Organism: Prevotella disiens : [facility] ANAEROBIC CULT, EXTENDED INCUB *ABNORMAL* TB ANAEROBIC CULT, EXTENDED INCUB Scant growth TB ANAEROBIC CULT, EXTENDED INCUB Studies at [employer] have confirmed the [facility] ANAEROBIC CULT, EXTENDED INCUB observations of others who have demonstrated that [facility] ANAEROBIC CULT, EXTENDED INCUB Prevotella, Porphyromonas and Bacteroides species TB ANAEROBIC CULT, EXTENDED INCUB other than Bacteroides fragilis group are routinely [facility] ANAEROBIC CULT, EXTENDED INCUB susceptible to Cefoxitin, Chloramphenicol, and [facility] ANAEROBIC CULT, EXTENDED INCUB Metronidazole and are usually resistant to Penicillin. [facility] ANAEROBIC CULT, EXTENDED INCUB Prevotella disiens [facility] ANAEROBIC CULT, EXTENDED INCUB O:PREDIS Isolated TB 04/26/2024 10:0 7 AM EST 04/26/2024 12:13 PM EST Narrative [facility] - 05/11/2024 4:08 PM EST us Generic External Data Provider LAB BLOOD ORDERAB LES Final Result [facility] * ANAEROBIC CULTURE (04/26/2024 10:07 AM EST) ANAEROBIC CULTURE Anaerobic Culture [facility] ANAEROBIC CULTURE Holding for possible anaerobes. [facility] ANAEROBIC CULTURE Organism: Prevotella disiens : [facility] ANAEROBIC CULTURE *ABNORMAL* TB ANAEROBIC CULTURE Light growth TB ANAEROBIC CULTURE Studies at [facility] have confirmed the [facility] ANAEROBIC CULTURE observations of others who have demonstrated that [facility] ANAEROBIC CULTURE Prevotella, Porphyromonas and Bacteroides [...] ORDERAB LES Final Result Performing Organization Address City/[facility]/ZIP Co de Phone Number [facility] * FUNGUS (MYCOLOGY) CULTURE (04/26/2024 10:07 AM EST) FUNGUS (MYCOLOGY) CULTURE Fungus (Mycology) Culture WILL FOLLOW [facility] FUNGUS (MYCOLOGY) CULTURE No yeast or mold isolated after 4 weeks. [facility] FUNGUS (MYCOLOGY) CULTURE Performed at: [facility] FUNGUS (MYCOLOGY) CULTURE [address] [place], [place] [id number] [facility] FUNGUS (MYCOLOGY) CULTURE Ground Operations Crew Member: Lalo Everett PhD, Phone: [phone] [facility] 04/26/2024 10:0 7 AM EST 04/26/2024 12:13 PM EST Narrative [facility] - 05/25/2024 12:08 PM EST Comment right foot ulcer us Generic External Data Provider LAB BLOOD ORDERAB LES Final Result [facility] * FUNGUS STAIN (04/26/2024 10:07 AM EST) FUNGUS STAIN Fungus Stain [facility] FUNGUS STAIN SHAQ/Calcofl uor preparation : no fungus observed. [facility] 04/26/2024 10:0 7 AM EST 04/26/2024 12:13 PM EST Narrative [facility] - 05/25/2024 12:08 PM EST Comment right foot ulcer Generic External Data Provider LAB BLOOD ORDERAB LES Final Result Performing Organization Address [facility] Co de Phone Number ADELA [facility] * FUNGUS (MYCOLOGY) CULTURE (04/26/2024 10:07 AM EST) FUNGUS (MYCOLOGY) CULTURE Fungus (Mycology) Culture WILL FOLLOW [facility] FUNGUS (MYCOLOGY) CULTURE No yeast or mold isolated after 4 weeks. [facility] FUNGUS (MYCOLOGY) CULTURE Performed at: [facility] FUNGUS (MYCOLOGY) CULTURE [address] [place], [place] [id number] [facility] FUNGUS (MYCOLOGY) CULTURE Ground Operations Crew Member: Lalo Everett PhD, Phone: [phone] [facility] 04/26/2024 10:0 7 AM EST 04/26/2024 12:13 PM EST Narrative [facility] - 05/25/2024 12:08 PM EST Comment right foot fascia for culture Generic External Data Provider LAB BLOOD ORDERAB LES Final Result Performing Organization Address [facility] de Phone Number [facility] * FUNGUS STAIN (04/26/2024 10:07 AM EST) FUNGUS STAIN Fungus Stain TB FUNGUS STAIN SHAQ/Calcofl uor preparation : no fungus observed. [facility] 04/26/2024 10:0 7 AM EST 04/26/2024 12:13 PM EST Narrative [facility] - 05/25/2024 12:08 PM EST Comment right foot fascia for culture Generic External Data Provider LAB BLOOD ORDERAB LES Final Result Performing Organization Address [facility] Co de Phone Number ADELA TB * GRAM STAIN RESULT (04/26/2024 10:07 AM EST) GRAM STAIN RESULT Gram Stain Result [facility] GRAM STAIN RESULT No white blood cells seen. [facility] GRAM STAIN RESULT TB GRAM STAIN RESULT Rare gram positive cocci TB GRAM STAIN RESULT Performed at: [facility] GRAM STAIN RESULT [address] [place], [place] [id number] [facility] GRAM STAIN RESULT Ground Operations Crew Member: Lalo Everett PhD, Phone: [phone] [facility] 04/26/2024 10:0 7 AM EST 04/26/2024 12:13 PM EST Narrative [facility] - 05/02/2024 3:08 PM EST Generic External Data Provider LAB BLOOD ORDERAB LES Final Result Performing Organization Address [facility] de Phone Number [facility] TB * AEROBIC CULTURE (04/26/2024 10:07 AM EST) AEROBIC CULTURE Aerobic Culture WILL FOLLOW TB AEROBIC CULTURE TB AEROBIC CULTURE Mixed skin maximiliano [facility] 04/26/2024 10:0 7 AM EST 04/26/2024 12:13 PM EST Narrative [facility] - 05/02/2024 3:08 PM EST Generic External Data Provider LAB BLOOD ORDERAB LES Final Result Performing Organization Address [facility] Phone Number [facility] TB * ACID FAST CULTURE (04/26/2024 10:07 AM EST) ACID FAST CULTURE Acid Fast Culture Specimen has been received and testing has been initiated. [facility] ACID FAST CULTURE Negative [facility] ACID FAST CULTURE No acid fast bacilli isolated after 6 weeks. TB ACID FAST CULTURE Performed at: [facility] TB ACID FAST CULTURE [address] [place], [place] [id number] TB ACID FAST CULTURE Ground Operations Crew Member: Lalo Everett PhD, Phone: [phone] [facility] 04/26/2024 10:0 7 AM EST 04/26/2024 12:13 PM EST Narrative [facility] - 06/10/2024 9:09 AM EST Generic External Data Provider LAB BLOOD ORDERAB LES Final Result Performing Organization Address [facility]/ZIP Co de Phone Number [facility]IN[facility] TB * ACID FAST SMEAR (04/26/2024 10:07 AM EST) ACID FAST SMEAR Acid Fast Smear Negative [facility] 04/26/2024 10:0 7 AM EST 04/26/2024 12:13 PM EST Narrative [facility] - 06/10/2024 9:09 AM EST Generic External Data Provider LAB BLOOD ORDERAB LES Final Result Performing Organization Address [facility] Co de Phone Number [facility] TB * AFB SPECIMEN PROCESSING (04/26/2024 10:07 AM EST) Pathologist [facility] AFB SPECIMEN PROCESSING AFB Specimen Processing [facility] AFB SPECIMEN PROCESSING Tissue Grinding [facility] 04/26/2024 10:0 7 AM EST 04/26/2024 12:13 PM EST Narrative [facility] - 06/10/2024 9:09 AM EST Generic External Data Provider LAB BLOOD ORDERAB LES Final Result Performing Organization Address [facility] de Phone Number KAT[facility]ZYNANV TB * TISSUE CULTURE (04/26/2024 10:07 AM EST) Pathologist [facility] TISSUE CULTURE Tissue Culture WILL FOLLOW [facility] TISSUE CULTURE [facility] TISSUE CULTURE Specimen has been received and testing has been initiated. [facility] 04/26/2024 10:0 7 AM EST 04/26/2024 12:13 PM EST Narrative [facility] - 05/11/2024 4:08 PM EST Generic External Data Provider LAB BLOOD ORDERAB LES Final Result Performing Organization Address [facility] de Phone Number [facility]ZY[facility]NV TB * GRAM STAIN RESULT (04/26/2024 10:07 AM EST) GRAM STAIN RESULT Gram Stain Result TB GRAM STAIN RESULT No white blood cells seen. TB GRAM STAIN RESULT TB GRAM STAIN RESULT No organisms seen TB GRAM STAIN RESULT Performed at: [facility] TB GRAM STAIN RESULT [address] [place], [place] [id number] TB GRAM STAIN RESULT Ground Operations Crew Member: Lalo Everett PhD, Phone: [phone] [facility] 04/26/2024 10:0 7 AM EST 04/26/2024 12:13 PM EST Narrative [facility] - 05/11/2024 4:08 PM EST Generic External Data Provider LAB BLOOD ORDERAB LES Final Result Performing Organization Address [facility] de Phone Number [facility] * ACID FAST CULTURE (04/26/2024 10:07 AM EST) ACID FAST CULTURE Acid Fast Culture Specimen has been received and testing has been initiated. [facility] ACID FAST CULTURE Negative [facility] ACID FAST CULTURE No acid fast bacilli isolated after 6 weeks. TB ACID FAST CULTURE [facility]formed at[facility] ACID FAST CULTURE [address] [place], [place] [id number] [facility] ACID FAST CULTURE Ground Operations Crew Member: Lalo Everett PhD, Phone: [phone] [facility] 04/26/2024 10:0 7 AM EST 04/26/2024 12:13 PM EST Narrative [facility] - 06/10/2024 9:09 AM EST Comment right foot fascia for culture Generic External Data Provider LAB BLOOD ORDERAB LES Final Result Performing Organization Address [facility] de Phone Number [facility] * ACID FAST SMEAR (04/26/2024 10:07 AM EST) ACID FAST SMEAR Acid Fast Smear Negative [facility] 04/26/2024 10:0 7 AM EST 04/26/2024 12:13 PM EST Narrative [facility] - 06/10/2024 9:09 AM EST Comment right foot fascia for culture us Generic External Data Provider LAB BLOOD ORDERAB LES Final Result Performing Organization Address City[facility] Co de Phone Number [facility] * AFB SPECIMEN PROCESSING (04/26/2024 10:07 AM EST) AFB SPECIMEN PROCESSING AFB Specimen Processing [facility] AFB SPECIMEN PROCESSING Tissue Grinding [facility] 04/26/2024 10:0 7 AM EST 04/26/2024 12:13 PM EST Narrative ADELA - 06/10/2024 9:09 AM EST Comment right foot fascia for culture us Generic External Data Provider LAB BLOOD ORDERAB LES Final Result [facility] * XR FOOT RT MIN 3V (04/26/2024 9:03 AM EST) Anatomical Region Laterality Modality Other 04/26/2024 9:03 AM EST Narrative 04/26/2024 9:06 [place] [address] XRay Report Signed Patient: TREV MCKEON MR#: [id number] : 1980 Acct:[id number] Age/Sex: 43 / M ADM Date: 04/25/24 Loc: Attending Dr: Martell Navas Ordering Physician: Martell Navas Date of Service: 04/25/24 Procedure(s): XR foot RT min 3V Accession Number(s): [id number] cc: Martell Navas; NATALIE HERNANDEZ [address] [address] Patient Name: TREV MCKEON MRN: [facility]:[id number] date: 1980 Sex: M Assigned Patient Location: Current Patient Location: [place] Accession/Order Number: [id number] Exam Date: 04/25/2024 11:58 Report Date: 04/26/2024 [...] M.D. Signed By: 04/26/24905 DD/ 2 TD/TT: Fancy Stitcher: Procedure Note Radiology, Radiologist, MD - 04/26/2024 [place] [address] XRay Report Signed Patient: TREV MCKEON BMR#: [id number] : 1980Acct:[id number] Age/Sex: 43 / MADM Date: 04/25/24 Loc: Attending Dr: Martell Navas Ordering Physician: Martell Navas Date of Service: 04/25/24 Procedure(s): XR foot RT min 3V Accession Number(s): [id number] cc: Martell Navas; NATALIE HERNANDEZ [place] [id number] Patient Name: TREV MCKEON MRN: [facility]:[id number] date: 1980 Sex: M Assigned Patient Location: Current Patient Location: [place] Accession/Order Number: [id number] Exam Date: 04/25/2024 11:58 Report Date: 04/26/2024 [...] Nayak M.D. Signed By:04/26/24905 DD/ 2 TD/TT: Fancy Stitcher: us Generic External Data Provider [facility] Final Result documented in this encounter Visit Diagnoses Not on filedocumented in this encounter Care Teams Transitions Manager Relationship Specialty Start Date End Date Natalie Hernandez MD PCP - General Family Medicine 09/15/22 Blossom Cody NP Nurse Practitioner Family Medicine 01/19/24 documented as of this encounter
--- OUTSIDE RECORDS SUMMARY | 2024-12-13 10:19 | XMS_ITS | Encounter Summary ---
Author Organization [facility] Healthcare Address [address] [place] [address] Care Team Providers Care Stitching 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 Name Role Phone Natalie Ryan MD Primary Care Provider [phone] Blossom Cody CHIROPRACTIC PRACTICE MANAGER Unavailable [phone] Encounter Details Date Type Department Care Team ([facility] Contact Info[facility] Description 01/27/2024 Orders Only [facility] Family Medicine [address] [place] [address] Link Ortega NP [address] [place] [address] Social History Tobacco Use Types [...] to sleep or slept in a senior care (including now)? Patient refused 03/23/2023 Sex and Gender Information Value Date Recorded Sex Assigned at Not on file Legal Sex Male 6:33 PM EDT Gender Identity Not on file Sexual Orientation Not on file documented as of this encounter Plan of Treatment Upcoming Encounters Date Type Department Care Team (Late st Contact Info) Description 01/31/2025 9:30 AM EDT [facility] [address] [place] [phone] Maria Fernanda Olguin NP [address] [place], [place] [phone] documented as of this encounter Procedures Procedure [...] on filedocumented in this encounter Care Teams Stitching 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 Relationship Specialty Start Date End Date Natalie Ryan MD PCP - General Family Medicine 09/15/22 Blossom Cody NP Nurse Practitioner Family Medicine 01/19/24 documented as of this encounter
--- OUTSIDE RECORDS SUMMARY | 2024-12-13 10:19 | XMS_ITS | Encounter Summary ---
Author Organization [facility] Address [address] [place] [address] Care Team Providers Care Cloth Boil Off 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 Name Role Phone Eric Hernandez MD Primary Care Provider [phone] Blossom Cody CHEMICAL RESEARCH WORKER Unavailable [phone] Encounter Details Date Type Department Care Team ([facility] st Contact Info) Description 11/02/2023 Clinisync [...] Description 01/31/2025 9:30 AM EDT [facility] [address] [place] [phone] Maria Fernanda Olguin NP [address] [place] [address] documented as of this encounter Procedures Procedure Name Priority Date/Time Associated Diagnosis Comments XR FOOT RT MIN 3V 11/02/2023 1:1 0 PM EDT documented in this encounter Results * XR FOOT RT MIN 3V (11/02/2023 1:10 PM EDT) Anatomical Region Laterality Modality Other 11/02/2023 1:10 PM EDT Narrative 11/02/2023 1:12 [place] [address] XRay Report Signed Patient: TREV MCKEON MR#: [id number] : 1980 Acct:[id number] Age/Sex: 43 / M ADM Date: 11/02/23 Loc: Attending Dr: lAex Johnson D.P.M. Ordering Physician: Alex Johnson D.P.M. Date of Service: 11/02/23 Procedure(s): XR foot RT min 3V Accession Number(s): [id number] cc: Alex Johnson D.P.M.; ERIC HERNANDEZ [address] [address] Patient Name: TREV MCKEON MRN: [id number] date: 1980 Sex: M Assigned Patient Location: Current Patient Location: Accession/Order Number: [id number] Exam Date: 11/02/2023 11:13 Report Date: 11/02/2023 [...] By: Franco Frances M.D. Signed By: 11/02/23 131 DD/ 131 TD/TT: Fleet Maintenance Foreman: Procedure Note Radiology, Radiologist, MD - 11/02/2023 [place] [address] XRay Report Signed Patient: TREV MCKEON BMR#: [id number] : 1980Acct:[id number] Age/Sex: 43 / MADM Date: 11/02/23 Loc: Attending Dr: Alex Johnson D.P.M. Ordering Physician: Alex Johnson D.P.M. Date of Service: 11/02/23 Procedure(s): XR foot RT min 3V Accession Number(s): [id number] cc: Alex Johnson D.P.M.; ERIC HERNANDEZ [place] [address] Patient Name: TREV MCKEON MRN: [id number] date: 1980 Sex: M Assigned Patient Location: Current Patient Location: Accession/Order Number: [id number] Exam Date: 11/02/2023 11:13 Report Date: 11/02/2023 [...] M.D. Signed By:11/02/23 1312 DD/ 1310 TD/TT: Fleet Maintenance Foreman: Generic External Data Provider [facility] Final Result documented in this encounter Visit Diagnoses Not on filedocumented in this encounter Care Teams Cloth Boil Off 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 Relationship Specialty Start Date End Date Eric Hernandez MD PCP - General Family Medicine 09/15/22 Blossom Cody NP Nurse Practitioner Family Medicine 01/19/24 documented as of this encounter
--- OUTSIDE RECORDS SUMMARY | 2024-12-13 10:19 | XMS_ITS | Encounter Summary ---
Author Organization [facility] Address [address] [place] [address] Care Team Providers Care Receptionist Scheduler Name Role Phone Natalie Ryan MD Primary Care Provider [phone] Blossom Cody SENIOR ANALYST Unavailable [phone] Encounter Details Date Type Department Care Team ([facility] st Contact Info) Description 05/19/2024 Abstract [facility] [address] [place] [address] Unallocated, Noms Provider, [address] [place] [address] Social History Tobacco Use Types Packs/Day Years [...] Office Visit [facility] [address] [place] [phone] Maria Fernanda Olguin NP [address] [place], [place] [phone] documented as of this encounter Visit Diagnoses Not on filedocumented in this encounter Care Teams Receptionist Scheduler Relationship Specialty Start Date End Date Natalie Ryan MD PCP - General Family Medicine 09/15/22 Blossom Cody NP Nurse Practitioner Family Medicine 01/19/24 documented as of this encounter
--- OUTSIDE RECORDS SUMMARY | 2024-12-13 10:19 | XMS_ITS | Encounter Summary ---
Author Organization [facility] Healthcare Address [address] [place] [address] Care Team Providers Care Patroller Name Role Phone Natalie Ryan MD Primary Care Provider [phone] Blossom Cody COMMUNITY AFFAIRS DIRECTOR Unavailable [phone] Encounter Details Date Type Department Care Team ([facility] Contact Info) Description 10/20/2023 Orders Only [facility] Family Medicine [address] [place] [address] Link Ortega NP [address] [place] [address] Social History Tobacco Use Types [...] often do you attend chur ch or zoroastrianism services? More than 4 times per year 03/23/2023 Do you belong to any clubs o r organizations such as confucianism groups, unions, fraternal or athletic groups, or [...] place to sleep or slept in a assisted (including now)? Patient refused 03/23/2023 Sex and Gender Information Value Date Recorded Sex Assigned at Not on file Legal Sex Male 6:33 PM EDT Gender Identity Not on file Sexual Orientation Not on file documented as of this encounter Plan of Treatment Upcoming Encounters Date Type Department Care Team (Late st Contact Info) Description 01/31/2025 9:30 AM EDT Office Visit [facility] [place] [facility] [address] [place] [phone] Maria Fernanda Olguin NP [address] [place], [place] [phone] documented as of this encounter Procedures Procedure [...] on filedocumented in this encounter Care Teams Patroller Relationship Specialty Start Date End Date Natalie Ryan MD PCP - General Family Medicine 09/15/22 Blossom Cody NP Nurse Practitioner Family Medicine 01/19/24 documented as of this encounter
--- OUTSIDE RECORDS SUMMARY | 2024-12-13 10:19 | XMS_ITS | Encounter Summary ---
Author Organization [facility] Healthcare Address [address] [place] [address] Care Team Providers Care Executive Associate Name Role Phone Natalie Ryan MD Primary Care Provider Blossom Cody SIX COLOR PRESS OPERATOR Unavailable [phone] Encounter Details Date Type Department Care Team ([facility] Contact Info) Description 08/16/2024 Orders Only [facility] Family Medicine [address] [place] [phone] Terence Glass MD [address] [place] [address] Social History Tobacco Use Types [...] 01/31/2025 9:30 AM EDT Office Visit [facility] Medicine [address] [place] [phone] Maria Fernanda Olguin NP [address] [place], [place] [phone] documented as of this encounter Procedures Procedure [...] on filedocumented in this encounter Care Teams Executive Associate Relationship Specialty Start Date End Date Shelby, Natalie Lozada MD PCP - General Family Medicine 09/15/22 Blossom Cody NP Nurse Practitioner Family Medicine 01/19/24 documented as of this encounter
--- OUTSIDE RECORDS SUMMARY | 2024-12-13 10:19 | XMS_ITS | Encounter Summary ---
Author Organization [facility] Address [address] [place] [address] Care Team Providers Care Transmitter Chief Name Role Phone Natalie Ryan MD Primary Care Provider [phone] Blossom Cody HOT WATER HEATER INSTALLER Unavailable Encounter Details Date Type Department Care Team ([facility] st Contact Info) Description 09/20/2023 Abstract [facility] [address] [place] [phone] Chidi Moore DPM [address] [place], [place] [phone] Social History Tobacco Use Types Packs/Day Years [...] Office Visit [facility] [address] [place] [phone] Maria Fernanda Olguin NP [address] [place], [place] [phone] documented as of this encounter Visit Diagnoses Not on filedocumented in this encounter Care Teams Transmitter Chief Relationship Specialty Start Date End Date Natalie Ryan MD PCP - General Family Medicine 09/15/22 Blossom Cody NP Nurse Practitioner Family Medicine 01/19/24 documented as of this encounter
--- OUTSIDE RECORDS SUMMARY | 2024-12-13 10:19 | XMS_ITS | Encounter Summary ---
Author Organization [facility] Healthcare Address [address] [place] [address] Care Team Providers Care Supervisor Fleshing Name Role Phone Natalie Ryan MD Primary Care Provider [phone] Blossom Cody THREAD GRINDER TOOL Unavailable [phone] Encounter Details Date Type Department Care Team ([facility] Contact Info) Description 12/24/2023 Orders Only [facility] Family Medicine [address] [place] [address] Terence Glass MD [address] [place] [address] Social History Tobacco Use Types [...] often do you attend chur ch or muslim services? More than 4 times per year [...] Description 01/31/2025 9:30 AM EDT Office Visit [facility] [address] [place] [phone] Maria Fernanda Olguin NP [address] [place], [place] [phone] documented as of this encounter Procedures Procedure [...] filedocumented in this encounter Care Teams Supervisor Fleshing Relationship Specialty Start Date End Date Johnly, Natalie Lozada MD PCP - General Family Medicine 09/15/22 Blossom Cody NP Nurse Practitioner Family Medicine 01/19/24 documented as of this encounter
--- OUTSIDE RECORDS SUMMARY | 2024-12-13 10:19 | XMS_ITS | Encounter Summary ---
Author Organization [facility] Healthcare Address [address] [place] [address] Care Team Providers Care Solid Plasterer Name Role Phone Natalie Ryan MD Primary Care Provider [phone] Blossom Cody RECORDING STUDIO INTERN Unavailable [phone] Encounter Details Date Type Department Care Team ([facility] Contact Info) Description 06/15/2024 Abstract [facility] Family Medicine [address] [place] [phone] Natalie Ryan MD Social History Tobacco Use [...] How often do you attend chur or adventist services? More than 4 times [...] Office Visit [facility] [address] [place] [address] Maria Fernanda Olguin NP [address] [place], [place] [phone] documented as of this encounter Visit Diagnoses Not on filedocumented in this encounter Care Teams Solid Plasterer Relationship Specialty Start Date End Date Natalie Ryan MD PCP - General Family Medicine 09/15/22 Blossom Cody NP Nurse Practitioner Family Medicine 01/19/24 documented as of this encounter
--- OUTSIDE RECORDS SUMMARY | 2024-12-13 10:19 | XMS_ITS | Encounter Summary ---
Author Organization [facility] Healthcare Address [address] [place] [address] Care Team Providers Care Supervisor Process Testing Name Role Phone Natalie Ryan MD Primary Care Provider [phone] Blossom Cody IMPREGNATION OPERATOR Unavailable [phone] Encounter Details Date Type Department Care Team ([facility] Contact Info) Description 08/21/2024 Orders Only [facility] Family Medicine [address] [place] [address] Link Ortega NP [address] [place] [address] Social History Tobacco Use Types [...] often do you attend chur ch or protestant services? More than 4 times per year [...] Description 01/31/2025 9:30 AM EDT [facility] [address] [place] [address] Maria Fernanda Olguin NP [address] [place], [place] [phone] documented as of this encounter Procedures Procedure [...] filedocumented in this encounter Care Teams Supervisor Process Testing Relationship Specialty Start Date End Date Natalie Ryan MD PCP - General Family Medicine 09/15/22 Blossom Cody NP Nurse Practitioner Family Medicine 01/19/24 documented as of this encounter
== END 2024-12-13 10:17 | disposition home or self-care (01) ==
LOC: WC 10:16
PROVIDERS: PCP Family Medicine; Visit Provider Physician Assistant
DX: L84 Corns and callosities (principal); E11.65 Type 2 diabetes mellitus with hyperglycemia
CPT/HCPCS: G0463

== ENCOUNTER 2025-01-03 10:40 | Outpatient (OUT) | payer OTHER, SELFPAY ==
--- OUTSIDE RECORDS SUMMARY | 2024-04-26 04:00 | XMS_ITS ---
Author Organization [facility] in [place] Address [address] [place] [address] Care Team Providers Care Sales Engagement Executive Name Role Phone Natalie Ryan Primary Care Provider Jesus Dai [phone] REASON FOR VISIT wound - RT foot I&D Encounters Encounter Location Date Provider Diagnosis THE [address] [address] 04/26/2024 Jesus Feldman Plan Of Treatment No Information Progress Notes * MIKE Trev BDOB: 0 (44 yo M)Acc No.[id number]:04/26/2024 UNLOCKED PROGRESS NOTE Patient: Trev REDDY Provider: Boris Feldman DPM, MS :1980 A ge:43 Y S ex:Male Date:04/26/2024 Address:[address] [place], [place] [id number] Pcp:Natalie Ryan Check Out:01:07 PM EST * * Electronic signature of Rolando Feldman DPM on 01/03/2025 at 10:42 AM EDT Sign off status: Pending Visit Status: Isiah HK (Check Out) * Provider: Boris Feldman DPM, MS Date: 1 06/27/2023 Generated for Printi ng/Faxing/eTransmitting on: 0 01/03/2025 10:42 AM EDT
--- OUTSIDE RECORDS SUMMARY | 2024-04-28 04:30 | XMS_ITS ---
Author Organization [facility] in [place] Address [address] [place] [address] Care Team Providers Care Chassis Mechanic Name Role Phone Natalie Ryan Primary Care Provider Jesus Dai [phone] REASON FOR VISIT wound - I&D Encounters Encounter Location Date Provider Diagnosis [facility] [address] [place] [address] 04/28/2024 Jesus Feldman Plan Of Treatment No Information Progress Notes * MIKE Trev BDOB: 0 (44 yo M)Acc No.[id number]:04/28/2024 UNLOCKED PROGRESS NOTE Patient: Trev REDDY Provider: Boris Feldman DPM, MS :1980 A ge:43 Y S ex:Male Date:04/28/2024 Address:[address] [place], [place] [id number] Pcp:Natalie Ryan Check Out:01:10 PM EST * * Electronic signature of Rolando Feldman DPM on 01/03/2025 at 10:42 AM EDT Sign off status: Pending Visit Status: Isiah HK (Check Out) * Provider: Boris Feldman DPM, MS Date: 1 06/29/2023 Generated for [place] ng/Faleonciog/eTransmitting on: 0 01/03/2025 10:42 AM EDT
--- OUTSIDE RECORDS SUMMARY | 2025-01-03 10:42 | XMS_ITS | Patient Health Record ---
Author Organization [facility] [place] Address [address] [place] [address] Care Team Providers Care Railroad Baggage Porter Name Role Phone Natalie Hernandez Primary Care Provider Natanael Dai Unavailable [phone] Results Component Value Reference Range Notes Gram Stain Result (Not yet r eviewed [...] Gram Stain Result Performed at: [facility] Gram Stain Result Gram Stain Result [address], [place] [id number] Gram Stain Result Gram Stain Result Carbonating Stone Cleaner: Nancy Everett PhD, Phone: [phone] Gram Stain Result Performing Lab: see note - [facility] SEE REPORT - Rail Car Operator Id information not found for OBX-specific scouts legend Aerobic Culture (Not yet rev iewed [...] LC - [facility] SEE REPORT - Rail Car Operator Id information not found for OBX-specific scouts legend AFB Specimen Processing (Not yet reviewed [...] Acid Fast Culture Performed at: [facility] Acid Fast Culture Specimen has been received and testing has been initiated. Acid Fast Culture [address], [place] [id number] Acid Fast Culture Specimen has been received and testing has been initiated. Acid Fast Culture Carbonating Stone Cleaner: Nancy Everett PhD, Phone: [phone] Acid Fast Culture Specimen has been received and testing has been initiated. Performing Lab: see note - [facility] SEE REPORT - Rail Car Operator Id information not found for OBX-specific scouts legend Fungus Stain (Not yet review ed by provider) Interpretation: Performing Lab: Notes/Report: Comment right foot fascia for culture [facility] , Fungus Stain See Below For Report Fungus Stain Fungus Stain SHAQ/Calcofluor preparation: no fungus observed. Fungus Stain Performing Lab: see note - [facility] Fungus (Mycology) Culture (N ot yet reviewed by provider) Interpretation: Performing Lab: Notes/Report: Comment right foot ulcer [facility] , Fungus (Mycology) Culture See Below For Report Fungus (Mycology) Culture WILL FOLLOW Fungus (Mycology) Culture No yeast or mold isolated after 4 weeks. Fungus (Mycology) Culture WILL FOLLOW Fungus (Mycology) Culture Performed at: [facility] Fungus (Mycology) Culture WILL FOLLOW Fungus (Mycology) Culture [address], [place] [id number] Fungus (Mycology) Culture WILL FOLLOW Fungus (Mycology) Culture Carbonating Stone Cleaner: Lalo Everett PhD, Phone: [phone] Fungus (Mycology) Culture WILL FOLLOW Performing Lab: see note [facility] SEE REPORT - Rail Car Operator Id information not found for OBX-specific scouts legend Aerobic Culture (Not yet rev iewed by provider) Interpretation: Performing Lab: Notes/Report: [facility] , Aerobic Culture See Below For Report Aerobic Culture WILL FOLLOW Aerobic Culture Aerobic Culture WILL FOLLOW Aerobic Culture Mixed skin maximiliano Aerobic Culture WILL FOLLOW Performing Lab: see note [facility] LB Anaerobic Culture (Not yet r eviewed [...] Culture O:PREDIS Isolated Anaerobic Culture Studies at [facility] have confirmed the Anaerobic Culture O:PREDIS [...] Culture O:PREDIS Isolated Performing Lab: see note LC - [facility] [...] provider) Interpretation: Performing Lab: Notes/Report: Source Facility: [place] [address] XRay Report Signed Patient: TREV MCKEON MR#: [id number] : 1980 Acct:[id number] Age/Sex: 43 / M ADM Date: 04/25/24 Loc: [place] 204-[address]: Beth Root D.O. Ordering Physician: Natanael Feldman D.P.M. Date of Service: 04/26/24 Procedure(s): XR foot RT min 3V Accession Number(s): [id number] cc: Natanael Feldman D.P.M.; NATALIE HERNANDEZ [place] [address] Patient Name: TREV MCKEON MRN: [id number] date: 1980 Sex: M Assigned Patient Location: [place] Current Patient Location: [place] Accession/Order Number: [id number] Exam Date: 04/26/2024 10:30 Report Date: 04/26/2024 [...] Signed By: 04/26/24 1158 DD/ 1155 TD/TT: Infectious Diseases Physician: [place] [address] XRay Report Signed Patient: CITLALY MCKEON MR#: [id number] : 1980 Acct:[id number] Age/Sex: 43 / M ADM Date: 04/25/24 Loc: [place] 204-[address]: Ivette Root D.O. Ordering Physician: Natanael Feldman D.P.M. Date of Service: 04/26/24 Procedure(s): XR kristen t RT min 3V Accession Number(s): [id number] cc: Natanael Feldman D.P.M.; NATALIE HERNANDEZ [place] [address] Patient Name: TREV MCKEON MRN: [id number] date: 1980 Sex: M Assigned Patient Location: [place] Current Patient Location: [place] Accession/Order Numb er: [id number] Exam Date: 10:30 Report Date: 04/26/2024 11:55 [...] Signed By: 04/26/24 1158 DD/ 1155 TD/TT: Infectious Diseases Physician: AFB Specimen Processing (Not yet reviewed by [...] Gram Stain Result Performed at: [facility] Gram Stain Result Gram Stain Result [address], [place] [id number] Gram Stain Result Gram Stain Result Carbonating Stone Cleaner: Nancy Everett PhD, Phone: [phone] Gram Stain Result Performing Lab: see note - [facility] SEE REPORT - Rail Car Operator Id information not found for OBX-specific scouts legend Fungus Stain (Not yet review ed [...] Performing Lab: see note - [facility] GRAM STAIN (Not yet reviewed by provider) Interpretation: Performing Lab: Notes/Report: [facility] , Gram Stain See Below For [...] Epithelial Cells Performing Lab: see note - [facility] Fungus (Mycology) Culture (N ot yet [...] Fungus (Mycology) Culture Performed at: [facility] Fungus (Mycology) Culture Fungus (Mycology) Culture [address], [place] [id number] Fungus (Mycology) Culture Fungus (Mycology) Culture Carbonating Stone Cleaner: Lalo Everett PhD, Phone: [phone] Fungus (Mycology) Culture Performing Lab: see note [facility] SEE REPORT - Rail Car Operator Id information not found for OBX-specific scouts legend Acid Fast Culture (Not yet r [...] Acid Fast Culture Performed at: [facility] Acid Fast Culture Specimen has been received and testing has been initiated. Acid Fast Culture [address], [place] [id number] Acid Fast Culture Specimen has been received and testing has been initiated. Acid Fast Culture Carbonating Stone Cleaner: Nancy Everett PhD, Phone: [phone] Acid Fast Culture Specimen has been received and testing has been initiated. Performing Lab: see note [facility] SEE REPORT - Rail Car Operator Id information not found for OBX-specific scouts legend Acid Fast Smear (Not yet rev iewed by provider) Interpretation: Performing Lab: Notes/Report: Comment right ankle tissue [facility] , Acid Fast Smear See Below For Report Acid Fast Smear Negative Performing Lab: see note [facility] AFB Specimen Processing (Not yet reviewed by provider) Interpretation: Performing Lab: Notes/Report: Comment right ankle tissue [facility] , AFB Specimen Processing See Below For Report AFB Specimen Processing AFB Specimen Processing Tissue Grinding AFB Specimen Processing Performing Lab: see note [facility] Anaerobic Cult, Extended Inc ub (Not [...] Isolated Anaerobic Cult, Extended Incub Studies at [facility] have confirmed the Anaerobic Cult, Extended Incub [...] Incub O:PREDIS Isolated Performing Lab: see note [facility] Gram Stain Result (Not yet r eviewed by provider) Interpretation: Performing Lab: Notes/Report: [facility] , Gram Stain Result See Below For Report Gram Stain Result Gram Stain Result No white blood cells seen. Gram Stain Result Gram Stain Result Gram Stain Result Gram Stain Result No organisms seen Gram Stain Result Gram Stain Result Performed at: [facility] Gram Stain Result Gram Stain Result [address], [place] [id number] Gram Stain Result Gram Stain Result Carbonating Stone Cleaner: Nancy Everett PhD, Phone: [phone] Gram Stain Result Performing Lab: see note [facility] SEE REPORT - Rail Car Operator Id information not found for OBX-specific scouts legend XR foot RT min 3V (Not yet r eviewed by provider) Interpretation: Performing Lab: Notes/Report: Source Facility: [place] [address] XRay Report Signed Patient: TREV MCKEON MR#: [id number] : 1980 Acct:[id number] Age/Sex: 43 / M ADM Date: 04/25/24 Loc: Attending Dr: Martell Navas Ordering Physician: Martell Navas Date of Service: 04/25/24 Procedure(s): XR foot RT min 3V Accession Number(s): [id number] cc: Martell Navas; NATALIE HERNANDEZ [place] [address] Patient Name: TREV MCKEON MRN: [id number] date: 1980 Sex: M Assigned Patient Location: Current Patient Location: [place] Accession/Order Number: [id number] Exam Date: 04/25/2024 11:58 Report Date: 04/26/2024 [...] M.D. Signed By: 04/26/24905 DD/ 2 TD/TT: Infectious Diseases Physician: [place] [address] XRay Report Signed Patient: CITLALY MCKEON MR#: [id number] : 1980 Acct:[id number] Age/Sex: 43 / M ADM Date: 04/25/24 Loc: Attending Dr: Danielle Navas Ordering Physician: Martell Navas Date of Service: 04/25/24 Procedure(s): XR kristen t RT min 3V Accession Number(s): [id number] cc: Martell Navas; NATALIE HERNANDEZ [place] [address] Patient Name: TREV MCKEON MRN: [id number] date: 1980 Sex: M Assigned Patient Location: Current Patient Location: [place] Accession/Order Numb er: [id number] Exam Date: 11:58 Report Date: 04/26/2024 09:03 [...] M.D. Signed By: 04/26/24905 DD/ 2 TD/TT: Infectious Diseases Physician: Aerobic Culture (Not yet rev iewed by [...] LC - [facility] SEE REPORT - Rail Car Operator Id information not found for OBX-specific scouts legend Anaerobic Culture (Not yet r eviewed [...] F Aerobic Culture Organism: Acinetobac ter baumannii (SLATE ROOFER HELPER) : Aerobic Culture Organism: Gram negative rivas [...] R F Aerobic Culture Acinetobacter todd newton (SLATE ROOFER HELPER) Aerobic Culture Organism: Gram negative rivas : [...] xazole R F Aerobic Culture Performed at: [facility] Aerobic Culture Organism: Gram negative rivas : O:CRAB Isolated O:GNR Isolated Organism: 2.1 Antibiotic Interpretation VEENS Status Ampicillin/Sulbactam Ampicillin/Sulbactam S F Cefepime Cefepime I F Cefotaxime Cefotaxime R F Ceftazidime Ceftazidime I F Ceftriaxone Ceftriaxone I F Ciprofloxacin Ciprofloxacin R F Gentamicin Gentamicin S F Imipenem Imipenem R F Meropenem Meropenem R F Piperacillin Piperacillin R F Tetracycline Tetracycline R F Tobramycin Tobramycin S F Trimethoprim/Sulfametho xazole Trimethoprim/Sulfametho xazole R F Aerobic Culture [address], [place] [id number] Aerobic Culture Organism: Gram negative rivas : [...] xazole Trimethoprim/Sulfametho xazole R F Aerobic Culture Carbonating Stone Cleaner: Nancy Everett PhD, Phone: [phone] Aerobic Culture Organism: Gram negative rivas : [...] For Report Aerobic Culture Organism: Gram negative riavs : O:CRAB Isolated O:GNR Isolated Organism: 2.1 [...] LC - [facility] SEE REPORT - Rail Car Operator Id information not found for OBX-specific scouts legend Fungus (Mycology) Culture (N ot yet [...] Fungus (Mycology) Culture Performed at: [facility] Fungus (Mycology) Culture Fungus (Mycology) Culture [address], [place] [id number] Fungus (Mycology) Culture Fungus (Mycology) Culture Carbonating Stone Cleaner: Lalo Everett PhD, Phone: [phone] Fungus (Mycology) Culture Performing Lab: see note - [facility] SEE REPORT - Rail Car Operator Id information not found for OBX-specific scouts legend Anaerobic Culture (Not yet r eviewed by provider) Interpretation: Performing Lab: Notes/Report: [facility] , Anaerobic Culture See Below For Report Anaerobic Culture Anaerobic Culture No anaerobic growth in 72 hours. Anaerobic Culture Performing Lab: see note - [facility] [...] Status Aerobic Culture Organism: Acinetobac ter baumannii (SLATE ROOFER HELPER) : Aerobic Culture Organism: Gram negative rivas [...] EVENS Status Aerobic Culture Acinetobacter todd newton (SLATE ROOFER HELPER) Aerobic Culture Organism: Gram negative rivas : [...] Status Aerobic Culture Performed at: [facility] Aerobic Culture Organism: Gram negative rivas : O:CRAB Isolated O:GNR Isolated Organism: 1.1 Antibiotic Interpretation EVENS Status Aerobic Culture [address], [place] [id number] Aerobic Culture Organism: Gram negative rivas : O:CRAB Isolated O:GNR Isolated Organism: 1.1 Antibiotic Interpretation EVENS Status Aerobic Culture Carbonating Stone Cleaner: Nancy Everett PhD, Phone: [phone] Aerobic Culture Organism: Gram negative rivas : [...] LC - [facility] SEE REPORT - Rail Car Operator Id information not found for OBX-specific scouts legend Fungus Stain (Not yet review ed by provider) Interpretation: Performing Lab: Notes/Report: [facility] , Fungus Stain See Below For Report Fungus Stain Fungus Stain SHAQ/Calcofluor preparation: no fungus observed. Fungus Stain Performing Lab: see note LC - [facility] Reason For Referral No Information Problems Problem Type SNOMED Code ICD Code Onset Dates Problem Status W/U Status Risk Notes Problem Foot ulcer due to type 2 diabetes mellitus (5053422536406) Type 2 diabetes mellitus with foot ulcer (E11.621) Active confirmed Problem Chronic ulcer of foot (507718285) 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 layer exposed (L97.422) Active confirmed Problem Hypertension (88160073) Hypertension (I10) Active confirmed Problem Acquired hallux rigidus (4065736) Hallux rigidus of left foot (M20.22) Active confirmed Problem Ulcer of left foot (disorder) (417897482) Chronic ulcer of left foot limited to breakdown of skin (L97.521) Active confirmed Problem Polyneuropathy due to type 2 diabetes mellitus (197516300) Diabetes mellitus with polyneuropathy (E11.42) Active confirmed Problem Foot ulcer due to type 2 diabetes mellitus (0450738658223) Diabetes mellitus with foot ulcer due to multiple causes (E11.621) Active confirmed Problem 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 confirmed Problem Hallux rigidus (2562056) Hallux rigidus (M20.20) Active confirmed Problem Hyperglycemia due to type 2 diabetes mellitus (566479539947615) Controlled type 2 diabetes mellitus with hyperglycemia (E11.65) Active confirmed Problem Acute osteomyelitis of ankle and/or foot (434131342) Acute osteomyelitis of right ankle or foot (M86.171) Active confirmed Problem Chronic foot ulcer, limited to breakdown of skin, left (L97.521) Active confirmed Problem Foot ulcer, left , with fat layer exposed (L97.522) Active confirmed Problem High cholesterol (56381739) High cholesterol (E78.00) Active confirmed Problem Chronic ulcer of great toe of left foot, limited to breakdown of skin (L97.521) Active confirmed Problem Acute osteomyelitis of ankle and/or foot (664702887) Acute hematogenous osteomyelitis of left foot (M86.072) Active confirmed Problem Non-pressure chronic ulcer of right heel and midfoot with other specified severity (L97.418) Active confirmed Problem Non-pressure chronic ulcer of other part of left foot with other specified severity (L97.528) Active confirmed Problem Ulcer of big toe (disorder) (702169834) Chronic ulcer of great toe of left foot with fat layer exposed (L97.522) Active confirmed Problem Ankle ulcer (014511709) Chronic ulcer of right ankle with fat layer exposed (L97.312) Active confirmed Problem Ankle ulcer (634838561) Ischemic ulcer of right ankle, 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) Active confirmed Problem Chronic ulcer of plantar surface of right midfoot with fat layer exposed (L97.412) Active confirmed Problem Chronic ulcer of left heel (disorder) (9106680418653214 5) Chronic ulcer of left heel limited to breakdown of skin (L97.421) Active confirmed Problem Ischemic ulcer o f left heel with fat layer exposed (L97.422) Active confirmed Encounters Encounter Location Date Provider Diagnosis [facility] [address] [place] [address] 04/26/2024 Natanael Feldman [facility] [address] [place] [address] 04/28/2024 Natanael Feldman Plan Of Treatment Pending [...] End Date [employer] [address] [address] MIGUEL LEE [id number] Trev Mckoen Self - patient is the insured
--- OUTSIDE RECORDS SUMMARY | 2025-01-03 10:42 | XMS_ITS | Encounter Summary ---
Author Organization [facility] Address [address] [facility] [place] [address] Care Team Providers Care Block Engraver Name Role Phone Eric Hernandez MD Primary Care Provider [phone] Blossom Cody HAND METHOD LASTING MACHINE OPERATOR Unavailable [phone] Encounter Details Date Type Department Care Team ([facility] Contact Info) Description 02/19/2023 Clinisync Result [...] Upcoming Encounters Date Type Department Care Team ([facility] Contact Info) Description 01/31/2025 9:30 AM EDT Office Visit [facility] [address] [place] [address] Maria Fernanda Olguin NP [address] [place], [place] [phone] (work) documented as of this encounter Procedures Procedure Name Priority Date/Time Associated Diagnosis Comments XR FOOT LT MIN 3V 02/19/2023 2:5 5 PM EDT documented in this encounter Results * XR FOOT LT MIN 3V (02/19/2023 2:55 PM EDT) Anatomical Region Laterality Modality Other 02/19/2023 2:55 PM EDT Narrative 02/19/2023 2:55 [place] [address] XRay Report Signed Patient: Trev Mckeon MR#: [id number] : 1980 Acct:[id number] Age/Sex: 42 / M ADM Date: 02/19/23 Loc: Attending Dr: Jesus Feldman D.P.M. Ordering Physician: Jesus Feldman M.D. Date of Service: 02/19/23 Procedure(s): XR foot LT min 3V Accession Number(s): [id number] cc: Jesus Feldman M.D.; ERIC HERNANDEZ [place] [id number] Patient Name: TREV MCKEON MRN: [id number] date: 1980 Sex: M Assigned Patient Location: Current Patient Location: Accession/Order Number: [id number] Exam Date: 02/19/2023 10:00 Report Date: 02/19/2023 [...] Signed By: 02/19/23 1457 DD/ 1455 TD/TT: Supervisor Forming And Tempering: Procedure Note Radiology, Radiologist, MD - 02/19/2023 [place] [address] XRay Report Signed Patient: Trev Mckeon BMR#: [id number] : 1980Acct:[id number] Age/Sex: 42 / MADM Date: 02/19/23 Loc: Attending Dr: Jesus Feldman D.P.M. Ordering Physician: Jesus Feldman M.D. Date of Service: 02/19/23 Procedure(s): XR foot LT min 3V Accession Number(s): [id number] cc: Jesus Feldman M.D.; ERIC HERNANDEZ [place] [address] Patient Name: TREV MCKEON MRN: [id number] date: 1980 Sex: M Assigned Patient Location: Current Patient Location: Accession/Order Number: [id number] Exam Date: 02/19/2023 10:00 Report Date: 02/19/2023 [...] M.D. Signed By:02/19/23 1457 DD/ 145 TD/TT: Supervisor Forming And Tempering: us Generic External Data Provider [facility] Final Result documented in this encounter Visit Diagnoses Not on filedocumented in this encounter Care Teams Block Engraver Relationship Specialty Start Date End Date Eric Hernandez MD PCP - General Family Medicine 09/15/22 Blossom Cody NP Nurse Practitioner Family Medicine 01/19/24 documented as of this encounter
--- OUTSIDE RECORDS SUMMARY | 2025-01-03 10:42 | XMS_ITS | Encounter Summary ---
Author Organization [facility] Healthcare Address [address] [place] [address] Care Team Providers Care Marking Stitcher Name Role Phone Natalie Ryan MD Primary Care Provider [phone] Blossom Cody MATERIAL LOADER Unavailable [phone] Encounter Details Date Type Department Care Team (Late Contact Info) Description 10/06/2022 Clinisync Result Encounter NOM External Department Unsolicited Natalie Ryan MD Social [...] Description 01/31/2025 9:30 AM EDT Office Visit [facility] [address] [place] [address] Maria Fernanda Olguin NP [address] [place] [address] documented as of this encounter Procedures Procedure [...] on filedocumented in this encounter Care Teams Marking Stitcher Relationship Specialty Start Date End Date Natalie Ryan MD PCP - General Family Medicine 09/15/22 Blossom Cody NP Nurse Practitioner Family Medicine 01/19/24 documented as of this encounter
--- OUTSIDE RECORDS SUMMARY | 2025-01-03 10:42 | XMS_ITS | Encounter Summary ---
Author Organization [facility] Healthcare Address [address] [place] [address] Care Team Providers Care Glaze Maker Name Role Phone Natalie Ryan MD Primary Care Provider [phone] Blossom Cody ADOBE DEVELOPER Unavailable [phone] Encounter Details Date Type Department Care Team ([facility] Contact Info) Description 03/19/2023 Orders Only [facility] Family Medicine [address] [place] [address] Link Ortega NP [address] [place] [address] Social History Tobacco Use Types [...] 01/31/2025 9:30 AM EDT Office Visit [facility] [address] [place] [address] Maria Fernanda Olguin NP [address] [place], [place] [phone] documented as of this encounter Procedures Procedure [...] on filedocumented in this encounter Care Teams Glaze Maker Relationship Specialty Start Date End Date Natalie Ryan MD PCP - General Family Medicine 09/15/22 Blossom Cody NP Nurse Practitioner Family Medicine 01/19/24 documented as of this encounter
--- OUTSIDE RECORDS SUMMARY | 2025-01-03 10:42 | XMS_ITS | Encounter Summary ---
Author Organization [facility] Healthcare Address [address] [place] [address] Care Team Providers Care Cold Press Loader Name Role Phone Natalie Ryan MD Primary Care Provider [phone] Blossom Cody AWNING ASSEMBLER Unavailable [phone] Encounter Details Date Type Department Care Team ([facility] Contact Info) Description 06/09/2023 Orders Only [facility] Family Medicine [address] [place] [address] Link Ortega NP [address] [place] [address] Social History Tobacco Use Types [...] often do you attend chur ch or temple services? More than 4 times per year [...] place to sleep or slept in a halfway (including now)? Patient refused 03/23/2023 Sex and Gender Information Value Date Recorded Sex Assigned at Not on file Legal Sex Male 6:33 PM EDT Gender Identity Not on file Sexual Orientation Not on file documented as of this encounter Plan of Treatment Upcoming Encounters Date Type Department Care Team (Late st Contact Info) Description 01/31/2025 9:30 AM EDT Office Visit [facility] [address] [place] [phone] Maria Fernanda Olguin NP [address] [place], [place] [address] documented as of this encounter Procedures Procedure [...] on filedocumented in this encounter Care Teams Cold Press Loader Relationship Specialty Start Date End Date Natalie Ryan MD PCP - General Family Medicine 09/15/22 Blossom Cody NP Nurse Practitioner Family Medicine 01/19/24 documented as of this encounter
--- OUTSIDE RECORDS SUMMARY | 2025-01-03 10:42 | XMS_ITS | Encounter Summary ---
Author Organization [facility] Healthcare Address [address] [place] [address] Care Team Providers Care Rubble Placer Name Role Phone Natalie Ryan MD Primary Care Provider [phone] Blossom Cody RESIDENTIAL SALES REPRESENTATIVE Unavailable [phone] Encounter Details Date Type Department Care Team ([facility] Contact Info) Description 01/27/2024 Orders Only [facility] Family Medicine [address] [place] [address] Link Ortega NP [address] [place] [address] Social History Tobacco Use Types [...] often do you attend chur ch or restoration services? More than 4 times per year [...] Description 01/31/2025 9:30 AM EDT [facility] [address] [place] [address] Maria Fernanda Olguin NP [address] [place], [place] [address] documented as of this encounter Procedures Procedure [...] on filedocumented in this encounter Care Teams Rubble Placer Relationship Specialty Start Date End Date Natalie Ryan MD PCP - General Family Medicine 09/15/22 Blossom Cody NP Nurse Practitioner Family Medicine 01/19/24 documented as of this encounter
--- OUTSIDE RECORDS SUMMARY | 2025-01-03 10:42 | XMS_ITS | Encounter Summary ---
Author Organization [facility] Address [address] [facility] [place] [address] Care Team Providers Care Parent Educator Name Role Phone Natalie Ryan MD Primary Care Provider [phone] Blossom Cody DENTAL INSTRUMENT MAKER Unavailable [phone] Encounter Details Date Type Department Care Team (Late Contact Info) Description 09/22/2022 Abstract [facility] Medicine [address] [place] [address] Natalie Ryan MD Social History Tobacco Use Types Packs/Day Years Used Date Smoking Tobacco: Never Assessed Sex and Gender Information Value Date Recorded Sex Assigned at Not on file Legal Sex Male 6:33 PM EDT Gender Identity Not on file Sexual Orientation Not on file documented as of this encounter Plan of Treatment Upcoming Encounters Date Type Department Care Team ([facility] Contact Info) Description 01/31/2025 9:30 AM EDT Office Visit [facility] Medicine [address] [place] [address] Maria Fernanda Olguin NP [address] [place] [address] documented as of this encounter Visit Diagnoses Not on filedocumented in this encounter Care Teams Parent Educator Relationship Specialty Start Date End Date Natalie Ryan MD PCP - General Family Medicine 09/15/22 Blossom Cody NP Nurse Practitioner Family Medicine 01/19/24 documented as of this encounter
--- OUTSIDE RECORDS SUMMARY | 2025-01-03 10:42 | XMS_ITS | Encounter Summary ---
Author Organization [facility] Address [address] [place] [address] Care Team Providers Care Corrections Lieutenant Name Role Phone Natalie Ryan MD Primary Care Provider [phone] Blossom Cody PROCESS ANALYST Unavailable [phone] Encounter Details Date Type Department Care Team ([facility] st Contact Info) Description 08/02/2023 Abstract [facility] [address] [place] [phone] Chidi Moore DPM [address] [place], [place] [phone] Social History Tobacco Use Types Packs/Day Years [...] Office Visit [facility] [address] [place] [phone] Maria Fernanda Olguin NP [address] [place], [place] [phone] documented as of this encounter Visit Diagnoses Not on filedocumented in this encounter Care Teams Corrections Lieutenant Relationship Specialty Start Date End Date Natalie Ryan MD PCP - General Family Medicine 09/15/22 Blossom Cody NP Nurse Practitioner Family Medicine 01/19/24 documented as of this encounter
--- OUTSIDE RECORDS SUMMARY | 2025-01-03 10:42 | XMS_ITS | Encounter Summary ---
Author Organization [facility] Address [address] [place] [address] Care Team Providers Care Director Vaccine Name Role Phone Natalie Ryan MD Primary Care Provider [phone] Blossom Cody SAFEMAKER Unavailable [phone] Encounter Details Date Type Department Care Team ([facility] Contact Info) Description 06/15/2024 Abstract [facility] Family Medicine [address] [place] [phone] Natalie Ryan MD Social History Tobacco Use [...] How often do you attend chur or holiness services? More than 4 times per year [...] Office Visit [facility] [address] [place] [address] Maria Fernanda Olguin NP [address] [place], [place] [address] documented as of this encounter Visit Diagnoses Not on filedocumented in this encounter Care Teams Director Vaccine Relationship Specialty Start Date End Date Natalie Ryan MD PCP - General Family Medicine 09/15/22 Blossom Cody NP Nurse Practitioner Family Medicine 01/19/24 documented as of this encounter
--- OUTSIDE RECORDS SUMMARY | 2025-01-03 10:42 | XMS_ITS | Encounter Summary ---
Author Organization [facility] Address [address] [facility] [place] [address] Care Team Providers Care Manager Administration Name Role Phone Natalie Ryan MD Primary Care Provider [phone] Blossom Cody PLASTIC TOP ASSEMBLER Unavailable [phone] Encounter Details Date Type Department Care Team (Late Contact Info) Description 10/02/2022 Abstract [facility] Medicine [address] [place] [address] Natalie Ryan MD Social History Tobacco Use Types Packs/Day Years Used Date Smoking Tobacco: Never Assessed Sex and Gender Information Value Date Recorded Sex Assigned at Not on file Legal Sex Male 6:33 PM EDT Gender Identity Not on file Sexual Orientation Not on file documented as of this encounter Plan of Treatment Upcoming Encounters Date Type Department Care Team ([facility] Contact Info) Description 01/31/2025 9:30 AM EDT Office Visit [facility] Medicine [address] [place] [address] Maria Fernanda Olguin NP [address] [place] [address] documented as of this encounter Visit Diagnoses Not on filedocumented in this encounter Care Teams Manager Administration Relationship Specialty Start Date End Date Natalie Ryan MD PCP - General Family Medicine 09/15/22 Blossom Cody NP Nurse Practitioner Family Medicine 01/19/24 documented as of this encounter
--- OUTSIDE RECORDS SUMMARY | 2025-01-03 10:42 | XMS_ITS | Encounter Summary ---
Author Organization [facility] Address [address] [place] [address] Care Team Providers Care Pilot Can Router Name Role Phone Eric Hernandez MD Primary Care Provider [phone] Blossom Coyd FISH CUTTER Unavailable [phone] Encounter Details Date Type Department Care Team ([facility] st Contact Info) Description 04/28/2023 [...] often do you attend chur ch or christian services? More than 4 times per year [...] 01/31/2025 9:30 AM EDT Office Visit [facility] Medicine [address] [place] [phone] Maria Fernanda Olguin NP [address] [place] [address] documented as of this encounter Procedures Procedure Name Priority Date/Time Associated Diagnosis Comments XR FOOT LT MIN 3V 04/28/2023 2:2 6 PM EST documented in this encounter Results * XR FOOT LT MIN 3V (04/28/2023 2:26 PM EST) Anatomical Region Laterality Modality Other 04/28/2023 2:26 PM EST Narrative 04/28/2023 2:29 PM EST [address] [address] XRay Report Signed Patient: TREV MCKEON MR#: [id number] : 1980 Acct:[id number] Age/Sex: 42 / M ADM Date: 04/28/23 Loc: Attending Dr: Jesus Feldman D.P.M. Ordering Physician: Jesus Feldman D.P.M. Date of Service: 04/28/23 Procedure(s): XR foot LT min 3V Accession Number(s): [id number] cc: Jesus Feldman D.P.M.; ERIC HERNANDEZ [address] [address] Patient Name: TREV MCKEON MRN: [id number] date: 1980 Sex: M Assigned Patient Location: Current Patient Location: Accession/Order Number: [id number] Exam Date: 04/28/2023 10:10 Report Date: 04/28/2023 14:26 At the request of: JESUS FELDMAN Procedure: XR foot LT min 3V PROCEDURE: XR foot LT min 3V DATE: 04/28/2023 9:10 AM SUPERVISOR OFFSET PLATE PREPARATION COMPARISONS: 02/19/2023 CLINICAL INDICATION: LEFT FOOT BLISTER [...] Signed By: 04/28/23 1429 DD/ 1426 TD/TT: Executive Chef: Procedure Note Radiology, Radiologist, MD - 07/14/2023 [place] [address] XRay Report Signed Patient: TREV MCKEON BMR#: [id number] : 1980Acct:[id number] Age/Sex: 42 / MADM Date: 04/28/23 Loc: WC Attending Dr: Jesus Feldman D.P.M. Ordering Physician: Jesus Feldman D.P.M. Date of Service: 04/28/23 Procedure(s): XR foot LT min 3V Accession Number(s): [id number] cc: Jesus Feldman D.P.M.; ERIC HERNANDEZ [place] [address] Patient Name: TREV MCKEON MRN: [id number] date: 1980 Sex: M Assigned Patient Location: Current Patient Location: Accession/Order Number: [id number] Exam Date: 04/28/2023 10:10 Report Date: 04/28/2023 14:26 At the request of: JESUS FELDMAN Procedure: XR foot LT min 3V PROCEDURE: XR foot LT min 3V DATE: 04/28/2023 9:10 AM SUPERVISOR OFFSET PLATE PREPARATION COMPARISONS: 02/19/2023 CLINICAL INDICATION: LEFT FOOT BLISTER [...] M.D. Signed By:04/28/23 1429 DD/ 142 TD/TT: Executive Chef: us Generic External Data Provider [facility] Final Result documented in this encounter Visit Diagnoses Not on filedocumented in this encounter Care Teams Pilot Can Router Relationship Specialty Start Date End Date Eric Hernandez MD PCP - General Family Medicine 09/15/22 Blossom Cody NP Nurse Practitioner Family Medicine 01/19/24 documented as of this encounter
--- OUTSIDE RECORDS SUMMARY | 2025-01-03 10:42 | XMS_ITS | Encounter Summary ---
Author Organization [facility] Address [address] [place] [address] Care Team Providers Care Clinical Education Academic Coordinator Name Role Phone Natalie Hernandez MD Primary Care Provider [phone] Blossom Cody CORRECTIONAL PROGRAM OFFICER Unavailable [phone] Encounter Details Date Type Department Care Team ([facility] st Contact Info) Description 04/26/2024 Clinisync [...] any clubs o r organizations such as islam groups, unions, fraternal or athletic groups, or [...] Description 01/31/2025 9:30 AM EDT Office Visit [facility] Medicine [address] [place] [phone] Maria Fernanda Olguin, JENNYFER [address] [place] [address] documented as of this encounter Procedures Procedure [...] been received and testing has been initiated. [facility] ANAEROBIC CULT, EXTENDED INCUB Organism: Prevotella disiens : [facility] ANAEROBIC CULT, EXTENDED INCUB *ABNORMAL* TB ANAEROBIC CULT, EXTENDED INCUB Scant growth TB ANAEROBIC CULT, EXTENDED INCUB Studies at [employer] have confirmed the [facility] ANAEROBIC CULT, EXTENDED INCUB observations of others who have demonstrated that [facility] ANAEROBIC CULT, EXTENDED INCUB Prevotella, Porphyromonas and Bacteroides species TB ANAEROBIC CULT, EXTENDED INCUB other than Bacteroides fragilis group are routinely [facility] ANAEROBIC CULT, EXTENDED INCUB susceptible to Cefoxitin, Chloramphenicol, and [facility] ANAEROBIC CULT, EXTENDED INCUB Metronidazole and are usually resistant to Penicillin. [facility] ANAEROBIC CULT, EXTENDED INCUB Prevotella disiens [facility] ANAEROBIC CULT, EXTENDED INCUB O:PREDIS Isolated TB 04/26/2024 10:0 7 AM EST 04/26/2024 12:13 PM EST Narrative [facility] - 05/11/2024 4:08 PM EST us Generic External Data Provider LAB BLOOD ORDERAB LES Final Result [facility] * ANAEROBIC CULTURE (04/26/2024 10:07 AM EST) ANAEROBIC CULTURE Anaerobic Culture [facility] ANAEROBIC CULTURE Holding for possible anaerobes. [facility] ANAEROBIC CULTURE Organism: Prevotella disiens : [facility] ANAEROBIC CULTURE *ABNORMAL* TB ANAEROBIC CULTURE Light growth TB ANAEROBIC CULTURE Studies at [facility] have confirmed the [facility] ANAEROBIC CULTURE observations of others who have demonstrated that [facility] ANAEROBIC CULTURE Prevotella, Porphyromonas and Bacteroides species [...] ORDERAB LES Final Result Performing Organization Address City/[facility]/ZIP Co de Phone Number [facility] * FUNGUS (MYCOLOGY) CULTURE (04/26/2024 10:07 AM EST) FUNGUS (MYCOLOGY) CULTURE Fungus (Mycology) Culture WILL FOLLOW [facility] FUNGUS (MYCOLOGY) CULTURE No yeast or mold isolated after 4 weeks. [facility] FUNGUS (MYCOLOGY) CULTURE Performed at: [facility] FUNGUS (MYCOLOGY) CULTURE [address], [place] [id number] [facility] FUNGUS (MYCOLOGY) CULTURE Fashion Editor: Lalo Everett PhD, Phone: [phone] [facility] 04/26/2024 10:0 7 AM EST 04/26/2024 12:13 PM EST Narrative [facility] - 05/25/2024 12:08 PM EST Comment right foot ulcer us Generic External Data Provider LAB BLOOD ORDERAB LES Final Result [facility] * FUNGUS STAIN (04/26/2024 10:07 AM EST) FUNGUS STAIN Fungus Stain [facility] FUNGUS STAIN SHAQ/Calcofl uor preparation : no fungus observed. [facility] 04/26/2024 10:0 7 AM EST 04/26/2024 12:13 PM EST Narrative [facility] - 05/25/2024 12:08 PM EST Comment right foot ulcer Generic External Data Provider LAB BLOOD ORDERAB LES Final Result Performing Organization Address [facility] Co de Phone Number ADELA [facility] * FUNGUS (MYCOLOGY) CULTURE (04/26/2024 10:07 AM EST) FUNGUS (MYCOLOGY) CULTURE Fungus (Mycology) Culture WILL FOLLOW [facility] FUNGUS (MYCOLOGY) CULTURE No yeast or mold isolated after 4 weeks. [facility] FUNGUS (MYCOLOGY) CULTURE Performed at: [facility] FUNGUS (MYCOLOGY) CULTURE [address], [place] [id number] [facility] FUNGUS (MYCOLOGY) CULTURE Fashion Editor: Lalo Everett PhD, Phone: [phone] [facility] 04/26/2024 10:0 7 AM EST 04/26/2024 12:13 PM EST Narrative [facility] - 05/25/2024 12:08 PM EST Comment right foot fascia for culture Generic External Data Provider LAB BLOOD ORDERAB LES Final Result Performing Organization Address [facility] de Phone Number [facility] * FUNGUS STAIN (04/26/2024 10:07 AM EST) FUNGUS STAIN Fungus Stain TB FUNGUS STAIN SHAQ/Calcofl uor preparation : no fungus observed. [facility] 04/26/2024 10:0 7 AM EST 04/26/2024 12:13 PM EST Narrative [facility] - 05/25/2024 12:08 PM EST Comment right foot fascia for culture Generic External Data Provider LAB BLOOD ORDERAB LES Final Result Performing Organization Address [facility] Co de Phone Number [facility] * GRAM STAIN RESULT (04/26/2024 10:07 AM EST) GRAM STAIN RESULT Gram Stain Result [facility] GRAM STAIN RESULT No white blood cells seen. [facility] GRAM STAIN RESULT TB GRAM STAIN RESULT Rare gram positive cocci TB GRAM STAIN RESULT Performed at: [facility] GRAM STAIN RESULT [address], [place] [id number] [facility] GRAM STAIN RESULT Fashion Editor: Lalo Everett PhD, Phone: [phone] [facility] 04/26/2024 10:0 7 AM EST 04/26/2024 12:13 PM EST Narrative [facility] - 05/02/2024 3:08 PM EST Generic External Data Provider LAB BLOOD ORDERAB LES Final Result Performing Organization Address [facility] de Phone Number [facility] TB * AEROBIC CULTURE (04/26/2024 10:07 AM EST) AEROBIC CULTURE Aerobic Culture WILL FOLLOW TB AEROBIC CULTURE TB AEROBIC CULTURE Mixed skin maximiliano [facility] 04/26/2024 10:0 7 AM EST 04/26/2024 12:13 PM EST Narrative [facility] - 05/02/2024 3:08 PM EST Generic External Data Provider LAB BLOOD ORDERAB LES Final Result Performing Organization Address [facility] Phone Number [facility] TB * ACID FAST CULTURE (04/26/2024 10:07 AM EST) ACID FAST CULTURE Acid Fast Culture Specimen has been received and testing has been initiated. [facility] ACID FAST CULTURE Negative [facility] ACID FAST CULTURE No acid fast bacilli isolated after 6 weeks. TB ACID FAST CULTURE Performed at: [facility] TB ACID FAST CULTURE [address], [place] [id number] TB ACID FAST CULTURE Fashion Editor: Lalo Everett PhD, Phone: [phone] [facility] 04/26/2024 10:0 7 AM EST 04/26/2024 12:13 PM EST Narrative [facility] - 06/10/2024 9:09 AM EST Generic External Data Provider LAB BLOOD ORDERAB LES Final Result Performing Organization Address [facility]/ZIP Co de Phone Number [facility] TB * ACID FAST SMEAR (04/26/2024 10:07 AM EST) ACID FAST SMEAR Acid Fast Smear Negative [facility] 04/26/2024 10:0 7 AM EST 04/26/2024 12:13 PM EST Narrative [facility] - 06/10/2024 9:09 AM EST Generic External Data Provider LAB BLOOD ORDERAB LES Final Result Performing Organization Address [facility] Co de Phone Number [facility] * AFB SPECIMEN PROCESSING (04/26/2024 10:07 AM EST) Pathologist [facility] AFB SPECIMEN PROCESSING AFB Specimen Processing [facility] AFB SPECIMEN PROCESSING Tissue Grinding [facility] 04/26/2024 10:0 7 AM EST 04/26/2024 12:13 PM EST Narrative [facility] - 06/10/2024 9:09 AM EST Generic External Data Provider LAB BLOOD ORDERAB LES Final Result Performing Organization Address [facility] de Phone Number [facility] TB * TISSUE CULTURE (04/26/2024 10:07 AM EST) Pathologist [facility] TISSUE CULTURE Tissue Culture WILL FOLLOW [facility] TISSUE CULTURE [facility] TISSUE CULTURE Specimen has been received and testing has been initiated. [facility] 04/26/2024 10:0 7 AM EST 04/26/2024 12:13 PM EST Narrative [facility] - 05/11/2024 4:08 PM EST Generic External Data Provider LAB BLOOD ORDERAB LES Final Result Performing Organization Address [facility] de Phone Number [facility] * GRAM STAIN RESULT (04/26/2024 10:07 AM EST) GRAM STAIN RESULT Gram Stain Result TB GRAM STAIN RESULT No white blood cells seen. TB GRAM STAIN RESULT TB GRAM STAIN RESULT No organisms seen TB GRAM STAIN RESULT Performed at: [facility] TB GRAM STAIN RESULT [address], [place] [id number] TB GRAM STAIN RESULT Fashion Editor: Lalo Everett PhD, Phone: [phone] [facility] 04/26/2024 10:0 7 AM EST 04/26/2024 12:13 PM EST Narrative CL[facility] - 05/11/2024 4:08 PM EST Generic External Data Provider LAB BLOOD ORDERAB LES Final Result Performing Organization Address [facility] de Phone Number [facility] * ACID FAST CULTURE (04/26/2024 10:07 AM EST) ACID FAST CULTURE Acid Fast Culture Specimen has been received and testing has been initiated. [facility] ACID FAST CULTURE Negative [facility] ACID FAST CULTURE No acid fast bacilli isolated after 6 weeks. TB ACID FAST CULTURE [facility]formed at[facility] ACID FAST CULTURE [address], [place] [id number] [facility] ACID FAST CULTURE Fashion Editor: Lalo Everett PhD, Phone: [phone] [facility] 04/26/2024 10:0 7 AM EST 04/26/2024 12:13 PM EST Narrative [facility] - 06/10/2024 9:09 AM EST Comment right foot fascia for culture Generic External Data Provider LAB BLOOD ORDERAB LES Final Result Performing Organization Address [facility] de Phone Number [facility] * ACID FAST SMEAR (04/26/2024 10:07 AM EST) ACID FAST SMEAR Acid Fast Smear Negative [facility] 04/26/2024 10:0 7 AM EST 04/26/2024 12:13 PM EST Narrative [facility] - 06/10/2024 9:09 AM EST Comment right foot fascia for culture us Generic External Data Provider LAB BLOOD ORDERAB LES Final Result Performing Organization Address City/[facility] Co de Phone Number [facility] * AFB SPECIMEN PROCESSING (04/26/2024 10:07 AM EST) AFB SPECIMEN PROCESSING AFB Specimen Processing [facility] AFB SPECIMEN PROCESSING Tissue Grinding [facility] 04/26/2024 10:0 7 AM EST 04/26/2024 12:13 PM EST Narrative ADELA - 06/10/2024 9:09 AM EST Comment right foot fascia for culture us Generic External Data Provider LAB BLOOD ORDERAB LES Final Result [facility] * XR FOOT RT MIN 3V (04/26/2024 9:03 AM EST) Anatomical Region Laterality Modality Other 04/26/2024 9:03 AM EST Narrative 04/26/2024 9:06 [place] [address] XRay Report Signed Patient: TREV MCKEON MR#: [id number] : 1980 Acct:[id number] Age/Sex: 43 / M ADM Date: 04/25/24 Loc: Attending Dr: Martell Navas Ordering Physician: Martell Navas Date of Service: 04/25/24 Procedure(s): XR foot RT min 3V Accession Number(s): [id number] cc: Martell Navas; NATALIE HERNANDEZ [address] [address] Patient Name: TREV MCKEON MRN: [facility]:[id number] date: 1980 Sex: M Assigned Patient Location: Current Patient Location: DC Accession/Order Number: [id number] Exam Date: 04/25/2024 11:58 Report Date: 04/26/2024 [...] M.D. Signed By: 04/26/24905 DD/ 2 TD/TT: Medical Coding Specialist: Procedure Note Radiology, Radiologist, MD - 04/26/2024 [place] [address] XRay Report Signed Patient: TREV MCKEON BMR#: [id number] : 1980Acct:[id number] Age/Sex: 43 / MADM Date: 04/25/24 Loc: Attending Dr: Martell Navas Ordering Physician: Martell Navas Date of Service: 04/25/24 Procedure(s): XR foot RT min 3V Accession Number(s): [id number] cc: Martell Navas; NATALIE HERNANDEZ [place] [id number] Patient Name: TREV MCKEON MRN: [id number] date: 1980 Sex: M Assigned Patient Location: Current Patient Location: DC Accession/Order Number: [id number] Exam Date: 04/25/2024 11:58 Report Date: 04/26/2024 [...] Nayak M.D. Signed By:04/26/24905 DD/ 2 TD/TT: Medical Coding Specialist: us Generic External Data Provider [facility] Final Result documented in this encounter Visit Diagnoses Not on filedocumented in this encounter Care Teams Clinical Education Academic Coordinator Relationship Specialty Start Date End Date Natalie Hernandez MD PCP - General Family Medicine 09/15/22 Blossom Cody NP Nurse Practitioner Family Medicine 01/19/24 documented as of this encounter
--- OUTSIDE RECORDS SUMMARY | 2025-01-03 10:42 | XMS_ITS | Encounter Summary ---
Author Organization [facility] Address [address] [place] [address] Care Team Providers Care Pantry Cook Name Role Phone Natalie Ryan MD Primary Care Provider [phone] Blossom Cody RETANNER Unavailable [phone] Encounter Details Date Type Department Care Team ([facility] st Contact Info) Description 05/19/2024 Abstract [facility] [address] [place] [address] Unallocated, Noms Provider, [address] [place] [address] Social History Tobacco Use Types Packs/Day Years [...] Office Visit [facility] [address] [place] [phone] Maria Fernanda Olguin NP [address] [place], [place] [phone] documented as of this encounter Visit Diagnoses Not on filedocumented in this encounter Care Teams Pantry Cook Relationship Specialty Start Date End Date Natalie Ryan MD PCP - General Family Medicine 09/15/22 Blossom Cody NP Nurse Practitioner Family Medicine 01/19/24 documented as of this encounter
--- OUTSIDE RECORDS SUMMARY | 2025-01-03 10:42 | XMS_ITS | Clinical Summary ---
Author Organization [employer] Address [facility]-[id number] [address] [place] [address] Care Team Providers Care Business Management Consultant Name Role Phone Natalie Ryan MD Primary Care Provider [phone] Allergies No known active allergies Medications insulin [...] 8 Active lancets (ACCU-CHEK MULTICLIX LANCET) [facility] blood glucose check 100 each 8 Active [...] 11 8 Active ONETOUCH VERIO SYSTEM [facility] See Admin Instructions. 0 8 Active insulin [...] 5:45 AM 03/30/2018 7:23 PM Care Teams Business Management Consultant Relationship Specialty Start Date End Date Natalie Ryan MD [address] [place] [address] PCP - General Family Medicine 03/26/18
--- OUTSIDE RECORDS SUMMARY | 2025-01-03 10:42 | XMS_ITS | Encounter Summary ---
Author Organization [facility] Address [address] [place] [address] Care Team Providers Care Institution Director Name Role Phone Natalie Ryan MD Primary Care Provider [phone] Blossom Cody BPM ARCHITECT Unavailable [phone] Encounter Details Date Type Department Care Team ([facility] st Contact Info) Description 09/20/2023 [facility] [address] [place] [phone] Chidi Moore DPM [address] [place], [place] [id number] Social History Tobacco Use Types Packs/Day Years [...] often do you attend chur ch or baptist services? More than 4 times per year [...] Office Visit [facility] [address] [place] [phone] Maria Fernanda Olguin NP [address] [place], [place] [phone] documented as of this encounter Visit Diagnoses Not on filedocumented in this encounter Care Teams Institution Director Relationship Specialty Start Date End Date Natalie Ryan MD PCP - General Family Medicine 09/15/22 Blossom Cody NP Nurse Practitioner Family Medicine 01/19/24 documented as of this encounter
--- OUTSIDE RECORDS SUMMARY | 2025-01-03 10:43 | XMS_ITS | Encounter Summary ---
Author Organization [facility] Address [address] [place] [address] Care Team Providers Care Funeral Sales Manager Name Role Phone Natalie Ryan MD Primary Care Provider [phone] Blossom Cody PRIMER POWDER BLENDER WET Unavailable [phone] Encounter Details Date Type Department Care Team ([facility] Contact Info) Description 10/20/[address] [facility] Medicine [address] [place] [address] Link Ortega NP [address] [place] [address] Social History Tobacco Use Types [...] any clubs o r organizations such as worship groups, unions, fraternal or athletic groups, or [...] 01/31/2025 9:30 AM EDT Office Visit [facility] [address] [place] [address] Maria Fernanda Olguin NP [address] [place], [place] [phone] documented as of this encounter Procedures Procedure [...] on filedocumented in this encounter Care Teams Funeral Sales Manager Relationship Specialty Start Date End Date Natalie Ryan MD PCP - General Family Medicine 09/15/22 Blossom Cody NP Nurse Practitioner Family Medicine 01/19/24 documented as of this encounter
--- OUTSIDE RECORDS SUMMARY | 2025-01-03 10:43 | XMS_ITS | Clinical Summary ---
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); Amputation of toe, traumatic, left, sequela ([facility]-HCC); Morbid obesity ([facility]-HCC); Hypertriglyceridemia 10/19/2024 Bamboo flowsheet [facility] [address] [place] [address] Maria Fernanda Olguin NP 10/19/2024 [...] Upcoming Encounters Date Type Department Care Team ([facility] st Contact Info) Description 01/31/2025 9:30 AM EDT Office Visit [facility] Family Medicine [address] [place] [phone] Maria Fernanda Olguin, JENNYFER [address] [place] [address] Health Maintenance Due Date Last Done Comments CT Colonography 1979 Colonoscopy 1979 Colorectal Cancer Screening 1979 FIT-DNA 1979 FIT 1979 FOBT 1979 Sigmoidoscopy 1979 Influenza Vaccine (#1) 2025 4, 03/24/2023, 03/28/2021, Additional history exists Insurance [employer] Care Teams Well Puller Head Relationship Specialty Start Date End Date Natalie Ryan MD PCP - General Family Medicine 09/15/22 Blossom Cody NP Nurse Practitioner Family Medicine 01/19/24
--- OUTSIDE RECORDS SUMMARY | 2025-01-03 10:43 | XMS_ITS | Encounter Summary ---
Author Organization [facility] Address [address] [place] [address] Care Team Providers Care Salt Washer Name Role Phone Natalie Ryan MD Primary Care Provider [phone] Blossom Cody FURNACE OPERATOR AND TENDER Unavailable [phone] Encounter Details Date Type Department Care Team ([facility] Contact Info) Description 12/24/[address] [facility] Family Medicine [address] [place] [address] Terence Glass MD [address] [place] [address] Social History Tobacco Use Types [...] 01/31/2025 9:30 AM EDT Office Visit [facility] [address] [place] [phone] Maria Fernanda Olguin NP [address] [place], [place] [phone] documented as of this encounter Procedures Procedure [...] on filedocumented in this encounter Care Teams Salt Washer Relationship Specialty Start Date End Date Johnly, Natalie Lozada MD PCP - General Family Medicine 09/15/22 Blossom Cody NP Nurse Practitioner Family Medicine 01/19/24 documented as of this encounter
--- OUTSIDE RECORDS SUMMARY | 2025-01-03 10:43 | XMS_ITS | Encounter Summary ---
Author Organization [facility] Address [address] [place] [address] Care Team Providers Care Feeder Switchboard Operator Name Role Phone Natalie Ryan MD Primary Care Provider [phone] Blossom Cody JANITOR AND CLEANER Unavailable Encounter Details Date Type Department Care Team ([facility] Contact Info) Description 08/21/2024 Orders Only [facility] Family Medicine [address] [place] [address] Link Ortega NP [address] [place] [address] Social History Tobacco Use Types [...] any clubs o r organizations such as religion groups, unions, fraternal or athletic groups, or [...] Description 01/31/2025 9:30 AM EDT [facility] [address] [place] [phone] Maria Fernanda Olguin NP [address] [place], [place] [phone] documented as of this encounter Procedures Procedure [...] on filedocumented in this encounter Care Teams Feeder Switchboard Operator Relationship Specialty Start Date End Date Natalie Ryan MD PCP - General Family Medicine 09/15/22 Blossom Cody NP Nurse Practitioner Family Medicine 01/19/24 documented as of this encounter
--- OUTSIDE RECORDS SUMMARY | 2025-01-03 10:43 | XMS_ITS | Encounter Summary ---
Author Organization [facility] Address [address] [place] [address] Care Team Providers Care Caramel Cutter Hand Name Role Phone Natalie Ryan MD Primary Care Provider [phone] Blossom Cody [employer] ENGLISH TEACHER Unavailable [phone] Encounter Details Date Type Department Care Team ([facility] st Contact Info) Description 11/15/2023 [facility] [address] [place] [phone] Chidi Moore DPM [address] [place], [place] [phone] Social History Tobacco Use Types Packs/Day Years [...] Office Visit [facility] [address] [place] [address] Maria Fernanda Olguin NP [address] [place], [place] [phone] documented as of this encounter Visit Diagnoses Not on filedocumented in this encounter Care Teams Caramel Cutter Hand Relationship Specialty Start Date End Date Natalie Ryan MD PCP - General Family Medicine 09/15/22 Blossom Cody NP Nurse Practitioner Family Medicine 01/19/24 documented as of this encounter
--- OUTSIDE RECORDS SUMMARY | 2025-01-03 10:43 | XMS_ITS | Encounter Summary ---
Author Organization [facility] Address [address] [place] [address] Care Team Providers Care Promotion Officer Name Role Phone Natalie Ryan MD Primary Care Provider [phone] Blossom Cody COMPACTING MACHINE OPERATOR/TENDER Unavailable [phone] Encounter Details Date Type Department Care Team ([facility] Contact Info) Description 08/16/2024 Orders Only [facility] Family Medicine [address] [place] [phone] Terence Glass MD [address] [place] [address] Social History Tobacco Use Types [...] often do you attend chur ch or presybeterian services? More than 4 times per year 03/23/2023 Do you belong to any clubs o r organizations such as moravian groups, unions, fraternal or athletic groups, or [...] 01/31/2025 9:30 AM EDT Office Visit [facility] [address] [place] [address] Maria Fernanda Olguin NP [address] [place], [place] [address] documented as of this encounter Procedures Procedure [...] on filedocumented in this encounter Care Teams Promotion Officer Relationship Specialty Start Date End Date Shelby, Natalie Lozada MD PCP - General Family Medicine 09/15/22 Blossom Cody NP Nurse Practitioner Family Medicine 01/19/24 documented as of this encounter
--- OUTSIDE RECORDS SUMMARY | 2025-01-03 10:43 | XMS_ITS | Encounter Summary ---
Author Organization [facility] Address [address] [place] [address] Care Team Providers Care Chief Dispatcher Service Name Role Phone Eric Hernandez MD Primary Care Provider [phone] Blossom Cody PICKLE PROCESSOR Unavailable [phone] Encounter Details Date Type Department Care Team ([facility] st Contact Info) Description 11/02/2023 Clinisync [...] often do you attend chur ch or scientologist services? More than 4 times per year [...] Description 01/31/2025 9:30 AM EDT [facility] [address] [place] [phone] Maria Fernanda Olguin NP [address] [place] [address] documented as of this encounter Procedures Procedure Name Priority Date/Time Associated Diagnosis Comments XR FOOT RT MIN 3V 11/02/2023 1:1 0 PM EDT documented in this encounter Results * XR FOOT RT MIN 3V (11/02/2023 1:10 PM EDT) Anatomical Region Laterality Modality Other 11/02/2023 1:10 PM EDT Narrative 11/02/2023 1:12 [place] [address] XRay Report Signed Patient: TREV MCKEON MR#: [id number] : 1980 Acct:[id number] Age/Sex: 43 / M ADM Date: 11/02/23 Loc: Attending Dr: Alex Johnson D.P.M. Ordering Physician: Alex Johnson D.P.M. Date of Service: 11/02/23 Procedure(s): XR foot RT min 3V Accession Number(s): [id number] cc: Alex Johnson D.P.M.; ERIC HERNANDEZ [address] [address] Patient Name: TREV MCKEON MRN: [id number] date: 1980 Sex: M Assigned Patient Location: Current Patient Location: Accession/Order Number: [id number] Exam Date: 11/02/2023 11:13 Report Date: 11/02/2023 [...] Signed By: 11/02/23 131 DD/ 131 TD/TT: Cloth Finishing Range Operator Chief: Procedure Note Radiology, Radiologist, MD - 11/02/2023 [place] [address] XRay Report Signed Patient: TREV MCKEON BMR#: [id number] : 1980Acct:[id number] Age/Sex: 43 / MADM Date: 11/02/23 Loc: Attending Dr: Alex Johnson D.P.M. Ordering Physician: Alex Johnson D.P.M. Date of Service: 11/02/23 Procedure(s): XR foot RT min 3V Accession Number(s): [id number] cc: Alex Johnson D.P.M.; ERIC HERNANDEZ [place] [address] Patient Name: TREV MCKEON MRN: [id number] date: 1980 Sex: M Assigned Patient Location: Current Patient Location: Accession/Order Number: [id number] Exam Date: 11/02/2023 11:13 Report Date: 11/02/2023 [...] M.D. Signed By:11/02/23 1312 DD/ 1310 TD/TT: Cloth Finishing Range Operator Chief: Generic External Data Provider [facility] Final Result documented in this encounter Visit Diagnoses Not on filedocumented in this encounter Care Teams Chief Dispatcher Service Relationship Specialty Start Date End Date Eric Hernandez MD PCP - General Family Medicine 09/15/22 Blossom Cody NP Nurse Practitioner Family Medicine 01/19/24 documented as of this encounter
--- OUTSIDE RECORDS SUMMARY | 2025-01-03 10:54 | XMS_ITS | CCD ---
Author Organization [facility] CliniSyme Care Team Providers Care Telegraph Operator Name Role Phone Link Ortega Unavailable [...] HIGHLANDER, NATANAEL Marks Admitting Unavailable RAFAEL WHITAKER Unavailable HIGHLANDER, NATANAEL Marks Attending Unavailable WONDERLY, [...] NATALIE Lozada Primary Care Unavailable HIGHLANDER, PETER Selina Admitting Unavailable HIGHLANDER, NATANAEL Makrs Attending Unavailable HIGHLANDER, PETER D Admitting Unavailable [...] Damon Claros Attending Provider MD Natalie Hernandez [facility] Care Provider Natalie Hernandez MD Primary Care Provider Blossom Cody NP Unavailable Natalie Hernandez Primary Care Unavailable Francia, Natanael Marks Admitting Unavailable Francia, Natanael Marks Attending Unavailable [place], [facility] Unavailable Damon Claros Admitting Unavailable Damon Claros Attending Unavailable Natalie Hernandez MD [facility] Care Provider Natanael Feldman DPM Attending Provider Natalie Hernandez MD Primary Care Provider Blossom Cody NP Unavailable BLOSSOM CODY Attending Unavailable APRYL GRANADOS Attending Unavailable MIRLANDE MOORE Attending Unavailable BLOSSOM CODY Attending Unavailable BLOSSOM CODY Attending Unavailable Link Ortega APRN Attending Provider Sharif BUNDLE COLLECTOR-CApryl Primary Care Provider Medications Current Medications Medication Drug Class(es) [...] MG PO Daily October 19, 2023 12:00am Complies with drug therapy take 1 tablet by mouth in the [...] MG PO Daily October 19, 2023 12:00am Complies with drug therapy dapagliflozin 10 mg oral tablet (20 sources) Sodium-Glucose Cotransporter 2 Inhibitor Start: 10-19-2023 End: 10-19-2024 take 1 tablet by mouth once daily in the morning Dapagliflozin Propanediol (Farxiga) 10 mg tablet Active 10 MG PO Every morning 90 August 21, 2024 9:32am Complies with drug therapy ertugliflozin 15 mg oral tablet (12 sources) [...] 50 units/day); Provider: Shannon Price Insulin Glargine-Yfgn (4 sources) Start: 11-27-2024 Insulin Glargi ne-Yfgn (Semglee(Insulin Glarg-Yfgn)Pen) 100 unit/mL (3 mL) insulin pen Active 46 UNIT SUBCUT Twice daily 90 November 27, 2024 10:41am Complies with drug therapy Start: 08-21-2024 End: 11-27-2024 Insulin Glargine-Yfgn (Semgl ee(Insulin Glarg-Yfgn)Pen) 100 unit/mL (3 mL) insulin pen Discontinued 45 UNIT SUBCUT Twice daily 90 August 21, 2024 9:37am November 27, 2024 10:42am Start: 08-21-2024 End: 08-21-2024 Insulin Glargine-Yfgn (Semgl ee(Insulin Glarg-Yfgn)Pen) 100 unit/mL (3 mL) insulin pen Discontinued 45 UNIT SUBCUT Twice daily August 21, 2024 9:31am August 21, 2024 9:38am Start: 07-24-2024 End: 08-21-2024 Insulin Glargine-Yfgn (Semgl ee(Insulin Glarg-Yfgn)Pen) 100 unit/mL (3 mL) insulin pen Discontinued 44 UNIT SUBCUT Twice daily July 24, 2024 12:00am August 21, 2024 9:31am Insulin Glargine-Yfgn (Semglee(Insulin Glarg-Yfgn)Pen) 100 unit/mL (3 [...] Active insulin lispro 100 unt/ml injectable solution (20 sources) Insulin Analog Start: 01-26-20 Insulin Lispro [...] 12-15-2023 Insulin Lispro Discontinued 0 SUBCUT .COMPLEX October 19, 2023 12:27pm December 15, 2023 2:48pm subcutaneously; 1:4 carb ratio ac tid. 1:15 corrective scale ac tid (hs if >200 half dose) as directed; (expect up to 60 units/day) Start: 10-19-2023 End: 08-21-2024 Insulin Lispro 100 unit/mL s olution Active 0 SUBCUT .COMPLEX August 21, 2024 9:34am subcutaneously; 1:4 carb ratio ac tid. 1:15 corrective scale ac tid (hs if >200 half dose) as directed; (expect up to 75 units/day) Complies with drug therapy Start: 10-19-2023 End: 10-19-2023 Insulin Lispro Discontinued [...] (20 sources) GLP-1 Receptor Agonist Start: 10-19-2023 End: 10-25-2024 Liraglutide (Victoza 3-Connor) 0.6 mg/0.1 mL (18 mg/3 mL) pen injector Active 0 SUBCUT .COMPLEX October 25, 2024 8:44am inject 1.8mg once daily Complies with drug therapy Start: 06-09-2023 inject 1.8 mg by sub cutaneous injection once daily Victoza 18 MG/3ML 1.8mg Subcutaneous daily for 84 days May, Active lisinopril 30 mg oral tablet (20 sources) Angiotensin Converting Enzyme Inhibitor Start: 06-16-2023 End: 10-16-2024 take 1 tablet by mouth once daily Lisinopril 30 mg tablet Active 30 MG PO Daily October 19, 2023 12:00am Complies with drug therapy End: 06-16-2023 take 1 tablet by mouth in the morning lisinopril 20 MG tablet Take 1 tablet by mouth in the morning. 0 06/16/2023 Discontinued (Dose adjustment) metFORMIN hydrochloride 500 mg oral tablet (20 sources) Biguanide Start: 07-22-2023 End: 08-21-2024 take 2 tablets by mouth twice daily Metformin 500 mg tablet Active 1000 MG PO Twice daily 360 August 21, 2024 9:36am [employer] tablets Orally Twice a day; Note: Source Status: Taking; Refills: 3; Qty: 360 Tablet; Provider: Shannon Price Complies with drug therapy Start: 07-22-2023 End: 07-22-2023 take 2 tablets [...] DIRECTED THREE TIMES DAILY for 90 Active pen needle, diabetic (Merline 2 nd Gen Pen Needle) (1 source) Start: 11-27-2024 pen needle, di abetic (Merline 2nd Gen Pen Needle) Active .Route November 27, 2024 12:00am 0.25 mg, 0.5 mg dose 1.5 ml [...] Active traZODone hydrochloride 100 mg oral tablet (10 sources) Serotonin Reuptake Inhibitor Start: 06-14-2024 End: 08-21-2024 take 1 tablet by mouth once daily as needed Trazodone 100 mg tablet Active 100 MG PO Daily as needed August 21, 2024 9:09am Complies with drug therapy urea 400 mg/ml topical cream (15 sources) [...] 2000 mg / sulbactam 1000 mg injection (3 sources) Penicillin-class Antibacterial, beta Lactamase Inhibitor Start: [...] Once a day for 30 day(s) Not-Taking Insulin Glargine-Yfgn (7 sources) Start: 02-28-2024 End: 07-24-2024 Insulin Glargine-Yfgn 100 unit/mL solution Discontinued 44 UNIT SUBCUT Twice daily February 28, 2024 9:56am July 24, 2024 4:24pm Start: 10-19-2023 End: 02-28-2024 Insulin Glargine-Yfgn 100 un it/mL solution Discontinued 44 UNIT SUBCUT Twice daily October 19, 2023 12:27pm February 28, 2024 9:56am Start: 10-19-2023 End: 10-19-2023 Insulin Glargine-Yfgn 100 un it/mL solution Discontinued 44 UNIT SUBCUT Twice daily October 19, 2023 12:04pm October 19, 2023 12:27pm Start: 10-19-2023 End: 10-19-2023 Insulin Glargine-Yfgn 100 un it/mL solution Discontinued 40 UNIT SUBCUT Twice daily October 19, 2023 11:40am October 19, 2023 12:05pm Start: 07-26-2023 End: 10-19-2023 Insulin Glargine-Yfgn 100 un it/mL solution Discontinued 46 UNIT SUBCUT Twice daily 90 90 July 26, 2023 3:32pm October 19, 2023 11:40am Start: 07-26-2023 End: 07-26-2023 Insulin Glargine-Yfgn 100 [...] 50 units/day); Provider: Shannon Price insulin glargine-yfgn (Semglee-yfgn) 100 UNIT/ML injection (2 [...] SUBCUT Twice daily 90 July 26, 2023 2:32pm October 19, [...] Shannon Price linezolid 600 mg oral tablet (3 sources) Oxazolidinone Antibacterial Start: 06-14-2024 End: 08-21-2024 [...] LT FOOT] Onset: 10-07-2022 Episodic Administrative/social admission (13 sources) Dietary counseling and surveillance; Translations: [Patient encounter status] Onset: 01-06-2022 Resolved: 01-06-2022 Episodic Bacterial infection; unspecified site (3 sources) 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 [...] Resolved: 06-17-2023 Chronic Diabetes mellitus without complication (4 sources) Diabetes mellitus; Translations: [Type 2 diabetes [...] 11-03-2023 11-03-2023 Chronic Open wounds of extremities (16 sources) Unspecified open wound, unspecified foot, initial encounter; Translations: [Injury of left foot] Episodic Osteoarthritis (20 sources) Arthritis of left foot; Translations: [Primary osteoarthritis, left ankle and foot] Onset: 10-02-2022 10-02-2022 Chronic Other aftercare (14 sources) Long-term current use of insulin; Translations: [assisted (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] 06-17-2023 Episodic Other aftercare (4 sources) assisted (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 Onset: 01-06-2022 Resolved: 08-30-2022 Episodic Other aftercare (2 sources) Drug therapy finding; Translations: [assisted (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 antibiotics] 06-14-2024 Episodic Other aftercare (1 source) assisted (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 antibiotics; Translations: [Long-term (current) [...] Results Test Name Value Interpretation Reference Range [facility] 04-26-2024 L Specimen: [id number] Received: 04/26/24 Status: CALEB Gabriel Num: [id number] Spec Type: Surgical Subm Dr: Natanael Feldman DPM, Tissues: A Skin-Other than Cyst, tag, debridement or plastic repair (RT FOOT ULCER) Procedures: Yenny SCOTT/Mary L4 Age/ Patient Sex Location Account Attending Physician Trev Ontiveros 43/M LABELL [id number] Natanael Feldman DPM, MS SPEC NUM: [id number] RECD: 04/26/24 STATUS: CALEB GABRIEL NUM: [id number] MARTHA: 04/26/[address]: Natanael Feldman DPM, MS ENTERED: 04/26/[address]: [place],[facility] SPEC TYPE: Surgical DEPT: DERRICK PLUNKETT ENTERED BY: [id number] RECV BY: [id number] ORDERED: TYLER Gross/Micro L4 ORDERED: TYLER Gross/Micro L4 Pathological Diagnosis Ulcer, right foot, [...] reveal purple-brown to green, softened cut surfaces. Quality Facilitator sections are submitted in a single cassette. (1, ss, [id number] A) CPT Codes 81185 Specimen: [id number] Received: 04/26/24 Status: CALEB Gabriel Num: [id number] Spec Type: Surgical Subm Dr: Natanael Feldman,DPM, MS Tissues: A Skin-Other than Cyst, tag, debridement or plastic repair (RT FOOT ULCER) Procedures: Yenny SCOTT/Mary L4 Patient: Trev Ontiveros [id number] (Continued) Signed (signature on file) Melanie Roca MD 04/27/24 [id number] Normal [facility] A1C HEMOGLOBINon 06-09-2023 HbA1c (Bld) [Mass fraction] 8.2 % [employer] Other Glucose - FINGER STICKon Glucose [Mass/Vol] 170 mg/dL [employer] Other HbA1c (Bld) [Mass fraction]o n 06-09-2023 A1C HEMOGLOBIN [employer] Other A1C HEMOGLOBINon 01-04-2023 HbA1c (Bld) [Mass fraction] 8.9 % [employer] Other Glucose - FINGER STICKon Glucose [Mass/Vol] 201 mg/dL [employer] Other HbA1c (Bld) [Mass fraction]o n 01-04-2023 A1C HEMOGLOBIN [employer] Other PROF CHEM 8 (BAS METB)on Anion gap [Moles/Vol] 14.3 mmol/L Normal [facility] Comment on above: Performed By: #### B #### [facility] [address] [place] [address] Dr. Lauri Todd Calcium [Mass/Vol] 9.4 mg/dL Normal 8.5-10.1 [facility] Comment on above: Performed By: #### B MP #### [facility] [address] [address] [address] Lauri Todd Chloride [Moles/Vol] 101 mmol/L Normal 98-107 [facility] Comment on above: Performed By: #### B MP #### [facility] [address] [address] [address] Lauri Todd CO2 [Moles/Vol] 26.2 mmol/L Normal 21.0-32.0 [facility] Comment on above: Performed By: #### B MP #### [facility] [address] [address] [address] Lauri Todd Creatinine [Mass/Vol] 0.90 mg/dL Normal 0.70-1.30 [facility] Comment on above: Performed By: #### B MP #### [facility] [address] [place] [address] Dr. Lauri Todd EGFR-AF MOZAMBICAN >60 Normal >=60 [facility] Comment on above: Performed By: #### B MP #### [facility] [address] [address] [address] Lauri Todd EGFR-NON AF MOZAMBICAN >60 Normal >=60 [facility] Comment on above: Performed By: #### B MP #### [facility] [address] [place] [address] Dr. Lauri Todd Glucose [Mass/Vol] 146 mg/dL Critically high 74-106 [facility] Comment on above: Performed By: #### B MP #### [facility] [address] [place] [address] Dr. Lauri Todd Potassium [Moles/Vol] 4.5 mmol/L Normal 3.5-5.1 [facility] Comment on above: Performed By: #### B MP #### [facility] [address] [place] [address] Dr. Lauri Todd Sodium [Moles/Vol] 137 mmol/L Normal 136-145 [facility] Comment on above: Performed By: #### B MP #### [facility] [address] [place] [address] Dr. Lauri Todd Urea nitrogen [Mass/Vol] 16.0 mg/dL Normal 7.0-18.0 [facility] Comment on above: Performed By: #### B MP #### [facility] [address] [address] [address] Lauri Todd Urea nitrogen/Creatinin e [Mass ratio] 17.8 mg/mg Normal [facility] Comment on above: Performed By: #### B MP #### [facility] [address] [address] [address] Lauri Todd A1C HEMOGLOBINon 06-25-2022 HbA1c (Bld) [Mass fraction] 8.2 % [employer] Other Glucose - FINGER STICKon Glucose [Mass/Vol] 180 mg/dL [employer] Other HbA1c (Bld) [Mass fraction]o n 06-25-2022 [facility]R FOOT LT MIN 3 VIEWSon [...] by: RAFAEL WHITAKER Date: 2022-05-25 11:52 Normal [facility] A1C HEMOGLOBINon 01-06-2022 HbA1c (Bld) [Mass fraction] 7 % [employer] Other Glucose - FINGER STICKon Glucose [Mass/Vol] 148 mg/dL [facility] [employer] Other HbA1c (Bld) [Mass fraction]o n 01-06-2022 A1C HEMOGLOBIN [facility] [employer] Other Basic Metabolic Panel 08-08 Anion gap [Moles/Vol] 20 mmol/L Normal 12-20 [facility] [employer] Siding Applicator Comment on above: Result Comment: Effe ctive 05/15/2019 reference range changed. Performed By: #### B MP #### [facility] [address], [place] [id number] Calcium [Mass/Vol] 10.0 mg/dL Normal 8.6-10.2 [facility] [place] [employer] Comment on above: Performed By: #### B MP #### [facility] [address], [place] [id number] Chloride [Moles/Vol] 100 mmol/L Normal 98-107 [facility] [employer] Comment on above: Performed By: #### B MP #### [facility] [address] [place], [place] [id number] CO2 [Moles/Vol] 22 mmol/L Normal 20-31 [facility] [employer]ator Comment on above: Performed By: #### B MP #### [facility] [address] [place], [place] [id number] Creatinine [Mass/Vol] 0.8 mg/dL Normal 0.7-1.4 [facility] Specialist Comment on above: Performed By: #### B MP #### [facility] [address], [place] [id number] eGFRAA 129 mL/min/1.73m2 Normal >60 [facility] Specialist Comment on above: Performed By: #### B MP #### [facility] [address] [facility] [place] [place] [id number] eGFRNAA 107 mL/min/1.73m2 Normal >60 [facility] Specialist Comment on above: Performed By: #### B MP #### [facility] [address] [place], [place] [id number] Glucose [Mass/Vol] 140 mg/dL High 65-99 [employer] [place] [employer] Comment on above: Result Comment: For FASTING Glucose --- ADA reference ranges: Normal 65-99 mg/dl Prediabetes 100-125 Diabetes >/= 126 Performed By: #### B MP #### [facility] [address] [place], [place] [id number] Potassium [Moles/Vol] 4.3 mmol/L Normal 3.5-5.[address] [facility] Comment on above: Performed By: #### B MP #### [facility] [address] [place], [place] [id number] Sodium [Moles/Vol] 137 mmol/L Normal 135-146 [facility] Comment on above: Performed By: #### B MP #### [facility] [address] [place], [place] [id number] Urea nitrogen [Mass/Vol] 17 mg/dL Normal 7-25 [facility] Specialist Comment on above: Performed By: #### B MP #### [facility] [address] [place], [place] [id number] Vital Signs Date Time Vital Sign Value Performing Clinician Facility 11-27-2024 10:07040 Body height 182.88 cm Apryl RUTLEDGEC Work Phone: [facility] 11-27-2024 10:07040 Body mass index (BMI) [Ratio] 51.5 kg/m2 Apryl Granados NP-C Work Phone: [facility] 11-27-2024 10:07040 Body weight 172.5 kg Apryl RUTLEDGEC Work Phone: [facility] 11-27-2024 10:07-0400 Diastolic blood pressure 74 mm[Hg] Apryl Granados NP-C Work Phone: [facility] 11-27-2024 10:070400 Heart rate 81 /min Apryl Granados NP-C Work Phone: [facility] 11-27-2024 10:07-0400 Respiratory rate 18 /min Apryl Granados NP-C Work Phone: [facility] 11-27-2024 10:07-0400 SaO2% (BldA) [Mass fraction] 96 % Apryl Granados BUNDLE COLLECTOR-C Work Phone: [facility] 11-27-2024 10:07-0400 Systolic blood pressure 143 mm[Hg] Apryl Granados BUNDLE COLLECTOR-C Work Phone: [facility] 10-19-2024 09:51-0400 Body mass index (BMI) [Ratio] 51.08 kg/m2 Apryl Granados BUNDLE COLLECTOR Work Phone: [facility] 10-19-2024 09:51-0400 Body weight 168.47 kg Apryl Granados BUNDLE COLLECTOR Work Phone: [facility] 10-19-2024 09:51-0400 Diastolic blood pressure 86 mm[Hg] Apryl Granados BUNDLE COLLECTOR Work Phone: [facility] 10-19-2024 09:51-0400 Heart rate 76 /min Apryl Granados BUNDLE COLLECTOR Work Phone: [facility] 10-19-2024 09:51-0400 Systolic blood pressure 130 mm[Hg] Apryl Granados BUNDLE COLLECTOR Work Phone: [facility] 08-21-2024 09:08-0400 Diastolic blood pressure 74 mm[Hg] [facility] 08-21-2024 09:08-0400 Systolic blood pressure 129 mm[Hg] [facility] 08-21-2024 09:07-0400 Body height 182.88 cm [facility] 08-21-2024 09:07-0400 Body mass index (BMI) [Ratio] 50.5 kg/m2 [facility] 08-21-2024 09:07-0400 Body weight 169 kg [facility] 08-21-2024 09:07-0400 Heart rate 87 /min [facility] 08-21-2024 09:07-0400 Respiratory rate 18 /min [facility] 08-21-2024 09:07-0400 SaO2% (BldA) [Mass fraction] 97 % [facility] 07-19-2024 09:57-0400 Diastolic blood pressure 80 mm[Hg] Blossom Cody BUNDLE COLLECTOR Work Phone: [facility] 07-19-2024 09:57-0400 Systolic blood pressure 138 mm[Hg] Blossom Cody BUNDLE COLLECTOR Work Phone: [facility] 07-19-2024 09:22-0400 Body mass index (BMI) [Ratio] 50.03 kg/m2 Blossomdidier Cody BUNDLE COLLECTOR Work Phone: [facility] 07-19-2024 09:22-0400 Body weight 165.02 kg Blossomdidier Cody BUNDLE COLLECTOR Work Phone: [facility] 07-19-2024 09:22-0400 Heart rate 80 /min Blossom Cody BUNDLE COLLECTOR Work Phone: [facility] 06-14-2024 14:55-0500 Body height 182.88 cm Natalie Hernandez MD Work Phone: [facility] 06-14-2024 14:55-0500 Body mass index (BMI) [Ratio] 48.8 kg/m2 Natalie Hernandez MD Work Phone: [facility] 06-14-2024 14:55-0500 Body temperature 98.1 [degF] Natalie Hernandez MD Work Phone: [facility] 06-14-2024 14:55-0500 Body weight 163.29 kg Natalie Hernandez MD Work Phone: [facility] 06-14-2024 14:55-0500 Diastolic blood pressure 75 mm[Hg] Natalie Hernandez MD Work Phone: [facility] 06-14-2024 14:55-0500 Heart rate 104 /min Natalie Hernandez MD Work Phone: [facility] 06-14-2024 14:55-0500 Systolic blood pressure 124 mm[Hg] Natalie Hernandez MD Work Phone: [facility] 04-19-2024 09:47-0500 Body mass index (BMI) [Ratio] 52.21 kg/m2 Blossom Glo BUNDLE COLLECTOR Work Phone: [facility] 04-19-2024 09:47-0500 Body weight 172.19 kg Blossom Glo BUNDLE COLLECTOR Work Phone: [facility] 04-19-2024 09:47-0500 Diastolic blood pressure 72 mm[Hg] Blossom Cody BUNDLE COLLECTOR Work Phone: [facility] 04-19-2024 09:47-0500 Heart rate 84 /min Blossom Glo BUNDLE COLLECTOR Work Phone: [facility] 04-19-2024 09:47-0500 Systolic blood pressure 128 mm[Hg] Blossom Lozoyael BUNDLE COLLECTOR Work Phone: [facility] 01-26-2024 09:59-0400 Body height 182.88 cm [facility] 01-26-2024 09:59-0400 Body mass index (BMI) [Ratio] 51.2 kg/m2 [facility] 01-26-2024 09:59-0400 Body weight 171.54 kg [facility] 01-26-2024 09:59-0400 Diastolic blood pressure 83 mm[Hg] [facility] 01-26-2024 09:59-0400 Heart rate 81 /min [facility] 01-26-2024 09:59-0400 Respiratory rate 18 /min [facility] 01-26-2024 09:59-0400 SaO2% (BldA) [Mass fraction] 94 % [facility] 01-26-2024 09:59-0400 Systolic blood pressure 155 mm[Hg] [facility] 01-19-2024 11:00-0400 Body mass index (BMI) [Ratio] 51.82 kg/m2 Blossom Glo BUNDLE COLLECTOR Work Phone: [facility] 01-19-2024 11:00-0400 Body weight 170.91 kg Blossom Glo BUNDLE COLLECTOR Work Phone: [facility] 01-19-2024 11:00-0400 Diastolic blood pressure 78 mm[Hg] Blossom Cody BUNDLE COLLECTOR Work Phone: [facility] 01-19-2024 11:00-0400 Heart rate 84 /min Blossomdidier Lozoyael BUNDLE COLLECTOR Work Phone: [facility] 01-19-2024 11:00-0400 Systolic blood pressure 136 mm[Hg] Blossom Lozoyael BUNDLE COLLECTOR Work Phone: [facility] 10-19-2023 11:31-0400 Body height 182.88 cm [facility] 10-19-2023 11:31-0400 Body mass index (BMI) [Ratio] 51.7 kg/m2 [facility] 10-19-2023 11:31-0400 Body weight 172.87 kg [facility] 10-19-2023 11:31-0400 Diastolic blood pressure 83 mm[Hg] [facility] 10-19-2023 11:31-0400 Heart rate 74 /min [facility] 10-19-2023 11:31-0400 Respiratory rate 18 /min [facility] 10-19-2023 11:31-0400 SaO2% (BldA) [Mass fraction] 97 % [facility] 10-19-2023 11:31-0400 Systolic blood pressure 149 mm[Hg] [facility] 06-16-2023 11:33-0500 Diastolic blood pressure 84 mm[Hg] Blossom Lozoyael BUNDLE COLLECTOR Work Phone: [facility] 06-16-2023 11:33-0500 Systolic blood pressure 154 mm[Hg] Blossom Lozoyael BUNDLE COLLECTOR Work Phone: [facility] 06-16-2023 11:02-0500 Body mass index (BMI) [Ratio] 52.12 kg/m2 Blossom Glo BUNDLE COLLECTOR Work Phone: [facility] 06-16-2023 11:02-0500 Body weight 171.91 kg Blossom Lozoyael BUNDLE COLLECTOR Work Phone: [facility] 06-16-2023 11:02-0500 Heart rate 92 /min Blossom Glo BUNDLE COLLECTOR Work Phone: [facility] 06-09-2023 08:45-0500 Body height Tondra Mapus Other [employer] Other 06-09-2023 08:45-0500 Body height 182.88 cm MD Natalie Hernandez Work Phone: [facility] 06-09-2023 08:45-0500 Body mass index (BMI) [Ratio] 51.33 kg/m2 Tondra Mapus Other [facility] [employer] Other 06-09-2023 08:45-0500 Body weight 171.69 kg Tondra Mapus Other [facility] [employer] Other 06-09-2023 08:45-0500 Body weight 171.68 kg MD Natalie Hernandez Work Phone: [facility] 06-09-2023 08:45-0500 Diastolic blood pressure 80 mm[Hg] Tondra Mapus Other [facility] 06-09-2023 08:45-0500 Respiratory rate 18 /min Tondra Mapus Other [employer] Other 06-09-2023 08:45-0500 SaO2% (BldA) [Mass fraction] 94 % Tondra Mapus Other [facility] [employer] Other 06-09-2023 08:45-0500 Systolic blood pressure 148 mm[Hg] Tondra Mapus Other [facility] 01-04-2023 08:45-0400 Body height Tondra Mapus Other [employer] Other 01-04-2023 08:45-0400 Body mass index (BMI) [Ratio] 51.37 kg/m2 Tondra Mapus Other [employer] Other 01-04-2023 08:45-0400 Body weight 171.82 kg Tondra Mapus Other [employer] Other 01-04-2023 08:45-0400 Diastolic blood pressure 85 mm[Hg] Tondra Mapus Other [employer] Other 01-04-2023 08:45-0400 Respiratory rate 18 /min Tondra Mapus Other [employer] Other 01-04-2023 08:45-0400 SaO2% (BldA) [Mass fraction] 98 % Tondra Mapus Other [employer] Other 01-04-2023 08:45-0400 Systolic blood pressure 150 mm[Hg] Tondra Mapus Other [employer] Other 06-25-2022 09:45-0500 Body height Tondra Mapus Other [employer] Other 06-25-2022 09:45-0500 Body mass index (BMI) [Ratio] 51.14 kg/m2 Tondra Mapus Other [employer] Other 06-25-2022 09:45-0500 Body weight 171.05 kg Tondra Mapus Other [employer] Other 06-25-2022 09:45-0500 Diastolic blood pressure 80 mm[Hg] Tondra Mapus Other [employer] Other 06-25-2022 09:45-0500 Respiratory rate 18 /min Tondra Mapus Other [employer] Other 06-25-2022 09:45-0500 SaO2% (BldA) [Mass fraction] 95 % Tondra Mapus Other [employer] Other 06-25-2022 09:45-0500 Systolic blood pressure 139 mm[Hg] Tondra Mapus Other [employer] Other 01-06-2022 09:45-0400 Body height Tondra Mapus Other [employer] Other 01-06-2022 09:45-0400 Body mass index (BMI) [Ratio] 48.28 kg/m2 Tondra Mapus Other [employer] Other 01-06-2022 09:45-0400 Body weight 161.48 kg Tondra Mapus Other [employer] Other 01-06-2022 09:45-0400 Diastolic blood pressure 71 mm[Hg] Tondra Mapus Other [employer] Other 01-06-2022 09:45-0400 Respiratory rate 20 /min Tondra Mapus Other [employer] Other 01-06-2022 09:45-0400 SaO2% (BldA) [Mass fraction] 95 % Tondra Mapus Other [employer] Other 01-06-2022 09:45-0400 Systolic blood pressure 124 mm[Hg] Tondra Mapus Other [employer] Other Encounters Encounter Date Encounter Type Care Provider Facility Start: 11-27-2024 End: 11-27-2024 ambulatory Apryl Granados BUNDLE COLLECTOR-C Work Phone: 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); Ulcer of right foot, unspecified ulcer stage (HCC) ([facility]); Poorly controlled diabetes mellitus ([facility] Dyslipidemia ([facility]); Hypertriglyceridemia ([facility]); Essential hypertension; Morbid obesity ([facility]); Amputation of toe, traumatic, left, sequela ([facility]); Vitamin B 12 deficiency; Depressed mood; Insomnia, unspecified type Start: 07-19-2024 End: 07-19-2024 ambulatory BLOSSOM CDOY Not Available Start: 06-14-2024 End: 06-14-2024 ambulatory Natalie Hernandez MD Work Phone: [facility] Work Phone: Start: 06-14-2024 End: 06-14-2024 Patient encounter procedure Natalie Hernandez MD Work Phone: [facility] Work Phone: Start: 05-30-2024 Non-patient / Non-visit [facility] Work Phone: Start: 05-30-2024 End: 06-01-2024 [...] Start: 04-26-2024 End: 04-26-2024 ambulatory Natalie Hernandez Facility:[facility] Start: 04-26-2024 End: 04-26-2024 Departed Referred Natalie Hernandez MD Work Phone: [facility] Start: 04-25-2024 End: 04-27-2024 Clinisync Result Encounter Generic External Data Provider [facility] External Department Unsolicited Start: 04-25-2024 End: 04-27-2024 Clinisync Result Encounter Generic External Data Provider [facility] External Department Unsolicited Start: 04-19-2024 End: 04-19-2024 Bamboo flowsheet Blossom Cody BUNDLE COLLECTOR Work Phone: [facility] Start: 04-19-2024 End: 04-19-2024 Bamboo flowsheet Blossom Cody BUNDLE COLLECTOR Work Phone: [facility] Start: 04-19-2024 End: 04-19-2024 Patient encounter status Blossom Cody BUNDLE COLLECTOR Work Phone: [facility] Start: 04-19-2024 End: 04-19-2024 Periodic preventive med est patient 40-64yrs Blossom Cody BUNDLE COLLECTOR Work Phone: [facility] Comment on above: Diabetic polyneuropa thy associated with type 2 diabetes mellitus (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); Dyslipidemia (CMS/HCC); Hypertriglyceridemia (CMS/HCC); Poorly controlled diabetes [...] FM Comment on above: Pure hyperglyceridem ia ([facility]/HCC) Start: 01-26-2024 End: 01-26-[address] [facility] Work Phone: Start: 01-26-2024 End: 01-26-2024 Patient encounter procedure [facility] Work Phone: Start: 01-20-2024 Non-patient / Non-visit [facility] Work Phone: Start: 01-19-2024 End: 01-19-2024 Bamboo flowsheet Blossom Cody BUNDLE COLLECTOR Work Phone: [facility] Start: 01-19-2024 End: 01-19-2024 Bamboo flowsheet Blossom Cody BUNDLE COLLECTOR Work Phone: [facility] Start: 01-19-2024 End: 01-19-2024 Office outpatient visit 25 minutes Blossom Cody BUNDLE COLLECTOR Work Phone: [facility] Comment on above: Diabetic polyneuropa thy associated with type 2 diabetes mellitus ([facility]/HCC) (Primary Dx); Type 2 diabetes mellitus with neurological manifestation (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); Type 2 diabetes mellitus with hyperglycemia, with long-term current use of insulin ([facility]); Dyslipidemia ([facility]); Hypertriglyceridemia ([facility]); Amputation of toe, traumatic, left, sequela ([facility]); Vitamin B 12 deficiency; Pure hyperglyceridemia ([facility]/HCC) Start: 01-19-2024 End: 01-19-2024 ambulatory BLOSSOM CODY Not Available Start: 12-30-2023 End: 12-30-2023 Refill Natalie Hernandez MD Work Phone: [facility] Comment on above: Essential hypertensi on Start: 10-29-2023 End: 10-29-2023 ambulatory MIRLANDE MOORE Not Available Start: 10-19-2023 End: 10-19-[address] [facility] Work Phone: Start: 10-19-2023 End: 10-19-2023 [facility] Start: 06-16-2023 Bamboo flowsheet Blossom cabrales NP Work Phone: [facility] Start: 06-16-2023 Bamboo flowsheet Blossom cabrales BUNDLE COLLECTOR Work Phone: [facility] Start: 06-16-2023 [...] with long-term current use of insulin (CMS/HCC); assisted (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 (Z79.4); Acquired absence of other toe(s), unspecified side (Z89.429); Type 2 diabetes mellitus with diabetic neuropathy, with long-term current use of insulin ([facility]); Body mass index [BMI] 50.0-59.9, adult (Z68.43); Type 2 diabetes mellitus with foot ulcer, with long-term current use of insulin (CMS/HCC); 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.49); Status post amputation of lesser toe, unspecified laterality (CMS/HCC); Arthritis of left foot; Acquired hallux valgus of left foot; Type 2 diabetes mellitus with hyperglycemia, with long-term current use of insulin ([facility]); Morbid obesity ([facility]/HCC) Start: 06-15-2023 End: 06-15-2023 ambulatory Tondra Mapus Other [employer] Other Start: 06-15-2023 Telephone encounter Tondra Mapus [facility] Start: 06-09-2023 (DM) Diabetes Tondra Mapus [facility] Start: 06-09-2023 End: 06-09-2023 Discharged Recurring MD Natalie Hernandez [facility] Work Phone: Start: 06-09-2023 End: 06-09-2023 ambulatory MD Natalie Hernandez Work Phone: [employer] Other Start: 06-09-2023 End: 06-09-2023 Patient encounter procedure MD Natalie Hernandez Work Phone: [facility]- Start: 01-04-2023 (DM) Diabetes Tondra Dayannaus [facility] Start: 01-04-2023 End: 01-04-2023 ambulatory Tondra Mapus Other [employer] Other Start: 12-21-2022 End: 12-21-2022 ambulatory Tondra Mapus Other [employer] Other Start: 12-21-2022 Telephone encounter Tondra Dayannaus [facility] Start: 10-12-2022 ambulatory NATANAEL FELDMAN Faci lity:H1 Start: 10-06-2022 End: 10-07-2022 ambulatory NATANAEL FELDMAN Facility:H1 Start: 10-01-2022 Encounter for prepro cedural cardiovascular examination [facility] Selina [facility] Start: 10-01-2022 Encounter for prepro cedural laboratory examination [facility] Selina [facility] Start: 09-30-2022 End: 10-01-2022 ambulatory NATANAEL [facility] Facility:H[facility] Start: 09-30-2022 End: 10-01-2022 Encounter for preprocedural laboratory examination NATANAEL Marks [facility] Facility:[facility] Start: 09-15-2022 End: 09-16-2022 ambulatory NATANAEL Selina [facility] Facility:H1 Start: 09-10-2022 End: 09-10-2022 ambulatory Tondra Mapus Other [employer] Other Start: 09-10-2022 Telephone encounter Tondra Mapus [facility] Start: 08-24-2022 End: 08-25-2022 ambulatory NATANAEL [facility] Facility:H1 Start: 08-10-2022 End: 08-10-2022 ambulatory Tondra Mapus Other [employer] Other Start: 08-10-2022 Telephone encounter Tondra Mapus [facility] Start: 08-03-2022 End: 08-04-[address] NATALIE HERNANDEZ Facility:H1 Start: 07-13-2022 End: 07-14-2022 ambulatory MARTELL NAVAS Facility:H1 Start: 06-30-2022 End: 07-01-2022 ambulatory NATANAEL [facility] Facility:H1 Start: 06-25-2022 (DM) Diabetes Tondra Mapus [facility] Start: 06-25-2022 End: 06-25-2022 ambulatory Tondra Mapus Other [employer] Other Start: 06-16-2022 End: 06-17-2022 ambulatory NATANAEL Sel[facility] Facility:H1 Start: 06-08-2022 End: 06-09-2022 ambulatory NATANAEL Selina [facility] Facility:H1 Start: 05-25-2022 End: 05-26-2022 ambulatory NATANAEL Marks [facility] Facility:H1 Start: 05-12-2022 End: 05-13-2022 ambulatory NATANAEL Marks [facility] Facility:H1 Start: 04-30-2022 End: 05-01-2022 ambulatory NATANAEL Selina HIGHLANDER Facility:H1 Start: 04-24-2022 End: 04-25-2022 ambulatory [...] Start: 03-03-2022 End: 03-04-2022 ambulatory NATANAEL D MICHELLEANDER Facility:H1 Start: 02-18-2022 End: 02-18-2022 ambulatory Tondra Mapus Other [employer] Other Start: 02-18-2022 Telephone encounter Tondra Shannon [facility] Start: 02-09-2022 End: 02-10-2022 ambulatory NATANAEL Selina HIGHLANDER Facility:H1 Start: 01-26-2022 End: 01-27-2022 ambulatory NATANAEL FELDMAN Facility:H1 Start: 01-13-2022 End: 01-14-2022 ambulatory NATANAEL FELDMAN Facility:H1 Start: 01-06-2022 (DM) Diabetes Tondra Shannon [facility] Start: 01-06-2022 End: 01-06-2022 ambulatory Tondra Mapus Other [employer] Other Start: 12-29-2021 End: 12-30-2021 ambulatory NATANAEL Marks HIGHLANDER Facility:H1 Start: 12-22-2021 End: 12-23-2021 ambulatory NATANAEL Marks HIGHLANDER Facility:H1 Start: 12-15-2021 End: 12-16-2021 ambulatory PETER D HIGHLANDER Facility:H1 Start: 12-08-2021 End: 12-09-2021 ambulatory PETER D HIGHLANDER Facility:H1 Start: 12-01-2021 End: 12-02-2021 ambulatory NATANAEL D FRANCIA Facility:H1 Start: 11-24-2021 End: 11-25-2021 ambulatory NATANAEL FELDMAN Facility:H1 Start: 11-20-2021 End: 11-21-2021 ambulatory NATANAEL FELDMAN Facility:H1 Start: 11-17-2021 End: 11-18-2021 ambulatory NATANAEL D MICHELLEANDER Facility:H1 Start: 11-14-2021 End: 11-15-2021 ambulatory NATANAEL D MICHELLEANDER Facility:H1 Start: 11-11-2021 End: 11-12-2021 ambulatory NATANAEL FELDMAN Facility:H1 Start: 11-06-2021 End: 11-07-2021 ambulatory NATANAEL D FRANCIA Facility:H1 Start: 11-03-2021 End: 11-04-2021 ambulatory NATANAEL [...] post amputation of lesser toe, unspecified laterality ([facility]) Blossom Cody BUNDLE COLLECTOR Work Phone: Plan of Treatment Date Care Activity Detail Author Start: 07-26-2025 Glaucoma screening Diabetes: Retinopathy Screening [facility] Start: 01-31-2025 End: 01-31-2025 Patient encounter procedure 01/31/2025 9:30 AM EDT Office Visit [facility] [address] [place] [phone] Apryl Granados NP [address] [place] [address] [facility] Start: 10-19-2024 End: 10-19-2024 Patient encounter procedure [facility] Comment on above: Arrived Start: 07-19-2024 End: 07-19-2024 Patient encounter procedure 07/19/2024 9:30 AM EDT Office Visit [facility] [address] [place] [address] Blossom Cody NP [address] [place], [place] [id number] [facility] Start: 04-26-2024 Hemoglobin A1c measurement Diabetes: Hemoglobin A1C [facility] Start: 04-19-2024 End: 04-19-2024 Patient encounter procedure [facility] Comment on above: Diabetic polyneuropathy associated with type 2 diabetes mellitus ([facility]/HCC) (Primary Dx); Wellness examination; Type 2 diabetes mellitus with neurological manifestation (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/HCC); Dyslipidemia (CMS/HCC); Hypertriglyceridemia (CMS/HCC); Poorly controlled diabetes mellitus ([facility]/HCC); Type 2 diabetes mellitus with hyperglycemia, with long-term current use of insulin ([facility]); Amputation of toe, traumatic, left, sequela ([facility]/HCC) Start: 03-24-2024 Urine screening for protein Diabetes: Urine Protein Screening [facility] Start: 03-15-2024 Influenza vaccination Influenza Vaccine (#1) [facility] Comment on above: Postponed from 01/09/2024 (Patient Refus ed) Start: 01-25-2024 End: 01-25-2024 Patient encounter procedure 01/25/2024 10:30 AM EDT Office Visit [facility] [address] [place] [phone] Blossom Cody NP [address] [place] [address] [facility] Start: 01-19-2024 Hemoglobin A1c measurement Diabetes: Hemoglobin A1C [facility] Start: 01-19-2024 End: 01-19-2024 Patient encounter procedure 01/19/2024 11:00 AM EDT Office Visit [facility] [address] [place] [phone] Blossom Cody NP [address] [place] [address] Diabetic polyneuropathy associated with type 2 diabetes mellitus (CMS/HCC) (Primary Dx); 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); Essential hypertension; 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, subsequent encounter (CMS/HCC); Type 2 diabetes mellitus with hyperglycemia, with long-term current use of insulin (CMS/HCC); Dyslipidemia (CMS/HCC); Hypertriglyceridemia (CMS/HCC); Amputation of toe, traumatic, left, sequela (CMS/HCC); Vitamin B 12 deficiency [facility] Comment on above: Diabetic polyneuropathy [...] Start: 01-09-2024 Influenza vaccination Influenza Vaccine (#1) [facility] Start: 09-15-2023 End: 09-15-2023 Patient encounter procedure 09/15/2023 9:30 AM EDT Office Visit [facility] [address] [place] [phone] Blossom Cody NP [address] [place] [address] [facility] Start: 09-07-2023 Hemoglobin A1c measurement Diabetes: Hemoglobin A1C [facility] Start: 07-26-2023 Glaucoma screening Diabetes: Retinopathy Screening [facility] Start: 07-07-2023 End: 07-07-2023 Patient encounter procedure 07/07/2023 9:00 AM EST Office Visit [facility] [address] [place] [address] [facility] Start: 06-16-2023 End: 06-16-2023 Patient encounter procedure 06/16/2023 11:00 AM EST Office Visit [facility] [address] [place] [address] Blossom Cdoy NP [address] [place] [address] Diabetic polyneuropathy associated with type [...] disorder (CMS/HCC); Morbid obesity (CMS/HCC); Hypertriglyceridemia (CMS/HCC) [facility] Comment on above: Diabetic polyneuropathy [...] disorder (CMS/HCC); Morbid obesity (CMS/HCC); Hypertriglyceridemia (CMS/HCC) Start: 1980 Screening for malignant neoplasm of colon [facility] AEROBIC CULTURE AEROBIC CULTURE Lab Routine 05/26/2024 6:16 PM EST [facility] BLOOD CULTURE 1 BLOOD CULTURE 1 Lab Routine 04/27/2024 6:10 AM EST [facility] BLOOD CULTURE 2 BLOOD CULTURE 2 Lab Routine 04/25/2024 1:00 PM [facility] BLOOD CULTURE 2 BLOOD CULTURE 2 Lab Routine 04/27/2024 6:24 AM EST [facility] BLOOD CULTURE 2 BLOOD CULTURE 2 Lab Routine 05/30/2024 12:28 PM EST [facility] Comprehensive metabo lic 1999 panel - Serum or Plasma [facility] Comprehensive metabo lic 1999 panel - Serum or Plasma [facility] Patient Education Diabetes and diet [facility] Work Phone: [facility] Immunizations Immunization Date Immunization Notes Care Provider [facility] 03-14-2024 influenza, seasonal, injectable, preservative free Blossom Cody BUNDLE COLLECTOR Work Phone: [facility] 03-14-2024 influenza virus vacc ine, unspecified formulation Blossom Cody BUNDLE COLLECTOR Work Phone: [facility] 07-05-2023 tetanus and diphther ia toxoids, adsorbed, preservative free, for adult use (2 Lf of tetanus toxoid and 2 Lf of diphtheria toxoid) Natalie Hernandez MD Work Phone: [facility] 03-24-2023 influenza, injectabl e, quadrivalent, preservative free Blossom Cody BUNDLE COLLECTOR Work Phone: [facility] 03-24-2023 influenza virus vacc ine, unspecified formulation Natalie Hernandez MD Work Phone: [facility] 08-26-2021 tetanus and diphther ia toxoids, adsorbed, preservative free, for adult use (5 Lf of tetanus toxoid and 2 Lf of diphtheria toxoid) Blossom Cody BUNDLE COLLECTOR Work Phone: [facility] 03-28-2021 influenza, injectabl e, quadrivalent, preservative free Blossom Cody BUNDLE COLLECTOR Work Phone: [facility] 02-13-2020 Influenza, injectabl e, Madin Satanta Canine Kidney, preservative free, quadrivalent Blossom Glo BUNDLE COLLECTOR Work Phone: [facility] 02-22-2019 influenza, injectabl e, quadrivalent, preservative free Blossomdidier Lozoyael BUNDLE COLLECTOR Work Phone: [facility] 02-07-2018 influenza, injectabl e, quadrivalent, preservative free Blossomdidier Cody BUNDLE COLLECTOR Work Phone: [facility] Healthcare Payers Date Payer Category Payer Private Health Insurance [facility] [id number] 2022 Unknown [id number] 2020 Self-pay [id number] 1979 Unknown [id number] 2.16.840.1.120767.3.579. 2.593 1979 Unknown [id number] 2.16.840.1.619791.3.579. 2.593 1979 Unknown [id number] 2.16.840.1.978498.3.579. 2.593 1979 Unknown [id number] 2.16.840.1.741143.3.579. 2.593 1979 Unknown [id number] 2.16.840.1.244997.3.579. 2.593 1979 Unknown [id number] 2.16.840.1.029492.3.579. 2.593 1979 Unknown [id number] 2.16.840.1.150678.3.579. 2.593 1979 Unknown [id number] 2.16.840.1.840862.3.579. 2.593 1979 Unknown [id number] 2.16.840.1.457835.3.579. 2.593 1979 Unknown [id number] 2.16.840.1.887961.3.579. 2.593 1979 Unknown [id number] 2.16.840.1.511455.3.579. 2.593 1979 Unknown [id number] 2.16.840.1.074929.3.579. 2.593 1979 Unknown [id number] 2.16.840.1.161088.3.579. 2.593 1979 Unknown [id number] 2.16.840.1.539714.3.579. 2.593 1979 Unknown [id number] 2.16.840.1.491807.3.579. 2.593 1979 Unknown [id number] 2.16.840.1.748631.3.579. 2.593 1979 Unknown [id number] 2.16.840.1.023562.3.579. 2.593 1979 Unknown [id number] 2.16.840.1.949902.3.579. 2.593 1979 Unknown [id number] 2.16.840.1.437666.3.579. 2.593 1979 Unknown [id number] 2.16.840.1.165704.3.579. 2.593 1979 Unknown [id number] 2.16.840.1.741446.3.579. 2.593 1979 Unknown [id number] 2.16.840.1.952798.3.579. 2.593 1979 Unknown [id number] 2.16.840.1.260514.3.579. 2.593 1979 Unknown [id number] 2.16.840.1.024602.3.579. 2.593 1979 Unknown [id number] 2.16.840.1.974013.3.579. 2.593 1979 Unknown [id number] 2.16.840.1.064683.3.579. 2.593 1979 Unknown [id number] 2.16.840.1.504304.3.579. 2.593 1979 Unknown [id number] 2.16.840.1.109061.3.579. 2.593 1979 Unknown [id number] 2.16.840.1.578099.3.579. 2.593 1979 Unknown [id number] 2.16.840.1.398327.3.579. 2.593 1979 Unknown [id number] 2.16.840.1.618519.3.579. 2.593 1979 Unknown [id number] 2.16.840.1.500018.3.579. 2.593 1979 Unknown [id number] 2.16.840.1.074493.3.579. 2.593 1979 Unknown [id number] 2.16.840.1.973145.3.579. 2.593 1979 Unknown [id number] 2.16.840.1.123138.3.579. 2.593 1979 Unknown [id number] 2.16.840.1.067539.3.579. 2.593 1979 Unknown [id number] 2.16.840.1.945951.3.579. 2.593 1979 Unknown [id number] 2.16.840.1.185652.3.579. 2.593 1979 Unknown [id number] 2.16.840.1.243740.3.579. 2.593 1979 Unknown [id number] 2.16.840.1.368530.3.579. 2.593 1979 Unknown [id number] 2.16.840.1.080082.3.579. 2.593 1979 Unknown [id number] 2.16.840.1.455645.3.579. 2.1259 1979 Unknown [id number] 2.16.840.1.609355.3.579. 2.1259 1979 Unknown [id number] 2.16.840.1.697921.3.579. 2.1259 1979 Unknown [id number] 2.16.840.1.893032.3.579. 2.1259 1979 Unknown [id number] 2.16.840.1.503949.3.579. 2.1259 1959 Unknown [id number] 2.16.840.1.993711.19 1959 Unknown [id number] 2.16840.1.793969.19 Unknown [id number] 2.16.840.1.174804.3.579. 2.531 Unknown [id number] 2.16.840.1.674664.3.579. 2.531 Social History Date Type Detail Facility Unknown if ever smoked [employer] Other Start: 03-23-2023 End: 10-19-2024 Sex Assigned At [facility] Start: 12-21-2022 Tobacco smoking status [facility] Never smoked tobacco [facility] Start: 12-21-2022 Tobacco use and exposure Smokeless tobacco non-user [facility] Start: 05-18-2023 End: 10-19-2024 Alcohol intake [...] Start: 1980 Sex Assigned At Male [facility] Start: 10-19-2023 End: 10-19-2023 Tobacco smoking status NHIS Ex-smoker (finding) [facility] Start: 06-14-2024 End: 08-21-2024 Sex Male (finding) [facility] Medical Equipment Procedure Code Equipment Code [...] x 5/16 syringe Start: 06-23-2023 End: 08-09-2024 Blood Sugar Diagnostic (Onetouch Verio Test Strips) strip Start: 01-26-2024 Insulin Syringe-Needle U-100 1 mL 31 gauge x 5/16 syringe Start: 08-09-2024 blood sugar diagnostic (OneTouch Verio test strips) Start: 10-19-2023 End: 08-21-2024 Insulin Syringe-Needle U-100 (Bd Insulin Syringe Ultra-Fine) 1 mL 31 gauge x 5/16 syringe Start: 06-23-2023 End: 08-09-2024 Pen Needle, Diab etic 32 gauge x 5/32 needle Start: 08-21-2024 End: 08-21-2024 Pen Needle, Diab etic 32 gauge x 5/32 needle Start: 08-21-2024 End: 11-27-2024 Clinical Notes 05-10-2020 to 10-19-2024 Apryl Granados, JENNYFER - 10/19/2024 10:00 AM Chani Cody NP [...] He is under the care of an client liaison for his diabetes, with a scheduled appointment [...] necessitated surgical intervention and subsequent rehabilitation at [place] due to his inability to bear weight on the foot. During his two-month stay at [place], he contracted MRSA. He underwent physical therapy [...] He maintains regular annual check-ups with an senior c web developer and dentist. He reports no gastrointestinal symptoms [...] Medical History: Diagnosis Date BMI 40.0-44.9, adult ([facility]) BMI 45.0-49.9, adult ([facility]) Constipation COVID-19 DM (diabetes mellitus) ([facility]) Dyslipidemia History of being hospitalized 03/2018 Uncontrolled diabetes, infection History of COVID-19 05/13/2020 Non-pressure chronic ulcer of other part of unspecified foot with unspecified severity ([facility]) 10/02/2022 Osteomyelitis of great toe of right foot ([facility]) 10/02/2022 Osteomyelitis of right foot ([facility]) 10/02/2022 Pressure ulcer of other site, stage 2 ([facility]) 10/02/2022 Ulcer of foot due to type 2 diabetes mellitus ([facility]) 10/02/2022 Ulcerated, foot, left, limited to breakdown of skin ([facility]) 10/02/2022 Past Surgical History: Procedure Laterality Date AMPUTATION FOOT / TOE Right 03/2018 2nd toe AMPUTATION FOOT / TOE Right 01/10/2021 Hallux - Dr. Moore AMPUTATION FOOT / TOE Left 05/17/2023 4th toe - Dr. Feldman CHEILECTOMY Left 02/14/2020 [place] [facility] CHEILECTOMY Left 09/15/2018 1st Metatarsal FOOT [...] Friends and Family: Twice a week Attends [employer] Services: More than 4 times per year [...] amputation of toe of right foot, sequela ([facility]) Amputation of toe, traumatic, left, sequela ([facility]) Morbid obesity ([facility]) Hypertriglyceridemia Assessment & Plan 1. Type 2 diabetes mellitus. He is currently under the care of an client liaison, with his most recent A1c level recorded [...] He has a scheduled appointment with Dr. Feldmna next week. He reports no issues and [...] 01/19/2025) for DM. documented in this encounter [facility] 07-19-2024 History of Presen t illness [...] wound , was in rehab place in [place] couldn't put weight on it for awhile. Had MRSA while there. Had IV ATB 4 times a day for [address] Nolasco in [place]. Was taking Vit D weekly in rehab. Had PT daily there. Now area is approx 50 cent size (medial lateral right foot). Sees Dr Feldman. Has been home for 2 weeks now. Blood sugars 120-160 fasting and after meals. Taking Lantus 42-46 units. [facility] Victoza-pt will clarify with endo [...] in Apr 2024) documented in this encounter [facility] 06-14-2024 Evaluation note Diagnosis Onset Date Resolution Diabetes acute June 14, 2024 2:39pm MDRO (multiple drug resistant organisms) resistance acute June 14 2:39pm Receiving intravenous antibiotic treatment as outpatient acute June 14 2:39pm Wound of right foot acute u 2024 2:39pm BMI 50.0-59.9, adult acute Apri l 2024 8:51am Dietary counseling and surveillance acute August 21, 2024 8:51am Hypertension acute August 21, 2024 8:51am Mixed hyperlipidemia acute Apri l 2024 8:51am Type 2 diabetes mellitus with hyperglycemia acute August 21, 2 025 8:51am Wound of left foot acute August 21, 2024 8:51am Wound of right foot acute August 21, 2024 8:51am [facility] Work Phone: [phone]) 481-886512-11-2024 History of Present illness Narrative* Blossom Cody [...] of toe of right foot, subsequent encounter ([facility]) Comments: Sees Dr Feldman and Oscar Dyslipidemia ([facility]) Comments: Lipids: Chol 126, Trig 219, HDL [...] recheck-hypertension/Diabetes, sooner if concerns documented in this encounterWestern [facility] [id number] Telephone encounter Note* Telephone Encounter - Blossom Cody NP - 02/28/2024 11:53 AM EDT [facility] [id number] Miscellaneous Notes* Telephone Encounter - Blossom Cody NP - 02/28/2024 11:53 AM EDT Rx sent documented in this encounterWestern Missouri Mental Health [id number] History of Present illness Narrative* Blossom Cody [...] polyneuropathy associated with type 2 diabetes mellitus ([facility]) Comments: HgbA1c 9.7 in October. He sees Endo. Plans to do lab for them this week. He has Endo appt next week. Enc yearly eye exams. Enc to watch portions on carbs, avoid sweets. Try to be as active as able. Type 2 diabetes mellitus with neurological manifestation ([facility]) Essential hypertension: Controlled. Pt will verify what dose he has at home ie 30 or 40mg of Lisinopril. 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): Sees Dr Feldman and Dr Moore Type 2 diabetes mellitus with hyperglycemia, with long-term current use of insulin ([facility]): As above Dyslipidemia ([facility]) Comments: Last LDL 79 in Mar 2023 Hypertriglyceridemia ([facility]) Comments: Last Trig 290 in Mar 2023. Avoid sweets, more fruits and mainly non-starchy vegetables, lean protien, nuts and routine exercise. Amputation of toe, traumatic, left, sequela ([facility]) Vitamin B 12 deficiency Comments: Last Vit B12 351 Pt declined flu vaccine today, prefers to wait into later February, could stop back here or do at work or pharmacy. Does not plan to get any more covid vaccines. Enc to think about Prevnar 20. F/U in 3 months for Wellness, sooner if concerns. PVU documented in this encounterNOPike County Memorial [id number] Telephone encounter Note* Telephone Encounter - Blossom Cody NP - 12/30/2023 4:44 PM EDT [facility] [id number] Miscellaneous Notes* Telephone Encounter - Blossom Cody NP - 12/30/2023 4:44 PM EDT Rx sent documented in this encounterWestern [facility] Mental Health [id number] History of Present illness Narrative* Blossom Cody [...] sugars ranging from 120-170's. Sees [facility] in [place], next appt September 13 with them. Taking [...] they cut it off 05/17/23-Dr Feldman. [facility], has appt next for recheck. [...] polyneuropathy associated with type 2 diabetes mellitus ([facility]) Comments: Seepatrice Lewis, last HgbA1c 8.11 May 2023 (prior 8.9 end of December). Pt asked me why we can't just take care of his Diabetes, so he doesn't have to go to [place]. I told him because his sugars are [...] DM care again. PVU Diabetic neuropathic arthropathy (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 Other 01-31-2024 Evaluation note* Encounter Date Diagnosis [...] Cost is prohibitive for pt to take dankance, stevenempic,nahid. Steglatro is tier 2 on formulary. 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 Feldman May, Cracked skin on feet (ICD-10 - R23.4) keep f/u with Dr. Feldman [employer] Other 08-28-2023 Evaluation note* Encounter Date Diagnosis [...] for Lispro/ozempic 0.5mg sent to [facility] in [place] 01/04/23 7. Prescriptions will not be filled [...] (ICD-10 - I10) on julissa Dec, termite helper current use of insulin (ICD-10 - Z79.4) Dec, Vitamin B 12 deficiency (ICD-10 - E53.8) 12/30 vit b 12 335 at target Dec, BMI 50.0-59.9, adult (ICD-10 - Z68.43) see above Dec, Wound of foot (ICD-10 - S91.309A) pt has apt scheduled with Dr. Francia keenan [employer] Other 05-30-2023 NotePROCEDURE: XR FOOT LT MIN [...] Electronically authenticated by: FRANCO FRANCES Date: 2022-10-06 14:13[facility]05-04-2023 Evaluation note* Encounter Date Diagnosis Assessment Notes Treatment Notes Treatment Clinical Notes September, Type 2 diabetes mellitus with hyperglycemia (ICD-10 - E11.65) [employer] Other 04-17-2023 NotePROCEDURE: XR FOOT LT MIN [...] Electronically authenticated by: FERN SOSA Date: 2022-08-24 12:46[facility]02-16-2023 Evaluation note* Encounter Date Diagnosis Assessment Notes Treatment Notes Treatment Clinical Notes Jun, Type 2 diabetes mellitus with hyperglycemia (ICD-10 - E11.65) 1. Uncontrolled, a Type 2 diabetes with A1c of 8.2% 2. Blood glucose levels above target. Discussed with pt restarting ozempic, he had s/e from higher dose ozempic 1mg and concern with cost works at [employer]. Pt agreeable to starting sample ozempic 0.5mg [...] sent to [facility] in [place] 06/25/22 7. Prescriptions will not be filled [...] (hypertension) (ICD-10 - I10) on julissa Jun, assisted current use of insulin (ICD-10 - Z79.4) Jun, Vitamin B 12 deficiency (ICD-10 - E53.8) 12/28 vit b 12 423 at target Jun, BMI 50.0-59.9, adult (ICD-10 - Z68.43) [employer] Other 02-07-2023 NotePROCEDURE: XR ANKLE LT MIN [...] Electronically authenticated by: GISSEL RUBIO Date: 2022-06-16 16:33[facility]02-07-2023 NotePROCEDURE: XR ANKLE LT MIN [...] Electronically authenticated by: GISSEL RUBIO Date: 2022-06-16 16:33[facility]08-30-2022 Evaluation note* Encounter Date Diagnosis [...] last visit, continue with weight loss efforts [employer] Other 01-01-2021 History general Narrative - Reported* Type Description Date Medical History type II diabetes Medical History hypertension Medical History hyperlipidemia Medical History covid 05/2020 Surgical History Ulcer on left great toe X2 Surgical History Partial amputation Right great toe 01/2021 Surgical History All toes right foot amputated Hospitalization History Toe infection 2017 [employer] Other 01-01-2021 History general Narrative - Reported* Type Description Date Medical History type II diabetes Medical History hypertension Medical History hyperlipidemia Medical History covid 05/2020 Surgical History Ulcer on left great toe X2 Surgical History Partial amputation Right great toe 01/2021 Surgical History All toes right foot amputated Surgical History Left great toe corre ctive surgery with Dr. Feldman in [place] 10/2022 Hospitalization History Toe infection 2017 [employer] Other Chivo complaint+Reason for visit Narrative* Chief Complaint no meter Reason for Visit BMI 50.0-59.9, adult Dietary counseling and surveillance Hypertension Mixed hyperlipidemia Type 2 diabetes mellitus with hyperglycemia [facility] Work Phone: Chiet complaint+Reason for visit Narrative* Chief Complaint meter Reason for Visit BMI 50.0-59.9, adult Dietary counseling and surveillance Hypertension Mixed hyperlipidemia Type 2 diabetes mellitus with hyperglycemia Wound of left foot Wound of right foot [facility] Work Phone: Evaluation noteNo InformationNort Yugma Other Evaluation note* Diagnosis Diabetic polyneuropathy associated with type 2 diabetes mellitus ([facility])- Primary Diabetic neuropathic arthropathy (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) Body mass index [BMI] 50.0-59.9, adult (Z68.43) Type 2 diabetes mellitus with foot ulcer, with long-term current use of insulin ([facility]) 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.49) Status post amputation of lesser toe, unspecified laterality (CMS/[facility]) Arthritis of left foot Acquired hallux valgus of left foot Type 2 diabetes mellitus with hyperglycemia, with long-term current use of insulin ([facility]) Morbid obesity ([facility]) Morbid obesity documented in this encounter [facility] HealthcareEvaluation noteNo assessment information availableBlanchard Valley Health System Work Phone: Evaluation note* Diagnosis Onset Date Resolution Status BMI 50.0-59.9, adult acute Dietary counseling and surveillance acute Hypertension acute Mixed hyperlipidemia acute Type 2 diabetes mellitus with hyperglycemia acute [facility] Work Phone: Evaluation note* Diagnosis Onset Date Resolution Status BMI 50.0-59.9, adult acute Dietary counseling and surveillance acute Hypertension acute Mixed hyperlipidemia acute Type 2 diabetes mellitus with hyperglycemia acute Wound of left foot acute Wound of right foot acute [facility] Work Phone: Evaluation note* Diagnosis Pure hyperglyceridemia ([facility]) Pure hyperglyceridemia documented [facility] encounter [facility]* Diagnosis Diabetic polyneuropathy associated with type 2 diabetes mellitus ([facility])- Primary Type 2 diabetes mellitus with neurological manifestation (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) Type 2 diabetes mellitus with hyperglycemia, with long-term current use of insulin ([facility]) Dyslipidemia ([facility]) Other and unspecified hyperlipidemia Hypertriglyceridemia ([facility]) Pure hyperglyceridemia Vitamin B 12 deficiency Other B-complex deficiencies Pure hyperglyceridemia ([facility]) Pure hyperglyceridemia documented [facility]* Diagnosis Diabetic polyneuropathy associated with type 2 diabetes mellitus ([facility])- Primary Wellness examination Type 2 diabetes mellitus with neurological manifestation (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) Dyslipidemia ([facility]) Other and unspecified hyperlipidemia Hypertriglyceridemia ([facility]) Pure hyperglyceridemia Poorly controlled diabetes mellitus ([facility]) Type II or unspecified type diabetes mellitus without mention of complication, not stated as uncontrolled Type 2 diabetes mellitus with hyperglycemia, with long-term current use of insulin ([facility]) Diabetic autonomic neuropathy associated with type 2 diabetes mellitus ([facility]) Type II or unspecified type diabetes mellitus with neurological manifestations, not stated as uncontrolled Acquired hallux valgus, unspecified laterality Morbid obesity ([facility]) Morbid obesity Vitamin B 12 deficiency Other B-complex deficiencies 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[facility]) Lipoprotein deficiencies documented [facility]* Diagnosis Essential hypertension Unspecified essential hypertension documented [facility] encounter [facility]* Diagnosis Diabetic polyneuropathy associated with type 2 diabetes mellitus ([facility])- Primary Type 2 diabetes mellitus with neurological manifestation (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) Type 2 diabetes mellitus with hyperglycemia, with long-term current use of insulin ([facility]) Ulcer of right foot, unspecified ulcer stage (HCC) ([facility]) Poorly controlled diabetes mellitus ([facility]) Type II or unspecified type diabetes mellitus without mention of complication, not stated as uncontrolled Dyslipidemia ([facility]) Other and unspecified hyperlipidemia Hypertriglyceridemia (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) Morbid obesity Hypertriglyceridemia Pure hyperglyceridemia documented in this encounter [facility]* Diagnosis Onset Date Resolution Status Admit Date BMI 50.0-59.9, adult acute November 27, 2024 9:51am Dietary counseling and surveillance acute November 27, 2024 9:51am Hypertension acute November 27, 025 9:51am Mixed hyperlipidemia acute November 27, 2024 9:51am Type 2 diabetes mellitus wit h hyperglycemia acute November 27, 2024 9:51am Wound of left foot acute November 082024 9:51am Wound of right foot acute November 27, 2024 9:51am [facility] Work Phone: Reason for referral (narrative)No reason for referral information availableSt. Elizabeth Hospital Work Phone: Summary Purpose Family History [...] Date refered by Dr feldman June 14 025 2:39pm 3 month f./u August 21, 2024 [...] right foot August 21, 2024 8:5 1am Chief Complaint Admit Date 3 month November 27, 2024 9:51 am Reason for Visit Admit Date BMI 50.0-59.9, adult November 27, 2024 9:5 1am Dietary counseling and surveillance November 27, 2024 9:51am Hypertension November 27, 2024 9:51 am Mixed hyperlipidemia November 27, 2024 9:5 1am Type 2 diabetes mellitus with hyperglyce konrad November 27, 2024 9:51am Wound of left foot November 27, 2024 9:51 am Wound of right foot November 27, 2024 9:51 am Additional Source Comments (unrecognized sect ion and content) No Status Records FoundNo Status Records FoundNo Status Records FoundNo Status Records Found INFORMATION SOURCE (unrecogn ized section and content) DATE CREATED AUTHOR 08/27/2021 [facility] dical Specialist DATE CREATED AUTHOR AUTHOR'S ORGANIZ ATION 10/17/2022 [facility] DATE CREATED AUTHOR AUTHOR'S ORGANIZ ATION 04/29/2024 [facility] y[facility] DATE CREATED AUTHOR AUTHOR'S ORGANIZ ATION 10/21/2024 [facility] dical Specialists EPIC REASON FOR VISIT [...] January 26, 2024 End: January 26, 2024 Telegraph Operator Relationship Specialty Start Date End Date Natalie Hernandez MD [address] [place] [address] PCP - General Family Medicine 09/15/22 Telegraph Operator Relationship Specialty Start Date End Date Natalie Hernandez MD [address] [place] [address] PCP - General Family Medicine 09/15/22 Team [...] October 19, 2023 End: October 19, 2023 Telegraph Operator Relationship Specialty Start Date End Date Natalie Hernandez MD [address] [place] [address] PCP - General Family Medicine 09/15/22 Blossom Cody NP [address] [facility] [place] [address] Nurse Practitioner Family Medicine 01/19/24 Telegraph Operator Relationship Specialty Start Date End Date Natalie Hernandez MD [address] [facility] [place] [address] PCP - General Family Medicine 09/15/22 Blossom Cody NP [address] [place] [address] Nurse Practitioner Family Medicine 01/19/24 Telegraph Operator Relationship Specialty Start Date End Date Natalie Hernandez MD [address] [facility] [place] [address] PCP - General Family Medicine 09/15/22 Blossom Cody BUNDLE COLLECTOR [address] [facility] [address] [place], [place] [address] Nurse Practitioner Family Medicine 01/19/24 Telegraph Operator Relationship Specialty Start Date End Date Natalie Hernandez MD [address] [facility] [place] [address] PCP - General Family Medicine 09/15/22 Blossom Cody NP [address] [place] [address] Nurse Practitioner Family Medicine 01/19/24 Telegraph Operator Relationship Specialty Start Date End Date Natalie Hernandez MD [address] [place] [address] PCP - General Family Medicine 09/15/22 Telegraph Operator Relationship Specialty Start Date End Date Natalie Hernandez MD [address] [place] [address] PCP - General Family Medicine 09/15/22 Telegraph Operator Relationship Specialty Start Date End Date Natalie Hernandez MD [address] [facility] [place] [address] PCP - General Family Medicine 09/15/22 Blossom Cody NP [address] [facility] [place] [address] Nurse Practitioner Family Medicine 01/19/24 Telegraph Operator Relationship Specialty Start Date End Date Natalie Hernandez MD [address] [facility] [place] [address] PCP - General Family Medicine 09/15/22 Blossom Cody NP [address] [facility] [place] [address] Nurse Practitioner Family Medicine 01/19/24 Telegraph Operator Relationship Specialty Start Date End Date Natalie Hernandez MD [address] [facility] [place] [address] PCP - General Family Medicine 09/15/22 Blossom Cody NP [address] [place] [address] Nurse Practitioner Family Medicine 01/19/24 Telegraph Operator Relationship Specialty Start Date End Date Natalie Hernandez MD PCP - General Family Medicine 09/15/22 Blossom Cody NP Nurse Practitioner Family Medicine 01/19/24 Telegraph Operator Relationship Specialty Start Date End Date ShelbyNatalie MD PCP - General Family Medicine 09/15/22 Blossom Cody NP Nurse Practitioner [facility] 01/19/24 Team Status: Active Member Role Status Dates SERG Torres Primary Care Provider Active Team Status: Inactive Member Role Status Dates Link Ortega APRN Attending Provider Active Start: November 27, 2024 End: November 27, 2024 SERG Torres Primary Care Provider Active Start: November 27, 2024 End: November 27, 2024 Goals (unrecognized section and content) Goals [...] BE BASED ON THE PRIMARY CLINICAL RECORDS. [employer] provides no warranty or guarantee of the accuracy or completeness of information in this document.
== END 2025-01-03 10:41 | disposition home or self-care (01) ==
LOC: WC 10:40
PROVIDERS: PCP Family Medicine; Visit Provider Physician Assistant
DX: L84 Corns and callosities (principal); E11.65 Type 2 diabetes mellitus with hyperglycemia
CPT/HCPCS: G0463

== ENCOUNTER 2025-01-24 10:18 | Outpatient (OUT) | payer OTHER, SELFPAY ==
--- OUTSIDE RECORDS SUMMARY | 2025-01-24 10:31 | XMS_ITS | CCD ---
Author Organization [facility] Care Team Providers Care Engine Cleaner Name Role Phone Link Ortega Unavailable NATANAEL FELDMAN Attending Unavailable NATNAAEL FELDMAN Admitting Unavailable WONDERLY, DR NATALIE Lozada [...] NATANAEL Marks Attending Unavailable WONDERLY, DR NATALIE Loazda Primary Care Unavailable HIGHLANDER, NATANAEL Marks Attending [...] HIGHLANDER, PETER Selina Admitting Unavailable HIGHLANDER, NATANAEL Marks Attending Unavailable [...] Unavailable HIGHLANDER, NATANAEL Marks Admitting Unavailable Natalie eHrnandez MD Primary Care Provider MD Damon Claros Attending Provider MD Natalie Hernandez [facility] Care Provider Natalie Hernandez MD Primary Care Provider Blossom Cody NP Unavailable [phone] Natalie Hernandez Primary Care Unavailable Francia, aNtanael Marks Admitting Unavailable Francia, Natanael Marks Attending Unavailable Shelby, [facility] Care Unavailable Damon Claros Admitting Unavailable Damon Claros Attending Unavailable Natalie Hernandez MD [facility] Care Provider Natanael Feldman DPM Attending Provider Natalie Hernandez MD Primary Care Provider Blossom Cody NP Unavailable BLOSSOM CODY Attending Unavailable APRYL GRANADOS Attending Unavailable MIRLANDE MOORE Attending Unavailable BLOSSOM OCDY Attending Unavailable BLOSSOM CODY Attending Unavailable Link Ortega APRN Attending Provider Sharif DATAPOWER CONSULTANT-CApryl Primary Care Provider Medications Current Medications Medication [...] sources) Long-term current use of insulin; Translations: [[facility] (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] 06-17-2023 Episodic Other aftercare (4 sources) [facility] (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 Onset: 01-06-2022 Resolved: 08-30-2022 Episodic Other aftercare (2 sources) Drug therapy finding; Translations: [[facility] (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 antibiotics] 06-14-2024 Episodic Other aftercare (1 source) [facility] (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 antibiotics; Translations: [Long-term (current) [...] Results Test Name Value Interpretation Reference Range [facility] 04-26-2024 L Specimen: [id number] Received: 04/26/24 Status: CALEB Gabriel Num: [id number] Spec Type: Surgical Subm Dr: Natanael Feldman DPM, Tissues: A Skin-Other than Cyst, tag, debridement or plastic repair (RT FOOT ULCER) Procedures: Yenny SCOTT/Mary L4 Age/ Patient Sex Location Account Attending Physician Trev Ontiveros 43/M LABELL [id number] Natanael Feldman DPM, MS SPEC NUM: [id number] RECD: 04/26/24 STATUS: CALEB GABRIEL NUM: [id number] MARTHA: 04/26/[address]: Natanael Feldman DPM, MS ENTERED: 04/26/[address]: [place],Lab SPEC TYPE: Surgical DEPT: DERRICK PLUNKETT ENTERED BY: [id number] RECV BY: [id number] ORDERED: TYLER Gross/Micro L4 ORDERED: TYLER Gross/Micro [...] reveal purple-brown to green, softened cut surfaces. Health Advisor sections are submitted in a single cassette. (1, ss, [id number] A) CPT Codes 05056 Specimen: [id number] Received: 04/26/24 Status: CALEB Gabriel Num: [id number] Spec Type: Surgical Subm Dr: Natanael Feldman,DPM, MS Tissues: A Skin-Other than Cyst, tag, debridement or plastic repair (RT FOOT ULCER) Procedures: Yenny SCOTT/Mary L4 Patient: Trev Ontiveros [id number] (Continued) Signed (signature on file) Melanie Roca MD 04/27/24 [id number] Normal [facility] A1C HEMOGLOBINon 06-09-2023 HbA1c (Bld) [Mass fraction] 8.2 % [employer] Other Glucose - FINGER STICKon Glucose [Mass/Vol] 170 mg/dL [employer] Other HbA1c (Bld) [Mass fraction]o n 06-09-2023 A1C HEMOGLOBIN [employer] Other A1C HEMOGLOBINon 01-04-2023 HbA1c (Bld) [Mass fraction] 8.9 % [employer] Other Glucose - FINGER STICKon Glucose [Mass/Vol] 201 mg/dL [employer] Other HbA1c (Bld) [Mass fraction]o n 01-04-2023 A1C HEMOGLOBIN [employer] Other PROF CHEM 8 (BAS METB)on Anion gap [Moles/Vol] 14.3 mmol/L Normal [facility] Comment on above: Performed By: #### B #### [facility] [address] [place] [address] Dr. Lauri Todd Calcium [Mass/Vol] 9.4 mg/dL Normal 8.5-10.1 [facility] Comment on above: Performed By: #### B MP #### [facility] [address] [address] [address] Lauri Todd Chloride [Moles/Vol] 101 mmol/L Normal 98-107 [facility] Comment on above: Performed By: #### B MP #### [facility] [address] [address] [address] Lauri Todd CO2 [Moles/Vol] 26.2 mmol/L Normal 21.0-32.0 [facility] Comment on above: Performed By: #### B MP #### [facility] [address] [address] [address] Lauri Todd Creatinine [Mass/Vol] 0.90 mg/dL Normal 0.70-1.30 [facility] Comment on above: Performed By: #### B MP #### [facility] [address] [place] [address] Dr. Lauri Todd EGFR-AF BELARUSIAN >60 Normal >=60 [facility] Comment on above: Performed By: #### B MP #### [facility] [address] [address] [address] Lauri Todd EGFR-NON AF BELARUSIAN >60 Normal >=60 [facility] Comment on above: Performed By: #### B MP #### [facility] [address] [place] [address] Dr. Lauri Todd Glucose [Mass/Vol] 146 mg/dL Critically high 74-106 [facility] Comment on above: Performed By: #### B MP #### [facility] [address] [place] [address] Dr. Lauri Todd Potassium [Moles/Vol] 4.5 mmol/L Normal 3.5-5.1 [facility] Comment on above: Performed By: #### B MP #### [facility] [address] [place] [address] Dr. Lauri Todd Sodium [Moles/Vol] 137 mmol/L Normal 136-145 [facility] Comment on above: Performed By: #### B MP #### [facility] [address] [place] [address] Dr. Lauri Todd Urea nitrogen [Mass/Vol] 16.0 mg/dL Normal 7.0-18.0 [facility] Comment on above: Performed By: #### B MP #### [facility] [address] [address] [address] Lauri Todd Urea nitrogen/Creatinin e [Mass ratio] 17.8 mg/mg Normal [facility] Comment on above: Performed By: #### B MP #### [facility] [address] [address] [address] Lauri Todd A1C HEMOGLOBINon 06-25-2022 HbA1c (Bld) [Mass fraction] 8.2 % [employer] Other Glucose - FINGER STICKon Glucose [Mass/Vol] 180 mg/dL [employer] Other HbA1c (Bld) [Mass fraction]o n 06-25-2022 [facility] [place] Other XR FOOT LT MIN 3 VIEWSon [...] by: RAFAEL WHITAKER Date: 2022-05-25 11:52 Normal [facility] A1C HEMOGLOBINon 01-06-2022 HbA1c (Bld) [Mass fraction] 7 % [employer] Other Glucose - FINGER STICKon Glucose [Mass/Vol] 148 mg/dL [facility] [employer] Other HbA1c (Bld) [Mass fraction]o n 01-06-2022 A1C HEMOGLOBIN [facility] [employer] Other Basic Metabolic Panel 08-08 Anion gap [Moles/Vol] 20 mmol/L Normal 12-20 [facility] [employer] Custodian Comment on above: Result Comment: Effe ctive 05/15/2019 reference range changed. Performed By: #### B MP #### [facility] [address] [place], [place] [id number] Calcium [Mass/Vol] 10.0 mg/dL Normal 8.6-10.2 [employer] [employer] [employer] Cust[employer] Comment on above: Performed By: #### B MP #### [facility] [address] [place], [place] [id number] Chloride [Moles/Vol] 100 mmol/L Normal 98-107 [facility] [employer] Custodian Comment on above: Performed By: #### B MP #### [facility] [address] [place], [place] [id number] CO2 [Moles/Vol] 22 mmol/L Normal 20-31 [facility] [employer] Custodian Comment on above: Performed By: #### B MP #### [facility] [address] [place], [place] [id number] Creatinine [Mass/Vol] 0.8 mg/dL Normal 0.7-1.4 [facility] Specialist Comment on above: Performed By: #### B MP #### [facility] [address] [place], [place] [id number] eGFRAA 129 mL/min/1.73m2 Normal >60 [facility] Specialist Comment on above: Performed By: #### B MP #### [facility] [address] [place] [id number] eGFRNAA 107 mL/min/1.73m2 Normal >60 [facility] Specialist Comment on above: Performed By: #### B MP #### [facility] [address] [place], [place] [id number] Glucose [Mass/Vol] 140 mg/dL High 65-99 [employer] Custodian Comment on above: Result Comment: For FASTING Glucose --- ADA reference ranges: Normal 65-99 mg/dl Prediabetes 100-125 Diabetes >/= 126 Performed By: #### B MP #### [facility] [address] [place], [place] [id number] Potassium [Moles/Vol] 4.3 mmol/L Normal 3.5-5.5 [facility] Comment on above: Performed By: #### B MP #### [facility] [address] [place], [place] [id number] Sodium [Moles/Vol] 137 mmol/L Normal 135-146 [facility] Comment on above: Performed By: #### B MP #### [facility] [address] [place], [place] [id number] Urea nitrogen [Mass/Vol] 17 mg/dL Normal 7-25 [facility] Specialist Comment on above: Performed By: #### B MP #### [facility] [address] [place], [place] [id number] Vital Signs Date Time Vital Sign Value Performing Clinician Facility 11-27-2024 10:07040 Body height 182.88 cm Apryl RUTLEDGEC Work Phone: [facility] 11-27-2024 10:07040 Body mass index (BMI) [Ratio] 51.5 kg/m2 Apryl Granados NP-C Work Phone: [facility] 11-27-2024 10:07040 Body weight 172.5 kg Apryl RUTLEDGEC Work Phone: [facility] 11-27-2024 10:07-0400 Diastolic blood pressure 74 mm[Hg] Apryl Granados NP-C Work Phone: [facility] 11-27-2024 10:070400 Heart rate 81 /min Apryl Granados NP-C Work Phone: [facility] 11-27-2024 10:07-0400 Respiratory rate 18 /min Apryl Granados NP-C Work Phone: [facility] 11-27-2024 10:07-0400 SaO2% (BldA) [Mass fraction] 96 % Apryl Granados DATAPOWER CONSULTANT-C Work Phone: [facility] 11-27-2024 10:07-0400 Systolic blood pressure 143 mm[Hg] Apryl Granados DATAPOWER CONSULTANT-C Work Phone: [facility] 10-19-2024 09:51-0400 Body mass index (BMI) [Ratio] 51.08 kg/m2 Apryl Granados DATAPOWER CONSULTANT Work Phone: [facility] 10-19-2024 09:51-0400 Body weight 168.47 kg Apryl Granados DATAPOWER CONSULTANT Work Phone: [facility] 10-19-2024 09:51-0400 Diastolic blood pressure 86 mm[Hg] Apryl Granados DATAPOWER CONSULTANT Work Phone: [facility] 10-19-2024 09:51-0400 Heart rate 76 /min Apryl Granados DATAPOWER CONSULTANT Work Phone: [facility] 10-19-2024 09:51-0400 Systolic blood pressure 130 mm[Hg] Apryl Granados DATAPOWER CONSULTANT Work Phone: [facility] 08-21-2024 09:08-0400 Diastolic blood pressure 74 mm[Hg] [facility] 08-21-2024 09:08-0400 Systolic blood pressure 129 mm[Hg] [facility] 08-21-2024 09:07-0400 Body height 182.88 cm [facility] 08-21-2024 09:07-0400 Body mass index (BMI) [Ratio] 50.5 kg/m2 [facility] 08-21-2024 09:07-0400 Body weight 169 kg [facility] 08-21-2024 09:07-0400 Heart rate 87 /min [facility] 08-21-2024 09:07-0400 Respiratory rate 18 /min [facility] 08-21-2024 09:07-0400 SaO2% (BldA) [Mass fraction] 97 % [facility] 07-19-2024 09:57-0400 Diastolic blood pressure 80 mm[Hg] Blossom Cody DATAPOWER CONSULTANT Work Phone: [facility] 07-19-2024 09:57-0400 Systolic blood pressure 138 mm[Hg] Blossom Cody DATAPOWER CONSULTANT Work Phone: [facility] 07-19-2024 09:22-0400 Body mass index (BMI) [Ratio] 50.03 kg/m2 Blossomdidier Cody DATAPOWER CONSULTANT Work Phone: [facility] 07-19-2024 09:22-0400 Body weight 165.02 kg Blossomdidier Cody DATAPOWER CONSULTANT Work Phone: [facility] 07-19-2024 09:22-0400 Heart rate 80 /min Blossom Cody DATAPOWER CONSULTANT Work Phone: [facility] 06-14-2024 14:55-0500 Body height 182.88 cm Natalie Hernandez MD Work Phone: [facility] 06-14-2024 14:55-0500 Body mass index (BMI) [Ratio] 48.8 kg/m2 Natalie Hernandez MD Work Phone: [facility] 06-14-2024 14:55-0500 Body temperature 98.1 [degF] Natalie Hernandez MD Work Phone: [facility] 06-14-2024 14:55-0500 Body weight 163.29 kg Natalie Hernandez MD Work Phone: [facility] 06-14-2024 14:55-0500 Diastolic blood pressure 75 mm[Hg] Natalie Hernandez MD Work Phone: [facility] 06-14-2024 14:55-0500 Heart rate 104 /min Natalie Hernandez MD Work Phone: [facility] 06-14-2024 14:55-0500 Systolic blood pressure 124 mm[Hg] Natalie Hernandez MD Work Phone: [facility] 04-19-2024 09:47-0500 Body mass index (BMI) [Ratio] 52.21 kg/m2 Blossom Glo DATAPOWER CONSULTANT Work Phone: [facility] 04-19-2024 09:47-0500 Body weight 172.19 kg Blossom Glo DATAPOWER CONSULTANT Work Phone: [facility] 04-19-2024 09:47-0500 Diastolic blood pressure 72 mm[Hg] Blossom Cody DATAPOWER CONSULTANT Work Phone: [facility] 04-19-2024 09:47-0500 Heart rate 84 /min Blossom Glo DATAPOWER CONSULTANT Work Phone: [facility] 04-19-2024 09:47-0500 Systolic blood pressure 128 mm[Hg] Blossom Lozoyael DATAPOWER CONSULTANT Work Phone: [facility] 01-26-2024 09:59-0400 Body height 182.88 cm [facility] 01-26-2024 09:59-0400 Body mass index (BMI) [Ratio] 51.2 kg/m2 [facility] 01-26-2024 09:59-0400 Body weight 171.54 kg [facility] 01-26-2024 09:59-0400 Diastolic blood pressure 83 mm[Hg] [facility] 01-26-2024 09:59-0400 Heart rate 81 /min [facility] 01-26-2024 09:59-0400 Respiratory rate 18 /min [facility] 01-26-2024 09:59-0400 SaO2% (BldA) [Mass fraction] 94 % [facility] 01-26-2024 09:59-0400 Systolic blood pressure 155 mm[Hg] [facility] 01-19-2024 11:00-0400 Body mass index (BMI) [Ratio] 51.82 kg/m2 Blossom Glo DATAPOWER CONSULTANT Work Phone: [facility] 01-19-2024 11:00-0400 Body weight 170.91 kg Blossom Glo DATAPOWER CONSULTANT Work Phone: [facility] 01-19-2024 11:00-0400 Diastolic blood pressure 78 mm[Hg] Blossom Cody DATAPOWER CONSULTANT Work Phone: [facility] 01-19-2024 11:00-0400 Heart rate 84 /min Blossomdidier Lozoyael DATAPOWER CONSULTANT Work Phone: [facility] 01-19-2024 11:00-0400 Systolic blood pressure 136 mm[Hg] Blossom Lozoyael DATAPOWER CONSULTANT Work Phone: [facility] 10-19-2023 11:31-0400 Body height 182.88 cm [facility] 10-19-2023 11:31-0400 Body mass index (BMI) [Ratio] 51.7 kg/m2 [facility] 10-19-2023 11:31-0400 Body weight 172.87 kg [facility] 10-19-2023 11:31-0400 Diastolic blood pressure 83 mm[Hg] [facility] 10-19-2023 11:31-0400 Heart rate 74 /min [facility] 10-19-2023 11:31-0400 Respiratory rate 18 /min [facility] 10-19-2023 11:31-0400 SaO2% (BldA) [Mass fraction] 97 % [facility] 10-19-2023 11:31-0400 Systolic blood pressure 149 mm[Hg] [facility] 06-16-2023 11:33-0500 Diastolic blood pressure 84 mm[Hg] Blossom Lozoyael DATAPOWER CONSULTANT Work Phone: [facility] 06-16-2023 11:33-0500 Systolic blood pressure 154 mm[Hg] Blossmo Lozoyael DATAPOWER CONSULTANT Work Phone: [facility] 06-16-2023 11:02-0500 Body mass index (BMI) [Ratio] 52.12 kg/m2 Blossom Glo DATAPOWER CONSULTANT Work Phone: [facility] 06-16-2023 11:02-0500 Body weight 171.91 kg Blossom Lozoyael DATAPOWER CONSULTANT Work Phone: [facility] 06-16-2023 11:02-0500 Heart rate 92 /min Blossom Glo DATAPOWER CONSULTANT Work Phone: [facility] 06-09-2023 08:45-0500 Body height Tondra Mapus Other [employer] Other 06-09-2023 08:45-0500 Body height 182.88 cm MD Natalie Hernandez Work Phone: [facility] 06-09-2023 08:45-0500 Body mass index (BMI) [Ratio] 51.33 kg/m2 Tondra Mapus Other [facility] [employer] Other 06-09-2023 08:45-0500 Body weight 171.69 kg Tondra Mapus Other [facility] [employer] Other 06-09-2023 08:45-0500 Body weight 171.68 kg MD Natalie Hernandez Work Phone: [facility] 06-09-2023 08:45-0500 Diastolic blood pressure 80 mm[Hg] Tondra Mapus Other [facility] 06-09-2023 08:45-0500 Respiratory rate 18 /min Tondra Mapus Other [employer] Other 06-09-2023 08:45-0500 SaO2% (BldA) [Mass fraction] 94 % Tondra Mapus Other [facility] [employer] Other 06-09-2023 08:45-0500 Systolic blood pressure 148 mm[Hg] Tondra Mapus Other [facility] 01-04-2023 08:45-0400 Body height Tondra Mapus Other [employer] Other 01-04-2023 08:45-0400 Body mass index (BMI) [Ratio] 51.37 kg/m2 Tondra Mapus Other [employer] Other 01-04-2023 08:45-0400 Body weight 171.82 kg Tondra Mapus Other [employer] Other 01-04-2023 08:45-0400 Diastolic blood pressure 85 mm[Hg] Tondra Mapus Other [employer] Other 01-04-2023 08:45-0400 Respiratory rate 18 /min Tondra Mapus Other [employer] Other 01-04-2023 08:45-0400 SaO2% (BldA) [Mass fraction] 98 % Tondra Mapus Other [employer] Other 01-04-2023 08:45-0400 Systolic blood pressure 150 mm[Hg] Tondra Mapus Other [employer] Other 06-25-2022 09:45-0500 Body height Tondra Mapus Other [employer] Other 06-25-2022 09:45-0500 Body mass index (BMI) [Ratio] 51.14 kg/m2 Tondra Mapus Other [employer] Other 06-25-2022 09:45-0500 Body weight 171.05 kg Tondra Mapus Other [employer] Other 06-25-2022 09:45-0500 Diastolic blood pressure 80 mm[Hg] Tondra Mapus Other [employer] Other 06-25-2022 09:45-0500 Respiratory rate 18 /min Tondra Mapus Other [employer] Other 06-25-2022 09:45-0500 SaO2% (BldA) [Mass fraction] 95 % Tondra Mapus Other [employer] Other 06-25-2022 09:45-0500 Systolic blood pressure 139 mm[Hg] Tondra Mapus Other [employer] Other 01-06-2022 09:45-0400 Body height Tondra Mapus Other [employer] Other 01-06-2022 09:45-0400 Body mass index (BMI) [Ratio] 48.28 kg/m2 Tondra Mapus Other [employer] Other 01-06-2022 09:45-0400 Body weight 161.48 kg Tondra Mapus Other [employer] Other 01-06-2022 09:45-0400 Diastolic blood pressure 71 mm[Hg] Tondra Mapus Other [employer] Other 01-06-2022 09:45-0400 Respiratory rate 20 /min Tondra Mapus Other [employer] Other 01-06-2022 09:45-0400 SaO2% (BldA) [Mass fraction] 95 % Tondra Mapus Other [employer] Other 01-06-2022 09:45-0400 Systolic blood pressure 124 mm[Hg] Tondra Mapus Other [employer] Other Encounters Encounter Date Encounter Type Care Provider Facility Start: 11-27-2024 End: 11-27-2024 ambulatory Apryl Granados DATAPOWER CONSULTANT-C Work Phone: [facility] Work Phone: Start: 11-27-2024 End: 11-27-2024 Patient encounter procedure Link Ortega REHAB TECH-C -[facility] Work Phone: Start: 10-19-2024 End: 10-19-2024 Bamboo flowsheet Apryl Granados DATAPOWER CONSULTANT Work Phone: [facility] Start: 10-19-2024 End: 10-19-2024 Bamboo flowsheet Apryl Granados DATAPOWER CONSULTANT Work Phone: [facility] Start: 10-19-2024 [...] Not Available Start: 08-21-2024 End: 08-21-2024 ambulatory [facility] Work Phone: Start: 08-21-2024 End: 08-21-2024 Patient encounter procedure [facility] Work Phone: Start: 07-19-2024 End: 07-19-2024 Office outpatient visit 25 minutes Blossom Cody DATAPOWER CONSULTANT Work Phone: [facility] Comment on above: Diabetic polyneuropa thy associated with type 2 diabetes mellitus (CMS/HCC) (Primary Dx); 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); Ulcer of right foot, unspecified ulcer stage (HCC) ([facility]); Poorly controlled diabetes mellitus ([facility]); Dyslipidemia ([facility]); Hypertriglyceridemia ([facility]); Essential hypertension; Morbid obesity ([facility]); Amputation of toe, traumatic, left, sequela ([facility]); Vitamin B 12 deficiency; Depressed mood; Insomnia, unspecified type Start: 07-19-2024 End: 07-19-2024 ambulatory BLOSSOM CODY Not Available Start: 06-14-2024 End: 06-14-2024 ambulatory Natalie Hernandez MD Work Phone: [facility] Work Phone: Start: 06-14-2024 End: 06-14-2024 Patient encounter procedure Natalie Hernandez MD Work Phone: [facility] Work Phone: Start: 05-30-2024 Non-patient / Non-visit [facility] Work Phone: Start: 05-30-2024 End: 06-01-2024 [...] Start: 04-26-2024 End: 04-26-2024 ambulatory Natalie Hernandez Facility:[facility] Start: 04-26-2024 End: 04-26-2024 Departed Referred Natalie Hernandez MD Work Phone: [facility] Start: 04-25-2024 End: 04-27-2024 Clinisync Result Encounter Generic External Data Provider [facility] External Department Unsolicited Start: 04-25-2024 End: 04-27-2024 Clinisync Result Encounter Generic External Data Provider [facility] External Department Unsolicited Start: 04-19-2024 End: 04-19-2024 Bamboo flowsheet Blossom Cody DATAPOWER CONSULTANT Work Phone: [facility] Start: 04-19-2024 End: 04-19-2024 Bamboo flowsheet Blossom Cody DATAPOWER CONSULTANT Work Phone: [facility] Start: 04-19-2024 End: 04-19-2024 Patient encounter status Blossom Cody DATAPOWER CONSULTANT Work Phone: [facility] Start: 04-19-2024 End: 04-19-2024 Periodic preventive med est patient 40-64yrs Blossom Cody DATAPOWER CONSULTANT Work Phone: [facility] Comment on above: Diabetic polyneuropa thy associated with type 2 diabetes mellitus (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); Dyslipidemia (CMS/HCC); Hypertriglyceridemia (CMS/HCC); Poorly controlled diabetes [...] Comment on above: Pure hyperglyceridem ia ([facility]/HCC) Start: 01-26-2024 End: 01-26-2024 ambulatory [facility] Work Phone: Start: 01-26-2024 End: 01-26-2024 Patient encounter procedure [facility] Work Phone: Start: 01-20-2024 Non-patient / Non-visit [facility] Work Phone: Start: 01-19-2024 End: 01-19-2024 Bamboo flowsheet Blossom Cody DATAPOWER CONSULTANT Work Phone: [facility] Start: 01-19-2024 End: 01-19-2024 Bamboo flowsheet Blossom Cody DATAPOWER CONSULTANT Work Phone: [facility] Start: 01-19-2024 End: 01-19-2024 Office outpatient visit 25 minutes Blossom Cody DATAPOWER CONSULTANT Work Phone: [facility] Comment on above: Diabetic polyneuropa thy associated with type 2 diabetes mellitus ([facility]/HCC) (Primary Dx); Type 2 diabetes mellitus with neurological manifestation ([facility]); Essential hypertension; 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, subsequent encounter ([facility]); Type 2 diabetes mellitus with hyperglycemia, with long-term current use of insulin ([facility]); Dyslipidemia ([facility]); Hypertriglyceridemia ([facility]); Amputation of toe, traumatic, left, sequela ([facility]); Vitamin B 12 deficiency; Pure hyperglyceridemia ([facility]/HCC) Start: 01-19-2024 End: 01-19-2024 ambulatory BLOSSOM CODY Not Available Start: 12-30-2023 End: 12-30-2023 Refill Natalie Hernandez MD Work Phone: [facility] Comment on above: Essential hypertensi on Start: 10-29-2023 End: 10-29-2023 ambulatory MIRLANDE MOORE Not Available Start: 10-19-2023 End: 10-19-2023 ambulatory [facility] Work Phone: Start: 10-19-2023 End: 10-19-2023 Patient encounter procedure [facility] Work Phone: Start: 06-16-2023 Bamboo flowsheet Blossom cabrales NP Work Phone: [facility] Start: 06-16-2023 Bamboo flowsheet Blossom cabrales [employer] Work Phone: [facility] Start: 06-16-2023 [...] with long-term current use of insulin ([facility]); Body mass index [BMI] 50.0-59.9, adult (Z68.43); Type 2 diabetes mellitus with foot ulcer, with long-term current use of insulin (CMS/HCC); 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.49); Status post amputation of lesser toe, unspecified laterality (CMS/HCC); Arthritis of left foot; Acquired hallux valgus of left foot; Type 2 diabetes mellitus with hyperglycemia, with long-term current use of insulin ([facility]); Morbid obesity ([facility]/HCC) Start: 06-15-2023 End: 06-15-2023 ambulatory Tondra Mapus Other [employer] Other Start: 06-15-2023 Telephone encounter Tondra Mapus [facility] Start: 06-09-2023 (DM) Diabetes Tondra Mapus [facility] Start: 06-09-2023 End: 06-09-2023 Discharged Recurring MD Natalie Hernandez [facility] Work Phone: Start: 06-09-2023 End: 06-09-2023 ambulatory MD Natalie Hernandez Work Phone: [employer] Other Start: 06-09-2023 End: 06-09-2023 Patient encounter procedure MD Natalie Hernandez Work Phone: [facility]- Start: 01-04-2023 (DM) Diabetes Tondra Dayannaus [facility] Start: 01-04-2023 End: 01-04-2023 ambulatory Tondra Mapus Other [employer] Other Start: 12-21-2022 End: 12-21-2022 ambulatory Tondra Mapus Other [employer] Other Start: 12-21-2022 Telephone encounter Tondra Dayannaus [facility] Start: 10-12-2022 ambulatory NATANAEL FELDMAN Faci lity:H1 Start: 10-06-2022 End: 10-07-2022 ambulatory NATANAEL FELDMAN Facility:H1 Start: 10-01-2022 Encounter for prepro cedural cardiovascular examination [facility] Selina [facility] Start: 10-01-2022 Encounter for prepro cedural laboratory examination [facility] Selina [facility] Start: 09-30-2022 End: 10-01-2022 ambulatory NATANAEL Selina [facility] Facility:H1 Start: 09-30-2022 End: 10-01-2022 Encounter for preprocedural laboratory examination NATANAEL Marks [facility] Facility:H1 Start: 09-15-2022 End: 09-16-2022 ambulatory NATANAEL Selina [facility] Facility:H1 Start: 09-10-2022 End: 09-10-2022 ambulatory Tondra Mapus Other [employer] Other Start: 09-10-2022 Telephone encounter Tondra Mapus [facility] Start: 08-24-2022 End: 08-25-2022 ambulatory NATANAEL Marks [facility] Facility:H1 Start: 08-10-2022 End: 08-10-2022 ambulatory Tondra Mapus Other [employer] Other Start: 08-10-2022 Telephone encounter Tondra Mapus [facility] Start: 08-03-2022 End: 08-04-[address] NATALIE HERNANDEZ Facility:H1 Start: 07-13-2022 End: 07-14-2022 ambulatory MARTELL NAVAS Facility:H1 Start: 06-30-2022 End: 07-01-2022 ambulatory NATANAEL Marks [facility] Facility:H1 Start: 06-25-2022 (DM) Diabetes Tondra Mapus [facility] Start: 06-25-2022 End: 06-25-2022 ambulatory Tondra Mapus Other [employer] Other Start: 06-16-2022 End: 06-17-2022 ambulatory [facility]EL [facility] Start: 06-08-2022 End: 06-09-2022 ambulatory NATANAEL Selina [facility] Facility:H1 Start: 05-25-2022 End: 05-26-2022 ambulatory NATANAEL Marks [facility] Facility:H1 Start: 05-12-2022 End: 05-13-2022 ambulatory NATANAEL Marks [facility] Facility:H1 Start: 04-30-2022 End: 05-01-2022 ambulatory NATANAEL [...] 02-18-2022 End: 02-18-2022 ambulatory Tondra Mapus Other [employer] Other Start: 02-18-2022 Telephone encounter Tondra Shannon [facility] Start: 02-09-2022 End: 02-10-2022 ambulatory NATANAEL Selina HIGHLANDER Facility:H1 Start: 01-26-2022 End: 01-27-2022 ambulatory NATANAEL FELDMAN Facility:H1 Start: 01-13-2022 End: 01-14-2022 ambulatory NATANAEL FELDMAN Facility:H1 Start: 01-06-2022 (DM) Diabetes Tondra Shannon [facility] Start: 01-06-2022 End: 01-06-2022 ambulatory Tondra Mapus Other [employer] Other Start: 12-29-2021 End: 12-30-2021 ambulatory NATANAEL [...] amputation of lesser toe, unspecified laterality ([facility]) Blossom Cody [employer] Work Phone: Plan of Treatment Date Care Activity Detail Author Start: 07-26-2025 Glaucoma screening Diabetes: Retinopathy Screening [facility] Start: 01-31-2025 End: 01-31-2025 Patient encounter procedure 01/31/2025 9:30 AM EDT Office Visit [facility] [address] [place] [phone] Apryl Granados NP [address] [place] [address] [facility] Start: 10-19-2024 End: 10-19-2024 Patient encounter procedure [facility] Comment on above: Arrived Start: 07-19-2024 End: 07-19-2024 Patient encounter procedure 07/19/2024 9:30 AM EDT Office Visit [facility] [address] [place] [address] Blossom Cody NP [address] [place], [place] [id number] [facility] Start: 04-26-2024 Hemoglobin A1c measurement Diabetes: Hemoglobin A1C [facility] Start: 04-19-2024 End: 04-19-2024 Patient encounter procedure [facility] Comment on above: Diabetic polyneuropathy associated with type 2 diabetes mellitus ([facility]) (Primary Dx); Wellness examination; Type 2 diabetes mellitus with neurological manifestation (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); Dyslipidemia (CMS/HCC); Hypertriglyceridemia (CMS/HCC); Poorly controlled diabetes mellitus ([facility]); Type 2 diabetes mellitus with hyperglycemia, with long-term current use of insulin ([facility]); Amputation of toe, traumatic, left, sequela ([facility]) Start: 03-24-2024 Urine screening for protein Diabetes: Urine Protein Screening [facility] Start: 03-15-2024 Influenza vaccination Influenza Vaccine (#1) [facility] Comment on above: Postponed from 01/09/2024 (Patient Refus ed) Start: 01-25-2024 End: 01-25-2024 Patient encounter procedure 01/25/2024 10:30 AM EDT Office Visit [facility] [address] [place] [phone] Blossom Cody NP [address] [place] [address] [facility] Start: 01-19-2024 Hemoglobin A1c measurement Diabetes: Hemoglobin A1C [facility] Start: 01-19-2024 End: 01-19-2024 Patient encounter procedure 01/19/2024 11:00 AM EDT [facility] [address] [place] [phone] Blossom Cody NP [address] [place] [address] Diabetic polyneuropathy associated with type 2 diabetes mellitus (CMS/HCC) (Primary Dx); 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); Essential hypertension; 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, subsequent encounter (CMS/HCC); Type 2 diabetes mellitus with hyperglycemia, with long-term current use of insulin (CMS/HCC); Dyslipidemia (CMS/HCC); Hypertriglyceridemia (CMS/HCC); Amputation of toe, traumatic, left, sequela (CMS/HCC); Vitamin B 12 deficiency [facility] Comment on above: Diabetic polyneuropathy [...] Start: 01-09-2024 Influenza vaccination Influenza Vaccine (#1) [facility] Start: 09-15-2023 End: 09-15-2023 Patient encounter procedure 09/15/2023 9:30 AM EDT Office Visit [facility] [address] [place] [phone] Blossom Cody NP [address] [place] [address] [facility] Start: 09-07-2023 Hemoglobin A1c measurement Diabetes: Hemoglobin A1C [facility] Start: 07-26-2023 Glaucoma screening Diabetes: Retinopathy Screening [facility] Start: 07-07-2023 End: 07-07-2023 Patient encounter procedure 07/07/2023 9:00 AM EST Office Visit [facility] [address] [place] [address] [facility] Start: 06-16-2023 End: 06-16-2023 Patient encounter procedure 06/16/2023 11:00 AM EST Office Visit [facility] [address] [place] [address] Blossom Cody NP [address] [place] [address] Diabetic polyneuropathy associated with type [...] disorder (CMS/HCC); Morbid obesity (CMS/HCC); Hypertriglyceridemia (CMS/HCC) [facility] Comment on above: Diabetic polyneuropathy [...] 1980 Screening for malignant neoplasm of colon [facility] AEROBIC CULTURE AEROBIC CULTURE Lab Routine 05/26/2024 6:16 PM EST [facility] BLOOD CULTURE 1 BLOOD CULTURE 1 Lab Routine 04/27/2024 6:10 AM EST [facility] BLOOD CULTURE 2 BLOOD CULTURE 2 Lab Routine 04/25/2024 1:00 PM [facility] BLOOD CULTURE 2 BLOOD CULTURE 2 Lab Routine 04/27/2024 6:24 AM EST [facility] BLOOD CULTURE 2 BLOOD CULTURE 2 Lab Routine 05/30/2024 12:28 PM EST [facility] Comprehensive metabo lic 1999 panel - Serum or Plasma [facility] Comprehensive metabo lic 1999 panel - Serum or Plasma [facility] Patient Education Diabetes and diet [facility] Work Phone: [facility] Immunizations Immunization Date Immunization Notes Care Provider [facility] 03-14-2024 influenza, seasonal, injectable, preservative free Blossom Cody [employer] Work Phone: [facility] 03-14-2024 influenza virus vacc ine, unspecified formulation Blossom Cody [employer] Work Phone: [facility] 07-05-2023 tetanus and diphther ia toxoids, adsorbed, preservative free, for adult use (2 Lf of tetanus toxoid and 2 Lf of diphtheria toxoid) Natalie Hernandez MD Work Phone: [facility] 03-24-2023 influenza, injectabl e, quadrivalent, preservative free Blossom Cody [employer] Work Phone: [facility] 03-24-2023 influenza virus vacc ine, unspecified formulation Natalie Hernandez MD Work Phone: [facility] 08-26-2021 tetanus and diphther ia toxoids, adsorbed, preservative free, for adult use (5 Lf of tetanus toxoid and 2 Lf of diphtheria toxoid) Blossom Cody [employer] Work Phone: [facility] 03-28-2021 influenza, injectabl e, quadrivalent, preservative free Blossom Cody [employer] Work Phone: [facility] 02-13-2020 Influenza, injectabl e, Madin Grafton Canine Kidney, preservative free, quadrivalent Blossom Glo [employer] Work Phone: [facility] 02-22-2019 influenza, injectabl e, quadrivalent, preservative free Blossomdidier Lozoyael [employer] Work Phone: [facility] 02-07-2018 influenza, injectabl e, quadrivalent, preservative free Blossomdidier Cody [employer] Work Phone: [facility] Healthcare Payers Date Payer Category Payer Private Health Insurance [facility] [id number] 2022 Unknown [id number] 2020 Self-pay [id number] 1979 Unknown [id number] 2.16.840.1.140943.3.579. 2.593 1979 Unknown [id number] 2.16.840.1.713930.3.579. 2.593 1979 Unknown [id number] 2.16.840.1.094265.3.579. 2.593 1979 Unknown [id number] 2.16.840.1.802108.3.579. 2.593 1979 Unknown [id number] 2.16.840.1.931866.3.579. 2.593 1979 Unknown [id number] 2.16.840.1.369900.3.579. 2.593 1979 Unknown [id number] 2.16.840.1.261145.3.579. 2.593 1979 Unknown [id number] 2.16.840.1.186993.3.579. 2.593 1979 Unknown [id number] 2.16.840.1.999381.3.579. 2.593 1979 Unknown [id number] 2.16.840.1.216232.3.579. 2.593 1979 Unknown [id number] 2.16.840.1.652601.3.579. 2.593 1979 Unknown [id number] 2.16.840.1.108427.3.579. 2.593 1979 Unknown [id number] 2.16.840.1.610386.3.579. 2.593 1979 Unknown [id number] 2.16.840.1.534868.3.579. 2.593 1979 Unknown [id number] 2.16.840.1.728870.3.579. 2.593 1979 Unknown [id number] 2.16.840.1.763132.3.579. 2.593 1979 Unknown [id number] 2.16.840.1.355443.3.579. 2.593 1979 Unknown [id number] 2.16.840.1.068359.3.579. 2.593 1979 Unknown [id number] 2.16.840.1.827476.3.579. 2.593 1979 Unknown [id number] 2.16.840.1.992666.3.579. 2.593 1979 Unknown [id number] 2.16.840.1.382956.3.579. 2.593 1979 Unknown [id number] 2.16.840.1.462235.3.579. 2.593 1979 Unknown [id number] 2.16.840.1.202209.3.579. 2.593 1979 Unknown [id number] 2.16.840.1.320521.3.579. 2.593 1979 Unknown [id number] 2.16.840.1.180077.3.579. 2.593 1979 Unknown [id number] 2.16.840.1.164978.3.579. 2.593 1979 Unknown [id number] 2.16.840.1.620422.3.579. 2.593 1979 Unknown [id number] 2.16.840.1.363439.3.579. 2.593 1979 Unknown [id number] 2.16.840.1.612737.3.579. 2.593 1979 Unknown [id number] 2.16.840.1.691043.3.579. 2.593 1979 Unknown [id number] 2.16.840.1.469173.3.579. 2.593 1979 Unknown [id number] 2.16.840.1.850268.3.579. 2.593 1979 Unknown [id number] 2.16.840.1.090302.3.579. 2.593 1979 Unknown [id number] 2.16.840.1.342368.3.579. 2.593 1979 Unknown [id number] 2.16.840.1.962521.3.579. 2.593 1979 Unknown [id number] 2.16.840.1.979872.3.579. 2.593 1979 Unknown [id number] 2.16.840.1.806516.3.579. 2.593 1979 Unknown [id number] 2.16.840.1.241217.3.579. 2.593 1979 Unknown [id number] 2.16.840.1.482728.3.579. 2.593 1979 Unknown [id number] 2.16.840.1.004529.3.579. 2.593 1979 Unknown [id number] 2.16.840.1.164612.3.579. 2.593 1979 Unknown [id number] 2.16.840.1.178292.3.579. 2.1259 1979 Unknown [id number] 2.16.840.1.877298.3.579. 2.1259 1979 Unknown [id number] 2.16.840.1.774968.3.579. 2.1259 1979 Unknown [id number] 2.16.840.1.586941.3.579. 2.1259 1979 Unknown [id number] 2.16.840.1.483668.3.579. 2.1259 1959 Unknown [id number] 2.16.840.1.248890.19 1959 Unknown [id number] 2.16840.1.414412.19 Unknown [id number] 2.16.840.1.646924.3.579. 2.531 Unknown [id number] 2.16.840.1.889372.3.579. 2.531 Social History Date Type Detail Facility Unknown if ever smoked [employer] Other Start: 03-23-2023 End: 10-19-2024 Sex Assigned At [facility] Start: 12-21-2022 Tobacco smoking status [facility] Never smoked tobacco [facility] Start: 12-21-2022 Tobacco use and exposure Smokeless tobacco non-user [facility] Start: 05-18-2023 End: 10-19-2024 Alcohol intake [...] 1980 Sex Assigned At Male F [facility] Start: 10-19-2023 End: 10-19-2023 Tobacco smoking status NHIS Ex-smoker (finding) [facility] Start: 06-14-2024 End: 08-21-2024 Sex Male (finding) [facility] Medical Equipment Procedure Code Equipment Code Equipment [...] He is under the care of an respiratory therapy instructor for his diabetes, with a scheduled appointment [...] necessitated surgical intervention and subsequent rehabilitation at [facility] due to his inability to bear weight on the foot. During his two-month stay at [facility], he contracted MRSA. He underwent physical therapy [...] He maintains regular annual check-ups with an city administrator and dentist. He reports no gastrointestinal symptoms [...] Medical History: Diagnosis Date BMI 40.0-44.9, adult ([facility]) BMI 45.0-49.9, adult ([facility]) Constipation COVID-19 DM (diabetes mellitus) ([facility]) Dyslipidemia History of being hospitalized 03/2018 Uncontrolled diabetes, infection History of COVID-19 05/13/2020 Non-pressure chronic ulcer of other part of unspecified foot with unspecified severity ([facility]) 10/02/2022 Osteomyelitis of great toe of right foot ([facility]) 10/02/2022 Osteomyelitis of right foot ([facility]) 10/02/2022 Pressure ulcer of other site, stage 2 ([facility]) 10/02/2022 Ulcer of foot due to type 2 diabetes mellitus ([facility]) 10/02/2022 Ulcerated, foot, left, limited to breakdown of skin ([facility]) 10/02/2022 Past Surgical History: Procedure Laterality Date AMPUTATION FOOT / TOE Right 03/2018 2nd toe AMPUTATION FOOT / TOE Right 01/10/2021 Hallux - Dr. Moore AMPUTATION FOOT / TOE Left 05/17/2023 4th toe - Dr. Feldman CHEILECTOMY Left 02/14/2020 [facility] CHEILECTOMY Left 09/15/2018 1st Metatarsal FOOT [...] Friends and Family: Twice a week Attends [employer]: More than 4 times per year [...] amputation of toe of right foot, sequela ([facility]) Amputation of toe, traumatic, left, sequela ([facility]) Morbid obesity ([facility]) Hypertriglyceridemia Assessment & Plan 1. Type 2 diabetes mellitus. He is currently under the care of an respiratory therapy instructor, with his most recent A1c level recorded [...] 01/19/2025) for DM. documented in this encounter [facility] 07-19-2024 History of Presen t illness Narrative [...] wound , was in rehab place in [place] couldn't put weight on it for awhile. Had MRSA while there. Had IV ATB 4 times a day for [address] Nolasco in [place]. Was taking Vit D weekly in rehab. Had PT daily there. Now area is approx 50 cent size (medial lateral right foot). Sees Dr Feldman. Has been home for 2 weeks now. Blood sugars 120-160 fasting and after meals. Taking Lantus 42-46 units. Held [facility], they started Victoza-pt will clarify with endo [...] in the hospital, then rehab. Seeing Dr Fedlman, enc F/U per routine Poorly controlled diabetes [...] in Apr 2024) documented in this encounter [facility] 06-14-2024 Evaluation note Diagnosis Onset Date [...] right foot acute August 21, 2024 8:51am [facility] Work Phone: 1(877) 861-686812-11-2024 History of Present illness Narrative* Blossom Cody [...] toe of right foot, subsequent encounter ([facility]) Comments: Sees Dr Feldman and Oscar Dyslipidemia ([facility]) Comments: Lipids: Chol 126, Trig [...] recheck-hypertension/Diabetes, sooner if concerns documented in this encounterSamaritan [id number] Telephone encounter Note* Telephone Encounter - Blossom Cody NP - 02/28/2024 11:53 AM EDT Rx sent [facility] [id number] Miscellaneous Notes* Telephone Encounter - Blossom Cody NP - 02/28/2024 11:53 AM EDT Rx sent documented in this encounterSamaritan [id number] History of Present illness Narrative* Blossom Cody [...] associated with type 2 diabetes mellitus ([facility]) Comments: HgbA1c 9.7 in October. He sees Endo. Plans to do lab for them this week. He has Endo appt next week. Enc yearly eye exams. Enc to watch portions on carbs, avoid sweets. Try to be as active as able. Type 2 diabetes mellitus with neurological manifestation ([facility]) Essential hypertension: Controlled. Pt will verify what dose he has at home ie 30 or 40mg of Lisinopril. 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): Sees Dr Feldman and Dr Moore Type 2 diabetes mellitus with hyperglycemia, with long-term current use of insulin ([facility]): As above Dyslipidemia ([facility]) Comments: Last LDL 79 in Mar 2023 Hypertriglyceridemia ([facility]) Comments: Last Trig 290 in Mar 2023. Avoid sweets, more fruits and mainly non-starchy vegetables, lean protien, nuts and routine exercise. Amputation of toe, traumatic, left, sequela ([facility]) Vitamin B 12 deficiency Comments: Last Vit B12 351 Pt declined flu vaccine today, prefers to wait into later February, could stop back here or do at work or pharmacy. Does not plan to get any more covid vaccines. Enc to think about Prevnar 20. F/U in 3 months for Wellness, sooner if concerns. PVU documented in this [id number] Community [id number] Telephone encounter Note* Telephone Encounter - Blossom Cody NP - 12/30/2023 4:44 PM EDT Rx sent [facility] [id number] Miscellaneous Notes* Telephone Encounter - Blossom Cody NP - 12/30/2023 4:44 PM EDT Rx sent documented in this encounterSamaritan [id number] History of Present illness Narrative* Blossom Cody [...] sugars ranging from 120-170's. Sees [facility] in [place], next appt September 13 with them. Taking [...] they cut it off 05/17/23-Dr Feldman. [facility] has appt next for recheck. [...] associated with type 2 diabetes mellitus ([facility]) Comments: Seepatrice Lewis, last HgbA1c 8.11 May 2023 (prior 8.9 end of December). Pt asked me why we can't just take care of his Diabetes, so he doesn't have to go to [place]. I told him because his sugars are [...] care again. PVU Diabetic neuropathic arthropathy ([facility]) Comments: Hx of Type 2 diabetes mellitus [...] current use of insulin (CMS/HCC): Hx of long term care social worker (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 (Z79.4): Hx of [...] mellitus with hyperglycemia with long term care social worker current use of insulin (CMS/HCC): Hx of Morbid obesity: See above documented in this encounterSamaritan [id number] Evaluation note* Encounter Date Diagnosis Assessment Notes Treatment Notes Treatment Clinical Notes Jun, Type 2 diabetes mellitus with hyperglycemia (ICD-10 - E11.65) [employer] Other 01-31-2024 Evaluation note* Encounter Date Diagnosis [...] for further recommendation May, long term care social worker current use of insulin (ICD-10 - Z79.4) May, Vitamin B 12 deficiency (ICD-10 - E53.8) 04/01 vit b 12 351 at target May, BMI 50.0-59.9, adult (ICD-10 - Z68.43) see above May, Amputation toe (ICD-10 - Z89.429) Keep f/u with Dr. Feldman May, Cracked skin on feet (ICD-10 - R23.4) keep f/u with Dr. Feldman [employer] [facility] Other 08-28-2023 Evaluation note* Encounter Date Diagnosis [...] for Lispro/ozempic 0.5mg sent to [facility] in [place] 01/04/23 7. Prescriptions will not be filled [...] has apt scheduled with Dr. Francia keenan [employer] [facility] Other 05-30-2023 NotePROCEDURE: XR FOOT LT MIN [...] Electronically authenticated by: FRANCO FRANCES Date: 2022-10-06 14:13[facility]05-04-2023 Evaluation note* Encounter Date Diagnosis Assessment Notes Treatment Notes Treatment Clinical Notes September, Type 2 diabetes mellitus with hyperglycemia (ICD-10 - E11.65) [employer] [facility] Other 04-17-2023 NotePROCEDURE: XR FOOT LT MIN [...] Electronically authenticated by: FERN SOSA Date: 2022-08-24 12:46[facility]02-16-2023 Evaluation note* Encounter Date Diagnosis Assessment Notes Treatment Notes Treatment Clinical Notes Jun, Type 2 diabetes mellitus with hyperglycemia (ICD-10 - E11.65) 1. Uncontrolled, a Type 2 diabetes with A1c of 8.2% 2. Blood glucose levels above target. Discussed with pt restarting ozempic, he had s/e from higher dose ozempic 1mg and concern with cost works at [employer]. Pt agreeable to starting sample ozempic 0.5mg [...] issues. 6. Prescriptions: Syringes/ozempic/st eglatro sent to [facility] in [place] 06/25/22 7. Prescriptions will not be filled [...] (hypertension) (ICD-10 - I10) on julissa Jun, long term care social worker current use of insulin (ICD-10 - Z79.4) Jun, Vitamin B 12 deficiency (ICD-10 - E53.8) 12/28 vit b 12 423 at target Jun, BMI 50.0-59.9, adult (ICD-10 - Z68.43) [employer] Other 02-07-2023 NotePROCEDURE: XR ANKLE LT MIN [...] Electronically authenticated by: GISSEL RUBIO Date: 2022-06-16 16:33[facility]02-07-2023 NotePROCEDURE: XR ANKLE LT MIN 3 V, [...] Electronically authenticated by: GISSEL RUBIO Date: 2022-06-16 16:33[facility]08-30-2022 Evaluation note* Encounter Date Diagnosis Assessment Notes [...] last visit, continue with weight loss efforts [employer] Other 01-01-2021 History general Narrative - Reported* Type Description Date Medical History type II diabetes Medical History hypertension Medical History hyperlipidemia Medical History covid 05/2020 Surgical History Ulcer on left great toe X2 Surgical History Partial amputation Right great toe 01/2021 Surgical History All toes right foot amputated Hospitalization History Toe infection 2017 [employer] Other 01-01-2021 History general Narrative - Reported* Type Description Date Medical History type II diabetes Medical History hypertension Medical History hyperlipidemia Medical History covid 05/2020 Surgical History Ulcer on left great toe X2 Surgical History Partial amputation Right great toe 01/2021 Surgical History All toes right foot amputated Surgical History Left great toe corre ctive surgery with Dr. Feldman in [place] 10/2022 Hospitalization History Toe infection 2017 [employer] Other Chigt complaint+Reason for visit Narrative* Chief Complaint no meter Reason for Visit BMI 50.0-59.9, adult Dietary counseling and surveillance Hypertension Mixed hyperlipidemia Type 2 diabetes mellitus with hyperglycemia [facility] Work Phone: Chipk complaint+Reason for visit Narrative* Chief Complaint meter Reason for Visit BMI 50.0-59.9, adult Dietary counseling and surveillance Hypertension Mixed hyperlipidemia Type 2 diabetes mellitus with hyperglycemia Wound of left foot Wound of right foot [facility] Work Phone: Evaluation noteNo InformationNort Replise Other Evaluation note* Diagnosis Diabetic polyneuropathy associated with type 2 diabetes mellitus ([facility]/HCC)- Primary Diabetic neuropathic arthropathy ([facility]/HCC) Type II or unspecified type [...] with long-term current use of insulin (CMS/HCC) long term care social worker (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 (Z79.4) Acquired absence of other toe(s), unspecified side (Z89.429) Type 2 diabetes mellitus with diabetic neuropathy, with long-term current use of insulin ([facility]) Body mass index [BMI] 50.0-59.9, adult (Z68.43) Type 2 diabetes mellitus with foot ulcer, with long-term current use of insulin ([facility]/HCC) 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.49) Status post amputation of lesser toe, unspecified laterality ([facility]) Arthritis of left foot Acquired hallux valgus of left foot Type 2 diabetes mellitus with hyperglycemia, with long-term current use of insulin ([facility]) Morbid obesity ([facility]) Morbid obesity documented in this encounter [facility] HealthcareEvaluation noteNo assessment information [facility] Work Phone: Evaluation note* Diagnosis Onset Date Resolution Status BMI 50.0-59.9, adult acute Dietary counseling and surveillance acute Hypertension acute Mixed hyperlipidemia acute Type 2 diabetes mellitus with hyperglycemia acute [facility] Work Phone: Evaluation note* Diagnosis Onset Date Resolution Status BMI 50.0-59.9, adult acute Dietary counseling and surveillance acute Hypertension acute Mixed hyperlipidemia acute Type 2 diabetes mellitus with hyperglycemia acute Wound of left foot acute Wound of right foot acute [facility] Work Phone: Evaluation note* Diagnosis Pure hyperglyceridemia ([facility]) Pure hyperglyceridemia [facility] Diagnosis Diabetic polyneuropathy associated with type 2 diabetes mellitus ([facility]/HCC)- Primary Type 2 diabetes mellitus with neurological manifestation (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) Type 2 diabetes mellitus with hyperglycemia, with long-term current use of insulin ([facility]) Dyslipidemia ([facility]) Other and unspecified hyperlipidemia Hypertriglyceridemia ([facility]) Pure hyperglyceridemia Vitamin B 12 deficiency Other B-complex deficiencies Pure hyperglyceridemia ([facility]) Pure hyperglyceridemia documented in this encounter [facility]* Diagnosis Diabetic polyneuropathy associated with type 2 diabetes mellitus ([facility])- Primary Wellness examination Type 2 diabetes mellitus with neurological manifestation (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) Dyslipidemia ([facility]) Other and unspecified hyperlipidemia Hypertriglyceridemia ([facility]) Pure hyperglyceridemia Poorly controlled diabetes mellitus ([facility]) Type II or unspecified type diabetes mellitus without mention of complication, not stated as uncontrolled Type 2 diabetes mellitus with hyperglycemia, with long-term current use of insulin ([facility]) Diabetic autonomic neuropathy associated with type 2 diabetes mellitus ([facility]) Type II or unspecified type diabetes mellitus with neurological manifestations, not stated as uncontrolled Acquired hallux valgus, unspecified laterality Morbid obesity ([facility]) Morbid obesity Vitamin B 12 deficiency Other B-complex deficiencies 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[facility]) Lipoprotein deficiencies documented in [facility]* Diagnosis Essential hypertension Unspecified essential hypertension documented in this encounter [facility] Diagnosis Diabetic polyneuropathy associated with type 2 diabetes mellitus ([facility]/HCC)- Primary Type 2 diabetes mellitus with neurological manifestation (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) Type 2 diabetes mellitus with hyperglycemia, with long-term current use of insulin ([facility]) Ulcer of right foot, unspecified ulcer stage (HCC) ([facility]) Poorly controlled diabetes mellitus ([facility]) Type II or unspecified type diabetes mellitus without mention of complication, not stated as uncontrolled Dyslipidemia ([facility]) Other and unspecified hyperlipidemia Hypertriglyceridemia (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-HCC) Morbid obesity Hypertriglyceridemia Pure hyperglyceridemia documented in [...] right foot acute November 27, 2024 9:51am [facility] Work Phone: Reason for referral (narrative)No reason for referral information availableSalem City Hospital Work Phone: Summary Purpose Family History [...] section and content) DATE CREATED AUTHOR 08/27/2021 [facility] dical Specialist DATE CREATED AUTHOR AUTHOR'S ORGANIZ ATION 10/17/2022 [facility] DATE CREATED AUTHOR AUTHOR'S ORGANIZ ATION 04/29/2024 [facility] DATE CREATED AUTHOR AUTHOR'S ORGANIZ ATION 10/21/2024 [facility] dical Specialists EPIC REASON FOR VISIT [...] January 26, 2024 End: January 26, 2024 Engine Cleaner Relationship Specialty Start Date End Date Natalie Hernandez MD [address] [place] [address] PCP - General Family Medicine 09/15/22 Engine Cleaner Relationship Specialty Start Date End Date Natalie Hernandez MD [address] [place] [address] PCP - General Family Medicine 09/15/22 Team [...] October 19, 2023 End: October 19, 2023 Engine Cleaner Relationship Specialty Start Date End Date Natalie Hernandez MD [address] [place] [address] PCP - General Family Medicine 09/15/22 Blossom Cody NP [address] [facility] [place] [address] Nurse Practitioner Family Medicine 01/19/24 Engine Cleaner Relationship Specialty Start Date End Date Natalie Hernandez MD [address] [facility] [place] [address] PCP - General Family Medicine 09/15/22 Blossom Cody NP [address] [place] [address] Nurse Practitioner Family Medicine 01/19/24 Engine Cleaner Relationship Specialty Start Date End Date Natalie Hernandez MD [address] [facility] [address] PCP - General Family Medicine 09/15/22 Blossom Cody DATAPOWER CONSULTANT [address] [facility] [address] Nurse Practitioner Family Medicine 01/19/24 Engine Cleaner Relationship Specialty Start Date End Date Natalie Hernandez MD [address] [facility] [place] [address] PCP - General Family Medicine 09/15/22 Blossom Cody NP [address] [place] [address] Nurse Practitioner Family Medicine 01/19/24 Engine Cleaner Relationship Specialty Start Date End Date Natalie Hernandez MD [address] [place] [address] PCP - General Family Medicine 09/15/22 Engine Cleaner Relationship Specialty Start Date End Date Natalie Hernandez MD [address] [place] [address] PCP - General Family Medicine 09/15/22 Engine Cleaner Relationship Specialty Start Date End Date Natalie Hernandez MD [address] [facility] [address] PCP - General Family Medicine 09/15/22 Blossom Cody NP [address] [facility] [address] Nurse Practitioner Family Medicine 01/19/24 Engine Cleaner Relationship Specialty Start Date End Date Natalie Hernandez MD [address] [facility] [address] PCP - General Family Medicine 09/15/22 Blossom Cody NP [address] [facility] [place] [address] Nurse Practitioner Family Medicine 01/19/24 Engine Cleaner Relationship Specialty Start Date End Date Natalie Hernandez MD [address] [facility] [place] [address] PCP - General Family Medicine 09/15/22 Blossom Cody NP [address] [place] [address] Nurse Practitioner Family Medicine 01/19/24 Engine Cleaner Relationship Specialty Start Date End Date Natalie Hernandez MD PCP - General Family Medicine 09/15/22 Blossom Cody NP Nurse Practitioner Family Medicine 01/19/24 Engine Cleaner Relationship Specialty Start Date End Date ShelbyNatalie MD PCP - General Family Medicine 09/15/22 Blossom Cody NP Nurse Practitioner [facility] 01/19/24 Team Status: Active Member Role [...] BE BASED ON THE PRIMARY CLINICAL RECORDS. [employer] provides no warranty or guarantee of the accuracy or completeness of information in this document.
== END 2025-01-24 10:19 | disposition home or self-care (01) ==
LOC: WC 10:18
PROVIDERS: PCP Family Medicine; Visit Provider Physician Assistant
DX: L84 Corns and callosities (principal); E11.65 Type 2 diabetes mellitus with hyperglycemia
CPT/HCPCS: G0463

== ENCOUNTER 2025-02-20 13:36 | Outpatient (OUT) | payer OTHER, SELFPAY ==
--- OUTSIDE RECORDS SUMMARY | 2024-04-26 04:00 | XMS_ITS ---
Author Organization [facility] in [place] Address [address] [place] [address] Care Team Providers Care Interventional Tech Name Role Phone Natalie Ryan Primary Care Provider Jesus Dai [phone] REASON FOR VISIT wound - RT foot I&D Encounters Encounter Location Date Provider Diagnosis THE [address] [address] 04/26/2024 Jesus Feldman Plan Of Treatment No Information Progress Notes * MIKE Trev BDOB: 0 (44 yo M)Acc No.[id number]:04/26/2024 UNLOCKED PROGRESS NOTE Patient: Trev REDDY Provider: Boris Feldman DPM, MS :1980 A ge:43 Y S ex:Male Date:04/26/2024 Address:[address] [place], [place] [id number] Pcp:Natalie Ryan Check Out:01:07 PM EST * * Electronic signature of Rolando Feldman DPM on 02/20/2025 at 01:42 PM EDT Sign off status: Pending Visit Status: Isiah HK (Check Out) * Provider: Boris Feldman DPM, MS Date: 06/27/2023 Generated for [place]/Faxing/eTransmitting on: 01:42 PM EDT
--- OUTSIDE RECORDS SUMMARY | 2024-04-28 04:30 | XMS_ITS ---
Author Organization [facility] in [place] Address [address] [place] [address] Care Team Providers Care Cement Production Plant Operator Name Role Phone Natalie Ryan Primary Care Provider Jesus Dai [phone] REASON FOR VISIT wound - I&D Encounters Encounter Location Date Provider Diagnosis [facility] [address] [place] [address] 04/28/2024 Jesus Feldman Plan Of Treatment No Information Progress Notes * MIKE Trev BDOB: 0 (44 yo M)Acc No.[id number]:04/28/2024 UNLOCKED PROGRESS NOTE Patient: Trev REDDY Provider: Boris Feldman DPM, MS :1980 A ge:43 Y S ex:Male Date:04/28/2024 Address:[address] [place], [place] [phone] Pcp:Natalie Ryan Check Out:01:10 PM EST * * Electronic signature of Rolando Feldman DPM on 02/20/2025 at 01:42 PM EDT Sign off status: Pending Visit Status: Isiah HK (Check Out) * Provider: Boris Feldman DPM, MS Date: 06/29/2023 Generated for Benito ng/Yoshi/eTransmitting on: 1 01:42 PM EDT
--- OUTSIDE RECORDS SUMMARY | 2025-02-20 13:41 | XMS_ITS | Encounter Summary ---
Author Organization [facility] Address [address] [place] [address] Care Team Providers Care Model Engine Mechanic Name Role Phone Natalie Ryan MD Primary Care Provider [phone] Blossom Cody CERTIFIED NOVELL ENGINEER Unavailable [phone] Tres Oleary MD Primary Care Provider [phone] Encounter Details Date Type Department Care Team ([facility] Contact Info) Description 10/02/2022 Abstract [facility] Medicine [address] [place] [address] Natalie Ryan MD Social History Tobacco Use Types Packs/Day Years Used Date Smoking Tobacco: Never Assessed Sex and Gender Information Value Date Recorded Sex Assigned at Not on file Legal Sex Male 6:33 PM EDT Gender Identity Not on file Sexual Orientation Not on file documented as of this encounter Plan of Treatment Upcoming Encounters Date Type Department Care Team ([facility] Contact Info) Description 04/24/2025 9:30 AM EST Office Visit [facility] Medicine [address] [place] [address] Maria Fernanda Olguin NP [address] [place] [address] documented as of this encounter Visit Diagnoses Not on filedocumented in this encounter Care Teams Model Engine Mechanic Relationship Specialty Start Date End Date Natalie Ryan MD PCP - General Family Medicine 09/15/22 01/10/25 Tres Oleary MD [address] [place] [address] PCP - General Family Medicine 01/11/25 Blossom Cody NP Nurse Practitioner Family Medicine 01/19/24 documented as of this encounter
--- OUTSIDE RECORDS SUMMARY | 2025-02-20 13:41 | XMS_ITS | Encounter Summary ---
Author Organization [facility] Healthcare Address [address] [place] [address] Care Team Providers Care Academic Coach Name Role Phone Natalie Ryan MD Primary Care Provider Blossom Cody TEST INSPECTION ENGINEER Unavailable [phone] Tres Oleary MD Primary Care Provider [phone] Encounter Details Date Type Department Care Team ([facility] st Contact Info) Description 06/09/2023 Orders Only [facility] Family Medicine [address] [place] [address] Link Ortega NP [address] [place] [place] [address] Social History Tobacco Use Types [...] ex-partner? Patient declined 03/23/2023 Social Connection and Isolation Panel Answer Date Recorded In a typical week, how many times do you talk on the phone with family, friends, or neighbors? Twice a week 03/23/2023 How often do you get togethe r with friends or relatives? Twice a week 03/23/2023 How often do you attend chur or religion services? More than 4 times per year 03/23/2023 Do you belong to any clubs o r organizations such as shinto groups, unions, fraLex Machina or athletic groups, or school groups? Patient [...] Care Team (Late st Contact Info) Description 04/24/2025 9:30 AM EST Office Visit [facility] [address] [place] [phone] Maria Fernanda Olguin NP [address] [place], [place] [id number] documented as of this encounter Procedures Procedure [...] on filedocumented in this encounter Care Teams Academic Coach Relationship Specialty Start Date End Date Johnly, Natalie Lozada MD PCP - General Family Medicine 09/15/22 01/10/25 Tres Oleary MD [address] [place], [place] [address] PCP - General Family Medicine 01/11/25 Blossom Cody NP Nurse Practitioner Family Medicine 01/19/24 documented as of this encounter
--- OUTSIDE RECORDS SUMMARY | 2025-02-20 13:41 | XMS_ITS | Encounter Summary ---
Author Organization [facility] Address [address] [place] [address] Care Team Providers Care Teachers Assistant Name Role Phone Natalie Ryan MD Primary Care Provider [phone] Blossom Cody HEAD INSPECTOR Unavailable [phone] Tres Oleary MD Primary Care Provider [phone] Encounter Details Date Type Department Care Team (Late st Contact Info) Description 10/06/2022 Clinisync Result Encounter [...] Description 04/24/2025 9:30 AM EST Office Visit [facility] [address] [place] [phone] Maria Fernanda Olguin NP [address] [place] [address] documented as of this encounter Procedures Procedure [...] on filedocumented in this encounter Care Teams Teachers Assistant Relationship Specialty Start Date End Date Natalie Ryan MD PCP - General Family Medicine 09/15/22 01/10/25 Tres Oleary MD [address] [place] [address] PCP - General Family Medicine 01/11/25 Blossom Cody NP Nurse Practitioner Family Medicine 01/19/24 documented as of this encounter
--- OUTSIDE RECORDS SUMMARY | 2025-02-20 13:41 | XMS_ITS | Encounter Summary ---
Author Organization [facility] Healthcare Address [address] [place] [address] Care Team Providers Care Special Education Resource Teacher Name Role Phone Natalie Ryan MD Primary Care Provider [phone] Blossom Cody ACCOUNTS EXECUTIVE Unavailable [phone] Tres Oleary MD Primary Care Provider [phone] Encounter Details Date Type Department Care Team ([facility] Contact Info) Description 03/19/2023 Orders Only [facility] Family Medicine [address] [place] [address] Link Ortega NP [address] [place] [address] Social History Tobacco Use Types [...] How often do you attend chur or catholic services? More than 4 times per year 03/23/2023 Do you belong to any clubs o r organizations such as yarsanism groups, unions, fraITema or athletic groups, or school groups? Patient [...] 04/24/2025 9:30 AM EST Office Visit [facility] [address] [place] [phone] Maria Fernanda Olguin NP [address] [place], [place] [phone] documented as of this encounter Procedures Procedure [...] filedocumented in this encounter Care Teams Special Education Resource Teacher Relationship Specialty Start Date End Date Shelby, Natalie Lozada MD PCP - General Family Medicine 09/15/22 01/10/25 Tres Oleary MD [address] [place], [place] [address] PCP - General Family Medicine 01/11/25 Blossom Cody NP Nurse Practitioner Family Medicine 01/19/24 documented as of this encounter
--- OUTSIDE RECORDS SUMMARY | 2025-02-20 13:41 | XMS_ITS | Encounter Summary ---
Author Organization [facility] Address [address] [place] [address] Care Team Providers Care Head Charger Name Role Phone Natalie Ryan MD Primary Care Provider [phone] Blossom Cody COMMUNICATIONS MANAGER Unavailable [phone] Tres Oleary MD Primary Care Provider [phone] Encounter Details Date Type Department Care Team ([facility] Contact Info) Description 09/22/2022 Abstract [facility] Medicine [address] [place] [address] Natalie Ryan MD Social History Tobacco Use Types Packs/Day Years Used Date Smoking Tobacco: Never Assessed Sex and Gender Information Value Date Recorded Sex Assigned at Not on file Legal Sex Male 6:33 PM EDT Gender Identity Not on file Sexual Orientation Not on file documented as of this encounter Plan of Treatment Upcoming Encounters Date Type Department Care Team ([facility] Contact Info) Description 04/24/2025 9:30 AM EST Office Visit [facility] Medicine [address] [place] [address] Maria Fernanda Olguin NP [address] [place] [address] documented as of this encounter Visit Diagnoses Not on filedocumented in this encounter Care Teams Head Charger Relationship Specialty Start Date End Date Natalie Ryan MD PCP - General Family Medicine 09/15/22 01/10/25 Tres Oleary MD [address] [place] [address] PCP - General Family Medicine 01/11/25 Blossom Cody NP Nurse Practitioner Family Medicine 01/19/24 documented as of this encounter
--- OUTSIDE RECORDS SUMMARY | 2025-02-20 13:41 | XMS_ITS | Encounter Summary ---
Author Organization [facility] Address [address] [place] [address] Care Team Providers Care Plycor Operator Name Role Phone Eric Hernandez MD Primary Care Provider [phone] Blossom Cody GATE WATCHMAN Unavailable [phone] Tres Oleary MD Primary Care Provider [phone] Encounter Details Date Type Department Care Team ([facility] Contact Info) Description 04/28/2023 Clinisync Result Encounter [...] often do you attend chur ch or yarsani services? More than 4 times per year [...] 04/24/2025 9:30 AM EST Office Visit [facility] Medicine [address] [place] [address] Maria Fernanda Olguin NP [address] [place] [address] documented as of this encounter Procedures Procedure Name Priority Date/Time Associated Diagnosis Comments XR FOOT LT MIN 3V 04/28/2023 2:2 6 PM EST documented in this encounter Results * XR FOOT LT MIN 3V (04/28/2023 2:26 PM EST) Anatomical Region Laterality Modality Other 04/28/2023 2:26 PM EST Narrative 04/28/2023 2:29 PM EST [address] [address] XRay Report Signed Patient: TREV MCKEON MR#: [id number] : 1980 Acct:[id number] Age/Sex: 42 / M ADM Date: 04/28/23 Loc: Attending Dr: Jesus Feldman D.P.M. Ordering Physician: Jesus Feldman D.P.M. Date of Service: 04/28/23 Procedure(s): XR foot LT min 3V Accession Number(s): [id number] cc: Jesus Feldman D.P.M.; ERIC HERNANDEZ [address] [address] Patient Name: TREV MCKEON MRN: [id number] date: 1980 Sex: M Assigned Patient Location: Current Patient Location: Accession/Order Number: [id number] Exam Date: 04/28/2023 10:10 Report Date: 04/28/2023 14:26 At the request of: JESUS FELDMAN Procedure: XR foot LT min 3V PROCEDURE: XR foot LT min 3V DATE: 04/28/2023 9:10 AM SUPERVISOR BENZENE REFINING COMPARISONS: 02/19/2023 CLINICAL INDICATION: LEFT FOOT BLISTER [...] Signed By: 04/28/23 1429 DD/ 1426 TD/TT: Neonatal Specialist: Procedure Note Radiology, Radiologist, MD - 07/14/2023 [place] [address] XRay Report Signed Patient: TREV MCKEON BMR#: [id number] : 1980Acct:[id number] Age/Sex: 42 / MADM Date: 04/28/23 Loc: WC Attending Dr: Jesus Feldman D.P.M. Ordering Physician: Jesus Feldman D.P.M. Date of Service: 04/28/23 Procedure(s): XR foot LT min 3V Accession Number(s): [id number] cc: Jesus Feldman D.P.M.; ERIC HERNANDEZ [place] [id number] Patient Name: TREV MCKEON MRN: [id number] date: 1980 Sex: M Assigned Patient Location: Current Patient Location: Accession/Order Number: [id number] Exam Date: 04/28/2023 10:10 Report Date: 04/28/2023 14:26 At the request of: JESUS FELDMAN Procedure: XR foot LT min 3V PROCEDURE: XR foot LT min 3V DATE: 04/28/2023 9:10 AM SUPERVISOR BENZENE REFINING COMPARISONS: 02/19/2023 CLINICAL INDICATION: LEFT FOOT BLISTER [...] M.D. Signed By:04/28/23 1429 DD/ 1426 TD/TT: Neonatal Specialist: Generic External Data Provider [facility] Final Result documented in this encounter Visit Diagnoses Not on filedocumented in this encounter Care Teams Plycor Operator Relationship Specialty Start Date End Date Johnly, Eric Lozada MD PCP - General Family Medicine 09/15/22 01/10/25 Tres Oleary MD [address] [place] [address] PCP - General Family Medicine 01/11/25 Blossom Cody NP Nurse Practitioner Family Medicine 01/19/24 documented as of this encounter
--- OUTSIDE RECORDS SUMMARY | 2025-02-20 13:41 | XMS_ITS | Encounter Summary ---
Author Organization [facility] Address [address] [place] [address] Care Team Providers Care Contracts Manager Name Role Phone Eric Hernandez MD Primary Care Provider Blossom Cody EXPANSION JOINT BUILDER Unavailable [phone] Tres Oleary MD Primary Care Provider [phone] Encounter Details Date Type Department Care Team ([facility] Contact Info) Description 02/19/2023 Clinisync Result [...] Upcoming Encounters Date Type Department Care Team ([facility] Contact Info) Description 04/24/2025 9:30 AM EST Office Visit [facility] [address] [place] [address] Maria Fernanda Olguin NP [address] [place] [address] documented as of this encounter Procedures Procedure Name Priority Date/Time Associated Diagnosis Comments XR FOOT LT MIN 3V 02/19/2023 2:5 5 PM EDT documented in this encounter Results * XR FOOT LT MIN 3V (02/19/2023 2:55 PM EDT) Anatomical Region Laterality Modality Other 02/19/2023 2:55 PM EDT Narrative 02/19/2023 2:55 PM EDT [address] [address] XRay Report Signed Patient: Trev Mckeon MR#: [id number] : 1980 Acct:[id number] Age/Sex: 42 / M ADM Date: 02/19/23 Loc: Attending Dr: Jesus Feldman D.P.M. Ordering Physician: Jesus Feldman M.D. Date of Service: 02/19/23 Procedure(s): XR foot LT min 3V Accession Number(s): [id number] cc: Jesus Feldman M.D.; ERIC HERNANDEZ [address] [address] Patient Name: TREV MCKEON MRN: [id number] date: 1980 Sex: M Assigned Patient Location: Current Patient Location: Accession/Order Number: [id number] Exam Date: 02/19/2023 10:00 Report Date: 02/19/2023 [...] Nayak M.D. Signed By: 02/19/23 1457 DD/ 1452 TD/TT: Top Icer: Procedure Note Radiology, Radiologist, MD - 02/19/2023 [place] [address] XRay Report Signed Patient: Trev Mckeon BMR#: [id number] : 1980Acct:[id number] Age/Sex: 42 / MADM Date: 02/19/23 Loc: Attending Dr: eJsus Feldman D.P.M. Ordering Physician: Jesus Feldman M.D. Date of Service: 02/19/23 Procedure(s): XR foot LT min 3V Accession Number(s): [id number] cc: Jesus Feldman M.D.; ERIC HERNANDEZ [place] [id number] Patient Name: TREV MCEKON MRN: [id number] date: 1980 Sex: M Assigned Patient Location: Current Patient Location: Accession/Order Number: [id number] Exam Date: 02/19/2023 10:00 Report Date: 02/19/2023 [...] KENY NAYAK Date: 02/19/2023 14:55 Dictated By: Keyn Nayak M.D. Signed By:02/19/231456 DD/ 54 TD/TT: Top Icer: us Generic External Data Provider [facility] Final Result documented in this encounter Visit Diagnoses Not on filedocumented in this encounter Care Teams Contracts Manager Relationship Specialty Start Date End Date Eric Hernandez MD PCP - General Family Medicine 09/15/22 01/10/25 Tres Oleary MD [address] [place] [address] PCP - General Family Medicine 01/11/25 Blossom Cody NP Nurse Practitioner Family Medicine 01/19/24 documented as of this encounter
--- OUTSIDE RECORDS SUMMARY | 2025-02-20 13:42 | XMS_ITS | Patient Health Record ---
Author Organization [facility] [place] Address [address] [place] [address] Care Team Providers Care Recreation Facility Attendant Name Role Phone Natalie Hernandez Primary Care Provider Natanael Dai Unavailable [phone] Results Component Value Reference Range Notes Gram [...] Stain Result Gram Stain Result Performed at: [facility] Gram Stain Result Gram Stain Result [address], [place] [id number] Gram Stain Result Gram Stain Result Repair Armature Winder: Nancy Everett PhD, Phone: [phone] Gram Stain Result Performing Lab: see note SEE REPORT - Venetian Blind 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 Id information not found for OBX-specific type proof reproducer legend [facility] Aerobic Culture (Not yet rev iewed [...] Status O:PSAV Isolated Performing Lab: see note LC - [facility] LB SEE REPORT - Venetian Blind 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 Id information not found for OBX-specific type proof reproducer legend Anaerobic Culture (Not yet r eviewed [...] LC - [facility] LB SEE REPORT - Venetian Blind 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 Id information not found for OBX-specific type proof reproducer legend XR foot RT min 3V (Not yet r eviewed by provider) Interpretation: Performing Lab: Notes/Report: Source Facility: [place] [address] [place] [address] XRay Report Signed Patient: TREV MCKEON MR#: [id number] : 1980 Acct:[id number] Age/Sex: 43 / M ADM Date: 04/25/24 Loc: Attending Dr: Martell Navas Ordering Physician: Martell Navas Date of Service: 04/25/24 Procedure(s): XR foot RT min 3V Accession Number(s): [id number] cc: Martell Navas; MARYNATALIE Kierra [place] [id number] Patient Name: TREV MCKEON MRN: [id number] date: 1980 Sex: M Assigned Patient Location: Current Patient Location: [place] Accession/Order Number: [id number] Exam Date: 04/25/2024 11:58 Report Date: 04/26/2024 [...] Signed By: 04/26/24905 DD/ 2 TD/TT: Rn Orthopaedic: AFB Specimen Processing (Not yet reviewed by [...] Fast Culture Acid Fast Culture Performed at: [facility] Specimen has been received and testing has been initiated. Acid Fast Culture Acid Fast Culture [address], [place] [id number] Specimen has been received and testing has been initiated. Acid Fast Culture Acid Fast Culture Repair Armature Winder: Nancy Everett PhD, Phone: [phone] Specimen has been received and testing has been initiated. Acid Fast Culture Performing Lab: see note SEE REPORT - Venetian Blind 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 Id information not found for OBX-specific type proof reproducer legend - [facility] LB Fungus Stain (Not yet review ed by provider) Interpretation: Performing Lab: Notes/Report: Comment right foot fascia for culture [facility] , Fungus Stain See Below For Report Fungus Stain Fungus Stain SHAQ/Calcofluor preparation: no fungus observed. Fungus Stain Performing Lab: see note [facility] Fungus (Mycology) Culture (N ot yet reviewed by provider) Interpretation: Performing Lab: Notes/Report: Comment right foot ulcer [facility] , Fungus (Mycology) Culture See Below For Report WILL FOLLOW Fungus (Mycology) Culture Fungus (Mycology) Culture No yeast or mold isolated after 4 weeks. WILL FOLLOW Fungus (Mycology) Culture Fungus (Mycology) Culture Performed at: [facility] WILL FOLLOW Fungus (Mycology) Culture Fungus (Mycology) Culture [address], [place] [id number] WILL FOLLOW Fungus (Mycology) Culture Fungus (Mycology) Culture Repair Armature Winder: Lalo Everett PhD, Phone: [phone] WILL FOLLOW Fungus (Mycology) Culture Performing Lab: see note - [facility] LB SEE REPORT - Venetian Blind 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 Id information not found for OBX-specific type proof reproducer legend Gram Stain Result (Not yet r eviewed by provider) Interpretation: Performing Lab: Notes/Report: [facility] , Gram Stain Result See Below For Report Gram Stain Result Gram Stain Result No white blood cells seen. Gram Stain Result Gram Stain Result Gram Stain Result Gram Stain Result No organisms seen Gram Stain Result Gram Stain Result Performed at: [facility] Gram Stain Result Gram Stain Result [address], [place] [id number] Gram Stain Result Gram Stain Result Repair Armature Winder: Nancy Everett PhD, Phone: [phone] Gram Stain Result Performing Lab: see note SEE REPORT - Venetian Blind 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 Id information not found for OBX-specific type proof reproducer legend [facility] Aerobic Culture (Not yet rev iewed by provider) Interpretation: Performing Lab: Notes/Report: [facility] , Aerobic Culture See Below For Report WILL FOLLOW Aerobic Culture Aerobic Culture WILL FOLLOW Aerobic Culture Aerobic Culture Mixed skin maximiliano WILL FOLLOW Aerobic Culture Performing Lab: see note [facility] Anaerobic Culture (Not yet r eviewed [...] Culture Isolated O:PREDIS Anaerobic Culture Studies at [facility] have confirmed the Anaerobic Culture Isolated [...] Culture Isolated O:PREDIS Performing Lab: see note [facility] LB Anaerobic Cult, Extended Inc ub [...] O:PREDIS Anaerobic Cult, Extended Incub Studies at [facility] have confirmed the Isolated Anaerobic Cult, [...] Extended Incub O:PREDIS Performing Lab: see note LC - [...] provider) Interpretation: Performing Lab: Notes/Report: Source Facility: [place] [address] XRay Report Signed Patient: TREV MCKEON MR#: [id number] : 1980 Acct:[id number] Age/Sex: 43 / M ADM Date: 04/25/24 Loc: [place] 204-[address]: Beth Root D.O. Ordering Physician: Natanael Feldman D.P.M. Date of Service: 04/26/24 Procedure(s): XR foot RT min 3V Accession Number(s): [id number] cc: Natanael Feldman D.P.M.; NATALIE HERNANDEZ [place] [address] Patient Name: TREV MCKEON MRN: [id number] date: 1980 Sex: M Assigned Patient Location: MS Current Patient Location: [place] Accession/Order Number: [id number] Exam Date: 04/26/2024 10:30 Report Date: 04/26/2024 [...] Signed By: 04/26/24 1158 DD/ 1155 TD/TT: Rn Orthopaedic: AFB Specimen Processing (Not yet reviewed by [...] Stain Result Gram Stain Result Performed at: [facility] Gram Stain Result Gram Stain Result [address], [place] [id number] Gram Stain Result Gram Stain Result Repair Armature Winder: Nancy Everett PhD, Phone: [phone] Gram Stain Result Performing Lab: see note SEE REPORT - Venetian Blind 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 Id information not found for OBX-specific type proof reproducer legend - [facility] LB Fungus Stain (Not yet [...] reviewed by provider) Interpretation: Performing Lab: Notes/Report: [facility] , Gram Stain See Below For [...] Cells Performing Lab: see note ML [facility] AFB Specimen Processing (Not yet reviewed [...] Acid Fast Smear Performing Lab: see note - [facility] LB [...] Fast Culture Acid Fast Culture Performed at: [facility] Specimen has been received and testing has been initiated. Acid Fast Culture Acid Fast Culture [address], [place] [address] Specimen has been received and testing has been initiated. Acid Fast Culture Acid Fast Culture Repair Armature Winder: Nancy Everett PhD, Phone: [phone] Specimen has been received and testing has been initiated. Acid Fast Culture Performing Lab: see note SEE REPORT - Venetian Blind 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 Id information not found for OBX-specific type proof reproducer legend LC - [facility] LB Fungus Stain [...] (Mycology) Culture Fungus (Mycology) Culture Performed at: [facility] Fungus (Mycology) Culture Fungus (Mycology) Culture [address], [place] [address] Fungus (Mycology) Culture Fungus (Mycology) Culture Repair Armature Winder: Lalo Everett PhD, Phone: [phone] Fungus (Mycology) Culture Performing Lab: see note - [facility] LB SEE REPORT - Venetian Blind 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 Id information not found for OBX-specific type proof reproducer legend Aerobic Culture (Not yet rev iewed [...] 1.1 Aerobic Culture Organism: Acinetobac ter baumannii (PLANT SUPERVISOR) : O:GNR Organism: Gram negative rivas : [...] Organism: 1.1 Aerobic Culture Acinetobacter todd newton (PLANT SUPERVISOR) O:GNR Organism: Gram negative rivas : O:CRAB [...] Status Organism: 1.1 Aerobic Culture Performed at: [facility] O:GNR Organism: Gram negative rivas : O:CRAB Isolated Isolated Aerobic Culture Antibiotic Interpretation [place] Status Organism: 1.1 Aerobic Culture [address], [place] [address] O:GNR Organism: Gram negative rivas : O:CRAB Isolated Isolated Aerobic Culture Antibiotic Interpretation [place] Status Organism: 1.1 Aerobic Culture Repair Armature Winder: Nancy Everett PhD, Phone: [phone] O:GNR Organism: Gram negative rivas : O:CRAB [...] Performing Lab: see note SEE REPORT - Venetian Blind 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 Id information not found for OBX-specific type proof reproducer legend - [facility] Anaerobic Culture (Not yet r eviewed [...] (Mycology) Culture Fungus (Mycology) Culture Performed at: [facility] Fungus (Mycology) Culture Fungus (Mycology) Culture [address], [place] [address] Fungus (Mycology) Culture Fungus (Mycology) Culture Repair Armature Winder: Lalo Everett PhD, Phone: [phone] Fungus (Mycology) Culture Performing Lab: see note SEE REPORT - Venetian Blind 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 Id information not found for OBX-specific type proof reproducer legend LC - [facility] LB Aerobic Culture (Not [...] F Aerobic Culture Organism: Acinetobac ter baumannii (PLANT SUPERVISOR) : Ampicillin/Sulbactam Isolated Meropenem R F Ciprofloxacin [...] I F Aerobic Culture Acinetobacter todd newton (PLANT SUPERVISOR) Ampicillin/Sulbactam Isolated Meropenem R F Ciprofloxacin Gentamicin [...] I F Aerobic Culture [facility] Ampicillin/Sulbactam Isolated Meropenem R F Ciprofloxacin Gentamicin [...] F Ceftazidime I F Aerobic Culture [address], [place] [address] Ampicillin/Sulbactam Isolated Meropenem R F Ciprofloxacin Gentamicin [...] R F Ceftazidime I F Aerobic Culture Repair Armature Winder: Nancy Everett PhD, Phone: [phone] Ampicillin/Sulbactam Isolated Meropenem R F Ciprofloxacin Gentamicin [...] LC - [facility] LB SEE REPORT - Venetian Blind 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 Id information not found for OBX-specific type proof reproducer legend Reason For Referral No Information Problems Problem Type SNOMED Code ICD Code Onset Dates Problem Status W/U Status Risk Notes Problem Foot ulcer due to type 2 diabetes mellitus (4512993726285) Type 2 diabetes mellitus with foot ulcer (E11.621) Active confirmed Problem Chronic ulcer of foot (683850936) 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 layer exposed (L97.422) Active confirmed Problem Hypertension (21833609) Hypertension (I10) Active confirmed Problem Acquired hallux rigidus (9938328) Hallux rigidus of left foot (M20.22) Active confirmed Problem Ulcer of left foot (disorder) (977698652) Chronic ulcer of left foot limited to breakdown of skin (L97.521) Active confirmed Problem Polyneuropathy due to type 2 diabetes mellitus (814439977) Diabetes mellitus with polyneuropathy (E11.42) Active confirmed Problem Foot ulcer due to type 2 diabetes mellitus (6163273112993) Diabetes mellitus with foot ulcer due to multiple causes (E11.621) Active confirmed Problem 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 confirmed Problem Hallux rigidus (4574437) Hallux rigidus (M20.20) Active confirmed Problem Hyperglycemia due to type 2 diabetes mellitus (163501207865406) Controlled type 2 diabetes mellitus with hyperglycemia (E11.65) Active confirmed Problem Acute osteomyelitis of ankle and/or foot (079591203) Acute osteomyelitis of right ankle or foot (M86.171) Active confirmed Problem Chronic foot ulcer, limited to breakdown of skin, left (L97.521) Active confirmed Problem Foot ulcer, left , with fat layer exposed (L97.522) Active confirmed Problem High cholesterol (33226748) High cholesterol (E78.00) Active confirmed Problem Chronic ulcer of great toe of left foot, limited to breakdown of skin (L97.521) Active confirmed Problem Acute osteomyelitis of ankle and/or foot (085955987) Acute hematogenous osteomyelitis of left foot (M86.072) Active confirmed Problem Non-pressure chronic ulcer of right heel and midfoot with other specified severity (L97.418) Active confirmed Problem Non-pressure chronic ulcer of other part of left foot with other specified severity (L97.528) Active confirmed Problem Ulcer of big toe (disorder) (382663251) Chronic ulcer of great toe of left foot with fat layer exposed (L97.522) Active confirmed Problem Ankle ulcer (450341837) Chronic ulcer of right ankle with fat layer exposed (L97.312) Active confirmed Problem Ankle ulcer (762571983) Ischemic ulcer of right ankle, 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) Active confirmed Problem Chronic ulcer of plantar surface of right midfoot with fat layer exposed (L97.412) Active confirmed Problem Chronic ulcer of left heel (disorder) (8406319940198411 5) Chronic ulcer of left heel limited to breakdown of skin (L97.421) Active confirmed Problem Ischemic ulcer o f left heel with fat layer exposed (L97.422) Active confirmed Encounters Encounter Location Date Provider Diagnosis [facility] [address] [place] [address] 04/26/2024 [facility] [address] [place] [address] 04/28/2024 Natanael Feldman Plan Of Treatment Pending [...] End Date [employer] [address] [address] [place], [place] [id number] Trev Mckeon Self - patient is the insured
--- OUTSIDE RECORDS SUMMARY | 2025-02-20 13:42 | XMS_ITS | Encounter Summary ---
Author Organization [facility] Address [address] [place] [address] Care Team Providers Care Mash Filter Cloth Changer Name Role Phone Natalie Ryan MD Primary Care Provider [phone] Blossom Cody COPY CENTER ASSOCIATE Unavailable [phone] Tres Oleary MD Primary Care Provider [phone] Encounter Details Date Type Department Care Team ([facility] Contact Info) Description 06/15/2024 Abstract [facility] Family Medicine [address] [place] [address] Natalie Ryan MD Social History Tobacco Use [...] Office Visit [facility] [address] [place] [address] Maria Fernanda Olguin NP [address] [place], [place] [address] documented as of this encounter Visit Diagnoses Not on filedocumented in this encounter Care Teams Mash Filter Cloth Changer Relationship Specialty Start Date End Date Natalie Ryan MD PCP - General Family Medicine 09/15/22 01/10/25 Tres Oleary MD [address] [facility] [place], [place] [address] PCP - General Family Medicine 01/11/25 Blossom Cody NP Nurse Practitioner Family Medicine 01/19/24 documented as of this encounter
--- OUTSIDE RECORDS SUMMARY | 2025-02-20 13:42 | XMS_ITS | Encounter Summary ---
Author Organization [facility] Address [address] [place] [address] Care Team Providers Care Metal Solderer Name Role Phone Natalie Ryan MD Primary Care Provider [phone] Blossom Cody APPLE PICKER Unavailable [phone] Tres Oleary MD Primary Care Provider [phone] Encounter Details Date Type Department Care Team ([facility] st Contact Info) Description 05/19/2024 Abstract [facility] [address] [facility] [address] [place] [address] Unallocated, Noms Provider, [address] [place], [place] [address] Social History Tobacco Use Types Packs/Day Years [...] How often do you attend chur or christian services? More than 4 times per year 03/23/2023 Do you belong to any clubs o r organizations such as advent groups, unions, fraternal or athletic groups, or [...] Description 04/24/2025 9:30 AM EST Office Visit [facility] [address] [place] [address] Maria Fernanda Olguin NP [address] [place], [place] [address] documented as of this encounter Visit Diagnoses Not on filedocumented in this encounter Care Teams Metal Solderer Relationship Specialty Start Date End Date Natalie Ryan MD PCP - General Family Medicine 09/15/22 01/10/25 Tres Oleary MD [address] [facility] [place] [place], [place] [address] PCP - General Family Medicine 01/11/25 Blossom Cody NP Nurse Practitioner Family Medicine 01/19/24 documented as of this encounter
--- OUTSIDE RECORDS SUMMARY | 2025-02-20 13:42 | XMS_ITS | Encounter Summary ---
Author Organization [facility] Address [address] [place] [address] Care Team Providers Care Production Control Technologist Name Role Phone Natalie Ryan MD Primary Care Provider Blossom Cody SECOND CRUSHER Unavailable [phone] Tres Oleary MD Primary Care Provider Encounter Details Date Type Department Care Team ([facility] Contact Info) Description 08/02/2023 Abstract [facility] [address] [place] [address] Chidi Moore, DPEdwina [address] [place], [place] [address] Social History Tobacco Use Types Packs/Day Years [...] How often do you attend chur or congregational services? More than 4 times per year 03/23/2023 Do you belong to any clubs o r organizations such as judaism groups, unions, fraternal or athletic groups, or [...] place to sleep or slept in a custodial (including now)? Patient refused 03/23/2023 Sex and [...] Office Visit [facility] [address] [place] [address] Maria Fernanda Olguin NP [address] [place], [place] [address] documented as of this encounter Visit Diagnoses Not on filedocumented in this encounter Care Teams Production Control Technologist Relationship Specialty Start Date End Date Natalie Ryan MD PCP - General Family Medicine 09/15/22 01/10/25 Tres Oleary MD [address] [facility] [place], [place] [address] PCP - General Family Medicine 01/11/25 Blossom oCdy NP Nurse Practitioner Family Medicine 01/19/24 documented as of this encounter
--- OUTSIDE RECORDS SUMMARY | 2025-02-20 13:42 | XMS_ITS | Encounter Summary ---
Author Organization [facility] Healthcare Address [address] [place] [address] Care Team Providers Care Flight Instructor Name Role Phone Natalie Ryan MD Primary Care Provider [phone] Blossom Cody PATIENT REPRESENTATIVE Unavailable Tres Oleary MD Primary Care Provider [phone] Encounter Details Date Type Department Care Team ([facility] st Contact Info) Description 01/27/2024 Orders Only [facility] Family Medicine [address] [place] [address] Link Ortega NP [address] [place] [place] [address] Social History Tobacco Use Types [...] How often do you attend chur or zoroastrianism services? More than 4 times per year 03/23/2023 Do you belong to any clubs o r organizations such as oriental orthodox groups, unions, fraScopial Fashion or athletic groups, or school groups? Patient [...] EST Office Visit [facility] [address] [place] [address] Maria Fernanda Olguin NP [address] [place], [place] [address] documented as of this encounter Procedures Procedure [...] on filedocumented in this encounter Care Teams Flight Instructor Relationship Specialty Start Date End Date [place], Natalie Lozada MD PCP - General Family Medicine 09/15/22 01/10/25 Tres Oleary MD [address] [place], [place] [address] PCP - General Family Medicine 01/11/25 Blossom Cody NP Nurse Practitioner Family Medicine 01/19/24 documented as of this encounter
--- OUTSIDE RECORDS SUMMARY | 2025-02-20 13:42 | XMS_ITS | Encounter Summary ---
Author Organization [facility] Healthcare Address [address] [place] [address] Care Team Providers Care Keno Terminal Operator Name Role Phone Natalie Ryan MD Primary Care Provider [phone] Blossom Cody CARDIOLOGY FELLOW Unavailable [phone] Tres Oleary MD Primary Care Provider [phone] Encounter Details Date Type Department Care Team ([facility] st Contact Info) Description 10/20/2023 Orders Only [facility] Family Medicine [address] [place] [address] Link Ortega NP [address] [place] [address] Social History Tobacco Use Types [...] How often do you attend chur or baptism services? More than 4 times per year 03/23/2023 Do you belong to any clubs o r organizations such as orthodoxy groups, unions, fraChristiana Care Health Systems or athletic groups, or school groups? Patient [...] EST Office Visit [facility] [address] [place] [address] Maria Fernanda Olguin NP [address] [place], [place] [address] documented as of this encounter Procedures Procedure [...] on filedocumented in this encounter Care Teams Keno Terminal Operator Relationship Specialty Start Date End Date Shelby, Natalie Lozada MD PCP - General Family Medicine 09/15/22 01/10/25 Tres Oleary MD [address] [place], [place] [address] PCP - General Family Medicine 01/11/25 Blossom Cody NP Nurse Practitioner Family Medicine 01/19/24 documented as of this encounter
--- OUTSIDE RECORDS SUMMARY | 2025-02-20 13:42 | XMS_ITS | Clinical Summary ---
Author Organization [employer] [facility] Address [id number] [address] [place] [address] Care Team Providers Care Admitting Supervisor Name Role Phone Natalie Ryan MD Primary Care Provider Unavai lable Allergies No known active allergies Medications insulin [...] each 8 Active lancets (ACCU-CHEK MULTICLIX LANCET) [facility] blood glucose check 100 each [...] DIRECTED 11 8 Active ONETOUCH VERIO SYSTEM [facility] See Admin Instructions. 0 8 [...] - Tdap) 10/09/1998 COVID-19 Vaccine (3 - 2024-2 6 season) 2025 12/18/2020, 11/27/2020 Influenza Vaccine 01/08/2025 02/13/2020, , [...] 5:45 AM 03/30/2018 7:23 PM Care Teams Admitting Supervisor Relationship Specialty Start Date End Date Natalie Ryan MD PCP - General Family Medicine 03/26/18
--- OUTSIDE RECORDS SUMMARY | 2025-02-20 13:42 | XMS_ITS | Encounter Summary ---
Author Organization [facility] Address [address] [place] [address] Care Team Providers Care Digital Coordinator Name Role Phone Natalie Hernandez MD Primary Care Provider [phone] Blossom Cody BLADE ALIGNER Unavailable [phone] Tres Oleary MD Primary Care Provider [phone] Encounter Details Date Type Department Care Team ([facility] Contact Info) Description 04/26/2024 Clinisync Result Encounter [...] any clubs o r organizations such as jehovah's witness groups, unions, fraternal or athletic groups, or [...] 04/24/2025 9:30 AM EST Office Visit [facility] Medicine [address] [place] [phone] Maria Fernanda Olguin NP [address] [place] [address] documented as of this encounter Procedures Procedure [...] been received and testing has been initiated. [facility] ANAEROBIC CULT, EXTENDED INCUB Organism: Prevotella disiens : [facility] ANAEROBIC CULT, EXTENDED INCUB *ABNORMAL* [facility] ANAEROBIC CULT, EXTENDED INCUB Scant growth TB ANAEROBIC CULT, EXTENDED INCUB Studies at [employer] have confirmed the TB ANAEROBIC CULT, EXTENDED INCUB observations of others who have demonstrated that [facility] ANAEROBIC CULT, EXTENDED INCUB Prevotella, Porphyromonas and Bacteroides species TB ANAEROBIC CULT, EXTENDED INCUB other than Bacteroides fragilis group are routinely [facility] ANAEROBIC CULT, EXTENDED INCUB susceptible to Cefoxitin, Chloramphenicol, and TB ANAEROBIC CULT, EXTENDED INCUB Metronidazole and are usually resistant to Penicillin. [facility] ANAEROBIC CULT, EXTENDED INCUB Prevotella disiens [facility] ANAEROBIC CULT, EXTENDED INCUB O:PREDIS Isolated TB 04/26/2024 10:0 7 AM EST 04/26/2024 12:13 PM EST Narrative [facility] - 05/11/2024 4:08 PM EST us Generic External Data Provider LAB BLOOD ORDERAB LES Final Result [facility] * ANAEROBIC CULTURE (04/26/2024 10:07 AM EST) ANAEROBIC CULTURE Anaerobic Culture [facility] ANAEROBIC CULTURE Holding for possible anaerobes. [facility] ANAEROBIC CULTURE Organism: Prevotella disiens : [facility] ANAEROBIC CULTURE *ABNORMAL* TB ANAEROBIC CULTURE Light growth [facility] ANAEROBIC CULTURE Studies at [facility] have confirmed the [facility] ANAEROBIC CULTURE observations of others who have demonstrated that [facility] ANAEROBIC CULTURE Prevotella, Porphyromonas and Bacteroides species TB ANAEROBIC CULTURE other than Bacteroides fragilis group are routinely [facility] ANAEROBIC CULTURE susceptible to Cefoxitin, Chloramphenicol, and TB ANAEROBIC CULTURE Metronidazole and are usually resistant to Penicillin. [facility] ANAEROBIC CULTURE Prevotella disiens TB ANAEROBIC CULTURE O:PREDIS Isolated [facility] 04/26/2024 10:0 7 AM EST 04/26/2024 12:13 PM EST Narrative CLINISYNC - 05/02/2024 3:08 PM EST Generic External Data Provider LAB BLOOD ORDERAB LES Final Result Performing Organization Address City/[facility]/ZIP Co de Phone Number [facility] * FUNGUS (MYCOLOGY) CULTURE (04/26/2024 10:07 AM EST) FUNGUS (MYCOLOGY) CULTURE Fungus (Mycology) Culture WILL FOLLOW [facility] FUNGUS (MYCOLOGY) CULTURE No yeast or mold isolated after 4 weeks. [facility] FUNGUS (MYCOLOGY) CULTURE Performed at: [facility] FUNGUS (MYCOLOGY) CULTURE [address] [place], [place] [id number] [facility] FUNGUS (MYCOLOGY) CULTURE Satellite Tv Technician Installer: Lalo Everett PhD, Phone: [phone] [facility] 04/26/2024 10:0 7 AM EST 04/26/2024 12:13 PM EST Narrative CLINISYNC - 05/25/2024 12:08 PM EST Comment right foot ulcer us Generic External Data Provider LAB BLOOD ORDERAB LES Final Result Performing Organization Address City/[facility]/ZIP Co de Phone Number [facility] * FUNGUS STAIN (04/26/2024 10:07 AM EST) FUNGUS STAIN Fungus Stain [facility] FUNGUS STAIN SAHQ/Calcofl uor preparation : no fungus observed. [facility] 04/26/2024 10:0 7 AM EST 04/26/2024 12:13 PM EST Narrative [facility]NC - 05/25/2024 12:08 PM EST Comment right foot ulcer Generic External Data Provider LAB BLOOD ORDERAB LES Final Result Performing Organization Address [facility] Co de Phone Number CL[facility]MIKENC [facility] * FUNGUS (MYCOLOGY) CULTURE (04/26/2024 10:07 AM EST) FUNGUS (MYCOLOGY) CULTURE Fungus (Mycology) Culture WILL FOLLOW [facility] FUNGUS (MYCOLOGY) CULTURE No yeast or mold isolated after 4 weeks. [facility] FUNGUS (MYCOLOGY) CULTURE Performed at: [facility] FUNGUS (MYCOLOGY) CULTURE [address] [place], [place] [id number] [facility] FUNGUS (MYCOLOGY) CULTURE Satellite Tv Technician Installer: Lalo Everett PhD, Phone: [phone] [facility] 04/26/2024 10:0 7 AM EST 04/26/2024 12:13 PM EST Narrative CLINISYNC - 05/25/2024 12:08 PM EST Comment right foot fascia for culture Generic External Data Provider LAB BLOOD ORDERAB LES Final Result Performing Organization Address [facility] Phone Number [facility] * FUNGUS STAIN (04/26/2024 10:07 AM EST) FUNGUS STAIN Fungus Stain TB FUNGUS STAIN SHAQ/Calcofl uor preparation : no fungus observed. [facility] 04/26/2024 10:0 7 AM EST 04/26/2024 12:13 PM EST Narrative CLINISYNC - 05/25/2024 12:08 PM EST Comment right foot fascia for culture Generic External Data Provider LAB BLOOD ORDERAB LES Final Result Performing Organization Address [facility] Co de Phone Number [facility] * GRAM STAIN RESULT (04/26/2024 10:07 AM EST) GRAM STAIN RESULT Gram Stain Result TB GRAM STAIN RESULT No white blood cells seen. TB GRAM STAIN RESULT TB GRAM STAIN RESULT Rare gram positive cocci TB GRAM STAIN RESULT Performed at: [facility] TB GRAM STAIN RESULT [address] [place], [place] [id number] TB GRAM STAIN RESULT [employer] Techn[employer] Installer: Lalo Everett PhD, Phone: [phone] [facility] 04/26/2024 10:0 7 AM EST 04/26/2024 12:13 PM EST Narrative [facility]INISYNC - 05/02/2024 3:08 PM EST Generic External Data Provider LAB BLOOD ORDERAB LES Final Result Performing Organization Address City/[facility]/ZIP Co de Phone Number [facility] * AEROBIC CULTURE (04/26/2024 10:07 AM EST) AEROBIC CULTURE Aerobic Culture WILL FOLLOW TB AEROBIC CULTURE TB AEROBIC CULTURE Mixed skin maximiliano [facility] 04/26/2024 10:0 7 AM EST 04/26/2024 12:13 PM EST Narrative CLINISYNC - 05/02/2024 3:08 PM EST Generic External Data Provider LAB BLOOD ORDERAB LES Final Result Performing Organization Address [facility] de Phone Number [facility] * ACID FAST CULTURE (04/26/2024 10:07 AM EST) ACID FAST CULTURE Acid Fast Culture Specimen has been received and testing has been initiated. [facility] ACID FAST CULTURE Negative [facility] ACID FAST CULTURE No acid fast bacilli isolated after 6 weeks. TB ACID FAST CULTURE Performed at: [facility] TB ACID FAST CULTURE [address] [place], [place] [id number] TB ACID FAST CULTURE Satellite T[employer] Technician Installer: Lalo Everett PhD, Phone: [phone] [facility] 04/26/2024 10:0 7 AM EST 04/26/2024 12:13 PM EST Narrative CLINISYNC - 06/10/2024 9:09 AM EST Generic External Data Provider LAB BLOOD ORDERAB LES Final Result [facility] * ACID FAST SMEAR (04/26/2024 10:07 AM EST) ACID FAST SMEAR Acid Fast Smear Negative TB 04/26/2024 10:0 7 AM EST 04/26/2024 12:13 PM EST Narrative [facility]YNC - 06/10/2024 9:09 AM EST us Generic External Data Provider LAB BLOOD ORDERAB LES Final Result [facility] * AFB SPECIMEN PROCESSING (04/26/2024 10:07 AM EST) AFB SPECIMEN PROCESSING AFB Specimen Processing [facility] AFB SPECIMEN PROCESSING Tissue Grinding [facility] 04/26/2024 10:0 7 AM EST 04/26/2024 12:13 PM EST Narrative [facility]ISYNC - 06/10/2024 9:09 AM EST Generic External Data Provider LAB BLOOD ORDERAB LES Final Result Performing Organization Address [facility] de Phone Number [facility] * TISSUE CULTURE (04/26/2024 10:07 AM EST) Pathologist [facility] TISSUE CULTURE Tissue Culture WILL FOLLOW [facility] TISSUE CULTURE [facility] TISSUE CULTURE Specimen has been received and testing has been initiated. TB 04/26/2024 10:0 7 AM EST 04/26/2024 12:13 PM EST Narrative CLINISYNC - 05/11/2024 4:08 PM EST Generic External Data Provider LAB BLOOD ORDERAB LES Final Result Performing Organization Address City/[facility] Co de Phone Number [facility] * GRAM STAIN RESULT (04/26/2024 10:07 AM EST) GRAM STAIN RESULT Gram Stain Result TB GRAM STAIN RESULT No white blood cells seen. [facility] GRAM STAIN RESULT TB GRAM STAIN RESULT No organisms seen TB GRAM STAIN RESULT Performed at: [facility] GRAM STAIN RESULT [address] [place], [place] [id number] TB GRAM STAIN RESULT Satellite T[employer] Technician Installer: Lalo Everett PhD, Phone: [phone] [facility] 04/26/2024 10:0 7 AM EST 04/26/2024 12:13 PM EST Narrative CLINISYNC - 05/11/2024 4:08 PM EST Generic External Data Provider LAB BLOOD ORDERAB LES Final Result Performing Organization Address City/[facility]/ZIP Co de Phone Number [facility] TB * ACID FAST CULTURE (04/26/2024 10:07 AM EST) ACID FAST CULTURE Acid Fast Culture Specimen has been received and testing has been initiated. [facility] ACID FAST CULTURE Negative [facility] ACID FAST CULTURE No acid fast bacilli isolated after 6 weeks. TB ACID FAST CULTURE Performed at: [facility] ACID FAST CULTURE [address] [place], [place] [phone] [facility] ACID FAST CULTURE Satellite Tv Technician Installer: Lalo Everett PhD, Phone: [phone] [facility] 04/26/2024 10:0 7 AM EST 04/26/2024 12:13 PM EST Narrative CLINISYNC - 06/10/2024 9:09 AM EST Comment right foot fascia for culture Generic External Data Provider LAB BLOOD ORDERAB LES Final Result Performing Organization Address City/[facility]/ZIP Co de Phone Number [facility] TB * ACID FAST SMEAR (04/26/2024 10:07 AM EST) ACID FAST SMEAR Acid Fast Smear Negative [facility] 04/26/2024 10:0 7 AM EST 04/26/2024 12:13 PM EST Narrative CLINISYNC - 06/10/2024 9:09 AM EST Comment right foot fascia for culture Generic External Data Provider LAB BLOOD ORDERAB LES Final [facility]B SPECIMEN PROCESSING (04/26/2024 10:07 AM EST) AFB SPECIMEN PROCESSING AFB Specimen Processing [facility] AFB SPECIMEN PROCESSING Tissue Grinding [facility] 04/26/2024 10:0 7 AM EST 04/26/2024 12:13 PM EST Narrative CLINISYNC - 06/10/2024 9:09 AM EST Comment right foot fascia for culture us Generic External Data Provider LAB BLOOD ORDERAB LES Final Result [facility] * XR FOOT RT MIN 3V (04/26/2024 9:03 AM EST) Anatomical Region Laterality Modality Other 04/26/2024 9:03 AM EST Narrative 04/26/2024 9:06 [place] [address] XRay Report Signed Patient: TREV MCKEON MR#: [id number] : 1980 Acct:[id number] Age/Sex: 43 / M ADM Date: 04/25/24 Loc: Attending Dr: Martell Navas Ordering Physician: Martell Navas Date of Service: 04/25/24 Procedure(s): XR foot RT min 3V Accession Number(s): [id number] cc: Martell Navas; NATALIE HERNANDEZ [place] [id number] Patient Name: TREV MCKEON MRN: [id number] date: 1980 Sex: M Assigned Patient Location: Current Patient Location: [place] Accession/Order Number: [id number] Exam Date: 04/25/2024 11:58 Report Date: 04/26/2024 [...] M.D. Signed By: 04/26/24905 DD/ 2 TD/TT: Dispatch Coordinator: Procedure Note Radiology, Radiologist, MD - 04/26/2024 [place] [address] XRay Report Signed Patient: RTEV MCKEON BMR#: [id number] : 1980Acct:[id number] Age/Sex: 43 / MADM Date: 04/25/24 Loc: Attending Dr: Martell Navas Ordering Physician: Martell Navas Date of Service: 04/25/24 Procedure(s): XR foot RT min 3V Accession Number(s): [id number] cc: Martell Navas; NATALIE HERNANDEZ [place] [id number] Patient Name: TREV MCKEON MRN: [id number] date: 1980 Sex: M Assigned Patient Location: Current Patient Location: ID Accession/Order Number: [id number] Exam Date: 04/25/2024 11:58 Report Date: 04/26/2024 [...] Nayak M.D. Signed By:04/26/24905 DD/ 2 TD/TT: Dispatch Coordinator: us Generic External Data Provider [facility] IMAGING Final Result documented in this encounter Visit Diagnoses Not on filedocumented in this encounter Care Teams Digital Coordinator Relationship Specialty Start Date End Date Natalie Hernandez MD PCP - General Family Medicine 09/15/22 01/10/25 Tres Oleary MD [address] [place] [address] PCP - General Family Medicine 01/11/25 Blossom Cody NP Nurse Practitioner Family Medicine 01/19/24 documented as of this encounter
--- OUTSIDE RECORDS SUMMARY | 2025-02-20 13:42 | XMS_ITS | Encounter Summary ---
Author Organization [facility] Address [address] [place] [address] Care Team Providers Care Actuarial Trainee Name Role Phone Natalie Ryan MD Primary Care Provider [phone] Blossom Cody SALT WASHER Unavailable [phone] Tres Oleary MD Primary Care Provider [phone] Encounter Details Date Type Department Care Team ([facility] st Contact Info) Description 09/20/2023 Abstract [facility] acute hospital Podiatry [address] [place] [phone] Chidi Moore, DPEdwina [address] [place], [place] [phone] Social History Tobacco Use Types Packs/Day Years [...] How often do you attend chur or restoration services? More than 4 times [...] Office Visit [facility] [address] [place] [address] Maria Fernanda Olguin NP [address] [place], [place] [id number] documented as of this encounter Visit Diagnoses Not on filedocumented in this encounter Care Teams Actuarial Trainee Relationship Specialty Start Date End Date Natalie Ryan MD PCP - General Family Medicine 09/15/22 01/10/25 Tres Oleary MD [address] [facility] [place], [place] [phone] PCP - General Family Medicine 01/11/25 Blossom Cody NP Nurse Practitioner Family Medicine 01/19/24 documented as of this encounter
--- OUTSIDE RECORDS SUMMARY | 2025-02-20 13:43 | XMS_ITS | Encounter Summary ---
Author Organization [facility] Address [address] [place] [address] Care Team Providers Care Applications Intern Name Role Phone Natalie Ryan MD Primary Care Provider [phone] Blossom Cody GARAGE HELPER Unavailable [phone] Tres Oleary MD Primary Care Provider [phone] Encounter Details Date Type Department Care Team ([facility] st Contact Info) Description 11/15/2023 Abstract [facility] Podiatry [address] [place] [phone] Chidi Moore, DPEdwina [address] [place], [place] [id number] Social History Tobacco Use Types Packs/Day Years [...] How often do you attend chur or mormon services? More than 4 times per year 03/23/2023 Do you belong to any clubs o r organizations such as roman catholic groups, unions, fraternal or athletic groups, or [...] Office Visit [facility] [address] [place] [address] Maria Fernanda Olguin NP [address] [place], [place] [address] documented as of this encounter Visit Diagnoses Not on filedocumented in this encounter Care Teams Applications Intern Relationship Specialty Start Date End Date Natalie Ryan MD PCP - General Family Medicine 09/15/22 01/10/25 Tres Oleary MD [address] [facility] [place], [place] [phone] PCP - General Family Medicine 01/11/25 Blossom Cody NP Nurse Practitioner Family Medicine 01/19/24 documented as of this encounter
--- OUTSIDE RECORDS SUMMARY | 2025-02-20 13:43 | XMS_ITS | Encounter Summary ---
Author Organization [facility] Healthcare Address [address] [place] [address] Care Team Providers Care Wafer Polisher Name Role Phone Natalie Ryan MD Primary Care Provider [phone] Blossom Cody EMERGENCY ROOM SPECIALIST Unavailable [phone] Tres Oleary MD Primary Care Provider [phone] Encounter Details Date Type Department Care Team ([facility] st Contact Info) Description 08/21/2024 Orders Only [facility] Family Medicine [address] [place] [address] Link Ortega NP [address] [facility] [place] [address] Social History Tobacco Use Types [...] How often do you attend chur or mandaen services? More than 4 times per year 03/23/2023 Do you belong to any clubs o r organizations such as mandaen groups, unions, fraKIDOZ or athletic groups, or school groups? Patient [...] Office Visit [facility] [address] [place] [phone] Maria Fernanda Olguin NP [address] [place], [place] [address] documented as of this encounter Procedures Procedure [...] on filedocumented in this encounter Care Teams Wafer Polisher Relationship Specialty Start Date End Date Shelby, Natalie Lozada MD PCP - General Family Medicine 09/15/22 01/10/25 Tres Oleary MD [address] [place], [place] [phone] PCP - General Family Medicine 01/11/25 Blossom Coyd NP Nurse Practitioner Family Medicine 01/19/24 documented as of this encounter
--- OUTSIDE RECORDS SUMMARY | 2025-02-20 13:43 | XMS_ITS | Encounter Summary ---
Author Organization [facility] Healthcare Address [address] [place] [address] Care Team Providers Care Naturopath Name Role Phone Natalie Ryan MD Primary Care Provider [phone] Blossom Cody MISSILE CONTROL PILOT Unavailable [phone] Tres Oleary MD Primary Care Provider [phone] Encounter Details Date Type Department Care Team ([facility] Contact Info) Description 12/24/2023 Orders Only [facility] Family Medicine [address] [place] [address] Terence Glass MD [address] [place] [address] Social History Tobacco Use Types [...] How often do you attend chur or hinduism services? More than 4 times per year 03/23/2023 Do you belong to any clubs o r organizations such as uatsdin groups, unions, fraternal or athletic groups, or [...] 04/24/2025 9:30 AM EST Office Visit [facility] [address] [facility] [place] [address] Maria Fernanda Olguin NP [address] [facility] [place], [place] [address] documented as of this encounter Procedures Procedure [...] on filedocumented in this encounter Care Teams Naturopath Relationship Specialty Start Date End Date Wonderly, Natalie Lozada MD PCP - General Family Medicine 09/15/22 01/10/25 Tres Oleary MD [address] [facility], [place] [address] PCP - General Family Medicine 01/11/25 Blossom Cody NP Nurse Practitioner Family Medicine 01/19/24 documented as of this encounter
--- OUTSIDE RECORDS SUMMARY | 2025-02-20 13:43 | XMS_ITS | Encounter Summary ---
Author Organization [facility] Healthcare Address [address] [place] [address] Care Team Providers Care Sas Developer Analyst Name Role Phone Natalie Ryan MD Primary Care Provider [phone] Blossom Cody DIAGNOSTIC RADIOLOGIC TECHNOLOGIST Unavailable [phone] Tres Oleary MD Primary Care Provider [phone] Encounter Details Date Type Department Care Team ([facility] Contact Info) Description 08/16/2024 Orders Only [facility] Family Medicine [address] [place] [address] Terence Glass MD [address] [place] [address] Social History Tobacco Use Types [...] How often do you attend chur or jainism services? More than 4 times per year [...] 04/24/2025 9:30 AM EST Office Visit [facility] [address] [facility] [place] [address] Maria Fernanda Olguin NP [address] [facility] [place], [place] [phone] documented as of this encounter Procedures Procedure [...] on filedocumented in this encounter Care Teams Sas Developer Analyst Relationship Specialty Start Date End Date Wonderly, Natalie Lozada MD PCP - General Family Medicine 09/15/22 01/10/25 Tres Oleary MD [address] [facility] [place], [place] [phone] PCP - General Family Medicine 01/11/25 Blossom Cody NP Nurse Practitioner Family Medicine 01/19/24 documented as of this encounter
--- OUTSIDE RECORDS SUMMARY | 2025-02-20 13:43 | XMS_ITS | Clinical Summary ---
Author Organization [facility] Address [address] [place] [address] Care Team Providers Care Vegetable Washer Name Role Phone Blossom Cody TONGUE AND QUARTER STITCHER Unavailable [phone] Tres Oleary MD Primary Care Provider [phone] Allergies No known active allergies Medications aspirin [...] under the skin Daily 10/27/19 24 Active lisinopril 30 MG tabletIndications:Ess ential hypertension Take 1 tablet (30 mg) by mouth Daily 90 tablet 1 04/19/20 24 Active traZODone (Desyrel) 100 MG tabletIndications:Dep ressed mood,Insomnia, unspecified type Take 1 tablet (100 mg) by mouth as needed at bedtime for sleep 30 tablet 1 02/01/20 25 Active atorvastatin (Lipitor) 40 MG tabletIndications:Pur e hyperglyceridemia Take 1 tablet (40 mg) by mouth Daily 90 tablet 3 02/01/20 25 Active atorvastatin (Lipitor) 40 MG tabletIndications:Pur e hyperglyceridemia Take 1 tablet (40 mg) by mouth Daily 90 tablet 3 02/28/20 24 025 Discontin ued(Reord er) traZODone (Desyrel) 100 MG tabletIndications:Dep ressed mood,Insomnia, unspecified type Take 1 tablet (100 mg) by mouth as needed at bedtime for sleep 30 tablet 1 07/20/19 25 025 Discontin ued(Reord er) Active Problems Problem Noted Date Diagnosed Date Amputation of toe, traumatic, left, sequela (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); Depressed mood; Insomnia, unspecified type; Pure hyperglyceridemia ; Diabetic polyneuropathy associated with type 2 diabetes mellitus (HCC); Diabetic neuropathic arthropathy (HCC); Diabetic autonomic neuropathy associated with type 2 diabetes mellitus (HCC); Essential hypertension; 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, sequela (HHS-HCC); Amputation of toe, traumatic, left, sequela (HHS-HCC); Arthritis of left foot; Morbid obesity (CMS-HCC); Type 2 diabetes mellitus with hyperglycemia, with long-term current use of insulin (HCC); Lipoprotein deficiency disorder ; Hypertriglyceridemia ; Dyslipidemia ; Vitamin B 12 deficiency; Poorly controlled diabetes mellitus (HCC) 01/31/2025 Bamboo flowsheet [facility] [address] [place] [address] Maria Fernanda Olguin NP 01/31/2025 Travel from Last 3 Months Immunizations Immunization [...] drink = 0.6 oz pur e alcohol) caffeine: 2-3 cups daily Humiliation, Afraid, Rape, and Kick questionnair e [...] week 03/23/2023 How often do you attend [facility] or pentecostalism services? More than 4 times per year [...] you have a drink containing alc ohol? 2-3 times a week 01/31/2025 Q2: How many drinks containi ng alcohol do you have on a typical day when you are drinking? 1 or 2 01/31/2025 Q3: How often do you have si x or more drinks on one occasion? Never 01/31/2025 Overall Financial Resource Strain (CARDIA) Answe r [...] place to sleep or slept in a retirement (including now)? Patient refused 03/23/2023 Sex and Gender Information Value Date Recorded Sex Assigned at Not on file Legal Sex Male 6:33 PM EDT Gender Identity Not on file Sexual Orientation Not on file Last Filed Vital Signs Vital Sign Reading Time Taken Comments Blood Pressure 118/72 01/31/2025 9:20 AM EDT Pulse 82 01/31/2025 9:20 AM EDT Temperature - - Respiratory Rate - - Oxygen Saturation 98% 01/31/2025 9:20 AM EDT Inhaled Oxygen Concentration - - Weight 173 kg (381 lb 9.6 oz) 01/31/2025 9:20 AM EDT Height 181.6 cm (5' 11.5 ) 01/31/2025 9:20 AM ED T Body Mass Index 52.48 01/31/2025 9:20 AM EDT Plan of Treatment Upcoming Encounters Date Type Department Care Team (Late st Contact Info) Description 04/24/2025 9:30 AM EST Office Visit [facility] [address] [place] [id number] Maria Fernanda Olguin NP [address] [place], [place] [id number] Health Maintenance Due Date Last Done Comments CT Colonography 1979 Colonoscopy 1979 FIT-DNA 1979 FIT 1979 FOBT 1980 Sigmoidoscopy 1979 Diabetes: Urine Protein Screening 03/24/2024 03/24/2023, 01/08/2022, 12/27/2020, Additional history exists Diabetes: Hemoglobin A1C 11/20/2024 025, 01/26/2024, 10/19/2023, Additional history exists Influenza Vaccine (#1) 2025 4, 03/24/2023, 03/28/2021, Additional history exists Postponed from 01/08/2025 (Patient Refused) Colorectal Cancer Screening 02/02/2026 Postponed from 1979 (Patient Refused) Diabetes: Retinopathy Screening 08/15/2026 08/15/2024, 07/27/2023, 07/25/2021, Additional history exists Goals Goal Patient Goal Type Associated Problems Recent Progress Patient-Stated? Author Help patient manage antidepressant medication Care Plan Patient on antidepressant monitoring plan No Maria Fernanda Olguin NP Baseline PHQ-9 Care Plan Baseline PHQ-9 No Maria Fernanda Olguin NP Procedures Procedure Name Priority Date/Time Associated Diagnosis Comments HEMOGLOBIN A1C Routine 08/21/2024 10:48 AM EDT DIABETIC RETINOPATHY SCREENING - OU - BOTH EYES Routine 08/15/2024 3:07 PM EDT MICROALBUMIN / CREATININE URINE RATIO Routine 03/24/2023 10:30 AM EST Diabetic autonomic neuropathy associated with type 2 diabetes mellitus (HCC) Diabetic polyneuropathy associated with type 2 diabetes mellitus (HCC) from Last 3 Months or Most Recently [...] 03/25/2023 2:51 PM EST SPLIT 03/24/2023 FROM [id number] Resulting Agency Comment Performing Organization Information Site ID: [id number] Name: [facility] Address: [address] [place] [address], [address] [place] [id number] Director: Mauro Handley MD Maria Fernanda Olguin NP LAB URINE ORDERABLES Final Result [facility] from Last 3 Months or Most Recently Relevant to Health Maintenance Additional Health Concerns Active Problems Noted Date Diagnosed Date Patient on antidepressant monitoring plan 2024 Baseline PHQ-9 01/31/2025 Insurance [employer] Care Teams Vegetable Washer Relationship Specialty Start Date End Date Tres Oleary MD [address] [place] [address] PCP - General Family Medicine 01/11/25 Blossom Cody NP Nurse Practitioner Family Medicine 01/19/24
--- OUTSIDE RECORDS SUMMARY | 2025-02-20 13:43 | XMS_ITS | Encounter Summary ---
Author Organization [facility] Address [address] [place] [address] Care Team Providers Care Finishing Lab Technician Name Role Phone Eric Hernandez MD Primary Care Provider [phone] Blossom Cody STORY WRITER Unavailable [phone] Tres Oleary MD Primary Care Provider [phone] Encounter Details Date Type Department Care Team ([facility] Contact Info) Description 11/02/2023 Clinisync Result Encounter [...] Visit [facility] [address] [place] [address] Maria Fernanda Olguin NP [address] [place] [address] documented as of this encounter Procedures Procedure Name Priority Date/Time Associated Diagnosis Comments XR FOOT RT MIN 3V 11/02/2023 1:1 0 PM EDT documented in this encounter Results * XR FOOT RT MIN 3V (11/02/2023 1:10 PM EDT) Anatomical Region Laterality Modality Other 11/02/2023 1:10 PM EDT Narrative 11/02/2023 1:12 [place] [address] XRay Report Signed Patient: TREV MCKEON MR#: [id number] : 1980 Acct:[id number] Age/Sex: 43 / M ADM Date: 11/02/23 Loc: Attending Dr: Alex Johnson D.P.M. Ordering Physician: Alex Johnson D.P.M. Date of Service: 11/02/23 Procedure(s): XR foot RT min 3V Accession Number(s): [id number] cc: Alex Johnson D.P.M.; ERIC HERNANDEZ [facility] [place] [id number] Patient Name: TREV MCKEON MRN: [id number] date: 1980 Sex: M Assigned Patient Location: Current Patient Location: Accession/Order Number: [id number] Exam Date: 11/02/2023 11:13 Report Date: 11/02/2023 [...] Signed By: 11/02/23 1312 DD/ 1310 TD/TT: Tool And Die Maker/Designer: Procedure Note Radiology, Radiologist, MD - 11/02/2023 [place] [address] XRay Report Signed Patient: TREV MCKEON BMR#: [id number] : 1980Acct:[id number] Age/Sex: 43 / MADM Date: 11/02/23 Loc: Attending Dr: Alex Johnson D.P.M. Ordering Physician: Alex Johnson D.P.M. Date of Service: 11/02/23 Procedure(s): XR foot RT min 3V Accession Number(s): [id number] cc: Alex Johnson D.P.M.; ERIC HERNANDEZ [place] [id number] Patient Name: TREV MCKEON MRN: [id number] date: 1980 Sex: M Assigned Patient Location: Current Patient Location: Accession/Order Number: [id number] Exam Date: 11/02/2023 11:13 Report Date: 11/02/2023 [...] M.D. Signed By:11/02/23 1312 DD/ 1310 TD/TT: Tool And Die Maker/Designer: us Generic External Data Provider [facility] Final Result documented in this encounter Visit Diagnoses Not on filedocumented in this encounter Care Teams Finishing Lab Technician Relationship Specialty Start Date End Date Eric Hernandez MD PCP - General Family Medicine 09/15/22 01/10/25 Tres Oleary MD [address] [place] [address] PCP - General Family Medicine 01/11/25 Blossom Cody NP Nurse Practitioner Family Medicine 01/19/24 documented as of this encounter
--- OUTSIDE RECORDS SUMMARY | 2025-02-20 13:45 | XMS_ITS | CCD ---
Author Organization [facility] Care Team Providers Care Athletic Monitor Name Role Phone Link Ortega Unavailable NATANAEL [...] Lozada Primary Care Unavailable HIGHLANDER, NATANAEL Marsk Attending Unavailable HIGHLANDER, NATANAEL Marks Admitting Unavailable [...] Provider MD Natalie Hernandez Primary Care Provider Natalie Hernandez MD Primary Care Provider Blossom Cody NP Unavailable [phone] Natalie Hernandez Primary Care Unavailable Highlander, Natanael Marks Admitting Unavailable Highlander, Natanael Marks Attending Unavailable Wondersara, Natalie Primary Care Unavailable Damon Clraos Admitting Unavailable Damon Claros Attending Unavailable Natalie Hernandez MD Primary Care Provider Natanael Feldman DPM Attending Provider Natalie Hernandez MD Primary Care Provider Blossom Cody NP Unavailable Link Ortega APRN Attending Provider [phone] Sharif BURGER-CMaria Fernanda Primary Care Provider Tres Oleary MD Primary Care Provider MARIA FERNANDA GRANADOS Attending Unavailable BLOSSOM CODY Attending Unavailable MARIA FERNANDA GRANADOS Attending Unavailable BLOSSOM CODY Attending Unavailable Medications [...] 1 tablet Orally Once a day Active dapagliflozin 10 mg oral tablet (20 sources) Sodium-Glucose Cotransporter 2 Inhibitor Start: 10-19-2023 End: 10-19-2024 take 1 tablet by mouth once daily in the morning Dapagliflozin Propanediol (Farxiga) 10 mg tablet Active 10 MG PO Every morning August 21, 2024 9:32am Complies with drug [...] pen Active 46 UNIT SUBCUT Twice daily November 27, 2024 10:41am Complies with drug [...] unit/mL s olution Active 0 SUBCUT .COMPLEX 75 August 21, 2024 9:34am subcutaneously; 1:4 carb [...] GLP-1 Receptor Agonist Start: 10-19-2023 End: 10-25-2024 inject 1.8 mg by subcutaneous injection once [...] day(s) Active urea 400 mg/ml topical cream (15 sources) Start: 12-01-2023 End: 10-19-2024 urea (Carmol) 40 % cream KENNY LY TO THE AFFECTED AREA ON BOTH FEET [...] every eight hours as needed for pain oxyCODONE-acetaminoph en (Percocet) 5-325 MG tablet TAKE 1 TABLET BY MOUTH EVERY 8 HOURS FOR 7 DAYS NEEDED FOR PAIN 0 05/17/2023 06/16/2023 Discontinued (Therapy completed) ampicillin 2000 mg / sulbactam 1000 mg injection (3 sources) Penicillin-class Antibacterial, beta Lactamase Inhibitor Start: 06-14-2024 End: 08-21-2024 inject 3 g by intramuscular injection every six hours Ampicillin-Sulbactam (Unasyn) 3 gram recon soln Discontinued 3 GM IM Every 6 hours June 14, 2024 1:00am August 21, 2024 9:08am atorvastatin 40 mg oral tablet (20 sources) HMG-CoA Reductase Inhibitor Start: 02-08-2023 End: 01-31-2025 take 1 tablet by mouth once daily atorvastatin (Lipitor) 40 MG tablet Indications: Pure hyperglyceridemia Take 1 tablet (40 mg) by mouth Daily 90 tablet 3 02/28/2024 01/31/2025 Discontinued (Reorder) cephalexin 500 mg oral capsule (2 sources) [...] 14, 2024 1:00am August 21, 2024 9:09am traZODone hydrochloride 100 mg oral tablet (15 sources) Serotonin Reuptake Inhibitor Start: 06-14-2024 End: 01-31-2025 traZODone (Desyrel) 100 MG tablet Indications: Depressed mood , Insomnia, unspecified type Take 1 tablet (100 mg) by mouth as needed at bedtime for sleep 30 tablet 1 07/19/2024 01/31/2025 Discontinued (Reorder) Problems Active Problems Problem Classification Problem Date [...] Resolved: 01-06-2022 Chronic Miscellaneous mental health disorders (4 sources) Depressed mood; Translations: [Other symptoms and [...] 10-02-2022 10-02-2022 Chronic Open wounds of extremities (20 sources) [...] sources) Long-term current use of insulin; Translations: [long-term (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] 06-17-2023 Episodic Other aftercare (4 sources) long-term (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 Onset: 01-06-2022 Resolved: 01-06-2022 Episodic Other aftercare (2 sources) Drug therapy finding; Translations: [meterman (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 antibiotics] 06-14-2024 Episodic Other aftercare (1 source) meterman (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 antibiotics; Translations: [Long-term (current) [...] [Nasal congestion] 06-16-2023 Episodic Residual codes; unclassified (4 sources) Insomnia; Translations: [Insomnia, unspecified] 07-19-2024 Episodic Unclassified (2 sources) Patient on antidepressant monitoring plan Onset: 01-31-2025 01-31-2025 Unclassified (2 sources) Baseline PHQ-9 Onset: 01-31-2025 01-31-2025 Past or Other Problems Problem Classification Problem [...] 06-17-2023 10-02-2022 Chronic Other infections; including parasitic (20 sources) Personal [...] Test Name Value Interpretation Reference Range Facility ALBUMIN, RANDOM URINE W/CREA Aren 02-01-2025 ALBUMIN, URINE 3.1 mg/dL Normal See Note: [facility] Comment on above: Result Comment: Refe rence Range: Reference Range Not established Performed By: #### 3 6127, 6517, 927, 03628, 7600 #### [facility] [address], [address] [place] [address] Loan Review Analyst: Mauro Handley MD #### [id number] #### [facility] [address] [place] [phone] Loan Review Analyst: Emeli Bai ALBUMIN/CREATININE RATIO, RANDOM URINE 61 mg/g creat High <30 [facility] Comment on above: Result Comment: The ADA defines abnormalities in albumin excretion as follows: Albuminuria Category Result (mg/g creatinine) Normal to Mildly increased <30 Moderately increased 30-299 Severely increased > OR = 300 The ADA recommends that at least two of three specimens collected within a 3-6 month period be abnormal before considering a patient to be within a diagnostic category. Performed By: #### 3 6127, 6517, 927, 69415, 7600 #### [facility] [address], [address] [place] [address] Loan Review Analyst: Mauro Handley MD #### [id number] #### [facility] [address] [place] [phone] Loan Review Analyst: Emeli Bai Creatinine (U) [Mass/Vol] 51 mg/dL Normal 20-320 [facility] Comment on above: Performed By: #### 3 6127, 6517, 927, 83661, 7600 #### [facility] [address], [address] [place] [address] Loan Review Analyst: Mauro Handley MD #### [id number] #### [facility] [address] [place] [phone] Loan Review Analyst: Emeli Bai [facility] 02-01-2025 Albumin [Mass/Vol] 4.4 g/dL Normal 3.6-5.1 [facility] Comment on above: Performed By: #### 3 6127, 6517, 927, 83399, 7600 #### [facility] [address], [address] [place] [address] Loan Review Analyst: Mauro Handley MD #### [id number] #### [facility] [address] [place] [phone] Loan Review Analyst: Emeli Bai Albumin/Globulin [Mass ratio] 1.6 {ratio} Normal 1.0-2.5 [facility] Comment on above: Performed By: #### 3 6127, 6517, 927, 43048, 9080 #### [facility] [address], [address] [place] [address] Loan Review Analyst: Mauro Handley MD #### [id number] #### [facility] [phone] Loan Review Analyst: Emeli Bai ALP [Catalytic activity/Vol] 113 U/L Normal 36-130 [facility] Comment on above: Performed By: #### 3 6127, 6517, 927, 93920, 7600 #### [facility] [address], [address] [place] [address] Loan Review Analyst: Mauro Handley MD #### [id number] #### [facility] [address] [place] [phone] Loan Review Analyst: Emeli Bai ALT [Catalytic activity/Vol] 26 U/L Normal 9-46 [facility] Comment on above: Performed By: #### 3 6127, 6517, 927, 61723, 7600 #### [facility] [address], [address] [place], [place] [phone] Loan Review Analyst: Mauro Handley MD #### [id number] #### [facility] [address] [place] [phone] Loan Review Analyst: Emeli aBi AST [Catalytic activity/Vol] 21 U/L Normal 10-40 [facility] Comment on above: Performed By: #### 3 6127, 6517, 927, 04394, 7600 #### [facility] [address], [address] [place] [address] Loan Review Analyst: Mauro Handley MD #### [id number] #### [facility] [address] [place] [phone] Loan Review Analyst: Emeli Bai Bilirubin [Mass/Vol] 0.5 mg/dL Normal 0.2-1.2 [facility] Comment on above: Performed By: #### 3 6127, 6517, 927, 75283, 7600 #### [facility] [address], [address] [place] [address] Loan Review Analyst: Mauro Handley MD #### [id number] #### [facility] [address] [place] [phone] Loan Review Analyst: Emeli Bai BUN/CREATININE RATIO SEE NOTE: Normal 6-22 [facility] Comment on above: Result Comment: Not Reported: BUN and Creatinine are within reference range. Performed By: #### 3 6127, 6517, 927, 01736, 7600 #### [facility] [address], [address] [place] [address] Loan Review Analyst: Mauro Handley MD #### [id number] #### [facility] [address] [place] [phone] Loan Review Analyst: Emeli Bai Calcium [Mass/Vol] 9.2 mg/dL Normal 8.6-10.3 [facility] Comment on above: Performed By: #### 3 6127, 6517, 927, 98741, 7600 #### [facility] [address], [address] [place] [address] Loan Review Analyst: Mauro Handley MD #### [id number] #### [facility] [address] [place] [phone] Loan Review Analyst: Emeli Bai Chloride [Moles/Vol] 103 mmol/L Normal 98-110 [facility] Comment on above: Performed By: #### 3 6127, 6517, 927, 40947, 7600 #### [facility] [address], [address] [place] [address] Loan Review Analyst: Mauro Handley MD #### [id number] #### [facility] [phone] Loan Review Analyst: Emeli Bai CO2 [Moles/Vol] 26 mmol/L Normal 20-32 [facility] Comment on above: Performed By: #### 3 6127, 6517, 927, 51213, 7600 #### [facility] [address], [address] [place], [place] [address] Loan Review Analyst: Mauro Handley MD #### [id number] #### [facility] [phone] Loan Review Analyst: Emeli aBi Creatinine [Mass/Vol] 0.96 mg/dL Normal 0.60-1.29 [facility] Comment on above: Performed By: #### 3 6127, 6517, 927, 04308, 7600 #### [facility] [address], [address] [place], [place] [address] Loan Review Analyst: Mauro Handley MD #### [id number] #### [facility] [phone] Loan Review Analyst: Emeli Bai GFR/1.73 sq M.predicted among non-blacks MDRD (S/P/Bld) [Vol rate/Area] 99 mL/min/{1.73_m2} Normal > OR = 60 [facility] Comment on above: Performed By: #### 3 6127, 6517, 927, 03620, 7600 #### [facility] [address], [address] [place] [address] Loan Review Analyst: Mauro Handley MD #### [id number] #### [facility] [address] [place] [phone] Loan Review Analyst: Emeli Bai Globulin (S) [Mass/Vol] 2.8 g/dL Normal 1.9-3.7 [facility] Comment on above: Performed By: #### 3 6127, 6517, 927, 48687, 7600 #### [facility] [address], [address] [place] [address] Loan Review Analyst: Mauro Handley MD #### [id number] #### [facility] [phone] Loan Review Analyst: Emeli Bai Glucose [Mass/Vol] 89 mg/dL Normal 65-99 [facility] Comment on above: Result Comment: Fasting reference interval Performed By: #### 3 6127, 6517, 927, 37864, 7600 #### [facility] [address], [address] [place] [address] Loan Review Analyst: Mauro Handley MD #### [id number] #### [facility] [phone] Loan Review Analyst: Emeli Bai Potassium [Moles/Vol] 4.6 mmol/L Normal 3.5-5.3 [facility] Comment on above: Performed By: #### 3 6127, 6517, 927, 74068, 7600 #### [facility] [address], [address] [place], [place] [address] Loan Review Analyst: Mauro Handley MD #### [id number] #### [facility] [phone] Loan Review Analyst: Emeli Bai Protein [Mass/Vol] 7.2 g/dL Normal 6.1-8.1 [facility] Comment on above: Performed By: #### 3 6127, 6517, 927, 65675, 7600 #### [facility] [address], [address] [place] [address] Loan Review Analyst: Mauro Handley MD #### [id number] #### [facility] [address] [place] [phone] Loan Review Analyst: Emeli Bai Sodium [Moles/Vol] 137 mmol/L Normal 135-146 [facility] Comment on above: Performed By: #### 3 6127, 6517, 927, 87465, 7600 #### [facility] [address], [address] [place] [address] Loan Review Analyst: Mauro Handley MD #### [id number] #### [facility] [phone] Loan Review Analyst: Emeli Bai Urea nitrogen [Mass/Vol] 20 mg/dL Normal 7-25 [facility] Comment on above: Performed By: #### 3 6127, 6517, 927, 49153, 7600 #### [facility] [address], [address] [place] [address] Loan Review Analyst: Mauro Handley MD #### [id number] #### [facility] [address] [place] [phone] Loan Review Analyst: Emeli Bai HOUSE ACCOUNT TRACKINGon TRACKING HOUSE ACCOUNT Normal [facility] Comment on above: Result Comment: We w ere unable to identify an account number for the order submitted. If you do not have a [email or web address] account number or if your account information needs to be updated please call [phone] ([phone]) for assistance. To prevent delays in testing and processing of your orders please provide the following information for this order and with every additional order submitted: [facility] account number and account name Client address Client phone and fax number NPI number of ordering physician along with the physician name. Performed By: #### 3 6127, 6517, 927, 86112, 7600 #### [facility] [address], [address] [place], [place] [address] Loan Review Analyst: Mauro Handley MD #### [id number] #### [facility] [address] [place] [phone] Loan Review Analyst: Emeli Bai LIPID PANEL, [facility] - Cholesterol [Mass/Vol] 96 mg/dL Normal <200 [facility] Comment on above: Order Comment: FASTI NG:YES FASTING: YES Performed By: #### 3 6127, 6517, 927, 01994, 7600 #### [facility] [address], [address] [place], [place] [address] Loan Review Analyst: Mauro Handley MD #### [id number] #### [facility] [address] [place] [phone] Loan Review Analyst: Emeli Bai Cholesterol in HDL [Mass/Vol] 24 mg/dL Low > OR = 40 [facility] Comment on above: Order Comment: FASTI NG:YES FASTING: YES Performed By: #### 3 6127, 6517, 927, 67966, 7600 #### [email or web address] [address], [address] [place] [address] Loan Review Analyst: Mauro Handley MD #### [id number] #### [email or web address] [address] [place] [phone] Loan Review Analyst: Emeli Bai Cholesterol in LDL [Mass/Vol] 49 mg/dL Normal [facility] Comment on above: Order Comment: FASTI NG:YES FASTING: YES Result Comment: Refe rence range: <100 Desirable range <100 mg/dL for primary prevention; <70 mg/dL for patients with CHD or diabetic patients with > or = 2 CHD risk factors. LDL-C is now calculated using the Fco calculation, which is a validated novel method providing better accuracy than the Friedewald equation in the estimation of LDL-C. Nick LOUIS et al. SOFIE. 2013;310(19): 6716-1072 (http://education.DealerRater.TheCityGame/faq/PXN655) Performed By: #### 3 6127, 6517, 927, 28538, 7600 #### [facility] [address], [address] [address] Loan Review Analyst: Mauro Handley MD #### [id number] #### [facility] [address] [place] [phone] Loan Review Analyst: Emeli Bai Cholesterol.total/C holesterol in HDL [Mass ratio] 4.0 {ratio} Normal <5.0 [facility] Comment on above: Order Comment: FASTI NG:YES FASTING: YES Performed By: #### 3 6127, 6517, 927, 25853, 7600 #### [facility] [address], [address] [place] [address] Loan Review Analyst: Mauro Handley MD #### [id number] #### [facility] [address] [place] [phone] Loan Review Analyst: Emeli Bai NON HDL CHOLESTEROL 72 mg/dL (calc) Normal <130 [facility] Comment on above: Order Comment: FASTI NG:YES FASTING: YES Result Comment: For patients with diabetes plus 1 major ASCVD risk factor, treating to a non-HDL-C goal of <100 mg/dL (LDL-C of <70 mg/dL) is considered a therapeutic option. Performed By: #### 3 6127, 6517, 927, 14049, 7600 #### [facility] [address], [address] [place] [address] Loan Review Analyst: Mauro Handley MD #### [id number] #### [facility] [address] [place], [place] [phone] Loan Review Analyst: Emeli Bai Triglyceride [Mass/Vol] 147 mg/dL Normal <150 [facility] Comment on above: Order Comment: FASTI NG:YES FASTING: YES Performed By: #### 3 6127, 6517, 927, 83071, 7600 #### [facility] [address], [address] [place] [address] Loan Review Analyst: Mauro Handley MD #### [id number] #### [facility] [phone] Loan Review Analyst: Emeli Bai TSH W/REFLEX TO FT4on 2024 TSH W/REFLEX TO FT4 1.71 mIU/L Normal 0.40-4.50 [facility] Comment on above: Result Comment: Your request to have a duplicate copy faxed has been acknowledged. Queued to: [phone] Performed By: #### 3 6127, 6517, 927, 65581, 7600 #### [facility] [address], [address] [place] [address] Loan Review Analyst: Mauro Handley MD #### [id number] #### [facility] [phone] Loan Review Analyst: Emeli Bai VITAMIN B12on 02-01-2025 Cobalamin (Vitamin B12) [Mass/Vol] 450 pg/mL Normal 200-1100 [facility] Comment on above: Performed By: #### 3 6127, 6517, 927, 14910, 9930 #### [facility] [address], [address] [place] [address] Loan Review Analyst: Mauro Handley MD #### [id number] #### [facility] [phone] Loan Review Analyst: Emeli Jeff 04-26-2024 L Specimen: [id number] Received: 04/26/24 Status: CALEB Gabriel Num: [id number] Spec Type: Surgical Subm Dr: Natanael Feldman,DPM, MS Tissues: A Skin-Other than Cyst, tag, debridement or plastic repair (RT FOOT ULCER) Procedures: HE, Gross/Micro L4 Age/ Patient Sex Location Account Attending Physician Trev Ontiveros 43/M [facility] [id number] Natanael Feldman DPM, SPEC NUM: [id number] RECD: 04/26/24 STATUS: CALEB GABRIEL NUM: [id number] MARTHA: 04/26/[address] [facility] [address]: Natanael Feldman DPM, MS ENTERED: 04/26/24 [facility] DR: Anju,Lab SPEC TYPE: Surgical DEPT: DERRICK PLUNKETT ENTERED BY: [id number] RECV BY: [id number] ORDERED: TYLER, Gross/Micro L4 ORDERED: HE, Gross/Micro L4 Pathological [...] reveal purple-brown to green, softened cut surfaces. Call Worker Person sections are submitted in a single cassette. (1, ss, [id number] A) CPT Codes 17409 Specimen: [id number] Received: 04/26/24 Status: CALEB Alanisrachel Num: [id number] Spec Type: Surgical Subm Dr: Natanael Feldman,KARISHMA, MS Tissues: A Skin-Other than Cyst, tag, debridement or plastic repair (RT FOOT ULCER) Procedures: Yenny SCOTT/Mary Robles Patient: Trev Ontiveros [id number] (Continued) Signed (signatur e on file) Melanie Roca MD 04/27/24 1349 Normal [facility] A1C HEMOGLOBINon 06-09-2023 HbA1c (Bld) [Mass fraction] 8.2 % [facility] Other Glucose - FINGER STICKon Glucose [Mass/Vol] 170 mg/dL [facility] Other HbA1c (Bld) [Mass fraction]o n 06-09-2023 A1C HEMOGLOBIN [facility] Other A1C HEMOGLOBINon 01-04-2023 HbA1c (Bld) [Mass fraction] 8.9 % [facility] Other Glucose - FINGER STICKon Glucose [Mass/Vol] 201 mg/dL [facility] Other HbA1c (Bld) [Mass fraction]o n 01-04-2023 A1C HEMOGLOBIN [facility] Other PROF CHEM 8 (BAS METB)on Anion gap [Moles/Vol] 14.3 mmol/L Normal [facility] Comment on above: Performed By: #### B MP #### [facility] [address] [address] [address] Lauri Todd Calcium [Mass/Vol] 9.4 mg/dL Normal 8.5-10.1 [facility] Comment on above: Performed By: #### B MP #### [facility] [address] [address] [address] Lauri Todd Chloride [Moles/Vol] 101 mmol/L Normal 98-107 [facility] Comment on above: Performed By: #### B MP #### [facility] [address] [address] [address] Lauri Todd CO2 [Moles/Vol] 26.2 mmol/L Normal 21.0-32.0 [facility] Comment on above: Performed By: #### B MP #### [facility] [address] [address] [address] Lauri Todd Creatinine [Mass/Vol] 0.90 mg/dL Normal 0.70-1.30 [facility] Comment on above: Performed By: #### B MP #### [facility] [address] [address] [address] Lauri Todd EGFR-AF GERMAN >60 Normal >=60 [facility] Comment on above: Performed By: #### B MP #### [facility] [address] [address] [address] Lauri Todd EGFR-NON AF GERMAN >60 Normal >=60 [facility] Comment on above: Performed By: #### B MP #### [facility] [address] [place] [address] Dr. Lauri Todd Glucose [Mass/Vol] 146 mg/dL Critically high 74-[address] [facility] Comment on above: Performed By: #### B MP #### [facility] [address] [place] [address] Dr. Lauri Todd Potassium [Moles/Vol] 4.5 mmol/L Normal 3.5-5.1 [facility] Comment on above: Performed By: #### B MP #### [facility] [address] [place] [address] Dr. Lauri Todd Sodium [Moles/Vol] 137 mmol/L Normal 136-145 [facility] Comment on above: Performed By: #### B MP #### [facility] [address] [address] [address] Lauri Todd Urea nitrogen [Mass/Vol] 16.0 mg/dL Normal 7.0-18.0 [facility] Comment on above: Performed By: #### B MP #### [facility] [address] [address] [address] Lauri Todd Urea nitrogen/Creatinine [Mass ratio] 17.8 mg/mg Normal [facility] Comment on above: Performed By: #### B MP #### [facility] [address] [address] [address] Lauri Todd A1C HEMOGLOBINon 06-25-2022 HbA1c (Bld) [Mass fraction] 8.2 % [facility] Other Glucose - FINGER STICKon Glucose [Mass/Vol] 180 mg/dL [facility] Other HbA1c (Bld) [Mass fraction]o n 06-25-2022 A1C HEMOGLOBIN [facility] Other XR FOOT LT MIN 3 VIEWSon [...] by: RAFAEL WHITAKER Date: 2022-05-25 11:52 Normal [facility] A1C HEMOGLOBINon 01-06-2022 HbA1c (Bld) [Mass fraction] 7 % [facility] Other Glucose - FINGER STICKon Glucose [Mass/Vol] 148 mg/dL [facility] Other HbA1c (Bld) [Mass fraction]o n 01-06-2022 A1C HEMOGLOBIN [facility] Other Basic Metabolic Panelon - Anion gap [Moles/Vol] 20 mmol/L Normal 12-20 [facility] Comment on above: Result Comment: Effe ctive 05/15/2019 reference range changed. Performed By: #### B MP #### [facility] [address] [place], [place] [id number] Calcium [Mass/Vol] 10.0 mg/dL Normal 8.6-10.2 [facility] Comment on above: Performed By: #### B MP #### [facility] [address] [place], [place] [id number] Chloride [Moles/Vol] 100 mmol/L Normal 98-107 [facility] Special[facility] Comment on above: Performed By: #### B MP #### [facility] [address] [place], [place] [id number] CO2 [Moles/Vol] 22 mmol/L Normal 20-31 [facility] Special[facility] Comment on above: Performed By: #### B MP #### [facility] [address] [place], [place] [id number] Creatinine [Mass/Vol] 0.8 mg/dL Normal 0.7-1.4 [facility] Comment on above: Performed By: #### B MP #### [facility] [address] [place], [place] [id number] eGFRAA 129 mL/min/1.73m2 Normal >60 [facility] Comment on above: Performed By: #### B MP #### [facility] [address] [place], [place] [id number] eGFRNAA 107 mL/min/1.73m2 Normal >60 [facility] Comment on above: Performed By: #### B MP #### [facility] [address] [place], [place] [id number] Glucose [Mass/Vol] 140 mg/dL High 65-99 [facility] Specialist Comment on above: Result Comment: For FASTING Glucose --- ADA reference ranges: Normal 65-99 mg/dl Prediabetes 100-125 Diabetes >/= 126 Performed By: #### B MP #### [facility] [address] [place], [place] [id number] Potassium [Moles/Vol] 4.3 mmol/L Normal 3.5-5.5 [facility] Specialist Comment on above: Performed By: #### B MP #### [facility] [address] [place] [address], [place] [id number] Sodium [Moles/Vol] 137 mmol/L Normal 135-146 [facility] Algorithm Developer Comment on above: Performed By: #### B MP #### [facility] [address] [place], [place] [id number] Urea nitrogen [Mass/Vol] 17 mg/dL Normal 7-25 [facility] Algorithm Developer Comment on above: Performed By: #### B MP #### [facility] [address] [place], [place] [id number] Vital Signs Date Time Vital Sign Value Performing Clinician Facility 01-31-2025 09:20-0400 Body height 181.6 cm Maria Fernanda Granados TRANSACTION ADVISORY SERVICES MANAGER Work Phone: [facility] 01-31-2025 09:20-0400 Body mass index (BMI) [Ratio] 52.48 kg/m2 Maria Fernanda Granados TRANSACTION ADVISORY SERVICES MANAGER Work Phone: [facility] 01-31-2025 09:20-0400 Body weight 173.09 kg Maria Fernanda Granados TRANSACTION ADVISORY SERVICES MANAGER Work Phone: [facility] 01-31-2025 09:20-0400 Diastolic blood pressure 72 mm[Hg] Maria Fernanda Granados TRANSACTION ADVISORY SERVICES MANAGER Work Phone: [facility] 01-31-2025 09:20-0400 Heart rate 82 /min Maria Fernanda Granados TRANSACTION ADVISORY SERVICES MANAGER Work Phone: [facility] 01-31-2025 09:20-0400 SaO2% (BldA) [Mass fraction] 98 % Maria Fernanda Granados TRANSACTION ADVISORY SERVICES MANAGER Work Phone: [facility] 01-31-2025 09:20-0400 Systolic blood pressure 118 mm[Hg] Maria Fernanda Granados TRANSACTION ADVISORY SERVICES MANAGER Work Phone: [facility] 11-27-2024 10:07-0400 Body height 182.88 cm Maria Fernanda Granados TRANSACTION ADVISORY SERVICES MANAGER-C Work Phone: [facility] 11-27-2024 10:07-0400 Body mass index (BMI) [Ratio] 51.5 kg/m2 Maria Fernanda Granados TRANSACTION ADVISORY SERVICES MANAGER-C Work Phone: [facility] 11-27-2024 10:07-0400 Body weight 172.5 kg Maria Fernanda Granados TRANSACTION ADVISORY SERVICES MANAGER-C Work Phone: [facility] 11-27-2024 10:07-0400 Diastolic blood pressure 74 mm[Hg] Maria Fernanda Granados TRANSACTION ADVISORY SERVICES MANAGER-C Work Phone: [facility] 11-27-2024 10:07-0400 Heart rate 81 /min Maria Fernanda Granados TRANSACTION ADVISORY SERVICES MANAGER-C Work Phone: [facility] 11-27-2024 10:07-0400 Respiratory rate 18 /min Maria Fernanda Granados TRANSACTION ADVISORY SERVICES MANAGER-C Work Phone: [facility] 11-27-2024 10:07-0400 SaO2% (BldA) [Mass fraction] 96 % Maria Fernanda Granados TRANSACTION ADVISORY SERVICES MANAGER-C Work Phone: [facility] 11-27-2024 10:07-0400 Systolic blood pressure 143 mm[Hg] Maria Fernanda Granados TRANSACTION ADVISORY SERVICES MANAGER-C Work Phone: [facility] 10-19-2024 09:51-0400 Body mass index (BMI) [Ratio] 51.08 kg/m2 Maria Fernanda Granados TRANSACTION ADVISORY SERVICES MANAGER Work Phone: [facility] 10-19-2024 09:51-0400 Body weight 168.47 kg Maria Fernanda Granados TRANSACTION ADVISORY SERVICES MANAGER Work Phone: [facility] 10-19-2024 09:51-0400 Diastolic blood pressure 86 mm[Hg] Maria Fernanda Granados TRANSACTION ADVISORY SERVICES MANAGER Work Phone: [facility] 10-19-2024 09:51-0400 Heart rate 76 /min Maria Fernanda Granados TRANSACTION ADVISORY SERVICES MANAGER Work Phone: [facility] 10-19-2024 09:51-0400 Systolic blood pressure 130 mm[Hg] Maria Fernanda Granados TRANSACTION ADVISORY SERVICES MANAGER Work Phone: [facility] 08-21-2024 09:08-0400 Diastolic blood pressure 74 mm[Hg] [facility] 08-21-2024 09:08-0400 Systolic blood pressure 129 mm[Hg] [facility] 08-21-2024 09:07-0400 Body height 182.88 cm [facility] 08-21-2024 09:07-0400 Body mass index (BMI) [Ratio] 50.5 kg/m2 [facility] 08-21-2024 09:07-0400 Body weight 169 kg [facility] 08-21-2024 09:07-0400 Heart rate 87 /min [facility] 08-21-2024 09:07-0400 Respiratory rate 18 /min [facility] 08-21-2024 09:07-0400 SaO2% (BldA) [Mass fraction] 97 % [facility] 07-19-2024 09:57-0400 Diastolic blood pressure 80 mm[Hg] Blossom Lozoyael TRANSACTION ADVISORY SERVICES MANAGER Work Phone: [facility] 07-19-2024 09:57-0400 Systolic blood pressure 138 mm[Hg] Blossom Lozoyael TRANSACTION ADVISORY SERVICES MANAGER Work Phone: [facility] 07-19-2024 09:22-0400 Body mass index (BMI) [Ratio] 50.03 kg/m2 Blossom Glo TRANSACTION ADVISORY SERVICES MANAGER Work Phone: [facility] 07-19-2024 09:22-0400 Body weight 165.02 kg Blossom Glo TRANSACTION ADVISORY SERVICES MANAGER Work Phone: [facility] 07-19-2024 09:22-0400 Heart rate 80 /min Blossomdidier Lozoyael TRANSACTION ADVISORY SERVICES MANAGER Work Phone: [facility] 06-14-2024 14:55-0500 Body height 182.88 cm Natalie Hernandez MD Work Phone: [facility] 06-14-2024 14:55-0500 Body mass index (BMI) [Ratio] 48.8 kg/m2 Natalie Hernandez MD Work Phone: [facility] 06-14-2024 14:55-0500 Body temperature 98.1 [degF] Natalie Hernandez MD Work Phone: [facility] 06-14-2024 14:55-0500 Body weight 163.29 kg Natalie Hernandez MD Work Phone: [facility] 06-14-2024 14:55-0500 Diastolic blood pressure 75 mm[Hg] Natalie Hernandez MD Work Phone: [facility] 06-14-2024 14:55-0500 Heart rate 104 /min Natalie Hernandez MD Work Phone: [facility] 06-14-2024 14:55-0500 Systolic blood pressure 124 mm[Hg] Natalie Hernandez MD Work Phone: [facility] 04-19-2024 09:47-0500 Body mass index (BMI) [Ratio] 52.21 kg/m2 Blossom Lozoyael TRANSACTION ADVISORY SERVICES MANAGER Work Phone: [facility] 04-19-2024 09:47-0500 Body weight 172.19 kg Blossom Glo TRANSACTION ADVISORY SERVICES MANAGER Work Phone: [facility] 04-19-2024 09:47-0500 Diastolic blood pressure 72 mm[Hg] Blossom Glo TRANSACTION ADVISORY SERVICES MANAGER Work Phone: [facility] 04-19-2024 09:47-0500 Heart rate 84 /min Blossom Glo TRANSACTION ADVISORY SERVICES MANAGER Work Phone: [facility] 04-19-2024 09:47-0500 Systolic blood pressure 128 mm[Hg] Blossom Glo TRANSACTION ADVISORY SERVICES MANAGER Work Phone: [facility] 01-26-2024 09:59-0400 Body height 182.88 cm [facility] 01-26-2024 09:59-0400 Body mass index (BMI) [Ratio] 51.2 kg/m2 [facility] 01-26-2024 09:59-0400 Body weight 171.54 kg [facility] 01-26-2024 09:59-0400 Diastolic blood pressure 83 mm[Hg] [facility] 01-26-2024 09:59-0400 Heart rate 81 /min [facility] 01-26-2024 09:59-0400 Respiratory rate 18 /min [facility] 01-26-2024 09:59-0400 SaO2% (BldA) [Mass fraction] 94 % [facility] 01-26-2024 09:59-0400 Systolic blood pressure 155 mm[Hg] [facility] 01-19-2024 11:00-0400 Body mass index (BMI) [Ratio] 51.82 kg/m2 Blossom Cody TRANSACTION ADVISORY SERVICES MANAGER Work Phone: [facility] 01-19-2024 11:00-0400 Body weight 170.91 kg Blossom Lozoyael TRANSACTION ADVISORY SERVICES MANAGER Work Phone: [facility] 01-19-2024 11:00-0400 Diastolic blood pressure 78 mm[Hg] Blossom Lozoyael TRANSACTION ADVISORY SERVICES MANAGER Work Phone: [facility] 01-19-2024 11:00-0400 Heart rate 84 /min Blossom Lozoyael TRANSACTION ADVISORY SERVICES MANAGER Work Phone: [facility] 01-19-2024 11:00-0400 Systolic blood pressure 136 mm[Hg] Blossom Lozoyael TRANSACTION ADVISORY SERVICES MANAGER Work Phone: [facility] 10-19-2023 11:31-0400 Body height 182.88 cm [facility] 10-19-2023 11:31-0400 Body mass index (BMI) [Ratio] 51.7 kg/m2 [facility] 10-19-2023 11:31-0400 Body weight 172.87 kg [facility] 10-19-2023 11:31-0400 Diastolic blood pressure 83 mm[Hg] [facility] 10-19-2023 11:31-0400 Heart rate 74 /min [facility] 10-19-2023 11:31-0400 Respiratory rate 18 /min [facility] 10-19-2023 11:31-0400 SaO2% (BldA) [Mass fraction] 97 % [facility] 10-19-2023 11:31-0400 Systolic blood pressure 149 mm[Hg] [facility] 06-16-2023 11:33-0500 Diastolic blood pressure 84 mm[Hg] Blossom Lozoyael TRANSACTION ADVISORY SERVICES MANAGER Work Phone: [facility] 06-16-2023 11:33-0500 Systolic blood pressure 154 mm[Hg] Blossom Cody TRANSACTION ADVISORY SERVICES MANAGER Work Phone: [facility] 06-16-2023 11:02-0500 Body mass index (BMI) [Ratio] 52.12 kg/m2 Blossom Cody TRANSACTION ADVISORY SERVICES MANAGER Work Phone: [facility] 06-16-2023 11:02-0500 Body weight 171.91 kg Blossom Cody TRANSACTION ADVISORY SERVICES MANAGER Work Phone: [facility] 06-16-2023 11:02-0500 Heart rate 92 /min Blossom Cody TRANSACTION ADVISORY SERVICES MANAGER Work Phone: [facility] 06-09-2023 08:45-0500 Body height Tondra Mapus Other [facility] Other 06-09-2023 08:45-0500 Body height 182.88 cm MD Natalie Hernandez Work Phone: [facility] 06-09-2023 08:45-0500 Body mass index (BMI) [Ratio] 51.33 kg/m2 Tondra Mapus Other [facility] Other 06-09-2023 08:45-0500 Body weight 171.69 kg Tondra Mapus Other [facility] Other 06-09-2023 08:45-0500 Body weight 171.68 kg MD Natalie Hernandez Work Phone: [facility] 06-09-2023 08:45-0500 Diastolic blood pressure 80 mm[Hg] Tondra Mapus Other [facility] 06-09-2023 08:45-0500 Respiratory rate 18 /min Tondra Mapus Other [facility] Other 06-09-2023 08:45-0500 SaO2% (BldA) [Mass fraction] 94 % Tondra Mapus Other [facility] Other 06-09-2023 08:45-0500 Systolic blood pressure 148 mm[Hg] Tondra Mapus Other [facility] 01-04-2023 08:45-0400 Body height Tondra Mapus Other [facility] Other 01-04-2023 08:45-0400 Body mass index (BMI) [Ratio] 51.37 kg/m2 Tondra Mapus Other [facility] Other 01-04-2023 08:45-0400 Body weight 171.82 kg Tondra Mapus Other [facility] Other 01-04-2023 08:45-0400 Diastolic blood pressure 85 mm[Hg] Tondra Mapus Other [facility] Other 01-04-2023 08:45-0400 Respiratory rate 18 /min Tondra Mapus Other [facility] Other 01-04-2023 08:45-0400 SaO2% (BldA) [Mass fraction] 98 % Tondra Mapus Other [facility] Other 01-04-2023 08:45-0400 Systolic blood pressure 150 mm[Hg] Tondra Mapus Other [facility] Other 06-25-2022 09:45-0500 Body height Tondra Mapus Other [facility] Other 06-25-2022 09:45-0500 Body mass index (BMI) [Ratio] 51.14 kg/m2 Tondra Mapus Other [facility] Other 06-25-2022 09:45-0500 Body weight 171.05 kg Tondra Mapus Other [facility] Other 06-25-2022 09:45-0500 Diastolic blood pressure 80 mm[Hg] Tondra Mapus Other [facility] Other 06-25-2022 09:45-0500 Respiratory rate 18 /min Tondra Mapus Other [facility] Other 06-25-2022 09:45-0500 SaO2% (BldA) [Mass fraction] 95 % Tondra Mapus Other [facility] Other 06-25-2022 09:45-0500 Systolic blood pressure 139 mm[Hg] Tondra Mapus Other [facility] Other 01-06-2022 09:45-0400 Body height Tondra Mapus Other [facility] Other 01-06-2022 09:45-0400 Body mass index (BMI) [Ratio] 48.28 kg/m2 Tondra Mapus Other [facility] Other 01-06-2022 09:45-0400 Body weight 161.48 kg Tondra Mapus Other [facility] Other 01-06-2022 09:45-0400 Diastolic blood pressure 71 mm[Hg] Tondra Mapus Other [facility] Other 01-06-2022 09:45-0400 Respiratory rate 20 /min Link Ortega Other [facility] Other 01-06-2022 09:45-0400 SaO2% (BldA) [Mass fraction] 95 % Tondra Mapus Other [facility] Other 01-06-2022 09:45-0400 Systolic blood pressure 124 mm[Hg] Tondra Dayannaus Other [facility] Other Encounters Encounter Date Encounter Type Care Provider Facility Start: 01-31-2025 End: 01-31-2025 [facility] Maria Fernanda Granados NP Work Phone: [facility] Start: 01-31-2025 End: 01-31-2025 Bamboo flowsheet Maria Fernanda Granados NP Work Phone: [facility] Start: 01-31-2025 End: 01-31-2025 Patient encounter status Maria Fernanda Granados NP Work Phone: [facility] Start: 01-31-2025 End: 01-31-2025 Periodic preventive med est patient 40-64yrs Maria Fernanda Granados NP Work Phone: [facility] Comment on above: Wellness examination (Primary Dx); Type 2 diabetes [...] 12 deficiency; Poorly controlled diabetes mellitus (HCC) Start: 01-31-2025 End: 01-31-2025 ambulatory MARIA FERNANDA GRANADOS Not Available Start: 11-27-2024 End: 11-27-2024 ambulatory Maria Fernanda Granados TRANSACTION ADVISORY SERVICES MANAGER-C Work Phone: [facility] Work Phone: Start: 11-27-2024 End: 11-27-2024 Patient encounter procedure Link Ortega 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, sequela ([facility]/HCC); Type 2 diabetes mellitus with hyperglycemia, with long-term current use of insulin ([facility]/HCC); Ulcer of right foot, unspecified ulcer stage (HCC) (CMS/HCC); Poorly controlled diabetes mellitus (CMS/HCC); Dyslipidemia (CMS/HCC); Hypertriglyceridemia ([facility]/HCC); Essential hypertension; Morbid obesity ([facility]/HCC); Amputation of toe, traumatic, left, sequela ([facility]/HCC); Vitamin B 12 deficiency; Depressed mood; Insomnia, unspecified type Start: 07-19-2024 End: 07-19-2024 ambulatory BLOSSOM CODY Not Available Start: 06-14-2024 End: 06-14-2024 ambulatory Natalie Hernandez MD Work Phone: [facility] Work Phone: Start: 06-14-2024 End: 06-14-2024 Patient encounter procedure Natalie Hernandez MD Work Phone: [facility] Physician [facility] Dis Work Phone: Start: 05-30-2024 Non-patient / Non-visit [facility] Physician [facility] Work Phone: Start: 05-30-2024 End: [...] Start: 04-26-2024 End: 04-26-2024 ambulatory Natalie Hernandez Facility:[facility] Start: 04-26-2024 End: 04-26-2024 Departed Referred Natalie Hernandez MD Work Phone: [facility] Start: 04-25-2024 End: 04-27-2024 Clinisync Result Encounter Generic External Data Provider [facility] Unsolicited Start: 04-25-2024 End: 04-27-2024 Clinisync Result Encounter Generic External Data Provider [facility] External Department Unsolicited Start: 04-19-2024 End: 04-19-2024 Bamboo flowsheet Blossom Cody TRANSACTION ADVISORY SERVICES MANAGER Work Phone: [facility] Start: 04-19-2024 End: 04-19-2024 Bamboo flowsheet Blossom Cody TRANSACTION ADVISORY SERVICES MANAGER Work Phone: [facility] Start: 04-19-2024 End: 04-19-2024 Patient encounter status Blossom Cody TRANSACTION ADVISORY SERVICES MANAGER Work Phone: [facility] Start: 04-19-2024 End: 04-19-2024 Periodic preventive med est patient 40-64yrs Blossom Cody TRANSACTION ADVISORY SERVICES MANAGER Work Phone: [facility] Comment on above: Diabetic polyneuropa thy associated with type 2 diabetes mellitus ([facility]/HCC) (Primary Dx); Wellness examination; Type 2 diabetes mellitus with neurological manifestation ([facility]); Essential hypertension; 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, subsequent encounter ([facility]); Dyslipidemia ([facility] Hypertriglyceridemia ([facility]); Poorly controlled diabetes mellitus ([facility]); Type 2 diabetes mellitus with hyperglycemia, with long-term current use of insulin ([facility]); Amputation of toe, traumatic, left, sequela ([facility]); Essential hypertension; Diabetic autonomic neuropathy associated with type 2 diabetes mellitus ([facility]/HCC); Acquired hallux valgus, unspecified laterality; Morbid obesity (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 Work Phone: Start: 01-20-2024 Non-patient / Non-visit [facility] Work Phone: Start: 01-19-2024 End: 01-19-2024 Bamboo flowsheet Blossom Cody TRANSACTION ADVISORY SERVICES MANAGER Work Phone: [facility] Start: 01-19-2024 End: 01-19-2024 Bamboo flowsheet Blossom Cody TRANSACTION ADVISORY SERVICES MANAGER Work Phone: [facility] Start: 01-19-2024 End: 01-19-2024 Office outpatient visit 25 minutes Blossom Cody TRANSACTION ADVISORY SERVICES MANAGER Work Phone: [facility] Comment on above: Diabetic polyneuropa thy associated with type 2 diabetes mellitus ([facility]/HCC) (Primary Dx); Type 2 diabetes mellitus with neurological manifestation ([facility]/HCC); Essential hypertension; 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, subsequent encounter ([facility]); Type 2 diabetes mellitus with hyperglycemia, with long-term current use of insulin ([facility]/HCC); Dyslipidemia (CMS/HCC); Hypertriglyceridemia (CMS/HCC); Amputation of toe, traumatic, left, sequela (CMS/HCC); Vitamin B 12 deficiency; Pure hyperglyceridemia (CMS/HCC) Start: 12-30-2023 End: 12-30-2023 Refill Natalie Hrenandez MD Work Phone: [facility] Comment on above: Essential hypertensi on Start: 10-19-2023 End: 10-19-2023 ambulatory [facility] Work Phone: Start: 10-19-2023 End: 10-19-2023 Patient encounter procedure [facility] Work Phone: Start: 06-16-2023 Bamboo flowsheet Blossom cabrales TRANSACTION ADVISORY SERVICES MANAGER Work Phone: [facility] Start: 06-16-2023 Bamboo flowsheet Blossom cabrales TRANSACTION ADVISORY SERVICES MANAGER Work Phone: [facility] Start: 06-16-2023 End: 06-16-2023 Office outpatient visit 25 minutes Blossom Cody NP Work Phone: [facility] Comment on above: Diabetic polyneuropa thy associated with type 2 diabetes mellitus (CMS/HCC) (Primary Dx); Diabetic neuropathic arthropathy (CMS/[facility]); Type 2 diabetes mellitus with neurological [...] neuropathy, with long-term current use of insulin (CMS/[facility]); long-term (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 (Z79.4); Acquired absence of other toe(s), unspecified side (Z89.429); Type 2 diabetes mellitus with diabetic neuropathy, with long-term current use of insulin ([facility]); Body mass index [BMI] 50.0-59.9, adult (Z68.43); Type 2 diabetes mellitus with foot ulcer, with long-term current use of insulin ([facility]); 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.49); Status post amputation of lesser toe, unspecified laterality (CMS/HCC); Arthritis of left foot; Acquired hallux valgus of left foot; Type 2 diabetes mellitus with hyperglycemia, with long-term current use of insulin (CMS/[facility]); Morbid obesity ([facility]) Start: 06-15-2023 End: 06-15-2023 ambulatory Tondra Mapus Other [facility] Other Start: 06-15-2023 Telephone encounter Tondra Mapus [facility] Start: 06-09-2023 (DM) Diabetes Tondra Dayannaus [facility] Start: 06-09-2023 End: 06-09-2023 Discharged Recurring MD Natalie Diggs Phone: [facility] Work Phone: Start: 06-09-2023 End: 06-09-2023 ambulatory MD Natalie Diggs Phone: [facility] Other Start: 06-09-2023 End: 06-09-2023 Patient encounter procedure MD Natalie Diggs Phone: [facility]- Start: 01-04-2023 (DM) Diabetes Tondra Shannon [facility] [facility] Start: 01-04-2023 End: 01-04-2023 ambulatory Tondra Mapus Other [facility] Other Start: 12-21-2022 End: 12-21-2022 ambulatory Tondra Mapus Other [facility] Other Start: 12-21-2022 Telephone encounter Tondra Mapus [facility] Start: 10-12-2022 ambulatory NATANAEL FELDMAN Faci lity:H1 Start: 10-06-2022 End: 10-07-2022 [facility] Start: 10-01-2022 Encounter for prepro cedural cardiovascular examination [facility] Selina [facility] Start: 10-01-2022 Encounter for prepro cedural laboratory examination [facility] Start: 09-30-2022 End: 10-01-[address] [facility] Start: 09-30-2022 End: 10-01-2022 Encounter for preprocedural laboratory examination NATANAEL Marks [facility] Facility:H1 Start: 09-15-2022 End: 09-16-2022 ambulatory NATANAEL Marks [facility] Facility:H1 Start: 09-10-2022 End: 09-10-2022 ambulatory Tondra Mapus Other [facility] Other Start: 09-10-2022 Telephone encounter Tondra Mapus [facility] Start: 08-24-2022 End: 08-25-2022 ambulatory NATANAEL Marks [facility] Facility:H1 Start: 08-10-2022 End: 08-10-2022 ambulatory Tondra Mapus Other [facility] Other Start: 08-10-2022 Telephone encounter Tondra Mapus [facility] Start: 08-03-2022 End: 08-04-[address] NATALIE HERNANDEZ Facility:H1 Start: 07-13-2022 End: 07-14-2022 ambulatory MARTELL ELOISE Facility:H1 Start: 06-30-2022 End: 07-01-2022 ambulatory NATANAEL Marks [facility] Facility:H1 Start: 06-25-2022 (DM) Diabetes Tondra Mapus [facility] Start: 06-25-2022 End: 06-25-2022 ambulatory Tondra Mapus Other [facility] Other Start: 06-16-2022 End: 06-17-2022 ambulatory NATANAEL Selina [facility] Facility:H1 Start: 06-08-2022 End: 06-09-2022 ambulatory NATANAEL Marks [facility] Facility:H1 Start: 05-25-2022 End: 05-26-2022 ambulatory NATANAEL Marks [facility] Facility:H1 Start: 05-12-2022 End: 05-13-2022 ambulatory NATANAEL Marks [facility] Facility:H1 Start: 04-30-2022 End: 05-01-2022 ambulatory NATANAEL Marks [facility] Facility:H1 Start: 04-24-2022 End: 04-25-2022 ambulatory PETER [...] 02-18-2022 End: 02-18-2022 ambulatory Tondra Mapus Other [facility] Other Start: 02-18-2022 Telephone encounter Tondra Mapus [facility] Start: 02-09-2022 End: 02-10-2022 ambulatory PETER D HIGHLANDER Facility:H1 Start: 01-26-2022 End: 01-27-2022 ambulatory PETER D HIGHLANDER Facility:H1 Start: 01-13-2022 End: 01-14-2022 ambulatory NATANAEL D HIGHLANDER Facility:H1 Start: 01-06-2022 (DM) Diabetes Tondra Shannon [facility] Start: 01-06-2022 End: 01-06-2022 ambulatory Tondra Mapus Other [facility] Other Start: 12-29-2021 End: 12-30-2021 ambulatory PETER D HIGHLANDER Facility:H1 Start: 12-22-2021 End: 12-23-2021 ambulatory PETER D HIGHLANDER Facility:H1 Start: 12-15-2021 End: 12-16-2021 ambulatory PETER D HIGHLANDER Facility:H1 Start: 12-08-2021 End: 12-09-2021 ambulatory PETER D HIGHLANDER Facility:H1 Start: 12-01-2021 End: 12-02-2021 ambulatory PETER D HIGHLANDER Facility:H1 Start: 11-24-2021 End: 11-25-2021 ambulatory NATANAEL D HIGHLANDER Facility:H1 Start: 11-20-2021 End: 11-21-2021 ambulatory NATANAEL D HIGHLANDER Facility:H1 Start: 11-17-2021 End: 11-18-2021 ambulatory NATANAEL D TAIWO Facility:H1 Start: 11-14-2021 End: 11-15-2021 ambulatory NATANAEL D TAWIO Facility:H1 Start: 11-11-2021 End: 11-12-2021 ambulatory NATANAEL D TAIWO Facility:H1 Start: 11-06-2021 End: 11-07-2021 ambulatory NATANAEL D TAIWO Facility:H1 Start: 11-03-2021 End: 11-04-2021 ambulatory NATANAEL D TAIWO Facility:H1 Start: 10-30-2021 End: 10-31-2021 ambulatory NATANAEL [...] post amputation of lesser toe, unspecified laterality ([facility]) Blossom Cody [employer] SERVICES MANAGER Work Phone: Plan of Treatment Date Care Activity Detail Author Start: 08-15-2026 Glaucoma screening Diabetes: Retinopathy Screening [facility] Start: 02-02-2026 Screening for malignant neoplasm of colon Colorectal Cancer Screening [facility] Comment on above: Postponed from 1979 (Patient Refus ed) Start: 11-06-2025 Influenza vaccination Influenza Vaccine (#1) [facility] Comment on above: Postponed from 01/08/2025 (Patient Refus ed) Start: 07-26-2025 Glaucoma screening Diabetes: Retinopathy Screening [facility] Start: 04-24-2025 End: 04-24-2025 Patient encounter procedure 04/24/2025 9:30 AM EST Office Visit [facility] [address] [place] [phone] Maria Fernanda Granados NP [address] [place], [place] [phone] [facility] Start: 01-31-2025 End: 01-31-2026 Microalbumin/Creatinine panel in random Urine Microalbumin / creatinine, urine ratio Lab Routine 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) Expected: 01/31/2025 (Approximate), Expires: 01/31/2026 [facility] Work Phone: Comment on above: Expected: 01/31/2025 (Approximate), Expi res: 01/31/2026 Start: 01-31-2025 End: 01-31-2025 Patient encounter procedure [facility] Comment on above: Arrived Start: 01-08-2025 Influenza vaccination Influenza Vaccine (#1) [facility] Start: 11-20-2024 Hemoglobin A1c measurement Diabetes: Hemoglobin A1C [facility] Start: 10-19-2024 End: 10-19-2024 Patient encounter procedure [facility] Comment on above: Arrived Start: 07-19-2024 End: 07-19-2024 Patient encounter procedure 07/19/2024 9:30 AM EDT Office Visit [facility] [address] [place] [phone] Blossom Cody NP [address] [place], [place] [phone] [facility] Start: 04-26-2024 Hemoglobin A1c measurement Diabetes: Hemoglobin A1C [facility] Start: 04-19-2024 End: 04-19-2024 Patient encounter procedure [facility] Comment on above: Diabetic polyneuropathy associated with type 2 diabetes mellitus ([facility]/HCC) (Primary Dx); Wellness examination; Type 2 diabetes mellitus with neurological manifestation ([facility]); Essential hypertension; 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, subsequent encounter ([facility]); Dyslipidemia ([facility]/HCC); Hypertriglyceridemia (CMS/[facility]); Poorly controlled diabetes mellitus ([facility]); Type 2 diabetes mellitus with hyperglycemia, with long-term current use of insulin ([facility]); Amputation of toe, traumatic, left, sequela ([facility]/HCC) Start: 03-24-2024 Urine screening for protein Diabetes: Urine Protein Screening [facility] Start: 03-15-2024 Influenza vaccination Influenza Vaccine (#1) [facility] Comment on above: Postponed from 01/09/2024 (Patient Refus ed) Start: 01-25-2024 End: 01-25-2024 Patient encounter procedure 01/25/2024 10:30 AM EDT Office Visit [facility] [address] [place] [phone] Blossom Cody NP [address] [place] [address] [facility] Start: 01-19-2024 Hemoglobin A1c measurement Diabetes: Hemoglobin A1C [facility] Start: 01-19-2024 End: 01-19-2024 Patient encounter procedure 01/19/2024 11:00 AM EDT Office Visit [facility] [address] [place] [phone] Blossom Cody NP [address] [place] [address] Diabetic polyneuropathy associated with type 2 diabetes mellitus ([facility]HCC) (Primary Dx); Type 2 diabetes mellitus with neurological manifestation ([facility]); Essential hypertension; 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, subsequent encounter ([facility]); Type 2 diabetes mellitus with hyperglycemia, with long-term current use of insulin ([facility]); Dyslipidemia ([facility]); Hypertriglyceridemia ([facility]); Amputation of toe, traumatic, left, sequela ([facility]/HCC); Vitamin B 12 deficiency [facility] Comment on above: Diabetic polyneuropathy associated with type 2 diabetes mellitus ([facility]) (Primary Dx); Type 2 diabetes mellitus with neurological manifestation ([facility]/HCC); Essential hypertension; 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, subsequent encounter ([facility]); Type 2 diabetes mellitus with hyperglycemia, with long-term current use of insulin ([facility]); Dyslipidemia ([facility]); Hypertriglyceridemia ([facility]HCC); Amputation of toe, traumatic, left, sequela ([facility]HCC); Vitamin B 12 deficiency Start: 01-09-2024 Influenza vaccination Influenza Vaccine (#1) [facility] Start: 09-15-2023 End: 09-15-2023 Patient encounter procedure 09/15/2023 9:30 AM EDT Office Visit [facility] [address] [place] [phone] Blossom Cody NP [address] [place] [address] [facility] Start: 09-07-2023 Hemoglobin A1c measurement Diabetes: Hemoglobin A1C [facility] Start: 07-26-2023 Glaucoma screening Diabetes: Retinopathy Screening [facility] Start: 07-07-2023 End: 07-07-2023 Patient encounter procedure 07/07/2023 9:00 AM EST Office Visit [facility] [address] [place] [phone] [facility] Start: 06-16-2023 End: 06-16-2023 Patient encounter procedure 06/16/2023 11:00 AM EST Office Visit [facility] [address] [place] [phone] Blossom Cody NP [address] [place] [address] Diabetic polyneuropathy associated with type 2 diabetes mellitus ([facility]HCC) (Primary Dx); Diabetic neuropathic arthropathy ([facility]); Type 2 diabetes mellitus with neurological manifestation (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); Vitamin B 12 deficiency; Hx of diabetic neuropathy; 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[facility]/HCC); Morbid obesity ([facility]/HCC); Hypertriglyceridemia ([facility]) [facility] Comment on above: Diabetic polyneuropathy associated with type 2 diabetes mellitus ([facility]HCC) (Primary Dx); Diabetic neuropathic arthropathy ([facility]HCC); Type 2 diabetes mellitus with neurological manifestation ([facility]CC); 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); Vitamin B 12 deficiency; Hx of diabetic neuropathy; 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[facility]HCC); Morbid obesity ([facility]); Hypertriglyceridemia ([facility]) Start: 1979 Screening for malignant neoplasm of colon [facility] AEROBIC CULTURE AEROBIC CULTURE Lab Routine 05/26/2024 6:[address] [facility] BLOOD CULTURE 1 BLOOD CULTURE 1 Lab Routine 04/27/2024 6:[address] [facility] BLOOD CULTURE 2 BLOOD CULTURE 2 Lab Routine 04/25/2024 1:[address] [facility] BLOOD CULTURE 2 BLOOD CULTURE 2 Lab Routine 04/27/2024 6:[address] [facility] BLOOD CULTURE 2 BLOOD CULTURE 2 Lab Routine 05/30/2024 12:[address] [facility] Comprehensive metabo lic 1999 panel - Serum or Plasma [facility] Comprehensive metabo lic 1999 panel - Serum or Plasma [facility] Patient Education Diabetes and diet [facility] Work Phone: [facility] Immunizations Immunization Date Immunization Notes Care Provider Fa dulce maria 03-14-2024 influenza, seasonal, injectable, preservative free Blossom Cody NP Work Phone: [facility] 03-14-2024 influenza virus vacc ine, unspecified formulation Blossom Cody NP Work Phone: [facility] 07-05-2023 tetanus and diphther ia toxoids, adsorbed, preservative free, for adult use (2 Lf of tetanus toxoid and 2 Lf of diphtheria toxoid) Natlaie Hernandez MD Work Phone: [facility] 03-24-2023 influenza, injectabl e, quadrivalent, preservative free Blossom Cody TRANSACTION ADVISORY SERVICES MANAGER Work Phone: [facility] 03-24-2023 influenza virus vacc ine, unspecified formulation Natalie Hernandez MD Work Phone: [facility] 08-26-2021 tetanus and diphther ia toxoids, adsorbed, preservative free, for adult use (5 Lf of tetanus toxoid and 2 Lf of diphtheria toxoid) Blossom Cody TRANSACTION ADVISORY SERVICES MANAGER Work Phone: [facility] 03-28-2021 influenza, injectabl e, quadrivalent, preservative free Blossom Glo TRANSACTION ADVISORY SERVICES MANAGER Work Phone: [facility] 02-13-2020 Influenza, injectabl e, Madin [place] Canine Kidney, preservative free, quadrivalent Blossom Glo TRANSACTION ADVISORY SERVICES MANAGER Work Phone: [facility] 02-22-2019 influenza, injectabl e, quadrivalent, preservative free Blossom Glo TRANSACTION ADVISORY SERVICES MANAGER Work Phone: [facility] 02-07-2018 influenza, injectabl e, quadrivalent, preservative free Blossom Glo TRANSACTION ADVISORY SERVICES MANAGER Work Phone: [facility] Payers Date Payer Category Payer Private Health Insurance [facility] [place] [address] [id number] 2022 Unknown [id number] 2020 Self-pay [id number] 1979 Unknown [id number] 2.16.840.1.370719.3.579. 2.593 1979 Unknown [id number] 2.16.840.1.185439.3.579. 2.593 1979 Unknown [id number] 2.16.840.1.469474.3.579. 2.593 1979 Unknown [id number] 2.16.840.1.171496.3.579. 2.593 1979 Unknown [id number] 2.16.840.1.639627.3.579. 2.593 1979 Unknown [id number] 2.16.840.1.461609.3.579. 2.593 1979 Unknown [id number] 2.16.840.1.161717.3.579. 2.593 1979 Unknown [id number] 2.16.840.1.706460.3.579. 2.593 1979 Unknown [id number] 2.16.840.1.904126.3.579. 2.593 1979 Unknown [id number] 2.16.840.1.015305.3.579. 2.593 1979 Unknown [id number] 2.16.840.1.379824.3.579. 2.593 1979 Unknown [id number] 2.16.840.1.746290.3.579. 2.593 1979 Unknown [id number] 2.16.840.1.615924.3.579. 2.593 1979 Unknown [id number] 2.16.840.1.576502.3.579. 2.593 1979 Unknown [id number] 2.16.840.1.582581.3.579. 2.593 1979 Unknown [id number] 2.16.840.1.155402.3.579. 2.593 1979 Unknown [id number] 2.16.840.1.930996.3.579. 2.593 1979 Unknown [id number] 2.16.840.1.177363.3.579. 2.593 1979 Unknown [id number] 2.16.840.1.848724.3.579. 2.593 1979 Unknown [id number] 2.16.840.1.745971.3.579. 2.593 1979 Unknown [id number] 2.16.840.1.339505.3.579. 2.593 1979 Unknown [id number] 2.16.840.1.379817.3.579. 2.593 1979 Unknown [id number] 2.16.840.1.061543.3.579. 2.593 1979 Unknown [id number] 2.16.840.1.498557.3.579. 2.593 1979 Unknown [id number] 2.16.840.1.369350.3.579. 2.593 1979 Unknown [id number] 2.16.840.1.178924.3.579. 2.593 1979 Unknown [id number] 2.16.840.1.830471.3.579. 2.593 1979 Unknown [id number] 2.16.840.1.438498.3.579. 2.593 1979 Unknown [id number] 2.16.840.1.321513.3.579. 2.593 1979 Unknown [id number] 2.16.840.1.501249.3.579. 2.593 1979 Unknown [id number] 2.16.840.1.775106.3.579. 2.593 1979 Unknown [id number] 2.16.840.1.727681.3.579. 2.593 1979 Unknown [id number] 2.16.840.1.662758.3.579. 2.593 1979 Unknown [id number] 2.16.840.1.904422.3.579. 2.593 1979 Unknown [id number] 2.16.840.1.485386.3.579. 2.593 1979 Unknown [id number] 2.16.840.1.003182.3.579. 2.593 1979 Unknown [id number] 2.16.840.1.990854.3.579. 2.593 1979 Unknown [id number] 2.16.840.1.158534.3.579. 2.593 1979 Unknown [id number] 2.16.840.1.071555.3.579. 2.593 1979 Unknown [id number] 2.16.840.1.214608.3.579. 2.593 1979 Unknown [id number] 2.16.840.1.932879.3.579. 2.593 1979 Unknown [id number] 2.16.840.1.134876.3.579. 2.1259 1979 Unknown [id number] 2.16.840.1.656611.3.579. 2.1259 1979 Unknown [id number] 2.16.840.1.727327.3.579. 2.1259 1979 Unknown [id number] 2.16.840.1.548993.3.579. 2.1259 1959 Unknown [id number] 2.16.840.1.084486.19 1959 Unknown [id number] 2.16.840.1.278128.19 Unknown [id number] 2.16.840.1.639501.3.579. 2.531 Unknown [id number] 2.16.840.1.767409.3.579. 2.531 Social History Date Type Detail Facility Unknown if ever smoked [facility] Other Start: 03-23-2023 End: 01-31-2025 Sex Assigned At [facility] Start: 12-21-2022 Tobacco smoking stat [facility] Never smoked tobacco [facility] Start: 12-21-2022 Tobacco use and exposure Smokeless tobacco non-user [facility] Start: 05-18-2023 End: 01-31-2025 Alcohol intake Current drinker of alcohol (finding) [facility] Start: 03-23-2023 End: 05-18-2023 Alcohol intake [facility] Within the last year , have you been afraid of your partner or ex-partner? Patient refused [facility] Are you now , , , , never or living with a partner? Refused [facility] (I/We) worried whejaja er (my/our) food would run out before (I/we) got money to buy more. DK or Refused [facility] Start: 1980 Sex Assigned At Not on file [facility] Start: 1980 Sex Assigned At Male [facility] Start: 10-19-2023 End: 10-19-2023 Tobacco smoking status NHIS Ex-smoker (finding) [facility] Start: 06-14-2024 End: 08-21-2024 Sex Male (finding) [facility] How often to you hav e a drink containing alcohol? 2-3 time sa week [facility] How many standard drinks containing alcohol do you have on a typical day? 1 or 2 [facility] How often do you hav e 6 or more drinks on 1 occasion? Never [facility] Start: 01-31-2025 Alcohol Comment caffeine: 2-3 cups daily [facility] Medical Equipment Procedure Code Equipment Code Equipment [...] x 5/32 needle Start: 08-21-2024 End: 11-27-2024 Goals Date Patient Goal Desired Activity /State Personal health goal Functional Status Date Assessment Result Facility 01-31-2025 Total score [AUDIT-C] 3 02/01/20 9:27 AM EDT Nohemi Castrejon MA [facility] Clinical Notes 05-10-2020 to 01-31-2025 Nohemi Castrejon MA - 01/31/2025 9:30 AM Alicia Granados NP - 01/31/2025 9:30 AM Alicia Granados NP - 10/19/2024 10:00 AM Chani Cody NP - 07/19/2024 9:30 AM EDT Note Date & Type Note Facility 01-31-2025 History of Presen t illness Narrative Needs refill on trazodone Images from the original note were not included. Trev Ontiveros is a 44 y.o. male presents with chief complaint of Diabetes (/) HPI: HPI History of Present Illness The patient is a 44-year-old male who presents for his wellness exam. He is under the care of an crocodile farmer, Dr. Link Iverson, with whom he has a scheduled appointment on 03/12/2025. His last consultation with her was in 11/2024. His most recent A1c level was recorded in 11/2024, and he anticipates another test during his upcoming visit. He monitors his blood sugar levels at home twice daily, which typically range from 120s to 160s or 170s when fasting. His A1c level in 11/2024 was between 7.8 and 7.9. He maintains a balanced diet, avoiding excessive carbohydrates, and engages in regular physical activity such as walking. He does not experience any side effects from metformin, including diarrhea. His current medication regimen includes Victoza, metformin, and long-acting insulin (46 units twice daily). He also takes short-acting insulin with meals. He was previously on Farxiga but discontinued it due to cost. He is under the care of a retail wireless sales consultant and reports no foot-related issues. He has had scar tissue removed from his feet but has no open wounds or blisters. He does not experience any numbness, tingling, or pain in his feet. He does not monitor his blood pressure at home. He is up-to-date with his eye exams and dental check-ups, with the next one scheduled for the end of 02/2025. He is not currently seeing any other specialists besides us, his retail wireless sales consultant, and endo. He is considering colon cancer screening but has not yet decided to proceed. He reports no chest pain, shortness of breath, abdominal pain, nausea, vomiting, constipation, or diarrhea. He also reports no swelling in his feet or ankles, difficulty swallowing, choking, heartburn, reflux, or any other pain. He is requesting a refill of his trazodone prescription, which he takes as needed for sleep. He reports that it is effective. He describes his mood as stable and does not report feelings of anxiety or depression. SUBJECTIVE: MEDICATIONS: Current Outpatient Medications Medication Instructions [...] Medical History: Diagnosis Date BMI 40.0-44.9, [place] BMI 45.0-49.9, adult [place] Constipation COVID-19 DM (diabetes mellitus) ([facility]) Dyslipidemia History of being hospitalized 03/2018 Uncontrolled diabetes, infection History of COVID-19 05/13/2020 Non-pressure chronic ulcer of other part of unspecified foot with unspecified severity ([facility]) 10/02/2022 Osteomyelitis of great toe of right foot ([facility]) 10/02/2022 Osteomyelitis of right foot (HCC) 10/02/2022 Pressure ulcer of other site, stage 2 ([facility]) 10/02/2022 Ulcer of foot due to type 2 diabetes mellitus ([facility]) 10/02/2022 Ulcerated, foot, left, limited to breakdown of skin ([facility]) 10/02/2022 Past Surgical History: Procedure Laterality [...] 4 Standard drinks or equivalent per week Comment: caffeine: 2-3 cups daily Drug use: Never Sexual activity: Not on [...] wound. Psychiatric/Behavioral: Negative. OBJECTIVE: Results Labs - Home blood sugar readings: 120s to 160s and 170s - A1c: 11/2024, 7.8 to 7.9 10/29/2023 9:37 AM 01/19/2024 11:00 AM 04/19/2024 9:47 AM 07/19/2024 9:22 AM 07/19/2024 9:57 AM 10/19/2024 9:51 AM 01/31/2025 9:20 AM Vitals BMI 52.4 kg/m2 51.82 kg/m2 52.21 kg/m2 50.03 kg/m2 51.08 kg/m2 52.48 kg/m2 BSA (m2) 2.95 m2 2.94 m2 2.95 m2 2.89 m2 2.91 m2 2.95 m2 Systolic 136 128 140 138 130 118 Diastolic 78 72 84 80 86 72 Heart Rate 84 84 80 76 82 SpO2 98 % Height (in) 5' 11.5 5' 11.5 Weight (lb) 381 376.8 379.6 363.8 371.4 381.6 Visit Report Report Report Report Report Report Report Report Physical Exam Constitutional: General: He is not in acute distress. Appearance: Normal appearance. He is obese. He is not ill-appearing, toxic-appearing or diaphoretic. HENT: Right Ear: Tympanic membrane, ear canal and external ear normal. Left Ear: Tympanic membrane, ear canal and external ear normal. Nose: Nose normal. No congestion or rhinorrhea. Mouth/Throat: Pharynx: Oropharynx is clear. No posterior oropharyngeal erythema. Eyes: Extraocular Movements: Extraocular movements intact. Conjunctiva/sclera: Conjunctivae normal. Pupils: Pupils are equal, round, and reactive to light. Neck: Vascular: No carotid bruit. Cardiovascular: Rate and Rhythm: Normal rate and regular rhythm. Heart sounds: No murmur heard. Pulmonary: Effort: No respiratory distress. Breath sounds: Normal breath sounds. No wheezing, rhonchi or rales. Abdominal: General: Bowel sounds are normal. There is no distension. Palpations: Abdomen is soft. Tenderness: There is no abdominal tenderness. Musculoskeletal: General: Normal range of motion. Cervical back: Normal range of motion and neck supple. No tenderness. Right lower leg: No edema. Left lower leg: No edema. Lymphadenopathy: Cervical: No cervical adenopathy. Skin: General: Skin is warm and dry. Coloration: Skin is not pale. Findings: No erythema or rash. Neurological: General: No focal deficit present. Mental Status: He is alert and oriented to person, place, and time. Motor: No weakness. Psychiatric: Mood and Affect: Mood normal. Behavior: Behavior normal. Thought Content: Thought content normal. Judgment: Judgment normal. Physical Exam ASSESSMENT AND PLAN: Assessment/Plan Diagnoses and all orders for this visit: Wellness examination 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) - Microalbumin / creatinine, urine ratio; Future Depressed mood - traZODone (Desyrel) 100 MG tablet; Take 1 tablet (100 mg) by mouth as needed at bedtime for sleep Insomnia, unspecified type - traZODone (Desyrel) 100 MG tablet; Take 1 tablet (100 mg) by mouth as needed at bedtime for sleep Pure hyperglyceridemia - atorvastatin (Lipitor) 40 MG tablet; Take 1 tablet (40 mg) by mouth Daily Diabetic polyneuropathy associated with type 2 diabetes mellitus (HCC) Diabetic neuropathic arthropathy (HCC) Diabetic autonomic neuropathy associated with type 2 diabetes mellitus (HCC) Essential hypertension 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) Assessment & Plan 1. Diabetes mellitus: - Blood sugar levels at home range from 120s to 160s-170s fasting, which is well-controlled. - He is currently on Victoza, metformin, and long-acting insulin 46 units twice a day. He also uses short-acting insulin with meals. His last A1c in November was between 7.8 and 7.9. - No additional blood work is needed today as his crocodile farmer has already ordered it. He will follow up with his crocodile farmer in March for further management. - He will continue his current medication regimen. 2. Insomnia: - He uses trazodone as needed for sleep and finds it helpful. - He was advised that trazodone can be taken nightly as it aids in both depression and insomnia. - A 30-day supply of trazodone will be provided. 3. Medication management: - A year's supply of atorvastatin (Lipitor) will be provided, with a 90-day supply and three refills. 4. Wellness: - Colon cancer screening was discussed, but he prefers to defer it for now. Prostate cancer screening will commence at age 49. - He is up to date on eye exams and dental visits. He prefers to get his flu shot in February and will call to schedule it. -Reviewed family history, risk factors for disease and discussed importance of routine exercise and healthy diet. Recommended routine dental/eye exams. Discussed routine screenings and patient is UTD. All questions answered. 5. HTN. -Controlled. 6. Previous toe amputations. -Seeing podiatry, denies concerns. 7. Dyslipidemia. -Continue statin, labs ordered per endo that he had done this morning. 8. Morbid Obesity. -Discussed healthy diet and exercise. Follow-up: A follow-up visit is scheduled in 3 months. Follow up in about 3 months (around 05/02/2025) for 3 month follow up. documented in this encounter [facility] 10-19-2024 History of Presen t illness Narrative Images from the original note were not included. Trev Ontiveros is a 44 y.o. male presents with chief complaint of Follow-up (3 month DM) HPI: HPI History of Present Illness The patient is a 44-year-old male who presents to the office for follow-up today. He is under the care of an crocodile farmer for his diabetes, with a scheduled appointment [...] necessitated surgical intervention and subsequent rehabilitation at [facility] due to his inability to bear weight on the foot. During his two-month stay at [facility], he contracted MRSA. He underwent physical therapy [...] He maintains regular annual check-ups with an cdl service technician and dentist. He reports no gastrointestinal symptoms [...] Medical History: Diagnosis Date BMI 40.0-44.9, [place] BMI 45.0-49.9, [place] Constipation COVID-19 DM (diabetes mellitus) ([facility]) Dyslipidemia History of being hospitalized 03/2018 Uncontrolled diabetes, infection History of COVID-19 05/13/2020 Non-pressure chronic ulcer of other part of unspecified foot with unspecified severity ([facility]) 10/02/2022 Osteomyelitis of great toe of right foot ([facility]) 10/02/2022 Osteomyelitis of right foot ([facility]) 10/02/2022 Pressure ulcer of other site, stage 2 [place] 10/02/2022 Ulcer of foot due to type 2 diabetes mellitus ([facility]) 10/02/2022 Ulcerated, foot, left, limited to breakdown of skin ([facility]) 10/02/2022 Past Surgical History: Procedure Laterality Date AMPUTATION FOOT / TOE Right 03/2018 2nd toe AMPUTATION FOOT / TOE Right 01/10/2021 Hallux - Dr. Moore AMPUTATION FOOT / TOE Left 05/17/2023 4th toe - Dr. Feldman CHEILECTOMY Left 02/14/2020 [facility] CHEILECTOMY Left 09/15/2018 1st Metatarsal FOOT [...] toe, traumatic, left, sequela (HHS-HCC) Morbid obesity ([facility]) Hypertriglyceridemia Assessment & Plan 1. Type 2 diabetes mellitus. He is currently under the care of an crocodile farmer, with his most recent A1c level recorded [...] 01/19/2025) for DM. documented in this encounter [facility] 07-19-2024 History of Presen t illness [...] wound , was in rehab place in [place] couldn't put weight on it for awhile. Had MRSA while there. Had IV ATB 4 times a day for [address] Nolasco in [place]. Was taking Vit D weekly in rehab. Had PT daily there. Now area is approx 50 cent size (medial lateral right foot). Sees Dr Felmdan. Has been home for 2 weeks now. [...] Was in the hospital, then rehab. Seeing monica Umaña F/U per routine Poorly controlled diabetes mellitus [...] in Apr 2024) documented in this encounter [facility] 06-14-2024 Evaluation note Diagnosis Onset Date [...] right foot acute August 21, 2024 8:51am [facility] Work Phone: 1(909) 765-978812-11-2024 History of Present illness Narrative* Blossom Cody, TRANSACTION ADVISORY SERVICES MANAGER - 04/19/2024 10:00 AM EST Images from [...] foot, subsequent encounter (CMS/HCC) Comments: Sees Dr Reynolds Dyslipidemia (CMS/HCC) Comments: Lipids: Chol 126, Trig 219, HDL 25, LDL 69, ratio 5 per Endo lab in jan Hypertriglyceridemia (CMS/HCC) Comments: See above last 290 in Mar 2023-so better. Avoid sweets. enc fruit and elliot veget, lean protein nuts,exercise Poorly controlled diabetes mellitus ([facility]/HCC) Type 2 diabetes mellitus with hyperglycemia, with long-term current use of insulin ([facility]/HCC): See Endo Amputation of toe, traumatic, left, sequela ([facility]/HCC): Sees Podiatry Diabetic autonomic neuropathy associated with type 2 diabetes mellitus (CMS/HCC: See above Acquired hallux valgus, unspecified laterality: Sees Podiatry Morbid obesity ([facility]): See above Vitamin B12 deficiency: 374 on recent lab in [facility] Lipoprotein deficiency disorder F/U in July or August for recheck-hypertension/Diabetes, sooner if concerns documented in this [facility]10-21-2024 Telephone encounter Note* Telephone Encounter - Blossom Cody NP - 02/28/2024 11:53 AM EDT [id number] Miscellaneous Notes* Telephone Encounter - Blossom Cody NP - 02/28/2024 11:53 AM EDT Rx sent documented in this [facility]09-11-2024 History of Present illness Narrative* Blossom Cody [...] polyneuropathy associated with type 2 diabetes mellitus ([facility]) Comments: HgbA1c 9.7 in October. He sees Endo. Plans to do lab for them this week. He has Endo appt next week. Enc yearly eye exams. Enc to watch portions on carbs, avoid sweets. Try to be as active as able. Type 2 diabetes mellitus with neurological manifestation (CMS/[facility]) Essential hypertension: Controlled. Pt will verify [...] sooner if concerns. PVU [facility] [id number] Telephone encounter Note* Telephone Encounter - Blossom Cody NP - 12/30/2023 4:44 PM EDT Rx sent [facility] [id number] Miscellaneous Notes* Telephone Encounter - Blossom Cody NP - 12/30/2023 4:44 PM EDT Rx sent documented in [facility] encounter[facility] [id number] History of Present illness Narrative* Blossom Cody [...] so he doesn't have to go to [place]. I told him because his sugars are [...] amputation of toe of right foot, sequela ([facility]) Comments: Hx of Sees Dr Feldman. Now has left foot toe amputated. Per pt toe is healing Ulcer of foot due to type 2 diabetes mellitus ([facility]): Hx of Poorly controlled diabetes mellitus ([facility]): Last HgbA1c 8.2 Type 2 diabetes mellitus with hyperglycemia, with long-term current use of insulin ([facility]): As above Vitamin B 12 deficiency Comments: Last WNL at 351 Hx of diabetic neuropathy: Hx of 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CMS/[facility]): Hx of Morbid obesity ([facility]) Comments: Enc healthy diet, watch sweets carbs. Balance diet with carb proteinm try to add vegeatbles, Enc physical activity as able Hypertriglyceridemia ([facility]) Comments: Last lipids 04/01 Chol 142, [...] neuropathy, with long-term current use of insulin ([facility]): Hx of long-term (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 (Z79.4): Hx of Acquired absence of other toe(s), unspecified side (Z89.429): Hx of Type 2 diabetes mellitus with diabetic neuropathy, with long-term current use of insulin ([facility]);Hx of Body mass index [BMI] 50.0-59.9, adult (Z68.43): See above. Discussed seeing weight loss provider or seeing someone about gastric bypass-pt declined both. He is not interested in this Type 2 diabetes mellitus with foot ulcer, with long-term current use of insulin ([facility]): Hx of (no ulcer at this time, bu lit recent amputation of 4th toe 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.49): Hx of Status post amputation of lesser toe, unspecified laterality ([facility]): 4th toe- has appt for followup with Dr Feldman Arthritis of left foot: Hx of Acquired hallux valgus of left foot: Hx of Type 2 Diabetes mellitus with hyperglycemia with alf current use of insulin ([facility]): Hx of Morbid obesity: See above documented in this encounterEll[facility] [id number] Evaluation note* Encounter Date Diagnosis Assessment Notes Treatment Notes Treatment Clinical Notes Jun, Type 2 diabetes mellitus with hyperglycemia (ICD-10 - E11.65) [facility] Other 01-31-2024 Evaluation note* Encounter Date Diagnosis [...] f/u with pcp for further recommendation May, long-term current use of insulin (ICD-10 - Z79.4) May, Vitamin B 12 deficiency (ICD-10 - E53.8) 04/01 vit b 12 351 at target May, BMI 50.0-59.9, adult (ICD-10 - Z68.43) see above May, Amputation toe (ICD-10 - Z89.429) Keep f/u with Dr. Feldman May, Cracked skin on feet (ICD-10 - R23.4) keep f/u with Dr. Feldman [facility] Other 08-28-2023 Evaluation note* Encounter Date Diagnosis [...] for Lispro/ozempic 0.5mg sent to [facility] in [place] 01/04/23 7. Prescriptions will not be filled [...] (hypertension) (ICD-10 - I10) on julissa Dec, long-term current use of insulin (ICD-10 - Z79.4) Dec, Vitamin B 12 deficiency (ICD-10 - E53.8) 12/30 vit b 12 335 at target Dec, BMI 50.0-59.9, adult (ICD-10 - Z68.43) see above Dec, Wound of foot (ICD-10 - S91.309A) pt has apt scheduled with Dr. Taiwo keenan [facility] Other 05-30-2023 NotePROCEDURE: XR FOOT LT MIN [...] Electronically authenticated by: FRANCO FRANCES Date: 2022-10-06 14:13[facility]05-04-2023 Evaluation note* Encounter Date Diagnosis Assessment Notes Treatment Notes Treatment Clinical Notes September, Type 2 diabetes mellitus with hyperglycemia (ICD-10 - E11.65) [facility] Other 04-17-2023 NotePROCEDURE: XR FOOT LT MIN [...] Electronically authenticated by: FERN SOSA Date: 2022-08-24 12:46[facility]02-16-2023 Evaluation note* Encounter Date Diagnosis Assessment Notes Treatment Notes Treatment Clinical Notes Jun, Type 2 diabetes mellitus with hyperglycemia (ICD-10 - E11.65) 1. Uncontrolled, a Type 2 diabetes with A1c of 8.2% 2. Blood glucose levels above target. Discussed with pt restarting ozempic, he had s/e from higher dose ozempic 1mg and concern with cost works at [employer]. Pt agreeable to starting sample ozempic 0.5mg [...] Prescriptions: Syringes/ozempic/st eglatro sent to [facility] in [place] 06/25/22 7. Prescriptions will not be filled [...] (hypertension) (ICD-10 - I10) on julissa Jun, meterman current use of insulin (ICD-10 - Z79.4) Jun, Vitamin B 12 deficiency (ICD-10 - E53.8) 12/28 vit b 12 423 at target Jun, BMI 50.0-59.9, adult (ICD-10 - Z68.43) [facility] Other [id number] NotePROCEDURE: XR ANKLE LT MIN 3 V, [...] Electronically authenticated by: GISSEL RUBIO Date: 2022-06-16 16:33[facility]02-07-2023 NotePROCEDURE: XR ANKLE LT MIN [...] Electronically authenticated by: GISSEL RUBIO Date: 2022-06-16 16:33[facility]08-30-2022 Evaluation note* Encounter Date Diagnosis [...] (hypertension) (ICD-10 - I10) on julissa Dec, long-term current use of insulin (ICD-10 - Z79.4) Dec, Vitamin B 12 deficiency (ICD-10 - E53.8) 12/28 vit b 12 423 at target Dec, BMI 45.0-49.9, adult (ICD-10 - Z68.42) 14 pound weight loss from last visit, continue with weight loss efforts [facility] Other 01-01-2021 History general Narrative - Reported* Type Description Date Medical History type II diabetes Medical History hypertension Medical History hyperlipidemia Medical History covid 05/2020 Surgical History Ulcer on left great toe X2 Surgical History Partial amputation Right great toe 01/2021 Surgical History All toes right foot amputated Hospitalization History Toe infection 2017 [facility] Other 01-01-2021 History general Narrative - Reported* Type Description Date Medical History type II diabetes Medical History hypertension Medical History hyperlipidemia Medical History covid 05/2020 Surgical History Ulcer on left great toe X2 Surgical History Partial amputation Right great toe 01/2021 Surgical History All toes right foot amputated Surgical History Left great toe corre ctive surgery with Dr. Feldman in [place] 10/2022 Hospitalization History Toe infection 2017 [facility] Other Chiuv complaint+Reason for visit Narrative* Chief Complaint no meter Reason for Visit BMI 50.0-59.9, adult Dietary counseling and surveillance Hypertension Mixed hyperlipidemia Type 2 diabetes mellitus with hyperglycemia [facility] Work Phone: Chicg complaint+Reason for visit Narrative* Chief Complaint meter Reason for Visit BMI 50.0-59.9, adult Dietary counseling and surveillance Hypertension Mixed hyperlipidemia Type 2 diabetes mellitus with hyperglycemia Wound of left foot Wound of right foot [facility] Work Phone: Evaluation noteNo InformationNortSelect Specialty [facility] Other Evaluation note* Diagnosis Diabetic polyneuropathy associated with type 2 diabetes mellitus ([facility]/HCC)- Primary Diabetic neuropathic arthropathy ([facility]) Type II or unspecified type diabetes mellitus with neurological manifestations, not stated as uncontrolled Type 2 diabetes mellitus with neurological manifestation (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) Ulcer of foot due to type 2 diabetes mellitus ([facility]) Vitamin B 12 deficiency Other B-complex deficiencies Hx of diabetic neuropathy 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[facility]) Lipoprotein deficiencies Hypertriglyceridemia (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) meterman (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 (Z79.4) Acquired absence of other toe(s), unspecified side (Z89.429) Type 2 diabetes mellitus with diabetic neuropathy, with long-term current use of insulin ([facility]) Body mass index [BMI] 50.0-59.9, adult (Z68.43) Type 2 diabetes mellitus with foot ulcer, with long-term current use of insulin ([facility]) 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.49) Status post amputation of lesser toe, unspecified laterality ([facility]) Arthritis of left foot Acquired hallux valgus of left foot Type 2 diabetes mellitus with hyperglycemia, with long-term current use of insulin ([facility]) Morbid obesity ([facility]) Morbid obesity documented in this encounter [facility] HealthcareEvaluation noteNo assessment information availableUpper Valley Medical Center Work Phone: Evaluation note* Diagnosis Onset Date Resolution Status BMI 50.0-59.9, adult acute Dietary counseling and surveillance acute Hypertension acute Mixed hyperlipidemia acute Type 2 diabetes mellitus with hyperglycemia acute [facility] Work Phone: Evaluation note* Diagnosis Onset Date Resolution Status BMI 50.0-59.9, adult acute Dietary counseling and surveillance acute Hypertension acute Mixed hyperlipidemia acute Type 2 diabetes mellitus with hyperglycemia acute Wound of left foot acute Wound of right foot acute [facility] Work Phone: Evaluation note* Diagnosis Pure hyperglyceridemia ([facility]) Pure hyperglyceridemia documented in this encounter [facility] HealthcareEvaluation note* Diagnosis Diabetic polyneuropathy associated with type 2 diabetes mellitus ([facility])- Primary Type 2 diabetes mellitus with neurological manifestation (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) Dyslipidemia ([facility]) Other and unspecified hyperlipidemia Hypertriglyceridemia ([facility]) Pure hyperglyceridemia Vitamin B 12 deficiency Other B-complex deficiencies Pure hyperglyceridemia ([facility]) Pure hyperglyceridemia documented in this encounter [facility] HealthcareEvaluation note* Diagnosis Diabetic polyneuropathy associated with type 2 diabetes mellitus ([facility])- Primary Wellness examination Type 2 diabetes mellitus with neurological manifestation ([facility]) Essential hypertension Unspecified essential hypertension 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, subsequent encounter ([facility]) Dyslipidemia ([facility]) Other and unspecified hyperlipidemia Hypertriglyceridemia ([facility]) Pure hyperglyceridemia Poorly controlled diabetes mellitus ([facility]) Type II or unspecified type diabetes mellitus without mention of complication, not stated as uncontrolled Type 2 diabetes mellitus with hyperglycemia, with long-term current use of insulin ([facility]) Diabetic autonomic neuropathy associated with type 2 diabetes mellitus ([facility]) Type II or unspecified type diabetes mellitus with neurological manifestations, not stated as uncontrolled Acquired hallux valgus, unspecified laterality Morbid obesity ([facility]/HCC) Morbid obesity Vitamin B 12 deficiency Other B-complex deficiencies 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[facility]) Lipoprotein deficiencies documented in this encounter [facility]* Diagnosis Essential hypertension Unspecified essential hypertension documented in this encounter [facility] HealthcareEvaluation note* Diagnosis Diabetic polyneuropathy associated with type 2 diabetes mellitus ([facility])- Primary Type 2 diabetes mellitus with neurological manifestation (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) Type 2 diabetes mellitus with hyperglycemia, with long-term current use of insulin ([facility]) Ulcer of right foot, unspecified ulcer stage (HCC) ([facility]) Poorly controlled diabetes mellitus ([facility]) Type II or unspecified type diabetes mellitus without mention of complication, not stated as uncontrolled Dyslipidemia ([facility]) Other and unspecified hyperlipidemia Hypertriglyceridemia ([facility]) Pure hyperglyceridemia Essential hypertension Unspecified essential hypertension Morbid obesity (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) Morbid obesity Hypertriglyceridemia Pure hyperglyceridemia documented in this encounter [facility] HealthcareEvaluation note* Diagnosis Onset Date Resolution Status Admit Date BMI 50.0-59.9, adult acute November 27, 2024 9:51am Dietary counseling and surveillance acute November 27, 2024 9:51am Hypertension acute November 27, 9:51am Mixed hyperlipidemia acute November 27, 2024 9:51am Type 2 diabetes mellitus wit h hyperglycemia acute November 27, 2024 9:51am Wound of left foot acute November [id number] 9:51am Wound of right foot acute November 27, 2024 9:51am [facility] Work Phone: Evaluation note* Diagnosis Wellness examination- Primary 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) Depressed mood Insomnia, unspecified type Pure hyperglyceridemia Diabetic polyneuropathy associated with type 2 diabetes mellitus (HCC) Diabetic neuropathic arthropathy (HCC) Type II or unspecified type diabetes mellitus with neurological manifestations, not stated as uncontrolled Diabetic autonomic neuropathy associated with type 2 diabetes mellitus (HCC) Type II or unspecified type diabetes mellitus with neurological manifestations, not stated as uncontrolled Essential hypertension Unspecified essential hypertension 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, sequela ([facility]) Arthritis of left foot Morbid obesity (CMS-HCC) Morbid obesity Type 2 diabetes mellitus with hyperglycemia, with long-term current use of insulin (HCC) Lipoprotein deficiency disorder Lipoprotein deficiencies Hypertriglyceridemia Pure hyperglyceridemia Dyslipidemia Other and unspecified hyperlipidemia Vitamin B 12 deficiency Other B-complex deficiencies Poorly controlled diabetes mellitus (HCC) Type II or unspecified type diabetes mellitus without mention of complication, not stated as uncontrolled documented in this encounter [facility]Reason for referral (narrative)No reason for referral information availableThe [facility] Work Phone: Summary Purpose Family History Relationship [...] section and content) DATE CREATED AUTHOR 08/27/2021 [facility] dical Specialist DATE CREATED AUTHOR AUTHOR'S ORGANIZ ATION 10/17/2022 [facility] DATE CREATED AUTHOR AUTHOR'S ORGANIZ ATION 04/29/2024 [facility] DATE CREATED AUTHOR AUTHOR'S ORGANIZ ATION 02/01/2025 [facility] d[facility] Specialists EPIC DATE CREATED AUTHOR AUTHOR'S ORGANIZ ATION 02/02/2025 [facility] REASON FOR VISIT (unrecogniz ed section and [...] surgeries. Reason Comments Follow-up 3 month DM Reason Comments Diabetes Care Teams (unrecognized sec tion and content) [...] Status: Inactive Member Role Status Dates Natalie Wonderly , MD Primary Care Provider Active Start: August [...] January 26, 2024 End: January 26, 2024 Athletic Monitor Relationship Specialty Start Date End Date Natalie Hernandez MD [address] [place] [address] PCP - General Family Medicine 09/15/22 Athletic Monitor Relationship Specialty Start Date End Date Natalie Hernandez MD [address] [place] [address] PCP - General Family Medicine 09/15/22 Team [...] October 19, 2023 End: October 19, 2023 Athletic Monitor Relationship Specialty Start Date End Date Natalie Hernandez MD [address] [place] [address] PCP - General Family Medicine 09/15/22 Blossom Cody NP [address] [place] [address] Nurse Practitioner Family Medicine 01/19/24 Athletic Monitor Relationship Specialty Start Date End Date Natalie Hernandez MD [address] [place] [address] PCP - General Family Medicine 09/15/22 Blossom Cody NP [address] [place] [address] Nurse Practitioner Family Medicine 01/19/24 Athletic Monitor Relationship Specialty Start Date End Date Natalie Hernandez MD [address] [place] [address] PCP - General Family Medicine 09/15/22 Blossom Cody NP [address] [place] [address] Nurse Practitioner Family Medicine 01/19/24 Athletic Monitor Relationship Specialty Start Date End Date Natalie Hernandez MD [address] [place] [address] PCP - General Family Medicine 09/15/22 Blossmo Cody NP [address] [place] [address] Nurse Practitioner Family Medicine 01/19/24 Athletic Monitor Relationship Specialty Start Date End Date Natalie Hernandez MD [address] [place] [address] PCP - General Family Medicine 09/15/22 Athletic Monitor Relationship Specialty Start Date End Date Natalie Hernandez MD [address] [place] [address] PCP - General Family Medicine 09/15/22 Athletic Monitor Relationship Specialty Start Date End Date Natalie Hernandez MD [address] [place] [address] PCP - General Family Medicine 09/15/22 Blossom Cody NP [address] [place] [address] Nurse Practitioner Family Medicine 01/19/24 Athletic Monitor Relationship Specialty Start Date End Date Natalie Hernandez MD [address] [place] [address] PCP - General Family Medicine 09/15/22 Blossom Cody NP [address] [place] [address] Nurse Practitioner Family Medicine 01/19/24 Athletic Monitor Relationship Specialty Start Date End Date Natalie Hernandez MD [address] [place] [address] PCP - General Family Medicine 09/15/22 Blossom Cody NP [address] [place] [address] Nurse Practitioner Family Medicine 01/19/24 Athletic Monitor Relationship Specialty Start Date End Date Natalie Hernandez MD PCP - General Family Medicine 09/15/22 Blossom Cody NP Nurse Practitioner Family Medicine 01/19/24 Athletic Monitor Relationship Specialty Start Date End Date Natalie Hernandez MD PCP - General Family Medicine 09/15/22 Blossom Cody NP Nurse Practitioner Family Medicine 01/19/24 Team Status: Active Member Role Status Dates SERG Torres Primary Care Provider Active Team Status: Inactive Member Role Status Dates Link Ortega APRN Attending Provider Active Start: November 27, 2024 End: November 27, 2024 SERG Torres Primary Care Provider Active Start: November 27, 2024 End: November 27, 2024 Athletic Monitor Relationship Specialty Start Date End Date Tres Oleary MD [address] [place] [address] PCP - General Family Medicine 01/11/25 Blossom Cody NP Nurse Practitioner [facility] 01/19/24 Athletic Monitor Relationship Specialty Start Date End Date Tres Oleary MD [address] [place] [address] PCP - General Family Medicine 01/11/25 Blossom Cody NP Nurse Practitioner [facility] 01/19/24 Goals (unrecognized section and content) Goals [...] BE BASED ON THE PRIMARY CLINICAL RECORDS. [employer] [facility]. provides no warranty or guarantee of the accuracy or completeness of information in this document.
== END 2025-02-20 13:37 | disposition home or self-care (01) ==
LOC: WC 13:36
PROVIDERS: PCP Family Medicine; Visit Provider Physician Assistant
DX: L84 Corns and callosities (principal); E11.65 Type 2 diabetes mellitus with hyperglycemia
CPT/HCPCS: 11055

== ENCOUNTER 2025-03-13 10:38 | Outpatient (OUT) | payer OTHER, SELFPAY ==
--- OUTSIDE RECORDS SUMMARY | 2025-03-12 05:32 | XMS_ITS | Continuity of Care Document ---
Author Organization [facility] Address [address] [place] [address] Phone Care Team Providers [facility] Cashier Name Role Phone Maria Fernanda Olguin NP-C Primary Care Provider Link Ortega APRN Attending Provider Care Teams Patient Care Team Team Status: Active Member Role/Relationship Status Dates Maria Fernanda Olguin NP-Isiah Primary Care Provider Active Visit Care Team Team Status: Active Member Role/Relationship Status Dates Maria Fernanda Olguin NP-C Primary Care Provider Active Start: January 31, 2025 Elissa Mi ProviderActiveStart: January 31, 2025 Patient Care Team Team Status: Inactive Member Role/Relationship Status Dates Maria Fernanda Olguin NP-Isiah Primary Care Provider Active Start: March 12, 2025 End: March 12, 2025Elissa Mi ProviderActiveStart: March 12, 2025 End: March 12, 2025 Chief Complaint and Reason for Visit Chief Complaint Admit Date METER March 12, 2025 9 :46am Reason for Visit Admit Date BMI 50.0-59.9, adult March 12, 2025 9:46am Dietary counseling and surveillance Lina pederson 2024 9:46am Hypertension March 12, 2025 9 :46am Mixed hyperlipidemia March 12, 2025 9:46am Type 2 diabetes mellitus with hyperglyce konrad March 12, 2025 9:46am Vitamin B 12 deficiency March 12 9:46am Wound of right foot March 12, 2025 9 :46am Allergies, Adverse Reactions, Alerts Allergen Type Severity Reaction Last Updated Verified Status No Known Allergies Allergy Unknown March 12, 2025 10:05amYesActive Social History Smoking Status Status Start Date End Date Date of Observa tion Ex-smoker (finding) October 19, 2023 11:42am Observation Status Observation Response Date of Response Legal Sex Male (finding) Sex Assigned At [facility] 1980 Family History Relationship Condition Age at Onset Recorded Date/T juan brother Diabetes mellitus Unknown fatherMalignant neoplasmUnknownmotherDiabetes mellitusUnknown Problems Active Problems Problem Diagnosis/Recorded Date Onset Date Stat us Wound of left foot October 19, 2023 11:32am Unknown Active Wound of right foot October 19, 2023 11:33am Unknown Active snf current use of insulin June 14, 2024 2: 45pm Unknown Active Type 2 diabetes mellitus wit h hyperglycemia July 22, 2023 1:46pm Unknown Active Receiving intravenous antibi otic treatment as outpatient June 14, 2024 3:55pm Unknown Active Diabetes June 14, 2024 2:45pm Unknown Ac tive Vitamin B 12 deficiency March 12, 2025 7:41am Unkn own Active Dietary counseling and surveillance October 19, 2023 10 :39am Unknown Active 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 June 14, 2024 3:54pm Unknown Active Mixed hyperlipidemia October 19, 2023 10:39am Unknown Active BMI 50.0-59.9, adult October 19, 2023 10:40am Unknown Active Hypertension October 19, 2023 10:39am Unknown Acti ve Medications Medication Status Dose Units Route Directions Qty Days Refills S tart Date Stop Date End Date Reason(s) Instructions Adherence Insulin Syringe-Needle U-100 (Bd Insulin Syringe Ultra-Fine) 1 mL 31 gauge x 5/16 syringe Discontinued 0 .Hbvar8678Ubtxloko 2023 12:00amApril 2024 12:56pmUse 1 syringe SQ 4xdayInsulin Glargine-Yfgn 100 unit/mL tzjpmetnAuhahalpkkes65RANSJNTWNQFvqgt hxzel76402Slpuf 2023 2:32pmJune 2023 10:40amType 2 diabetes mellitus with hyperglycemia Type 2 diabetes mellitus with hyperglycemiaInsulin Lispro 100 unit/mL solution Upxslwamkspe2LAUIJE.EUYELEF556Uhpcer 2023 1:47pmSeptember 2023 9:37am Type 2 diabetes mellitus with hyperglycemia Type 2 diabetes mellitus with hyperglycemia snf (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subcutaneously; 1:4 carb ratio ac tid. 1:15 corrective scale ac tid (hs if >200 half dose) as directed; (expect up to 60 units/day)Insulin Glargine-Yfgn 100 unit/mL jgztdnbmPttksuzfatcr61KVHGJCACOC Twice rgphp3515Ygtelcf 2023 8:56amMarch 2024 3:24pmType 2 diabetes mellitus with hyperglycemia Type 2 diabetes mellitus with hyperglycemiaInsulin Lispro 100 unit/mL solution Svamijvvcbjh7SGXKCV.IGSIUOM017Wviovmz 2023 9:07amApril 2024 8:38am Type 2 diabetes mellitus with hyperglycemia Type 2 diabetes mellitus with hyperglycemia intermodal customer service (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subcutaneously; 1:4 carb ratio ac tid. 1:15 corrective scale ac tid (hs if >200 half dose) as directed; (expect up to 66 units/day)Insulin Glargine-Yfgn (Semglee(Insulin Glarg-Yfgn)Pen) 100 unit/mL (3 mL) insulin jgqPmheziyuynqs19CFATWMSWVPTwmcr kubmf401Gjtcb 2024 11:00pm August 21, 2024 8:31amType 2 diabetes mellitus with hyperglycemia Type 2 diabetes mellitus with hyperglycemia snf (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Insulin Syringe-Needle U-100 1 mL 31 gauge x 5/16 syringeActive0.Klavv5757Czysx 2024 12:55pmType 2 diabetes mellitus with hyperglycemia Type 2 diabetes mellitus with hyperglycemia intermodal customer service (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Use 1 syringe SQ 4xdayLiraglutide (Victoza 3- Connor) 0.6 mg/0.1 mL (18 mg/3 mL) pen yaeevaiyZgztqwrzvoup4QMBAGU.MICDNTC995Rmib 2024 7:44amSeptember 2024 7:38amType 2 diabetes mellitus with hyperglycemia Type 2 diabetes mellitus with hyperglycemia intermodal customer service (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inject 1.8mg once dailyLiraglutide (Victoza 3- Connor) 0.6 mg/0.1 mL (18 mg/3 mL) pen vyljydurZjdzsd2JYNTDN.IRJBJHH096Aowinkyot 2024 7:38amType 2 diabetes mellitus with hyperglycemia Type 2 diabetes mellitus with hyperglycemia intermodal customer service (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inject 1.8mg once dailyComplies with drug therapyInsulin Glargine-Yfgn (Semglee(Insulin Glarg-Yfgn)Pen) 100 unit/mL (3 mL) insulin wjmVlzdajzkmujo60GUMVNUPYQRTgdwp wfuvx388Lkjxofmdb 10th, 2025 12:25pm March 12, 2025 10:27amType 2 diabetes mellitus with hyperglycemia Type 2 diabetes mellitus with hyperglycemia intermodal customer service (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Metformin 500 mg uxbohmTprssnrwaryk2VKSWNOyoqz dailyMarch 2023 11:00pmMarch 2023 1:47pmFreeTextSi tablets Orally Twice a day; Note: Source Status: Taking; Refills: 3; Qty: 360 Tablet; Provider: Shannon Maza KMetformin 500 mg hhdaxkEkpzovdnxuhs8306DKWULxoeq daily 3603March 2023 1:45pmApril 2024 8:38amType 2 diabetes mellitus with hyperglycemia Type 2 diabetes mellitus with hyperglycemiaFreeTextSi tablets Orally Twice a day; Note: Source Status: Taking; Refills: 3; Qty: 360 Tablet; Provider: Shannon Maza KInsulin Glargine-Yfgn 100 unit/mL solutionDiscontinuedUNITSUBCUTMarch 2023 11:00pmMarch 2023 8:15amFreeTextSig: INJECT 46 UNITS SQ bid; Note: Source Status: Increase(titrate up to max 50 units/day);Provider: Shannon Tondra KInsulin Glargine-Yfgn 100 unit/mL gpjityfyZyszhivbohmz98ALQKLXROFAPyvxb anugc79253Vchvt 2023 8:10amMarch 2023 2:33pmType 2 diabetes mellitus with hyperglycemia Type 2 diabetes mellitus with hyperglycemiaInsulin Lispro 100 unit/mL solution Oecphnqjmvty4XKCUBZ.COMPLEXJune 2023 11:00pmJune 2023 11:28am subcutaneously; 1:4 carb ratio ac tid. 1:15 corrective scale ac tid (hs if >200 half dose) as directed; (expect up to 60 units/day)Aspirin 81 mg tablet,chewable Dkbhjd24YVKFBtnfeOcuw 2023 11:00pmComplies with drug therapyLisinopril 30 mg tgjcfhDjbefb91WGPGEimbjHrqy 2023 11:00pmComplies with drug therapy Atorvastatin 40 mg idilkrPjcoeq19ODDSWetpjCffr 2023 11:00pmComplies with drug therapyblood sugar diagnostic ([employer] [place] Verio test strips)Discontinued .RouteJune 2023 11:00pmApril 2024 8:11amInsulin Glargine-Yfgn 100 unit/mL natzgpxyGczstndijslo82GXYHQQIRKTMgqad dailyJune 2023 10:40amJune 2023 11:05amType 2 diabetes mellitus with hyperglycemia Type 2 diabetes mellitus with hyperglycemiaLiraglutide (Victoza 3-Connor) 0.6 mg/0.1 mL (18 mg/3 mL) pen irhnvszeQeodwnpkvyrv7KYBDZJ.CIPXQPI509Jcjx 2023 11:00pmApril 2024 8:38amType 2 diabetes mellitus with hyperglycemia Type 2 diabetes mellitus with hyperglycemia snf (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inject 1.8mg once dailyDapagliflozin Propanediol (Farxiga) 10 mg fvckeqXaqhrydgwwvr30WVGGYrnvb adovuct930BgytOctober 18, 2023 11:00pmApril 2024 8:38amType 2 diabetes mellitus with hyperglycemia Type 2 diabetes mellitus with hyperglycemia intermodal customer service (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Insulin Glargine-Yfgn 100 unit/mL solution Kylzjzmjacvr92XZRBCGGIIGHzfvk dailyJune 2023 11:04amJune 2023 11:27amType 2 diabetes mellitus with hyperglycemia Type 2 diabetes mellitus with hyperglycemiaInsulin Glargine-Yfgn 100 unit/mL xtzvkibaNczkvrbhqayu26SMACIQLKFVJwjmg ifjxu1994Xaey 2023 11:27amOctober 2023 8:56amType 2 diabetes mellitus with hyperglycemia Type 2 diabetes mellitus with hyperglycemiaInsulin Lispro 100 unit/mL solution Lloujvclifmz8XGALXI.HMTADCZ578Dkvw 2023 11:27amAugust 2023 1:48pmType 2 diabetes mellitus with hyperglycemia Type 2 diabetes mellitus with hyperglycemia intermodal customer service (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subcutaneously; 1:4 carb ratio ac tid. 1:15 corrective scale ac tid (hs if >200 half dose) as directed; (expect up to 60 units/day)Trazodone 100 mg ahhdjxKbtpfitacifw884FLTCZkwjcFzuellto 2024 12:00amApril 2024 8:11amAmpicillin-Sulbactam (Unasyn) 3 gram recon soln Kpuqlpojktbm9RHVNZuizq 6 hoursFebruary 2024 12:00amApril 2024 8:08am Linezolid 600 mg jlyywfZzydfgseeawm556UITCQakbu dailyFebruary 2024 12:00am August 21, 2024 8:09amTrazodone 100 mg ehigetRrozzl341HPKYHyvdl as neededApril 2024 8:09amComplies with drug therapyInsulin Glargine-Yfgn (Semglee(Insulin Glarg-Yfgn)Pen) 100 unit/mL (3 mL) insulin jjkCfldva59KVUA SUBCUTTwice eknuy659Qbscktuc 3rd, 2025 10:26amType 2 diabetes mellitus with hyperglycemia Type 2 diabetes mellitus with hyperglycemia snf (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Complies with drug therapyBlood Sugar Diagnostic ([employer] Verio Test Strips) stripActive0.ROUTE.FOSPVSVVA0854 January 25, 2024 11:00pmType 2 diabetes mellitus with hyperglycemia Type 2 diabetes mellitus with hyperglycemiaAs directed TIDInsulin Lispro 100 unit/mL iurjicysMayajvvjcfbt8CLTWKJ.PFSAFCX657Llbdudzgv 2023 9:37amOctober 2023 9:12amType 2 diabetes mellitus with hyperglycemia Type 2 diabetes mellitus with hyperglycemia snf (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subcutaneously; 1:4 carb ratio ac tid. 1:15 corrective scale ac tid (hs if >200 half dose) as directed; (expect up to 60 units/day)Pen Needle, Diabetic 32 gauge x 5/32 needleDiscontinued0.RouteApril 2024 11:00pmApril 2024 8:38amAs directed once a dayInsulin Glargine- Yfgn (Semglee(Insulin Glarg-Yfgn)Pen) 100 unit/mL (3 mL) insulin penDiscontinued 45UNITSUBCUTTwice nhnoy880Blxqn 2024 8:31amApril 2024 8:38amType 2 diabetes mellitus with hyperglycemia Type 2 diabetes mellitus with hyperglycemia intermodal customer service (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Dapagliflozin Propanediol (Farxiga) 10 mg giyjcmXwdjxa67DQPAPcmyo erldjyl793Zsnvz 2024 8:32amType 2 diabetes mellitus with hyperglycemia Type 2 diabetes mellitus with hyperglycemia intermodal customer service (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Complies with drug therapyInsulin Lispro 100 unit/mL zhbucltkEtifoh3UJEZYU.HBZZRBK452Xhfzv 2024 8:34amType 2 diabetes mellitus with hyperglycemia Type 2 diabetes mellitus with hyperglycemia snf (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subcutaneously; 1:4 carb ratio ac tid. 1:15 corrective scale ac tid (hs if >200 half dose) as directed; (expect up to 75 units/day)Complies with drug therapyLiraglutide (Victoza 3-Connor) 0.6 mg/0.1 mL (18 mg/3 mL) pen hlvexkzuMptojoazhihd7BUWAPH.QZFRNTE854Sxkqp 2024 8:35am October 25, 2024 7:44amType 2 diabetes mellitus with hyperglycemia Type 2 diabetes mellitus with hyperglycemia intermodal customer service (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inject 1.8mg once dailyMetformin 500 mg tablet Fuqtyxduuzwt5278NWYECdmvy qrbfk6136Bvgdd 2024 8:36amJuly 2024 9:43am Type 2 diabetes mellitus with hyperglycemia Type 2 diabetes mellitus with hyperglycemiaFreeTextSi tablets Orally Twice a day; Note: Source Status: Taking; Refills: 3; Qty: 360 Tablet; Provider: Shannon Olmsteadulin Glargine-Yfgn (Semglee(Insulin Glarg-Yfgn)Pen) 100 unit/mL (3 mL) insulin lnpUaixbwgxuuhn84NTXKATCVENPlsxg illaw007Xmhgm 2024 8:37amJuly 2024 9:42amType 2 diabetes mellitus with hyperglycemia Type 2 diabetes mellitus with hyperglycemia intermodal customer service (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Pen Needle, Diabetic 32 gauge x 5/32 needle Discontinued0.Cbzio5759Lwgsj 2024 8:37amJuly 2024 9:16amType 2 diabetes mellitus with hyperglycemia Type 2 diabetes mellitus with hyperglycemia snf (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As directed once a day for victozapen needle, diabetic (Merline 2nd Gen Pen Needle)Discontinued.RouteJuly 2024 11:00pmJuly 2024 9:42amInsulin Glargine-Yfgn (Semglee(Insulin Glarg-Yfgn)Pen) 100 unit/mL (3 mL) insulin rjrFrxhojugihbj15WILTCZWSTYTxxpt mwezf843Zrew 2024 9:41amSeptember 2024 12:25pmType 2 diabetes mellitus with hyperglycemia Type 2 diabetes mellitus with hyperglycemia intermodal customer service (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Metformin 500 mg jhwaycRmrqvi9112ZSORWxmxj pgxby0822Rcpw 2024 9:42amType 2 diabetes mellitus with hyperglycemia Type 2 diabetes mellitus with hyperglycemiaFreeTextSi tablets Orally Twice a day; Note: Source Status: Taking; Refills: 3; Qty: 360 Tablet; Provider: Shannon Flores with drug therapyPen Needle, Diabetic 32 gauge x 5/32 needle Active0.ROUTE.ZYWWZZEKM5455Vezr 2024 11:00pmType 2 diabetes mellitus with hyperglycemia Type 2 diabetes mellitus with hyperglycemia snf (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qid Relevant Diagnostic Tests and/or Laboratory Data Laboratory Results Test Collection Date/Time Result Date/Time Result Interpretation Reference Range Result Comment Performing Site Cholesterol Level January 31, 2025 12:11pm Septemb er 2024 12:12pm 96 mg/dL Glucose LevelSept2024 12:12pmSeptember 2024 12:14pm89 mg/dL Urine Microalbumin mg/dlSeptember 2024 12:15pmSeptember 2024 12:15pm 3.1Thyroid Stimulating Hormone 3rd GenSeptember 2024 12:16pmSeptember 2024 12:16pm1.71Vitamin B12 LevelSeptember 2024 12:16pmSeptember 2024 12:13xp568 pg/mLBedside Hemoglobin D1uBwcuqeor2024 10:09am March 12, 2025 10:10am7.9 %Bedside GlucoseNov2024 10:09amNovember 2024 10:22bl803BFU CholesterolSeptember 2024 12:11pmSeptember 2024 12:12pm24 mg/dLBlood Urea NitrogenSeptember 2024 12:12pmSeptember 2024 12:14pm20 mg/dLUrine CreatinineSeptember 2024 12:15pmSeptember 2024 12:36pn94Dkmqdehgpbxif LevelSeptember 2024 12:11pmSeptember 2024 12:27rj458 mg/dLCreatinineSeptember 2024 12:12pmSeptember 2024 12:14pm0.96 mg/dLUrine Microalbumin/Creatinine RatioSeptember 2024 12:15pmSeptember 2024 12:89ee79GPE Cholesterol (Measured)January 31, 2025 12:11pmSeptember 2024 12:12pm49 mg/dLSodium LevelSeptember 2024 12:12pmSeptember 2024 12:95vd535 mmol/LVLDL CholesterolSeptember 2024 12:11pmSeptember 2024 12:12pm72 mg/dLPotassium LevelSeptember 2024 12:12pmSeptember 2024 12:14pm4.6 mmol/LCholesterol/HDL RatioSeptember 2024 12:11pmSeptember 2024 12:12pm4.0Chloride LevelSeptember 2024 12:12pmSeptember 2024 12:84ip219 mmol/LCarbon Dioxide LevelSeptember 2024 12:12pmSeptember 2024 12:14pm26 mmol/LCalcium LevelSeptember 2024 12:12pmSeptember 2024 12:14pm9.2 mg/dLTotal ProteinSeptember 2024 12:12pmSept2024 12:14pm7.2 g/dLAlbuminSeptember 2024 12:12pmSept2024 12:14pm4.4 g/dLTotal BilirubinSept2024 12:12pmSept2024 12:14pm0.5 mg/dLAspartate Amino Transf (AST/SGOT)January 31, 2025 12:12pmSept2024 12:14pm21 U/LAlanine Aminotransferase (ALT/SGPT)January 31, 2025 12:12pmSept2024 12:14pm26 U/LAlkaline PhosphataseSeptember 2024 12:12pmSept2024 12:60aa118 U/LEstimated GFR (Non- AmericanSept2024 12:12pmSept2024 12:14pm99 mL/min Vital Signs Vital Reading Result Reference Range Collection Date/Time Height 72 [in_i] March 12, 2025 10:37nqNbxxzw162.30 kgNov2024 10:00amHeart Rate86 /lzs28-547PlygmsciMarch 12, 2025 10:00amRespiratory rate18 /svs05-79AoklqpwbMarch 12, 2025 10:00amOxygen saturation by Pulse xoqqzwbr58 %95-100March 12, 2025 10:00amBP Dmcnagdk047 mm[Hg]100-140March 12, 2025 10:05amBP Mfddnfafh11 mm[Hg]60-100March 12, 2025 10:05amBMI (Body Mass Index)51.8 kg/g5Szvxxhuh2024 10:00am Advance Directives Advance Directive Response Recorded Date/ Time Advance Directives No March 11, 2020 12:01pm Insurance Providers Guarantor Trev Lozada Ramsey Address [address] [place] [id number] Info.Home Phone: Payer Group Member ID Coverage Type Subscriber Relationship to Subscriber Effective Date Expiration Date [employer] Id: [id number] [employer] Id: [id number] [address] [facility] [address] Home Phone: Email: [email or web address] Encounters Encounter Location(s) Arrival/Admit Date Discharge/Departure Date Discharge/Departure Disposition Provider(s) Non-patient / Non-visit -[facility] Meera Avina January 31, 2025 1:11pm MICHAEL Mi-SUDHEEReparted Physician/Provider Office Visit-[facility] 2024 9:46amNovember 2024 10:26amDischarged to home care or self care (routine discharge)BELLA Mi Recent Diagnosis Onset Date Admit Date BMI 50.0-59.9, adult Unknown March 9:46am Dietary counseling and surveillance Unknown March 12, 2025 9:46am Hypertension Unknown March 12 9:46am Mixed hyperlipidemia Unknown March 9:46am Type 2 diabetes mellitus with hyperglycemia Unkn own March 12, 2025 9:46am Vitamin B 12 deficiency Unknown March 12, 2025 9:46am Wound of right foot Unknown March 9:46am Assessments Diagnosis Onset Date Resolution Status Admit Date BMI 50.0-59.9, adult acuteNov2024 9:46amDietary counseling and surveillanceacuteNov2024 9:46amHypertensionacuteNov2024 9:46amMixed hyperlipidemia acuteNov2024 9:46amType 2 diabetes mellitus with hyperglycemiaacute March 12, 2025 9:46amVitamin B 12 deficiencyacuteNov2024 9:46am Wound of right footacuteNov2024 9:46am Plan of Treatment Author Link Ortega [facility] 10:26amType 2 diabetes mellitus ? Clinical Notes: 1. Uncontrolled, a Type 2 diabetes with A1c of 7.9% 2. Blood glucose levels improved, remain above target. Pt admits to missed meal dose when at work, encouraged to take lispro w/ him to work for improved postprandial glycemia. See changes below. Continue: Victoza 1.8mg sq qd Farxiga 10mg 1 tab po qd Metformin 1000 mg 1 tab po bid increase Semglee 46 to 48 units sq bid. Lispro ICR 1:4 ac tid plus corrective scale 1:15 ac (hs if >200 half dose). Reviewed with pt how to titrate basal/bolus insulin according to fasting am/meal to meal glucose pattern. Pt verbalizes understanding. 3. Patient is alert, oriented and receptive to making changes or counseling Notes: Seen for an assessment of current glucose pattern, changes in treatment plan, time was spent counseling and coordination of care related to diabetes, risks, and benefits of treatment, medications, and side effects. TOPICS REVIEWED: 1. Time was spent reviewing: a. Basic concepts of diabetes, progressive beta cell , concepts of basal/bolus/corrective insulin requirements. Basal: The goal is fasting blood glucose of 90-130mg. If fasting blood glucose starts to run under [...] 100-150mg range b. Nutrition: Concepts of healthy diet reviewed, encouraged to decrease saturated fat in diet [...] back meals reveal effectiveness of bolus dosing. 5. [facility]. Contact office if any issues or concerns with patterns of hypoglycemia, hyperglycemia, or diabetes medication issues. 6. Prescriptions: Dona Mortont- BD Pen needles, Metformin sent 7. Prescriptions will not be filled unless you are compliant with follow up appointments or have a follow up appointment scheduled as ordered by your provider. Refills should be requested at the time of your visit. on julissa- managed by pcp 2024 ADA Guidelines- target blood pressure < 130/80, if it can be safely attained. 02/01 ldl 49- on statin; managed by pcp 2024 ADA guidelines- people with Diabetes age 40-75 at higher CV risk including those with one or more additional ASCVD risk factors, high intensity statin therapy recommended to reduce ldl by >50% of baseline and to obtain goal ldl <70 5 ADA guidelines- people with Diabetes age 40-75 moderate-intensity statin therapy in those without ASCVD risk factors see above see above Keep f/u w/ Dr. Feldman 02/01 vit b12 450 at target Future Tests Future scheduled test information is unavailable Pending Tests Pending diagnostic test information is unavailable Future Visits Future appointment information is unavailable Future Procedures Future procedure information is unavailable Future Medications Future medication information is unavailable Patient Instructions Patient instructions are unavailable
--- OUTSIDE RECORDS SUMMARY | 2025-03-13 10:40 | XMS_ITS | Encounter Summary ---
Author Organization [facility] Healthcare Address [address] [place] [address] Care Team Providers Care Control Officer Name Role Phone Blossom Cody MEDICINE AND HEALTH SERVICE MANAGER Unavailable [phone] Tres Oleary MD Primary Care Provider [phone] Encounter Details DateTypeDepartmentCare Team (Latest Contact Info)Lmurzotjqst98/30/2025Refill [facility] [address] [place] [address] Tres Oleary MD [address] [place] [address] Essential hypertension Social History Tobacco UseTypesPacks/DayYears UsedDateSmoking Tobacco: NeverSmokeless Tobacco: NeverAlcohol UseStandard Drinks/WeekCommentsYes4 (1 standard drink = 0.6 oz pure alcohol)caffeine: 2-3 cups dailyHumiliation, Afraid, Rape, and Kick questionnaireAnswerDate RecordedWithin the last year, have you been afraid of your partner or ex-partner?Patient fpdfxunt11/14/2023Within the last year, have you been humiliated or emotionally abused in other ways by your partner or ex-partner?Patient mgaeqpux50/14/2023Within the last year, have you been kicked, hit, slapped, or otherwise physically hurt by your partner or ex-partner?Patient /14/2023Within the last year, have you been raped or forced to have any kind of sexual activity by your partner or ex-partner?Patient declined 03/23/2023Social Connection and Isolation PanelAnswerDate RecordedIn a typical week, how many times do you talk on the phone with family, friends, or neighbors?Twice a week03/23/2023How often do you get together with friends or relatives?Twice a week03/23/2023How often do you attend protestant or confucianism services?More than 4 times per year03/23/2023o you belong to any clubs or organizations such as protestant groups, unions, fraPlatter or athletic groups, or school groups?Patient dboptwfz13/14/2023How often do you attend meetings of the clubs or organizations you belong to?Patient mtrxovme30/14/2023re you , , , , never , or living with a partner?Patient ebrxpsyv15/14/2023UDIT-CAnswerDate RecordedQ1: How often do you have a drink containing alcohol?2-3 times a week01/31/2025Q2: How many drinks containing alcohol do you have on a typical day when you are drinking?1 or Q3: How often do you have six or more drinks on one occasion?Never01/31/2025Overall Financial Resource Strain (CARDIA)AnswerDate RecordedHow hard is it for you to pay for the very basics like food, housing, medical care, and heating?Patient mtnwwmsa03/14/2023Hunger Vital SignAnswerDate RecordedWithin the past 12 months, you worried that your food would run out before you got the money to buymore. Patient nohpryfl60/14/2023Within the past 12 months, the food you bought just didn't last and you didn't have money to get more.Patient buanerqt86/14/2023 PRAPARE - TransportationAnswerDate RecordedIn the past 12 months, has lack of transportation kept you from medical appointments or from getting medications? Patient zuoxfipy94/14/2023In the past 12 months, has lack of transportation kept you from meetings, work, or from getting things needed for daily living?Patient cczolpbv27/14/2023Housing Stability Vital SignAnswerDate RecordedIn the last 12 months, was there a time when you were not able to pay the mortgage or rent on time?Patient ybzchou5203/23/2023Number of Places Lived in the Last YearNot on file 03/23/2023In the last 12 months, was there a time when you did not have a steady place to sleep or slept in ashelter (including now)?Patient xubqvkx3103/23/2023Sex and Gender InformationValueDate RecordedSex Assigned at BirthNot on fileLegal QioQfmg4907/22/2022 6:33 PM EDTGender IdentityNot on fileSexual OrientationNot on filedocumented as of this encounter Plan of Treatment DateTypeDepartmentCare Team (Latest Contact Info)Xhnrvjgyxdp64/16/2025 9:30 AM ESTOffice Visit [facility] [address] [place] [phone] Maria Fernanda Olguin NP [address] [place], [place] [id number] documented as of this encounter Goals GoalPatient Goal TypeAssociated ProblemsRecent ProgressPatient-Stated?Author Help patient manage antidepressant medication Care PlanPatient on antidepressant monitoring planMaria Fernanda Moise NP Baseline PHQ-9 Care PlanBaseline PHQ-9Maria Fernanda Moise NPdocumented as of this encounter Visit Diagnoses Diagnosis Essential hypertension Unspecified essential hypertension documented in this encounter Additional Health Concerns Active ProblemsNoted DateDiagnosed DatePatient on antidepressant monitoring plan 01/31/2025aseline PHQ-9001/31/2025documented as of this encounter Care Teams Team MemberRelationshipSpecialtyStart DateEnd Date Tres Oleary MD [address], [place] [id number] PCP - GeneralFamily Medicine01/11/25 Blossom Cody NP Nurse PractitionerFamily Medicine01/19/24documented as of this encounter
--- OUTSIDE RECORDS SUMMARY | 2025-03-13 10:40 | XMS_ITS | Encounter Summary ---
Author Organization [facility] Address [address] [place] [address] Care Team Providers Care Compounding Technician Name Role Phone Natalie Hernandez MD Primary Care Provider [phone] Blossom Cody PIPE COVERER Unavailable Tres Oleary MD Primary Care Provider [phone] Encounter Details DateTypeDepartmentCare Team (Latest Contact Info)Uwiowmugkdx40/18/2024Clinisync Result Encounter [facility] Unsolicited Provider, Generic External Data Social History Tobacco UseTypesPacks/DayYears UsedDateSmoking Tobacco: NeverSmokeless Tobacco: NeverAlcohol UseStandard Drinks/WeekCommentsYes4 (1 standard drink = 0.6 oz pure alcohol)Humiliation, Afraid, Rape, and Kick questionnaireAnswerDate Recorded Within the last year, have you been afraid of your partner or ex-partner?Patient kbppwnyt36/14/2023Within the last year, have you been humiliated or emotionally abused in other ways by your partner or ex-partner?Patient ebwmpwgb05/14/2023 Within the last year, have you been kicked, hit, slapped, or otherwise physically hurt by your partner or ex-partner?Patient wilhrbyy17/14/2023Within the last year, have you been raped or forced to have any kind of sexual activity by your partner or ex-partner?Patient /14/2023Social Connection and Isolation PanelAnswerDate RecordedIn a typical week, how many times do you talk on the phone with family, friends, or neighbors?Twice a week03/23/2023How often do you get together with friends or relatives?Twice a week03/23/2023How often do you attend hindu or pentecostal services?More than 4 times per year03/23/2023o you belong to any clubs or organizations such as hindu groups, unions, fraternal or athletic groups, or school groups?Patient emevquix92/14/2023How often do you attend meetings of the clubs or organizations you belong to?Patient uaxlfmgu77/14/2023re you , , , , never , or living with a partner?Patient igleitoa86/14/2023UDIT-CAnswerDate RecordedQ1: How often do you have a [...] like food, housing, medical care, and heating?Patient bpfpylri98/14/2023Hunger Vital SignAnswerDate RecordedWithin the past 12 months, you worried that your food would run out before you got the money to buymore.Patient viczrplk61/14/2023Within the past 12 months, the food you bought just didn't last and you didn't have money to get more.Patient xpeoxaxf78/14/2023RAPARE - TransportationAnswerDate RecordedIn the past 12 months, has lack of transportation kept you from medical appointments or from getting medications?Patient zzcqqteb26/14/2023In the past 12 months, has lack of transportation kept you from meetings, work, or from getting things needed for daily living?Patient njyxtmjy65/14/2023Housing Stability Vital Sign AnswerDate RecordedIn the last 12 months, was there a time when you were not able to pay the mortgage or rent on time?Patient sffwpgl9103/23/2023Number of Places Lived in the Last YearNot on file03/23/2023In the last 12 months, was there a time when you did not have a steady place to sleep or slept in ashelter (including now)?Patient kxqyhcz0103/23/2023Sex and Gender InformationValueDate RecordedSex Assigned at BirthNot on fileLegal MyoYidm9707/22/2022 6:33 PM EDT Gender IdentityNot on fileSexual OrientationNot on filedocumented as of this encounter Functional Status * AUDIT-C ScoreAnswerDate of TlaurygpmqWwlyud531/24/2025 9:27 AM Nohemi Menchaca MA * QuestionAnswerDate of AssessmentAuthorQ1: How often do you have a drink containing alcohol?2-3 times a week01/31/2025 9:27 AM Nohemi Menchaca MAQ2: How many drinks containing alcohol do you have on a typical day when you are drinking?1 or 9:27 AM Nohemi Menchaca MAQ3: How often do you have six or more drinks on one occasion?Never01/31/2025 9:27 AM Nohemi Pompa MA documented as of this encounter Plan of Treatment DateTypeDepartmentCare Team (Latest Contact Info)Yuaibeurzqy37/16/2025 9:30 AM ESTOffice Visit [facility] [address] [place] [phone] Maria Fernanda Olguin NP [address] [place] [address] documented as of this encounter Procedures Procedure NamePriorityDate/TimeAssociated DiagnosisCommentsANAEROBIC CULT, EXTENDED INHFYSfhdbms96/18/2024 10:07 AM EST TISSUE JANWYTHShgkwyl28/18/2024 10:07 AM EST ANAEROBIC TFUYDMFMcagevt42/18/2024 10:07 AM EST AEROBIC LGKBRZMVmnzims81/18/2024 10:07 AM EST GRAM STAIN TIJMMVHdlgded76/18/2024 10:07 AM EST GRAM STAIN RXGDLHWynlavf93/18/2024 10:07 AM EST FUNGUS GTYBUDctmuca96/18/2024 10:07 AM EST FUNGUS OTBIWRphodzf07/18/2024 10:07 AM EST ACID FAST JBUOLCLTdgdtyq00/18/2024 10:07 AM EST ACID FAST VLLVUZSZxkcdis45/18/2024 10:07 AM EST FUNGUS (MYCOLOGY) VKOMOOZMaajxsc43/18/2024 10:07 AM EST FUNGUS (MYCOLOGY) EFGGQKPModzfsi57/18/2024 10:07 AM EST ACID FAST HZCNPIjqfeco97/18/2024 10:07 AM EST ACID FAST ANSICSbvikdj22/18/2024 10:07 AM EST AFB SPECIMEN FDZQIXOTYQOpsgdyp89/18/2024 10:07 AM EST AFB SPECIMEN UKIUOXJOOPQmvtybi63/18/2024 10:07 AM EST XR FOOT RT MIN 3V106/27/2023 9:03 AM EST documented in this encounter Results * ANAEROBIC CULT, EXTENDED INCUB (04/26/2024 10:07 AM EST)ComponentValueRef RangeTest MethodAnalysis TimePerformed AtPathologist SignatureANAEROBIC CULT, EXTENDED INCUB ??Anaerobic Cult, Extended Incub TBHANAEROBIC CULT, EXTENDED INCUBSpecimen has been received and testing has been initiated.TBHANAEROBIC CULT, EXTENDED INCUBOrganism: Prevotella disiens :[facility] ANAEROBIC CULT, EXTENDED INCUB*ABNORMAL*TBHANAEROBIC CULT, EXTENDED INCUBScant growthTBHANAEROBIC CULT, EXTENDED INCUBStudies at [employer] have confirmed theTBHANAEROBIC CULT, EXTENDED INCUBobservations of others who have demonstrated thatTBHANAEROBIC CULT, EXTENDED INCUBPrevotella, Porphyromonas and Bacteroides speciesTBHANAEROBIC CULT, EXTENDED INCUBother than Bacteroides fragilis group are routinelyTBHANAEROBIC CULT, EXTENDED INCUBsusceptible to Cefoxitin, Chloramphenicol, andTBHANAEROBIC CULT, EXTENDED INCUBMetronidazole and are usually resistant to Penicillin.TBHANAEROBIC CULT, EXTENDED INCUB Prevotella disiensTBHANAEROBIC CULT, EXTENDED INCUB ??O:PREDIS Isolated TBHSpecimen (Source)Anatomical Location / LateralityCollection Method / Volume Collection TimeReceived Time04/26/2024 10:07 AM EST04/26/2024 12:13 PM EST Narrative [facility] - 05/11/2024 4:08 PM EST Authorizing ProviderResult TypeResult StatusGeneric External Data ProviderLAB BLOOD ORDERABLESFinal ResultPerforming OrganizationAddressCity/State/[facility] Phone Number [facility] * ANAEROBIC CULTURE (04/26/2024 10:07 AM EST)ComponentValueRef RangeTest Method Analysis TimePerformed AtPathologist SignatureANAEROBIC CULTURE ??Anaerobic Culture TBHANAEROBIC CULTUREHolding for possible anaerobes.TBHANAEROBIC CULTUREOrganism: Prevotella disiens :TBHANAEROBIC CULTURE*ABNORMAL*TBHANAEROBIC CULTURELight growthTBHANAEROBIC CULTUREStudies at [employer] have confirmed [facility] ANAEROBIC CULTUREobservations of others who have demonstrated thatTBHANAEROBIC CULTUREPrevotella, Porphyromonas and Bacteroides speciesTBHANAEROBIC CULTURE other than Bacteroides fragilis group are routinelyTBHANAEROBIC CULTURE susceptible to Cefoxitin, Chloramphenicol, andTBHANAEROBIC CULTUREMetronidazole and are usually resistant to Penicillin.TBHANAEROBIC CULTUREPrevotella disiens TBHANAEROBIC CULTURE ??O:PREDIS Isolated TBHSpecimen (Source)Anatomical Location / LateralityCollection Method / Volume Collection TimeReceived Time04/26/2024 10:07 AM EST04/26/2024 12:13 PM EST Narrative [facility]IN[facility] - 05/02/2024 3:08 PM EST Authorizing ProviderResult TypeResult StatusGeneric External Data ProviderLAB BLOOD ORDERABLESFinal ResultPerforming OrganizationAddressCity/State/ZIP Code Phone Number [facility] * FUNGUS (MYCOLOGY) CULTURE (04/26/2024 10:07 AM EST)ComponentValueRef RangeTest MethodAnalysis TimePerformed AtPathologist SignatureFUNGUS (MYCOLOGY) CULTURE ??Fungus (Mycology) Culture WILL FOLLOW TBHFUNGUS (MYCOLOGY) CULTURENo yeast or mold isolated after 4 weeks.TBHFUNGUS (MYCOLOGY) CULTUREPerformed at: [facility] HospitalTBHFUNGUS (MYCOLOGY) CULTURE [address] [place], [place] [id number] (MYCOLOGY) CULTURELab Director: Lalo Everett PhD, Phone: [phone] (Source)Anatomical Location / LateralityCollection Method / VolumeCollection TimeReceived Time04/26/2024 10:07 AM EST04/26/2024 12:13 PM EST Narrative CLINISYNC - 05/25/2024 12:08 PM EST Comment right foot ulcer Authorizing ProviderResult TypeResult StatusGeneric External Data ProviderLAB BLOOD ORDERABLESFinal ResultPerforming OrganizationAddGeisinger[facility]oms[facility] Hospitalty/State/ZIP Code Phone Number [facility] * FUNGUS STAIN (04/26/2024 10:07 AM EST)ComponentValueRef RangeTest Method Analysis TimePerformed AtPathologist SignatureFUNGUS STAIN ??Fungus Stain TBHFUNGUS STAINKOH/Calcofluor preparation: no fungus observed.TBHSpecimen (Source)Anatomical Location / LateralityCollection Method / VolumeCollection TimeReceived Time04/26/2024 10:07 AM EST04/26/2024 12:13 PM EST Narrative CLINISYNC - 05/25/2024 12:08 PM EST Comment right foot ulcer Authorizing ProviderResult TypeResult StatusGeneric External Data ProviderLAB BLOOD ORDERABLESFinal ResultPerforming OrganizationAddGeisinger-[facility]oms[facility] Hospitalty/State/ZIP Code Phone Number [facility] * FUNGUS (MYCOLOGY) CULTURE (04/26/2024 10:07 AM EST)ComponentValueRef RangeTest MethodAnalysis TimePerformed AtPathologist SignatureFUNGUS (MYCOLOGY) CULTURE ??Fungus (Mycology) Culture WILL FOLLOW TBHFUNGUS (MYCOLOGY) CULTURENo yeast or mold isolated after 4 weeks.TBHFUNGUS (MYCOLOGY) CULTUREPerformed at: [facility] hospitalTBHFUNGUS (MYCOLOGY) CULTURE [address] [place], [place] [id number] (MYCOLOGY) CULTURELab Director: Lalo Everett PhD, Phone: [phone] (Source)Anatomical Location / LateralityCollection Method / VolumeCollection TimeReceived Time04/26/2024 10:07 AM EST04/26/2024 12:13 PM EST Narrative CLINISYND - 05/25/2024 12:08 PM EST Comment right foot fascia for culture Authorizing ProviderResult TypeResult StatusGeneric External Data ProviderLAB BLOOD ORDERABLESFinal ResultPerforming OrganizationAddressCity/State/ZIP Code Phone Number [facility] * FUNGUS STAIN (04/26/2024 10:07 AM EST)ComponentValueRef RangeTest Method Analysis TimePerformed AtPathologist SignatureFUNGUS STAIN ??Fungus Stain TBHFUNGUS STAINKOH/Calcofluor preparation: no fungus observed.TBHSpecimen (Source)Anatomical Location / LateralityCollection Method / VolumeCollection TimeReceived Time04/26/2024 10:07 AM EST04/26/2024 12:13 PM EST Narrative [facility] - 05/25/2024 12:08 PM EST Comment right foot fascia for culture Authorizing ProviderResult TypeResult StatusGeneric External Data ProviderLAB BLOOD ORDERABLESFinal ResultPerforming OrganizationAddressCity/State/ZIP Code Phone Number [facility] * GRAM STAIN RESULT (04/26/2024 10:07 AM EST)ComponentValueRef RangeTest Method Analysis TimePerformed AtPathologist SignatureGRAM STAIN RESULT ??Gram Stain Result TBHGRAM STAIN RESULTNo white blood cells seen.TBHGRAM STAIN RESULTTBHGRAM STAIN RESULTRare gram positive cocciTBHGRAM STAIN RESULTPerformed at: [facility] Labssm [facility] DublinTBHGRAM STAIN [id number] [place], [place] [id number] STAIN RESULTLab Director: Lalo Everett PhD, Phone: [phone] (Source) Anatomical Location / LateralityCollection Method / VolumeCollection Time Received Time04/26/2024 10:07 AM EST04/26/2024 12:13 PM EST Narrative CLINISYNC - 05/02/2024 3:08 PM EST Authorizing ProviderResult TypeResult StatusGeneric External Data ProviderLAB BLOOD ORDERABLESFinal ResultPerforming OrganizationAddressCity/State/ZIP Code Phone Number [facility] * AEROBIC CULTURE (04/26/2024 10:07 AM EST)ComponentValueRef RangeTest Method Analysis TimePerformed AtPathologist SignatureAEROBIC CULTURE ??Aerobic Culture WILL FOLLOW TBHAEROBIC CULTURETBHAEROBIC CULTUREMixed skin floraTBHSpecimen (Source) Anatomical Location / LateralityCollection Method / VolumeCollection Time Received Time04/26/2024 10:07 AM EST04/26/2024 12:13 PM EST Narrative CRISTYISYND - 05/02/2024 3:08 PM EST Authorizing ProviderResult TypeResult StatusGeneric External Data ProviderLAB BLOOD ORDERABLESFinal ResultPerforming OrganizationAddressCity/State/ZIP Code Phone Number [facility] * ACID FAST CULTURE (04/26/2024 10:07 AM EST)ComponentValueRef RangeTest Method Analysis TimePerformed AtPathologist SignatureACID FAST CULTURE ??Acid Fast Culture ?Specimen has been received and testing has been initiated. TBHACID FAST CULTURENegativeTBHACID FAST CULTURENo acid fast bacilli isolated after 6 weeks.TBHACID FAST CULTUREPerformed at: [facility] HospitalTBHACID FAST [id number] [place], [place] [id number] FAST CULTURELab Director: Lalo Everett PhD, Phone: [phone] (Source)Anatomical Location / LateralityCollection Method / VolumeCollection TimeReceived Time04/26/2024 10:07 AM EST04/26/2024 12:13 PM EST Narrative CLINISYND - 06/10/2024 9:09 AM EST Authorizing ProviderResult TypeResult StatusGeneric External Data ProviderLAB BLOOD ORDERABLESFinal ResultPerforming OrganizationAddressty/State/ZIP Code Phone Number [facility] * ACID FAST SMEAR (04/26/2024 10:07 AM EST)ComponentValueRef RangeTest Method Analysis TimePerformed AtPathologist SignatureACID FAST SMEAR ??Acid Fast Smear ?Negative TBHSpecimen (Source)Anatomical Location / LateralityCollection Method / Volume Collection TimeReceived Time04/26/2024 10:07 AM EST04/26/2024 12:13 PM EST Narrative CLINISYNC - 06/10/2024 9:09 AM EST Authorizing ProviderResult TypeResult StatusGeneric External Data ProviderLAB BLOOD ORDERABLESFinal ResultPerforming OrganizationAddressty/State/ZIP Code Phone Number [facility] * AFB SPECIMEN PROCESSING (04/26/2024 10:07 AM EST)ComponentValueRef RangeTest MethodAnalysis TimePerformed AtPathologist SignatureAFB SPECIMEN PROCESSING ??AFB Specimen Processing TBHAFB SPECIMEN PROCESSINGTissue GrindingTBHSpecimen (Source)Anatomical Location / LateralityCollection Method / VolumeCollection TimeReceived Time04/26/2024 10:07 AM EST04/26/2024 12:13 PM EST Narrative CLINISYND - 06/10/2024 9:09 AM EST Authorizing ProviderResult TypeResult StatusGeneric External Data ProviderLAB BLOOD ORDERABLESFinal ResultPerforming OrganizationAddGeisinger-[facility] Hospitalty/[facility]/ZIP Code Phone Number [facility] * TISSUE CULTURE (04/26/2024 10:07 AM EST)ComponentValueRef RangeTest Method Analysis TimePerformed AtPathologist SignatureTISSUE CULTURE ??Tissue Culture WILL FOLLOW TBHTISSUE CULTURETBHTISSUE CULTURESpecimen has been received and testing has been initiated.TBHSpecimen (Source)Anatomical Location / LateralityCollection Method / VolumeCollection TimeReceived Time04/26/2024 10:07 AM EST04/26/2024 12:13 PM EST Narrative CLINISYND - 05/11/2024 4:08 PM EST Authorizing ProviderResult TypeResult StatusGeneric External Data ProviderLAB BLOOD ORDERABLESFinal ResultPerforming OrganizationAddressty/State/ZIP Code Phone Number [facility] * GRAM STAIN RESULT (04/26/2024 10:07 AM EST)ComponentValueRef RangeTest Method Analysis TimePerformed AtPathologist SignatureGRAM STAIN RESULT ??Gram Stain Result TBHGRAM STAIN RESULTNo white blood cells seen.TBHGRAM STAIN RESULTTBHGRAM STAIN RESULTNo organisms seenTBHGRAM STAIN RESULTPerformed at: [facility] HospitalTB GRAM STAIN [id number] [place], [place] [id number] STAIN RESULTLab Director: Lalo Everett PhD, Phone: [phone] (Source)Anatomical Location / LateralityCollection Method / VolumeCollection TimeReceived Time 04/26/2024 10:07 AM EST04/26/2024 12:13 PM EST Narrative CLINISYNC - 05/11/2024 4:08 PM EST Authorizing ProviderResult TypeResult StatusGeneric External Data ProviderLAB BLOOD ORDERABLESFinal ResultPerforming OrganizationAddressty/State/ZIP Code Phone Number [facility] * ACID FAST CULTURE (04/26/2024 10:07 AM EST)ComponentValueRef RangeTest Method Analysis TimePerformed AtPathologist SignatureACID FAST CULTURE ??Acid Fast Culture ?Specimen has been received and testing has been initiated. TBHACID FAST CULTURENegativeTBHACID FAST CULTURENo acid fast bacilli isolated after 6 weeks.TBHACID FAST CULTUREPerformed at: [facility] HospitalTBHACID FAST [id number] [place], [place] [id number] FAST CULTURELab Director: Lalo Everett PhD, Phone: [phone] (Source)Anatomical Location / LateralityCollection Method / VolumeCollection TimeReceived Time04/26/2024 10:07 AM EST04/26/2024 12:13 PM EST Narrative CLINISYNC - 06/10/2024 9:09 AM EST Comment right foot fascia for culture Authorizing ProviderResult TypeResult StatusGeneric External Data ProviderLAB BLOOD ORDERABLESFinal ResultPerforming OrganizationAddGeisinger-[facility] Hospitalty/State/ZIP Code Phone Number [facility] * ACID FAST SMEAR (04/26/2024 10:07 AM EST)ComponentValueRef RangeTest Method Analysis TimePerformed AtPathologist SignatureACID FAST SMEAR ??Acid Fast Smear ?Negative TBHSpecimen (Source)Anatomical Location / LateralityCollection Method / Volume Collection TimeReceived Time04/26/2024 10:07 AM EST04/26/2024 12:13 PM EST Narrative CLINISYNC - 06/10/2024 9:09 AM EST Comment right foot fascia for culture Authorizing ProviderResult TypeResult StatusGeneric External Data ProviderLAB BLOOD ORDERABLESFinal ResultPerforming OrganizationAddressty/State/ZIP Code Phone Number [facility] * AFB SPECIMEN PROCESSING (04/26/2024 10:07 AM EST)ComponentValueRef RangeTest MethodAnalysis TimePerformed AtPathologist SignatureAFB SPECIMEN PROCESSING ??AFB Specimen Processing TBHAFB SPECIMEN PROCESSINGTissue GrindingTBHSpecimen (Source)Anatomical Location / LateralityCollection Method / VolumeCollection TimeReceived Time04/26/2024 10:07 AM EST04/26/2024 12:13 PM EST Narrative CLINISYNC - 06/10/2024 9:09 AM EST Comment right foot fascia for culture Authorizing ProviderResult TypeResult StatusGeneric External Data ProviderLAB BLOOD ORDERABLESFinal ResultPerforming OrganizationAddressCity/State/ZIP Code Phone Number [facility] * XR FOOT RT MIN 3V (04/26/2024 9:03 AM EST)Anatomical RegionLateralityModality OtherSpecimen (Source)Anatomical Location / LateralityCollection Method / VolumeCollection TimeReceived Time04/26/2024 9:03 AM EST Narrative 04/26/2024 9:06 AM EST [facility] ?[address] ? [place] [address] ?XRay Report ? Signed ? Patient: TREV MCKEON ?MR#: [id number] ?? : 1980 ?Acct:[id number] ?? Age/Sex: 43 / M ?ADM Date: 04/25/24 ?? Loc: WC ? Attending Dr: Martell Nvaas ? Ordering Physician: Martell Navas ?? Date of Service: 04/25/24 ?? Procedure(s): XR foot RT min 3V ?? Accession Number(s): [id number] ? cc: Martell Navas; NATALIE HERNANDEZ ? [facility] ? [address] ? [place] [address] ? Patient Name: ?? TREV MCKEON ? MRN: [facility]:[id number] ? date: 1980 ?Sex: M ?? Assigned Patient Location: WC ?? Current Patient Location: [place] ?? Accession/Order Number: [id number] ?? Exam Date: 04/25/2024 ??11:58 ?Report Date: 04/26/2024 ??09:03 ? At the request of: ?? MARTELL ??ELOISE ? Procedure: ??XR foot RT min 3V ? PROCEDURE: XR foot RT min 3V ? HISTORY: RIGHT FOOT PAIN ? COMPARISON: XR foot right 11/02/2023 ? FINDINGS: ?? BONES:Prior amputation of the forefoot. Subtle, less well-defined cortex of ?? the ?? plantar surface of the midfoot. ?? SOFT TISSUES:Prominent soft tissue swelling. ?? EFFUSION:None visible. ?? OTHER: Negative. ? XR/XR foot RT min 3V ?? IMPRESSION: ? 1. Patient history states large wound involving the plantar midfoot. Deep to ?? this area there is suggestive of slightly less well defined cortex which may ?? indicate early osteomyelitis. ? Electronically authenticated by: KENY ??RAMIRO ?? Date: 04/26/2024 ??09:03 ? Dictated By: ?Keny Nayak M.D. ? Signed By: ?12/18/24 0906 ? DD/ 0903 ? TD/TT: ? Director Of Social Work: Procedure Note Radiology, Radiologist, MD - 04/26/[address] [address] XRay Report Signed Patient: TREV MCKEON BMR#: [id number] : 1980Acct:[id number] Age/Sex: 43 / MADM Date: 04/25/24 Loc: Attending Dr: Martell Navas Ordering Physician: Martell Navas Date of Service: 04/25/24 Procedure(s): XR foot RT min 3V Accession Number(s): [id number] cc: Martell Navas; NATALIE HERNANDEZ The [address] [address] Patient Name: TREV MCKEON MRN: [id number] date: 1980 Sex: M Assigned Patient Location: Current Patient Location: [place] Accession/Order Number: [id number] Exam Date: 04/25/2024 11:58 Report Date: 04/26/2024 [...] Nayak M.D. Signed By:04/26/24905 DD/ 2 TD/TT: Director Of Social Work: Authorizing ProviderResult TypeResult StatusGeneric External Data Provider CLINISYNC IMAGINGFinal Result documented in this encounter Visit Diagnoses Not on filedocumented in this encounter Care Teams Team MemberRelationshipSpecialtyStart DateEnd Date Natalie Hernandez MD PCP - GeneralFamily Medicine Tres Oleary MD [address] [place] [address] PCP - GeneralFamily Medicine01/11/25 Blossom Cody NP Nurse PractitionerFamily Medicine01/19/24documented as of this encounter
--- OUTSIDE RECORDS SUMMARY | 2025-03-13 10:40 | XMS_ITS | Encounter Summary ---
Author Organization [facility] Address [address] [place] [address] Care Team Providers Care Wool Presser Name Role Phone Natalie Hernandez MD Primary Care Provider [phone] Blossom Cody GUARD LIEUTENANT Unavailable [phone] Tres Oleary MD Primary Care Provider Encounter Details DateTypeDepartmentCare Team (Latest Contact Info)Mlbyuoeapro32/25/2024Clinisync Result Encounter [facility] External Department Unsolicited Provider, Generic External Data Social History Tobacco UseTypesPacks/DayYears UsedDateSmoking Tobacco: NeverSmokeless Tobacco: NeverAlcohol UseStandard Drinks/WeekCommentsYes4 (1 standard drink = 0.6 oz pure alcohol)Humiliation, Afraid, Rape, and Kick questionnaireAnswerDate Recorded Within the last year, have you been afraid of your partner or ex-partner?Patient ahdzedvk35/14/2023Within the last year, have you been humiliated or emotionally abused in other ways by your partner or ex-partner?Patient mxqyznsj60/14/2023 Within the last year, have you been kicked, hit, slapped, or otherwise physically hurt by your partner or ex-partner?Patient zooxbehf10/14/2023Within the last year, have you been raped or forced to have any kind of sexual activity by your partner or ex-partner?Patient dorixtam27/14/2023Social Connection and Isolation PanelAnswerDate RecordedIn a typical week, how many times do you talk on the phone with family, friends, or neighbors?Twice a week03/23/2023How often do you get together with friends or relatives?Twice a week03/23/2023How often do you attend anabaptism or hindu services?More than 4 times per year03/23/2023o you belong to any clubs or organizations such as anabaptism groups, unions, fraternal or athletic groups, or school groups?Patient czzogrqz05/14/2023How often do you attend meetings of the clubs or organizations you belong to?Patient hyijinrp37/14/2023re you , , , , never , or living with a partner?Patient ltoknowx67/14/2023UDIT-CAnswerDate RecordedQ1: How often do you have a [...] like food, housing, medical care, and heating?Patient xlrrseth92/14/2023Hunger Vital SignAnswerDate RecordedWithin the past 12 months, you worried that your food would run out before you got the money to buymore.Patient iucnnfan05/14/2023Within the past 12 months, the food you bought just didn't last and you didn't have money to get more.Patient /14/2023RAPARE - TransportationAnswerDate RecordedIn the past 12 months, has lack of transportation kept you from medical appointments or from getting medications?Patient nnyseiza45/14/2023In the past 12 months, has lack of transportation kept you from meetings, work, or from getting things needed for daily living?Patient ianxxzuc22/14/2023Housing Stability Vital Sign AnswerDate RecordedIn the last 12 months, was there a time when you were not able to pay the mortgage or rent on time?Patient sdzvxbv0503/23/2023Number of Places Lived in the Last YearNot on file03/23/2023In the last 12 months, was there a time when you did not have a steady place to sleep or slept in ashelter (including now)?Patient yijpkxm2003/23/2023Sex and Gender InformationValueDate RecordedSex Assigned at BirthNot on fileLegal WkvLont4807/22/2022 6:33 PM EDT Gender IdentityNot on fileSexual OrientationNot on filedocumented as of this encounter Functional Status * AUDIT-C ScoreAnswerDate of XvzfklyisdMmpgwn997/24/2025 9:27 AM Nohemi Menchaca MA * QuestionAnswerDate of AssessmentAuthorQ1: How often do you have a drink containing alcohol?2-3 times a week01/31/2025 9:27 AM Nohemi Menchaca MAQ2: How many drinks containing alcohol do you have on a typical day when you are drinking?1 or 9:27 AM Nohemi Menchaca MAQ3: How often do you have six or more drinks on one occasion?Never01/31/2025 9:27 AM EDT Nohemi Castrejon MA documented as of this encounter Plan of Treatment DateTypeDepartmentCare Team (Latest Contact Info)Lfidvptonlz35/16/2025 9:30 AM ESTOffice Visit [facility] [address] [place] [phone] Maria Fernanda Olguin NP [address], [place] [phone] documented as of this encounter Procedures Procedure NamePriorityDate/TimeAssociated DiagnosisCommentsXR FOOT RT MIN 3V 11/02/2023 1:10 PM EDT documented in this encounter Results * XR FOOT RT MIN 3V (11/02/2023 1:10 PM EDT)Anatomical RegionLateralityModality OtherSpecimen (Source)Anatomical Location / LateralityCollection Method / VolumeCollection TimeReceived Time11/02/2023 1:10 PM EDT Narrative 11/02/2023 1:12 PM EDT [facility] ?[address] ? [place] [address] ?XRay Report ? Signed ? Patient: MIKE,TREV B ?MR#: [id number] ?? : 1980 ?Acct:[id number] ?? Age/Sex: 43 / M ?ADM Date: 06/25/24 ?? Loc: WC ? Attending Dr: Alex Johnson D.P.M. ? Ordering Physician: Alex Johnson D.P.M. ?? Date of Service: 11/02/23 ?? Procedure(s): XR foot RT min 3V ?? Accession Number(s): [id number] ? cc: Alex Johnson D.P.M.; NATALIE HERNANDEZ ? [facility] ? [address] ? [place] [address] ? Patient Name: ?? TREV MCKEON ? MRN: [facility]:[id number] ? date: 1980 ?Sex: M ?? Assigned Patient Location: WC ?? Current Patient Location: ?? Accession/Order Number: [id number] ?? Exam Date: 11/02/2023 ??11:13 ?Report Date: 11/02/2023 ??13:10 ? At the request of: ?? ALEX ??SARA ? Procedure: ??XR foot RT min 3V ? PROCEDURE: XR foot RT min 3V ? COMPARISON: 09/25/2021 ? HISTORY: RIGHT FOOT PAIN ? FINDINGS: ?? 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 first through fifth metatarsals. Moderate degenerative changes with joint ?? space ?? narrowing and marginal osteophyte formation. Moderate enthesopathic spurring ?? of ?? the calcaneus ?? SOFT TISSUES:Negative. No visible soft tissue swelling. ?? EFFUSION:None visible. ?? OTHER: Vascular calcifications ? XR/XR foot RT min 3V ?? IMPRESSION: ? Stable forefoot amputation ? Electronically authenticated by: FRANCO ??WEST ?? Date: 11/02/2023 ??13:10 ? Dictated By: ?Franco Frances M.D. ? Signed By: ?11/02/23 1312 ? DD/ 1310 ? TD/TT: ? Plush Dresser: Procedure Note Radiology, Radiologist, MD - 11/02/[address] [address] XRay Report Signed Patient: TREV MCKEON BMR#: [id number] : 1980Acct:[id number] Age/Sex: 43 / MADM Date: 11/02/23 Loc: Attending Dr: Alex Johnson D.P.M. Ordering Physician: Alex Johnson D.P.M. Date of Service: 11/02/23 Procedure(s): XR foot RT min 3V Accession Number(s): [id number] cc: Alex Johnson D.P.M.; NATALIE HERNANDEZ [place] [address] Patient Name: TREV MCKEON MRN: [id number] date: 1980 Sex: M Assigned Patient Location: Current Patient Location: Accession/Order Number: [id number] Exam Date: 11/02/2023 11:13 Report Date: 11/02/2023 [...] M.D. Signed By:11/02/23 1312 DD/ 1310 TD/TT: Plush Dresser: Authorizing ProviderResult TypeResult StatusGeneric External Data Provider [facility]NC IMAGINGFinal Result documented in this encounter Visit Diagnoses Not on filedocumented in this encounter Care Teams Team MemberRelationshipSpecialtyStart DateEnd Date Natalie Hernandez MD PCP - GeneralFamily Medicine Tres Oleary MD [address] [place] [address] PCP - GeneralFamily Medicine01/11/25 Blossom Cody NP Nurse PractitionerFamily Medicine01/19/24documented as of this encounter
--- OUTSIDE RECORDS SUMMARY | 2025-03-13 10:40 | XMS_ITS | Encounter Summary ---
Author Organization [facility] Address [address] [place] [address] Care Team Providers Care Mentally Impaired Teacher Name Role Phone Natalie Hernandez MD Primary Care Provider [phone] Blossom Cody CERTIFIED PERFORMANCE TECHNOLOGIST Unavailable Tres Oleary MD Primary Care Provider [phone] Encounter Details DateTypeDepartmentCare Team (Latest Contact Info)Lzzzunxakei16/20/2023Clinisync Result Encounter [facility] External Department Unsolicited Provider, Generic External Data Social History Tobacco UseTypesPacks/DayYears UsedDateSmoking Tobacco: NeverSmokeless Tobacco: NeverAlcohol UseStandard Drinks/WeekCommentsYes4 (1 standard drink = 0.6 oz pure alcohol)Humiliation, Afraid, Rape, and Kick questionnaireAnswerDate Recorded Within the last year, have you been afraid of your partner or ex-partner?Patient yryuzzyc42/14/2023Within the last year, have you been humiliated or emotionally abused in other ways by your partner or ex-partner?Patient qryprbxi42/14/2023 Within the last year, have you been kicked, hit, slapped, or otherwise physically hurt by your partner or ex-partner?Patient tkenptgu42/14/2023Within the last year, have you been raped or forced to have any kind of sexual activity by your partner or ex-partner?Patient qjuwqwzf61/14/2023Social Connection and Isolation PanelAnswerDate RecordedIn a typical week, how many times do you talk on the phone with family, friends, or neighbors?Twice a week03/23/2023How often do you get together with friends or relatives?Twice a week03/23/2023How often do you attend alevism or orthodoxy services?More than 4 times per year03/23/2023o you belong to any clubs or organizations such as alevism groups, unions, fraternal or athletic groups, or school groups?Patient bclevbsd85/14/2023How often do you attend meetings of the clubs or organizations you belong to?Patient sjeklcus34/14/2023re you , , , , never , or living with a partner?Patient yyvbfhak03/14/2023UDIT-CAnswerDate RecordedQ1: How often do you have a [...] like food, housing, medical care, and heating?Patient wcceyuma85/14/2023Hunger Vital SignAnswerDate RecordedWithin the past 12 months, you worried that your food would run out before you got the money to buymore.Patient kuytwmak37/14/2023Within the past 12 months, the food you bought just didn't last and you didn't have money to get more.Patient knxmbmah53/14/2023RAPARE - TransportationAnswerDate RecordedIn the past 12 months, has lack of transportation kept you from medical appointments or from getting medications?Patient nmxfogzm56/14/2023In the past 12 months, has lack of transportation kept you from meetings, work, or from getting things needed for daily living?Patient sslnysxr08/14/2023Housing Stability Vital Sign AnswerDate RecordedIn the last 12 months, was there a time when you were not able to pay the mortgage or rent on time?Patient fagatek9703/23/2023Number of Places Lived in the Last YearNot on file03/23/2023In the last 12 months, was there a time when you did not have a steady place to sleep or slept in multicare healther (including now)?Patient mfkafww0203/23/2023Sex and Gender InformationValueDate RecordedSex Assigned at BirthNot on fileLegal DmtHxzq4107/22/2022 6:33 PM EDT Gender IdentityNot on fileSexual OrientationNot on filedocumented as of this encounter Functional Status * AUDIT-C ScoreAnswerDate of EnyifpcfadAqconk337/24/2025 9:27 AM Nohemi Menchaca MA * QuestionAnswerDate [...] Plan of Treatment DateTypeDepartmentCare Team (Latest Contact Info)Jiwzhlatwna83/16/2025 9:30 AM ESTOffice Visit [facility] Medicine [address] [place] [phone] Maria Fernanda Olguin NP [address], [place] [phone] documented as of this encounter Procedures Procedure NamePriorityDate/TimeAssociated DiagnosisCommentsXR FOOT LT MIN 3V 04/28/2023 2:26 PM EST documented in this encounter Results * XR FOOT LT MIN 3V (04/28/2023 2:26 PM EST)Anatomical RegionLateralityModality OtherSpecimen (Source)Anatomical Location / LateralityCollection Method / VolumeCollection TimeReceived Time04/28/2023 2:26 PM EST Narrative 04/28/2023 2:29 PM EST [facility] ?[address] ? [place] [address] ?XRay Report ? Signed ? Patient: MIKE,TREV B ?MR#: [id number] ?? : 1980 ?Acct:[id number] ?? Age/Sex: 42 / M ?ADM Date: 12/20/23 ?? Loc: WC ? Attending Dr: Natanael Feldman D.P.M. ? Ordering Physician: Natanael Feldman D.P.M. ?? Date of Service: 04/28/23 ?? Procedure(s): XR foot LT min 3V ?? Accession Number(s): [id number] ? cc: Natanael Feldman D.P.M.; OSCARLYNATALIE ? [facility] ? [address] ? [place] [address] ? Patient Name: ?? TREV MCKEON ? MRN: [facility]:[id number] ? date: 1980 ?Sex: M ?? Assigned Patient Location: ?? Current Patient Location: ?? Accession/Order Number: [id number] ?? Exam Date: 04/28/2023 ??10:10 ?Report Date: 04/28/2023 ??14:26 ? At the request of: ?? NATANAEL ??TAIWO ? Procedure: ??XR foot LT min 3V ? PROCEDURE: XR foot LT min 3V ? DATE: 04/28/2023 9:10 AM DECORATIVE ENGRAVER APPRENTICE ? COMPARISONS: 02/19/2023 ? CLINICAL INDICATION: LEFT FOOT BLISTER ? FINDINGS: ? There is no evidence of fractures or other acute osseous abnormalities. ? Surgical fixation hardware is noted of the first metatarsal phalangeal joint, ?? stable. ? There is widening of the first interphalangeal joint. There is some valgus ?? deformity at this joint space. This is stable in appearance. There is some ?? soft ?? tissue swelling about this first toe. There is slight deformity of the ?? proximal ?? and the lateral aspect of this first proximal phalanx but this was also seen ?? on ?? previous exam. It could represent old or subacute fracture. ? There is some soft tissue swelling tip of the fourth toe. ? There is no evidence of erosive osseous lesion or destructive osseous process ?? on these images. ? There is some deformity of the tip of the second toe stable from previous ?? exam. ?? It appears to represent distal interphalangeal degenerative changes. ? There is pes planus deformity. There is spurring of the posterior inferior os ?? calcis and of the posterior os calcis, stable. ? XR/XR foot LT min 3V ?? IMPRESSION: ? Findings as discussed above. ? There is no evidence of erosive osseous lesion or destructive osseous process ?? to suggest osteomyelitis on these images. ? Electronically authenticated by: FERN ??SHEILA ?? Date: 04/28/2023 ??14:26 ? Dictated By: ?Fern Sosa M.D. ? Signed By: ?04/28/23 [facility]9 ? DD/ 1426 ? TD/TT: ? Feed Management Advisor: Procedure Note Radiology, Radiologist, MD - 07/14/2023 [place] [address] XRay Report Signed Patient: TREV MCKEON BMR#: [id number] : 1980Acct:[id number] Age/Sex: 42 / MADM Date: 04/28/23 Loc: Attending Dr: Natanael Feldman D.P.M. Ordering Physician: Natanael Feldman D.P.M. Date of Service: 04/28/23 Procedure(s): XR foot LT min 3V Accession Number(s): [id number] cc: Natanael Feldman D.P.M.; NATALIE HERNANDEZ [place] [id number] Patient Name: TREV MCKEON MRN: [id number] date: 1980 Sex: M Assigned Patient Location: Current Patient Location: Accession/Order Number: [id number] Exam Date: 04/28/2023 10:10 Report Date: 04/28/2023 14:26 At the request of: NATANAEL FELDMAN Procedure: XR foot LT min 3V PROCEDURE: XR foot LT min 3V DATE: 04/28/2023 9:10 AM DECORATIVE ENGRAVER APPRENTICE COMPARISONS: 02/19/2023 CLINICAL INDICATION: LEFT FOOT BLISTER [...] osteomyelitis on these images. Electronically authenticated by: FERN SOSA Date: 04/28/2023 14:26 Dictated By: Fern Sosa M.D. Signed By:04/28/23 1429 DD/ 25 TD/TT: Feed Management Advisor: Authorizing ProviderResult TypeResult StatusGeneric External Data Provider [facility] IMAGINGFinal Result documented in this encounter Visit Diagnoses Not on filedocumented in this encounter Care Teams Team MemberRelationshipSpecialtyStart DateEnd Natalie Hernandez MD PCP - GeneralFamily Medicine Tres Oleary MD [address] [place] [address] PCP - GeneralFamily Medicine01/11/25 Blossom Cody NP Nurse PractitionerFamily Medicine01/19/24documented as of this encounter
--- OUTSIDE RECORDS SUMMARY | 2025-03-13 10:40 | XMS_ITS | Clinical Summary ---
Author Organization [facility] tem Address [id number] [address] [place] [address] Care Team Providers Care Medical Esthetician Name Role Phone Natalie Ryan MD Primary Care Provider [phone] Allergies No known active allergies Medications MedicationSigDispense QuantityRefillsLast FilledStart DateEnd DateStatus insulin lispro (HumaLOG) 100 unit/mL injection For blood glucose 151-200 mg/dL, give 2 units. For blood glucose 201-250 mg/dL, give 4 units. For blood glucose 251-300 mg/dL, give 6 units. For blood glucose 301-350 mg/dL, give 8 units. For blood glucose 351 1 Box 03/30/2018Active insulin syringe-needle U-100 0.3 mL 28 syringe Insulin needle for glucometer. 100 Syringe 03/30/2018Active blood-glucose meter (glucose monitoring kit) kit Use as instructed 1 each 03/30/2018Active lancets (ACCU-CHEK MULTICLIX LANCET) [facility] blood glucose check 100 each 03/30/2018Active atorvastatin (LIPITOR) 40 mg tablet Take 40 mg by mouth daily.Active ONETOUCH VERIO strip U UTD BEFORE MEALS AND HS0106/01/2017Active lisinopril (PRINIVIL,ZESTRIL) 10 mg tablet Take 10 mg by mouth daily.Active BD ULTRA-FINE ABIGAIL PEN NEEDLE 32 gauge x 5/32 needle USE TO ADMINISTER INSULIN QID NZOIWAAX3732/29/2018Active ONETOUCH VERIO SYSTEM [facility] See Admin Instructions.Active insulin syringe-needle U-100 0.3 mL 29 gauge syringe See Admin Instructions.Active metFORMIN (GLUCOPHAGE) 500 mg tablet Take 1 tablet by mouth 2 (two) times a day.Active semaglutide (OZEMPIC) 0.25 mg or 0.5 mg(2 mg/1.5 mL) pen injector Inject 0.25 mg under the skin every 7 days.Active insulin glargine (LANTUS) 100 unit/mL injection Inject 44 Units under the skin 2 (two) times a day.Active Active Problems ProblemNoted DateDiagnosed DatePlantar ulcer of right foot04/13/2018Hx of diabetic aclueavcej13/05/2018Neuropathic foot ulcer04/13/2018 Resolved Problems ProblemNoted DateDiagnosed DateResolved AeqkKklssrlw71 Immunizations No known immunizations Family History Medical HistoryRelationNameCommentsCancerFatherbladderDiabetesMotherRelationName StatusCommentsFatherAliveMotherAlive Social History Tobacco UseTypesPacks/DayYears UsedDateSmoking Tobacco: FormerCigarettes0.338979 - 2003Smokeless Tobacco: Never Tobacco Cessation:Counseling Given: No Alcohol UseStandard Drinks/WeekCommentsYes2 (1 standard drink = 0.6 oz pure alcohol)ChildcareAnswerDate UkegupylZeqkqdwbwIjzdohk17/12/2019EmploymentAnswer Date NydtqxjvQukwtpwneoVbqnxvr26/12/2019Purpose - LifeAnswerDate RecordedPurpose and direction in rilxVdxobvj58/11/2021ex and Gender InformationValueDate RecordedSex Assigned at BirthNot on fileLegal ThcXamh6612/13/2014 12:09 PM EDT Gender IdentityNot on fileSexual OrientationNot on file Last Filed Vital Signs Vital SignReadingTime TakenCommentsBlood Xflyymwv824/7209 9:21 AM EDT Lkwwa6414 9:21 AM YJYVjejmgyobjg66.6 ??C (99.7 ??F)01/10/2021 6:30 AM EDTRespiratory Jact0004 6:30 AM EDTOxygen Kxavspodel652%01/10/2021 9:25 AM EDTInhaled Oxygen Concentration--Ahrdhl431.8 kg (350 lb)01/10/2021 6:30 AM UNDGqtmmo304.9 cm (6' 0.01 )01/10/2021 6:30 AM EDTBody Mass Index47.46001/10/2021 6:30 AM EDT Plan of Treatment Health MaintenanceDue DateLast DoneCommentsDepression Mopelykho43/02/1992Tobacco Xncnsfrxx19/02/1992Adult BMI Touzxbuza16/02/1998DTaP,Tdap and Td Vaccines (1 - Tdap)10/09/1998COVID-19 Vaccine (3 - season)/03/2021, 11/27/2020Influenza Hqjlikx40/10/2019, 02/22/2019, 02/07/2018 Goals GoalPatient Goal TypeAssociated ProblemsRecent ProgressPatient-Stated?Author Return home with home care services Evelyne Conde LSW Note: Evaluation of progress towards goal: Return home with home health care services. Medical Devices Not on file Insurance Advance Directives * Full Code (Latest Code Status on File) Date ActivatedDate SyevmavlicuTdbqanka27/18/2018 5:45 AM03/30/2018 7:23 PM Care Teams Team MemberRelationshipSpecialtyStart DateEnd Natalie Ryan MD [address], [place] [phone] PCP - GeneralFamily Oxieohsz30/17/18
--- OUTSIDE RECORDS SUMMARY | 2025-03-13 10:40 | XMS_ITS | Clinical Summary ---
Author Organization [facility] Address [address] [place] [address] Care Team Providers Care Asset Specialist Name Role Phone Blossom Cody HR COORDINATOR Unavailable [phone] Tres Oleary MD Primary Care Provider [phone] Allergies No known active allergies Medications MedicationSigDispense QuantityRefillsLast FilledStart DateEnd DateStatus aspirin 81 MG EC tablet Take 1 tablet by mouth in the morning.Active insulin glargine (Lantus) 100 UNIT/ML injection Inject 44 Units under the skin in the morning and 44 Units in the evening.Active insulin lispro (HumaLOG) 100 UNIT/ML injection Inject 1 Units under the skin in the morning and 1 Units at noon and 1 Units in the evening. Injectwith meals. Per ISS scale from endo.Active metFORMIN (Glucophage) 500 MG tablet Take 2 tablets by mouth in the morning and 2 tablets in the evening. Take with meals.Active Victoza 18 MG/3ML injection Inject 1.8 mg under the skin Daily10/27/2023ctive traZODone (Desyrel) 100 MG tablet Indications:Depressed mood,Insomnia, unspecified typeTake 1 tablet (100 mg) by mouth as needed at bedtime for sleep 30 tablet 5Active atorvastatin (Lipitor) 40 MG tablet Indications:Pure hyperglyceridemiaTake 1 tablet (40 mg) by mouth Daily 90 tablet 3095Active lisinopril 30 MG tablet Indications:Essential hypertensionTake 1 tablet (30 mg) by mouth Daily 90 tablet /6Active lisinopril 30 MG tablet Indications:Essential hypertensionTake 1 tablet (30 mg) by mouth Daily 90 tablet Discontinued(Reorder) Active Problems ProblemNoted DateDiagnosed DateAmputation of toe, traumatic, left, sequela ([facility])11/03/2023 Overview (11/03/2023): Lt forefoot Essential jgoajqszdbhx86/07/2024cquired hallux tkidlk3910/02/2022rthritis of left foot10/02/2022iabetic autonomic neuropathy associated with type 2 diabetes cyuwwjda35/26/2023iabetic neuropathic nyphfvaqdyi21/26/2023iabetic polyneuropathy associated with type 2 diabetes psbfzszi30/26/2023yslipidemia 10/02/2022Lipoprotein deficiency dyxapbmc13/26/2023Morbid roahvvu2910/02/2022 Poorly controlled diabetes /26/1432Dhhbmxdakzlnfnufaami51/26/2023 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10/02/2022Type 2 diabetes mellitus with neurological socktypmdhuia17/26/2023Hyperglycemia due to type 2 diabetes kiygiepk28/26/2023Vitamin B 12 zkhiqhtxrw86/26/2023 Resolved Problems ProblemNoted DateDiagnosed DateResolved DateUlcerated, foot, left, limited to breakdown of skinNon-pressure chronic ulcer of other part of unspecified foot with unspecified chtptrdv38Osteomyelitis of great toe of right foot/Osteomyelitis of right foot10/02/2022 06/17/2023ressure ulcer of other site, stage ressure ulcer of other site, stage Ulcer of foot due to type 2 diabetes lyvypxyq82History of COVID-19005/13//12/2023Hx of diabetic trfzpwvytu38 Encounters DateTypeDepartmentCare AqxjGaxuqoaiwuv15/30/2025Refill [facility] [address] [place] [address] Tres Oleary MD Essential chnwhlhfcfti74/24/2025 9:30 AM EDTOffice Visit [facility] [address] [place] [address] Maria Fernanda Olguin NP Wellness examination (Primary [...] B 12 deficiency; Poorly controlled diabetes mellitus (HCC)01/31/2025amboo flowsheet [facility] [address] [place] [address] Maria Fernanda Olguin NP 01/31/2025Travelfrom Last 3 Months Immunizations ImmunizationAdministration DatesNext DueInfluenza, injectable, MDCK, preservative free, fipsahplampg16/06/2020Influenza, injectable, quadrivalent, preservative free03/24/2023,03/28/2021,02/22/2019,02/07/2018Influenza, seasonal, injectable, preservative free03/14/2024TD (adult), 2 Lf tetanus toxoid, preservative free, zpaojfde85/26/2024Td (adult), 5 Lf tetanus toxoid, preservative free, gwkoaamq47/19/2022 Family History Medical HistoryRelationNameCommentsCancerFatherHypertensionFatherDiabetesMother HypertensionMotherMelanomaMotherhistory ofRelationNameStatusCommentsFatherAlive MotherAlive Social History Tobacco UseTypesPacks/DayYears UsedDateSmoking Tobacco: NeverSmokeless Tobacco: Never Tobacco Cessation:Counseling Given: Not Answered Alcohol UseStandard Drinks/WeekCommentsYes4 (1 standard drink = 0.6 oz pure alcohol)caffeine: 2-3 cups dailyHumiliation, Afraid, Rape, and Kick questionnaireAnswerDate RecordedWithin the last year, have you been afraid of your partner or ex-partner?Patient rtdidrxu57/14/2023Within the last year, have you been humiliated or emotionally abused in other ways by your partner or ex-partner?Patient ahmpuzvb79/14/2023Within the last year, have you been kicked, hit, slapped, or otherwise physically hurt by your partner or ex-partner?Patient rqzkaaut01/14/2023Within the last year, have you been raped or forced to have any kind of sexual activity by your partner or ex-partner?Patient declined 03/23/2023Social Connection and Isolation PanelAnswerDate RecordedIn a typical week, how many times do you talk on the phone with family, friends, or neighbors?Twice a week03/23/2023How often do you get together with friends or relatives?Twice a week03/23/2023How often do you attend bahai or sabianist services?More than 4 times per year03/23/2023o you belong to any clubs or organizations such as bahai groups, unions, fraternal or athletic groups, or school groups?Patient huyufyqt56/14/2023How often do you attend meetings of the clubs or organizations you belong to?Patient jxoeudwu59/14/2023re you , , , , never , or living with a partner?Patient hfmdsoxp76/14/2023UDIT-CAnswerDate RecordedQ1: How often do you have a [...] like food, housing, medical care, and heating?Patient qocflavg68/14/2023Hunger Vital SignAnswerDate RecordedWithin the past 12 months, you worried that your food would run out before you got the money to buymore. Patient gfmdeurd03/14/2023Within the past 12 months, the food you bought just didn't last and you didn't have money to get more.Patient hvjzwuvn03/14/2023 PRAPARE - TransportationAnswerDate RecordedIn the past 12 months, has lack of transportation kept you from medical appointments or from getting medications? Patient pkyqcbvb22/14/2023In the past 12 months, has lack of transportation kept you from meetings, work, or from getting things needed for daily living?Patient xjwvyenk24/14/2023Housing Stability Vital SignAnswerDate RecordedIn the last 12 months, was there a time when you were not able to pay the mortgage or rent on time?Patient nxfnnya6503/23/2023Number of Places Lived in the Last YearNot on file 03/23/2023In the last 12 months, was there a time when you did not have a steady place to sleep or slept in [facility] (including now)?Patient rduvngl5803/23/2023Sex and Gender InformationValueDate RecordedSex Assigned at BirthNot on fileLegal RnyRysr4507/22/2022 6:33 PM EDTGender IdentityNot on fileSexual OrientationNot on file Last Filed Vital Signs Vital SignReadingTime TakenCommentsBlood Skcprozs629/7209 9:20 AM EDT Qhxpw220701/31/2025 9:20 AM EDTTemperature--Respiratory Rate--Oxygen Eetecxefnx12% 01/31/2025 9:20 AM EDTInhaled Oxygen Concentration--Xnlrqr241 kg (381 lb 9.6 oz) 01/31/2025 9:20 AM LANBmwdwr679.6 cm (5' 11.5 )01/31/2025 9:20 AM EDTBody Mass Index52.48001/31/2025 9:20 AM EDT Plan of Treatment DateTypeDepartmentCare Team (Latest Contact Info)Vmiklqysbqj23/16/2025 9:30 AM ESTOffice Visit [facility] [address] [place] [address] Maria Fernanda Olguin, HR COORDINATOR [address] [facility] [place] [address] Health MaintenanceDue DateLast DoneCommentsCT Bxenczycxvqj14/02/1980Colonoscopy 1979FIT-DNA1979FIT1979FOBT1979 7688Bocjlltdreubo28/02/1980MMR Vaccines (1 of 1 - Standard series)10/09/1980Hepatitis B Vaccines (1 of 3 - 19+ 3-dose series)10/09/1998Pneumococcal Vaccine: Pediatrics (0 to 5 Years) and At- Risk Patients (6 to 64 Years) (1 of 2 - PCV)10/09/1998HPV Vaccines (1 - 3-dose SCDM series)10/09/2006DTaP/Tdap/Td Vaccines (3 - Tdap)/, 2Diabetes: Urine Protein Irkcehqtb27/, 01/08/2022, 12/27/2020, Additional history existsDiabetes: Hemoglobin A1C11/20/2024 08/21/2024, 01/26/2024, 10/19/2023, Additional history existsCOVID-19 Vaccine ( - 2024- season)508/03/2021, 11/27/2020Influenza Vaccine (#1) 611/09/2023, 03/24/2023, 03/28/2021, Additional history existsPostponed from 01/08/2025 (Patient Refused)Colorectal Cancer Tuuezqupd83/26/2026Postponed from 1979 (Patient Refused)Diabetes: Retinopathy Hdjbecaex48/08/2027 08/15/2024, 07/27/2023, 07/25/2021, Additional history existsHIB VaccinesAged OutNo longer eligible based on patient's age to complete this topicHepatitis A VaccinesAged OutNo longer eligible based on patient's age to complete this topic IPV VaccinesAged OutNo longer eligible based on patient's age to complete this topicMeningococcal B VaccineAged OutNo longer eligible based on patient's age to complete this topicMeningococcal VaccineAged OutNo longer eligible based on patient's age to complete this topicRotavirus VaccinesAged OutNo longer eligible based on patient's age to complete this topic Goals GoalPatient Goal TypeAssociated ProblemsRecent ProgressPatient-Stated?Author Help patient manage antidepressant medication Care PlanPatient on antidepressant monitoring Maria Fernanda Velasco NP Baseline PHQ-9 Care PlanBaseline PHQ-9Maria Fernanda Moise NP Procedures Procedure NamePriorityDate/TimeAssociated DiagnosisCommentsHEMOGLOBIN E2RSxkhsey 08/21/2024 10:48 AM EDT DIABETIC RETINOPATHY SCREENING - OU - BOTH LWFZTobjizl50/08/2025 3:07 PM EDT MICROALBUMIN / CREATININE URINE RXFWPZxdimsg33/15/2023 10:30 AM EST Diabetic autonomic neuropathy associated with type 2 diabetes mellitus (HCC) Diabetic polyneuropathy associated with type 2 diabetes mellitus (HCC) from Last 3 Months or Most Recently Relevant to Health Maintenance Results * Hemoglobin A1c (08/21/2024 10:48 AM EDT)ComponentValueRef RangeTest Method Analysis TimePerformed AtPathologist SignatureHEMOGLOBIN A1C7.9Specimen (Source)Anatomical Location / LateralityCollection Method / VolumeCollection TimeReceived TimeBloodVenous blood specimen / Unknown Narrative Authorizing ProviderResult TypeResult StatusTondra Shannon NPLAB BLOOD ORDERABLES Edited Result - Final * (ABNORMAL) Diabetic Retinopathy Screening - OU - Both Eyes (08/15/2024 3:07 PM EDT)Anatomical RegionLateralityModalityHeadOther Narrative Authorizing ProviderResult TypeResult StatusGreg Derodes [facility] PHOTOGRAPHY Final Result * Microalbumin / creatinine, urine ratio (03/24/2023 10:30 AM EST)ComponentValue Ref RangeTest MethodAnalysis TimePerformed AtPathologist SignatureCREATININE, RANDOM FNNIG2256 - 320 mg/dLQUESTALBUMIN, URINE1.1See Note: mg/dLQUESTComment: Reference Range: Reference Range Not established ALBUMIN/CREATININE RATIO, RANDOM URINE20<30 mcg/mg creatQUESTComment: The ADA defines abnormalities in albumin excretion as follows: Albuminuria Category ?Result (mcg/mg creatinine) Normal to Mildly increased <30 Moderately increased ? 30-299 Severely increased > OR = 300 The ADA recommends that at least two of three specimens collected within a 3-6 month period be abnormal before considering a patient to be within a diagnostic category. Specimen (Source)Anatomical Location / LateralityCollection Method / Volume Collection TimeReceived TimeUrineUrine specimen obtained by clean catch procedure / Dxhavyv0103/24/2023 10:30 AM EST03/24/2023 5:00 PM EST Narrative [facility] - 03/25/2023 2:51 PM EST SPLIT 03/24/2023 FROM [id number] Resulting Agency Comment Performing Organization Information ?Site ID: [id number] ?Name: [facility] ?Address: [address] [place] [address], [address] [place] [id number] ?Director: Mauro Handley MD Authorizing ProviderResult TypeResult StatusSajuan Olguin NPLAB URINE ORDERABLESFinal ResultPerforming OrganizationAddressCity/State/ZIP CodePhone Number [facility] from Last 3 Months or Most Recently Relevant to Health Maintenance Additional Health Concerns Active ProblemsNoted DateDiagnosed DatePatient on antidepressant monitoring plan 5Baseline PHQ-9001/31/2025 Insurance Care Teams Team MemberRelationshipSpecialtyStart DateEnd Tres Oleary MD [address] [place] [address] PCP - GeneralFamily Medicine01/11/25 Blossom Cody NP Nurse PractitionerFamily Medicine01/19/24
--- OUTSIDE RECORDS SUMMARY | 2025-03-13 10:51 | XMS_ITS | CCD ---
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 Name Role Phone Link Ortega Unavailable NATANAEL [...] WONDERLY, DR NATALIE Lozada Primary Care Unavailable QASIM SOSA Consulting Unavailable WONDERLY, DR NATALIE Lozada Primary Care Unavailable MEENA STINSON Admitting Unavailable MEENA STINSON Attending Unavailable MEENA STINSON Attending Unavailable WONDERLY, DR NATALIE Lozada Primary Care Unavailable MEENA STINSON Admitting Unavailable NATANAEL FELDMAN Attending Unavailable NATANAEL [...] NP Unavailable Natalie Hernandez Primary Care Unavailable Taiwo, Natanael Marks Admitting Unavailable Taiwo, Natanael Marks Attending Unavailable [facility] Care Unavailable Damon Claros Admitting Unavailable Damon Claros Attending Unavailable Natalie Hernandez MD [facility] Care Provider Natanael Feldman DPM Attending Provider [phone] Natalie Hernandez MD Primary Care Provider Blossom Cody NP Unavailable [phone] Link Ortega APRN Attending Provider [phone] Sharif BURGER-CMaria Fernanda Primary Care Provider Tres Oleary MD Primary Care Provider MARIA FERNANDA GRANADOS Attending Unavailable BLOSSOM CODY Attending Unavailable MARIA FERNANDA GRANADOS Attending Unavailable BLOSSOM CODY Attending Unavailable Natalie Hernandez MD Primary Care Provider Maria Fernanda Guzman Primary Care Provider iLnk Ortega APRN Attending Provider Medications Current Medications MedicationDrug Class(es)DatesSig (Normalized)Sig (Original)0.25 MG, 0.5 MG Dose 3 ML semaglutide 0.68 MG/ML Pen Injector [Ozempic] (1 source)Start: 73-58-9387nanzar 0.5 mg by subcutaneous injection every week Ozempic (0.25 or 0.5 MG/DOSE) 2 MG/3ML 0.5mg Subcutaneous once weekly for 84 days Dec, Activeaspirin 81 mg chewable tablet (20 sources)Platelet Aggregation Inhibitor, Nonsteroidal Anti-inflammatory Drug Start: 76-63-4241kcja 1 tablet by mouth once dailyAspirin 81 mg tablet,chewable Active 81 MG PO Daily October 18, 2023 11:00pm Complies with drug therapytake 1 tablet by mouth in the morningaspirin 81 MG EC tablet Take 1 tablet by mouth in the morning. Activetake 1 tablet by mouth every twenty-four hoursAspirin 81 MG 1 tablet Orally Once a day Activeatorvastatin 40 mg oral tablet (20 sources)HMG-CoA Reductase InhibitorStart: 02-08-2023 End: 52-72-6694twbe 1 tablet by mouth once dailyAtorvastatin 40 mg tablet Active 40 MG PO Daily October 18, 2023 11:00pm Complies with drug therapydapagliflozin 10 mg oral tablet (20 sources)Sodium-Glucose Cotransporter 2 InhibitorStart: 10-19-2023 End: 02-38-4074wcen 1 tablet by mouth once daily in the morningDapagliflozin Propanediol (Farxiga) 10 mg tablet Active 10 MG PO Every morning 90 0 August 21, 2024 8:32am Type 2 diabetes mellitus with hyperglycemia Type 2 diabetes mellitus with hyperglycemia 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 0 Activeinsulin glargine 100 unt/ml injectable solution (20 sources)Insulin Analoginject 44 [IU] by subcutaneous injection in the morninginsulin glargine (Lantus) 100 UNIT/ML injection Inject 44 Units under the skin in the morning and 44 Units in the evening. ActiveInsulin Glargine-Yfgn (11 sources)Start: 68-34-4445jpwybw 44 [IU] by subcutaneous injection twice dailyInsulin Glargine-Yfgn Active 44 UNIT SUBCUT Twice daily 100 October 19, 2023 12:27pmStart: 10-19-2023 End: 90-15-0183ptzqcb 44 [IU] by subcutaneous injection twice dailyInsulin Glargine-Yfgn Discontinued 44 UNIT SUBCUT Twice daily October 19, 2023 12:04pm October 19, 2023 12:27pmStart: 93-37-1396tbnguq 44 [IU] by subcutaneous injection twice dailyInsulin Glargine-Yfgn Active 44 UNIT SUBCUT Twice daily October 19, 2023 12:04pmStart: 10-19-2023 End: 25-04-4690liqyoj 40 [IU] by subcutaneous injection twice dailyInsulin Glargine-Yfgn Discontinued 40 UNIT SUBCUT Twice daily October 19, 2023 11:40am October 19, 2023 12:05pmStart: 07-26-2023 End: 26-51-9788coxjhf 46 [IU] by subcutaneous injection twice dailyInsulin Glargine-Yfgn Discontinued 46 UNIT SUBCUT Twice daily 90 90 July 26, 2023 3:32pm October 19, 2023 11:40amStart: 07-26-2023 End: 42-51-1634zzcdyr 46 [IU] by subcutaneous injection twice dailyInsulin Glargine-Yfgn Discontinued 46 UNIT SUBCUT Twice daily 90 90 July 26, 2023 9:10am July 26, 2023 3:33pmStart: 07-26-2023 End: 61-45-4235iukzur 46 [IU] by subcutaneous injection twice dailyInsulin Glargine-Yfgn Discontinued UNIT SUBCUT July 26, 2023 12:00am July 26, 2023 9:15am FreeTextSig: INJECT 46 UNITS SQ bid; Note: Source Status: Increase(titrate up to max 50 units/day); Provider: Shannon Olmsteadulin Glargine-Yfgn (10 sources)Start: 24-06-1139Kqbahtk Glargine-Yfgn (Semglee(Insulin Glarg- Yfgn)Pen) 100 unit/mL (3 mL) insulin pen Active 48 UNIT SUBCUT Twice daily 90 March 12, 2025 10:26am Type 2 diabetes mellitus with hyperglycemia Type 2 diabetes mellitus with hyperglycemia [facility] (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 Complies with drug therapyStart: 01-17-2025 End: 14-47-3560Oikwpws Glargine-Yfgn (Semglee(Insulin Glarg-Yfgn)Pen) 100 unit/mL (3 mL) insulin pen Discontinued 46 UNIT SUBCUT Twice daily 90 January 17, 2025 12:25pm March 12, 2025 10:27am Type 2 diabetes mellitus with hyperglycemia Type 2 diabetes mellitus with hyperglycemia [facility] (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: 11-27-2024 End: 29-91-6335Ocbsrfa Glargine-Yfgn (Semglee(Insulin Glarg-Yfgn)Pen) 100 unit/mL (3 mL) insulin pen Discontinued 46 UNIT SUBCUT Twice daily 90 November 27, 2024 9:41am January 17, 2025 12:25pm Type 2 diabetes mellitus with hyperglycemia Type 2 diabetes mellitus with hyperglycemia [facility] (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: 26-56-9271Apirgnf Glargine-Yfgn (Semglee(Insulin Glarg- Yfgn)Pen) 100 unit/mL (3 mL) insulin pen Active 46 UNIT SUBCUT Twice daily 90 November 27, 2024 10:41am Complies with drug therapyStart: 08-21-2024 End: 87-92-1935Vrfwemv Glargine-Yfgn (Semglee(Insulin Glarg-Yfgn)Pen) 100 unit/mL (3 mL) insulin pen Discontinued 45 UNIT SUBCUT Twice daily 90 August 21, 2024 8:37am November 27, 2024 9:42am Type 2 diabetes mellitus with hyperglycemia Type 2 diabetes mellitus with hyperglycemia [facility] (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: 08-21-2024 End: 35-01-5488Mwbvttf Glargine-Yfgn (Semglee(Insulin Glarg-Yfgn)Pen) 100 unit/mL (3 mL) insulin pen Discontinued 45 UNIT SUBCUT Twice daily 90 August 21, 2024 9:37am November 27, 2024 10:42amStart: 08-21-2024 End: 28-27-0398Aqawhuk Glargine-Yfgn (Semglee(Insulin Glarg-Yfgn)Pen) 100 unit/mL (3 mL) insulin pen Discontinued 45 UNIT SUBCUT Twice daily 90 0 August 21, 2024 8:31am August 21, 2024 8:38am Type 2 diabetes mellitus with hyperglycemia Type 2 diabetes mellitus with hyperglycemia 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 inspector (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: 08-21-2024 End: 68-72-0204Kvuqnzu Glargine-Yfgn (Semglee(Insulin Glarg-Yfgn)Pen) 100 unit/mL (3 mL) insulin pen Discontinued 45 UNIT SUBCUT Twice daily 90 August 21, 2024 9:31am August 21, 2024 9:38amStart: 07-24-2024 End: 13-61-6319Kexxlhc Glargine-Yfgn (Semglee(Insulin Glarg-Yfgn)Pen) 100 unit/mL (3 mL) insulin pen Discontinued 44 UNIT SUBCUT Twice daily 90 0 July 23, 2024 11:00pm August 21, 2024 8:31am Type 2 diabetes mellitus with hyperglycemia Type 2 diabetes mellitus with hyperglycemia 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 inspector (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: 07-24-2024 End: 78-70-9674Qujybsj Glargine-Yfgn (Semglee(Insulin Glarg-Yfgn)Pen) 100 unit/mL (3 mL) insulin pen Discontinued 44 UNIT SUBCUT Twice daily 90 July 24, 2024 12:00am August 21, 2024 9:31amInsulin Glargine-Yfgn (Semglee(Insulin Glarg-Yfgn)Pen) 100 unit/mL (3 mL) insulin pen (2 sources)Start: 98-70-5159Entujqk Glargine-Yfgn (Semglee(Insulin Glarg- Yfgn)Pen) 100 unit/mL (3 mL) insulin pen Active 45 UNIT SUBCUT Twice daily 90 August 21, 2024 9:31amStart: 07-24-2024 End: 89-58-8667Hsorhyd Glargine-Yfgn (Semglee(Insulin Glarg-Yfgn)Pen) 100 unit/mL (3 mL) insulin pen Discontinued 44 UNIT SUBCUT Twice daily July 24, 2024 12:00am August 21, 2024 9:31aminsulin glargine-yfgn 100 unit/ml solution (2 sources)Insulin Glargine-yfgn 100 UNIT/ML INJECT 46 UNITS SQ bid (titrate up to max 50 units/day) Activeinsulin glargine-yfgn 100 UNT/ML Injectable Solution (2 sources)inject 44 [IU] by subcutaneous injection twice daily, then inject 100 [IU] by subcutaneous injection once dailyInsulin Glargine-yfgn 100 UNIT/ML INJECT 44 UNITS UNDER THE SKIN TWICE DAILY DIRECTED MAY TITRATE UP TO 100 UNITS PER DAY for 90 Activeinsulin lispro (HumaLOG) 100 UNIT/ML injection (20 sources)insulin lispro (HumaLOG) 100 UNIT/ML injection Inject 1 Units under the skin in the morning and 1 Units at noon and 1 Units in the evening. Inject with meals. Per ISS scale from endo. Activeinsulin lispro (HumaLOG) 100 UNIT/ML injection Inject 1 Units under the skin in the morning and 1 Units at noon and 1 Units in the evening. Inject with meals. Per ISS scale from endo. 0 Active insulin lispro (HumaLOG) 100 UNIT/ML injection Inject 1 Units under the skin in the morning and 1 Units at noon and 1 Units in the evening. Inject with meals. 0 ActiveInsulin Lispro 100 unit/mL solution (10 sources)Start: 26-03-6330Gjcskxa Lispro 100 unit/mL solution Active 0 SUBCUT .COMPLEX February 28, 2024 10:07am subcutaneously; 1:4 carb ratio ac tid. 1:15 corrective scale ac tid (hs if >200 half dose) as directed; (expect up to 66 units/day)Start: 84-20-0115Uroacms Lispro 100 unit/mL solution Active 0 SUBCUT .COMPLEX February 28, 2024 9:07am subcutaneously; 1:4 carb ratio ac tid. 1:15 corrective scale ac tid (hs if >200 half dose) as directed; (expect up to 66 units/day)Start: 01-26-2024 End: 27-79-5936Mmgnuke Lispro 100 unit/mL solution Discontinued 0 SUBCUT .COMPLEX January 26, 2024 10:37am February 28, 2024 10:12am subcutaneously; 1:4 carb ratio ac tid. 1:15 corrective scale ac tid (hs if >200 half dose) as directed; (expect up to 60 units/day)Start: 01-26-2024 End: 00-72-3611Xgbsmvj Lispro 100 unit/mL solution Discontinued 0 SUBCUT .COMPLEX January 26, 2024 9:37am February 28, 2024 9:12am subcutaneously; 1:4 carb ratio ac tid. 1:15 corrective scale ac tid (hs if & gt;200 half dose) as directed; (expect up to 60 units/day)Start: 12-15-2023 End: 90-85-3531Imltnnj Lispro 100 unit/mL solution Discontinued 0 SUBCUT .COMPLEX December 15, 2023 2:47pm January 26, 2024 10:37am subcutaneously; 1:4 carb ratio ac tid. 1:15 corrective scale ac tid (hs if >200 half dose) as directed; (expect up to 60 units/day)Start: 12-15-2023 End: 67-13-0055Fiinusj Lispro 100 unit/mL solution Discontinued 0 SUBCUT .COMPLEX December 15, 2023 1:47pm January 26, 2024 9:37am subcutaneously; 1:4 carb ratio ac tid. 1:15 corrective scale ac tid (hs if >200 half dose) as directed; (expect up to 60 units/day)Start: 10-19-2023 End: 39-94-2187Irkfjaz Lispro 100 unit/mL solution Discontinued 0 SUBCUT .COMPLEX October 19, 2023 12:27pm December 15, 2023 2:48pm subcutaneously; 1:4 carb ratio ac tid. 1:15 corrective scale ac tid (hs if >200 half dose) as directed; (expect up to 60 units/day)Start: 10-19-2023 End: 59-77-4269Svpdjlb Lispro 100 unit/mL solution Discontinued 0 SUBCUT .COMPLEX October 19, 2023 11:27am December 15, 2023 1:48pm subcutaneously; 1:4 carb ratio ac tid. 1:15 corrective scale ac tid (hs if >200 half dose) as directed; (expect up to 60 units/day)Start: 10-19-2023 End: 75-76-8507Lgicuxs Lispro 100 unit/mL solution Discontinued 0 SUBCUT .COMPLEX October 19, 2023 12:00am October 19, 2023 12:28pm subcutaneously; 1:4 carb ratio ac tid. 1:15 corrective scale ac tid (hs if >200 half dose) as directed; (expect up to 60 units/day)Start: 10-19-2023 End: 52-40-8725Mexbhte Lispro 100 unit/mL solution Discontinued 0 SUBCUT .COMPLEX October 18, 2023 11:00pm October 19, 2023 11:28am subcutaneously; 1:4 carb ratio ac tid. 1:15 corrective scale ac tid (hs if >200 half dose) as directed; (expect up to 60 units/day)lisinopril 30 mg oral tablet (20 sources)Angiotensin Converting Enzyme InhibitorStart: 06-16-2023 End: 52-89-2176xydg 1 tablet by mouth once dailyLisinopril 30 mg tablet Active 30 MG PO Daily October 18, 2023 11:00pm Complies with drug therapy End: 80-78-2675xsoj 1 tablet by mouth in the morninglisinopril 20 MG tablet Take 1 tablet by mouth in the morning. 0 06/16/2023 Discontinued (Dose adjustment) metFORMIN hydrochloride 500 mg oral tablet (20 sources)BiguanideStart: 07-22-2023 End: 14-23-8593xqoj 2 tablets by mouth twice dailyMetformin 500 mg tablet Active 1000 MG PO Twice daily 360 0 November 27, 2024 9:42am Type 2 diabetes mellitus with hyperglycemia Type 2 diabetes mellitus with hyperglycemia FreeTextSi tablets Orally Twice a day; Note: Source Status: Taking; Refills: 3; Qty: 360 Tablet; Provider: Shannon Price Complies with drug therapyStart: 07-22-2023 End: 34-10-9234qjtm 2 tablets by mouth twice dailyMetformin Active 1000 MG PO Twice daily 360 July 22, 2023 2:45pm FreeTextSi tablets Orally Twice a day; Note: Source Status: Taking; Refills: 3; Qty: 360 Tablet; Provider: Shannon Berry (8 sources)Start: 15-66-1198TgeZxkmk Verio - Use with One touch verio meter In Vitro 3 times per day for 90 days E11.65 ActiveOneTouch Verio - USE DIRECTED THREE TIMES DAILY for 90 Active0.25 mg, 0.5 mg dose 1.5 ml semaglutide 1.34 mg/ml pen injector (4 sources)Start: 43-01-4369Jlsddvv (0.25 or 0.5 MG/DOSE) 2 MG/1.5ML as directed Subcutaneous once weekly for 84 days Jun, ActiveSemglee 100 UNIT/ML (6 sources)Semglee 100 UNIT/ML 44 units (may titrate up to 100 units per day) Subcutaneous BID for 90 days ActiveSemglee 100 UNIT/ML 44 units (may titrate up to 100 units per day) Subcutaneous BID for 90 days Expect up to 100 units per day ActiveSemglee 100 UNIT/ML 44 units (may titrate up to 100 units per day) Subcutaneous BID for 90 day(s) ActivetraZODone hydrochloride 100 mg oral tablet (18 sources)Serotonin Reuptake InhibitorStart: 06-14-2024 End: 67-29-0471pcbn 1 tablet by mouth once daily as neededTrazodone 100 mg tablet Active 100 MG PO Daily as needed August 21, 2024 8:09am Complies with drugtherapyurea 400 mg/ml topical cream (15 sources)Start: 12-01-2023 End: 47-67-0234ikpf (Carmol) 40 % cream APPLY TO THE AFFECTED AREA ON BOTH FEET EVERY DAY DIRECTED 12/01/2023 10/19/2024 Discontinued (Therapy completed) Completed/Discontinued Medications MedicationDrug Class(es)DatesSig (Normalized)Sig (Original)3 ML semaglutide 1.34 MG/ML Pen Injector [Ozempic] (2 sources)inject 1 mL by subcutaneous injection every weekOzempic (1 MG/DOSE) 4 MG/3ML 1 ml SQ Once a week for 28 days Not-Takingacetaminophen 325 mg / oxyCODONE hydrochloride 5 mg oral tablet (2 sources)Opioid AgonistStart: 05-17-2023 End: 29-03-2721hosm 1 tablet by mouth every eight hours as needed for pain oxyCODONE-acetaminophen (Percocet) 5-325 MG tablet TAKE 1 TABLET BY MOUTH EVERY 8 HOURS FOR 7 DAYS NEEDED FOR PAIN 0 05/17/2023 06/16/2023 Discontinued (Therapy completed)ampicillin 2000 mg / sulbactam 1000 mg injection (4 sources)Penicillin-class Antibacterial, beta Lactamase InhibitorStart: 06-14-2024 End: 74-00-3381azfkrr 3 g by intramuscular injection every six hoursAmpicillin- Sulbactam (Unasyn) 3 gram recon soln Discontinued 3 GM IM Every 6 hours June 14, 2024 12:00am August 21, 2024 8:08amcephalexin 500 mg oral capsule (2 sources)Cephalosporin Antibacterialtake 1 capsule by mouth every six hours Cephalexin 500 MG 1 capsule Orally every 6 hrs Not-Takingempagliflozin 10 mg oral tablet (2 sources)Sodium-Glucose Cotransporter 2 Inhibitortake 1 tablet by mouth every twenty-four hoursJardiance 10 MG 1 tablet Orally Once a day for 30 day(s) Not-TakingInsulin Glargine-Yfgn (14 sources)Start: 02-28-2024 End: 01-22-1426Gpzuvgs Glargine-Yfgn 100 unit/mL solution Discontinued 44 UNIT SUBCUT Twice daily 100 3 February 28, 2024 8:56am July 24, 2024 3:24pm Type 2 diabetes mellitus with hyperglycemia Type 2 diabetes mellitus with hyperglycemiaStart: 02-28-2024 End: 98-83-9651Uaasaat Glargine-Yfgn 100 unit/mL solution Discontinued 44 UNIT SUBCUT Twice daily 100 February 28, 2024 9:56am July 24, 2024 4:24pmStart: 10-19-2023 End: 75-53-4514Awwzkux Glargine-Yfgn 100 unit/mL solution Discontinued 44 UNIT SUBCUT Twice daily 100 3 October 11:27am February 28, 2024 8:56am Type 2 diabetes mellitus with hyperglycemia Type 2 diabetes mellitus with hyperglycemiaStart: 10-19-2023 End: 51-50-0670Buhanfk Glargine-Yfgn 100 unit/mL solution Discontinued 44 UNIT SUBCUT Twice daily 100 October 19, 2023 12:27pm February 28, 2024 9:56amStart: 10-19-2023 End: 93-08-6034Astqnts Glargine-Yfgn 100 unit/mL solution Discontinued 44 UNIT SUBCUT Twice daily October 19, 2023 11:04am October 19, 2023 11:27am Type 2 diabetes mellitus with hyperglycemia Type 2 diabetes mellituswith hyperglycemia Start: 10-19-2023 End: 10-21-4573Zkupnmv Glargine-Yfgn 100 unit/mL solution Discontinued 44 UNIT SUBCUT Twice daily October 19, 2023 12:04pm October 19, 2023 12:27pmStart: 10-19-2023 End: 52-82-7742Tabpiyr Glargine-Yfgn 100 unit/mL solution Discontinued 40 UNIT SUBCUT Twice daily October 19, 2023 10:40am October 19, 2023 11:05am Type 2 diabetes mellitus with hyperglycemia Type 2 diabetes mellituswith hyperglycemia Start: 10-19-2023 End: 35-09-4088Cuihuqj Glargine-Yfgn 100 unit/mL solution Discontinued 40 UNIT SUBCUT Twice daily October 19, 2023 11:40am October 19, 2023 12:05pmStart: 07-26-2023 End: 16-77-0367Xdyqbry Glargine-Yfgn 100 unit/mL solution Discontinued 46 UNIT SUBCUT Twice daily 90 90 0 July 26, 2023 2:32pm October 19, 2023 10:40am Type 2 diabetes mellitus with hyperglycemia Type 2 diabetes mellitus with hyperglycemiaStart: 07-26-2023 End: 94-61-6154Dkzfxlr Glargine-Yfgn 100 unit/mL solution Discontinued 46 UNIT SUBCUT Twice daily 90 90 July 26, 2023 3:32pm October 19, 2023 11:40amStart: 07-26-2023 End: 47-45-7212Ngmmmvg Glargine-Yfgn 100 unit/mL solution Discontinued 46 UNIT SUBCUT Twice daily 90 90 0 July 26, 2023 8:10am July 26, 2023 2:33pm Type 2 diabetes mellitus with hyperglycemia Type 2 diabetes mellitus with hyperglycemiaStart: 07-26-2023 End: 50-01-3293Fzoaoyi Glargine-Yfgn 100 unit/mL solution Discontinued 46 UNIT SUBCUT Twice daily 90 90 July 26, 2023 9:10am July 26, 2023 3:33pmStart: 07-26-2023 End: 76-23-3125Orveyag Glargine-Yfgn 100 unit/mL solution Discontinued UNIT SUBCUT July 25, 2023 11:00pm July 26, 2023 8:15am FreeTextSig: INJECT 46 UNITS SQ bid; Note: Source Status: Increase(titrate up to max 50 units/day); Provider: Shannon Maza KStart: 07-26-2023 End: 49-35-2959Avxncua Glargine-Yfgn 100 unit/mL solution Discontinued UNIT SUBCUT July 26, 2023 12:00am July 26, 2023 9:15am FreeTextSig: INJECT 46 UNITS SQ bid; Note: Source Status: Increase(titrate up to max 50 units/day); Provider: Shannon Maza Kinsulin glargine-yfgn (Semglee-yfgn) 100 UNIT/ML injection (2 sources)Start: 10-21-2023 End: 28-94-2323xcilqix glargine-yfgn (Semglee-yfgn) 100 UNIT/ML injection INJECT 44 UNITS UNDER THE SKIN TWICE DAILY. MAX DAILY DOSE 100 UNITS 10/21/2023 01/19/2024 Discontinued (Duplicate order)Insulin Glargine-Yfgn 100 unit/mL solution (14 sources)Start: 02-28-2024 End: 82-78-5970Pkklpra Glargine-Yfgn 100 unit/mL solution Discontinued 44 UNIT SUBCUT Twice daily February 28, 2024 9:56am July 24, 2024 4:24pmStart: 66-21-9077Rzepdzi Glargine-Yfgn 100 unit/mL solution Active 44 UNIT SUBCUT Twice daily February 2748:56amStart: 10-19-2023 End: 66-77-3991Qqryjmf Glargine-Yfgn 100 unit/mL solution Discontinued 44 UNIT SUBCUT Twice daily October 19, 2023 12:27pm February 28, 2024 9:56amStart: 10-19-2023 End: 06-92-1760Hlcrout Glargine-Yfgn 100 unit/mL solution Discontinued 44 UNIT SUBCUT Twice daily October 19, 2023 11:27am February 28, 2024 8:56amStart: 10-19-2023 End: 09-80-4966Zeicaap Glargine-Yfgn 100 unit/mL solution Discontinued 44 UNIT SUBCUT Twice daily October 19, 2023 12:04pm October 19, 2023 12:27pmStart: 10-19-2023 End: 61-70-7261Rkoaypl Glargine-Yfgn 100 unit/mL solution Discontinued 44 UNIT SUBCUT Twice daily October 19, 2023 11:04am October 19, 2023 11:27amStart: 10-19-2023 End: 94-51-1923Cwwwebk Glargine-Yfgn 100 unit/mL solution Discontinued 40 UNIT SUBCUT Twice daily October 19, 2023 11:40am October 19, 2023 12:05pmStart: 10-19-2023 End: 31-29-2648Jnsuvjk Glargine-Yfgn 100 unit/mL solution Discontinued 40 UNIT SUBCUT Twice daily October 19, 2023 10:40am October 19, 2023 11:05amStart: 07-26-2023 End: 32-37-9823Aihjvws Glargine-Yfgn 100 unit/mL solution Discontinued 46 UNIT SUBCUT Twice daily 90 90 July 26, 2023 3:32pm October 19, 2023 11:40amStart: 07-26-2023 End: 97-61-0314Vjomaxp Glargine-Yfgn 100 unit/mL solution Discontinued 46 UNIT SUBCUT Twice daily 90 90 July 26, 2023 2:32pm October 19, 2023 10:40amStart: 07-26-2023 End: 86-20-8948Ocdgboc Glargine-Yfgn 100 unit/mL solution Discontinued 46 UNIT SUBCUT Twice daily 90 90 July 26, 2023 9:10am July 26, 2023 3:33pmStart: 07-26-2023 End: 01-89-0279Wvhcazl Glargine-Yfgn 100 unit/mL solution Discontinued 46 UNIT SUBCUT Twice daily 90 90 July 26, 2023 8:10am July 26, 2023 2:33pmStart: 07-26-2023 End: 27-66-8357Qqxyokg Glargine-Yfgn 100 unit/mL solution Discontinued UNIT SUBCUT July 26, 2023 12:00am July 26, 2023 9:15am FreeTextSig: INJECT 46 UNITS SQ bid; Note: Source Status: Increase(titrate up to max 50 units/day); Provider: Shannon Maza KStart: 07-26-2023 End: 65-04-3122Zwxynnj Glargine-Yfgn 100 unit/mL solution Discontinued UNIT SUBCUT July 25, 2023 11:00pm July 26, 2023 8:15am FreeTextSig: INJECT 46 UNITS SQ bid; Note: Source Status: Increase(titrate up to max 50 units/day); Provider: Shannon Maza Kinsulin lispro 100 unt/ml injectable solution (20 sources)Insulin AnalogStart: 52-19-0027Ubxrivy Lispro Active 0 SUBCUT .COMPLEX January 26, 2024 10:37am subcutaneously; 1:4 carb ratio ac tid. 1:15 corrective scale ac tid (hs if >200 half dose) as directed; (expect up to 60 units/day)Start: 12-15-2023 End: 53-64-9433Hgxorba Lispro Discontinued 0 SUBCUT .COMPLEX 60 December 15, 2023 2:47pm January 26, 2024 10:37am subcutaneously; 1:4 carb ratio ac tid. 1:15 corrective scale ac tid (hs if >200 half dose) as directed; (expect up to 60 units/day)Start: 10-19-2023 End: 52-70-0673Ghlmyzi Lispro Discontinued 0 SUBCUT .COMPLEX 60 October 19, 2023 12:27pm December 15, 2023 2:48pm subcutaneously; 1:4 carb ratio ac tid. 1:15 corrective scale ac tid (hs if >200 half dose) as directed; (expect up to 60 units/day)Start: 10-19-2023 End: 13-52-5625Hykevei Lispro 100 unit/mL solution Discontinued 0 SUBCUT .COMPLEX 60 January 26, 2024 9:37amOctober 2023 9:12am Type 2 diabetes mellitus with hyperglycemia Type 2 diabetes mellitus withhyperglycemia 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 inspector (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 subcutaneously; 1:4 carb ratio ac tid. 1:15 corrective scale ac tid (hs if >200 half dose) as directed; (expect up to 60 units/day)Start: 10-19-2023 End: 47-27-2354Xxztmrj Lispro Discontinued 0 SUBCUT .COMPLEX October 19, 2023 12:00am October 19, 2023 12:28pm subcutaneously; 1:4 carb ratio ac tid. 1:15 corrective scale ac tid (hs if >200 half dose) as directed; (expect up to 60 units/day)Start: 26-68-6959Vtwgrzz Lispro Active 0 SUBCUT .COMPLEX October 19, 2023 12:00am subcutaneously; 1:4 carb ratio ac tid. 1:15 corrective scale ac tid (hs if >200 half dose) as directed; (expect up to 60 units/day)Insulin Lispro 100 UNIT/ML 1:4 carb ratio ac tid. 1:15 corrective scale ac tid (hs if >200 half dose) as directed for 90 days (expect up to 60 units/day) ActiveInsulin Lispro 100 UNIT/ML 1:5 carb ratio ac tid. 1:15 corrective scale ac tid (hs if >200 half dose) as directed for 90 days expect up to max 60 units/day ActiveInsulin Lispro 100 UNIT/ML 1:4 carb ratio ac tid. 1:15 corrective scale ac tid (hs if >200 half dose) as directed for 90 days (expect up to 60 units/day) Active linezolid 600 mg oral tablet (4 sources)Oxazolidinone AntibacterialStart: 06-14-2024 End: 09-07-0369dftl 1 tablet by mouth twice dailyLinezolid 600 mg tablet Discontinued 600 MG PO Twice daily June 14, 2024 12:00am August 21, 2024 8:09am3 ml liraglutide 6 mg/ml pen injector (20 sources)GLP-1 Receptor AgonistStart: 10-19-2023 End: 23-86-0824Ibcoqucjsqp (Victoza 3-Connor) 0.6 mg/0.1 mL (18 mg/3 mL) pen injector Discontinued 0 SUBCUT .COMPLEX 27 0 August 21, 2024 8:35am October 25, 2024 7:44am Type 2 diabetes mellitus with hyperglycemia 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 with hyperglycemia 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 1.8mg once daily Start: 45-26-1384omisqk 1.8 mg by subcutaneous injection once dailyVictoza 18 MG/3ML 1.8mg Subcutaneous daily for 84 days May, Activepen needle, diabetic (Merline 2nd Gen Pen Needle) (2 sources)Start: 11-27-2024 End: 58-87-7572tnn needle, diabetic (Merline 2nd Gen Pen Needle) Discontinued .Route November 26, 2024 11:00pm November 27, 2024 9:42amStart: 94-71-3019ajs needle, diabetic (Merline 2nd Gen Pen Needle) Active .Route November 27, 2024 12:00am Problems Active Problems Problem ClassificationProblemDateDocumented DateEpisodic/ChronicAcquired foot deformities (20 sources)Hallux rigidus, unspecified foot; Translations: [Hallux rigidus, left foot]Onset: 821313-53-7553PzwtxtnLsxsuvip foot deformities (1 source)Flat foot [pes planus] (acquired), left foot; Translations: [FLAT FOOT PES PLANUS ACQ LT FOOT]Onset: 77-95-2467OaydutzoTjxhqibgiofexo/social admission (15 sources)Dietary counseling and surveillance; Translations: [Patient encounter status]Onset: 01-06-2022 Resolved: 43-23-4081VcycdsfsLhhkajuck infection; unspecified site (4 sources)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; Translations: [Infection with drug-resistant microorganisms, unspecified, with multiple drug resistance]34-52-3270XlatwbtqVxhzrkw ulcer of skin (20 sources)Non-pressure chronic ulcer of other part of unspecified foot with unspecified severity; Translations: [Non-pressure chronic ulcer of other part of left foot with fat layer exposed]Onset: 05-25-2022 Resolved: 774054-83-0415GmuzaedMzbcngzy mellitus with complications (20 sources)Hyperglycemia due to type 2 diabetes mellitus; Translations: [Type 2 diabetes mellitus with hyperglycemia]Onset: 01-06-2022 Resolved: 75-45-4525XnoznzsDxymztmc mellitus without complication (5 sources)Diabetes mellitus; Translations: [Type 2 diabetes mellitus without complications]40-58-8893KmexcklBhytstmba of lipid metabolism (20 sources)Hyperlipidemia; Translations: [Hyperlipidemia, unspecified]Onset: 01-06-2022 Resolved: 88-09-8149NxnugvwYsygqriqb hypertension (20 sources)Hypertensive disorder; Translations: [Essential (primary) hypertension]Onset: 01-06-2022 Resolved: 50-08-3457YtdaygsXvmxszkvjdunb mental health disorders (4 sources)Depressed mood; Translations: [Other symptoms and signs involving emotional state]95-72-5051TxzkwhmxIbvolkwcwhg deficiencies (9 sources)Vitamin D deficiency; Translations: [Vitamin D deficiency, unspecified]ChronicNutritional deficiencies (20 sources)Deficiency of other specified B group vitamins; Translations: [Cobalamin deficiency]Onset: 01-06-2022 Resolved: 26-15-8286TnfyvxjsNwnm wounds of extremities (20 sources)Traumatic amputation of toe; 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, initial encounter]Onset: 10-02-2022 81-25-7326XwutcpzXicd wounds of extremities (20 sources)Traumatic amputation of toe; Translations: [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, sequela]Onset: 910222-50-0298Gvtjabp Open wounds of extremities (19 sources)Unspecified open wound, unspecified foot, initial encounter; Translations: [Injury of left foot]EpisodicOsteoarthritis (20 sources)Arthritis of left foot; Translations: [Primary osteoarthritis, left ankle and foot]Onset: 846412-95-5658VlvkawuDzpwm aftercare (15 sources)Long-term current use of insulin; Translations: [M[facility] (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]12-27-3506XqodthndOilqo aftercare (4 sources)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 inspector (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Onset: 01-06-2022 Resolved: 45-89-7508VngyqydgGrfbh aftercare (3 sources)Drug therapy finding; Translations: [M[facility] (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 antibiotics]71-20-3098IcvbmxpqNkztl aftercare (1 source)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 inspector (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 antibiotics; Translations: [Long-term (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 antibiotics]79-06-0506KoqtoxxoFscer bone disease and musculoskeletal deformities (5 sources)Acquired absence of right foot; Translations: [ACQUIRED ABSENCE OF RIGHT FOOT]Onset: 04-53-4079NxbnkaoDrwst bone disease and musculoskeletal deformities (1 source)Acquired absence of other toe(s), unspecified sideEpisodicOther bone disease and musculoskeletal deformities (2 sources)Absence of toe; Translations: [Acquired absence of other toe(s), unspecified side]91-29-7327TbxbzabvTwfvp connective tissue disease (4 sources)Pain in left foot; Translations: [PAIN IN LEFT FOOT]Onset: 10-06-2022 EpisodicOther nutritional; endocrine; and metabolic disorders (9 sources)Metabolic syndrome X; Translations: [Metabolic syndrome]ChronicOther nutritional; endocrine; and metabolic disorders (20 sources)Body mass index 40+ - severely obese; Translations: [Body mass index (BMI) 50.0-59.9, adult]81-57-8550SwnlpcrIufig nutritional; endocrine; and metabolic disorders (1 source)Body mass index (BMI) 45.0-49.9, adultOnset: 01-06-2022 Resolved: 72-06-7380LquydwsXdqpr nutritional; endocrine; and metabolic disorders (6 sources)Body mass index (BMI) 50.0-59.9, adult; Translations: [Body Mass Index 50.0-59.9, adult]ChronicOther nutritional; endocrine; and metabolic disorders (1 source)Morbid (severe) obesity due to excess calories; Translations: [MORBID SEVERE OBES D/T EXCESS JIMMY]Onset: 51-68-5421JncqpjkDpgaf nutritional; endocrine; and metabolic disorders (20 sources)Lipoprotein deficiency disorder; Translations: [Lipoprotein deficiency]Onset: 558182-87-3285MffdojqUuzzs nutritional; endocrine; and metabolic disorders (20 sources)Morbid obesity; Translations: [Morbid (severe) obesity due to excess calories]Onset: 996117-17-2399SlsjwnfNaupp skin disorders (5 sources)Nail dystrophy; Translations: [NAIL DYSTROPHY]Onset: 11-20-2021 EpisodicOther skin disorders (1 source)Changes in skin textureEpisodicOther upper respiratory disease (2 sources)Nasal congestion; Translations: [Nasal congestion]09-81-8158Znhjkgbr Residual codes; unclassified (4 sources)Insomnia; Translations: [Insomnia, unspecified]86-95-4899Qyqcnrsd Unclassified (3 sources)Patient on antidepressant monitoring planOnset: Unclassified (3 sources)Baseline PHQ-9Onset: Past or Other Problems Problem ClassificationProblemDateDocumented DateEpisodic/ChronicComplications of surgical procedures or medical care (5 sources)Disruption of wound, unspecified, initial encounter; Translations: [DISRUPTION WOUND UNS INITIAL ENC]Onset: 45-93-4862VvkolnlvVimcngryp arthritis and osteomyelitis (except that caused by tuberculosis or sexually transmitted di sease) (20 sources)Osteomyelitis of right foot; Translations: [Osteomyelitis, unspecified]Onset: 10-02-2022 Resolved: 953992-85-1713WgkigcmQlqjp infections; including parasitic (20 sources)Personal history of other infectious and parasitic diseases; Translations: [History of COVID-19]Onset: 05-13-2020 Resolved: 154468-53-8533HseggenhDtbaz non-traumatic joint disorders (1 source)Pain in left ankle and joints of left foot; Translations: [PAIN IN LEFT ANKLE]Onset: 06-14-4831ExmvkcblJgcjm nutritional; endocrine; and metabolic disorders (20 sources)H/O: Disorder; Translations: [Personal history of other endocrine, nutritional and metabolic disease]Onset: 04-13-2018 Resolved: 311330-41-7306NvcuagkvLbifi skin disorders (5 sources)Corns and callosities; Translations: [CORNS AND CALLOSITIES]Onset: 99-21-8993AgzbysgnUiedxnvuryf injury; contusion (4 sources)Blister (nonthermal), right foot, initial encounter; Translations: [BLISTER NONTHERMAL RT FOOT INITIAL]Onset: 68-65-1605Aukjyrac Results Test NameValueInterpretationReference WcsabNklzxeqrHaS6j HPLC (Bld) [Mass fraction]Ordered By: Link Ortega on 89-36-4123PaR1t (Bld) [Mass fraction]7.9 % [facility] HospitalNo Panel InformationOrdered By: Link Ortega on 90-70-7076Ebyxthr Glnxvkl092FsrmngrvbCleveland Clinic Hillcrest HospitalALBUMIN, RANDOM URINE W/CREATININEon 36-50-6196WTHTTVM, URINE3.1 mg/dLNormalSee Note:[facility] DiagnosticsComment on above:Result Comment: Reference Range: Reference Range Not establishedPerformed By: #### 55966, 6517, 927, 32973, 7600 #### [facility] [address] , [address] [place] [address] [facility] [employer]: Mauro Handley MD #### [id number] #### [facility] [place] [address] Superintendent [employer] [facility]: Emeli Kohli FlatiALBUMIN/CREATININE RATIO, RANDOM URINE61 mg/g creatHigh<30Quest DiagnosticsComment on above:Result Comment: The ADA defines abnormalities in albumin excretion as follows: Albuminuria Category Result (mg/g creatinine) Normal to Mildly increased <30 Moderately increased 30-299 Severely increased > OR = 300 The ADA recommends that at least two of three specimens collected within a 3-6 month period be abnormal before considering a patient to be within a diagnostic category.Performed By: #### 00699, 6517, 927, 70767, 7600 #### [facility] [address] [place] [address], [address] [place], [place] [address] [facility] [employer] [facility]: Mauro Handley MD #### [id number] #### [facility] [address] [place] [address] [facility] [employer] [facility]: Emeli Kohli FlatiCreatinine (U) [Mass/Vol]51 mg/wNZxcvjo48-149 [facility] DiagnosticsComment on above:Performed By: #### 85669, 6517, 927, 33926, 7600 #### [facility] [address] [place] [address], [address] [place] [address] [facility] [employer] [facility]: Mauro Handley MD #### [id number] #### [facility] [address] [place] [address] [facility] [employer] [facility]: Emeli StockiCOMPREHENSIVE METABOLIC PANELon 02-01-2025 Albumin [Mass/Vol]4.4 g/dLNormal3.6-5.1Quest DiagnosticsComment on above: Performed By: #### 21412, 6517, 927, 56938, 7600 #### [facility] [address], [address] [place] [address] [facility] [employer] [facility]: Mauro Handley MD #### [id number] #### [facility] [address] [place] [address] Superintendent [employer] [facility]: Emeli StockiAlbumin/Globulin [Mass ratio]1.6 {ratio}Normal 1.0-2.5Quest DiagnosticsComment on above:Performed By: #### 46574, 6517, 927, 82598, 7600 #### [facility] [address], [address] [place], [place] [address] [facility] [employer] [facility]: Mauro Handley MD #### [id number] #### [facility]-[address] [address] [facility] [employer] [facility]: Emeli StockiALP [Catalytic activity/Vol]113 U/LNormal 36-130Quest DiagnosticsComment on above:Performed By: #### 45878, 6517, 927, 02306, 7600 #### [facility] [address], [address] [place] [address] [facility] [employer] [facility]: Mauro Handley MD #### [id number] #### [facility]-[address] [address] Superintendent [employer] [facility]: Emeli Kohli FlatiALT [Catalytic activity/Vol]26 U/LNormal9-46 [facility] DiagnosticsComment on above:Performed By: #### 87529, 6517, 927, 66171, 7600 #### [facility] [address], [address] [place] [address] [facility] [employer] [facility]: Mauro Handley MD #### [id number] #### [facility] [address] [place] [address] [facility] [employer] [facility]: Emeli Kohli FlatiAST [Catalytic activity/Vol]21 U/VGsulfk66-83 [facility] DiagnosticsComment on above:Performed By: #### 65861, 6517, 927, 51761, 7600 #### [facility] [address], [address] [place] [address] [facility] [employer] [facility]: Mauro Handley MD #### [id number] #### [facility] [address] [place] [address] Superintendent [employer] Laboratory: Emeli Kohli FlatiBilirubin [Mass/Vol]0.5 mg/dLNormal0.2-1.2 [facility] DiagnosticsComment on above:Performed By: #### 37503, 6517, 927, 94093, 7600 #### [facility] [address], [address] [place] [address] Superintendent [employer] Laboratory: Mauro Handley MD #### [id number] #### [facility] [address] Superintendent [employer]ophysical Laboratory: Emeli Kohli FlatiBUN/CREATININE RATIOSEE NOTE:Normal6-22Quest DiagnosticsComment on above:Result Comment: Not Reported: BUN and Creatinine are within reference range.Performed By: #### 30606, 6517, 927, 13329, 7600 #### [facility] [address], [address] [place], [place] [address] [facility] [employer] [facility]: Mauro Handley MD #### [id number] #### [facility] [address] [place], [place] [phone] Superintendent [employer] Laboratory: Emeli Kohli FlatiCalcium [Mass/Vol]9.2 mg/dLNormal8.6-10.3Quest DiagnosticsComment on above:Performed By: #### 80772, 6517, 927, 75741, 7600 #### [facility] [address], [address] [place] [address] [facility] [employer] [facility]: Mauro Handley MD #### [id number] #### [facility] [address] [place] [address] Superintendent [employer] [facility]: Emeli Kohli FlatiChloride [Moles/Vol]103 mmol/OXgrhat89-195 [facility] DiagnosticsComment on above:Performed By: #### 94474, 6517, 927, 27139, 7600 #### [facility] [address], [address] [place] [address] Superintendent [employer] [facility]: Mauro Handley MD #### [id number] #### [place] [address] Superintendent [employer]ophysical Laboratory: Emeli StockiCO2 [Moles/Vol]26 mmol/GGfkzxu51-20Mdink DiagnosticsComment on above:Performed By: #### 20145, 6517, 927, 23358, 7600 #### [facility] [address], [address] [place], [place] [address] [facility] [employer] [facility]: Mauro Handley MD #### [id number] #### [facility] [address] Superintendent [employer]ophysical Laboratory: Emeli StockiCreatinine [Mass/Vol]0.96 mg/dLNormal0.60-1.29 [facility] DiagnosticsComment on above:Performed By: #### 81747, 6517, 927, 49780, 7600 #### [facility] [address], [address] [place] [address] [facility] [employer] [facility]: Mauro Handley MD #### [id number] #### [facility] [address] Superintendent [employer]ophysical Laboratory: Emeli StockiGFR/1.73 sq M.predicted among non-blacks MDRD (S/P/Bld) [Vol rate/Area]99 mL/min/{1.73_m2}Normal> OR = 60[facility] Comment on above:Performed By: #### 55833, 6517, 927, 79084, 7600 #### [facility] [address], [address] [place] [address] [facility] [employer] [facility]: Mauro Handley MD #### 35968 #### [facility] [address] Superintendent [employer]ophysical Laboratory: Emeli Kohli FlatiGlobulin (S) [Mass/Vol]2.8 g/dLNormal1.9-3.7 [facility] DiagnosticsComment on above:Performed By: #### 31427, 6517, 927, 69893, 7600 #### [facility] [address], [address] [place] [address] [facility] [employer] [facility]: Mauro Handley MD #### [id number] #### [facility] [address] [place], [place] [address] Superintendent [employer] [facility]: Emeli Kohli FlatiGlucose [Mass/Vol]89 mg/bKXiovgo27-60Mznkn DiagnosticsComment on above:Result Comment: Fasting reference intervalPerformed By: #### 14082, 6517, 927, 57532, 3090 #### [facility] [address], [address] [place] [address] [facility] [employer] [facility]: Mauro Handley MD #### 38825 #### [place] [address] Superintendent [employer] Laboratory: Emeli Kohli FlatiPotassium [Moles/Vol]4.6 mmol/LNormal3.5-5.3 [facility] DiagnosticsComment on above:Performed By: #### 33697, 6517, 927, 59074, 2120 #### [facility] [address], [address] [place] [address] [facility] [employer] [facility]: Mauro Handley MD #### 81012 #### [facility] [phone] Superintendent [employer]ophysical Laboratory: Emeli Kohli FlatiProtein [Mass/Vol]7.2 g/dLNormal6.1-8.1Quest DiagnosticsComment on above:Performed By: #### 60259, 6517, 927, 47341, 3970 #### [facility] [address], [address] [place] [address] [facility]: Mauro Handley MD #### [id number] #### [facility] [address] [place] [address] Superintendent [employer] [facility]: Emeli StockiSodium [Moles/Vol]137 mmol/GTpdyhl328-871Jlztx DiagnosticsComment on above:Performed By: #### 57647, 6517, 927, 70621, 7600 #### [facility] [address], [address] [place], [place] [address] Superintendent [employer] [facility]: Mauro Handley MD #### 59044 #### [facility] [address] [place] [address] Superintendent [employer] Laboratory: Emeli StockiUrea nitrogen [Mass/Vol]20 mg/dLNormal- [facility] DiagnosticsComment on above:Performed By: #### 07158, 6517, 927, 32105, 7600 #### [facility] [address], [address] [place], [place] [address] [facility] [facility]: Mauro Handley MD #### [id number] #### [facility] [address] [place] [address] Superintendent [employer] [facility]: Emeli Parra ACCOUNT TRACKINGon 65-80-2133TZFOPHYA CATAWBA ACCOUNTNormalQuest DiagnosticsComment on above:Result Comment: We were unable to identify an account number for the order submitted. If you do not have a [facility] account number or if your account information needs to be updated please call [phone] ([phone]) for assistance. To prevent delays in testing and processing of your orders please provide the following information for this order and with every additional order submitted: [facility] account number and account name Client address Client phone and fax number NPI number of ordering physician along with the physician name.Performed By: #### 76572, 6517, 927, 67982, 7600 #### [facility] [address], [address] [place] [address] Superintendent [employer] [facility]: Mauro Handley MD #### [id number] #### [facility] [address] [place] [address] Superintendent [employer] Laboratory: [facility] 45-12-0797Pfyvkiaoxcn [Mass/Vol]96 mg/dLNormal<200Quest DiagnosticsComment on above:Order Comment: FASTING:YES FASTING: YESPerformed By: #### 04766, 6517, 927, 92279, 7600 #### [facility] [address], [address] [place] [address] [facility] [employer] [facility]: Mauro Handley MD #### 60017 #### [facility] [address] [place] [address] Superintendent [employer] Laboratory: Emeli StockiCholesterol in HDL [Mass/Vol]24 mg/dLLow> OR = 40Quest DiagnosticsComment on above:Order Comment: FASTING:YES FASTING: YESPerformed By: #### 74316, 6517, 927, 03906, 7600 #### [facility] [address], [address] [place] [address] [facility] [employer] [facility]: Mauro Handley MD #### [id number] #### [facility] [address] [place] [address] Superintendent [employer] Laboratory: Emeli StockiCholesterol in LDL [Mass/Vol]49 mg/dLNormal [facility] DiagnosticsComment on above:Order Comment: FASTING:YES FASTING: YESResult Comment: Reference range: <100 Desirable range <100 mg/dL for primary prevention; <70 mg/dL for patients with CHD or diabetic patients with > or = 2 CHD risk factors. LDL-C is now calculated using the Fco calculation, which is a validated novel method providing better accuracy than the Friedewald equation in the estimation of LDL-C. Nick LOUIS et al. SOFIE. 2013;310(19): 8021-4233 (http://education.[employer].BizAnytime/faq/UPT963)Performed By: #### 70404, 6517, 927, 72974, 7600 #### [facility] [address], [address] [place], [place] [address] Superintendent [employer] [facility]: Mauro Handley MD #### [id number] #### [facility] [address] [place] [address] Superintendent [employer] Laboratory: Emeli StockiCholesterol.total/Cholesterol in HDL [Mass ratio]4.0 {ratio}Normal<5.0Quest DiagnosticsComment on above:Order Comment: FASTING:YES FASTING: YESPerformed By: #### 17050, 6517, 927, 62974, 7600 #### [facility] [place] [address] [facility], [address] [place], [place] [address] Superintendent [employer] [facility]: Mauro Handley MD #### 76208 #### [facility] [address] [place] [address] Superintendent [employer] [facility]: Emeli Lang HDL KIZDPBHTZLF26 mg/dL (calc)Normal<130 [facility] DiagnosticsComment on above:Order Comment: FASTING:YES FASTING: YESResult Comment: For patients with diabetes plus 1 major ASCVD risk factor, treating to a non-HDL-C goal of <100 mg/dL (LDL-C of <70 mg/dL) is considered a therapeutic option.Performed By: #### 44507, 6517, 927, 26794, 7600 #### [facility] [address], [address] [place] [address] [facility] [employer] [facility]: Mauro Handley MD #### 09221 #### [facility] [address] [place] [address] Superintendent [employer] [facility]: Emeli StockiTriglyceride [Mass/Vol]147 mg/dLNormal<150 [facility] DiagnosticsComment on above:Order Comment: FASTING:YES FASTING: YESPerformed By: #### 82751, 6517, 927, 92073, 7600 #### [facility] [address], [address] [place], [place] [address] Superintendent [employer] [facility]: Mauro Handley MD #### 33239 #### [facility] [address] [place] [address] Superintendent [employer] [facility]: Emeli HamiltonH W/REFLEX TO FT4on 39-21-2841EEQ W/REFLEX TO FT41.71 mIU/LNormal0.40-4.50Quest DiagnosticsComment on above:Result Comment: Your request to have a duplicate copy faxed has been acknowledged. Queued to: [id number] By: #### 49466, 6517, 927, 29382, 7600 #### [facility] [address] [facility], [address] [facility] [employer] [facility]: Mauro Handley MD #### 64417 #### [facility] [place] [address] Superintendent [employer] Laboratory: Emeli StockiVITAMIN B12on 73-01-1436Wewmuxibv (Vitamin B12) [Mass/Vol]450 pg/uZSbviva861-8614Bbaom DiagnosticsComment on above: Performed By: #### 91675, 6517, 927, 59876, 7600 #### [facility] [address], [address] [place] [address] Superintendent [employer] [facility]: Mauro Handley MD #### 79195 #### [facility] [address] [place] [address] Superintendent [employer] Laboratory: Emeli StockiGlomerular filtration rate (GFR) estimation in non- AmericanOrdered By: Link Ortega on 22-67-0641PAH/1.73 sq M.predicted among non-blacks MDRD (S/P/Bld) [Vol rate/Area]99 mL/min/{1.73_m2} [facility] HospitalLaboratory - Chemistry and Chemistry - challengeOrdered By: Link Ortega on 68-47-0348Hmeianenn (Vitamin B12) [Mass/Vol]450 pg/mLCleveland Clinic Hillcrest HospitalCreatinine (U) [Mass/Vol]51 mg/dLCleveland Clinic Hillcrest HospitalALP [Catalytic activity/Vol]113 U/L [facility] HospitalALT [Catalytic activity/Vol]26 U/LFAdena Health SystemAST [Catalytic activity/Vol]21 U/[facility] Medical CenterBilirubin [Mass/Vol]0.5 mg/dLCleveland Clinic [facility] Hospital Calcium [Mass/Vol]9.2 mg/dLCleveland Clinic Hillcrest HospitalChloride [Moles/Vol] 103 mmol/LFAdena Health SystemCO2 [Moles/Vol]26 mmol/[facility] CenterCreatinine [Mass/Vol]0.96 mg/dLCleveland Clinic Hillcrest HospitalGlucose [Mass/Vol]89 mg/dLCleveland Clinic Hillcrest HospitalPotassium [Moles/Vol]4.6 mmol/LFAdena Health SystemProtein [Mass/Vol]7.2 g/dL [facility], Incodium [Moles/Vol]137 mmol/LFAdena Health SystemUrea nitrogen [Mass/Vol]20 mg/dLCleveland Clinic [facility] Hospital Cholesterol [Mass/Vol]96 mg/dLCleveland Clinic Hillcrest HospitalCholesterol in HDL [Mass/Vol]24 mg/dLCleveland Clinic Hillcrest HospitalCholesterol in LDL [Mass/Vol]49 mg/dLCleveland Clinic Hillcrest HospitalCholesterol.total/Cholesterol in HDL [Mass ratio]4.0 {ratio}[facility] HospitalTriglyceride [Mass/Vol]147 mg/dLCleveland Clinic Hillcrest HospitalNo Panel InformationOrdered By: Link Ortega on 18-55-9195Cwopqjd Stimulating Hormone 3rd Gen1.71[facility] HospitalUrine Microalbumin mg/dl3.1FAdena Health SystemUrine Microalbumin/Creatinine Kveuc15UasifexyqCleveland Clinic Hillcrest HospitalVLDL Twnqltngwkk75 mg/dLCleveland Clinic Hillcrest HospitalUrine albumin/creatinine ratioOrdered By: Link Ortega on 27-25-6853Unxcpao/Creatinine (U) [Ratio]4.4 g/dLCleveland Clinic Hillcrest HospitalNo Panel Informationon 29-92-7586BRZJ FAST CULTURE Acid Fast Culture Specimen has been received and testing has been initiated. [facility] HealthcareACID FAST CULTURENegativeNOMercy McCune-Brooks HospitalACID FAST CULTURENo acid fast bacilli isolated after 6 weeks.[facility] CenterACID FAST CULTUREPerformed at: - [facility] HealthcareACID FAST [id number] [place], [place] [address]BJPO HealthcareACID FAST CULTURELab Director: Lalo Everett PhD, Phone: [phone] HealthcareACID FAST SMEAR Acid Fast Smear Negative [facility] HealthcareAFB SPECIMEN PROCESSING AFB Specimen Processing [facility] Psychiatric CenterAFB SPECIMEN PROCESSINGTissue GrindingCHRISTUS Santa [facility] Medical [facility] right foot fascia for culture CLINISYLe [facility]heur [facility], MemphisCLINISYNCNo Panel Informationon 36-39-3584HLPUDI (MYCOLOGY) CULTURE Fungus (Mycology) Culture WILL FOLLOW [facility] JoplinNGUS (MYCOLOGY) CULTURENo yeast or mold isolated after 4 weeks. [facility] CenterFUNGUS (MYCOLOGY) CULTUREPerformed at: [facility] HospitalFUNGUS (MYCOLOGY) [id number] [place], [place] [id number] Psychiatric CenterFUNGUS (MYCOLOGY) CULTURELab Director: Lalo Everett PhD, Phone: [phone] HealthcareFUNGUS STAIN Fungus Stain [facility] CenterFUNGUS STAINKOH/Calcofluor preparation: no fungus observed.[facility] right foot fascia for culture [facility] right foot ulcer CLINISYNCANAEROBIC CULT, EXTENDED INCUBon 93-60-1837QLLSCIETL CULT, EXTENDED INCUB Anaerobic Cult, Extended Incub [facility] HealthcareANAEROBIC CULT, EXTENDED INCUBSpecimen has been received and testing has been initiated.[facility] HealthcareANAEROBIC CULT, EXTENDED INCUB Organism: Prevotella disiens :[facility] HealthcareANAEROBIC CULT, EXTENDED INCUB *ABNORMAL*[facility] HealthcareANAEROBIC CULT, EXTENDED INCUBScant growthNOMS HealthcareANAEROBIC CULT, EXTENDED INCUBStudies at LabCenterpoint Medical Center Holdings have confirmed theNOMS HealthcareANAEROBIC CULT, EXTENDED INCUBobservations of others who have demonstrated thatNOMS HealthcareANAEROBIC CULT, EXTENDED INCUB Prevotella, Porphyromonas and Bacteroides speciesNOMS HealthcareANAEROBIC CULT, EXTENDED INCUBother than Bacteroides fragilis group are routinelyNOMS Healthcare ANAEROBIC CULT, EXTENDED INCUBsusceptible to Cefoxitin, Chloramphenicol, andNOMS HealthcareANAEROBIC CULT, EXTENDED INCUBMetronidazole and are usually resistant to Penicillin.[facility] HealthcareANAEROBIC CULT, EXTENDED INCUBPrevotella disiens [facility] HealthcareANAEROBIC CULT, EXTENDED INCUB O:PREDIS Isolated [facility] HealthcareGRAM STAIN RESULTon 32-89-6711EWQO STAIN RESULT Gram Stain Result NOM HealthcareGRAM STAIN RESULTNo white blood cells seen.[facility] HealthcareGRAM STAIN RESULTNOHI HealthcareGRAM STAIN RESULTNo organisms seenNOHI HealthcareGRAM STAIN RESULTPerformed at: [facility] HealthcareGRAM STAIN RESULT [address] [place], [place] [id number] HealthcareGRAM STAIN RESULTLab Director: Lalo Everett PhD, Phone: [phone] Psychiatric CenterNo Panel Informationon 18-53-6832ROHWGSOJJSWPS HealthcareTISSUE CULTUREon 05-11-2024 TISSUE CULTURE Tissue Culture WILL FOLLOW [facility]iatric CenterTISE CULTUREResearch Psychiatric CenterTISSUE CULTURESpecimen has been received and testing has been initiated.[facility] HealthcareAEROBIC CULTUREon 97-80-3108HOUGJGT CULTURE Aerobic Culture WILL FOLLOW [facility]iatric CenterAEROBIC CULTUREResearch Psychiatric CenterAEROBIC CULTUREMixed skin floraNOHI HealthcareANAEROBIC CULTUREon 32-86-2620POLCAKUMN CULTURE Anaerobic Culture [facility] HealthcareANAEROBIC CULTUREHolding for possible anaerobes.[facility] ANAEROBIC CULTUREOrganism: Prevotella disiens :[facility] HealthcareANAEROBIC CULTURE *ABNORMAL*[facility] HealthcareANAEROBIC CULTURELight growthNOHI HealthcareANAEROBIC CULTUREStudies at [employer] [facility] have confirmed theNOMS HealthcareANAEROBIC CULTUREobservations of others who have demonstrated thatNOHI HealthcareANAEROBIC CULTUREPrevotella, Porphyromonas and Bacteroides speciesNOMercy [facility] ANAEROBIC CULTUREother than Bacteroides fragilis group are routinelyNOHI HealthcareANAEROBIC CULTUREsusceptible to Cefoxitin, Chloramphenicol, andNOHI HealthcareANAEROBIC CULTUREMetronidazole and are usually resistant to Penicillin.[facility] HealthcareANAEROBIC CULTUREPrevotella disiensNOMercy [facility] ANAEROBIC CULTURE O:PREDIS Isolated [facility] HealthcareGRAM STAIN RESULTon 59-44-4197GRYJ STAIN RESULT Gram Stain Result [facility] HealthcareGRAM STAIN RESULTNo white blood cells seen.[facility] HealthcareGRAM STAIN RESULTNOHI HealthcareGRAM STAIN RESULTPositiveNOHI HealthcareGRAM STAIN RESULTPerformed at: [facility] HealthcareGRAM STAIN KBBICE5119 [place], [place] [address]IBEN HealthcareGRAM STAIN RESULTLab Director: Lalo Everett PhD, Phone: [phone] HealthcareNo Panel Informationon 99-93-3432BZVJOXGTIEROR HealthcareLon 04-26-2024L Specimen: [id number] Received: 04/26/24 Status: CALEB Gabriel Num: [id number] Spec Type: Surgical Subm Dr: Natanael Feldman DPM, Tissues: A Skin-Other than Cyst, tag, debridement or plastic repair (RT FOOT ULCER) Procedures: Yenny SCOTT/Mary Robles Age/ Patient Sex Location Account Attending Physician Trev Ontiveros 43/M LABELL [id number] Natanael Feldman DPM, SPEC NUM: [id number] RECD: 04/26/24 STATUS: CALEB GABRIEL NUM: [id number] MARTHA: 04/26/[address]: Natanael Feldman DPM, MS ENTERED: 04/26/[address] [facility] DR: Farzana Rene SPEC TYPE: Surgical DEPT: DERRICK PLUNKETT ENTERED BY: [id number] RECV BY: [id number] ORDERED: HE, Gross/Micro L4 ORDERED: HE, Gross/Micro [...] reveal purple-brown to green, softened cut surfaces. Racking Technician sections are submitted in a single cassette. (1, ss, [id number] A) CPT Codes 40960 Specimen: [id number] Received: 04/26/24 Status: SOUT Req Num: [id number] Spec Type: Surgical Subm Dr: Natanael Feldman DPM, MS Tissues: A Skin-Other than Cyst, tag, debridement or plastic repair (RT FOOT ULCER) Procedures: HE, Gross/Micro L4 Patient: Trev Ontiveros [id number] (Continued) Signed (signature on file) Melanie Roca MD 04/27/[address] [place] [address] Physician GroupXR FOOT RT MIN 3Von 04-26-2024 [place] [address] XRay Report Signed Patient: TREV ONTIVEROS MR#: [id number] : 1980 Acct:[id number] Age/Sex: 43 / M ADM Date: 04/25/24 Loc: Attending Dr: Meena Stinson Ordering Physician: Meena Stinson Date of Service: 04/25/24 Procedure(s): XR foot RT min 3V Accession Number(s): [id number] cc: Meena Stinson; NAATLIE HERNANDEZ [place] [id number] Patient Name: TREV ONTIVEROS MRN: [id number] date: 1980 Sex: M Assigned Patient Location: Current Patient Location: [place] Accession/Order Number: [id number] Exam Date: 04/25/2024 11:58 Report Date: 04/26/2024 09:03 At the request of: MEENA STINSON Procedure: XR foot RT min 3V PROCEDURE: [...] may indicate early osteomyelitis. Electronically authenticated by: GISSEL NAYAK Date: 04/26/2024 09:03 Dictated By: Gissel Nayak M.D. Signed By: 04/26/24905 DD/ 2 TD/TT: Power Chisel Operator:ESTRADAHRadiology, Radiologist, - 04/26/2024 [place] [address] XRay Report Signed Patient: TREV ONTIVEROS MR#: [id number] : 1980 Acct:[id number] Age/Sex: 43 / M ADM Date: 04/25/24 Loc: Attending Dr: Meena Stinson Ordering Physician: Meena Stinson Date of Service: 04/25/24 Procedure(s): XR foot RT min 3V Accession Number(s): [id number] cc: Meena Stinson; NATALIE HERNANDEZ [place] [address] Patient Name: TREV ONTIVEROS MRN: [id number] date: 1980 Sex: M Assigned Patient Location: Current Patient Location: [place] Accession/Order Number: [id number] Exam Date: 04/25/2024 11:58 Report Date: 04/26/2024 09:03 At the request of: MEENA STINSON Procedure: XR foot RT min 3V PROCEDURE: [...] may indicate early osteomyelitis. Electronically authenticated by: GISSEL NAYAK Date: 04/26/2024 09:03 Dictated By: Gissel Nayak M.D. Signed By: 04/26/24905 DD/ 2 TD/TT: Power Chisel Operator: CARMENZA HealthcareRadiology Study observation (narrative)[facility] HealthcareXR FOOT RT MIN 3VOrdered By: Radiologist Radiology on 36-32-1873[employer] Work Phone: XR FOOT RT MIN 3Von 47-99-0169Bus[place] [address] XRay Report Signed Patient: TREV ONTIVEROS MR#: [id number] : 1980 Acct:[id number] Age/Sex: 43 / M ADM Date: 11/02/23 Loc: Attending Dr: Alex Johnson D.P.M. Ordering Physician: Alex Johnson D.P.M. Date of Service: 11/02/23 Procedure(s): XR foot RT min 3V Accession Number(s): [id number] cc: Alex Johnson D.P.M.; NATALIE HERNANDEZ [place] [address] Patient Name: TREV ONTIVEROS MRN: [id number] date: 1980 Sex: M Assigned Patient Location: Current Patient Location: Accession/Order Number: [id number] Exam Date: 11/02/2023 11:13 Report Date: 11/02/2023 [...] Signed By: 11/02/23 1312 DD/ 1310 TD/TT: Power Chisel Operator:TBHRadiology, Radiologist, MD - 11/02/2023 [place] [address] XRay Report Signed Patient: TREV ONTIVEROS MR#: [id number] : 1980 Acct:[id number] Age/Sex: 43 / M ADM Date: 11/02/23 Loc: Attending Dr: Alex Johnson D.P.M. Ordering Physician: Alex Johnson D.P.M. Date of Service: 11/02/23 Procedure(s): XR foot RT min 3V Accession Number(s): [id number] cc: Alex Johnson D.P.M.; NATALIE HERNANDEZ [place] [address] Patient Name: TREV ONTIVEROS MRN: [id number] date: 1980 Sex: M Assigned Patient Location: Current Patient Location: Accession/Order Number: [id number] Exam Date: 11/02/2023 11:13 Report Date: 11/02/2023 [...] Frances M.D. Signed By: 11/02/23 131 DD/ 09 TD/TT: Power Chisel Operator: CARMENZA HealthcareRadiology Study observation (narrative)CARMENZA HealthcareXR FOOT RT MIN 3VOrdered By: Radiologist Radiology on 14-41-5249HWUB Healthcare Work Phone: a1c HEMOGLOBINon 31-24-7805RlV7z (Bld) [Mass fraction] 8.2 %[employer] Other Glucose - FINGER STICKon 95-43-7131Fnamfjf [Mass/Vol] 170 mg/dLNort PatientKeeper Other HbA1c (Bld) [Mass fraction]on 37-15-5948A9R HEMOGLOBIN [employer] Other XR FOOT LT MIN 3Von 92-92-1867XkwCharl[place] [address] XRay Report Signed Patient: TREV ONTIVEROS MR#: [id number] : 1980 Acct:[id number] Age/Sex: 42 / M ADM Date: 04/28/23 Loc: Attending Dr: Natanael Feldman D.P.M. Ordering Physician: Natanael Feldman D.P.M. 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 Signed By: 04/28/23 1429 DD/ 25 TD/TT: Power Chisel Operator:ESTRADAHRadiology, Radiologist, - 07/14/2023 [place] [address] XRay Report Signed Patient: TREV ONTIVEROS MR#: [id number] : 1980 Acct:[id number] Age/Sex: 42 / M ADM Date: 04/28/23 Loc: Attending Dr: Natanael Feldman D.P.M. Ordering Physician: Natanael Feldman D.P.M. 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 Signed By: 04/28/23 1429 DD/ 25 TD/TT: Power Chisel Operator: CARMENZA HealthcareRadiology Study observation (narrative)CARMENZA HealthcareXR FOOT LT MIN 3VOrdered By: Radiologist Radiology on 67-56-1731YQTC Healthcare Work Phone: a1c HEMOGLOBINon 84-04-3753EnM7s (Bld) [Mass fraction] 8.9 %[employer] Other Glucose - FINGER STICKon 59-90-4395Guigtca [Mass/Vol] 201 mg/dLNort PatientKeeper Other HbA1c (Bld) [Mass fraction]on 75-99-2220R6M HEMOGLOBIN [employer] Other PROF CHEM 8 (BAS METB)on 33-27-9048Szcvg gap [Moles/Vol]14.3 mmol/LNormalThe [facility] Medical CenterComment on above:Performed By: #### BMP #### [facility] [address] [address] [address] Lauri ToddCalcium [Mass/Vol]9.4 mg/dLNormal8.5-10.1The [facility] Comment on above:Performed By: #### BMP #### [facility] [address] [place] [address] [address] Lauri ToddChloride [Moles/Vol]101 mmol/OWwjuqr48-652Hhz [facility] Comment on above:Performed By: #### BMP #### [facility] [address] [place] [address] [address] Lauri ToddCO2 [Moles/Vol]26.2 mmol/GAntydm46.0-32.0[facility] Comment on above:Performed By: #### BMP #### [facility] [address] [place] [address] [address] Lauri ToddCreatinine [Mass/Vol]0.90 mg/dLNormal0.70-1.30The [facility] Medical CenterComment on above:Performed By: #### BMP #### [facility] [address] [place] [address] [address] Lauri DumontGFR-AF AUSTRALIAN>60Normal>=60The [facility] Medical CenterComment on above:Performed By: #### BMP #### [facility] [address] [place] [address] [address] Lauri DumontGFR-NON AF AUSTRALIAN>60Normal>=60The [facility] Medical CenterComment on above:Performed By: #### BMP #### [facility] [address] [place] [address] [address] Lauri ToddGlucose [Mass/Vol]146 mg/dLCritically szay76-653Epi [facility] CenterComment on above:Performed By: #### BMP #### [facility] [address] [place] [address] [address] Lauri ToddPotassium [Moles/Vol]4.5 mmol/LNormal3.5-5.1[facility] Comment on above:Performed By: #### BMP #### [facility] [address] [place] [address] [address] Lauri ToddSodium [Moles/Vol]137 mmol/WUktaxi965-041Pwk [facility] Comment on above:Performed By: #### BMP #### [facility] [address] [place] [address] [address] Lauri ToddUrea nitrogen [Mass/Vol]16.0 mg/dLNormal7.0-18.0The [facility] Medical CenterComment on above:Performed By: #### BMP #### [facility] [address] [place] [address] [address] Lauri Delong nitrogen/Creatinine [Mass ratio]17.8 mg/mgNormalThe [facility] Medical CenterComment on above:Performed By: #### BMP #### [facility] [address] [place] [address] [address] Lauri ToddA1C HEMOGLOBINon 31-71-4091FyG3w (Bld) [Mass fraction]8.2 %[employer] Other Glucose - FINGER STICKon 27-93-9721Iuexgam [Mass/Vol] 180 mg/dLNort PatientKeeper Other HbA1c (Bld) [Mass fraction]on 35-94-6847U7D HEMOGLOBIN [employer] Other XR FOOT LT MIN 3 VIEWSon 98-10-4574XF FOOT LT MIN 3 VIEWSEXAM: XR ANKLE LT MIN 3 V, XR [...] Electronically authenticated by: RAFAEL WHITAKER Date: 2022-05-25 11:52[facility] HospitalA1C HEMOGLOBINon 27-06-0427CxP5d (Bld) [Mass fraction]7 %[employer] Other Glucose - FINGER STICKon 76-71-0219Chpphrd [Mass/Vol] 148 mg/dLNort PatientKeeper Other HbA1c (Bld) [Mass fraction]on 34-72-9600E6V HEMOGLOBIN [employer] Other Basic Metabolic Panelon 74-90-3679Scbgc gap [Moles/Vol]20 mmol/KVrdwhe87-31Zykjszyk [facility] SpecialistComment on above: Result Comment: Effective 05/15/2019 reference range changed.Performed By: #### BMP #### [facility] [address] [place], [place] [id number] [Mass/Vol]10.0 mg/dLNormal8.6-10.2[facility] SpecialistComment on above:Performed By: #### BMP #### [facility] [address] [place] [id number] [Moles/Vol]100 mmol/WLixxcj41-857Bkafzpog [facility] SpecialistComment on above:Performed By: #### BMP #### [facility] [address] [place], [place] [id number] [Moles/Vol]22 mmol/WBvlbpk79-32Qqewmpei [facility] SpecialistComment on above:Performed By: #### BMP #### [facility] [address] [place], [place] [id number] [Mass/Vol]0.8 mg/dLNormal0.7-1.4[facility] hospitaln [facility] SpecialistComment on above:Performed By: #### BMP #### [facility] [address] [place], [place] [id number] mL/min/1.94n0Uvynbl>60[facility] hospitaln [facility] SpecialistComment on above:Performed By: #### BMP #### [facility] [address] [place], [place] [id number] mL/min/1.98p4Mwkvdp>60[facility] hospitaln [facility] SpecialistComment on above:Performed By: #### BMP #### [facility] [address] [place], [place] [id number] [Mass/Vol]140 mg/mLTzrt22-52Rtdukuub [place] [facility] SpecialistComment on above:Result Comment: For FASTING Glucose --- ADA reference ranges: Normal 65-99 mg/dl Prediabetes 100-125 Diabetes >/= 126Performed By: #### BMP #### [facility] [address] [place], [place] [id number] [Moles/Vol]4.3 mmol/LNormal3.5-5.5[facility] hospitaln [facility] SpecialistComment on above:Performed By: #### BMP #### [facility] [address] [place], [place] [id number] [Moles/Vol]137 mmol/HKgifrs820-464Unrzukbm [place] [facility] SpecialistComment on above:Performed By: #### BMP #### [facility] [address] [place], [place] [id number] nitrogen [Mass/Vol]17 mg/dLNormal7-25NortOur Lady of [facility] SpecialistComment on above:Performed By: #### BMP #### [facility] [address] [place], [place] [id number] Vital Signs Date TimeVital SignValuePerforming CobodaxzvHmvlvvlw45-58-0406 10:05-0500 Diastolic blood ynxrecxy06 mm[Hg]Maria Fernanda Granados DOUGH BRAKE MACHINE OPERATOR-C Work Phone: [phone] [place], [place] 6536011-03-2025 10:05-0500 Systolic blood lqcentwy625 mm[Hg]Maria Fernanda Granados DOUGH BRAKE MACHINE OPERATOR-C Work Phone: [phone] [place], [place] 6536011-03-2025 10:00-0500 Body ybdvgi231.88 cmSsandra Granados DOUGH BRAKE MACHINE OPERATOR-C Work Phone: [phone] [place], [place] 6536011-03-2025 10:00-0500 Body mass index (BMI) [Ratio]51.8 kg/r3Fxrqxbivjuan Granados DOUGH BRAKE MACHINE OPERATOR-C Work Phone: [phone])[address] [place], [place] 6536011-03-2025 10:00-0500 Body upllwc584.3 kgSajuan Granados DOUGH BRAKE MACHINE OPERATOR-C Work Phone: [phone])[address] [place], [place] 6536011-03-2025 10:00-0500 Heart rate86 /Han Granados DOUGH BRAKE MACHINE OPERATOR-C Work Phone: [phone])[address] [place], [place] 6536011-03-2025 10:00-0500 Respiratory rate18 /Han Granados DOUGH BRAKE MACHINE OPERATOR-C Work Phone: [phone] [place], [place] 6536011-03-2025 10:00-0500 SaO2% (BldA) [Mass fraction]95 %Maria Fernanda Granados DOUGH BRAKE MACHINE OPERATOR-C Work Phone: [phone] [place], [place] 6536009-24-2025 09:20-0400 Body azshhn589.6 cmSsandra Granados DOUGH BRAKE MACHINE OPERATOR Work Phone: [phone] [place], [place] 2392009-24-2025 09:20-0400Body mass index (BMI) [Ratio]52.48 kg/w2CnsyuoauMaria Fernanda Granados DOUGH BRAKE MACHINE OPERATOR Work Phone: [phone])[address] [place], [place] 2392009-24-2025 09:20-0400Body .09 kgMaria Fernanda Granados DOUGH BRAKE MACHINE OPERATOR Work Phone: [phone] [place], [place] 2392009-24-2025 09:20-0400Diastolic blood ohhtmfiz87 mm[Hg]Maria Fernanda Mezaman DOUGH BRAKE MACHINE OPERATOR Work Phone: [phone]09-24-2025 09:20-0400Heart rate82 /min Maria Fernanda Sharif DOUGH BRAKE MACHINE OPERATOR Work Phone: [phone] [place], [place] 2392009-24-2025 09:20-7588OrZ0% (BldA) [Mass fraction]98 %Maria Fernanda Sharif DOUGH BRAKE MACHINE OPERATOR Work Phone: [phone] [place], [place] 2392009-24-2025 09:20-0400Systolic blood sxelvxqu989 mm[Hg]Maria Fernanda Sharif DOUGH BRAKE MACHINE OPERATOR Work Phone: [phone] [place], [place] 2392007-21-2025 10:07-0400Body ovfbpr507.88 cmSabiliomya Sharif DOUGH BRAKE MACHINE OPERATOR-C Work Phone: [phone] [place], [place] 6536007-21-2025 10:07-0400 Body mass index (BMI) [Ratio]51.5 kg/o3Umqadqdljuan Granados DOUGH BRAKE MACHINE OPERATOR-C Work Phone: [phone] [place], [place] 6536007-21-2025 10:07-0400 Body qsxsiv268.5 kgMaria Fernanda Sharif DOUGH BRAKE MACHINE OPERATOR-C Work Phone: [phone] [place], [place] 6536007-21-2025 10:07-0400 Diastolic blood plfbhirj90 mm[Hg]Maria Fernandaarlene Granados DOUGH BRAKE MACHINE OPERATOR-C Work Phone: [phone] [place], [place] 6536007-21-2025 10:07-0400 Heart rate81 /Han Granados DOUGH BRAKE MACHINE OPERATOR-C Work Phone: [phone] [place], [place] 6536007-21-2025 10:07-0400 Respiratory rate18 /Han Granados DOUGH BRAKE MACHINE OPERATOR-C Work Phone: [phone] [place], [place] 6536007-21-2025 10:07-0400 SaO2% (BldA) [Mass fraction]96 %Maria Fernandaarlene Granados DOUGH BRAKE MACHINE OPERATOR-C Work Phone: [phone] [place], [place] 6536007-21-2025 10:07-0400 Systolic blood nhtniqcu921 mm[Hg]Maria Fernanda Granados DOUGH BRAKE MACHINE OPERATOR-C Work Phone: [facility]06-12-2025 09:51-0400 Body mass index (BMI) [Ratio]51.08 kg/w8DotvmuklMaria Fernanda Granados DOUGH BRAKE MACHINE OPERATOR Work Phone: [phone] CenterYmueksxjpd58-28-5009 09:51-0400Body .47 kgSajuan Granados DOUGH BRAKE MACHINE OPERATOR Work Phone: [phone]06-12-2025 09:51-0400Diastolic blood wqevyaet32 mm[Hg]Maria Fernanda Granados DOUGH BRAKE MACHINE OPERATOR Work Phone: [phone]06-12-2025 09:51-0400Heart rate76 /min Maria Fernanda Granados DOUGH BRAKE MACHINE OPERATOR Work Phone: [phone]52[facility] CenterMehpaoozdb31-40-9681 09:51-0400Systolic blood mm[Hg]Maria Fernanda Granados DOUGH BRAKE MACHINE OPERATOR Work Phone: [phone]60[facility] CenterSigfsblrpp88-59-9951 09:08-0400Diastolic blood zvysdsjp36 mm[Hg][facility]04-14-2025 09:08-0400Systolic blood pveixldd763 mm[Hg][facility]04-14-2025 09:07-0400 Body xboeqe433.88 cmC[facility]04-14-2025 09:07-0400Body mass index (BMI) [Ratio]50.5 kg/m4CdnxobfpzC[facility] Clinic [facility]04-14-2025 09:07-0400Body kgC[facility]04-14-2025 09:07-0400Heart rate87 /[facility]04-14-2025 09:07-0400Respiratory rate18 /[facility]04-14-2025 09:07-6301OgN0% (BldA) [Mass fraction]97 %[facility] 07-19-2024 09:57-0400Diastolic blood ptmmytfx95 mm[Hg]Blossom Cody DOUGH BRAKE MACHINE OPERATOR Work Phone: [phone] CenterPbomvumqrl20-17-8407 09:57-0400Systolic blood bdlkiszt805 mm[Hg]Blossom Cody DOUGH BRAKE MACHINE OPERATOR Work Phone: [facility] CenterEujacbvwef26-90-6529 09:22-0400Body mass index (BMI) [Ratio]50.03 kg/a2YqqweeetnBlossom Cody DOUGH BRAKE MACHINE OPERATOR Work Phone: [facility] CenterDnhoqtmawz16-57-5514 09:22-0400Body .02 kgShiracarolamary Glo DOUGH BRAKE MACHINE OPERATOR Work Phone: Research [facility] CenterQqonycanqn80-98-2120 09:22-0400Heart rate80 /min Blossom Cody DOUGH BRAKE MACHINE OPERATOR Work Phone: [facility] CenterQbvxxqqkkz06-03-1700 14:55-0500Body dzilvl297.88 cmNatalie Hernandez MD Work Phone: [phone]02-05-2025 14:55-0500 Body mass index (BMI) [Ratio]48.8 kg/m2Natalie Hernandez MD Work Phone: [phone] [place], [place] 4216302-05-2025 14:55-0500 Body iizvesymzjx67.1 [degF]Natalie Hernandez MD Work Phone: [phone] [place], [place] 4216302-05-2025 14:55-0500 Body .29 kgNatalie Hernandez MD Work Phone: [phone] [place], [place] 4216302-05-2025 14:55-0500 Diastolic blood abvedgaw95 mm[Hg]Natalie Hernandez MD Work Phone: [phone]02-05-2025 14:55-0500 Heart fxgq723 /minNatalie Hernandez MD Work Phone: [phone]02-05-2025 14:55-0500 Systolic blood mm[Hg]Natalie Hernandez MD Work Phone: [phone]12-11-2024 09:47-0500 Body mass index (BMI) [Ratio]52.21 kg/f6DwytuxthkBlossom Cody DOUGH BRAKE MACHINE OPERATOR Work Phone: [facility] CenterBdyqqsarwz42-45-0697 09:47-0500Body kuxclw756.19 kgBlossom Lozoyael DOUGH BRAKE MACHINE OPERATOR Work Phone: [facility] CenterRjqbxvtaee99-73-4589 09:47-0500Diastolic blood juhahheg66 mm[Hg]Blossom Glo DOUGH BRAKE MACHINE OPERATOR Work Phone: [phone] CenterWllwwylvbu77-89-3251 09:47-0500Heart rate84 /min Blossom Glo DOUGH BRAKE MACHINE OPERATOR Work Phone: [phone] CenterLevkqbvlsf33-00-7751 09:47-0500Systolic blood ovqxzsvq593 mm[Hg]Blossom Cody DOUGH BRAKE MACHINE OPERATOR Work Phone: [phone]23[facility] CenterIkvzmzqisb62-05-9016 09:59-0400Body luddvk020.88 [facility]20[facility] 09:59-0400Body mass index (BMI) [Ratio]51.2 kg/c2UoyimwwztC[facility] Clinic [facility]09-18-2024 09:59-0400Body vudtcv721.54 kgC[facility]09-18-2024 09:59-0400Diastolic blood mm[Hg][facility]09-18-2024 09:59-0400 Heart rate81 /[facility]09-18-2024 09:59-0400 Respiratory rate18 /[facility]09-18-2024 09:59-0400 SaO2% (BldA) [Mass fraction]94 %[facility]09-18-2024 09:59-0400Systolic blood tqtusjpi720 mm[Hg][facility] 01-19-2024 11:00-0400Body mass index (BMI) [Ratio]51.82 kg/n9Lefksrosa Glo DOUGH BRAKE MACHINE OPERATOR Work Phone: [phone] CenterLlllnaxrdp18-23-8986 11:00-0400Body dniscp299.91 kgShiradidier Cody DOUGH BRAKE MACHINE OPERATOR Work Phone: [phone] CenterDicihaohox13-20-4066 11:00-0400Diastolic blood mm[Hg]Blossom Glo DOUGH BRAKE MACHINE OPERATOR Work Phone: [phone] CenterAvpmzbcmnx70-40-7417 11:00-0400Heart rate84 /min Blossom Cody DOUGH BRAKE MACHINE OPERATOR Work Phone: [phone] CenterFxvdnidojb44-08-6370 11:00-0400Systolic blood rfffoqrf366 mm[Hg]Blossom Cody DOUGH BRAKE MACHINE OPERATOR Work Phone: [phone] CenterGqactrxdmk24-96-0834 11:31-0400Body .88 cmC[facility]06-11-2024 11:31-0400Body mass index (BMI) [Ratio]51.7 kg/o5KoaaaubhsCleveland Clinic [facility]crest Hospital06-11-2024 11:31-0400Body zleege826.87 kgC[facility]06-11-2024 11:31-0400Diastolic blood zwcvewrm95 mm[Hg][facility]06-11-2024 11:31-0400 Heart rate74 /[facility]06-11-2024 11:31-0400 Respiratory rate18 /[facility]06-11-2024 11:31-0400 SaO2% (BldA) [Mass fraction]97 %[facility]06-11-2024 11:31-0400Systolic blood ucjcpram599 mm[Hg][facility] 06-16-2023 11:33-0500Diastolic blood fzlkwsco15 mm[Hg]Blossom Cody DOUGH BRAKE MACHINE OPERATOR Work Phone: [phone] CenterPkjhlkzabu50-30-2408 11:33-0500Systolic blood tshydhki008 mm[Hg]Bolssom Cody DOUGH BRAKE MACHINE OPERATOR Work Phone: [phone] CenterMxmxyqpvem58-88-6328 11:02-0500Body mass index (BMI) [Ratio]52.12 kg/i4IumzpibmwBlossom Cody DOUGH BRAKE MACHINE OPERATOR Work Phone: [phone] CenterPqhdixskuj13-08-1909 11:02-0500Body .91 kgBlossom Cody DOUGH BRAKE MACHINE OPERATOR Work Phone: [phone] CenterTczuolzpbx52-49-7949 11:02-0500Heart rate92 /min Blossom Cody DOUGH BRAKE MACHINE OPERATOR Work Phone: [phone] CenterTxdnqodjby54-24-5439 08:45-0500Body heightTondra Mapus Other [employer] Other 01-31-2024 08:45-0500Body elwjjh157.88 cmMD Natalie Hernandez [employer] Phone: [facility]01-31-2024 08:45-0500 Body mass index (BMI) [Ratio]51.33 kg/l0Wlempi Mapus Other [facility] Other 01-31-2024 08:45-0500Body qtizzv713.69 kgTondra Mapus Other [facility] Other 01-31-2024 08:45-0500Body tnyast665.68 kgMD Natalie Hernandez [employer] Phone: [facility]01-31-2024 08:45-0500 Diastolic blood rcootqrq86 mm[Hg]Tondra Mapus Other [facility]01-31-2024 08:45-0500 Respiratory rate18 /minTondra Mapus Other [facility] [employer] Other 01-31-2024 08:45-8630ZhK4% (BldA) [Mass fraction]94 % Tondra Mapus Other [facility] Other 01-31-2024 08:45-0500Systolic blood vqwgymgf912 mm[Hg] Tondra Mapus Other [facility]08-28-2023 08:45-0400 Body heightTondra Mapus Other [facility] Other 08-28-2023 08:45-0400Body mass index (BMI) [Ratio] 51.37 kg/v2Slbfzj Mapus Other [employer] Other 08-28-2023 08:45-0400Body .82 kgTondra Mapus Other [employer] Other 08-28-2023 08:45-0400Diastolic blood yjzbxrdf02 mm[Hg] Tondra Mapus Other [employer] Other 08-28-2023 08:45-0400Respiratory rate18 /minTondra Mapus Other [employer] Other 08-28-2023 08:45-6841XxA3% (BldA) [Mass fraction]98 % Tondra Mapus Other [employer] Other 08-28-2023 08:45-0400Systolic blood mm[Hg] Tondra Mapus Other [employer] Other 02-16-2023 09:45-0500Body heightTondra Mapus Other [employer] Other 02-16-2023 09:45-0500Body mass index (BMI) [Ratio] 51.14 kg/o7Brckan Mapus Other [employer] Other 02-16-2023 09:45-0500Body splhew963.05 kgTondra Mapus Other [employer] Other 02-16-2023 09:45-0500Diastolic blood gqigycry33 mm[Hg] Tondra Mapus Other [employer] Other 02-16-2023 09:45-0500Respiratory rate18 /minTondra Mapus Other [employer] Other 02-16-2023 09:45-9930FkN2% (BldA) [Mass fraction]95 % Tondra Mapus Other [employer] Other 02-16-2023 09:45-0500Systolic blood hbncfega935 mm[Hg] Tondra Mapus Other [employer] Other 08-30-2022 09:45-0400Body heightTondra Mapus Other [employer] Other 08-30-2022 09:45-0400Body mass index (BMI) [Ratio] 48.28 kg/t0Lyvoym Mapus Other [employer] Other 08-30-2022 09:45-0400Body zjlzut467.48 kgTondra Mapus Other [employer] Other 08-30-2022 09:45-0400Diastolic blood mm[Hg] Tondra Mapus Other [employer] Other 08-30-2022 09:45-0400Respiratory rate20 /minTondra Mapus Other [employer] Other 08-30-2022 09:45-0348NqJ1% (BldA) [Mass fraction]95 % Tondra Mapus Other [employer] Other 08-30-2022 09:45-0400Systolic blood mm[Hg] Link Ortega Other [facility] [employer] Other Encounters Encounter DateEncounter TypeCare ProviderFacilityStart: 03-12-2025 End: 34-20-8299lgmfifkwozLketrlap Hoffman DOUGH BRAKE MACHINE OPERATOR-C Work Phone: [phone]-CXMIJlfjr: 03-12-2025 End: 70-36-7169Ltesjox encounter procedureLink Ortega GRADES [address] 8 TUTOR-C-[facility] Work Phone: Start: 03-08-2025 End: 87-89-4629LdwhqwTywril Stalter MD Work Phone: noms [facility] MedicineComment on above:Essential hypertensionStart: 01-31-2025 End: 03-77-5077Zpveui flowsVicky Granados NP Work Phone: NOM[facility] MedicineStart: 01-31-2025 End: 86-00-8658Iecvkr flowsVicky Granados NP Work Phone: noms [facility] MedicineStart: 42-95-5558Owq- patient / Non-visitLink Ortega GRADES [address] 8 TUTOR-C-[facility] [employer] Work Phone: Start: 01-31-2025 End: 92-33-8360Pvyppij encounter statusMaria Fernanda Granados NP Work Phone: [facility] HealthcareStart: 01-31-2025 End: 18-68-0036Ioiacnvs preventive med est patient 40-64yrsSsandra Granados NP Work Phone: [facility] MedicineComment on above:Wellness examination (Primary Dx); Type 2 diabetes mellitus [...] B 12 deficiency; Poorly controlled diabetes mellitus (HCC)Start: 01-31-2025 End: 49-21-0476ktxkyuzramNEBRONKE J HOFFMANNot AvailableStart: 11-27-2024 End: 61-28-9475vmmjnohkwaXqlowzls Hoffman DOUGH BRAKE MACHINE OPERATOR-C Work Phone: [facility] Work Phone: Start: 11-27-2024 End: 43-31-9336Dlggagt encounter procedureLink Dee Shannon GRAD[address] 8 TUTOR-C-[facility] Work Phone: Start: 10-19-2024 End: 45-77-5932Dokqeb flowsVicky Granados NP Work Phone: noms [facility] FMStart: 10-19-2024 End: 83-25-7409Xkjkbt Kylah Granados NP Work Phone: noms [facility] FMStart: 10-19-2024 End: 51-61-3254Hjvoiq outpatient visit 15 minutesSajuan Granados NP Work Phone: noms [facility]NR FMComment on above: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); Essential hypertension; 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, sequela (HHS-HCC); Amputation of toe, traumatic, left, sequela (HHS-HCC); Morbid obesity (CMS-HCC); HypertriglyceridemiaStart: 10-19-2024 End: 45-87-6080attuuzjpyvFXLDITBY J HOFFMANNot AvailableStart: 08-21-2024 End: 60-97-3298glhumhqaevVrsuazbzvDunlap Memorial Hospital Work Phone: Start: 08-21-2024 End: 41-98-0096Wuisqbu encounter procedureFrye [facility] Physician GroupHACK[facility] Work Phone: Start: 07-19-2024 End: 92-93-5578Dfjaeb outpatient visit 25 minutesElididier Cody NP Work Phone: [facility] FNR FMComment on above:Diabetic polyneuropathy associated with type 2 diabetes mellitus [...] B 12 deficiency; Depressed mood; Insomnia, unspecified typeStart: 07-19-2024 End: 60-60-3316drcfuuridnIYHODWVUX A GABELNot AvailableStart: 06-14-2024 End: 86-03-4555ilucdrrkrfXrqw Wonderly MD Work Phone: [facility] Work Phone: Start: 06-14-2024 End: 63-16-2613Pfqgndt encounter procedureNatalie Hernandez MD Work Phone: [facility] Work Phone: Start: 61-32-6561Qpg-patient / Non-visitFrye Regional Medical Center Physician GroupC[facility] Work Phone: Start: 05-30-2024 End: 27-24-5521Ztpmqbbpo Result EncounterGeneric External Data ProviderNOMS External Department UnsolicitedStart: 05-30-2024 End: 03-13-2662Gbnnipgfy Result EncounterGeneric External Data ProviderNOMS External Department UnsolicitedStart: 05-26-2024 End: 46-44-6998Hxrlcllvw Result EncounterGeneric External Data ProviderNOMS External Department UnsolicitedStart: 05-26-2024 End: 33-27-3965Monrwelki Result EncounterGeneric External Data ProviderNOMS External Department UnsolicitedStart: 04-27-2024 End: 90-21-5770Bqxyaapww Result EncounterGeneric External Data ProviderNOMS External Department UnsolicitedStart: 04-27-2024 End: 44-90-4722Hjaokhkcz Result EncounterGeneric External Data ProviderNOMS External Department UnsolicitedStart: 04-26-2024 End: 81-04-6294Kagjgpxdf Result EncounterGeneric External Data ProviderNOMS External Department UnsolicitedStart: 04-26-2024 End: 94-41-3975Hjuvbmapw Result EncounterGeneric External Data ProviderNOMS External Department UnsolicitedStart: 04-26-2024 End: 00-07-3938xkoclqevmoYkta WonderlyFacility:[facility] Start: 04-26-2024 End: 10-78-7679Omeehvtt Montse Hernandez MD Work Phone: [facility] C[facility] HospStart: 04-25-2024 End: 65-62-3737Unrdfihez Result EncounterGeneric External Data ProviderNOMS External Department UnsolicitedStart: 04-25-2024 End: 56-01-8601Qxtyszkjk Result EncounterGeneric External Data ProviderNOMS External Department UnsolicitedStart: 04-19-2024 End: 60-72-6301Dcrrhx flowsLupe Cody DOUGH BRAKE MACHINE OPERATOR Work Phone: NOMS FNR FMStart: 04-19-2024 End: 91-44-0009Hhtzbx flowsLupe Cody DOUGH BRAKE MACHINE OPERATOR Work Phone: noMS FNR FMStart: 04-19-2024 End: 30-82-4154Ydtwjvk encounter statusBlossom Cody DOUGH BRAKE MACHINE OPERATOR Work Phone: NOMS HealthcareStart: 04-19-2024 End: 00-43-9756Wvkwldie preventive med est patient 40-64yrsElididier Cody NP Work Phone: noms FNR FMComment on above:Diabetic polyneuropathy associated with type 2 diabetes mellitus ([facility]/HCC) (Primary Dx); Wellness examination; Type 2 diabetes mellitus with neurological manifestation ([facility]/HCC); Essential hypertension; 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, subsequent encounter ([facility]); Dyslipidemia ([facility]/HCC); Hypertriglyceridemia ([facility]/HCC); Poorly controlled diabetes mellitus ([facility]/HCC); Type 2 diabetes mellitus with hyperglycemia, with long-term current use of insulin ([facility]/HCC); Amputation of toe, traumatic, left, sequela ([facility]/HCC); Essential hypertension; Diabetic autonomic neuropathy associated with type 2 diabetes mellitus ([facility]/HCC); Acquired hallux valgus, unspecified laterality; Morbid obesity ([facility]); Vitamin B 12 deficiency; 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[facility]/HCC)Start: 04-19-2024 End: 28-89-0592mbnbleklveSSKVEIFOP A GABELNot AvailableStart: 02-28-2024 End: 26-15-6233VouzfwNcjpBrooke Hernandez MD Work Phone: noms FNR FMComment on above:Pure hyperglyceridemia ([facility])Start: 01-26-2024 End: 10-87-0295kgnzkbawyaIzzbvaeiaVeterans Health Administration Work Phone: Start: 01-26-2024 End: 21-16-7272Qvzouqc encounter procedureFrye Regional Medical Center Physician Group-[facility] Work Phone: Start: 32-47-3731Mwr-patient / Non-visitFrye Regional Medical Center Physician [facility] [employer] Work Phone: Start: 01-19-2024 End: 21-33-6143Ecwxcm flowsheetBlossom Cody DOUGH BRAKE MACHINE OPERATOR Work Phone: noms FNR FMStart: 01-19-2024 End: 44-63-3977Einodu Tanvi Cody NP Work Phone: noms FNR FMStart: 01-19-2024 End: 16-59-0871Wzaelz outpatient visit 25 minutesBlossom Lozoyael DOUGH BRAKE MACHINE OPERATOR Work Phone: NOMS FNR FMComment on above:Diabetic polyneuropathy associated with type 2 diabetes mellitus (CMS/HCC) (Primary Dx); 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); Essential hypertension; 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, subsequent encounter ([facility]); Type 2 diabetes mellitus with hyperglycemia, with long-term current use of insulin ([facility]/HCC); Dyslipidemia (CMS/HCC); Hypertriglyceridemia (CMS/HCC); Amputation of toe, traumatic, left, sequela (CMS/HCC); Vitamin B 12 deficiency; Pure hyperglyceridemia (CMS/HCC)Start: 12-30-2023 End: 22-35-3016YftdfgFhxgBrooke Hernandez MD Work Phone: noms FNR FMComment on above:Essential hypertension Start: 11-02-2023 End: 38-10-9999Eqeyimrkx Result EncounterGeneric External Data ProviderNOMS External Department UnsolicitedStart: 11-02-2023 End: 25-52-5868Gxckusczz Result EncounterGeneric External Data ProviderNOMS External Department UnsolicitedStart: 10-19-2023 End: 28-94-0133opzwhdkovhFmhcdeihgVeterans Health Administration Work Phone: Start: 10-19-2023 End: 00-78-7129Madgcbe encounter [facility] GroupH[facility] Work Phone: Start: 57-53-1101Kecwts flowsheetBlossom Cody NP Work Phone: NOMS FNR FMStart: 78-20-5109Qjwqeq flowsheetBlossom Cody NP Work Phone: noMS FNR FMStart: 06-16-2023 End: 85-07-0848Jcedlh outpatient visit 25 minutesElizamary Cody NP Work Phone: NOMS FNR FMComment on above:Diabetic polyneuropathy associated with type 2 diabetes mellitus (CMS/HCC) (Primary Dx); Diabetic neuropathic arthropathy (CMS/HCC); 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); 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, sequela (CMS/[facility]); Ulcer of foot due to type 2 diabetes mellitus ([facility]); Vitamin B 12 deficiency; Hx of diabetic neuropathy; 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CMS/HCC); Hypertriglyceridemia (CMS/HCC); 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, 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); Essential hypertension; Nasal congestion; Type 2 diabetes mellitus with diabetic autonomic neuropathy, with long-term current use of insulin (CMS/HCC); 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.4); Acquired absence of other toe(s), unspecified side (Z89.429); Type 2 diabetes mellitus with diabetic neuropathy, with long-term current use of insulin ([facility]); Body mass index [BMI] 50.0-59.9, adult (Z68.43); Type 2 diabetes mellitus with foot ulcer, with long-term current use of insulin ([facility]); 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.49); Status post amputation of lesser toe, unspecified laterality ([facility]); Arthritis of left foot; Acquired hallux valgus of left foot; Type 2 diabetes mellitus with hyperglycemia, with long-term current use of insulin ([facility]); Morbid obesity ([facility])Start: 06-15-2023 End: 08-15-4894pgsfyczrdwTuiiyz Mapus Other [employer] Other Start: 28-50-9414Pcyxsmzbu encounterTondra [facility] ClinicStart: 06-09-2023(DM) DiabetesTondra [facility] ClinicStart: 06-09-2023 End: 99-76-0226Ttjnllkfzr RecurringMD Natalie Hernandez Work Phone: [facility] Work Phone: Start: 06-09-2023 End: 45-93-7099rujujjqryfDY Natalie Hernandez Work Phone: [employer] Other Start: 06-09-2023 End: 64-88-3413Efmaewk encounter procedureMD Natalie Hernandez Work Phone: [facility]-Start: 04-28-2023 End: 39-82-7957Pjbaemymx Result EncounterGeneric External Data ProviderNOMS External Department UnsolicitedStart: 04-28-2023 End: 06-20-2934Jlonsrgfr Result EncounterGeneric External Data ProviderNOMS External Department UnsolicitedStart: 01-04-2023(DM) DiabetesTondra [facility] ClinicStart: 01-04-2023 End: 25-10-9774twocgravsfYgwigw Mapus Other [employer] Other Start: 12-21-2022 End: 77-77-9246bssawdxnedLlhqzi Mapus Other [employer] Other Start: 83-79-1927Qjstlpcey encounterTondra Shannon [facility] ClinicStart: 65-10-8115ypvjttulzsKBGYS D [facility] Facility:G0Egyea: 10-06-2022 End: 07-09-2566ruhybobedeNOHBO D [facility]OOFacility:F1Jwruu: 99-12-0191Ykglhjmrd for preprocedural cardiovascular examinationPETER D [facility] Hospitaltart: 72-15-8916Rufmnjpmj for preprocedural laboratory examinationPETER D [facility] Hospitaltart: 09-30-2022 End: 05-05-4657pwtbousheaYHGXN D [facility]OOFacility:A2Yzyde: 09-30-2022 End: 31-68-7499Ojhawnpqw for preprocedural laboratory examinationPETER D [facility]OOFacility:U3Wtkvm: 09-15-2022 End: 19-63-1336axmilvspkwRBAWY D [facility]OOFacility:D7Oqwbw: 09-10-2022 End: 83-26-3592evgfhxiqriUjfpcb [employer] Other [employer] Other Start: 41-93-6044Dfzrrmfhp encounterTondra Shannon [facility] ClinicStart: 08-24-2022 End: 49-33-1532uxjfdhjmliDMTHQ D HIGHLANDERFacility:B0Azibq: 08-10-2022 End: 36-12-2887iouixiwpizEgtmwz [employer] Other [employer] Other Start: 49-91-2633Rrtebrmhg encounterTondrlibra Ortega [facility] Care ClinicStart: 08-03-2022 End: 07-38-6752fuphusxfnfJL NATALIE B WONDERLYFacility:W7Uulkl: 07-13-2022 End: 21-12-2015owzhniunwmYMPTIEXZ CULLENFacility:L4Myleb: 06-30-2022 End: 09-22-8799ycylkvhxoaNHQMF D HIGHLANDERFacility:D1Lcwds: 06-25-2022(DM) DiabetesTondra ShannonFirstar junctions Coordinated Care ClinicStart: 06-25-2022 End: 19-00-6373ynshrjqbqkVxxaat [employer] Other [employer] Other Start: 06-16-2022 End: 87-76-5238enahzyzspwXFCJL D HIGHLANDERFacility:U5Gnttt: 06-08-2022 End: 34-71-5209jifsxzlepyNKEYN D HIGHLANDERFacility:U3Zrqnr: 05-25-2022 End: 73-46-5421jhybwwncysOODKQ D HIGHLANDERFacility:S1Jbfsd: 05-12-2022 End: 67-03-2990qdnqvdmuxyMKHQK D HIGHLANDERFacility:M5Uaiyt: 04-30-2022 End: 69-99-5107qtsudscrhbQUMNU D HIGHLANDERFacility:J6Lqgbw: 04-24-2022 End: 33-28-8950zgdlmpjbubCTNEF D HIGHLANDERFacility:W9Mfram: 04-17-2022 End: 02-41-9593hlxxhmzuvyNOAHC D HIGHLANDERFacility:F1Mddje: 04-08-2022 End: 87-71-9710uwnyavldhbQUIFX D HIGHLANDERFacility:V6Osjld: 03-31-2022 End: 69-13-4907amgovtrcwgJNPUE D HIGHLANDERFacility:J7Fmdtk: 03-23-2022 End: 12-39-9121opitpebkiqPINTB D HIGHLANDERFacility:U8Beqvs: 03-16-2022 End: 46-97-7983gybivcfgtcPDHLH D HIGHLANDERFacility:Z6Qqcjq: 03-09-2022 End: 37-15-1601qvefqvcvbnIZLPI D HIGHLANDERFacility:Y5Iwcap: 03-03-2022 End: 91-93-9578tubtciykgxQDHRV D HIGHLANDERFacility:A5Uneqe: 02-18-2022 End: 01-90-6251lplkplgydoIghlsr [employer] Other [employer] Other Start: 71-04-4156Mebtzeymt encounterTondra Mapus [facility] Care ClinicStart: 02-09-2022 End: 76-12-9404eycpihorjeFHWMY D HIGHLANDERFacility:Z7Boflp: 01-26-2022 End: 86-73-6366zgydzyqrfpQTWHX D HIGHLANDERFacility:Q2Xjkkk: 01-13-2022 End: 95-62-3862vmuayfksvyEIRGQ D HIGHLANDERFacility:W5Jghvc: 01-06-2022(DM) DiabetesTondra DayannausFrye Regional Medical Center Coordinated Care ClinicStart: 01-06-2022 End: 27-59-9765thxrvgvpwhAuvclr [employer] Other [employer] Other Start: 12-29-2021 End: 67-96-8148zxsdrpsfmjYTGTP D HIGHLANDERFacility:I0Deorh: 12-22-2021 End: 45-53-5954xkpzsxqxyzSUUJG D HIGHLANDERFacility:T6Zzdib: 12-15-2021 End: 03-93-4048kjmjcdnisvBZKND D HIGHLANDERFacility:S8Gyrfx: 12-08-2021 End: 85-78-3439kuqirgjpvjHJOJW D HIGHLANDERFacility:H9Ojtzk: 12-01-2021 End: 58-87-5759vvpovabvgrGPTKU D HIGHLANDERFacility:D7Okmza: 11-24-2021 End: 96-16-2465qntnppkmdvVHUOB D HIGHLANDERFacility:R7Vylwv: 11-20-2021 End: 96-50-9786fvwcsmmdxvLETLU D HIGHLANDERFacility:C2Aoofk: 11-17-2021 End: 55-94-5760yaotmoasmdUNYSS D HIGHLANDERFacility:T7Vymch: 11-14-2021 End: 28-59-8554bkpdjpnkpbUCWDF D HIGHLANDERFacility:F3Erbss: 11-11-2021 End: 15-42-9971djvbdovtquNRKCP D HIGHLANDERFacility:Z7Zndzb: 11-06-2021 End: 60-26-4454odwaagebdlQLPXM D HIGHLANDERFacility:Y2Btlop: 11-03-2021 End: 26-79-7866hygjomihguQSHDY D HIGHLANDERFacility:M4Qfqda: 10-30-2021 End: 14-72-9040fjsdxryxveXPFXM D HIGHLANDERFacility:S0Sefmz: 10-27-2021 End: 53-80-2750xhifeqywlhJEJRS D HIGHLANDERFacility:Z4Sjbhm: 10-23-2021 End: 40-28-6033rhupeiglkkGLJHN D HIGHLANDERFacility:W6Wecwu: 10-21-2021 End: 67-03-0008tjrilcmsxvFHDDE D HIGHLANDERFacility:F0Xbhnz: 10-20-2021 End: 88-50-6998wyukzryrpxZAUNX D HIGHLANDERFacility:H1 Procedures DateProcedureProcedure DetailPerforming ClinicianStart: 55-14-2907BKMEY CULTURE 2Generic External Data ProviderStart: 96-72-7866KVWKKWT CULTUREGeneric External Data ProviderStart: 27-76-0463YPCWI CULTURE 2Generic External Data Provider Start: 76-22-2400FJYJJ CULTURE 1Generic External Data ProviderStart: 04-26-2024 ACID FAST CULTUREGeneric External Data ProviderStart: 97-59-8500UOEU FAST SMEAR Generic External Data ProviderStart: 84-77-9234PWZBYMR CULTUREGeneric External Data ProviderStart: 92-23-4133FXA SPECIMEN PROCESSINGGeneric External Data ProviderStart: 76-50-3165VZFFUYPMJ CULT, EXTENDED INCUBGeneric External Data ProviderStart: 87-39-5837CVHZVZNEG CULTUREGeneric External Data ProviderStart: 31-22-3960DRLOOX (MYCOLOGY) CULTUREGeneric External Data ProviderStart: 59-51-6526AQBMLM STAINGeneric External Data ProviderStart: 07-36-9784GEOW STAIN RESULTGeneric External Data ProviderStart: 25-78-2499DAMERG CULTUREGeneric External Data ProviderStart: 06-33-6696UM FOOT RT MIN 3VGeneric External Data ProviderStart: 39-02-5914TDPOD CULTURE 2Generic External Data ProviderStart: 65-45-4801VL FOOT RT MIN 3VGeneric External Data ProviderStart: 04-90-4622WA FOOT LT MIN 3VGeneric External Data ProviderAmputation of toeTondra Mapus Other History of amputation of lesser toeStatus post amputation of lesser toe, unspecified laterality ([facility]/HCC)Blossom Cody DOUGH BRAKE MACHINE OPERATOR Work Phone: Plan of Treatment DateCare ActivityDetailAuthorStart: 74-58-4230Tcuzaret screeningDiabetes: Retinopathy ScreeningNOMS HealthcareStart: 49-00-2815Ybgyxtrqg for malignant neoplasm of colonColorectal Cancer ScreeningNOMS HealthcareComment on above: Postponed from 1979 (Patient Refused)Start: 43-27-2625Jtugvgxfj vaccinationInfluenza Vaccine (#1)NOMS HealthcareComment on above:Postponed from 01/08/2025 (Patient Refused)Start: 57-22-3150Zztcjrqg screeningDiabetes: Retinopathy ScreeningNOMS HealthcareStart: 04-24-2025 End: 41-78-3943Gxxsikf encounter bsnraslpt90/16/2025 9:30 AM EST Office Visit [facility] [address] [place] [phone] Maria Fernanda Granados NP [address] [facility] [place] [address] [facility] MedicineStart: 01-31-2025 End: 93-73-2537Ldvfhibfspvg/Creatinine panel in random UrineMicroalbumin / creatinine, urine ratio Lab Routine 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) Expected: 01/31/2025 (Approximate), Expires: 01/31/2026[facility] Work Phone: Comment on above:Expected: 01/31/2025 (Approximate), Expires: 01/31/2026Start: 01-31-2025 End: 78-67-3127Mfdynoe encounter procedureNOMS FNR FMComment on above:Arrived Start: 63-71-0179WPEYJ-19 Vaccine ( season)COVID-19 Vaccine ()[facility] HealthcareStart: 57-20-4335Pnlttdwwv vaccinationInfluenza Vaccine (#1)[facility] HealthcareStart: 48-05-1585Vtmwilench A1c measurementDiabetes: Hemoglobin F8GAFML HealthcareStart: 10-19-2024 End: 91-02-6652Mhcxbpm encounter procedureNOMS FNR FMComment on above:Arrived Start: 07-19-2024 End: 42-87-8760Zqaegsu encounter qexledmde76/12/2025 9:30 AM EDT [facility] [address] [place] [phone] Blossom Cody NP [address] [place] [address] [facility] FMStart: 61-20-1905Gsafvgyqmh A1c measurementDiabetes: Hemoglobin A1C [facility] HealthcareStart: 04-19-2024 End: 09-05-9521Puidaxt encounter procedureNOMS FNR FMComment on above:Diabetic polyneuropathy associated with type 2 diabetes mellitus (CMS/HCC) (Primary Dx); Wellness examination; 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); Essential hypertension; 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, subsequent encounter ([facility]/HCC); Dyslipidemia (CMS/HCC); Hypertriglyceridemia (CMS/HCC); Poorly controlled diabetes mellitus (CMS/HCC); Type 2 diabetes mellitus with hyperglycemia, with long-term current use of insulin (CMS/HCC); Amputation of toe, traumatic, left, sequela (CMS/HCC)Start: 91-90-3984Dcmlq screening for proteinDiabetes: Urine Protein ScreeningNOMS HealthcareStart: 30-46-9203Pswwjmzpe vaccinationInfluenza Vaccine (#1)NOMS HealthcareComment on above:Postponed from 01/09/2024 (Patient Refused)Start: 01-25-2024 End: 64-70-8719Jkrdead encounter xjpsqpvia54/17/2024 10:30 AM EDT Office Visit [facility] [address] [place] [phone] Blossom Cody NP [address] [place] [address] [facility] R FMStart: 22-37-6649Dbgusdpain A1c measurementDiabetes: Hemoglobin A1C [facility] HealthcareStart: 01-19-2024 End: 08-67-7883Cuvgbdf encounter bmnjhyjvk72/11/2024 11:00 AM EDT Office Visit [facility] [address] [place] [phone] Blossom Cody NP [address] [place] [address] Diabetic polyneuropathy associated with type 2 diabetes mellitus ([facility]/HCC) (Primary Dx); 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); Essential hypertension; 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, subsequent encounter ([facility]/HCC); Type 2 diabetes mellitus with hyperglycemia, wi th long-term current use of insulin (CMS/HCC); Dyslipidemia (CMS/HCC); Hypertriglyceridemia (CMS/HCC); Amputation of toe, traumatic, left, sequela (CMS/HCC); Vitamin B 12 deficiencyNOHI FNR FMComment on above:Diabetic polyneuropathy associated with type 2 diabetes mellitus ([facility]/HCC) (Primary Dx); Type 2 diabetes mellitus with neurological manifestation ([facility]/HCC); Essential hypertension; 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, subsequent encounter ([facility]); Type 2 diabetes mellitus with hyperglycemia, with long-term current use of insulin ([facility]); Dyslipidemia ([facility]); Hypertriglyceridemia ([facility]); Amputation of toe, traumatic, left, sequela ([facility]); Vitamin B 12 deficiencyStart: 60-26-0951Zyuaxblpk vaccinationInfluenza Vaccine (#1)[facility] HealthcareStart: 98-01-5268VEuH/Tdap/Td Vaccines (3 - Tdap)DTaP/Tdap/Td Vaccines (3 - Tdap)NOM HealthcareStart: 09-15-2023 End: 79-64-2137Ikvlnns encounter qotfkrswg91/08/2024 9:30 AM EDT Office Visit [facility] [address] [place] [phone] Blossom Cody NP [address] [place] [address] [facility] R FMStart: 45-91-8777Tfzfwaajnw A1c measurementDiabetes: Hemoglobin A1C NOM HealthcareStart: 19-94-0357Tbxbemba screeningDiabetes: Retinopathy ScreeningNOHI HealthcareStart: 07-07-2023 End: 94-34-5857Ildketl encounter vjcqbumhv04/28/2024 9:00 AM EST Office Visit [facility] [address] [place] [phone] [facility] FMStart: 06-16-2023 End: 35-99-2471Esvgsoi encounter hwvmtbode95/07/2024 11:00 AM EST Office Visit [facility] [address] [place] [phone] Blossom Cody NP [address] [place] [address] Diabetic polyneuropathy associated with type 2 diabetes [...] 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CMS/HCC); Morbid obesity (CMS/HCC); Hypertriglyceridemia(CMS/HCC)[facility] FNR FMComment on above:Diabetic polyneuropathy associated with type 2 diabetes mellitus [...] deficiency disorder (CMS/HCC); Morbid obesity (CMS/HCC); Hypertriglyceridemia (CMS/HCC)Start: 75-06-2894YXB Vaccines (1 - 3-dose SCDM series)HPV Vaccines (1 - 3-dose SCDM series)[facility] HealthcareStart: 10-09-1998 Hepatitis B Vaccines (1 of 3 - 19+ 3-dose series)Hepatitis B Vaccines (1 of 3 - 19+ 3-dose series)[facility] HealthcareStart: 69-75-9410Bziwbucrtrnp Vaccine: Pediatrics (0 to 5 Years) and At-Risk Patients (6 to 64 Years) (1 of 2 - PCV) Pneumococcal Vaccine: Pediatrics (0 to 5 Years) and At-Risk Patients (6 to 64 Years) (1 of 2 - PCV)[facility] HealthcareStart: 88-57-6809UWN Vaccines (1 of 1 - Standard series)MMR Vaccines (1 of 1 - Standard series)[facility] HealthcareStart: 39-02-1777Xuvqvjqbs for malignant neoplasm of colonNOMS HealthcareAEROBIC CULTUREAEROBIC CULTURE Lab Routine 05/26/2024 6:16 PM ESTNOMS HealthcareBLOOD CULTURE 1BLOOD CULTURE 1 Lab Routine 04/27/2024 6:10 AM ESTNOHI HealthcareBLOOD CULTURE 2BLOOD CULTURE 2 Lab Routine 04/25/2024 1:00 PM ESTNOHI HealthcareBLOOD CULTURE 2BLOOD CULTURE 2 Lab Routine 04/27/2024 6:24 AM ESTNOHI HealthcareBLOOD CULTURE 2BLOOD CULTURE 2 Lab Routine 05/30/2024 12:28 PM [facility] Comprehensive metabolic 1999 panel - Serum or PlasmaCleveland Clinic Hillcrest HospitalComprehensive metabolic 1999 panel - Serum or [facility] CenterPatient [facility] Work Phone: [facility] Immunizations Immunization DateImmunizationNotesCare OgeqkeuaWqduocld76-76-4180deuktcyti, seasonal, injectable, preservative freeTanyabejaja Glo DOUGH BRAKE MACHINE OPERATOR Work Phone: [facility] CenterPzcjfylaiu05-04-1524poitrwgxx virus vaccine, unspecified formulationElizabejaja Cody DOUGH BRAKE MACHINE OPERATOR Work Phone: [facility] CenterYykessnakm73-84-5858ajnpdrz and diphtheria toxoids, adsorbed, preservative free, for adult use (2 Lf of tetanus toxoid and 2 Lf of diphtheria toxoid)Natalie Hernandez MD Work Phone: [facility] CenterMttmmrdxoi42-66-1273kxqzigart, injectable, quadrivalent, preservative freeBlossom Glo DOUGH BRAKE MACHINE OPERATOR Work Phone: [facility] CenterCxwripykwt49-81-2262vzntqtikd virus vaccine, unspecified formulationNatalie Hernandez MD Work Phone: [facility] CenterNsbhwnvlzw92-44-8752xzignhh and diphtheria toxoids, adsorbed, preservative free, for adult use (5 Lf of tetanus toxoid and 2 Lf of diphtheria toxoid)Blossom Cody DOUGH BRAKE MACHINE OPERATOR Work Phone: [facility] CenterCndfucqutc28-34-8534jltknvmwt, injectable, quadrivalent, preservative freeTanyabejaja Glo DOUGH BRAKE MACHINE OPERATOR Work Phone: [facility] CenterPlfyvxswpq61-05-9336Hvrotypwc, injectable, Madin Nel Canine Kidney, preservative free, quadrivalentElizabeth Glo DOUGH BRAKE MACHINE OPERATOR Work Phone: [facility] CenterTtsayposbr81-42-3806phbvrkutj, injectable, quadrivalent, preservative freeElizabeth Glo DOUGH BRAKE MACHINE OPERATOR Work Phone: noMercy [facility]une-Brooks HospitalIuknydsfks12-52-1945nchpiyiuk, injectable, quadrivalent, preservative freeElizabeth Glo DOUGH BRAKE MACHINE OPERATOR Work Phone: [facility] Payers DatePayer CategoryPayerPolicy [id number] Health Insurance [id number] [id number]-dpq [id number] 2.840.1.173725.3.57[id number] 2.840.1.801751.3.57[id number] 2.840.1.306621.3.57[id number] 2.16840.1.785112.3.579.2.50298-31-6465Ahoxbnq1606129 2.16.840.1.917624.3.579.[id number] 2.16.840.1.858186.3.57[id number] 2.16.840.1.122483.3.57[id number] 2.16.840.1.096950.3.579.[id number] 2.16.840.1.643421.3.579.2.86043-61-4049Etzvkhz7076396 2.16.840.1.563529.3.579.2.15181-57-9622Xmbllmp7820839 2.16.840.1.051279.3.579.2.07380-56-6250Qqcfmfq6204001 2.16.840.1.900259.3.579.2.10099-57-5246Wcvmlef3484814 2.16840.1.411576.3.579.2.80655-52-6743Vxeuapp1208809 2.16840.1.622189.3.579.2.92657-63-7618Esbgjlg5514222 2.16840.1.562839.3.579.2.13815-53-3912Wcomzmp7871810 2.16840.1.522137.3.579.2.18128-77-1445Togqpqi5673243 2.840.1.447299.3.579.2.70561-04-3733Jmxtxwf2929498 2.16840.1.029698.3.579.2.62757-22-8280Stycipv1006782 2.16840.1.181017.3.579.2.01675-57-6872Hsmftur0705594 2.16.840.1.699826.3.579.2.00416-98-8979Obbhvuo5506931 2.16840.1.057303.3.579.2.85033-16-6782Ocaaspj4975928 2.16840.1.254383.3.579.2.38167-98-6328Yggmydf9583881 2.16840.1.356151.3.579.2.38398-85-7787Azskkdp8876069 2.840.1.216826.3.579.2.61974-79-3902Hwgvkwx6631071 2.16840.1.339377.3.579.2.13555-53-9318Zprdpkf7248966 2.840.1.978845.3.579.2.83708-59-2710Yfvlode9848625 2.840.1.213499.3.579.2.65708-69-4299Jozjvol2070952 2.840.1.016810.3.579.2.43002-38-5675Jqglkbs2342069 2.840.1.431209.3.579.2.77406-55-5901Vtfxrsi9076221 2.0.1.470042.3.579.2.03639-13-6422Nqfbqfd9285856 2.0.1.569581.3.579.2.89919-64-5423Vijqzzc4804952 2.0.1.931506.3.579.2.58642-24-8700Duqehlp2005943 2.0.1.114603.3.579.2.70384-84-9497Zxeijvh1440969 2.0.1.828407.3.579.2.34587-25-9869Wmdvmyv3254864 2.840.1.372924.3.579.2.65546-85-1258Qpxmycg3471461 2.0.1.338895.3.579.2.53928-33-7818Arwnumk1266667 2.840.1.536130.3.579.2.91336-41-2761Qzqnwzg3150647 2.840.1.015790.3.579.2.39024-23-6699Juprstv9793729 2.16.840.1.093002.3.579.2.02811-41-2290Aljvzbs5659941 2.16.840.1.998960.3.579.2.68260-73-4995Denshaa6710940 2.16.840.1.547196.3.579.2.44113-73-7461Fkubcww99980351 2.16.840.1.296720.3.579.2.511383-76-1160Zkxltdc93198287 2.16.840.1.922377.3.579.2.591664-81-1853Yogdjva7684144 2.16.840.1.023075.3.579.2.352401-19-5931Jmtwiap5380465 2.16.840.1.006652.3.579.2.778342-30-0805Iqzlewc415145831 2.16.840.1.159444.19 28-72-2380Djkmlhi28800942 2.16.840.1.534995.98Hyucyrx32756098 2.16.840.1.413423.3.579.2.453Wmagpil79432500 2.16.840.1.846237.3.579.2.531 Social History DateTypeDetailFacilityUnknown if ever smokedNolafayette regional health center PatientKeeper Other Start: 03-23-2023 End: 56-90-2523Xac Assigned At BirthNOHI HealthcareStart: 83-96-3433Sjpjklr smoking status NHISNever smoked tobaccoNOHI HealthcareStart: 06-07-6299Taobksv use and exposureSmokeless tobacco non-userNOMS HealthcareStart: 05-18-2023 End: 10-11-7453Ikruuyr intakeCurrent drinker of alcohol (finding)[facility] Start: 03-23-2023 End: 86-66-9420Sihmgjm intakeNOHI HealthcareStart: 49-52-1659Qdkyks the last year, have you been afraid of your partner or ex-partner?Patient refusedNOHI HealthcareAre you now , , , , never or living with a partner?RefusedNOHI Healthcare(I/We) worried whether (my/our) food would run out before (I/we) got money to buy more.DK or RefusedN[facility]S Healthcare Start: 76-99-4199Jmg Assigned At BirthNot on fileNOHI HealthcareStart: 91-75-6581Gyw Assigned At BirthMalSouthwest General Health Centertart: 10-19-2023 End: 50-95-2305Ydjrhnc smoking status NHISEx-smoker (finding)[facility], Inctart: 06-14-2024 End: 16-34-8579PukEotj (finding)[facility] HospitalHow often to you have a drink containing alcohol?2-3 time sa weekNOHI HealthcareHow many standard drinks containing alcohol do you have on a typical day?1 or 2NOMS HealthcareHow often do you have 6 or more drinks on 1 occasion?NeverNOHI HealthcareStart: 81-61-9725Jruipzu Commentcaffeine: 2-3 cups dailyNOHI Healthcare Medical Equipment Procedure CodeEquipment CodeEquipment Original TextEquipment IdentifierDates Start: 27-12-1538Aujstlj Syringe-Needle U-100 (Bd Insulin Syringe Ultra-Fine) 1 mL 31 gauge x 5/16 syringeStart: 03-19-8127xceej sugar diagnostic (OneTouch Verio test strips)Start: 47-35-7082Ledlovg Syringe-Needle U-100 (Bd Insulin Syringe Ultra-Fine) 1 mL 31 gauge x 5/16 syringeStart: 83-83-3300zpcsk sugar diagnostic (OneTouch Verio test strips)Start: 45-77-9683Tojlf Sugar Diagnostic (Onetouch Verio Test Strips) stripStart: 38-38-6807Esskcqc Syringe-Needle U-100 (Bd Insulin Syringe Ultra-Fine) 1 mL 31 gauge x 5/16 syringeStart: 06-23-2023 blood sugar diagnostic (OneTouch Verio test strips)Start: 61-05-9733Qftlt Sugar Diagnostic (Onetouch Verio Test Strips) stripStart: 13-95-6115Ytknzpr Syringe- Needle U-100 (Bd Insulin Syringe Ultra-Fine) 1 mL 31 gauge x 5/16 syringeStart: 70-71-5948Zdiui Sugar Diagnostic (Onetouch Verio Test Strips) stripStart: 16-06-3487Gbxdghs Syringe-Needle U-100 1 mL 31 gauge x 5/16 syringeStart: 53-50-5919Csh Needle, Diabetic 32 gauge x 5/32 needleStart: 18-93-1210jrsso sugar diagnostic (OneTouch Verio test strips)Start: 10-19-2023 End: 12-37-9406Mqxnlog Syringe-Needle U-100 (Bd Insulin Syringe Ultra-Fine) 1 mL 31 gauge x 5/16 syringeStart: 06-23-2023 End: 91-67-6232Vgrub Sugar Diagnostic (Onetouch Verio Test Strips) stripStart: 06-49-8549Bwnoyhg Syringe-Needle U-100 1 mL 31 gauge x 5/16 syringeStart: 42-60-8479nyvrx sugar diagnostic (OneTouch Verio test strips)Start: 10-19-2023 End: 31-25-6737Actawyk Syringe-Needle U-100 (Bd Insulin Syringe Ultra-Fine) 1 mL 31 gauge x 5/16 syringeStart: 06-23-2023 End: 72-60-3727Fmc Needle, Diabetic 32 gauge x 5/32 needleStart: 08-21-2024 End: 43-14-4496Jmv Needle, Diabetic 32 gauge x 5/32 needleStart: 08-21-2024 End: 50-01-1312Uxrvi Sugar Diagnostic (Onetouch Verio Test Strips) stripStart: 27-42-2205Ujbffas Syringe-Needle U-100 1 mL 31 gauge x 5/16 syringeStart: 69-91-3797Ztw Needle, Diabetic 32 gauge x 5/32 needleStart: 10-81-2243hkjkj sugar diagnostic (OneTouch Verio test strips)Start: 10-19-2023 End: 64-10-0055Abnwrdx Syringe-Needle U-100 (Bd Insulin Syringe Ultra-Fine) 1 mL 31 gauge x 5/16 syringeStart: 06-23-2023 End: 29-21-5380Nqj Needle, Diabetic 32 gauge x 5/32 needleStart: 08-21-2024 End: 27-42-9839Bru Needle, Diabetic 32 gauge x 5/32 needleStart: 08-21-2024 End: 11-27-2024 Goals DatePatient GoalDesired Activity/StatePersonal health goal Functional Status IeecLtnmqbejvhPzrdruLozjlmmi49-15-5657Tsxxw score [AUDIT-C]3 01/31/2025 9:27 AM EDT [facility] 05-10-2020 to 01-31-2025 Note Date & WlivRqntAillcvvz55-11-0875 History of Present illness Narrative* Nohemi Castrejon MA - 01/31/2025 9:30 AM EDT Needs refill on trazodone * Maria Fernanda Granados NP - 01/31/2025 9:30 AM EDT Images from the original note were not included. Trev Ontiveros is a 44 y.o. male presents with chief complaint of Diabetes (/) HPI: HPI History of Present Illness The patient is a 44-year-old male who presents for his wellness exam. He is under the care of an restaurant operations manager, Dr. Link Iverson, with whom he has [...] current medication regimen includes Victoza, metformin, and long- acting insulin (46 units twice daily). He also takes short-acting insulin with meals. He was previously on Farxiga but discontinued it due to cost. He is under the care of a machined parts quality inspector and reports no foot-related issues. He has [...] seeing any other specialists besides us, his machined parts quality inspector, and endo. He is considering colon cancer [...] Medical History: Diagnosis Date BMI 40.0-44.9, adult ([facility]) BMI 45.0-49.9, adult ([facility]) Constipation COVID-19 DM (diabetes mellitus) ([facility]) Dyslipidemia History of being hospitalized 03/2018 Uncontrolled diabetes, infection History of COVID-19 05/13/2020 Non-pressure chronic ulcer of other part of unspecified foot with unspecified severity ([facility]) 10/02/2022 Osteomyelitis of great toe of right foot ([facility]) 10/02/2022 Osteomyelitis of right foot ([facility]) 10/02/2022 Pressure ulcer of other site, stage 2 ([facility]) 10/02/2022 Ulcer of foot due to type 2 diabetes mellitus ([facility]) 10/02/2022 Ulcerated, foot, left, limited to breakdown of skin ([facility]) 10/02/2022 Past Surgical History: Procedure Laterality Date AMPUTATION FOOT / TOE Right 03/2018 2nd toe AMPUTATION FOOT / TOE Right 01/10/2021 [facility] - Dr. Moore AMPUTATION FOOT / TOE Left 05/17/2023 4th toe - Dr. Feldman CHEILECTOMY Left 02/14/2020 [facility] CHEILECTOMY Left 09/15/2018 1st Metatarsal FOOT [...] Friends and Family: Twice a week Attends Zoroastrianism Services: More than 4 times per year [...] He is obese. He is not ill-appearing, toxic- appearing or diaphoretic. HENT: Right Ear: Tympanic membrane, [...] ([facility]) Amputation of toe, traumatic, left, sequela ([facility]) Arthritis of left foot Morbid obesity ([facility]) Type 2 diabetes mellitus with hyperglycemia, with long-term current use of insulin ([facility]) Lipoprotein deficiency disorder Hypertriglyceridemia Dyslipidemia Vitamin B 12 deficiency Poorly controlled diabetes mellitus ([facility]) Assessment & Plan 1. Diabetes mellitus: - Blood sugar levels at home range from 120s to 160s-170s fasting, which is well-controlled. - He is currently on Victoza, metformin, and long-acting insulin 46 units twice a day. He also usesshort-acting insulin with meals. His last A1c in November was between 7.8 and 7.9. - No additional blood work is needed today as his restaurant operations manager has already ordered it. He will follow up with his restaurant operations manager in March for further management. - He [...] disease and discussed importance of routine exercise andhealthy diet. Recommended routine dental/eye exams. Discussed routine [...] 3 month follow up. documented in this encounterVicki Ville [id number] History of Present illness Narrative* Maria Fernanda Granados, DOUGH BRAKE MACHINE OPERATOR - 10/19/2024 10:00 AM EDT Images from the original note were not included. Trev Ontiveros is a 44 y.o. male presents with chief complaint of Follow-up (3 month DM) HPI: HPI History of Present Illness The patient is a 44-year-old male who presents to the office for follow-up today. He is under the care of an restaurant operations manager for his diabetes, with a scheduled appointment [...] necessitated surgical intervention and subsequent rehabilitation at [facility] due to his inability to bear weight on the foot. During his two-month stay at [facility], he contracted MRSA. He underwent physical therapy [...] He maintains regular annual check-ups with an cake puncher and dentist. He reports no gastrointestinal symptoms [...] Medical History: Diagnosis Date BMI 40.0-44.9, adult ([facility]) BMI 45.0-49.9, adult ([facility]) Constipation COVID-19 DM (diabetes mellitus) ([facility]) Dyslipidemia History of being hospitalized 03/2018 Uncontrolled diabetes, infection History of COVID-19 05/13/2020 Non-pressure chronic ulcer of other part of unspecified foot with unspecified severity ([facility]) 10/02/2022 Osteomyelitis of great toe of right foot ([facility]) 10/02/2022 Osteomyelitis of right foot ([facility]) 10/02/2022 Pressure ulcer of other site, stage 2 ([facility]) 10/02/2022 Ulcer of foot due to type 2 diabetes mellitus ([facility]) 10/02/2022 Ulcerated, foot, left, limited to breakdown of skin ([facility]) 10/02/2022 Past Surgical History: Procedure Laterality Date AMPUTATION FOOT / TOE Right 03/2018 2nd toe AMPUTATION FOOT / TOE Right 01/10/2021 [facility] - Dr. Moore AMPUTATION FOOT / TOE Left 05/17/2023 4th toe - Dr. Feldman CHEILECTOMY Left 02/14/2020 [facility] CHEILECTOMY Left 09/15/2018 1st Metatarsal FOOT [...] Friends and Family: Twice a week Attends Zoroastrianism Services: More than 4 times per year [...] toe, traumatic, left, sequela ([facility]) Morbid obesity ([facility]) Hypertriglyceridemia Assessment & Plan 1. Type 2 diabetes mellitus. He is currently under the care of an restaurant operations manager, with his most recent A1c level recorded [...] (around 01/19/2025) for DM. documented in this [facility]03-12-2025 History of Present illness Narrative* Blossom Cody NP - 07/19/2024 9:30 AM EDT Images from the original note were not included. Subjective Patient ID: Trev Ontiveros is a 43 y.o. male who presents for Follow-up (Rt foot healing after multiple surgeries. ). HPI: Pt states right foot got infected after last appt. He went to ER and got admitted, had 3 surgeries. Was a huge wound , was in rehab place in [place] couldn't put weight on it for awhile. Had MRSA while there. Had IV ATB 4 times a day for [address] Nolasco in [place]. Was taking Vit D weekly in rehab. Had PT daily there. Now area is approx 50 cent size (medial lateral right foot). Sees Dr Feldman. Has been home for 2 weeks now. Blood sugars 120-160 fasting and after meals.Taking L[facility]us 42-[facility]pt will clarify with endo at appt. Nopain in foot right now. Has been able to put weight on it for past 2-3 weeks. Off work since week before X- mas, hopes to go back in approx 1 [...] Sleeping ok, not as good since home-had sleepaide in rehab. Trazadone 50mg tried, that didn't [...] Wellness in Apr 2024) documented in this encounterResearch Psychiatric CenterTiztdjvvss09-70-4212 Evaluation note* Diagnosis Onset Date Resolution Status Admit Date Diabetes acuteFebruary 2024 2:39pmMDRO (multiple drug resistant organisms) resistanceacuteFebruary 2024 2:39pmReceiving intravenous antibiotic treatment as outpatientacuteFebruary 2024 2:39pmWound of right footacute June 14, 2024 2:39pmBMI 50.0-59.9, adultacuteApril 2024 8:51amDietary counseling and surveillanceacuteApril 2024 8:51amHypertensionacuteApril 2024 8:51amMixed hyperlipidemiaacuteApril 2024 8:51amType 2 diabetes mellitus with hyperglycemiaacuteApril 2024 8:51amWound of left footacute August 21, 2024 8:51amWound of right footacuteApril 2024 8:51am [facility] Work Phone: [phone] 138-264412-11-2024 History of Present illness Narrative* Blossom Cody, [employer] MACHINE OPERATOR - 04/19/2024 10:00 AM EST Images from [...] polyneuropathy associated with type 2 diabetes mellitus ([facility]) Comments: Pt sees endo. HgbA1c 01/31 7.4 (prior 9.7 in October). Enc yearly eye exam. Watch sweets, portions on carbs. Enc to to be as active as able. Endo did lab Jan 19 Urine micro, CMP, Lipid. Reviewed per their note Type 2 diabetes mellitus with neurological manifestation ([facility]): See above Essential hypertension Comments: Well controlled Orders: - lisinopril 30 MG tablet; Take 1 tablet (30 mg) by mouth Daily Traumatic amputation of toe of right foot, subsequent encounter ([facility]) Comments: Sees Dr Reynolds Dyslipidemia ([facility]) Comments: Lipids: Chol 126, Trig 219, HDL 25, LDL 69, ratio 5 per Endo lab in jan Hypertriglyceridemia ([facility]/HCC) Comments: See above last 290 in Mar 2023-so better. Avoid sweets. enc fruit and elliot veget, lean protein nuts,exercise Poorly controlled diabetes mellitus ([facility]/HCC) Type 2 diabetes mellitus with hyperglycemia, with long-term current use of insulin (CMS/HCC): See Endo Amputation of toe, traumatic, left, sequela ([facility]/HCC): Sees Podiatry Diabetic autonomic neuropathy associated with type 2 diabetes mellitus ([facility]/HCC: See above Acquired hallux valgus, unspecified laterality: Sees Podiatry Morbid obesity ([facility]): See above Vitamin B12 deficiency: 374 on recent lab in Jan Lipoprotein deficiency disorder F/U in July or August for recheck-hypertension/Diabetes, sooner if concerns documented in this [facility]10-21-2024 Telephone encounter Note* Telephone Encounter - Blossom Cody NP - 02/28/2024 11:53 AM EDT [id number] Miscellaneous Notes* Telephone Encounter - Blossom Cody NP - 02/28/2024 11:53 AM EDT Rx sent documented in this [facility]09-11-2024 History of Present illness Narrative* Blossom Cody [...] polyneuropathy associated with type 2 diabetes mellitus ([facility]) Comments: HgbA1c 9.7 in October. He sees Endo. Plans to do lab for them this week. He has Endo appt next week. Enc yearly eye exams. Enc to watch portions on carbs, avoid sweets. Try to be as active as able. Type 2 diabetes mellitus with neurological manifestation ([facility]) Essential hypertension: Controlled. Pt will verify what dose he has at home ie 30 or 40mg of Lisinopril. 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 PVU documented in this [facility]08-22-2024 Telephone encounter Note* Telephone Encounter - Blossom Cody NP - 12/30/2023 4:44 PM EDT Rx sent [facility] [id number] Miscellaneous Notes* Telephone Encounter - Blossom Cody NP - 12/30/2023 4:44 PM EDT Rx sent documented in this [facility]02-07-2024 History of Present illness Narrative* Blossom Cody [...] sugars ranging from 120-170's. Sees [facility] in [place], next appt September 13 with them. Taking [...] polyneuropathy associated with type 2 diabetes mellitus ([facility]) Comments: Sees [facility], last HgbA1c 8.11 May 2023 (prior 8.9 end of December). Pt asked me why we can't just take care of his Diabetes, so he doesn't have to go to [place]. I told him because his sugars are [...] DM care again. PVU Diabetic neuropathic arthropathy ([facility]) Comments: Hx of Type 2 diabetes mellitus with neurological manifestation ([facility]/HCC): See above Traumatic amputation of toe of right foot, sequela ([facility]) Comments: Hx of Sees Dr Feldman. Now has left foot toe amputated. Per pt toe is healing Ulcer of foot due to type 2 diabetes mellitus ([facility]/HCC): Hx of Poorly controlled diabetes mellitus ([facility]): Last HgbA1c 8.2 Type 2 diabetes mellitus with hyperglycemia, with long-term current use of insulin ([facility]): As above Vitamin B 12 deficiency Comments: Last WNL at 351 Hx of diabetic neuropathy: Hx of 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CMS/HCC): Hx of Morbid obesity ([facility]) Comments: Enc healthy diet, watch sweets carbs. Balance diet with carb proteinm try to add vegeatbles, Enc physical activity as able Hypertriglyceridemia ([facility]) Comments: Last lipids 04/01 Chol 142, [...] neuropathy, with long-term current use of insulin ([facility]): Hx of MCC (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 (Z79.4): Hx of Acquired absence of other toe(s), unspecified side (Z89.429): Hx of Type 2 diabetes mellitus with diabetic neuropathy, with long-term current use of insulin ([facility]);Hx of Body mass index [BMI] 50.0-59.9, adult (Z68.43): See above. Discussed seeing weight loss provider or seeing someone about gastric bypass-pt declined both. He is not interested in this Type 2 diabetes mellitus with foot ulcer, with long-term current use of insulin ([facility]): Hx of (no ulcer at this [...] Type 2 Diabetes mellitus with hyperglycemia with care home current use of insulin (CMS/[facility]): Hx of Morbid obesity: See above documented in this encounterResearch Psychiatric [id number] Evaluation note* Encounter Date Diagnosis Assessment Notes Treatment Notes Treatment Clinical Notes Jun, Type 2 diabetes mellitus with hy perglycemia (ICD-10 - E11.65) [employer] [facility] Other 01-31-2024 Evaluation note* Encounter Date Diagnosis Assessment Notes Treatment Notes Treatment Clinical Notes May, Type 2 diabetes mellitus with hy perglycemia (ICD-10 - E11.65) 1. Uncontrolled, a Type [...] for pt to take marta, nahid mckeon. Steglatro is tier 2 on formulary. Reviewed [...] or sores that do not appear to behealing. 4. Meter: Plan to check blood glucose: [...] hyperglycemia, or diabetes medication issues. 6. Prescriptions: [facility] [place]- syringes, pen needles, victoza sent. 06/09/23 7. Prescriptions will not be filled unless you are compliant with follow up appointments or have a follow up appointment scheduled as ordered by your provider. Refills should be requested at the timeof your visit. May,ietary counseling and surveillance (ICD-10 - Z71.3) see above May,Hyperlipidemia (ICD-10 - E78.5) 04/01 ldl 79 at target/trig 290- on statin May,HTN (hypertension) (ICD-10 - I10) on julissa- above target; f/u with pcp for further recommendation May,Long term current use of insulin (ICD-10 - Z79.4) May,Vitamin B 12 deficiency (ICD-10 - E53.8) 04/01 vit b 12 351 at target May,MI 50.0-59.9, adult (ICD-10 - Z68.43) see above May,mputation toe (ICD-10 - Z89.429) Keep f/u with Dr. Feldman May,racked skin on feet (ICD-10 - R23.4) keep f/u with Dr. Feldman [employer] Other 08-28-2023 Evaluation note* Encounter Date Diagnosis Assessment Notes Treatment Notes Treatment Clinical Notes Dec, Type 2 diabetes mellitus with hy perglycemia (ICD-10 - E11.65) 1. Uncontrolled, a Type [...] Steglatro is tier 2 on formulary. Reviewed withpt target fasting am/ac glucose 90/130; bedtime 120/150- 180. Pt verbalizes understanding. 3. Patient is alert, [...] or sores that do not appear to behealing. 4. Meter: Plan to check blood glucose: [...] for Lispro/ozempic 0.5mg sent to [facility] in [place] 01/04/23 7. Prescriptions will not be filled unless you are compliant with follow up appointments or have a follow up appointment scheduled as ordered by your provider. Refills should be requested at the timeof your visit. Dec,ietary counseling and surveillance (ICD-10 - Z71.3) see above Dec,Hyperlipidemia (ICD-10 - E78.5) 01/29 ldl 89 at target on statin Dec,HTN (hypertension) (ICD-10 - I10) on julissa Dec,Long term current use of insulin (ICD-10 - Z79.4) Dec,Vitamin B 12 deficiency (ICD-10 - E53.8) 12/30 vit b 12 335 at target Dec,MI 50.0-59.9, adult (ICD-10 - Z68.43) see above Dec,Wound of foot (ICD-10 - S91.309A) pt has apt scheduled with Dr. Feldman today [employer] Other 05-30-2023 NotePROCEDURE: XR FOOT LT MIN [...] by: FRANCO FRANCES Date: 2022-10-06 14:13[facility]05-04-2023 Evaluation note* Encounter Date Diagnosis Assessment Notes Treatment Notes Treatment Clinical Notes September, Type 2 diabetes mellitus with hy perglycemia (ICD-10 - E11.65) [employer] Other 04-17-2023 NotePROCEDURE: XR FOOT LT MIN [...] stable from 06/16/2022 . Electronically authenticated by: QASIM SOSA Date: 2022-08-24 12:46[facility]02-16-2023 Evaluation note* Encounter Date Diagnosis Assessment Notes Treatment Notes Treatment Clinical Notes Jun, Type 2 diabetes mellitus with hy perglycemia (ICD-10 - E11.65) 1. Uncontrolled, a Type 2 diabetes with A1c of 8.2% 2. Blood glucose levels above target. Discussed with pt restarting ozempic, he had s/e from higher dose ozempic 1mg and concern with cost works at [employer]. Pt agreeable to starting sample ozempic 0.5mg [...] Steglatro is tier 2 on formulary. Reviewed withpt target fasting am/ac glucose 90/130; bedtime 120/150- 180. Pt verbalizes understanding. 3. Patient is alert, [...] or sores that do not appear to behealing. 4. Meter: Plan to check blood glucose: [...] hyperglycemia, or diabetes medication issues. 6. Prescriptions: Syringes/ozempic/steglatro sent to [facility] in [place] 06/25/22 7. Prescriptions will not be filled unless you are compliant with follow up appointments or have a follow up appointment scheduled as ordered by your provider. Refills should be requested at the timeof your visit. Jun,ietary counseling and surveillance (ICD-10 - Z71.3) see above Jun,Hyperlipidemia (ICD-10 - E78.5) 12/28 ldl 71 at target on statin Jun,HTN (hypertension) (ICD-10 - I10) on julissa Jun,Long term current use of insulin (ICD-10 - Z79.4) Jun,Vitamin B 12 deficiency (ICD-10 - E53.8) 12/28 vit b 12 423 at target Jun,MI 50.0-59.9, adult (ICD-10 - Z68.43) [employer] Other [id number] NotePROCEDURE: XR ANKLE LT MIN 3 V, [...] suggest neuropathic joint. Electronically authenticated by: GISSEL NAYAK Date: 2022-06-16 16:33[facility]02-07-2023 NotePROCEDURE: XR ANKLE LT MIN [...] suggest neuropathic joint. Electronically authenticated by: GISSEL NAYAK Date: 2022-06-16 16:33[facility]08-30-2022 Evaluation note* Encounter Date Diagnosis Assessment Notes Treatment Notes Treatment Clinical Notes Dec, Type 2 diabetes mellitus with hy perglycemia (ICD-10 - E11.65) 1. Controlled, a Type [...] or sores that do not appear to behealing. 4. Meter: Plan to check blood glucose: [...] issues. 6. Prescriptions: Will call when needed. Dec,ietary counseling and surveillance (ICD-10 - Z71.3) see above Dec,Hyperlipidemia (ICD-10 - E78.5) 12/28 ldl 71 at target on statin Dec,HTN (hypertension) (ICD-10 - I10) on julissa Dec,Long term current use of insulin (ICD-10 - Z79.4) Dec,Vitamin B 12 deficiency (ICD-10 - E53.8) 12/28 vit b 12 423 at target Dec,MI 45.0-49.9, adult (ICD-10 - Z68.42) 14 pound weight loss from last visit, continue with weight loss efforts [employer] Other 01-01-2021 History general Narrative - Reported* Type Description Date Medical History type II diabetes Medical HistoryhypertensionMedical HistoryhyperlipidemiaMedical Historycovid urgical HistoryUlcer on left great toe [id number] HistoryPartial amputation Right great toeurgical HistoryAll toes right foot amputated 09/2021Hospitalization HistoryToe [id number] [employer] Other 01-01-2021 History general Narrative - Reported* Type Description Date Medical History type II diabetes Medical HistoryhypertensionMedical HistoryhyperlipidemiaMedical Historycovid urgical HistoryUlcer on left great toe [id number] HistoryPartial amputation Right great toeurgical HistoryAll toes right foot amputated urgical HistoryLeft great [facility]Toe [id number] [employer] Other Chief complaint+Reason for visit Narrative* Chief Complaint no meter Reason for Visit BMI 50.0-59.9, adult Dietary counseling and surveillance Hypertension Mixed hyperlipidemia Type 2 diabetes mellitus with hyperglycemia [facility] Work Phone: Chitz complaint+Reason for visit Narrative* Chief Complaint meter Reason for Visit BMI 50.0-59.9, adult Dietary counseling and surveillance Hypertension Mixed hyperlipidemia Type 2 diabetes mellitus with hyperglycemia Wound of left foot Wound of right foot [facility] Work Phone: Evaluation noteNo InformationNortShriners Hospitals for [facility] - [facility] [employer] Other Evaluation note* Diagnosis Diabetic polyneuropathy associated with type 2 diabetes mellitus (CMS/HCC)- Primary Diabetic neuropathic arthropathy ([facility]/HCC) Type II or unspecified type diabetes mellitus with neurological manifestations, not stated as uncontrolled Type 2 diabetes mellitus with neurological manifestation ([facility]) 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, sequela ([facility]CC) Ulcer of foot due to type 2 diabetes mellitus ([facility]/H[facility]) Vitamin B 12 deficiency Other B-complex deficiencies Hx of diabetic neuropathy 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 deficiencies Hypertriglyceridemia ([facility]) Pure hyperglyceridemia 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, 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) Essential hypertension Unspecified essential hypertension Nasal congestion Other diseases of nasal cavity and sinuses Type 2 diabetes mellitus with diabetic autonomic neuropathy, with long-term current use of insulin (CMS/HCC) MCC (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 (Z79.4) Acquired absence of other toe(s), unspecified side (Z89.429) Type 2 diabetes mellitus with diabetic neuropathy, with long-term current use of insulin ([facility]) Body mass index [BMI] 50.0-59.9, adult (Z68.43) Type 2 diabetes mellitus with foot ulcer, with long-term current use of insulin ([facility]) 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.49) Status post amputation of lesser toe, unspecified laterality ([facility]) Arthritis of left foot Acquired hallux valgus of left foot Type 2 diabetes mellitus with hyperglycemia, with long-term current use of insulin ([facility]) Morbid obesity ([facility]) Morbid obesity documented in this encounter [facility] HealthcareEvaluation noteNo assessment information availableMetrohealth Main Campus Medical Center Work Phone: Evaluation note* Diagnosis Onset Date Resolution Status BMI 50.0-59.9, adult acuteDietary counseling and surveillanceacuteHypertensionacuteMixed hyperlipidemiaacuteType 2 diabetes mellitus with hyperglycemiaacute [facility] Work Phone: Evaluation note* Diagnosis Onset Date Resolution Status BMI 50.0-59.9, adult acuteDietary counseling and surveillanceacuteHypertensionacuteMixed hyperlipidemiaacuteType 2 diabetes mellitus with hyperglycemiaacuteWound of left footacuteWound of right footacute [facility] Work Phone: Evaluation note* Diagnosis Pure hyperglyceridemia ([facility]) Pure hyperglyceridemia documented in this encounter [facility] HealthcareEvaluation note* Diagnosis Diabetic polyneuropathy associated with type 2 diabetes mellitus ([facility])- Primary Type 2 diabetes mellitus with neurological manifestation ([facility]) Essential hypertension Unspecified essential hypertension Traumatic amputation of toe of right foot, subsequent encounter ([facility]) Type 2 diabetes mellitus with hyperglycemia, with long-term current use of insulin ([facility]) Dyslipidemia ([facility]) Other and unspecified hyperlipidemia Hypertriglyceridemia ([facility]) Pure hyperglyceridemia Vitamin B 12 deficiency Other B-complex deficiencies Pure hyperglyceridemia ([facility]) Pure hyperglyceridemia documented in this encounter [facility] HealthcareEvaluation note* Diagnosis Diabetic polyneuropathy associated with type 2 diabetes mellitus ([facility])- Primary Wellness examination Type 2 diabetes mellitus with neurological manifestation ([facility]) Essential hypertension Unspecified essential hypertension Traumatic amputation of toe of right foot, subsequent encounter ([facility]) Dyslipidemia ([facility]) Other and unspecified hyperlipidemia Hypertriglyceridemia ([facility]) Pure hyperglyceridemia Poorly controlled diabetes mellitus ([facility]) Type II or unspecified type diabetes mellitus without mention of complication, not stated as uncontrolled Type 2 diabetes mellitus with hyperglycemia, with long-term current use of insulin ([facility]) Diabetic autonomic neuropathy associated with type 2 diabetes mellitus ([facility]) Type II or unspecified type diabetes mellitus with neurological manifestations, not stated as uncontrolled Acquired hallux valgus, unspecified laterality Morbid obesity ([facility]) Morbid obesity Vitamin B 12 deficiency Other B-complex deficiencies 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[facility]) Lipoprotein deficiencies documented in this encounter [facility]Evaluation [facility]* Diagnosis Essential hypertension Unspecified essential hypertension documented in this encounter [facility] HealthcareEvaluation note* Diagnosis Diabetic polyneuropathy associated with type 2 diabetes mellitus ([facility])- Primary Type 2 diabetes mellitus with neurological manifestation ([facility]) 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, sequela ([facility]) Type 2 diabetes mellitus with hyperglycemia, with long-term current use of insulin ([facility]) Ulcer of right foot, unspecified ulcer stage (HCC) ([facility]) Poorly controlled diabetes mellitus ([facility]) Type II or unspecified type diabetes mellitus without mention of complication, not stated as uncontrolled Dyslipidemia ([facility]) Other and unspecified hyperlipidemia Hypertriglyceridemia ([facility]) Pure hyperglyceridemia Essential hypertension Unspecified essential hypertension Morbid obesity ([facility]) Morbid obesity Vitamin B 12 deficiency Other B-complex deficiencies Depressed mood Insomnia, unspecified type documented in this encounter [facility]Evaluation note* Diagnosis 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)- Primary Essential hypertension Unspecified essential hypertension 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, sequela ([facility]) Morbid obesity ([facility]) Morbid obesity Hypertriglyceridemia Pure hyperglyceridemia documented in this encounter [facility] HealthcareEvaluation note* Diagnosis Onset Date Resolution Status Admit Date BMI 50.0-59.9, adult acuteJuly 2024 9:51amDietary counseling and surveillanceacuteJuly 2024 9:51amHypertensionacuteJuly 2024 9:51amMixed hyperlipidemiaacuteJuly 2024 9:51amType 2 diabetes mellitus with hyperglycemiaacuteJuly 2024 9:51amWound of left footacuteJuly 2024 9:51amWound of right footacuteJuly 2024 9:51am [facility] Work Phone: Evaluation note* Diagnosis Wellness examination- [...] amputation of toe of right foot, sequela ([facility]) Arthritis of left foot Morbid obesity (CMS-HCC) [...] as uncontrolled documented in this encounter [facility]* Diagnosis Essential hypertension Unspecified essential hypertension documented in this encounter [facility]Evaluation note* Diagnosis Onset Date Resolution Status Admit Date BMI 50.0-59.9, adult acuteNov2024 9:46amDietary counseling and surveillanceacuteMarch 12, 2025 9:46amHypertensionacuteNov2024 9:46amMixed hyperlipidemia acuteNov2024 9:46amType 2 diabetes mellitus with hyperglycemiaacute March 12, 2025 9:46amVitamin B 12 deficiencyacuteNov2024 9:46am Wound of right footacuteNov2024 9:46am [facility] Work Phone: Reason for referral (narrative)No reason for referral information availableAdena F[facility] Center Work Phone: Summary Purpose Family History Relationship Condition Age at Onset Recorded Date/T juan brother Diabetes mellitus Unknown fatherMalignant neoplasmUnknownNot SpecifiedDiabetes mellitusUnknown Relationship Condition Age at Onset Recorded Date/T juan brother Diabetes mellitus Unknown fatherMalignant neoplasmUnknownmotherDiabetes mellitusUnknown Advance Directives Advance Directive Response Recorded Date/ [...] right foot November 27, 2024 9:51 am Chief Complaint Admit Date METER March 12, [...] right foot March 12, 2025 9 :46am Additional Source Comments (unrecognized sect ion and content) No Status Records FoundNo Status Records FoundNo Status Records FoundNo Status Records FoundNo Status Records Found INFORMATION SOURCE (unrecogn ized section and content) DATE CREATED AUTHOR 08/27/2021 [facility] DATE CREATED AUTHOR AUTHOR'S ORGANIZ ATION 10/17/2022 [facility] DATE CREATED AUTHOR AUTHOR'S ORGANIZ ATION 04/29/2024 [facility] DATE CREATED AUTHOR AUTHOR'S ORGANIZ ATION 02/01/2025 [facility] EPIC DATE CREATED AUTHOR AUTHOR'S ORGANIZ ATION 02/02/2025 [facility] REASON FOR VISIT (unrecogniz ed section and content) ReasonCommentsDiabetesPt saw endocrinology last week and has his hgbA1c. HgbA1c was 8.2 and his results and notes are under media from that appt on 06-09-22 ReasonCommentsFollow-upPt has labs from endo. Pt is not fasting today and he plans to come over tomorrow to have them done.ReasonCommentsFollow-upRt foot healing after multiple surgeries.ReasonCommentsFollow-up3 month DMReasonComments Diabetes Care Teams (unrecognized sec tion and content) Team Status: Active Member Role Status Sarahi Hernandez MD Primary Care Provider Active Team Status: Active Member Role Status Sarahi Hernandez MD Primary Care Provider Active Start: May 30, 2024 Isabel Wong ProviderActiveStart: May 30, 2024 Team Status: Inactive Member Role Status Sarahi Hernandez MD Primary Care Provider Active Start: June 14, 2024 End: June 14, 2024MicRainer Cota ProviderActiveStart: June 14, 2024 End: June 14, 2024 Team Status: Inactive Member Role Status Sarahi Hernandez MD Primary Care Provider Active Start: August 21, 2024 End: August 21, 2024Elissa Mi ProviderActiveStart: August 21, 2024 End: Aubree 14th, 2025 Team Status: Inactive Member Role Status Dates Natalie Hernandez MD Primary Care Provider Active Start: April 26, 2024 End: April 26bakari Feldman DPM MSAttending ProviderActive Start: April 26, 2024 End: April 26, 2024 Team Status: Active Member Role Status Sarahi Hernandez MD Primary Care Provider Active Start: January 20, 2024 Link Ortega , APRNAttenfabiana ProviderActiveStart: January 20, 2024 Team Status: Inactive Member Role Status Sarahi Hernandez MD Primary Care Provider Active Start: January 26, 2024 End: January 26, 2024Tondra Dee Ortega , APRNAttenfabiana ProviderActiveStart: January 26, 2024 End: January 26, 2024Team MemberRelationshipSpecialtyStart DateEnd Natalie Lafleur MD [address] [place] [address] PCP - [facility] Medicine09/15/22Team MemberRelationshipSpecialtyStart DateEnd Date Natalie Hernandez MD [address] [place] [facility] [address] PCP - [facility] Medicine09/15/22 Team Status: Inactive Member Role Status Dates Link Ortega APRN Attending Provider Active Start: June 09, 2023 End: June 09, 2023 Team Status: Inactive Member Role Status Dates Damon Claros MD Attending Provider Active Start: June 09, 2023 End: June 09, 2023Ar Woodall Care ProviderActiveStart: June 09, 2023 End: June 09, 2023 Team Status: Inactive Member Role Status Sarahi Hernandez MD Primary Care Provider Active Start: October 19, 2023 End: October 19, 2023Elissa Mi ProviderActiveStart: October 19, 2023 End: October 19, 2023Team MemberRelationshipSpecialtyStart DateEnd Natalie Lafleur MD [address] [place] [facility] [address] PCP - GeneralFamily Medicine09/15/22 Blossom Cody NP [address] [facility] [place] [address] Nurse PractitionerFawvly Medicine01/19/24Team MemberRelationshipSpecialtyStart DateEnd Date Natalie Hernandez MD [address] [facility] [place] [address] PCP - GeneralFamily Medicine09/15/22 Blossom Cody NP [address] [facility] [place] [address] [facility]01/19/24Te MemberRelationshipSpecialtyStart DateEnd Date Natalie Hernandez MD [address] [facility] [place] [address] PCP - GeneralFami Medicine09/15/22 Blossom Cody NP [address] [facility] [place] [address] [facility]01/19/24Te MemberRelationshipSpecialtyStart DateEnd Date Natalie Hernandez MD [address] [facility] [place] [address] [facility]CP - [facility]Fa[facility]09/15/22 Blossom Cody NP [address] [facility] [place] [address] [facility] Medicine01/19/24Team MemberRelationshipSpecialtyStart DateEnd Date Natalie Hernandez MD [address] [place] [address] [facility]CP - [facility]09/15/22Team MemberRelationshipSpecialtyStart DateEnd Date Natalie Hernandez MD [address] [place] [address] [facility]CP - [facility] Medicine09/15/22Team MemberRelationshipSpecialtyStart DateEnd Date Natalie Hernandez MD [address] [place] [address] PCP - [facility]09/15/22 Blossom Cody NP [address] [place] [address] [facility]Em[facility]01/19/24Team MemberRelationshipSpecialtyStart DateEnd Date Natalie Hernandez MD [address] [place] [address] PCP - [facility] Medicine09/15/22 Blossom Cody NP [address] [place] [address] [facility] Medicine01/19/24Team MemberRelationshipSpecialtyStart DateEnd Date Natalie Hernandez MD [address] [place] [address] PCP - [facility]09/15/22 Blossom Cody NP [address] [place] [address] Nurse Pract[facility]erHa[facility] Healthcarely Medicine01/19/24Team MemberRelationshipSpecialtyStart DateEnd Date Natalie Hernandez MD PCP - GeneralFamily Medicine09/15/22 Blossom Cody NP [facility]erHa[facility] Healthcare[facility] Medicine01/19/24Team MemberRelationshipSpecialtyStart DateEnd Date Natalie Hernandez MD PCP - GeneralFamily Medicine09/15/22 Blossom Cody NP [facility]01/19/24 Team Status: Active Member Role Status Dates MATY TorresC Primary Care Provider Active Team Status: Inactive Member Role Status Dates Link Ortega APRN Attending Provider Active Start: November 27, 2024 End: November 27, 2024Sajuan Granados NP-[facility] Care ProviderActiveStart: November 27, 2024 End: November 27, 2024Team MemberRelationshipSpecialtyStart DateEnd Date Tres Oleary MD [address] [place] [address] PCP - Generalmily Medicine01/11/25 Blossom Cody NP [facility]er[facility]01/19/24Team MemberRelationshipSpecialtyStart DateEnd Date Tres Oleary MD [address] [place] [address] PCP - GeneralFamily Medicine01/11/25 Blossom Cody NP [facility]01/19/24Team MemberRelationshipSpecialtyStart DateEnd Date Tres Oleary MD [address] [facility] [place] [address] PCP - GeneralFamily Medicine01/11/25 Blossom Cody NP Nurse PractitionerFamily Medicine01/19/24Team MemberRelationshipSpecialtyStart DateEnd Date Natalie Hernandez MD PCP - GeneralFamily Medicine Tres Oleary MD [address] [facility] [address] PCP - GeneralFamily Medicine01/11/25 Blossom Cody NP Nurse Practitionermily Medicine01/19/24Team MemberRelationshipSpecialtyStart DateEnd Date Natalie Hernandez MD PCP - GeneralFamily Medicine Tres Oleary MD [address] [facility] [address] PCP - GeneralFamily Medicine01/11/25 Blossom Cody NP Nurse Practitionermily Medicine01/19/24Team MemberRelationshipSpecialtyStart DateEnd Date Natalie Hernandez MD PCP - GeneralFamily Medicine Tres Oleary MD [address] [facility] [address] PCP - GeneralFawvly Medicine01/11/25 Blossom Cody NP Nurse PractitionerFawvly Medicine01/19/24 Team Status: Active Member Role/Relationship Status Dates SERG Torres Primary Care Provider Active Team Status: Active Member Role/Relationship Status Dates SERG Torres Primary Care Provider Active Start: January 31, 2025 Elissa Mi ProviderActiveStart: January 31, 2025 Team Status: Inactive Member Role/Relationship Status Dates SERG Torres Primary Care Provider Active Start: March 12, 2025 End: March 12, 2025Elissa Mi ProviderActiveStart: March 12, 2025 End: March 12, 2025 Goals (unrecognized section and content) Goals may [...] BE BASED ON THE PRIMARY CLINICAL RECORDS. [facility]. provides no warranty or guarantee of the accuracy or completeness of information in this document.
== END 2025-03-13 10:39 | disposition home or self-care (01) ==
LOC: WC 10:38
PROVIDERS: PCP Family Medicine; Visit Provider Physician Assistant
DX: L84 Corns and callosities (principal); E11.65 Type 2 diabetes mellitus with hyperglycemia
CPT/HCPCS: 11055

== ENCOUNTER 2025-04-10 10:49 | Outpatient (OUT) | payer OTHER, SELFPAY ==
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
--- OUTSIDE RECORDS SUMMARY | 2025-04-10 10:51 | XMS_ITS | Clinical Summary ---
Author Organization [facility] tem Address [id number] [address] [place] [address] Care Team Providers Care Parachute Supervisor Name Role Phone Natalie Ryan MD Primary Care Provider Allergies No known active allergies Medications MedicationSigDispense [...] 1 each 03/30/2018Active lancets (ACCU-CHEK MULTICLIX LANCET) [facility] blood glucose check 100 each 03/30/2018Active atorvastatin (LIPITOR) 40 mg tablet Take 40 mg by mouth daily.Active ONETOUCH VERIO strip U UTD BEFORE MEALS AND HS0106/01/2017Active lisinopril (PRINIVIL,ZESTRIL) 10 mg tablet Take 10 mg by mouth daily.Active BD ULTRA-FINE ABIGAIL PEN NEEDLE 32 gauge x 5/32 needle USE TO ADMINISTER INSULIN QID NOKBSARO1024/29/2018Active ONETOUCH VERIO SYSTEM [facility] See Admin Instructions.Active insulin syringe-needle U-100 0.3 [...] DatePlantar ulcer of right foot04/13/2018Hx of diabetic cucnbhrbpf45/05/2018Neuropathic foot ulcer04/13/2018 Resolved Problems ProblemNoted DateDiagnosed DateResolved OjeuSaoitcwe62 Immunizations No known immunizations Family History Medical HistoryRelationNameCommentsCancerFatherbladderDiabetesMotherRelationName StatusCommentsFatherAliveMotherAlive Social History Tobacco UseTypesPacks/DayYears UsedDateSmoking Tobacco: FormerCigarettes0.956749 - 2003Smokeless Tobacco: Never Tobacco Cessation:Counseling Given: No Alcohol UseStandard Drinks/WeekCommentsYes2 (1 standard drink = 0.6 oz pure alcohol)ChildcareAnswerDate MsorzouuIkjzohreoQypyqyp43/12/2019EmploymentAnswer Date PnbqgyzsKwnjicjjdlPsqungr55/12/2019Purpose - LifeAnswerDate RecordedPurpose and direction in ziadUdkeaoi23/11/2021ex and Gender InformationValueDate RecordedSex Assigned at BirthNot on fileLegal OsuRxel4712/13/2014 12:09 PM EDT Gender IdentityNot on fileSexual OrientationNot on file Last Filed Vital Signs Vital SignReadingTime TakenCommentsBlood Xlqwgmuq086/7209 9:21 AM EDT Bnreg7956 9:21 AM ZCWItvchetkzgo10.6 ??C (99.7 ??F)01/10/2021 6:30 AM EDTRespiratory Ptpx0172 6:30 AM EDTOxygen Juhacrppce968%01/10/2021 9:25 AM EDTInhaled Oxygen Concentration--Jzaoix200.8 kg (350 lb)01/10/2021 6:30 AM QAVDsyexv536.9 cm (6' 0.01 )01/10/2021 6:30 AM EDTBody Mass Index47.46001/10/2021 6:30 AM EDT Plan of Treatment Health MaintenanceDue DateLast DoneCommentsDepression Qwcclpvel01/02/1992Tobacco Edeewituh05/02/1992Adult BMI Fandfgbrw74/02/1998DTaP,Tdap and Td Vaccines (1 - Tdap)10/09/1998COVID-19 Vaccine (3 - season)/03/2021, 11/27/2020Influenza Unbgjje84/10/2019, 02/22/2019, 02/07/2018 Goals GoalPatient Goal TypeAssociated ProblemsRecent ProgressPatient-Stated?Author Return home with home care services Evelyne Conde LSW Note: Evaluation of progress towards goal: Return home with home health care services. Medical Devices Not on file Insurance Advance Directives * Full Code (Latest Code Status on File) Date ActivatedDate XykxepfnunlKgyophnh62/18/2018 5:45 AM03/30/2018 7:23 PM Care Teams Team MemberRelationshipSpecialtyStart DateEnd Natalie Ryan MD [address] [place], [place] [id number] PCP - GeneralFamily Ssvxgjxm06/17/18
--- OUTSIDE RECORDS SUMMARY | 2025-04-10 11:06 | XMS_ITS | CCD ---
Author Organization [facility] CliniSywy Care Team Providers Care Commercial Property Administrator Name Role Phone Link Ortega Unavailable NATANAEL FELDMAN Attending Unavailable NATANAEL FELDMAN Admitting Unavailable WONDERLY, DR NATALIE Lozada Primary Care Unavailable NATANAEL FLEDMAN Attending Unavailable NATANAEL FELDMAN Admitting Unavailable WONDERLY, [...] Primary Care Provider Blossom Cody NP Unavailable [phone] Natalie Hernandez Primary Care Unavailable Taiwo, Natanael Marks Admitting Unavailable Taiwo, Natanael Marks Attending Unavailable Shelby [facility] Care Unavailable Damon Claros Admitting Unavailable Damon Claros Attending Unavailable Natalie Hernandez MD [facility] Care Provider Natanael Feldman DPM Attending Provider [phone] Natalie Hernandez MD Primary Care Provider Blossom Cody NP Unavailable Link Ortega APRN Attending Provider [phone] Sharif BURGER-CMaria Fernanda Primary Care Provider [phone] Tres Oleary MD Primary Care Provider [phone] MARIA FERNANDA GRANADOS Attending Unavailable BLOSSOM CODY Attending Unavailable MARIA FERNANDA GRANADOS Attending Unavailable BLOSSOM CODY Attending Unavailable Natalie Hernandez MD Primary Care Provider Maria Fernanda Guzman Primary Care Provider Link Ortega APRN Attending Provider [phone] Medications Current Medications MedicationDrug Class(es)DatesSig (Normalized)Sig (Original)0.25 MG, 0.5 MG Dose 3 ML semaglutide 0.68 MG/ML Pen Injector [Ozempic] (1 source)Start: 26-92-4977lwkjfb 0.5 mg by subcutaneous injection every week Ozempic (0.25 or 0.5 MG/DOSE) 2 MG/3ML 0.5mg Subcutaneous once weekly for 84 days Dec, Activeaspirin 81 mg chewable tablet (20 sources)Platelet Aggregation Inhibitor, Nonsteroidal Anti-inflammatory Drug Start: 48-72-7127pylk 1 tablet by mouth once dailyAspirin 81 [...] tablet (20 sources)HMG-CoA Reductase InhibitorStart: 02-08-2023 End: 76-33-0804eizx 1 tablet by mouth once dailyAtorvastatin 40 mg tablet Active 40 MG PO Daily October 18, 2023 11:00pm Complies with drug therapydapagliflozin 10 mg oral tablet (20 sources)Sodium-Glucose Cotransporter 2 InhibitorStart: 10-19-2023 End: 30-43-9443jnzy 1 tablet by mouth once daily in the morningDapagliflozin Propanediol (Farxiga) 10 mg tablet Active 10 MG PO Every morning 90 0 August 21, 2024 8:32am Type 2 diabetes mellitus with hyperglycemia 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 ActiveInsulin Glargine-Yfgn (11 sources)Start: 04-94-0803jcxtau 44 [IU] by subcutaneous injection twice dailyInsulin Glargine-Yfgn Active 44 UNIT SUBCUT Twice daily 100 October 19, 2023 12:27pmStart: 10-19-2023 End: 20-77-9378wijtvt 44 [IU] by subcutaneous injection twice dailyInsulin Glargine-Yfgn Discontinued 44 UNIT SUBCUT Twice daily October 19, 2023 12:04pm October 19, 2023 12:27pmStart: 43-85-5945gbtobf 44 [IU] by subcutaneous injection twice dailyInsulin Glargine-Yfgn Active 44 UNIT SUBCUT Twice daily October 19, 2023 12:04pmStart: 10-19-2023 End: 97-37-8140yxtwsb 40 [IU] by subcutaneous injection twice dailyInsulin Glargine-Yfgn Discontinued 40 UNIT SUBCUT Twice daily October 19, 2023 11:40am October 19, 2023 12:05pmStart: 07-26-2023 End: 36-28-2760ezuioc 46 [IU] by subcutaneous injection twice dailyInsulin Glargine-Yfgn Discontinued 46 UNIT SUBCUT Twice daily 90 90 July 26, 2023 3:32pm October 19, 2023 11:40amStart: 07-26-2023 End: 67-92-1192oacsnz 46 [IU] by subcutaneous injection twice dailyInsulin Glargine-Yfgn Discontinued 46 UNIT SUBCUT Twice daily 90 90 July 26, 2023 9:10am July 26, 2023 3:33pmStart: 07-26-2023 End: 70-49-7553pmotmg 46 [IU] by subcutaneous injection twice dailyInsulin Glargine-Yfgn Discontinued UNIT SUBCUT July 26, 2023 12:00am July 26, 2023 9:15am FreeTextSig: INJECT 46 UNITS SQ bid; Note: Source Status: Increase(titrate up to max 50 units/day); Provider: Shannon Olmsteadulin Glargine-Yfgn (10 sources)Start: 62-36-1478Hayhdlh Glargine-Yfgn (Semglee(Insulin Glarg- Yfgn)Pen) 100 unit/mL (3 mL) insulin pen Active 48 UNIT SUBCUT Twice daily 90 March 12, 2025 10:26am Type 2 diabetes mellitus with hyperglycemia Type 2 diabetes mellitus with hyperglycemia senior living (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 Complies with drug therapyStart: 01-17-2025 End: 20-76-1303Aydtilv Glargine-Yfgn (Semglee(Insulin Glarg-Yfgn)Pen) 100 unit/mL (3 mL) insulin pen Discontinued 46 UNIT SUBCUT Twice daily 90 January 17, 2025 12:25pm March 12, 2025 10:27am Type 2 diabetes mellitus with hyperglycemia Type 2 diabetes mellitus with hyperglycemia senior living (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: 11-27-2024 End: 75-43-1255Wsdshte Glargine-Yfgn (Semglee(Insulin Glarg-Yfgn)Pen) 100 unit/mL (3 mL) insulin pen Discontinued 46 UNIT SUBCUT Twice daily 90 November 27, 2024 9:41am January 17, 2025 12:25pm Type 2 diabetes mellitus with hyperglycemia Type 2 diabetes mellitus with hyperglycemia senior living (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: 55-44-3344Feyegjf Glargine-Yfgn (Semglee(Insulin Glarg- Yfgn)Pen) 100 unit/mL (3 mL) insulin pen Active 46 UNIT SUBCUT Twice daily 90 November 27, 2024 10:41am Complies with drug therapyStart: 08-21-2024 End: 52-66-6585Voalsjn Glargine-Yfgn (Semglee(Insulin Glarg-Yfgn)Pen) 100 unit/mL (3 mL) insulin pen Discontinued 45 UNIT SUBCUT Twice daily 90 August 21, 2024 8:37am November 27, 2024 9:42am Type 2 diabetes mellitus with hyperglycemia Type 2 diabetes mellitus with hyperglycemia senior living (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: 08-21-2024 End: 31-34-4690Dufsgqt Glargine-Yfgn (Semglee(Insulin Glarg-Yfgn)Pen) 100 unit/mL (3 mL) insulin pen Discontinued 45 UNIT SUBCUT Twice daily 90 August 21, 2024 9:37am November 27, 2024 10:42amStart: 08-21-2024 End: 24-49-4814Uoltsjh Glargine-Yfgn (Semglee(Insulin Glarg-Yfgn)Pen) 100 unit/mL (3 mL) insulin pen Discontinued 45 UNIT SUBCUT Twice daily 90 0 August 21, 2024 8:31am August 21, 2024 8:38am Type 2 diabetes mellitus with hyperglycemia Type 2 diabetes mellitus with 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: 08-21-2024 End: 36-63-0378Znqxfkz Glargine-Yfgn (Semglee(Insulin Glarg-Yfgn)Pen) 100 unit/mL (3 mL) insulin pen Discontinued 45 UNIT SUBCUT Twice daily 90 August 21, 2024 9:31am August 21, 2024 9:38amStart: 07-24-2024 End: 31-64-2598Wvrewyj Glargine-Yfgn (Semglee(Insulin Glarg-Yfgn)Pen) 100 unit/mL (3 mL) insulin pen Discontinued 44 UNIT SUBCUT Twice daily 90 0 July 23, 2024 11:00pm August 21, 2024 8:31am Type 2 diabetes mellitus with hyperglycemia Type 2 diabetes mellitus with 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..] ActiveInsulin Lispro 100 unit/mL solution (10 sources)Start: 00-30-9642Celhbwp Lispro 100 unit/mL solution Active 0 SUBCUT .COMPLEX February 28, 2024 10:07am subcutaneously; 1:4 carb ratio ac tid. 1:15 corrective scale ac tid (hs if >200 half dose) as directed; (expect up to 66 units/day)Start: 21-74-8926Kjepofc Lispro 100 unit/mL solution Active 0 SUBCUT .COMPLEX February 28, 2024 9:07am subcutaneously; 1:4 carb ratio ac tid. 1:15 corrective scale ac tid (hs if >200 half dose) as directed; (expect up to 66 units/day)Start: 01-26-2024 End: 97-78-8910Svxnqgw Lispro 100 unit/mL solution Discontinued 0 SUBCUT .COMPLEX January 26, 2024 10:37am February 28, 2024 10:12am subcutaneously; 1:4 carb ratio ac tid. 1:15 corrective scale ac tid (hs if >200 half dose) as directed; (expect up to 60 units/day)Start: 01-26-2024 End: 89-06-7399Wkgqopy Lispro 100 unit/mL solution Discontinued 0 SUBCUT .COMPLEX January 26, 2024 9:37am February 28, 2024 9:12am subcutaneously; 1:4 carb ratio ac tid. 1:15 corrective scale ac tid (hs if & gt;200 half dose) as directed; (expect up to 60 units/day)Start: 12-15-2023 End: 85-52-6371Qlclbdm Lispro 100 unit/mL solution Discontinued 0 SUBCUT .COMPLEX December 15, 2023 2:47pm January 26, 2024 10:37am subcutaneously; 1:4 carb ratio ac tid. 1:15 corrective scale ac tid (hs if >200 half dose) as directed; (expect up to 60 units/day)Start: 12-15-2023 End: 39-43-3649Yarjiot Lispro 100 unit/mL solution Discontinued 0 SUBCUT .COMPLEX December 15, 2023 1:47pm January 26, 2024 9:37am subcutaneously; 1:4 carb ratio ac tid. 1:15 corrective scale ac tid (hs if >200 half dose) as directed; (expect up to 60 units/day)Start: 10-19-2023 End: 43-29-3034Lzbrkpm Lispro 100 unit/mL solution Discontinued 0 SUBCUT .COMPLEX October 19, 2023 12:27pm December 15, 2023 2:48pm subcutaneously; 1:4 carb ratio ac tid. 1:15 corrective scale ac tid (hs if >200 half dose) as directed; (expect up to 60 units/day)Start: 10-19-2023 End: 53-12-9717Bztfqfv Lispro 100 unit/mL solution Discontinued 0 SUBCUT .COMPLEX October 19, 2023 11:27am December 15, 2023 1:48pm subcutaneously; 1:4 carb ratio ac tid. 1:15 corrective scale ac tid (hs if >200 half dose) as directed; (expect up to 60 units/day)Start: 10-19-2023 End: 77-31-1065Kkqbldm Lispro 100 unit/mL solution Discontinued 0 SUBCUT .COMPLEX October 19, 2023 12:00am October 19, 2023 12:28pm subcutaneously; 1:4 carb ratio ac tid. 1:15 corrective scale ac tid (hs if >200 half dose) as directed; (expect up to 60 units/day)Start: 10-19-2023 End: 01-48-2575Zhqhefp Lispro 100 unit/mL solution Discontinued 0 SUBCUT .COMPLEX October 18, 2023 11:00pm October 19, 2023 11:28am subcutaneously; 1:4 carb ratio ac tid. 1:15 corrective scale ac tid (hs if >200 half dose) as directed; (expect up to 60 units/day)lisinopril 30 mg oral tablet (20 sources)Angiotensin Converting Enzyme InhibitorStart: 06-16-2023 End: 69-08-9787rldp 1 tablet by mouth once dailyLisinopril 30 mg tablet Active 30 MG PO Daily October 18, 2023 11:00pm Complies with drug therapy End: 86-53-7274tjyn 1 tablet by mouth in the morninglisinopril 20 MG tablet Take 1 tablet by mouth in the morning. 0 06/16/2023 Discontinued (Dose adjustment) metFORMIN hydrochloride 500 mg oral tablet (20 sources)BiguanideStart: 07-22-2023 End: 56-57-2613kvzc 2 tablets by mouth twice dailyMetformin 500 mg tablet Active 1000 MG PO Twice daily 360 0 November 27, 2024 9:42am Type 2 diabetes mellitus with hyperglycemia Type 2 diabetes mellitus with hyperglycemia FreeTextSi tablets Orally Twice a day; Note: Source Status: Taking; Refills: 3; Qty: 360 Tablet; Provider: Shannon Price Complies with drug therapyStart: 07-22-2023 End: 99-46-6295oiof 2 tablets by mouth twice dailyMetformin Active 1000 MG PO Twice daily 360 July 22, 2023 2:45pm FreeTextSi tablets Orally Twice a day; Note: Source Status: Taking; Refills: 3; Qty: 360 Tablet; Provider: Shannon Berry (8 sources)Start: 63-98-9386BhaCrhlg Verio - Use with One touch verio meter In Vitro 3 times per day for 90 days E11.65 ActiveOneTouch Verio - USE DIRECTED THREE TIMES DAILY for 90 Active0.25 mg, 0.5 mg dose 1.5 ml semaglutide 1.34 mg/ml pen injector (4 sources)Start: 03-25-5786Anyazuf (0.25 or 0.5 MG/DOSE) 2 MG/1.5ML as [...] tablet (18 sources)Serotonin Reuptake InhibitorStart: 06-14-2024 End: 98-21-0924kqeg 1 tablet by mouth once daily as neededTrazodone 100 mg tablet Active 100 MG PO Daily as needed August 21, 2024 8:09am Complies with drugtherapyurea 400 mg/ml topical cream (15 sources)Start: 12-01-2023 End: 97-76-0917zyjb (Carmol) 40 % cream APPLY TO THE [...] oral tablet (2 sources)Opioid AgonistStart: 05-17-2023 End: 29-08-3470rokf 1 tablet by mouth every eight hours as needed for pain oxyCODONE-acetaminophen (Percocet) 5-325 MG tablet TAKE 1 TABLET BY MOUTH EVERY 8 HOURS FOR 7 DAYS NEEDED FOR PAIN 0 05/17/2023 06/16/2023 Discontinued (Therapy completed)ampicillin 2000 mg / sulbactam 1000 mg injection (4 sources)Penicillin-class Antibacterial, beta Lactamase InhibitorStart: 06-14-2024 End: 16-49-1526bzxfop 3 g by intramuscular injection every six [...] day(s) Not-TakingInsulin Glargine-Yfgn (14 sources)Start: 02-28-2024 End: 34-24-8510Qzedkvs Glargine-Yfgn 100 unit/mL solution Discontinued 44 UNIT SUBCUT Twice daily 100 3 February 28, 2024 8:56am July 24, 2024 3:24pm Type 2 diabetes mellitus with hyperglycemia Type 2 diabetes mellitus with hyperglycemiaStart: 02-28-2024 End: 44-75-3401Ahsbqqz Glargine-Yfgn 100 unit/mL solution Discontinued 44 UNIT SUBCUT Twice daily 100 February 28, 2024 9:56am July 24, 2024 4:24pmStart: 10-19-2023 End: 22-84-1848Vsuyjot Glargine-Yfgn 100 unit/mL solution Discontinued 44 UNIT SUBCUT Twice daily 100 3 October 11:27am February 28, 2024 8:56am Type 2 diabetes mellitus with hyperglycemia Type 2 diabetes mellitus with hyperglycemiaStart: 10-19-2023 End: 96-08-0277Bkjgszh Glargine-Yfgn 100 unit/mL solution Discontinued 44 UNIT SUBCUT Twice daily 100 October 19, 2023 12:27pm February 28, 2024 9:56amStart: 10-19-2023 End: 41-82-3293Muhkclq Glargine-Yfgn 100 unit/mL solution Discontinued 44 UNIT SUBCUT Twice daily October 19, 2023 11:04am October 19, 2023 11:27am Type 2 diabetes mellitus with hyperglycemia Type 2 diabetes mellituswith hyperglycemia Start: 10-19-2023 End: 34-28-1692Xhiipvx Glargine-Yfgn 100 unit/mL solution Discontinued 44 UNIT SUBCUT Twice daily October 19, 2023 12:04pm October 19, 2023 12:27pmStart: 10-19-2023 End: 46-79-1357Mieuqlm Glargine-Yfgn 100 unit/mL solution Discontinued 40 UNIT SUBCUT Twice daily October 19, 2023 10:40am October 19, 2023 11:05am Type 2 diabetes mellitus with hyperglycemia Type 2 diabetes mellituswith hyperglycemia Start: 10-19-2023 End: 44-36-3836Sxdnuly Glargine-Yfgn 100 unit/mL solution Discontinued 40 UNIT SUBCUT Twice daily October 19, 2023 11:40am October 19, 2023 12:05pmStart: 07-26-2023 End: 04-00-0192Oqufgup Glargine-Yfgn 100 unit/mL solution Discontinued 46 UNIT SUBCUT Twice daily 90 90 0 July 26, 2023 2:32pm October 19, 2023 10:40am Type 2 diabetes mellitus with hyperglycemia Type 2 diabetes mellitus with hyperglycemiaStart: 07-26-2023 End: 79-07-7231Kiykhyx Glargine-Yfgn 100 unit/mL solution Discontinued 46 UNIT SUBCUT Twice daily 90 90 July 26, 2023 3:32pm October 19, 2023 11:40amStart: 07-26-2023 End: 77-43-6125Emnoauo Glargine-Yfgn 100 unit/mL solution Discontinued 46 UNIT SUBCUT Twice daily 90 90 0 July 26, 2023 8:10am July 26, 2023 2:33pm Type 2 diabetes mellitus with hyperglycemia Type 2 diabetes mellitus with hyperglycemiaStart: 07-26-2023 End: 87-98-7204Bzcjudr Glargine-Yfgn 100 unit/mL solution Discontinued 46 UNIT SUBCUT Twice daily 90 90 July 26, 2023 9:10am July 26, 2023 3:33pmStart: 07-26-2023 End: 57-51-8487Yrngmss Glargine-Yfgn 100 unit/mL solution Discontinued UNIT SUBCUT July 25, 2023 11:00pm July 26, 2023 8:15am FreeTextSig: INJECT 46 UNITS SQ bid; Note: Source Status: Increase(titrate up to max 50 units/day); Provider: Shannon Maza KStart: 07-26-2023 End: 83-34-8777Symzirh Glargine-Yfgn 100 unit/mL solution Discontinued UNIT SUBCUT July 26, 2023 12:00am July 26, 2023 9:15am FreeTextSig: INJECT 46 UNITS SQ bid; Note: Source Status: Increase(titrate up to max 50 units/day); Provider: Shannon Maza Kinsulin glargine-yfgn (Semglee-yfgn) 100 UNIT/ML injection (2 sources)Start: 10-21-2023 End: 48-78-6346hmwqkzj glargine-yfgn (Semglee-yfgn) 100 UNIT/ML injection INJECT 44 UNITS UNDER THE SKIN TWICE DAILY. MAX DAILY DOSE 100 UNITS 10/21/2023 01/19/2024 Discontinued (Duplicate order)Insulin Glargine-Yfgn 100 unit/mL solution (14 sources)Start: 02-28-2024 End: 06-35-7424Lxgizmc Glargine-Yfgn 100 unit/mL solution Discontinued 44 UNIT SUBCUT Twice daily February 28, 2024 9:56am July 24, 2024 4:24pmStart: 49-96-4748Hxjumdl Glargine-Yfgn 100 unit/mL solution Active 44 UNIT SUBCUT Twice daily February 2748:56amStart: 10-19-2023 End: 01-61-9540Nmganoy Glargine-Yfgn 100 unit/mL solution Discontinued 44 UNIT SUBCUT Twice daily October 19, 2023 12:27pm February 28, 2024 9:56amStart: 10-19-2023 End: 37-26-8836Tkxskrv Glargine-Yfgn 100 unit/mL solution Discontinued 44 UNIT SUBCUT Twice daily October 19, 2023 11:27am February 28, 2024 8:56amStart: 10-19-2023 End: 56-55-0888Gktfppg Glargine-Yfgn 100 unit/mL solution Discontinued 44 UNIT SUBCUT Twice daily October 19, 2023 12:04pm October 19, 2023 12:27pmStart: 10-19-2023 End: 61-03-3319Gvwgcss Glargine-Yfgn 100 unit/mL solution Discontinued 44 UNIT SUBCUT Twice daily October 19, 2023 11:04am October 19, 2023 11:27amStart: 10-19-2023 End: 24-56-9106Tbhxwsi Glargine-Yfgn 100 unit/mL solution Discontinued 40 UNIT SUBCUT Twice daily October 19, 2023 11:40am October 19, 2023 12:05pmStart: 10-19-2023 End: 82-20-4007Oyxwwex Glargine-Yfgn 100 unit/mL solution Discontinued 40 UNIT SUBCUT Twice daily October 19, 2023 10:40am October 19, 2023 11:05amStart: 07-26-2023 End: 17-47-2295Naqpngs Glargine-Yfgn 100 unit/mL solution Discontinued 46 UNIT SUBCUT Twice daily 90 90 July 26, 2023 3:32pm October 19, 2023 11:40amStart: 07-26-2023 End: 61-37-4575Bynoexc Glargine-Yfgn 100 unit/mL solution Discontinued 46 UNIT SUBCUT Twice daily 90 90 July 26, 2023 2:32pm October 19, 2023 10:40amStart: 07-26-2023 End: 13-03-9625Fpwlrbr Glargine-Yfgn 100 unit/mL solution Discontinued 46 UNIT SUBCUT Twice daily 90 90 July 26, 2023 9:10am July 26, 2023 3:33pmStart: 07-26-2023 End: 06-26-3079Neuvidz Glargine-Yfgn 100 unit/mL solution Discontinued 46 UNIT SUBCUT Twice daily 90 90 July 26, 2023 8:10am July 26, 2023 2:33pmStart: 07-26-2023 End: 92-54-5006Hgddjwb Glargine-Yfgn 100 unit/mL solution Discontinued UNIT SUBCUT July 26, 2023 12:00am July 26, 2023 9:15am FreeTextSig: INJECT 46 UNITS SQ bid; Note: Source Status: Increase(titrate up to max 50 units/day); Provider: Shannon Maza KStart: 07-26-2023 End: 51-52-4732Qkspdqt Glargine-Yfgn 100 unit/mL solution Discontinued UNIT SUBCUT July 25, 2023 11:00pm July 26, 2023 8:15am FreeTextSig: INJECT 46 UNITS SQ bid; Note: Source Status: Increase(titrate up to max 50 units/day); Provider: Shannon Maza Kinsulin lispro 100 unt/ml injectable solution (20 sources)Insulin AnalogStart: 79-52-0462Dkrtnru Lispro Active 0 SUBCUT .COMPLEX January 26, 2024 10:37am subcutaneously; 1:4 carb ratio ac tid. 1:15 corrective scale ac tid (hs if >200 half dose) as directed; (expect up to 60 units/day)Start: 12-15-2023 End: 02-13-7604Umqzqot Lispro Discontinued 0 SUBCUT .COMPLEX 60 December 15, 2023 2:47pm January 26, 2024 10:37am subcutaneously; 1:4 carb ratio ac tid. 1:15 corrective scale ac tid (hs if >200 half dose) as directed; (expect up to 60 units/day)Start: 10-19-2023 End: 60-23-6335Befneti Lispro Discontinued 0 SUBCUT .COMPLEX 60 October 19, 2023 12:27pm December 15, 2023 2:48pm subcutaneously; 1:4 carb ratio ac tid. 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 1:15 corrective scale ac tid (hs if >200 half dose) as directed; (expect up to 60 units/day)Start: 10-19-2023 End: 56-47-5639Wclmrun Lispro Discontinued 0 SUBCUT .COMPLEX October 19, 2023 12:00am October 19, 2023 12:28pm subcutaneously; 1:4 carb ratio ac tid. 1:15 corrective scale ac tid (hs if >200 half dose) as directed; (expect up to 60 units/day)Start: 25-24-5475Baxjicz Lispro Active 0 SUBCUT .COMPLEX October 19, [...] oral tablet (4 sources)Oxazolidinone AntibacterialStart: 06-14-2024 End: 04-36-9942iqpm 1 tablet by mouth twice dailyLinezolid 600 mg tablet Discontinued 600 MG PO Twice daily June 14, 2024 12:00am August 21, 2024 8:09am3 ml liraglutide 6 mg/ml pen injector (20 sources)GLP-1 Receptor AgonistStart: 10-19-2023 End: 63-18-4972Rinmpylxnre (Victoza 3-Connor) 0.6 mg/0.1 mL (18 mg/3 mL) pen injector Discontinued 0 SUBCUT .COMPLEX 27 0 August 21, 2024 8:35am October 25, 2024 7:44am Type 2 diabetes mellitus with hyperglycemia 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 with 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 inject 1.8mg once daily Start: 33-34-4715clasiy 1.8 mg by subcutaneous injection once dailyVictoza 18 MG/3ML 1.8mg Subcutaneous daily for 84 days May, Activepen needle, diabetic (Merline 2nd Gen Pen Needle) (2 sources)Start: 11-27-2024 End: 99-02-7079qpf needle, diabetic (Merline 2nd Gen Pen Needle) Discontinued .Route November 26, 2024 11:00pm November 27, 2024 9:42amStart: 35-97-9677hit needle, diabetic (Merline 2nd Gen Pen Needle) Active .Route November 27, 2024 12:00am Problems Active Problems Problem ClassificationProblemDateDocumented DateEpisodic/ChronicAcquired foot deformities (20 sources)Hallux rigidus, unspecified foot; Translations: [Hallux rigidus, left foot]Onset: [id number] foot deformities (1 source)Flat foot [pes planus] (acquired), left foot; Translations: [FLAT FOOT PES PLANUS ACQ LT FOOT]Onset: 64-81-8951XkcsvqoqIfabetlwkxjrdv/social admission (15 sources)Dietary counseling and surveillance; Translations: [Patient encounter status]Onset: 01-06-2022 Resolved: 81-37-7890CpjlomndMarernday infection; unspecified site (4 sources)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; Translations: [Infection with drug-resistant microorganisms, unspecified, with multiple drug resistance]38-92-1046PnhbuvfiMmvsotz ulcer of skin (20 sources)Non-pressure chronic ulcer of other part of unspecified foot with unspecified severity; Translations: [Non-pressure chronic ulcer of other part of left foot with fat layer exposed]Onset: 05-25-2022 Resolved: 684035-73-9056TdsnyulHzexujio mellitus with complications (20 sources)Hyperglycemia due to type 2 diabetes mellitus; Translations: [Type 2 diabetes mellitus with hyperglycemia]Onset: 01-06-2022 Resolved: 86-85-3868XtwbipcPsgvnqcn mellitus without complication (5 sources)Diabetes mellitus; Translations: [Type 2 diabetes mellitus without complications]31-14-7279EawfuozZpzkufdcg of lipid metabolism (20 sources)Hyperlipidemia; Translations: [Hyperlipidemia, unspecified]Onset: 01-06-2022 Resolved: 84-47-8112AwehbvoQkpcaimrr hypertension (20 sources)Hypertensive disorder; Translations: [Essential (primary) hypertension]Onset: 01-06-2022 Resolved: 11-66-7693AvmmaynNqbqmlehhgiym mental health disorders (4 sources)Depressed mood; Translations: [Other symptoms and signs involving emotional state]32-18-5829MocwwysqDcqjfzpzfts deficiencies (9 sources)Vitamin D deficiency; Translations: [Vitamin D deficiency, unspecified]ChronicNutritional deficiencies (20 sources)Deficiency of other specified B group vitamins; Translations: [Cobalamin deficiency]Onset: 01-06-2022 Resolved: 20-56-2200FyijwzxzDjxf wounds of extremities (20 sources)Traumatic amputation of toe; 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, initial encounter]Onset: 10-02-2022 13-20-9094FjxhgucKkaj wounds of extremities (20 sources)Traumatic amputation of toe; Translations: [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, sequela]Onset: [id number] Open wounds of extremities (19 sources)Unspecified open wound, unspecified foot, initial encounter; Translations: [Injury of left foot]EpisodicOsteoarthritis (20 sources)Arthritis of left foot; Translations: [Primary osteoarthritis, left ankle and foot]Onset: 905569-45-4269ZxxbvumZbdnn aftercare (15 sources)Long-term current use of insulin; Translations: [senior living (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]75-56-7207FjyrueefLsole aftercare (4 sources)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 (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Onset: 01-06-2022 Resolved: 19-40-2660CybezqpxQrrli aftercare (3 sources)Drug therapy finding; Translations: [senior living (current) use of antibiotics]54-49-4686DroqjigeSikgr aftercare (1 source)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; Translations: [Long-term (current) use of antibiotics]45-59-4945AalwnxegXvqow bone disease and musculoskeletal deformities (5 sources)Acquired absence of right foot; Translations: [ACQUIRED ABSENCE OF RIGHT FOOT]Onset: 01-68-0059ArpsocoZcxbq bone disease and musculoskeletal deformities (1 source)Acquired absence of other toe(s), unspecified sideEpisodicOther bone disease and musculoskeletal deformities (2 sources)Absence of toe; Translations: [Acquired absence of other toe(s), unspecified side]37-82-5216LczziwwzTzppg connective tissue disease (4 sources)Pain in left foot; Translations: [PAIN IN LEFT FOOT]Onset: 10-06-2022 EpisodicOther nutritional; endocrine; and metabolic disorders (9 sources)Metabolic syndrome X; Translations: [Metabolic syndrome]ChronicOther nutritional; endocrine; and metabolic disorders (20 sources)Body mass index 40+ - severely obese; Translations: [Body mass index (BMI) 50.0-59.9, adult]27-29-2981MvpgvkaPinbw nutritional; endocrine; and metabolic disorders (1 source)Body mass index (BMI) 45.0-49.9, adultOnset: 01-06-2022 Resolved: 08-73-9324TmkoxemCmnbv nutritional; endocrine; and metabolic disorders (6 sources)Body mass index (BMI) 50.0-59.9, adult; Translations: [Body Mass Index 50.0-59.9, adult]ChronicOther nutritional; endocrine; and metabolic disorders (1 source)Morbid (severe) obesity due to excess calories; Translations: [MORBID SEVERE OBES D/T EXCESS JIMMY]Onset: 74-82-9616VlvsmnwBixvm nutritional; endocrine; and metabolic disorders (20 sources)Lipoprotein deficiency disorder; Translations: [Lipoprotein deficiency]Onset: 893165-83-4712LdiippqUglxb nutritional; endocrine; and metabolic disorders (20 sources)Morbid obesity; Translations: [Morbid (severe) obesity due to excess calories]Onset: 483119-96-1051ZmzojjzSvirm skin disorders (5 sources)Nail dystrophy; Translations: [NAIL DYSTROPHY]Onset: 11-20-2021 EpisodicOther skin disorders (1 source)Changes in skin textureEpisodicOther upper respiratory disease (2 sources)Nasal congestion; Translations: [Nasal congestion]72-86-0702Bzkveqod Residual codes; unclassified (4 sources)Insomnia; Translations: [Insomnia, unspecified]60-24-9849Wclnausf Unclassified (3 sources)Patient on antidepressant monitoring planOnset: Unclassified (3 sources)Baseline PHQ-9Onset: Past or Other Problems Problem ClassificationProblemDateDocumented DateEpisodic/ChronicComplications of surgical procedures or medical care (5 sources)Disruption of wound, unspecified, initial encounter; Translations: [DISRUPTION WOUND UNS INITIAL ENC]Onset: 74-36-9710UfiswninRoqyybvps arthritis and osteomyelitis (except that caused by tuberculosis or sexually transmitted di sease) (20 sources)Osteomyelitis of right foot; Translations: [Osteomyelitis, unspecified]Onset: 10-02-2022 Resolved: 131034-91-7757TobuhrtEcbxo infections; including parasitic (20 sources)Personal history of other infectious and parasitic diseases; Translations: [History of COVID-19]Onset: 05-13-2020 Resolved: 277727-99-4613IssikclqYkfxc non-traumatic joint disorders (1 source)Pain in left ankle and joints of left foot; Translations: [PAIN IN LEFT ANKLE]Onset: 28-69-8800SgenbunvBgfcl nutritional; endocrine; and metabolic disorders (20 sources)H/O: Disorder; Translations: [Personal history of other endocrine, nutritional and metabolic disease]Onset: 04-13-2018 Resolved: 526233-78-2323IeifwvrcLrick skin disorders (5 sources)Corns and callosities; Translations: [CORNS AND CALLOSITIES]Onset: 14-83-6358QllvufwdNjxwdjbvxqk injury; contusion (4 sources)Blister (nonthermal), right foot, initial encounter; Translations: [BLISTER NONTHERMAL RT FOOT INITIAL]Onset: 28-42-6487Nxqdqqbi Results Test NameValueInterpretationReference TizunOgfpnuqzKfY5l HPLC (Bld) [Mass fraction]Ordered By: Link Ortega on 57-12-7792JwG1j (Bld) [Mass fraction]7.9 % [facility] HospitalNo Panel InformationOrdered By: Link Ortega on 80-98-7285Yhiwyyj Yihfwmw192BlwcggovcAultman HospitalALBUMIN, RANDOM URINE W/CREATININEon 42-82-6093YQQEMQO, URINE3.1 mg/dLNormalSee Note:[facility] DiagnosticsComment on above:Result Comment: Reference Range: Reference Range Not establishedPerformed By: #### 33799, 6517, 927, 44795, 7600 #### [facility] [address] , [address] [place] [address] Change Of Address Clerk: Mauro Handley MD #### [id number] #### [facility] [place] [address] Change Of Address Clerk: Emeli Kohli FlatiALBUMIN/CREATININE RATIO, RANDOM URINE61 mg/g [...] be within a diagnostic category.Performed By: #### 51266, 6517, 927, 70189, 7600 #### [facility] [address] [place] [address], [address] [place], [place] [address] Change Of Address Clerk: Mauro Handley MD #### 27376 #### [facility] [address] [place] [address] Change Of Address Clerk: Emeli Kohli FlatiCreatinine (U) [Mass/Vol]51 mg/lUPjqcuf67-874 [facility] DiagnosticsComment on above:Performed By: #### 24342, 6517, 927, 42608, 7600 #### [facility] [address] [place] [address], [address] [place] [address] Change Of Address Clerk: Mauro Handley MD #### 17119 #### [facility] [address] [place] [address] Change Of Address Clerk: Emeli StockiCOMPREHENSIVE METABOLIC PANELon 02-01-2025 Albumin [Mass/Vol]4.4 g/dLNormal3.6-5.1Quest DiagnosticsComment on above: Performed By: #### 57215, 6517, 927, 37853, 7600 #### [facility] [address], [address] [place] [address] Change Of Address Clerk: Mauro Handley MD #### 52490 #### [facility] [address] [place] [address] Change Of Address Clerk: Emeli StockiAlbumin/Globulin [Mass ratio]1.6 {ratio}Normal 1.0-2.5Quest DiagnosticsComment on above:Performed By: #### 23592, 6517, 927, 58680, 7600 #### [facility] [address], [address] [place], [place] [address] Change Of Address Clerk: Mauro Handley MD #### 19169 #### [facility]-[address] [address] Change Of Address Clerk: Emeli StockiALP [Catalytic activity/Vol]113 U/LNormal 36-130Quest DiagnosticsComment on above:Performed By: #### 79869, 6517, 927, 72332, 7600 #### [facility] [address], [address] [place] [address] Change Of Address Clerk: Mauro Handley MD #### 12479 #### [facility]-[address] [address] Change Of Address Clerk: Emeli Kohli FlatiALT [Catalytic activity/Vol]26 U/LNormal9-46 Quest DiagnosticsComment on above:Performed By: #### 85626, 6517, 927, 13599, 7600 #### [facility] [address], [address] [place] [address] Change Of Address Clerk: Mauro Handley MD #### 35929 #### [facility] [address] [place] [address] Change Of Address Clerk: Emeli Kohli FlatiAST [Catalytic activity/Vol]21 U/LHctnts47-88 Quest DiagnosticsComment on above:Performed By: #### 09274, 6517, 927, 66762, 7600 #### [facility] [address], [address] [place] [address] Change Of Address Clerk: Mauro Handley MD #### 97166 #### [facility] [address] [place] [address] Change Of Address Clerk: Emeli Kohli FlatiBilirubin [Mass/Vol]0.5 mg/dLNormal0.2-1.2 Quest DiagnosticsComment on above:Performed By: #### 05352, 6517, 927, 09567, 7600 #### [facility] [address], [address] [place] [address] Change Of Address Clerk: Mauro Handley MD #### 41961 #### [facility]-[place] [address] Change Of Address Clerk: Emeli Kohli FlatiBUN/CREATININE RATIOSEE NOTE:Normal6-22Quest DiagnosticsComment on above:Result Comment: Not Reported: BUN and Creatinine are within reference range.Performed By: #### 87668, 6517, 927, 02057, 7600 #### [facility] [address], [address] [place], [place] [address] Change Of Address Clerk: Mauro Handley MD #### 85114 #### [facility] [address] [place], [place] [address] Change Of Address Clerk: Emeli Kohli FlatiCalcium [Mass/Vol]9.2 mg/dLNormal8.6-10.3Quest DiagnosticsComment on above:Performed By: #### 64000, 6517, 927, 74784, 7600 #### [facility] [address], [address] [place] [address] Change Of Address Clerk: Mauro Handley MD #### 36373 #### [facility] [address] [place] [address] Change Of Address Clerk: Emeli Kohli FlatiChloride [Moles/Vol]103 mmol/EKmgqqq89-013 Quest DiagnosticsComment on above:Performed By: #### 56862, 6517, 927, 48500, 7600 #### [facility] [address], [address] [place] [address] Change Of Address Clerk: Mauro Handley MD #### 19258 #### [facility] [place] [address] Change Of Address Clerk: Emeli StockiCO2 [Moles/Vol]26 mmol/ZNrottb50-56Fjseo DiagnosticsComment on above:Performed By: #### 20856, 6517, 927, 10565, 7600 #### [facility] [address], [address] [place], [place] [address] Change Of Address Clerk: Mauro Handley MD #### 03915 #### [facility]-[place] [address] Change Of Address Clerk: Emeli StockiCreatinine [Mass/Vol]0.96 mg/dLNormal0.60-1.29 Quest DiagnosticsComment on above:Performed By: #### 68925, 6517, 927, 60744, 7600 #### [facility] [address], [address] [place] [address] Change Of Address Clerk: Mauro Handley MD #### 20035 #### [facility] [address] Change Of Address Clerk: Emeli StockiGFR/1.73 sq M.predicted among non-blacks MDRD (S/P/Bld) [Vol rate/Area]99 mL/min/{1.73_m2}Normal> OR = 60[facility] Comment on above:Performed By: #### 81889, 6517, 927, 24750, 7600 #### [facility] [address], [address] [place] [address] Change Of Address Clerk: Mauro Handley MD #### 48834 #### [facility] [address] Change Of Address Clerk: Emeli Kohli FlatiGlobulin (S) [Mass/Vol]2.8 g/dLNormal1.9-3.7 Quest DiagnosticsComment on above:Performed By: #### 45844, 6517, 927, 64680, 7600 #### [facility] [address], [address] [place] [address] Change Of Address Clerk: Mauro Handley MD #### 19911 #### [facility] [address] [place], [place] [address] Change Of Address Clerk: Emeli Kohli FlatiGlucose [Mass/Vol]89 mg/lKQbfwmt10-08Jgbae DiagnosticsComment on above:Result Comment: Fasting reference intervalPerformed By: #### 08038, 6517, 927, 23526, 5600 #### [facility] [address], [address] [place] [address] Change Of Address Clerk: Mauro Handley MD #### 61555 #### [place] [address] Change Of Address Clerk: Emeli Kohli FlatiPotassium [Moles/Vol]4.6 mmol/LNormal3.5-5.3 Quest DiagnosticsComment on above:Performed By: #### 79411, 6517, 927, 66832, 8550 #### [facility] [address], [address] [place] [address] Change Of Address Clerk: Mauro Handley MD #### 18480 #### [facility]-[place] [address] Change Of Address Clerk: Emeli Kohli FlatiProtein [Mass/Vol]7.2 g/dLNormal6.1-8.1Quest DiagnosticsComment on above:Performed By: #### 75115, 6517, 927, 50527, 1890 #### [facility] [address], [address] [place] [address] Change Of Address Clerk: Mauro Handley MD #### 14950 #### [facility] [address] [place] [address] Change Of Address Clerk: Emeli StockiSodium [Moles/Vol]137 mmol/LBakfnr201-985Eozhn DiagnosticsComment on above:Performed By: #### 54406, 6517, 927, 19772, 7600 #### [facility] [address], [address] [place], [place] [address] Change Of Address Clerk: Mauro Handley MD #### 29713 #### [facility] [address] [place] [address] Change Of Address Clerk: Emeli StockiUrea nitrogen [Mass/Vol]20 mg/dLNormal- Quest DiagnosticsComment on above:Performed By: #### 65572, 6517, 927, 90473, 7600 #### [facility] [address], [address] [place], [place] [address] Change Of Address Clerk: Mauro Handley MD #### 13124 #### [facility] [address] [place] [address] Change Of Address Clerk: Emeli Parra ACCOUNT TRACKINGon 88-61-3318WULDPRAQ WYNOT ACCOUNTNormalQuest DiagnosticsComment on above:Result Comment: We were unable to identify an account number for the order submitted. If you do not have a [facility] account number or if your account information needs to be updated please call [phone] ([phone]) for assistance. To prevent delays in testing and processing of your orders please provide the following information for this order and with every additional order submitted: [facility] account number and account name Client address Client phone and fax number NPI number of ordering physician along with the physician name.Performed By: #### 59178, 6517, 927, 04843, 7600 #### [facility] [address], [address] [place] [address] Change Of Address Clerk: Mauro Handley MD #### 72388 #### [facility] [address] [place] [address] Change Of Address Clerk: Emeli SOLOMONOur Lady of Mercy [facility] 37-92-7865Zyugyjwyqab [Mass/Vol]96 mg/dLNormal<200Quest DiagnosticsComment on above:Order Comment: FASTING:YES FASTING: YESPerformed By: #### 01208, 6517, 927, 48419, 7600 #### [facility] [address], [address] [place] [address] Change Of Address Clerk: Mauro Handley MD #### 06778 #### [facility] [address] [place] [address] Change Of Address Clerk: Emeli StockiCholesterol in HDL [Mass/Vol]24 mg/dLLow> OR = 40Quest DiagnosticsComment on above:Order Comment: FASTING:YES FASTING: YESPerformed By: #### 71745, 6517, 927, 99136, 7600 #### [facility] [address], [address] [place] [address] Change Of Address Clerk: Mauro Handley MD #### 51990 #### [facility] [address] [place] [address] Change Of Address Clerk: Emeli StockiCholesterol in LDL [Mass/Vol]49 mg/dLNormal [facility] [...] LDL-C. Nick LOUIS et al. SOFIE. 2013;310(19): 7287-0668 (http://education.[employer]/faq/IUW549)Performed By: #### 08612, 6517, 927, 39689, 7600 #### [facility] [address], [address] [place], [place] [address] Change Of Address Clerk: Mauro Handley MD #### 31464 #### [facility] [address] [place] [address] Change Of Address Clerk: Emeli StockiCholesterol.total/Cholesterol in HDL [Mass ratio]4.0 {ratio}Normal<5.0Quest DiagnosticsComment on above:Order Comment: FASTING:YES FASTING: YESPerformed By: #### 76134, 6517, 927, 13348, 7600 #### [facility] [place] [address] [facility], [address] [place], [place] [address] Change Of Address Clerk: Mauro Handley MD #### 51606 #### [facility] [address] [place] [address] Change Of Address Clerk: Emeli Lang HDL TVHIBXLLLMD61 mg/dL (calc)Normal<130 [facility] DiagnosticsComment on above:Order Comment: FASTING:YES FASTING: YESResult Comment: For patients with diabetes plus 1 major ASCVD risk factor, treating to a non-HDL-C goal of <100 mg/dL (LDL-C of <70 mg/dL) is considered a therapeutic option.Performed By: #### 34740, 6517, 927, 17710, 7600 #### [facility] [address], [address] [place] [address] Change Of Address Clerk: Mauro Handley MD #### 26046 #### [facility] [address] [place] [address] Change Of Address Clerk: Emeli StockiTriglyceride [Mass/Vol]147 mg/dLNormal<150 [facility] DiagnosticsComment on above:Order Comment: FASTING:YES FASTING: YESPerformed By: #### 17085, 6517, 927, 82047, 7600 #### [facility] [address], [address] [place], [place] [address] Change Of Address Clerk: Mauro Hadnley MD #### 65469 #### [facility] [address] [place] [address] Change Of Address Clerk: Emeli HamiltonH W/REFLEX TO FT4on 15-42-6109LCA W/REFLEX TO FT41.71 mIU/LNormal0.40-4.50Quest DiagnosticsComment on above:Result Comment: Your request to have a duplicate copy faxed has been acknowledged. Queued to: [id number] By: #### 48345, 6517, 927, 43142, 7600 #### [facility] [address] [facility], [address] Change Of Address Clerk: Mauro Handley MD #### 19247 #### [facility] [place] [address] Change Of Address Clerk: Emeli StockiVITAMIN B12on 82-01-3780Zfawkxpce (Vitamin B12) [Mass/Vol]450 pg/cIEymdni346-1845Qcaxd DiagnosticsComment on above: Performed By: #### 48232, 6517, 927, 70991, 7600 #### [facility] [address], [address] [place] [address] Change Of Address Clerk: Mauro Handley MD #### 78662 #### [facility] [address] [place] [address] Change Of Address Clerk: Emeli StockiGlomerular filtration rate (GFR) estimation in non- AmericanOrdered By: Link Ortega on 80-94-6750JEY/1.73 sq M.predicted among non-blacks MDRD (S/P/Bld) [Vol rate/Area]99 mL/min/{1.73_m2} [facility] HospitalLaboratory - Chemistry and Chemistry - challengeOrdered By: Link Ortega on 28-48-6751Fzfnkmqtz (Vitamin B12) [Mass/Vol]450 pg/mLAultman HospitalCreatinine (U) [Mass/Vol]51 mg/dLAultman HospitalALP [Catalytic activity/Vol]113 U/L [facility] HospitalALT [Catalytic activity/Vol]26 U/LFMercy Health Fairfield HospitalAST [Catalytic activity/Vol]21 U/[facility] HospitalBilirubin [Mass/Vol]0.5 mg/dLAultman Hospital Calcium [Mass/Vol]9.2 mg/dLAultman HospitalChloride [Moles/Vol] 103 mmol/LFMercy Health Fairfield HospitalCO2 [Moles/Vol]26 mmol/[facility] HospitalCreatinine [Mass/Vol]0.96 mg/dLAultman HospitalGlucose [Mass/Vol]89 mg/dLAultman HospitalPotassium [Moles/Vol]4.6 mmol/LFMercy Health Fairfield HospitalProtein [Mass/Vol]7.2 g/dL [facility] Hospitalodium [Moles/Vol]137 mmol/LFMercy Health Fairfield HospitalUrea nitrogen [Mass/Vol]20 mg/dLAultman Hospital Cholesterol [Mass/Vol]96 mg/dLAultman HospitalCholesterol in HDL [Mass/Vol]24 mg/dLAultman HospitalCholesterol in LDL [Mass/Vol]49 mg/dLAultman HospitalCholesterol.total/Cholesterol in HDL [Mass ratio]4.0 {ratio}[facility]ultman HospitalTriglyceride [Mass/Vol]147 mg/dLAultman HospitalNo Panel InformationOrdered By: Link Ortega on 91-78-8619Vtjxxmj Stimulating Hormone 3rd Gen1.71[facility] HospitalUrine Microalbumin mg/dl3.1FMercy Health Fairfield HospitalUrine Microalbumin/Creatinine Kdpix08CroidgzkkAultman HospitalVLDL Nxoqkzhzubd34 mg/dLAultman HospitalUrine albumin/creatinine ratioOrdered By: Link Ortega on 66-16-1958Aqcdqzs/Creatinine (U) [Ratio]4.4 g/dLAultman HospitalNo Panel Informationon 52-80-9481KSHS FAST CULTURE Acid Fast Culture Specimen has been received and testing has been initiated. [facility] HealthcareACID FAST CULTURENegativeNOMercy Hospital St. LouisACID FAST CULTURENo acid fast bacilli isolated after 6 weeks.[facility] HealthACID FAST CULTUREPerformed at: - [facility]co[facility] HealthcareACID FAST [id number] [place], [place] [id number] HealthcareACID FAST CULTURELab Director: Lalo Everett PhD, Phone: [phone] HealthcareACID FAST SMEAR Acid Fast Smear Negative [facility] HealthcareAFB SPECIMEN PROCESSING AFB Specimen Processing [facility] HealthAFB SPECIMEN PROCESSINGTissue GrindingDriscoll Children's Hospital right foot fascia for culture CLINISYHolston Valley Medical CenterCLINISYNCNo Panel Informationon 00-36-4567ITXNQA (MYCOLOGY) CULTURE Fungus (Mycology) Culture WILL FOLLOW [facility] KirkwoodNGUS (MYCOLOGY) CULTURENo yeast or mold isolated after 4 weeks. [facility] HealthFUNGUS (MYCOLOGY) CULTUREPerformed at: [facility] ReadingFUNGUS (MYCOLOGY) [id number] [place], [place] [id number] HealthFUNGUS (MYCOLOGY) CULTURELab Director: Lalo Everett PhD, Phone: [phone] HealthcareFUNGUS STAIN Fungus Stain [facility] HealthFUNGUS STAINKOH/Calcofluor preparation: no fungus observed.[facility] right foot fascia for culture [facility] right foot ulcer CLINISYNCANAEROBIC CULT, EXTENDED INCUBon 22-17-0753LHKIILYIL CULT, EXTENDED INCUB Anaerobic Cult, Extended Incub NOMS HealthcareANAEROBIC CULT, EXTENDED INCUBSpecimen has been received and testing has been initiated.[facility] HealthcareANAEROBIC CULT, EXTENDED INCUB Organism: Prevotella disiens :[facility] HealthcareANAEROBIC CULT, EXTENDED INCUB *ABNORMAL*NOMS HealthcareANAEROBIC CULT, EXTENDED INCUBScant growthNOMS HealthcareANAEROBIC CULT, EXTENDED INCUBStudies at LabJefferson Memorial [facility] have confirmed theNOMS HealthcareANAEROBIC CULT, EXTENDED [...] NOMS HealthcareANAEROBIC CULT, EXTENDED INCUB O:PREDIS Isolated [facility] HealthcareGRAM STAIN RESULTon 35-43-2505GPFG STAIN RESULT Gram Stain Result NOM HealthcareGRAM STAIN RESULTNo white blood cells seen.[facility] HealthcareGRAM STAIN RESULTNOMD HealthcareGRAM STAIN RESULTNo organisms seenNOMD HealthcareGRAM STAIN RESULTPerformed at: [facility] HealthcareGRAM STAIN RESULT [address] [place], [place] [id number] HealthcareGRAM STAIN RESULTLab Director: Lalo Everett PhD, Phone: [phone] HealthNo Panel Informationon 32-86-3046RFLXGXSJDXGZY HealthcareTISSUE CULTUREon 05-11-2024 TISSUE CULTURE Tissue Culture WILL FOLLOW [facility] HealthTISE CULTUREPhelps HealthTISSUE CULTURESpecimen has been received and testing has been initiated.[facility] HealthcareAEROBIC CULTUREon 01-40-8577GCGTSBI CULTURE Aerobic Culture WILL FOLLOW [facility] HealthAEROBIC CULTUREPhelps HealthAEROBIC CULTUREMixed skin floraNOMD HealthcareANAEROBIC CULTUREon 93-90-6016EHJYALFCJ CULTURE Anaerobic Culture [facility] HealthcareANAEROBIC CULTUREHolding for possible anaerobes.[facility] ANAEROBIC CULTUREOrganism: Prevotella disiens :[facility] HealthcareANAEROBIC CULTURE *ABNORMAL*[facility] HealthcareANAEROBIC CULTURELight growthNOMD HealthcareANAEROBIC CULTUREStudies at [employer] [facility] have confirmed theNOMS HealthcareANAEROBIC CULTUREobservations of others who have demonstrated thatNOMD HealthcareANAEROBIC CULTUREPrevotella, Porphyromonas and Bacteroides speciesNOMercy Hospital St. Louis ANAEROBIC CULTUREother than Bacteroides fragilis group are routinelyNOMD HealthcareANAEROBIC CULTUREsusceptible to Cefoxitin, Chloramphenicol, andNOMD HealthcareANAEROBIC CULTUREMetronidazole and are usually resistant to Penicillin.[facility] HealthcareANAEROBIC CULTUREPrevotella disiensNOMercy Hospital St. Louis ANAEROBIC CULTURE O:PREDIS Isolated [facility] HealthcareGRAM STAIN RESULTon 35-25-5868TOQX STAIN RESULT Gram Stain Result [facility] HealthcareGRAM STAIN RESULTNo white blood cells seen.NOMS HealthcareGRAM STAIN RESULTNOMD HealthcareGRAM STAIN RESULTPositiveNOMD HealthcareGRAM STAIN RESULTPerformed at: [facility] HealthcareGRAM STAIN [id number] [place], [place] [id number] HealthcareGRAM STAIN RESULTLab Director: Lalo Everett PhD, Phone: [phone] HealthcareNo Panel Informationon 30-03-9250TCBYTVOHWPATV HealthcareLon 04-26-2024L Specimen: [id number] Received: 04/26/24 Status: CALEB Gabriel Num: [id number] Spec Type: Surgical Subm Dr: Natanael Feldman DPM, Tissues: A Skin-Other than Cyst, tag, debridement or plastic repair (RT FOOT ULCER) Procedures: Yenny SCOTT/Mary Robles Age/ Patient Sex Location Account Attending Physician Trev Ontiveros 43/M [place] [id number] Natanael Feldman DPM, SPEC NUM: [id number] RECD: 04/26/24 STATUS: CALEB GABRIEL NUM: [id number] MARTHA: 04/26/[address]: Natanael Feldman DPM, MS ENTERED: 04/26/[address] [facility] [address]: Farzana Rene SPEC TYPE: Surgical DEPT: DERRICK PLUNKETT ENTERED BY: [id number] RECV BY: [id number] ORDERED: HE, Gross/Micro L4 ORDERED: HE, Gross/Micro [...] reveal purple-brown to green, softened cut surfaces. [employer] Se[employer] Operator sections are submitted in a single cassette. (1, ss, [id number] A) CPT Codes 43224 Specimen: [id number] Received: 04/26/24 Status: SOUT Req Num: [id number] Spec Type: Surgical Subm Dr: Natanael Feldman DPM, MS Tissues: A Skin-Other than Cyst, tag, debridement or plastic repair (RT FOOT ULCER) Procedures: HE, Gross/Micro L4 Patient: Trev Ontiveros [id number] (Continued) Signed (signature on file) Melanie Roca MD 04/27/[address] [place] [address] Physician GroupXR FOOT RT MIN 3Von 04-26-2024 [place] [address] XRay Report Signed Patient: TREV ONTIVEROS MR#: [id number] : 1980 Acct:[id number] Age/Sex: 43 / M ADM Date: 04/25/24 Loc: Attending Dr: Meena Stinson Ordering Physician: Meena Stinson Date of Service: 04/25/24 Procedure(s): XR foot RT min 3V Accession Number(s): [id number] cc: Meena Stinson; NATALIE HERNANDEZ [place] [id number] Patient Name: TREV ONTIVEROS MRN: [id number] date: 1980 Sex: M Assigned Patient Location: Current Patient Location: MD Accession/Order Number: [id number] Exam Date: 04/25/2024 11:58 Report Date: 04/26/2024 [...] M.D. Signed By: 04/26/24905 DD/ 2 TD/TT: Sec Accountant:ESTRADAHRadiology, Radiologist, - 04/26/2024 [place] [address] XRay Report Signed Patient: TREV ONTIVEROS MR#: [id number] : 1980 Acct:[id number] Age/Sex: 43 / M ADM Date: 04/25/24 Loc: Attending Dr: Meena Stinson Ordering Physician: Meena Stinson Date of Service: 04/25/24 Procedure(s): XR foot RT min 3V Accession Number(s): [id number] cc: Meena Stinson; NATALIE HERNANDEZ [place] [address] Patient Name: TREV ONTIVEROS MRN: [id number] date: 1980 Sex: M Assigned Patient Location: Current Patient Location: MS Accession/Order Number: [id number] Exam Date: 04/25/2024 11:58 Report Date: 04/26/2024 [...] M.D. Signed By: 04/26/24905 DD/ 2 TD/TT: Sec Accountant: CARMENZA HealthcareRadiology Study observation (narrative)[facility] HealthcareXR FOOT RT MIN 3VOrdered By: Radiologist Radiology on 89-59-8064TJWP [employer] Work Phone: XR FOOT RT MIN 3Von 57-48[place] [address] XRay Report Signed Patient: TREV ONTIVEROS MR#: [id number] : 1980 Acct:[id number] Age/Sex: 43 / M ADM Date: 11/02/23 Loc: Attending Dr: Alex Johnson D.P.M. Ordering Physician: Alex Johnson D.P.M. Date of Service: 11/02/23 Procedure(s): XR foot RT min 3V Accession Number(s): [id number] cc: Alex Johnson D.P.M.; NATALIE HERNANDEZ [place] [address] Patient Name: TREV ONTIVEROS MRN: [id number] date: 1980 Sex: M Assigned Patient Location: Current Patient Location: Accession/Order Number: [id number] Exam Date: 11/02/2023 11:13 Report Date: 11/02/2023 [...] Signed By: 11/02/23 1312 DD/ 1310 TD/TT: Sec Accountant:TBHRadiology, Radiologist, MD - 11/02/2023 [place] [address] XRay Report Signed Patient: TREV ONTIVEROS MR#: [id number] : 1980 Acct:[id number] Age/Sex: 43 / M ADM Date: 11/02/23 Loc: Attending Dr: Alex Johnson D.P.M. Ordering Physician: Alex Johnson D.P.M. Date of Service: 11/02/23 Procedure(s): XR foot RT min 3V Accession Number(s): [id number] cc: Alex Johnson D.P.M.; NATALIE HERNANDEZ [place] [address] Patient Name: TREV ONTIVEROS MRN: [id number] date: 1980 Sex: M Assigned Patient Location: Current Patient Location: Accession/Order Number: [id number] Exam Date: 11/02/2023 11:13 Report Date: 11/02/2023 [...] Signed By: 11/02/23 131 DD/ 09 TD/TT: Sec Accountant: CARMENZA HealthcareRadiology Study observation (narrative)CARMENZA HealthcareXR FOOT RT MIN 3VOrdered By: Radiologist Radiology on 45-62-4808VUSW [facility] Work Phone: a1c HEMOGLOBINon 96-60-1080VbB8k (Bld) [Mass fraction] 8.2 %[facility] Other Glucose - FINGER STICKon 77-46-6997Kqbvaiv [Mass/Vol] 170 mg/dLNort Rue89 Other HbA1c (Bld) [Mass fraction]on 43-49-3939M8S HEMOGLOBIN [facility] Other XR FOOT LT MIN 3Von 66-17-[place], [place] [address] XRay Report Signed Patient: TREV ONTIVEROS MR#: [id number] : 1980 Acct:[id number] Age/Sex: 42 / M ADM Date: 04/28/23 Loc: Attending Dr: Natanael Feldman D.P.M. Ordering Physician: Natanael Feldman D.P.M. Date of Service: 04/28/23 Procedure(s): XR foot LT min 3V Accession Number(s): [id number] cc: Natanael Feldman D.P.M.; NATALIE HERNANDEZ [place] [address] Patient Name: TREV ONTIVEROS MRN: [id number] date: 1980 Sex: M Assigned Patient Location: Current Patient Location: Accession/Order Number: [id number] Exam Date: 04/28/2023 10:10 Report Date: 04/28/2023 14:26 At the request of: NATANAEL FELDMAN Procedure: XR foot LT min 3V PROCEDURE: XR foot LT min 3V DATE: 04/28/2023 9:10 AM WEB ASSISTANT COMPARISONS: 02/19/2023 CLINICAL INDICATION: LEFT FOOT BLISTER [...] Signed By: 04/28/23 1429 DD/ 25 TD/TT: Sec Accountant:ESTRADAHRadiology, Radiologist, - 07/14/2023 [place] [address] XRay Report Signed Patient: TREV ONTIVEROS MR#: [id number] : 1980 Acct:[id number] Age/Sex: 42 / M ADM Date: 04/28/23 Loc: Attending Dr: Natanael Feldman D.P.M. Ordering Physician: Natanael Feldman D.P.M. Date of Service: 04/28/23 Procedure(s): XR foot LT min 3V Accession Number(s): [id number] cc: Natanael Feldman D.P.M.; NATALIE HERNANDEZ [place] [address] Patient Name: TREV ONTIVEROS MRN: [id number] date: 1980 Sex: M Assigned Patient Location: Current Patient Location: Accession/Order Number: [id number] Exam Date: 04/28/2023 10:10 Report Date: 04/28/2023 14:26 At the request of: NATANAEL FELDMAN Procedure: XR foot LT min 3V PROCEDURE: XR foot LT min 3V DATE: 04/28/2023 9:10 AM WEB ASSISTANT COMPARISONS: 02/19/2023 CLINICAL INDICATION: LEFT FOOT BLISTER [...] Signed By: 04/28/23 1429 DD/ 25 TD/TT: Sec Accountant: CARMENZA HealthcareRadiology Study observation (narrative)CARMENZA HealthcareXR FOOT LT MIN 3VOrdered By: Radiologist Radiology on 08-75-4415MY[facility] Work Phone: a1c HEMOGLOBINon 06-64-1688EvB2y (Bld) [Mass fraction] 8.9 %[facility] Other Glucose - FINGER STICKon 89-09-1498Arcssuo [Mass/Vol] 201 mg/dLNort Rue89 Other HbA1c (Bld) [Mass fraction]on 87-01-6386X7V HEMOGLOBIN [facility] Other PROF CHEM 8 (BAS METB)on 36-39-7067Buixk gap [Moles/Vol]14.3 mmol/LNormalThe [facility] TrumbullComment on above:Performed By: #### BMP #### [facility] [address] [place] [address] [address] Lauri ToddCalcium [Mass/Vol]9.4 mg/dLNormal8.5-10.1The [facility] Comment on above:Performed By: #### BMP #### [facility] [address] [place] [address] [address] Lauri ToddChloride [Moles/Vol]101 mmol/ZBmhzjp07-016Nlh [facility] Comment on above:Performed By: #### BMP #### [facility] [address] [place] [address] [address] Lauri ToddCO2 [Moles/Vol]26.2 mmol/CUmnkuh85.0-32.0[facility] Comment on above:Performed By: #### BMP #### [facility] [address] [place] [address] [address] Lauri ToddCreatinine [Mass/Vol]0.90 mg/dLNormal0.70-1.30The [facility] TrumbullComment on above:Performed By: #### BMP #### [facility] [address] [place] [address] [address] Lauri DumontGFR-AF RWANDAN>60Normal>=60The [facility] TrumbullComment on above:Performed By: #### BMP #### [facility] [address] [place] [address] [address] Lauri DumontGFR-NON AF RWANDAN>60Normal>=60The [facility] TrumbullComment on above:Performed By: #### BMP #### [facility] [address] [address] [address] Lauri ToddGlucose [Mass/Vol]146 mg/dLCritically cfvn69-832Ahg [facility] TrumbullComment on above:Performed By: #### BMP #### [facility] [address] [place] [address] [address] Lauri ToddPotassium [Moles/Vol]4.5 mmol/LNormal3.5-5.1[facility] Comment on above:Performed By: #### BMP #### [facility] [address] [place] [address] [address] Lauri ToddSodium [Moles/Vol]137 mmol/MNvsort605-551Gwm [facility] Comment on above:Performed By: #### BMP #### [facility] [address] [place] [address] [address] Lauri ToddUrea nitrogen [Mass/Vol]16.0 mg/dLNormal7.0-18.0The [facility] TrumbullComment on above:Performed By: #### BMP #### [facility] [address] [place] [address] [address] Lauri Delong nitrogen/Creatinine [Mass ratio]17.8 mg/mgNormalThe [facility] TrumbullComment on above:Performed By: #### BMP #### [facility] [address] [place] [address] [address] Lauri ToddA1C HEMOGLOBINon 67-01-1846SlT6l (Bld) [Mass fraction]8.2 %[facility] Other Glucose - FINGER STICKon 92-40-9258Pvcvves [Mass/Vol] 180 mg/dLNort Rue89 Other HbA1c (Bld) [Mass fraction]on 79-23-8623F2O HEMOGLOBIN [facility] Other XR FOOT LT MIN 3 VIEWSon 86-18-6943BW FOOT LT MIN 3 VIEWSEXAM: XR ANKLE [...] Electronically authenticated by: RAFAEL WHITAKER Date: 2022-05-25 11:52[facility] OhioA1C HEMOGLOBINon 56-57-6698LcD1j (Bld) [Mass fraction]7 %[facility] Other Glucose - FINGER STICKon 90-22-7649Uhtkvkn [Mass/Vol] 148 mg/dLNort Rue89 Other HbA1c (Bld) [Mass fraction]on 71-91-5762J7O HEMOGLOBIN [facility] Other Basic Metabolic Panelon 03-38-5908Evwcf gap [Moles/Vol]20 mmol/BHlpbqn99-56Jegijdql [facility] SpecialistComment on above: Result Comment: Effective 05/15/2019 reference range changed.Performed By: #### BMP #### [facility] [address] [place], [place] [id number] [Mass/Vol]10.0 mg/dLNormal8.6-10.2[facility] SpecialistComment on above:Performed By: #### BMP #### [facility] [address] [place] [id number] [Moles/Vol]100 mmol/VKcylwy67-027Zpritzya [facility] SpecialistComment on above:Performed By: #### BMP #### [facility] [address] [place], [place] [id number] [Moles/Vol]22 mmol/ABwpuxo31-28Alviodwh [facility] SpecialistComment on above:Performed By: #### BMP #### [facility] [address] [place], [place] [id number] [Mass/Vol]0.8 mg/dLNormal0.7-1.4Nortabrazo [facility]n [facility] SpecialistComment on above:Performed By: #### BMP #### [facility] [address] [place], [place] [id number] mL/min/1.34i9Wxziqw>60Nortabrazo [facility]n [facility] SpecialistComment on above:Performed By: #### BMP #### [facility] [address] [place], [place] [id number] mL/min/1.69u3Fhqnlq>60Nortabrazo [facility]n [facility] SpecialistComment on above:Performed By: #### BMP #### [facility] [address] [place], [place] [id number] [Mass/Vol]140 mg/uNLylz34-69Anvjcuxk [place] [facility] SpecialistComment on above:Result Comment: For FASTING Glucose --- ADA reference ranges: Normal 65-99 mg/dl Prediabetes 100-125 Diabetes >/= 126Performed By: #### BMP #### [facility] [address] [place], [place] [id number] [Moles/Vol]4.3 mmol/LNormal3.5-5.5Nortabrazo [facility]n [facility] SpecialistComment on above:Performed By: #### BMP #### [facility] [address] [place], [place] [id number] [Moles/Vol]137 mmol/KAvkoer443-231Lsotuuzt [place] [facility] SpecialistComment on above:Performed By: #### BMP #### [facility] [address] [place], [place] [id number] nitrogen [Mass/Vol]17 mg/dLNormal7-25NortOhioHealth [facility] SpecialistComment on above:Performed By: #### BMP #### [facility] [address] [place], [place] [id number] Vital Signs Date TimeVital SignValuePerforming KvaxuzoghZzoqqcql52-75-4701 10:05-0500 Diastolic blood qjppokks36 mm[Hg]Maria Fernanda Granados MEDICAL PLANNER-C Work Phone: [phone] [place], [place] 5535811-03-2025 10:05-0500 Systolic blood llnbzbta667 mm[Hg]Maria Fernanda Granados MEDICAL PLANNER-C Work Phone: [phone] [place], [place] 5535811-03-2025 10:00-0500 Body pejifj168.88 cmSsandra Granados MEDICAL PLANNER-C Work Phone: [phone] [place], [place] 5535811-03-2025 10:00-0500 Body mass index (BMI) [Ratio]51.8 kg/n7Xscrpvqwjuan Granados MEDICAL PLANNER-C Work Phone: [phone])[address] [place], [place] 5535811-03-2025 10:00-0500 Body atvwzm782.3 kgSajuan Granados MEDICAL PLANNER-C Work Phone: [phone])[address] [place], [place] 5535811-03-2025 10:00-0500 Heart rate86 /Han Granados MEDICAL PLANNER-C Work Phone: [phone])[address] [place], [place] 5535811-03-2025 10:00-0500 Respiratory rate18 /Han Granados MEDICAL PLANNER-C Work Phone: [phone])[address] [place], [place] 5535811-03-2025 10:00-0500 SaO2% (BldA) [Mass fraction]95 %Maria Fernanda Granados MEDICAL PLANNER-C Work Phone: [phone])[address] [place], [place] 5535809-24-2025 09:20-0400 Body allsss756.6 cmSsandra Granados MEDICAL PLANNER Work Phone: [phone] [place], [place] 977[address]9-24-2025 09:20-0400Body mass index (BMI) [Ratio]52.48 kg/p4ZjalhgcaMaria Fernanda Granados MEDICAL PLANNER Work Phone: [phone])[address] [place], [place] 977[address]9-24-2025 09:20-0400Body oddchu854.09 kgMaria Fernanda Granados MEDICAL PLANNER Work Phone: [phone] [place], [place] 977[address]9-24-2025 09:20-0400Diastolic blood vcxamcrx89 mm[Hg]Maria Fernanda Mezaman MEDICAL PLANNER Work Phone: [phone]09-24-2025 09:20-0400Heart rate82 /min Maria Fernanda Sharif MEDICAL PLANNER Work Phone: [phone])[address] [place], [place] 977[address]9-24-2025 09:20-1315PpM4% (BldA) [Mass fraction]98 %Maria Fernanda Sharif MEDICAL PLANNER Work Phone: [phone])[address] [place], [place] 977[address]9-24-2025 09:20-0400Systolic blood mm[Hg]Maria Fernanda Sharif MEDICAL PLANNER Work Phone: [phone] [place], [place] 977[address]7-21-2025 10:07-0400Body shaxfk137.88 cmSabiliomya Sharif MEDICAL PLANNER-C Work Phone: [phone])[address] [place], [place] 5535807-21-2025 10:07-0400 Body mass index (BMI) [Ratio]51.5 kg/y9Ryawtfiqjuan Granados MEDICAL PLANNER-C Work Phone: 1(797)[address] [place], [place] 5535807-21-2025 10:07-0400 Body .5 kgMaria Fernanda Sharif MEDICAL PLANNER-C Work Phone: 1(015)[address] [place], [place] 5535807-21-2025 10:07-0400 Diastolic blood cagnrqyz07 mm[Hg]Maria Fernandaarlene Granados MEDICAL PLANNER-C Work Phone: 1(651)[address] [place], [place] 5535807-21-2025 10:07-0400 Heart rate81 /Han Granados MEDICAL PLANNER-C Work Phone: [phone])[address] [place], [place] 5535807-21-2025 10:07-0400 Respiratory rate18 /Han Granados MEDICAL PLANNER-C Work Phone: [phone])[address] [place], [place] 5535807-21-2025 10:07-0400 SaO2% (BldA) [Mass fraction]96 %Maria Fernandaarlene Granados MEDICAL PLANNER-C Work Phone: [phone])[address] [place], [place] 5535807-21-2025 10:07-0400 Systolic blood evihehgw940 mm[Hg]Maria Fernanda Granados MEDICAL PLANNER-C Work Phone: [facility]06-12-2025 09:51-0400 Body mass index (BMI) [Ratio]51.08 kg/n7MxrvpgizMaria Fernanda Granados MEDICAL PLANNER Work Phone: [phone] HealthBlaktciwqp89-53-3885 09:51-0400Body uybxwj451.47 kgSajuan Granados MEDICAL PLANNER Work Phone: [phone])[address]06-12-2025 09:51-0400Diastolic blood meggceyf24 mm[Hg]Maria Fernanda Granados MEDICAL PLANNER Work Phone: [phone])[address]06-12-2025 09:51-0400Heart rate76 /min Maria Fernanda Granados MEDICAL PLANNER Work Phone: [phone]69[facility] HealthJtzwoxncnl28-52-6061 09:51-0400Systolic blood ckxxulkq679 mm[Hg]Maria Fernanda Granados MEDICAL PLANNER Work Phone: [phone]52[facility] HealthAsdwvzzymo48-80-6122 09:08-0400Diastolic blood pnarogvj25 mm[Hg][facility]04-14-2025 09:08-0400Systolic blood raqydama858 mm[Hg][facility]04-14-2025 09:07-0400 Body bjtylg003.88 cmAultman Hospital04-14-2025 09:07-0400Body mass index (BMI) [Ratio]50.5 kg/i8HvauvvfouAultman Hospital04-14-2025 09:07-0400Body aqusxo942 kgAultman Hospital04-14-2025 09:07-0400Heart rate87 /[facility]04-14-2025 09:07-0400Respiratory rate18 /[facility]04-14-2025 09:07-1678XeD9% (BldA) [Mass fraction]97 %[facility] 07-19-2024 09:57-0400Diastolic blood mm[Hg]Blossom Cody MEDICAL PLANNER Work Phone: [phone] HealthHukhvblyql79-44-6706 09:57-0400Systolic blood mqfyyccr351 mm[Hg]Blossom Cody MEDICAL PLANNER Work Phone: [facility] HealthKjmuyfzotc22-07-4403 09:22-0400Body mass index (BMI) [Ratio]50.03 kg/m6OjnxukdwkBlossom Cody MEDICAL PLANNER Work Phone: [facility] HealthApybboeurc86-15-2176 09:22-0400Body twimob400.02 kgShiracarolamary Glo MEDICAL PLANNER Work Phone: [facility] HealthHzmwgnvvye44-30-9493 09:22-0400Heart rate80 /min Blossom Cody MEDICAL PLANNER Work Phone: [facility] HealthSkraxqowsr16-29-5350 14:55-0500Body qlyotx201.88 cmNatalie Hernandez MD Work Phone: [phone]02-05-2025 14:55-0500 Body mass index (BMI) [Ratio]48.8 kg/m2Natalie Hernandez MD Work Phone: 1(575)[address] [place], [place] 5964002-05-2025 14:55-0500 Body ybzhzwjrgvk89.1 [degF]Natalie Hernandez MD Work Phone: 1([phone])[address] [place], [place] 5964002-05-2025 14:55-0500 Body kljwaf833.29 kgNatalie Hernandez MD Work Phone: [phone])[address] [place], [place] 5964002-05-2025 14:55-0500 Diastolic blood nwwuhuyd80 mm[Hg]Natalie Hernandez MD Work Phone: [phone])[address]02-05-2025 14:55-0500 Heart jsrs813 /minNatalie Hernandez MD Work Phone: [phone])[address]02-05-2025 14:55-0500 Systolic blood xtknqalj884 mm[Hg]Natalie Hernandez MD Work Phone: [phone])[address]12-11-2024 09:47-0500 Body mass index (BMI) [Ratio]52.21 kg/p1LidaaqgxrBlossom Cody MEDICAL PLANNER Work Phone: [facility] HealthKalmussidc05-88-7291 09:47-0500Body lfhawa220.19 kgBlossom Lozoyael MEDICAL PLANNER Work Phone: [facility] HealthRneaoxpeup98-36-0636 09:47-0500Diastolic blood xvyuhdaa21 mm[Hg]Blossom Glo MEDICAL PLANNER Work Phone: [phone] HealthBtsrbcqeqr89-30-3406 09:47-0500Heart rate84 /min Blossom Glo MEDICAL PLANNER Work Phone: [phone] HealthLqmictcsah68-84-1908 09:47-0500Systolic blood ysopdrwu624 mm[Hg]Blossom Cody MEDICAL PLANNER Work Phone: [phone]04[facility] HealthNjhhxkpdmz25-37-1950 09:59-0400Body ruipwa273.88 cmA[facility]09-18-2024 09:59-0400Body mass index (BMI) [Ratio]51.2 kg/c2CnjzxtdjuAultman Hospital09-18-2024 09:59-0400Body frcizy178.54 kgAultman Hospital09-18-2024 09:59-0400Diastolic blood vxirkozj93 mm[Hg][facility]09-18-2024 09:59-0400 Heart rate81 /[facility]09-18-2024 09:59-0400 Respiratory rate18 /[facility]09-18-2024 09:59-0400 SaO2% (BldA) [Mass fraction]94 %[facility]09-18-2024 09:59-0400Systolic blood mxrakizs328 mm[Hg][facility] 01-19-2024 11:00-0400Body mass index (BMI) [Ratio]51.82 kg/h7Sdzzrsedt Glo MEDICAL PLANNER Work Phone: [phone] HealthEudycuvxwk55-97-8581 11:00-0400Body lytstq127.91 kgShiradidier Cody MEDICAL PLANNER Work Phone: [phone] HealthNupxnjqsyc08-25-1111 11:00-0400Diastolic blood mm[Hg]Blossom Glo MEDICAL PLANNER Work Phone: [phone] HealthAypixgrhrw68-73-8414 11:00-0400Heart rate84 /min Blossom Cody MEDICAL PLANNER Work Phone: [phone] HealthCshmrqazlt25-77-6217 11:00-0400Systolic blood htvjqfeu895 mm[Hg]Blossom Cody MEDICAL PLANNER Work Phone: [phone] HealthBvwiknqify07-18-7936 11:31-0400Body lusalv662.88 cmA[facility] Hospital06-11-2024 11:31-0400Body mass index (BMI) [Ratio]51.7 kg/s1BxgihfvsrAultman Hospital06-11-2024 11:31-0400Body ahwlle153.87 kgAultman Hospital06-11-2024 11:31-0400Diastolic blood urdyahqn10 mm[Hg][facility]06-11-2024 11:31-0400 Heart rate74 /[facility]06-11-2024 11:31-0400 Respiratory rate18 /[facility]06-11-2024 11:31-0400 SaO2% (BldA) [Mass fraction]97 %[facility]06-11-2024 11:31-0400Systolic blood lfazvdkc599 mm[Hg][facility] 06-16-2023 11:33-0500Diastolic blood mm[Hg]Blossom Cody MEDICAL PLANNER Work Phone: [phone] HealthThfxlufsrz22-53-7091 11:33-0500Systolic blood mm[Hg]Blossom Cody MEDICAL PLANNER Work Phone: [phone] HealthNzgwfjuqtg29-23-1743 11:02-0500Body mass index (BMI) [Ratio]52.12 kg/s6ImduiygupBlossom Cody MEDICAL PLANNER Work Phone: [phone] HealthDsmqmmhbcr30-46-6267 11:02-0500Body wfredq605.91 kgBlossom Cody MEDICAL PLANNER Work Phone: [phone] HealthOokskuwheu53-32-9283 11:02-0500Heart rate92 /min Blossom Cody MEDICAL PLANNER Work Phone: [phone] HealthDohtyztiqy28-24-8104 08:45-0500Body heightTondra Mapus Other noKydaemos Rue89 Other 01-31-2024 08:45-0500Body .88 cmMD Natalie Hernandez [employer] Phone: [facility]01-31-2024 08:45-0500 Body mass index (BMI) [Ratio]51.33 kg/n6Sqvjmp Mapus Other [facility] Rue89 Other 01-31-2024 08:45-0500Body yrilvq289.69 kgTondra Mapus Other [facility] Rue89 Other 01-31-2024 08:45-0500Body ffwmer807.68 kgMD Natalie Hernandez [employer] Phone: [facility]01-31-2024 08:45-0500 Diastolic blood pcrescdc21 mm[Hg]Tondra Mapus Other [facility]01-31-2024 08:45-0500 Respiratory rate18 /minTondra Mapus Other [facility] Rue89 Other 01-31-2024 08:45-2085TbA9% (BldA) [Mass fraction]94 % Tondra Mapus Other [facility]sc[facility] Rue89 Other 01-31-2024 08:45-0500Systolic blood lhzeshig405 mm[Hg] Tondra Mapus Other [facility]08-28-2023 08:45-0400 Body heightTondra Mapus Other [facility]sc[facility] Rue89 Other 08-28-2023 08:45-0400Body mass index (BMI) [Ratio] 51.37 kg/j8Ctrtez Mapus Other [employer] Other 08-28-2023 08:45-0400Body egxsho065.82 kgTondra Mapus Other [employer] Other 08-28-2023 08:45-0400Diastolic blood pfwelvds33 mm[Hg] Tondra Mapus Other [facility] Other 08-28-2023 08:45-0400Respiratory rate18 /minTondra Mapus Other [facility] Other 08-28-2023 08:45-5629ThP2% (BldA) [Mass fraction]98 % Tondra Mapus Other [facility] Other 08-28-2023 08:45-0400Systolic blood iviqkaks884 mm[Hg] Tondra Mapus Other [facility] Other 02-16-2023 09:45-0500Body heightTondra Mapus Other [employer] Other 02-16-2023 09:45-0500Body mass index (BMI) [Ratio] 51.14 kg/u3Tcsisi Mapus Other [email or web address] Other 02-16-2023 09:45-0500Body moecot066.05 kgTondra Mapus Other [facility] Other 02-16-2023 09:45-0500Diastolic blood uioaykrw64 mm[Hg] Tondra Mapus Other [facility] Other 02-16-2023 09:45-0500Respiratory rate18 /minTondra Mapus Other [facility] Other 02-16-2023 09:45-9567JoO0% (BldA) [Mass fraction]95 % Tondra Mapus Other [facility] Other 02-16-2023 09:45-0500Systolic blood zmtzoelb565 mm[Hg] Tondra Mapus Other [facility] Other 08-30-2022 09:45-0400Body heightTondra Mapus Other [facility] Other 08-30-2022 09:45-0400Body mass index (BMI) [Ratio] 48.28 kg/d9Ohovyc Mapus Other [facility] Other 08-30-2022 09:45-0400Body .48 kgTondra Mapus Other [facility] Other 08-30-2022 09:45-0400Diastolic blood znxtydfp57 mm[Hg] Tondra Mapus Other [facility] Other 08-30-2022 09:45-0400Respiratory rate20 /minTondra Mapus Other [facility] Other 08-30-2022 09:45-8627TuR0% (BldA) [Mass fraction]95 % Tondra Mapus Other [facility] Other 08-30-2022 09:45-0400Systolic blood pjsoclyz051 mm[Hg] Link Ortega [facility] [employer] Other Encounters Encounter DateEncounter [facility] ProviderFacilityStart: 03-12-2025 End: [id number] [facility] [employer] Work Phone: [phone]-MJUPFqqkb: 03-12-2025 End: 19-31-1417Hnwmjyt encounter procedureLink Ortega 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 TESTER-C-[facility] Work Phone: Start: 03-08-2025 End: 62-70-9190CgoiccLudkwc Stalter MD Work Phone: noms [facility] MedicineComment on above:Essential hypertensionStart: 01-31-2025 End: 80-84-0585Npprgk flowsVicky Granados NP Work Phone: NOMS [facility] MedicineStart: 01-31-2025 End: 19-63-7464Vbkygl flowsVicky Granados NP Work Phone: noms [facility] MedicineStart: 48-96-1039Kbu- patient / Non-visitLink Ortega 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 TESTER-C-[facility] Work Phone: Start: 01-31-2025 End: 43-49-4000Hstfokh encounter statusMaria Fernanda Grandaos NP Work Phone: [facility] HealthcareStart: 01-31-2025 End: 75-62-5632Tfxdvuqb preventive med est patient 40-64yrsSsandra Granados NP Work Phone: [facility] MedicineComment on above:Wellness examination (Primary Dx); Type [...] Poorly controlled diabetes mellitus (HCC)Start: 01-31-2025 End: 35-62-6267uatbhdavsfEMWYQFIT J HOFFMANNot AvailableStart: 11-27-2024 End: 92-92-2996ncutnysmmeBjosnqme Hoffman MEDICAL PLANNER-C Work Phone: [facility] Work Phone: Start: 11-27-2024 End: 20-00-6531Qvtigbm encounter procedureLink 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-[facility] Work Phone: Start: 10-19-2024 End: 59-05-4144Yrdzdg flowsVicky Granados NP Work Phone: noms FNR FMStart: 10-19-2024 End: 19-44-0179Igjrvv Kylah Granados NP Work Phone: noms FNR FMStart: 10-19-2024 End: 83-00-3072Pdrloj outpatient visit 15 minutesSajuan Granados NP Work Phone: noms FNR FMComment on above: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); Essential hypertension; 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, sequela (HHS-HCC); Amputation of toe, traumatic, left, sequela (HHS-HCC); Morbid obesity (CMS-HCC); HypertriglyceridemiaStart: 10-19-2024 End: 06-50-0678yyqmhrkcvnLXQUNPYU J HOFFMANNot AvailableStart: 08-21-2024 End: 92-79-4276dmzvvdgqfnIdboyleiiNationwide [facility] Work Phone: Start: 08-21-2024 End: 52-33-1747Ijukzba encounter procedureErlanger [facility] Phys[facility] GroupIN[facility] Work Phone: Start: 07-19-2024 End: 93-69-9160Sevexw outpatient visit 25 minutesElididier Cody NP Work Phone: NOMD FNR FMComment on above:Diabetic polyneuropathy associated with [...] Depressed mood; Insomnia, unspecified typeStart: 07-19-2024 End: 01-59-1307yjncnjkwueNFPHMHTTK A GABELNot AvailableStart: 06-14-2024 End: 00-26-6615glmzjmzkveLntc Wonderly MD Work Phone: [facility] Work Phone: Start: 06-14-2024 End: 32-34-7667Fpsdzdy encounter procedureNatalie Hernandez MD Work Phone: [facility] Work Phone: Start: 85-63-5738Dtw-patient / Non-visitErlanger [facility] Physician GroupOhio[facility] Work Phone: Start: 05-30-2024 End: 77-82-6841Krzzahipe Result EncounterGeneric External Data ProviderNOMS External Department UnsolicitedStart: 05-30-2024 End: 27-62-8723Bszwtykub Result EncounterGeneric External Data ProviderNOMS External Department UnsolicitedStart: 05-26-2024 End: 43-81-2858Fdcxscgwb Result EncounterGeneric External Data ProviderNOMS External Department UnsolicitedStart: 05-26-2024 End: 43-26-9742Upcwepuhs Result EncounterGeneric External Data ProviderNOMS External Department UnsolicitedStart: 04-27-2024 End: 76-20-7846Qqerwkfwj Result EncounterGeneric External Data ProviderNOMS External Department UnsolicitedStart: 04-27-2024 End: 42-05-8701Zuhcytxzt Result EncounterGeneric External Data ProviderNOMS External Department UnsolicitedStart: 04-26-2024 End: 29-61-3113Qcnkscjis Result EncounterGeneric External Data ProviderNOMS External Department UnsolicitedStart: 04-26-2024 End: 82-07-0458Vryjbjzda Result EncounterGeneric External Data ProviderNOMS External Department UnsolicitedStart: 04-26-2024 End: 57-90-7006uvevvrfmnlDapn WonderlyFacility:[facility] Start: 04-26-2024 End: 96-91-0004Casudxzs Montse Hernandez MD Work Phone: [facility] HospStart: 04-25-2024 End: 89-59-4272Zeqtjdhfk Result EncounterGeneric External Data ProviderNOMS External Department UnsolicitedStart: 04-25-2024 End: 79-82-6189Dkdlfvvhp Result EncounterGeneric External Data ProviderNOMS External Department UnsolicitedStart: 04-19-2024 End: 07-13-7501Nqnoho flowsLupe Cody MEDICAL PLANNER Work Phone: NOMS FNR FMStart: 04-19-2024 End: 95-27-3563Wgxaep flowsLupe Cody MEDICAL PLANNER Work Phone: noMS FNR FMStart: 04-19-2024 End: 40-41-2593Iphecwy encounter statusBlossom Cody MEDICAL PLANNER Work Phone: NOMS HealthcareStart: 04-19-2024 End: 72-93-2391Ffosefml preventive med est patient 40-64yrsElididier Cody NP Work Phone: noms FNR FMComment on above:Diabetic polyneuropathy associated with type 2 diabetes mellitus ([facility]/HCC) (Primary Dx); Wellness examination; Type 2 diabetes mellitus with neurological manifestation ([facility]/HCC); Essential hypertension; 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, subsequent encounter ([facility]); Dyslipidemia ([facility]/HCC); Hypertriglyceridemia ([facility]/HCC); Poorly controlled diabetes mellitus ([facility]/HCC); Type 2 diabetes mellitus with hyperglycemia, with long-term current use of insulin ([facility]/HCC); Amputation of toe, traumatic, left, sequela ([facility]/HCC); Essential hypertension; Diabetic autonomic neuropathy associated with type 2 diabetes mellitus ([facility]/HCC); Acquired hallux valgus, unspecified laterality; Morbid obesity ([facility]); Vitamin B 12 deficiency; 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[facility]/HCC)Start: 04-19-2024 End: 32-25-7342rzhnbwrjwgBLVDSLBEE A GABELNot AvailableStart: 02-28-2024 End: 04-26-0880XhqiymWisiBrooke Hernandez MD Work Phone: noms FNR FMComment on above:Pure hyperglyceridemia ([facility])Start: 01-26-2024 End: 68-57-5227qqcoddwssyMwvpbxudkOhioHealth [facility] Work Phone: Start: 01-26-2024 End: 01-98-3957Mfxbpia encounter procedureErlanger [facility] Physician [facility] Work Phone: Start: 93-82-5489Zgk-patient / Non-visitErlanger [facility] Work Phone: Start: 01-19-2024 End: 24-20-9685Gjakxf flowsheetBlossom Cody MEDICAL PLANNER Work Phone: noms FNR FMStart: 01-19-2024 End: 49-54-6620Uwfves Tanvi Cody NP Work Phone: noms FNR FMStart: 01-19-2024 End: 85-70-4232Qmzpcm outpatient visit 25 minutesBlossom Lozoyael MEDICAL PLANNER Work Phone: NOMS FNR FMComment on above:Diabetic polyneuropathy associated with type 2 diabetes mellitus (CMS/HCC) (Primary Dx); 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); Essential hypertension; 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, subsequent encounter ([facility]); Type 2 diabetes mellitus with hyperglycemia, with long-term current use of insulin ([facility]/HCC); Dyslipidemia (CMS/HCC); Hypertriglyceridemia (CMS/HCC); Amputation of toe, traumatic, left, sequela (CMS/HCC); Vitamin B 12 deficiency; Pure hyperglyceridemia (CMS/HCC)Start: 12-30-2023 End: 72-32-6343ZgrudvVcgaBrooke Hernandez MD Work Phone: noms FNR FMComment on above:Essential hypertension Start: 11-02-2023 End: 52-48-9323Qsvvdajpf Result EncounterGeneric External Data ProviderNOMS External Department UnsolicitedStart: 11-02-2023 End: 29-63-0609Tcqjyaazz Result EncounterGeneric External Data ProviderNOMS External Department UnsolicitedStart: 10-19-2023 End: 47-54-3713hnmyeorfclHjkdsqwadOhioHealth [facility] Work Phone: Start: 10-19-2023 End: 01-26-7408Jyjtgjp encounter [facility] GroupIN[facility] Work Phone: Start: 29-06-7921Ojalkj flowsheetBlossom Cody NP Work Phone: NOMS FNR FMStart: 12-83-8287Dryumi flowsheetBlossom Cody NP Work Phone: noMS FNR FMStart: 06-16-2023 End: 86-68-8965Qctckg outpatient visit 25 minutesElizamary Cody NP Work Phone: NOMS FNR FMComment on above:Diabetic polyneuropathy associated with type 2 diabetes mellitus (CMS/HCC) (Primary Dx); Diabetic neuropathic arthropathy (CMS/HCC); 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); 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, sequela (CMS/[facility]); Ulcer of foot due to type 2 diabetes mellitus ([facility]); Vitamin B 12 deficiency; Hx of diabetic neuropathy; 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CMS/HCC); Hypertriglyceridemia (CMS/HCC); 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, 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); Essential hypertension; Nasal congestion; Type 2 diabetes mellitus with diabetic autonomic neuropathy, with long-term current use of insulin (CMS/HCC); 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); Acquired absence of other toe(s), unspecified side (Z89.429); Type 2 diabetes mellitus with diabetic neuropathy, with long-term current use of insulin ([facility]); Body mass index [BMI] 50.0-59.9, adult (Z68.43); Type 2 diabetes mellitus with foot ulcer, with long-term current use of insulin ([facility]); 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.49); Status post amputation of lesser toe, unspecified laterality ([facility]); Arthritis of left foot; Acquired hallux valgus of left foot; Type 2 diabetes mellitus with hyperglycemia, with long-term current use of insulin ([facility]); Morbid obesity ([facility])Start: 06-15-2023 End: 15-92-5674emkfbgxfgrMnjpju [employer] Other [facility] Other Start: 53-30-8287Xvtjthiyv encounterTondra [facility] ClinicStart: 06-09-2023(DM) DiabetesTondra [facility] ClinicStart: 06-09-2023 End: 71-81-6283Pcjlvefbub RecurringMD Natalie Hernandez Work Phone: [facility] Work Phone: Start: 06-09-2023 End: 87-85-8730gyumkbpiqbYP Natalie Hernandez Work Phone: [facility] Other Start: 06-09-2023 End: 42-82-7441Yqywlfb encounter procedureMD Natalie Hernandez Work Phone: [facility]-Start: 04-28-2023 End: 37-34-6252Lesjkvppv Result EncounterGeneric External Data ProviderNOMS External Department UnsolicitedStart: 04-28-2023 End: 37-46-6762Vtqfjscfe Result EncounterGeneric External Data ProviderNOMS External Department UnsolicitedStart: 01-04-2023(DM) DiabetesTondra Shannon [facility] ClinicStart: 01-04-2023 End: 17-93-2948xzrdzlortlQzwpvu [employer] Other [facility] Other Start: 12-21-2022 End: 86-37-8226nuispevqfkAscxek [employer] Other [facility] Other Start: 64-18-3247Ucheoqfhr encounterTondra Shannon [facility] ClinicStart: 41-94-9398xfgzsxtlvdGNEZV D [facility] Facility:E9Vpkzq: 10-06-2022 End: 91-75-8022valnughuxuJRMNS D [facility]SFacility:Q9Nvgqa: 89-08-5969Vyklxyywf for preprocedural cardiovascular examinationPETER D [facility] Hospitaltart: 45-12-7530Xmvrodskm for preprocedural laboratory examinationPETER D [facility] Hospitaltart: 09-30-2022 End: 10-00-8836tmhyosknquEUTFU D [facility]SFacility:T1Rnwji: 09-30-2022 End: 93-67-8118Jljidoxst for preprocedural laboratory examinationPETER D [facility]SFacility:Y0Jvovj: 09-15-2022 End: 79-54-5435kdncwihczlEVTEQ D [facility]SFacility:T5Lzibu: 09-10-2022 End: 48-18-5365yrhlhqfgalBqmged [employer] Other [email or web address] Other Start: 90-68-0356Wdertvhak encounterTondra Shannon [facility] Care ClinicStart: 08-24-2022 End: 85-07-1737lqoqpxyaswZVDWD D HIGHLANDERFacility:B8Bphgv: 08-10-2022 End: 76-76-8114wbymhnpufwZmcnka [employer] Other [email or web address] Other Start: 91-46-5188Exxgzlvez encounterTondrlibra Ortega [facility] Coordinated Care ClinicStart: 08-03-2022 End: 15-31-0733vdynuyopxaJK NATALIE B WONDERLYFacility:T6Wrdmo: 07-13-2022 End: 40-66-6405kkvnwnfnitNGMYGIGV CULLENFacility:K4Ocopd: 06-30-2022 End: 69-91-2564sjfzakdntkXZHTO D HIGHLANDERFacility:P7Bcjgz: 06-25-2022(DM) DiabetesTondra ShannonFirdaneses Coordinated Care ClinicStart: 06-25-2022 End: 35-40-8877lwaenvteyjHgjjfa [employer] Other [email or web address] Other Start: 06-16-2022 End: 66-80-7793uxshjhvbacGZGXN D HIGHLANDERFacility:H0Ooyoh: 06-08-2022 End: 47-03-4171vcbrijfwksYTDNA D HIGHLANDERFacility:P9Igcqh: 05-25-2022 End: 93-17-2558mhtjjkpjqsZVWZQ D HIGHLANDERFacility:J5Jadzn: 05-12-2022 End: 55-58-9433fgvypzzwplCHZFF D HIGHLANDERFacility:P5Fmdls: 04-30-2022 End: 51-46-1845xcnidgsfsuMVTGY D HIGHLANDERFacility:Y2Askcs: 04-24-2022 End: 53-27-6111eqbzdvappsBVBDD D HIGHLANDERFacility:J1Fkamd: 04-17-2022 End: 39-75-3103eohlhajrrrKQLQY D HIGHLANDERFacility:B3Flkuo: 04-08-2022 End: 07-28-2120stcojcbjcyXJQIH D HIGHLANDERFacility:W7Hlvkm: 03-31-2022 End: 68-12-6813crcyoyqturXYECY D HIGHLANDERFacility:F3Rigmi: 03-23-2022 End: 37-40-6983nrpubmjtibPTOZG D HIGHLANDERFacility:Y9Pmzuu: 03-16-2022 End: 50-78-5193kvbanfifrsVDPIQ D HIGHLANDERFacility:N0Radft: 03-09-2022 End: 23-42-1872ltwiicujkqPNGUP D HIGHLANDERFacility:D9Oxgig: 03-03-2022 End: 92-70-4800vjbxlklbnoQYACD D HIGHLANDERFacility:B3Yvzvi: 02-18-2022 End: 05-42-6640sdyfudrwnyKkvhxg [employer] Other [email or web address] Other Start: 29-40-1209Bunawhstj encounterTondra [place]inated Care ClinicStart: 02-09-2022 End: 25-59-6831ibdexdbbuaDRXFR D HIGHLANDERFacility:B8Ltzzq: 01-26-2022 End: 32-75-6027rbzsnufwlwJLNLA D HIGHLANDERFacility:L7Qjrtx: 01-13-2022 End: 09-34-3435kyzkgbbvhdXZFFM D HIGHLANDERFacility:L2Dbfav: 01-06-2022(DM) DiabetesTondra DayannausErlanger [facility] Coordinated Care ClinicStart: 01-06-2022 End: 42-99-0978mmkxyvddgmBugwno [employer] Other [email or web address] Other Start: 12-29-2021 End: 00-91-8622zbuhjotagxKSRPC D HIGHLANDERFacility:O4Xjmpu: 12-22-2021 End: 68-86-5898kbjiidneffMQPZX D HIGHLANDERFacility:Q1Ioanf: 12-15-2021 End: 65-62-8573frnwsalflhFUUYY D HIGHLANDERFacility:R1Wpwrp: 12-08-2021 End: 99-51-8681nwschobwwjKBWGG D HIGHLANDERFacility:B8Tyeej: 12-01-2021 End: 13-00-0130qakzbaqlzjBOBIT D HIGHLANDERFacility:R8Qtkyb: 11-24-2021 End: 72-14-5169pyofcthoueKUXEM D HIGHLANDERFacility:Y7Hghen: 11-20-2021 End: 19-14-9287azpiqcndfbTPPSL D HIGHLANDERFacility:N2Evezt: 11-17-2021 End: 35-12-4024nyidfwphxhGEBGN D HIGHLANDERFacility:J4Xeprl: 11-14-2021 End: 86-54-9802piifwwjdxlUIQRO D HIGHLANDERFacility:X0Mjjdv: 11-11-2021 End: 13-03-8540aevjgeztkaYRKHZ D HIGHLANDERFacility:A7Lllbb: 11-06-2021 End: 25-53-1923mmpaeilqieYXHJR D HIGHLANDERFacility:I5Nmoxe: 11-03-2021 End: 58-05-7459pgsghmzhhfYBVCM D HIGHLANDERFacility:C1Mfwao: 10-30-2021 End: 22-12-1573supybayjwmYNMJH D HIGHLANDERFacility:G4Wovqr: 10-27-2021 End: 38-75-3818pyfmqvucvxMEEBX D HIGHLANDERFacility:E9Thuze: 10-23-2021 End: 47-76-9308zmajynzwbdFSAKL D HIGHLANDERFacility:T1Abhrn: 10-21-2021 End: 56-47-0555daueeemrtfRKEMI D HIGHLANDERFacility:N2Ndzad: 10-20-2021 End: 16-81-5064oxuekebvfeILZDK D HIGHLANDERFacility:H1 Procedures DateProcedureProcedure DetailPerforming ClinicianStart: 11-53-7486JHYGM CULTURE 2Generic External Data ProviderStart: 61-35-4134LIFHJLZ CULTUREGeneric External Data ProviderStart: 88-94-2984YRRRC CULTURE 2Generic External Data Provider Start: 47-54-2320ZSJPS CULTURE 1Generic External Data ProviderStart: 04-26-2024 ACID FAST CULTUREGeneric External Data ProviderStart: 86-81-3373QFKN FAST SMEAR Generic External Data ProviderStart: 27-80-8802KFZUDFB CULTUREGeneric External Data ProviderStart: 91-25-6953QEG SPECIMEN PROCESSINGGeneric External Data ProviderStart: 24-61-0228PMUQAWZYQ CULT, EXTENDED INCUBGeneric External Data ProviderStart: 63-31-8550YSTSOVEYB CULTUREGeneric External Data ProviderStart: 19-98-8562LLLZXL (MYCOLOGY) CULTUREGeneric External Data ProviderStart: 05-02-7807HZNZSZ STAINGeneric External Data ProviderStart: 01-24-8087BEMI STAIN RESULTGeneric External Data ProviderStart: 91-47-7335KZXRHD CULTUREGeneric External Data ProviderStart: 85-98-1824GZ FOOT RT MIN 3VGeneric External Data ProviderStart: 11-28-3312TKQRF CULTURE 2Generic External Data ProviderStart: 85-03-4267PZ FOOT RT MIN 3VGeneric External Data ProviderStart: 50-58-7057ZT FOOT LT MIN 3VGeneric External Data ProviderAmputation of toeTondra [facility] Other History of amputation of lesser toeStatus post amputation of lesser toe, unspecified laterality ([facility]/HCC)Blossom Cody MEDICAL PLANNER Work Phone: Plan of Treatment DateCare ActivityDetailAuthorStart: 57-49-9790Osbfmqtp screeningDiabetes: Retinopathy ScreeningNOMS HealthcareStart: 12-07-1605Zyxsyuxid for malignant neoplasm of colonColorectal Cancer ScreeningNOMS HealthcareComment on above: Postponed from 1979 (Patient Refused)Start: 77-97-1730Osvsshkth vaccinationInfluenza Vaccine (#1)NOMS HealthcareComment on above:Postponed from 01/08/2025 (Patient Refused)Start: 12-39-8293Gejisgup screeningDiabetes: Retinopathy ScreeningNOMS HealthcareStart: 04-24-2025 End: 91-36-2926Doolapc encounter pkgvovpnx35/16/2025 9:30 AM EST Office Visit CARMEN[facility] [address] [place] [phone] Maria Fernanda Granados NP [address] [facility] [place] [address] [facility] MedicineStart: 01-31-2025 End: 60-74-1055Flocikffttum/Creatinine panel in random UrineMicroalbumin / creatinine, urine ratio Lab Routine 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) Expected: 01/31/2025 (Approximate), Expires: 01/31/2026[facility] Work Phone: Comment on above:Expected: 01/31/2025 (Approximate), Expires: 01/31/2026Start: 01-31-2025 End: 04-00-2359Ejvxxgj encounter procedureNOMS FNR FMComment on above:Arrived Start: 79-10-7386VWRLA-19 Vaccine ( season)COVID-19 Vaccine ()[facility] HealthcareStart: 06-45-0593Cfemoflqn vaccinationInfluenza Vaccine (#1)[facility] HealthcareStart: 09-98-9426Jkwuuwdsgp A1c measurementDiabetes: Hemoglobin D4FLEUP HealthcareStart: 10-19-2024 End: 41-01-0337Lxffoud encounter procedureNOMS FNR FMComment on above:Arrived Start: 07-19-2024 End: 09-79-4161Hqkbnyy encounter /12/2025 9:30 AM EDT [facility] [address] [place] [phone] Blossom Cody NP [address] [place] [address] [facility] FMStart: 85-92-5171Atpzewxiqt A1c measurementDiabetes: Hemoglobin A1C [facility] HealthcareStart: 04-19-2024 End: 43-92-9062Tddliwv encounter procedureNOMS FNR FMComment on above:Diabetic polyneuropathy associated with type 2 diabetes mellitus (CMS/HCC) (Primary Dx); Wellness examination; 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); Essential hypertension; 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, subsequent encounter ([facility]/HCC); Dyslipidemia (CMS/HCC); Hypertriglyceridemia (CMS/HCC); Poorly controlled diabetes mellitus (CMS/HCC); Type 2 diabetes mellitus with hyperglycemia, with long-term current use of insulin (CMS/HCC); Amputation of toe, traumatic, left, sequela (CMS/HCC)Start: 03-57-8634Qyxnt screening for proteinDiabetes: Urine Protein ScreeningNOMS HealthcareStart: 99-46-0185Rxkvbmysx vaccinationInfluenza Vaccine (#1)[facility] HealthcareComment on above:Postponed from 01/09/2024 (Patient Refused)Start: 01-25-2024 End: 40-19-3493Tvxdzhm encounter uksgrxcpu65/17/2024 10:30 AM EDT Office Visit [facility] [address] [place] [phone] lBossom Cody NP [address] [place] [address] [facility] R FMStart: 11-98-5771Imhqvtalbw A1c measurementDiabetes: Hemoglobin A1C [facility] HealthcareStart: 01-19-2024 End: 57-21-7093Driwtfy encounter gztqmegjp96/11/2024 11:00 AM EDT Office Visit [facility] [address] [place] [phone] Blossom Cody NP [address] [place] [address] Diabetic polyneuropathy associated with type 2 diabetes mellitus ([facility]/HCC) (Primary Dx); 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); Essential hypertension; 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, subsequent encounter ([facility]/HCC); Type 2 diabetes mellitus with hyperglycemia, wi th long-term current use of insulin (CMS/HCC); Dyslipidemia (CMS/HCC); Hypertriglyceridemia (CMS/HCC); Amputation of toe, traumatic, left, sequela (CMS/HCC); Vitamin B 12 deficiencyNOMD FNR FMComment on above:Diabetic polyneuropathy associated with type 2 diabetes mellitus ([facility]/HCC) (Primary Dx); Type 2 diabetes mellitus with neurological manifestation ([facility]/HCC); Essential hypertension; 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, subsequent encounter ([facility]); Type 2 diabetes mellitus with hyperglycemia, with long-term current use of insulin ([facility]); Dyslipidemia ([facility]); Hypertriglyceridemia ([facility]); Amputation of toe, traumatic, left, sequela ([facility]); Vitamin B 12 deficiencyStart: 47-52-0082Zbcqehfry vaccinationInfluenza Vaccine (#1)[facility] HealthcareStart: 22-84-8310UArA/Tdap/Td Vaccines (3 - Tdap)DTaP/Tdap/Td Vaccines (3 - Tdap)NOM HealthcareStart: 09-15-2023 End: 64-89-8958Bzjmzac encounter fvlovjdnj94/08/2024 9:30 AM EDT Office Visit [facility] [address] [place] [phone] Blossom Cody NP [address] [place] [address] [facility] R FMStart: 68-63-4260Vsxjcrmmoz A1c measurementDiabetes: Hemoglobin A1C NOM HealthcareStart: 78-86-9949Vasdusbq screeningDiabetes: Retinopathy ScreeningNOMD HealthcareStart: 07-07-2023 End: 03-76-4756Fceprhf encounter gpybeijyw20/28/2024 9:00 AM EST Office Visit [facility] [address] [place] [phone] [facility] FNR FMStart: 06-16-2023 End: 76-59-8841Sjajdot encounter oubbjccax42/07/2024 11:00 AM EST Office Visit [facility] [address] [place] [phone] Blossom Cody NP [address] [place] [address] Diabetic polyneuropathy associated with type 2 diabetes [...] 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CMS/HCC); Morbid obesity (CMS/HCC); Hypertriglyceridemia(CMS/HCC)[facility] FNR FMComment on above:Diabetic polyneuropathy associated with [...] disorder (CMS/HCC); Morbid obesity (CMS/HCC); Hypertriglyceridemia (CMS/HCC)Start: 26-29-7752MKO Vaccines (1 - 3-dose SCDM series)HPV Vaccines (1 - 3-dose SCDM series)[facility] HealthcareStart: 10-09-1998 Hepatitis B Vaccines (1 of 3 - 19+ 3-dose series)Hepatitis B Vaccines (1 of 3 - 19+ 3-dose series)[facility] HealthcareStart: [id number] Vaccine: Pediatrics (0 to 5 Years) and At-Risk Patients (6 to 64 Years) (1 of 2 - PCV) Pneumococcal Vaccine: Pediatrics (0 to 5 Years) and At-Risk Patients (6 to 64 Years) (1 of 2 - PCV)[facility] HealthcareStart: [id number] Vaccines (1 of 1 - Standard series)MMR Vaccines (1 of 1 - Standard series)[facility] HealthcareStart: [id number] for malignant neoplasm of colonNOMS HealthcareAEROBIC CULTUREAEROBIC CULTURE Lab Routine 05/26/2024 6:16 PM ESTNOMS HealthcareBLOOD CULTURE 1BLOOD CULTURE 1 Lab Routine 04/27/2024 6:10 AM ESTNOMD HealthcareBLOOD CULTURE 2BLOOD CULTURE 2 Lab Routine 04/25/2024 1:00 PM ESTNOMD HealthcareBLOOD CULTURE 2BLOOD CULTURE 2 Lab Routine 04/27/2024 6:24 AM ESTNOMD HealthcareBLOOD CULTURE 2BLOOD CULTURE 2 Lab Routine 05/30/2024 12:28 PM [facility] Comprehensive metabolic 1999 panel - Serum or PlasmaAultman HospitalComprehensive metabolic 1999 panel - Serum or [facility] [place] Work Phone: [facility] Immunizations Immunization DateImmunizationNotesCare SiozzngtXmjerkoz69-40-7935zxfpqnzjb, seasonal, injectable, preservative freeTanyabejaja Glo MEDICAL PLANNER Work Phone: [facility] HealthGdiocjzebi61-24-5102hnrpaczfc virus vaccine, unspecified formulationElizabejaja Cody MEDICAL PLANNER Work Phone: [facility] HealthSfjzxtbsrl39-79-0996ktoleof and diphtheria toxoids, adsorbed, preservative free, for adult use (2 Lf of tetanus toxoid and 2 Lf of diphtheria toxoid)Natalie Hernandez MD Work Phone: [facility] HealthYydxtyuyhk38-78-3017jmctwcdux, injectable, quadrivalent, preservative freeBlossom Glo MEDICAL PLANNER Work Phone: [facility] HealthYnzfjyrbqc21-96-3078xuuvrdwpl virus vaccine, unspecified formulationNatalie Hernanedz MD Work Phone: [facility] HealthPkxmczujlm97-08-5030lynqbte and diphtheria toxoids, adsorbed, preservative free, for adult use (5 Lf of tetanus toxoid and 2 Lf of diphtheria toxoid)Blossom Cody MEDICAL PLANNER Work Phone: [facility] HealthXjorwblnax77-34-4159zcxyftfpr, injectable, quadrivalent, preservative freeTanyabejaja Glo MEDICAL PLANNER Work Phone: [facility] HealthYolxlgumha25-12-9116Sjgcboulb, injectable, Madin Nel Canine Kidney, preservative free, quadrivalentElizabeth Glo MEDICAL PLANNER Work Phone: [facility] HealthUcdlpqpkta37-57-2363qwmszdggt, injectable, quadrivalent, preservative freeElizabeth Glo MEDICAL PLANNER Work Phone: noMer[facility] St[facility] LouisWlozegchsu57-60-3574enoayzfcw, injectable, quadrivalent, preservative freeElizabeth Glo MEDICAL PLANNER Work Phone: [facility] Payers DatePayer CategoryPayerPolicy [id number] [employer] [id number] [id number]-fhf [id number] 2.840.1.210866.3.57[id number] 2.840.1.735601.3.57[id number] 2.840.1.761148.3.579.2.28915-41-3117Cmlutao5445232 2.16840.1.079165.3.579.2.77106-07-1498Riagbet4388442 2.16.840.1.066595.3.579.[id number] 2.16.840.1.506084.3.579.2.52231-72-3900Kgbstbd0361836 2.16.840.1.936379.3.579.2.40272-22-6143Dplpllg9921521 2.16.840.1.288298.3.579.2.36535-49-2174Mozamwb0409719 2.16.840.1.667454.3.579.2.57575-34-8325Mquifdt1952571 2.16.840.1.302691.3.579.2.37832-20-2563Bjjpann8161783 2.16.840.1.725343.3.579.2.58784-50-6974Efbflyc9202812 2.16.840.1.718707.3.579.2.30409-67-8534Rttyvvd3358438 2.16840.1.012165.3.579.2.46434-41-4935Lorqzxa7967267 2.16840.1.532169.3.579.2.95200-77-9824Fomiloq6586020 2.16840.1.186053.3.579.2.08314-35-0315Wfxiibc6576338 2.16840.1.231330.3.579.2.23102-14-4788Imgpyyd3122574 2.840.1.652444.3.579.2.12147-44-4684Trnvqpp9243113 2.16840.1.475644.3.579.2.76102-49-0648Jfunmvp0701688 2.16840.1.783030.3.579.2.35751-32-4804Uwlcsad2176332 2.16.840.1.027109.3.579.2.28325-64-9914Izfwnxj9873203 2.16840.1.701807.3.579.2.65276-59-0254Vykzztu7123251 2.16840.1.774456.3.579.2.03025-48-7683Ycuyybu9804801 2.16840.1.042788.3.579.2.96817-62-9784Bcgmhnp6913844 2.840.1.153310.3.579.2.02086-25-3975Lyograg0722193 2.16840.1.409297.3.579.2.13467-43-9569Hhogsoh7207086 2.840.1.837157.3.579.2.38053-02-8520Poyjlnn6954333 2.840.1.834984.3.579.2.84110-82-4012Etuuyzg6547744 2.840.1.356953.3.579.2.54572-44-0529Tvjaedh2207134 2.840.1.033716.3.579.2.49909-67-1554Hagoxvp5445594 2.0.1.578931.3.579.2.35215-64-8912Rbyoiue9846759 2.0.1.844020.3.579.2.39095-75-0926Xilniuk0773183 2.0.1.774180.3.579.2.27273-16-5506Aydkthx8742854 2.0.1.024078.3.579.2.88386-25-9185Mhheesf1273125 2.0.1.286114.3.579.2.68649-82-9598Kfbwqhp5769260 2.840.1.365598.3.579.2.29626-64-8212Djvsnmh3947429 2.0.1.799441.3.579.2.50220-87-7973Fcjsqxi9390824 2.840.1.420639.3.579.2.88817-39-0598Bywruca9468710 2.840.1.713581.3.579.2.46547-01-2724Lidpuon7006979 2.16.840.1.283752.3.579.2.60125-88-9256Pzkhwrz7611909 2.16.840.1.403057.3.579.2.49572-89-9140Xiumbxp3387982 2.16.840.1.525488.3.579.2.62009-40-7572Vtdbksc57962178 2.16.840.1.152664.3.579.2.215348-85-1049Cqbsdmh78092372 2.16.840.1.640879.3.579.2.675778-24-0292Tahenmt3382837 2.16.840.1.108984.3.579.2.334551-68-8972Mktljtb9627099 2.16.840.1.239864.3.579.2.705864-99-5172Vkmndzm851112224 2.16.840.1.918925.19 62-02-2578Jegoznu24834468 2.16.840.1.957767.48Arfxkes41540541 2.16.840.1.347133.3.579.2.412Avojmum26131406 2.16.840.1.776219.3.579.2.531 Social History DateTypeDetailFacilityUnknown if ever smokedNoscotland [facility] memorial hospital Rue89 Other Start: 03-23-2023 End: 63-66-0857Vbe Assigned At BirthNOMD HealthcareStart: 35-92-0145Lldtleu smoking status NHISNever smoked tobaccoNOMD HealthcareStart: 56-39-8311Ytktisk use and exposureSmokeless tobacco non-userNOMS HealthcareStart: 05-18-2023 End: 05-64-2150Zpcxncc intakeCurrent drinker of alcohol (finding)[facility] Start: 03-23-2023 End: 08-79-0789Iibxopm intakeNOMD HealthcareStart: 67-05-8942Ijklmh the last year, have you been afraid of your partner or ex-partner?Patient refusedNOMD HealthcareAre you now , , , , never or living with a partner?RefusedNOMD Healthcare(I/We) worried whether (my/our) food would run out before (I/we) got money to buy more.DK or RefusedN[facility]S Healthcare Start: 89-11-1913Cla Assigned At BirthNot on fileNOMD HealthcareStart: 80-25-7255Lhx Assigned At BirthMalWooster Community Hospitaltart: 10-19-2023 End: 32-83-6472Mwjozfi smoking status NHISEx-smoker (finding)[facility]: [facility]-14-2024 End: 03-57-4279EivIlnt (finding)[facility] HospitalHow often to you have a drink containing alcohol?2-3 time sa weekNOMD HealthcareHow many standard drinks containing alcohol do you have on a typical day?1 or 2NOMS HealthcareHow often do you have 6 or more drinks on 1 occasion?NeverNOMD HealthcareStart: 40-61-5714Rdouknf Commentcaffeine: 2-3 cups dailyNOMD Healthcare Medical Equipment Procedure CodeEquipment CodeEquipment Original TextEquipment IdentifierDates Start: 81-55-0462Xuanzqk Syringe-Needle U-100 (Bd Insulin Syringe Ultra-Fine) 1 mL 31 gauge x 5/16 syringeStart: 37-19-1607lxvuk sugar diagnostic (OneTouch Verio test strips)Start: 60-39-7523Sfpehhf Syringe-Needle U-100 (Bd Insulin Syringe Ultra-Fine) 1 mL 31 gauge x 5/16 syringeStart: 37-19-4756mjuia sugar diagnostic (OneTouch Verio test strips)Start: 83-19-0903Zbbxr Sugar Diagnostic (Onetouch Verio Test Strips) stripStart: 59-44-6987Wbhwvcf Syringe-Needle U-100 (Bd Insulin Syringe Ultra-Fine) 1 mL 31 gauge x 5/16 syringeStart: 06-23-2023 blood sugar diagnostic (OneTouch Verio test strips)Start: 56-38-5829Rfkqu Sugar Diagnostic (Onetouch Verio Test Strips) stripStart: 39-62-9503Rgrdtwf Syringe- Needle U-100 (Bd Insulin Syringe Ultra-Fine) 1 mL 31 gauge x 5/16 syringeStart: 13-20-8141Fmyap Sugar Diagnostic (Onetouch Verio Test Strips) stripStart: 82-92-8818Ezlnfuk Syringe-Needle U-100 1 mL 31 gauge x 5/16 syringeStart: 56-33-5796Bjx Needle, Diabetic 32 gauge x 5/32 needleStart: 51-65-5122dwuiy sugar diagnostic (OneTouch Verio test strips)Start: 10-19-2023 End: 33-10-0698Ftkdrlm Syringe-Needle U-100 (Bd Insulin Syringe Ultra-Fine) 1 mL 31 gauge x 5/16 syringeStart: 06-23-2023 End: 69-85-1220Umtjf Sugar Diagnostic (Onetouch Verio Test Strips) stripStart: 77-70-0445Kghnqlv Syringe-Needle U-100 1 mL 31 gauge x 5/16 syringeStart: 93-39-5073rnysv sugar diagnostic (OneTouch Verio test strips)Start: 10-19-2023 End: 86-65-2099Gxziwvd Syringe-Needle U-100 (Bd Insulin Syringe Ultra-Fine) 1 mL 31 gauge x 5/16 syringeStart: 06-23-2023 End: 70-15-0063Eza Needle, Diabetic 32 gauge x 5/32 needleStart: 08-21-2024 End: 14-44-7698Lky Needle, Diabetic 32 gauge x 5/32 needleStart: 08-21-2024 End: 79-55-0347Hrdxb Sugar Diagnostic (Onetouch Verio Test Strips) stripStart: 17-17-3536Wemebsb Syringe-Needle U-100 1 mL 31 gauge x 5/16 syringeStart: 67-74-5982Ino Needle, Diabetic 32 gauge x 5/32 needleStart: 69-79-0470ikygw sugar diagnostic (OneTouch Verio test strips)Start: 10-19-2023 End: 08-56-7220Jyoimfw Syringe-Needle U-100 (Bd Insulin Syringe Ultra-Fine) 1 mL 31 gauge x 5/16 syringeStart: 06-23-2023 End: 74-13-4657Nfu Needle, Diabetic 32 gauge x 5/32 needleStart: 08-21-2024 End: 66-83-0137Lgu Needle, Diabetic 32 gauge x 5/32 needleStart: 08-21-2024 End: 11-27-2024 Goals DatePatient GoalDesired Activity/StatePersonal health goal Functional Status PpjhYxyfmnnzrpZengvtFuqoozxr37-60-4508Rtgqz score [AUDIT-C]3 01/31/2025 9:27 AM EDT [facility] 05-10-2020 to 01-31-2025 Note Date & KlbdScymRepaevad56-85-9807 History of Present illness Narrative* Nohemi Castrejon [...] He is under the care of an waist fitter, Dr. Link Iverson, with whom he has [...] He is under the care of a miller first and reports no foot-related issues. He has [...] seeing any other specialists besides us, his miller first, and endo. He is considering colon cancer [...] Medical History: Diagnosis Date BMI 40.0-44.9, adult ([facility] BMI 45.0-49.9, adult ([facility]) Constipation COVID-19 DM (diabetes mellitus) ([facility]) Dyslipidemia History of being hospitalized 03/2018 Uncontrolled diabetes, infection History of COVID-19 05/13/2020 Non-pressure chronic ulcer of other part of unspecified foot with unspecified severity ([facility]) 10/02/2022 Osteomyelitis of great toe of right foot ([facility]) 10/02/2022 Osteomyelitis of right foot ([facility]) 10/02/2022 Pressure ulcer of other site, stage 2 ([facility]) 10/02/2022 Ulcer of foot due to type 2 diabetes mellitus ([facility]) 10/02/2022 Ulcerated, foot, left, limited to breakdown of skin ([facility]) 10/02/2022 Past Surgical History: Procedure Laterality Date AMPUTATION FOOT / TOE Right 03/2018 2nd toe AMPUTATION FOOT / TOE Right 01/10/2021 Hallux - Dr. Moore AMPUTATION FOOT / TOE Left 05/17/2023 4th toe - Dr. Feldman CHEILECTOMY Left 02/14/2020 [facility] CHEILECTOMY Left 09/15/2018 1st Metatarsal FOOT [...] ([facility]-HCC) Amputation of toe, traumatic, left, sequela ([facility]) Arthritis of left foot Morbid obesity ([facility]) Type 2 diabetes mellitus with hyperglycemia, with long-term current use of insulin ([facility]) Lipoprotein deficiency disorder Hypertriglyceridemia Dyslipidemia Vitamin B 12 deficiency Poorly controlled diabetes mellitus ([facility]) Assessment & Plan 1. Diabetes mellitus: - Blood sugar levels at home range from 120s to 160s-170s fasting, which is well-controlled. - He is currently on Victoza, metformin, and long-acting insulin 46 units twice a day. He also usesshort-acting insulin with meals. His last A1c in November was between 7.8 and 7.9. - No additional blood work is needed today as his waist fitter has already ordered it. He will follow up with his waist fitter in March for further management. - He [...] 3 month follow up. documented in this encounterMatthew Ville [id number] History of Present illness Narrative* Maria Fernanda Granados, MEDICAL PLANNER - 10/19/2024 10:00 AM EDT Images from the original note were not included. Trev Ontiveros is a 44 y.o. male presents with chief complaint of Follow-up (3 month DM) HPI: HPI History of Present Illness The patient is a 44-year-old male who presents to the office for follow-up today. He is under the care of an waist fitter for his diabetes, with a scheduled appointment [...] necessitated surgical intervention and subsequent rehabilitation at [facility] due to his inability to bear weight on the foot. During his two-month stay at [facility], he contracted MRSA. He underwent physical therapy [...] He maintains regular annual check-ups with an oil tanker captain and dentist. He reports no gastrointestinal symptoms [...] Medical History: Diagnosis Date BMI 40.0-44.9, adult ([facility]) BMI 45.0-49.9, adult ([facility]) Constipation COVID-19 DM (diabetes mellitus) ([facility]) Dyslipidemia History of being hospitalized 03/2018 Uncontrolled diabetes, infection History of COVID-19 05/13/2020 Non-pressure chronic ulcer of other part of unspecified foot with unspecified severity ([facility]) 10/02/2022 Osteomyelitis of great toe of right foot ([facility]) 10/02/2022 Osteomyelitis of right foot ([facility]) 10/02/2022 Pressure ulcer of other site, stage 2 ([facility]) 10/02/2022 Ulcer of foot due to type 2 diabetes mellitus ([facility]) 10/02/2022 Ulcerated, foot, left, limited to breakdown of skin ([facility]) 10/02/2022 Past Surgical History: Procedure Laterality Date AMPUTATION FOOT / TOE Right 03/2018 2nd toe AMPUTATION FOOT / TOE Right 01/10/2021 Hallux - Dr. Moore AMPUTATION FOOT / TOE Left 05/17/2023 4th toe - Dr. Feldman CHEILECTOMY Left 02/14/2020 [facility] CHEILECTOMY Left 09/15/2018 1st Metatarsal FOOT [...] toe, traumatic, left, sequela ([facility]) Morbid obesity ([facility]) Hypertriglyceridemia Assessment & Plan 1. Type 2 diabetes mellitus. He is currently under the care of an waist fitter, with his most recent A1c level recorded [...] (around 01/19/2025) for DM. documented in this [facility]03-12-20[facility] History of Present illness Narrative* Blossom [...] [place] , [place]. Had MRSA while there. Had IV ATB 4 times a day for [address] Nolasco in [place]. Was taking Vit D weekly in rehab. Had PT daily there. Now area is approx 50 cent size (medial lateral right foot). Sees Dr Feldman. Has been home for 2 weeks now. Blood sugars 120-160 fasting and after meals.Taking Lantus 42-[facility] units. [facility]-pt will clarify [...] Wellness in Apr 2024) documented in this encounterPhelps HealthWcflwanjwz77-78-2676 Evaluation note* Diagnosis Onset Date Resolution Status [...] 2024 8:51amWound of right footacuteApril 2024 8:51am [facility] Work Phone: [phone] History of Present illness Narrative* Blossom Cody, MEDICAL PLANNER - 04/19/2024 10:00 AM EST Images from [...] Feet: Comments: Foot exam 09/06/[address] oMore, also sees Dr Feldman, and per pt [...] polyneuropathy associated with type 2 diabetes mellitus ([facility]) Comments: Pt sees endo. HgbA1c 01/31 7.4 (prior 9.7 in October). Enc yearly eye exam. Watch sweets, portions on carbs. Enc to to be as active as able. Endo did lab Jan 19 Urine micro, CMP, Lipid. 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 Avoid sweets. enc fruit and elliot veget, lean protein nuts,exercise Poorly controlled diabetes mellitus ([facility]) Type 2 diabetes mellitus with hyperglycemia, with long-term current use of insulin (CMS/HCC): See Endo Amputation of toe, traumatic, left, sequela ([facility]): Sees Podiatry Diabetic autonomic neuropathy associated with type 2 diabetes mellitus ([facility]/HCC: See above Acquired hallux valgus, unspecified laterality: Sees Podiatry Morbid obesity ([facility]): See above Vitamin B12 deficiency: 374 on recent lab in Jan Lipoprotein deficiency disorder F/U in July or August for recheck-hypertension/Diabetes, sooner if concerns documented in this [facility]10-21-2024 Telephone encounter Note* Telephone Encounter - Blossom Cody NP - 02/28/2024 11:53 AM EDT Rx sent [facility] [id number] Miscellaneous Notes* Telephone Encounter - Blossom Cody NP - 02/28/2024 11:53 AM EDT Rx sent documented in this [facility]09-11-2024 History of Present illness Narrative* Blossom [...] polyneuropathy associated with type 2 diabetes mellitus ([facility]) Comments: HgbA1c 9.7 in October. He sees Endo. Plans to do lab for them this week. He has Endo appt next week. Enc yearly eye exams. Enc to watch portions on carbs, avoid sweets. Try to be as active as able. Type 2 diabetes mellitus with neurological manifestation ([facility]) Essential hypertension: Controlled. Pt will verify what dose he has at home ie 30 or 40mg of Lisinopril. 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 PVU documented in this [facility]08-22-2024 Telephone encounter Note* Telephone Encounter - Blossom Cody NP - 12/30/2023 4:44 PM EDT Rx sent [facility] [id number] Miscellaneous Notes* Telephone Encounter - Blossom Cody NP - 12/30/2023 4:44 PM EDT Rx sent documented in this [facility]02-07-2024 History of Present illness Narrative* Blossom [...] sugars ranging from 120-170's. Sees [facility] in [place], next appt September 13 with them. Taking [...] polyneuropathy associated with type 2 diabetes mellitus ([facility]) Comments: Sees [facility], last HgbA1c 8.11 May 2023 (prior 8.9 end of December). Pt asked me why we can't just take care of his Diabetes, so he doesn't have to go to [place]. I told him because his sugars are [...] DM care again. 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 Now has left foot toe amputated. Per pt toe is healing Ulcer of foot due to type 2 diabetes mellitus ([facility]): Hx of Poorly controlled diabetes mellitus ([facility]): Last HgbA1c 8.2 Type 2 diabetes mellitus with hyperglycemia, with long-term current use of insulin ([facility]): As above Vitamin B 12 deficiency Comments: Last WNL at 351 Hx of diabetic neuropathy: Hx of 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CMS/HCC): Hx of Morbid obesity ([facility]) Comments: Enc healthy diet, watch sweets carbs. Balance diet with carb proteinm try to add vegeatbles, Enc physical activity as able Hypertriglyceridemia ([facility]) Comments: Last lipids 04/01 Chol 142, [...] neuropathy, with long-term current use of insulin ([facility]): Hx of senior living (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 (Z79.4): Hx of Acquired absence of other toe(s), unspecified side (Z89.429): Hx of Type 2 diabetes mellitus with diabetic neuropathy, with long-term current use of insulin ([facility]);Hx of Body mass index [BMI] 50.0-59.9, adult (Z68.43): See above. Discussed seeing weight loss provider or seeing someone about gastric bypass-pt declined both. He is not interested in this Type 2 diabetes mellitus with foot ulcer, with long-term current use of insulin ([facility]): Hx of (no ulcer at this [...] Type 2 Diabetes mellitus with hyperglycemia with shelter current use of insulin (CMS/[facility]): Hx of Morbid obesity: See above documented in this encounterPhelps [id number] Evaluation note* Encounter Date Diagnosis Assessment Notes Treatment Notes Treatment Clinical Notes Jun, Type 2 diabetes mellitus with hy perglycemia (ICD-10 - E11.65) [facility] Other 01-31-2024 Evaluation note* Encounter Date Diagnosis [...] or diabetes medication issues. 6. Prescriptions: [facility] [place]- syringes, pen needles, victoza sent. 06/09/23 7. [...] - R23.4) keep f/u with Dr. Feldman [facility] Other 08-28-2023 Evaluation note* Encounter Date Diagnosis [...] for Lispro/ozempic 0.5mg sent to [facility] in [place] 01/04/23 7. Prescriptions will not be filled [...] has apt scheduled with Dr. Feldman today [facility] Other 05-30-2023 NotePROCEDURE: XR FOOT LT MIN [...] Electronically authenticated by: FRANCO FRANCES Date: 2022-10-06 14:13[facility]05-04-20[facility] Evaluation note* Encounter Date Diagnosis Assessment Notes Treatment Notes Treatment Clinical Notes September, Type 2 diabetes mellitus with hy perglycemia (ICD-10 - E11.65) [facility] Other 04-17-2023 NotePROCEDURE: XR FOOT LT MIN [...] Electronically authenticated by: QASIM SOSA Date: 2022-08-24 12:46[facility]02-16-2023 Evaluation note* Encounter Date Diagnosis Assessment Notes Treatment Notes Treatment Clinical Notes Jun, Type 2 diabetes mellitus with hy perglycemia (ICD-10 - E11.65) 1. Uncontrolled, a Type 2 diabetes with A1c of 8.2% 2. Blood glucose levels above target. Discussed with pt restarting ozempic, he had s/e from higher dose ozempic 1mg and concern with cost works at [employer]. Pt agreeable to starting sample ozempic 0.5mg [...] 6. Prescriptions: Syringes/ozempic/steglatro sent to [facility] in [place] 06/25/22 7. Prescriptions will not be filled [...] target Jun,MI 50.0-59.9, adult (ICD-10 - Z68.43) [facility] Other [id number] NotePROCEDURE: XR ANKLE LT MIN 3 V, [...] Electronically authenticated by: GISSEL NAYAK Date: 2022-06-16 16:33[facility]02-07-2023 NotePROCEDURE: XR ANKLE LT MIN 3 [...] Electronically authenticated by: GISSEL NAYAK Date: 2022-06-16 16:33[facility]08-30-2022 Evaluation note* Encounter Date Diagnosis Assessment [...] last visit, continue with weight loss efforts [facility] Other 01-01-2021 History general Narrative - Reported* Type Description Date Medical History type II diabetes Medical HistoryhypertensionMedical HistoryhyperlipidemiaMedical Historycovid urgical HistoryUlcer on left great toe O8Kmenyzlr HistoryPartial amputation Right great toeurgical HistoryAll toes right foot amputated 09/2021Hospitalization HistoryToe [id number] [facility] Other 01-01-2021 History general Narrative - Reported* Type Description Date Medical History type II diabetes Medical HistoryhypertensionMedical HistoryhyperlipidemiaMedical Historycovid urgical HistoryUlcer on left great toe C9Mbaszcwa HistoryPartial amputation Right great toeurgical HistoryAll toes right foot amputated urgical HistoryLeft great toe corrective surgery [facility] Hospitalue10/2022Hospitalization HistoryToe [id number] [facility] Other Chief complaint+Reason for visit Narrative* Chief Complaint no meter Reason for Visit BMI 50.0-59.9, adult Dietary counseling and surveillance Hypertension Mixed hyperlipidemia Type 2 diabetes mellitus with hyperglycemia [facility] Work Phone: [place]izq complaint+Reason for visit Narrative* Chief Complaint meter Reason for Visit BMI 50.0-59.9, adult Dietary counseling and surveillance Hypertension Mixed hyperlipidemia Type 2 diabetes mellitus with hyperglycemia Wound of left foot Wound of right foot [facility] Work Phone: Evaluation noteNo InformationNortWilkes[facility] [employer] Other Evaluation note* Diagnosis Diabetic polyneuropathy associated with type 2 diabetes mellitus (CMS/HCC)- Primary Diabetic neuropathic arthropathy ([facility]/HCC) Type II or unspecified type diabetes mellitus with neurological manifestations, not stated as uncontrolled Type 2 diabetes mellitus with neurological manifestation ([facility]/HCC) 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, sequela ([facility]/HCC) Ulcer of foot due to type 2 diabetes mellitus ([facility]/HCC) Vitamin B 12 deficiency Other B-complex deficiencies Hx of diabetic neuropathy 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[facility]/HCC) Lipoprotein deficiencies Hypertriglyceridemia ([facility]/HCC) Pure hyperglyceridemia 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, 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) Essential hypertension Unspecified essential hypertension Nasal congestion Other diseases of nasal cavity and sinuses Type 2 diabetes mellitus with diabetic autonomic neuropathy, with long-term current use of insulin (CMS/HCC) senior living (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 (Z79.4) Acquired absence of other toe(s), unspecified side (Z89.429) Type 2 diabetes mellitus with diabetic neuropathy, with long-term current use of insulin ([facility]) Body mass index [BMI] 50.0-59.9, adult (Z68.43) Type 2 diabetes mellitus with foot ulcer, with long-term current use of insulin ([facility]) 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.49) Status post amputation of lesser toe, unspecified laterality ([facility]) Arthritis of left foot Acquired hallux valgus of left foot Type 2 diabetes mellitus with hyperglycemia, with long-term current use of insulin ([facility]) Morbid obesity [place] Morbid obesity documented in this encounter [facility] HealthcareEvaluation noteNo assessment information availableThe [facility] Work Phone: Evaluation note* Diagnosis Onset Date Resolution Status BMI 50.0-59.9, adult acuteDietary counseling and surveillanceacuteHypertensionacuteMixed hyperlipidemiaacuteType 2 diabetes mellitus with hyperglycemiaacute [facility] Work Phone: Evaluation note* Diagnosis Onset Date Resolution Status BMI 50.0-59.9, adult acuteDietary counseling and surveillanceacuteHypertensionacuteMixed hyperlipidemiaacuteType 2 diabetes mellitus with hyperglycemiaacuteWound of left footacuteWound of right footacute [facility] Work Phone: Evaluation note* Diagnosis Pure hyperglyceridemia ([facility]) Pure hyperglyceridemia documented in this encounter [facility] HealthcareEvaluation note* Diagnosis Diabetic polyneuropathy associated with type 2 diabetes mellitus ([facility])- Primary Type 2 diabetes mellitus with neurological manifestation ([facility]) Essential hypertension Unspecified essential hypertension 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, subsequent encounter ([facility]) Type 2 diabetes mellitus with hyperglycemia, with long-term current use of insulin ([facility]) Dyslipidemia ([facility]) Other and unspecified hyperlipidemia Hypertriglyceridemia ([facility]) Pure hyperglyceridemia Vitamin B 12 deficiency Other B-complex deficiencies Pure hyperglyceridemia ([facility]) Pure hyperglyceridemia documented in this encounter [facility] HealthcareEvaluation note* Diagnosis Diabetic polyneuropathy associated with type 2 diabetes mellitus ([facility])- Primary Wellness examination Type 2 diabetes mellitus with neurological manifestation ([facility]) Essential hypertension Unspecified essential hypertension Traumatic amputation of toe of right foot, subsequent encounter ([facility] Dyslipidemia ([facility]) Other and unspecified hyperlipidemia Hypertriglyceridemia ([facility]) Pure hyperglyceridemia Poorly controlled diabetes mellitus ([facility]) Type II or unspecified type diabetes mellitus without mention of complication, not stated as uncontrolled Type 2 diabetes mellitus with hyperglycemia, with long-term current use of insulin ([facility]) Diabetic autonomic neuropathy associated with type 2 diabetes mellitus ([facility]) Type II or unspecified type diabetes mellitus with neurological manifestations, not stated as uncontrolled Acquired hallux valgus, unspecified laterality Morbid obesity ([facility]) Morbid obesity Vitamin B 12 deficiency Other B-complex deficiencies 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[facility]) Lipoprotein deficiencies documented in [facility] encounter [facility]* Diagnosis Essential hypertension Unspecified essential hypertension documented in this encounter [facility]* Diagnosis Diabetic polyneuropathy associated with type 2 diabetes mellitus ([facility])- Primary Type 2 diabetes mellitus with neurological manifestation ([facility]) 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, sequela ([facility]) Type 2 diabetes mellitus with hyperglycemia, with long-term current use of insulin ([facility]) Ulcer of right foot, unspecified ulcer stage (HCC) ([facility]) Poorly controlled diabetes mellitus ([facility]) Type II or unspecified type diabetes mellitus without mention of complication, not stated as uncontrolled Dyslipidemia ([facility]) Other and unspecified hyperlipidemia Hypertriglyceridemia ([facility]) Pure hyperglyceridemia Essential hypertension Unspecified essential hypertension Morbid obesity ([facility]) Morbid obesity Vitamin B 12 deficiency Other B-complex deficiencies Depressed mood Insomnia, unspecified type documented in this encounter [facility]* Diagnosis 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)- Primary Essential hypertension Unspecified essential hypertension 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, sequela ([facility]-HCC) Morbid obesity ([facility]) Morbid obesity Hypertriglyceridemia Pure hyperglyceridemia documented in this encounter [facility]* Diagnosis Onset Date Resolution Status Admit Date BMI 50.0-59.9, adult acuteJuly 2024 9:51amDietary counseling and surveillanceacuteJuly 2024 9:51amHypertensionacuteJuly 2024 9:51amMixed hyperlipidemiaacuteJuly 2024 9:51amType 2 diabetes mellitus with hyperglycemiaacuteJuly 2024 9:51amWound of left footacuteJuly 2024 9:51amWound of right footacuteJuly 2024 9:51am [facility] Work Phone: [...] amputation of toe of right foot, sequela ([facility]-HCC) Arthritis of left foot Morbid obesity ([facility]-HCC) [...] deficiencyacuteNov2024 9:46am Wound of right footacuteNov2024 9:46am [facility] Work Phone: Reason for referral (narrative)No reason [...] content) DATE CREATED AUTHOR 08/27/2021 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 DATE CREATED AUTHOR AUTHOR'S ORGANIZ ATION 10/17/2022 [facility] DATE CREATED AUTHOR AUTHOR'S ORGANIZ ATION 04/29/2024 [facility] DATE CREATED AUTHOR AUTHOR'S ORGANIZ ATION 02/01/2025 [facility] EPIC DATE CREATED AUTHOR AUTHOR'S [...] MemberRelationshipSpecialtyStart DateEnd Natalie Lafleur MD [address] [place] [address] PCP - [facility] Medicine09/15/22Team MemberRelationshipSpecialtyStart DateEnd Date Natalie Hernandez MD [address] [place] [address] PCP - [facility] Medicine09/15/22 Team Status: Inactive Member Role [...] MemberRelationshipSpecialtyStart DateEnd Natalie Lafleur MD [address] [place] [address] PCP - GeneralFamily Medicine09/15/22 Blossom Cody NP [address] [facility] [place] [address] Nurse PractitionerFacoly Medicine01/19/24Team MemberRelationshipSpecialtyStart DateEnd Date Natalie Hernandez MD [address] [facility] [place] [address] PCP - GeneralFamily Medicine09/15/22 Blossom Cody NP [address] [facility] [place] [address] [facility] Medicine01/19/24Te MemberRelationshipSpecialtyStart DateEnd Date Natalie Hernandez MD [address] [facility] [place] [address] PCP - GeneralFami Medicine09/15/22 Blossom Cody NP [address] [facility] [place] [address] [facility] Medicine01/19/24Te MemberRelationshipSpecialtyStart DateEnd Date Naatlie Hernandez MD [address] [facility] [place] [address] PCP - [facility] Medicine09/15/22 Blossom Cody NP [address] [facility] [place] [address] [facility] Medicine01/19/24Team MemberRelationshipSpecialtyStart DateEnd Date Natalie Hernandez MD [address] [place] [address] PCP - [facility]Ad[facility] Medicine09/15/22Team MemberRelationshipSpecialtyStart DateEnd Date Natalie Hernandez MD [address] [place] [address] PCP - [facility]Ad[facility] Medicine09/15/22Team MemberRelationshipSpecialtyStart DateEnd Date Natalie Hernandez MD [address] [place] [address] PCP - [facility]09/15/22 Blossom Cody NP [address] [place] [address] [facility]01/19/24Team MemberRelationshipSpecialtyStart DateEnd Date Natalie Hernandez MD [address] [place] [address] PCP - [facility] Medicine09/15/22 Blossom Cody NP [address] [place] [address] Nurse Pract[facility] Medicine01/19/24Team MemberRelationshipSpecialtyStart DateEnd Date Natalie Hernandez MD [address] [place] [address] PCP - [facility]09/15/22 Blossom Cody NP [address] [place] [address] [facility]01/19/24Team MemberRelationshipSpecialtyStart DateEnd Date Natalie Hernandez MD PCP - GeneralFamily Medicine09/15/22 Blossom Cody NP [facility] Medicine01/19/24Team MemberRelationshipSpecialtyStart DateEnd Date Natalie Hernandez MD PCP - GeneralFamily Medicine09/15/22 Blossom Cody NP [facility] Medicine01/19/24 Team Status: Active Member Role Status Dates MATY TorresC Primary Care Provider Active Team Status: Inactive Member Role Status Dates Link Ortega APRN Attending Provider Active Start: November 27, 2024 End: November 27, 2024Sajuan Granados NP-[place] Care ProviderActiveStart: November 27, 2024 End: November 27, 2024Team MemberRelationshipSpecialtyStart DateEnd Date Tres Oleary MD [address] [place] [address] PCP - Generalmily Medicine01/11/25 Blossom Cody NP [facility]01/19/24Team MemberRelationshipSpecialtyStart DateEnd Date Tres Oleary MD [address] [place] [address] PCP - GeneralFamily Medicine01/11/25 Blossom Cody NP [facility] Medicine01/19/24Team MemberRelationshipSpecialtyStart DateEnd Date Tres Oleary MD [address] [facility] [place] [address] PCP - GeneralFamily Medicine01/11/25 Blossom Cody NP Nurse PractitionerFamily Medicine01/19/24Team MemberRelationshipSpecialtyStart DateEnd Date Natalie Hernandez MD PCP - GeneralFamily Medicine Tres Oleary MD [address] [facility] [place] [address] PCP - GeneralFamily Medicine01/11/25 Blossom Cody NP Nurse Practitionermily Medicine01/19/24Team MemberRelationshipSpecialtyStart DateEnd Date Natalie Hernandez MD PCP - GeneralFamily Medicine Tres Oleary MD [address] [facility] [place] [address] PCP - GeneralFamily Medicine01/11/25 Blossom Cody NP Nurse Practitionermily Medicine01/19/24Team MemberRelationshipSpecialtyStart DateEnd Date Natalie Hernandez MD PCP - GeneralFamily Medicine Tres Oleary MD [address] [facility] [place] [address] PCP - GeneralFacoly Medicine01/11/25 Blossom Cody NP Nurse PractitionerFacoly Medicine01/19/24 Team Status: Active Member Role/Relationship Status [...] BE BASED ON THE PRIMARY CLINICAL RECORDS. [employer] [facility]. provides no warranty or guarantee of the accuracy or completeness of information in this document.
== END 2025-04-10 10:50 | disposition home or self-care (01) ==
LOC: WC 10:49
PROVIDERS: PCP Family Medicine; Visit Provider Physician Assistant
DX: L84 Corns and callosities (principal); E11.65 Type 2 diabetes mellitus with hyperglycemia
CPT/HCPCS: G0463

== ENCOUNTER 2025-05-09 09:54 | Outpatient (OUT) | payer OTHER, SELFPAY ==
--- OUTSIDE RECORDS SUMMARY | 2024-04-26 03:00 | XMS_ITS ---
Author Organization [facility] in [place] Address [address] [place] [address] Care Team Providers Care Solar Sales Associate Name Role Phone Natalie Ryan Primary Care Provider Jesus Dai Unavailable [phone] REASON FOR VISIT wound - RT foot I&D Encounters Encounter Location Date Provider Diagnosis THE [address] [address] 04/26/2024 Jesus Feldman Plan Of Treatment No Information Progress Notes * MIKE Trev BDOB: 0 (44 yo M)Acc No.[id number]:04/26/2024 UNLOCKED PROGRESS NOTE Patient:Trev ARCHER :?Jesus Feldman DPM, MSDOB:1980???Age: 43 Y???Sex:MaleDate:04/26/2024hone:[phone]:[address] [place] [id number]:Natalie Marjan Out:01:07 PM EST * * Electronic signature of Jesus Feldman DPM on 05/09/2025 at 09:59 AM ESTSign off status: PendingVisit Status:?CHK (Check Out) * Provider: Boris Feldman DPM, MS Date: 06/27/2023 Generated for Printing/Faxing/eTransmitting on:?05/09/2025 09:59 AM EST
--- OUTSIDE RECORDS SUMMARY | 2024-04-28 03:30 | XMS_ITS ---
Author Organization The [facility] in [place] Address [address] [place] [address] Care Team Providers Care Block Saw Operator Name Role Phone Natalie Ryan Primary Care Provider Jesus Dai Unavailable [phone] REASON FOR VISIT wound - I&D Encounters Encounter Location Date Provider Diagnosis [facility] [address] [place] [address] 04/28/2024 Jesus Feldman Plan Of Treatment No Information Progress Notes * MIKE, Trev BDOB: 0 (44 yo M)Acc No.[id number]:04/28/2024 UNLOCKED PROGRESS NOTE Patient:Trev ARCHER :?Jesus Feldman DPM, MSDOB:1980???Age: 43 Y???Sex:MaleDate:04/28/2024hone:[phone]:[address] [place], [place]-[address]Pcp:Natalie Marjan Out:01:10 PM EST * * Electronic signature of Jesus Feldman DPM on 05/09/2025 at 09:59 AM ESTSign off status: PendingVisit Status:?CHK (Check Out) * Provider: Boris Feldman DPM, MS Date: 06/29/2023 Generated for Printing/Faxing/eTransmitting on:?05/09/2025 09:59 AM EST
--- OUTSIDE RECORDS SUMMARY | 2025-05-09 09:59 | XMS_ITS | Patient Health Record ---
Author Organization [facility] [place] Address [address] [place] [address] Care Team Providers Care Die Fitter Name Role Phone Natalie Ryan Primary Care Provider Unavailabl e Results Component Value Reference Range Notes Anaerobic Culture (Not yet r eviewed by provider) Interpretation: Performing Lab: Notes/Report: [facility] , Anaerobic Culture See Below For Report Anaerobic Culture Anaerobic CultureNo anaerobic growth in 72 hours. Anaerobic Culture Performing Lab:see noteLC - [facility] LBAerobic Culture (Not yet reviewed by provider) Interpretation: Performing Lab: Notes/Report: [facility] ,Aerobic CultureSee Below For Report Aerobic Culture Organism: Gram [...] Tetracycline R F Tobramycin Tobramycin S F Trimethoprim/Sulfamethoxazole Trimethoprim/Sulfamethoxazole R F Aerobic Culture*ABNORMAL* Aerobic Culture Organism: Gram negative rivas : [...] Tetracycline R F Tobramycin Tobramycin S F Trimethoprim/Sulfamethoxazole Trimethoprim/Sulfamethoxazole R F Aerobic CultureModerate growth Aerobic Culture Organism: Gram negative rivas [...] Tetracycline R F Tobramycin Tobramycin S F Trimethoprim/Sulfamethoxazole Trimethoprim/Sulfamethoxazole R F Aerobic CultureGram negative rivas Aerobic Culture Organism: Gram negative [...] Tetracycline R F Tobramycin Tobramycin S F Trimethoprim/Sulfamethoxazole Trimethoprim/Sulfamethoxazole R F Aerobic CultureOrganism: Acinetobacter baumannii (DRY FINISHER) : Aerobic Culture Organism: Gram negative rivas [...] Tetracycline R F Tobramycin Tobramycin S F Trimethoprim/Sulfamethoxazole Trimethoprim/Sulfamethoxazole R F Aerobic Culture*ABNORMAL* Aerobic Culture Organism: Gram negative rivas : [...] Tetracycline R F Tobramycin Tobramycin S F Trimethoprim/Sulfamethoxazole Trimethoprim/Sulfamethoxazole R F Aerobic CultureCarbapenem-resistant Aerobic Culture Organism: Gram negative rivas : [...] Tetracycline R F Tobramycin Tobramycin S F Trimethoprim/Sulfamethoxazole Trimethoprim/Sulfamethoxazole R F Aerobic CultureMulti-Drug Resistant Organism Aerobic Culture Organism: Gram negative [...] Tetracycline R F Tobramycin Tobramycin S F Trimethoprim/Sulfamethoxazole Trimethoprim/Sulfamethoxazole R F Aerobic CultureModerate growth Aerobic Culture Organism: Gram negative rivas [...] Tetracycline R F Tobramycin Tobramycin S F Trimethoprim/Sulfamethoxazole Trimethoprim/Sulfamethoxazole R F Aerobic CultureAcinetobacter baumannii (DRY FINISHER) Aerobic Culture Organism: Gram negative rivas : [...] Tetracycline R F Tobramycin Tobramycin S F Trimethoprim/Sulfamethoxazole Trimethoprim/Sulfamethoxazole R F Aerobic CultureSee Below For Report Aerobic Culture Organism: Gram [...] Tetracycline R F Tobramycin Tobramycin S F Trimethoprim/Sulfamethoxazole Trimethoprim/Sulfamethoxazole R F Aerobic CultureSee Below For Report Aerobic Culture Organism: Gram [...] Tetracycline R F Tobramycin Tobramycin S F Trimethoprim/Sulfamethoxazole Trimethoprim/Sulfamethoxazole R F Aerobic CulturePerformed at: [facility] Aerobic Culture Organism: Gram negative rivas : [...] Tetracycline R F Tobramycin Tobramycin S F Trimethoprim/Sulfamethoxazole Trimethoprim/Sulfamethoxazole R F Aerobic [address] [place] [phone] Aerobic Culture Organism: Gram negative rivas : [...] Tetracycline R F Tobramycin Tobramycin S F Trimethoprim/Sulfamethoxazole Trimethoprim/Sulfamethoxazole R F Aerobic CultureLab Director: Lalo Everett PhD, Phone: [phone] Aerobic Culture Organism: Gram negative rivas : [...] Tetracycline R F Tobramycin Tobramycin S F Trimethoprim/Sulfamethoxazole Trimethoprim/Sulfamethoxazole R F Aerobic CultureSee Below For Report Aerobic Culture Organism: Gram [...] Tetracycline R F Tobramycin Tobramycin S F Trimethoprim/Sulfamethoxazole Trimethoprim/Sulfamethoxazole R F Aerobic CultureSee Below For Report Aerobic Culture Organism: Gram [...] Tetracycline R F Tobramycin Tobramycin S F Trimethoprim/Sulfamethoxazole Trimethoprim/Sulfamethoxazole R F Aerobic CultureSee Below For Report Aerobic Culture Organism: Gram [...] Tetracycline R F Tobramycin Tobramycin S F Trimethoprim/Sulfamethoxazole Trimethoprim/Sulfamethoxazole R F Aerobic CultureSee Below For Report Aerobic Culture Organism: Gram [...] Tetracycline R F Tobramycin Tobramycin S F Trimethoprim/Sulfamethoxazole Trimethoprim/Sulfamethoxazole R F Aerobic CultureSee Below For Report Aerobic Culture Organism: Gram [...] Tetracycline R F Tobramycin Tobramycin S F Trimethoprim/Sulfamethoxazole Trimethoprim/Sulfamethoxazole R F Aerobic CultureSee Below For Report Aerobic Culture Organism: Gram [...] Tetracycline R F Tobramycin Tobramycin S F Trimethoprim/Sulfamethoxazole Trimethoprim/Sulfamethoxazole R F Aerobic CultureSee Below For Report Aerobic Culture Organism: Gram [...] Tetracycline R F Tobramycin Tobramycin S F Trimethoprim/Sulfamethoxazole Trimethoprim/Sulfamethoxazole R F Aerobic CultureSee Below For Report Aerobic Culture Organism: Gram [...] Tetracycline R F Tobramycin Tobramycin S F Trimethoprim/Sulfamethoxazole Trimethoprim/Sulfamethoxazole R F Aerobic CultureSee Below For Report Aerobic Culture Organism: Gram [...] Tetracycline R F Tobramycin Tobramycin S F Trimethoprim/Sulfamethoxazole Trimethoprim/Sulfamethoxazole R F Aerobic CultureSee Below For Report Aerobic Culture Organism: Gram [...] Tetracycline R F Tobramycin Tobramycin S F Trimethoprim/Sulfamethoxazole Trimethoprim/Sulfamethoxazole R F Aerobic CultureSee Below For Report Aerobic Culture Organism: Gram [...] Tetracycline R F Tobramycin Tobramycin S F Trimethoprim/Sulfamethoxazole Trimethoprim/Sulfamethoxazole R F Aerobic CultureSee Below For Report Aerobic Culture Organism: Gram [...] Tetracycline R F Tobramycin Tobramycin S F Trimethoprim/Sulfamethoxazole Trimethoprim/Sulfamethoxazole R F Aerobic CultureSee Below For Report Aerobic Culture Organism: Gram [...] Tetracycline R F Tobramycin Tobramycin S F Trimethoprim/Sulfamethoxazole Trimethoprim/Sulfamethoxazole R F Aerobic CultureSee Below For Report Aerobic Culture Organism: Gram [...] Tetracycline R F Tobramycin Tobramycin S F Trimethoprim/Sulfamethoxazole Trimethoprim/Sulfamethoxazole R F Performing Lab:see note LC - [facility] LB SEE REPORT - Body Builder Id information not found for OBX-specific promotions producer legend Fungus (Mycology) Culture (Not yet reviewed by provider) Interpretation: Performing Lab: Notes/Report: [facility] ,Fungus (Mycology) CultureSee Below For Report Fungus (Mycology) Culture Fungus (Mycology) CultureCulture Report: Fungus (Mycology) Culture Fungus (Mycology) CultureThe specimen submitted for fungus culture has been received and Fungus (Mycology) Culture Fungus (Mycology) Cultureculture has been initiated. Fungus (Mycology) Culture Fungus (Mycology) CultureNo yeast or mold isolated after 4 weeks. Fungus (Mycology) Culture Fungus (Mycology) CulturePerformed at: [facility] Fungus (Mycology) Culture Fungus (Mycology) [id number] [place], [place] [phone] Fungus (Mycology) Culture Fungus (Mycology) CultureLab Director: Lalo Everett PhD, Phone: [phone] Fungus (Mycology) Culture Performing Lab:see note LC - [facility] LB SEE REPORT - Body Builder Id information not found for OBX-specific promotions producer legend Fungus Stain (Not yet reviewed by provider) Interpretation: Performing Lab: Notes/Report: [facility] ,Fungus StainSee Below For Report Fungus Stain Fungus StainKOH/Calcofluor preparation: no fungus observed. Fungus Stain Performing Lab:see note - [facility] LBAcid Fast Culture (Not yet reviewed by provider) Interpretation: Performing Lab: Notes/Report: Comment right ankle tissue [facility] ,Acid Fast CultureSee Below For Report Acid Fast Culture Specimen has been received and testing has been initiated. Acid Fast CultureNegative Acid Fast Culture Specimen has been received and testing has been initiated. Acid Fast CultureNo acid fast bacilli isolated after 6 weeks. Acid Fast Culture Specimen has been received and testing has been initiated. Acid Fast CulturePerformed at: [facility] Acid Fast Culture Specimen has been received and testing has been initiated. Acid Fast [id number] [place], [place] [phone] Acid Fast Culture Specimen has been received and testing has been initiated. Acid Fast CultureLab Director: Lalo Everett PhD, Phone: [phone] Acid Fast Culture Specimen has been received and testing has been initiated. Performing Lab:see note - [facility] LB SEE REPORT - Body Builder Id information not found for OBX-specific promotions producer legend Acid Fast Smear (Not yet reviewed by provider) Interpretation: Performing Lab: Notes/Report: Comment right ankle tissue [facility] ,Acid Fast SmearSee Below For Report Acid Fast Smear Negative Performing Lab:see noteLC - [facility] LBAFB Specimen Processing (Not yet reviewed by provider) Interpretation: Performing Lab: Notes/Report: Comment right ankle tissue [facility] ,AFB Specimen ProcessingSee Below For Report AFB Specimen Processing AFB Specimen ProcessingTissue Grinding AFB Specimen Processing Performing Lab:see noteLC - [facility] LBGRAM STAIN (Not yet reviewed by provider) Interpretation: Performing Lab: Notes/Report: [facility] ,Gram StainSee Below For Report Gram Stain GSEPC Epithelial Cells Gram StainNS NONE SEEN Gram Stain GSEPC Epithelial Cells Gram StainGSNOS Organisms Seen Gram Stain GSEPC Epithelial Cells Gram StainNO NO ORGANISM SEEN Gram Stain GSEPC Epithelial Cells Gram StainGSWBC White Blood Cells Gram Stain GSEPC Epithelial Cells Gram StainF FEW Gram Stain GSEPC Epithelial Cells Performing Lab:see noteML - [facility] LBAerobic Culture (Not yet reviewed by provider) Interpretation: Performing Lab: Notes/Report: [facility] ,Aerobic CultureSee Below For Report Aerobic Culture Organism: Gram negative rivas : O:CRAB Isolated O:GNR Isolated Organism: 1.1 Antibiotic Interpretation [facility] Status Aerobic Culture*ABNORMAL* Aerobic Culture Organism: Gram negative rivas : O:CRAB Isolated O:GNR Isolated Organism: 1.1 Antibiotic Interpretation [facility] Status Aerobic CultureModerate growth Aerobic Culture Organism: Gram negative rivas : O:CRAB Isolated O:GNR Isolated Organism: 1.1 Antibiotic Interpretation [facility] Status Aerobic CultureGram negative rivas Aerobic Culture Organism: Gram negative rivas : O:CRAB Isolated O:GNR Isolated Organism: 1.1 Antibiotic Interpretation [facility] Status Aerobic CultureOrganism: Acinetobacter baumannii (DRY FINISHER) : Aerobic Culture Organism: Gram negative rivas : O:CRAB Isolated O:GNR Isolated Organism: 1.1 Antibiotic Interpretation [facility] Status Aerobic Culture*ABNORMAL* Aerobic Culture Organism: Gram negative rivas : O:CRAB Isolated O:GNR Isolated Organism: 1.1 Antibiotic Interpretation [facility] Status Aerobic CultureCarbapenem-resistant Aerobic Culture Organism: Gram negative rivas : O:CRAB Isolated O:GNR Isolated Organism: 1.1 Antibiotic Interpretation [facility] Status Aerobic CultureMulti-Drug Resistant Organism Aerobic Culture Organism: Gram negative rivas : O:CRAB Isolated O:GNR Isolated Organism: 1.1 Antibiotic Interpretation [facility] Status Aerobic CultureModerate growth Aerobic Culture Organism: Gram negative rivas : O:CRAB Isolated O:GNR Isolated Organism: 1.1 Antibiotic Interpretation [facility] Status Aerobic CultureAcinetobacter baumannii (DRY FINISHER) Aerobic Culture Organism: Gram negative rivas : O:CRAB Isolated O:GNR Isolated Organism: 1.1 Antibiotic Interpretation [facility] Status Aerobic CultureSee Below For Report Aerobic Culture Organism: Gram negative rivsa : O:CRAB Isolated O:GNR Isolated Organism: 1.1 Antibiotic Interpretation [facility] Status Aerobic CultureSee Below For Report Aerobic Culture Organism: Gram negative rivas : O:CRAB Isolated O:GNR Isolated Organism: 1.1 Antibiotic Interpretation [facility] Status Aerobic CulturePerformed at: - [facility] Aerobic Culture Organism: Gram negative rivas : O:CRAB Isolated O:GNR Isolated Organism: 1.1 Antibiotic Interpretation [facility] Status Aerobic [id number] [place], [place] [phone] Aerobic Culture Organism: Gram negative rivas : O:CRAB Isolated O:GNR Isolated Organism: 1.1 Antibiotic Interpretation [facility] Status Aerobic CultureLab Director: Lalo Everett PhD, Phone: [phone] Aerobic Culture Organism: Gram negative rivas : O:CRAB Isolated O:GNR Isolated Organism: 1.1 Antibiotic Interpretation [facility] Status Aerobic CultureSee Below For Report Aerobic Culture Organism: Gram negative rivas : O:CRAB Isolated O:GNR Isolated Organism: 1.1 Antibiotic Interpretation [facility] Status Aerobic CultureAmpicillin/Sulbactam S F Aerobic Culture Organism: Gram negative rivas : O:CRAB Isolated O:GNR Isolated Organism: 1.1 Antibiotic Interpretation [facility] Status Aerobic CultureCefepime I F Aerobic Culture Organism: Gram negative rivas : O:CRAB Isolated O:GNR Isolated Organism: 1.1 Antibiotic Interpretation [facility] Status Aerobic CultureCefotaxime R F Aerobic Culture Organism: Gram negative rivas : O:CRAB Isolated O:GNR Isolated Organism: 1.1 Antibiotic Interpretation [facility] Status Aerobic CultureCeftazidime I F Aerobic Culture Organism: Gram negative rivas : O:CRAB Isolated O:GNR Isolated Organism: 1.1 Antibiotic Interpretation [facility] Status Aerobic CultureCeftriaxone I F Aerobic Culture Organism: Gram negative rivas : O:CRAB Isolated O:GNR Isolated Organism: 1.1 Antibiotic Interpretation [facility] Status Aerobic CultureCiprofloxacin R F Aerobic Culture Organism: Gram negative rivas : O:CRAB Isolated O:GNR Isolated Organism: 1.1 Antibiotic Interpretation [facility] Status Aerobic CultureGentamicin S F Aerobic Culture Organism: Gram negative rivas : O:CRAB Isolated O:GNR Isolated Organism: 1.1 Antibiotic Interpretation [facility] Status Aerobic CultureImipenem R F Aerobic Culture Organism: Gram negative rivas : O:CRAB Isolated O:GNR Isolated Organism: 1.1 Antibiotic Interpretation [facility] Status Aerobic CultureMeropenem R F Aerobic Culture Organism: Gram negative rivas : O:CRAB Isolated O:GNR Isolated Organism: 1.1 Antibiotic Interpretation [facility] Status Aerobic CulturePiperacillin R F Aerobic Culture Organism: Gram negative rivas : O:CRAB Isolated O:GNR Isolated Organism: 1.1 Antibiotic Interpretation [facility] Status Aerobic CultureTetracycline R F Aerobic Culture Organism: Gram negative rivas : O:CRAB Isolated O:GNR Isolated Organism: 1.1 Antibiotic Interpretation [facility] Status Aerobic CultureTobramycin S F Aerobic Culture Organism: Gram negative rivas : O:CRAB Isolated O:GNR Isolated Organism: 1.1 Antibiotic Interpretation [facility] Status Aerobic CultureTrimethoprim/Sulfamethoxazole R F Aerobic Culture Organism: Gram negative rivas : O:CRAB Isolated O:GNR Isolated Organism: 1.1 Antibiotic Interpretation [facility] Status Performing Lab:see note LC - [facility] LB SEE REPORT - Body Builder Id information not found for OBX-specific promotions producer legend Fungus (Mycology) Culture (Not yet reviewed by provider) Interpretation: Performing Lab: Notes/Report: [facility] ,Fungus (Mycology) CultureSee Below For Report Fungus (Mycology) Culture Fungus (Mycology) CultureCulture Report: Fungus (Mycology) Culture Fungus (Mycology) CultureThe specimen submitted for fungus culture has been received and Fungus (Mycology) Culture Fungus (Mycology) Cultureculture has been initiated. Fungus (Mycology) Culture Fungus (Mycology) CulturePerformed at: - [facility] Fungus (Mycology) Culture Fungus (Mycology) [id number] [place], [place] [id number] Fungus (Mycology) Culture Fungus (Mycology) CultureLab Director: Lalo Everett PhD, Phone: [phone] Fungus (Mycology) Culture Performing Lab:see note LC - [facility] LB SEE REPORT - Body Builder Id information not found for OBX-specific promotions producer legend Reason For Referral No Information Problems Problem Type SNOMED Code ICD Code Onset Dates Problem Status W/U Status Risk Notes Problem Foot ulcer due to ty pe 2 diabetes mellitus (3770923674498) Type 2 diabetes mellitus with foot ulcer (E11.621) ActiveconfirmedProblemChronic ulcer of foot (584982106)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 layer exposed (L97.422)Activeconfirmed ProblemHypertension (04959437)Hypertension (I10)ActiveconfirmedProblemAcquired hallux rigidus (8650739)Hallux rigidus of left foot (M20.22)Activeconfirmed ProblemUlcer of left foot (disorder) (058459561)Chronic ulcer of left foot limited to breakdown of skin (L97.521)ActiveconfirmedProblemPolyneuropathy due to type 2 diabetes mellitus (175409631)Diabetes mellitus with polyneuropathy (E11.42)ActiveconfirmedProblemFoot ulcer due to type 2 diabetes mellitus (4222003520210)Diabetes mellitus with foot ulcer due to multiple causes (E11.621)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)Activeconfirmed ProblemHallux rigidus (2651342)Hallux rigidus (M20.20)ActiveconfirmedProblem Acute osteomyelitis of ankle and/or foot (998869089)Acute osteomyelitis of right ankle or foot (M86.171)ActiveconfirmedProblemChronic foot ulcer, limited to breakdown of skin, left (L97.521)ActiveconfirmedProblemFoot ulcer, left, with fat layer exposed (L97.522)ActiveconfirmedProblemHigh cholesterol (60505391)High cholesterol (E78.00)ActiveconfirmedProblemChronic ulcer of great toe of left foot, limited to breakdown of skin (L97.521)ActiveconfirmedProblemAcute osteomyelitis of ankle and/or foot (676892319)Acute hematogenous osteomyelitis of left foot (M86.072)ActiveconfirmedProblemNon-pressure chronic ulcer of right heel and midfoot with other specified severity (L97.418)ActiveconfirmedProblem Non-pressure chronic ulcer of other part of left foot with other specified severity (L97.528)ActiveconfirmedProblemUlcer of big toe (disorder) (797445832) Chronic ulcer of great toe of left foot with fat layer exposed (L97.522)Active confirmedProblemAnkle ulcer (306499928)Chronic ulcer of right ankle with fat layer exposed (L97.312)ActiveconfirmedProblemAnkle ulcer (948473865)Ischemic ulcer of right ankle, 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)Activeconfirmed ProblemChronic ulcer of plantar surface of right midfoot with fat layer exposed (L97.412)ActiveconfirmedProblemChronic ulcer of left heel (disorder) (03742972363759443)Chronic ulcer of left heel limited to breakdown of skin (L97.421)ActiveconfirmedProblemIschemic ulcer of left heel with fat layer exposed (L97.422)Activeconfirmed Plan Of Treatment Pending Test Test Name [...] Insured Coverage Start Date Coverage End Date [employer] [address] [address] [place], [place] [phone] [id number] Trev Ontiveros Self - patient is the insured
--- OUTSIDE RECORDS SUMMARY | 2025-05-09 09:59 | XMS_ITS | Encounter Summary ---
Author Organization [facility] Healthcare Address [address] [place] [address] Care Team Providers Care News Camera Operator Name Role Phone Blossom Cody NP Unavailable [phone] Tres Oleary MD Primary Care Provider [phone] Encounter Details DateTypeDepartmentCare Team (Latest Contact Info)Smxytvjyooh21/17/2025Orders Only [facility] Family Medicine [address] [place] [address] Link Ortega NP [address] [facility] [place] [address] Social History Tobacco UseTypesPacks/DayYears UsedDateSmoking Tobacco: NeverSmokeless Tobacco: NeverAlcohol UseStandard Drinks/WeekCommentsYes4 (1 standard drink = 0.6 oz pure alcohol)caffeine: 2-3 cups dailyHumiliation, Afraid, Rape, and Kick questionnaireAnswerDate RecordedWithin the last year, have you been afraid of your partner or ex-partner?Patient uvfwiauc05/14/2023Within the last year, have you been humiliated or emotionally abused in other ways by your partner or ex-partner?Patient evtobpwm49/14/2023Within the last year, have you been kicked, hit, slapped, or otherwise physically hurt by your partner or ex-partner?Patient cssijmvz76/14/2023Within the last year, have you been raped or forced to have any kind of sexual activity by your partner or ex-partner?Patient declined 03/23/2023Social Connection and Isolation PanelAnswerDate RecordedIn a typical week, how many times do you talk on the phone with family, friends, or neighbors?Twice a week03/23/2023How often do you get together with friends or relatives?Twice a week03/23/2023How often do you attend faith or scientology services?More than 4 times per year03/23/2023o you belong to any clubs or organizations such as faith groups, [employer], [employer] or athletic groups, or school groups?Patient /14/2023How often do you attend meetings of the clubs or organizations you belong to?Patient uygdkonv35/14/2023re you , , , , never , or living with a partner?Patient oxrmfqzg62/14/2023UDIT-CAnswerDate RecordedQ1: How often do you have a [...] like food, housing, medical care, and heating?Patient hukemjps56/14/2023Hunger Vital SignAnswerDate RecordedWithin the past 12 months, you worried that your food would run out before you got the money to buymore. Patient /14/2023Within the past 12 months, the food you bought just didn't last and you didn't have money to get more.Patient fmhrxufp87/14/2023 PRAPARE - TransportationAnswerDate RecordedIn the past 12 months, has lack of transportation kept you from medical appointments or from getting medications? Patient ofmprmhh32/14/2023In the past 12 months, has lack of transportation kept you from meetings, work, or from getting things needed for daily living?Patient /14/2023Housing Stability Vital SignAnswerDate RecordedIn the last 12 months, was there a time when you were not able to pay the mortgage or rent on time?Patient fffzblt2103/23/2023Number of Places Lived in the Last YearNot on file 03/23/2023In the last 12 months, was there a time when you did not have a steady place to sleep or slept in ashelter (including now)?Patient smkocvd2303/23/2023Sex and Gender InformationValueDate RecordedSex Assigned at BirthNot on fileLegal KmbAdga8307/22/2022 6:33 PM EDTGender IdentityNot on fileSexual OrientationNot on filedocumented as of this encounter Plan of Treatment DateTypeDepartmentCare Team (Latest Contact Info)Xkxxooahuod73/18/2026 9:30 AM EDTOffice Visit [facility] [address] [place] [address] Maria Fernanda Olguin NP [address] [place] [address] documented as of this encounter Goals GoalPatient Goal TypeAssociated ProblemsRecent ProgressPatient-Stated?Author Help patient manage antidepressant medication Care PlanPatient on antidepressant monitoring Maria Fernanda Velasco NP Baseline PHQ-9 Care PlanBaseline PHQ-9Maria Fernanda Moise NPdocumented as of this encounter Procedures Procedure NamePriorityDate/TimeAssociated DiagnosisCommentsTSH WITH FT4 REFLEX Pmbzyhi3501/31/2025 10:11 AM EDTMICROALBUMIN / CREATININE URINE RATIORoutine 01/31/2025 10:11 AM EDT VITAMIN X69Upmmtkf89/24/2025 10:11 AM EDTLIPID BLBYZIocifec40/24/2025 10:11 AM EDT COMPREHENSIVE METABOLIC SUEAKVvchvdk77/24/2025 10:11 AM EDT documented in this encounter Results * Lipid panel (01/31/2025 10:11 AM EDT)ComponentValueRef RangeTest Method Analysis TimePerformed AtPathologist SignatureCHOLESTEROL, [id number]-H40DJI-T 10QEOGISZDJUWEO304OPPZ/HDL RATIO4.0Specimen (Source)Anatomical Location / LateralityCollection Method / VolumeCollection TimeReceived TimeBloodVenous blood specimen / Unknown Narrative Authorizing ProviderResult TypeResult StatusTondra PawClinicus NPLAB BLOOD ORDERABLES Edited Result - Final * Microalbumin / creatinine urine ratio (01/31/2025 10:11 AM EDT)ComponentValue Ref RangeTest MethodAnalysis TimePerformed AtPathologist Signature MICROALBUMIN, URINE3.1ALB/CREAT ZUWPA01QNVMC MSGIM57Gjsiefdg (Source) Anatomical Location / LateralityCollection Method / VolumeCollection Time Received TimeUrineUrine specimen obtained by clean catch procedure / Unknown Narrative Authorizing ProviderResult TypeResult StatusTondra Ornim Medical NPLAB URINE ORDERABLES Edited Result - Final * Comprehensive metabolic panel (01/31/2025 10:11 AM EDT)ComponentValueRef Range Test MethodAnalysis TimePerformed AtPathologist LicdlljwxFHIBIGW07Xmvcjagd (Source)Anatomical Location / LateralityCollection Method / VolumeCollection TimeReceived TimeBloodVenous blood specimen / Unknown Narrative Authorizing ProviderResult TypeResult StatusTondra Ornim Medical NPLAB BLOOD ORDERABLES Edited Result - Final * Vitamin B12 (01/31/2025 10:11 AM EDT)Specimen (Source)Anatomical Location / LateralityCollection Method / VolumeCollection TimeReceived TimeBloodVenous blood specimen / Unknown Narrative Authorizing ProviderResult TypeResult StatusTondra PawClinicus NPLAB BLOOD ORDERABLES Edited Result - Final * TSH WITH FT4 REFLEX (01/31/2025 10:11 AM EDT) Narrative Authorizing ProviderResult TypeResult StatusTondra PawClinicus NPLAB BLOOD ORDERABLES Edited Result - Final documented in this encounter Visit Diagnoses Not on filedocumented in this encounter Additional Health Concerns Active ProblemsNoted DateDiagnosed DatePatient on antidepressant monitoring plan 01/31/2025aseline PHQ-9001/31/2025documented as of this encounter Care Teams Team MemberRelationshipSpecialtyStart DateEnd Date Tres Oleary MD [address] [place] [address] PCP - GeneralFamily Medicine01/11/25 Blossom Cody NP Nurse PractitionerFamily Medicine01/19/24documented as of this encounter
--- OUTSIDE RECORDS SUMMARY | 2025-05-09 09:59 | XMS_ITS | Clinical Summary ---
Author Organization [employer] [facility] tem Address [id number] [address] [place] [address] Care Team Providers Care Communications Superintendent Name Role Phone Natalie Ryan MD Primary Care Provider [phone] Allergies No known active allergies Medications MedicationSigDispense [...] 1 each 03/30/2018Active lancets (ACCU-CHEK MULTICLIX LANCET) [facility] [place] 100 each 03/30/2018Active atorvastatin (LIPITOR) 40 mg tablet Take 40 mg by mouth daily.Active ONETOUCH VERIO strip U UTD BEFORE MEALS AND HS0106/01/2017Active lisinopril (PRINIVIL,ZESTRIL) 10 mg tablet Take 10 mg by mouth daily.Active BD ULTRA-FINE ABIGAIL PEN NEEDLE 32 gauge x 5/32 needle USE TO ADMINISTER INSULIN QID EDMNXMML9304/29/2018Active ONETOUCH VERIO SYSTEM [facility] See Admin Instructions.Active insulin syringe-needle U-100 0.3 [...] DatePlantar ulcer of right foot04/13/2018Hx of diabetic uhemvefniv90/05/2018Neuropathic foot ulcer04/13/2018 Resolved Problems ProblemNoted DateDiagnosed DateResolved GboaFyaypgtj16 Immunizations No known immunizations Family History Medical HistoryRelationNameCommentsCancerFatherbladderDiabetesMotherRelationName StatusCommentsFatherAliveMotherAlive Social History Tobacco UseTypesPacks/DayYears UsedDateSmoking Tobacco: FormerCigarettes0.248241 - 2003Smokeless Tobacco: Never Tobacco Cessation:Counseling Given: No Alcohol UseStandard Drinks/WeekCommentsYes2 (1 standard drink = 0.6 oz pure alcohol)ChildcareAnswerDate XdtojiiwXjxilbgpkEczuhwa31/12/2019EmploymentAnswer Date NizhvvgnKxojanoumrJqbrzhr66/12/2019Purpose - LifeAnswerDate RecordedPurpose and direction in hjuuHtqcqbo31/11/2021ex and Gender InformationValueDate RecordedSex Assigned at BirthNot on fileLegal SxdGvrt3712/13/2014 12:09 PM EDT Gender IdentityNot on fileSexual OrientationNot on file Last Filed Vital Signs Vital SignReadingTime TakenCommentsBlood Havbtfhu533/7209 9:21 AM EDT Qfzof8392 9:21 AM GUZNsgffaadefe54.6 ??C (99.7 ??F)01/10/2021 6:30 AM EDTRespiratory Tpgm8402 6:30 AM EDTOxygen Tuvgfavynd004%01/10/2021 9:25 AM EDTInhaled Oxygen Concentration--Owcill827.8 kg (350 lb)01/10/2021 6:30 AM QBCTqbasw068.9 cm (6' 0.01 )01/10/2021 6:30 AM EDTBody Mass Index47.46001/10/2021 6:30 AM EDT Plan of Treatment Health MaintenanceDue DateLast DoneCommentsDepression Pxazyxecc08/02/1992Tobacco Dktwztdkd36/02/1992Adult BMI Piyrhfygt65/02/1998DTaP,Tdap and Td Vaccines (1 - Tdap)10/09/1998COVID-19 Vaccine (3 - season)/03/2021, 11/27/2020Influenza Cvtkody20/10/2019, 02/22/2019, 02/07/2018 Goals GoalPatient Goal TypeAssociated ProblemsRecent ProgressPatient-Stated?Author Return home with home care services Evelyne Coned LSW Note: Evaluation of progress towards goal: Return home with home health care services. Medical Devices Not on file Insurance Advance Directives * Full Code (Latest Code Status on File) Date ActivatedDate OzqndjzjnuxGfzqwagw02/18/2018 5:45 AM03/30/2018 7:23 PM Care Teams Team MemberRelationshipSpecialtyStart DateEnd Natalie Ryan MD [address] [place], [place] [id number] PCP - GeneralFamily Pjntghhd22/17/18
--- OUTSIDE RECORDS SUMMARY | 2025-05-09 09:59 | XMS_ITS | Clinical Summary ---
Author Organization [facility] Address [address] [place] [address] Care Team Providers Care Tennis Racket Repairer Name Role Phone Blossom Cody PUBLIC HEALTH OFFICER Unavailable [phone] Tres Oleary MD Primary Care Provider [phone] Allergies No known active allergies Medications MedicationSigDispense QuantityRefillsLast FilledStart DateEnd DateStatus aspirin 81 MG EC tablet Take 1 tablet by mouth in the morning.Active insulin lispro (HumaLOG) 100 UNIT/ML injection Inject [...] (40 mg) by mouth Daily 90 tablet 5Active lisinopril 30 MG tablet Indications:Essential hypertensionTake 1 tablet (30 mg) by mouth Daily 90 tablet 6Active insulin glargine-yfgn (Semglee-yfgn) 100 UNIT/ML pen 5Active insulin glargine (Lantus) 100 UNIT/ML injection Inject 44 Units under the skin in the morning and 44 Units in the evening. 04/24/2025Discontinued(Formulary change) Insulin Lispro 100 UNIT/ML solution Discontinued(Duplicate order) Active Problems ProblemNoted DateDiagnosed DateAmputation of toe, traumatic, left, sequela ([facility])11/03/2023 Overview (11/03/2023): Lt forefoot Essential dwhixjekjirj50/07/2024cquired hallux gixozl9310/02/2022rthritis of left foot10/02/2022iabetic autonomic neuropathy associated with type 2 diabetes sdyvtsuv36/26/2023iabetic neuropathic obrxqothido94/26/2023iabetic polyneuropathy associated with type 2 diabetes qskywxyc57/26/2023yslipidemia 10/02/2022Lipoprotein deficiency rooneqme20/26/2023Morbid ymifmtv6210/02/2022 Poorly controlled diabetes qjfoifzp48/26/7122Qnkdhmxbhmqrrivmsuff97/26/2023 Traumatic amputation of toe of right foot10/02/2022Type 2 diabetes mellitus with neurological vlazycthzhrbs87/26/2023Hyperglycemia due to type 2 diabetes vchqhumw29/26/2023Vitamin B 12 vzdaihzkov14/26/2023 Resolved Problems ProblemNoted DateDiagnosed DateResolved DateUlcerated, foot, left, limited to breakdown of skinNon-pressure chronic ulcer of other part of unspecified foot with unspecified aclmhcgl82/12/2023Osteomyelitis of great toe of right foot/Osteomyelitis of right foot10/02/2022 06/17/2023ressure ulcer of other site, stage ressure ulcer of other site, stage Ulcer of foot due to type 2 diabetes pwwsqweh38History of COVID-190///12/2023Hx of diabetic aeuakztdzt48 Encounters DateTypeDepartmentCare BgacNpapqpctver04/17/2025Orders Only [facility] [address] [facility] [place] [address] Link Ortega NP 04/24/2025 9:30 AM ESTOffice Visit [facility] [address] [facility] [address] [place] [place] [address] Maria Fernanda Olguin NP 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); 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, sequela ([facility]-HCC); Essential hypertension; Morbid obesity ([facility]); Fgnycpqiqeyyjxexuhgs70/16/2025Orders Only [facility] [address] [facility] [place] [address] Link Ortega NP 04/24/2025amboo flowsheet [facility] [address] [facility] [place] [address] Maria Fernanda Olguin NP 04/24/20258946Hnktij63/30/2025Refill [facility] [address] [place] [address] Tres Oleary MD Essential hypertensionfrom Last 3 Months Immunizations ImmunizationAdministration DatesNext DueInfluenza, injectable, MDCK, preservative free, rihdeetbpggz96/06/2020Influenza, injectable, quadrivalent, preservative free03/24/2023,03/28/2021,02/22/2019,02/07/2018Influenza, seasonal, injectable, preservative free03/14/2024TD (adult), 2 Lf tetanus toxoid, preservative free, fcajtcwo75/26/2024Td (adult), 5 Lf tetanus toxoid, preservative free, lnbaronq21/19/2022 Family History Medical HistoryRelationNameCommentsCancerFatherHypertensionFatherDiabetesMother HypertensionMotherMelanomaMotherhistory ofRelationNameStatusCommentsFatherAlive MotherAlive Social History Tobacco UseTypesPacks/DayYears UsedDateSmoking Tobacco: NeverSmokeless Tobacco: Never Tobacco Cessation:Counseling Given: Not Answered Alcohol UseStandard Drinks/WeekCommentsYes4 (1 standard drink = 0.6 oz pure alcohol)caffeine: 2-3 cups dailyHumiliation, Afraid, Rape, and Kick questionnaireAnswerDate RecordedWithin the last year, have you been afraid of your partner or ex-partner?Patient axungxda27/14/2023Within the last year, have you been humiliated or emotionally abused in other ways by your partner or ex-partner?Patient atqtmwuv02/14/2023Within the last year, have you been kicked, hit, slapped, or otherwise physically hurt by your partner or ex-partner?Patient oupkgzgc50/14/2023Within the last year, have you been raped or forced to have any kind of sexual activity by your partner or ex-partner?Patient declined 03/23/2023Social Connection and Isolation PanelAnswerDate RecordedIn a typical week, how many times do you talk on the phone with family, friends, or neighbors?Twice a week03/23/2023How often do you get together with friends or relatives?Twice a week03/23/2023How often do you attend gnosticism or sabianist services?More than 4 times per year03/23/2023o you belong to any clubs or organizations such as gnosticism groups, unions, fraternal or athletic groups, or school groups?Patient grkepmxd09/14/2023How often do you attend meetings of the clubs or organizations you belong to?Patient cnfovuek42/14/2023re you , , , , never , or living with a partner?Patient emonthpy95/14/2023UDIT-CAnswerDate RecordedQ1: How often do you have a [...] like food, housing, medical care, and heating?Patient kmvvnoek14/14/2023Hunger Vital SignAnswerDate RecordedWithin the past 12 months, you worried that your food would run out before you got the money to buymore. Patient hnghpnle78/14/2023Within the past 12 months, the food you bought just didn't last and you didn't have money to get more.Patient kexsnoqr38/14/2023 PRAPARE - TransportationAnswerDate RecordedIn the past 12 months, has lack of transportation kept you from medical appointments or from getting medications? Patient mkyjekix17/14/2023In the past 12 months, has lack of transportation kept you from meetings, work, or from getting things needed for daily living?Patient eltmfmfp41/14/2023Housing Stability Vital SignAnswerDate RecordedIn the last 12 months, was there a time when you were not able to pay the mortgage or rent on time?Patient rwlahgz2103/23/2023Number of Places Lived in the Last YearNot on file 03/23/2023In the last 12 months, was there a time when you did not have a steady place to sleep or [facility] ([facility])?Patient lhuthxg1403/23/2023Sex and Gender InformationValueDate RecordedSex Assigned at BirthNot on fileLegal GrtEgwd8807/22/2022 6:33 PM EDTGender IdentityNot on fileSexual OrientationNot on file Last Filed Vital Signs Vital SignReadingTime TakenCommentsBlood Jhmcasdi474/8204/24/2025 9:29 AM EST Zfysn844804/24/2025 9:29 AM ESTTemperature--Respiratory Rate--Oxygen Fqprnqixms47% 01/31/2025 9:20 AM EDTInhaled Oxygen Concentration--Rafdvb105 kg (386 lb 3.2 oz) 04/24/2025 9:29 AM VHJUmsfbo193.6 cm (5' 11.5 )01/31/2025 9:20 AM EDTBody Mass Index53.11001/31/2025 9:20 AM EDT Plan of Treatment DateTypeDepartmentCare Team (Latest Contact Info)Iwlpudjeqsw96/18/2026 9:30 AM EDTOffice Visit [facility] Medicine [address] [place] [address] Maria Fernanda Olguin NP [address] [place] [address] Health MaintenanceDue DateLast DoneCommentsCT Hnizhudmdqnu23/02/1980Colonoscopy 1979FIT-DNA1979FIT1979FOBT1979 5676Vikkdnosygxal91/02/1980 Diabetes: Hemoglobin A1C6105/26/2024, 03/12/2025, 08/21/2024, Additional history existsDiabetes: Urine Protein Emkwmyeip27, 01/31/2025, 03/24/2023, Additional history existsColorectal Cancer Tjdtkhcds24/26/2026 Postponed from 1979 (Patient Refused)Diabetes: Retinopathy Screening 7008/15/2024, 07/27/2023, 07/25/2021, Additional history existsInfluenza AbnazzgUslvzmppp83/24/2025, 03/14/2024, 03/24/2023, Additional history exists Pneumococcal Vaccine: Pediatrics (0 to 5 Years) and At-Risk Patients (6 to 64 Years)Discontinued Goals GoalPatient Goal TypeAssociated ProblemsRecent ProgressPatient-Stated?Author Help patient manage antidepressant medication Care PlanPatient on antidepressant monitoring Maria Fernanda Velasco NP Baseline PHQ-9 Care PlanBaseline PHQ-9Maria Fernanda Moise NP Procedures Procedure NamePriorityDate/TimeAssociated DiagnosisCommentsHEMOGLOBIN R0IIwcfgbu 03/12/2025 10:30 AM EST MICROALBUMIN / CREATININE URINE VQPNZOxqlzxg86/24/2025 10:11 AM EDT DIABETIC RETINOPATHY SCREENING - OU - BOTH TECOHbkimew57/08/2025 3:07 PM EDTfrom Last 3 Months or Most Recently Relevant to Health Maintenance Results * Hemoglobin A1c (03/12/2025 10:30 AM EST)ComponentValueRef RangeTest Method Analysis TimePerformed AtPathologist SignatureHEMOGLOBIN A1C7.9Specimen (Source)Anatomical Location / LateralityCollection Method / VolumeCollection TimeReceived TimeBloodVenous blood specimen / Unknown Narrative Authorizing ProviderResult TypeResult StatusTondra Mapus NPLAB BLOOD ORDERABLES Edited Result - Final * Microalbumin / creatinine urine ratio (01/31/2025 10:11 AM EDT)ComponentValue Ref RangeTest MethodAnalysis TimePerformed AtPathologist Signature MICROALBUMIN, URINE3.1ALB/CREAT QMHYB68PHPFX QOGYC16Ivjghjbq (Source) Anatomical Location / LateralityCollection Method / VolumeCollection Time Received TimeUrineUrine specimen obtained by clean catch procedure / Unknown Narrative Authorizing ProviderResult TypeResult StatusTondra Mapus NPLAB URINE ORDERABLES Edited Result - Final * (ABNORMAL) Diabetic Retinopathy Screening - OU - Both Eyes (08/15/2024 3:07 PM EDT)Anatomical RegionLateralityModalityHeadOther Narrative Authorizing ProviderResult TypeResult StatusGreg Derodes MDOPHTH PHOTOGRAPHY Final Result from Last 3 Months or Most Recently Relevant to Health Maintenance Additional Health Concerns Active ProblemsNoted DateDiagnosed DatePatient on antidepressant monitoring plan 5Baseline PHQ-9001/31/2025 Insurance Care Teams Team MemberRelationshipSpecialtyStart DateEnd Date Tres Oleary MD [address] [place] [address] PCP - GeneralFamily Medicine01/11/25 Blossom Cody NP Nurse PractitionerNew [facility] Medicine01/19/24
--- OUTSIDE RECORDS SUMMARY | 2025-05-09 10:00 | XMS_ITS | CCD ---
Author Organization [facility] Care Team Providers Care Food Broker Name Role Phone Link Ortega Unavailable NATANAEL [...] WONDERLY, DR NATALIE Lozada Primary Care Unavailable NATNAAEL FELDMAN Attending Unavailable NATANAEL FELDMAN Admitting Unavailable [...] Care Provider MD Damon Claros Attending Provider [phone] MD Natalie Hernandez Primary Care Provider Natalie Hernandez MD Primary Care Provider Blossom Cody NP Unavailable Natalie Hernandez Primary Care Unavailable Taiwo, Natanael Marks Admitting Unavailable Taiwo, Natanael Marks Attending Unavailable [facility] Care Unavailable Damon Claros Admitting Unavailable Damon Claros Attending Unavailable Natalie Hernandez MD [facility] Care Provider Natanael Feldman DPM Attending Provider Natalie Hernandez MD Primary Care Provider Blossom Cody NP Unavailable Link Ortega APRN Attending Provider [phone] Sharif BURGER-CMaria Fernanda Primary Care Provider Tres Oleary MD Primary Care Provider MARIA FERNANDA GRANADOS Attending Unavailable BLOSSOM CODY Attending Unavailable MARIA FERNANDA GRANADOS Attending Unavailable BLOSSOM CODY Attending Unavailable Natalie Hernandez MD Primary Care Provider Maria Fernanda Guzman Primary Care Provider Link Ortega APRN Attending Provider [phone] Medications Current Medications MedicationDrug Class(es)DatesSig (Normalized)Sig (Original)0.25 MG, 0.5 MG Dose 3 ML semaglutide 0.68 MG/ML Pen Injector [Ozempic] (1 source)Start: 55-55-4470siedqm 0.5 mg by subcutaneous injection every week Ozempic (0.25 or 0.5 MG/DOSE) 2 MG/3ML 0.5mg Subcutaneous once weekly for 84 days Dec, Activeaspirin 81 mg chewable tablet (20 sources)Platelet Aggregation Inhibitor, Nonsteroidal Anti-inflammatory Drug Start: 20-22-5381wicl 1 tablet by mouth once dailyAspirin 81 [...] tablet (20 sources)HMG-CoA Reductase InhibitorStart: 02-08-2023 End: 54-45-4276dihc 1 tablet by mouth once dailyAtorvastatin 40 mg tablet Active 40 MG PO Daily October 18, 2023 11:00pm Complies with drug therapydapagliflozin 10 mg oral tablet (20 sources)Sodium-Glucose Cotransporter 2 InhibitorStart: 10-19-2023 End: 62-63-5862epyu 1 tablet by mouth once daily in the morningDapagliflozin Propanediol (Farxiga) 10 mg tablet Active 10 MG PO Every morning 90 0 August 21, 2024 8:32am Type 2 diabetes mellitus with hyperglycemia Type 2 diabetes mellitus with hyperglycemia [facility] (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 Complies with drug [...] in the evening. ActiveInsulin Glargine-Yfgn (11 sources)Start: 53-80-2772bcnkow 44 [IU] by subcutaneous injection twice dailyInsulin Glargine-Yfgn Active 44 UNIT SUBCUT Twice daily 100 October 19, 2023 12:27pmStart: 10-19-2023 End: 91-83-1120iupnuo 44 [IU] by subcutaneous injection twice dailyInsulin Glargine-Yfgn Discontinued 44 UNIT SUBCUT Twice daily October 19, 2023 12:04pm October 19, 2023 12:27pmStart: 60-69-2635zcxvro 44 [IU] by subcutaneous injection twice dailyInsulin Glargine-Yfgn Active 44 UNIT SUBCUT Twice daily October 19, 2023 12:04pmStart: 10-19-2023 End: 87-54-3326bkfgmm 40 [IU] by subcutaneous injection twice dailyInsulin Glargine-Yfgn Discontinued 40 UNIT SUBCUT Twice daily October 19, 2023 11:40am October 19, 2023 12:05pmStart: 07-26-2023 End: 87-66-5563cssdvb 46 [IU] by subcutaneous injection twice dailyInsulin Glargine-Yfgn Discontinued 46 UNIT SUBCUT Twice daily 90 90 July 26, 2023 3:32pm October 19, 2023 11:40amStart: 07-26-2023 End: 23-07-1292whmfej 46 [IU] by subcutaneous injection twice dailyInsulin Glargine-Yfgn Discontinued 46 UNIT SUBCUT Twice daily 90 90 July 26, 2023 9:10am July 26, 2023 3:33pmStart: 07-26-2023 End: 80-04-5120afhqzd 46 [IU] by subcutaneous injection twice dailyInsulin Glargine-Yfgn Discontinued UNIT SUBCUT July 26, 2023 12:00am July 26, 2023 9:15am FreeTextSig: INJECT 46 UNITS SQ bid; Note: Source Status: Increase(titrate up to max 50 units/day); Provider: Shannon Olmsteadulin Glargine-Yfgn (10 sources)Start: 74-75-1900Bibynvc Glargine-Yfgn (Semglee(Insulin Glarg- Yfgn)Pen) 100 unit/mL (3 mL) insulin pen Active 48 UNIT SUBCUT Twice daily 90 March 12, 2025 10:26am Type 2 diabetes mellitus with hyperglycemia Type 2 diabetes mellitus with hyperglycemia intermediate card tender (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 Complies with drug therapyStart: 01-17-2025 End: 24-00-5966Gqrikdi Glargine-Yfgn (Semglee(Insulin Glarg-Yfgn)Pen) 100 unit/mL (3 mL) insulin pen Discontinued 46 UNIT SUBCUT Twice daily 90 January 17, 2025 12:25pm March 12, 2025 10:27am Type 2 diabetes mellitus with hyperglycemia Type 2 diabetes mellitus with hyperglycemia intermediate card tender (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: 11-27-2024 End: 85-99-6873Iqcvxlf Glargine-Yfgn (Semglee(Insulin Glarg-Yfgn)Pen) 100 unit/mL (3 mL) insulin pen Discontinued 46 UNIT SUBCUT Twice daily 90 November 27, 2024 9:41am January 17, 2025 12:25pm Type 2 diabetes mellitus with hyperglycemia Type 2 diabetes mellitus with hyperglycemia intermediate card tender (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: 03-88-9571Tnodgnz Glargine-Yfgn (Semglee(Insulin Glarg- Yfgn)Pen) 100 unit/mL (3 mL) insulin pen Active 46 UNIT SUBCUT Twice daily 90 November 27, 2024 10:41am Complies with drug therapyStart: 08-21-2024 End: 67-62-3140Qlcklpu Glargine-Yfgn (Semglee(Insulin Glarg-Yfgn)Pen) 100 unit/mL (3 mL) insulin pen Discontinued 45 UNIT SUBCUT Twice daily 90 August 21, 2024 8:37am November 27, 2024 9:42am Type 2 diabetes mellitus with hyperglycemia Type 2 diabetes mellitus with hyperglycemia [facility] (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: 08-21-2024 End: 29-06-8541Cwsrezd Glargine-Yfgn (Semglee(Insulin Glarg-Yfgn)Pen) 100 unit/mL (3 mL) insulin pen Discontinued 45 UNIT SUBCUT Twice daily 90 August 21, 2024 9:37am November 27, 2024 10:42amStart: 08-21-2024 End: 79-61-2080Ofejhwk Glargine-Yfgn (Semglee(Insulin Glarg-Yfgn)Pen) 100 unit/mL (3 mL) insulin pen Discontinued 45 UNIT SUBCUT Twice daily 90 0 August 21, 2024 8:31am August 21, 2024 8:38am Type 2 diabetes mellitus with hyperglycemia Type 2 diabetes mellitus with hyperglycemia intermediate card tender (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: 08-21-2024 End: 14-20-9132Jlnbqsy Glargine-Yfgn (Semglee(Insulin Glarg-Yfgn)Pen) 100 unit/mL (3 mL) insulin pen Discontinued 45 UNIT SUBCUT Twice daily 90 August 21, 2024 9:31am August 21, 2024 9:38amStart: 07-24-2024 End: 61-14-2942Uzykacb Glargine-Yfgn (Semglee(Insulin Glarg-Yfgn)Pen) 100 unit/mL (3 mL) insulin pen Discontinued 44 UNIT SUBCUT Twice daily 90 0 July 23, 2024 11:00pm August 21, 2024 8:31am Type 2 diabetes mellitus with hyperglycemia Type 2 diabetes mellitus with hyperglycemia [facility] (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: 07-24-2024 End: 76-85-9749Kulgddr Glargine-Yfgn (Semglee(Insulin Glarg-Yfgn)Pen) 100 unit/mL (3 mL) insulin pen Discontinued 44 UNIT SUBCUT Twice daily 90 July 24, 2024 12:00am August 21, 2024 9:31amInsulin Glargine-Yfgn (Semglee(Insulin Glarg-Yfgn)Pen) 100 unit/mL (3 mL) insulin pen (2 sources)Start: 76-52-4872Ktgziyr Glargine-Yfgn (Semglee(Insulin Glarg- Yfgn)Pen) 100 unit/mL (3 mL) insulin pen Active 45 UNIT SUBCUT Twice daily 90 August 21, 2024 9:31amStart: 07-24-2024 End: 37-48-3765Epwsnog Glargine-Yfgn (Semglee(Insulin Glarg-Yfgn)Pen) 100 unit/mL (3 mL) [...] ActiveInsulin Lispro 100 unit/mL solution (10 sources)Start: 15-57-6027Nqeugfz Lispro 100 unit/mL solution Active 0 SUBCUT .COMPLEX February 28, 2024 10:07am subcutaneously; 1:4 carb ratio ac tid. 1:15 corrective scale ac tid (hs if >200 half dose) as directed; (expect up to 66 units/day)Start: 44-92-0640Irhinyv Lispro 100 unit/mL solution Active 0 SUBCUT .COMPLEX February 28, 2024 9:07am subcutaneously; 1:4 carb ratio ac tid. 1:15 corrective scale ac tid (hs if >200 half dose) as directed; (expect up to 66 units/day)Start: 01-26-2024 End: 50-42-1784Sugfjcu Lispro 100 unit/mL solution Discontinued 0 SUBCUT .COMPLEX January 26, 2024 10:37am February 28, 2024 10:12am subcutaneously; 1:4 carb ratio ac tid. 1:15 corrective scale ac tid (hs if >200 half dose) as directed; (expect up to 60 units/day)Start: 01-26-2024 End: 56-60-6374Umgqgpf Lispro 100 unit/mL solution Discontinued 0 SUBCUT .COMPLEX January 26, 2024 9:37am February 28, 2024 9:12am subcutaneously; 1:4 carb ratio ac tid. 1:15 corrective scale ac tid (hs if & gt;200 half dose) as directed; (expect up to 60 units/day)Start: 12-15-2023 End: 49-73-5854Lgtmewi Lispro 100 unit/mL solution Discontinued 0 SUBCUT .COMPLEX December 15, 2023 2:47pm January 26, 2024 10:37am subcutaneously; 1:4 carb ratio ac tid. 1:15 corrective scale ac tid (hs if >200 half dose) as directed; (expect up to 60 units/day)Start: 12-15-2023 End: 09-96-4826Qyigfqg Lispro 100 unit/mL solution Discontinued 0 SUBCUT .COMPLEX December 15, 2023 1:47pm January 26, 2024 9:37am subcutaneously; 1:4 carb ratio ac tid. 1:15 corrective scale ac tid (hs if >200 half dose) as directed; (expect up to 60 units/day)Start: 10-19-2023 End: 04-22-4020Zrnotkg Lispro 100 unit/mL solution Discontinued 0 SUBCUT .COMPLEX October 19, 2023 12:27pm December 15, 2023 2:48pm subcutaneously; 1:4 carb ratio ac tid. 1:15 corrective scale ac tid (hs if >200 half dose) as directed; (expect up to 60 units/day)Start: 10-19-2023 End: 97-80-3221Oyapvwe Lispro 100 unit/mL solution Discontinued 0 SUBCUT .COMPLEX October 19, 2023 11:27am December 15, 2023 1:48pm subcutaneously; 1:4 carb ratio ac tid. 1:15 corrective scale ac tid (hs if >200 half dose) as directed; (expect up to 60 units/day)Start: 10-19-2023 End: 27-91-0096Umjhhyk Lispro 100 unit/mL solution Discontinued 0 SUBCUT .COMPLEX October 19, 2023 12:00am October 19, 2023 12:28pm subcutaneously; 1:4 carb ratio ac tid. 1:15 corrective scale ac tid (hs if >200 half dose) as directed; (expect up to 60 units/day)Start: 10-19-2023 End: 17-11-4515Nczwiab Lispro 100 unit/mL solution Discontinued 0 SUBCUT .COMPLEX October 18, 2023 11:00pm October 19, 2023 11:28am subcutaneously; 1:4 carb ratio ac tid. 1:15 corrective scale ac tid (hs if >200 half dose) as directed; (expect up to 60 units/day)lisinopril 30 mg oral tablet (20 sources)Angiotensin Converting Enzyme InhibitorStart: 06-16-2023 End: 56-09-7523rltu 1 tablet by mouth once dailyLisinopril 30 mg tablet Active 30 MG PO Daily October 18, 2023 11:00pm Complies with drug therapy End: 46-99-2211vdpf 1 tablet by mouth in the morninglisinopril 20 MG tablet Take 1 tablet by mouth in the morning. 0 06/16/2023 Discontinued (Dose adjustment) metFORMIN hydrochloride 500 mg oral tablet (20 sources)BiguanideStart: 07-22-2023 End: 17-64-7778gpsy 2 tablets by mouth twice dailyMetformin 500 mg tablet Active 1000 MG PO Twice daily 360 0 November 27, 2024 9:42am Type 2 diabetes mellitus with hyperglycemia Type 2 diabetes mellitus with hyperglycemia FreeTextSi tablets Orally Twice a day; Note: Source Status: Taking; Refills: 3; Qty: 360 Tablet; Provider: Shannon Price Complies with drug therapyStart: 07-22-2023 End: 17-65-4135pblb 2 tablets by mouth twice dailyMetformin Active 1000 MG PO Twice daily 360 July 22, 2023 2:45pm FreeTextSi tablets Orally Twice a day; Note: Source Status: Taking; Refills: 3; Qty: 360 Tablet; Provider: Shannon Berry (8 sources)Start: 80-31-7702HtaHydhy Verio - Use with One touch verio meter In Vitro 3 times per day for 90 days E11.65 ActiveOneTouch Verio - USE DIRECTED THREE TIMES DAILY for 90 Active0.25 mg, 0.5 mg dose 1.5 ml semaglutide 1.34 mg/ml pen injector (4 sources)Start: 13-64-8633Vwgdnei (0.25 or 0.5 MG/DOSE) 2 MG/1.5ML as [...] tablet (18 sources)Serotonin Reuptake InhibitorStart: 06-14-2024 End: 80-64-1892gzbo 1 tablet by mouth once daily as neededTrazodone 100 mg tablet Active 100 MG PO Daily as needed August 21, 2024 8:09am Complies with drugtherapyurea 400 mg/ml topical cream (15 sources)Start: 12-01-2023 End: 07-19-6443tpmp (Carmol) 40 % cream APPLY TO THE [...] oral tablet (2 sources)Opioid AgonistStart: 05-17-2023 End: 72-89-2489nmxy 1 tablet by mouth every eight hours as needed for pain oxyCODONE-acetaminophen (Percocet) 5-325 MG tablet TAKE 1 TABLET BY MOUTH EVERY 8 HOURS FOR 7 DAYS NEEDED FOR PAIN 0 05/17/2023 06/16/2023 Discontinued (Therapy completed)ampicillin 2000 mg / sulbactam 1000 mg injection (4 sources)Penicillin-class Antibacterial, beta Lactamase InhibitorStart: 06-14-2024 End: 92-79-3147oeqhbv 3 g by intramuscular injection every six [...] day(s) Not-TakingInsulin Glargine-Yfgn (14 sources)Start: 02-28-2024 End: 33-22-7931Mfotfzt Glargine-Yfgn 100 unit/mL solution Discontinued 44 UNIT SUBCUT Twice daily 100 3 February 28, 2024 8:56am July 24, 2024 3:24pm Type 2 diabetes mellitus with hyperglycemia Type 2 diabetes mellitus with hyperglycemiaStart: 02-28-2024 End: 76-62-0762Ufjmzwh Glargine-Yfgn 100 unit/mL solution Discontinued 44 UNIT SUBCUT Twice daily 100 February 28, 2024 9:56am July 24, 2024 4:24pmStart: 10-19-2023 End: 22-52-4358Nrjqvuj Glargine-Yfgn 100 unit/mL solution Discontinued 44 UNIT SUBCUT Twice daily 100 3 October 11:27am February 28, 2024 8:56am Type 2 diabetes mellitus with hyperglycemia Type 2 diabetes mellitus with hyperglycemiaStart: 10-19-2023 End: 32-19-0730Rhwouap Glargine-Yfgn 100 unit/mL solution Discontinued 44 UNIT SUBCUT Twice daily 100 October 19, 2023 12:27pm February 28, 2024 9:56amStart: 10-19-2023 End: 18-91-9992Mwlonbw Glargine-Yfgn 100 unit/mL solution Discontinued 44 UNIT SUBCUT Twice daily October 19, 2023 11:04am October 19, 2023 11:27am Type 2 diabetes mellitus with hyperglycemia Type 2 diabetes mellituswith hyperglycemia Start: 10-19-2023 End: 42-63-0855Cqmjkqy Glargine-Yfgn 100 unit/mL solution Discontinued 44 UNIT SUBCUT Twice daily October 19, 2023 12:04pm October 19, 2023 12:27pmStart: 10-19-2023 End: 56-70-9129Xqpvxfp Glargine-Yfgn 100 unit/mL solution Discontinued 40 UNIT SUBCUT Twice daily October 19, 2023 10:40am October 19, 2023 11:05am Type 2 diabetes mellitus with hyperglycemia Type 2 diabetes mellituswith hyperglycemia Start: 10-19-2023 End: 15-88-1073Foijeas Glargine-Yfgn 100 unit/mL solution Discontinued 40 UNIT SUBCUT Twice daily October 19, 2023 11:40am October 19, 2023 12:05pmStart: 07-26-2023 End: 22-93-1880Xxgwfjo Glargine-Yfgn 100 unit/mL solution Discontinued 46 UNIT SUBCUT Twice daily 90 90 0 July 26, 2023 2:32pm October 19, 2023 10:40am Type 2 diabetes mellitus with hyperglycemia Type 2 diabetes mellitus with hyperglycemiaStart: 07-26-2023 End: 40-92-9501Pkfojvt Glargine-Yfgn 100 unit/mL solution Discontinued 46 UNIT SUBCUT Twice daily 90 90 July 26, 2023 3:32pm October 19, 2023 11:40amStart: 07-26-2023 End: 06-11-0168Dqfnwln Glargine-Yfgn 100 unit/mL solution Discontinued 46 UNIT SUBCUT Twice daily 90 90 0 July 26, 2023 8:10am July 26, 2023 2:33pm Type 2 diabetes mellitus with hyperglycemia Type 2 diabetes mellitus with hyperglycemiaStart: 07-26-2023 End: 48-96-1508Nsjxilp Glargine-Yfgn 100 unit/mL solution Discontinued 46 UNIT SUBCUT Twice daily 90 90 July 26, 2023 9:10am July 26, 2023 3:33pmStart: 07-26-2023 End: 92-69-0894Oefemss Glargine-Yfgn 100 unit/mL solution Discontinued UNIT SUBCUT July 25, 2023 11:00pm July 26, 2023 8:15am FreeTextSig: INJECT 46 UNITS SQ bid; Note: Source Status: Increase(titrate up to max 50 units/day); Provider: Shannon Maza KStart: 07-26-2023 End: 14-06-7901Yhetdan Glargine-Yfgn 100 unit/mL solution Discontinued UNIT SUBCUT July 26, 2023 12:00am July 26, 2023 9:15am FreeTextSig: INJECT 46 UNITS SQ bid; Note: Source Status: Increase(titrate up to max 50 units/day); Provider: Shannon Maza Kinsulin glargine-yfgn (Semglee-yfgn) 100 UNIT/ML injection (2 sources)Start: 10-21-2023 End: 25-22-2188eswqmav glargine-yfgn (Semglee-yfgn) 100 UNIT/ML injection INJECT 44 UNITS UNDER THE SKIN TWICE DAILY. MAX DAILY DOSE 100 UNITS 10/21/2023 01/19/2024 Discontinued (Duplicate order)Insulin Glargine-Yfgn 100 unit/mL solution (14 sources)Start: 02-28-2024 End: 09-47-3715Hhmqwdk Glargine-Yfgn 100 unit/mL solution Discontinued 44 UNIT SUBCUT Twice daily February 28, 2024 9:56am July 24, 2024 4:24pmStart: 54-34-7354Cibxuit Glargine-Yfgn 100 unit/mL solution Active 44 UNIT SUBCUT Twice daily February 2748:56amStart: 10-19-2023 End: 64-60-9532Xhbjrzh Glargine-Yfgn 100 unit/mL solution Discontinued 44 UNIT SUBCUT Twice daily October 19, 2023 12:27pm February 28, 2024 9:56amStart: 10-19-2023 End: 05-34-7967Zxmmufq Glargine-Yfgn 100 unit/mL solution Discontinued 44 UNIT SUBCUT Twice daily October 19, 2023 11:27am February 28, 2024 8:56amStart: 10-19-2023 End: 67-64-9751Ixooxqe Glargine-Yfgn 100 unit/mL solution Discontinued 44 UNIT SUBCUT Twice daily October 19, 2023 12:04pm October 19, 2023 12:27pmStart: 10-19-2023 End: 66-58-3234Etiqnyb Glargine-Yfgn 100 unit/mL solution Discontinued 44 UNIT SUBCUT Twice daily October 19, 2023 11:04am October 19, 2023 11:27amStart: 10-19-2023 End: 12-03-0180Jrkladz Glargine-Yfgn 100 unit/mL solution Discontinued 40 UNIT SUBCUT Twice daily October 19, 2023 11:40am October 19, 2023 12:05pmStart: 10-19-2023 End: 42-26-0613Eetxqfp Glargine-Yfgn 100 unit/mL solution Discontinued 40 UNIT SUBCUT Twice daily October 19, 2023 10:40am October 19, 2023 11:05amStart: 07-26-2023 End: 77-54-2401Vqvzcpx Glargine-Yfgn 100 unit/mL solution Discontinued 46 UNIT SUBCUT Twice daily 90 90 July 26, 2023 3:32pm October 19, 2023 11:40amStart: 07-26-2023 End: 98-52-9259Bljrpob Glargine-Yfgn 100 unit/mL solution Discontinued 46 UNIT SUBCUT Twice daily 90 90 July 26, 2023 2:32pm October 19, 2023 10:40amStart: 07-26-2023 End: 79-63-4141Idredox Glargine-Yfgn 100 unit/mL solution Discontinued 46 UNIT SUBCUT Twice daily 90 90 July 26, 2023 9:10am July 26, 2023 3:33pmStart: 07-26-2023 End: 77-30-2612Vyozxgx Glargine-Yfgn 100 unit/mL solution Discontinued 46 UNIT SUBCUT Twice daily 90 90 July 26, 2023 8:10am July 26, 2023 2:33pmStart: 07-26-2023 End: 50-98-9211Jtlwspv Glargine-Yfgn 100 unit/mL solution Discontinued UNIT SUBCUT July 26, 2023 12:00am July 26, 2023 9:15am FreeTextSig: INJECT 46 UNITS SQ bid; Note: Source Status: Increase(titrate up to max 50 units/day); Provider: Shannon Maza KStart: 07-26-2023 End: 37-12-8412Fdnglaz Glargine-Yfgn 100 unit/mL solution Discontinued UNIT SUBCUT July 25, 2023 11:00pm July 26, 2023 8:15am FreeTextSig: INJECT 46 UNITS SQ bid; Note: Source Status: Increase(titrate up to max 50 units/day); Provider: Shannon Maza Kinsulin lispro 100 unt/ml injectable solution (20 sources)Insulin AnalogStart: 00-03-0802Ylounws Lispro Active 0 SUBCUT .COMPLEX January 26, 2024 10:37am subcutaneously; 1:4 carb ratio ac tid. 1:15 corrective scale ac tid (hs if >200 half dose) as directed; (expect up to 60 units/day)Start: 12-15-2023 End: 74-40-4634Dehbsqo Lispro Discontinued 0 SUBCUT .COMPLEX 60 December 15, 2023 2:47pm January 26, 2024 10:37am subcutaneously; 1:4 carb ratio ac tid. 1:15 corrective scale ac tid (hs if >200 half dose) as directed; (expect up to 60 units/day)Start: 10-19-2023 End: 86-68-0400Amvbrhd Lispro Discontinued 0 SUBCUT .COMPLEX 60 October 19, 2023 12:27pm December 15, 2023 2:48pm subcutaneously; 1:4 carb ratio ac tid. 1:15 corrective scale ac tid (hs if >200 half dose) as directed; (expect up to 60 units/day)Start: 10-19-2023 End: 03-84-8687Fhpoxmg Lispro 100 unit/mL solution Discontinued 0 SUBCUT .COMPLEX 60 January 26, 2024 9:37amOctober 2023 9:12am Type 2 diabetes mellitus with hyperglycemia Type 2 diabetes mellitus withhyperglycemia intermediate card tender (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 subcutaneously; 1:4 carb ratio ac tid. 1:15 corrective scale ac tid (hs if >200 half dose) as directed; (expect up to 60 units/day)Start: 10-19-2023 End: 30-51-3226Awehddb Lispro Discontinued 0 SUBCUT .COMPLEX October 19, 2023 12:00am October 19, 2023 12:28pm subcutaneously; 1:4 carb ratio ac tid. 1:15 corrective scale ac tid (hs if >200 half dose) as directed; (expect up to 60 units/day)Start: 04-18-5848Pcnevub Lispro Active 0 SUBCUT .COMPLEX October 19, [...] oral tablet (4 sources)Oxazolidinone AntibacterialStart: 06-14-2024 End: 59-12-3069qinm 1 tablet by mouth twice dailyLinezolid 600 mg tablet Discontinued 600 MG PO Twice daily June 14, 2024 12:00am August 21, 2024 8:09am3 ml liraglutide 6 mg/ml pen injector (20 sources)GLP-1 Receptor AgonistStart: 10-19-2023 End: 47-42-9304Temgagvlohs (Victoza 3-Connor) 0.6 mg/0.1 mL (18 mg/3 mL) pen injector Discontinued 0 SUBCUT .COMPLEX 27 0 August 21, 2024 8:35am October 25, 2024 7:44am Type 2 diabetes mellitus with hyperglycemia 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 with hyperglycemia [facility] (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 inject 1.8mg once daily Start: 81-15-1427pvmvpz 1.8 mg by subcutaneous injection once dailyVictoza 18 MG/3ML 1.8mg Subcutaneous daily for 84 days May, Activepen needle, diabetic (Merline 2nd Gen Pen Needle) (2 sources)Start: 11-27-2024 End: 71-66-8852xnj needle, diabetic (Merline 2nd Gen Pen Needle) Discontinued .Route November 26, 2024 11:00pm November 27, 2024 9:42amStart: 87-07-3918kez needle, diabetic (Merline 2nd Gen Pen Needle) Active .Route November 27, 2024 12:00am Problems Active Problems Problem ClassificationProblemDateDocumented DateEpisodic/ChronicAcquired foot deformities (20 sources)Hallux rigidus, unspecified foot; Translations: [Hallux rigidus, left foot]Onset: 968430-37-2313BiakukrGxnjbulf foot deformities (1 source)Flat foot [pes planus] (acquired), left foot; Translations: [FLAT FOOT PES PLANUS ACQ LT FOOT]Onset: 78-96-5630KoavyeihAywnsllbhopjgb/social admission (15 sources)Dietary counseling and surveillance; Translations: [Patient encounter status]Onset: 01-06-2022 Resolved: 42-93-0346HylofcglMqqssubdt infection; unspecified site (4 sources)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; Translations: [Infection with drug-resistant microorganisms, unspecified, with multiple drug resistance]91-13-7561YnwdfsvdXgsrfmi ulcer of skin (20 sources)Non-pressure chronic ulcer of other part of unspecified foot with unspecified severity; Translations: [Non-pressure chronic ulcer of other part of left foot with fat layer exposed]Onset: 05-25-2022 Resolved: 629680-37-3206QijojvpKixmxoal mellitus with complications (20 sources)Hyperglycemia due to type 2 diabetes mellitus; Translations: [Type 2 diabetes mellitus with hyperglycemia]Onset: 01-06-2022 Resolved: 60-80-6855DevvniyTrpwhujr mellitus without complication (5 sources)Diabetes mellitus; Translations: [Type 2 diabetes mellitus without complications]57-76-4162TbqdhvhIkkcqjfhu of lipid metabolism (20 sources)Hyperlipidemia; Translations: [Hyperlipidemia, unspecified]Onset: 01-06-2022 Resolved: 18-71-5699SzhcyznIfqzgzlji hypertension (20 sources)Hypertensive disorder; Translations: [Essential (primary) hypertension]Onset: 01-06-2022 Resolved: 28-27-1522HchkgpjGjcxvbumpikha mental health disorders (4 sources)Depressed mood; Translations: [Other symptoms and signs involving emotional state]98-70-5533PeiyboigPknhgschylj deficiencies (9 sources)Vitamin D deficiency; Translations: [Vitamin D deficiency, unspecified]ChronicNutritional deficiencies (20 sources)Deficiency of other specified B group vitamins; Translations: [Cobalamin deficiency]Onset: 01-06-2022 Resolved: 88-62-4298TjihvunzTjty wounds of extremities (20 sources)Traumatic amputation of toe; 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, initial encounter]Onset: 10-02-2022 84-72-4284IxmrnynXnxb wounds of extremities (20 sources)Traumatic amputation of toe; Translations: [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, sequela]Onset: 484095-24-3911Dmvdcem Open wounds of extremities (19 sources)Unspecified open wound, unspecified foot, initial encounter; Translations: [Injury of left foot]EpisodicOsteoarthritis (20 sources)Arthritis of left foot; Translations: [Primary osteoarthritis, left ankle and foot]Onset: 707814-57-4828RozzaarJhiid aftercare (15 sources)Long-term current use of insulin; Translations: [intermediate card tender (current) use of insulin]16-19-2722DtlvopiaOgygd aftercare (4 sources)[facility] (current) use of insulinOnset: 01-06-2022 Resolved: 34-57-2062RlvkaproJiavn aftercare (3 sources)Drug therapy finding; Translations: [intermediate card tender (current) use of antibiotics]44-86-4590CknprfoeMqmsh aftercare (1 source)[facility] (current) use of antibiotics; Translations: [Long-term (current) use of antibiotics]58-33-2889PkkszwcvAhsmb bone disease and musculoskeletal deformities (5 sources)Acquired absence of right foot; Translations: [ACQUIRED ABSENCE OF RIGHT FOOT]Onset: 03-29-0392ThivrzaOmobm bone disease and musculoskeletal deformities (1 source)Acquired absence of other toe(s), unspecified sideEpisodicOther bone disease and musculoskeletal deformities (2 sources)Absence of toe; Translations: [Acquired absence of other toe(s), unspecified side]56-07-8667PzatqvgdUephg connective tissue disease (4 sources)Pain in left foot; Translations: [PAIN IN LEFT FOOT]Onset: 10-06-2022 EpisodicOther nutritional; endocrine; and metabolic disorders (9 sources)Metabolic syndrome X; Translations: [Metabolic syndrome]ChronicOther nutritional; endocrine; and metabolic disorders (20 sources)Body mass index 40+ - severely obese; Translations: [Body mass index (BMI) 50.0-59.9, adult]63-51-1321LxdigncJvaus nutritional; endocrine; and metabolic disorders (1 source)Body mass index (BMI) 45.0-49.9, adultOnset: 01-06-2022 Resolved: 58-92-5317OactdwhJnyxh nutritional; endocrine; and metabolic disorders (6 sources)Body mass index (BMI) 50.0-59.9, adult; Translations: [Body Mass Index 50.0-59.9, adult]ChronicOther nutritional; endocrine; and metabolic disorders (1 source)Morbid (severe) obesity due to excess calories; Translations: [MORBID SEVERE OBES D/T EXCESS JIMMY]Onset: 67-53-8174PdfysrxIvpik nutritional; endocrine; and metabolic disorders (20 sources)Lipoprotein deficiency disorder; Translations: [Lipoprotein deficiency]Onset: 291796-10-1403AqgphtwOefgg nutritional; endocrine; and metabolic disorders (20 sources)Morbid obesity; Translations: [Morbid (severe) obesity due to excess calories]Onset: 539908-87-4608OfaiflhPbnoi skin disorders (5 sources)Nail dystrophy; Translations: [NAIL DYSTROPHY]Onset: 11-20-2021 EpisodicOther skin disorders (1 source)Changes in skin textureEpisodicOther upper respiratory disease (2 sources)Nasal congestion; Translations: [Nasal congestion]12-76-1185Yjjqdbum Residual codes; unclassified (4 sources)Insomnia; Translations: [Insomnia, unspecified]36-36-2169Zzqvhbjv Unclassified (3 sources)Patient on antidepressant monitoring planOnset: Unclassified (3 sources)Baseline PHQ-9Onset: Past or Other Problems Problem ClassificationProblemDateDocumented DateEpisodic/ChronicComplications of surgical procedures or medical care (5 sources)Disruption of wound, unspecified, initial encounter; Translations: [DISRUPTION WOUND UNS INITIAL ENC]Onset: 87-85-2981PyavsqmzRxohrdudw arthritis and osteomyelitis (except that caused by tuberculosis or sexually transmitted di sease) (20 sources)Osteomyelitis of right foot; Translations: [Osteomyelitis, unspecified]Onset: 10-02-2022 Resolved: 269475-36-1766LjaotmpOxjef infections; including parasitic (20 sources)Personal history of other infectious and parasitic diseases; Translations: [History of COVID-19]Onset: 05-13-2020 Resolved: 351865-27-8529WerwjiioVkooa non-traumatic joint disorders (1 source)Pain in left ankle and joints of left foot; Translations: [PAIN IN LEFT ANKLE]Onset: 02-66-4662UwwihuaiBlfav nutritional; endocrine; and metabolic disorders (20 sources)H/O: Disorder; Translations: [Personal history of other endocrine, nutritional and metabolic disease]Onset: 04-13-2018 Resolved: 640449-97-5817VvzuipxkBmvcb skin disorders (5 sources)Corns and callosities; Translations: [CORNS AND CALLOSITIES]Onset: 46-50-0481TkvvzejxMkttmeorsyb injury; contusion (4 sources)Blister (nonthermal), right foot, initial encounter; Translations: [BLISTER NONTHERMAL RT FOOT INITIAL]Onset: 27-81-5389Ydrmpoqg Results Test NameValueInterpretationReference UqcvuTaeedsytIaL0v HPLC (Bld) [Mass fraction]Ordered By: Link Ortega on 72-89-2449HdI5l (Bld) [Mass fraction]7.9 % [facility] HospitalNo Panel InformationOrdered By: Link Ortega on 92-84-3849Oydurja Hkdygik436KveyehnjcMercy Health Allen HospitalALBUMIN, RANDOM URINE W/CREATININEon 88-95-7703EZKDIDC, URINE3.1 mg/dLNormalSee Note:[facility] DiagnosticsComment on above:Result Comment: Reference Range: Reference Range Not establishedPerformed By: #### 06659, 6517, 927, 31874, 7600 #### [facility] [address] , [address] [place] [address] Composition Teacher: Mauro Handley MD #### [id number] #### [facility] [place] [address] Composition Teacher: Emeli Kohli FlatiALBUMIN/CREATININE RATIO, RANDOM URINE61 mg/g [...] be within a diagnostic category.Performed By: #### 52438, 6517, 927, 46795, 7600 #### [facility] [address] [place] [address], [address] [place], [place] [address] Composition Teacher: Mauro Handley MD #### [id number] #### [facility] [address] [place] [address] Composition Teacher: Emeli Kohli FlatiCreatinine (U) [Mass/Vol]51 mg/kXYhxbld23-216 [facility] DiagnosticsComment on above:Performed By: #### 67834, 6517, 927, 75782, 7600 #### [facility] [address] [place] [address], [address] [place] [address] Composition Teacher: Mauro Handley MD #### [id number] #### [facility] [address] [place] [address] Composition Teacher: Emeli StockiCOMPREHENSIVE METABOLIC PANELon 02-01-2025 Albumin [Mass/Vol]4.4 g/dLNormal3.6-5.1Quest DiagnosticsComment on above: Performed By: #### 08456, 6517, 927, 70974, 7600 #### [facility] [address], [address] [place] [address] Composition Teacher: Mauro Handley MD #### [id number] #### [facility] [address] [place] [address] Composition Teacher: Emeli StockiAlbumin/Globulin [Mass ratio]1.6 {ratio}Normal 1.0-2.5Quest DiagnosticsComment on above:Performed By: #### 02520, 6517, 927, 94411, 7600 #### [facility] [address], [address] [place], [place] [address] Composition Teacher: Mauro Handley MD #### [id number] #### [facility]-[address] [address] Composition Teacher: Emeli StockiALP [Catalytic activity/Vol]113 U/LNormal 36-130Quest DiagnosticsComment on above:Performed By: #### 06675, 6517, 927, 36238, 7600 #### [facility] [address], [address] [place] [address] Composition Teacher: Mauro Handley MD #### 69027 #### [facility]-[address] [address] Composition Teacher: Emeli Kohli FlatiALT [Catalytic activity/Vol]26 U/LNormal9-46 [facility] DiagnosticsComment on above:Performed By: #### 06299, 6517, 927, 44761, 7600 #### [facility] [address], [address] [place] [address] Composition Teacher: Mauro Handley MD #### [id number] #### [facility] [address] [place] [address] Composition Teacher: Emeli Kohli FlatiAST [Catalytic activity/Vol]21 U/CSjqyns75-00 [facility] DiagnosticsComment on above:Performed By: #### 30583, 6517, 927, 29555, 7600 #### [facility] [address], [address] [place] [address] Composition Teacher: Mauro Handley MD #### 64356 #### [facility] [address] [place] [address] Composition Teacher: Emeli Kohli FlatiBilirubin [Mass/Vol]0.5 mg/dLNormal0.2-1.2 Quest DiagnosticsComment on above:Performed By: #### 38289, 6517, 927, 36360, 7600 #### [facility] [address], [address] [place] [address] Composition Teacher: Mauro Handley MD #### 56168 #### [facility] [address] Composition Teacher: Emeli Kohli FlatiBUN/CREATININE RATIOSEE NOTE:Normal6-22Quest DiagnosticsComment on above:Result Comment: Not Reported: BUN and Creatinine are within reference range.Performed By: #### 05183, 6517, 927, 83577, 7600 #### [facility] [address], [address] [place], [place] [address] Composition Teacher: Mauro Handley MD #### 03893 #### [facility] [address] [place], [place] [phone] Composition Teacher: Emeli Kohli FlatiCalcium [Mass/Vol]9.2 mg/dLNormal8.6-10.3Quest DiagnosticsComment on above:Performed By: #### 89768, 6517, 927, 21386, 7600 #### [facility] [address], [address] [place] [address] Composition Teacher: Mauro Handley MD #### 02835 #### [facility] [address] [place] [address] Composition Teacher: Emeli Kohli FlatiChloride [Moles/Vol]103 mmol/RCbrzzs27-896 [facility] DiagnosticsComment on above:Performed By: #### 54243, 6517, 927, 56587, 7600 #### [facility] [address], [address] [place] [address] Composition Teacher: Mauro Handley MD #### 95759 #### [place] [address] Composition Teacher: Emeli StockiCO2 [Moles/Vol]26 mmol/HDpdywt28-46Rvodl DiagnosticsComment on above:Performed By: #### 61193, 6517, 927, 89076, 7600 #### [facility] [address], [address] [place], [place] [address] Composition Teacher: Mauro Handley MD #### 14452 #### [facility] [address] Composition Teacher: Emeli StockiCreatinine [Mass/Vol]0.96 mg/dLNormal0.60-1.29 [facility] DiagnosticsComment on above:Performed By: #### 43912, 6517, 927, 10858, 7600 #### [facility] [address], [address] [place] [address] Composition Teacher: Mauro Handley MD #### 32921 #### [facility] [address] Composition Teacher: Emeli StockiGFR/1.73 sq M.predicted among non-blacks MDRD (S/P/Bld) [Vol rate/Area]99 mL/min/{1.73_m2}Normal> OR = 60[facility] Comment on above:Performed By: #### 37342, 6517, 927, 32915, 7600 #### [facility] [address], [address] [place] [address] Composition Teacher: Mauro Handley MD #### 67480 #### [facility] [address] Composition Teacher: Emeli Kohli FlatiGlobulin (S) [Mass/Vol]2.8 g/dLNormal1.9-3.7 Quest DiagnosticsComment on above:Performed By: #### 18649, 6517, 927, 02541, 7600 #### [facility] [address], [address] [place] [address] Composition Teacher: Mauro Handley MD #### 54387 #### [facility] [address] [place], [place] [address] Composition Teacher: Emeli Kohli FlatiGlucose [Mass/Vol]89 mg/gXEmrgmh23-33Glset DiagnosticsComment on above:Result Comment: Fasting reference intervalPerformed By: #### 84011, 6517, 927, 20960, 5640 #### [facility] [address], [address] [place] [address] Composition Teacher: Mauro Handley MD #### 53705 #### [place] [address] Composition Teacher: Emeli Kohli FlatiPotassium [Moles/Vol]4.6 mmol/LNormal3.5-5.3 Quest DiagnosticsComment on above:Performed By: #### 77476, 6517, 927, 58098, 1090 #### [facility] [address], [address] [place] [address] Composition Teacher: Mauro Handley MD #### 25397 #### [facility] [phone] Composition Teacher: Emeli Kohli FlatiProtein [Mass/Vol]7.2 g/dLNormal6.1-8.1Quest DiagnosticsComment on above:Performed By: #### 40832, 6517, 927, 34202, 4130 #### [facility] [address], [address] [place] [address] Composition Teacher: Mauro Handley MD #### 00071 #### [facility] [address] [place] [address] Composition Teacher: Emeli StockiSodium [Moles/Vol]137 mmol/IAfbekx238-328Psouu DiagnosticsComment on above:Performed By: #### 44112, 6517, 927, 37038, 7600 #### [facility] [address], [address] [place], [place] [address] Composition Teacher: Mauro Handley MD #### 15352 #### [facility] [address] [place] [address] Composition Teacher: Emeli StockiUrea nitrogen [Mass/Vol]20 mg/dLNormal- Quest DiagnosticsComment on above:Performed By: #### 08768, 6517, 927, 56912, 7600 #### [facility] [address], [address] [place], [place] [address] Composition Teacher: Mauro Handley MD #### 66703 #### [facility] [address] [place] [address] Composition Teacher: Emeli Parra ACCOUNT TRACKINGon 77-32-9691WVWTHWMU MINFORD ACCOUNTNormalQuest DiagnosticsComment on above:Result Comment: We were unable to identify an account number for the order submitted. If you do not have a [facility] account number or if your account information needs to be updated please call [phone] ([phone]) for assistance. To prevent delays in testing and processing of your orders please provide the following information for this order and with every additional order submitted: [facility] account number and account name Client address Client phone and fax number NPI number of ordering physician along with the physician name.Performed By: #### 51430, 6517, 927, 60884, 7600 #### [facility] [address], [address] [place] [address] Composition Teacher: Mauro Handley MD #### 90477 #### [facility] [address] [place] [address] Composition Teacher: Emeli SOLOMONMansfield Hospital 89-75-8294Vizhutzpycy [Mass/Vol]96 mg/dLNormal<200Quest DiagnosticsComment on above:Order Comment: FASTING:YES FASTING: YESPerformed By: #### 03151, 6517, 927, 40548, 7600 #### [facility] [address], [address] [place] [address] Composition Teacher: Mauro Handley MD #### 32097 #### [facility] [address] [place] [address] Composition Teacher: Emeli StockiCholesterol in HDL [Mass/Vol]24 mg/dLLow> OR = 40Quest DiagnosticsComment on above:Order Comment: FASTING:YES FASTING: YESPerformed By: #### 28463, 6517, 927, 00483, 7600 #### [facility] [address], [address] [place] [address] Composition Teacher: Mauro Handley MD #### [id number] #### [facility] [address] [place] [address] Composition Teacher: Emeli StockiCholesterol in LDL [Mass/Vol]49 mg/dLNormal [facility] [...] LDL-C. Nick LOUIS et al. SOFIE. 2013;310(19): 1078-9433 (http://education.[employer]/faq/ZCH708)Performed By: #### 32600, 6517, 927, 61697, 7600 #### [facility] [address], [address] [place], [place] [address] Composition Teacher: Mauro Handley MD #### 17532 #### [facility] [address] [place] [address] Composition Teacher: Emeli StockiCholesterol.total/Cholesterol in HDL [Mass ratio]4.0 {ratio}Normal<5.0Quest DiagnosticsComment on above:Order Comment: FASTING:YES FASTING: YESPerformed By: #### 95067, 6517, 927, 16927, 7600 #### [facility] [place] [address] [facility], [address] [place], [place] [address] Composition Teacher: Mauro Handley MD #### 72321 #### [facility] [address] [place] [address] Composition Teacher: Emeli Lang HDL HMPFZFSPDNR33 mg/dL (calc)Normal<130 [facility] DiagnosticsComment on above:Order Comment: FASTING:YES FASTING: YESResult Comment: For patients with diabetes plus 1 major ASCVD risk factor, treating to a non-HDL-C goal of <100 mg/dL (LDL-C of <70 mg/dL) is considered a therapeutic option.Performed By: #### 88677, 6517, 927, 25811, 7600 #### [facility] [address], [address] [place] [address] Composition Teacher: Mauro Handley MD #### 93282 #### [facility] [address] [place] [address] Composition Teacher: Emeli StockiTriglyceride [Mass/Vol]147 mg/dLNormal<150 [facility] DiagnosticsComment on above:Order Comment: FASTING:YES FASTING: YESPerformed By: #### 58050, 6517, 927, 99262, 7600 #### [facility] [address], [address] [place], [place] [address] Composition Teacher: Mauro Handley MD #### 81843 #### [facility] [address] [place] [address] Composition Teacher: Emeli HamiltonH W/REFLEX TO FT4on 58-28-0287QJX W/REFLEX TO FT41.71 mIU/LNormal0.40-4.50Quest DiagnosticsComment on above:Result Comment: Your request to have a duplicate copy faxed has been acknowledged. Queued to: [id number] By: #### 29246, 6517, 927, 92190, 7600 #### [facility] [address] [facility], [address] Composition Teacher: Mauro Handley MD #### 09696 #### [facility] [place] [address] Composition Teacher: Emeli StockiVITAMIN B12on 54-97-8951Guxzdsise (Vitamin B12) [Mass/Vol]450 pg/iITpigtg033-8951Tdbeu DiagnosticsComment on above: Performed By: #### 45295, 6517, 927, 56284, 7600 #### [facility] [address], [address] [place] [address] Composition Teacher: Mauro Handley MD #### 37562 #### [facility] [address] [place] [address] Composition Teacher: Emeli StockiGlomerular filtration rate (GFR) estimation in non- AmericanOrdered By: Link Ortega on 83-67-1777MJG/1.73 sq M.predicted among non-blacks MDRD (S/P/Bld) [Vol rate/Area]99 mL/min/{1.73_m2} [facility] HospitalLaboratory - Chemistry and Chemistry - challengeOrdered By: Link Ortega on 73-66-3060Wutqhycht (Vitamin B12) [Mass/Vol]450 pg/mLMercy Health Allen HospitalCreatinine (U) [Mass/Vol]51 mg/dLMercy Health Allen HospitalALP [Catalytic activity/Vol]113 U/L [facility] HospitalALT [Catalytic activity/Vol]26 U/LFMcKitrick HospitalAST [Catalytic activity/Vol]21 U/[facility] CincinnatiBilirubin [Mass/Vol]0.5 mg/dLMercy Health Allen Hospital Calcium [Mass/Vol]9.2 mg/dLMercy Health Allen HospitalChloride [Moles/Vol] 103 mmol/LFMcKitrick HospitalCO2 [Moles/Vol]26 mmol/[facility] CincinnatiCreatinine [Mass/Vol]0.96 mg/dLMercy Health Allen HospitalGlucose [Mass/Vol]89 mg/dLMercy Health Allen HospitalPotassium [Moles/Vol]4.6 mmol/LFMcKitrick HospitalProtein [Mass/Vol]7.2 g/dL [facility] Limaodium [Moles/Vol]137 mmol/LFMcKitrick HospitalUrea nitrogen [Mass/Vol]20 mg/dLMercy Health Allen Hospital Cholesterol [Mass/Vol]96 mg/dLMercy Health Allen HospitalCholesterol in HDL [Mass/Vol]24 mg/dLMercy Health Allen HospitalCholesterol in LDL [Mass/Vol]49 mg/dLMercy Health Allen HospitalCholesterol.total/Cholesterol in HDL [Mass ratio]4.0 {ratio}[facility] HospitalTriglyceride [Mass/Vol]147 mg/dLMercy Health Allen HospitalNo Panel InformationOrdered By: Link Ortega on 97-82-9121Qgmymjl Stimulating Hormone 3rd Gen1.71[facility] HospitalUrine Microalbumin mg/dl3.1FMcKitrick HospitalUrine Microalbumin/Creatinine Elmas14EdjdbdilgMercy Health Allen HospitalVLDL Xoalycdsglv93 mg/dLMercy Health Allen HospitalUrine albumin/creatinine ratioOrdered By: Link Ortega on 53-56-7760Nawpqfj/Creatinine (U) [Ratio]4.4 g/dLMercy Health Allen HospitalNo Panel Informationon 11-22-1547BUAD FAST CULTURE Acid Fast Culture Specimen has been received and testing has been initiated. [facility] HealthcareACID FAST CULTURENegativeNOSt. Louis Children's HospitalACID FAST CULTURENo acid fast bacilli isolated after 6 weeks.[facility] HospitalACID FAST CULTUREPerformed at: - [facility] HealthcareACID FAST [id number] [place], [place] [id number] HealthcareACID FAST CULTURELab Director: Lalo Everett PhD, Phone: [phone] HealthcareACID FAST SMEAR Acid Fast Smear Negative [facility] HealthcareAFB SPECIMEN PROCESSING AFB Specimen Processing Liberty HospitalAFB SPECIMEN PROCESSINGTissue GrindingMethodist McKinney Hospital right foot fascia for culture CLINISYHumboldt General Hospital (HulmboldtCLINISYNCNo Panel Informationon 87-18-7533KCEREX (MYCOLOGY) CULTURE Fungus (Mycology) Culture WILL FOLLOW [facility] ServicesNGUS (MYCOLOGY) CULTURENo yeast or mold isolated after 4 weeks. [facility] HospitalFUNGUS (MYCOLOGY) CULTUREPerformed at: [facility] HospitalFUNGUS (MYCOLOGY) [id number] [place], [place] [id number] HospitalFUNGUS (MYCOLOGY) CULTURELab Director: Lalo Everett PhD, Phone: [phone] HealthcareFUNGUS STAIN Fungus Stain Liberty HospitalFUNGUS STAINKOH/Calcofluor preparation: no fungus observed.[facility] right foot fascia for culture [facility] right foot ulcer CLINISYNCANAEROBIC CULT, EXTENDED INCUBon 01-29-3058LTKKHPYUA CULT, EXTENDED INCUB Anaerobic Cult, Extended Incub [facility] HealthcareANAEROBIC CULT, EXTENDED INCUBSpecimen has been received and testing has been initiated.[facility] HealthcareANAEROBIC CULT, EXTENDED INCUB Organism: Prevotella disiens :[facility] HealthcareANAEROBIC CULT, EXTENDED INCUB *ABNORMAL*[facility] HealthcareANAEROBIC CULT, EXTENDED INCUBScant growthNOMS HealthcareANAEROBIC CULT, EXTENDED INCUBStudies at LabKansas City Va [facility] have confirmed theNOMS HealthcareANAEROBIC [...] [facility] HealthcareANAEROBIC CULT, EXTENDED INCUB O:PREDIS Isolated [facility] HealthcareGRAM STAIN RESULTon 47-80-9365MOSA STAIN RESULT Gram Stain Result NOM HealthcareGRAM STAIN RESULTNo white blood cells seen.[facility] HealthcareGRAM STAIN RESULTNONM HealthcareGRAM STAIN RESULTNo organisms seenNONM HealthcareGRAM STAIN RESULTPerformed at: [facility] HealthcareGRAM STAIN RESULT [address] [place], [place] [id number] HealthcareGRAM STAIN RESULTLab Director: Lalo Everett PhD, Phone: [phone] HospitalNo Panel Informationon 86-00-5888KLERJIRJAMQXF HealthcareTISSUE CULTUREon 05-11-2024 TISSUE CULTURE Tissue Culture WILL FOLLOW Liberty HospitalTISE CULTURELiberty HospitalTISSUE CULTURESpecimen has been received and testing has been initiated.[facility] HealthcareAEROBIC CULTUREon 03-61-5282KLYRANP CULTURE Aerobic Culture WILL FOLLOW Liberty HospitalAEROBIC CULTURELiberty HospitalAEROBIC CULTUREMixed skin floraNONM HealthcareANAEROBIC CULTUREon 35-14-8530KGHMPCVAE CULTURE Anaerobic Culture [facility] HealthcareANAEROBIC CULTUREHolding for possible anaerobes.[facility] ANAEROBIC CULTUREOrganism: Prevotella disiens :[facility] HealthcareANAEROBIC CULTURE *ABNORMAL*[facility] HealthcareANAEROBIC CULTURELight growthNONM HealthcareANAEROBIC CULTUREStudies at [employer] [facility] have confirmed theNOMS HealthcareANAEROBIC CULTUREobservations of others who have demonstrated thatNONM HealthcareANAEROBIC CULTUREPrevotella, Porphyromonas and Bacteroides speciesNOSt. Louis Children's Hospital ANAEROBIC CULTUREother than Bacteroides fragilis group are routinelyNONM HealthcareANAEROBIC CULTUREsusceptible to Cefoxitin, Chloramphenicol, andNONM HealthcareANAEROBIC CULTUREMetronidazole and are usually resistant to Penicillin.[facility] HealthcareANAEROBIC CULTUREPrevotella disiensNOSt. [facility] Hospital ANAEROBIC CULTURE O:PREDIS Isolated [facility] HealthcareGRAM STAIN RESULTon 89-61-9881SNWS STAIN RESULT Gram Stain Result [facility] HealthcareGRAM STAIN RESULTNo white blood cells seen.[facility] HealthcareGRAM STAIN RESULTNONM HealthcareGRAM STAIN RESULTPositiveNONM HealthcareGRAM STAIN RESULTPerformed at: [facility] HealthcareGRAM STAIN [id number] [place], [place] [id number] HealthcareGRAM STAIN RESULTLab Director: Lalo Everett PhD, Phone: [phone] HealthcareNo Panel Informationon 70-09-3595LZYAWVYLHUBLC HealthcareLon 04-26-2024L Specimen: [id number] Received: 04/26/24 Status: CALEB Gabriel Num: [id number] Spec Type: Surgical Subm Dr: Natanael Feldman DPM, Tissues: A Skin-Other than Cyst, tag, debridement or plastic repair (RT FOOT ULCER) Procedures: Yenny SCOTT/Mary Robles Age/ Patient Sex Location Account Attending Physician Trve Ontiveros 43/M [facility] [id number] Natanael Feldman DPM, SPEC NUM: [id number] RECD: 04/26/24 STATUS: CALEB GABRIEL NUM: [id number] MARTHA: 04/26/[address]: Natanael Feldman DPM, MS ENTERED: 04/26/[address] [facility] [address]: Farzana Rene SPEC TYPE: Surgical DEPT: DERRICK PLUNKETT ENTERED BY: [id number] RECV BY: [id number] ORDERED: HE, Gross/Micro L4 ORDERED: HE, Gross/Micro [...] reveal purple-brown to green, softened cut surfaces. Generator Repairer sections are submitted in a single cassette. (1, ss, VT15-6915 A) CPT Codes 16649 Specimen: [id number] Received: 04/26/24 Status: SOUT Req Num: [id number] Spec Type: Surgical Subm Dr: Natanael Feldman DPM, MS Tissues: A Skin-Other than Cyst, tag, debridement or plastic repair (RT FOOT ULCER) Procedures: HE, Gross/Micro L4 Patient: Trev Ontiveros [id number] (Continued) Signed (signature on file) Melanie Roca MD 04/27/[address] [place] [address] Physician GroupXR FOOT RT MIN 3Von 04-26-2024 [place] [address] XRay Report Signed Patient: TREV ONTIVEROS MR#: [id number] : 1980 Acct:[id number] Age/Sex: 43 / M ADM Date: 04/25/24 Loc: Attending Dr: Meena Stinson Ordering Physician: Meena Stinson Date of Service: 04/25/24 Procedure(s): XR foot RT min 3V Accession Number(s): [id number] cc: Meena Stinson; NATALIE HERNANDEZ [place] [id number] Patient Name: TREV ONTIVEROS MRN: [id number] date: 1980 Sex: M Assigned Patient Location: Current Patient Location: [place] Accession/Order Number: [id number] Exam Date: 04/25/2024 11:58 Report Date: 04/26/2024 [...] M.D. Signed By: 04/26/24905 DD/ 2 TD/TT: Strawhat Sizer:ESTRADAHRadiology, Radiologist, - 04/26/2024 [place] [address] XRay Report Signed Patient: TREV ONTIVEROS MR#: [id number] : 1980 Acct:[id number] Age/Sex: 43 / M ADM Date: 04/25/24 Loc: Attending Dr: Meena Stinson Ordering Physician: Meena Stinson Date of Service: 04/25/24 Procedure(s): XR foot RT min 3V Accession Number(s): [id number] cc: Meena Stinson; NATALIE HERNANDEZ [place] [address] Patient Name: TREV ONTIVEROS MRN: [id number] date: 1980 Sex: M Assigned Patient Location: Current Patient Location: [place] Accession/Order Number: [id number] Exam Date: 04/25/2024 11:58 Report Date: 04/26/2024 [...] M.D. Signed By: 04/26/24905 DD/ 2 TD/TT: Strawhat Sizer: CARMENZA HealthcareRadiology Study observation (narrative)[facility] HealthcareXR FOOT RT MIN 3VOrdered By: Radiologist Radiology on 82-77-3921OBVW Victiv Work Phone: XR FOOT RT MIN 3Von 65-94[place], [place] [address] XRay Report Signed Patient: TREV ONTIVEROS MR#: [id number] : 1980 Acct:[id number] Age/Sex: 43 / M ADM Date: 11/02/23 Loc: Attending Dr: Alex Johnson D.P.M. Ordering Physician: Alex Johnson D.P.M. Date of Service: 11/02/23 Procedure(s): XR foot RT min 3V Accession Number(s): [id number] cc: Alex Johnson D.P.M.; NATALIE HERNANDEZ [place] [address] Patient Name: TREV ONTIVEROS MRN: [id number] date: 1980 Sex: M Assigned Patient Location: Current Patient Location: Accession/Order Number: [id number] Exam Date: 11/02/2023 11:13 Report Date: 11/02/2023 [...] Signed By: 11/02/23 1312 DD/ 1310 TD/TT: Strawhat Sizer:TBHRadiology, Radiologist, MD - 11/02/2023 [place] [address] XRay Report Signed Patient: TREV ONTIVEROS MR#: [id number] : 1980 Acct:[id number] Age/Sex: 43 / M ADM Date: 11/02/23 Loc: Attending Dr: Alex Johnson D.P.M. Ordering Physician: Alex Johnson D.P.M. Date of Service: 11/02/23 Procedure(s): XR foot RT min 3V Accession Number(s): [id number] cc: Alex Johnson D.P.M.; NATALIE HERNANDEZ [place] [address] Patient Name: TREV ONTIVEROS MRN: [id number] date: 1980 Sex: M Assigned Patient Location: Current Patient Location: Accession/Order Number: [id number] Exam Date: 11/02/2023 11:13 Report Date: 11/02/2023 [...] Signed By: 11/02/23 131 DD/ 09 TD/TT: Strawhat Sizer: CARMENZA HealthcareRadiology Study observation (narrative)CARMENZA HealthcareXR FOOT RT MIN 3VOrdered By: Radiologist Radiology on 45-31-8970DZTC Healthcare Work Phone: a1c HEMOGLOBINon 36-13-6058AqH8i (Bld) [Mass fraction] 8.2 %[employer] Other Glucose - FINGER STICKon 56-77-8685Awlgldt [Mass/Vol] 170 mg/dLNort [employer] Other HbA1c (Bld) [Mass fraction]on 46-64-3758E8S HEMOGLOBIN [employer] Other XR FOOT LT MIN 3Von 61-03-[place]19[place], [place] [address] XRay Report Signed Patient: TREV ONTIVEROS MR#: [id number] : 1980 Acct:[id number] Age/Sex: 42 / M ADM Date: 04/28/23 Loc: Attending Dr: Natanael Feldman D.P.M. Ordering Physician: Natanael Feldman D.P.M. Date of Service: 04/28/23 Procedure(s): XR foot LT min 3V Accession Number(s): [id number] cc: Natanael Feldman D.P.M.; NATALIE HERNANDEZ [place] [address] Patient Name: TREV ONTIVEROS MRN: [id number] date: 1980 Sex: M Assigned Patient Location: Current Patient Location: Accession/Order Number: [id number] Exam Date: 04/28/2023 10:10 Report Date: 04/28/2023 14:26 At the request of: NATANAEL FELDMAN Procedure: XR foot LT min 3V PROCEDURE: XR foot LT min 3V DATE: 04/28/2023 9:10 AM INDUSTRIAL ENGINEER COMPARISONS: 02/19/2023 CLINICAL INDICATION: LEFT FOOT BLISTER [...] Signed By: 04/28/23 1429 DD/ 25 TD/TT: Strawhat Sizer:ESTRADAHRadiology, Radiologist, - 07/14/2023 [place] [address] XRay Report Signed Patient: TREV ONTIVEROS MR#: [id number] : 1980 Acct:[id number] Age/Sex: 42 / M ADM Date: 04/28/23 Loc: Attending Dr: Natanael Feldman D.P.M. Ordering Physician: Natanael Feldman D.P.M. Date of Service: 04/28/23 Procedure(s): XR foot LT min 3V Accession Number(s): [id number] cc: Natanael Feldman D.P.M.; NATALIE HERNANDEZ [place] [address] Patient Name: TREV ONTIVEROS MRN: [id number] date: 1980 Sex: M Assigned Patient Location: Current Patient Location: Accession/Order Number: [id number] Exam Date: 04/28/2023 10:10 Report Date: 04/28/2023 14:26 At the request of: NATANAEL FELDMAN Procedure: XR foot LT min 3V PROCEDURE: XR foot LT min 3V DATE: 04/28/2023 9:10 AM INDUSTRIAL ENGINEER COMPARISONS: 02/19/2023 CLINICAL INDICATION: LEFT FOOT BLISTER [...] Signed By: 04/28/23 1429 DD/ 25 TD/TT: Strawhat Sizer: CARMENZA HealthcareRadiology Study observation (narrative)CARM[facility] HealthcareXR FOOT LT MIN 3VOrdered By: Radiologist Radiology on 76-67-9756EWWP Healthcare Work Phone: a1c HEMOGLOBINon 53-96-1544YeA4n (Bld) [Mass fraction] 8.9 %[employer] Other Glucose - FINGER STICKon 33-98-0601Lbtrehn [Mass/Vol] 201 mg/dLNort [employer] Other HbA1c (Bld) [Mass fraction]on 32-08-6378W0T HEMOGLOBIN [employer] Other PROF CHEM 8 (BAS METB)on 66-13-2758Hcyor gap [Moles/Vol]14.3 mmol/LNormalThe [facility] Hospital Of ColumbusComment on above:Performed By: #### BMP #### [facility] [address] [place] [address] [address] Lauri ToddCalcium [Mass/Vol]9.4 mg/dLNormal8.5-10.1The [facility] Comment on above:Performed By: #### BMP #### [facility] [address] [place] [address] [address] Lauri ToddChloride [Moles/Vol]101 mmol/OUyohbq49-554Fkr [facility] Comment on above:Performed By: #### BMP #### [facility] [address] [place] [address] [address] Lauri ToddCO2 [Moles/Vol]26.2 mmol/TSxlgiu13.0-32.0[facility] Comment on above:Performed By: #### BMP #### [facility] [address] [place] [address] [address] Lauri ToddCreatinine [Mass/Vol]0.90 mg/dLNormal0.70-1.30The [facility] Of ColumbusComment on above:Performed By: #### BMP #### [facility] [address] [place] [address] [address] Lauri DumontGFR-AF BAHAMIAN>60Normal>=60The [facility] Of ColumbusComment on above:Performed By: #### BMP #### [facility] [address] [place] [address] [address] Lauri DumontGFR-NON AF BAHAMIAN>60Normal>=60The [facility] Of ColumbusComment on above:Performed By: #### BMP #### [facility] [address] [place] [address] [address] Lauri ToddGlucose [Mass/Vol]146 mg/dLCritically ixjf23-901Hlc [facility] ColumbusComment on above:Performed By: #### BMP #### [facility] [address] [place] [address] [address] Lauri ToddPotassium [Moles/Vol]4.5 mmol/LNormal3.5-5.1[facility] Comment on above:Performed By: #### BMP #### [facility] [address] [place] [address] [address] Lauri ToddSodium [Moles/Vol]137 mmol/EDjfiyr623-254Gdm [facility] Comment on above:Performed By: #### BMP #### [facility] [address] [place] [address] [address] Lauri ToddUrea nitrogen [Mass/Vol]16.0 mg/dLNormal7.0-18.0The [facility] Of ColumbusComment on above:Performed By: #### BMP #### [facility] [address] [place] [address] [address] Lauri Delong nitrogen/Creatinine [Mass ratio]17.8 mg/mgNormalThe [facility] Hospital Of ColumbusComment on above:Performed By: #### BMP #### [facility] [address] [place] [address] [address] Lauri ToddA1C HEMOGLOBINon 88-22-4178OkA8q (Bld) [Mass fraction]8.2 %[employer] Other Glucose - FINGER STICKon 69-83-1428Ibdezum [Mass/Vol] 180 mg/dLNort [employer] Other HbA1c (Bld) [Mass fraction]on 62-40-1772V6R HEMOGLOBIN [employer] Other XR FOOT LT MIN 3 VIEWSon 17-96-9683TO FOOT LT MIN 3 VIEWSEXAM: XR ANKLE [...] Electronically authenticated by: RAFAEL WHITAKER Date: 2022-05-25 11:52[facility] LimaA1C HEMOGLOBINon 29-73-2839ZcJ3z (Bld) [Mass fraction]7 %[employer] Other Glucose - FINGER STICKon 15-46-4707Rugvunh [Mass/Vol] 148 mg/dLNort [employer] Other HbA1c (Bld) [Mass fraction]on 11-08-1348Y4U HEMOGLOBIN [employer] Other Basic Metabolic Panelon 91-98-6210Thefb gap [Moles/Vol]20 mmol/SIniuqq29-17Vofsklrf [facility] SpecialistComment on above: Result Comment: Effective 05/15/2019 reference range changed.Performed By: #### BMP #### [facility] [address] [place], [place] [id number] [Mass/Vol]10.0 mg/dLNormal8.6-10.2[facility] SpecialistComment on above:Performed By: #### BMP #### [facility] [address] [place], [place] [id number] [Moles/Vol]100 mmol/IQyvfkw33-396Zkvdalds [facility] SpecialistComment on above:Performed By: #### BMP #### [facility] [address] [place], [place] [id number] [Moles/Vol]22 mmol/YGllgau07-19Kzoggiur [facility] SpecialistComment on above:Performed By: #### BMP #### [facility] [address] [place], [place] [id number] [Mass/Vol]0.8 mg/dLNormal0.7-1.4Nortbanner ironwood medical centern [facility] SpecialistComment on above:Performed By: #### BMP #### [facility] [address] [place], [place] [id number] mL/min/1.00h9Bklgkc>60Nortbanner [facility] medical centern [facility] SpecialistComment on above:Performed By: #### BMP #### [facility] [address] [place], [place] [id number] mL/min/1.01a3Lryhlz>60Nortbanner [facility] medical centern [facility] SpecialistComment on above:Performed By: #### BMP #### [facility] [address] [place], [place] [id number] [Mass/Vol]140 mg/pVNawu63-98Whgdagag [facility] SpecialistComment on above:Result Comment: For FASTING Glucose --- ADA reference ranges: Normal 65-99 mg/dl Prediabetes 100-125 Diabetes >/= 126Performed By: #### BMP #### [facility] [address] [place], [place] [id number] [Moles/Vol]4.3 mmol/LNormal3.5-5.5Nortbanner iron[facility] medical centern [facility] SpecialistComment on above:Performed By: #### BMP #### [facility] [address] [place], [place] [id number] [Moles/Vol]137 mmol/PVqwxkn730-862Htqjhqyo [facility] SpecialistComment on above:Performed By: #### BMP #### [facility] [address] [place], [place] [id number] nitrogen [Mass/Vol]17 mg/dLNormal7-25NortMercer [facility] SpecialistComment on above:Performed By: #### BMP #### [facility] [address] [place], [place] [id number] Vital Signs Date TimeVital SignValuePerforming MorzlcpjkSuncxdna21-21-3429 10:05-0500 Diastolic blood xeiyvpzt47 mm[Hg]Maria Fernanda Granados INVESTMENT BANKING MANAGER-C Work Phone: [phone] [place], [place] 7254611-03-2025 10:05-0500 Systolic blood wooeeiud150 mm[Hg]Maria Fernanda Granados INVESTMENT BANKING MANAGER-C Work Phone: [phone])[address] [place], [place] 725[address]11-03-2025 10:00-0500 Body yozzqg193.88 cmSsandra Granados INVESTMENT BANKING MANAGER-C Work Phone: [phone])[address] [place], [place] 7254611-03-2025 10:00-0500 Body mass index (BMI) [Ratio]51.8 kg/z8Aicaeishjuan Granados INVESTMENT BANKING MANAGER-C Work Phone: [phone])[address] [place], [place] [address]254611-03-2025 10:00-0500 Body zcizpq945.3 kgSajuan Granados INVESTMENT BANKING MANAGER-C Work Phone: [phone])[address] [place], [place] 725[address]11-03-2025 10:00-0500 Heart rate86 /Han Granados INVESTMENT BANKING MANAGER-C Work Phone: [phone])[address] [place], [place] [address]25[address]11-03-2025 10:00-0500 Respiratory rate18 /Han Granados INVESTMENT BANKING MANAGER-C Work Phone: [phone])[address] [place], [place] [address]11-03-2025 10:00-0500 SaO2% (BldA) [Mass fraction]95 %Maria Fernanda Granados INVESTMENT BANKING MANAGER-C Work Phone: [phone])[address] [place], [place] 7254609-24-2025 09:20-0400 Body .6 cmSsandra Granados INVESTMENT BANKING MANAGER Work Phone: [phone])[address] [place], [place] 9734309-24-2025 09:20-0400Body mass index (BMI) [Ratio]52.48 kg/z7LhhvrziaMaria Fernanda Granados INVESTMENT BANKING MANAGER Work Phone: [phone])[address] [place], [place] 9734309-24-2025 09:20-0400Body .09 kgMaria Fernanda Granados INVESTMENT BANKING MANAGER Work Phone: [phone] [place], [place] 97[address]309-24-2025 09:20-0400Diastolic blood eerormhr78 mm[Hg]Maria Fernanda Mezaman INVESTMENT BANKING MANAGER Work Phone: 1(394)[address]09-24-2025 09:20-0400Heart rate82 /min Maria Fernanda Sharif INVESTMENT BANKING MANAGER Work Phone: 1(640)[address] [place], [place] 9734309-24-2025 09:20-4070BrJ9% (BldA) [Mass fraction]98 %Maria Fernanda Sharif INVESTMENT BANKING MANAGER Work Phone: 1(667)[address] [place], [place] 9734309-24-2025 09:20-0400Systolic blood ezhpfcmx580 mm[Hg]Maria Fernanda Sharif INVESTMENT BANKING MANAGER Work Phone: 1(568)[address] [place], [place] 9734307-21-2025 10:07-0400Body wnadzx175.88 cmSabiliomya Sharif INVESTMENT BANKING MANAGER-C Work Phone: 1(277)[address] [place], [place] 7254607-21-2025 10:07-0400 Body mass index (BMI) [Ratio]51.5 kg/c2Jltxkkgmjuan Granados INVESTMENT BANKING MANAGER-C Work Phone: 1(451)[address] [place], [place] 7254607-21-2025 10:07-0400 Body mlgkly592.5 kgMaria Fernanda Sharif INVESTMENT BANKING MANAGER-C Work Phone: 1(948)[address] [place], [place] 7254607-21-2025 10:07-0400 Diastolic blood gtvhyxpa75 mm[Hg]Maria Fernandaarlene Granados INVESTMENT BANKING MANAGER-C Work Phone: 1(099)[address] [place], [place] 7254607-21-2025 10:07-0400 Heart rate81 /Han Granados INVESTMENT BANKING MANAGER-C Work Phone: 1(453)[address] [place], [place] 7254607-21-2025 10:07-0400 Respiratory rate18 /Han Granados INVESTMENT BANKING MANAGER-C Work Phone: 1(576)[address] [place], [place] 7254607-21-2025 10:07-0400 SaO2% (BldA) [Mass fraction]96 %Maria Fernandaarlene Granados INVESTMENT BANKING MANAGER-C Work Phone: 1(448)[address] [place], [place] 7254607-21-2025 10:07-0400 Systolic blood pyyovljc748 mm[Hg]Maria Fernanda Granados INVESTMENT BANKING MANAGER-C Work Phone: [facility]06-12-2025 09:51-0400 Body mass index (BMI) [Ratio]51.08 kg/m8LgfqxijfMaria Fernanda Granados INVESTMENT BANKING MANAGER Work Phone: [phone] HospitalPwowaeuvlv97-21-3678 09:51-0400Body uazfar868.47 kgSajuan Granados INVESTMENT BANKING MANAGER Work Phone: [phone])[address]06-12-2025 09:51-0400Diastolic blood qrlmcjix82 mm[Hg]Maria Fernanda Granados INVESTMENT BANKING MANAGER Work Phone: 1(114)[address]06-12-2025 09:51-0400Heart rate76 /min Maria Fernanda Granados INVESTMENT BANKING MANAGER Work Phone: [phone]07[facility] HospitalCiowsghket50-87-0800 09:51-0400Systolic blood qafeuanf632 mm[Hg]Maria Fernanda Granados INVESTMENT BANKING MANAGER Work Phone: [phone]61[facility] HospitalRspgbddfcn99-78-4830 09:08-0400Diastolic blood wgqzzabn33 mm[Hg][facility]04-14-2025 09:08-0400Systolic blood dwmhoojf451 mm[Hg][facility]04-14-2025 09:07-0400 Body .88 cmMer[facility] Health [facility]04-14-2025 09:07-0400Body mass index (BMI) [Ratio]50.5 kg/o2OgohsvxpiMercy Health Allen Hospital04-14-2025 09:07-0400Body ammprv433 kgMercy Health [facility] Hospital04-14-2025 09:07-0400Heart rate87 /[facility]04-14-2025 09:07-0400Respiratory rate18 /[facility]04-14-2025 09:07-9646JcD6% (BldA) [Mass fraction]97 %[facility] 07-19-2024 09:57-0400Diastolic blood foeukzia12 mm[Hg]Blossom Cody INVESTMENT BANKING MANAGER Work Phone: [phone] HospitalDlxkbcnsuu85-86-2495 09:57-0400Systolic blood cqoqtxrj904 mm[Hg]Blossom Cody INVESTMENT BANKING MANAGER Work Phone: [facility] HospitalWpnvgappsh98-79-0368 09:22-0400Body mass index (BMI) [Ratio]50.03 kg/w7KxgpyydyxBlossom Cody INVESTMENT BANKING MANAGER Work Phone: [facility] HospitalHjpbskmrbj76-74-4930 09:22-0400Body .02 kgShiracarolamary Glo INVESTMENT BANKING MANAGER Work Phone: [facility] HospitalHmorrytsyc48-39-7708 09:22-0400Heart rate80 /min Blossom Cody INVESTMENT BANKING MANAGER Work Phone: [facility] HospitalGcirooofrd58-19-3318 14:55-0500Body ycyobg840.88 cmNatalie Hernandez MD Work Phone: [phone])[address]02-05-2025 14:55-0500 Body mass index (BMI) [Ratio]48.8 kg/m2Natalie Hernandez MD Work Phone: 1(316)[address] [place], [place] 2905802-05-2025 14:55-0500 Body yvuxdmtrffk40.1 [degF]Natalie Hernandez MD Work Phone: [phone])[address] [place], [place] 2905802-05-2025 14:55-0500 Body uywylq385.29 kgNatalie Hernandez MD Work Phone: [phone])[address] [place], [place] 2905802-05-2025 14:55-0500 Diastolic blood naxndyxs75 mm[Hg]Natalie Hernandez MD Work Phone: 1(217)[address]02-05-2025 14:55-0500 Heart okle216 /minNatalie Hernandez MD Work Phone: 1(089)[address]02-05-2025 14:55-0500 Systolic blood yytgbona385 mm[Hg]Natalie Hernandez MD Work Phone: 1(398)[address]12-11-2024 09:47-0500 Body mass index (BMI) [Ratio]52.21 kg/j7IzhpmyzltBlossom Cody INVESTMENT BANKING MANAGER Work Phone: [facility] HospitalTaetdzkoyr62-75-0789 09:47-0500Body aurnqi580.19 kgBlossom Lozoyael INVESTMENT BANKING MANAGER Work Phone: [facility] HospitalJtvvsgmiez50-71-6429 09:47-0500Diastolic blood mhemkwfh60 mm[Hg]Blossom Glo INVESTMENT BANKING MANAGER Work Phone: [phone] HospitalTtyhbwsdwp92-77-4015 09:47-0500Heart rate84 /min Blossom Glo INVESTMENT BANKING MANAGER Work Phone: [phone] HospitalQmpufhrpxr59-04-9255 09:47-0500Systolic blood ymywahma442 mm[Hg]Blossom Cody INVESTMENT BANKING MANAGER Work Phone: [phone]77[facility] HospitalBwyeqrptir90-94-4259 09:59-0400Body .88 cmMer[facility]09-18-2024 09:59-0400Body mass index (BMI) [Ratio]51.2 kg/l8JshoykehnMercy Health Allen Hospital09-18-2024 09:59-0400Body crjufn204.54 kgMercy Health [facility] Hospital09-18-2024 09:59-0400Diastolic blood vwfvcbki99 mm[Hg][facility]09-18-2024 09:59-0400 Heart rate81 /[facility]09-18-2024 09:59-0400 Respiratory rate18 /[facility]09-18-2024 09:59-0400 SaO2% (BldA) [Mass fraction]94 %[facility]09-18-2024 09:59-0400Systolic blood tkdyodqc501 mm[Hg][facility] 01-19-2024 11:00-0400Body mass index (BMI) [Ratio]51.82 kg/d2Vpvmvizpx Glo INVESTMENT BANKING MANAGER Work Phone: [phone] HospitalEniimkbhct16-92-3539 11:00-0400Body wsitdx222.91 kgShiradidier Cody INVESTMENT BANKING MANAGER Work Phone: [phone] HospitalLycyyjhntc71-60-8079 11:00-0400Diastolic blood aalruojj02 mm[Hg]Blossom Glo INVESTMENT BANKING MANAGER Work Phone: 1([phone])531-38[facility] HospitalOvmyuftwfj50-24-3222 11:00-0400Heart rate84 /min Blossom Cody INVESTMENT BANKING MANAGER Work Phone: [phone] HospitalSxcrufrsrw23-71-5597 11:00-0400Systolic blood qmlueeyl236 mm[Hg]Blossom Cody INVESTMENT BANKING MANAGER Work Phone: 1([phone])821-44[facility] HospitalKvjqbwkjlf56-19-6850 11:31-0400Body ttcjla647.88 cmMer[facility] Health [facility] Hospital06-11-2024 11:31-0400Body mass index (BMI) [Ratio]51.7 kg/x1LhawuaxtgMercy Health Allen Hospital06-11-2024 11:31-0400Body dammau622.87 kgMercy Health [facility] Hospital06-11-2024 11:31-0400Diastolic blood ismbgije93 mm[Hg][facility]06-11-2024 11:31-0400 Heart rate74 /[facility]06-11-2024 11:31-0400 Respiratory rate18 /[facility]06-11-2024 11:31-0400 SaO2% (BldA) [Mass fraction]97 %[facility]06-11-2024 11:31-0400Systolic blood rgbzbykk691 mm[Hg][facility] 06-16-2023 11:33-0500Diastolic blood wivipxfl58 mm[Hg]Blossom Cody INVESTMENT BANKING MANAGER Work Phone: 1([phone])20552[facility] HospitalIxblyemzcu39-84-4641 11:33-0500Systolic blood icztukqj243 mm[Hg]Blossom Cody INVESTMENT BANKING MANAGER Work Phone: [phone] HospitalOozmsvnpqz74-61-5560 11:02-0500Body mass index (BMI) [Ratio]52.12 kg/n9MaoqdkljnBlossom Cody INVESTMENT BANKING MANAGER Work Phone: [phone] HospitalDllucnzebn03-97-8169 11:02-0500Body uayalu837.91 kgBlossom Cody INVESTMENT BANKING MANAGER Work Phone: [phone] HospitalNnjmytpavh09-68-0372 11:02-0500Heart rate92 /min Blossom Cody INVESTMENT BANKING MANAGER Work Phone: [phone] HospitalHlbavnsbgm44-60-3493 08:45-0500Body heightTondra Mapus Other [facility] [employer] Other 01-31-2024 08:45-0500Body .88 cmMD Natalie Hernandez [employer] Phone: [facility]01-31-2024 08:45-0500 Body mass index (BMI) [Ratio]51.33 kg/o5Ebchti Mapus Other [facility] [employer] Other 01-31-2024 08:45-0500Body ioezks564.69 kgTondra Mapus Other [facility] [employer] Other 01-31-2024 08:45-0500Body .68 kgMD Natalie Hernandez [employer] Phone: [facility]01-31-2024 08:45-0500 Diastolic blood nwozpmlp60 mm[Hg]Tondra Mapus Other [facility]01-31-2024 08:45-0500 Respiratory rate18 /minTondra Mapus Other [facility] [employer] Other 01-31-2024 08:45-3766IjG3% (BldA) [Mass fraction]94 % Tondra Mapus Other [facility] [employer] Other 01-31-2024 08:45-0500Systolic blood dqguvnoq813 mm[Hg] Tondra Mapus Other [facility]08-28-2023 08:45-0400 Body heightTondra Mapus Other [facility] [employer] Other 08-28-2023 08:45-0400Body mass index (BMI) [Ratio] 51.37 kg/x4Jougyy Mapus Other [employer] Other 08-28-2023 08:45-0400Body evgisb123.82 kgTondra Mapus Other [employer] Other 08-28-2023 08:45-0400Diastolic blood mm[Hg] Tondra Mapus Other [employer] Other 08-28-2023 08:45-0400Respiratory rate18 /minTondra Mapus Other [employer] Other 08-28-2023 08:45-0796GfK8% (BldA) [Mass fraction]98 % Tondra Mapus Other [employer] Other 08-28-2023 08:45-0400Systolic blood ouzpzqax957 mm[Hg] Tondra Mapus Other [employer] Other 02-16-2023 09:45-0500Body heightTondra Mapus Other [facility] Other 02-16-2023 09:45-0500Body mass index (BMI) [Ratio] 51.14 kg/b9Irjzdm Mapus Other [facility] Other 02-16-2023 09:45-0500Body ywlssi975.05 kgTondra Mapus Other [employer] Other 02-16-2023 09:45-0500Diastolic blood oshuodog16 mm[Hg] Tondra Mapus Other [employer] Other 02-16-2023 09:45-0500Respiratory rate18 /minTondra Mapus Other [employer] Other 02-16-2023 09:45-7318CjR0% (BldA) [Mass fraction]95 % Tondra Mapus Other [employer] Other 02-16-2023 09:45-0500Systolic blood uorzwwvc832 mm[Hg] Tondra Mapus Other [employer] Other 08-30-2022 09:45-0400Body heightTondra Mapus Other [employer] Other 08-30-2022 09:45-0400Body mass index (BMI) [Ratio] 48.28 kg/x9Ukxzzh Mapus Other [employer] Other 08-30-2022 09:45-0400Body dgzjru356.48 kgTondra Mapus Other [employer] Other 08-30-2022 09:45-0400Diastolic blood mm[Hg] Tondra Mapus Other [employer] Other 08-30-2022 09:45-0400Respiratory rate20 /minTondra Mapus Other [employer] Other 08-30-2022 09:45-0085NpQ5% (BldA) [Mass fraction]95 % Tondra Mapus Other [facility] [employer] Other 08-30-2022 09:45-0400Systolic blood wkkwftor067 mm[Hg] Link Ortega [facility] Other Encounters Encounter DateEncounter TypeCare ProviderFacilityStart: 03-12-2025 End: 74-04-7610hayfklytcrZthvcnby Hoffman INVESTMENT BANKING MANAGER-C Work Phone: [phone]-PZTXMedlr: 03-12-2025 End: 23-28-8736Snymbhj encounter procedureLink Ortega RABBLE FURNACE TENDER-C-[facility] Work Phone: Start: 03-08-2025 End: 55-34-2348RlheytDzjdvj Stalter MD Work Phone: noms [facility] MedicineComment on above:Essential hypertensionStart: 01-31-2025 End: 35-92-7581Derjhs flowsVicky Granados NP Work Phone: NOMS [facility] MedicineStart: 01-31-2025 End: 04-08-7539Rgvjpv flowsVicky Granados NP Work Phone: noms [facility] MedicineStart: 93-59-5187Iha- patient / Non-visitLink Ortega RABBLE FURNACE TENDER-C-[facility] MedAvail Work Phone: Start: 01-31-2025 End: 81-68-4259Uwdseqx encounter statusMaria Fernanda Granados NP Work Phone: NONM HealthcareStart: 01-31-2025 End: 11-70-7013Dxwmztyu preventive med est patient 40-64yrsSsandra Granados NP Work Phone: [facility] MedicineComment on above:Wellness examination (Primary Dx); [...] Poorly controlled diabetes mellitus (HCC)Start: 01-31-2025 End: 85-71-2159vjzbdfqaxlEWICRIIF J HOFFMANNot AvailableStart: 11-27-2024 End: 79-59-9953dvabojvjxeKhpbdnfs Hoffman INVESTMENT BANKING MANAGER-C Work Phone: [facility] Work Phone: Start: 11-27-2024 End: 85-94-3552Hzdawrd encounter procedureLink Dee Shannon RABBLE FURNACE TENDER-C-[facility] Work Phone: Start: 10-19-2024 End: 78-98-0993Hofwuu flowsVicky Granados NP Work Phone: noms FNR FMStart: 10-19-2024 End: 70-16-5424Utzbqw Kylah Granados NP Work Phone: noms FNR FMStart: 10-19-2024 End: 58-00-9968Uepolt outpatient visit 15 minutesSajuan Granados NP Work Phone: noms FNR FMComment on above: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); Essential hypertension; 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, sequela (HHS-HCC); Amputation of toe, traumatic, left, sequela (HHS-HCC); Morbid obesity (CMS-HCC); HypertriglyceridemiaStart: 10-19-2024 End: 83-47-4598lixoirmbufJTTOJJHC J HOFFMANNot AvailableStart: 08-21-2024 End: 85-10-0098ugjhfovqlhMrylmtninProvidence Hospital Work Phone: Start: 08-21-2024 End: 99-36-4374Ngpchwt encounter procedureUnc [facility] Work Phone: Start: 07-19-2024 End: 68-19-7386Pniryy outpatient visit 25 minutesElididier Cody NP Work Phone: NONM FNR FMComment on above:Diabetic polyneuropathy associated with [...] Depressed mood; Insomnia, unspecified typeStart: 07-19-2024 End: 47-97-5176qvfascgggkPGOXQONRP A GABELNot AvailableStart: 06-14-2024 End: 74-72-7095evyipakxdpGxas Wonderly MD Work Phone: [facility] Work Phone: Start: 06-14-2024 End: 82-35-7764Qxnbsov encounter procedureNatalie Hernandez MD Work Phone: [facility] Work Phone: Start: 03-32-8004Nbp-patient / Non-visitUnc Health Ch[facility] GroupS[facility] Work Phone: Start: 05-30-2024 End: 67-23-3675Nrvqudheh Result EncounterGeneric External Data ProviderNOMS External Department UnsolicitedStart: 05-30-2024 End: 49-52-2702Qtluwqteb Result EncounterGeneric External Data ProviderNOMS External Department UnsolicitedStart: 05-26-2024 End: 70-31-4947Nkbzuwtqj Result EncounterGeneric External Data ProviderNOMS External Department UnsolicitedStart: 05-26-2024 End: 87-50-4912Shtrhsahl Result EncounterGeneric External Data ProviderNOMS External Department UnsolicitedStart: 04-27-2024 End: 81-62-6696Kafmupfhv Result EncounterGeneric External Data ProviderNOMS External Department UnsolicitedStart: 04-27-2024 End: 88-76-9610Cedbasodk Result EncounterGeneric External Data ProviderNOMS External Department UnsolicitedStart: 04-26-2024 End: 79-97-8197Tccvlrjpt Result EncounterGeneric External Data ProviderNOMS External Department UnsolicitedStart: 04-26-2024 End: 73-22-9028Dlynspptq Result EncounterGeneric External Data ProviderNOMS External Department UnsolicitedStart: 04-26-2024 End: 80-18-3959qajkgdtygcNttd WonderlyFacility:[facility] Start: 04-26-2024 End: 77-89-3470Simtsnob Montse Hernandez MD Work Phone: [facility] Ctr-LAB Path Spec [facility] HospStart: 04-25-2024 End: 30-38-4523Mehwikasm Result EncounterGeneric External Data ProviderNOMS External Department UnsolicitedStart: 04-25-2024 End: 36-46-8689Jcljvvzxn Result EncounterGeneric External Data ProviderNOMS External Department UnsolicitedStart: 04-19-2024 End: 74-70-2041Oexuti flowsLupe Cody INVESTMENT BANKING MANAGER Work Phone: NOMS FNR FMStart: 04-19-2024 End: 75-32-5008Cntuop flowsLupe Cody INVESTMENT BANKING MANAGER Work Phone: noMS FNR FMStart: 04-19-2024 End: 54-47-5486Zmuqsxu encounter statusBlossom Cody INVESTMENT BANKING MANAGER Work Phone: NOMS HealthcareStart: 04-19-2024 End: 48-21-9509Feyaqavv preventive med est patient 40-64yrsElididier Cody NP Work Phone: noms FNR FMComment on above:Diabetic polyneuropathy associated with type 2 diabetes mellitus ([facility]/HCC) (Primary Dx); Wellness examination; Type 2 diabetes mellitus with neurological manifestation ([facility]/HCC); Essential hypertension; 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, subsequent encounter ([facility]); Dyslipidemia ([facility]/HCC); Hypertriglyceridemia ([facility]/HCC); Poorly controlled diabetes mellitus ([facility]/HCC); Type 2 diabetes mellitus with hyperglycemia, with long-term current use of insulin ([facility]/HCC); Amputation of toe, traumatic, left, sequela ([facility]/HCC); Essential hypertension; Diabetic autonomic neuropathy associated with type 2 diabetes mellitus ([facility]/HCC); Acquired hallux valgus, unspecified laterality; Morbid obesity ([facility]); Vitamin B 12 deficiency; 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[facility]/HCC)Start: 04-19-2024 End: 11-08-2929cdysrybsusFHDNDSFPO A GABELNot AvailableStart: 02-28-2024 End: 95-31-1224DmmdbfQlgjBrooke Hernandez MD Work Phone: noms FNR FMComment on above:Pure hyperglyceridemia ([facility])Start: 01-26-2024 End: 73-91-8679lgtadaxuqbFuzmehnpnUC Health Work Phone: Start: 01-26-2024 End: 37-92-2932Sibsbme encounter procedureUnc Health [facility] Physician [facility] Work Phone: Start: 43-59-2495Faq-patient / Non-visitUnc Health Ch[facility] [employer] Work Phone: Start: 01-19-2024 End: 27-23-4573Pznflq flowsheetBlossom Cody INVESTMENT BANKING MANAGER Work Phone: noms FNR FMStart: 01-19-2024 End: 76-01-4272Rualsr Tanvi Cody NP Work Phone: noms FNR FMStart: 01-19-2024 End: 37-07-0037Szuseg outpatient visit 25 minutesBlossom Lozoyael INVESTMENT BANKING MANAGER Work Phone: NOMS FNR FMComment on above:Diabetic polyneuropathy associated with type 2 diabetes mellitus (CMS/HCC) (Primary Dx); 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); Essential hypertension; 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, subsequent encounter ([facility]); Type 2 diabetes mellitus with hyperglycemia, with long-term current use of insulin ([facility]/HCC); Dyslipidemia (CMS/HCC); Hypertriglyceridemia (CMS/HCC); Amputation of toe, traumatic, left, sequela (CMS/HCC); Vitamin B 12 deficiency; Pure hyperglyceridemia (CMS/HCC)Start: 12-30-2023 End: 27-30-0647TnthslYbbmBrooke Hernandez MD Work Phone: noms FNR FMComment on above:Essential hypertension Start: 11-02-2023 End: 46-87-4790Wwosolygt Result EncounterGeneric External Data ProviderNOMS External Department UnsolicitedStart: 11-02-2023 End: 95-26-9313Ptcevthsr Result EncounterGeneric External Data ProviderNOMS External Department UnsolicitedStart: 10-19-2023 End: 97-23-9085gvstknucmqIwbtecfcuUC Health Work Phone: Start: 10-19-2023 End: 90-74-4407Zgxuzfo encounter [facility] Work Phone: Start: 74-84-0475Gakwiv flowsheetBlossom Cody NP Work Phone: NOMS FNR FMStart: 95-78-6830Dfpqil flowsheetBlossom Cody NP Work Phone: noMS FNR FMStart: 06-16-2023 End: 74-63-4256Mtwknj outpatient visit 25 minutesElizamary Cody NP Work Phone: NOMS FNR FMComment on above:Diabetic polyneuropathy associated with type 2 diabetes mellitus (CMS/HCC) (Primary Dx); Diabetic neuropathic arthropathy (CMS/HCC); 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); 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, sequela (CMS/[facility]); Ulcer of foot due to type 2 diabetes mellitus ([facility]); Vitamin B 12 deficiency; Hx of diabetic neuropathy; 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CMS/HCC); Hypertriglyceridemia (CMS/HCC); 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, 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); Essential hypertension; Nasal congestion; Type 2 diabetes mellitus with diabetic autonomic neuropathy, with long-term current use of insulin (CMS/HCC); intermediate card tender (current) use of insulin (Z79.4); Acquired absence of other toe(s), unspecified side (Z89.429); Type 2 diabetes mellitus with diabetic neuropathy, with long-term current use of insulin ([facility]); Body mass index [BMI] 50.0-59.9, adult (Z68.43); Type 2 diabetes mellitus with foot ulcer, with long-term current use of insulin ([facility]); 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.49); Status post amputation of lesser toe, unspecified laterality ([facility]); Arthritis of left foot; Acquired hallux valgus of left foot; Type 2 diabetes mellitus with hyperglycemia, with long-term current use of insulin ([facility]); Morbid obesity ([facility])Start: 06-15-2023 End: 04-90-4702fytszrguykTnrswp [employer] Other [employer] Other Start: 46-98-3956Dnarjsqcl encounterTondra [facility] ClinicStart: 06-09-2023(DM) DiabetesTondra [facility] Care ClinicStart: 06-09-2023 End: 04-50-6873Fckkvhngfz RecurringMD Natalie Hernandez Work Phone: [facility] Work Phone: Start: 06-09-2023 End: 67-00-7920srqsnlecmxEG Natalie Hernandez Work Phone: [employer] Other Start: 06-09-2023 End: 32-63-0484Ycqhhcz encounter procedureMD Natalie Hernandez Work Phone: [facility]-Start: 04-28-2023 End: 65-85-7845Zpffkpltc Result EncounterGeneric External Data ProviderNOMS External Department UnsolicitedStart: 04-28-2023 End: 19-81-5572Nnyfasjfu Result EncounterGeneric External Data ProviderNOMS External Department UnsolicitedStart: 01-04-2023(DM) DiabetesTondra [facility] ClinicStart: 01-04-2023 End: 00-55-3622cixfubtwgvWfdvpx [employer] Other [employer] Other Start: 12-21-2022 End: 64-73-3271paxuchlurwIbcsrl [employer] Other [employer] Other Start: 12-67-7426Owucssbqn encounterTondra Shannon [facility] ClinicStart: 40-67-2981nihiudocfrXNBAN D [facility] Facility:U1Xtzgt: 10-06-2022 End: 52-80-7265clvqvjdghvUWXPP D [facility]Facility:E8Wygkj: 41-52-3700Dozlszaxe for preprocedural cardiovascular examinationPETER D [facility] Hospitaltart: 43-27-5486Qysgrevvn for preprocedural laboratory examinationPETER D [facility] Hospitaltart: 09-30-2022 End: 33-25-4420axkbvxgjxaKYWRY D [facility]ENTERFacility:W1Zrxio: 09-30-2022 End: 81-73-9484Iuxafcidn for preprocedural laboratory examinationPETER D [facility]ENTERFacility:Z5Acimk: 09-15-2022 End: 08-08-9835sjkqtihgzzGYKFE D [facility]ENTERFacility:E2Nanhr: 09-10-2022 End: 50-59-4588plvtvivygtQngfgo [employer] Other [employer] Other Start: 13-12-5947Grnbuxvse encounterTondra Shannon [facility] ClinicStart: 08-24-2022 End: 24-34-1432ngcdiizjxmCQGPO D HIGHLANDERFacility:Y9Eztbo: 08-10-2022 End: 06-21-8418ebvqgrpzuiHykqas [employer] Other [employer] Other Start: 57-42-7050Lbjttycmz encounterTondrlibra Ortega [facility] Care ClinicStart: 08-03-2022 End: 92-56-5317qywvhzzoxfMZ NATALIE B WONDERLYFacility:V5Vrjyi: 07-13-2022 End: 99-98-8297vfzyybgzclBGZOPYGL CULLENFacility:J2Ubpdu: 06-30-2022 End: 27-80-8490xrxgnlvkcyBTGCD D HIGHLANDERFacility:J3Uxdyp: 06-25-2022(DM) DiabetesTondra ShannonFirkansas citys Coordinated Care ClinicStart: 06-25-2022 End: 08-65-2833oldytcvirvZfnyyh [employer] Other [employer] Other Start: 06-16-2022 End: 86-92-6660spzoppddtoMLWWX D HIGHLANDERFacility:M8Ilwwe: 06-08-2022 End: 64-51-6643ktvbvmtmifFOPYI D HIGHLANDERFacility:W9Dylsk: 05-25-2022 End: 33-92-7717eonaqxlpyqVDVBC D HIGHLANDERFacility:Y6Wudcx: 05-12-2022 End: 73-23-7915eprwozgmsuTWMBX D HIGHLANDERFacility:M4Vaxgo: 04-30-2022 End: 30-39-6125ptenfwgupsMJQNT D HIGHLANDERFacility:Y6Humwr: 04-24-2022 End: 03-00-9115mogfpgkoqkNVVKU D HIGHLANDERFacility:Q1Cbiqb: 04-17-2022 End: 03-06-7786dncyoerzgbKLRNL D HIGHLANDERFacility:C4Cuaza: 04-08-2022 End: 98-15-1396blfagkgadkUBOTS D HIGHLANDERFacility:K6Iovcf: 03-31-2022 End: 47-87-1564cnzzavmswaARTFD D HIGHLANDERFacility:B4Craac: 03-23-2022 End: 67-56-7016wzwkxkyvnmPDYPP D HIGHLANDERFacility:O2Frhmp: 03-16-2022 End: 12-26-5375txpgmqlksyWHLHU D HIGHLANDERFacility:I6Zmntq: 03-09-2022 End: 06-50-2033rinunveihuCSKRO D HIGHLANDERFacility:W3Nvqzj: 03-03-2022 End: 41-97-2949ttrzxkufolJAGSH D HIGHLANDERFacility:H0Ddfbd: 02-18-2022 End: 15-68-0894uyodsipztnFieflj [employer] Other [employer] Other Start: 26-63-0927Vevwcrgdl encounterTondra [place] [facility] ClinicStart: 02-09-2022 End: 46-26-2804ecygdjqtfzREMOT D HIGHLANDERFacility:W6Zjknp: 01-26-2022 End: 85-09-4661senhodmsmcOFTTP D HIGHLANDERFacility:H9Cqkrz: 01-13-2022 End: 33-40-3248wuohotxvanQXZTX D HIGHLANDERFacility:O2Jobwl: 01-06-2022(DM) DiabetesTondra DayannausUnc Health Chatham Coordinated Care ClinicStart: 01-06-2022 End: 47-91-1995rchdzoaovmUcnxii [employer] Other [employer] Other Start: 12-29-2021 End: 59-55-3634rqowlhfoarRYSPX D HIGHLANDERFacility:L0Lvkya: 12-22-2021 End: 18-61-8645bffhoxyhxjPNRLI D HIGHLANDERFacility:J4Iavdt: 12-15-2021 End: 05-15-5139ahedhjvsddPKISE D HIGHLANDERFacility:S4Dqlkp: 12-08-2021 End: 01-10-7318tdpcbavcyyIQBWO D HIGHLANDERFacility:O7Uwvnp: 12-01-2021 End: 84-82-2856iqktmcpsdlRSYLP D HIGHLANDERFacility:A2Ycfad: 11-24-2021 End: 49-82-7021ndluybrdexKAFTZ D HIGHLANDERFacility:U2Jxbjg: 11-20-2021 End: 70-24-3631dzyqbiunxvTLRRE D HIGHLANDERFacility:G2Dvazw: 11-17-2021 End: 68-29-1758sodlsgqvnoCRACM D HIGHLANDERFacility:X4Pqfsg: 11-14-2021 End: 71-47-0905qyiuleehajQZCKM D HIGHLANDERFacility:Q1Twaku: 11-11-2021 End: 64-67-5547pajnlwyfflZTIPT D HIGHLANDERFacility:F6Tseer: 11-06-2021 End: 53-67-4638aeqkthphknYFUQG D HIGHLANDERFacility:Q7Txtcx: 11-03-2021 End: 52-39-8314mcmbpqocjyKFGKD D HIGHLANDERFacility:U1Wevcs: 10-30-2021 End: 21-68-3027ynlztkhtvdTNVEG D HIGHLANDERFacility:E3Oalvj: 10-27-2021 End: 11-36-5303qsdmwwtnfrJDIPN D HIGHLANDERFacility:J5Rfazf: 10-23-2021 End: 79-20-9755xbwsbeouhmSVFDJ D HIGHLANDERFacility:X2Psifj: 10-21-2021 End: 00-21-9059ctuelhbodkVNMKN D HIGHLANDERFacility:H1Nhrxj: 10-20-2021 End: 73-89-1937ebitluegqjAPLMW D HIGHLANDERFacility:H1 Procedures DateProcedureProcedure DetailPerforming ClinicianStart: 97-62-1410QAUDV CULTURE 2Generic External Data ProviderStart: 75-58-9412EFPRVQH CULTUREGeneric External Data ProviderStart: 13-90-4324XONRH CULTURE 2Generic External Data Provider Start: 16-13-3324QIKBZ CULTURE 1Generic External Data ProviderStart: 04-26-2024 ACID FAST CULTUREGeneric External Data ProviderStart: 49-15-0186DYHO FAST SMEAR Generic External Data ProviderStart: 29-99-4099SATWVVN CULTUREGeneric External Data ProviderStart: 59-47-1259FYX SPECIMEN PROCESSINGGeneric External Data ProviderStart: 46-93-8769JNNRCTIAG CULT, EXTENDED INCUBGeneric External Data ProviderStart: 41-03-8605TYMAIXCIZ CULTUREGeneric External Data ProviderStart: 39-20-4085ASOQBJ (MYCOLOGY) CULTUREGeneric External Data ProviderStart: 49-07-4626NQZODB STAINGeneric External Data ProviderStart: 47-75-3203QISZ STAIN RESULTGeneric External Data ProviderStart: 83-74-4176OTELSX CULTUREGeneric External Data ProviderStart: 92-24-3341WJ FOOT RT MIN 3VGeneric External Data ProviderStart: 85-59-7925GNUHP CULTURE 2Generic External Data ProviderStart: 80-67-3607DH FOOT RT MIN 3VGeneric External Data ProviderStart: 96-90-7992LH FOOT LT MIN 3VGeneric External Data ProviderAmputation of toeTondra [employer] Other History of amputation of lesser toeStatus post amputation of lesser toe, unspecified laterality ([facility]/HCC)Blossom Cody INVESTMENT BANKING MANAGER Work Phone: Plan of Treatment DateCare ActivityDetailAuthorStart: 93-54-2115Lpfdrymp screeningDiabetes: Retinopathy ScreeningNOMS HealthcareStart: 47-72-4303Puoonzwlo for malignant neoplasm of colonColorectal Cancer ScreeningNOMS HealthcareComment on above: Postponed from 1979 (Patient Refused)Start: 97-01-2034Txcheycbo vaccinationInfluenza Vaccine (#1)NOMS HealthcareComment on above:Postponed from 01/08/2025 (Patient Refused)Start: 38-09-3010Oaefczjn screeningDiabetes: Retinopathy ScreeningNOMS HealthcareStart: 04-24-2025 End: 56-52-7600Mcakipd encounter yptbssctp13/16/2025 9:30 AM EST Office Visit [facility] Medicine [address] [place] [phone] Maria Fernanda Granados NP [address] [facility] [place] [address] [facility] MedicineStart: 01-31-2025 End: 80-28-4087Ozgyrvfwpotc/Creatinine panel in random UrineMicroalbumin / creatinine, urine ratio Lab Routine 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) Expected: 01/31/2025 (Approximate), Expires: 01/31/2026NONM Healthcare Work Phone: Comment on above:Expected: 01/31/2025 (Approximate), Expires: 01/31/2026Start: 01-31-2025 End: 98-70-6524Pvwtxxl encounter procedureNOMS FNR FMComment on above:Arrived Start: 18-38-1142RRUXY-19 Vaccine ( season)COVID-19 Vaccine ()[facility] HealthcareStart: 37-51-0681Ikhvrsdoh vaccinationInfluenza Vaccine (#1)[facility] HealthcareStart: 78-70-8342Keeeovmgem A1c measurementDiabetes: Hemoglobin P5PNRSB HealthcareStart: 10-19-2024 End: 11-07-2712Hchfiep encounter procedureNOMS FNR FMComment on above:Arrived Start: 07-19-2024 End: 63-61-6397Rkstrdk encounter uqefoofdr49/12/2025 9:30 AM EDT [facility] [address] [place] [phone] Blossom Cody NP [address] [place] [address] [facility] FMStart: 49-42-9566Bhqidotghc A1c measurementDiabetes: Hemoglobin A1C [facility] HealthcareStart: 04-19-2024 End: 01-25-5005Nwyehkj encounter procedureNOMS FNR FMComment on above:Diabetic polyneuropathy [...] Amputation of toe, traumatic, left, sequela (CMS/HCC)Start: 87-00-5605Mjgcq screening for proteinDiabetes: Urine Protein ScreeningNOMS HealthcareStart: 43-80-8770Gcgvqtqfb vaccinationInfluenza Vaccine (#1)NOMS HealthcareComment on above:Postponed from 01/09/2024 (Patient Refused)Start: 01-25-2024 End: 60-51-0463Pziixnp encounter xprqotsci54/17/2024 10:30 AM EDT Office Visit [facility] FNR [address] [place] [phone] Blossom Cody NP [address] [place] [address] NOMS R FMStart: 52-95-1351Hbpzkroqwx A1c measurementDiabetes: Hemoglobin A1C NOMS HealthcareStart: 01-19-2024 End: 36-12-5348Yiecxni encounter jjaoqlstp66/11/2024 11:00 AM EDT Office Visit [facility] FNR [address] [place] [phone] Blossom Cody NP [address] [place] [address] Diabetic polyneuropathy associated with type 2 diabetes mellitus ([facility]/HCC) (Primary Dx); 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); Essential hypertension; 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, subsequent encounter ([facility]/HCC); Type 2 diabetes mellitus with hyperglycemia, wi th long-term current use of insulin (CMS/HCC); Dyslipidemia (CMS/HCC); Hypertriglyceridemia (CMS/HCC); Amputation of toe, traumatic, left, sequela (CMS/HCC); Vitamin B 12 deficiencyNONM FNR FMComment on above:Diabetic polyneuropathy associated with type 2 diabetes mellitus ([facility]/HCC) (Primary Dx); Type 2 diabetes mellitus with neurological manifestation ([facility]/HCC); Essential hypertension; 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, subsequent encounter ([facility]); Type 2 diabetes mellitus with hyperglycemia, with long-term current use of insulin ([facility]); Dyslipidemia ([facility]); Hypertriglyceridemia ([facility]); Amputation of toe, traumatic, left, sequela ([facility]); Vitamin B 12 deficiencyStart: 03-26-4005Tneacztpu vaccinationInfluenza Vaccine (#1)[facility] HealthcareStart: 54-77-3685MYwK/Tdap/Td Vaccines (3 - Tdap)DTaP/Tdap/Td Vaccines (3 - Tdap)NOM HealthcareStart: 09-15-2023 End: 87-78-5468Dmfzvst encounter qyjsnnrqe44/08/2024 9:30 AM EDT Office Visit [facility] TIM[facility] [address] [place] [phone] Blossom Cody NP [address] [place] [address] NOMS R FMStart: 71-66-3842Rriujxcaes A1c measurementDiabetes: Hemoglobin A1C NOM HealthcareStart: 88-50-4948Bolenuyd screeningDiabetes: Retinopathy ScreeningNONM HealthcareStart: 07-07-2023 End: 74-15-6465Zklwkml encounter csyhqqwiu39/28/2024 9:00 AM EST Office Visit [facility] [address] [place] [phone] [facility] FNR FMStart: 06-16-2023 End: 74-69-7919Zbfqmeb encounter kpkgkocar13/07/2024 11:00 AM EST Office Visit [facility] [address] [place] [phone] Blossom Cody NP [address] [place] [address] Diabetic polyneuropathy associated with type 2 diabetes [...] 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CMS/HCC); Morbid obesity (CMS/HCC); Hypertriglyceridemia(CMS/HCC)[facility] FNR FMComment on above:Diabetic polyneuropathy associated [...] disorder (CMS/HCC); Morbid obesity (CMS/HCC); Hypertriglyceridemia (CMS/HCC)Start: 02-71-1498AMU Vaccines (1 - 3-dose SCDM series)HPV Vaccines (1 - 3-dose SCDM series)[facility] HealthcareStart: 10-09-1998 Hepatitis B Vaccines (1 of 3 - 19+ 3-dose series)Hepatitis B Vaccines (1 of 3 - 19+ 3-dose series)[facility] HealthcareStart: [id number] Vaccine: Pediatrics (0 to 5 Years) and At-Risk Patients (6 to 64 Years) (1 of 2 - PCV) Pneumococcal Vaccine: Pediatrics (0 to 5 Years) and At-Risk Patients (6 to 64 Years) (1 of 2 - PCV)[facility] HealthcareStart: [id number] Vaccines (1 of 1 - Standard series)MMR Vaccines (1 of 1 - Standard series)[facility] HealthcareStart: [id number] for malignant neoplasm of colonNOMS HealthcareAEROBIC CULTUREAEROBIC CULTURE Lab Routine 05/26/2024 6:16 PM ESTNOMS HealthcareBLOOD CULTURE 1BLOOD CULTURE 1 Lab Routine 04/27/2024 6:10 AM ESTNONM HealthcareBLOOD CULTURE 2BLOOD CULTURE 2 Lab Routine 04/25/2024 1:00 PM ESTNONM HealthcareBLOOD CULTURE 2BLOOD CULTURE 2 Lab Routine 04/27/2024 6:24 AM ESTNONM HealthcareBLOOD CULTURE 2BLOOD CULTURE 2 Lab Routine 05/30/2024 12:28 PM [facility] Comprehensive metabolic 1999 panel - Serum or PlasmaMercy Health Allen HospitalComprehensive metabolic 1999 panel - Serum or [facility] Hospital[facility] Work Phone: [facility] Immunizations Immunization DateImmunizationNotesCare RkgflfydStycapvm78-99-5945awoszogcu, seasonal, injectable, preservative freeTanyabejaja Glo INVESTMENT BANKING MANAGER Work Phone: [facility] HospitalGvbfoxygzw34-40-1995kavanhuug virus vaccine, unspecified formulationElizabejaja Cody INVESTMENT BANKING MANAGER Work Phone: [facility] HospitalPrxbjligjj78-76-8537gwcrqoe and diphtheria toxoids, adsorbed, preservative free, for adult use (2 Lf of tetanus toxoid and 2 Lf of diphtheria toxoid)Natalie Hernandez MD Work Phone: [facility] HospitalHgejufrkpv82-04-9096spdhwweon, injectable, quadrivalent, preservative freeBlossom Glo INVESTMENT BANKING MANAGER Work Phone: [facility] HospitalYhckrbueqb86-10-3575tntjeixoj virus vaccine, unspecified formulationNatalie Hrenandez MD Work Phone: [facility] HospitalEpemyhhpif18-71-6915igdzpin and diphtheria toxoids, adsorbed, preservative free, for adult use (5 Lf of tetanus toxoid and 2 Lf of diphtheria toxoid)Blossom Cody INVESTMENT BANKING MANAGER Work Phone: [facility] HospitalYujzznspzf26-78-8668sconimemv, injectable, quadrivalent, preservative freeTanyabejaja Glo INVESTMENT BANKING MANAGER Work Phone: [facility] HospitalDbllfwymev54-27-4491Xcgzvupfo, injectable, Madin Baldwin Canine Kidney, preservative free, quadrivalentElizabeth Glo INVESTMENT BANKING MANAGER Work Phone: [facility] HospitalCjzprcijzd91-46-9739zrwiuaeoa, injectable, quadrivalent, preservative freeElizabeth Glo INVESTMENT BANKING MANAGER Work Phone: noSt. [facility] HospitalQwghkosrip38-13-0532ffflrakib, injectable, quadrivalent, preservative freeElizabeth Glo INVESTMENT BANKING MANAGER Work Phone: [facility] Payers DatePayer CategoryPayerPolicy [id number] Health Insurance [id number] [id number]2-90-3027Vfge-hjo [id number] 2.840.1.486491.3.57[id number] 2.840.1.142875.3.57[id number] 2.840.1.368353.3.57[id number] 2.16840.1.712156.3.579.2.63666-54-9772Ndfsprc5383636 2.16.840.1.383517.3.579.2.96282-84-8806Ytorvzr0274037 2.16.840.1.541521.3.579.2.55625-40-5514Bdzgdcd7039033 2.16.840.1.008996.3.579.[id number] 2.16.840.1.578539.3.579.2.60157-25-6226Aroqgjv1672174 2.16.840.1.768502.3.579.[id number] 2.16.840.1.118408.3.579.2.12624-27-7332Iidixdz6312009 2.16.840.1.324598.3.579.2.99813-25-6783Ywbfwvy4840652 2.16.840.1.162741.3.579.2.42741-35-5075Mfdrjar2605994 2.16840.1.330565.3.579.2.23342-92-4763Rvxwnhf6004963 2.16840.1.408816.3.579.2.43410-77-7211Uroxyfi8016986 2.16840.1.877306.3.579.2.62068-33-9704Lyxhgbe0798640 2.16840.1.470477.3.579.2.09335-37-1186Wwcuuwp4502654 2.840.1.126582.3.579.2.56876-48-2239Uoyyeam9037178 2.16840.1.444197.3.579.2.06318-92-9341Axllcyk3321159 2.16840.1.649371.3.579.2.76448-08-0957Bsfoume8203791 2.16.840.1.016732.3.579.2.26539-86-2289Jkrifwx3538788 2.16840.1.421249.3.579.2.13392-08-6694Nqrnkmn4798291 2.16840.1.809470.3.579.2.71346-19-4769Ublpyay5336860 2.16840.1.258314.3.579.2.15124-50-3576Izxjexj3914261 2.840.1.297068.3.579.2.17089-80-5994Psuvxfi3116605 2.16840.1.711175.3.579.2.11748-43-2575Mufozpa8216684 2.840.1.107989.3.579.2.93886-59-0502Vpurrtl8199044 2.840.1.169521.3.579.2.76412-11-5538Dqbaiui6506765 2.840.1.224625.3.579.2.57100-97-2618Fhurgpt0217729 2.840.1.199198.3.579.2.89575-91-7353Qcuiwja9299926 2.0.1.407423.3.579.2.10787-97-9421Cprgmmr5974274 2.0.1.524550.3.579.2.55323-44-7113Zuzgyjz4139800 2.0.1.551898.3.579.2.81340-68-2467Dmlrbul2514073 2.0.1.181763.3.579.2.63748-35-6307Avrvaey5009985 2.0.1.817786.3.579.2.27188-93-4664Hqzlvca1082645 2.840.1.784960.3.579.2.74162-68-5829Ujqyyoj3505121 2.0.1.334524.3.579.2.35021-65-5597Jymfoju7523378 2.840.1.496861.3.579.2.21011-87-4156Lwedlfl0162706 2.840.1.731261.3.579.2.54328-69-4374Obnkihz3364706 2.16.840.1.049323.3.579.2.50558-16-1666Zpeyxfk2071690 2.16.840.1.345606.3.579.2.90413-14-0790Mibtrzk1351131 2.16.840.1.964419.3.579.2.00825-23-9278Tgrtfva12489963 2.16.840.1.748486.3.579.2.252058-75-8576Exkeaqk10518768 2.16.840.1.302215.3.579.2.949033-94-6725Uslwghq1926295 2.16.840.1.581804.3.579.2.512160-54-8891Xmsttls7596743 2.16.840.1.222794.3.579.2.555311-42-6024Jlmleuf776392973 2.16.840.1.353445.19 47-81-6280Spevtzk87524654 2.16.840.1.983003.90Npkgeyn53998284 2.16.840.1.344146.3.579.2.178Xpikrtv14457456 2.16.840.1.174369.3.579.2.531 Social History DateTypeDetailFacilityUnknown if ever smokedNomosaic life care at [facility] Yumm[facility] Other Start: 03-23-2023 End: 83-19-2232Ukr Assigned At BirthNONM HealthcareStart: 53-75-8555Tswdmmc smoking status NHISNever smoked tobaccoNONM HealthcareStart: 80-55-2371Tdnejeh use and exposureSmokeless tobacco non-userNOMS HealthcareStart: 05-18-2023 End: 04-89-3239Jejvygu intakeCurrent drinker of alcohol (finding)[facility] Start: 03-23-2023 End: 65-73-0864Bxgkemw intakeNONM HealthcareStart: 24-53-4630Nhzkdj the last year, have you been afraid of your partner or ex-partner?Patient refusedNONM HealthcareAre you now , , , , never or living with a partner?RefusedNONM Healthcare(I/We) worried whether (my/our) food would run out before (I/we) got money to buy more.DK or RefusedNOMS Healthcare Start: 71-32-1723Rei Assigned At BirthNot on fileNONM HealthcareStart: 92-01-2445Cnc Assigned At BirthMalOhioHealth Grove City Methodist Hospitaltart: 10-19-2023 End: 45-91-0184Hucqsct smoking status NHISEx-smoker (finding)[facility] Limatart: 06-14-2024 End: 03-01-2959FwrFdqz (finding)[facility] HospitalHow often to you have a drink containing alcohol?2-3 time sa weekNONM HealthcareHow many standard drinks containing alcohol do you have on a typical day?1 or 2NOMS HealthcareHow often do you have 6 or more drinks on 1 occasion?NeverNONM HealthcareStart: 28-82-0192Byadbix Commentcaffeine: 2-3 cups dailyNONM Healthcare Medical Equipment Procedure CodeEquipment CodeEquipment Original TextEquipment IdentifierDates Start: 70-16-0399Mlbqzaq Syringe-Needle U-100 (Bd Insulin Syringe Ultra-Fine) 1 mL 31 gauge x 5/16 syringeStart: 01-60-6342tkulo sugar diagnostic (OneTouch Verio test strips)Start: 33-27-6776Ffljqkv Syringe-Needle U-100 (Bd Insulin Syringe Ultra-Fine) 1 mL 31 gauge x 5/16 syringeStart: 45-19-5175aghrf sugar diagnostic (OneTouch Verio test strips)Start: 53-48-1707Jeqfc Sugar Diagnostic (Onetouch Verio Test Strips) stripStart: 52-70-2058Jwthtmo Syringe-Needle U-100 (Bd Insulin Syringe Ultra-Fine) 1 mL 31 gauge x 5/16 syringeStart: 06-23-2023 blood sugar diagnostic (OneTouch Verio test strips)Start: 36-39-3827Rbbkk Sugar Diagnostic (Onetouch Verio Test Strips) stripStart: 91-82-5634Knmxslk Syringe- Needle U-100 (Bd Insulin Syringe Ultra-Fine) 1 mL 31 gauge x 5/16 syringeStart: 53-15-1508Vguhn Sugar Diagnostic (Onetouch Verio Test Strips) stripStart: 86-92-0761Klnynsx Syringe-Needle U-100 1 mL 31 gauge x 5/16 syringeStart: 68-27-8131Gsy Needle, Diabetic 32 gauge x 5/32 needleStart: 75-90-9782joqrg sugar diagnostic (OneTouch Verio test strips)Start: 10-19-2023 End: 21-83-4536Zbctkyj Syringe-Needle U-100 (Bd Insulin Syringe Ultra-Fine) 1 mL 31 gauge x 5/16 syringeStart: 06-23-2023 End: 47-73-7961Xweve Sugar Diagnostic (Onetouch Verio Test Strips) stripStart: 39-34-0236Fkinvqp Syringe-Needle U-100 1 mL 31 gauge x 5/16 syringeStart: 01-70-4732qtaov sugar diagnostic (OneTouch Verio test strips)Start: 10-19-2023 End: 93-21-9636Dddmtsn Syringe-Needle U-100 (Bd Insulin Syringe Ultra-Fine) 1 mL 31 gauge x 5/16 syringeStart: 06-23-2023 End: 61-05-4629Ros Needle, Diabetic 32 gauge x 5/32 needleStart: 08-21-2024 End: 80-77-8196Nmf Needle, Diabetic 32 gauge x 5/32 needleStart: 08-21-2024 End: 59-25-8202Yjmsk Sugar Diagnostic (Onetouch Verio Test Strips) stripStart: 44-36-6518Rfplqak Syringe-Needle U-100 1 mL 31 gauge x 5/16 syringeStart: 96-17-0977Tpd Needle, Diabetic 32 gauge x 5/32 needleStart: 84-91-5375gxrwv sugar diagnostic (OneTouch Verio test strips)Start: 10-19-2023 End: 30-03-9880Jfkmuyl Syringe-Needle U-100 (Bd Insulin Syringe Ultra-Fine) 1 mL 31 gauge x 5/16 syringeStart: 06-23-2023 End: 51-07-8859Dqa Needle, Diabetic 32 gauge x 5/32 needleStart: 08-21-2024 End: 84-48-1859Zcp Needle, Diabetic 32 gauge x 5/32 needleStart: 08-21-2024 End: 11-27-2024 Goals DatePatient GoalDesired Activity/StatePersonal health goal Functional Status BofiDktcjqqfzaHinmtgLgbedxbe22-61-1533Gfhet score [AUDIT-C]3 01/31/2025 9:27 AM EDT [facility] 05-10-2020 to 01-31-2025 Note Date & VzciGehnUrimqhxk35-63-2411 History of Present illness Narrative* Nohemi Castrejon [...] He is under the care of an oiler and greaser, Dr. Link Iverson, with whom he has [...] He is under the care of a excellence consultant and reports no foot-related issues. He [...] seeing any other specialists besides us, his excellence consultant, and endo. He is considering colon [...] Medical History: Diagnosis Date BMI 40.0-44.9, adult ([facility]) BMI 45.0-49.9, adult ([facility]) Constipation COVID-19 DM (diabetes mellitus) ([facility]) Dyslipidemia History of being hospitalized 03/2018 Uncontrolled diabetes, infection History of COVID-19 05/13/2020 Non-pressure chronic ulcer of other part of unspecified foot with unspecified severity ([facility]) 10/02/2022 Osteomyelitis of great toe of right foot ([facility]) 10/02/2022 Osteomyelitis of right foot ([facility]) 10/02/2022 Pressure ulcer of other site, stage 2 ([facility]) 10/02/2022 Ulcer of foot due to type 2 diabetes mellitus ([facility]) 10/02/2022 Ulcerated, foot, left, limited to breakdown of skin ([facility]) 10/02/2022 Past Surgical History: Procedure Laterality Date AMPUTATION FOOT / TOE Right 03/2018 2nd toe AMPUTATION FOOT / TOE Right 01/10/2021 [facility] - Dr. Moore AMPUTATION FOOT / TOE Left 05/17/2023 4th toe - Dr. Feldman CHEILECTOMY Left 02/14/2020 [facility] CHEILECTOMY Left 09/15/2018 1st Metatarsal FOOT AMPUTATION Right 09/2021 midfoot INCISION AND DRAINAGE FOOT Right 04/26/2024 Dr Feldman INCISION AND DRAINAGE FOOT Right 05/30/2024 Dr. Feldman SKIN GRAFT Right 10/14/2021 Application of allogenic skin substitute foot. Neg pressure wound therapy TOE SURGERY Left 10/2022 great toe, Dr Feldmna Family History Problem Relation Name Age of [...] Friends and Family: Twice a week Attends Christian Services: More than 4 times per year [...] ([facility]HS-HCC) Amputation of toe, traumatic, left, sequela ([facility]) Arthritis of left foot Morbid obesity ([facility]) Type 2 diabetes mellitus with hyperglycemia, with long-term current use of insulin ([facility]) Lipoprotein deficiency disorder Hypertriglyceridemia Dyslipidemia Vitamin B 12 deficiency Poorly controlled diabetes mellitus ([facility]) Assessment & Plan 1. Diabetes mellitus: - Blood sugar levels at home range from 120s to 160s-170s fasting, which is well-controlled. - He is currently on Victoza, metformin, and long-acting insulin 46 units twice a day. He also usesshort-acting insulin with meals. His last A1c in November was between 7.8 and 7.9. - No additional blood work is needed today as his oiler and greaser has already ordered it. He will follow up with his oiler and greaser in March for further management. - He [...] follow up. documented in this encounterMatthew Ville [id number] History of Present illness Narrative* Maria Fernanda Granados, INVESTMENT BANKING MANAGER - 10/19/2024 10:00 AM EDT Images from the original note were not included. Trev Ontiveros is a 44 y.o. male presents with chief complaint of Follow-up (3 month DM) HPI: HPI History of Present Illness The patient is a 44-year-old male who presents to the office for follow-up today. He is under the care of an oiler and greaser for his diabetes, with a scheduled appointment [...] necessitated surgical intervention and subsequent rehabilitation at [facility] due to his inability to bear weight on the foot. During his two-month stay at [facility], he contracted MRSA. He underwent physical therapy [...] He maintains regular annual check-ups with an textile broker and dentist. He reports no gastrointestinal symptoms [...] Medical History: Diagnosis Date BMI 40.0-44.9, adult ([facility]) BMI 45.0-49.9, adult ([facility]) Constipation COVID-19 DM (diabetes mellitus) ([facility]) Dyslipidemia History of being hospitalized 03/2018 Uncontrolled diabetes, infection History of COVID-19 05/13/2020 Non-pressure chronic ulcer of other part of unspecified foot with unspecified severity ([facility]) 10/02/2022 Osteomyelitis of great toe of right foot ([facility]) 10/02/2022 Osteomyelitis of right foot ([facility]) 10/02/2022 Pressure ulcer of other site, stage 2 ([facility]) 10/02/2022 Ulcer of foot due to type 2 diabetes mellitus ([facility]) 10/02/2022 Ulcerated, foot, left, limited to breakdown of skin ([facility]) 10/02/2022 Past Surgical History: Procedure Laterality Date AMPUTATION FOOT / TOE Right 03/2018 2nd toe AMPUTATION FOOT / TOE Right 01/10/2021 Hall[facility] - Dr. Moore AMPUTATION FOOT / TOE Left 05/17/2023 4th toe - Dr. Feldman CHEILECTOMY Left 02/14/2020 [facility] CHEILECTOMY Left 09/15/2018 1st Metatarsal FOOT [...] Friends and Family: Twice a week Attends Christian Services: More than 4 times per year [...] toe, traumatic, left, sequela ([facility]-H[facility]) Morbid obesity ([facility]) Hypertriglyceridemia Assessment & Plan 1. Type 2 diabetes mellitus. He is currently under the care of an oiler and greaser, with his most recent A1c level recorded [...] (around 01/19/2025) for DM. documented [facility]03[facility]12[facility] History of Present illness Narrative* Blossom [...] wound , [place] weight [place] it for awhile. Had MRSA while there. Had IV ATB 4 times a day for [address] Nolasco in [place]. Was taking Vit D weekly in rehab. Had PT daily there. Now area is approx 50 cent size (medial lateral right foot). Sees Dr Feldman. Has been home for 2 weeks now. Blood sugars 120-160 fasting and after meals.Taking Lantus 42-46 units. Held [facility], they started Victoza-pt will clarify [...] Wellness in Apr 2024) documented in this encounterLiberty HospitalQymgyzphtj21-12-3275 Evaluation note* Diagnosis Onset Date Resolution Status [...] 2024 8:51amWound of right footacuteApril 2024 8:51am [facility] Work Phone: [phone] History of Present illness Narrative* Blossom Cody, INVESTMENT BANKING MANAGER - 04/19/2024 10:00 AM EST Images [...] type 2 diabetes mellitus ([facility]) Comments: Pt sees endo. HgbA1c 01/31 7.4 (prior 9.7 in October). Enc yearly eye exam. Watch sweets, portions on carbs. Enc to to be as active as able. Endo did lab Jan 19 Urine micro, CMP, Lipid. 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 Avoid sweets. enc fruit and elliot veget, lean protein nuts,exercise Poorly controlled diabetes mellitus ([facility]/HCC) Type 2 diabetes mellitus with hyperglycemia, with long-term current use of insulin (CMS/HCC): See Endo Amputation of toe, traumatic, left, sequela ([facility]/HCC): Sees Podiatry Diabetic autonomic neuropathy associated with type 2 diabetes mellitus ([facility]/HCC: See above Acquired hallux valgus, unspecified laterality: Sees Podiatry Morbid obesity ([facility]): See above Vitamin B12 deficiency: 374 on recent lab in Jan Lipoprotein deficiency disorder F/U in July or August for recheck-hypertension/Diabetes, sooner if concerns documented in this [facility]10-21-[facility]24 Telephone encounter Note* Telephone Encounter - Blossom Cody NP - 02/28/2024 11:53 AM EDT [facility]gf[facility]ilw[facility]-4516 Miscellaneous Notes* Telephone Encounter - Blossom Cody NP - 02/28/2024 11:53 AM EDT Rx sent documented in this [facility]09-11-2024 History of Present illness Narrative* Blossom [...] type 2 diabetes mellitus ([facility]) Comments: HgbA1c 9.7 in October. He sees Endo. Plans to do lab for them this week. He has Endo appt next week. Enc yearly eye exams. Enc to watch portions on carbs, avoid sweets. Try to be as active as able. Type 2 diabetes mellitus with neurological manifestation (CMS/[facility]) Essential hypertension: Controlled. Pt will verify what dose he has at home ie 30 or 40mg of Lisinopril. 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 PVU documented in this [facility]08-22-2024 Telephone encounter Note* Telephone Encounter - Blossom Cody NP - 12/30/2023 4:44 PM EDT Rx sent [facility] Hfpupjwear17-45-2410 Miscellaneous Notes* Telephone Encounter - Blossom Cody NP - 12/30/2023 4:44 PM EDT Rx sent documented in this [facility]02-07-2024 History of Present illness Narrative* Blossom [...] type 2 diabetes mellitus ([facility]) Comments: Sees Joshua, last HgbA1c 8.11 May 2023 (prior 8.9 end of December). Pt asked me why we can't just take care of his Diabetes, so he doesn't have to go to [place]. 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 Now has left foot toe amputated. Per pt toe is healing Ulcer of foot due to type 2 diabetes mellitus ([facility]/HCC): Hx of Poorly controlled diabetes mellitus ([facility]): Last HgbA1c 8.2 Type 2 diabetes mellitus with hyperglycemia, with long-term current use of insulin ([facility]): As above Vitamin B 12 deficiency Comments: Last WNL at 351 Hx of diabetic neuropathy: Hx of 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CMS/HCC): Hx of Morbid obesity ([facility]) Comments: Enc healthy diet, watch sweets carbs. Balance diet with carb proteinm try to add vegeatbles, Enc physical activity as able Hypertriglyceridemia ([facility]) Comments: Last lipids 04/01 Chol 142, Trig [...] current use of insulin ([facility]): Hx of [facility] (current) use of insulin (Z79.4): Hx of Acquired absence of other toe(s), unspecified side (Z89.429): Hx of Type 2 diabetes mellitus with diabetic neuropathy, with long-term current use of insulin ([facility]);Hx of Body mass index [BMI] 50.0-59.9, adult (Z68.43): See above. Discussed seeing weight loss provider or seeing someone about gastric bypass-pt declined both. 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 6. Prescriptions: [facility] [place]- syringes, pen needles, victoza sent. 06/09/23 7. [...] - R23.4) keep f/u with Dr. Feldman [facility] Other 08-28-2023 Evaluation note* Encounter Date Diagnosis [...] for Lispro/ozempic 0.5mg sent to [facility] in [place] 01/04/23 7. Prescriptions will not be filled [...] has apt scheduled with Dr. Feldman today [employer] Other 05-30-2023 NotePROCEDURE: XR FOOT LT MIN [...] Electronically authenticated by: FRANCO FRANCES Date: 2022-10-06 14:13[facility]05-04-2023 Evaluation note* Encounter Date Diagnosis Assessment Notes Treatment Notes Treatment Clinical Notes September, Type 2 diabetes mellitus with hy perglycemia (ICD-10 - E11.65) [employer] Other 04-17-2023 NotePROCEDURE: XR FOOT LT MIN [...] Electronically authenticated by: QASIM SOSA Date: 2022-08-24 12:46[facility]02-16-2023 Evaluation note* Encounter Date Diagnosis Assessment Notes Treatment Notes Treatment Clinical Notes Jun, Type 2 diabetes mellitus with hy perglycemia (ICD-10 - E11.65) 1. Uncontrolled, a Type 2 diabetes with A1c of 8.2% 2. Blood glucose levels above target. Discussed with pt restarting ozempic, he had s/e from higher dose ozempic 1mg and concern with cost works at [employer]. Pt agreeable to starting sample ozempic 0.5mg [...] 6. Prescriptions: Syringes/ozempic/steglatro sent to [facility] in [place] 06/25/22 7. Prescriptions will not be filled [...] target Jun,MI 50.0-59.9, adult (ICD-10 - Z68.43) [employer] [employer] Other [id number] NotePROCEDURE: XR ANKLE LT MIN 3 V, [...] Electronically authenticated by: GISSEL NAYAK Date: 2022-06-16 16:33[facility]02-07-2023 NotePROCEDURE: XR ANKLE LT MIN 3 [...] Electronically authenticated by: GISSEL NAYAK Date: 2022-06-16 16:33[facility]08-30-2022 Evaluation note* Encounter Date Diagnosis Assessment [...] last visit, continue with weight loss efforts [employer] Other 01-01-2021 History general Narrative - Reported* Type Description Date Medical History type II diabetes Medical HistoryhypertensionMedical HistoryhyperlipidemiaMedical Historycovid urgical HistoryUlcer on left great toe V0Lftmjedp HistoryPartial amputation Right great toeurgical HistoryAll toes right foot amputated 09/2021Hospitalization HistoryToe vhzstryvw6801 [employer] Other 01-01-2021 History general Narrative - Reported* Type Description Date Medical History type II diabetes Medical HistoryhypertensionMedical HistoryhyperlipidemiaMedical Historycovid urgical HistoryUlcer on left great toe W7Lxhiiqzt HistoryPartial amputation Right great toeurgical HistoryAll toes right foot amputated urgical HistoryLeft great toe corrective surgery [facility] [place]10/2022Hospitalization HistoryToe [id number] [employer] Other Chief complaint+Reason for visit Narrative* Chief Complaint no meter Reason for Visit BMI 50.0-59.9, adult Dietary counseling and surveillance Hypertension Mixed hyperlipidemia Type 2 diabetes mellitus with hyperglycemia [facility] Work Phone: Chiiv complaint+Reason for visit Narrative* Chief Complaint meter Reason for Visit BMI 50.0-59.9, adult Dietary counseling and surveillance Hypertension Mixed hyperlipidemia Type 2 diabetes mellitus with hyperglycemia Wound of left foot Wound of right foot [facility] Work Phone: Evaluation noteNo InformationNortSelect Specialty [facility] [employer] Other Evaluation note* Diagnosis Diabetic polyneuropathy associated with type 2 diabetes mellitus (CMS/HCC)- Primary Diabetic neuropathic arthropathy ([facility]/HCC) Type II or unspecified type diabetes mellitus with neurological manifestations, not stated as uncontrolled Type 2 diabetes mellitus with neurological manifestation ([facility]/HCC) 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, sequela ([facility]/HCC) Ulcer of foot due to type 2 diabetes mellitus ([facility]/HCC) Vitamin B 12 deficiency Other B-complex deficiencies Hx of diabetic neuropathy 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[facility]/HCC) Lipoprotein deficiencies Hypertriglyceridemia ([facility]/HCC) Pure hyperglyceridemia 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, 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) Essential hypertension Unspecified essential hypertension Nasal congestion Other diseases of nasal cavity and sinuses Type 2 diabetes mellitus with diabetic autonomic neuropathy, with long-term current use of insulin (CMS/HCC) [facility] (current) use of insulin (Z79.4) Acquired absence of other toe(s), unspecified side (Z89.429) Type 2 diabetes mellitus with diabetic neuropathy, with long-term current use of insulin ([facility]) Body mass index [BMI] 50.0-59.9, adult (Z68.43) Type 2 diabetes mellitus with foot ulcer, with long-term current use of insulin ([facility]) 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.49) Status post amputation of lesser toe, unspecified laterality ([facility]) Arthritis of left foot Acquired hallux valgus of left foot Type 2 diabetes mellitus with hyperglycemia, with long-term current use of insulin ([facility]) Morbid obesity ([facility]) Morbid obesity documented in this encounter [facility] HealthcareEvaluation noteNo assessment information availableSelect Medical Specialty [facility] Work Phone: Evaluation note* Diagnosis Onset Date Resolution Status BMI 50.0-59.9, adult acuteDietary counseling and surveillanceacuteHypertensionacuteMixed hyperlipidemiaacuteType 2 diabetes mellitus with hyperglycemiaacute [facility] Work Phone: Evaluation note* Diagnosis Onset Date Resolution Status BMI 50.0-59.9, adult acuteDietary counseling and surveillanceacuteHypertensionacuteMixed hyperlipidemiaacuteType 2 diabetes mellitus with hyperglycemiaacuteWound of left footacuteWound of right footacute [facility] Work Phone: Evaluation note* Diagnosis Pure hyperglyceridemia ([facility]) Pure hyperglyceridemia documented in this encounter [facility] HealthcareEvaluation note* Diagnosis Diabetic polyneuropathy associated with type 2 diabetes mellitus ([facility])- Primary Type 2 diabetes mellitus with neurological manifestation ([facility]) Essential hypertension Unspecified essential hypertension 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, subsequent encounter ([facility]) Type 2 diabetes mellitus with hyperglycemia, with long-term current use of insulin ([facility]) Dyslipidemia ([facility]) Other and unspecified hyperlipidemia Hypertriglyceridemia ([facility]) Pure hyperglyceridemia Vitamin B 12 deficiency Other B-complex deficiencies Pure hyperglyceridemia ([facility]) Pure hyperglyceridemia documented in this encounter [facility] HealthcareEvaluation note* Diagnosis Diabetic polyneuropathy associated with type 2 diabetes mellitus ([facility])- Primary Wellness examination Type 2 diabetes mellitus with neurological manifestation ([facility]) Essential hypertension Unspecified essential hypertension 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, subsequent encounter ([facility]) Dyslipidemia ([facility] Other and unspecified hyperlipidemia Hypertriglyceridemia ([facility]) Pure hyperglyceridemia Poorly controlled diabetes mellitus ([facility]) Type II or unspecified type diabetes mellitus without mention of complication, not stated as uncontrolled Type 2 diabetes mellitus with hyperglycemia, with long-term current use of insulin ([facility]) Diabetic autonomic neuropathy associated with type 2 diabetes mellitus ([facility]) Type II or unspecified type diabetes mellitus with neurological manifestations, not stated as uncontrolled Acquired hallux valgus, unspecified laterality Morbid obesity ([facility]) Morbid obesity Vitamin B 12 deficiency Other B-complex deficiencies 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[facility]) Lipoprotein deficiencies documented in this encounter [facility]* Diagnosis Essential hypertension Unspecified essential hypertension documented in this encounter [facility]Evaluation [facility]* Diagnosis Diabetic polyneuropathy associated with type 2 diabetes mellitus ([facility])- Primary Type 2 diabetes mellitus with neurological manifestation ([facility]) 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, sequela ([facility]) Type 2 diabetes mellitus with hyperglycemia, with long-term current use of insulin ([facility]) Ulcer of right foot, unspecified ulcer stage (HCC) ([facility]) Poorly controlled diabetes mellitus ([facility]) Type II or unspecified type diabetes mellitus without mention of complication, not stated as uncontrolled Dyslipidemia ([facility]) Other and unspecified hyperlipidemia Hypertriglyceridemia ([facility]) Pure hyperglyceridemia Essential hypertension Unspecified essential hypertension Morbid obesity ([facility]) Morbid obesity Vitamin B 12 deficiency Other B-complex deficiencies Depressed mood Insomnia, unspecified type documented in this encounter [facility]* Diagnosis 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)- Primary Essential hypertension Unspecified essential hypertension 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, sequela ([facility]-HCC) Morbid obesity ([facility]) Morbid obesity Hypertriglyceridemia Pure hyperglyceridemia documented in this encounter [facility]* Diagnosis Onset Date Resolution Status Admit Date BMI 50.0-59.9, adult acuteJuly 2024 9:51amDietary counseling and surveillanceacuteJuly 2024 9:51amHypertensionacuteJuly 2024 9:51amMixed hyperlipidemiaacuteJuly 2024 9:51amType 2 diabetes mellitus with hyperglycemiaacuteJuly 2024 9:51amWound of left footacuteJuly 2024 9:51amWound of right footacuteJuly 2024 9:51am [facility] Work Phone: Evaluation note* Diagnosis Wellness examination- [...] amputation of toe of right foot, sequela ([facility]-HCC) Arthritis of left foot Morbid obesity (CMS-HCC) [...] deficiencyacuteNov2024 9:46am Wound of right footacuteNov2024 9:46am [facility] Work Phone: Reason for referral (narrative)No reason for referral information availablePromedica [facility] Work Phone: Summary Purpose Family History [...] 9:46am Type 2 diabetes mellitus with hyperglyce knorad March 12, 2025 9:46am Vitamin B 12 deficiency March 12 9:46am Wound of right foot March 12, 2025 9 :46am Additional Source Comments (unrecognized sect ion and content) No Status Records FoundNo Status Records FoundNo Status Records FoundNo Status Records FoundNo Status Records Found INFORMATION SOURCE (unrecogn ized section and content) DATE CREATED AUTHOR 08/27/2021 [facility] [employer] DATE CREATED AUTHOR AUTHOR'S ORGANIZ ATION 10/17/2022 [facility] DATE CREATED AUTHOR AUTHOR'S ORGANIZ ATION 04/29/2024 [facility] DATE CREATED AUTHOR AUTHOR'S ORGANIZ ATION 02/01/2025 [facility] EPIC DATE CREATED AUTHOR AUTHOR'S [...] MemberRelationshipSpecialtyStart DateEnd Natalie Lafleur MD [address] [place] [address] PCP - [facility] Medicine09/15/22Team MemberRelationshipSpecialtyStart DateEnd Date Natalie Hernandez MD [address] [place] [facility] [place] [address] PCP - [facility] Medicine09/15/22 Team Status: Inactive Member Role [...] MemberRelationshipSpecialtyStart DateEnd Natalie Lafleur MD [address] [place] [facility] [place] [address] PCP - GeneralFamily Medicine09/15/22 Blossom Cody NP [address] [facility] [place] [address] Nurse PractitionerFaakly Medicine01/19/24Team MemberRelationshipSpecialtyStart DateEnd Date Natalie Hernandez MD [address] [facility] [place] [address] PCP - GeneralFamily Medicine09/15/22 Blossom Cody NP [address] [facility] [place] [address] Nurse Pract[facility]erSaint [facility] Medicine01/19/24Te MemberRelationshipSpecialtyStart DateEnd Date Natalie Hernandez MD [address] [facility] [place] [address] PCP - GeneralFami Medicine09/15/22 Blossom Cody NP [address] [facility] [place] [address] Nurse PractitionerSaint [facility] Medicine01/19/24Te MemberRelationshipSpecialtyStart DateEnd Date Natalie Hernandez MD [address] [facility] [place] [address] PCP - GeneralFatarav[facility] Medicine09/15/22 Blossom Cody NP [address] [facility] [place] [address] Nurse PractitionerSaint [facility] Medicine01/19/24Team MemberRelationshipSpecialtyStart DateEnd Date Natalie Hernandez MD [address] [place] [address] PCP - GeneralSaint [facility] Medicine09/15/22Team MemberRelationshipSpecialtyStart DateEnd Date Natalie Hernandez MD [address] [place] [address] PCP - GeneralSaint [facility] Medicine09/15/22Team MemberRelationshipSpecialtyStart DateEnd Date Natalie Hernandez MD [address] [place] [address] PCP - [facility]09/15/22 Blossom Cody NP [address] [place] [address] Nurse Pract[facility]erSt[facility]01/19/24Team MemberRelationshipSpecialtyStart DateEnd Date Natalie Hernandez MD [address] [place] [address] PCP - [facility] Medicine09/15/22 Blossom Cody NP [address] [place] [address] Nurse PractitionerSaint [facility] Medicine01/19/24Team MemberRelationshipSpecialtyStart DateEnd Date Natalie Hernandez MD [address] [place] [address] PCP - [facility]09/15/22 Blossom Cody NP [address] [place] [address] [facility]Mont[facility]01/19/24Team MemberRelationshipSpecialtyStart DateEnd Date Natalie Hernandez MD PCP - GeneralFamily Medicine09/15/22 Blossom Cody NP [facility]01/19/24Team MemberRelationshipSpecialtyStart DateEnd Date Natalie Hernandez MD PCP - GeneralFamily Medicine09/15/22 Blossom Cody NP [facility] Pract[facility]erSaint [facility] Medicine01/19/24 Team Status: Active Member Role Status Dates MATY TorresC Primary Care Provider Active Team Status: Inactive Member Role Status Dates Link Ortega APRN Attending Provider Active Start: November 27, 2024 End: November 27, 2024Sajuan Granados NP-[facility] Care ProviderActiveStart: November 27, 2024 End: November 27, 2024Team MemberRelationshipSpecialtyStart DateEnd Date Tres Oleary MD [address] [place] [address] PCP - Generalmily Medicine01/11/25 Blossom Cody NP Nurse PractitionerSt[facility]01/19/24Team MemberRelationshipSpecialtyStart DateEnd Date Tres Oleary MD [address] [place] [address] PCP - GeneralFamily Medicine01/11/25 Blossom Cody NP Nurse Pract[facility]erSaint [facility] Medicine01/19/24Team MemberRelationshipSpecialtyStart DateEnd Date Tres Oleary MD [address] [facility] [place] [address] PCP - GeneralFamily Medicine01/11/25 Blossom Cody NP Nurse PractitionerFamily Medicine01/19/24Team MemberRelationshipSpecialtyStart DateEnd Date Natalie Hernandez MD PCP - GeneralFamily Medicine Tres Oleary MD [address] [facility] [place] [address] PCP - GeneralFamily Medicine01/11/25 Blossom Cody NP Nurse Practitionermily Medicine01/19/24Team MemberRelationshipSpecialtyStart DateEnd Date Natalie Hernandez MD PCP - GeneralFamily Medicine Tres Oleary MD [address] [facility] [place] [address] PCP - GeneralFamily Medicine01/11/25 Blossom Cody NP Nurse Practitionermily Medicine01/19/24Team MemberRelationshipSpecialtyStart DateEnd Date Natalie Hernandez MD PCP - GeneralFamily Medicine Tres Oleary MD [address] [facility] [place] [address] PCP - GeneralFaakly Medicine01/11/25 Blossom Cody NP Nurse PractitionerFaakly Medicine01/19/24 Team Status: Active Member Role/Relationship Status [...] BE BASED ON THE PRIMARY CLINICAL RECORDS. [employer] [facility] provides no warranty or guarantee of the accuracy or completeness of information in this document.
== END 2025-05-09 09:55 | disposition home or self-care (01) ==
LOC: WC 09:55
PROVIDERS: PCP Family Medicine; Visit Provider Physician Assistant
DX: L84 Corns and callosities (principal); E11.65 Type 2 diabetes mellitus with hyperglycemia
CPT/HCPCS: G0463